=== PATIENT | male | born 1950 | race Caucasian/White ===

== ENCOUNTER → 2016-11-20 | Outpatient (CLI) | payer OTHER ==
[~2016-11-20] MED LIST: ACET1TAB84 PO; CIPR-255 PO; KETO2CRE14 TOP; METR-163 PO; NADO40TA PO; OXYC-57 PO; SNQ/25 PO
[2016-11-20 12:26] LABS: ALT/SGPT 19 U/L (12-78); BLOOD UREA NITROGEN 10 mg/dl (7-18); CALCIUM 8.4 mg/dl (8.5-10.1); CARBON DIOXIDE 24 mmol/L (21-32); CHLORIDE 109 mmol/L (98-107); CREATININE 0.93 mg/dl (0.60-1.40); GLUCOSE 118 mg/dl (70-99); POTASSIUM 3.9 mmol/L (3.5-5.1); SODIUM 143 mmol/L (136-145)
[2016-11-20 12:28] LABS: ALB/GLOB RATIO 0.7 (0.9-2); ALKALINE PHOSPHATASE 156 U/L (45-117); AST/SGOT 36 U/L (15-37)
== END | disposition home or self-care (01) ==
LOC: C.LAB 10:46
PROVIDERS: ATTEND Family Medicine
DX: I10 Essential (primary) hypertension (principal); E78.00 Pure hypercholesterolemia, unspecified

== ENCOUNTER → 2017-04-07 | Outpatient (CLI) | payer OTHER ==
[~2017-04-07] MED LIST changes: -METR-163 PO; -OXYC-57 PO
--- NOTE | 2017-04-07 07:45 | DIAGNOSTIC IMAGING REPORT ---
ULTRASOUND RIGHT UPPER QUADRANT ABDOMEN CLINICAL HISTORY: Cirrhosis. COMPARISON STUDY: Abdominal CT dated 07/14/2016. TECHNIQUE: Real-time, grayscale, and color flow sonography of the right upper quadrant of the abdomen was performed. Images are reviewed in the transverse and longitudinal planes. FINDINGS: Liver: The liver is cirrhotic in morphology and heterogeneous and echotexture. There is nodularity of the hepatic surface contour. There is no intrahepatic biliary ductal dilatation. There is no sonographic evidence of hepatic mass lesion. The main portal vein is patent. Gallbladder: The gallbladder is normal in appearance. No gallstones are identified. There is no gallbladder wall thickening or pericholecystic fluid. A sonographic Mcneill's sign is reportedly absent. The common bile duct measures up to 0.3 cm in diameter. Pancreas: Visualized portions of the pancreatic head and body are normal in appearance. The splenic vein is patent. Right kidney: Survey images of the right kidney demonstrate cortical atrophy. There is no hydronephrosis. Ascites: None. IMPRESSION: 1. The liver is cirrhotic in morphology and heterogeneous in echotexture. 2. No gallstones are identified. Electronically signed by: Anuj Dominguez M.D. 04/07/2017 7:44 AM Dictated Date/Time: 04/07/2017 7:42 AM
== END | disposition home or self-care (01) ==
LOC: C.ULTR 06:57
PROVIDERS: ATTEND Internal Medicine Gastroenterology
DX: K74.60 Unspecified cirrhosis of liver (principal)

== ENCOUNTER 2019-04-17 12:38 | Inpatient (IN) ==
--- OUTSIDE RECORDS SUMMARY | 2019-04-17 12:41 | External Medical Summary | Continuity of Care Document ---
:1950 Author Name Yocasta Leon, Provider Address Unavailable Unavailable , Care Team Providers Name Role Phone Jose Diez Unavailable [email or web address] ANDREA Leon, MARIFER Chirstie Unavailable Unavailable Unavailable Unavailable Unavailable Problems Decreased renal function (593.9) (N28.9) Cerebral vascular disease (437.9) (I67.9) Hematospermia (608.82) (R36.1) Raynaud's disease (443.0) (I73.00) Essential hypertension (401.9) (I10) Carotid atherosclerosis, bilateral (433.10) (I65.23) Hypercholesterolemia (272.0) (E78.00) Need for influenza vaccination (V04.81) (Z23) Right carotid bruit (785.9) (R09.89) Carotid artery stenosis, asymptomatic (433.10) (I65.29) Insomnia, persistent (307.42) (G47.00) Hyponatremia (276.1) (E87.1) Need for shingles vaccine (V04.89) (Z23) Special screening, prostate cancer (V76.44) (Z12.5) Need for hepatitis C screening test (V73.89) (Z11.59) 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) (N52.39) Osteoarthritis (715.90) (M19.90) Seborrheic dermatitis (690.10) (L21.9) Acid reflux disease (530.81) (K21.9) Suprapubic fullness (789.9) (R19.8) Alcoholic cirrhosis of liver (571.2) (K70.30) Enlarged gallbladder (575.8) (K82.8) Duodenal ulcer (532.90) (K26.9) Smokeless tobacco use (305.1) (Z72.0) Colonic polyp (211.3) (K63.5) Internal hemorrhoids (455.0) (K64.8) 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) Trigger ring finger of left hand (727.03) (M65.342) Vitamin D deficiency (268.9) (E55.9) Gout, joint (274.00) (M10.9) Allergies and Adverse Reactions Morphine Sulfate (Concentrate) SOLN (Allergy) Reaction: Other terazosin (Allergy) Reaction: Other traZODone HCl TABS (Allergy) Reaction: O ther Medications Propranolol HCl - 60 MG Oral Tablet; take 1 tablet by mouth every 12 hours Edward Flowers Start: 21-Sep-2018 Quantity: 60 Refills: 5 Furosemide 40 MG Oral Tablet; take 1 tab po daily SHAZIA Pina Start: 06-Mar-2015 Quantity: 60 Refills: 0 Shingrix 50 MCG Intramuscular Suspension Reconstituted; 0.5mL IM x1 at month 0 and then another at mo 2-6 for 2 total doses Edward Flowers Start: 18-Aug-2018 Quantity: 0.5 Refills: 1 Pantoprazole Sodium 40 MG Oral Tablet Delayed Release; One t ablet daily Start: 21-May-2016 Refills: 0 Tylenol Extra Strength 500 MG Oral Tablet Refills: 0 Ketoconazole 2 % External Cream; Apply t wice a day to affected areas for 4 weeks Edward Flowers Start: 11-Sep-2015 Quantity: 30 Refills: 1 Multiple Vitamins Oral Tablet; TAKE 1 TABLET DAILY. CA Ramirez Start: 06-Mar-2015 Quantity: 1 365 Tablet Bottle Refills: 0 Procedures History of Lung Surgery Status: Complete d History of Leg Repair Status: Completed History of Surgery Penis Status: Complet ed History of cataract surgery Status: Comp leted Immunizations Influenza On: 18-Sep-2012 12:09 Lot #: [id number], SANOFI PASTEUR HAV, HBV (Twinrix) On: 06-Mar-2015 17:05 Lot #: [id number], Weekend-[employer]-gogo CHRISTIAN HAV, HBV (Twinrix) On: 07-Apr-2015 9:20 Lot #: [id number], GLAXO MARSH CHRISTIAN HAV, HBV (Twinrix) On: 11-Sep-2015 9:55 Lot #: [id number], GLAXO MARSH CHRISTIAN Influenza On: 20-Nov-2015 Influenza On: 25-Jul-2016 11:11 Lot #: [id number], [employer] PASTEUR Prevnar 13 Intramuscular Suspension On: 09-Dec-2016 Zostavax 18065 UNT/0.65ML Subcutaneous Solution Reconstitute d On: 09-Dec-2016 Fluzone High-Dose Intramuscular Suspension On: 07-Jul-2017 9 :08 Lot #: [id number], SANOFI PASTEUR Pneumococcal polysaccharide vaccine, 23 valent On: 18-Aug-20 9:26 Lot #: [id number], [employer] Fluzone High-Dose 0.5 ML Intramuscular Suspension Pref illed Syringe On: 18-Aug-2018 9:27 Lot #: [id number], SANOFI PASTEUR Family History Father Family history of congestive heart failure (V17.49) (Z82.49) Status: Active Family history of glaucoma (V19.11) (Z83.511) Status: Active Family history of Status: Active Sister Family history of hypertension (V17.49) (Z82.49) Status: Act hu Social History - Smoking Status Former smoker Plan of Treatment Planned Encounters Appointment; Marifer Flowers M.D. Start: 16-Aug-2019 8:40 Req uest Planned Observations Planned Goals not documented Results No Known Results Results not documented Encounters Appointment; Marifer Flowers M.D. 15-Feb-2019 8:40 Encounter Diagnosis: Problem not documented Appointment; Marifer Flowers M.D. 18-Aug-2018 8:40 Encounter Diagnosis: Problem not documented Appointment; Mayito De Luna M.D. 11-Mar-2018 10:10 Encounter Diagnosis: Problem not documented Appointment; [facility], Studies NE1 13-Feb-2018 10:30 Encounter Diagnosis: Problem not documented Appointment; Marifer Flowers M.D. 12-Feb-2018 8:40 Encounter Diagnosis: Problem not documented Appointment; [facility] 16-Sep-2017 9:0 0 Encounter Diagnosis: Problem not documented Appointment; Marifer Flowers M.D. 13-Aug-2017 12:40 Encounter Diagnosis: Problem not documented Appointment; Marifer Flowers M.D. 07-Jul-2017 8:20 Encounter Diagnosis: Problem not documented Appointment; Marifer Flowers M.D. 16-Aug-2019 8:40 Encounter Diagnosis: Problem not documented
--- NOTE | 2019-04-17 13:22 | XRay Report ---
SINGLE VIEW CHEST CLINICAL HISTORY: Atypical chest pain. FINDINGS: An AP, portable, upright chest radiograph is compared to study dated 11/10/2015. The examina tion is degraded by portable technique and patient rotation. The cardiomediastinal silhouette is un remarkable noting atherosclerotic calcification of the thoracic aorta. Emphysema and chronic intersti tial thickening are similar to previous. There is chronic elevation of the right hemidiaphragm with a ssociated left basilar atelectasis. No large pleural effusion or pneumothorax is seen. The skeletal s tructures are osteopenic. There is chronic deformity of the right sided ribs. There are healed left p osterior rib fractures. IMPRESSION: 1. Emphysema. 2. No airspace consolidation or large pleural effusion is identified. Electronically signed by: Anuj Dominguez M.D. 04/17/2019 1:21 PM
[2019-04-17 13:37] LABS: Basophils # (auto) 0.05 K/uL (0-0.2); Basophils % (auto) 0.6 %; Eosinophils % (auto) 3.7 %; Hematocrit (blood only) 32.3 % (42-52); Hemoglobin 11.4 g/dL (14.0-18.0); Immature Granulocytes # (auto) 0.05 K/uL (0.00-0.02); Immature Granulocytes % (auto) 0.6 %; Lymphocytes # (auto) 1.47 K/uL (1.2-3.4); Lymphocytes % (auto) 17.9 %; Mean Corpuscular Hgb Conc 35.3 g/dL (32-36); Mean Corpuscular Volume 95.6 fL (80-100); Monocytes # (auto) 1.09 K/uL (0.11-0.59); Monocytes % (auto) 13.3 %; Neutrophils # (auto) 5.23 K/uL (1.4-6.5); Neutrophils % (auto) 63.9 %; Platelet Count 160 K/uL (130-400); RDW Coefficient of Variation 16.1 % (11.5-14.5); RDW Standard Deviation 55.9 fL (36.4-46.3); Red Blood Count 3.38 M/uL (4.7-6.1); White Blood Count 8.19 K/uL (4.8-10.8)
[2019-04-17 14:00] LABS: Albumin Globulin Ratio 0.4 (0.9-2); BUN Creatinine Ratio 14.5 (10-20); Bilirubin,Total 7.3 mg/dl (0.2-1); Calcium 7.6 mg/dl (8.5-10.1); Creatinine Clr Calc Pharmacy 88.3 ml/min; Est GFR (African American) 100.7; Est GFR (Non-African American) 86.9; Globulin 4.8 gm/dl (2.5-4.0); Magnesium 1.7 mg/dl (1.8-2.4); Phosphorus 2.9 mg/dl (2.5-4.9); Potassium 2.6 mmol/L (3.5-5.1); Total Protein 6.8 gm/dl (6.4-8.2); Troponin I 0.018 ng/ml (0-0.045)
[2019-04-17 14:06] LABS: Appearance Urine Clear (Clear); Bilirubin Urine Negative (Negative); Blood Urine Negative (Negative); Color Urine Dark Yellow; Glucose Urine UA Negative (Negative); Ketones Urine Negative (Negative); Leukocyte Esterase Urine Negative (Negative); Nitrite Urine Negative (Negative); Protein Urine Negative (Negative); Specific Gravity Urine 1.011 (1.000-1.030); Urobilinogen Urine Positive (Negative)
[2019-04-17 14:09] LABS: INR 1.5 (0.9-1.1); Prothrombin Time 15.1 Seconds (9.0-12.0)
[2019-04-17] MEDS ORDERED: IOVERSOL 100ml IV PRN (15:00)
[2019-04-17] MEDS ORDERED: MAGNESIUM SULFATE / D5W 1 GM/100 ML BAG IV ONE (15:05)
[2019-04-17] MEDS ORDERED: POTASSIUM CHLORIDE / WTR 10 MEQ/100 ML PLCT IV STA (15:05)
--- NOTE | 2019-04-17 15:30 | CT Scan Report ---
CT SCAN OF THE ABDOMEN AND PELVIS WITH IV CONTRAST CLINICAL HISTORY: Cirrhosis and ascites. COMPARISON STUDY: Abdominal CT dated 07/14/2016. TECHNIQUE: Following the IV administration of 94 cc of Optiray 320, CT scan of the abdomen and pelvi s is performed from the lung bases to the proximal femora. Images are reviewed in the axial, sagittal , and coronal planes. IV contrast was administered without complication. A dose lowering technique wa s utilized adhering to the principles of ALARA. CT DOSE: 1137.39 mGy.cm FINDINGS: Lung bases: The heart is normal in size and without pericardial effusion. The coronary arteries are d ensely calcified. Gynecomastia is noted. Emphysematous change is noted. There is bibasilar scarring/a telectasis. No airspace consolidation or pleural effusion is identified. There are esophageal varices . Liver: The contrast-enhanced liver is cirrhotic in morphology and heterogeneous in attenuation. There is nodularity of the hepatic surface contour. There is no intrahepatic biliary ductal dilatation. Th ere is near complete thrombosis of the main portal vein at and above the portosplenic confluence, bes t seen on image #162. There is associated cavernous transformation. The intrahepatic portal veins are patent. The hepatic veins are clear. Gallbladder: The gallbladder is distended. The gallbladder wall appears mildly thickened and hyperemi c. Spleen: The spleen is mildly enlarged, measuring 14.2 cm in length. Pancreas: Moderately atrophic and grossly unremarkable. Adrenal glands: Unremarkable. Kidneys: The contrast enhanced kidneys demonstrate mild cortical atrophy and are without hydronephros is. The kidneys enhance symmetrically. Abdominal vasculature: The abdominal aorta is normal in course and caliber noting advanced atheroscle rotic calcification. Stomach and bowel: The gastric wall appears significantly thickened and hyperemic. There is mild to m oderate colonic diverticulosis without CT evidence of acute diverticulitis. No bowel obstruction is s een. The appendix is well-visualized and normal. Peritoneum: There is no intraperitoneal free air. There is a large volume of abdominopelvic ascites. There are numerous perisplenic and gastric collaterals, as well as numerous omental and retroperitone al collaterals. There is an ascitic fluid containing umbilical hernia. Lymphadenopathy: None. Pelvic viscera: The bladder, prostate, and seminal vesicles are normal as imaged.. There is a right i nguinal hernia which contains ascitic fluid. A penile device is in place. The reservoir is located in the central pelvis. Skeletal structures: The skeletal structures are osteopenic. No lytic or blastic lesions are seen. Th ere is avascular necrosis of the femoral heads, right greater than left. IMPRESSION: 1. The liver is cirrhotic in morphology and heterogeneous in attenuation. 2. There is a large volume of abdominopelvic ascites and mild splenomegaly indicating portal hyperten mario. 3. There are esophageal varices, perigastric and perisplenic varices, as well as omental and retroper itoneal collateral vessels. 4. 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 The intrahepatic portal vessels are clear. 5. The gastric wall appears significantly thickened and hyperemic suggesting gastritis. Clinical robert elation will be required. This could be further assessed with endoscopy if clinically warranted. 6. The gallbladder is distended. Mild gallbladder wall thickening and hyperemia are nonspecific findi ngs and likely related to cirrhosis and ascites. Correlation with clinical findings and serum bilirub in levels will be required. 7. 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 8. Colonic diverticulosis without CT evidence of acute diverticulitis. 9. Emphysema. 10. Additional findings as above. Electronically signed by: Anuj Dominguez M.D. 04/17/2019 3:28 PM
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
[2019-04-17] MEDS ORDERED: ALUMINUM/MAGNESIUM SUSP 30 ML UDC PO PRN (18:24)
[2019-04-17] MEDS ORDERED: ONDANSETRON INJ 2 MG/ML 2 ML VIAL IV PRN (18:24)
[2019-04-17] MEDS: SODIUM CHLORIDE 0.9% 1000ML 1,000 ML IV SCH (19:18)
[2019-04-17] MEDS: CEFEPIME 1,000 MG in SYRINGE 0 ML IV SCH (19:20)
[2019-04-17] MEDS: POTASSIUM CHLORIDE / WTR 10 MEQ/100 ML PLCT IV SCH ×2 (19:25→20:47)
[2019-04-17] MEDS: CALCIUM GLUCONATE 10% 1,000 MG in SODIUM CHLORIDE 0.9% 50 ML IV SCH (19:28)
[2019-04-17] MEDS: PROPRANOLOL HCL 20 MG TAB PO SCH (19:33)
[2019-04-18] MEDS: CALCIUM GLUCONATE 10% 1,000 MG in SODIUM CHLORIDE 0.9% 50 ML IV SCH ×2 (00:59→06:28)
[2019-04-18] MEDS: CEFEPIME 1,000 MG in SYRINGE 0 ML IV SCH ×2 (03:08→11:23)
[2019-04-18 06:59] LABS: Basophils # (auto) 0.04 K/uL (0-0.2); Basophils % (auto) 0.6 %; Eosinophils % (auto) 4.5 %; Hematocrit (blood only) 30.7 % (42-52); Hemoglobin 10.6 g/dL (14.0-18.0); Immature Granulocytes # (auto) 0.02 K/uL (0.00-0.02); Immature Granulocytes % (auto) 0.3 %; Lymphocytes # (auto) 1.11 K/uL (1.2-3.4); Lymphocytes % (auto) 16.5 %; Mean Corpuscular Hgb Conc 34.5 g/dL (32-36); Mean Corpuscular Volume 95.3 fL (80-100); Mean Platelet Volume 10.1 fL (7.4-10.4); Monocytes # (auto) 1.01 K/uL (0.11-0.59); Neutrophils # (auto) 4.25 K/uL (1.4-6.5); Neutrophils % (auto) 63.1 %; Platelet Count 122 K/uL (130-400); RDW Coefficient of Variation 16.3 % (11.5-14.5); RDW Standard Deviation 56.4 fL (36.4-46.3); Red Blood Count 3.22 M/uL (4.7-6.1); White Blood Count 6.73 K/uL (4.8-10.8)
[2019-04-18 07:44] LABS: Albumin Globulin Ratio 0.4 (0.9-2); Albumin Level 1.8 gm/dl (3.4-5.0); BUN Creatinine Ratio 14.6 (10-20); Bilirubin,Total 6.4 mg/dl (0.2-1); Calcium 7.7 mg/dl (8.5-10.1); Creatinine Clr Calc Pharmacy 96.1 ml/min; Est GFR (African American) 105.5; Globulin 4.3 gm/dl (2.5-4.0); Magnesium 1.8 mg/dl (1.8-2.4); Potassium 2.6 mmol/L (3.5-5.1); Total Protein 6.1 gm/dl (6.4-8.2)
[2019-04-18] MEDS ORDERED: POTASSIUM CHLORIDE 20 MEQ TABCR PO STA (07:49)
[2019-04-18] MEDS: MAGNESIUM OXIDE 400 MG TAB PO SCH ×2 (08:19→21:00)
[2019-04-18] MEDS: POTASSIUM CHLORIDE 20 MEQ TABCR PO SCH ×3 (08:19→21:00)
[2019-04-18] MEDS: PROPRANOLOL HCL 20 MG TAB PO SCH ×2 (08:19→21:00)
[2019-04-18] MEDS: PANTOprazole 40 MG TAB PO SCH (08:19)
--- NOTE | 2019-04-18 08:40 | Family Medicine Progress Note ---
Date of Service April 18, 2019 Assessment & Plan (1) Portal vein thrombosis: Mr. Fortune is a 68yo with a PMHx of significant for alcoholic cirrhosis who presented with an acute exacerbation of his lower extremity edema and increasing abdominal girth. He was found to have portal vein thrombosis. PORTAL VEIN THROMBOSIS -Noted on CT, thrombus in main portal vein -likely cause of presenting symptoms -GI on board, per recs will refrain from anticoagulation given need for EGD on 04/19 -likely contributing to new onset esophageal, perigastric and perisplenic varices also noted on CT -will continue to monitor ASCITES/CIRRHOSIS -Ascites likely increasing due to thrombus in portal vein -Last drink was 5 years ago. -GI to perform possible paracentesis 04/19 -SBP empiric treatment with cefepime originally, now changed to Rocephin -No current peritoneal signs, afebrile -will continue to monitor VARICES (esophageal, perigastric, perisplenic) -Noted on CT, new onset, likely due to thrombosis -No signs of bleeding currently (BP normal, nontachycardic, H/H stable) -EGD to be done 04/19, appreciate GI recs -continue propranolol, PPI -will continue to monitor ELECTROLYTE ABNORMALITIES (HYPOKALEMIA, HYPOCALCEMIA, HYPOMAGNESEMIA) -replace as needed -likely cause of mild QT prolongation noted on admission (486). Continue daily EKGs -Will continue to monitor electrolyte levels DVT proph: SCDs FEN/GI: low sodium diet CODE STATUS: FULL Supervising Physician Co-Signing Physician Notes I personally examined the patient and verified all lebron points of history and exam, discussed case, and agree with decision making with Dr Lazcano. feeling ok. discussed w GI, input greatly appreciated. vitals noted nad breathing unlabored abd swollen no pallor mild icterus good sense of humor cirrhosis/ascites - abrupt worsening appearing related to portal thrombosis - covering for SBP as this is a possibility too, but seems most likely to be portal vein thrombosis related. scopes and paracentesis tomorrow then if not high risk would start anticoagulation. approaching long qt - replace K, mag. follow Subjective Mr. Fortune states he came to the ED because he noted that he was swollen but his urine was dark. Still feels bloated and feels like his abdominal distention has been increasing. Denies fevers, chills or night sweats, chest pain, SOB or palps. Review of Systems Review of Systems: All systems reviewed & are unremarkable except as noted in HPI & below Physical Exam Physical Exam: General: Alert, oriented. No acute distress HEENT: NC/AT, no yellowing of sclera noted. Chest: Nontender to palpation. CV: RRR, Normal s1, s2. No murmurs appreciated Resp: Breath sounds clear bilaterally with some fine crackles at right base. Abdomen: Soft, nontender, distended. No guarding. No organomegaly appreciated. Extremities: +1 edema, no calf tenderness bilaterally Results & Data Vital Signs (Past 12 Hours) Vital Signs Temp Pulse Resp BP BP Pulse Ox 04/18/19 07:39 36.7 C 70 18 142/68 H 93 04/18/19 03:11 36.9 C 71 18 124/57 L 94 04/17/19 23:32 36.9 C 71 20 120/62 92 Laboratory Results Laboratory Results - last 24 hr 04/17/19 04/17/19 04/17/19 13:16 13:16 13:16 WBC 8.19 RBC 3.38 L Hgb 11.4 L Hct 32.3 L MCV 95.6 MCH 33.7 MCHC 35.3 RDW Std Deviation 55.9 H RDW Coeff of Ramses 16.1 H Plt Count 160 MPV 10.0 Immature Gran % (Auto) 0.6 Neut % (Auto) 63.9 Lymph % (Auto) 17.9 [place] % (Auto) 13.3 Eos % (Auto) 3.7 Baso % (Auto) 0.6 Immature Gran # (Auto) 0.05 H Neut # (Auto) 5.23 Lymph # (Auto) 1.47 [place] # (Auto) 1.09 H Eos # (Auto) 0.30 Baso # (Auto) 0.05 PT 15.1 H INR 1.5 H Sodium 135 L Potassium 2.6 L Chloride 94 L Carbon Dioxide 32 Anion Gap 10.0 BUN 13 Creatinine 0.91 Est Cr Clr Drug Dosing 88.3 Est GFR ( Amer) 100.7 Est GFR (Non-Af Amer) 86.9 BUN/Creatinine Ratio 14.5 Glucose 91 Calcium 7.6 L Phosphorus 2.9 Magnesium 1.7 L Total Bilirubin 7.3 H Direct Bilirubin AST 42 H ALT 13 Alkaline Phosphatase 140 H Troponin I 0.018 NT-Pro-B Natriuret Pep 767 Total Protein 6.8 Albumin 2.0 L Globulin 4.8 H Albumin/Globulin Ratio 0.4 L Lipase 203 Specimen Hemolysis Urine Color Urine Appearance Urine pH Ur Specific [place] Urine Protein Urine Glucose (UA) Urine Ketones Urine Blood Urine Nitrite Urine Bilirubin Urine Urobilinogen Ur Leukocyte Esterase Ethyl Alcohol mg/dL 04/17/19 04/17/19 04/18/19 13:17 13:50 06:46 WBC 6.73 RBC 3.22 L Hgb 10.6 L Hct 30.7 L MCV 95.3 MCH 32.9 MCHC 34.5 RDW Std Deviation 56.4 H RDW Coeff of Ramses 16.3 H Plt Count 122 L MPV 10.1 Immature Gran % (Auto) 0.3 Neut % (Auto) 63.1 Lymph % (Auto) 16.5 [place] % (Auto) 15.0 Eos % (Auto) 4.5 Baso % (Auto) 0.6 Immature Gran # (Auto) 0.02 Neut # (Auto) 4.25 Lymph # (Auto) 1.11 L [place] # (Auto) 1.01 H Eos # (Auto) 0.30 Baso # (Auto) 0.04 PT INR Sodium Potassium Chloride Carbon Dioxide Anion Gap BUN Creatinine Est Cr Clr Drug Dosing Est GFR ( Amer) Est GFR (Non-Af Amer) BUN/Creatinine Ratio Glucose Calcium Phosphorus Magnesium Total Bilirubin Direct Bilirubin AST ALT Alkaline Phosphatase Troponin I NT-Pro-B Natriuret Pep Total Protein Albumin Globulin Albumin/Globulin Ratio Lipase Specimen Hemolysis Urine Color Dark Yellow Urine Appearance Clear Urine pH 7.0 Ur Specific [place] 1.011 Urine Protein Negative Urine Glucose (UA) Negative Urine Ketones Negative Urine Blood Negative Urine Nitrite Negative Urine Bilirubin Negative Urine Urobilinogen Positive H Ur Leukocyte Esterase Negative Ethyl Alcohol mg/dL < 3.0 04/18/19 06:46 WBC RBC Hgb Hct MCV MCH MCHC RDW Std Deviation RDW Coeff of Ramses Plt Count MPV Immature Gran % (Auto) Neut % (Auto) Lymph % (Auto) [place] % (Auto) Eos % (Auto) Baso % (Auto) Immature Gran # (Auto) Neut # (Auto) Lymph # (Auto) [place] # (Auto) Eos # (Auto) Baso # (Auto) PT INR Sodium 135 L Potassium 2.6 L Chloride 95 L Carbon Dioxide 35 H Anion Gap 5.0 BUN 12 Creatinine 0.83 Est Cr Clr Drug Dosing 96.1 Est GFR ( Amer) 105.5 Est GFR (Non-Af Amer) 91.0 BUN/Creatinine Ratio 14.6 Glucose 81 Calcium 7.7 L Phosphorus Magnesium 1.8 Total Bilirubin 6.4 H Direct Bilirubin AST 36 ALT 12 Alkaline Phosphatase 123 H Troponin I NT-Pro-B Natriuret Pep Total Protein 6.1 L Albumin 1.8 L Globulin 4.3 H Albumin/Globulin Ratio 0.4 L Lipase Specimen Hemolysis Urine Color Urine Appearance Urine pH Ur Specific [place] Urine Protein Urine Glucose (UA) Urine Ketones Urine Blood Urine Nitrite Urine Bilirubin Urine Urobilinogen Ur Leukocyte Esterase Ethyl Alcohol mg/dL Medications Administered Home Medications acetaminophen [Tylenol Extra Strength] 1,000 mg PO DAILY 01/19/19 [History Confirmed 04/17/19] furosemide 40 mg PO QAM 01/19/19 [History Confirmed 04/17/19] multivitamin 1 tab PO WK 01/19/19 [History Confirmed 04/17/19] pantoprazole 40 mg PO QAM 01/19/19 [History Confirmed 04/17/19] propranolol 60 mg PO BID 01/19/19 [History Confirmed 04/17/19] Active Medications Al Hydrox/Mg Hydrox/Simethicone (Maalox) 15 ml PO Q4H PRN PRN Reason: Dyspepsia Stop: 05/17/19 18:23 Sodium Chloride (Nss 1000ml) 1,000 mls @ 60 mls/hr IV .[id number] DAVEY Stop: 05/17/19 18:23 Last Admin: 04/17/19 19:18 Dose: 60 mls/hr Documented by: Cefepime HCl 1,000 mg/ Syringe 11.3 mls @ 5.5 mls/min IV Q8H DAVEY; Protocol Stop: 04/27/19 18:59 Last Admin: 04/18/19 03:08 Dose: 5.5 mls/min Documented by: Ioversol (Optiray 320 100ml) 94 ml IV ONCE PRN PRN Reason: Interaction Checking Stop: 04/21/19 14:59 Last Admin: 04/17/19 15:00 Dose: 1 ml Documented by: Magnesium Oxide (Mag-Ox) 400 mg PO BID [facility] Stop: 04/19/19 07:59 Last Admin: 04/18/19 08:19 Dose: 400 mg Documented by: Multivitamins (Multivitamin Tab) 1 tab PO Mo@0900 [facility] Stop: 05/19/19 08:59 Ondansetron HCl (Zofran) 4 mg IV Q6H PRN PRN Reason: Nausea Stop: 05/17/19 18:23 Pantoprazole Sodium (Protonix) 40 mg PO QAM [facility] Stop: 05/18/19 08:59 Last Admin: 04/18/19 08:19 Dose: 40 mg Documented by: Potassium Chloride (Klor-Con M20) 20 meq PO TID [facility] Stop: 04/19/19 07:59 Last Admin: 04/18/19 08:19 Dose: 20 meq Documented by: Propranolol HCl (Inderal) 60 mg PO BID [facility] Stop: 05/17/19 20:59 Last Admin: 04/18/19 08:19 Dose: 60 mg Documented by: PG Care Time/CCT Total # of Minutes Spent Total Time Spent with Patient: Total time spent is greater than 50% in loan coordinator rdination of care (as documented) at patient's floor/unit and/or counseling patient: Resident Activity Tracking Resident Involvement: Resident Care Provided Care Provided: Adult Hospital Medicine
[2019-04-18] MEDS: SODIUM CHLORIDE 0.9% 1000ML 1,000 ML IV SCH (11:23)
[2019-04-18] MEDS ORDERED: cefTRIAXone SODIUM 1,000 MG in DEXTROSE 5% 50 ML IV SCH (14:00)
[2019-04-18] MEDS: cefTRIAXone SODIUM 2,000 MG in DEXTROSE 5% 50 ML IV SCH (14:25)
--- NOTE | 2019-04-18 15:04 | Gastroenterology Progress Note ---
Date of Service April 18, 2019 Assessment & Plan (1) Ascites: Recommend abx to cover SBP and diagnostic and therapeutic tap on friday. PV thrombosis--chronic and may benefit from anticoagulation but would recommend EGD friday to assess size of varice and see is any stomach pathology to assess risk of anticoagulation varices--EGD friday stomach thickening--EGD friday hx of esophagitis and duodenitis--po ppi ETOH cirrhosiis--not drinking Discussed redommendations with DR Soni and residents. Subjective cc f/u asctes, and PV thrombosis HPI Pt denies abd pain. He has some shortness of breath secondary to large abdomen. Middle daughter present for H and P. Review of Systems Respiratory: + dyspnea secondary to ascites abd girth Cardiovascular: no chest pain Physical Exam Constitutional: WD/WN, vitals as above Respiratory: normal respiratory effort, lungs clear to auscultation Cardiovascular: Rate/Rhythm: regular rate and regular rhythm Gastrointestinal (Abdomen): abd pos bs, protuberant but not tense, no guarding nor rebound Results & Data Vital Signs (Past 12 Hours) Vital Signs Temp Pulse Pulse Resp BP Pulse Ox 04/18/19 11:47 36.5 C 69 24 124/60 91 04/18/19 07:39 36.7 C 70 18 142/68 H 93 04/18/19 07:15 70 04/18/19 03:11 36.9 C 71 18 124/57 L 94 (1) Ascites Ascites type: due to alcoholic cirrhosis Qualified Code(s): K70.31 - Alcoholic cirrhosis of liver with ascites
[2019-04-19] MEDS: SODIUM CHLORIDE 0.9% 1000ML 1,000 ML IV SCH ×2 (04:30→17:37)
[2019-04-19 06:39] LABS: Basophils # (auto) 0.06 K/uL (0-0.2); Eosinophils # (auto) 0.35 K/uL (0-0.5); Eosinophils % (auto) 5.6 %; Hematocrit (blood only) 29.3 % (42-52); Immature Granulocytes # (auto) 0.02 K/uL (0.00-0.02); Immature Granulocytes % (auto) 0.3 %; Lymphocytes # (auto) 1.35 K/uL (1.2-3.4); Lymphocytes % (auto) 21.7 %; Mean Corpuscular Hgb Conc 34.1 g/dL (32-36); Mean Platelet Volume 9.5 fL (7.4-10.4); Monocytes # (auto) 0.93 K/uL (0.11-0.59); Neutrophils % (auto) 56.4 %; Platelet Count 113 K/uL (130-400); RDW Coefficient of Variation 16.5 % (11.5-14.5); RDW Standard Deviation 58.1 fL (36.4-46.3); Red Blood Count 3.02 M/uL (4.7-6.1); White Blood Count 6.21 K/uL (4.8-10.8)
[2019-04-19 06:47] LABS: INR 1.7 (0.9-1.1); Prothrombin Time 16.4 Seconds (9.0-12.0)
[2019-04-19 07:16] LABS: Albumin Level 1.7 gm/dl (3.4-5.0); BUN Creatinine Ratio 13.1 (10-20); Calcium 7.4 mg/dl (8.5-10.1); Creatinine Clr Calc Pharmacy 95.8 ml/min; Est GFR (Non-African American) 90.6; Magnesium 1.9 mg/dl (1.8-2.4); Potassium 3.1 mmol/L (3.5-5.1)
[2019-04-19 07:17] LABS: Albumin Globulin Ratio 0.4 (0.9-2); Bilirubin,Total 4.5 mg/dl (0.2-1); Total Protein 5.7 gm/dl (6.4-8.2)
[2019-04-19] MEDS: PROPRANOLOL HCL 20 MG TAB PO SCH ×2 (08:26→19:37)
[2019-04-19] MEDS: PANTOprazole 40 MG TAB PO SCH (08:26)
[2019-04-19] MEDS ORDERED: MULTIVITAMIN TAB PO SCH (09:00)
[2019-04-19] MEDS: ALBUMIN 25% 50 ML IV SCH ×2 (11:02→12:00)
--- NOTE | 2019-04-19 11:53 | Ultrasound Report ---
ULTRASOUND-GUIDED DIAGNOSTIC AND THERAPEUTIC PARACENTESIS: HISTORY: Ascites. Procedure: The procedure and its risks, benefits and alternatives were discussed with the patient and written informed consent was obtained. Preliminary ultrasound of the abdomen was performed to determ ine a safe needle entry site. The right lower quadrant was prepped and draped in the usual sterile fashion. 1% Lidocaine was used f or local anesthesia. A paracentesis needle-sheath was inserted into the peritoneal space using ultras ound guidance. The needle was removed and the sheath was connected to tubing and a vacuum suction dev ice. A total of 6 liters of yellow ascites was aspirated. The sheath was removed and a sterile dressi ng applied. The patient tolerated the procedure well and there were no immediate complications. IMPRESSION: Ultrasound-guided therapeutic and diagnostic paracentesis with aspiration of 6 liters of ascites. Electronically signed by: Celestino Oconnor M.D. 04/19/2019 11:52 AM
[2019-04-19 12:15] LABS: Albumin Peritoneal Fluid < 0.6 g/dl; Total Protein Peritoneal Fluid 1.1 g/dl
[2019-04-19 12:50] LABS: Appearance Peritoneal Fluid HAZY; Color Peritoneal Fluid YELLOW; Mononuclear WBC Peritoneal 86.3 %; Polynuclear WBC Peritoneal 13.7 %; RBC Peritoneal Fluid (A) < 3000 /uL; WBC Peritoneal Fluid (A) 211 /ul (0-300)
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
[2019-04-19] MEDS ORDERED: fentaNYL citrate 100 MCG/2 ML VIAL ONE (15:36)
[2019-04-19] MEDS ORDERED: LIDOCAINE HCL 2% 2 ML VIAL/AMP(20MG/ML) INFIL ONE (15:38)
[2019-04-19] MEDS ORDERED: PROPOFOL IV EMULSION 10 MG/ML 20 ML VIAL IV ONE (15:38)
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
--- NOTE | 2019-04-19 16:01 | GI REPORT ---
Patient Name: Nicolás Fortune Procedure Date: 04/19/2019 3:51 PM Date of : 1950 Admit Type: Inpatient Age: 68 Gender: Male Attending MD: Yobany Agrawal MD Procedure: Upper GI endoscopy Providers: Yobany Agrawal MD Referring MD: Emily Koroma Indications: Cirrhosis Medicines: Propofol total dose 120 mg IV, Lidocaine 80 mg IV Complications: No immediate complications. Estimated Blood Loss: Estimated blood loss: none. Procedure: Pre-Anesthesia Assessment: - Prior to the procedure, a History and Physical was performed, and patient medications, allergies and sensitivities were reviewed. The patient's tolerance of previous anesthesia was reviewed. - The risks and benefits of the procedure and the sedation options and risks were discussed with the patient. All questions were answered and informed consent was obtained. After obtaining informed consent, the endoscope was passed under direct vision. Throughout the procedure, the patient's blood pressure, pulse, and oxygen saturations were monitored continuously. The Endoscope was introduced through the mouth, and advanced to the second part of duodenum. The upper GI endoscopy was accomplished without difficulty. The patient tolerated the procedure well. Findings: No varices. The Z-line was regular and was found 41 cm from the incisors. Diffuse moderately erythematous mucosa without bleeding was found in the entire examined stomach. The examined duodenum was normal. Impression: - Z-line regular, 41 cm from the incisors. - Erythematous mucosa in the stomach. - Normal examined duodenum. - No specimens collected. Recommendation: - Return patient to [facility] for [facility] care. Yobany Agrawal M.D. Yobany Agrawal MD 04/19/2019 4:00:54 PM This report has been signed electronically. Note Initiated On: 04/19/2019 3:51 PM Number of Addenda: 0 I attest to the content of the Intraoperative Record and orders documented therein, exceptions below {[id number]}
--- NOTE | 2019-04-19 16:09 | Anesthesiology Progress Note ---
Date of Service April 19, 2019 Anesthesia Post Procedure Vital Signs Vital Signs: Temp Pulse Resp BP Pulse Ox 04/19/19 14:47 37.0 C 64 18 123/67 100 04/19/19 11:06 36.6 C 63 17 124/58 L 95 04/19/19 07:41 36.9 C 67 18 121/58 L 93 04/19/19 04:19 37.0 C 66 21 113/61 95 04/18/19 23:45 37.3 C 69 21 113/60 92 04/18/19 19:43 37.1 C 73 16 109/54 L 92 Transfer of Care Handoff Completed per policy Notes Mental Status: alert / awake / arousable Patient Amnestic to Procedure: Yes Nausea / Vomiting: adequately controlled Pain: adequately controlled Airway Patency, RR, SpO2: stable & adequate BP & HR: stable & adequate Hydration State: stable & adequate Anesthetic Complications: no major complications apparent
--- NOTE | 2019-04-19 16:38 | Progress Note ---
DATE: 04/19/2019 The patient has portal vein thrombosis and ascites. He underwent an EGD today to assess his esophageal varices before considering a blood thinner for the portal vein thrombosis. Laboratory shows hemoglobin of 10.0, platelet count 113,000, bilirubin is 4.5, albumin 1.7. Peritoneal fluid analysis shows albumin of less than 0.6 g/dL. Peritoneal white cell total is 211 indicating this transudate. EGD today showed no esophageal varices. He does have some portal hypertensive gastropathy. The plan is to consult Hematology to help decide which blood thinner to place him on given his cirrhosis and portal vein thrombosis.
--- NOTE | 2019-04-19 16:58 | Family Medicine Progress Note ---
Date of Service April 19, 2019 Assessment & Plan (1) Portal vein thrombosis: Nicolás Fortune is a 68-year-old male with a past medical history of alcoholic cirrhosis, alcohol abuse in remission for 5 years, and hypertension who presented with increasing lower extremity edema and ascites. He was found to have chronic portal vein thrombosis. Portal vein thrombosis CTabdomen shows main portal vein thrombus, likely chronic GI consulted, performed paracentesis and EGD today. EGD shows no esophageal varices and a diffuse moderately erythematous gastric mucosa without active bleeding and normal duodenum. Paracentesis was performed with removal of 6 L of ascitic fluid and sent for diagnostic study Given that his thrombosis appears chronic, you may or may not benefit from an anticoagulation regimen. Hematology consulted by GI for anticoagulation recommendations, consult pending. Appreciate recommendations. Ascites Secondary to alcohol abuse in remission empiric SBP treatment with cefepime narrowed to Rocephin 2 g daily. No history of SBP. No signs of SBP. Unclear trigger to acute worsening, no dietary indiscretion per patient. Follow diagnostic tap. Greatly improved following paracentesis. No signs of bleeding. Was on Lasix 40 mg p.o. daily prior to admission. Can consider increasing or balancing with spironolactone increased ascitic control Continue to follow pressures in the setting of ascitic fluid loss, is been receiving albumin 50 mils per hour x2. Esophageal, perigastric, perisplenic varices noted on CT No signs of bleeding at this time, no varices noted on EGD Continue propranolol 60 mg twice daily - Pantoprazole 40 mg daily Hypokalemia Mg 1.9 - K 3.1 today. Replete with potassium chloride 20 MeQ PO BID - MagOx 400mg qHS DVT prophylaxis: SCDs, anticoagulation FEN/GI: Sodium restricted diet Code Status: Full (2) Ascites: (3) Cirrhosis: (4) Hypokalemia: (5) Encounter for pre-operative examination: (6) Hypocalcemia: (7) DVT prophylaxis: (8) Hypomagnesemia: Supervising Physician Co-Signing Physician Notes Resident Physician Supervision Note: I independently interviewed and examined the patient and verified the lebron history and physical, reviewed labs and image studies, discussed the case with the resident Dr. Mast and agree with the findings and care plan. Subjective Nicolás reports he feels okay today. He reports he feels bloated, and has felt bloated for several weeks. He denies pain. He says he is not short of breath, but can tell if the fluid in his abdomen somewhat limits a deep full breath. His last paracentesis was years ago. He denies any abdominal pain, nausea, bleeding, chest pain, dyspnea, lightheadedness. He is awaiting paracentesis. He denies any recent change in diet or other factors which may have contributed to his increased ascites. No questions or concerns at time of visit Review of Systems Review of Systems: Constitutional: Denies fever, chills, malaise Eyes: Denies vision change ENT: Denies ear pain, sore throat, sinus pain Cardiovascular: Denies Chest pain, chest pressure, palpitations. Endorses some bilateral ankle swelling. Respiratory: Denies shortness of breath, cough, sputum production, difficulty breathing Gastrointestinal: Denies abdominal pain, nausea, vomiting. Endorses abdominal swelling. Genitourinary: Denies pain with urination, urinary urgency, urinary frequency Musculoskeletal: Denies weakness, muscle aches/pain, joint aches/pain Integumentary:Denies rash, lesions, bruising Neurological: Denies headache, numbness, tingling, focal weakness Physical Exam Physical Exam: General: A&Ox3. NAD. Cooperative. HEENT: Atraumatic, normocephalic. Pulm: CTAB A&P. -wheezes, -rales, -rhonchi. Symmetrical chest rise. No increase work of breathing. No respiratory distress. Cardiac: RRR, -mrg. Radial pulses intact and symmetrical. Abdominal: Distended, fluid wave present. Nontender. Extremity: Trace ankle edema bilaterally. No pain. No change lower extremity circumference equal and without warmth or erythema. Results & Data Vital Signs (Past 12 Hours) Vital Signs Temp Pulse Resp BP Pulse Ox 04/19/19 16:31 65 18 127/61 95 04/19/19 16:16 66 18 130/69 94 04/19/19 16:01 37.0 C 66 18 113/65 94 04/19/19 14:47 37.0 C 64 18 123/67 100 04/19/19 11:06 36.6 C 63 17 124/58 L 95 04/19/19 07:41 36.9 C 67 18 121/58 L 93 PG Care Time/CCT Total # of Minutes Spent Total Time Spent with Patient: Total time spent is greater than 50% in coordination of care (as documented) at patient's floor/unit and/or counseling p atient: Resident Activity Tracking Resident Involvement: Resident Care Provided Care Provided: Adult Hospital Medicine (1) Ascites Ascites type: due to alcoholic cirrhosis Qualified Code(s): K70.31 - Alcoholic cirrhosis of liver with ascites (2) Cirrhosis Ascites presence: with ascites Hepatic cirrhosis type: unspecified hepatic cirrhosis Qualified Code(s): K74.60 - Unspecified cirrhosis of liver; R18.8 - Other ascites
[2019-04-19] MEDS ORDERED: Heparin IV Standard *NO* Bolus IV SCH (17:15)
[2019-04-19] MEDS: cefTRIAXone SODIUM 2,000 MG in DEXTROSE 5% 50 ML IV SCH (17:35)
[2019-04-19] MEDS: POTASSIUM CHLORIDE 10 MEQ TABCR PO SCH ×2 (17:37→19:37)
[2019-04-19] MEDS ORDERED: Heparin Adult STANDARD Wt-Based Dextrose 5% 25,000 units/500 mL IV SCH (18:45)
[2019-04-19 19:12] LABS: Partial Thromboplastin Ratio 1.4; Partial Thromboplastin Time 37.4 Seconds (21.0-31.0)
[2019-04-19] MEDS ORDERED: MAGNESIUM OXIDE 400 MG TAB PO SCH (21:00)
[2019-04-20 01:36] LABS: Basophils # (auto) 0.04 K/uL (0-0.2); Basophils % (auto) 0.7 %; Eosinophils # (auto) 0.38 K/uL (0-0.5); Eosinophils % (auto) 6.7 %; Hematocrit (blood only) 28.2 % (42-52); Hemoglobin 9.6 g/dL (14.0-18.0); Immature Granulocytes # (auto) 0.03 K/uL (0.00-0.02); Immature Granulocytes % (auto) 0.5 %; Lymphocytes % (auto) 22.8 %; Mean Corpuscular Volume 96.6 fL (80-100); Mean Platelet Volume 9.8 fL (7.4-10.4); Monocytes # (auto) 0.73 K/uL (0.11-0.59); Monocytes % (auto) 12.8 %; Neutrophils # (auto) 3.21 K/uL (1.4-6.5); Neutrophils % (auto) 56.5 %; Platelet Count 106 K/uL (130-400); RDW Coefficient of Variation 16.4 % (11.5-14.5); RDW Standard Deviation 57.7 fL (36.4-46.3); Red Blood Count 2.92 M/uL (4.7-6.1); White Blood Count 5.69 K/uL (4.8-10.8)
[2019-04-20 01:53] LABS: Albumin Level 1.8 gm/dl (3.4-5.0); BUN Creatinine Ratio 12.5 (10-20); Calcium 7.3 mg/dl (8.5-10.1); Creatinine Clr Calc Pharmacy 107.3 ml/min; Est GFR (Non-African American) 94.9; Magnesium 1.9 mg/dl (1.8-2.4); Potassium 3.4 mmol/L (3.5-5.1)
[2019-04-20 02:01] LABS: Albumin Globulin Ratio 0.5 (0.9-2); Bilirubin,Total 4.4 mg/dl (0.2-1); Globulin 3.7 gm/dl (2.5-4.0); Total Protein 5.5 gm/dl (6.4-8.2)
[2019-04-20 02:27] LABS: INR 1.8 (0.9-1.1); Prothrombin Time 17.8 Seconds (9.0-12.0)
[2019-04-20 02:28] LABS: Partial Thromboplastin Ratio > 5.1
[2019-04-20 02:29] LABS: Partial Thromboplastin Time > 139.0 Seconds (21.0-31.0)
[2019-04-20 04:33] LABS: Partial Thromboplastin Ratio > 5.1
[2019-04-20 04:39] LABS: Partial Thromboplastin Time > 139.0 Seconds (21.0-31.0)
[2019-04-20 05:44] LABS: Partial Thromboplastin Ratio > 5.1
[2019-04-20 05:49] LABS: Partial Thromboplastin Time > 139.0 Seconds (21.0-31.0)
[2019-04-20 06:44] LABS: Partial Thromboplastin Ratio 3.4
[2019-04-20 07:08] LABS: Partial Thromboplastin Time 92.5 Seconds (21.0-31.0)
--- NOTE | 2019-04-20 08:05 | Anesthesiology Progress Note ---
Date of Service April 20, 2019 Anesthesia Post Procedure Vital Signs Vital Signs: Temp Pulse Resp BP Pulse Ox 04/20/19 03:55 36.8 C 67 19 111/55 L 97 04/19/19 23:41 36.8 C 69 20 110/51 L 90 04/19/19 19:42 36.9 C 65 19 107/56 L 92 04/19/19 17:00 37.1 C 65 19 122/65 96 04/19/19 16:31 65 18 127/61 95 04/19/19 16:16 66 18 130/69 94 04/19/19 16:01 37.0 C 66 18 113/65 94 04/19/19 14:47 37.0 C 64 18 123/67 100 04/19/19 11:06 36.6 C 63 17 124/58 L 95 Notes Mental Status: alert / awake / arousable and participated in evaluation Patient Amnestic to Procedure: Yes Nausea / Vomiting: adequately controlled Pain: adequately controlled Airway Patency, RR, SpO2: stable & adequate BP & HR: stable & adequate Hydration State: stable & adequate Anesthetic Complications: no major complications apparent and Pt Satisfied with anesthetic care
[2019-04-20] MEDS: POTASSIUM CHLORIDE 10 MEQ TABCR PO SCH (08:12)
[2019-04-20] MEDS: PROPRANOLOL HCL 20 MG TAB PO SCH (08:12)
[2019-04-20] MEDS: PANTOprazole 40 MG TAB PO SCH (08:13)
[2019-04-20 10:36] LABS: Partial Thromboplastin Ratio > 5.1
[2019-04-20 10:45] LABS: Partial Thromboplastin Time > 139.0 Seconds (21.0-31.0)
[2019-04-20 12:29] LABS: Partial Thromboplastin Ratio 4.1
[2019-04-20] MEDS: cefTRIAXone SODIUM 2,000 MG in DEXTROSE 5% 50 ML IV SCH (13:12)
[2019-04-20] MEDS: SODIUM CHLORIDE 0.9% 1000ML 1,000 ML IV SCH (13:13)
[2019-04-20 14:16] LABS: Partial Thromboplastin Ratio 2.4
[2019-04-20 14:36] LABS: Partial Thromboplastin Time 64.9 Seconds (21.0-31.0)
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
--- NOTE | 2019-04-20 15:48 | Gastroenterology Progress Note ---
Date of Service April 20, 2019 Assessment & Plan (1) Ascites: No evidence of SBP. Disscussed with patient 2 gm Na diet and take diuretics PV thrombosis--if this is more subacute and causing worsenign liver disease then he will benefit from anticoagulation. Also he may not be a transplant candiddat if has PV thrombosis. So anticoaguation is planned with help from hematology varices on CT--non on EGD but has portal hypertensive gastropathy so still needs proprnanolog stomach thickening--EGD neg hx of esophagitis and duodenitis--po ppi ETOH cirrhosiis--not drinking Discussed redommendations with DR Koroma and residents. Recommend f/u with DR Agrawal as outpt. Subjective cc f/u PV thrombosis, ascites HPI Pt had paracentesis and feels somewhat less short of breath. No abd pain. Review of Systems Respiratory: + dyspnea better Cardiovascular: no chest pain Physical Exam Constitutional: WD/WN, vitals as above Respiratory: normal respiratory effort, lungs clear to auscultation Cardiovascular: Rate/Rhythm: regular rate and regular rhythm Gastrointestinal (Abdomen): pos bs, moderately protuberant, no guarding nor rebound, Psychiatric: A+Ox3, euthymic affect Results & Data Vital Signs (Past 12 Hours) Vital Signs Temp Pulse Resp BP Pulse Ox 04/20/19 10:41 36.7 C 66 20 107/53 L 95 04/20/19 08:03 36.7 C 68 18 129/51 L 97 04/20/19 03:55 36.8 C 67 19 111/55 L 97 (1) Ascites Ascites type: due to alcoholic cirrhosis Qualified Code(s): K70.31 - Alcoholic cirrhosis of liver with ascites
[2019-04-20] MEDS ORDERED: WARFARIN SOD 2 MG TAB PO STA (16:18)
[2019-04-20] MEDS ORDERED: ENOXAPARIN 100 MG/1ML SYR SQ ONE (16:30)
--- NOTE | 2019-04-20 18:12 | Discharge Summary ---
Date of Service April 20, 2019 Admission HPI Per Admitting Provider for EGD Admission Exam Per Admitting Provider General-alert and oriented x3, no fevers, no chills HEENT-head atraumatic and normocephalic, TMs intact bilaterally, pupils equal and reactive to light, extraocular muscles intact Neck-no lymphadenopathy or thyromegaly, trachea midline Chest-clear to auscultation percussion. No rales wheezing or rhonchi Cardiac-regular rate and rhythm, normal S1 and S2, no murmurs Abdomen-distended with ascites. Palpable fluid wave. Mild diffuse tenderness. No rebound or guarding. He does have a right inguinal hernia Extremities-no cyanosis, clubbing. 2+ pitting edema bilateral lower extremities Neuro-cranial nerves II through XII intact, motor and sensory function within normal limits, strength symmetrical , no focal deficits Psych-normal affect, normal mood Principal Diagnosis Portal Vein Thrombosis Discharge Exam General: A&Ox3. NAD. Cooperative. HEENT: Atraumatic, normocephalic.No epistaxis.Poor dentition. No oral mucosal bleeding. Pulm: CTAB A&P. -wheezes, -rales, -rhonchi. Symmetrical chest rise. No increase work of breathing. No respiratory distress. Cardiac: RRR, -mrg. Radial pulses intact and symmetrical. Abdominal: Seeing softly distended, mildmoderate ascites. Nontender. No signs of bleeding at paracentesis site. Discharge Data Allergies Allergy/AdvReac Type Severity Reaction Status Date / Time terazosin Allergy Unknown UNKNOWN Verified 04/19/19 14:44 morphine Allergy Unverified 04/21/19 14:03 trazodone AdvReac Severe PRIAPISM Verified 04/19/19 14:44 Consultations 04/17/19 15:39 ED Decision to Admit Stat 04/17/19 18:24 Consult Gastroenterology Routine 04/19/19 16:04 Consult Hematology Routine Procedures Performed Operation Date: 04/19/19 09:45 Actual Procedures p Esophagogastroduodenoscopy - Yobany Agrawal Ordered Studies 04/17/19 14:08 CT abd pelvis IV con only Stat 04/19/19 08:36 US paracentesis abd w/image Routine Hospital Course (1) Portal vein thrombosis: Nicolás is a 68-year-old male with a past medical history of alcoholic cirrhosis, alcohol abuse in remission for 5 years, and hypertension who presented with increasing lower extremity edema and ascites due to portal vein thrombosis. Ascites secondary to alcoholic cirrhosis and portal vein thrombosis Nicolás has a history of ascites secondary to alcoholic cirrhosis last treated more than a year ago with paracentesis. He has had recent accumulation and worsening of the fluid in his abdomen and was found to have a portal vein thrombosis on CT-Abdomen. Gastroenterology was consulted and his thrombosis was managed as below. During admission he received paracentesis with removal of 6 L of fluid, good clinical improvement, and no signs of bleeding. He did not experience any hypotension after paracentesis. His paracentesis fluid did not show signs of malignancy. He was initially treated with empiric cefepime narrowed to Rocephin and discontinued once it was confirmed he did not have signs of abdominal infection or bleeding. Further SBP prophylaxis was not indicated. On discharge he was started on an additional Spironolactone 25 mg and counseled on maintaining a 2 g sodium restricted diet. He was discharged with follow-up to GI. Portal vein thrombosis Nicolás was found to have a portal vein thrombosis with some evidence of chronic change on CT abdomen. He did not have any esophageal varices on follow-up EGD. Pantoprazole 40 mg daily was continued during admission and on discharge. His case was discussed with gastroenterology who were concerned that his presentation could be subacute causing worsening liver disease. It was noted that he he would both likely benefit from anticoagulation and should he need a transplant he would be in eligible if he had a portal vein thrombosis. Anticoagulation was initiated following consultation with hematology. He was initially started on heparin without bolus, but had a supratherapeutic response. He did not show any clinical signs of bleeding. On consultation with GI and oncology it was recommended that he be converted to warfarin anticoagulation and to start at a very low 2 mg dose and to follow-up with INR clinic closely. It was recommended that he be bridged with Lovenox, given his high body weight and concern for his supratherapeutic response to insulin he was bridged with 90 mg of Lovenox daily rather than 1.5 mg per kilogram dosing. He was scheduled to follow-up with anticoagulation clinic the day following discharge with results for adjustment to be made by Dr. Adrian until he is able to follow-up with Dr. Nam. He was continued on propranolol 60 mg twice daily. Hypokalemia Nicolás was hypomagnesemic and hypokalemic on admission. His electrolites normalized with oral repletion of both potassium and magnesium. (2) Cirrhosis: (3) Ascites: (4) Hypokalemia: Total Time Total Time Spent Total Time Spent (In Minutes): 30 Discharge Plan Discharge Items Patient Disposition: Home - Self-Care Reason For Visit: PORTAL VEIN THROMBOSIS,QT PROLONGATION Discharge Diagnosis: Ascites, Liver Cirrhosis, Blood clot in portal vein Discharge Goals: Decrease discomfort, Improve disease control and Improve function Activity: Resume your previous activity Non-emergency contact: Primary Care Provider Call non-emergency contact if: you have any medication questions, your pain is worsening and your temperature is above 101 Follow-up/Referrals: [facility] [Provider Group] - 04/21/19 8:45 am (Please, follow up at [facility], TOMORROW, FridayApril AT 8:45 AM. *The clinic is locted in the rear of this hospital. Park behind the hospital in [address]. If you have any questions, call the office at [phone].) Cara Flowers MD [Primary Care Provider] - 04/29/19 2:00 pm (Please, follow up at Dr. Flowers's office with her associate, Dr. Craig Worthy, on April 29 at 2:00 pm. *If you need to change this appointment, call their office at [phone].) Yobany Agrawal [Physician] - (Please, contact Dr. Agrawal's office (gastroenterolog) to schedule an appointment. *The office phone number is [phone].) Diet: Low Sodium (2gm) Addtl Provider Instructions: Mr. Fortune, you were seen at [facility] due to worsening swelling in your abdomen. You underwent a paracentesis, where 6L of fluid in your abdomen was drained. This fluid did not show any signs of an infection. You were also seen by our gastroenterologists who performed a scope that examined your esophagus and stomach. They did not find any dilated vessels (esophageal varices) in your esophagus, but there was some inflammation in your stomach that we will continue treating with pantoprazole (a medication that you were already taking). The gastroenterologists and hematologists (blood doctors) were also concerned regarding the blood clot that was seen in your portal vein. To prevent worsening of this blood clot, we will be starting you on medications to thin your blood. These are described below. Please continue to take your other medications as prescribed. We STRONGLY recommend a low salt diet (aim for less than 2 grams of salt a day), as this will lower your chance of having fluid reaccumulate in your abdomen. Please do not drink any alcoholic beverages as this will worsen your liver disease. New medications: - lovenox -> this is a medication protects you from clots until warfarin takes full effect. Please inject yourself with this medication once a day, until advised to stop. - warfarin -> this is the blood thinner that you will be taking for a longer term. We have arranged an appointment for you at the anticoagulation clinic tomorrow morning at 8:45 AM. Details regarding this appointment are listed above. - spironolactone -> this medication will work with your furosemide to help reduce the amount of fluid that builds up in your abdomen If you notice any bleeding, have a fall, experience worsening abdominal pain or distention, have a fever or chills, please seek medical attention. We have also set up a follow up appointment with your primary care provider, and the gastroenterology clinic will be calling you to set up a follow up appointment as well. Prescriptions: New enoxaparin [Lovenox] 100 mg/mL syringe 90 mg SQ DAILY 5 Days Qty: 4.5 RF: 1 spironolactone 25 mg tablet 25 mg PO DAILY Qty: 30 RF: 0 Continued multivitamin Tablet 1 tab PO WK RF: 0 furosemide 40 mg Tablet 40 mg PO QAM RF: 0 propranolol 60 mg Tablet 60 mg PO BID RF: 0 acetaminophen [Tylenol Extra Strength] 500 mg Tablet 1,000 mg PO DAILY RF: 0 pantoprazole 40 mg Tablet,Delayed Release (Dr/Ec) 40 mg PO QAM RF: 0 No Action warfarin 1 mg tablet 1 mg PO DAILY RF: 0 varicella-zoster gE vac,2 of 2 50 mcg suspension for reconstitution IM .0.5mL IM x1 at month Qty: 0.5 RF: 0 ketoconazole 2 % cream topical .Apply twice a day to Qty: 30 RF: 0 Stand-Alone Forms: [facility] Discharge Orders: Discharge Order (Routine); Ordered 04/20/19 Ordered By: Markie Mast Admission Data Admit Date/Time: 04/17/19 17:13 Attending Provider: Emily Koroma Admit Provider: Kaleb Muniz Primary Care Provider: Cara Flowers Other Providers: Kaleb Muniz ; Getachew Barba ; Edinson Soni ; Anthony Adrian V Service: Telemetry Other Interventions: Discharge Summary Assessment (RN) Last Done: 04/20/19 17:00 DC Date/Time DO NOT enter until pt leaves facility: 04/20/19 18:29 Supervising Physician Co-Signing Physician Notes Resident Physician Supervision Note: I independently interviewed and examined the patient and verified the lebron history and physical, reviewed labs and image studies, discussed the case with the resident Dr. Mast and agree with the findings and care plan. Time spent in discharge 35 min Resident Activity Tracking Resident Involvement: Resident Care Provided Care Provided: Adult Hospital Medicine
== END 2019-04-20 18:29 | disposition home or self-care (01) | DRG 442 ==
LOC: ED 12:38 → 2E 17:13 → SUATTDRO 17:13 → 2E 17:38
DX: F17.220 Nicotine dependence, chewing tobacco, uncomplicated; I81 Portal vein thrombosis; M10.9 Gout, unspecified; E87.6 Hypokalemia; K21.9 Gastro-esophageal reflux disease without esophagitis; K70.31 Alcoholic cirrhosis of liver with ascites; E83.42 Hypomagnesemia; K76.6 Portal hypertension; E86.0 Dehydration; I10 Essential (primary) hypertension; E83.51 Hypocalcemia; Z79.899 Other long term (current) drug therapy

== ENCOUNTER 2019-06-15 10:23 | Inpatient (IN) ==
[2019-06-15 11:03] LABS: Basophils # (auto) 0.07 K/uL (0-0.2); Basophils % (auto) 0.9 %; Eosinophils # (auto) 0.31 K/uL (0-0.5); Hematocrit (blood only) 35.1 % (42-52); Immature Granulocytes # (auto) 0.03 K/uL (0.00-0.02); Immature Granulocytes % (auto) 0.4 %; Lymphocytes # (auto) 1.03 K/uL (1.2-3.4); Lymphocytes % (auto) 13.3 %; Mean Corpuscular Hemoglobin 33.2 pg (25-34); Mean Corpuscular Hgb Conc 34.2 g/dL (32-36); Mean Corpuscular Volume 97.2 fL (80-100); Mean Platelet Volume 9.5 fL (7.4-10.4); Monocytes # (auto) 0.74 K/uL (0.11-0.59); Monocytes % (auto) 9.6 %; Neutrophils # (auto) 5.55 K/uL (1.4-6.5); Neutrophils % (auto) 71.8 %; Platelet Count 222 K/uL (130-400); RDW Coefficient of Variation 15.3 % (11.5-14.5); RDW Standard Deviation 54.5 fL (36.4-46.3); Red Blood Count 3.61 M/uL (4.7-6.1); White Blood Count 7.73 K/uL (4.8-10.8)
[2019-06-15 11:19] LABS: INR 1.7 (0.9-1.1); Partial Thromboplastin Ratio 1.3; Prothrombin Time 16.7 Seconds (9.0-12.0)
[2019-06-15 11:22] LABS: Alanine Aminotransferase 17 U/L (12-78); Albumin Level 2.3 gm/dl (3.4-5.0); Aspartate Aminotransferase 41 U/L (15-37); BUN Creatinine Ratio 19.4 (10-20); Blood Urea Nitrogen 16 mg/dl (7-18); Calcium 8.3 mg/dl (8.5-10.1); Carbon Dioxide 27 mmol/L (21-32); Chloride 104 mmol/L (98-107); Creatinine Clr Calc Pharmacy 96.1 ml/min; Est GFR (Non-African American) 90.6; Glucose 105 mg/dl (70-99); Potassium 3.7 mmol/L (3.5-5.1); Sodium 139 mmol/L (136-145)
[2019-06-15 11:27] LABS: Albumin Globulin Ratio 0.4 (0.9-2); Alkaline Phosphatase 135 U/L (45-117); Bilirubin,Total 3.8 mg/dl (0.2-1); Globulin 5.3 gm/dl (2.5-4.0); Total Protein 7.6 gm/dl (6.4-8.2); Troponin I < 0.015 ng/ml (0-0.045)
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
--- NOTE | 2019-06-15 12:33 | Ultrasound Report ---
US duplex portal hepatic veins CLINICAL HISTORY: Portal venous thrombus. COMPARISON STUDY: CT of the abdomen and pelvis April 17, 2019. TECHNIQUE: Grayscale and color and duplex Doppler sonography of the major hepatic vessels was perform ed. FINDINGS: The liver is cirrhotic. Large amount of perihepatic ascites is noted. No flow is identified within the right portal vein. Flow is identified within the main and left portal veins with appropri ately directed flow. However, the velocities are diminished. CT of April 17, 2019 demonstrated extensi ve thrombus within the main portal vein. The hepatic veins are patent. The hepatic artery is patent. IMPRESSION: 1. No flow identified within the right portal vein which may be due to portal venous thrombus or slow flow. 2. Hepatopedal flow within the main and left portal veins however flow is diminished. This may be due to nonocclusive thrombus which was shown on prior CT. 3. Cirrhosis with perihepatic ascites. Electronically signed by: Karthikeyan Rashid M.D. 06/15/2019 12:31 PM
[2019-06-15] MEDS ORDERED: ACETAMINOPHEN 500 MG TAB PO PRN (13:54)
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
[2019-06-15] MEDS: SODIUM CHLORIDE 0.9% 1000ML 1,000 ML IV SCH (14:43)
[2019-06-15] MEDS: FUROSEMIDE 40 MG TAB PO SCH (17:24)
--- NOTE | 2019-06-15 17:34 | Consultation Report ---
DATE OF CONSULTATION: 06/15/2019 REASON FOR EVALUATION: Rectal bleeding. HISTORY OF PRESENT ILLNESS: The patient is a 68-year-old who have taken care of last 4-5 years for cirrhosis secondary to alcohol. The patient was diagnosed in 2014 when he presented with new onset ascites. The patient has been maintained on diuretics and has done relatively well. He stopped drinking and is currently being evaluated at [facility] for liver transplant. He had an EGD on 04/19/2019 and there were no esophageal varices found in the past. He did have duodenal ulcers which were treated and resolved. The patient has a partial thrombosis in his portal vein and is on warfarin. This morning, he was straining to try to have a bowel movement and did not complete the bowel movement, but noted some bright red rectal bleeding. This was painless and caused some dripping of blood. He estimates he has lost about a cup of blood and presented to the hospital for further evaluation where he was admitted for observation. The patient reports his last colonoscopy was probably about 4-5 years ago. PAST MEDICAL HISTORY: Remarkable for cirrhosis, hypertension, portal vein thrombosis, right inguinal hernia. MEDICATIONS: Furosemide 40 mg b.i.d., amiloride 10 mg once a day, warfarin 1 mg a day, propranolol 60 mg b.i.d. and pantoprazole 40 mg once a day. ALLERGIES: TERAZOSIN AND TRAZODONE. FAMILY HISTORY: Positive for hypertension in sister. SOCIAL HISTORY: The patient is , lives alone, former smoker, former alcoholic, has not had anything to drink in the last 4 or 5 years. REVIEW OF SYSTEMS: Positive for poor dentition and memory loss. Remainder is negative. PHYSICAL EXAMINATION: GENERAL: The patient appears in no acute distress. VITAL SIGNS: Blood pressure is 168/79, pulse 71, O2 saturation is 99% on room air. LUNGS: Clear. HEART: Showed normal S1 and S2. Regular rate and rhythm. ABDOMEN: Distended. He has a right inguinal hernia and umbilical hernia. EXTREMITIES: Showed 2+ edema in the lower legs. IMPRESSION: The patient has rectal bleeding probably from hemorrhoids and probably exacerbated by his Coumadin which is being held. I plan on giving a bowel prep overnight and tomorrow morning and scheduling a colonoscopy for tomorrow afternoon for further evaluation.
[2019-06-15] MEDS: LAVAGE SOLUTION 4000ML PO SCH (18:23)
[2019-06-15] MEDS: PROPRANOLOL HCL 20 MG TAB PO SCH (21:37)
[2019-06-16] MEDS: SODIUM CHLORIDE 0.9% 1000ML 1,000 ML IV SCH ×2 (03:12→19:00)
[2019-06-16] MEDS: LAVAGE SOLUTION 4000ML PO SCH (07:09)
[2019-06-16 07:36] LABS: Hematocrit (blood only) 27.2 % (42-52); Hemoglobin 9.3 g/dL (14.0-18.0); Mean Corpuscular Hemoglobin 32.9 pg (25-34); Mean Corpuscular Hgb Conc 34.2 g/dL (32-36); Mean Corpuscular Volume 96.1 fL (80-100); Mean Platelet Volume 8.8 fL (7.4-10.4); Platelet Count 166 K/uL (130-400); RDW Coefficient of Variation 15.3 % (11.5-14.5); RDW Standard Deviation 53.9 fL (36.4-46.3); Red Blood Count 2.83 M/uL (4.7-6.1); White Blood Count 6.72 K/uL (4.8-10.8)
[2019-06-16 07:44] LABS: INR 1.8 (0.9-1.1); Prothrombin Time 17.3 Seconds (9.0-12.0)
[2019-06-16 08:07] LABS: Albumin Level 1.8 gm/dl (3.4-5.0); BUN Creatinine Ratio 19.3 (10-20); Calcium 7.9 mg/dl (8.5-10.1); Est GFR (African American) 110.6; Est GFR (Non-African American) 95.4; Magnesium 1.6 mg/dl (1.8-2.4); Potassium 3.6 mmol/L (3.5-5.1)
[2019-06-16 08:19] LABS: Albumin Globulin Ratio 0.4 (0.9-2); Bilirubin,Total 3.3 mg/dl (0.2-1); Globulin 4.3 gm/dl (2.5-4.0); Total Protein 6.1 gm/dl (6.4-8.2)
[2019-06-16] MEDS: PANTOprazole 40 MG TAB PO SCH (08:43)
[2019-06-16] MEDS: PROPRANOLOL HCL 20 MG TAB PO SCH ×2 (08:43→20:36)
[2019-06-16] MEDS: FUROSEMIDE 40 MG TAB PO SCH ×2 (08:43→17:44)
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
[2019-06-16] MEDS ORDERED: SODIUM CHLORIDE 0.9% 250 ML IV PRN (13:55)
[2019-06-16] MEDS ORDERED: fentaNYL citrate 100 MCG/2 ML VIAL ONE (13:56)
[2019-06-16] MEDS ORDERED: SODIUM CHLORIDE 0.9% 1000ML 1,000 ML IV SCH (14:00)
--- NOTE | 2019-06-16 14:20 | GI REPORT ---
Patient Name: Nicolás Fortune Procedure Date: 06/16/2019 2:01 PM Date of : 1950 Admit Type: Inpatient Age: 68 Gender: Male Attending MD: Yobany Agrawal MD Procedure: Colonoscopy Providers: Yobany Agrawal MD Referring MD: Referred Self Indications: Rectal bleeding Medicines: Fentanyl 100 micrograms IV, Propofol total dose 110 mg IV, Lidocaine 40 mg IV Complications: No immediate complications. Estimated Blood Loss: Estimated blood loss: none. Procedure: Pre-Anesthesia Assessment: - Prior to the procedure, a History and Physical was performed, and patient medications, allergies and sensitivities were reviewed. The patient's tolerance of previous anesthesia was reviewed. - The risks and benefits of the procedure and the sedation options and risks were discussed with the patient. All questions were answered and informed consent was obtained. After I obtained informed consent, the scope was passed under direct vision. Throughout the procedure, the patient's blood pressure, pulse, and oxygen saturations were monitored continuously. The Colonoscope was introduced through the anus and advanced to the terminal ileum. The colonoscopy was performed without difficulty. The patient tolerated the procedure well. The quality of the bowel preparation was good. Findings: The terminal ileum appeared normal. A few diverticula were found in the sigmoid colon. Non-bleeding internal hemorrhoids were found during retroflexion. The hemorrhoids were moderate. Impression: - The examined portion of the ileum was normal. - Diverticulosis in the sigmoid colon. - Non-bleeding internal hemorrhoids. - No specimens collected. Recommendation: - Return patient to [facility] for ongoing care. Yobany Agrawal M.D. Yobany Agrawal MD 06/16/2019 2:20:03 PM This report has been signed electronically. Note Initiated On: 06/16/2019 2:01 PM Number of Addenda: 0 I attest to the content of the Intraoperative Record and orders documented therein, exceptions below {[id number]}
[2019-06-16] MEDS ORDERED: PROPOFOL IV EMULSION 10 MG/ML 20 ML VIAL IV ONE (14:23)
[2019-06-16] MEDS ORDERED: LIDOCAINE HCL 2% 2 ML VIAL/AMP(20MG/ML) INFIL ONE ×2 (14:23)
--- NOTE | 2019-06-16 14:39 | Progress Note ---
DATE: 06/16/2019 The patient had some more rectal bleeding today when he was going to his bowel prep, blood was bright red. He underwent a colonoscopy which was carried into the terminal ileum. The prep was good. There was no blood anywhere in the colon or small intestine. There were a few sigmoid diverticula in the rectum internally. There were moderate sized hemorrhoids, but they were not actively bleeding. IMPRESSION: The patient has internal hemorrhoids as the source of his bleeding. Currently, they were not bleeding. If this becomes more of an issue, we can have him see a colorectal surgeon as an outpatient to address them but other than that, there is no further intervention is necessary at this time.
--- NOTE | 2019-06-16 14:42 | Anesthesiology Progress Note ---
Date of Service June 16, 2019 Anesthesia Post Procedure Vital Signs Vital Signs: Temp Pulse Pulse Pulse Resp BP BP 06/16/19 14:33 67 18 158/84 H 06/16/19 14:18 69 18 130/65 06/16/19 13:44 36.8 C 73 18 150/70 H 06/16/19 07:47 36.2 C L 74 18 130/64 06/15/19 23:56 36.7 C 72 16 126/64 06/15/19 21:36 68 143/72 H 06/15/19 15:22 36.5 C 67 18 143/68 H Pulse Ox 06/16/19 14:33 97 06/16/19 14:18 96 06/16/19 13:44 96 06/16/19 07:47 94 06/15/19 23:56 95 06/15/19 21:36 06/15/19 15:22 98 Pain Intensity Abdomen: Pain Intensity: 0 Transfer of Care Handoff Completed per policy Notes Mental Status: alert / awake / arousable and participated in evaluation Nausea / Vomiting: adequately controlled Pain: adequately controlled Airway Patency, RR, SpO2: stable & adequate BP & HR: stable & adequate Hydration State: stable & adequate Anesthetic Complications: no major complications apparent and Pt Satisfied with anesthetic care
[2019-06-16] MEDS ORDERED: MAGNESIUM SULFATE / D5W 1 GM/100 ML BAG IV ONE (17:12)
--- NOTE | 2019-06-16 17:14 | Hospitalist Progress Note ---
Date of Service June 16, 2019 Assessment & Plan (1) GI (gastrointestinal bleed): He presented with lower GI bleed with bright red blood per rectum, now status post colonoscopy which did show moderate internal hemorrhoids that are not currently bleeding on 06/16 -Hemoglobin has dropped almost 3 g since admission - [facility] GI consult appreciated -Continue to hold warfarin, but will hold off on reversal as his INR is only 1.8, bleeding seems self-limited, and vital signs are stable. -Check another CBC this evening and again in the morning -Consented for blood and 2 units are waiting just in case -Would plan to hold warfarin for at least another day or 2 before restarting -Discontinue IV fluids (2) Internal hemorrhoid, bleeding: As above (3) Acute blood loss anemia: As above -Transfuse as needed for hemoglobin less than 7.5 or continued bleeding -Will need iron pills on discharge (4) Alcoholic cirrhosis of liver: Stopped drinking in 2014 after diagnosis. Follows with [facility] GI and working on possible liver transplant at [place]. - Continue beta-adrianna with propranolol 60 mg p.o. twice daily - Continue amiloride and Lasix for his ascites -Has large amount of ascites on examination and is tachypneic, has abdominal distention but no pain -Plan for paracentesis tomorrow with IV albumin to follow as albumin is only 1.8 (5) Hypertension: Hypertensive initially, now blood pressures on the lower side - Continue beta-adrianna & diuretics with caution (6) Portal vein thrombosis: Diagnosed in 03/2019. On warfarin and [facility]. - Holding warfarin as above -We will restart warfarin as soon as possible (7) Hypomagnesemia: Magnesium low at 1.6 Replace with 1 g of IV magnesium -Follow magnesium level in the morning (8) Ascites: Plan as above, paracentesis for tomorrow (9) Hyperbilirubinemia: Secondary to cirrhosis, total bilirubin is down to 3.3 from 3.8 on admission (10) Peptic ulcer disease: With a history of significant bleeding approximately 1 year ago from peptic ulcer disease -Continue Protonix (11) DVT prophylaxis: SCDs Disposition-continued stay Subjective Patient recently returned from colonoscopy. He had some small amount of bright red bleeding during his prep today. He denies lightheadedness or chest pain. He does appear short of breath and reports his belly is distended. His daughter is requesting that he have another paracentesis. I discussed the case with GI. Review of Systems Review of Systems: All systems reviewed & are unremarkable except as noted in HPI & below Physical Exam Constitutional: + ill appearing; no acute distress Eyes: + scleral abnormality (Icterus) ENMT: external ear and nose normal, oropharynx normal Neck: trachea midline, no thyromegaly Respiratory: + tachypneic Auscultation: no crackles, no rhonchi and no wheezes Cardiovascular: Rate/Rhythm: regular rate and regular rhythm Extremities: + edema (2+ pitting edema of the legs to the knees bilaterally) Gastrointestinal (Abdomen): Inspection/Auscultation: + abdomen distended and normal bowel sounds; + abdomen abnormal to inspection Percussion/Palpation: abdomen soft, + hernia (Small umbilical hernia), + ascites and + fluid wave; abdomen nontender Musculoskeletal: Extremities: no cyanosis and no clubbing Skin: no rashes, warm and dry Neurologic: moves all extremities and awake; no focal motor deficits Psychiatric: A+Ox3, euthymic affect Results & Data Vital Signs (Past 12 Hours) Vital Signs Temp Pulse Pulse Resp BP BP Pulse Ox 06/16/19 16:14 36.6 C 67 18 130/64 96 06/16/19 15:42 36.5 C 67 18 139/68 96 06/16/19 15:15 36.5 C 72 20 151/74 H 93 06/16/19 14:48 69 18 147/67 H 95 06/16/19 14:33 67 18 158/84 H 97 06/16/19 14:18 69 18 130/65 96 06/16/19 13:44 36.8 C 73 18 150/70 H 96 06/16/19 07:47 36.2 C L 74 18 130/64 94 Laboratory Results 06/16/19 06/16/19 06/16/19 Range/Units 17:25 07:14 07:14 WBC 8.25 (4.8-10.8) K/uL RBC 2.95 L (4.7-6.1) M/uL Hgb 9.6 L (14.0-18.0) g/dL Hct 28.2 L (42-52) % MCV 95.6 (80-100) fL MCH 32.5 (25-34) pg MCHC 34.0 (32-36) g/dL RDW Std Deviation 53.6 H (36.4-46.3) fL RDW Coeff of Ramses 15.4 H (11.5-14.5) % Plt Count 204 (130-400) K/uL MPV 9.1 (7.4-10.4) fL Immature Gran % (Auto) 0.5 % Neut % (Auto) 57.0 % Lymph % (Auto) 23.2 % [place] % (Auto) 12.5 % Eos % (Auto) 5.7 % Baso % (Auto) 1.1 % Immature Gran # (Auto) 0.04 H (0.00-0.02) K/uL Neut # (Auto) 4.71 (1.4-6.5) K/uL Lymph # (Auto) 1.91 (1.2-3.4) K/uL [place] # (Auto) 1.03 H (0.11-0.59) K/uL Eos # (Auto) 0.47 (0-0.5) K/uL Baso # (Auto) 0.09 (0-0.2) K/uL PT (9.0-12.0) Seconds INR (0.9-1.1) Sodium 140 (136-145) mmol/L Potassium 3.6 (3.5-5.1) mmol/L Chloride 109 H (98-107) mmol/L Carbon Dioxide 26 (21-32) mmol/L Anion Gap 6.0 (3-11) BUN 14 (7-18) mg/dl Creatinine 0.74 (0.6-1.4) mg/dl Est Cr Clr Drug Dosing 106.0 ml/min Est GFR ( Amer) 110.6 Est GFR (Non-Af Amer) 95.4 BUN/Creatinine Ratio 19.3 (10-20) Glucose 87 (70-99) mg/dl Calcium 7.9 L (8.5-10.1) mg/dl Magnesium 1.6 L (1.8-2.4) mg/dl Total Bilirubin 3.3 H (0.2-1) mg/dl AST 33 (15-37) U/L ALT 13 (12-78) U/L Alkaline Phosphatase 98 (45-117) U/L Total Protein 6.1 L (6.4-8.2) gm/dl Albumin 1.8 L (3.4-5.0) gm/dl Globulin 4.3 H (2.5-4.0) gm/dl Albumin/Globulin Ratio 0.4 L (0.9-2) Blood Type Blood Type Recheck A Positive Antibody Screen Crossmatch 06/16/19 06/16/19 06/15/19 Range/Units 07:14 07:14 10:50 WBC 6.72 (4.8-10.8) K/uL RBC 2.83 L (4.7-6.1) M/uL Hgb 9.3 L (14.0-18.0) g/dL Hct 27.2 L (42-52) % MCV 96.1 (80-100) fL MCH 32.9 (25-34) pg MCHC 34.2 (32-36) g/dL RDW Std Deviation 53.9 H (36.4-46.3) fL RDW Coeff of Ramses 15.3 H (11.5-14.5) % Plt Count 166 (130-400) K/uL MPV 8.8 (7.4-10.4) fL Immature Gran % (Auto) % Neut % (Auto) % Lymph % (Auto) % [place] % (Auto) % Eos % (Auto) % Baso % (Auto) % Immature Gran # (Auto) (0.00-0.02) K/uL Neut # (Auto) (1.4-6.5) K/uL Lymph # (Auto) (1.2-3.4) K/uL [place] # (Auto) (0.11-0.59) K/uL Eos # (Auto) (0-0.5) K/uL Baso # (Auto) (0-0.2) K/uL PT 17.3 H (9.0-12.0) Seconds INR 1.8 H (0.9-1.1) Sodium (136-145) mmol/L Potassium (3.5-5.1) mmol/L Chloride (98-107) mmol/L Carbon Dioxide (21-32) mmol/L Anion Gap (3-11) BUN (7-18) mg/dl Creatinine (0.6-1.4) mg/dl Est Cr Clr Drug Dosing ml/min Est GFR ( Amer) Est GFR (Non-Af Amer) BUN/Creatinine Ratio (10-20) Glucose (70-99) mg/dl Calcium (8.5-10.1) mg/dl Magnesium (1.8-2.4) mg/dl Total Bilirubin (0.2-1) mg/dl AST (15-37) U/L ALT (12-78) U/L Alkaline Phosphatase (45-117) U/L Total Protein (6.4-8.2) gm/dl Albumin (3.4-5.0) gm/dl Globulin (2.5-4.0) gm/dl Albumin/Globulin Ratio (0.9-2) Blood Type A Positive Blood Type Recheck Antibody Screen NEGATIVE Crossmatch See Detail PG Care Time/CCT Total # of Minutes Spent Total Time Spent with Patient: Total time spent is greater than 50% in coordination of care (as documented) at patient's floor/unit and/or counseling patient: (1) GI (gastrointestinal bleed) GI bleed type/associated pathology: unspecified gastrointestinal hemorrhage type Qualified Code(s): K92.2 - Gastrointestinal hemorrhage, unspecified (2) Ascites Ascites type: due to alcoholic cirrhosis Qualified Code(s): K70.31 - Alcoh olic cirrhosis of liver with ascites
[2019-06-16 17:47] LABS: Basophils # (auto) 0.09 K/uL (0-0.2); Basophils % (auto) 1.1 %; Eosinophils # (auto) 0.47 K/uL (0-0.5); Eosinophils % (auto) 5.7 %; Hematocrit (blood only) 28.2 % (42-52); Hemoglobin 9.6 g/dL (14.0-18.0); Immature Granulocytes # (auto) 0.04 K/uL (0.00-0.02); Immature Granulocytes % (auto) 0.5 %; Lymphocytes # (auto) 1.91 K/uL (1.2-3.4); Lymphocytes % (auto) 23.2 %; Mean Corpuscular Hemoglobin 32.5 pg (25-34); Mean Corpuscular Volume 95.6 fL (80-100); Mean Platelet Volume 9.1 fL (7.4-10.4); Monocytes # (auto) 1.03 K/uL (0.11-0.59); Monocytes % (auto) 12.5 %; Neutrophils # (auto) 4.71 K/uL (1.4-6.5); Platelet Count 204 K/uL (130-400); RDW Coefficient of Variation 15.4 % (11.5-14.5); RDW Standard Deviation 53.6 fL (36.4-46.3); Red Blood Count 2.95 M/uL (4.7-6.1); White Blood Count 8.25 K/uL (4.8-10.8)
[2019-06-17] MEDS: PROPRANOLOL HCL 20 MG TAB PO SCH ×2 (07:46→20:25)
[2019-06-17] MEDS: PANTOprazole 40 MG TAB PO SCH (07:47)
[2019-06-17] MEDS: FUROSEMIDE 40 MG TAB PO SCH ×2 (07:47→17:50)
--- NOTE | 2019-06-17 07:58 | Anesthesiology Progress Note ---
Date of Service June 17, 2019 Anesthesia Post Procedure Vital Signs Vital Signs: Temp Pulse Pulse Resp BP BP Pulse Ox 06/17/19 04:00 37.2 C 79 16 108/60 92 06/17/19 00:59 37.1 C 77 19 119/60 92 06/16/19 22:13 37.3 C 80 18 108/54 L 94 06/16/19 18:15 36.7 C 72 18 133/69 98 06/16/19 17:15 36.5 C 71 18 129/61 97 06/16/19 16:14 36.6 C 67 18 130/64 96 06/16/19 15:42 36.5 C 67 18 139/68 96 06/16/19 15:15 36.5 C 72 20 151/74 H 93 06/16/19 14:48 69 18 147/67 H 95 06/16/19 14:33 67 18 158/84 H 97 06/16/19 14:18 69 18 130/65 96 06/16/19 13:44 36.8 C 73 18 150/70 H 96 Pain Intensity Abdomen: Pain Intensity: 0 Notes Mental Status: alert / awake / arousable and participated in evaluation Patient Amnestic to Procedure: Yes Nausea / Vomiting: adequately controlled Pain: adequately controlled Airway Patency, RR, SpO2: stable & adequate BP & HR: stable & adequate Hydration State: stable & adequate Anesthetic Complications: no major complications apparent and Pt Satisfied with anesthetic care
[2019-06-17 07:59] LABS: Hematocrit (blood only) 25.1 % (42-52); Hemoglobin 8.4 g/dL (14.0-18.0); Mean Corpuscular Hemoglobin 32.7 pg (25-34); Mean Corpuscular Hgb Conc 33.5 g/dL (32-36); Mean Corpuscular Volume 97.7 fL (80-100); RDW Coefficient of Variation 15.5 % (11.5-14.5); RDW Standard Deviation 55.4 fL (36.4-46.3); Red Blood Count 2.57 M/uL (4.7-6.1); White Blood Count 6.17 K/uL (4.8-10.8)
[2019-06-17 08:00] LABS: Basophils # (auto) 0.03 K/uL (0-0.2); Basophils % (auto) 0.5 %; Eosinophils % (auto) 4.9 %; Immature Granulocytes # (auto) 0.02 K/uL (0.00-0.02); Immature Granulocytes % (auto) 0.3 %; Lymphocytes # (auto) 1.21 K/uL (1.2-3.4); Lymphocytes % (auto) 19.6 %; Mean Platelet Volume 9.1 fL (7.4-10.4); Monocytes # (auto) 0.89 K/uL (0.11-0.59); Monocytes % (auto) 14.4 %; Neutrophils # (auto) 3.72 K/uL (1.4-6.5); Neutrophils % (auto) 60.3 %; Platelet Count 155 K/uL (130-400)
[2019-06-17 08:08] LABS: INR 1.6 (0.9-1.1); Prothrombin Time 15.8 Seconds (9.0-12.0)
[2019-06-17 08:37] LABS: Albumin Level 1.7 gm/dl (3.4-5.0); BUN Creatinine Ratio 17.2 (10-20); Bilirubin Direct 1.3 mg/dl (0-0.2); Calcium 7.8 mg/dl (8.5-10.1); Creatinine Clr Calc Pharmacy 85.3 ml/min; Est GFR (African American) 99.4; Est GFR (Non-African American) 85.8; Magnesium 1.8 mg/dl (1.8-2.4); Potassium 3.6 mmol/L (3.5-5.1)
[2019-06-17 08:51] LABS: Bilirubin,Total 2.1 mg/dl (0.2-1); Total Protein 5.8 gm/dl (6.4-8.2)
--- NOTE | 2019-06-17 12:05 | Ultrasound Report ---
US paracentesis abd w/image CLINICAL HISTORY: ascites,cirrhosis ascites COMPARISON STUDY: No previous studies for comparison. PROCEDURE: The risks, benefits, and alternatives to the procedure were discussed with the patient inc luding the risk of bleeding, infection and injury to adjacent structures. The patient agreed to the procedure and informed written consent was obtained. The procedure was performed by Dr. Camelia ruffin a time out. Following real-time ultrasound localization, the skin was prepped and draped. Genevieve ruffin local anesthesia with Xylocaine, the sheath paracentesis needle was inserted and approximately 5 liters of straw-colored fluid was removed by vacuum suction. The patient tolerated the procedure well and no immediate complications were evident. IMPRESSION: Ultrasound-guided paracentesis with removal of 5 liters of ascites. No complications at the time of the procedure. The above report was generated using voice recognition software. It may contain grammatical, syntax or spelling errors. Electronically signed by: Epifanio Denise M.D. 06/17/2019 12:04 PM
[2019-06-17] MEDS: ALBUMIN 25% 50 ML IV SCH ×4 (12:24→15:09)
--- NOTE | 2019-06-17 15:09 | Hospitalist Progress Note ---
Date of Service June 17, 2019 Assessment & Plan (1) GI (gastrointestinal bleed): He presented with lower GI bleed with bright red blood per rectum, now status post colonoscopy which did show moderate internal hemorrhoids that are not currently bleeding on 06/16 -Hemoglobin has dropped from 12 now down to 8.4 today, remains hemodynamically stable with low normal blood pressures in the setting of recent large volume paracentesis - [facility] GI consult appreciated -Continue to hold warfarin, no reversal as his INR is only 1.6, bleeding seems self-limited, and vital signs are stable. -Follow CBC again in the morning -Consented for blood and 2 units are waiting just in case -Would plan to hold warfarin for at least another day or 2 before restarting (2) Internal hemorrhoid, bleeding: As above-has stopped (3) Acute blood loss anemia: As above -Transfuse as needed for hemoglobin less than 7.5 or continued bleeding -Will need iron pills on discharge (4) Alcoholic cirrhosis of liver: Stopped drinking in 2014 after diagnosis. Follows with [facility] GI and working on possible liver transplant at [place]. - Continue beta-adrianna with propranolol 60 mg p.o. twice daily - Continue amiloride (although this has not been brought in from home) and Lasix for his ascites -Has large amount of ascites on examination and is tachypneic, had abdominal distention but no pain-now status post paracentesis removing 5 L on 06/17 -Receiving IV albumin today as albumin is only 1.7 and had paracentesis -Reassess tomorrow -Follow LFTs, INR, CBC, CMP (5) Hypertension: Hypertensive initially, now blood pressures on the lower side status post paracentesis and blood loss - Continue beta-adrianna & diuretics with caution (6) Portal vein thrombosis: Diagnosed in 03/2019. On warfarin and [facility]. - Holding warfarin as above -We will restart warfarin as soon as possible after hemoglobin stabilizes (7) Hypomagnesemia: Now resolved with replacement -Follow magnesium level in the morning (8) Ascites: Plan as above, now status post paracentesis (9) Hyperbilirubinemia: Secondary to cirrhosis, total bilirubin is down to 2.1 from 3.8 on admission, direct bilirubin is elevated at 1.3 Other LFTs are within normal limits (10) Peptic ulcer disease: With a history of significant bleeding approximately 1 year ago from peptic ulcer disease -Continue Protonix (11) DVT prophylaxis: SCDs Disposition-continued stay Subjective Patient feels less distended in the abdomen and less short of breath today after having 5 L of ascites removed. He does seem to be slightly lethargic and confused at times, but is able to tell me his location and the date as well as the amount of fluid that was removed during his paracentesis. He denies abdominal pain. No further rectal bleeding today. He denies lightheadedness. He has not yet had a bowel movement today He is eating Review of Systems Review of Systems: All systems reviewed & are unremarkable except as noted in HPI & below Physical Exam Constitutional: + ill appearing (Appears chronically ill); no acute distress Eyes: + scleral abnormality (Icterus) ENMT: Mouth: + malodorous breath Neck: trachea midline, no thyromegaly Respiratory: not tachypneic Auscultation: no crackles, no rhonchi and no wheezes Cardiovascular: Rate/Rhythm: regular rate and regular rhythm Extremities: + edema (2+ pitting edema of the legs to the knees bilaterally) Gastrointestinal (Abdomen): Inspection/Auscultation: + abdomen distended and normal bowel sounds; + abdomen abnormal to inspection Percussion/Palpation: abdomen soft, + hernia (Small umbilical hernia), + ascites and + fluid wave; abdomen nontender Musculoskeletal: Extremities: no cyanosis and no clubbing Skin: no rashes, warm and dry Neurologic: moves all extremities and awake; no focal motor deficits Psychiatric: Orientation: alert (But mildly lethargic), oriented to person, oriented to place, oriented to time and cooperative Affect: euthymic affect Results & Data Vital Signs (Past 12 Hours) Vital Signs Temp Pulse Pulse Pulse Resp BP BP 06/17/19 15:03 36.8 C 71 17 119/62 06/17/19 12:15 36.4 C L 73 20 130/61 06/17/19 08:00 36.9 C 75 74 18 122/60 122/60 06/17/19 04:00 37.2 C 79 16 108/60 Pulse Ox 06/17/19 15:03 97 06/17/19 12:15 98 06/17/19 08:00 93 06/17/19 04:00 92 Laboratory Results 06/17/19 06/17/19 06/17/19 Range/Units 07:47 07:47 07:47 WBC 6.17 (4.8-10.8) K/uL RBC 2.57 L (4.7-6.1) M/uL Hgb 8.4 L (14.0-18.0) g/dL Hct 25.1 L (42-52) % MCV 97.7 (80-100) fL MCH 32.7 (25-34) pg MCHC 33.5 (32-36) g/dL RDW Std Deviation 55.4 H (36.4-46.3) fL RDW Coeff of Ramses 15.5 H (11.5-14.5) % Plt Count 155 (130-400) K/uL MPV 9.1 (7.4-10.4) fL Immature Gran % (Auto) 0.3 % Neut % (Auto) 60.3 % Lymph % (Auto) 19.6 % [place] % (Auto) 14.4 % Eos % (Auto) 4.9 % Baso % (Auto) 0.5 % Immature Gran # (Auto) 0.02 (0.00-0.02) K/uL Neut # (Auto) 3.72 (1.4-6.5) K/uL Lymph # (Auto) 1.21 (1.2-3.4) K/uL [place] # (Auto) 0.89 H (0.11-0.59) K/uL Eos # (Auto) 0.30 (0-0.5) K/uL Baso # (Auto) 0.03 (0-0.2) K/uL PT 15.8 H (9.0-12.0) Seconds INR 1.6 H (0.9-1.1) Sodium 141 (136-145) mmol/L Potassium 3.6 (3.5-5.1) mmol/L Chloride 109 H (98-107) mmol/L Carbon Dioxide 26 (21-32) mmol/L Anion Gap 7.0 (3-11) BUN 16 (7-18) mg/dl Creatinine 0.92 (0.6-1.4) mg/dl Est Cr Clr Drug Dosing 85.3 ml/min Est GFR ( Amer) 99.4 Est GFR (Non-Af Amer) 85.8 BUN/Creatinine Ratio 17.2 (10-20) Glucose 111 H (70-99) mg/dl Calcium 7.8 L (8.5-10.1) mg/dl Magnesium 1.8 (1.8-2.4) mg/dl Total Bilirubin 2.1 H (0.2-1) mg/dl Direct Bilirubin 1.3 H (0-0.2) mg/dl AST 33 (15-37) U/L ALT 13 (12-78) U/L Alkaline Phosphatase 107 (45-117) U/L Total Protein 5.8 L (6.4-8.2) gm/dl Albumin 1.7 L (3.4-5.0) gm/dl PG Care Time/CCT Total # of Minutes Spent Total Time Spent with Patient: Total time spent is greater than 50% in systems coordinator rdination of care (as documented) at patient's floor/unit and/or counseling patient: (1) GI (gastrointestinal bleed) GI bleed type/associated pathology: unspecified gastrointestinal hemorrhage type Qualified Code(s): K92.2 - Gastrointestinal hemorrhage, unspecified (2) Ascites Ascites type: due to alcoholic cirrhosis Qualified Code(s): K70.31 - Alcoholic cirrhosis of liver with ascites
--- NOTE | 2019-06-17 18:16 | Progress Note ---
DATE: 06/17/2019 SUBJECTIVE: The patient reports no abdominal pain or bleeding. He underwent a paracentesis today and had 5 liters of ascitic fluid removed. His abdomen feels less distended. There is a small leak at the puncture site on the left lower abdomen where the paracentesis was performed, but it is covered with bandage and contained. He is receiving some IV albumin now to replace some of the losses. Laboratory shows an albumin of 1.7, which is low. The patient has been drinking Boost as an outpatient and I asked him to double the dose that he is taking as an outpatient to try to improve his albumin. He does have an appointment at [place] on 06/28/2019 to continue his transplant evaluation. IMPRESSION AND PLAN: The patient has anemia from bleeding hemorrhoids, which have stopped. If this gets worse and he bleeds again, we may refer him to the colorectal surgeons. No other abnormalities were found on endoscopy. His ascites has been managed with diuretics and large volume paracenteses and hopefully be ready for discharge tomorrow after completing his albumin infusions. I can follow him up as an outpatient once he is out of the hospital.
[2019-06-18 06:33] LABS: Basophils # (auto) 0.03 K/uL (0-0.2); Basophils % (auto) 0.7 %; Eosinophils # (auto) 0.26 K/uL (0-0.5); Eosinophils % (auto) 5.8 %; Hematocrit (blood only) 24.7 % (42-52); Hemoglobin 8.4 g/dL (14.0-18.0); Lymphocytes # (auto) 1.06 K/uL (1.2-3.4); Lymphocytes % (auto) 23.5 %; Mean Corpuscular Hemoglobin 33.1 pg (25-34); Mean Corpuscular Volume 97.2 fL (80-100); Mean Platelet Volume 9.3 fL (7.4-10.4); Monocytes # (auto) 0.69 K/uL (0.11-0.59); Monocytes % (auto) 15.3 %; Neutrophils # (auto) 2.48 K/uL (1.4-6.5); Neutrophils % (auto) 54.7 %; Platelet Count 113 K/uL (130-400); RDW Coefficient of Variation 15.3 % (11.5-14.5); RDW Standard Deviation 54.2 fL (36.4-46.3); Red Blood Count 2.54 M/uL (4.7-6.1); White Blood Count 4.52 K/uL (4.8-10.8)
[2019-06-18 06:43] LABS: INR 1.8 (0.9-1.1); Prothrombin Time 17.5 Seconds (9.0-12.0)
[2019-06-18 07:04] LABS: Albumin Level 2.1 gm/dl (3.4-5.0); Bilirubin Direct 1.3 mg/dl (0-0.2); Calcium 7.6 mg/dl (8.5-10.1); Creatinine Clr Calc Pharmacy 83.5 ml/min; Est GFR (African American) 96.8; Est GFR (Non-African American) 83.6; Magnesium 1.6 mg/dl (1.8-2.4); Potassium 3.6 mmol/L (3.5-5.1)
[2019-06-18 07:09] LABS: Bilirubin,Total 2.9 mg/dl (0.2-1)
[2019-06-18] MEDS: FUROSEMIDE 40 MG TAB PO SCH ×2 (08:37→16:46)
[2019-06-18] MEDS: PANTOprazole 40 MG TAB PO SCH (08:37)
[2019-06-18] MEDS: PROPRANOLOL HCL 20 MG TAB PO SCH ×2 (08:37→20:33)
--- NOTE | 2019-06-18 15:42 | Ultrasound Report ---
US abdomen ltd ascites CLINICAL HISTORY: 68 years-old Male presenting with ascites, ascites leak. TECHNIQUE: Real-time grayscale ultrasound imaging of the abdomen was performed for a limited evaluati on for ascites check. COMPARISON: 06/17/2019. FINDINGS: All 4 quadrants of the abdomen were evaluated for ascites. Only trace simple appearing ascites was ev ident throughout the abdomen. The volume was not deemed sufficient to safely drain. IMPRESSION: 1. Trace abdominal ascites. Paracentesis not able to be performed. Electronically signed by: Markie Hobbs M.D. 06/18/2019 3:41 PM
[2019-06-18] MEDS: ALBUMIN 25% 50 ML IV SCH ×4 (15:44→18:43)
--- NOTE | 2019-06-18 20:11 | Hospitalist Progress Note ---
Date of Service June 18, 2019 Assessment & Plan (1) GI (gastrointestinal bleed): He presented with lower GI bleed with bright red blood per rectum, now status post colonoscopy which did show moderate internal hemorrhoids that are not currently bleeding on 06/16 -Hemoglobin has dropped from 12 down to 8.4 and then remained the same today, remains hemodynamically stable with low normal blood pressures in the setting of recent large volume paracentesis Had a small amount of rectal bleeding on 06/18 again INR remains elevated due to end-stage liver disease at 1.8 without receiving any Coumadin in many days - [facility] GI consult appreciated -Continue to hold warfarin -Follow CBC again in the morning -Consented for blood and 2 units are waiting just in case -Would plan to hold warfarin for at least a few more days to ensure no further bleeding (2) Internal hemorrhoid, bleeding: As above (3) Acute blood loss anemia: As above Hemoglobin stable today at 8.4 -Transfuse as needed for hemoglobin less than 7.5 or continued bleeding -Will need iron pills on discharge -Follow CBC in the morning (4) Alcoholic cirrhosis of liver: Stopped drinking in 2014 after diagnosis. Follows with [facility] GI and working on possible liver transplant at [place]. - Continue beta-adrianna with propranolol 60 mg p.o. twice daily - Continue amiloride (daughter will bring in from home for tomorrow) and Lasix twice daily for his ascites -Had large amount of ascites on examination and was tachypneic, had abdominal distention but no pain-now status post paracentesis removing 5 L on 06/17 and has had another 1.7 L out through the ascitic leak on 06/18 -Give another 50 g of IV albumin today as albumin very low at 1.7 and had paracentesis-albumin now up to 2.1 -Reassess tomorrow-hopeful that ascites leak will stop -Continue ostomy bag over the paracentesis site -Follow LFTs, INR, CBC, CMP -Continue follow-up with transplant team -Add boost twice daily (5) Hypertension: Hypertensive initially, now blood pressures on the lower side status post paracentesis and blood loss - Continue beta-adrianna & diuretics with caution (6) Portal vein thrombosis: Diagnosed in 03/2019. On warfarin and [facility]. - Holding warfarin as above -We will restart warfarin as soon as possible after hemoglobin stabilizes -This has significantly worsened his ascites as per the daughter-we will discuss with GI about further treatment options if not able to return onto Coumadin due to bleeding (7) Hypomagnesemia: Magnesium low again today Replace with IV magnesium 2 g -Follow magnesium level in the morning (8) Ascites: Plan as above, now status post paracentesis -Leaking from ascites leak with ostomy bag in place (9) Hyperbilirubinemia: Secondary to cirrhosis, total bilirubin is down to 2.9 from 3.8 on admission, direct bilirubin is elevated at 1.3 Other LFTs are within normal limits (10) Peptic ulcer disease: With a history of significant bleeding approximately 1 year ago from peptic ulcer disease -Continue Protonix (11) Thrombocytopenia: Platelets have dropped to 113 Secondary to liver disease -Follow CBC in the morning (12) DVT prophylaxis: SCDs Disposition-continued stay Subjective Patient continues to leak ascites from his paracentesis site. He has had about 1.7 L out in his ostomy bag at that site throughout the day. He denies abdominal pain. Is mildly short of breath. He also reports having bright red blood with his small brown bowel movement today. He was sent down for repeat paracentesis but the ultrasound apparently did not show enough ascites to safely tap Review of Systems Review of Systems: All systems reviewed & are unremarkable except as noted in HPI & below Physical Exam Constitutional: + ill appearing (Appears chronically ill); no acute distress Eyes: + scleral abnormality (Icterus) ENMT: external ear and nose normal, oropharynx normal Mouth: + malodorous breath Neck: trachea midline, no thyromegaly Respiratory: not tachypneic Auscultation: no crackles, no rhonchi and no wheezes Cardiovascular: Rate/Rhythm: regular rate and regular rhythm Extremities: + edema (+ pitting edema of the legs to the knees bilaterally left greater than right, significantly improved from previous) Gastrointestinal (Abdomen): Inspection/Auscultation: + abdomen distended (Very minimally but much improved from previous) and normal bowel sounds; + abdomen abnormal to inspection (Ostomy bag over left lateral abdominal wall with yellow ascitic fluid ) Percussion/Palpation: abdomen soft and + hernia (Small umbilical hernia); abdomen nontender Musculoskeletal: Extremities: no cyanosis and no clubbing Skin: no rashes, warm and dry Neurologic: moves all extremities and awake; no focal motor deficits Psychiatric: A+Ox3, euthymic affect Orientation: alert, oriented to person, oriented to place, oriented to time and cooperative Affect: euthymic affect Results & Data Vital Signs (Past 12 Hours) Vital Signs Temp Pulse Pulse Resp BP Pulse Ox 06/18/19 17:36 78 114/60 06/18/19 16:55 78 100/62 06/18/19 15:37 36.6 C 66 18 101/54 L 97 06/18/19 11:39 96 Laboratory Results 06/18/19 06/18/19 06/18/19 Range/Units 06:17 06:17 06:17 WBC 4.52 L (4.8-10.8) K/uL RBC 2.54 L (4.7-6.1) M/uL Hgb 8.4 L (14.0-18.0) g/dL Hct 24.7 L (42-52) % MCV 97.2 (80-100) fL MCH 33.1 (25-34) pg MCHC 34.0 (32-36) g/dL RDW Std Deviation 54.2 H (36.4-46.3) fL RDW Coeff of Ramses 15.3 H (11.5-14.5) % Plt Count 113 L (130-400) K/uL MPV 9.3 (7.4-10.4) fL Immature Gran % (Auto) 0.0 % Neut % (Auto) 54.7 % Lymph % (Auto) 23.5 % [place] % (Auto) 15.3 % Eos % (Auto) 5.8 % Baso % (Auto) 0.7 % Immature Gran # (Auto) 0.00 (0.00-0.02) K/uL Neut # (Auto) 2.48 (1.4-6.5) K/uL Lymph # (Auto) 1.06 L (1.2-3.4) K/uL [place] # (Auto) 0.69 H (0.11-0.59) K/uL Eos # (Auto) 0.26 (0-0.5) K/uL Baso # (Auto) 0.03 (0-0.2) K/uL PT 17.5 H (9.0-12.0) Seconds INR 1.8 H (0.9-1.1) Sodium 139 (136-145) mmol/L Potassium 3.6 (3.5-5.1) mmol/L Chloride 107 (98-107) mmol/L Carbon Dioxide 26 (21-32) mmol/L Anion Gap 6.0 (3-11) BUN 14 (7-18) mg/dl Creatinine 0.94 (0.6-1.4) mg/dl Est Cr Clr Drug Dosing 83.5 ml/min Est GFR ( Amer) 96.8 Est GFR (Non-Af Amer) 83.6 BUN/Creatinine Ratio 15.0 (10-20) Glucose 86 (70-99) mg/dl Calcium 7.6 L (8.5-10.1) mg/dl Magnesium 1.6 L (1.8-2.4) mg/dl Total Bilirubin 2.9 H (0.2-1) mg/dl Direct Bilirubin 1.3 H (0-0.2) mg/dl AST 30 (15-37) U/L ALT 14 (12-78) U/L Alkaline Phosphatase 88 (45-117) U/L Total Protein 6.0 L (6.4-8.2) gm/dl Albumin 2.1 L (3.4-5.0) gm/dl Crossmatch 06/15/19 Range/Units 10:50 WBC (4.8-10.8) K/uL RBC (4.7-6.1) M/uL Hgb (14.0-18.0) g/dL Hct (42-52) % MCV (80-100) fL MCH (25-34) pg MCHC (32-36) g/dL RDW Std Deviation (36.4-46.3) fL RDW Coeff of Ramses (11.5-14.5) % Plt Count (130-400) K/uL MPV (7.4-10.4) fL Immature Gran % (Auto) % Neut % (Auto) % Lymph % (Auto) % [place] % (Auto) % Eos % (Auto) % Baso % (Auto) % Immature Gran # (Auto) (0.00-0.02) K/uL Neut # (Auto) (1.4-6.5) K/uL Lymph # (Auto) (1.2-3.4) K/uL [place] # (Auto) (0.11-0.59) K/uL Eos # (Auto) (0-0.5) K/uL Baso # (Auto) (0-0.2) K/uL PT (9.0-12.0) Seconds INR (0.9-1.1) Sodium (136-145) mmol/L Potassium (3.5-5.1) mmol/L Chloride (98-107) mmol/L Carbon Dioxide (21-32) mmol/L Anion Gap (3-11) BUN (7-18) mg/dl Creatinine (0.6-1.4) mg/dl Est Cr Clr Drug Dosing ml/min Est GFR ( Amer) Est GFR (Non-Af Amer) BUN/Creatinine Ratio (10-20) Glucose (70-99) mg/dl Calcium (8.5-10.1) mg/dl Magnesium (1.8-2.4) mg/dl Total Bilirubin (0.2-1) mg/dl Direct Bilirubin (0-0.2) mg/dl AST (15-37) U/L ALT (12-78) U/L Alkaline Phosphatase (45-117) U/L Total Protein (6.4-8.2) gm/dl Albumin (3.4-5.0) gm/dl Crossmatch See Detail PG Care Time/CCT Total # of Minutes Spent Total Time Spent with Patient: Total time spent is greater than 50% in coordination of care (as documented) at patient's floor/unit and/or counseling patient: (1) GI (gastrointestinal bleed) GI bleed type/associated pathology: unspecified gastrointestinal hemorrhage type Qualified Code(s): K92.2 - Gastrointestinal hemorrhage, unspecified (2) Ascites Ascites type: due to alcoholic cirrhosis Qualified Code(s): K70.31 - Alcoholic cirrhosis of liver with ascites
[2019-06-19 06:01] LABS: Basophils # (auto) 0.02 K/uL (0-0.2); Basophils % (auto) 0.4 %; Eosinophils # (auto) 0.22 K/uL (0-0.5); Eosinophils % (auto) 4.7 %; Hematocrit (blood only) 23.7 % (42-52); Immature Granulocytes # (auto) 0.01 K/uL (0.00-0.02); Immature Granulocytes % (auto) 0.2 %; Lymphocytes # (auto) 0.98 K/uL (1.2-3.4); Mean Corpuscular Hemoglobin 32.8 pg (25-34); Mean Corpuscular Hgb Conc 33.8 g/dL (32-36); Mean Corpuscular Volume 97.1 fL (80-100); Monocytes # (auto) 0.51 K/uL (0.11-0.59); Monocytes % (auto) 10.9 %; Neutrophils # (auto) 2.93 K/uL (1.4-6.5); Neutrophils % (auto) 62.8 %; Platelet Count 104 K/uL (130-400); RDW Coefficient of Variation 15.2 % (11.5-14.5); RDW Standard Deviation 54.1 fL (36.4-46.3); Red Blood Count 2.44 M/uL (4.7-6.1); White Blood Count 4.67 K/uL (4.8-10.8)
[2019-06-19 06:32] LABS: Albumin Level 2.4 gm/dl (3.4-5.0); Bilirubin Direct 1.2 mg/dl (0-0.2); Calcium 7.7 mg/dl (8.5-10.1); Creatinine Clr Calc Pharmacy 77.7 ml/min; Est GFR (African American) 88.8; Est GFR (Non-African American) 76.6; Magnesium 1.6 mg/dl (1.8-2.4); Potassium 3.6 mmol/L (3.5-5.1)
[2019-06-19 06:35] LABS: Bilirubin,Total 2.8 mg/dl (0.2-1)
--- NOTE | 2019-06-19 08:05 | Progress Note ---
DATE: 06/19/2019 SUBJECTIVE: The patient had some rectal bleeding again yesterday, so his Coumadin was held. His hemoglobin today is 8, which is a little bit low to be discharged, so I would recommend that he get a couple units of blood today, so he is a little bit of cushion in case he has more bleeding. If his bleeding continues off and on, we may need to send him to the colorectal surgeons as an outpatient to have his hemorrhoids addressed. He is having a bowel movement this morning which has no blood in it. He continues to leak some serous fluid from his paracentesis site which has an ostomy bag on it. Other than a little bit of pain at the puncture site, first paracentesis, he is doing well otherwise. PHYSICAL EXAMINATION: VITAL SIGNS: His vital signs are normal. Blood pressure is 118/55, pulse 70, respirations 16, temperature is 36.7, O2 saturation on room air 96%. ABDOMEN: Shows an ostomy bag in the left lower quadrant with some clear yellow fluid in the ostomy bag. IMPRESSION: The patient has cirrhosis with rectal bleeding from hemorrhoids which appears to be stopped. He is a little bit anemic and I would recommend 2 units of red blood cells today. I will continue to need the ostomy bag over his puncture site until that heals over. I would wait probably a week before restarting the Coumadin as an outpatient due to the bleeding yesterday from his hemorrhoids.
[2019-06-19] MEDS: PANTOprazole 40 MG TAB PO SCH (09:23)
[2019-06-19] MEDS: FUROSEMIDE 40 MG TAB PO SCH ×2 (09:23→17:30)
[2019-06-19] MEDS: PROPRANOLOL HCL 20 MG TAB PO SCH ×2 (09:23→21:00)
[2019-06-19] MEDS ORDERED: MAGNESIUM OXIDE 400 MG TAB PO ONE (10:17)
[2019-06-19] MEDS ORDERED: SODIUM CHLORIDE 0.9% 250 ML IV PRN ×3 (11:02→11:37)
[2019-06-19] MEDS ORDERED: FUROSEMIDE 40 MG in SYRINGE 0 ML IV SCH (12:00)
--- NOTE | 2019-06-19 17:24 | Hospitalist Progress Note ---
Date of Service June 19, 2019 Assessment & Plan (1) GI (gastrointestinal bleed): He presented with lower GI bleed with bright red blood per rectum Now status post colonoscopy on 06/16 which did show moderate internal hemorrhoids that were not actively bleeding -Hemoglobin has dropped from 12 down to 8.0 and had some recurrent mild bright red blood per rectum on 06/18 Remains hemodynamically stable with low normal blood pressures in the setting of recent large volume paracentesis INR remains elevated due to end-stage liver disease at 1.8 without receiving any Coumadin in many days - [facility] GI consult appreciated -Continue to hold warfarin x1 week and can restart at that time if no further bleeding as per GI recommendations -Transfusing 2 units PRBCs on 06/19 with IV Lasix in between -Follow CBC again in the morning (2) Internal hemorrhoid, bleeding: As above GI recommends consultation with colorectal surgeon if continues to have persistent bleeding in the future from his moderately sized internal hemorrhoids (3) Acute blood loss anemia: As above Hemoglobin dropped again today to 8.0 -GI recommends transfusion of 2 units PRBCs today prior to discharge in case has further bleeding in the future -Will need iron pills on discharge -Follow CBC in the morning (4) Alcoholic cirrhosis of liver: Stopped drinking in 2014 after diagnosis. Follows with [facility] GI and working on possible liver transplant at [place]. - Continue beta-adrianna with propranolol 60 mg p.o. twice daily - Continue amiloride (daughter will bring in from home) and Lasix twice daily for his ascites -Had large amount of ascites on examination and was tachypneic, had abdominal distention but no pain-now status post paracentesis removing 5 L on 06/17 and has had another 1.7 L out through the ascitic leak on 06/18 -Received 50 g of IV albumin 2 days in a row as albumin very low at 1.7 which then improved to 2.1 -Status post paracentesis as above -Follow LFTs, INR, CBC, CMP -Continue follow-up with transplant team -Added boost twice daily (5) Hypertension: Hypertensive initially, then blood pressures on the lower side status post paracentesis and blood loss anemia Blood pressures improved today - Continue beta-adrianna & diuretics with caution (6) Portal vein thrombosis: Diagnosed in 03/2019. On warfarin and [facility]. - Holding warfarin as above -We will restart warfarin in approximately 1 week as above -His PVT has significantly worsened his ascites as per the daughter-we will discuss with GI about further treatment options if not able to return onto Coumadin due to bleeding (7) Hypomagnesemia: Magnesium low again today Replace with p.o. magnesium -Follow magnesium level in the morning (8) Ascites: Plan as above, now status post paracentesis -Leaking from ascites leak with ostomy bag in place-almost completely resolved now -Continue amiloride, Lasix -Increase protein in diet (9) Hyperbilirubinemia: Secondary to cirrhosis, total bilirubin is down to 2.8 from 3.8 on admission, direct bilirubin is elevated at 1.3 Other LFTs are within normal limits (10) Peptic ulcer disease: With a history of significant bleeding approximately 1 year ago from peptic ulcer disease -Continue Protonix (11) Thrombocytopenia: Platelets have dropped to 104 Secondary to liver disease -Follow CBC in the morning (12) DVT prophylaxis: SCDs Disposition-continued stay for need for transfusion, hopeful for discharge to home tomorrow Consult PT/OT to work with him in the morning to make sure he is safe for discharge to home Subjective Patient denies abdominal pain. He is finally had a significant decrease in the amount of ascites leak into the ostomy bag. There is only a few mL's of fluid in the bag when I saw him today. He denies lightheadedness but has not been out of bed much. His hemoglobin did drop a little bit lower today to 8.0. He had a bowel movement this morning with no blood. Denies chest pain or shortness of breath. Review of Systems Review of Systems: All systems reviewed & are unremarkable except as noted in HPI & below Physical Exam Constitutional: + ill appearing (Appears chronically ill); no acute distress Eyes: + scleral abnormality (Icterus) ENMT: external ear and nose normal, oropharynx normal Mouth: + malodorous breath Neck: trachea midline, no thyromegaly Respiratory: not tachypneic Auscultation: no crackles, no rhonchi and no wheezes Cardiovascular: Rate/Rhythm: regular rate and regular rhythm Extremities: + edema (+ pitting edema of the legs to the knees bilaterally left greater than right, significantly improved from previous) Gastrointestinal (Abdomen): Inspection/Auscultation: normal bowel sounds; + abdomen abnormal to inspection (Ostomy bag over left lateral abdominal wall with minimal yellow ascitic fluid ) and abdomen not distended Percussion/Palpation: abdomen soft and + hernia (Small umbilical hernia); abdomen nontender Musculoskeletal: Extremities: no cyanosis and no clubbing Skin: no rashes, warm and dry Neurologic: moves all extremities and awake; no focal motor deficits Psychiatric: Orientation: alert, oriented to person, oriented to place, oriented to time and cooperative Affect: euthymic affect Results & Data Vital Signs (Past 12 Hours) Vital Signs Temp Pulse Pulse Resp BP BP Pulse Ox 06/19/19 17:12 36.6 C 65 18 127/60 06/19/19 16:41 36.7 C 64 18 117/64 97 06/19/19 16:00 36.6 C 65 18 137/66 96 06/19/19 15:00 36.6 C 68 18 130/70 97 06/19/19 14:28 36.6 C 69 18 127/63 97 06/19/19 13:58 36.3 C L 64 18 120/61 95 06/19/19 13:43 36.6 C 67 20 116/64 98 06/19/19 13:25 36.7 C 75 18 126/74 06/19/19 07:28 36.7 C 70 16 118/55 L 96 Laboratory Results 06/19/19 06/19/19 06/19/19 Range/Units 11:16 05:39 05:39 WBC 4.67 L (4.8-10.8) K/uL RBC 2.44 L (4.7-6.1) M/uL Hgb 8.0 L (14.0-18.0) g/dL Hct 23.7 L (42-52) % MCV 97.1 (80-100) fL MCH 32.8 (25-34) pg MCHC 33.8 (32-36) g/dL RDW Std Deviation 54.1 H (36.4-46.3) fL RDW Coeff of Ramses 15.2 H (11.5-14.5) % Plt Count 104 L (130-400) K/uL MPV 9.0 (7.4-10.4) fL Immature Gran % (Auto) 0.2 % Neut % (Auto) 62.8 % Lymph % (Auto) 21.0 % [place] % (Auto) 10.9 % Eos % (Auto) 4.7 % Baso % (Auto) 0.4 % Immature Gran # (Auto) 0.01 (0.00-0.02) K/uL Neut # (Auto) 2.93 (1.4-6.5) K/uL Lymph # (Auto) 0.98 L (1.2-3.4) K/uL [place] # (Auto) 0.51 (0.11-0.59) K/uL Eos # (Auto) 0.22 (0-0.5) K/uL Baso # (Auto) 0.02 (0-0.2) K/uL Sodium 141 (136-145) mmol/L Potassium 3.6 (3.5-5.1) mmol/L Chloride 109 H (98-107) mmol/L Carbon Dioxide 27 (21-32) mmol/L Anion Gap 5.0 (3-11) BUN 15 (7-18) mg/dl Creatinine 1.01 (0.6-1.4) mg/dl Est Cr Clr Drug Dosing 77.7 ml/min Est GFR ( Amer) 88.8 Est GFR (Non-Af Amer) 76.6 BUN/Creatinine Ratio 15.0 (10-20) Glucose 90 (70-99) mg/dl Calcium 7.7 L (8.5-10.1) mg/dl Magnesium 1.6 L (1.8-2.4) mg/dl Total Bilirubin 2.8 H (0.2-1) mg/dl Direct Bilirubin 1.2 H (0-0.2) mg/dl AST 27 (15-37) U/L ALT 13 (12-78) U/L Alkaline Phosphatase 85 (45-117) U/L Total Protein 6.0 L (6.4-8.2) gm/dl Albumin 2.4 L (3.4-5.0) gm/dl Blood Type A Positive Antibody Screen NEGATIVE Crossmatch See Detail PG Care Time/CCT Total # of Minutes Spent Total Time Spent with Patient: Total time spent is greater than 50% in coordination of care (as documented) at patient's floor/unit and/or counseling patient: (1) GI (gastrointestinal bleed) GI bleed type/associated pathology: unspecified gastrointestinal hemorrhage type Qualified Code(s): K92.2 - Gastrointestinal hemorrhage, unspecified (2) Ascites Ascites type: due to alcoholic cirrhosis Qualified Code(s): K70.31 - Alcoholic cirrhosis of liver with ascites
[2019-06-20 05:59] LABS: Basophils # (auto) 0.02 K/uL (0-0.2); Basophils % (auto) 0.4 %; Eosinophils # (auto) 0.27 K/uL (0-0.5); Eosinophils % (auto) 4.9 %; Hemoglobin 9.4 g/dL (14.0-18.0); Immature Granulocytes # (auto) 0.01 K/uL (0.00-0.02); Immature Granulocytes % (auto) 0.2 %; Lymphocytes # (auto) 1.07 K/uL (1.2-3.4); Lymphocytes % (auto) 19.3 %; Mean Corpuscular Hemoglobin 33.1 pg (25-34); Mean Corpuscular Hgb Conc 34.8 g/dL (32-36); Mean Corpuscular Volume 95.1 fL (80-100); Mean Platelet Volume 9.6 fL (7.4-10.4); Monocytes # (auto) 0.74 K/uL (0.11-0.59); Monocytes % (auto) 13.4 %; Neutrophils # (auto) 3.42 K/uL (1.4-6.5); Neutrophils % (auto) 61.8 %; Platelet Count 101 K/uL (130-400); RDW Coefficient of Variation 16.8 % (11.5-14.5); RDW Standard Deviation 57.9 fL (36.4-46.3); Red Blood Count 2.84 M/uL (4.7-6.1); White Blood Count 5.53 K/uL (4.8-10.8)
[2019-06-20 06:12] LABS: INR 1.7 (0.9-1.1); Prothrombin Time 17.1 Seconds (9.0-12.0)
[2019-06-20 07:37] LABS: Albumin Level 2.3 gm/dl (3.4-5.0); BUN Creatinine Ratio 16.7 (10-20); Calcium 7.7 mg/dl (8.5-10.1); Creatinine Clr Calc Pharmacy 94.5 ml/min; Est GFR (African American) 105.5; Magnesium 1.7 mg/dl (1.8-2.4); Potassium 3.4 mmol/L (3.5-5.1)
[2019-06-20 07:39] LABS: Albumin Globulin Ratio 0.6 (0.9-2); Bilirubin,Total 2.6 mg/dl (0.2-1); Globulin 3.8 gm/dl (2.5-4.0); Total Protein 6.1 gm/dl (6.4-8.2)
[2019-06-20] MEDS: FUROSEMIDE 40 MG TAB PO SCH (08:13)
[2019-06-20] MEDS: PROPRANOLOL HCL 20 MG TAB PO SCH (08:13)
[2019-06-20] MEDS: PANTOprazole 40 MG TAB PO SCH (08:13)
[2019-06-20] MEDS ORDERED: POTASSIUM CHLORIDE 20 MEQ TABCR PO STA (09:51)
[2019-06-20] MEDS ORDERED: MAGNESIUM SULFATE / D5W 1 GM/100 ML BAG IV ONE (10:15)
--- NOTE | 2019-06-20 12:43 | Progress Note ---
DATE: 06/20/2019 The patient received 2 units of blood yesterday and feels a little bit stronger. His hemoglobin went from 8-9.4 with the transfusion. He also has been receiving IV albumin following his paracentesis and his albumin is now up to 2.3 from 1.7, which is an improvement. His bilirubin is 2.6, INR 1.7, creatinine is 0.83. He has very minimal if any peripheral edema. The puncture site in the left lower abdomen where he had his last paracentesis which was leaking a lot of fluid has now. This is sealed over and there is nothing in his ostomy bag at all right now. His abdomen is nontender and he does not appear to be encephalopathic at all and he is having no rectal bleeding. PHYSICAL EXAMINATION: VITAL SIGNS: Blood pressure is 147/76, pulse 62, temperature is 36.9, O2 saturation on room air is 97%. ABDOMEN: Shows an ostomy bag in left lower quadrant over the puncture site for paracentesis with no fluid in the bag. There is trace to 0 peripheral edema, no signs of encephalopathy. IMPRESSION: The patient is doing well. His bleeding has stopped. His hemoglobin is in a safe range after his transfusion. He has an appointment a week from tomorrow at [facility] transplant center for continued evaluation for liver transplant. If he has more bleeding rectally, we will send to the colorectal surgeons for evaluation. I plan on holding his Coumadin for at least another week given his recent bleeding. The patient is probably able to be discharged from a GI standpoint at this point.
--- NOTE | 2019-06-20 12:58 | Discharge Summary ---
Date of Service June 20, 2019 Admission HPI Per Admitting Provider 68yo M w/ hx alcoholic cirrhosis who presents with lower GI bleed. Per patient, he had the urge to have a BM. He tried to go, but had about 1 cup of bright red blood instead. He stood up and had a small amount of additional blood. Otherwise, has not had anything like this in the past. He had an ulcer in the winter, and was at [facility] for procedure then, and he was worried this was similar and so decided to come to the hospital. Otherwise, no lightheadedness, no dizziness, no feeling faint, no other symptoms. Principal Diagnosis BRBPR, Acute blood loss anemia Discharge Exam Constitutional + ill appearing (Appears chronically ill); no acute distress Eyes + scleral abnormality (Icterus) ENMT external ear and nose normal, oropharynx normal Mouth: + malodorous breath Neck trachea midline, no thyromegaly Respiratory not tachypneic Auscultation: no crackles, no rhonchi and no wheezes Cardiovascular Rate/Rhythm: regular rate and regular rhythm Extremities: + edema (+ pitting edema of the legs to the knees bilaterally left greater than right, significantly improved from previous) Gastrointestinal (Abdomen) Inspection/Auscultation: normal bowel sounds; + abdomen abnormal to inspection (Ostomy bag over left lateral abdominal wall with minimal yellow ascitic fluid ) and abdomen not distended Percussion/Palpation: abdomen soft and + hernia (Small umbilical hernia); abdomen nontender Musculoskeletal Extremities: no cyanosis and no clubbing Skin no rashes, warm and dry Neurologic moves all extremities and awake; no focal motor deficits Psychiatric Orientation: alert, oriented to person, oriented to place, oriented to time and cooperative Affect: euthymic affect Discharge Data Allergies Allergy/AdvReac Type Severity Reaction Status Date / Time terazosin Allergy Unknown UNKNOWN Verified 06/25/19 10:24 trazodone AdvReac Severe PRIAPISM Verified 06/25/19 10:24 Consultations 06/15/19 11:54 ED Decision to Admit Stat 06/15/19 13:54 Consult Gastroenterology Routine Procedures Performed Operation Date: 06/16/19 09:00 Actual Procedures p Colonoscopy - Yobany Agrawal Ordered Studies 06/15/19 11:49 US duplex portal hepatic veins Stat 06/17/19 08:00 US paracentesis abd w/image Routine 06/18/19 14:17 US abdomen ltd ascites Urgent Hospital Course (1) GI (gastrointestinal bleed): He presented with lower GI bleed with bright red blood per rectum Now status post colonoscopy on 06/16 which did show moderate internal hemorrhoids that were not actively bleeding -Hemoglobin has dropped from 12 down to 8.0 and had some recurrent mild bright red blood per rectum on 06/18 Hgb up to 9.4 on day of dc after 2 units PRBC transfused Remains hemodynamically stable with low normal blood pressures in the setting of recent large volume paracentesis INR remains elevated due to end-stage liver disease at 1.7 without receiving any Coumadin in many days - [facility] GI consult appreciated -Continue to hold warfarin x1 week and can restart at that time if no further bleeding as per GI recommendations -Transfused 2 units PRBCs on 06/19 with IV Lasix in between -Follow CBC as outpt with PCP (2) Internal hemorrhoid, bleeding: As above GI recommends consultation with colorectal surgeon if continues to have persistent bleeding in the future from his moderately sized internal hemorrhoids (3) Acute blood loss anemia: As above Hemoglobin dropped to 8.0 and transfused as above, hgb stable at 9.4 on day of discharge -Will need iron pills on discharge -Follow CBC closely as outpt (4) Alcoholic cirrhosis of liver: Stopped drinking in 2014 after diagnosis. Follows with [facility] GI and working on possible liver transplant at [facility]. - Continue beta-adrianna with propranolol 60 mg p.o. twice daily - Continue amiloride and Lasix twice daily for his ascites -Had large amount of ascites on examination and was tachypneic, had abdominal distention but no pain-now status post paracentesis removing 5 L on 06/17 and has had another 2 L out through the ascitic leak into an ostomy bag over the next 1- 2 days -Received 50 g of IV albumin 2 days in a row as albumin very low at 1.7 which then improved to 2.1 -Status post paracentesis as above -Follow LFTs, INR, CBC, CMP as outpt -Continue follow-up with transplant team -Added boost twice daily (5) Hypertension: Hypertensive initially, then blood pressures on the lower side status post paracentesis and blood loss anemia Blood pressures improved - Continue beta-adrianna & diuretics with caution (6) Portal vein thrombosis: Diagnosed in 03/2019. On warfarin and follows with [facility]. - Holding warfarin as above -We will restart warfarin in approximately 1 week as above -His PVT has significantly worsened his ascites as per the daughter-we will discuss with GI about further treatment options if not able to return onto Coumadin due to bleeding (7) Hypomagnesemia: Magnesium low Replace with p.o. magnesium Follow as outpt -continue amelioride (8) Ascites: Plan as above, now status post paracentesis -developed ascites leak s/p paracentesis at entry site-required ostomy bag in place-now resolved now -Continue amiloride, Lasix -Increase protein in diet (9) Hyperbilirubinemia: Secondary to cirrhosis, total bilirubin is down to 2.8 from 3.8 on admission, direct bilirubin is elevated at 1.3 Other LFTs are within normal limits -follow as outpt (10) Peptic ulcer disease: With a history of significant bleeding approximately 1 year ago from peptic ulcer disease -Continue Protonix (11) Thrombocytopenia: Platelets stable in low 100s Secondary to liver disease -Follow CBC as outpt (12) DVT prophylaxis: SCDs Disposition-stable for dc to home with close f/u with GI and PCP Total Time Total Time Spent Total Time Spent (In Minutes): >30 min Total Time Includes: Examination of the Patient, Discharge Planning and Medication Reconciliation Discharge Plan Discharge Items Patient Disposition: Home - Home Health Services Reason For Visit: LOWER GI BLEED Condition on Discharge: Fair Activity: As commented below Lifting: Gradually increase as tolerated Bathing: No limitations Exercise/Sports: Gradually increase as tolerated Non-emergency contact: Primary Care Provider and Dog Track Kennel Manager Follow-up/Referrals: [facility] [Provider Group] - 06/22/19 1:30 pm (Please, follow up at the [facility] (Coumadin Clinic) on FridayJune 22 at 1:30 pm. *If you need to change this appointment, call central scheduling at [phone].) Cara Flowers MD [Primary Care Provider] - 06/25/19 10:15 am (Please, follow up with Dr. Flowers on FridayJune 25 at 10:15 am. 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 You lost some blood and had a blood transfusion to replace the blood lost. Please remain off of your Coumadin for at least 1 week. Follow up with the anticoagulation clinic as scheduled in 2 days. You also had a paracentesis to removed 5 liters of fluid and then had almost another 2 liters leak out aover the next day. Please continue your other usual medications as before and follow up with Gastroenterology as planned. Pending Studies at Discharge: No Stand-Alone Forms: My [facility] Medications and DC Order Prescriptions: Discontinued warfarin 1 mg tablet See Patient Comments PO UD RF: 0 No Action hepatitis B virus vacc.rec(PF) 20 mcg/mL syringe 20 mcg IM ONCE Qty: 1 RF: 0 amiloride 5 mg tablet 10 mg PO QAM 90 Days Qty: 180 RF: 1 pantoprazole 40 mg tablet,delayed release (DR/EC) 40 mg PO QAM Qty: 90 RF: 1 propranolol 60 mg tablet 60 mg PO BID Qty: 180 RF: 1 furosemide 40 mg tablet 40 mg PO BID Qty: 180 RF: 1 ferrous sulfate 325 mg (65 mg iron) tablet 325 mg PO DAILY Qty: 30 RF: 5 Discharge Orders: Discharge Order (Routine); Ordered 06/20/19 Ordered By: Shaila Gordon/Other Patient Handouts: Hemorrhoids, ED Diverticulosis Admission Data Admit Date/Time: 06/17/19 11:02 Attending Provider: Shaila Pichardo Admit Provider: Sincere Worthy Primary Care Provider: Cara Flowers Other Providers: Sincere Worthy ; Yobany Agrawal Other Interventions: Discharge Summary Assessment (RN) Last Done: 06/20/19 13:40 DC Date/Time DO NOT enter until pt leaves facility: 06/20/19 15:55
== END 2019-06-20 15:55 | disposition home health service (06) | DRG 377 ==
LOC: 3W 10:23 → ED 10:23 → SUATTDRO 12:14 → 3W 13:22
DX: E83.42 Hypomagnesemia; D69.6 Thrombocytopenia, unspecified; K64.8 Other hemorrhoids; K92.2 Gastrointestinal hemorrhage, unspecified; D62 Acute posthemorrhagic anemia; I10 Essential (primary) hypertension; K70.31 Alcoholic cirrhosis of liver with ascites; I81 Portal vein thrombosis; E80.6 Other disorders of bilirubin metabolism; Z79.01 Long term (current) use of anticoagulants

== ENCOUNTER 2019-10-16 15:05 | Inpatient (IN) ==
[2019-10-16] MEDS ORDERED: PIPERACILL/TAZOBAC CONSULT ACTIVE PRN ×2 (15:18→19:37)
[2019-10-16] MEDS ORDERED: SODIUM CHLORIDE 0.9% 1000ML 1,000 ML IV ONE ×2 (15:18→17:39)
[2019-10-16] MEDS ORDERED: PIPERACILLIN/TAZOBACTAM 4.5 GM/120 ML BAG IV ONE (15:18)
[2019-10-16] MEDS ORDERED: LEVOFLOXACIN/D5W 750 MG/150 ML BAG IV SCH (15:30)
[2019-10-16] MEDS ORDERED: IOVERSOL 100ml IV PRN (15:36)
[2019-10-16 15:39] LABS: iSTAT Creatinine 1.8 mg/dl (0.6-1.3); iSTAT Hemoglobin 11.9 g/dl (14.0-18.0); iSTAT Ionized Calcium 1.03 mmol/l (1.12-1.32); iSTAT Potassium 5.9 mEq/L (3.3-5.0)
--- NOTE | 2019-10-16 15:53 | CT Scan Report ---
CT OF THE HEAD WITHOUT CONTRAST CLINICAL HISTORY: Altered mental status. COMPARISON STUDY: Head CT February 23, 2015. TECHNIQUE: Helical axial images of the head were obtained without IV contrast. Automated exposure con trol was utilized for the study. A dose lowering technique was utilized adhering to the principles o f ALARA. FINDINGS: No acute intracranial hemorrhage, midline shift or mass effect is present. The ventricular system is unremarkable. The basilar cisterns are patent. No extra-axial collections are present. Ther e are no findings to suggest acute dural sinus thrombosis or acute territorial infarct. No significan t calvarial abnormalities are present. Visualized portions of the sinuses and mastoid air cells are c lear. White matter hypodensities are unchanged and suggest small vessel disease. The left maxillary s inus is diminutive and opacified. This is chronic. IMPRESSION: No acute intracranial findings. ACT 112: Negative or not required by law. Electronically signed by: Karthikeyan Rashid M.D. 10/16/2019 3:51 PM
--- NOTE | 2019-10-16 15:59 | CT Scan Report ---
CT OF THE CERVICAL SPINE WITHOUT CONTRAST CLINICAL HISTORY: Altered mental status. COMPARISON STUDY: CTA of the neck March 19, 2018. TECHNIQUE: Helical axial images of the cervical spine were obtained without IV contrast. Sagittal a nd coronal reconstructions were viewed. Automated exposure control was utilized for the study. A do se lowering technique was utilized adhering to the principles of ALARA. FINDINGS: Alignment of the cervical spine is anatomic. Vertebral body heights are maintained. No acut e cervical spine fracture or subluxation is present. There is no prevertebral edema. Facet joints are intact. Moderate multilevel degenerative changes within the cervical spine are noted. A small suspe cted right neck contusion is noted. IMPRESSION: 1. No acute cervical spine fracture or subluxation. 2. Suspected small right neck contusion adjacent to the right sternocleidomastoid muscle. ACT 112: Negative or not required by law. Electronically signed by: Karthikeyan Rashid M.D. 10/16/2019 3:58 PM
[2019-10-16 16:11] LABS: Base Excess VBG -4.6 mEq/L; Oxygen Saturation VBG 85.7 %; pH VBG 7.43 (7.36-7.41)
--- NOTE | 2019-10-16 16:12 | CT Scan Report ---
CT OF THE CHEST WITH IV CONTRAST CLINICAL HISTORY: Altered mental status. Sepsis. Bruising. COMPARISON STUDY: Chest radiograph April 17, 2019. TECHNIQUE: Following IV administration of 90 mL of Optiray-320, helical axial images of the chest we re obtained. Sagittal and coronal reconstructions were viewed as well as maximal intensity projectio ns on an independent 3-D workstation. Automated exposure control was utilized for the study. A dose lowering technique was utilized adhering to the principles of ALARA. FINDINGS: There is no evidence for traumatic injury to the thoracic aorta. The heart is moderately e nlarged. Extensive coronary artery calcification is noted. There is bilateral gynecomastia. Lungs are suboptimally assessed given respiratory motion. There is biapical scarring. Multiple groundglass opa cities within the lungs measure up to 3.2 cm. There is mild interstitial pulmonary edema. Multiple ol d bilateral rib fractures are noted. Sensitivity for detection of acute fractures is diminished given motion artifact. There is a possible acute nondisplaced anterior right seventh rib fracture. There i s no pneumothorax or pleural effusion. The abdomen and pelvis will be reported separately. IMPRESSION: 1. No evidence for traumatic injury to the thoracic aorta. 2. Evaluation for rib fractures compromised given motion artifact. Possible acute nondisplaced right seventh rib fracture. Numerous old bilateral rib fractures. No pneumothorax. 3. Multiple groundglass opacities within the lungs which favor an infectious process. A follow-up [facility] CT in one month to ensure resolution is recommended. 4. Mild interstitial pulmonary edema. 5. Moderate cardiomegaly and extensive coronary artery calcification. 6. Cirrhosis. ACT 112: Negative or not required by law. Electronically signed by: Karthikeyan Rashid M.D. 10/16/2019 4:11 PM
--- NOTE | 2019-10-16 16:18 | XRay Report ---
XR chest 1V portable CLINICAL HISTORY: Sepsis COMPARISON STUDY: Chest radiograph April 17, 2019. Chest CT performed earlier today. FINDINGS: There is no pneumothorax or pleural effusion. Interstitial thickening and patchy left lung airspace opacities are noted. There is cardiomegaly. IMPRESSION: 1. Interstitial thickening consistent with pulmonary edema. Left lung airspace opacities could reflec t superimposed pneumonia. 2. Moderate cardiomegaly. ACT 112: Negative or not required by law. Electronically signed by: Karthikeyan Rashid M.D. 10/16/2019 4:16 PM
--- NOTE | 2019-10-16 16:24 | Emergency Department Note ---
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 Protein (6.4-8.2) gm/dl Albumin (3.4-5.0) gm/dl Globulin (2.5-4.0) gm/dl Albumin/Globulin Ratio (0.9-2) Procalcitonin (0-0.5) ng/ml Urine Color [place] Urine Appearance Clear (Clear) Urine pH 5.0 (4.5-7.5) Ur Specific [place] 1.024 (1.000-1.030) Urine Protein Negative (Negative) Urine Glucose (UA) Negative (Negative) Urine Ketones Negative (Negative) Urine Blood 1+ H (Negative) Urine Nitrite Positive A (Negative) Urine Bilirubin 1+ H (Negative) Urine Urobilinogen Negative (Negative) Ur Leukocyte Esterase Trace H (Negative) Urine WBC (Auto) 1-5 (0-5) /hpf Urine RBC (Auto) 0-4 (0-4) /hpf U Hyaline Cast (Auto) >30 H (0-5) /lpf U Epithel Cells (Auto) 10-20 H (0-5) /lpf Urine Bacteria (Auto) Negative (Negative) Granular Casts 1-5 H (0) /lpf WBC Casts 1-5 H (0) /lpf Urine Yeast Not Reportable Urine Opiates Screen (Neg) Ur Methadone, Qual (Neg) Urine Barbiturates (Neg) Ur Phencyclidine (PCP) (Neg) U Amphetamin/Meth Scrn (Neg) MDMA (Ecstasy) Screen (Neg) U Benzodiazepines Scrn (Neg) Ur Cocaine Metabolite (Neg) U Marijuana (THC) Screen (Neg) Ethyl Alcohol mg/dL (0-3) mg/dl Blood Type Antibody Screen Imaging Data Radiologist's Impression: Radiology results as stated below per my review and the radiologist's interpretation: XR chest 1V portable CLINICAL HISTORY: Sepsis COMPARISON STUDY: Chest radiograph April 17, 2019. Chest CT performed earlier to day. FINDINGS: There is no pneumothorax or pleural effusion. Interstitial thickening and patchy left lung airspace opacities are noted. There is cardiomegaly. IMPRESSION: 1. Interstitial thickening consistent with pulmonary edema. Left lung airspace opacities could reflect superimposed pneumonia. 2. Moderate cardiomegaly. ACT 112: Negative or not required by law. Electronically signed by: Karthikeyan Rashid M.D. 10/16/2019 4:[address] OF THE HEAD WITHOUT CONTRAST CLINICAL HISTORY: Altered mental status. COMPARISON STUDY: Head CT February 23, 2015. TECHNIQUE: Helical axial images of the head were obtained without IV contrast. Automated exposure control was utilized for the study. A dose lowering technique was utilized adhering to the principles of ALARA. FINDINGS: No acute intracranial hemorrhage, midline shift or mass effect is present. The ventricular system is unremarkable. The basilar cisterns are patent. No extra-axial collections are present. There are no findings to suggest acute dural sinus thrombosis or acute territorial infarct. No significant calvarial abnormalities are present. Visualized portions of the sinuses and mastoid air cells are clear. White matter hypodensities are unchanged and suggest small vessel disease. The left maxillary sinus is diminutive and opacified. This is chronic. IMPRESSION: No acute intracranial findings. ACT 112: Negative or not required by law. Electronically signed by: Karthikeyan Rashid M.D. 10/16/2019 3:[address] OF THE CERVICAL SPINE WITHOUT CONTRAST CLINICAL HISTORY: Altered mental status. COMPARISON STUDY: CTA of the neck March 19, 2018. TECHNIQUE: Helical axial images of the cervical spine were obtained without IV contrast. Sagittal and coronal reconstructions were viewed. Automated exposure control was utilized for the study. A dose lowering technique was utilized adhering to the principles of ALARA. FINDINGS: Alignment of the cervical spine is anatomic. Vertebral body heights are maintained. No acute cervical spine fracture or subluxation is present. There is no prevertebral edema. Facet joints are intact. Moderate multilevel degenerative changes within the cervical spine are noted. A small suspected right neck contusion is noted. IMPRESSION: 1. No acute cervical spine fracture or subluxation. 2. Suspected small right neck contusion adjacent to the right sternocleidomastoid muscle. ACT 112: Negative or not required by law. Electronically signed by: Karthikeyan Rashid M.D. 10/16/2019 3:[address] OF THE CHEST WITH IV CONTRAST CLINICAL HISTORY: Altered mental status. Sepsis. Bruising. COMPARISON STUDY: Chest radiograph April 17, 2019. TECHNIQUE: Following IV administration of 90 mL of Optiray-320, helical axial images of the chest were obtained. Sagittal and coronal reconstructions were vi ewed as well as maximal intensity projections on an independent 3-D workstation. Automated exposure control was utilized for the study. A dose lowering technique was utilized adhering to the principles of ALARA. FINDINGS: There is no evidence for traumatic injury to the thoracic aorta. The heart is moderately enlarged. Extensive coronary artery calcification is noted. There is bilateral gynecomastia. Lungs are suboptimally assessed given respiratory motion. There is biapical scarring. Multiple groundglass opacities within the lungs measure up to 3.2 cm. There is mild interstitial pulmonary edema. Multiple old bilateral rib fractures are noted. Sensitivity for detection of acute fractures is diminished given motion artifact. There is a possible acute nondisplaced anterior right seventh rib fracture. There is no pneumothorax or pleural effusion. The abdomen and pelvis will be reported separately. IMPRESSION: 1. No evidence for traumatic injury to the thoracic aorta. 2. Evaluation for rib fractures compromised given motion artifact. Possible acute nondisplaced right seventh rib fracture. Numerous old bilateral rib fractures. No pneumothorax. 3. Multiple groundglass opacities within the lungs which favor an infectious process. A follow-up chest CT in one month to ensure resolution is recommended. 4. Mild interstitial pulmonary edema. 5. Moderate cardiomegaly and extensive coronary artery calcification. 6. Cirrhosis. ACT 112: Negative or not required by law. Electronically signed by: Karthikeyan Rashid M.D. 10/16/2019 4:[address] OF THE ABDOMEN AND PELVIS WITH CONTRAST CLINICAL HISTORY: Altered mental status. Sepsis. Abdominal bruising. COMPARISON STUDY: CT of the abdomen and pelvis April 17, 2019. TECHNIQUE: Following IV administration of 90 mL of Optiray-320, axial images of the abdomen and pelvis were obtained from the lung bases to the proximal femurs. Images were reviewed in the axial, sagittal, and coronal planes. IV contrast was administered without complication. Automated exposure control was utilized for the study. A dose lowering technique was utilized adhering to the principles of ALARA. CT DOSE: 2130.48 mGy.cm FINDINGS: Note that the chest will be reported separately. The liver is cirrhotic. Sensitivity for detection of hypervascular lesions is diminished on this single phase exam but no hepatic lesions are identified. Cavernous transformation of the portal vein is again noted. Large collaterals within the abdomen and pelvis are again noted. There is no evidence for a bowel obstruction. There is no evidence for traumatic injury to the liver, spleen, adrenal glands, kidneys or pancreas. Gallbladder is mildly distended. Penile prosthesis is noted. There is trace ascites, markedly diminished since prior CT. There is no hydronephrosis. No acute lumbar spine or pelvic fracture is identified. The appendix is normal. 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 IMPRESSION: 1. No acute traumatic findings within the abdomen or pelvis. 2. Cirrhosis with manifestations of portal hypertension including cavernous transformation of the portal vein with collateral formation and splenomegaly as shown on prior CT. 3. No bowel obstruction. ACT 112: Negative or not required by law. Electronically signed by: Karthikeyan Rashid M.D. 10/16/2019 4:23 PM ECG Data Attestation: I personally reviewed and interpreted this ECG as follows: Indication: + altered mental status Rate (beats per minute): 73 Rhythm: + normal sinus ECG ST segments: + T-wave inversions (Lateral and inferior) ECG Findings: + PVCs Comparison ECG Date: from (06/15/19) Change: the following changes noted (PVCs and TWIs are new) Blood Pressure Blood Pressure Findings: Low blood pressure Blood Pressure Disposition: further management by hospitalist [facility] Narrative Additional history is obtained from the patient's family members as well as the prehospital personnel. The patient's previous electronic medical records were reviewed. The patient is an 69-year-old male who presented to the emergency department for an evaluation. The patient was made a medic command call prior to arrival. There was discussion about transferring the patient to a tertiary center because of the prolonged transport time from where the patient's home is to our facility but also because the patient was significantly hypotensive and hypothermic. Unfortunately they were unable to secure air transport and the patient was brought to our facility for further evaluation. The patient was very altered when he first came to the emergency department. He would follow commands very intermittently. He was resuscitated using IV fluids and IV antibiotics. He was hypotensive initially but this improved with IV hydration. I discussed the patient's laboratory and radiographic studies with him as well as his family members. The patient was found to have signs of sepsis with elevation in white blood cell count. This could be secondary to all skin breakdown from the pressure ulcers that were noted on physical exam. He also has an area on his left ankle with skin breakdown with exposed surgical hardware. The patient was also found to have an elevation in his CPK as well as his troponin. He does have an abnormal EKG but this did not appear to be consistent with a STEMI rather there was significant ischemic changes with T wave inversions. I discussed the patient's condition with the litigator as well as the on-call [facility] hospitalist. They have agreed to evaluate the patient in the emergency department for further management and disposition. Impression & Plan Rhabdomyolysis, Pressure ulcer, Altered mental status, Sepsis, Non-ST elevation MN (NSTEMI), Abnormal EKG, Hypothermia Discharge Plan Visit Data Chief Complaint: Hypothermia ED Provider: Juan Miguel Kahn Discharge Problem: Rhabdomyolysis, Pressure ulcer, Altered mental status, Sepsis, Non-ST elevation MN (NSTEMI), Abnormal EKG, Hypothermia Patient Disposition: Being Evaluated by Hospitalist Forms Stand Alone Forms: My [facility] Prescriptions Prescriptions: No Action loperamide [Imodium A-D] 2 mg tablet 2 mg PO Q2H PRN (Reason: Diarrhea) RF: 0 amiloride 5 mg tablet 10 mg PO QAM 90 Days Qty: 180 RF: 1 pantoprazole 40 mg tablet,delayed release (DR/EC) 40 mg PO QAM Qty: 90 RF: 1 propranolol 60 mg tablet 60 mg PO BID Qty: 180 RF: 1 furosemide 40 mg tablet 40 mg PO BID Qty: 180 RF: 1 ketoconazole 2 % cream 1 appln TOP BID 28 Days Qty: 30 RF: 1 warfarin 1 mg tablet See Rx Instructions PO UD RF: 0 ferrous sulfate 325 mg (65 mg iron) tablet 325 mg PO DAILY Qty: 30 RF: 5 Anoro Ellipta 62.5-25 mcg/actuation Blister With Device 1 inh INHALATION DAILY RF: 0 Referrals Referrals: Cara Flowers MD [Primary Care Provider] - Discharge Problem: Rhabdomyolysis Qualifiers: Rhabdomyolysis type: non-traumatic Qualified Code(s): M62.82 - Rhabdomyolysis Pressure ulcer Qualifiers: Pressure injury location: unspecified location Pressure injury stage: unspecified pressure injury stage Qualified Code(s): L89.90 - Pressure ulcer of unspecified site, unspecified stage Altered mental status Qualifiers: Altered mental status type: unspecified Qualified Code(s): R41.82 - Altered mental status, unspecified Sepsis Qualifiers: Sepsis type: sepsis due to unspecified organism Sepsis acute organ dysfunction status: unspecified Qualified Code(s): A41.9 - Sepsis, unspecified organism Hypothermia Qualifiers: Encounter type: initial encounter Qualified Code(s): T68.XXXA - Hypothermia, initial encounter The scribe's documentation has been prepared under my direction and personally reviewed by me in its entirety. I confirm that the note above accurately reflects all work, treatment, procedures, and medical decision making performed by me.
--- NOTE | 2019-10-16 16:24 | CT Scan Report ---
CT OF THE ABDOMEN AND PELVIS WITH CONTRAST CLINICAL HISTORY: Altered mental status. Sepsis. Abdominal bruising. COMPARISON STUDY: CT of the abdomen and pelvis April 17, 2019. TECHNIQUE: Following IV administration of 90 mL of Optiray-320, axial images of the abdomen and pelvi s were obtained from the lung bases to the proximal femurs. Images were reviewed in the axial, sagitt al, and coronal planes. IV contrast was administered without complication. Automated exposure contro l was utilized for the study. A dose lowering technique was utilized adhering to the principles of A RICHARD. CT DOSE: 2130.48 mGy.cm FINDINGS: Note that the chest will be reported separately. The liver is cirrhotic. Sensitivity for de tection of hypervascular lesions is diminished on this single phase exam but no hepatic lesions are i dentified. Cavernous transformation of the portal vein is again noted. Large collaterals within the a bdomen and pelvis are again noted. There is no evidence for a bowel obstruction. There is no evidence for traumatic injury to the liver, spleen, adrenal glands, kidneys or pancreas. Gallbladder is mildl y distended. Penile prosthesis is noted. There is trace ascites, markedly diminished since prior CT. There is no hydronephrosis. No acute lumbar spine or pelvic fracture is identified. The appendix is normal. 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 IMPRESSION: 1. No acute traumatic findings within the abdomen or pelvis. 2. Cirrhosis with manifestations of portal hypertension including cavernous transformation of the por vinnie vein with collateral formation and splenomegaly as shown on prior CT. 3. No bowel obstruction. ACT 112: Negative or not required by law. Electronically signed by: Karthikeyan Rashid M.D. 10/16/2019 4:23 PM
[2019-10-16 16:26] LABS: Basophils # (auto) 0.01 K/uL (0-0.2); Basophils % (auto) 0.1 %; Hematocrit (blood only) 32.3 % (42-52); Immature Granulocytes # (auto) 0.09 K/uL (0.00-0.02); Immature Granulocytes % (auto) 0.5 %; Lymphocytes # (auto) 1.06 K/uL (1.2-3.4); Lymphocytes % (auto) 5.8 %; Mean Corpuscular Hemoglobin 34.1 pg (25-34); Mean Corpuscular Hgb Conc 34.1 g/dL (32-36); Mean Platelet Volume 11.1 fL (7.4-10.4); Monocytes # (auto) 2.34 K/uL (0.11-0.59); Monocytes % (auto) 12.8 %; Neutrophils # (auto) 14.77 K/uL (1.4-6.5); Neutrophils % (auto) 80.8 %; Platelet Count 135 K/uL (130-400); RDW Coefficient of Variation 17.3 % (11.5-14.5); RDW Standard Deviation 63.4 fL (36.4-46.3); Red Blood Count 3.23 M/uL (4.7-6.1); White Blood Count 18.27 K/uL (4.8-10.8)
[2019-10-16] MEDS ORDERED: fentaNYL citrate 100 MCG/2 ML VIAL IV PRN (16:34)
[2019-10-16] MEDS ORDERED: ONDANSETRON INJ 2 MG/ML 2 ML VIAL IV STA (16:34)
[2019-10-16 16:36] LABS: INR 3.3 (0.9-1.1); Partial Thromboplastin Ratio 1.6; Partial Thromboplastin Time 43.9 Seconds (21.0-31.0); Prothrombin Time 30.7 Seconds (9.0-12.0)
[2019-10-16 16:40] LABS: Appearance Urine Clear (Clear); Bacteria Urine Automated Negative (Negative); Blood Urine 1+ (Negative); Color Urine Orange; Glucose Urine UA Negative (Negative); Ketones Urine Negative (Negative); Leukocyte Esterase Urine Trace (Negative); Nitrite Urine Positive (Negative); Protein Urine Negative (Negative); RBC Urine Automated 0-4 /hpf (0-4); Specific Gravity Urine 1.024 (1.000-1.030); Urobilinogen Urine Negative (Negative)
[2019-10-16 16:43] LABS: Bilirubin Urine 1+ (Negative)
[2019-10-16 16:45] LABS: Ictotest Urine Positive (Negative)
[2019-10-16 16:46] LABS: Albumin Level 2.1 gm/dl (3.4-5.0); BUN Creatinine Ratio 44.3 (10-20); Calcium 7.8 mg/dl (8.5-10.1); Creatinine Clr Calc Pharmacy 40.7 ml/min; Est GFR (African American) 42.7; Est GFR (Non-African American) 36.8; Magnesium 2.5 mg/dl (1.8-2.4); Potassium 5.1 mmol/L (3.5-5.1)
[2019-10-16 16:57] LABS: Cast Urine Automated >30 /lpf (0-5)
[2019-10-16 16:59] LABS: Amphetamines+Metham, Urine Neg (Neg); Barbiturates, Urine Neg (Neg); Benzodiazepine, Urine Neg (Neg); Cocaine, Urine Neg (Neg); MDMA (Ecstacy), Urine Neg (Neg); Methadone, Urine Neg (Neg); Opiate, Urine Neg (Neg); Phencyclidine, Urine Neg (Neg)
[2019-10-16 17:03] LABS: Albumin Globulin Ratio 0.5 (0.9-2); Bilirubin,Total 6.3 mg/dl (0.2-1); Creatine Kinase MB 37.7 ng/ml (0.5-3.6); Globulin 4.5 gm/dl (2.5-4.0); Phosphorus 3.9 mg/dl (2.5-4.9); Total Protein 6.6 gm/dl (6.4-8.2); Troponin I 6.19 ng/ml (0-0.045)
[2019-10-16] MEDS ORDERED: VANCOMYCIN HCL 1,750 MG in SODIUM CHLORIDE 0.9% 500 ML IV STA (17:13)
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
[2019-10-16] MEDS ORDERED: ICU PROTOCOL FOR HYPERGLYCEMIA PRN (19:28)
[2019-10-16] MEDS ORDERED: ALBUT/IPRATROP 3MG/0.5MG NEB 3 ML VIAL INH PRN (19:28)
[2019-10-16] MEDS ORDERED: PIPERACILLIN/TAZOBACTAM 4.5 GM in DEXTROSE 5% 100 ML IV STA (19:37)
[2019-10-16] MEDS: SODIUM CHLORIDE 0.9% 1000ML 1,000 ML IV SCH (19:48)
[2019-10-16] MEDS: PIPERACILLIN/TAZOBACTAM 3.375 GM in DEXTROSE 5% 100 ML IV SCH ×2 (19:58→22:47)
[2019-10-16 20:57] LABS: Troponin I 5.81 ng/ml (0-0.045)
[2019-10-16] MEDS: DOXYCYCLINE HYCLATE 100 MG in DEXTROSE 5% 100 ML IV SCH (21:01)
--- NOTE | 2019-10-16 21:23 | XRay Report ---
XR ankle LT 2V CLINICAL HISTORY: open wound to LEFT lateral malleolus COMPARISON: Left ankle radiographs November 27, 2012. FINDINGS: Distal left tibial and fibular internal fixation is noted. The hardware is intact. There i s no acute fracture. No findings are noted to suggest osteomyelitis. There is extensive vascular calc ification. No soft tissue gas is identified. IMPRESSION: 1. No acute fracture. No evidence for osteomyelitis within the left ankle. 2. Stable postoperative appearance following distal left tibial and fibular internal fixation. ACT 112: Negative or not required by law. Electronically signed by: Karthikeyan Rashid M.D. 10/16/2019 9:22 PM
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
[2019-10-16] MEDS: MUPIROCIN 2% OINT 22 GM TUBE EXT SCH (21:32)
[2019-10-16] MEDS: KETOCONAZOLE 2% CR 15 GM TUBE EXT SCH (21:32)
[2019-10-16] MEDS: FAMOTIDINE 20 MG in SYRINGE 3 ML IV SCH (21:35)
[2019-10-16] MEDS ORDERED: VANCOMYCIN CONSULT ACTIVE PRN (21:47)
[2019-10-16 23:18] LABS: Influenza A virus by PCR Neg for Influ A (Neg); Influenza B virus by PCR Neg for Influ B (Neg)
[2019-10-17] MEDS: SODIUM CHLORIDE 0.9% 1000ML 1,000 ML IV SCH ×3 (04:04→20:04)
[2019-10-17 04:10] LABS: Hematocrit (blood only) 31.7 % (42-52); Hemoglobin 10.8 g/dL (14.0-18.0); Mean Corpuscular Hemoglobin 34.1 pg (25-34); Mean Corpuscular Hgb Conc 34.1 g/dL (32-36); RDW Coefficient of Variation 17.8 % (11.5-14.5); RDW Standard Deviation 64.7 fL (36.4-46.3); Red Blood Count 3.17 M/uL (4.7-6.1); White Blood Count 11.31 K/uL (4.8-10.8)
[2019-10-17 04:32] LABS: Basophils # (auto) 0.01 K/uL (0-0.2); Basophils % (auto) 0.1 %; Echinocytes 2+; Eosinophils # (auto) 0.01 K/uL (0-0.5); Eosinophils % (auto) 0.1 %; INR 2.9 (0.9-1.1); Immature Granulocytes # (auto) 0.04 K/uL (0.00-0.02); Immature Granulocytes % (auto) 0.4 %; Lymphocytes % (auto) 11.5 %; Mean Platelet Volume 10.6 fL (7.4-10.4); Monocytes # (auto) 0.92 K/uL (0.11-0.59); Monocytes % (auto) 8.1 %; Neutrophils # (auto) 9.03 K/uL (1.4-6.5); Neutrophils % (auto) 79.8 %; Partial Thromboplastin Ratio 1.7; Platelet Count 99 K/uL (130-400); Platelet Estimate Decreased (Normal); Prothrombin Time 27.7 Seconds (9.0-12.0)
[2019-10-17 04:38] LABS: BUN Creatinine Ratio 42.8 (10-20); Calcium 8.1 mg/dl (8.5-10.1); Est GFR (African American) 46.6; Est GFR (Non-African American) 40.2; Magnesium 2.3 mg/dl (1.8-2.4); Potassium 4.5 mmol/L (3.5-5.1)
[2019-10-17 04:43] LABS: Partial Thromboplastin Time 45.6 Seconds (21.0-31.0)
[2019-10-17 04:54] LABS: Bilirubin Direct 3.1 mg/dl (0-0.2); Bilirubin,Total 5.3 mg/dl (0.2-1); Phosphorus 3.9 mg/dl (2.5-4.9); Total Protein 6.3 gm/dl (6.4-8.2)
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
--- NOTE | 2019-10-17 07:20 | XRay Report ---
XR chest 1V portable HISTORY: 69 years-old Male PNA acute shortness of breath with possible pneumonia COMPARISON: Chest radiograph and CT chest 10/16/2019 TECHNIQUE: Portable AP view of the chest FINDINGS: Cardiac silhouette is moderately enlarged. Calcified plaque of the thoracic aortic arch. Pulmonary va scular congestion with mildly decreased interstitial coarsening suggestive of improving pulmonary eulalia ma. Unchanged mild right hemidiaphragmatic elevation. Mild blunting of the costophrenic angles. No la rge pleural effusion. Ill-defined patchy opacities of the left upper lower lobes are better seen on c omparison chest CT. Degenerative changes of the shoulders and spine. IMPRESSION: 1. Cardiomegaly with mildly improved pulmonary edema. 2. Patchy ill-defined opacities of the left upper lobe and lingula, better seen on comparison chest C T are suggestive of an infectious or inflammatory pneumonitis. ACT 112: Negative or not required by law. The above report was generated using voice recognition software. It may contain grammatical, syntax o r spelling errors. Electronically signed by: Rufino Dyer M.D. 10/17/2019 7:19 AM
[2019-10-17] MEDS ORDERED: VANCOMYCIN HCL 1,000 MG in SODIUM CHLORIDE 0.9% 250 ML IV SCH (08:00)
[2019-10-17] MEDS: FAMOTIDINE 20 MG in SYRINGE 3 ML IV SCH ×2 (08:29→20:03)
[2019-10-17] MEDS: DOXYCYCLINE HYCLATE 100 MG in DEXTROSE 5% 100 ML IV SCH ×2 (08:29→20:03)
[2019-10-17] MEDS: KETOCONAZOLE 2% CR 15 GM TUBE EXT SCH ×2 (08:30→20:03)
[2019-10-17] MEDS: FERROUS SULFATE 325 MG TAB PO SCH (08:30)
[2019-10-17] MEDS: MUPIROCIN 2% OINT 22 GM TUBE EXT SCH ×2 (08:30→20:03)
[2019-10-17] MEDS: PIPERACILLIN/TAZOBACTAM 3.375 GM in DEXTROSE 5% 100 ML IV SCH (08:37)
--- NOTE | 2019-10-17 08:49 | Pharmacy Report ---
Pharmacy Abx Initial Consult - Date of Service October 17, 2019 - Pharmacy Dosing Scope Date of Consult: 10/16/19 Consultation requested by: Negrita Le PA-C Pharmacy is consulted to initiate Vancomycin + Zosyn IV dosing therapy, order appropriate labs and adjust drug dose/frequency. - Subjective The patient is a 69 year old M admitted on 10/16/19 18:37. - Objective Height: 5 ft 8 in Weight: 75.6 kg Vital Signs (Past 12hrs): Vital Signs Temp Pulse Pulse Resp BP BP Pulse Ox 10/17/19 04:53 72 16 119/52 L 97 10/17/19 04:32 71 14 119/52 L 95 10/17/19 03:59 36.4 C L 73 14 95/48 L 92 10/17/19 03:23 71 14 90/35 L 98 10/17/19 02:53 73 15 108/53 L 93 10/17/19 02:23 75 16 84/63 L 84 L 10/17/19 01:53 37.1 C 72 15 107/48 L 91 10/17/19 01:23 76 17 103/52 L 88 L 10/17/19 00:53 71 13 105/43 L 92 10/17/19 00:23 91 H 19 107/48 L 90 10/16/19 23:53 37.1 C 71 20 112/54 L 98 10/16/19 23:44 72 18 95 10/16/19 23:23 71 16 103/46 L 97 10/16/19 22:54 69 18 104/41 L 96 10/16/19 22:32 73 18 80/36 L 95 10/16/19 21:57 70 18 92/32 L 96 10/16/19 21:53 69 19 87/33 L 95 Lab Results (24hrs): Laboratory Tests (24 Hours) 10/17/19 10/17/19 10/17/19 03:55 03:55 03:55 WBC 11.31 H Neut # (Auto) 9.03 H ESR Creatinine 1.71 H Est Cr Clr Drug Dosing 40.0 Total Creatine Kinase 3563 H Procalcitonin 13.41 H 10/16/19 10/16/19 10/16/19 16:04 16:04 16:04 WBC Neut # (Auto) ESR 31 H Creatinine 1.84 H Est Cr Clr Drug Dosing 40.7 Total Creatine Kinase 5199 H Procalcitonin 14.31 H 10/16/19 16:04 WBC 18.27 H Neut # (Auto) 14.77 H ESR Creatinine Est Cr Clr Drug Dosing Total Creatine Kinase Procalcitonin Micro Results: 10/16/19 16:15 Urine Culture - Pending Urine,Straight Cath 10/16/19 16:04 Aerobic Blood Culture - Pending Blood Anaerobic Blood Culture - Pending 10/16/19 15:27 Aerobic Blood Culture - Pending Blood Anaerobic Blood Culture - Pending - Assessment & Plan Assessment 69 year old M initiated on IV Vancomycin + Zosyn + Doxycycline for Pneumonia (Presumed aspiration secondary to fall with unknown down time). Scr elevated from baseline of ~1 mg/dl. Combination of vancomycin + Zosyn can be more nephrotoxic than either agent individually. Will monitor closely. Nasal MRSA negative - consider de-escalation of antibiotics MARIELLA. Plan Vancomycin IV * Patient meets criteria for vancomycin AUC dosing nomogram * AUC/YOCASTA is the preferred PK/PD target for vancomycin * Target AUC/YOCATSA = 400-600 * AUC guided dosing is effective and associated with decreased risk of nephrotoxicity * Trough levels poorly correlate with AUC/YOCASTA and trough monitoring has been associated with increased risk of nephrotoxicity Piperacillin/tazobactam * 4.5 g bolus administered over 30 minutes, then 4.5 g IV extended infusion every 8 hours for CrCl greater than 20 mL/min * Aggressive dosing selected due to critically ill Pharmacy will continue to follow and will adjust dose/frequency as necessary. Thank you.
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
--- NOTE | 2019-10-17 09:59 | Critical Care Progress Note ---
Date of Service October 17, 2019 Assessment & Plan (1) Admitted to intensive care unit: Reason Critically Ill: 69-year-old male with altered mental status in the setting of metabolic encephalopathy with current diagnosis of an STEMI, rhabdomyolysis, pneumonia, UTI, and open wounds requiring close hemodynamic monitoring. NEURO - CAM ICU: POSITIVE Altered Mental Status: Multifactorial metabolic encephalopathy. i.e. Rhabo, Sepsis, Hypothermia. Urine clean, bibasilar lower lobe atelectasis. CT Head without acute findings. No focal neurological deficits on exam. Continue to monitor for improvement w/ ongoing treatment of underlying conditions. CARDIAC/VASCULAR - NSTEMI: Presumed demand related in the patient with known CAD and HFpEF w/ sepsis Will trend Troponins. Trending down EKG is concerning for T-wave inversions anteriolaterally. w/o complaints of chest pain or significant ST elevations otherwise. Follow-up 2D echo Outpatient Echo/RIGHT heart cath (07/2019): EF 60-65%, Pulm HTN - PASP 55mmHg. RIGHT atrial pressures of 80mmHg, PCWP 32mmHg. Pressors if needed. QTc Prolongation: Currently 572ms. Avoid QTc prolonging agents (i.e. Loperamide, Levaquin) HFpEF: Patient is clinically volume down. Outpatient note on 09/28 notes an office weight of 178lbs. Today he is 164lbs. Will hold lasix for now. Continue w/ IVF to maintain good urine output RESPIRATORY - Possible right-sided pneumonia Presumed aspiration in the event of fall w/ unknown down time. Received IV Vanc, Zosyn, Levaquin in the ED. Levaquin changed to Doxy for QTc prolongation. Influenza negative Sputum cultures ordered if able. Aggressive pulmonary toilet. Nebs. Supplemental O2 PRN. Daughter (POA) fine w/ intubation if necessary. GI/NUTRITION - Alcoholic Cirrhosis: Last drink ~12 years ago per daughter. Currently w/ slight scleral icterus. Ammonia wnl. Elevated T-bili. AST >3x ALT... Patient [place] a [place] candidate [place] [facility] multiple underlying conditions. Uncertain if this is contributing significantly at this time. Will continue to trend LFTs, Ammonia. Protal Vein Thrombosis: Currently anticoagulated on Warfarin. PUD: Will add Famotidine BID while patient NPO Prophylaxis: Famotidine NPO at this time. RENAL/LYTES - Rhabdomyolysis/RAMSES: CPK >5000. Trending down Will continue to treat w/ IVF. Replace Lytes as needed. - Urine has no bacteria but leukocyte esterase. Urine will likely be the source of infection Chao in place - Strict I&Os. ENDO - No h/o DM or Thyroid Dz BSGs per unit protocol. ISS --> gtt per unit policy. HEME - Stable H&H. Will trend w/ aggressive hydration and risk for hemodilution. Supratherapeutic INR: h/o Portal Vein Thrombus. Goal range 2.0-2.5. Hold warfarin for the time being. Assess for any signs of bleeding. ID - Sepsis: Inclusion criterial includes hypothermia, leukocytosis, transient tachycardia w/ known source(s): Pneumonia (presumed aspiration)/Open wound to LEFT Ankle w/ hardware exposure. Received Vanc, Zosyn, Levaquin in the ED. Will continue w/ Vanc/Zosyn for now. Changed Levaquin to Doxy 2/2 patient's QTc of 572ms. Elevated Lactate --> trending down Initial procalcitonin greater than 14 Follow-up septic work-up MUSCULOSKELETAL - Open would to LEFT ankle with exposure of underlying hardware from prior ORIF. ~1.5 cm wound noted overlying the lateral malleolus of the LEFT ankle with what appears to be breakdown/pressure injury w/ central sloughing of tissue. Able to appreciate underlying hardware. Initial spiral fibula fracture to the LEFT lower extremity on 01/31/2008 initially treated w/ ORIF by [facility]. Consulted [facility], Dr. Fortino Brownlee. Will defer to further treatment per Ortho recommendations. LINES/IV ACCESS - PIVs x1 LEFT EJ Chao DVT PROPHYLAXIS - Hold on chemoprophylaxis 2/2 Supratherapeutic INR. SCDs Plan: Continue with IV fluids 125 mils an hour keeping urine output in mind given his rhabdomyolysis. Patient may 2.3 L of urine so far. To me the most likely source of infection is left lower extremity open wound. Creatinine gradually improving. Troponin trending down. Aspiration precautions. We will get a swallow eval. Hold warfarin given the INR is still 2.9. Continue with broad-spectrum antibiotics for the time being. Patient hemodynamically stable to be downgraded to medical floor. Follow cardiology and orthopedic recommendations (2) Non-ST elevation CT (NSTEMI): (3) Acute kidney injury: (4) Pulmonary hypertension: (5) COPD (chronic obstructive pulmonary disease): (6) Alcoholic cirrhosis: (7) Elevated INR: (8) Portal vein thrombosis: (9) QT prolongation: (10) Metabolic encephalopathy: (11) Fall: Subjective Patient seen and examined at bedside. No acute distress, no adverse events overnight. Patient is awake and alert oriented to self and place. Patient answer simple questions. Denies any chest pain, no shortness of breath. No nausea or vomiting. No headache, no dizziness, no palpitations. No bowel movements. Does complain of pain in the lower back. Review of Systems Review of Systems: All systems reviewed & are unremarkable except as noted in HPI & below Physical Exam Physical Exam: Constitutional: No acute distress HEENT: EOMI, PERRLA, dry mucous membranes, dried blood appreciated in the mouth. Respiratory system: Decreased air entry bilaterally, positive bilateral lower lobe crackles, no wheeze, no rhonchi CVS: S1-S2 positive, no murmurs or gallops Abdomen: Soft, nontender, nondistended, positive bowel sounds x4 Extremities: +2 pulses bilaterally radialis/ dorsalis pedis, no cyanosis, no edema, left ankle bandaged, bruising appreciated especially on the dorsal surface of the body. Neuro: Awake alert oriented to self and place, patient able to move all his extremities on command. Psych: Normal mood and affect G/U: Positive Chao Skin: + turgor decreased and + ecchymosis Trauma: + evidence of skin trauma and + abrasion Lymphatic: no cervical or axillary lymphadenopathy Results & Data Vital Signs (Past 12 Hours) Vital Signs Temp Pulse Pulse Resp BP BP Pulse Ox 10/17/19 04:53 72 16 119/52 L 97 10/17/19 04:32 71 14 119/52 L 95 10/17/19 03:59 36.4 C L 73 14 95/48 L 92 10/17/19 03:23 71 14 90/35 L 98 10/17/19 02:53 73 15 108/53 L 93 10/17/19 02:23 75 16 84/63 L 84 L 10/17/19 01:53 37.1 C 72 15 107/48 L 91 10/17/19 01:23 76 17 103/52 L 88 L 10/17/19 00:53 71 13 105/43 L 92 10/17/19 00:23 91 H 19 107/48 L 90 10/16/19 23:53 37.1 C 71 20 112/54 L 98 10/16/19 23:44 72 18 95 10/16/19 23:23 71 16 103/46 L 97 10/16/19 22:54 69 18 104/41 L 96 10/16/19 22:32 73 18 80/36 L 95 10/16/19 21:57 70 18 92/32 L 96 10/17/19 03:55 10/17/19 03:55 Coding Level of Care Code Critical Care 1st 30-74 mins Diagnoses Admitted to intensive care unit Z78.9 Non-ST elevation CT (NSTEMI) I21.4 Acute kidney injury N17.9 Pulmonary hypertension I27.20 COPD (chronic obstructive pulmonary disease) J44.9 Alcoholic cirrhosis K70.30 Ascites presence: unspecified Elevated INR R79.1 Portal vein thrombosis I81 QT prolongation R94.31 Metabolic encephalopathy G93.41 Fall W19.XXXA Time Spent (min) 45 (1) Alcoholic cirrhosis Ascites presence: unspecified Qualified Code(s): K70.30 - Alcoholic cirrhosis of liver without ascites
[2019-10-17] MEDS: VANCOMYCIN HCL 1,500 MG in SODIUM CHLORIDE 0.9% 500 ML IV SCH (16:02)
[2019-10-17] MEDS ORDERED: MoRPHine SULFATE 2 MG/ML CARP IV STA (16:02)
[2019-10-17] MEDS: PIPERACILLIN/TAZOBACTAM 4.5 GM in DEXTROSE 5% 100 ML IV SCH (16:30)
--- NOTE | 2019-10-17 17:21 | Hospitalist Progress Note ---
Date of Service October 17, 2019 Assessment & Plan (1) Rhabdomyolysis: - Fall - uncertain of all details or length of time down - last seen by daughter on . Found in the bathroom with the sink pulled off the wall and laying in water and was found initially hypothermic. Daughter states the hot water pipe was leaking water too and it was still warm so didn't think he may have been down too long -- Today patient thinks this might have happened on 10/14 but not completely sure - CK 5000 on admission and trending down - will supply IV hydration and trend (2) Bacteremia: - 1 of 2 BCx with gram negative bacilli - question source as ankle given laying in bathroom; so far urine cx negative; gram negative pneumonia? - will await identification - Repeat BCx in AM to test for sterility (3) Pneumonia: - Current cough with clear sputum currently; saturating appropriately on RA - CT with suggestion of pneumonia - given leukocytosis, procal, desaturations this is possible - Doxycycline 100 mg BID, Zosyn, and Vanc - broad coverage given possibly superimposed skin issues - Nebs (4) Sepsis: - Know with + BCx - gram neg bacill; UCx prelim but no growth/<1000 colonies- Likely pneumonia vs skin as possible source; leukocytosis, hypoxia (desaturations in the ER from 84-88% during my assessment but not documented on routine vitals), elevated lactic acid, elevated procal, hypotension - this is likely a mixed picture given dehydration/rhabdo - Treatment as above (5) Elevated troponin: - Troponin appears to likely peak at 6.1 and trending down - Given multiple factors likely some demand ischemia but possibility of resolving cardiac issue - Echo - EF 60-65%; no regional wall motion abnormalities; mild LVH (6) Acute kidney injury: - Likely pre-renal in the setting of dehydration/rhabdo; Baseline appears < 1 - Will provide IV hydration and continue to trend; avoid nephrotoxins (7) Altered mental status: - Likely in the setting of infection/dehydration - likely metabolic encephalopathy- RESOLVED but fatigued - Treatment as above (8) COPD (chronic obstructive pulmonary disease): - Associated pulmonary HTN - Does not appear to be in an exacerbation at this time and will monitor - Nebulizers (9) Alcoholic cirrhosis: - Not currently drinking; follows with [facility] - Will continue to monitor for any acute hepatic issues (10) Portal vein thrombosis: - On Coumadin therapy - follows with [facility] - INR 2.9 currently - hold today and will repeat INR in AM - Does have bruising on L side - Hgb 10.8 and stable and will monitor (11) Exposed orthopaedic hardware: - Open wound to L lateral ankle with exposed hardware - Orthopedics consulted - initial surgery performed by Dr. Hathaway -- Discussed with Dr. Brownlee with [facility] - given his comorbidities would not be a good surgical candidate at this time - recommend wound care assessment to see if stabilization can occur with their treatment - ultimately definitive treatment would be I&D with hardware removal Disposition: PT/OT when acute issues improve; currently lives alone; appreciate case management discussions Subjective Reports hurting everywhere but more bothersome is the L ankle. He is also very thirsty. Mentation is improving. Patient states he thinks he fell 10/14 as he remembers coming home from a friends house on and believes it was the next day he fell but not completely sure. He continues to have a cough. Has some L sided rib pain and significant ecchymosis of the L side. Updated family at bedside. Also discussed with orthopedics. Review of Systems Constitutional: + weakness; no fever and no chills Ear, Nose, Mouth, Throat: + dry mouth; no dysphagia Respiratory: + cough; no dyspnea Cardiovascular: no chest pain, no palpitations, no lightheadedness and no ed timoteo Gastrointestinal: no abdominal pain, no nausea, no vomiting, no constipation and no diarrhea/loose stools Genitourinary: no dysuria Musculoskeletal: diffuse generalized pain "all over" but increased pain in L lateral ankle; some Integumentary: + wounds Neurologic: + generalized weakness Physical Exam Constitutional: + acute distress (restless) and + frail appearing Eyes: sclerae not anicteric (mildly icteric) Neck: trachea midline Respiratory: normal respiratory effort and + cough Auscultation: + diminished lung sounds Cardiovascular: Rate/Rhythm: regular rate and regular rhythm Heart Sounds: no murmur Gastrointestinal (Abdomen): Inspection/Auscultation: + abdomen distended ( mild) and normal bowel sounds Percussion/Palpation: + abdomen rigid and abdomen soft; abdomen nontender and no guarding Musculoskeletal: Head/Neck/Chest: normocephalic and head atraumatic L ankle with wrap currently in place - did not assess open wound on this day Neurologic: moves all extremities Psychiatric: Orientation: alert Results & Data Vital Signs (Past 12 Hours) Vital Signs Temp Pulse Pulse Resp BP BP Pulse Ox 10/17/19 15:40 36.8 C 80 21 110/56 L 92 10/17/19 12:01 36.3 C L 67 18 121/62 92 10/17/19 11:00 36.4 C L 69 73 18 126/65 10/17/19 10:03 75 20 105/58 L 91 10/17/19 10:00 78 18 91 10/17/19 09:24 72 125/61 10/17/19 08:54 70 15 110/55 L 90 10/17/19 08:23 36.8 C 72 16 131/49 L 99 10/17/19 08:00 71 17 99 10/17/19 07:53 72 12 102/48 L 99 10/17/19 07:23 72 15 116/43 L 99 10/17/19 07:00 72 12 98 PG Care Time/CCT Total # of Minutes Spent Total Time Spent with Patient: Total time spent is greater than 50% in coordination of care (as documented) at patient's floor/unit and/or counseling patient: (1) Alcoholic cirrhosis Ascites presence: unspecified Qualified Code(s): K70.30 - Alcoholic cirrhosis of liver without ascites (2) Rhabdomyolysis Rhabdomyolysis type: non-traumatic Qualified Code(s): M62.82 - Rhabdomyolysis (3) Sepsis Sepsis acute organ dysfunction status: unspecified Sepsis type: sepsis due to unspecified organism Qualified Code(s): A41.9 - Sepsis, unspecified organism (4) Altered mental status Altered mental status type: unspecified Qualified Code(s): R41.82 - Altered mental status, unspecified
[2019-10-17] MEDS: MoRPHine SULFATE 2 MG/ML CARP IV PRN (20:09)
[2019-10-18] MEDS: PIPERACILLIN/TAZOBACTAM 4.5 GM in DEXTROSE 5% 100 ML IV SCH ×3 (01:39→16:31)
[2019-10-18] MEDS: SODIUM CHLORIDE 0.9% 1000ML 1,000 ML IV SCH ×2 (05:44→14:46)
[2019-10-18 07:39] LABS: Hematocrit (blood only) 30.1 % (42-52); Hemoglobin 10.1 g/dL (14.0-18.0); Mean Corpuscular Hemoglobin 33.8 pg (25-34); Mean Corpuscular Hgb Conc 33.6 g/dL (32-36); Mean Corpuscular Volume 100.7 fL (80-100); RDW Standard Deviation 65.6 fL (36.4-46.3); Red Blood Count 2.99 M/uL (4.7-6.1); White Blood Count 8.49 K/uL (4.8-10.8)
[2019-10-18] MEDS: FAMOTIDINE 20 MG in SYRINGE 3 ML IV SCH ×2 (07:58→19:57)
[2019-10-18 07:59] LABS: Mean Platelet Volume 10.3 fL (7.4-10.4); Platelet Count 94 K/uL (130-400)
[2019-10-18] MEDS: FERROUS SULFATE 325 MG TAB PO SCH (07:59)
[2019-10-18] MEDS: DOXYCYCLINE HYCLATE 100 MG in DEXTROSE 5% 100 ML IV SCH ×2 (08:01→19:58)
[2019-10-18 08:02] LABS: Basophils # (auto) 0.01 K/uL (0-0.2); Basophils % (auto) 0.1 %; Echinocytes 1+; Eosinophils # (auto) 0.14 K/uL (0-0.5); Eosinophils % (auto) 1.6 %; Immature Granulocytes # (auto) 0.02 K/uL (0.00-0.02); Immature Granulocytes % (auto) 0.2 %; Lymphocytes % (auto) 11.8 %; Monocytes # (auto) 1.67 K/uL (0.11-0.59); Monocytes % (auto) 19.7 %; Neutrophils # (auto) 5.65 K/uL (1.4-6.5); Neutrophils % (auto) 66.6 %
[2019-10-18 08:03] LABS: INR 2.4 (0.9-1.1); Partial Thromboplastin Ratio 1.7; Prothrombin Time 23.4 Seconds (9.0-12.0)
[2019-10-18 08:15] LABS: BUN Creatinine Ratio 31.6 (10-20); Calcium 7.9 mg/dl (8.5-10.1); Est GFR (African American) 62.6; Est GFR (Non-African American) 54.1; Magnesium 2.1 mg/dl (1.8-2.4)
[2019-10-18 08:17] LABS: Bilirubin Direct 2.6 mg/dl (0-0.2); Bilirubin,Total 4.3 mg/dl (0.2-1); Phosphorus 2.7 mg/dl (2.5-4.9); Total Protein 6.3 gm/dl (6.4-8.2)
--- NOTE | 2019-10-18 09:00 | XRay Report ---
XR chest 1V portable CLINICAL HISTORY: PNA pneumonitis COMPARISON STUDY: 10/17/2018 FINDINGS: Mild stable cardiomegaly. Minimally progressive bibasilar parenchymal infiltrative and uppe r lobe infiltrative change. No focal regions of consolidation. Diaphragms remain smooth. IMPRESSION: Slightly progressive bilateral parenchymal infiltrative change. ACT 112: Negative or not required by law. The above report was generated using voice recognition software. It may contain grammatical, syntax or spelling errors. Electronically signed by: Epifanio Denise M.D. 10/18/2019 8:59 AM
[2019-10-18] MEDS: KETOCONAZOLE 2% CR 15 GM TUBE EXT SCH ×2 (10:30→19:55)
[2019-10-18] MEDS ORDERED: PHYTONADIONE 10 MG in SODIUM CHLORIDE 0.9% 50 ML IV SCH (11:30)
--- NOTE | 2019-10-18 12:35 | Cardiology Progress Note ---
Date of Service October 18, 2019 Subjective The patient was resting comfortably with no new complaints. No CP, SOB or palpitations. Review of Systems Review of Systems: All systems reviewed & are unremarkable except as noted in HPI & below Physical Exam Constitutional: + ill appearing Neck: trachea midline, no thyromegaly Respiratory: Auscultation: + diminished lung sounds Cardiovascular: Rate/Rhythm: regular rate and regular rhythm Heart Sounds: normal S1 and normal S2 Vessels: + bounding carotid pulses Extremities: + pedal edema Gastrointestinal (Abdomen): normal bowel sounds, soft, nontender, no hepatosplenomegaly Neurologic: Grossly non-focal Results & Data Vital Signs (Past 12 Hours) Vital Signs Temp Pulse Resp BP BP Pulse Ox 10/18/19 11:52 36.6 C 80 24 147/70 H 91 10/18/19 07:11 37.1 C 71 22 129/64 95 10/18/19 04:00 36.7 C 70 16 119/55 L 97 10/18/19 00:26 37.0 C 73 20 118/66 91 Impression/Plan : 1. Elevated cardiac enzymes- continue to trend, most consistent with type 2 NSTEMI not thrombotic ACS. Multifactorial including renal failure/infection and rhabdomyolysis. Patient had echocardiogram which showed preserved LVEF at 60-65% with no RWMA.Continue to treat primary process ABX, IVF per medicine. No further inpatient cardiac work-up is recommended at this point given his pneumonia and metabolic state. He can be seen as an outpatient for further cardiac care. 2. Abnormal EKG- continue to monitor on telemetry and daily EKG . 3. Fall- ?etiology. Continue telemetry monitoring as above. Monitor QTc interval with daily EKG. If no further episodes of falls/ syncope, arrhythmias, or signs/symptoms suggestive of ischemia, As noted above, patient can follow-up with cardiology as outpatient and no further inpatient cardiac work-up recommended at this point. Cardiology will sign-off. 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 Call with any questions/concerns
--- NOTE | 2019-10-18 12:44 | Progress Notes ---
DATE: 10/18/2019 The patient is known to me from prior left ankle surgery. He was found down the day after Kamini. It is uncertain how long he had been down. He was brought to the hospital with rhabdomyolysis. He has been admitted. Main issue orthopedically is a wound over the left ankle, which is thought to be due to pressure from his fall. The patient denies any knowledge of having the ankle wound there previously. Current medical problems, medications are noted. HIS ALLERGIES ARE TRAZODONE, SPIRONOLACTONE, TERAZOSIN. Currently, medical problems include bacteremia, ankle wound, UTI, metabolic encephalopathy, acute kidney injury, rhabdomyolysis, altered mental status, alcoholic cirrhosis. Medications are noted and reviewed. He is on Coumadin. I have spoken to Dr. Steiner regarding the patient. Reversal with IV vitamin K is to be done. On examination, there is mild swelling of the left ankle. He can wiggle his toes, feel sensation throughout the foot and flex and extend the ankle and toes. Dorsalis pedis is 1+. There is a 2 cm black eschar type wound over the tip of the fibula. There is exposed orthopedic hardware visible beneath this. There is black eschar all around it with some serous drainage. Two view x-ray shows a long orthopedic plate and multiple screws in place. There is no acute fracture evident. There is hardware on the medial side of the ankle. IMPRESSION: Left ankle wound with exposed hardware, sepsis, portal vein thrombosis, multiple medical problems, alcoholic cirrhosis. PLAN: From Orthopedic perspective, we would need to remove the hardware as it is at least colonized if not infected. Given the size of the wound and the prominence of the plate, local measures are not likely to be successful. I do not think that this is something that Wound Care would be able to address with the plate in place. I would recommend that we remove the lateral side of hardware. Close the wound as best as possible. Do wound care treatments to get this to heal up. The patient is in agreement to proceed. We will speak with his daughter. N.p.o. after midnight. He will get IV vitamin K and we will recheck his INR later today and redose if necessary. Plan is for surgery tomorrow. Preop dose of IV antibiotics. Preop consult with Anesthesia. His labs are noted. White count normal, hematocrit 30, platelets are 94. His INR is 2.4. His PRP is noted.
[2019-10-18] MEDS: MoRPHine SULFATE 2 MG/ML CARP IV PRN (14:48)
--- NOTE | 2019-10-18 14:50 | XRay Report ---
XR tibia fibula LT 2V HISTORY: 69 years-old Male presurgical planning chronic left leg pain COMPARISON: Left ankle radiographs 10/16/2019 TECHNIQUE: 2 views of the left tibia and fibula FINDINGS: Demineralized appearance of the bones. Mild osteoarthritis of the knee and ankle. No acute fracture, dislocation or osteochondral defect. K wire and cannulated screw noted about the medial malleolus. La teral plate and screw fusion of the mid and distal fibula. No evidence of hardware fracture or loosen ing. No acute periprosthetic fracture. Arterial calcifications are noted. Mild soft tissue swelling o f the lower leg and ankle. IMPRESSION: 1. No acute fracture or dislocation. 2. Postoperative changes of the ankle as above. No evidence of hardware complication. ACT 112: Negative or not required by law. The above report was generated using voice recognition software. It may contain grammatical, syntax o r spelling errors. Electronically signed by: Rufino Dyer M.D. 10/18/2019 2:49 PM
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
[2019-10-18] MEDS: VANCOMYCIN HCL 1,500 MG in SODIUM CHLORIDE 0.9% 500 ML IV SCH (16:32)
[2019-10-18] MEDS: LIDOCAINE HCL 2% VISCOUS 60 ML, DiphenhydrAMINE Syrup 150 MG, ALUMINUM/MAGNESIUM SUSP 6... PO PRN (17:03)
[2019-10-18] MEDS: MUPIROCIN 2% OINT 22 GM TUBE EXT SCH ×2 (19:05→19:54)
[2019-10-18 20:06] LABS: INR 2.2 (0.9-1.1); Prothrombin Time 20.9 Seconds (9.0-12.0)
[2019-10-18] MEDS ORDERED: PHYTONADIONE 10 MG in SODIUM CHLORIDE 0.9% 50 ML IV ONE (20:44)
--- NOTE | 2019-10-18 22:57 | Hospitalist Progress Note ---
Date of Service October 18, 2019 Assessment & Plan (1) Rhabdomyolysis: - Fall - uncertain of all details or length of time down - last seen by daughter on . Found in the bathroom with the sink pulled off the wall and laying in water and was found initially hypothermic. Daughter states the hot water pipe was leaking water too and it was still warm so didn't think he may have been down too long -- Today patient thinks this might have happened on 10/14 but not completely sure - CK 5000 on admission and trending down - CK is now below 700. (2) Bacteremia: - 1 of 2 BCx with gram negative bacilli -1 of 2 gram postivie: awaiting finalized culture - question source as ankle given laying in bathroom; so far urine cx negative; gram negative pneumonia? - will await identification - Repeat BCx in AM to test for sterility: which is negative (3) Pneumonia: - Current cough with clear sputum currently; saturating appropriately on RA - CT with suggestion of pneumonia - given leukocytosis, procal, desaturations this is possible - Doxycycline 100 mg BID, Zosyn, and Vanc - broad coverage given possibly superimposed skin issues - Nebs (4) Sepsis: - Know with + BCx - gram neg bacill; UCx prelim but no growth/<1000 colonies- Likely pneumonia vs skin as possible source; leukocytosis, hypoxia (desaturations in the ER from 84-88% during my assessment but not documented on routine vitals), elevated lactic acid, elevated procal, hypotension - this is likely a mixed picture given dehydration/rhabdo - Treatment as above (5) Elevated troponin: - Troponin appears to likely peak at 6.1 and trending down - Given multiple factors likely some demand ischemia but possibility of resolving cardiac issue - Echo - EF 60-65%; no regional wall motion abnormalities; mild LVH (6) Acute kidney injury: - Likely pre-renal in the setting of dehydration/rhabdo; Baseline appears < 1 - Will provide IV hydration and continue to trend; avoid nephrotoxins (7) Altered mental status: - Likely in the setting of infection/dehydration - likely metabolic encephalopathy- RESOLVED but fatigued - Treatment as above (8) COPD (chronic obstructive pulmonary disease): - Associated pulmonary HTN - Does not appear to be in an exacerbation at this time and will monitor - Nebulizers (9) Alcoholic cirrhosis: - Not currently drinking; follows with [facility] - Will continue to monitor for any acute hepatic issues (10) Portal vein thrombosis: - On Coumadin therapy - follows with [facility] -due to surgery will hold coumadin and reverse INR. (11) Exposed orthopaedic hardware: - Open wound to L lateral ankle with exposed hardware - Orthopedics consulted - initial surgery performed by Dr. Hathaway -- Discussed with Dr. Brownlee with [facility] - given his comorbidities would not be a good surgical candidate at this time - recommend wound care assessment to see if stabilization can occur with their treatment - ultimately definitive treatment would be I&D with hardware removal Disposition: PT/OT when acute issues improve; currently lives alone; appreciate case management discussions Subjective 69 yo male reports feeling better. He continues to have generalized pain. He does report feeling better today than when he first came in. He is worried about the surgery tomorrow. Review of Systems Review of Systems: All systems reviewed & are unremarkable except as noted in HPI & below Physical Exam Physical Exam: Constitutional: Appears to be resting comfortably. Eyes: sclerae not anicteric (mildly icteric) Neck: trachea midline Respiratory: normal respiratory effort and + cough Auscultation: + diminished lung sounds Cardiovascular: Rate/Rhythm: regular rate and regular rhythm Heart Sounds: no murmur Gastrointestinal (Abdomen): Inspection/Auscultation: + abdomen distended (mild) and normal bowel sounds Percussion/Palpation: + abdomen rigid and abdomen soft; abdomen nontender and no guarding Musculoskeletal: Head/Neck/Chest: normocephalic and head atraumatic L ankle with wrap currently in place - did not assess open wound on this day Neurologic: moves all extremities Psychiatric: Orientation: alert Results & Data Vital Signs (Past 12 Hours) Vital Signs Temp Pulse Resp BP Pulse Ox 10/18/19 18:53 36.6 C 78 18 144/63 H 91 10/18/19 15:14 37.1 C 78 20 131/62 89 L 10/18/19 11:52 36.6 C 80 24 147/70 H 91 PG Care Time/CCT Total # of Minutes Spent Total Time Spent with Patient: Total time spent is greater than 50% in coordination of care (as documented) at patient's floor/unit and/or counseling patient: (1) Alcoholic cirrhosis Ascites presence: unspecified Qualified Code(s): K70.30 - Alcoholic cirrhosis of liver without ascites (2) Rhabdomyolysis Rhabdomyolysis type: non-traumatic Qualified Code(s): M62.82 - Rhabdomyolysis (3) Sepsis Sepsis acute organ dysfunction status: unspecified Sepsis type: sepsis due to unspecified organism Qualified Code(s): A41.9 - Sepsis, unspecified organism (4) Altered mental status Altered mental status type: unspecified Qualified Code(s): R41.82 - Altered mental status, unspecified
[2019-10-19] MEDS: PIPERACILLIN/TAZOBACTAM 4.5 GM in DEXTROSE 5% 100 ML IV SCH ×3 (01:45→21:36)
[2019-10-19] MEDS: SODIUM CHLORIDE 0.9% 1000ML 1,000 ML IV SCH ×4 (03:34→15:07)
[2019-10-19 05:53] LABS: Hematocrit (blood only) 27.5 % (42-52); Hemoglobin 9.3 g/dL (14.0-18.0); Mean Corpuscular Hemoglobin 34.2 pg (25-34); Mean Corpuscular Hgb Conc 33.8 g/dL (32-36); Mean Corpuscular Volume 101.1 fL (80-100); RDW Coefficient of Variation 17.9 % (11.5-14.5); RDW Standard Deviation 64.7 fL (36.4-46.3); Red Blood Count 2.72 M/uL (4.7-6.1); White Blood Count 6.45 K/uL (4.8-10.8)
[2019-10-19] MEDS ORDERED: CEFAZOLIN 2000MG 2,000 MG/15 ML SYR IV ONE (06:00)
[2019-10-19 06:06] LABS: Mean Platelet Volume 10.3 fL (7.4-10.4); Platelet Count 76 K/uL (130-400)
[2019-10-19 06:14] LABS: Basophils # (auto) 0.02 K/uL (0-0.2); Basophils % (auto) 0.3 %; Echinocytes 1+; Eosinophils % (auto) 4.7 %; Immature Granulocytes # (auto) 0.03 K/uL (0.00-0.02); Immature Granulocytes % (auto) 0.5 %; Lymphocytes # (auto) 0.77 K/uL (1.2-3.4); Lymphocytes % (auto) 11.9 %; Monocytes # (auto) 1.35 K/uL (0.11-0.59); Monocytes % (auto) 20.9 %; Neutrophils # (auto) 3.98 K/uL (1.4-6.5); Neutrophils % (auto) 61.7 %
[2019-10-19 06:20] LABS: INR 1.9 (0.9-1.1); Partial Thromboplastin Ratio 1.7; Prothrombin Time 18.9 Seconds (9.0-12.0)
[2019-10-19 06:27] LABS: Partial Thromboplastin Time 46.5 Seconds (21.0-31.0)
[2019-10-19 06:28] LABS: Albumin Level 1.7 gm/dl (3.4-5.0); Bilirubin Direct 2.3 mg/dl (0-0.2); Bilirubin,Total 3.9 mg/dl (0.2-1); Calcium 7.4 mg/dl (8.5-10.1); Creatinine Clr Calc Pharmacy 69.1 ml/min; Est GFR (African American) 90.3; Est GFR (Non-African American) 77.9; Magnesium 1.8 mg/dl (1.8-2.4); Phosphorus 1.9 mg/dl (2.5-4.9); Total Protein 5.6 gm/dl (6.4-8.2)
[2019-10-19] MEDS ORDERED: ROPIVACAINE 0.5% 5 MG/ML 30 ML VIAL ONE (06:40)
[2019-10-19] MEDS ORDERED: PHYTONADIONE 10 MG in SODIUM CHLORIDE 0.9% 50 ML IV ONE (07:15)
--- NOTE | 2019-10-19 07:16 | XRay Report ---
XR chest 1V portable CLINICAL HISTORY: PNA dyspnea COMPARISON STUDY: 10/18/2019 FINDINGS: Mild stable cardiomegaly. Prominent pulmonary vasculature. Diaphragms are smooth. Slight ch ronic blunting right lateral costophrenic angle. IMPRESSION: Prominent pulmonary vasculature considered unchanged. Stable cardiomegaly. Slight improv ement in aeration left lung base. ACT 112: Negative or not required by law. The above report was generated using voice recognition software. It may contain grammatical, syntax or spelling errors. Electronically signed by: Epifanio Denise M.D. 10/19/2019 7:14 AM
[2019-10-19] MEDS ORDERED: CEFAZOLIN 2,000 MG/15 ML IV PUSH IV ONE (08:58)
[2019-10-19] MEDS ORDERED: DEXAMETHASONE SOD INJ 4 MG/ML VIAL ONE (08:59)
[2019-10-19] MEDS ORDERED: PROPOFOL IV EMULSION 10 MG/ML 20 ML VIAL IV ONE (08:59)
[2019-10-19] MEDS ORDERED: NEOSTIGMINE METHYLSULFATE 5 MG/5 ML SYR ONE (08:59)
[2019-10-19] MEDS ORDERED: LIDOCAINE HCL 2% 2 ML VIAL/AMP(20MG/ML) INFIL ONE (08:59)
[2019-10-19] MEDS ORDERED: fentaNYL citrate 100 MCG/2 ML VIAL ONE ×2 (08:59→12:27)
[2019-10-19] MEDS ORDERED: GLYCOPYRROLATE 0.2 MG/ML VIAL ONE (08:59)
[2019-10-19] MEDS ORDERED: MIDAZOLAM HCL 1 MG/ML 2ML VIAL ONE (08:59)
[2019-10-19] MEDS ORDERED: ONDANSETRON INJ 2 MG/ML 2 ML VIAL ONE (08:59)
--- NOTE | 2019-10-19 09:15 | History & Physical Bridge Note ---
Date of Service October 19, 2019 History & Physical Bridge Note I have examined the patient, reviewed the History & Physical and in the interval since the performance of the History & Physical I have noted the following changes of clinical significance: no changes noted
--- NOTE | 2019-10-19 09:17 | Pharmacy Report ---
Pharmacy Abx Dose Short Note - Date of Service October 19, 2019 - Assessment & Plan A/P Patient meets criteria for vancomycin AUC dosing nomogram - renal fxn now at baseline, will adjust dose and frequency per nomogram to more accurately reflect pt's renal fxn. AUC/YOCASTA is the preferred PK/PD target for vancomycin Target AUC/YOCASTA = 400-600 AUC guided dosing is effective and associated with decreased risk of nephrotoxicity Trough levels poorly correlate with AUC/YOCASTA and trough monitoring has been associated with increased risk of nephrotoxicity. Trough is ordered for 10/21/19 @0930 to ensure we are achieving accurate levels per nomogram. Zosyn - dosed appropriately based on clinical status Pharmacy will continue to follow and will adjust dose/frequency as necessary. Thank you.
[2019-10-19] MEDS ORDERED: ATROPINE SULFATE 0.1 MG/ML 10ML SYR IV PRN (09:19)
[2019-10-19] MEDS ORDERED: ONDANSETRON INJ 2 MG/ML 2 ML VIAL IV PRN ×2 (09:19→12:44)
[2019-10-19] MEDS ORDERED: fentaNYL citrate 100 MCG/2 ML VIAL IV PRN (09:19)
[2019-10-19] MEDS ORDERED: ePHEDrine sulfate 50 MG/ML AMP IV PRN (09:19)
[2019-10-19] MEDS ORDERED: HYDROmorphone INJ 1 MG/ML SYRINGE IV PRN (09:19)
[2019-10-19] MEDS ORDERED: BUPIVACAINE 0.5 % 5 MG/1 ML MPF 30ML VIAL ONE (09:27)
[2019-10-19] MEDS ORDERED: LIDOCAINE HCL 1% 20 ML VIAL ONE (09:27)
[2019-10-19] MEDS ORDERED: BACITRACIN INJ 50,000 UNIT VIAL ONE (09:27)
[2019-10-19 09:29] LABS: INR 1.8 (0.9-1.1)
[2019-10-19] MEDS ORDERED: KETAMINE HCL INJ 50 MG/ML 10 ML VIAL ONE (09:38)
[2019-10-19] MEDS ORDERED: SODIUM CHLORIDE 0.9% 250 ML IV PRN (09:46)
[2019-10-19] MEDS ORDERED: VANCOMYCIN HCL 1000MG/20ML VIAL ONE (10:27)
[2019-10-19] MEDS ORDERED: GENTAMICIN SULFATE 40 MG/ML 2 ML VIAL ONE (10:27)
[2019-10-19] MEDS: VANCOMYCIN HCL 1,250 MG in SODIUM CHLORIDE 0.9% 250 ML IV SCH ×2 (10:52→21:10)
[2019-10-19] MEDS ORDERED: THROMBIN FOR SOLN 20000 UNIT KIT ONE (11:35)
[2019-10-19] MEDS ORDERED: GELATIN SPONGE SZ 100 ONE (11:36)
[2019-10-19] MEDS ORDERED: ROCURONIUM BROMIDE 10 MG/ML 5 ML VIAL ONE (11:49)
[2019-10-19] MEDS ORDERED: ESMOLOL HCL INJ 10 MG/ML 10ML VIAL IV ONE (12:04)
--- NOTE | 2019-10-19 12:21 | Fluoroscopy Report ---
INTRAOPERATIVE RADIOGRAPHS CLINICAL HISTORY: Hardware removal left ankle Fluoroscopy time: 5 seconds. FINDINGS: 3 spot fluoroscopic views of the left ankle are correlated with radiographs dated 9. There is chronic posttraumatic deformity of the distal tibia and fibula. A cortical lag screw and a pin transfixing medial malleolus. A buttress plate along the distal fibula seen previously has been removed. Soft tissue edema is noted. IMPRESSION: Intraoperative images showing removal of a buttress plate along the distal fibula. Electronically signed by: Anuj Dominguez M.D. 10/19/2019 12:20 PM
[2019-10-19] MEDS ORDERED: bisacodyL 10 MG SUPP PR PRN (12:44)
[2019-10-19] MEDS ORDERED: MAGNESIUM HYDROXIDE SUSP 30 ML UDC PO PRN (12:44)
[2019-10-19] MEDS ORDERED: NALOXONE HCL 0.4 MG/1 ML VIAL/CARP IV PRN (12:44)
[2019-10-19] MEDS ORDERED: DiphenhydrAMINE HCL 50 MG/ML VIAL IV PRN (12:44)
[2019-10-19] MEDS ORDERED: METOCLOPRAMIDE HCL INJ 5 MG/ML 2 ML VIAL IV PRN (12:44)
--- NOTE | 2019-10-19 12:47 | Operative Report ---
Post Operative Report Pre & Post Diagnosis Operation Date: 10/19/19 08:40 Pre-Op Diagnosis: Left Ankle Wound, Exposed Hardware Post-Op Diagnosis: Left Ankle Wound, Exposed Hardware, Osteomyelitis I identified the patient and participated in the time-out.: Yes Procedure Operation Date: 10/19/19 08:40 Actual Procedures p Left Removal Hardware Ankle(Left) - Markie Hathaway MD s Left Incision and Drainage Ankle(Left) - Markie Hathaway MD Surgeon Dr Hathaway Choir Leader Nadege Montanez PA-C Estimated Blood Loss 50 Findings Consistent with Post-Op Diagnosis Specimens bone and soft tissue Complications none Indications See Dr Hathaway operative note Description of Procedure See Dr Hathaway operative note. I was registered nurse first assistant during entire case to include prepping, draping, limb and instrument handling. wound closure, wound vac, dressings, and splint application. I attest to the content of the Intraoperative Record and any orders documented therein. Any exceptions are noted below. Supervising Physician Co-Signing Physician Notes I saw and evaluated the patient with Rey Castro, and agree with findings and plan as documented in the note. 69-year-old male with significant past medical history of alcoholic liver cirrhosis, diastolic CHF, history of portal vein thrombosis on warfarin, peptic ulcer disease was admitted because of altered mental status and rhabdomyolysis. Patient was also hypothermic at the time of presentation. Patient likely had a syncopal episode he fell down in the bathroom and was out for a while. Patient has bruise all over his body. At the time of presentation patient was awake alert and oriented to self and place. CPK is in the 5000. CT chest abdomen and pelvis reviewed. No clear source of sepsis although the procalcitonin is high. Continue with broad-spectrum antibiotics for the time being. Continue with IV fluids to maintain good urine output given the patient is in rhabdo. Hold anticoagulation given the INR is supratherapeutic. Aspiration precautions. Keep patient n.p.o. I have spent more than 50% of this minute encounter in counseling and/or coordination of care with patient.
--- NOTE | 2019-10-19 12:49 | Operative Report ---
Post Operative Report Pre & Post Diagnosis Operation Date: 10/19/19 08:40 Pre-Op Diagnosis: Left Ankle Wound, Exposed Hardware Post-Op Diagnosis: Left Ankle Wound, Exposed Hardware, Osteomyelitis I identified the patient and participated in the time-out.: Yes Procedure Operation Date: 10/19/19 08:40 Actual Procedures p Left Removal Hardware Ankle(Left) - Markie Hathaway MD s Left Incision and debridement ankle(Left) - Markie Hathaway MD Application of wound VAC Surgeon Markie Hathaway MD Braided Rug Maker Nadege Montanez Estimated Blood Loss 50 Findings Consistent with Post-Op Diagnosis Specimens Cultures x3 and biopsy x2 Drains Wound VAC Anesthesia Type General Complications none Disposition Accompanied Patient To Recovery: No Disposition: Recovery Room Indications Patient is status post revision ORIF of left ankle fracture several years ago. He was found down the day after Kamini. Admitted to the hospital with rhabdomyolysis. He is also had an GA. Multiple other medical problems including bacteremia metabolic encephalopathy pneumonia acute kidney injury sepsis, history of alcoholism and portal vein thrombosis. Alcoholic cirrhosis. He was found to have a wound on the lateral side of his left ankle with exposed orthopedic hardware. He was given intravenous vitamin K and his Coumadin was withheld. His INR was 1.8 at the time of surgery. He had been typed and screened. He is taken to surgery for irrigation debridement removal of his hardware. Description of Procedure Informed consent obtained. Patient identified. He identified the operative site as the left ankle. I marked with my initials. Preop surgical timeout was performed and preop dose of IV antibiotics was given. He was positioned supine on the OR table with a bump under the left hip and a tourniquet on the left thigh. The leg was prepped and draped with Betadine in usual sterile fashion. Limb exsanguinated with gravity and the tourniquet inflated to 250 mmHg. DVT prophylaxis with mechanical devices intraoperatively. The ankle was not swollen but he did have pitting edema in the leg. There was no erythema. There was an open wound about 2 cm in diameter the upper third of which was covered with a necrotic fibrinous debris. The wound margins himself looked fairly well demarcated. The prior incision was opened and the open wound was ellipsed back to more healthy-appearing tissue. There was undermining anterior distal and posterior with granulation tissue and what appeared to be some bursal type tissue present. The wound appeared to be much older than a couple days. The superficial peroneal nerve was identified proximally preserved and protected. The open wound communicated directly with the plate which then easily communicated up the length of the plate proximally. The plate was exposed. Roni like fibrinous debris was debrided and sent for specimen. The orthopedic hardware was easily removed. Screw holes were all curettaged and hand reamed with a drill bit. Distally an area of soft bone posterior aspect of the malleolus is noted. This was easily debrided with rongeur and curette revealing a cavity 2 cm proximal to distal and 1.5 cm anterior to posterior and it was 1+ centimeter deep going down to the far cortex. This was debrided with a curette. The wound was irrigated with pulsatile lavage. Calcium sulfate beads with vancomycin and gentamicin were then packed into all of the screw holes and the distal cavity. Prior to this the tourniquet was let down and meticulous hemostasis was performed. The surface of the bone was curettaged and debrided with a rongeur. There was fibrinous snot-like debris throughout the length of the plate. A culture of the superficial wound was obtained. A culture of the bone cavity was obtained. A culture of the undersurface of the plate and surface of the bone was done. These were sent for Gram stain aerobic and anaerobic culture. The infected bone was sent for separate specimen #2. To close hemostasis. The distal bone area bled. This appeared to be oozing from the bone. I cannot find a distinct bleeder. This was eventually controlled with pressure and Gelfoam with thrombin which was removed from the wound. Antibiotic beads were packed into this area as well. The skin was closed in a full-thickness fashion using interrupted 2-0 and 3-0 nylon sutures. Near far far near stitches and horizontal mattress stitches and simple stitches were utilized. I undermined the skin at the level of the wound and close it is best as possible but it still remained open for 1- 1/2 cm anterior to posterior and 2 cm proximal to distal. The bone and part of the cavity was exposed. A wound VAC was then applied by the wound care nurse. This was followed by well-padded posterior splint with U stirrup. Patient is then awakened from anesthesia without difficulty and taken to recovery in stable condition. Specimens were as mentioned above. Counts were correct. Blood loss was 50 cc. At the conclusion the operation spoke patient's family and informed of my findings and gave postoperative instructions. We will speak with medicine about the holding his Coumadin and perhaps placing him on Lovenox. ID consult. Continue intravenous antibiotics. He will need plastic surgery consultation for further wound management. Further surgery might be necessary. He is to be nonweightbearing on the left leg for the time being. I attest to the content of the Intraoperative Record and any orders documented therein. Any exceptions are noted below.
[2019-10-19 13:15] LABS: Hematocrit (blood only) 29.2 % (42-52); Hemoglobin 9.8 g/dL (14.0-18.0)
[2019-10-19] MEDS ORDERED: LOPERAMIDE HCL 2 MG CAP PO PRN (13:59)
--- NOTE | 2019-10-19 14:00 | Anesthesiology Progress Note ---
Date of Service October 19, 2019 Anesthesia Post Procedure Vital Signs Vital Signs: Temp Pulse Pulse Resp BP BP Pulse Ox 10/19/19 13:45 39.6 C H 70 18 128/71 95 10/19/19 13:13 69 13 126/70 95 10/19/19 13:00 73 13 125/62 96 10/19/19 12:50 73 16 118/64 96 10/19/19 12:40 74 17 125/62 96 10/19/19 12:31 37.1 C 74 12 125/63 96 10/19/19 08:43 36.8 C 73 16 135/63 96 10/19/19 08:15 71 20 119/59 L 98 10/19/19 08:00 69 10/19/19 07:55 36.9 C 68 20 133/61 98 10/19/19 07:11 36.6 C 71 24 145/69 H 98 10/19/19 03:30 36.7 C 77 19 139/64 93 10/18/19 23:36 36.6 C 75 20 133/60 94 10/18/19 18:53 36.6 C 78 18 144/63 H 91 10/18/19 15:14 37.1 C 78 20 131/62 89 L Pain Intensity Generalized: Pain Intensity: 5 Transfer of Care Handoff Completed per policy Notes Mental Status: alert / awake / arousable and participated in evaluation Patient Amnestic to Procedure: Yes Nausea / Vomiting: adequately controlled Pain: adequately controlled Airway Patency, RR, SpO2: stable & adequate BP & HR: stable & adequate Hydration State: stable & adequate Anesthetic Complications: no major complications apparent and Pt Satisfied with anesthetic care
[2019-10-19] MEDS: MUPIROCIN 2% OINT 22 GM TUBE EXT SCH ×2 (14:16→20:51)
[2019-10-19] MEDS: KETOCONAZOLE 2% CR 15 GM TUBE EXT SCH ×2 (14:16→21:14)
[2019-10-19] MEDS: DOXYCYCLINE HYCLATE 100 MG in DEXTROSE 5% 100 ML IV SCH (14:27)
[2019-10-19] MEDS: FERROUS SULFATE 325 MG TAB PO SCH (14:28)
[2019-10-19] MEDS: FAMOTIDINE 20 MG in SYRINGE 3 ML IV SCH ×2 (14:29→21:11)
[2019-10-19] MEDS ORDERED: Nursing to Pharmacy Communication ONE (15:28)
[2019-10-19] MEDS: SENNA 8.6 MG TAB PO SCH (20:52)
[2019-10-19] MEDS: DOCUSATE SODIUM 100 MG CAP PO SCH (20:52)
[2019-10-19] MEDS: OXYCODONE HCL IR 5 MG TAB (IMMEDIATE RELEASE) PO PRN (21:10)
[2019-10-19] MEDS: LIDOCAINE HCL 2% VISCOUS 60 ML, DiphenhydrAMINE Syrup 150 MG, ALUMINUM/MAGNESIUM SUSP 6... PO PRN (21:12)
--- NOTE | 2019-10-19 23:09 | Hospitalist Progress Note ---
Date of Service October 19, 2019 Assessment & Plan (1) Osteomyelitis: Left Ankle Wound, Exposed Hardware, Osteomyelitis noted on procedure which included, removal of hardware and debridement. will place on antibitoics which include vancomycin. consult ID. and will monitor. will likely require PICC line once he gets close to discharge. also consulted wound care. will resume heparin tomorrow in AM due to vein thrombosis. (2) Rhabdomyolysis: -Traumatic rhabdomyolysis. - Fall - uncertain of all details or length of time down - last seen by daughter on . Found in the bathroom with the sink pulled off the wall and laying in water and was found initially hypothermic. Daughter states the hot water pipe was leaking water too and it was still warm so didn't think he may have been down too long -- Today patient thinks this might have happened on 10/14 but not completely sure - CK 5000 on admission and trending down - CK is now below 700. (3) Bacteremia: - 1 of 2 BCx with gram negative bacilli -1 of 2 gram postivie: awaiting finalized culture - question source as ankle given laying in bathroom; so far urine cx negative; gram negative pneumonia? - will await identification - Repeat BCx in AM to test for sterility: which is negative (4) Pneumonia: - Current cough with clear sputum currently; saturating appropriately on RA - CT with suggestion of pneumonia - given leukocytosis, procal, desaturations this is possible - Doxycycline 100 mg BID, Zosyn, and Vanc - broad coverage given possibly superimposed skin issues - Nebs (5) Sepsis: - Know with + BCx - gram neg bacill; UCx prelim but no growth/<1000 colonies- Likely pneumonia vs skin as possible source; leukocytosis, hypoxia (desaturations in the ER from 84-88% during my assessment but not documented on routine vitals), elevated lactic acid, elevated procal, hypotension - this is likely a mixed picture given dehydration/rhabdo - Treatment as above (6) Elevated troponin: - Troponin appears to likely peak at 6.1 and trending down - Given multiple factors likely some demand ischemia but possibility of resolving cardiac issue - Echo - EF 60-65%; no regional wall motion abnormalities; mild LVH (7) Acute kidney injury: - Likely pre-renal in the setting of dehydration/rhabdo; Baseline appears < 1 - Will provide IV hydration and continue to trend; avoid nephrotoxins (8) Altered mental status: - Likely in the setting of infection/dehydration - likely metabolic encephalopathy- RESOLVED but fatigued - Treatment as above (9) COPD (chronic obstructive pulmonary disease): - Associated pulmonary HTN - Does not appear to be in an exacerbation at this time and will monitor - Nebulizers (10) Alcoholic cirrhosis: - Not currently drinking; follows with [facility] - Will continue to monitor for any acute hepatic issues (11) Portal vein thrombosis: - On Coumadin therapy - follows with [facility] -due to surgery will hold coumadin and reverse INR. will place on heparin in AM due to portal thrombosis. (12) Exposed orthopaedic hardware: - Open wound to L lateral ankle with exposed hardware - Orthopedics consulted - initial surgery performed by Dr. Hathaway -- Discussed with Dr. Brownlee with [facility] Orth[facility] - given his comorbidities would not be a good surgical candidate at this time - recommend wound care assessment to see if stabilization can occur with their treatment - ultimately definitive treatment would be I&D with hardware removal Disposition: PT/OT when acute issues improve; currently lives alone; appreciate case management discussions Subjective Patient has no new complaints. Review of Systems Review of Systems: All systems reviewed & are unremarkable except as noted in HPI & below Physical Exam Physical Exam: Constitutional: Appears to be resting comfortably. Eyes: sclerae not anicteric (mildly icteric) Neck: trachea midline Respiratory: normal respiratory effort and + cough Auscultation: + diminished lung sounds Cardiovascular: Rate/Rhythm: regular rate and regular rhythm Heart Sounds: no murmur Gastrointestinal (Abdomen): Inspection/Auscultation: + abdomen distended (mild) and normal bowel sounds Percussion/Palpation: + abdomen rigid and abdomen soft; abdomen nontender and no guarding Musculoskeletal: Head/Neck/Chest: normocephalic and head atraumatic L ankle with wrap currently in place - did not assess open wound on this day Neurologic: moves all extremities Psychiatric: Orientation: alert, Ox Results & Data Vital Signs (Past 12 Hours) Vital Signs Temp Pulse Pulse Pulse Resp BP Pulse Ox 10/19/19 19:13 36.8 C 72 18 130/62 98 10/19/19 18:37 36.4 C L 65 124/67 97 10/19/19 16:45 70 128/71 10/19/19 16:00 65 10/19/19 15:45 63 117/67 10/19/19 15:14 67 125/73 10/19/19 14:32 77 18 113/60 96 10/19/19 14:15 73 18 121/71 95 10/19/19 14:00 76 18 118/59 L 96 10/19/19 13:45 39.6 C H 70 18 128/71 95 10/19/19 13:13 69 13 126/70 95 10/19/19 13:00 73 13 125/62 96 10/19/19 12:50 73 16 118/64 96 10/19/19 12:40 74 17 125/62 96 10/19/19 12:31 37.1 C 74 12 125/63 96 PG Care Time/CCT Total # of Minutes Spent Total Time Spent with Patient: Total time spent is greater than 50% in coordination of care (as documented) at patient's floor/unit and/or counseling patient: (1) Alcoholic cirrhosis Ascites presence: unspecified Qualified Code(s): K70.30 - Alcoholic cirrhosis of liver without ascites (2) Rhabdomyolysis Rhabdomyolysis type: non-traumatic Qualified Code(s): M62.82 - Rhabdomyolysis (3) Sepsis Sepsis acute organ dysfunction status: unspecified Sepsis type: sepsis due to unspecified organism Qualified Code(s): A41.9 - Sepsis, unspecified organism (4) Altered mental status Altered mental status type: unspecified Qualified Code(s): R41.82 - Altered mental status, unspecified
[2019-10-20] MEDS: SODIUM CHLORIDE 0.9% 1000ML 1,000 ML IV SCH (00:20)
[2019-10-20] MEDS: DOXYCYCLINE HYCLATE 100 MG in DEXTROSE 5% 100 ML IV SCH ×3 (00:20→20:35)
[2019-10-20] MEDS: PIPERACILLIN/TAZOBACTAM 4.5 GM in DEXTROSE 5% 100 ML IV SCH ×3 (05:15→22:31)
[2019-10-20 07:22] LABS: Hematocrit (blood only) 27.8 % (42-52); Hemoglobin 9.3 g/dL (14.0-18.0); Mean Corpuscular Hemoglobin 34.2 pg (25-34); Mean Corpuscular Hgb Conc 33.5 g/dL (32-36); Mean Corpuscular Volume 102.2 fL (80-100); RDW Coefficient of Variation 17.4 % (11.5-14.5); RDW Standard Deviation 63.2 fL (36.4-46.3); Red Blood Count 2.72 M/uL (4.7-6.1); White Blood Count 11.61 K/uL (4.8-10.8)
[2019-10-20 07:28] LABS: Mean Platelet Volume 10.3 fL (7.4-10.4); Platelet Count 94 K/uL (130-400)
[2019-10-20] MEDS: MUPIROCIN 2% OINT 22 GM TUBE EXT SCH ×2 (07:49→20:37)
[2019-10-20] MEDS: DOCUSATE SODIUM 100 MG CAP PO SCH ×2 (07:50→20:28)
[2019-10-20] MEDS: MULTIVITAMIN TAB PO SCH (07:50)
[2019-10-20] MEDS: FERROUS SULFATE 325 MG TAB PO SCH (07:50)
[2019-10-20] MEDS: KETOCONAZOLE 2% CR 15 GM TUBE EXT SCH ×2 (07:51→20:29)
[2019-10-20 07:52] LABS: BUN Creatinine Ratio 24.9 (10-20); Creatinine Clr Calc Pharmacy 71.3 ml/min; Est GFR (African American) 93.8; Est GFR (Non-African American) 80.9; Potassium 4.4 mmol/L (3.5-5.1)
[2019-10-20] MEDS: FAMOTIDINE 20 MG in SYRINGE 3 ML IV SCH ×2 (08:00→20:29)
[2019-10-20] MEDS ORDERED: BENZONATATE 100 MG CAPSULE PO PRN (09:45)
--- NOTE | 2019-10-20 09:51 | Hospitalist Progress Note ---
Date of Service October 20, 2019 Assessment & Plan (1) Osteomyelitis: - L megan wound with exposed hardware and osteomyelitis - S/P I&D and hardware removal on 10/19 - continued Abx and wound vac placement - Likely need for PICC line - ID/Wound Care consulted - appreciate input - Orthopedics following - NWB to LLE; note suggests Lovenox (portal vein thrombosis) and will need to discuss timing of resumption -- May need plastic surgery with wound closure? (2) Rhabdomyolysis: -Traumatic rhabdomyolysis - CK improving - Fall - uncertain of all details or length of time down - last seen by daughter on . Found in the bathroom with the sink pulled off the wall and laying in water and was found initially hypothermic. Daughter states the hot water pipe was leaking water too and it was still warm so didn't think he may have been down too long -- Patient thinks this might have happened on 10/14 but not completely sure - CK 5000 on admission and trending down (3) Bacteremia: - 1 of 2 BCx with gram negative bacilli still not identified - 1 of 2 gram positive - coag neg staph - await sensitivities - Question source as ankle given laying in bathroom; so far urine cx negative; gram negative pneumonia? - will await identification - Repeat BCx in AM to test for sterility: currently NGTD (4) Pneumonia: - Current cough with clear sputum currently; saturating appropriately on RA - CT with suggestion of pneumonia - given leukocytosis, procal, desaturations this is possible - Doxycycline 100 mg BID, Zosyn, and Vanc - broad coverage given possibly superimposed skin issues - Nebs; Tesmichelle radford PRN (5) Sepsis: - Now with + BCx - gram neg bacill/coag neg staph; UCx prelim but no growth/<1000 colonies- Likely pneumonia vs skin as possible source; leukocytosis, hypoxia (desaturations in the ER from 84-88% during my assessment but not documented on routine vitals), elevated lactic acid, elevated procal, hypotension - this is likely a mixed picture given dehydration/rhabdo - Treatment as above (6) Elevated troponin: - Troponin appears to likely peak at 6.1 and trending down; consistent with type 2 NSTEMI - Echo - EF 60-65%; no regional wall motion abnormalities; mild LVH - Cardiology followed and S/O - appreciate input (7) Acute kidney injury: - Likely pre-renal in the setting of dehydration/rhabdo; Baseline appears < 1 - Currently resolved and will monitor given Abx; avoid nephrotoxins (8) Altered mental status: - Likely in the setting of infection/dehydration - likely metabolic encephalopathy- RESOLVED - Treatment as above (9) COPD (chronic obstructive pulmonary disease): - Associated pulmonary HTN - Does not appear to be in an exacerbation at this time and will monitor - Nebulizers (10) Alcoholic cirrhosis: - Not currently drinking; follows with [facility] - Will continue to monitor for any acute hepatic issues (11) Portal vein thrombosis: - On Coumadin therapy - follows with [facility] - Due to surgery - coumadin held and reverse INR - ortho note suggests Lovenox and can discuss timing of resumption Disposition: Continue PT/OT - NWB to LLE; likely needs PICC/wound vac/Abx; Patient states his daughter stated she is not sure he would live at home alone Subjective Reports feeling a bit better but still achy all over. Complains of a continued dry mouth. Experiencing a nonproductive cough and will try some Tessalon perles. Reports pain medication is helping. Verbalizes no new complaints Review of Systems Constitutional: no fever and no chills Ear, Nose, Mouth, Throat: + dry mouth; no dysphagia Respiratory: + cough and + chest congestion; no dyspnea and no sputum production Cardiovascular: no chest pain and no lightheadedness Gastrointestinal: no abdominal pain, no nausea, no vomiting, no constipation and no diarrhea/loose stools Genitourinary: no dysuria Musculoskeletal: diffuse generalized pain "all over" but slightly improved Neurologic: + generalized weakness; no tingling and no numbness Physical Exam Constitutional: + frail appearing Eyes: sclerae not anicteric (mildly icteric) ENMT: Ears: no hearing impairment Mouth: + dry oral mucous membranes Neck: trachea midline Respiratory: normal respiratory effort and + cough Auscultation: + diminished lung sounds Cardiovascular: Rate/Rhythm: regular rate and regular rhythm Heart Sounds: no murmur Gastrointestinal (Abdomen): Inspection/Auscultation: normal bowel sounds Percussion/Palpation: abdomen soft; abdomen nontender, no guarding and abdomen not rigid Musculoskeletal: Head/Neck/Chest: normocephalic and head atraumatic Neurologic: moves all extremities L ankle with DEEDEE wrap and wound vac present Psychiatric: A+Ox3, euthymic affect Results & Data Vital Signs (Past 12 Hours) Vital Signs Temp Pulse Pulse Resp BP Pulse Ox 10/20/19 08:00 81 10/20/19 07:04 36.5 C 79 20 142/57 H 94 10/20/19 04:35 36.4 C L 75 19 119/64 95 10/20/19 00:24 36.5 C 79 19 139/60 93 10/20/19 00:00 70 PG Care Time/CCT Total # of Minutes Spent Total Time Spent with Patient: Total time spent is greater than 50% in coordination of care (as documented) at patient's floor/unit and/or counseling patient: (1) Rhabdomyolysis Rhabdomyolysis type: non-traumatic Qualified Code(s): M62.82 - Rhabdomyolysis (2) Sepsis Sepsis acute organ dysfunction status: unspecified Sepsis type: sepsis due to unspecified organism Qualified Code(s): A41.9 - Sepsis, unspecified organism (3) Altered mental status Altered mental status type: unspecified Qualified Code(s): R41.82 - Altered mental status, unspecified (4) Alcoholic cirrhosis Ascites presence: unspecified Qualified Code(s): K70.30 - Alcoholic cirrhosis of liver without ascites
[2019-10-20] MEDS: VANCOMYCIN HCL 1,250 MG in SODIUM CHLORIDE 0.9% 250 ML IV SCH ×2 (10:43→22:30)
--- NOTE | 2019-10-20 12:11 | Progress Notes ---
DATE: 10/20/2019 He is resting comfortably in bed with some ankle pain. I talked to him about the findings of surgery and the general plan. He is afebrile. His vital signs are stable. Pathology and cultures are pending. Blood cultures are negative. Urine output is 0.4 mL per kilogram per hour. White count 11, hemoglobin 9, hematocrit 28, platelet count is 94. PRP is noted. The wound VAC has put out some fluid, but it has been working properly and has not been putting out much fluid since shortly after surgery. He can wiggle his toes and feel the touch. The foot is not swollen and the dorsalis pedis pulse is 1+. IMPRESSION: 1. Non-ST elevated myocardial infarction, metabolic encephalopathy, pneumonia, acute kidney injury, rhabdomyolysis, altered mental status, sepsis, pulmonary hypertension, chronic obstructive pulmonary disease, alcoholic cirrhosis, portal vein thrombosis. 2. Exposed orthopedic hardware with probable chronic infection of the plate and chronic underlying osteomyelitis with incomplete soft tissue coverage and exposed underlying bone. PLAN: My findings were discussed with the patient. He is to continue with wound VAC, elevate, ice and remain nonweightbearing using the splint. We will coordinate change of the dressing with a wound care nurse either or Friday. We will continue the wound VAC. Continue IV antibiotics. He can be started back on some form of anticoagulation. I think that he is likely or possibly going to need further surgical intervention, so in the near future, I would not put him back on Coumadin. We could consider something like Lovenox if that is appropriate. We will coordinate with medicine. There are significant issues here. He has osteomyelitis. An open wound, which communicates directly to the bone with inadequate soft tissue coverage. He has a slew of health problems, which likely affect the ability to heal and affect the ability to do the likely complex procedures needed to cover the bone. This would be a free tissue transfer or a flap. The bone is weakened because of the plate removal and osteomyelitis. He would be at increased risk for fracture. I have discussed the situation with Dr. Stevenson here and some type of tissue transfer is likely to be necessary. We will discuss with plastic surgery at [facility] to see what further options might be.
[2019-10-20] MEDS: LIDOCAINE HCL 2% VISCOUS 60 ML, DiphenhydrAMINE Syrup 150 MG, ALUMINUM/MAGNESIUM SUSP 6... PO PRN (12:32)
[2019-10-20] MEDS: ENOXAPARIN INJ 40 MG/0.4 ML SYR SQ SCH (15:20)
[2019-10-20] MEDS: OXYCODONE HCL IR 5 MG TAB (IMMEDIATE RELEASE) PO PRN (20:26)
[2019-10-20] MEDS: SENNA 8.6 MG TAB PO SCH (20:28)
[2019-10-21] MEDS: PIPERACILLIN/TAZOBACTAM 4.5 GM in DEXTROSE 5% 100 ML IV SCH (05:06)
[2019-10-21 06:55] LABS: Creatinine Clr Calc Pharmacy 86.7 ml/min; Est GFR (African American) 101.4; Est GFR (Non-African American) 87.5
[2019-10-21] MEDS: KETOCONAZOLE 2% CR 15 GM TUBE EXT SCH ×2 (07:48→20:36)
[2019-10-21] MEDS: FERROUS SULFATE 325 MG TAB PO SCH (07:48)
[2019-10-21] MEDS: ENOXAPARIN INJ 40 MG/0.4 ML SYR SQ SCH (07:48)
[2019-10-21] MEDS: MULTIVITAMIN TAB PO SCH (07:48)
[2019-10-21] MEDS: DOCUSATE SODIUM 100 MG CAP PO SCH ×2 (07:48→20:36)
[2019-10-21] MEDS: MUPIROCIN 2% OINT 22 GM TUBE EXT SCH ×2 (07:49→20:36)
[2019-10-21] MEDS: FAMOTIDINE 20 MG in SYRINGE 3 ML IV SCH ×2 (07:50→20:35)
[2019-10-21] MEDS: DOXYCYCLINE HYCLATE 100 MG in DEXTROSE 5% 100 ML IV SCH ×3 (07:50→20:35)
--- NOTE | 2019-10-21 08:40 | Anesthesiology Progress Note ---
Date of Service October 21, 2019 Anesthesia Post Procedure Vital Signs Vital Signs: Temp Pulse Pulse Pulse Resp BP Pulse Ox 10/21/19 07:05 36.4 C L 81 19 122/54 L 94 10/21/19 03:48 36.5 C 85 18 126/60 92 10/21/19 00:00 84 10/20/19 23:21 36.7 C 88 19 136/64 91 10/20/19 20:08 36.6 C 87 19 136/63 96 10/20/19 15:43 36.6 C 89 18 125/63 93 10/20/19 15:15 86 10/20/19 10:52 36.5 C 87 20 145/66 H 95 Pain Intensity Generalized: Pain Intensity: 5 Left Leg: Pain Intensity: 5 Notes Mental Status: alert / awake / arousable and participated in evaluation Nausea / Vomiting: adequately controlled Pain: adequately controlled Airway Patency, RR, SpO2: stable & adequate BP & HR: stable & adequate Hydration State: stable & adequate
[2019-10-21] MEDS ORDERED: VANCOMYCIN TROUGH ONE (09:30)
[2019-10-21] MEDS ORDERED: CEFAZOLIN 2000MG 2,000 MG/15 ML SYR IV SCH (10:00)
[2019-10-21] MEDS: cefTRIAXone SODIUM 2,000 MG in DEXTROSE 5% 50 ML IV SCH (11:20)
--- NOTE | 2019-10-21 16:19 | Progress Notes ---
DATE: 10/21/2019 Resting comfortably in bed. No problems noted. He is afebrile. His vital signs are stable. Dorsalis pedis is 1+. He can wiggle the toes and feel a sensation. Swelling is minimal. The wound VAC is functioning. He notes pain in both upper leg areas, left greater than right. He cannot lift either leg off the bed. He can bend his knees to 45 degrees. There is no focal tenderness, no obvious bruising noted. CT scan of the abdomen and pelvis showed no fracture of the pelvis or hip. We will go ahead and get x-rays of the femurs and hips. Cultures from surgery have grown out methicillin-sensitive Staph superficially and deep from the bone where it was suspected to be infected. The culture from underneath the plate has grown out gram-positive bacilli and we will coordinate with pharmacy to ensure that he has adequate coverage for this. IMPRESSION: 1. Right distal fibular osteomyelitis with open wound and inadequate soft tissue coverage. 2. Non-ST elevated myocardial infarction with metabolic encephalopathy, pneumonia, acute kidney injury, rhabdomyolysis, altered mental status, sepsis, pulmonary hypertension, chronic obstructive pulmonary disease, alcoholic cirrhosis and portal vein thrombosis. PLAN: Continue prophylactic anticoagulation. Continue IV antibiotics. Nonweightbearing on the left leg. We will change the dressing and wound VAC tomorrow with wound care. I suspect the patient is going to need intermediate if not longer term care. We will coordinate further care with plastic surgery.
--- NOTE | 2019-10-21 16:39 | XRay Report ---
XR femur LT 2V routine CLINICAL HISTORY: left hip pain; s/p fall trauma. Pain. COMPARISON: None. DISCUSSION: Generalized degenerative change. No evidence for acetabular protrusion. No evidence for f racture. Moderate degenerative change left knee. Soft tissue vascular calcification is present. There is no evidence for soft tissue swelling. IMPRESSION: Degenerative change. No acute process. ACT 112: Negative or not required by law. The above report was generated using voice recognition software. It may contain grammatical, syntax or spelling errors. Electronically signed by: Epifanio Denise M.D. 10/21/2019 4:38 PM
--- NOTE | 2019-10-21 16:47 | XRay Report ---
XR femur RT 2V routine CLINICAL HISTORY: right hip pain; s/p fall trauma. Pain. COMPARISON: None. DISCUSSION: Moderate generalized degenerative change of the right knee femur as well as right hip. No evidence for acetabular protrusion. No acute bony abnormality. IMPRESSION: Moderate generalized degenerative change as described. No acute process. ACT 112: Negative or not required by law. The above report was generated using voice recognition software. It may contain grammatical, syntax or spelling errors. Electronically signed by: Epifanio Denise M.D. 10/21/2019 4:45 PM
--- NOTE | 2019-10-21 16:49 | XRay Report ---
XR hips NEISHA 1v w pelvis CLINICAL HISTORY: bilateral hip pain; s/p fall trauma. Pain. COMPARISON: None. DISCUSSION: Moderate generalized degenerative change. 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 These findings are considered pre-existing. No evidence for acetabular protrusion. Penile implants are present. IMPRESSION: Degenerative change as described. No acute process. 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 The above report was generated using voice recognition software. It may contain grammatical, syntax or spelling errors. Electronically signed by: Epifanio Denise M.D. 10/21/2019 4:48 PM
[2019-10-21] MEDS: SENNA 8.6 MG TAB PO SCH ×2 (20:36→20:38)
[2019-10-21] MEDS: OXYCODONE HCL IR 5 MG TAB (IMMEDIATE RELEASE) PO PRN (21:53)
--- NOTE | 2019-10-21 23:04 | Hospitalist Progress Note ---
Date of Service October 21, 2019 Assessment & Plan (1) Osteomyelitis: - L megan wound with exposed hardware and osteomyelitis - S/P I&D and hardware removal on 10/19 - continued Abx and wound vac placement - Likely need for PICC line - ID/Wound Care consulted - appreciate input - Orthopedics following - NWB to LLE; note suggests Lovenox (portal vein thrombosis) and will need to discuss timing of resumption -- May need plastic surgery with wound closure? This will be done once the acute issue has been taken care of. Switched to ceftriaxone for osteo and stopped zosyn. Choose ceftriaxone for pulmonary coverage. (2) Rhabdomyolysis: -Traumatic rhabdomyolysis - CK improving - Fall - uncertain of all details or length of time down - last seen by daughter on . Found in the bathroom with the sink pulled off the wall and laying in water and was found initially hypothermic. Daughter states the hot water pipe was leaking water too and it was still warm so didn't think he may have been down too long -- Patient thinks this might have happened on 10/14 but not completely sure - CK 5000 on admission and trending down (3) Bacteremia: - 1 of 2 BCx with gram negative bacilli still not identified - 1 of 2 gram positive - coag neg staph - await sensitivities - Question source as ankle given laying in bathroom; so far urine cx negative; gram negative pneumonia? - will await identification - Repeat BCx in AM to test for sterility: currently NGTD (4) Pneumonia: - Current cough with clear sputum currently; saturating appropriately on RA - CT with suggestion of pneumonia - given leukocytosis, procal, desaturations this is possible - Doxycycline 100 mg BID, Zosyn, and Vanc - broad coverage given possibly superimposed skin issues - Nebs; Tessalon perles PRN (5) Sepsis: - Now with + BCx - gram neg bacill/coag neg staph; UCx prelim but no growth/<1000 colonies- Likely pneumonia vs skin as possible source; leukocytosis, hypoxia (desaturations in the ER from 84-88% during my assessment but not documented on routine vitals), elevated lactic acid, elevated procal, hypotension - this is likely a mixed picture given dehydration/rhabdo - Treatment as above (6) Elevated troponin: - Troponin appears to likely peak at 6.1 and trending down; consistent with type 2 NSTEMI - Echo - EF 60-65%; no regional wall motion abnormalities; mild LVH - Cardiology followed and S/O - appreciate input (7) Acute kidney injury: - Likely pre-renal in the setting of dehydration/rhabdo; Baseline appears < 1 - Currently resolved and will monitor given Abx; avoid nephrotoxins (8) Altered mental status: - Likely in the setting of infection/dehydration - likely metabolic encephalopathy- RESOLVED - Treatment as above (9) COPD (chronic obstructive pulmonary disease): - Associated pulmonary HTN - Does not appear to be in an exacerbation at this time and will monitor - Nebulizers (10) Alcoholic cirrhosis: - Not currently drinking; follows with [facility] - Will continue to monitor for any acute hepatic issues (11) Portal vein thrombosis: - On Coumadin therapy - follows with [facility] - Due to surgery - coumadin held and reverse INR - ortho note suggests Lovenox and can discuss timing of resumption Disposition: Continue PT/OT - NWB to E; likely needs PICC/wound vac/Abx; Patient states his daughter stated she is not sure he would live at home alone Subjective Patient has no new complaints. Review of Systems Review of Systems: All systems reviewed & are unremarkable except as noted in HPI & below Physical Exam Physical Exam: Constitutional: + frail appearing Eyes: sclerae not anicteric (mildly icteric) ENMT: Ears: no hearing impairment Mouth: + dry oral mucous membranes Neck: trachea midline Respiratory: normal respiratory effort and + cough Auscultation: + diminished lung sounds Cardiovascular: Rate/Rhythm: regular rate and regular rhythm Heart Sounds: no murmur Gastrointestinal (Abdomen): Inspection/Auscultation: normal bowel sounds Percussion/Palpation: abdomen soft; abdomen nontender, no guarding and abdomen not rigid Musculoskeletal: Head/Neck/Chest: normocephalic and head atraumatic Neurologic: moves all extremities L ankle with DEEDEE wrap and wound vac present Psychiatric: A+Ox3, euthymic affect Results & Data Vital Signs (Past 12 Hours) Vital Signs Temp Pulse Pulse Resp BP Pulse Ox 10/21/19 19:05 36.7 C 86 18 146/63 H 92 10/21/19 15:25 36.7 C 91 H 91 H 18 148/65 H 94 10/21/19 11:40 36.6 C 85 20 139/60 93 PG Care Time/CCT Total # of Minutes Spent Total Time Spent with Patient: Total time spent is greater than 50% in coordination of care (as documented) at patient's floor/unit and/or counseling patient: (1) Alcoholic cirrhosis Ascites presence: unspecified Qualified Code(s): K70.30 - Alcoholic cirrhosis of liver without ascites (2) Rhabdomyolysis Rhabdomyolysis type: non-traumatic Qualified Code(s): M62.82 - Rhabdomyolysis (3) Sepsis Sepsis acute organ dysfunction status: unspecified Sepsis type: sepsis due to unspecified organism Qualified Code(s): A41.9 - Sepsis, unspecified organism (4) Altered mental status Altered mental status type: unspecified Qualified Code(s): R41.82 - Altered mental status, unspecified
[2019-10-22] MEDS: FERROUS SULFATE 325 MG TAB PO SCH (08:27)
[2019-10-22] MEDS: ENOXAPARIN INJ 40 MG/0.4 ML SYR SQ SCH (08:27)
[2019-10-22] MEDS: MULTIVITAMIN TAB PO SCH (08:28)
[2019-10-22] MEDS: FAMOTIDINE 20 MG in SYRINGE 3 ML IV SCH (08:36)
[2019-10-22] MEDS: DOCUSATE SODIUM 100 MG CAP PO SCH ×2 (08:36→20:29)
[2019-10-22] MEDS: DOXYCYCLINE HYCLATE 100 MG in DEXTROSE 5% 100 ML IV SCH (08:40)
[2019-10-22] MEDS: cefTRIAXone SODIUM 2,000 MG in DEXTROSE 5% 50 ML IV SCH (11:33)
[2019-10-22] MEDS: OXYCODONE HCL IR 5 MG TAB (IMMEDIATE RELEASE) PO PRN ×2 (14:12→20:40)
--- NOTE | 2019-10-22 14:25 | Progress Notes ---
DATE: 10/22/2019 Nicolás is resting comfortably in bed. He is having some leg discomfort. X-rays of femurs and both hips done yesterday are showing no acute injury. 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 No significant arthritis and no fracture. He is afebrile. His vital signs are stable. There have been no new relevant labs. He is on Lovenox. He is also on doxycycline ____ and ceftriaxone. The dressing is changed. He can wiggle his toes and feel throughout the foot. Dorsalis pedis 1+. Swelling is minimal. There is a blood clot within the wound and nothing is directly visualized below the surface of the skin. There is no significant erythema. Dressing is reapplied along with a splint. The wound care nurse will be around to reapply the VAC. IMPRESSION: 1. Osteomyelitis of the left distal fibula with open wound. 2. Non-ST elevated myocardial infarction, metabolic encephalopathy, pneumonia, kidney injury, rhabdomyolysis, altered mental status, sepsis, pulmonary hypertension, chronic obstructive pulmonary disease, alcoholic cirrhosis and portal vein thrombosis. PLAN: Continue Lovenox and intravenous antibiotics. Nonweightbearing on the left leg. I would recommend that he be transferred to a intermediate facility to meet his care needs. He can move his upper extremities and could transfer weightbearing as tolerated on the right leg, but no weight on the left. I have spoken to Dr. Donal Torres who is a plastic surgery attending at [place]. We discussed the case. He has agreed to see Mr. Fortune in followup as an outpatient to evaluate for further treatment options. Once Mr. Fortune has been transferred to a skilled care facility, we can arrange the appointment and transport could be done. This would be done at [facility]. Findings discussed with the patient and daughter. She inquired about the possibility of amputation, which is a possible consideration.
[2019-10-22] MEDS: KETOCONAZOLE 2% CR 15 GM TUBE EXT SCH ×2 (14:40→20:30)
[2019-10-22] MEDS: MUPIROCIN 2% OINT 22 GM TUBE EXT SCH ×2 (14:40→20:29)
[2019-10-22] MEDS ORDERED: ENOXAPARIN 1.5 MG/KG SQ SCH (18:00)
[2019-10-22] MEDS: ENOXAPARIN 150 MG/ML SYR SQ SCH (19:00)
[2019-10-22] MEDS: SENNA 8.6 MG TAB PO SCH (20:28)
[2019-10-22] MEDS: FAMOTIDINE 20 MG TAB PO SCH (20:29)
[2019-10-22] MEDS: DOXYCYCLINE HYCLATE 100 MG CAP PO SCH (20:30)
--- NOTE | 2019-10-22 22:49 | Hospitalist Progress Note ---
Date of Service October 22, 2019 Assessment & Plan (1) Osteomyelitis: - L megan wound with exposed hardware and osteomyelitis - S/P I&D and hardware removal on 10/19 - continued Abx and wound vac placement - Likely need for PICC line - ID/Wound Care consulted - appreciate input - Orthopedics following - NWB to LLE; note suggests Lovenox (portal vein thrombosis) and will need to discuss timing of resumption -- May need plastic surgery with wound closure? This will be done once the acute issue has been taken care of. Switched to ceftriaxone for osteo and stopped zosyn. Choose ceftriaxone for pulmonary coverage will continue at least until 10/24. (2) Rhabdomyolysis: -Traumatic rhabdomyolysis - CK improving - Fall - uncertain of all details or length of time down - last seen by daughter on . Found in the bathroom with the sink pulled off the wall and laying in water and was found initially hypothermic. Daughter states the hot water pipe was leaking water too and it was still warm so didn't think he may have been down too long -- Patient thinks this might have happened on 10/14 but not completely sure - CK 5000 on admission and trending down (3) Bacteremia: - 1 of 2 BCx with gram negative bacilli still not identified - 1 of 2 gram positive - coag neg staph - await sensitivities - Question source as ankle given laying in bathroom; so far urine cx negative; gram negative pneumonia? - will await identification - Repeat BCx in AM to test for sterility: currently NGTD (4) Pneumonia: - Current cough with clear sputum currently; saturating appropriately on RA - CT with suggestion of pneumonia - given leukocytosis, procal, desaturations this is possible - Doxycycline 100 mg BID, Zosyn, and Vanc - broad coverage given possibly s uperimposed skin issues - Nebs; Tessalon perles PRN (5) Sepsis: - Now with + BCx - gram neg bacill/coag neg staph; UCx prelim but no growth/<1000 colonies- Likely pneumonia vs skin as possible source; leukocytosis, hypoxia (desaturations in the ER from 84-88% during my assessment but not documented on routine vitals), elevated lactic acid, elevated procal, hypotension - this is likely a mixed picture given dehydration/rhabdo - Treatment as above (6) Elevated troponin: - Troponin appears to likely peak at 6.1 and trending down; consistent with type 2 NSTEMI - Echo - EF 60-65%; no regional wall motion abnormalities; mild LVH - Cardiology followed and S/O - appreciate input (7) Acute kidney injury: - Likely pre-renal in the setting of dehydration/rhabdo; Baseline appears < 1 - Currently resolved and will monitor given Abx; avoid nephrotoxins (8) Altered mental status: - Likely in the setting of infection/dehydration - likely metabolic encephalopathy- RESOLVED - Treatment as above (9) COPD (chronic obstructive pulmonary disease): - Associated pulmonary HTN - Does not appear to be in an exacerbation at this time and will monitor - Nebulizers (10) Alcoholic cirrhosis: - Not currently drinking; follows with [facility] - Will continue to monitor for any acute hepatic issues (11) Portal vein thrombosis: - On Coumadin therapy - follows with [facility] - Due to surgery - coumadin held and reverse INR - ortho note suggests Lovenox and can discuss timing of resumption Disposition: Continue PT/OT - NWB to E; likely needs PICC/wound vac/Abx; Patient states his daughter stated she is not sure he would live at home alone Subjective 69 yo male reports no new symptoms. Review of Systems Review of Systems: All systems reviewed & are unremarkable except as noted in HPI & below Physical Exam Physical Exam: Constitutional: + frail appearing Eyes: sclerae not anicteric (mildly icteric) ENMT: Ears: no hearing impairment Mouth: + dry oral mucous membranes Neck: trachea midline Respiratory: normal respiratory effort and + cough Auscultation: + diminished lung sounds Cardiovascular: Rate/Rhythm: regular rate and regular rhythm Heart Sounds: no murmur Gastrointestinal (Abdomen): Inspection/Auscultation: normal bowel sounds Percussion/Palpation: abdomen soft; abdomen nontender, no guarding and abdomen not rigid Musculoskeletal: Head/Neck/Chest: normocephalic and head atraumatic Neurologic: moves all extremities L ankle with DEEDEE wrap and wound vac present Psychiatric: A+Ox3, euthymic affect Results & Data Vital Signs (Past 12 Hours) Vital Signs Temp Pulse Resp BP Pulse Ox 10/22/19 19:23 37.0 C 95 H 20 133/57 L 92 10/22/19 15:32 37.1 C 83 20 126/59 L 92 10/22/19 11:55 36.9 C 83 20 145/65 H 94 PG Care Time/CCT Total # of Minutes Spent Total Time Spent with Patient: Total time spent is greater than 50% in coordination of care (as documented) at patient's floor/unit and/or counseling patient: (1) Alcoholic cirrhosis Ascites presence: unspecified Qualified Code(s): K70.30 - Alcoholic cirrhosis of liver without ascites (2) Rhabdomyolysis Rhabdomyolysis type: non-traumatic Qualified Code(s): M62.82 - Rhabdomyolysis (3) Sepsis Sepsis acute organ dysfunction status: unspecified Sepsis type: sepsis due to unspecified organism Qualified Code(s): A41.9 - Sepsis, unspecified organism (4) Altered mental status Altered mental status type: unspecified Qualified Code(s): R41.82 - Altered mental status, unspecified
[2019-10-23] MEDS: FERROUS SULFATE 325 MG TAB PO SCH (08:05)
[2019-10-23] MEDS: DOCUSATE SODIUM 100 MG CAP PO SCH ×2 (08:05→20:37)
[2019-10-23] MEDS: FAMOTIDINE 20 MG TAB PO SCH ×2 (08:05→20:37)
[2019-10-23] MEDS: DOXYCYCLINE HYCLATE 100 MG CAP PO SCH (08:05)
[2019-10-23] MEDS: MUPIROCIN 2% OINT 22 GM TUBE EXT SCH ×2 (08:05→20:37)
[2019-10-23] MEDS: MULTIVITAMIN TAB PO SCH (08:06)
[2019-10-23] MEDS: KETOCONAZOLE 2% CR 15 GM TUBE EXT SCH ×2 (08:07→20:37)
[2019-10-23] MEDS: cefTRIAXone SODIUM 2,000 MG in DEXTROSE 5% 50 ML IV SCH (10:01)
[2019-10-23] MEDS: OXYCODONE HCL IR 5 MG TAB (IMMEDIATE RELEASE) PO PRN ×3 (10:09→20:37)
[2019-10-23] MEDS: ENOXAPARIN 150 MG/ML SYR SQ SCH (17:41)
--- NOTE | 2019-10-23 20:04 | Hospitalist Progress Note ---
Date of Service October 23, 2019 Assessment & Plan (1) Osteomyelitis: - L megan wound with exposed hardware and osteomyelitis - S/P I&D and hardware removal on 10/19 - continued Abx and wound vac placement - Likely need for PICC line - ID/Wound Care consulted - appreciate input - Orthopedics following - NWB to LLE; note suggests Lovenox (portal vein thrombosis) and will need to discuss timing of resumption -- May need plastic surgery with wound closure? This will be done once the acute issue has been taken care of. Switched to ceftriaxone for osteo and stopped zosyn. Choose ceftriaxone for pulmonary coverage will continue at least until 10/24. (2) Rhabdomyolysis: -Traumatic rhabdomyolysis - CK improving - Fall - uncertain of all details or length of time down - last seen by daughter on . Found in the bathroom with the sink pulled off the wall and laying in water and was found initially hypothermic. Daughter states the hot water pipe was leaking water too and it was still warm so didn't think he may have been down too long -- Patient thinks this might have happened on 10/14 but not completely sure - CK 5000 on admission and trending down (3) Bacteremia: Coag neg gram + bacteria, repeat culture was negative. will require 4-6 weeks of IV antibitoics due to osteomyelitis. will consult with ID. Input will be on 10/25 (4) Pneumonia: - Current cough with clear sputum currently; saturating appropriately on RA - CT with suggestion of pneumonia - given leukocytosis, procal, desaturations this is possible - Doxycycline 100 mg BID, Zosyn, and Vanc - broad coverage given possibly superimposed skin issues - Nebs; Tessalon perles PRN (5) Sepsis: - Now with + BCx - gram neg bacill/coag neg staph; UCx prelim but no growth/<1000 colonies- Likely pneumonia vs skin as possible source; leukocytosis, hypoxia (desaturations in the ER from 84-88% during my assessment but not documented on routine vitals), elevated lactic acid, elevated procal, hypotension - this is likely a mixed picture given dehydration/rhabdo - Treatment as above (6) Elevated troponin: - Troponin appears to likely peak at 6.1 and trending down; consistent with type 2 NSTEMI - Echo - EF 60-65%; no regional wall motion abnormalities; mild LVH - Cardiology followed and S/O - appreciate input (7) Acute kidney injury: - Likely pre-renal in the setting of dehydration/rhabdo; Baseline appears < 1 - Currently resolved and will monitor given Abx; avoid nephrotoxins (8) Altered mental status: - Likely in the setting of infection/dehydration - likely metabolic encephalopathy- RESOLVED - Treatment as above (9) COPD (chronic obstructive pulmonary disease): - Associated pulmonary HTN - Does not appear to be in an exacerbation at this time and will monitor - Nebulizers (10) Alcoholic cirrhosis: - Not currently drinking; follows with [facility] - Will continue to monitor for any acute hepatic issues (11) Portal vein thrombosis: - On Coumadin therapy - follows with [facility] - Due to surgery - coumadin held and reverse INR - ortho note suggests Lovenox and can discuss timing of resumption Disposition: Continue PT/OT - NWB to E; likely needs PICC/wound vac/Abx; Patient states his daughter stated she is not sure he would live at home alone Subjective Patient reports feeling well. He has no new complaints. Review of Systems Review of Systems: All systems reviewed & are unremarkable except as noted in HPI & below Physical Exam Physical Exam: Constitutional: + frail appearing Eyes: sclerae not anicteric (mildly icteric) ENMT: Ears: no hearing impairment Mouth: + dry oral mucous membranes Neck: trachea midline Respiratory: normal respiratory effort and + cough Auscultation: + diminished lung sounds Cardiovascular: Rate/Rhythm: regular rate and regular rhythm Heart Sounds: no murmur Gastrointestinal (Abdomen): Inspection/Auscultation: normal bowel sounds Percussion/Palpation: abdomen soft; abdomen nontender, no guarding and abdomen not rigid Musculoskeletal: Head/Neck/Chest: normocephalic and head atraumatic Neurologic: moves all extremities L ankle with DEEDEE wrap and wound vac present Psychiatric: A+Ox3, euthymic affect Results & Data Vital Signs (Past 12 Hours) Vital Signs Temp Pulse Pulse Resp BP Pulse Ox 10/23/19 18:47 36.9 C 93 H 20 125/61 92 10/23/19 15:47 37.0 C 84 20 119/56 L 96 10/23/19 15:24 91 H 10/23/19 11:36 37.0 C 81 19 131/65 95 PG Care Time/CCT Total # of Minutes Spent Total Time Spent with Patient: Total time spent is greater than 50% in coordination of care (as documented) at patient's floor/unit and/or counseling patient: (1) Alcoholic cirrhosis Ascites presence: unspecified Qualified Code(s): K70.30 - Alcoholic cirrhosis of liver without ascites (2) Rhabdomyolysis Rhabdomyolysis type: non-traumatic Qualified Code(s): M62.82 - Rhabdomyolysis (3) Sepsis Sepsis acute organ dysfunction status: unspecified Sepsis type: sepsis due to unspecified organism Qualified Code(s): A41.9 - Sepsis, unspecified organism (4) Altered mental status Altered mental status type: unspecified Qualified Code(s): R41.82 - Altered mental status, unspecified
[2019-10-23] MEDS: SENNA 8.6 MG TAB PO SCH (20:37)
[2019-10-24] MEDS: MUPIROCIN 2% OINT 22 GM TUBE EXT SCH ×2 (07:53→20:40)
[2019-10-24] MEDS: FAMOTIDINE 20 MG TAB PO SCH ×2 (07:53→20:42)
[2019-10-24] MEDS: DOCUSATE SODIUM 100 MG CAP PO SCH ×2 (07:53→20:41)
[2019-10-24] MEDS: KETOCONAZOLE 2% CR 15 GM TUBE EXT SCH ×2 (07:53→20:42)
[2019-10-24] MEDS: MULTIVITAMIN TAB PO SCH (07:53)
[2019-10-24] MEDS: FERROUS SULFATE 325 MG TAB PO SCH (07:53)
[2019-10-24] MEDS: cefTRIAXone SODIUM 2,000 MG in DEXTROSE 5% 50 ML IV SCH (10:09)
[2019-10-24] MEDS: OXYCODONE HCL IR 5 MG TAB (IMMEDIATE RELEASE) PO PRN ×2 (16:49→20:40)
[2019-10-24] MEDS: ENOXAPARIN 150 MG/ML SYR SQ SCH (16:50)
[2019-10-24] MEDS: SENNA 8.6 MG TAB PO SCH (20:42)
[2019-10-24] MEDS: PANTOprazole 40 MG TAB PO SCH (21:57)
--- NOTE | 2019-10-24 23:35 | Hospitalist Progress Note ---
Date of Service October 24, 2019 Assessment & Plan (1) Osteomyelitis: - L megan wound with exposed hardware and osteomyelitis - S/P I&D and hardware removal on 10/19 - continued Abx and wound vac placement - Picc Line placed - ID/Wound Care consulted - appreciate input - Orthopedics following - NWB to LLE; note suggests Lovenox (portal vein thrombosis) -- May need plastic surgery with wound closure? This will be done once the acute issue has been taken care of. Patient initally on zosyn, this then transitioned to ceftriaxone for pulmonary coverage. On 10/25, will transition to caefazolin. (2) Rhabdomyolysis: -Traumatic rhabdomyolysis - CK improving - Fall - uncertain of all details or length of time down - last seen by daughter on . Found in the bathroom with the sink pulled off the wall and laying in water and was found initially hypothermic. Daughter states the hot water pipe was leaking water too and it was still warm so didn't think he may have been down too long -- Patient thinks this might have happened on 10/14 but not completely sure - CK 5000 on admission and trending down (3) Bacteremia: Coag neg gram + bacteria, repeat culture was negative. will require 4-6 weeks of IV antibitoics due to osteomyelitis. will consult with ID. Input will be on 10/25 (4) Pneumonia: - Current cough with clear sputum currently; saturating appropriately on RA - CT with suggestion of pneumonia - given leukocytosis, procal, desaturations this is possible - Doxycycline 100 mg BID, Zosyn, and Vanc - broad coverage given possibly superimposed skin issues - Nebs; Tessalon perles PRN (5) Sepsis: - Now with + BCx - gram neg bacill/coag neg staph; UCx prelim but no growth/<1000 colonies- Likely pneumonia vs skin as possible source; leukocytosis, hypoxia (desaturations in the ER from 84-88% during my assessment but not documented on routine vitals), elevated lactic acid, elevated procal, hypotension - this is likely a mixed picture given dehydration/rhabdo - Treatment as above (6) Elevated troponin: - Troponin appears to likely peak at 6.1 and trending down; consistent with type 2 NSTEMI - Echo - EF 60-65%; no regional wall motion abnormalities; mild LVH - Cardiology followed and S/O - appreciate input (7) Acute kidney injury: - Likely pre-renal in the setting of dehydration/rhabdo; Baseline appears < 1 - Currently resolved and will monitor given Abx; avoid nephrotoxins (8) Altered mental status: - Likely in the setting of infection/dehydration - likely metabolic encephalopathy- RESOLVED - Treatment as above (9) COPD (chronic obstructive pulmonary disease): - Associated pulmonary HTN - Does not appear to be in an exacerbation at this time and will monitor - Nebulizers (10) Alcoholic cirrhosis: - Not currently drinking; follows with [facility] - Will continue to monitor for any acute hepatic issues (11) Portal vein thrombosis: - On Coumadin therapy - follows with [facility] - Due to surgery - coumadin held and reverse INR - on lovenox. -will recheck INR in AM and start coumadin Disposition: Continue PT/OT - NWB to LLE; likely needs PICC/wound vac/Abx; Patient states his daughter stated she is not sure he would live at home alone Subjective Patient reports no new symptoms. Review of Systems Review of Systems: All systems reviewed & are unremarkable except as noted in HPI & below Physical Exam Physical Exam: Constitutional: + frail appearing Eyes: sclerae not anicteric (mildly icteric) ENMT: Ears: no hearing impairment Mouth: + dry oral mucous membranes Neck: trachea midline Respiratory: normal respiratory effort and + cough Auscultation: + diminished lung sounds Cardiovascular: Rate/Rhythm: regular rate and regular rhythm Heart Sounds: no murmur Gastrointestinal (Abdomen): Inspection/Auscultation: normal bowel sounds Percussion/Palpation: abdomen soft; abdomen nontender, no guarding and abdomen not rigid Musculoskeletal: Head/Neck/Chest: normocephalic and head atraumatic Neurologic: moves all extremities L ankle with DEEDEE wrap and wound vac present Psychiatric: A+Ox3, euthymic affect Results & Data Vital Signs (Past 12 Hours) Vital Signs Temp Pulse Pulse Resp BP BP Pulse Ox 10/24/19 19:51 36.9 C 89 18 141/66 H 94 10/24/19 15:44 82 10/24/19 15:29 37.3 C 79 16 134/63 96 PG Care Time/CCT Total # of Minutes Spent Total Time Spent with Patient: Total time spent is greater than 50% in coordination of care (as documented) at patient's floor/unit and/or counseling patient: (1) Alcoholic cirrhosis Ascites presence: unspecified Qualified Code(s): K70.30 - Alcoholic cirrhosis of liver without ascites (2) Rhabdomyolysis Rhabdomyolysis type: non-traumatic Qualified Code(s): M62.82 - Rhabdomyolysis (3) Sepsis Sepsis acute organ dysfunction status: unspecified Sepsis type: sepsis due to unspecified organism Qualified Code(s): A41.9 - Sepsis, unspecified organism (4) Altered mental status Altered mental status type: unspecified Qualified Code(s): R41.82 - Altered mental status, unspecified
[2019-10-25] MEDS: CEFAZOLIN 2000MG 2,000 MG/15 ML SYR IV SCH ×3 (01:19→16:52)
[2019-10-25 06:19] LABS: Basophils # (auto) 0.02 K/uL (0-0.2); Basophils % (auto) 0.2 %; Eosinophils # (auto) 0.38 K/uL (0-0.5); Eosinophils % (auto) 3.8 %; Hematocrit (blood only) 24.6 % (42-52); Hemoglobin 8.2 g/dL (14.0-18.0); Immature Granulocytes # (auto) 0.09 K/uL (0.00-0.02); Immature Granulocytes % (auto) 0.9 %; Lymphocytes # (auto) 1.03 K/uL (1.2-3.4); Lymphocytes % (auto) 10.2 %; Mean Corpuscular Hemoglobin 34.6 pg (25-34); Mean Corpuscular Hgb Conc 33.3 g/dL (32-36); Mean Corpuscular Volume 103.8 fL (80-100); Mean Platelet Volume 10.2 fL (7.4-10.4); Monocytes # (auto) 1.94 K/uL (0.11-0.59); Monocytes % (auto) 19.2 %; Neutrophils # (auto) 6.63 K/uL (1.4-6.5); Neutrophils % (auto) 65.7 %; Platelet Count 100 K/uL (130-400); RDW Coefficient of Variation 18.5 % (11.5-14.5); RDW Standard Deviation 69.8 fL (36.4-46.3); Red Blood Count 2.37 M/uL (4.7-6.1); White Blood Count 10.09 K/uL (4.8-10.8)
[2019-10-25 06:30] LABS: INR 1.5 (0.9-1.1); Prothrombin Time 14.8 Seconds (9.0-12.0)
[2019-10-25 06:53] LABS: BUN Creatinine Ratio 28.9 (10-20); Calcium 7.9 mg/dl (8.5-10.1); Creatinine Clr Calc Pharmacy 115.1 ml/min; Est GFR (African American) 113.7; Est GFR (Non-African American) 98.1; Potassium 4.4 mmol/L (3.5-5.1)
[2019-10-25] MEDS: DOCUSATE SODIUM 100 MG CAP PO SCH ×2 (07:54→21:25)
[2019-10-25] MEDS: FERROUS SULFATE 325 MG TAB PO SCH (07:54)
[2019-10-25] MEDS: MULTIVITAMIN TAB PO SCH (07:54)
[2019-10-25] MEDS: FAMOTIDINE 20 MG TAB PO SCH ×2 (07:54→21:23)
[2019-10-25] MEDS: PANTOprazole 40 MG TAB PO SCH ×2 (07:55→21:23)
[2019-10-25] MEDS: MUPIROCIN 2% OINT 22 GM TUBE EXT SCH ×3 (07:55→21:32)
[2019-10-25] MEDS: KETOCONAZOLE 2% CR 15 GM TUBE EXT SCH ×2 (09:15→21:23)
[2019-10-25] MEDS: OXYCODONE HCL IR 5 MG TAB (IMMEDIATE RELEASE) PO PRN ×2 (09:20→16:24)
--- NOTE | 2019-10-25 09:27 | Progress Notes ---
DATE: 10/25/2019 He has been transferred to the regular medical floor. The ankle was sore. He is afebrile. His vital signs are stable. Labs from today are noted. White count 10, hemoglobin 8, hematocrit 25, platelet count 100. INR is 1.5. PRP noted. The dressing is changed and wound VAC removed. The wound is clean without erythema. There is blood clot at the base. It is 1.5-2 cm wide and 3 cm long. The skin edges are not easily reapproximated. They cannot be reapproximated. Swelling is minimal. He can wiggle his toes. IMPRESSION: Osteomyelitis of the left distal fibula with chronic open wound and inadequate soft tissue coverage. PLAN: His PICC line is placed. Continue intravenous antibiotics. He may eventually need an Infectious Diseases consult if he has not already had one. Recommend continuing Lovenox for DVT prophylaxis. He may need further surgery. Once he is transferred to [facility], I can help arrange follow up with Dr. Torres in Plastic Surgery at [place] as an outpatient. He also has other appointments at [facility] for other health issues. He should be out of bed to chair and is to be nonweightbearing on the left lower extremity. I think we can change the splint to a fracture boot.
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
[2019-10-25] MEDS: MoRPHine SULFATE 2 MG/ML CARP IV PRN ×2 (11:18→14:40)
[2019-10-25] MEDS: ENOXAPARIN 150 MG/ML SYR SQ SCH (18:35)
--- NOTE | 2019-10-25 18:51 | Hospitalist Progress Note ---
Date of Service October 25, 2019 Assessment & Plan (1) Osteomyelitis: - L megan wound with exposed hardware and osteomyelitis - S/P I&D and hardware removal on 10/19 - continued Abx and wound vac placement - Picc Line placed - ID/Wound Care consulted - Orthopedics following - NWB to LLE; note suggests Lovenox (portal vein thrombosis) -- May need plastic surgery with wound closure? This will be done once the acute issue has been taken care of. Patient initally on zosyn, this then transitioned to ceftriaxone for pulmonary coverage. ID recs for continued rocephin, will need ongoing at SNF (2) Rhabdomyolysis: -Traumatic rhabdomyolysis - CK improving - Fall - uncertain of all details or length of time down - last seen by daughter on . Found in the bathroom with the sink pulled off the wall and laying in water and was found initially hypothermic. Daughter states the hot water pipe was leaking water too and it was still warm so didn't think he may have been down too long -- Patient thinks this might have happened on 10/14 but not completely sure - CK 5000 on admission and trending down Has pain related to this fall (3) Bacteremia: Coag neg gram + bacteria, repeat culture was negative. will require 4-6 weeks of IV antibitoics due to osteomyelitis. ID with rocephin recs as above (4) Pneumonia: - Current cough with clear sputum currently; saturating appropriately on RA - CT with suggestion of pneumonia - given leukocytosis, procal, desaturations this is possible - Doxycycline 100 mg BID, Zosyn, and Vanc - broad coverage given possibly superimposed skin issues - Nebs; Tessalon perles PRN (5) Sepsis: - Now with + BCx - gram neg bacill/coag neg staph; UCx prelim but no growth/<1000 colonies- Likely pneumonia vs skin as possible source; leukocytosis, hypoxia (desaturations in the ER from 84-88% during my assessment but not documented on routine vitals), elevated lactic acid, elevated procal, hypotension - this is likely a mixed picture given dehydration/rhabdo - Treatment as above (6) Elevated troponin: - Troponin appears to likely peak at 6.1 and trending down; consistent with type 2 NSTEMI - Echo - EF 60-65%; no regional wall motion abnormalities; mild LVH - Cardiology followed and S/O - appreciate input (7) Acute kidney injury: - Likely pre-renal in the setting of dehydration/rhabdo; Baseline appears < 1 - Currently resolved and will monitor given Abx; avoid nephrotoxins (8) Altered mental status: - Likely in the setting of infection/dehydration - likely metabolic encephalopathy- RESOLVED - Treatment as above (9) COPD (chronic obstructive pulmonary disease): - Associated pulmonary HTN - Does not appear to be in an exacerbation at this time and will monitor - Nebulizers (10) Alcoholic cirrhosis: - Not currently drinking; follows with [facility] - Will continue to monitor for any acute hepatic issues (11) Portal vein thrombosis: - On Coumadin therapy - follows with [facility] - Due to surgery - coumadin held and reverse INR - on lovenox. Continue with lovenox due for likely need of further procedures Disposition: Continue PT/OT - NWB to E; PICC in place Planning for d/c to [facility] once bed is available Subjective Pt with ongoing pain to L ankle surgical site. He has rib and knee pain related to his fall and being on the ground. Swelling is minimal. Tolerating PO. Pt denies fever, SOB, chest pain, abd pain, n/v/c/d. Review of Systems Review of Systems: Pertinent positives and negatives reviewed in HPI--all others negative Physical Exam Constitutional: WD/WN, vitals as above Eyes: normal visual dias by confrontation and + anicteric sclerae Neck: normal visual inspection and trachea midline Respiratory: normal respiratory effort, lungs clear to auscultation Cardiovascular: Rate/Rhythm: regular rate and regular rhythm Gastrointestinal (Abdomen): Inspection/Auscultation: abdomen not distended Percussion/Palpation: abdomen soft; abdomen nontender Musculoskeletal: Head/Neck/Chest: normocephalic and head atraumatic negative for edema, peripheral pulses intact Skin: no rashes, warm and dry Neurologic: awake; not confused Speech / Cognition: normal speech Psychiatric: A+Ox3, euthymic affect Results & Data Vital Signs (Past 12 Hours) Vital Signs Temp Pulse Resp BP Pulse Ox 10/25/19 16:05 36.9 C 83 20 109/60 94 10/25/19 07:27 36.6 C 88 20 136/78 94 PG Care Time/CCT Total # of Minutes Spent Total Time Spent with Patient: Total time spent is greater than 50% in coordination of care (as documented) at patient's floor/unit and/or counseling patient: (1) Rhabdomyolysis Rhabdomyolysis type: non-traumatic Qualified Code(s): M62.82 - Rhabdomyolysis (2) Sepsis Sepsis acute organ dysfunction status: unspecified Sepsis type: sepsis due to unspecified organism Qualified Code(s): A41.9 - Sepsis, unspecified organism (3) Altered mental status Altered mental status type: unspecified Qualified Code(s): R41.82 - Altered mental status, unspecified (4) Alcoholic cirrhosis Ascites presence: unspecified Qualified Code(s): K70.30 - Alcoholic cirrhosis of liver without ascites
[2019-10-25] MEDS: SENNA 8.6 MG TAB PO SCH (21:24)
[2019-10-26] MEDS: CEFAZOLIN 2000MG 2,000 MG/15 ML SYR IV SCH ×2 (00:12→09:14)
[2019-10-26] MEDS: OXYCODONE HCL IR 5 MG TAB (IMMEDIATE RELEASE) PO PRN ×3 (03:40→13:40)
[2019-10-26] MEDS: MUPIROCIN 2% OINT 22 GM TUBE EXT SCH ×2 (09:15→20:37)
[2019-10-26] MEDS: MULTIVITAMIN TAB PO SCH (09:15)
[2019-10-26] MEDS: FAMOTIDINE 20 MG TAB PO SCH ×2 (09:15→20:38)
[2019-10-26] MEDS: PANTOprazole 40 MG TAB PO SCH ×2 (09:15→20:38)
[2019-10-26] MEDS: KETOCONAZOLE 2% CR 15 GM TUBE EXT SCH (09:15)
[2019-10-26] MEDS: DOCUSATE SODIUM 100 MG CAP PO SCH ×2 (09:16→20:38)
[2019-10-26] MEDS: FERROUS SULFATE 325 MG TAB PO SCH (09:17)
[2019-10-26] MEDS ORDERED: MICONAZOLE NITRATE POWDER 43 GM EXT PRN (10:47)
[2019-10-26] MEDS: MoRPHine SULFATE 2 MG/ML CARP IV PRN ×3 (12:07→20:39)
[2019-10-26 13:27] LABS: Hematocrit (blood only) 24.1 % (42-52); Hemoglobin 8.2 g/dL (14.0-18.0); Mean Corpuscular Hemoglobin 35.7 pg (25-34); Mean Corpuscular Volume 104.8 fL (80-100); RDW Coefficient of Variation 18.8 % (11.5-14.5); RDW Standard Deviation 71.7 fL (36.4-46.3); White Blood Count 9.54 K/uL (4.8-10.8)
[2019-10-26 13:28] LABS: Mean Platelet Volume 9.5 fL (7.4-10.4); Platelet Count 94 K/uL (130-400)
[2019-10-26 13:44] LABS: BUN Creatinine Ratio 26.1 (10-20); Calcium 7.7 mg/dl (8.5-10.1); Creatinine Clr Calc Pharmacy 89.9 ml/min; Est GFR (African American) 102.8; Est GFR (Non-African American) 88.7; Magnesium 1.9 mg/dl (1.8-2.4); Potassium 4.9 mmol/L (3.5-5.1)
[2019-10-26 13:45] LABS: Phosphorus 2.8 mg/dl (2.5-4.9)
[2019-10-26 13:52] LABS: Basophils # (auto) 0.02 K/uL (0-0.2); Basophils % (auto) 0.2 %; Echinocytes 1+; Eosinophils % (auto) 3.1 %; Immature Granulocytes # (auto) 0.05 K/uL (0.00-0.02); Immature Granulocytes % (auto) 0.5 %; Lymphocytes # (auto) 0.82 K/uL (1.2-3.4); Lymphocytes % (auto) 8.6 %; Monocytes # (auto) 1.95 K/uL (0.11-0.59); Monocytes % (auto) 20.4 %; Neutrophils % (auto) 67.2 %
[2019-10-26] MEDS ORDERED: cefTRIAXone SODIUM 2,000 MG in DEXTROSE 5% 50 ML IV ONE (14:45)
[2019-10-26] MEDS: ENOXAPARIN 150 MG/ML SYR SQ SCH (18:01)
--- NOTE | 2019-10-26 18:15 | Hospitalist Progress Note ---
Date of Service October 26, 2019 Assessment & Plan (1) Anemia: Hb has been gradually decreasing, likely related to post-op status Currently at 8.2 and stable from yesterday Recheck tomorrow Hemoccult pending (2) Osteomyelitis: - L megan wound with exposed hardware and osteomyelitis - S/P I&D and hardware removal on 10/19 - continued Abx and wound vac placement - Picc Line placed - ID/Wound Care consulted - Orthopedics following - NWB to LLE; note suggests Lovenox (portal vein thrombosis) -- May need plastic surgery with wound closure? This will be done once the acute issue has been taken care of. Patient initally on zosyn, this then transitioned to ceftriaxone for pulmonary coverage. ID recs for continued rocephin, will need ongoing at SNF (3) Rhabdomyolysis: -Traumatic rhabdomyolysis - - Fall - uncertain of all details or length of time down - last seen by daughter on . Found in the bathroom with the sink pulled off the wall and laying in water and was found initially hypothermic. Daughter states the hot water pipe was leaking water too and it was still warm so didn't think he may have been down too long -- Patient thinks this might have happened on 10/14 but not completely sure - CK 5000 on admission and trending down Has pain related to this fall (4) Bacteremia: Coag neg gram + bacteria, repeat culture was negative. will require 4-6 weeks of IV antibitoics due to osteomyelitis. ID with rocephin recs as above (5) Pneumonia: - Current cough with clear sputum currently; saturating appropriately on RA - CT with suggestion of pneumonia - given leukocytosis, procal, desaturations this is possible - Doxycycline 100 mg BID, Zosyn, and Vanc - broad coverage given possibly super imposed skin issues - Nebs; Tessalon perles PRN (6) Sepsis: - Now with + BCx - gram neg bacill/coag neg staph; UCx prelim but no growth/<1000 colonies- Likely pneumonia vs skin as possible source; leukocytosis, hypoxia (desaturations in the ER from 84-88% during my assessment but not documented on routine vitals), elevated lactic acid, elevated procal, hypotension - this is likely a mixed picture given dehydration/rhabdo - Treatment as above (7) Elevated troponin: - Troponin appears to likely peak at 6.1 and trending down; consistent with type 2 NSTEMI - Echo - EF 60-65%; no regional wall motion abnormalities; mild LVH - Cardiology followed and S/O - appreciate input (8) Acute kidney injury: - Likely pre-renal in the setting of dehydration/rhabdo; Baseline appears < 1 - Currently resolved and will monitor given Abx; avoid nephrotoxins (9) Altered mental status: - Likely in the setting of infection/dehydration - likely metabolic encephalopathy- RESOLVED - Treatment as above Some concern for sluggish mentation and drowsiness Hb low but stable, CBC otherwise WNL PRP WNL Discussed amount of pain medication pt is receiving and its role in his current mentation Decrease roxicet if ongoing, pt and family would like to keep pain control at its current level for now (10) COPD (chronic obstructive pulmonary disease): - Associated pulmonary HTN - Does not appear to be in an exacerbation at this time and will monitor - Nebulizers (11) Alcoholic cirrhosis: - Not currently drinking; follows with [facility] - Will continue to monitor for any acute hepatic issues (12) Portal vein thrombosis: - On Coumadin therapy at baseline- follows with [facility] - Due to surgery - coumadin held and reverse INR - on lovenox. Continue with lovenox due for likely need of further procedures Disposition: Continue PT/OT - NWB to [facility]; PICC in place Planning for d/c to [facility] once bed is available Subjective Family concerned about pt with some drowsiness and confusion with SOB with ambulation. Pt with ongoing pain to L ankle surgical site and rib and knee pain related to his fall. Tolerating PO. Pt denies fever, SOB, chest pain, abd pain, n/v/c/d, LE swelling. Nursing reports bowel movements are light brown without any signs of bleeding. Review of Systems Review of Systems: Pertinent positives and negatives reviewed in HPI--all others negative Physical Exam Constitutional: WD/WN, vitals as above Eyes: normal visual dias by confrontation and + anicteric sclerae Neck: normal visual inspection and trachea midline Respiratory: normal respiratory effort, lungs clear to auscultation Cardiovascular: Rate/Rhythm: regular rate and regular rhythm Gastrointestinal (Abdomen): Inspection/Auscultation: abdomen not distended Percussion/Palpation: abdomen soft; abdomen nontender Musculoskeletal: Head/Neck/Chest: normocephalic and head atraumatic Skin: no rashes, warm and dry Neurologic: awake; not confused Speech / Cognition: normal speech Psychiatric: A+Ox3, euthymic affect Results & Data Vital Signs (Past 12 Hours) Vital Signs Temp Pulse Resp BP Pulse Ox 10/26/19 15:28 36.7 C 82 20 118/54 L 95 10/26/19 07:11 36.7 C 78 22 114/56 L 92 PG Care Time/CCT Total # of Minutes Spent Total Time Spent with Patient: Total time spent is greater than 50% in coordination of care (as documented) at patient's floor/unit and/or counseling patient: (1) Rhabdomyolysis Rhabdomyolysis type: non-traumatic Qualified Code(s): M62.82 - Rhabdomyolysis (2) Sepsis Sepsis acute organ dysfunction status: unspecified Sepsis type: sepsis due to unspecified organism Qualified Code(s): A41.9 - Sepsis, unspecified organism (3) Altered mental status Altered mental status type: unspecified Qualified Code(s): R41.82 - Altered mental status, unspecified (4) Alcoholic cirrhosis Ascites presence: unspecified Qualified Code(s): K70.30 - Alcoholic cirrhosis of liver without ascites
[2019-10-26] MEDS: SENNA 8.6 MG TAB PO SCH (20:38)
[2019-10-27 06:06] LABS: Basophils # (auto) 0.02 K/uL (0-0.2); Basophils % (auto) 0.2 %; Eosinophils # (auto) 0.35 K/uL (0-0.5); Eosinophils % (auto) 4.1 %; Hematocrit (blood only) 24.2 % (42-52); Hemoglobin 8.3 g/dL (14.0-18.0); Immature Granulocytes # (auto) 0.05 K/uL (0.00-0.02); Immature Granulocytes % (auto) 0.6 %; Lymphocytes # (auto) 1.03 K/uL (1.2-3.4); Mean Corpuscular Hemoglobin 35.3 pg (25-34); Mean Corpuscular Hgb Conc 34.3 g/dL (32-36); Monocytes % (auto) 18.6 %; Neutrophils # (auto) 5.54 K/uL (1.4-6.5); Neutrophils % (auto) 64.5 %; Platelet Count 105 K/uL (130-400); RDW Coefficient of Variation 18.9 % (11.5-14.5); RDW Standard Deviation 70.5 fL (36.4-46.3); Red Blood Count 2.35 M/uL (4.7-6.1); White Blood Count 8.59 K/uL (4.8-10.8)
[2019-10-27 06:40] LABS: Creatinine Clr Calc Pharmacy 102.9 ml/min; Est GFR (African American) 108.7; Est GFR (Non-African American) 93.7
[2019-10-27] MEDS: DOCUSATE SODIUM 100 MG CAP PO SCH ×2 (07:44→20:54)
[2019-10-27] MEDS: MUPIROCIN 2% OINT 22 GM TUBE EXT SCH ×2 (07:44→20:52)
[2019-10-27] MEDS: cefTRIAXone SODIUM 2,000 MG in DEXTROSE 5% 50 ML IV SCH (07:44)
[2019-10-27] MEDS: OXYCODONE HCL IR 5 MG TAB (IMMEDIATE RELEASE) PO PRN ×2 (07:45→15:11)
[2019-10-27] MEDS: PANTOprazole 40 MG TAB PO SCH ×2 (07:46→20:52)
[2019-10-27] MEDS: MULTIVITAMIN TAB PO SCH (07:46)
[2019-10-27] MEDS: FAMOTIDINE 20 MG TAB PO SCH ×2 (07:46→20:52)
[2019-10-27] MEDS: FERROUS SULFATE 325 MG TAB PO SCH (08:43)
[2019-10-27] MEDS: MoRPHine SULFATE 2 MG/ML CARP IV PRN ×2 (10:47→17:09)
--- NOTE | 2019-10-27 11:45 | Progress Notes ---
DATE: 10/27/2019 Resting comfortably in bed. He has been afebrile and his vital signs are stable. Wound VAC is changed. Consultations obtained with Dr. Stevenson. The wound is 1.5 cm. There is no active bleeding, no purulence or erythema. The remainder of the wound was benign. A new wound VAC is applied. He is in a Cam boot. His labs are noted. White count 8, hemoglobin 8, hematocrit 24, platelet count is 105. PRP noted. He has osteomyelitis of his left distal fibula with an open wound. Dr. Stevenson's assistance is appreciated. PLAN: At this point, is to transfer the patient to [facility] whenever authorization obtained and bed available. He will continue with the wound VAC and intravenous antibiotics through his PICC line. Continue DVT prophylaxis with Lovenox. We will arrange appointment with Dr. Torres at [facility]. We will arrange appointment with Dr. Torres once the patient has been transferred to [facility] for logistical purposes. This will be as an outpatient.
[2019-10-27 12:08] LABS: Albumin Level 1.7 gm/dl (3.4-5.0); Prealbumin 4.1 mg/dl (20-40)
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
--- NOTE | 2019-10-27 16:18 | Hospitalist Progress Note ---
Date of Service October 27, 2019 Assessment & Plan (1) Anemia: Hb has been gradually decreasing, likely related to post-op status Hb with slight increase to 8.3 Hemoccult negative (2) Osteomyelitis: - L megan wound with exposed hardware and osteomyelitis - S/P I&D and hardware removal on 10/19 - continued Abx and wound vac placement - Picc Line placed - ID/Wound Care consulted - Orthopedics following - NWB to LLE; note suggests Lovenox (portal vein thrombosis) -- May need plastic surgery with wound closure? This will be done once the acute issue has been taken care of. Patient initally on zosyn, this then transitioned to ceftriaxone for pulmonary coverage. ID recs for continued rocephin, will need ongoing at SNF (3) Rhabdomyolysis: -Traumatic rhabdomyolysis - - Fall - uncertain of all details or length of time down - last seen by daughter on . Found in the bathroom with the sink pulled off the wall and laying in water and was found initially hypothermic. Daughter states the hot water pipe was leaking water too and it was still warm so didn't think he may have been down too long -- Patient thinks this might have happened on 10/14 but not completely sure - CK 5000 on admission and trending down Has pain related to this fall (4) Bacteremia: Coag neg gram + bacteria, repeat culture was negative. will require 4-6 weeks of IV antibitoics due to osteomyelitis. ID with rocephin recs as above (5) Pneumonia: - Current cough with clear sputum currently; saturating appropriately on RA - CT with suggestion of pneumonia - given leukocytosis, procal, desaturations this is possible - Doxycycline 100 mg BID, Zosyn, and Vanc - broad coverage given possibly superimposed skin issues - Nebs; Tessalon perles PRN (6) Sepsis: - Now with + BCx - gram neg bacill/coag neg staph; UCx prelim but no growth/<1000 colonies- Likely pneumonia vs skin as possible source; leukocytosis, hypoxia (desaturations in the ER from 84-88% during my assessment but not documented on routine vitals), elevated lactic acid, elevated procal, hypotension - this is likely a mixed picture given dehydration/rhabdo - Treatment as above (7) Elevated troponin: - Troponin appears to likely peak at 6.1 and trending down; consistent with type 2 NSTEMI - Echo - EF 60-65%; no regional wall motion abnormalities; mild LVH - Cardiology followed and S/O - appreciate input (8) Acute kidney injury: - Likely pre-renal in the setting of dehydration/rhabdo; Baseline appears < 1 - Currently resolved and will monitor given Abx; avoid nephrotoxins (9) Altered mental status: - Likely in the setting of infection/dehydration - likely metabolic encephalopathy- RESOLVED - Treatment as above Some concern for sluggish mentation and drowsiness Hb low but stable, CBC otherwise WNL PRP WNL Discussed amount of pain medication pt is receiving and its role in his current mentation Decrease roxicet if ongoing, pt and family would like to keep pain control at its current level for now (10) COPD (chronic obstructive pulmonary disease): - Associated pulmonary HTN - Does not appear to be in an exacerbation at this time and will monitor - Nebulizers (11) Alcoholic cirrhosis: - Not currently drinking; follows with [facility] - Will continue to monitor for any acute hepatic issues (12) Portal vein thrombosis: - On Coumadin therapy at baseline- follows with [facility] - Due to surgery - coumadin held and reverse INR - on lovenox. Continue with lovenox due for likely need of further procedures Disposition: Continue PT/OT - NWB to [facility]; PICC in place Planning for d/c to [facility] once auth is complete Subjective Family was not present during my discussion with pt. He has some SOB with ambulation, but not at rest. Pt with ongoing pain to L ankle surgical site and rib and knee pain related to his fall. Tolerating PO. Pt denies fever, chest pain, abd pain, n/v/c/d, LE swelling. Review of Systems Review of Systems: Pertinent positives and negatives reviewed in HPI--all others negative Physical Exam Constitutional: WD/WN, vitals as above Eyes: normal visual dias by confrontation and + anicteric sclerae Neck: normal visual inspection and trachea midline Respiratory: normal respiratory effort, lungs clear to auscultation Cardiovascular: Rate/Rhythm: regular rate and regular rhythm Gastrointestinal (Abdomen): Inspection/Auscultation: abdomen not distended Percussion/Palpation: abdomen soft; abdomen nontender Musculoskeletal: Head/Neck/Chest: normocephalic and head atraumatic Skin: no rashes, warm and dry Neurologic: awake; not confused Speech / Cognition: normal speech Psychiatric: A+Ox3, euthymic affect Results & Data Vital Signs (Past 12 Hours) Vital Signs Temp Pulse Resp BP Pulse Ox 10/27/19 15:23 36.9 C 82 17 99/41 L 95 10/27/19 07:26 36.6 C 79 20 128/56 L 90 PG Care Time/CCT Total # of Minutes Spent Total Time Spent with Patient: Total time spent is greater than 50% in coordination of care (as documented) at patient's floor/unit and/or counseling patient: (1) Osteomyelitis Osteomyelitis type: other acute Osteomyelitis location: fibula (2) Rhabdomyolysis Rhabdomyolysis type: non-traumatic Qualified Code(s): M62.82 - Rhabdomyolysis (3) Sepsis Sepsis acute organ dysfunction status: unspecified Sepsis type: sepsis due to unspecified organism Qualified Code(s): A41.9 - Sepsis, unspecified organism (4) Altered mental status Altered mental status type: unspecified Qualified Code(s): R41.82 - Altered mental status, unspecified (5) Alcoholic cirrhosis Ascites presence: unspecified Qualified Code(s): K70.30 - Alcoholic cirrhosis of liver without ascites
[2019-10-27] MEDS: ENOXAPARIN 150 MG/ML SYR SQ SCH (19:16)
[2019-10-27] MEDS: SENNA 8.6 MG TAB PO SCH (20:54)
[2019-10-28 06:25] LABS: Basophils # (auto) 0.02 K/uL (0-0.2); Basophils % (auto) 0.3 %; Eosinophils # (auto) 0.28 K/uL (0-0.5); Eosinophils % (auto) 3.6 %; Hemoglobin 8.1 g/dL (14.0-18.0); Immature Granulocytes # (auto) 0.03 K/uL (0.00-0.02); Immature Granulocytes % (auto) 0.4 %; Lymphocytes # (auto) 0.94 K/uL (1.2-3.4); Lymphocytes % (auto) 12.1 %; Mean Corpuscular Hemoglobin 34.9 pg (25-34); Mean Corpuscular Hgb Conc 33.8 g/dL (32-36); Mean Corpuscular Volume 103.4 fL (80-100); Mean Platelet Volume 9.5 fL (7.4-10.4); Monocytes # (auto) 1.68 K/uL (0.11-0.59); Monocytes % (auto) 21.5 %; Neutrophils # (auto) 4.85 K/uL (1.4-6.5); Neutrophils % (auto) 62.1 %; Platelet Count 107 K/uL (130-400); RDW Coefficient of Variation 18.8 % (11.5-14.5); RDW Standard Deviation 70.6 fL (36.4-46.3); Red Blood Count 2.32 M/uL (4.7-6.1)
[2019-10-28] MEDS: MULTIVITAMIN TAB PO SCH (08:06)
[2019-10-28] MEDS: FERROUS SULFATE 325 MG TAB PO SCH (08:06)
[2019-10-28] MEDS: FAMOTIDINE 20 MG TAB PO SCH ×2 (08:06→21:33)
[2019-10-28] MEDS: PANTOprazole 40 MG TAB PO SCH ×2 (08:06→21:33)
[2019-10-28] MEDS: DOCUSATE SODIUM 100 MG CAP PO SCH ×2 (08:07→21:34)
[2019-10-28] MEDS: MUPIROCIN 2% OINT 22 GM TUBE EXT SCH ×2 (08:13→21:33)
[2019-10-28] MEDS: cefTRIAXone SODIUM 2,000 MG in DEXTROSE 5% 50 ML IV SCH (08:13)
[2019-10-28 09:54] LABS: INR 1.3 (0.9-1.1); Prothrombin Time 13.5 Seconds (9.0-12.0)
[2019-10-28 10:14] LABS: BUN Creatinine Ratio 27.7 (10-20); Calcium 7.9 mg/dl (8.5-10.1); Creatinine Clr Calc Pharmacy 97.8 ml/min; Est GFR (African American) 106.4; Est GFR (Non-African American) 91.8; Potassium 4.7 mmol/L (3.5-5.1)
[2019-10-28 10:21] LABS: Ferritin 93.5 ng/ml (8-388)
--- NOTE | 2019-10-28 10:46 | Hospitalist Progress Note ---
Date of Service October 28, 2019 Assessment & Plan (1) Osteomyelitis: Left ankle wound with exposed hardware at time of admission. biopsy-confirmed and culture-confirmed osteomyelitis of distal fibula. Culture with MSSA. Another culture w/ clostridium. S/P I&D and hardware removal on 10/19. Remains on rocephin 2gm daily via RUE PICC. NWB to LLE. CAM boot remains. Orthopedics and Dr Stevenson from plastics recommends follow-up with a Dr Torres at [facility] for plastics consultation. May need special flap procedure to close the wound. This will need to be set up shortly after d/c. Continue wound vac in meantime. Consider arterial duplex study of left leg to ensure adequate blood flow for optimal wound healing. (2) Anemia: Multifactorial - advanced cirrhosis, some acute blood loss anemia, etc. B12/folate wnl. TSH wnl. Iron studies most c/w anemia of chronic disease. Would not transfuse at this time. Monitor. (3) Rhabdomyolysis: Traumatic rhabdomyolysis - 2nd to fall at home with prolonged time on floor prior to admission. CK 5000 on admission Last CK was nearly normal (4) Bacteremia: Coag neg staph in 1 set, and moraxella species from the 2nd set -- at time of admission. Repeat blood cx's were negative. Since he had multiple pathogens in various bottles uncertain of clinical significance of these. (5) Pneumonia: possible/suspected aspiration due to altered mental status, laying on floor at home, etc? either way has completed full course of IV abx to cover for pneumonia (6) Sepsis: likely 2nd to left ankle osteomyelitis sepsis resolved see discussion above Re: positive blood cx's at admission (7) Elevated troponin: Troponin peaked at 6.1 and trended downward Seen by cardiology - likely myocardial demand ischemia in setting of sepsis, fall, etc NOT an ACS/thrombotic event ECHO: EF 60-65%; no regional wall motion abnormalities; mild LVH no ischemic symptoms at this time (8) Acute kidney injury: Peak Cr 1.8 now <0.9 sepsis-associated ATN / acute kidney injury resolved (9) Altered mental status: metabolic encephalopathy- RESOLVED likely was due to sepsis ammonia earlier this admission was 25 (10) COPD (chronic obstructive pulmonary disease): controlled (11) Alcoholic cirrhosis: decompensated is at least 7-8kg of weight overloaded hyponatremia is likely due to fluid weight gain follows with [facility] if BPs are stable overnight then resume inderal - perhaps at lower dose to start for fluid overload give lasix BID today IV if he tolerates this and has good response then continue IV lasix tomorrow (12) Portal vein thrombosis: On Coumadin therapy at baseline- follows with Anticoagulation clinic at [facility] warfarin stopped in yamileth of lovenox there was concern about needing additional surgeries for left ankle thus lovenox continued would leave lovenox as is for now (13) Hyponatremia: this is likely due to volume overload from decompensated cirrhosis. he has considerable abd ascites and LE edema on exam. he is up a considerable amount of weight. gave Lasix IV this am with good UOP from such. I then rechecked BMP later in day and Na had risen from 129 to 133. This argues that hyponatremia is due to cirrhosis and volume issues. repeat lasix this evening. then BMP am and consider additional lasix then (14) DVT prophylaxis: remains on lovenox 1.5mg/kg/day for PVT and DVT proph daughter extensively updated by phone on 10/28/19 questions answered social work aware of plan Subjective patient c/o left ankle pain. he also c/o swelling in legs and abdomen. appetite is fair. feels tired. denies dyspnea or orthopnea. he inquires about his chronic diuretics. Review of Systems Constitutional: no fever Respiratory: no cough Cardiovascular: no chest pain Gastrointestinal: no abdominal pain, no nausea and no vomiting Physical Exam Constitutional: + frail appearing; no acute distress, no altered mental status and + not well groomed ENMT: Mouth: + poor dentition; oral mucous membranes not dry Respiratory: normal respiratory effort, lungs clear to auscultation Auscultation: + diminished lung sounds (bases) Cardiovascular: Rate/Rhythm: regular rate and regular rhythm Heart Sounds: normal S1 and normal S2 Vessels: posterior tibial pulses present, dorsalis pedis pulses present and ulnar pulses present; no JVD Extremities: + edema (2-3+ b/l legs) Gastrointestinal (Abdomen): Inspection/Auscultation: + abdomen distended (w/ ascites ) Percussion/Palpation: abdomen nontender, no guarding and no hepatosplenomegaly Skin: drain in place to left ankle; CAM boot in place on left Psychiatric: A+Ox3, euthymic affect Results & Data Vital Signs (Past 12 Hours) Vital Signs Temp Pulse Resp BP Pulse Ox 10/28/19 07:16 37.0 C 83 18 135/65 94 10/28/19 00:00 37.0 C 84 20 126/61 93 Laboratory Results Laboratory Results - last 24 hr 10/28/19 10/28/19 10/28/19 05:50 09:16 09:16 WBC 7.80 RBC 2.32 L Hgb 8.1 L Hct 24.0 L MCV 103.4 H MCH 34.9 H MCHC 33.8 RDW Std Deviation 70.6 H RDW Coeff of Ramses 18.8 H Plt Count 107 L MPV 9.5 Immature Gran % (Auto) 0.4 Neut % (Auto) 62.1 Lymph % (Auto) 12.1 Daniels % (Auto) 21.5 Eos % (Auto) 3.6 Baso % (Auto) 0.3 Immature Gran # (Auto) 0.03 H Neut # (Auto) 4.85 Lymph # (Auto) 0.94 L Daniels # (Auto) 1.68 H Eos # (Auto) 0.28 Baso # (Auto) 0.02 PT 13.5 H INR 1.3 H Sodium 129 L Potassium 4.7 Chloride 104 Carbon Dioxide 23 Anion Gap 2.0 L BUN 22 H Creatinine 0.80 Est Cr Clr Drug Dosing 97.8 Est GFR ( Amer) 106.4 Est GFR (Non-Af Amer) 91.8 BUN/Creatinine Ratio 27.7 H Glucose 108 H Osmolality Calcium 7.9 L Iron 120 Transferrin 177 L Transferrin % Sat 48 Ferritin 93.5 Vitamin B12 25-OH Vitamin D Total Folate 10/28/19 10/28/19 10/28/19 09:16 09:16 12:13 WBC RBC Hgb Hct MCV MCH MCHC RDW Std Deviation RDW Coeff of Ramses Plt Count MPV Immature Gran % (Auto) Neut % (Auto) Lymph % (Auto) Daniels % (Auto) Eos % (Auto) Baso % (Auto) Immature Gran # (Auto) Neut # (Auto) Lymph # (Auto) Daniels # (Auto) Eos # (Auto) Baso # (Auto) PT INR Sodium Potassium Chloride Carbon Dioxide Anion Gap BUN Creatinine Est Cr Clr Drug Dosing Est GFR ( Amer) Est GFR (Non-Af Amer) BUN/Creatinine Ratio Glucose Osmolality Calcium Iron Transferrin Transferrin % Sat Ferritin Vitamin B12 Cancelled 866 25-OH Vitamin D Total 21.7 L Folate Cancelled 10.55 10/28/19 10/28/19 17:16 17:16 WBC RBC Hgb Hct MCV MCH MCHC RDW Std Deviation RDW Coeff of Ramses Plt Count MPV Immature Gran % (Auto) Neut % (Auto) Lymph % (Auto) Daniels % (Auto) Eos % (Auto) Baso % (Auto) Immature Gran # (Auto) Neut # (Auto) Lymph # (Auto) Daniels # (Auto) Eos # (Auto) Baso # (Auto) PT INR Sodium 133 L Potassium 4.7 Chloride 104 Carbon Dioxide 26 Anion Gap 3.0 BUN 23 H Creatinine 0.88 Est Cr Clr Drug Dosing 87.9 Est GFR ( Amer) 102.3 Est GFR (Non-Af Amer) 88.3 BUN/Creatinine Ratio 26.2 H Glucose 111 H Osmolality 281 Calcium 7.6 L Iron Transferrin Transferrin % Sat Ferritin Vitamin B12 25-OH Vitamin D Total Folate PG Care Time/CCT Total # of Minutes Spent Total Time Spent with Patient: Total time spent is greater than 50% in coordination of care (as documented) at patient's floor/unit and/or counseling patient: (1) Alcoholic cirrhosis Ascites presence: unspecified Qualified Code(s): K70.30 - Alcoholic cirrhosis of liver without ascites (2) Rhabdomyolysis Rhabdomyolysis type: non-traumatic Qualified Code(s): M62.82 - Rhabdomyolysis (3) Sepsis Sepsis acute organ dysfunction status: unspecified Sepsis type: sepsis due to unspecified organism Qualified Code(s): A41.9 - Sepsis, unspecified organism (4) Altered mental status Altered mental status type: unspecified Qualified Code(s): R41.82 - Altered mental status, unspecified (5) Osteomyelitis Osteomyelitis location: fibula Osteomyelitis type: other acute
[2019-10-28] MEDS ORDERED: FUROSEMIDE 20 MG in SYRINGE 0 ML IV ONE ×2 (11:15→18:30)
[2019-10-28 13:08] LABS: Folate (Folic Acid) 10.55 ng/ml (>5.38)
[2019-10-28] MEDS: OXYCODONE HCL IR 5 MG TAB (IMMEDIATE RELEASE) PO PRN ×2 (14:22→19:49)
[2019-10-28 17:58] LABS: Est GFR (African American) 102.3; Est GFR (Non-African American) 88.3; Potassium 4.7 mmol/L (3.5-5.1)
[2019-10-28 17:59] LABS: BUN Creatinine Ratio 26.2 (10-20); Calcium 7.6 mg/dl (8.5-10.1); Creatinine Clr Calc Pharmacy 87.9 ml/min
[2019-10-28] MEDS: CHOLECALCIFEROL 1,000 UNITS 25 MCG TAB PO SCH (18:23)
[2019-10-28] MEDS: ENOXAPARIN 150 MG/ML SYR SQ SCH (18:24)
[2019-10-28] MEDS: SENNA 8.6 MG TAB PO SCH (21:34)
[2019-10-29] MEDS: OXYCODONE HCL IR 5 MG TAB (IMMEDIATE RELEASE) PO PRN ×4 (04:25→21:29)
[2019-10-29 06:01] LABS: Basophils # (auto) 0.04 K/uL (0-0.2); Basophils % (auto) 0.5 %; Eosinophils # (auto) 0.35 K/uL (0-0.5); Eosinophils % (auto) 4.1 %; Hematocrit (blood only) 22.4 % (42-52); Hemoglobin 7.7 g/dL (14.0-18.0); Immature Granulocytes # (auto) 0.03 K/uL (0.00-0.02); Immature Granulocytes % (auto) 0.4 %; Lymphocytes # (auto) 1.15 K/uL (1.2-3.4); Lymphocytes % (auto) 13.5 %; Mean Corpuscular Hemoglobin 35.8 pg (25-34); Mean Corpuscular Hgb Conc 34.4 g/dL (32-36); Mean Corpuscular Volume 104.2 fL (80-100); Monocytes # (auto) 2.08 K/uL (0.11-0.59); Monocytes % (auto) 24.4 %; Neutrophils # (auto) 4.87 K/uL (1.4-6.5); Neutrophils % (auto) 57.1 %; Platelet Count 117 K/uL (130-400); RDW Coefficient of Variation 18.6 % (11.5-14.5); RDW Standard Deviation 70.6 fL (36.4-46.3); Red Blood Count 2.15 M/uL (4.7-6.1); White Blood Count 8.52 K/uL (4.8-10.8)
[2019-10-29 06:27] LABS: RBC Morphology Unremarkable
[2019-10-29 06:39] LABS: BUN Creatinine Ratio 24.9 (10-20); Calcium 7.7 mg/dl (8.5-10.1); Creatinine Clr Calc Pharmacy 87.6 ml/min; Est GFR (African American) 101.8; Est GFR (Non-African American) 87.9; Potassium 4.2 mmol/L (3.5-5.1)
[2019-10-29] MEDS: cefTRIAXone SODIUM 2,000 MG in DEXTROSE 5% 50 ML IV SCH (08:33)
[2019-10-29] MEDS: FERROUS SULFATE 325 MG TAB PO SCH ×2 (08:39→19:52)
[2019-10-29] MEDS: PANTOprazole 40 MG TAB PO SCH ×2 (08:39→20:02)
[2019-10-29] MEDS: MULTIVITAMIN TAB PO SCH (08:39)
[2019-10-29] MEDS: CHOLECALCIFEROL 1,000 UNITS 25 MCG TAB PO SCH (08:39)
[2019-10-29] MEDS: DOCUSATE SODIUM 100 MG CAP PO SCH ×2 (08:39→20:04)
[2019-10-29] MEDS: MUPIROCIN 2% OINT 22 GM TUBE EXT SCH ×2 (08:39→21:13)
[2019-10-29] MEDS ORDERED: FUROSEMIDE 40 MG in SYRINGE 0 ML IV ONE ×2 (09:15→16:00)
[2019-10-29] MEDS: FAMOTIDINE 20 MG TAB PO SCH ×2 (09:50→20:02)
--- NOTE | 2019-10-29 17:05 | XRay Report ---
XR ribs BI min 4V w CXR1V CLINICAL HISTORY: Bilateral rib pain status post trauma COMPARISON STUDY: Chest x-ray dated 10/19/2019 FINDINGS: The erect chest reveals a right-sided PICC catheter. There is no pneumothorax. There is no lobar consolidation. There is partial resection of the right fifth rib. There is a chronic posterior right sixth rib deformity. There is a nondisplaced fracture of the right sixth rib anterolaterally. T here are acute fractures of the left sixth, seventh and eighth ribs. IMPRESSION: 1. No evidence of pneumothorax 2. Acute fracture the right sixth rib anterolaterally 3. Acute fractures of the left sixth, seventh, and eighth ribs anterolaterally ACT 112: Negative or not required by law. Electronically signed by: Kenny Botello M.D. 10/29/2019 5:03 PM
--- NOTE | 2019-10-29 18:02 | Hospitalist Progress Note ---
Date of Service October 29, 2019 Assessment & Plan (1) Alcoholic cirrhosis: severely decompensated started back diuretics on 10/28 -- gave IV then will give 2 doses of IV lasix today again recheck labs in am on 10/30 and redose IV lasix then hyponatremia was likely due to fluid weight gain this improved with diuresis follows with [facility] if GI consultation is needed at any time if BPs are stable overnight then resume inderal on 10/30 - perhaps at lower dose to start (10mg BID) if he continues to have abd pain consider diagnostic paracentesis to r/o SBP although it is unlikely as he has been on IV antibiotics this entire stay (2) Osteomyelitis: Left ankle wound with exposed hardware at time of admission. biopsy-confirmed and culture-confirmed osteomyelitis of distal fibula. Culture with MSSA. Another culture w/ clostridium. S/P I&D and hardware removal on 10/19. Remains on rocephin 2gm daily via RUE PICC. 6-week course?? NWB to LLE. CAM boot remains. Orthopedics and Dr Stevenson from plastics recommends follow-up with a Dr Torres at [facility] for plastics consultation. May need special flap procedure to close the wound. This will need to be set up shortly after d/c. On exam appears to have intact vascular supply with good pulses and cap refill although could consider arterial duplex study of left leg to ensure adequate blood flow for optimal wound healing. Wound vac removed today by wound care team. By report has had oozing of blood from wound in setting of therapeutic lovenox use - see below in "Portal vein thrombosis." Spoke with Dr Hathaway - we discussed the oozing, need for ongoing IV abx, and need for f/u with Dr Torres in [facility]. Appt with Dr Torres at [facility] -- 11/16/2019 (see discharge instructions). Cont pain control. Optimize nutrition. (3) Ribs, multiple fractures: b/l rib series today - IMPRESSION: 1. No evidence of pneumothorax 2. Acute fracture the right sixth rib anterolaterally 3. Acute fractures of the left sixth, seventh, and eighth ribs anterolaterally fractures were due to trauma from fall prior to admission pain control will order K-pad voltaren gel qid (4) Anemia: Multifactorial - advanced cirrhosis, acute blood loss anemia from left LE wound, etc. B12/folate wnl. TSH wnl. Iron studies most c/w anemia of chronic disease but likely some element of iron loss. Increase Fe to BID dosing. Recheck CBC in am. Trying to hold off on PRBCs for now due to significant fluid overloaded state, stable vitals, no hemodynamic compromise, etc. With that said would Tx if Hb falls to <7.5. (5) Rhabdomyolysis: Traumatic rhabdomyolysis - 2nd to fall at home with prolonged time on floor prior to admission. CK 5000 on admission Last CK was nearly normal (6) Bacteremia: Coag neg staph in 1 set, and moraxella species from the 2nd set -- at time of admission. Repeat blood cx's were negative. Since he had multiple pathogens in various bottles uncertain of clinical significance of these. Either way doing well with no fevers, stable vitals, etc. (7) Pneumonia: possible/suspected aspiration due to altered mental status, laying on floor at home, etc? either way has completed full course of IV abx to cover for pneumonia (8) Sepsis: likely 2nd to left ankle osteomyelitis sepsis resolved see discussion above Re: positive blood cx's at admission (9) Elevated troponin: Troponin peaked at 6.1 and trended downward Seen by cardiology - likely myocardial demand ischemia in setting of sepsis, fall, etc NOT an ACS/thrombotic event ECHO: EF 60-65%; no regional wall motion abnormalities; mild LVH no ischemic symptoms at this time (10) Acute kidney injury: Peak Cr 1.8 now <0.9 sepsis-associated ATN / acute kidney injury -- resolved (11) Altered mental status: metabolic encephalopathy- RESOLVED likely was due to sepsis ammonia earlier this admission was 25 patient fully awake, alert, oriented x 3 today (12) COPD (chronic obstructive pulmonary disease): controlled (13) Portal vein thrombosis: Completed nearly 6 months of Coumadin therapy. Was followed with Anticoagulation clinic at [facility] - Dr Nam. warfarin stopped in yamileth of lovenox this admission - is on full-strength, therapeutic lovenox 140mg daily there was concern about needing additional surgeries for left ankle thus lovenox continued in yamileth of the coumadin spoke with Dr Hathaway - he was concerned about ongoing oozing of blood from ankle I then spoke with Dr Nam -- since he completed nearly 6 months of anticoagulation can STOP the full-strength lovenox and simply give 40mg daily for DVT proph purposes this should help oozing (14) Hyponatremia: this is likely due to volume overload from decompensated cirrhosis. much improved - now 134 repeat BMP in am (15) DVT prophylaxis: lovenox 40mg daily daughter extensively updated by phone on 10/28/19 likely needs to stay the weekend for ongoing wound surveillance, diuresis, following CBC and need for transfusion cont IV abx in meantime to [place] on Friday? Subjective patient has multiple complaints - 1. b/l rib pain, lower costal margin; he did not mention it yesterday but states "it's been there starting a couple of days after I got here". Movement makes the pain worse. Hurts to take large breaths. Staying still makes it better. 2. scrotal edema - severe. Hurts to move the genitals. No testicular pain. 3. mild DIEGO / moving in bed. No cough. 4. left ankle pain. Wound vac removed by wound care team; to observe off the wound vac this weekend. Spoke with Dr Nam and Dr Hathaway re: care plan. Review of Systems Constitutional: no fever and no chills Respiratory: no cough and no wheezing Cardiovascular: as per Subjective / HPI, + chest pain, + dyspnea on exertion and + orthopnea Gastrointestinal: + abdominal pain (b/l flanks ) Genitourinary: + scrotal swelling Physical Exam Constitutional: + frail appearing; no acute distress, no altered mental status and + not well groomed a/o x 3 today ENMT: Mouth: + poor dentition; oral mucous membranes not dry Respiratory: normal respiratory effort, lungs clear to auscultation Auscultation: + diminished lung sounds (bases) Cardiovascular: Rate/Rhythm: regular rate and regular rhythm Heart Sounds: normal S1 and normal S2 Vessels: posterior tibial pulses present, dorsalis pedis pulses present and ulnar pulses present; no JVD Extremities: normal capillary refill (left foot ) and + edema (2-3+ b/l legs) Chest (Breasts): Additional Comments: tender to palpation b/l lower costal margin Gastrointestinal (Abdomen): Inspection/Auscultation: + abdomen distended (w/ ascites ) and + visible herniation (umbilical - reducible ) Percussion/Palpation: + abdomen tender (flanks - there is severe body wall edema over these 2 regions ); no guarding and no hepatosplenomegaly Musculoskeletal: CAM boot in place; boot opened to be able to check pulses & cap refill - both normal. wound vac has been removed today. Psychiatric: A+Ox3, euthymic affect Genitourinary: scrotal edema - severe. penile implant present left side of scrotum. I could not palpate the testicles because of swelling. Minimal erythema of scrotal skin but no necrotizing fascitis. Results & Data Vital Signs (Past 12 Hours) Vital Signs Temp Pulse Pulse Resp BP Pulse Ox 10/29/19 17:20 112/54 L 10/29/19 15:03 37.0 C 90 18 110/54 L 95 10/29/19 07:30 36.6 C 88 18 160/62 H 92 Laboratory Results Laboratory Results - last 24 hr 10/29/19 10/29/19 05:20 05:20 WBC 8.52 RBC 2.15 L Hgb 7.7 L Hct 22.4 L MCV 104.2 H MCH 35.8 H MCHC 34.4 RDW Std Deviation 70.6 H RDW Coeff of Ramses 18.6 H Plt Count 117 L MPV 10.0 Immature Gran % (Auto) 0.4 Neut % (Auto) 57.1 Lymph % (Auto) 13.5 Tift % (Auto) 24.4 Eos % (Auto) 4.1 Baso % (Auto) 0.5 Immature Gran # (Auto) 0.03 H Neut # (Auto) 4.87 Lymph # (Auto) 1.15 L Tift # (Auto) 2.08 H Eos # (Auto) 0.35 Baso # (Auto) 0.04 RBC Morphology Unremarkable Sodium 134 L Potassium 4.2 Chloride 103 Carbon Dioxide 26 Anion Gap 5.0 BUN 22 H Creatinine 0.89 Est Cr Clr Drug Dosing 87.6 Est GFR ( Amer) 101.8 Est GFR (Non-Af Amer) 87.9 BUN/Creatinine Ratio 24.9 H Glucose 89 Calcium 7.7 L PG Care Time/CCT Total # of Minutes Spent Total Time Spent with Patient: Total time spent is greater than 50% in coordination of care (as documented) at patient's floor/unit and/or counseling patient: (1) Ribs, multiple fractures Encounter type: initial encounter Fracture type: closed Laterality: bilateral Qualified Code(s): S22.43XA - Multiple fractures of ribs, bilateral, initial encounter for closed fracture (2) Anemia Anemia type: other cause Other causes of anemia: other cause, not classified Qualified Code(s): D64.89 - Other specified anemias (3) Alcoholic cirrhosis Ascites presence: unspecified Qualified Code(s): K70.30 - Alcoholic cirrhosis of liver without ascites (4) Rhabdomyolysis Rhabdomyolysis type: non-traumatic Qualified Code(s): M62.82 - Rhabdomyolysis (5) Sepsis Sepsis acute organ dysfunction status: unspecified Sepsis type: sepsis due to unspecified organism Qualified Code(s): A41.9 - Sepsis, unspecified organism (6) Altered mental status Altered mental status type: unspecified Qualified Code(s): R41.82 - Altered mental status, unspecified (7) COPD (chronic obstructive pulmonary disease) COPD type: unspecified COPD Qualified Code(s): J44.9 - Chronic obstructive pulmonary disease, unspecified (8) Pneumonia Aspiration pneumonia type: unspecified Laterality: unspecified laterality Lung location: unspecified part of lung Pneumonia type: aspiration pneumonia Qualified Code(s): J69.0 - Pneumonitis due to inhalation of food and vomit (9) Osteomyelitis Laterality: left Osteomyelitis location: fibula Osteomyelitis type: other acute Qualified Code(s): M86.162 - Other acute osteomyelitis, left tibia and fibula
[2019-10-29] MEDS: ENOXAPARIN INJ 40 MG/0.4 ML SYR SQ SCH (19:53)
[2019-10-29] MEDS: SENNA 8.6 MG TAB PO SCH (20:03)
[2019-10-29] MEDS: DICLOFENAC SOD 1% GEL 100 GM TUBE EXT SCH (21:12)
[2019-10-30] MEDS: OXYCODONE HCL IR 5 MG TAB (IMMEDIATE RELEASE) PO PRN ×3 (05:39→14:09)
[2019-10-30 06:13] LABS: Basophils # (auto) 0.03 K/uL (0-0.2); Basophils % (auto) 0.5 %; Eosinophils # (auto) 0.28 K/uL (0-0.5); Eosinophils % (auto) 4.3 %; Hematocrit (blood only) 22.3 % (42-52); Hemoglobin 7.6 g/dL (14.0-18.0); Immature Granulocytes # (auto) 0.01 K/uL (0.00-0.02); Immature Granulocytes % (auto) 0.2 %; Lymphocytes # (auto) 1.23 K/uL (1.2-3.4); Lymphocytes % (auto) 18.8 %; Mean Corpuscular Hemoglobin 35.7 pg (25-34); Mean Corpuscular Hgb Conc 34.1 g/dL (32-36); Mean Corpuscular Volume 104.7 fL (80-100); Mean Platelet Volume 10.1 fL (7.4-10.4); Monocytes # (auto) 1.26 K/uL (0.11-0.59); Monocytes % (auto) 19.3 %; Neutrophils # (auto) 3.73 K/uL (1.4-6.5); Neutrophils % (auto) 56.9 %; Platelet Count 115 K/uL (130-400); RDW Coefficient of Variation 18.9 % (11.5-14.5); RDW Standard Deviation 71.2 fL (36.4-46.3); Red Blood Count 2.13 M/uL (4.7-6.1); White Blood Count 6.54 K/uL (4.8-10.8)
[2019-10-30 06:34] LABS: RBC Morphology Unremarkable
[2019-10-30 06:43] LABS: BUN Creatinine Ratio 27.2 (10-20); Calcium 7.6 mg/dl (8.5-10.1); Creatinine Clr Calc Pharmacy 81.6 ml/min; Est GFR (African American) 94.9; Est GFR (Non-African American) 81.9; Magnesium 1.7 mg/dl (1.8-2.4); Potassium 4.2 mmol/L (3.5-5.1)
[2019-10-30] MEDS: ENOXAPARIN INJ 40 MG/0.4 ML SYR SQ SCH (08:55)
[2019-10-30] MEDS: PANTOprazole 40 MG TAB PO SCH ×2 (08:55→20:35)
[2019-10-30] MEDS: MULTIVITAMIN TAB PO SCH (08:55)
[2019-10-30] MEDS: CHOLECALCIFEROL 1,000 UNITS 25 MCG TAB PO SCH (08:56)
[2019-10-30] MEDS: FAMOTIDINE 20 MG TAB PO SCH ×2 (08:57→20:35)
[2019-10-30] MEDS: MUPIROCIN 2% OINT 22 GM TUBE EXT SCH ×2 (08:58→20:33)
[2019-10-30] MEDS: FERROUS SULFATE 325 MG TAB PO SCH ×2 (08:58→17:37)
[2019-10-30] MEDS: DICLOFENAC SOD 1% GEL 100 GM TUBE EXT SCH ×4 (08:59→20:35)
[2019-10-30] MEDS: cefTRIAXone SODIUM 2,000 MG in DEXTROSE 5% 50 ML IV SCH (08:59)
[2019-10-30] MEDS: DOCUSATE SODIUM 100 MG CAP PO SCH ×2 (09:01→20:38)
--- NOTE | 2019-10-30 15:19 | Hospitalist Progress Note ---
Date of Service October 30, 2019 Assessment & Plan (1) Alcoholic cirrhosis: severely decompensated started back diuretics on 10/28 -- gave IV then will give 2 doses of IV lasix today again recheck labs in am on 10/30 and redose IV lasix then hyponatremia was likely due to fluid weight gain this improved with diuresis follows with [facility] if GI consultation is needed at any time if BPs are stable overnight then resume inderal on 10/30 - perhaps at lower dose to start (10mg BID) if he continues to have abd pain consider diagnostic paracentesis to r/o SBP although it is unlikely as he has been on IV antibiotics this entire stay (2) Osteomyelitis: Left ankle wound with exposed hardware at time of admission. biopsy-confirmed and culture-confirmed osteomyelitis of distal fibula. Culture with MSSA. Another culture w/ clostridium. S/P I&D and hardware removal on 10/19. Remains on rocephin 2gm daily via RUE PICC. 6-week course?? NWB to LLE. CAM boot remains. Orthopedics and Dr Stevenson from plastics recommends follow-up with a Dr Torres at [facility] for plastics consultation. May need special flap procedure to close the wound. This will need to be set up shortly after d/c. On exam appears to have intact vascular supply with good pulses and cap refill although could consider arterial duplex study of left leg to ensure adequate blood flow for optimal wound healing. Wound vac removed today by wound care team. By report has had oozing of blood from wound in setting of therapeutic lovenox use - see below in "Portal vein thrombosis." Spoke with Dr Hathaway - we discussed the oozing, need for ongoing IV abx, and need for f/u with Dr Torres in [facility]. Appt with Dr Torres at [facility] -- 11/16/2019 (see discharge instructions). Cont pain control. Optimize nutrition. (3) Ribs, multiple fractures: b/l rib series today - IMPRESSION: 1. No evidence of pneumothorax 2. Acute fracture the right sixth rib anterolaterally 3. Acute fractures of the left sixth, seventh, and eighth ribs anterolaterally fractures were due to trauma from fall prior to admission pain control will order K-pad voltaren gel qid (4) Anemia: Multifactorial - advanced cirrhosis, acute blood loss anemia from left LE wound, etc. B12/folate wnl. TSH wnl. Iron studies most c/w anemia of chronic disease but likely some element of iron loss. Increase Fe to BID dosing. Recheck CBC in am. Trying to hold off on PRBCs for now due to significant fluid overloaded state, stable vitals, no hemodynamic compromise, etc. With that said would Tx if Hb falls to <7.5. (5) Rhabdomyolysis: Traumatic rhabdomyolysis - 2nd to fall at home with prolonged time on floor prior to admission. CK 5000 on admission Last CK was nearly normal (6) Bacteremia: Coag neg staph in 1 set, and moraxella species from the 2nd set -- at time of admission. Repeat blood cx's were negative. Since he had multiple pathogens in various bottles uncertain of clinical significance of these. Either way doing well with no fevers, stable vitals, etc. (7) Pneumonia: possible/suspected aspiration due to altered mental status, laying on floor at home, etc? either way has completed full course of IV abx to cover for pneumonia (8) Sepsis: likely 2nd to left ankle osteomyelitis sepsis resolved see discussion above Re: positive blood cx's at admission (9) Elevated troponin: Troponin peaked at 6.1 and trended downward Seen by cardiology - likely myocardial demand ischemia in setting of sepsis, fall, etc NOT an ACS/thrombotic event ECHO: EF 60-65%; no regional wall motion abnormalities; mild LVH no ischemic symptoms at this time (10) Acute kidney injury: Peak Cr 1.8 now <0.9 sepsis-associated ATN / acute kidney injury -- resolved (11) Altered mental status: metabolic encephalopathy- RESOLVED likely was due to sepsis ammonia earlier this admission was 25 patient fully awake, alert, oriented x 3 today (12) COPD (chronic obstructive pulmonary disease): controlled (13) Portal vein thrombosis: Completed nearly 6 months of Coumadin therapy. Was followed with Anticoagulation clinic at [facility] - Dr Nam. warfarin stopped in yamileth of lovenox this admission - is on full-strength, therapeutic lovenox 140mg daily there was concern about needing additional surgeries for left ankle thus lovenox continued in yamileth of the coumadin spoke with Dr Hathaway - he was concerned about ongoing oozing of blood from ankle I then spoke with Dr Nam -- since he completed nearly 6 months of anticoagulation can STOP the full-strength lovenox and simply give 40mg daily for DVT proph purposes this should help oozing (14) Hyponatremia: this is likely due to volume overload from decompensated cirrhosis. much improved - now 134 repeat BMP in am (15) DVT prophylaxis: lovenox 40mg daily daughter extensively updated by phone on 10/28/19 likely needs to stay the weekend for ongoing wound surveillance, diuresis, following CBC and need for transfusion cont IV abx in meantime Disposition to to [facility] hopefully on Friday Subjective Seen and examined at the bedside. Alert and oriented sitting up in the chair and having breakfast. Patient is complaining of b/l rib pain, lower costal margin; he did not mention it yesterday but states "it's been there starting a couple of days after I got here". scrotal edema - severe. Hurts to move the genitals. No testicular pain. Afebrile. Continue wound VAC. Good appetite. Review of Systems Review of Systems: All systems reviewed & are unremarkable except as noted in HPI & below Physical Exam Constitutional: WD/WN, vitals as above + frail appearing; no acute distress, no altered mental status and + not well groomed Eyes: normal visual dias by confrontation and + anicteric sclerae ENMT: Ears: no hearing impairment Mouth: + poor dentition; oral mucous membranes not dry Neck: normal visual inspection and trachea midline Respiratory: normal respiratory effort, lungs clear to auscultation normal respiratory effort and + cough Auscultation: + diminished lung sounds (bases) Cardiovascular: Rate/Rhythm: regular rate and regular rhythm Heart Sounds: normal S1 and normal S2; no murmur Vessels: posterior tibial pulses present, dorsalis pedis pulses present and ulnar pulses present; no JVD Extremities: normal capillary refill (left foot ) and + edema (2-3+ b/l legs) Gastrointestinal (Abdomen): Inspection/Auscultation: + abdomen distended (w/ ascites ), normal bowel sounds and + visible herniation (umbilical - reducible ) Percussion/Palpation: + abdomen tender (flanks - there is severe body wall edema over these 2 regions ) and abdomen soft; no guarding, abdomen not rigid and no hepatosplenomegaly Musculoskeletal: Head/Neck/Chest: normocephalic and head atraumatic Skin: no rashes, warm and dry Neurologic: moves all extremities and awake; not confused Speech / Cognition: normal speech Psychiatric: A+Ox3, euthymic affect Orientation: alert Results & Data Vital Signs (Past 12 Hours) Vital Signs Temp Pulse Resp BP Pulse Ox 10/30/19 15:09 36.5 C 79 16 96/46 L 95 10/30/19 08:45 92 H 126/57 L 10/30/19 07:01 36.6 C 80 16 104/43 L 92 PG Care Time/CCT Total # of Minutes Spent Total Time Spent with Patient: Total time spent is greater than 50% in coordination of care (as documented) at patient's floor/unit and/or counseling patient: (1) Ribs, multiple fractures Encounter type: initial encounter Fracture type: closed Laterality: bilateral Qualified Code(s): S22.43XA - Multiple fractures of ribs, bilateral, initial encounter for closed fracture (2) Anemia Anemia type: other cause Other causes of anemia: other cause, not classified Qualified Code(s): D64.89 - Other specified anemias (3) Alcoholic cirrhosis Ascites presence: unspecified Qualified Code(s): K70.30 - Alcoholic cirrhosis of liver without ascites (4) Rhabdomyolysis Rhabdomyolysis type: non-traumatic Qualified Code(s): M62.82 - Rhabdomyolysis (5) Sepsis Sepsis acute organ dysfunction status: unspecified Sepsis type: sepsis due to unspecified organism Qualified Code(s): A41.9 - Sepsis, unspecified organism (6) Altered mental status Altered mental status type: unspecified Qualified Code(s): R41.82 - Altered mental status, unspecified (7) COPD (chronic obstructive pulmonary disease) COPD type: unspecified COPD Qualified Code(s): J44.9 - Chronic obstructive pulmonary disease, unspecified (8) Pneumonia Aspiration pneumonia type: unspecified Laterality: unspecified laterality Lung location: unspecified part of lung Pneumonia type: aspiration pneumonia Qualified Code(s): J69.0 - Pneumonitis due to inhalation of food and vomit (9) Osteomyelitis Laterality: left Osteomyelitis location: fibula Osteomyelitis type: other acute Qualified Code(s): M86.162 - Other acute osteomyelitis, left tibia and fibula
[2019-10-30] MEDS ORDERED: MAGNESIUM SULFATE / D5W 1 GM/100 ML BAG IV ONE (15:45)
[2019-10-30] MEDS: ALBUMIN 25% 50 ML IV SCH (17:37)
[2019-10-30] MEDS: FUROSEMIDE 40 MG in SYRINGE 0 ML IV SCH (20:34)
[2019-10-30] MEDS: SENNA 8.6 MG TAB PO SCH (20:35)
[2019-10-31 05:50] LABS: Basophils # (auto) 0.02 K/uL (0-0.2); Basophils % (auto) 0.3 %; Eosinophils % (auto) 4.4 %; Hematocrit (blood only) 21.9 % (42-52); Hemoglobin 7.2 g/dL (14.0-18.0); Immature Granulocytes # (auto) 0.01 K/uL (0.00-0.02); Immature Granulocytes % (auto) 0.1 %; Lymphocytes # (auto) 0.71 K/uL (1.2-3.4); Lymphocytes % (auto) 10.5 %; Mean Corpuscular Hemoglobin 34.3 pg (25-34); Mean Corpuscular Hgb Conc 32.9 g/dL (32-36); Mean Corpuscular Volume 104.3 fL (80-100); Mean Platelet Volume 9.8 fL (7.4-10.4); Monocytes # (auto) 1.24 K/uL (0.11-0.59); Monocytes % (auto) 18.3 %; Neutrophils % (auto) 66.4 %; Platelet Count 102 K/uL (130-400); RDW Coefficient of Variation 18.7 % (11.5-14.5); RDW Standard Deviation 70.8 fL (36.4-46.3); White Blood Count 6.78 K/uL (4.8-10.8)
[2019-10-31 06:13] LABS: RBC Morphology Unremarkable
[2019-10-31 06:17] LABS: Albumin Level 1.7 gm/dl (3.4-5.0); BUN Creatinine Ratio 24.9 (10-20); Calcium 7.7 mg/dl (8.5-10.1); Est GFR (African American) 69.5; Est GFR (Non-African American) 59.9; Potassium 4.2 mmol/L (3.5-5.1)
[2019-10-31 06:20] LABS: Albumin Globulin Ratio 0.5 (0.9-2); Bilirubin,Total 1.8 mg/dl (0.2-1); Globulin 3.6 gm/dl (2.5-4.0); Total Protein 5.3 gm/dl (6.4-8.2)
[2019-10-31] MEDS: PANTOprazole 40 MG TAB PO SCH ×2 (09:07→20:15)
[2019-10-31] MEDS: MULTIVITAMIN TAB PO SCH (09:07)
[2019-10-31] MEDS: FAMOTIDINE 20 MG TAB PO SCH ×2 (09:07→20:15)
[2019-10-31] MEDS: DOCUSATE SODIUM 100 MG CAP PO SCH ×2 (09:07→20:15)
[2019-10-31] MEDS: CHOLECALCIFEROL 1,000 UNITS 25 MCG TAB PO SCH (09:07)
[2019-10-31] MEDS: FERROUS SULFATE 325 MG TAB PO SCH ×2 (09:08→17:45)
[2019-10-31] MEDS: ENOXAPARIN INJ 40 MG/0.4 ML SYR SQ SCH (09:10)
[2019-10-31] MEDS: FUROSEMIDE 40 MG in SYRINGE 0 ML IV SCH ×2 (09:10→20:15)
[2019-10-31] MEDS: DICLOFENAC SOD 1% GEL 100 GM TUBE EXT SCH ×4 (09:11→20:16)
[2019-10-31] MEDS: MUPIROCIN 2% OINT 22 GM TUBE EXT SCH ×2 (09:12→16:32)
[2019-10-31] MEDS: ALBUMIN 25% 50 ML IV SCH (09:33)
[2019-10-31] MEDS: cefTRIAXone SODIUM 2,000 MG in DEXTROSE 5% 50 ML IV SCH (10:26)
[2019-10-31] MEDS ORDERED: SODIUM CHLORIDE 0.9% 250 ML IV PRN (18:56)
--- NOTE | 2019-10-31 18:57 | Hospitalist Progress Note ---
Date of Service October 31, 2019 Assessment & Plan (1) Alcoholic cirrhosis: severely decompensated started back diuretics on 10/28 -- gave IV then will give 2 doses of IV lasix today again recheck labs in am on 10/30 and redose IV lasix then hyponatremia was likely due to fluid weight gain this improved with diuresis follows with [facility] if GI consultation is needed at any time if BPs are stable overnight then resume inderal on 10/30 - perhaps at lower dose to start (10mg BID) if he continues to have abd pain consider diagnostic paracentesis to r/o SBP although it is unlikely as he has been on IV antibiotics this entire stay (2) Osteomyelitis: Left ankle wound with exposed hardware at time of admission. biopsy-confirmed and culture-confirmed osteomyelitis of distal fibula. Culture with MSSA. Another culture w/ clostridium. S/P I&D and hardware removal on 10/19. Remains on rocephin 2gm daily via RUE PICC. 6-week course?? NWB to LLE. CAM boot remains. Orthopedics and Dr Stevenson from plastics recommends follow-up with a Dr Torres at [facility] for plastics consultation. May need special flap procedure to close the wound. This will need to be set up shortly after d/c. On exam appears to have intact vascular supply with good pulses and cap refill although could consider arterial duplex study of left leg to ensure adequate blood flow for optimal wound healing. Wound vac removed today by wound care team. By report has had oozing of blood from wound in setting of therapeutic lovenox use - see below in "Portal vein thrombosis." Spoke with Dr Hathaway - we discussed the oozing, need for ongoing IV abx, and need for f/u with Dr Torres in [facility]. Appt with Dr Torres at [facility] -- 11/16/2019 (see discharge instructions). Cont pain control. Optimize nutrition. (3) Ribs, multiple fractures: b/l rib series today - IMPRESSION: 1. No evidence of pneumothorax 2. Acute fracture the right sixth rib anterolaterally 3. Acute fractures of the left sixth, seventh, and eighth ribs anterolaterally fractures were due to trauma from fall prior to admission pain control will order K-pad voltaren gel qid (4) Anemia: Multifactorial - advanced cirrhosis, acute blood loss anemia from left LE wound, etc. Fecal occult blood positive. Stop Lovenox DVT prophylaxis. Will give 1 unit of PRBCs. Consult GI for positive fecal occult blood. B12/folate wnl. TSH wnl. Iron studies most c/w anemia of chronic disease but likely some element of iron loss. Increase Fe to BID dosing. Recheck CBC in am. Trying to hold off on PRBCs for now due to significant fluid overloaded state, stable vitals, no hemodynamic compromise, etc. With that said would Tx if Hb falls to <7.5. (5) Rhabdomyolysis: Traumatic rhabdomyolysis - 2nd to fall at home with prolonged time on floor prior to admission. CK 5000 on admission Last CK was nearly normal (6) Bacteremia: Coag neg staph in 1 set, and moraxella species from the 2nd set -- at time of admission. Repeat blood cx's were negative. Since he had multiple pathogens in various bottles uncertain of clinical significance of these. Either way doing well with no fevers, stable vitals, etc. (7) Pneumonia: possible/suspected aspiration due to altered mental status, laying on floor at home, etc? either way has completed full course of IV abx to cover for pneumonia (8) Sepsis: likely 2nd to left ankle osteomyelitis sepsis resolved see discussion above Re: positive blood cx's at admission (9) Elevated troponin: Troponin peaked at 6.1 and trended downward Seen by cardiology - likely myocardial demand ischemia in setting of sepsis, fall, etc NOT an ACS/thrombotic event ECHO: EF 60-65%; no regional wall motion abnormalities; mild LVH no ischemic symptoms at this time (10) Acute kidney injury: Peak Cr 1.8 now <0.9 sepsis-associated ATN / acute kidney injury -- resolved (11) Altered mental status: metabolic encephalopathy- RESOLVED likely was due to sepsis ammonia earlier this admission was 25 patient fully awake, alert, oriented x 3 today (12) COPD (chronic obstructive pulmonary disease): controlled (13) Portal vein thrombosis: Completed nearly 6 months of Coumadin therapy. Was followed with Anticoagulation clinic at [facility] - Dr Nam. warfarin stopped in yamileth of lovenox this admission. there was concern about needing additional surgeries for left ankle thus lovenox continued in yamileth of the coumadin spoke with Dr Hathaway - he was concerned about ongoing oozing of blood from ankle I then spoke with Dr Nam -- since he completed nearly 6 months of anticoagulation can STOP the full-strength lovenox and simply give 40mg daily for DVT proph purposes this should help oozing We had to stop Lovenox because patient started to have positive fecal occult blood. We will consult GI. DVT prophylaxis SCDs. (14) Hyponatremia: this is likely due to volume overload from decompensated cirrhosis. much improved - now 133 repeat BMP in am (15) DVT prophylaxis: lovenox 40mg DVT prophylaxis since patient has positive fecal occult blood. For DVT prophylaxis we will use SCDs. We will transfuse patient with 1 unit of blood because his H&H dropped to 7.2 and 21.9. Recheck CBC posttransfusion. daughter extensively updated by phone on 10/28/19 likely needs to stay the weekend for ongoing wound surveillance, diuresis, following CBC and need for transfusion cont IV abx in meantime Disposition to to [facility] hopefully on Friday Subjective Pt seen and examined at the bedside. Alert and oriented sitting up in the chair and having breakfast. Fecal occult blood positive. Stopped DVT prophylaxis with Lovenox and heparin flushes since patient H&H is slowly decreasing. This morning H&H 7.2/21.9. Patient does not have any complaint today.Afebrile. Continue wound VAC. Good appetite. Review of Systems Review of Systems: All systems reviewed & are unremarkable except as noted in HPI & below Physical Exam Constitutional: WD/WN, vitals as above + frail appearing; no acute distress, no altered mental status and + not well groomed Eyes: normal visual dias by confrontation and + anicteric sclerae ENMT: Ears: no hearing impairment Mouth: + poor dentition; oral mucous membranes not dry Neck: normal visual inspection and trachea midline Respiratory: normal respiratory effort, lungs clear to auscultation normal respiratory effort and + cough Auscultation: + diminished lung sounds (bases) Cardiovascular: Rate/Rhythm: regular rate and regular rhythm Heart Sounds: normal S1 and normal S2; no murmur Vessels: posterior tibial pulses present, dorsalis pedis pulses present and ulnar pulses present; no JVD Extremities: normal capillary refill (left foot ) and + edema (2-3+ b/l legs) Gastrointestinal (Abdomen): Inspection/Auscultation: + abdomen distended (w/ ascites ), normal bowel sounds and + visible herniation (umbilical - reducible ) Percussion/Palpation: + abdomen tender (flanks - there is severe body wall edema over these 2 regions ) and abdomen soft; no guarding, abdomen not rigid and no hepatosplenomegaly Musculoskeletal: Head/Neck/Chest: normocephalic and head atraumatic Skin: no rashes, warm and dry Neurologic: moves all extremities and awake; not confused Speech / Cognition: normal speech Psychiatric: A+Ox3, euthymic affect Orientation: alert Results & Data Vital Signs (Past 12 Hours) Vital Signs Temp Pulse Pulse Pulse Resp BP Pulse Ox 10/31/19 15:11 36.5 C 78 16 101/54 L 95 10/31/19 10:33 36.6 C 80 16 107/57 L 94 10/31/19 09:24 36.6 C 84 16 111/52 L 93 10/31/19 08:00 36.7 C 84 18 112/55 L 91 PG Care Time/CCT Total # of Minutes Spent Total Time Spent with Patient: Total time spent is greater than 50% in coordination of care (as documented) at patient's floor/unit and/or counseling patient: (1) Alcoholic cirrhosis Ascites presence: unspecified Qualified Code(s): K70.30 - Alcoholic cirrhosis of liver without ascites (2) Osteomyelitis Osteomyelitis type: other acute Osteomyelitis location: fibula Laterality: left Qualified Code(s): M86.162 - Other acute osteomyelitis, left tibia and fibula (3) Ribs, multiple fractures Encounter type: initial encounter Fracture type: closed Laterality: serg ateral Qualified Code(s): S22.43XA - Multiple fractures of ribs, bilateral, initial encounter for closed fracture (4) Anemia Anemia type: other cause Other causes of anemia: other cause, not classified Qualified Code(s): D64.89 - Other specified anemias (5) Rhabdomyolysis Rhabdomyolysis type: non-traumatic Qualified Code(s): M62.82 - Rhabdomyolysis (6) Pneumonia Pneumonia type: aspiration pneumonia Aspiration pneumonia type: unspecified Laterality: unspecified laterality Lung location: unspecified part of lung Qualified Code(s): J69.0 - Pneumonitis due to inhalation of food and vomit (7) Sepsis Sepsis acute organ dysfunction status: unspecified Sepsis type: sepsis due to unspecified organism Qualified Code(s): A41.9 - Sepsis, unspecified organism (8) Altered mental status Altered mental status type: unspecified Qualified Code(s): R41.82 - Altered mental status, unspecified (9) COPD (chronic obstructive pulmonary disease) COPD type: unspecified COPD Qualified Code(s): J44.9 - Chronic obstructive pulmonary disease, unspecified
[2019-10-31] MEDS: SENNA 8.6 MG TAB PO SCH (20:15)
[2019-11-01] MEDS: OXYCODONE HCL IR 5 MG TAB (IMMEDIATE RELEASE) PO PRN ×2 (02:22→20:15)
[2019-11-01 06:24] LABS: Basophils # (auto) 0.03 K/uL (0-0.2); Basophils % (auto) 0.5 %; Eosinophils % (auto) 4.9 %; Hemoglobin 8.1 g/dL (14.0-18.0); Immature Granulocytes # (auto) 0.01 K/uL (0.00-0.02); Immature Granulocytes % (auto) 0.2 %; Lymphocytes # (auto) 0.86 K/uL (1.2-3.4); Lymphocytes % (auto) 14.2 %; Mean Corpuscular Hemoglobin 34.5 pg (25-34); Mean Corpuscular Hgb Conc 33.8 g/dL (32-36); Mean Corpuscular Volume 102.1 fL (80-100); Mean Platelet Volume 10.1 fL (7.4-10.4); Monocytes # (auto) 1.07 K/uL (0.11-0.59); Monocytes % (auto) 17.6 %; Neutrophils % (auto) 62.6 %; Platelet Count 105 K/uL (130-400); RDW Coefficient of Variation 20.7 % (11.5-14.5); RDW Standard Deviation 76.8 fL (36.4-46.3); Red Blood Count 2.35 M/uL (4.7-6.1); White Blood Count 6.07 K/uL (4.8-10.8)
[2019-11-01 06:50] LABS: Anisocytosis Present
[2019-11-01 07:03] LABS: Albumin Level 1.8 gm/dl (3.4-5.0); BUN Creatinine Ratio 25.4 (10-20); Calcium 7.8 mg/dl (8.5-10.1); Creatinine Clr Calc Pharmacy 55.2 ml/min; Est GFR (African American) 58.9; Est GFR (Non-African American) 50.8; Potassium 4.1 mmol/L (3.5-5.1)
[2019-11-01 07:06] LABS: Albumin Globulin Ratio 0.5 (0.9-2); Globulin 3.7 gm/dl (2.5-4.0); Total Protein 5.5 gm/dl (6.4-8.2)
[2019-11-01] MEDS: CHOLECALCIFEROL 1,000 UNITS 25 MCG TAB PO SCH (09:09)
[2019-11-01] MEDS: MULTIVITAMIN TAB PO SCH (09:09)
[2019-11-01] MEDS: PANTOprazole 40 MG TAB PO SCH ×2 (09:09→20:16)
[2019-11-01] MEDS: FERROUS SULFATE 325 MG TAB PO SCH ×2 (09:10→17:58)
[2019-11-01] MEDS: FAMOTIDINE 20 MG TAB PO SCH ×2 (09:10→20:17)
[2019-11-01] MEDS: DOCUSATE SODIUM 100 MG CAP PO SCH ×2 (09:12→20:20)
[2019-11-01] MEDS: cefTRIAXone SODIUM 2,000 MG in DEXTROSE 5% 50 ML IV SCH (09:20)
[2019-11-01] MEDS: FUROSEMIDE 40 MG in SYRINGE 0 ML IV SCH ×2 (09:20→20:16)
[2019-11-01] MEDS: DICLOFENAC SOD 1% GEL 100 GM TUBE EXT SCH ×4 (09:24→20:19)
[2019-11-01] MEDS: ALBUMIN 25% 50 ML IV SCH (10:19)
[2019-11-01] MEDS: MUPIROCIN 2% OINT 22 GM TUBE EXT SCH ×2 (10:19→20:13)
--- NOTE | 2019-11-01 10:34 | Progress Notes ---
DATE: 11/01/2019 Due to increased drainage late last week, the wound VAC was removed. I had spoke with Dr. Rodriguez about reducing the Lovenox. Fortunately, they were able to discontinue the therapeutic dosage and changed to a prophylactic dosage. There is also a goal to diurese. He got a unit of blood over the weekend. His hematocrit is 24, platelet count is 105. He has been afebrile. His vital signs are stable. Both lower extremities have increased swelling compared to previous. 1-2+ edema. The dressing is removed and there is mild oozing from the surgical incision. He has some bruising proximally. Distally, there is some evidence of granulation tissue, but there remains some exposed bone and the wound is open about 1.5 cm wide and 2 cm long over the distal fibula. He can wiggle the toes and flex and extend the ankle and has 1+ dorsalis pedis pulse. Met and spoke with Catrina Rmasay, the wound care nurse. We will plan on reapplying the wound VAC. We will monitor for drainage. Continue IV antibiotics. Address nutritional status. A dietitian consult had been placed. Elevate the leg and diurese to remove excessive fluid. We will continue to monitor. Continue Lovenox for DVT prophylaxis. The ultimate goal was to get him an appointment at [facility] and plastic surgery. If his medical condition is stable and if he gets transferred to a half-way facility, we can do it from there. If his hospitalization is going to be extended, then we will need to reevaluate that plan.
[2019-11-01] MEDS ORDERED: POLYETHYLENE (MIRALAX) 17 GM PACK PO PRN (10:58)
[2019-11-01] MEDS ORDERED: DOCUSATE SODIUM/SENNA 50/8.6MG TAB PO SCH (11:00)
[2019-11-01 11:33] LABS: Estimated Average Glucose 80 mg/dl; Hemoglobin A1C 4.4 % (4.5-5.6)
[2019-11-01] MEDS: MAGNESIUM OXIDE 400 MG TAB PO SCH ×2 (12:59→20:17)
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
--- NOTE | 2019-11-01 18:14 | Hospitalist Progress Note ---
Date of Service November 01, 2019 Assessment & Plan (1) Alcoholic cirrhosis: Severely decompensated started back diuretics on 10/28 -- gave IV then Appreciate Renal rec:e will continue closely clinically monitor, continued use of loop diuretics to encourage slightly negative fluid balance. hyponatremia was likely due to fluid weight gain this improved with diuresis-chronic follows with [facility] if GI consultation is needed at any time (2) Osteomyelitis: Left ankle wound with exposed hardware at time of admission. biopsy-confirmed and culture-confirmed osteomyelitis of distal fibula. Culture with MSSA. Another culture w/ clostridium. S/P I&D and hardware removal on 10/19. Remains on rocephin 2gm daily via RUE PICC. 6-week course?? NWB to LLE. CAM boot remains. Orthopedics and Dr Stevenson from plastics recommends follow-up with a Dr Torres at [facility] for plastics consultation. May need special flap procedure to close the wound. This will need to be set up shortly after d/c. On exam appears to have intact vascular supply with good pulses and cap refill although could consider arterial duplex study of left leg to ensure adequate blood flow for optimal wound healing. Wound vac removed today by wound care team. By report has had oozing of blood from wound in setting of therapeutic lovenox use - see below in "Portal vein thrombosis." Spoke with Dr Hathaway - we discussed the oozing, need for ongoing IV abx, and need for f/u with Dr Torres in [facility]. Appt with Dr Torres at [facility] -- 11/16/2019 (see discharge instructions). Cont pain control. Optimize nutrition. (3) Ribs, multiple fractures: b/l rib series today - IMPRESSION: 1. No evidence of pneumothorax 2. Acute fracture the right sixth rib anterolaterally 3. Acute fractures of the left sixth, seventh, and eighth ribs anterolaterally fractures were due to trauma from fall prior to admission pain control will order K-pad voltaren gel qid (4) Anemia: Multifactorial - advanced cirrhosis, acute blood loss anemia from left LE wound, etc. Fecal occult blood positive. Stop Lovenox for DVT prophylaxis. Given 1 unit of PRBCs, H/H stable now. Consulted GI for positive fecal occult blood-no intervention necessary at this time. B12/folate wnl. TSH wnl. Iron studies most c/w anemia of chronic disease but likely some element of iron loss. Increase Fe to BID dosing. Monitor H/H (5) Rhabdomyolysis: Traumatic rhabdomyolysis - 2nd to fall at home with prolonged time on floor prior to admission. CK 5000 on admission Last CK was nearly normal (6) Bacteremia: Coag neg staph in 1 set, and moraxella species from the 2nd set -- at time of admission. Repeat blood cx's were negative. Since he had multiple pathogens in various bottles uncertain of clinical significance of these. Either way doing well with no fevers, stable vitals, etc. (7) Pneumonia: possible/suspected aspiration due to altered mental status, laying on floor at home, etc? either way has completed full course of IV abx to cover for pneumonia (8) Sepsis: likely 2nd to left ankle osteomyelitis sepsis resolved see discussion above Re: positive blood cx's at admission (9) Elevated troponin: Troponin peaked at 6.1 and trended downward Seen by cardiology - likely myocardial demand ischemia in setting of sepsis, fall, etc NOT an ACS/thrombotic event ECHO: EF 60-65%; no regional wall motion abnormalities; mild LVH no ischemic symptoms at this time (10) Acute kidney injury: sepsis-associated ATN / acute kidney injury -- resolved (11) Altered mental status: Due to metabolic encephalopathy- RESOLVED patient fully awake, alert, oriented x 3 (12) COPD (chronic obstructive pulmonary disease): controlled (13) Portal vein thrombosis: Completed nearly 6 months of Coumadin therapy. Was followed with Anticoagulation clinic at [facility] - Dr Nam. warfarin stopped in yamileth of lovenox this admission. there was concern about needing additional surgeries for left ankle thus lovenox continued in yamileth of the coumadin spoke with Dr Hathaway - he was concerned about ongoing oozing of blood from ankle I then spoke with Dr Nam -- since he completed nearly 6 months of anticoagulation can STOP the full-strength lovenox and simply give 40mg daily for DVT proph purposes this should help oozing We had to stop Lovenox because patient started to have positive fecal occult blood. We will consult GI. DVT prophylaxis SCDs. (14) Hyponatremia: this is likely due to volume overload from decompensated cirrhosis. much improved - now 133 repeat BMP in am (15) DVT prophylaxis: lovenox 40mg DVT prophylaxis since patient has positive fecal occult blood. For DVT prophylaxis we will use SCDs. We will transfuse patient with 1 unit of blood because his H&H dropped to 7.2 and 21.9. Recheck CBC posttransfusion. daughter extensively updated by phone on 10/28/19 likely needs to stay the weekend for ongoing wound surveillance, diuresis, following CBC and need for transfusion cont IV abx in meantime Disposition to to [facility] hopefully this week Subjective Pt seen and examined at the bedside. Alert and oriented sitting up in the chair and having breakfast.H/H stable. Patient does not have any complaint today.Afebrile. Continue wound VAC. Good appetite. Review of Systems Review of Systems: All systems reviewed & are unremarkable except as noted in HPI & below Physical Exam Constitutional: WD/WN, vitals as above + frail appearing; no acute distress, no altered mental status and + not well groomed Eyes: normal visual dias by confrontation and + anicteric sclerae ENMT: Ears: no hearing impairment Mouth: + poor dentition; oral mucous membranes not dry Neck: normal visual inspection and trachea midline Respiratory: normal respiratory effort, lungs clear to auscultation normal respiratory effort; no cough Auscultation: + diminished lung sounds (bases) Cardiovascular: Rate/Rhythm: regular rate and regular rhythm Heart Sounds: normal S1 and normal S2; no murmur Vessels: posterior tibial pulses present, dorsalis pedis pulses present and ulnar pulses present; no JVD Extremities: normal capillary refill (left foot ) and + edema (2-3+ b/l legs) Gastrointestinal (Abdomen): Inspection/Auscultation: + abdomen distended (w/ ascites ), normal bowel sounds and + visible herniation (umbilical - reducible ) Percussion/Palpation: + abdomen tender (flanks - there is severe body wall edema over these 2 regions ) and abdomen soft; no guarding, abdomen not rigid and no hepatosplenomegaly Musculoskeletal: Head/Neck/Chest: normocephalic and head atraumatic Skin: no rashes, warm and dry Neurologic: moves all extremities and awake; not confused Speech / Cognition: normal speech Psychiatric: A+Ox3, euthymic affect Orientation: alert Results & Data Vital Signs (Past 12 Hours) Vital Signs Temp Pulse Pulse Resp BP Pulse Ox 11/01/19 15:11 36.7 C 79 18 110/54 L 94 01/13/20 07:51 36.9 C 82 15 130/60 93 PG Care Time/CCT Total # of Minutes Spent Total Time Spent with Patient: Total time spent is greater than 50% in coordination of care (as documented) at patient's floor/unit and/or counseling patient: (1) Ribs, multiple fractures Encounter type: initial encounter Fracture type: closed Laterality: bilateral Qualified Code(s): S22.43XA - Multiple fractures of ribs, bilateral, initial encounter for closed fracture (2) Anemia Anemia type: other cause Other causes of anemia: other cause, not classified Qualified Code(s): D64.89 - Other specified anemias (3) Alcoholic cirrhosis Ascites presence: unspecified Qualified Code(s): K70.30 - Alcoholic cirrhosis of liver without ascites (4) Rhabdomyolysis Rhabdomyolysis type: non-traumatic Qualified Code(s): M62.82 - Rhabdomyolysis (5) Sepsis Sepsis acute organ dysfunction status: unspecified Sepsis type: sepsis due to unspecified organism Qualified Code(s): A41.9 - Sepsis, unspecified organism (6) Altered mental status Altered mental status type: unspecified Qualified Code(s): R41.82 - Altered mental status, unspecified (7) COPD (chronic obstructive pulmonary disease) COPD type: unspecified COPD Qualified Code(s): J44.9 - Chronic obstructive pulmonary disease, unspecified (8) Pneumonia Aspiration pneumonia type: unspecified Laterality: unspecified laterality Lung location: unspecified part of lung Pneumonia type: aspiration pneumonia Qualified Code(s): J69.0 - Pneumonitis due to inhalation of food and vomit (9) Osteomyelitis Laterality: left Osteomyelitis location: fibula Osteomyelitis type: other acute Qualified Code(s): M86.162 - Other acute osteomyelitis, left tibia and fibula
[2019-11-01] MEDS: SENNA 8.6 MG TAB PO SCH (20:18)
[2019-11-02] MEDS: OXYCODONE HCL IR 5 MG TAB (IMMEDIATE RELEASE) PO PRN (02:58)
[2019-11-02 03:23] LABS: Appearance Urine Turbid (Clear); Bilirubin Urine 1+ (Negative); Blood Urine 3+ (Negative); Color Urine Dark Yellow; Glucose Urine UA Negative (Negative); Ketones Urine Negative (Negative); Leukocyte Esterase Urine 2+ (Negative); Nitrite Urine Negative (Negative); Protein Urine Trace (Negative); RBC Urine Automated >30 /hpf (0-4); Specific Gravity Urine 1.017 (1.000-1.030); Urobilinogen Urine Negative (Negative)
[2019-11-02 03:24] LABS: Ictotest Urine Positive (Negative)
[2019-11-02 03:42] LABS: Mucus Urine Present (None Prsent)
[2019-11-02 03:43] LABS: Bacteria Urine Automated 1+ (Negative)
[2019-11-02 06:08] LABS: Basophils # (auto) 0.02 K/uL (0-0.2); Basophils % (auto) 0.3 %; Eosinophils # (auto) 0.33 K/uL (0-0.5); Eosinophils % (auto) 5.2 %; Hematocrit (blood only) 23.1 % (42-52); Immature Granulocytes # (auto) 0.02 K/uL (0.00-0.02); Immature Granulocytes % (auto) 0.3 %; Lymphocytes # (auto) 1.14 K/uL (1.2-3.4); Mean Corpuscular Hemoglobin 35.7 pg (25-34); Mean Corpuscular Hgb Conc 34.6 g/dL (32-36); Mean Corpuscular Volume 103.1 fL (80-100); Monocytes # (auto) 1.25 K/uL (0.11-0.59); Monocytes % (auto) 19.8 %; Neutrophils # (auto) 3.56 K/uL (1.4-6.5); Neutrophils % (auto) 56.4 %; Platelet Count 107 K/uL (130-400); RDW Coefficient of Variation 20.6 % (11.5-14.5); RDW Standard Deviation 76.7 fL (36.4-46.3); Red Blood Count 2.24 M/uL (4.7-6.1); White Blood Count 6.32 K/uL (4.8-10.8)
[2019-11-02 06:16] LABS: INR 1.4 (0.9-1.1)
[2019-11-02 06:29] LABS: Anisocytosis Present; Macrocytosis Present; Polychromasia 1+
[2019-11-02 06:46] LABS: Albumin Level 1.8 gm/dl (3.4-5.0); BUN Creatinine Ratio 25.5 (10-20); Calcium 7.7 mg/dl (8.5-10.1); Creatinine Clr Calc Pharmacy 48.1 ml/min; Est GFR (African American) 49.8; Potassium 4.2 mmol/L (3.5-5.1)
[2019-11-02 06:49] LABS: Albumin Globulin Ratio 0.5 (0.9-2); Bilirubin,Total 1.8 mg/dl (0.2-1); Globulin 3.6 gm/dl (2.5-4.0); Total Protein 5.4 gm/dl (6.4-8.2)
[2019-11-02] MEDS: FERROUS SULFATE 325 MG TAB PO SCH ×2 (07:54→17:59)
[2019-11-02] MEDS: FUROSEMIDE 40 MG in SYRINGE 0 ML IV SCH ×2 (07:54→22:10)
[2019-11-02] MEDS: MUPIROCIN 2% OINT 22 GM TUBE EXT SCH ×2 (07:54→22:10)
[2019-11-02] MEDS: MAGNESIUM OXIDE 400 MG TAB PO SCH ×2 (07:54→22:10)
[2019-11-02] MEDS: PANTOprazole 40 MG TAB PO SCH ×2 (07:54→22:11)
[2019-11-02] MEDS: FAMOTIDINE 20 MG TAB PO SCH ×2 (07:54→22:11)
[2019-11-02] MEDS: CHOLECALCIFEROL 1,000 UNITS 25 MCG TAB PO SCH (07:54)
[2019-11-02] MEDS: MULTIVITAMIN TAB PO SCH (07:54)
[2019-11-02] MEDS: DOCUSATE SODIUM 100 MG CAP PO SCH ×2 (07:55→22:10)
[2019-11-02] MEDS: cefTRIAXone SODIUM 2,000 MG in DEXTROSE 5% 50 ML IV SCH (07:59)
[2019-11-02] MEDS: DICLOFENAC SOD 1% GEL 100 GM TUBE EXT SCH ×4 (09:32→22:12)
[2019-11-02] MEDS: ALBUMIN 25% 50 ML IV SCH ×2 (12:37→19:04)
--- NOTE | 2019-11-02 15:37 | Gastroenterology Progress Note ---
Date of Service November 02, 2019 Assessment & Plan (1) Heme positive stool: Continue PPI bid. NO signs of active bleeding. Discussed with DR Navarro can try restarting Lovenox at DVT dosing. anemia--stable today. Feel drop was explained by several days of oozing blood from wound. PV thrombosis--would stop the full dose anticoagulation for this. ascites/lower extermitiy edema--pt being diuresed and Cr is worsening. Renal saw patient to help with management. Consider large volume paracentesis if diuretics continue to be an issue. Subjective cc f/u anemia, heme pos stool HPI--Pt denies abd pain. NO stools today per his report. He can tolerate po but states does not like the food. Review of Systems Respiratory: + dyspnea on and off Cardiovascular: no chest pain Physical Exam Constitutional: WD/WN, vitals as above Cardiovascular: bilateral edema Gastrointestinal (Abdomen): pos bs, distended abdomen but not tense, no guarding nor rebound Psychiatric: A+Ox3, euthymic affect Results & Data Vital Signs (Past 12 Hours) Vital Signs Temp Pulse Pulse Resp BP Pulse Ox 11/02/19 15:14 36.6 C 74 18 109/39 L 95 11/02/19 07:15 36.6 C 74 16 116/60 90
--- NOTE | 2019-11-02 15:52 | Orthopedic Progress Note ---
Date of Service November 02, 2019 Assessment & Plan (1) Wound of ankle: Continue out of bed as tolerated. Ice and elevate for swelling. Continue boot when out of bed. Encouraged toe and ankle ROM as tolerated Continue wound vac for open wound left ankle Continue Lovenox for DVT prophylaxis. Discharge when medically stable to [facility], and follow up with Plastic surgeon in [place] as scheduled for further recommendations. Will discuss findings with Dr. Hathaway and follow while inpatient. Subjective Patient sitting up in chair, no complaints of pain in left ankle, but states that "he knows it's there". Denies chest pain or shortness of breath. He states that his legs and scrotum are swollen. Physical Exam Physical Exam: Left ankle in cam boot. Left foot and ankle with 2+ edema. Moves toes well. Wound vac in place, functioning. Dorsalis pedis pulse trace palpable. Nontender with palpation of toes. Results & Data Vital Signs (Past 12 Hours) Vital Signs Temp Pulse Pulse Resp BP Pulse Ox 11/02/19 15:14 36.6 C 74 18 109/39 L 95 11/02/19 07:15 36.6 C 74 16 116/60 90
[2019-11-02] MEDS ORDERED: ENOXAPARIN INJ 40 MG/0.4 ML SYR SQ ONE (16:31)
[2019-11-02] MEDS: ENOXAPARIN INJ 40 MG/0.4 ML SYR SQ SCH (19:05)
--- NOTE | 2019-11-02 19:18 | Nephrology Progress Note ---
Date of Service November 02, 2019 Assessment & Plan (1) Hyponatremia: Hypervolemic. Associated with chronic liver disease and acute kidney injury. Appetite has been poor. Patient is being maintained on a free water restriction of 1800 mL daily. Furosemide is being provided to encourage in negative fluid balance. He is notably hypovolemic in the setting of liver disease. Dietary consultation for nutritional supplements may be beneficial. IV albumin provided today. (2) Anemia: Chronic. Patient denies any evidence of GI blood loss. He does have a notable history of rectal bleeding due to hemorrhoids. He has also been losing blood through his wound VAC. This is being managed by the hospitalist team. GI consultation obtained today due to heme-positive stool. (3) Osteomyelitis: With positive blood cultures bone culture is noted. Patient remains on antibiotic therapy with Rocephin. Clinical evidence of infection is improving. (4) Acute kidney injury: Patient was admitted with acute kidney injury due to prerenal azotemia as well as low-grade rhabdomyolysis. This was treated with IV fluid replacement. Patient tolerated this reasonably well but has now developed evidence of 3rd spacing of fluids. He has restarted diuretics. Creatinine has been rising in the setting of diuresis. This would be considered acceptable with close clinical monitoring. Urine studies are consistent with prerenal RAMSES. Clinical presentation does not suggest significant HRS1. Blood pressure has been reasonable--he has not been hypotensive. Urine sodium low but >5. IV albumin 12.5 g q 6 hours provided today. The patient is nonoliguric. Additional imaging was deferred this time. Electrolytes are acceptable. There is certainly no indication for renal replacement therapy at this time. I would suggest to continue Lasix to encouraged to slightly negative fluid balance. IV albumin was provided today to increase effective arterial volume in the setting of severe hypoalbuminemia and liver disease. Given his known history of portal hypertension and ascites is will be closely monitored. Other signs of decompensated liver disease appear to be improving. (5) Ascites: Known history in the setting of cirrhosis. The patient's meld score is currently 17 based on recent labs. Do not see an indication at this time for either therapeutic or diagnostic paracentesis. We will continue closely clinically monitor. I agree with continued use of loop diuretics to encourage slightly negative fluid balance. Unfortunately the patient did not tolerate spironolactone well in the past due to gynecomastia. Subjective No acute events overnight. Nicolás was seen and evaluated this morning. He was feeling better this afternoon. Edema improving. Scrotal edema significant uncomfortable. I discussed the plan of care with Dr. Navarro. Review of Systems Review of Systems: All systems reviewed & are unremarkable except as noted in HPI & below Physical Exam Constitutional: + ill appearing and + frail appearing Eyes: no conjunctival abnormality and sclerae not anicteric ENMT: Mouth: no oral mucosal abnormality and oral mucous membranes not dry Neck: normal visual inspection, trachea midline and + thick neck Respiratory: normal respiratory effort Auscultation: + rales Cardiovascular: Heart Sounds: normal S1 and normal S2 Extremities: + edema Gastrointestinal (Abdomen): Inspection/Auscultation: + abdomen distended Percussion/Palpation: abdomen nontender Musculoskeletal: Extremities: no cyanosis and no clubbing Skin: + ecchymosis; no jaundice Neurologic: Motor/Sensory: no tremor and no asterixis Results & Data Vital Signs (Past 12 Hours) Vital Signs Temp Pulse Pulse Resp BP Pulse Ox 11/02/19 19:10 74 17 112/55 L 97 11/02/19 15:14 36.6 C 74 18 109/39 L 95 11/02/19 07:15 36.6 C 74 16 116/60 90 Laboratory Results Laboratory Results - last 24 hr 11/01/19 11/02/19 11/02/19 20:42 03:00 05:45 WBC 6.32 RBC 2.24 L Hgb 8.0 L Hct 23.1 L MCV 103.1 H MCH 35.7 H MCHC 34.6 RDW Std Deviation 76.7 H RDW Coeff of Ramses 20.6 H Plt Count 107 L MPV 10.0 Immature Gran % (Auto) 0.3 Neut % (Auto) 56.4 Lymph % (Auto) 18.0 [place] % (Auto) 19.8 Eos % (Auto) 5.2 Baso % (Auto) 0.3 Immature Gran # (Auto) 0.02 Neut # (Auto) 3.56 Lymph # (Auto) 1.14 L [place] # (Auto) 1.25 H Eos # (Auto) 0.33 Baso # (Auto) 0.02 Polychromasia 1+ Anisocytosis Present Macrocytosis Present PT INR Sodium Potassium Chloride Carbon Dioxide Anion Gap BUN Creatinine Est Cr Clr Drug Dosing Est GFR ( Amer) Est GFR (Non-Af Amer) BUN/Creatinine Ratio Glucose Calcium Total Bilirubin AST ALT Alkaline Phosphatase Total Protein Albumin Globulin Albumin/Globulin Ratio Urine Color Dark Yellow Urine Appearance Turbid A Urine pH 5.0 Ur Specific [place] 1.017 Urine Protein Trace H Urine Glucose (UA) Negative Urine Ketones Negative Urine Blood 3+ H Urine Nitrite Negative Urine Bilirubin 1+ H Urine Urobilinogen Negative Ur Leukocyte Esterase 2+ H Urine WBC (Auto) 10-30 H Urine RBC (Auto) >30 H U Hyaline Cast (Auto) 1-5 U Epithel Cells (Auto) 10-20 H Urine Bacteria (Auto) 1+ H Urine Mucus Present A Ur Random Sodium 17 11/02/19 11/02/19 05:45 05:45 WBC RBC Hgb Hct MCV MCH MCHC RDW Std Deviation RDW Coeff of Ramses Plt Count MPV Immature Gran % (Auto) Neut % (Auto) Lymph % (Auto) [place] % (Auto) Eos % (Auto) Baso % (Auto) Immature Gran # (Auto) Neut # (Auto) Lymph # (Auto) [place] # (Auto) Eos # (Auto) Baso # (Auto) Polychromasia Anisocytosis Macrocytosis PT 14.0 H INR 1.4 H Sodium 136 Potassium 4.2 Chloride 105 Carbon Dioxide 27 Anion Gap 4.0 BUN 41 H Creatinine 1.62 H Est Cr Clr Drug Dosing 48.1 Est GFR ( Amer) 49.8 Est GFR (Non-Af Amer) 43.0 BUN/Creatinine Ratio 25.5 H Glucose 77 Calcium 7.7 L Total Bilirubin 1.8 H AST 33 ALT 17 Alkaline Phosphatase 130 H Total Protein 5.4 L Albumin 1.8 L Globulin 3.6 Albumin/Globulin Ratio 0.5 L Urine Color Urine Appearance Urine pH Ur Specific [place] Urine Protein Urine Glucose (UA) Urine Ketones Urine Blood Urine Nitrite Urine Bilirubin Urine Urobilinogen Ur Leukocyte Esterase Urine WBC (Auto) Urine RBC (Auto) U Hyaline Cast (Auto) U Epithel Cells (Auto) Urine Bacteria (Auto) Urine Mucus Ur Random Sodium PG Care Time/CCT Total # of Minutes Spent Total Time Spent with Patient: Total time spent is greater than 50% in coordination of care (as documented) at patient's floor/unit and/or counseling patient: (1) Anemia Anemia type: other cause Other causes of anemia: other cause, not classified Qualified Code(s): D64.89 - Other specified anemias (2) Osteomyelitis Osteomyelitis type: other acute Osteomyelitis location: fibula Laterality: left Qualified Code(s): M86.162 - Other acute osteomyelitis, left tibia and fibula (3) Ascites Ascites type: due to alcoholic cirrhosis Qualified Code(s): K70.31 - Alcoholic cirrhosis of liver with ascites
--- NOTE | 2019-11-02 20:36 | Hospitalist Progress Note ---
Date of Service November 02, 2019 Assessment & Plan (1) Alcoholic cirrhosis: Severely decompensated Patient received IV albumin albumin and furosemide 40 mg IV twice daily. Nephrology follows.continue closely clinically monitor, continued use of loop diuretics to encourage slightly negative fluid balance. hyponatremia was likely due to fluid weight gain this improved with diuresis-chronic follows with [facility] if GI consultation is needed at any time For scrotal edema placed order for ultrasound of the scrotum to determine if surgery should be called old urology. Less likely patient is surgical candidate for any major procedure. Hoping to meet daughter and discussed goals of care. Patient has very poor prognosis overall. (2) Osteomyelitis: Left ankle wound with exposed hardware at time of admission. biopsy-confirmed and culture-confirmed osteomyelitis of distal fibula. Culture with MSSA. Another culture w/ clostridium. S/P I&D and hardware removal on 10/19. Remains on rocephin 2gm daily via RUE PICC. 6-week course?? NWB to LLE. CAM boot remains. Orthopedics and Dr Stevenson from plastics recommends follow-up with a Dr Torres at [facility] for plastics consultation. May need special flap procedure to close the wound. This will need to be set up shortly after d/c. On exam appears to have intact vascular supply with good pulses and cap refill although could consider arterial duplex study of left leg to ensure adequate blood flow for optimal wound healing. Wound vac removed today by wound care team. By report has had oozing of blood from wound in setting of therapeutic lovenox use - see below in "Portal vein thrombosis." Spoke with Dr Hathaway - we discussed the oozing, need for ongoing IV abx, and need for f/u with Dr Torres in [facility]. Appt with Dr Torres at [facility] -- 11/16/2019 (see discharge instructions). Cont pain control. Optimize nutrition. (3) Ribs, multiple fractures: b/l rib series today - IMPRESSION: 1. No evidence of pneumothorax 2. Acute fracture the right sixth rib anterolaterally 3. Acute fractures of the left sixth, seventh, and eighth ribs anterolaterally fractures were due to trauma from fall prior to admission pain control will order K-pad voltaren gel qid (4) Anemia: Multifactorial - advanced cirrhosis, acute blood loss anemia from left LE wound, etc. Fecal occult blood positive.Lovenox on hold for 2 days for DVT prophylaxis. Given 1 unit of PRBCs, H/H stable now. Consulted GI for positive fecal occult blood-no intervention necessary at this time. Will restart Lovenox for DVT prophylaxis 40 mg subcu daily. B12/folate wnl. TSH wnl. Iron studies most c/w anemia of chronic disease but likely some element of iron loss. Increase Fe to BID dosing. Monitor H/H (5) Rhabdomyolysis: Traumatic rhabdomyolysis - 2nd to fall at home with prolonged time on floor prior to admission. CK 5000 on admission Last CK was nearly normal (6) Bacteremia: Coag neg staph in 1 set, and moraxella species from the 2nd set -- at time of admission. Repeat blood cx's were negative. Since he had multiple pathogens in various bottles uncertain of clinical significance of these. Either way doing well with no fevers, stable vitals, etc. (7) Pneumonia: possible/suspected aspiration due to altered mental status, laying on floor at home, etc? either way has completed full course of IV abx to cover for pneumonia (8) Sepsis: likely 2nd to left ankle osteomyelitis sepsis resolved see discussion above Re: positive blood cx's at admission (9) Elevated troponin: Troponin peaked at 6.1 and trended downward Seen by cardiology - likely myocardial demand ischemia in setting of sepsis, fall, etc NOT an ACS/thrombotic event ECHO: EF 60-65%; no regional wall motion abnormalities; mild LVH no ischemic symptoms at this time (10) Acute kidney injury: sepsis-associated ATN / acute kidney injury -- resolved (11) Altered mental status: Due to metabolic encephalopathy- RESOLVED patient fully awake, alert, oriented x 3 (12) COPD (chronic obstructive pulmonary disease): controlled (13) Portal vein thrombosis: Completed nearly 6 months of Coumadin therapy. Was followed with Anticoagulation clinic at [facility] - Dr Nam. warfarin stopped in yamileth of lovenox this admission. there was concern about needing additional surgeries for left ankle thus lovenox continued in yamileth of the coumadin spoke with Dr Hathaway - he was concerned about ongoing oozing of blood from ankle I then spoke with Dr Nam -- since he completed nearly 6 months of anticoagulation can STOP the full-strength lovenox and simply give 40mg daily for DVT proph purposes this should help oozing We had to stop Lovenox because patient started to have positive fecal occult blood. We will consult GI. DVT prophylaxis SCDs. (14) Hyponatremia: this is likely due to volume overload from decompensated cirrhosis. much improved - now 133 repeat BMP in am (15) DVT prophylaxis: lovenox 40mg DVT prophylaxis since patient has positive fecal occult blood. For DVT prophylaxis we will use SCDs. We will transfuse patient with 1 unit of blood because his H&H dropped to 7.2 and 21.9. Recheck CBC posttransfusion. daughter extensively updated by phone on 10/28/19 likely needs to stay the weekend for ongoing wound surveillance, diuresis, following CBC and need for transfusion cont IV abx in meantime Disposition to to [facility] hopefully this week Subjective Patient seen and examined at the bedside. He is alert oriented having breakfast. During the day patient was eating a lots of Twinkies, which we will try to remove from him. Edema is slowly improving. Scrotal edema is still present and uncomfortable. Patient is poor historian and it is difficult to obtain review of system with him. I tried to meet with his daughter today but she was out sick. Review of Systems Review of Systems: All systems reviewed & are unremarkable except as noted in HPI & below Physical Exam Constitutional: WD/WN, vitals as above + frail appearing; no acute distress, no altered mental status and + not well groomed Eyes: normal visual dias by confrontation and + anicteric sclerae ENMT: Ears: no hearing impairment Mouth: + poor dentition; oral mucous membranes not dry Neck: normal visual inspection and trachea midline Respiratory: normal respiratory effort, lungs clear to auscultation normal respiratory effort; no cough Auscultation: + diminished lung sounds (bases) Cardiovascular: Rate/Rhythm: regular rate and regular rhythm Heart Sounds: normal S1 and normal S2; no murmur Vessels: posterior tibial pulses present, dorsalis pedis pulses present and ulnar pulses present; no JVD Extremities: normal capillary refill (left foot ) and + edema (2-3+ b/l legs) Gastrointestinal (Abdomen): Inspection/Auscultation: + abdomen distended (w/ ascites ), normal bowel sounds and + visible herniation (umbilical - reducible ) Percussion/Palpation: + abdomen tender (flanks - there is severe body wall edema over these 2 regions ) and abdomen soft; no guarding, abdomen not rigid and no hepatosplenomegaly Musculoskeletal: Head/Neck/Chest: normocephalic and head atraumatic Skin: no rashes, warm and dry Neurologic: moves all extremities and awake; not confused Speech / Cognition: normal speech Psychiatric: A+Ox3, euthymic affect Orientation: alert Results & Data Vital Signs (Past 12 Hours) Vital Signs Temp Pulse Pulse Resp BP Pulse Ox 11/02/19 20:12 36.4 C L 75 16 115/57 L 96 11/02/19 19:10 74 17 112/55 L 97 11/02/19 15:14 36.6 C 74 18 109/39 L 95 PG Care Time/CCT Total # of Minutes Spent Total Time Spent with Patient: Total time spent is greater than 50% in coordination of care (as documented) at patient's floor/unit and/or counseling patient: (1) Alcoholic cirrhosis Ascites presence: unspecified Qualified Code(s): K70.30 - Alcoholic cirrhosis of liver without ascites (2) Osteomyelitis Osteomyelitis type: other acute Osteomyelitis location: fibula Laterality: left Qualified Code(s): M86.162 - Other acute osteomyelitis, left tibia and fibula (3) Ribs, multiple fractures Encounter type: initial encounter Fracture type: closed Laterality: bilateral Qualified Code(s): S22.43XA - Multiple fractures of ribs, bilateral, initial encounter for closed fracture (4) Anemia Anemia type: other cause Other causes of anemia: other cause, not classified Qualified Code(s): D64.89 - Other specified anemias (5) Rhabdomyolysis Rhabdomyolysis type: non-traumatic Qualified Code(s): M62.82 - Rhabdomyolysis (6) Pneumonia Pneumonia type: aspiration pneumonia Aspiration pneumonia type: unspecified Laterality: unspecified laterality Lung location: unspecified part of lung Qualified Code(s): J69.0 - Pneumonitis due to inhalation of food and vomit (7) Sepsis Sepsis acute organ dysfunction status: unspecified Sepsis type: sepsis due to unspecified organism Qualified Code(s): A41.9 - Sepsis, unspecified organism (8) Altered mental status Altered mental status type: unspecified Qualified Code(s): R41.82 - Altered mental status, unspecified (9) COPD (chronic obstructive pulmonary disease) COPD type: unspecified COPD Qualified Code(s): J44.9 - Chronic obstructive pulmonary disease, unspecified
[2019-11-02] MEDS: SENNA 8.6 MG TAB PO SCH (22:11)
[2019-11-03] MEDS: ALBUMIN 25% 50 ML IV SCH ×2 (00:26→06:00)
[2019-11-03 05:34] LABS: Basophils # (auto) 0.05 K/uL (0-0.2); Eosinophils # (auto) 0.26 K/uL (0-0.5); Hematocrit (blood only) 23.2 % (42-52); Hemoglobin 7.9 g/dL (14.0-18.0); Immature Granulocytes # (auto) 0.01 K/uL (0.00-0.02); Immature Granulocytes % (auto) 0.2 %; Lymphocytes # (auto) 0.96 K/uL (1.2-3.4); Lymphocytes % (auto) 18.4 %; Mean Corpuscular Hemoglobin 35.1 pg (25-34); Mean Corpuscular Hgb Conc 34.1 g/dL (32-36); Mean Corpuscular Volume 103.1 fL (80-100); Mean Platelet Volume 9.6 fL (7.4-10.4); Monocytes # (auto) 1.16 K/uL (0.11-0.59); Monocytes % (auto) 22.2 %; Neutrophils # (auto) 2.79 K/uL (1.4-6.5); Neutrophils % (auto) 53.2 %; Platelet Count 113 K/uL (130-400); RDW Standard Deviation 75.5 fL (36.4-46.3); Red Blood Count 2.25 M/uL (4.7-6.1); White Blood Count 5.23 K/uL (4.8-10.8)
[2019-11-03 05:55] LABS: INR 1.4 (0.9-1.1)
[2019-11-03 05:59] LABS: Anisocytosis Present; Macrocytosis Present
[2019-11-03 06:00] LABS: Est GFR (African American) 46.6; Est GFR (Non-African American) 40.2; Potassium 4.4 mmol/L (3.5-5.1)
[2019-11-03 06:01] LABS: Albumin Level 2.1 gm/dl (3.4-5.0); BUN Creatinine Ratio 29.8 (10-20); Calcium 8.1 mg/dl (8.5-10.1); Creatinine Clr Calc Pharmacy 45.5 ml/min
[2019-11-03 06:03] LABS: Albumin Globulin Ratio 0.6 (0.9-2); Bilirubin,Total 1.7 mg/dl (0.2-1); Globulin 3.6 gm/dl (2.5-4.0); Total Protein 5.7 gm/dl (6.4-8.2)
--- NOTE | 2019-11-03 07:32 | Ultrasound Report ---
US scrotum/testicle CLINICAL HISTORY: 69 years-old Male presenting with testicular edema, pain L implant. TECHNIQUE: Real-time grayscale and color and spectral Doppler ultrasound imaging of the scrotum was p erformed. COMPARISON: CT from 04/16/2019. FINDINGS: Right testis: Normal echogenicity and echotexture. Testis measures 3.4 x 2.3 x 2.3 cm. Normal color D oppler flow and arterial and venous waveforms in the testicular parenchyma. Epididymal head normal. M oderate hydrocele present. No varicocele. Left testis: Normal echogenicity and echotexture. Testis measures 3.5 x 2.5 x 2.2 cm. Normal color Do ppler flow and arterial and venous waveforms in the testicular parenchyma. Subcentimeter epididymal h ead cyst(s), either epididymal cyst or spermatocele. Moderate hydrocele present. No varicocele. Symmetric perfusion of the testes. Other: Significant scrotal wall edema. Partially visualized penile implant along the left inguinal re gion. There is a fluid containing right inguinal hernia sac. The appearance is not favored to represe nt bowel. Inspissated fluid noted within this region. This tracks to abdominopelvic ascites more supe riorly. IMPRESSION: 1. No evidence of testicular torsion or epididymitis-orchitis. 2. Fluid-containing right inguinal hernia likely associated with ascites. No convincing evidence of bowel within the hernia sac. 3. Penile implant. No specific abnormality associated with the implant allowing for sensitivity of u ltrasound. 4. Moderate bilateral hydroceles. ACT 112: Negative or not required by law. Electronically signed by: Markie Hobbs M.D. 11/03/2019 7:31 AM
[2019-11-03] MEDS: FAMOTIDINE 20 MG TAB PO SCH ×2 (09:11→20:10)
[2019-11-03] MEDS: MAGNESIUM OXIDE 400 MG TAB PO SCH ×2 (09:11→20:10)
[2019-11-03] MEDS: FERROUS SULFATE 325 MG TAB PO SCH ×2 (09:11→17:32)
[2019-11-03] MEDS: CHOLECALCIFEROL 1,000 UNITS 25 MCG TAB PO SCH (09:11)
[2019-11-03] MEDS: MULTIVITAMIN TAB PO SCH (09:11)
[2019-11-03] MEDS: PANTOprazole 40 MG TAB PO SCH ×2 (09:11→20:09)
[2019-11-03] MEDS: MUPIROCIN 2% OINT 22 GM TUBE EXT SCH ×2 (09:12→20:18)
[2019-11-03] MEDS: DOCUSATE SODIUM 100 MG CAP PO SCH ×2 (09:12→20:17)
[2019-11-03] MEDS: FUROSEMIDE 40 MG in SYRINGE 0 ML IV SCH (09:15)
[2019-11-03] MEDS: cefTRIAXone SODIUM 2,000 MG in DEXTROSE 5% 50 ML IV SCH (09:15)
[2019-11-03] MEDS: DICLOFENAC SOD 1% GEL 100 GM TUBE EXT SCH ×4 (09:20→20:17)
[2019-11-03] MEDS: OXYCODONE HCL IR 5 MG TAB (IMMEDIATE RELEASE) PO PRN ×2 (09:52→16:12)
--- NOTE | 2019-11-03 10:07 | Nephrology Progress Note ---
Date of Service November 03, 2019 Assessment & Plan (1) Hyponatremia: Hypervolemic. Associated with chronic liver disease and acute kidney injury. Appetite has been poor. Patient is being maintained on a free water restriction of 1000 mL daily. Furosemide is being provided to encourage in negative fluid balance. He is notably hypovolemic in the setting of liver disease. However intravascular volume is depleted. Dietary consultation for nutritional supplements. IV albumin provided today (25 g q 8 hours) (2) Anemia: Chronic. Patient denies any evidence of GI blood loss. He does have a notable history of rectal bleeding due to hemorrhoids. He has also been losing blood through his wound VAC. This is being managed by the hospitalist team. GI consultation obtained due to heme-positive stool. (3) Osteomyelitis: With positive blood cultures bone culture is noted. Patient remains on antibiotic therapy with ceftriaxone. Clinical evidence of infection is improving. (4) Acute kidney injury: Patient was admitted with acute kidney injury due to prerenal azotemia as well as low-grade rhabdomyolysis. This was treated with IV fluid replacement. Patient tolerated this reasonably well but has now developed evidence of 3rd spacing of fluids. Diuretics restarted a few days ago. Creatinine has been rising in the setting of diuresis. This would be considered acceptable with close clinical monitoring. Urine studies are consistent with prerenal RAMSES. Clinical presentation does not suggest significant HRS1. Blood pressure has been reasonable--he has not been hypotensive. Urine sodium low but >5. IV albumin 25 g q 8 hours provided today. The patient is nonoliguric. Additional imaging was deferred this time. Electrolytes are acceptable. There is certainly no indication for renal replacement therapy at this time. I would suggest to continue Lasix to encourage a negative fluid balance. IV albumin was provided today to increase effective arterial volume in the setting of severe hypoalbuminemia and liver disease. Given his known history of portal hypertension and ascites is will be closely monitored. Other signs of decompensated liver disease appear to be improving. (5) Ascites: Known history in the setting of cirrhosis. The patient's meld score has been ~17 based on recent labs. Do not see an indication at this time for either therapeutic or diagnostic paracentesis. We will continue closely clinically monitor. I agree with continued use of loop diuretics to encourage slightly negative fluid balance. Unfortunately the patient did not tolerate spironolactone well in the past due to gynecomastia. Subjective No acute events overnight. Out of bed this morning. Nicolás reports significant discomfort from LE and scrotal edema. He does think some of the edema in his legs is improving. Abdomen seems to be more distended. Appetite is good. He denies pain. He is frustrated. Review of Systems Review of Systems: All systems reviewed & are unremarkable except as noted in HPI & below Physical Exam Constitutional: + ill appearing and + frail appearing Eyes: no conjunctival abnormality and sclerae not anicteric ENMT: Mouth: no oral mucosal abnormality and oral mucous membranes not dry Neck: normal visual inspection, trachea midline and + thick neck Respiratory: normal respiratory effort Auscultation: + rales Cardiovascular: Heart Sounds: normal S1 and normal S2 Extremities: + edema Gastrointestinal (Abdomen): Inspection/Auscultation: + abdomen distended Percussion/Palpation: abdomen nontender Musculoskeletal: Extremities: no cyanosis and no clubbing Skin: + ecchymosis; no jaundice Neurologic: Motor/Sensory: no tremor and no asterixis Results & Data Vital Signs (Past 12 Hours) Vital Signs Temp Pulse Pulse Resp BP Pulse Ox 11/03/19 07:32 36.6 C 82 16 116/52 L 91 11/03/19 06:54 36.4 C L 79 14 110/53 L 92 11/03/19 05:59 36.8 C 85 18 128/53 L 93 11/03/19 01:30 36.6 C 85 14 122/64 92 11/03/19 00:22 36.5 C 80 14 116/54 L 96 11/02/19 23:34 36.4 C L 75 16 100/55 L 96 Laboratory Results Laboratory Results - last 24 hr 11/03/19 11/03/19 11/03/19 05:08 05:08 05:08 WBC 5.23 RBC 2.25 L Hgb 7.9 L Hct 23.2 L MCV 103.1 H MCH 35.1 H MCHC 34.1 RDW Std Deviation 75.5 H RDW Coeff of Ramses 20.0 H Plt Count 113 L MPV 9.6 Immature Gran % (Auto) 0.2 Neut % (Auto) 53.2 Lymph % (Auto) 18.4 [place] % (Auto) 22.2 Eos % (Auto) 5.0 Baso % (Auto) 1.0 Immature Gran # (Auto) 0.01 Neut # (Auto) 2.79 Lymph # (Auto) 0.96 L [place] # (Auto) 1.16 H Eos # (Auto) 0.26 Baso # (Auto) 0.05 Anisocytosis Present Macrocytosis Present PT 14.0 H INR 1.4 H Sodium 139 Potassium 4.4 Chloride 106 Carbon Dioxide 27 Anion Gap 5.0 BUN 51 H Creatinine 1.71 H Est Cr Clr Drug Dosing 45.5 Est GFR ( Amer) 46.6 Est GFR (Non-Af Amer) 40.2 BUN/Creatinine Ratio 29.8 H Glucose 84 Calcium 8.1 L Total Bilirubin 1.7 H AST 31 ALT 15 Alkaline Phosphatase 114 Total Protein 5.7 L Albumin 2.1 L Globulin 3.6 Albumin/Globulin Ratio 0.6 L PG Care Time/CCT Total # of Minutes Spent Total Time Spent with Patient: Total time spent is greater than 50% in coordination of care (as documented) at patient's floor/unit and/or counseling patient: (1) Anemia Anemia type: other cause Other causes of anemia: other cause, not classified Qualified Code(s): D64.89 - Other specified anemias (2) Osteomyelitis Osteomyelitis type: other acute Osteomyelitis location: fibula Laterality: left Qualified Code(s): M86.162 - Other acute osteomyelitis, left tibia and fibula (3) Ascites Ascites type: due to alcoholic cirrhosis Qualified Code(s): K70.31 - Alcoholic cirrhosis of liver with ascites
--- NOTE | 2019-11-03 10:50 | Orthopedic Progress Note ---
Date of Service November 03, 2019 Assessment & Plan (1) Wound of ankle: Continue out of bed as tolerated. - NWB LLE Ice and elevate for swelling. Continue boot when out of bed. Encouraged toe and ankle ROM as tolerated Continue wound vac for open wound left ankle Continue Lovenox for DVT prophylaxis. Discharge when medically stable to [facility], and follow up with Plastic surgeon in [place] as scheduled for further recommendations. Continue PT/OT for reconditioning and gait training. Continue IV antibiotics Will plan to re-eval on Friday if patient still in hospital with wound care nurse prior to wound vac change to visualize wound together of left ankle. Subjective Patient seen today with Dr. Hathaway. Wound care nurse at bedside, just finished changing wound vac. Resting in bed, states that he does have pain in his left ankle today. Still complains of leg edema and scrotal swelling. Physical Exam Physical Exam: Left ankle wound vac in place, edema left leg and foot. Moves toes well. Incision clean and intact. Sutures retained, mildly sloughing of superficial skin. Dressing applied by wound care nurse, incision excluded from wound vac dressing this application. Results & Data Vital Signs (Past 12 Hours) Vital Signs Temp Pulse Pulse Resp BP Pulse Ox 11/03/19 07:32 36.6 C 82 16 116/52 L 91 11/03/19 06:54 36.4 C L 79 14 110/53 L 92 11/03/19 05:59 36.8 C 85 18 128/53 L 93 11/03/19 01:30 36.6 C 85 14 122/64 92 11/03/19 00:22 36.5 C 80 14 116/54 L 96 11/02/19 23:34 36.4 C L 75 16 100/55 L 96
[2019-11-03] MEDS: ALBUMIN 25% 100 ML IV SCH ×2 (12:38→17:52)
[2019-11-03] MEDS: NYSTATIN CR 15 GM TUBE EXT SCH ×2 (14:43→20:18)
--- NOTE | 2019-11-03 15:41 | Gastroenterology Progress Note ---
Date of Service November 03, 2019 Assessment & Plan (1) Heme positive stool: Continue PPI bid. NO signs of active bleeding. Ok Lovenox at DVT dosing. anemia--stable today. Feel drop was explained by several days of oozing blood from wound. PV thrombosis--would stop the full dose anticoagulation for this. ascites/lower extermitiy edema--Discussed with DR Rodriguez that BUN/CR increasing but volume overload remains. 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 Would do large volume paracentesis this admit and check cell count and culture for SBP. Would then do paracentesis periodically perhaps every other week. I also discussed that generally we use 2 gm Na salt restriction in these patients rather than fluid restrictuion because fluid accumulates depending on salt intake. Will defer changing diet to Dr Rodriguez in case renal feels strongly about using the fluid restriction route. cirrhosis--not a transplant candidate per Suzanne Subjective CC f/u ascites, heme pos stool HPI Pt states large green stool today. Some burning of abdomen skin but no abd pain. He thinks lower extremity edema somewhat better but scrotal swelling is not. Review of Systems Respiratory: no dyspnea Cardiovascular: no chest pain Physical Exam Constitutional: WD/WN, vitals as above Respiratory: normal respiratory effort, lungs clear to auscultation Cardiovascular: RRR, no murmur, no edema Gastrointestinal (Abdomen): abdomon pos bs, mildly distended, no guarding nor rebound, onging scrotal swelling Psychiatric: A+Ox3, euthymic affect Results & Data Vital Signs (Past 12 Hours) Vital Signs Temp Pulse Resp BP Pulse Ox 11/03/19 12:40 36.6 C 82 16 109/56 L 95 11/03/19 07:32 36.6 C 82 16 116/52 L 91 11/03/19 06:54 36.4 C L 79 14 110/53 L 92 11/03/19 05:59 36.8 C 85 18 128/53 L 93
[2019-11-03] MEDS: ENOXAPARIN INJ 40 MG/0.4 ML SYR SQ SCH (17:32)
[2019-11-03] MEDS: NYSTATIN SUSP 500,000 U/5 ML UDC PO SCH ×2 (17:32→20:09)
[2019-11-03] MEDS: SENNA 8.6 MG TAB PO SCH (20:09)
--- NOTE | 2019-11-03 20:46 | Hospitalist Progress Note ---
Date of Service November 03, 2019 Assessment & Plan (1) Acute kidney injury: Peak Cr 1.8 earlier this admission; had resolved with normalization of Cr to <0.9 Initial RAMSES was sepsis-associated ATN / acute kidney injury. Then developed recurrent RAMSES last few days. Likely pre-renal state in setting of attempts at diuresis for volume overload. Discussed this with Dr Nicholson extensively today. Will hold diuretics after tonight's dose. Repeat BMP am. Would transition to oral diuretics tomorrow. No evidence of hepatorenal syndrome. He will remain at high-risk of RAMSES as outpatient due to complicated medical issues especially his cirrhosis. (2) Alcoholic cirrhosis: with decompensation started back diuretics on 10/28 has received IV diuresis since now with acute kidney injury discussed care w/ Dr [facility] and Dr Nicholson today plan - hold IV diuretics after tonight's dose paracentesis tomorrow - send fluid for gram stain, Cx, cell counts; however this will be mostly therapeutic tap will need albumin for paracentesis additional IV albumin is at discretion of Dr Nicholson consider resuming inderal at d/c if BP will allow (3) Osteomyelitis: Left ankle wound with exposed hardware at time of admission. biopsy-confirmed and culture-confirmed osteomyelitis of distal fibula. Culture with MSSA. Another culture w/ clostridium. S/P I&D and hardware removal on 10/19. Remains on rocephin 2gm daily via RUE PICC. 6-week course likely. NWB to LLE. CAM boot remains. Orthopedics and Dr Stevenson from plastics recommends follow-up with a Dr Torres at [facility] for plastics consultation. May need special flap procedure to close the wound. This has been set up shortly after d/c (11/16/19). On exam appears to have intact vascular supply with good pulses and cap refill. Wound vac remains and managed by wound care nurse. Try to enhance his nutrition. Cont pain control. (4) Ribs, multiple fractures: b/l fractures were due to trauma from fall prior to admission pain control voltaren gel qid (5) Anemia: Multifactorial - advanced cirrhosis, acute blood loss anemia from left LE wound, etc. B12/folate wnl. TSH wnl. Iron studies most c/w anemia of chronic disease but some element of iron loss. cont Fe BID supplementation. Recheck CBC in am. s/p multiple PRBCs this admission. (6) Rhabdomyolysis: Traumatic rhabdomyolysis - 2nd to fall at home with prolonged time on floor prior to admission. CK 5000 on admission Last CK was nearly normal (7) Bacteremia: Coag neg staph in 1 set, and moraxella species from the 2nd set -- at time of admission. Repeat blood cx's were negative. Since he had multiple pathogens in various bottles uncertain of clinical significance of these. Likely contaminants. (8) Pneumonia: possible/suspected aspiration due to altered mental status, laying on floor at home, etc either way completed full course of IV abx to cover for pneumonia earlier this stay (9) Sepsis: likely 2nd to left ankle osteomyelitis sepsis resolved see discussion above Re: positive blood cx's at admission (10) Elevated troponin: Troponin peaked at 6.1 and trended downward Seen by cardiology - likely myocardial demand ischemia in setting of sepsis, fall, etc NOT an ACS/thrombotic event ECHO: EF 60-65%; no regional wall motion abnormalities; mild LVH (11) Altered mental status: metabolic encephalopathy- RESOLVED likely was due to sepsis ammonia earlier this admission was 25 slight confusion noted today - check ammonia again am (12) COPD (chronic obstructive pulmonary disease): controlled (13) Portal vein thrombosis: Completed nearly 6 months of Coumadin therapy. Was followed with Anticoagulation clinic at [facility] - Dr Nam. warfarin stopped after discussion with Dr Nam -- since he completed nearly 6 months of anticoagulation can STOP full anticoagulation he is on lovenox for DVT proph only (14) Hyponatremia: this was likely due to volume overload from decompensated cirrhosis. resolved repeat BMP in am (15) Candidiasis of mouth and esophagus: nystatin 5cc qid swish/swallow candidal rash groin -- nystatin Cream TID (16) DVT prophylaxis: lovenox 40mg daily daughter extensively updated today at bedside paracentesis in am by radiology care d/w GI and nephrology and social work total time today 65 minutes coordinating his complicated care Subjective pt's daughter at bedside during visit c/o mouth irritation, scrotal pain, inner thigh pain, abdominal distension/mild discomfort, left ankle pain, weakness (although he is getting up to the chair/bathroom per staff). daughter feels edema and abd distension is mildly improved relative to my last visit with him 5+ days ago. numerous questions about care plan from daughter. care d/w GI and nephrology today as well. care d/w case management. Review of Systems Constitutional: + fatigue and + anorexia; no fever and no chills Respiratory: + cough, + dyspnea and + dyspnea on exertion Cardiovascular: no chest pain Gastrointestinal: + abdominal pain, + bloating, + nausea and + diarrhea/loose stools (fluctuates); no vomiting Genitourinary: + scrotal swelling (with discomfort) Musculoskeletal: + joint pain (left ankle) Physical Exam Constitutional: + frail appearing; no acute distress, no altered mental status and + not well groomed ENMT: Mouth: + oral mucosal abnormality (irritation/erythema - ?thrush), + dry oral mucous membranes and + poor dentition Respiratory: normal respiratory effort, lungs clear to auscultation Auscultation: + diminished lung sounds (bases) Cardiovascular: Rate/Rhythm: regular rate and regular rhythm Heart Sounds: normal S1 and normal S2 Vessels: posterior tibial pulses present, dorsalis pedis pulses present and ulnar pulses present; no JVD Extremities: normal capillary refill (left foot ) and + edema (2-3+ b/l legs) Gastrointestinal (Abdomen): Inspection/Auscultation: + abdomen distended (w/ ascites ) and + visible herniation (umbilical - reducible ) Percussion/Palpation: abdomen nontender, no guarding and no hepatosplenomegaly Skin: wound vac in place left ankle; candidal rash/irritant rash groin; pallor; right arm PICC clean Psychiatric: A+Ox3, euthymic affect Results & Data Vital Signs (Past 12 Hours) Vital Signs Temp Pulse Pulse Resp BP Pulse Ox 11/03/19 15:34 36.6 C 80 20 123/61 94 11/03/19 12:40 36.6 C 82 16 109/56 L 95 Laboratory Results Laboratory Results - last 24 hr 11/03/19 11/03/19 11/03/19 05:08 05:08 05:08 WBC 5.23 RBC 2.25 L Hgb 7.9 L Hct 23.2 L MCV 103.1 H MCH 35.1 H MCHC 34.1 RDW Std Deviation 75.5 H RDW Coeff of Ramses 20.0 H Plt Count 113 L MPV 9.6 Immature Gran % (Auto) 0.2 Neut % (Auto) 53.2 Lymph % (Auto) 18.4 [place]ay % (Auto) 22.2 Eos % (Auto) 5.0 Baso % (Auto) 1.0 Immature Gran # (Auto) 0.01 Neut # (Auto) 2.79 Lymph # (Auto) 0.96 L [place]ay # (Auto) 1.16 H Eos # (Auto) 0.26 Baso # (Auto) 0.05 Anisocytosis Present Macrocytosis Present PT 14.0 H INR 1.4 H Sodium 139 Potassium 4.4 Chloride 106 Carbon Dioxide 27 Anion Gap 5.0 BUN 51 H Creatinine 1.71 H Est Cr Clr Drug Dosing 45.5 Est GFR ( Amer) 46.6 Est GFR (Non-Af Amer) 40.2 BUN/Creatinine Ratio 29.8 H Glucose 84 Calcium 8.1 L Total Bilirubin 1.7 H AST 31 ALT 15 Alkaline Phosphatase 114 Total Protein 5.7 L Albumin 2.1 L Globulin 3.6 Albumin/Globulin Ratio 0.6 L PG Care Time/CCT Total # of Minutes Spent Total Time Spent with Patient: Total time spent is greater than 50% in coordination of care (as documented) at patient's floor/unit and/or counseling patient: Prolonged Care Time Prolonged Care Time: Yes 65 (1) Ribs, multiple fractures Encounter type: initial encounter Fracture type: closed Laterality: bilateral Qualified Code(s): S22.43XA - Multiple fractures of ribs, bilateral, initial encounter for closed fracture (2) Anemia Anemia type: other cause Other causes of anemia: other cause, not classified Qualified Code(s): D64.89 - Other specified anemias (3) Alcoholic cirrhosis Ascites presence: unspecified Qualified Code(s): K70.30 - Alcoholic cirrhosis of liver without ascites (4) Rhabdomyolysis Rhabdomyolysis type: non-traumatic Qualified Code(s): M62.82 - Rhabdomyolysis (5) Sepsis Sepsis acute organ dysfunction status: unspecified Sepsis type: sepsis due to unspecified organism Qualified Code(s): A41.9 - Sepsis, unspecified organism (6) Altered mental status Altered mental status type: unspecified Qualified Code(s): R41.82 - Altered mental status, unspecified (7) COPD (chronic obstructive pulmonary disease) COPD type: unspecified COPD Qualified Code(s): J44.9 - Chronic obstructive pulmonary disease, unspecified (8) Pneumonia Aspiration pneumonia type: unspecified Laterality: unspecified laterality Lung location: unspecified part of lung Pneumonia type: aspiration pneumonia Qualified Code(s): J69.0 - Pneumonitis due to inhalation of food and vomit (9) Osteomyelitis Laterality: left Osteomyelitis location: fibula Osteomyelitis type: other acute Qualified Code(s): M86.162 - Other acute osteomyelitis, left tibia and fibula
[2019-11-04] MEDS: ALBUMIN 25% 50 ML IV SCH ×10 (00:25→18:42)
[2019-11-04] MEDS ORDERED: ALBUMIN 25% 100 ML IV SCH ×2 (01:00)
[2019-11-04 05:48] LABS: Basophils # (auto) 0.04 K/uL (0-0.2); Basophils % (auto) 0.8 %; Eosinophils # (auto) 0.31 K/uL (0-0.5); Hemoglobin 7.8 g/dL (14.0-18.0); Immature Granulocytes # (auto) 0.02 K/uL (0.00-0.02); Immature Granulocytes % (auto) 0.4 %; Lymphocytes # (auto) 1.08 K/uL (1.2-3.4); Lymphocytes % (auto) 20.9 %; Mean Corpuscular Hemoglobin 35.1 pg (25-34); Mean Corpuscular Hgb Conc 33.9 g/dL (32-36); Mean Corpuscular Volume 103.6 fL (80-100); Mean Platelet Volume 9.3 fL (7.4-10.4); Monocytes # (auto) 1.06 K/uL (0.11-0.59); Monocytes % (auto) 20.5 %; Neutrophils # (auto) 2.66 K/uL (1.4-6.5); Neutrophils % (auto) 51.4 %; Platelet Count 113 K/uL (130-400); RDW Coefficient of Variation 19.6 % (11.5-14.5); RDW Standard Deviation 74.4 fL (36.4-46.3); Red Blood Count 2.22 M/uL (4.7-6.1); White Blood Count 5.17 K/uL (4.8-10.8)
[2019-11-04 06:04] LABS: INR 1.5 (0.9-1.1); Prothrombin Time 14.7 Seconds (9.0-12.0)
[2019-11-04 06:18] LABS: RBC Morphology Unremarkable
[2019-11-04 06:20] LABS: Albumin Level 2.5 gm/dl (3.4-5.0); BUN Creatinine Ratio 30.6 (10-20); Calcium 7.9 mg/dl (8.5-10.1); Est GFR (Non-African American) 39.7; Potassium 4.1 mmol/L (3.5-5.1)
[2019-11-04 06:23] LABS: Albumin Globulin Ratio 0.7 (0.9-2); Bilirubin,Total 1.5 mg/dl (0.2-1); Globulin 3.5 gm/dl (2.5-4.0)
[2019-11-04] MEDS: CHOLECALCIFEROL 1,000 UNITS 25 MCG TAB PO SCH (08:51)
[2019-11-04] MEDS: FERROUS SULFATE 325 MG TAB PO SCH ×2 (08:52→17:44)
[2019-11-04] MEDS: MULTIVITAMIN TAB PO SCH (08:52)
[2019-11-04] MEDS: PANTOprazole 40 MG TAB PO SCH ×2 (08:52→20:52)
[2019-11-04] MEDS: FAMOTIDINE 20 MG TAB PO SCH ×2 (08:52→20:54)
[2019-11-04] MEDS: MAGNESIUM OXIDE 400 MG TAB PO SCH ×2 (08:52→20:53)
[2019-11-04] MEDS: NYSTATIN SUSP 500,000 U/5 ML UDC PO SCH ×4 (08:52→20:54)
[2019-11-04] MEDS: MUPIROCIN 2% OINT 22 GM TUBE EXT SCH ×2 (08:53→20:51)
[2019-11-04] MEDS: cefTRIAXone SODIUM 2,000 MG in DEXTROSE 5% 50 ML IV SCH (09:46)
[2019-11-04] MEDS: DOCUSATE SODIUM 100 MG CAP PO SCH ×2 (09:46→20:54)
[2019-11-04] MEDS: NYSTATIN CR 15 GM TUBE EXT SCH ×3 (09:46→20:54)
[2019-11-04] MEDS: DICLOFENAC SOD 1% GEL 100 GM TUBE EXT SCH ×4 (09:46→20:55)
--- NOTE | 2019-11-04 11:58 | Ultrasound Report ---
PARACENTESIS UNDER ULTRASOUND GUIDANCE CLINICAL HISTORY: end-stage cirrhosis COMPARISON STUDY: No previous studies for comparison. FINDINGS: The risks, benefits, and alternatives to the procedure were discussed with the patient. [facility] renata informed consent was obtained. Following real-time ultrasound localization, the skin was prepped and draped. Following local anesthesia with Xylocaine, the sheath paracentesis needle was inserted a nd approximately 2 liters of straw-colored fluid was removed by vacuum suction. A right lower quadran t approach was utilized. Postprocedure imaging revealed minimal residual fluid. The patient tolerated the procedure well and left the department in satisfactory condition. IMPRESSION: Successful ultrasound-guided paracentesis with removal of approximately 2 liters of ascit ic fluid. ACT 112: Negative or not required by law. Electronically signed by: Kenny Botello M.D. 11/04/2019 11:57 AM
[2019-11-04 13:20] LABS: Appearance Peritoneal Fluid HAZY; Basophils, Fluid 0 %; Color Peritoneal Fluid YELLOW; Eosinophils, Fluid 0 %; Lymphocytes, Fluid 22 %; Mono,Macrophage,Mesothelial 67 %; Neutrophils, Fluid 11 %; RBC Peritoneal Fluid (A) < 3000 /uL; WBC Peritoneal Fluid (A) 329 /ul (0-300)
--- NOTE | 2019-11-04 14:12 | Nephrology Progress Note ---
Date of Service November 04, 2019 Assessment & Plan (1) Hyponatremia: Hypervolemic associated with chronic liver disease and acute kidney injury. This was complicated by poor solute intake. Nicolás is being maintained on a free water restriction of 1000 mL daily. Serum sodium corrected quickly. His mucous membranes are dry. I would liberalize his fluid restriction to 1500 ml at this time. I would also continue furosemide to encourage a negative sodium balance. (2) Anemia: Chronic. Patient denies any evidence of GI blood loss. He does have a notable history of rectal bleeding due to hemorrhoids. He has also been losing blood through his wound VAC. This is being managed by the hospitalist team. GI consultation obtained due to heme-positive stool. Endoscopic evaluation deferred. (3) Osteomyelitis: With positive blood cultures bone culture is noted. Patient remains on antibiotic therapy with ceftriaxone. Clinical evidence of infection is improving. (4) Acute kidney injury: Patient was admitted with acute kidney injury due to prerenal azotemia as well as low-grade rhabdomyolysis. This was treated with IV fluid replacement. He subsequently developed evidence of 3rd spacing of fluids. Diuretics restarted several days ago and were held yesterday afternoon. Creatinine has been rising in the setting of diuresis. This would be considered acceptable with close clinical monitoring. Urine studies are consistent with prerenal RAMSES. Clinical presentation does not suggest significant HRS type 1. Blood pressure has been reasonable. Urine sodium low, but >5. IV albumin essential today following paracentesis. The patient is nonoliguric. Additional imaging was deferred this time. Electrolytes are acceptable. There is certainly no indication for renal replacement therapy at this time. I would suggest to continue Lasix at a dose of approximately 40 mg daily. IV albumin was provided today to increase effective arterial volume in the setting of severe hypoalbuminemia and liver disease. I would suggest a minimum of 50 grams before the end of the day for his paracentesis. 25 grams is being given now with an additional 25 grams s cheduled for later this afternoon. Despite his advanced illness and chronically unstable condition, I feel Nicolás is reasonably stable at this time to approach discharge with close outpatient follow up. From the nephrology standpoint, this will require close attention to laboratory studies. I will discuss coordinating this with Dr. Joyce today. Nephrology has nothing additional to add at this time and will follow peripherally as needed. If Nicolás is discharged, please arrange follow up in the clinic within the next 1-2 weeks with weekly labs. (5) Ascites: Known history in the setting of cirrhosis. The patient's meld score has been ~17 based on recent labs. Do not see an indication at this time for either therapeutic or diagnostic paracentesis. We will continue closely clinically monitor. I agree with continued use of loop diuretics to encourage slightly negative fluid balance. Unfortunately the patient did not tolerate spironolactone well in the past due to gynecomastia. Subjective No acute events overnight. Nicolás was seen and evaluated following his paracentesis today. 2L of straw colored fluid removed. Imaging did not reveal significant residual fluid following the procedure. Nicolás tolerated the procedure well. He continues to complain about LE edema and scrotal edema. He does not feel there has been significant improvement with therapy. He also questions why he is still in the hospital. Review of Systems Review of Systems: All systems reviewed & are unremarkable except as noted in HPI & below Physical Exam Constitutional: + ill appearing and + frail appearing Eyes: no conjunctival abnormality and sclerae not anicteric ENMT: Mouth: no oral mucosal abnormality and oral mucous membranes not dry Neck: normal visual inspection, trachea midline and + thick neck Respiratory: normal respiratory effort Auscultation: + rales Cardiovascular: Heart Sounds: normal S1 and normal S2 Extremities: + edema Gastrointestinal (Abdomen): Inspection/Auscultation: + abdomen distended Percussion/Palpation: abdomen nontender Musculoskeletal: Extremities: no cyanosis and no clubbing Skin: + ecchymosis; no jaundice Neurologic: Motor/Sensory: no tremor and no asterixis Results & Data Vital Signs (Past 12 Hours) Vital Signs Temp Pulse Pulse Resp BP Pulse Ox 11/04/19 13:24 36.4 C L 80 18 142/64 H 96 11/04/19 13:03 36.6 C 74 18 132/60 96 11/04/19 12:43 36.3 C L 73 18 126/60 99 11/04/19 07:45 36.1 C L 81 16 110/45 L 90 Laboratory Results Laboratory Results - last 24 hr 11/04/19 11/04/19 11/04/19 05:36 05:36 05:36 WBC 5.17 RBC 2.22 L Hgb 7.8 L Hct 23.0 L MCV 103.6 H MCH 35.1 H MCHC 33.9 RDW Std Deviation 74.4 H RDW Coeff of Ramses 19.6 H Plt Count 113 L MPV 9.3 Immature Gran % (Auto) 0.4 Neut % (Auto) 51.4 Lymph % (Auto) 20.9 Marin % (Auto) 20.5 Eos % (Auto) 6.0 Baso % (Auto) 0.8 Immature Gran # (Auto) 0.02 Neut # (Auto) 2.66 Lymph # (Auto) 1.08 L Marin # (Auto) 1.06 H Eos # (Auto) 0.31 Baso # (Auto) 0.04 RBC Morphology Unremarkable PT 14.7 H INR 1.5 H Sodium 140 Potassium 4.1 Chloride 109 H Carbon Dioxide 26 Anion Gap 5.0 BUN 53 H Creatinine 1.73 H Est Cr Clr Drug Dosing 45.0 Est GFR ( Amer) 46.0 Est GFR (Non-Af Amer) 39.7 BUN/Creatinine Ratio 30.6 H Glucose 76 Calcium 7.9 L Total Bilirubin 1.5 H AST 27 ALT 15 Alkaline Phosphatase 107 Ammonia Total Protein 6.0 L Albumin 2.5 L Globulin 3.5 Albumin/Globulin Ratio 0.7 L Fluid Neutrophils % Fluid Lymphocytes % Fluid Eosinophils % Fluid Basophils % Fluid Meso/Macro/Marin % Peritoneal Color Peritoneal Appearance Peritoneal WBC Peritoneal RBC 11/04/19 11/04/19 05:36 Unknown WBC RBC Hgb Hct MCV MCH MCHC RDW Std Deviation RDW Coeff of Ramses Plt Count MPV Immature Gran % (Auto) Neut % (Auto) Lymph % (Auto) Marin % (Auto) Eos % (Auto) Baso % (Auto) Immature Gran # (Auto) Neut # (Auto) Lymph # (Auto) Marin # (Auto) Eos # (Auto) Baso # (Auto) RBC Morphology PT INR Sodium Potassium Chloride Carbon Dioxide Anion Gap BUN Creatinine Est Cr Clr Drug Dosing Est GFR ( Amer) Est GFR (Non-Af Amer) BUN/Creatinine Ratio Glucose Calcium Total Bilirubin AST ALT Alkaline Phosphatase Ammonia 41.0 H Total Protein Albumin Globulin Albumin/Globulin Ratio Fluid Neutrophils % 11 Fluid Lymphocytes % 22 Fluid Eosinophils % 0 Fluid Basophils % 0 Fluid Meso/Macro/Marin % 67 Peritoneal Color YELLOW Peritoneal Appearance HAZY Peritoneal WBC 329 H Peritoneal RBC < 3000 PG Care Time/CCT Total # of Minutes Spent Total Time Spent with Patient: Total time spent is greater than 50% in coordination of care (as documented) at patient's floor/unit and/or counseling patient: (1) Anemia Anemia type: other cause Other causes of anemia: other cause, not classified Qualified Code(s): D64.89 - Other specified anemias (2) Osteomyelitis Osteomyelitis type: other acute Osteomyelitis location: fibula Laterality: l eft Qualified Code(s): M86.162 - Other acute osteomyelitis, left tibia and fibula (3) Ascites Ascites type: due to alcoholic cirrhosis Qualified Code(s): K70.31 - Alcoholic cirrhosis of liver with ascites
--- NOTE | 2019-11-04 17:12 | Progress Notes ---
DATE: 11/04/2019 The patient underwent a paracentesis today with removal of 2 liters of fluid, which was clear yellow and appeared not to be infected based on white blood cell count and neutrophil percentage. His left ankle remains in a boot. He is not having any significant abdominal pain at this time. My plan is for the patient to get transferred to [facility] for some continued care and rehabilitation. PHYSICAL EXAMINATION: GENERAL: The patient appears in no acute distress. VITAL SIGNS: Blood pressure is 123/53, pulse 78, temperature is 36.7. Room air saturation 96%. LABORATORY DATA: White count 5.17, hemoglobin 7.8, MCV 103.6, platelets are 113,000. INR 1.5. BUN 53, creatinine 1.73, total bilirubin 1.5. AST, ALT and alkaline phosphatase all normal. IMPRESSION: The patient has cirrhosis and ascites. He has been felt not to be a candidate for liver transplant due to his overall poor health. This was recently established at [facility]. 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 The plan is for him to be transferred to [facility] probably tomorrow.
[2019-11-04] MEDS: ENOXAPARIN INJ 40 MG/0.4 ML SYR SQ SCH (17:42)
[2019-11-04] MEDS ORDERED: BUMETANIDE 1 MG in SYRINGE 0 ML IV ONE (19:00)
--- NOTE | 2019-11-04 19:52 | Hospitalist Progress Note ---
Date of Service November 04, 2019 Assessment & Plan (1) Acute kidney injury: Peak Cr 1.8 earlier this admission; had resolved with normalization of Cr to <0.9 Initial RAMSES was sepsis-associated ATN / acute kidney injury. Then developed recurrent RAMSES a few days ago. Likely pre-renal state in setting of attempts at diuresis for volume overload. No evidence of hepatorenal syndrome. He is receiving serial doses of albumin to help with diuresis and maintain good perfusion to kidneys . Cr today 1.7 -- will give a dose of bumex IV and assess response to such. Likely transition back to PO diuretics tomorrow. (2) Alcoholic cirrhosis: with decompensation started back diuretics on 10/28 had received IV diuresis since now with acute kidney injury thus IV diuretics were held yesterday s/p paracentesis today; cell counts not c/w SBP giving albumin post-paracentesis consider resuming inderal at d/c if BP will allow resume PO diuretics - likely tomorrow pending AM labs (3) Osteomyelitis: Left ankle wound with exposed hardware at time of admission. biopsy-confirmed and culture-confirmed osteomyelitis of distal fibula. Culture with MSSA. Another culture w/ clostridium. S/P I&D and hardware removal on 10/19. Remains on rocephin 2gm daily via RUE PICC. 6-week course likely. NWB to LLE. CAM boot remains. Orthopedics and Dr Stevenson from plastics recommends follow-up with a Dr Torres at [facility] for plastics consultation. May need special flap procedure to close the wound. This has been set up - 11/16/19. On exam appears to have intact vascular supply with good pulses and cap refill. Wound vac remains and managed by wound care nurse. (4) Ribs, multiple fractures: b/l fractures were due to trauma from fall prior to admission pain control voltaren gel qid (5) Anemia: Multifactorial - advanced cirrhosis, acute blood loss anemia from left LE wound, etc. B12/folate wnl. TSH wnl. Iron studies most c/w anemia of chronic disease but some element of iron loss. cont Fe BID supplementation. H/H acceptable today. s/p multiple PRBCs this admission. CBC am (6) Rhabdomyolysis: Traumatic rhabdomyolysis - 2nd to fall at home with prolonged time on floor prior to admission. CK 5000 on admission Last CK was near-normal (7) Bacteremia: Coag neg staph in 1 set, and moraxella species from the 2nd set -- at time of admission. Repeat blood cx's were negative. Since he had multiple pathogens in various bottles uncertain of clinical significance of these. Likely contaminants. (8) Pneumonia: suspected aspiration due to altered mental status, laying on floor at home, etc resolved completed full course abx (9) Sepsis: likely 2nd to left ankle osteomyelitis sepsis resolved see discussion above Re: positive blood cx's at admission (10) Elevated troponin: Troponin peaked at 6.1 and trended downward Seen by cardiology - likely myocardial demand ischemia in setting of sepsis, fall, etc NOT an ACS/thrombotic event ECHO: EF 60-65%; no regional wall motion abnormalities; mild LVH (11) Altered mental status: had resolved following admission slightly confused today ammonia minimally elevated if confusion worsens would start lactulose (12) COPD (chronic obstructive pulmonary disease): controlled (13) Portal vein thrombosis: Completed nearly 6 months of Coumadin therapy. Was followed with Anticoagulation clinic at [facility] - Dr Nam. warfarin stopped after discussion with Dr Nam -- since he completed nearly 6 months of anticoagulation can STOP full anticoagulation he is on lovenox for DVT proph only (14) Hyponatremia: resolved (15) Candidiasis of mouth and esophagus: nystatin 5cc qid swish/swallow candidal rash groin -- nystatin Cream TID (16) DVT prophylaxis: lovenox 40mg daily daughter extensively updated today at bedside again discussed care plan including d/c to [facility] (or, if they desired, consideration of referral to LTACH) LTACH may be better option given complexity of his issues and high concern for decompensation again briefly touched on palliative care between 2 visits today - about 70 minutes of care time care also d/w social media director today Subjective saw patient twice today first on AM rounds 2nd was late in day (about 1830) - daughter was present for this visit during AM rounds patient had just returned from paracentesis 2 L removed w/o incident he stated he felt his abdomen "wasn't much better" he is quite bothered by the scrotal edema cont with left ankle pain during evening visit I reviewed the care plan w/ daughter discussed ? of pursuing LTACH if pt & daughter were amenable to such I explained that his care is incredibly complex and that the slightest issue could upset his cirrhosis and fluid-balance Review of Systems Constitutional: + fatigue and + anorexia; no fever and no chills Respiratory: + dyspnea on exertion; no cough Cardiovascular: no chest pain Gastrointestinal: + bloating; no nausea and no vomiting Genitourinary: + scrotal swelling Psychiatric: mild confusion at times Physical Exam Constitutional: + frail appearing; no acute distress, no altered mental status and + not well groomed ENMT: Mouth: + oral mucosal abnormality (irritation/erythema - slightly better today), + dry oral mucous membranes and + poor dentition Respiratory: Auscultation: + diminished lung sounds (bases) and + rales (bases ) Cardiovascular: Rate/Rhythm: regular rate and regular rhythm Heart Sounds: normal S1, normal S2 and + murmur (2/6 RUSB/LSB) Vessels: posterior tibial pulses present and dorsalis pedis pulses present; no JVD Extremities: + edema (2-3+ b/l legs - no change from prior) Gastrointestinal (Abdomen): Inspection/Auscultation: + abdomen distended (improved s/p paracentesis this am ) and + visible herniation (umbilical - reducible ) Percussion/Palpation: abdomen nontender, no guarding and no hepatosplenomegaly Skin: + pallor PICC RUE clean; wound vac in place left ankle Psychiatric: Orientation: alert, oriented to person and oriented to place seems slightly confused Results & Data Vital Signs (Past 12 Hours) Vital Signs Temp Pulse Pulse Resp BP Pulse Ox 11/04/19 17:40 36.5 C 79 18 137/69 97 11/04/19 15:37 96 11/04/19 15:12 36.7 C 78 18 123/53 L 96 11/04/19 14:31 36.6 C 80 18 127/53 L 95 11/04/19 13:24 36.4 C L 80 18 142/64 H 96 11/04/19 13:03 36.6 C 74 18 132/60 96 11/04/19 12:43 36.3 C L 73 18 126/60 99 Laboratory Results Laboratory Results - last 24 hr 11/04/19 11/04/19 11/04/19 05:36 05:36 05:36 WBC 5.17 RBC 2.22 L Hgb 7.8 L Hct 23.0 L MCV 103.6 H MCH 35.1 H MCHC 33.9 RDW Std Deviation 74.4 H RDW Coeff of Ramses 19.6 H Plt Count 113 L MPV 9.3 Immature Gran % (Auto) 0.4 Neut % (Auto) 51.4 Lymph % (Auto) 20.9 [place] % (Auto) 20.5 Eos % (Auto) 6.0 Baso % (Auto) 0.8 Immature Gran # (Auto) 0.02 Neut # (Auto) 2.66 Lymph # (Auto) 1.08 L [place] # (Auto) 1.06 H Eos # (Auto) 0.31 Baso # (Auto) 0.04 RBC Morphology Unremarkable PT 14.7 H INR 1.5 H Sodium 140 Potassium 4.1 Chloride 109 H Carbon Dioxide 26 Anion Gap 5.0 BUN 53 H Creatinine 1.73 H Est Cr Clr Drug Dosing 45.0 Est GFR ( Amer) 46.0 Est GFR (Non-Af Amer) 39.7 BUN/Creatinine Ratio 30.6 H Glucose 76 Calcium 7.9 L Total Bilirubin 1.5 H AST 27 ALT 15 Alkaline Phosphatase 107 Ammonia Total Protein 6.0 L Albumin 2.5 L Globulin 3.5 Albumin/Globulin Ratio 0.7 L Fluid Neutrophils % Fluid Lymphocytes % Fluid Eosinophils % Fluid Basophils % Fluid Meso/Macro/[place] % Peritoneal Color Peritoneal Appearance Peritoneal WBC Peritoneal RBC 11/04/19 11/04/19 05:36 Unknown WBC RBC Hgb Hct MCV MCH MCHC RDW Std Deviation RDW Coeff of Ramses Plt Count MPV Immature Gran % (Auto) Neut % (Auto) Lymph % (Auto) [place] % (Auto) Eos % (Auto) Baso % (Auto) Immature Gran # (Auto) Neut # (Auto) Lymph # (Auto) [place] # (Auto) Eos # (Auto) Baso # (Auto) RBC Morphology PT INR Sodium Potassium Chloride Carbon Dioxide Anion Gap BUN Creatinine Est Cr Clr Drug Dosing Est GFR ( Amer) Est GFR (Non-Af Amer) BUN/Creatinine Ratio Glucose Calcium Total Bilirubin AST ALT Alkaline Phosphatase Ammonia 41.0 H Total Protein Albumin Globulin Albumin/Globulin Ratio Fluid Neutrophils % 11 Fluid Lymphocytes % 22 Fluid Eosinophils % 0 Fluid Basophils % 0 Fluid Meso/Macro/[place] % 67 Peritoneal Color YELLOW Peritoneal Appearance HAZY Peritoneal WBC 329 H Peritoneal RBC < 3000 PG Care Time/CCT Total # of Minutes Spent Total Time Spent with Patient: Total time spent is greater than 50% in coordination of care (as documented) at patient's floor/unit and/or counseling patient: Prolonged Care Time Prolonged Care Time: Yes 70 minutes in total (1) Ribs, multiple fractures Encounter type: initial encounter Fracture type: closed Laterality: bilateral Qualified Code(s): S22.43XA - Multiple fractures of ribs, bilateral, initial encounter for closed fracture (2) Anemia Anemia type: other cause Other causes of anemia: other cause, not classified Qualified Code(s): D64.89 - Other specified anemias (3) Alcoholic cirrhosis Ascites presence: unspecified Qualified Code(s): K70.30 - Alcoholic cirrhosis of liver without ascites (4) Rhabdomyolysis Rhabdomyolysis type: non-traumatic Qualified Code(s): M62.82 - Rhabdomyolysis (5) Sepsis Sepsis acute organ dysfunction status: unspecified Sepsis type: sepsis due to unspecified organism Qualified Code(s): A41.9 - Sepsis, unspecified organism (6) Altered mental status Altered mental status type: unspecified Qualified Code(s): R41.82 - Altered mental status, unspecified (7) COPD (chronic obstructive pulmonary disease) COPD type: unspecified COPD Qualified Code(s): J44.9 - Chronic obstructive pulmonary disease, unspecified (8) Pneumonia Aspiration pneumonia type: unspecified Laterality: unspecified laterality Lung location: unspecified part of lung Pneumonia type: aspiration pneumonia Qualified Code(s): J69.0 - Pneumonitis due to inhalation of food and vomit (9) Osteomyelitis Laterality: left Osteomyelitis location: fibula Osteomyelitis type: other acute Qualified Code(s): M86.162 - Other acute osteomyelitis, left tibia and fibula
[2019-11-04] MEDS: SENNA 8.6 MG TAB PO SCH (20:53)
[2019-11-05] MEDS: ALBUMIN 25% 50 ML IV SCH ×6 (00:40→13:15)
[2019-11-05] MEDS: OXYCODONE HCL IR 5 MG TAB (IMMEDIATE RELEASE) PO PRN (01:01)
[2019-11-05 06:24] LABS: Basophils # (auto) 0.03 K/uL (0-0.2); Basophils % (auto) 0.6 %; Eosinophils # (auto) 0.23 K/uL (0-0.5); Hematocrit (blood only) 23.5 % (42-52); Hemoglobin 7.8 g/dL (14.0-18.0); Immature Granulocytes # (auto) 0.01 K/uL (0.00-0.02); Immature Granulocytes % (auto) 0.2 %; Lymphocytes # (auto) 1.07 K/uL (1.2-3.4); Lymphocytes % (auto) 23.1 %; Mean Corpuscular Hemoglobin 34.5 pg (25-34); Mean Corpuscular Hgb Conc 33.2 g/dL (32-36); Mean Platelet Volume 9.7 fL (7.4-10.4); Monocytes # (auto) 0.96 K/uL (0.11-0.59); Monocytes % (auto) 20.7 %; Neutrophils # (auto) 2.33 K/uL (1.4-6.5); Neutrophils % (auto) 50.4 %; Platelet Count 125 K/uL (130-400); RDW Coefficient of Variation 19.4 % (11.5-14.5); RDW Standard Deviation 73.6 fL (36.4-46.3); Red Blood Count 2.26 M/uL (4.7-6.1); White Blood Count 4.63 K/uL (4.8-10.8)
[2019-11-05 06:38] LABS: INR 1.5 (0.9-1.1); Prothrombin Time 14.6 Seconds (9.0-12.0)
[2019-11-05 06:56] LABS: BUN Creatinine Ratio 28.8 (10-20); Calcium 8.2 mg/dl (8.5-10.1); Creatinine Clr Calc Pharmacy 41.4 ml/min; Est GFR (African American) 41.6; Est GFR (Non-African American) 35.9; Magnesium 2.5 mg/dl (1.8-2.4); Potassium 4.3 mmol/L (3.5-5.1)
[2019-11-05 07:09] LABS: Bilirubin,Total 1.5 mg/dl (0.2-1); Globulin 3.1 gm/dl (2.5-4.0); Total Protein 6.1 gm/dl (6.4-8.2)
[2019-11-05 07:27] LABS: RBC Morphology Unremarkable
[2019-11-05] MEDS: PANTOprazole 40 MG TAB PO SCH (09:22)
[2019-11-05] MEDS: MAGNESIUM OXIDE 400 MG TAB PO SCH (09:22)
[2019-11-05] MEDS: CHOLECALCIFEROL 1,000 UNITS 25 MCG TAB PO SCH (09:23)
[2019-11-05] MEDS: MULTIVITAMIN TAB PO SCH (09:23)
[2019-11-05] MEDS: FAMOTIDINE 20 MG TAB PO SCH (09:23)
[2019-11-05] MEDS: MUPIROCIN 2% OINT 22 GM TUBE EXT SCH (09:23)
[2019-11-05] MEDS: FERROUS SULFATE 325 MG TAB PO SCH (09:23)
[2019-11-05] MEDS: NYSTATIN SUSP 500,000 U/5 ML UDC PO SCH ×2 (09:24→13:29)
[2019-11-05] MEDS: NYSTATIN CR 15 GM TUBE EXT SCH ×2 (09:24→13:29)
[2019-11-05] MEDS: DOCUSATE SODIUM 100 MG CAP PO SCH (09:24)
[2019-11-05] MEDS: DICLOFENAC SOD 1% GEL 100 GM TUBE EXT SCH ×2 (09:25→12:24)
[2019-11-05] MEDS ORDERED: FUROSEMIDE 40 MG TAB PO ONE (12:45)
--- NOTE | 2019-11-05 14:26 | Progress Notes ---
DATE: 11/05/2019 No major changes. Labs noted. Hemoglobin steady at about 7.8. There is some serous drainage from the wound. There is exposed bone, but there is increased granulation tissue. Some maceration around the edges. Plan is for him to be transferred when bed available and insurance approved. He will continue the wound VAC. Fracture boot with nonweightbearing, elevation of the leg. He has an appointment with Dr. Brandon Torres at [facility] approximately 11/16. Subsequent to that visit and Dr. Torres's assessment, he will return to see me. Until then, he will continue the antibiotics, wound VAC, fracture boot, nonweightbearing, elevation.
--- NOTE | 2019-11-05 15:03 | Discharge Summary ---
Date of Service date of admission - October 16, 2019 date of discharge - November 05, 2019 Admission HPI Per Admitting Provider Mr. Fortune is a 69 y/o male with PMHx of Alcoholic Cirrhosis, Chronic Diastolic CHF, Pulmonary HTN, COPD, PUD, Portal Vein Thrombosis on Coumadin, HTN, and Ane kobe who presents to the ED after being found down for an unknown period of time. History largely obtained from daughter at bedside. Daughter states she dropped her father off at home on [address] and today is the first contact since that time. Patient was found to have fallen in the bathroom which resulted in pulling the sink off the wall. He was found in 2-3 inches of water when found and appeared confused. Daughter states there was a tobacco chew in his mouth when she found him that was dried up. It is not certain how long he was on the floor. He was found to have suspected pneumonia on imaging, rhabdomyolysis, elevated troponin. Patient is alert and states he hurts all over and is restless. Minimal conversation and largely mumbling. Due to multiple co- morbidities and BP trending down will monitor in ICU given risk of decompensation. Principal Diagnosis 1. traumatic rhabdomyolysis 2nd to fall 2. sepsis 2nd to left ankle osteomyelitis 3. severe end-stage cirrhosis Discharge Exam Constitutional + frail appearing; no acute distress, no altered mental status and + not well groomed ENMT Mouth: + oral mucosal abnormality (irritation/erythema - thrush?), + dry oral m ucous membranes and + poor dentition Respiratory no respiratory distress Auscultation: + diminished lung sounds (bases) and + rales (bases ) Cardiovascular Rate/Rhythm: regular rate and regular rhythm Heart Sounds: normal S1, normal S2 and + murmur (2/6 RUSB/LSB) Vessels: posterior tibial pulses present and dorsalis pedis pulses present; no JVD Extremities: + edema (3+ b/l legs) Gastrointestinal (Abdomen) Inspection/Auscultation: + visible herniation (umbilical - reducible ) Percussion/Palpation: abdomen nontender, no guarding and no hepatosplenomegaly body wall edema present Musculoskeletal PICC line in place - right arm - clean, intact Skin + pallor small ulcer lateral right leg, just below knee; large wound, lateral aspect of left ankle, with wound vac in place Neurologic Motor/Sensory: no asterixis Psychiatric A+Ox3, euthymic affect Genitourinary + hydrocele, + penile swelling and + scrotal swelling (severe) Discharge Data Allergies Allergy/AdvReac Type Severity Reaction Status Date / Time terazosin Allergy Severe PRIAPISM Verified 10/16/19 17:11 spironolactone Allergy Mild Unknown Verified 10/16/19 17:11 trazodone AdvReac Unknown Unknown Verified 10/16/19 17:11 Consultations 1. Infectious Diseases 2. Plastic surgery 3. [facility] 4. [facility] Neph[facility] 5. PT, OT 6. [facility] Cardiology 7. Critical Care 8. Wound Care Procedures Performed 1. Operation Date: 10/19/19 - Left Ankle - Removal Hardware - Markie Hathaway MD Left Ankle - Incision and Drainage - Markie Hathaway MD 2. echocardiogram - * EF 60-65% * no wall motion abnormalities * intact valve function 3. PRBCs x 1 unit 4. u/s-guided paracentesis with removal of 2 liters fluid 5. RUE PICC line Ordered Studies CT abd pelvis IV con only Stat CT cervical spine wo con Stat CT chest w con Stat CT head/brain wo con Stat US scrotum/testicle Routine Hospital Course (1) Acute kidney injury: Creatinine 1.8 at time of admission; had resolved with normalization of Creatinine to <0.9 Initial RAMSES was sepsis-associated ATN / acute kidney injury. Then developed recurrent RAMSES in setting of diuresis for volume overload. Seen by nephrology with the second acute kidney injury - not felt to be hepatorenal syndrome. Gwny-sdc-dary he received several doses of albumin to help promote diuresis. At time of discharge Creatinine is 1.8. He was transitioned back to oral lasix 40mg twice daily. Amiloride was NOT continued at discharge. Dr Fortino Nicholson - [facility] Nephrology - wants to continue following Mr Fortune in the clinic. Recommend follow-up with Dr Nicholson within 1 week of discharge if possible. (2) Alcoholic cirrhosis: With decompensation and volume overload. Diuretics had been held early on in his stay when he was septic and had acute kidney injury. Diuretics were resumed on 10/28/19. Despite daily IV diuretics (along with IV albumin) attempts at volume removal were not successful. He developed an acute kidney injury while attempting diuresis (see RAMSES above). Underwent paracentesis on 11/04/2019. Cell counts were not c/w SBP and culture remained negative. 2 L of fluid was removed. At discharge recommend - 1. consider resuming inderal (albeit perhaps at lower dose than previous) if BPs will allow 2. lasix 40mg twice daily 3. 2-gram salt restriction 4. daily weights 5. follow-up with [facility] GI within 1-2 weeks Patient and his daughter were heavily counseled that it will be exceptionally difficult to manage his volume status outside the hospital. He remains at high risk of ongoing decompensation, need for repeat paracentesis, hepatorenal syndrome, and further decline. Palliative care was briefly discussed with patient and his daughter prior to discharge. Consider palliative care consultation at [facility]. (3) Rhabdomyolysis: Traumatic rhabdomyolysis - 2nd to fall at home with prolonged time on floor prior to admission. CK 5000 on admission. Last measured CK level was about 400. (4) Osteomyelitis: At time of admission the patient had a left ankle wound with exposed hardware from a prior ankle surgery. Patient ultimately had biopsy-confirmed and culture-confirmed osteomyelitis of the distal fibula. Culture with MSSA. Another culture w/ clostridium. S/P I&D and hardware removal on 10/19/[address] Markie Hathaway. Was seen by infectious diseases, and a 6-week course of 2 grams rocephin daily was advised. Has RUE PICC line in place for such. He has a wound vac in place to the left ankle wound. Non-weight bearing status to LLE. CAM boot should be worn when he is out of bed. Orthopedics and Dr Swathi Stevenson from plastics recommends follow-up with Dr Donal Torres at [facility] for plastics consultation. May need special flap procedure to close the wound. This has been set up for 11/16/19. On exam appears to have intact vascular supply with adequate pulses and cap refill. Patient will need at least weekly CBC, CMP, and ESR for the duration of his antibiotic course. (5) Ribs, multiple fractures: bilateral. fractures were due to trauma from fall prior to admission. (6) Anemia: Multifactorial - advanced cirrhosis, acute blood loss anemia from left ankle wound, etc. B12/folate wnl. TSH wnl. Iron studies most c/w anemia of chronic disease but he indeed had blood loss from his wound. Continue ferrous sulfate supplementation twice daily. Discharge hemoglobin was 7.8 - was at this level for 3 days prior to discharge. Will need, at minimum, weekly CBC at senior care. (7) Bacteremia: Coag neg staph in 1 set, and moraxella species from the 2nd set -- at time of admission. Repeat blood cultures were negative. Since he had multiple pathogens in various bottles these were felt to be contaminants. (8) Pneumonia: Suspected aspiration pneumonia due to altered mental status, laying on floor at home, etc Resolved clinically. Completed full course antibiotics for such. (9) Sepsis: Likely 2nd to left ankle osteomyelitis. Pneumonia may have contributed as well. See discussion above Re: positive blood cx's at admission. (10) Elevated troponin: Troponin peaked at 6.1 and trended downward. Seen by cardiology early in the hospitalization - likely myocardial demand ischemia in setting of sepsis, fall, rhabdomyolysis, etc. Was felt NOT to be an ACS/thrombotic event. ECHO: EF 60-65%; no regional wall motion abnormalities; mild LVH. (11) Altered mental status: Had resolved following admission. Was metabolic encephalopathy in setting of sepsis, etc. Ammonia levels were largely normal during the stay. Intermittently later on during the stay he had slight confusion only. (12) COPD (chronic obstructive pulmonary disease): Controlled during the hospitalization. Continue breo. (13) Portal vein thrombosis: Completed nearly 6 months of Coumadin therapy. Was followed with Anticoagulation clinic at [facility] - Dr Nam - prior to this hospitalizaton. Coumadin was stopped after discussion with Dr Nam since he had completed nearly 6 months of anticoagulation, the presence of periodic oozing of blood from the left ankle wound, etc. He remains on lovenox 40mg once daily for DVT prophylaxis only. (14) Hyponatremia: 2nd to volume overloaded state. Resolved. Discharge Na level - 142. (15) Candidiasis of mouth and esophagus: nystatin 5cc qid swish/swallow candidal rash groin -- nystatin Cream TID (16) Scrotal edema: Severe. 2nd to anasarca/volume overload from decompensated cirrhosis. Also 2nd to bilateral hydroceles as seen on ultrasound. Continue scrotal support. (17) DVT prophylaxis: lovenox 40mg daily - would continue as long as he is nonweightbearing to left leg. (18) High risk for readmission: Multiple discussions were held with the patient and his daughter regarding his disposition. We discussed the option of an LTACH but due to the long distance to the closest location it was felt to not be an option at this time. Patient & his daughter were counseled that he is at extremely high risk of readmission due to his frail/tenuous status, end-stage cirrhosis, and numerous other problems. He will transfer to [facility] for ongoing care. He will need follow-up with [facility] Nephrology (Dr Nicholson), [facility]astics (Dr Torres, on 11/16/19), Dr Hathaway at [facility], the [facility] Wound care center for wound vac management, and [facility] GI (Betina Agrawal or Freda). Consider palliative care consultation upon admission to [facility] given his end-stage cirrhosis & other comorbidities. Total Time Total Time Spent Total Time Spent (In Minutes): 60 Total Time Includes: Examination of the Patient, Discharge Planning, Medication Reconciliation and Communication With Other Providers (social work; nephrology; orthopedics; receiving attending MD at [facility] ) Discharge Plan Discharge Items Patient Disposition: Transfer Halfway Fac Reason For Visit: RHABDOMYOLYSIS, PNEUMONIA, ELEVATED TROPONIN Discharge Diagnosis: 1. rhabdomyolysis - due to fall - resolved 2. advanced cirrhosis with ascites and severe edema 3. left ankle wound with osteomyelitis; now with wound vac 4. acute kidney injury - ongoing 5. pneumonia - resolved 6. anemia - ongoing 7. severe scrotal edema with bilateral hydroceles 8. COPD Condition on Discharge: Fair Activity: As commented below Activity Comment: non-weightbearing to LLE; when out of bed please wear CAM boot Non-emergency contact: Primary Care Provider, Surgeon, Specialist, Garbage Truck Driver and Can Sorter Call non-emergency contact if: you have any medication questions, your symptoms worsen, your pain is not controlled, your pain is worsening, your pain is unusual for you, your pain is concerning for you and you have a fever Follow-up/Referrals: Cara Flowers MD [Primary Care Provider] - Fortino Nicholson DO [Physician] - (see Dr Nicholson in 5 days post-discharge) Yobany Agrawal [Physician] - (see Dr Agrawal in 7-10 days after discharge) Markie Hathaway MD [Surgeon] - (see Dr Hathaway or his PA, Radha Tripp, within 1-2 weeks ) Donal Torres MD [Outside Practitioners] - 11/16/19 8:30 am (An appointment has been schduled with the [facility] clinic for follow-up on wound vac and possible surgical options in the future. Please arrive by 8:15am. Call the clinic with any questions or concerns.) Diet: Low Sodium (2gm) Fluids: 1800ml (7 cups) Addtl Attending Provider Instructions: Patient was treated for the problems listed in "discharge diagnoses" above. Recommendations - 1. twice weekly CBC, CMP, and INR; please obtain first set of labs on 11/07/2019. Check labs every Friday and every Friday. Results to medical device sales consultant. 2. weekly ESR. Check every Friday. First level on 11/10/2019. Results to medical device sales consultant. 3. daily weights please. Notify medical device sales consultant of weight gain of more than 3 pounds in 1-2 days. 4. feliz catheter was placed on 10/16/19. Please replace on ~11/16/19. 5. CAM boot to left leg when out of bed, in chair, etc. 6. again 100% non-weight bearing status to left leg when out of bed. 7. continue wound vac to left ankle wound as directed by the wound care team. 8. right arm PICC line care per protocol. Follow-up - see separate section. Additionally he should see the [facility] within 1 week for recheck of left ankle wound. Pending Studies at Discharge: No Stand-Alone Forms: My [facility] Skilled Items Patient informed of condition?: Yes DNR: No Discharge Level of Care: Skilled Communicable Disease: No Discharge Prognosis: Other Lines: PICC Urinary Catheter: Yes Medications and DC Order Prescriptions: New nystatin 100,000 unit/mL Suspension 5 ml PO QID 7 Days Qty: 200 RF: 0 ipratropium-albuterol 0.5 mg-3 mg(2.5 mg base)/3 mL Solution For Nebulization 3 ml inhalation Q4H PRN (Reason: shortness of breath or wheezing) Qty: 180 RF: 0 enoxaparin 40 mg/0.4 mL Syringe 40 mg subcut DAILY@1700 Qty: 30 RF: 0 oxycodone 5 mg Tablet 5 mg PO Q4H PRN (Reason: pain) Qty: 10 RF: 0 sennosides [Senokot] 8.6 mg Tablet 17.2 mg PO HS Qty: 60 RF: 0 benzonatate [Tessalon Perles] 100 mg Capsule 100 mg PO TID PRN (Reason: cough) Qty: 30 RF: 0 multivitamin [Daily-Verena] Tablet 1 tab PO QAM Qty: 30 RF: 2 Desenex 2 % Powder 1 applic EXT TID Qty: 45 RF: 0 cholecalciferol (vitamin D3) 25 mcg (1,000 unit) Capsule 2,000 unit PO QAM Qty: 60 RF: 2 ceftriaxone 2 gram recon soln 2 gm IV DAILY 28 Days Qty: 28 RF: 0 Lactinex 1 million cell tablet,chewable 3 tab PO TID 30 Days Qty: 270 RF: 0 Continued Anoro Ellipta 62.5-25 mcg/actuation Blister With Device 1 inh INHALATION DAILY RF: 0 Changed furosemide 40 mg tablet 40 mg PO BID17 Qty: 180 RF: 1 pantoprazole 40 mg tablet,delayed release (DR/EC) 40 mg PO BID Qty: 90 RF: 1 ferrous sulfate 325 mg (65 mg iron) tablet 325 mg PO BID Qty: 60 RF: 5 Discontinued loperamide [Imodium A-D] 2 mg tablet 2 mg PO Q2H PRN (Reason: Diarrhea) RF: 0 amiloride 5 mg tablet 10 mg PO QAM 90 Days Qty: 180 RF: 1 propranolol 60 mg tablet 60 mg PO BID Qty: 180 RF: 1 warfarin 1 mg tablet See Rx Instructions PO UD Qty: 90 RF: 1 ketoconazole 2 % cream 1 appln TOP BID 28 Days Qty: 30 RF: 1 Discharge Orders: Discharge Order (Routine); Ordered 11/05/19 Ordered By: Peyman Rodriguez Admission Data Admit Date/Time: 10/16/19 18:37 Attending Provider: Peyman Rodriguez Admit Provider: Edinson Soni Primary Care Provider: Cara Flowers Other Providers: Mikala Aponte ; Mirianaguila, ; Radha Odom ; Swathi Echols ; Yobany Agrawal ; Fortino Nicholson Other Interventions: Discharge Summary Assessment (RN) Last Done: 11/05/19 13:52 DC Date/Time DO NOT enter until pt leaves facility: 11/05/19 15:32
== END 2019-11-05 15:32 | DRG 853 ==
LOC: ED 15:05 → SUATTDRO 18:37 → 1E 18:37 → 2S 10-17 10:26 → 4W 10-24 18:09 → 3N 10-28 02:30

== ENCOUNTER 2019-12-30 10:57 | Inpatient (IN) ==
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
[2019-12-30] MEDS ORDERED: MoRPHine SULFATE 2 MG/ML CARP IV STA ×2 (12:02→12:39)
[2019-12-30 12:06] LABS: Basophils # (auto) 0.03 K/uL (0-0.2); Basophils % (auto) 0.5 %; Eosinophils # (auto) 0.06 K/uL (0-0.5); Eosinophils % (auto) 1.1 %; Hematocrit (blood only) 35.2 % (42-52); Hemoglobin 11.6 g/dL (14.0-18.0); Immature Granulocytes # (auto) 0.01 K/uL (0.00-0.02); Immature Granulocytes % (auto) 0.2 %; Lymphocytes # (auto) 0.39 K/uL (1.2-3.4); Mean Corpuscular Hemoglobin 33.7 pg (25-34); Mean Corpuscular Volume 102.3 fL (80-100); Mean Platelet Volume 10.9 fL (7.4-10.4); Monocytes # (auto) 0.52 K/uL (0.11-0.59); Monocytes % (auto) 9.4 %; Neutrophils # (auto) 4.53 K/uL (1.4-6.5); Neutrophils % (auto) 81.8 %; Platelet Count 158 K/uL (130-400); RDW Coefficient of Variation 15.2 % (11.5-14.5); RDW Standard Deviation 57.3 fL (36.4-46.3); Red Blood Count 3.44 M/uL (4.7-6.1); White Blood Count 5.54 K/uL (4.8-10.8)
[2019-12-30 12:31] LABS: Alanine Aminotransferase 21 U/L (12-78); Albumin Globulin Ratio 0.7 (0.9-2); Alkaline Phosphatase 166 U/L (45-117); Aspartate Aminotransferase 42 U/L (15-37); BUN Creatinine Ratio 16.2 (10-20); Bilirubin,Total 2.6 mg/dl (0.2-1); Blood Urea Nitrogen 17 mg/dl (7-18); Calcium 8.9 mg/dl (8.5-10.1); Carbon Dioxide 23 mmol/L (21-32); Chloride 109 mmol/L (98-107); Est GFR (African American) 87.1; Est GFR (Non-African American) 75.2; Globulin 4.2 gm/dl (2.5-4.0); Glucose 148 mg/dl (70-99); Potassium 4.3 mmol/L (3.5-5.1); Sodium 138 mmol/L (136-145); Total Protein 7.2 gm/dl (6.4-8.2)
--- NOTE | 2019-12-30 13:18 | Ultrasound Report ---
US abdomen ltd hernia CLINICAL HISTORY: 69 years-old Male presenting with R sided hernia pain. TECHNIQUE: Real-time grayscale ultrasound imaging of the right inguinal region was performed for a fo cused evaluation at the site of clinical concern. Color Doppler ultrasound imaging was also performed . COMPARISON: CT from 12/28/2019. FINDINGS: In the right inguinal canal, there is bowel and herniated fat. The bowel is decompressed. No signific ant fluid. Mild hyperechogenicity of the herniated fat. Notably, no small bowel is evident in the her rafia on the recent CT. The herniated loops do not appear to peristalse. This was nonreducible with son ographic probe compression. IMPRESSION: 1. Nonreducible bowel containing right inguinal hernia. Strangulation not excluded. Findings are new since recent CT. ACT 112: Negative or not required by law. Electronically signed by: Markie Hobbs M.D. 12/30/2019 1:17 PM
[2019-12-30] MEDS ORDERED: PROPOFOL IV EMULSION 10 MG/ML 20 ML VIAL IV ONE (14:00)
[2019-12-30] MEDS ORDERED: ONDANSETRON INJ 2 MG/ML 2 ML VIAL ONE ×2 (14:00→14:05)
[2019-12-30] MEDS ORDERED: DEXAMETHASONE SOD INJ 4 MG/ML VIAL ONE (14:00)
[2019-12-30] MEDS ORDERED: LIDOCAINE 2% 2 ML VIAL/AMP(20MG/ML) INFIL ONE (14:00)
[2019-12-30] MEDS ORDERED: LACTATED RINGER'S 1,000 ML IV SCH (14:00)
[2019-12-30] MEDS ORDERED: ROCURONIUM BROMIDE 10 MG/ML 5 ML VIAL ONE (14:00)
[2019-12-30] MEDS ORDERED: fentaNYL citrate 100 MCG/2 ML VIAL ONE ×2 (14:01)
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
[2019-12-30] MEDS ORDERED: BUPIVACAINE/EPINEPHRINE 0.5% MPF 1:200,000 10 ML VIAL ONE (14:24)
[2019-12-30] MEDS ORDERED: ceFAZolin 2000MG 2,000 MG/15 ML SYR IV ONE (14:45)
[2019-12-30] MEDS ORDERED: ceFAZolin 2,000 MG/15 ML IV PUSH IV ONE (14:46)
[2019-12-30] MEDS ORDERED: ETOMIDATE 2 MG/ML 20 ML VIAL IV ONE (15:08)
[2019-12-30] MEDS ORDERED: SODIUM CHLORIDE 0.9% INJ 10 ML VIAL ONE (15:08)
[2019-12-30] MEDS ORDERED: ePHEDrine sulfate 50 MG/ML AMP IV PRN (16:18)
[2019-12-30] MEDS ORDERED: ONDANSETRON INJ 2 MG/ML 2 ML VIAL IV PRN ×2 (16:18→17:53)
[2019-12-30] MEDS ORDERED: HYDROmorphone INJ 1 MG/ML SYRINGE IV PRN (16:18)
[2019-12-30] MEDS ORDERED: ATROPINE SULFATE 0.1 MG/ML 10ML SYR IV PRN (16:18)
[2019-12-30] MEDS ORDERED: fentaNYL citrate 100 MCG/2 ML VIAL IV PRN (16:18)
--- NOTE | 2019-12-30 16:18 | Procedure Note ---
Procedure Note Date of Service December 30, 2019 Radial arterial line placed in OR 8 prior to induction in preparation for incarcerated hernia repair with Dr. Fernandes. Left wrist prepped with chlorhexidine and draped with sterile towels. Site infiltrated with 0.5 cc of 1% lidocaine. 20 G angiocath placed under sterile technique utilizing sterile gloves, surgical hats and masks. Catheter threaded using seldinger technique with return of pulsatile, bright red blood. Site covered with occlusive dressing and taped in place. Waveform consistent with correct arterial placement. After placement, fingers of procedural hand had normal perfusion. Patient tolerated procedure well without complications. Miladis Mariscal MD, PhD Anesthesiologist Coding
[2019-12-30] MEDS ORDERED: NEOSTIGMINE METHYLSULFATE 5 MG/5 ML SYR ONE (16:27)
[2019-12-30] MEDS ORDERED: GLYCOPYRROLATE 0.2 MG/ML VIAL ONE ×2 (16:27)
[2019-12-30] MEDS ORDERED: ESMOLOL HCL INJ 10 MG/ML 10ML VIAL IV ONE (16:30)
--- NOTE | 2019-12-30 16:38 | Operative Report ---
PG Post Operative Report Pre & Post Diagnosis Operation Date: 12/30/19 08:50 Pre-Op Diagnosis: Right Incarcerated Inguinal Hernia Post-Op Diagnosis: Right Incarcerated Inguinal Hernia;cord lipoma I identified the patient and participated in the time-out.: Yes Procedure Operation Date: 12/30/19 08:50 Actual Procedures p Open Right Incarcerated Inguinal Hernia Repair(Right) ( with plug/patch mesh). excision of cord lipoma - Nick Fernandes DO Surgeon Nick Fernandes DO Student Counsellor jimi Jeffrey Estimated Blood Loss 10 Findings Consistent with Post-Op Diagnosis Specimens hernia sac Description of Procedure After informed consent was obtained the patient was taken the operating room and placed in supine position. After successful placement of the laryngeal mask airway the groin was shaved and sterilely prepped and draped in usual fashion. An inguinal incision was made with a 15 blade scalpel and carried down through the soft tissue using electrocautery. The external oblique aponeurosis was skeletonized. A fresh blade was used to make an incision and then Metzenbaum scissors were used to extend this distally through the external ring as well as for several centimeters proximally. The hernia was massive and incarcerated probably a foot of small bowel. After I opened the external ring I was then able to manually reduce the contents of the hernia sac. Next, I used blunt finger dissection to free up the cord and cord structures. I was able to gently tease the cord off of the pubic bone and placed a [place] drain around it. There was no evidence of a direct hernia. We inspected the cord and cord structures using blunt dissection with small amounts of electrocautery. There was a very large chronic hernia sac which we were able to skeletonize back to its neck. Next I opened the hernia sac to inspect the bowel. I was able to grasp the small bowel with a Dre clamp and pull it out of the hernia sac. There was no evidence of ischemia or infarction. I then reduced the bowel and close the sac by clamping it at its neck dividing it and tying it off with a 2-0 Vicryl tie. The neck of the sac was then reduced back into the abdominal cavity. There is also a moderate sized cord lipoma. We clamped it off at its base divided and tied off with 2-0 Vicryl as well. We then thoroughly irrigated the wound. Because of the large size of the defect I decided to use a plug and patch technique. A polypropylene plug was placed into the hernia defect and secured laterally the shelving portion of Poupart's ligament medially along the midline musculature in 360 degrees. Next, I used a polypropylene lebron-holed mesh as an onlay. It was secured distally to Reid's ligament, laterally along the shelving portion of Poupart's ligament and medially along the midline musculature. 0 Ethibond was used for the suturing. The "arms" of the mesh were wrapped around behind the cord and cord structures and again secured to underlying muscle. The mesh laid nice and flat and tension-free and did not impinge on the cord structures themselves. We thoroughly irrigated the wound. There was adequate hemostasis. I injected Marcaine around the edges of the mesh for postoperative analgesia. We then closed the external oblique aponeurosis with 2-0 Vicryl in a running fashion. Soft tissue was irrigated and closed in multiple layers using 3-0 Vicryl for the deep layers and 4-0 Monocryl for the skin. Some additional Marcaine was injected around the skin incision. We then used a skin glue as a dressing. The patient was awaken extubated and transferred to recovery in stable condition. My physician's dietary assistant was present throughout the entire procedure. She helped prep the patient. Helped with retraction throughout the case to aid my dissection, assisted with wound closure as well as dressing placement. I attest to the content of the Intraoperative Record and any orders documented therein. Any exceptions are noted below. I attest to the content of the Intraoperative Record and any orders documented therein. Any exceptions are noted below.
--- NOTE | 2019-12-30 17:14 | Anesthesiology Progress Note ---
Date of Service December 30, 2019 Anesthesia Post Procedure Vital Signs Vital Signs: Temp Pulse Pulse Pulse Resp BP BP 12/30/19 17:05 70 12 180/91 H 12/30/19 16:55 70 12 186/90 H 12/30/19 16:46 36.5 C 78 14 195/95 H 12/30/19 14:35 36.7 C 64 22 160/64 H 12/30/19 14:00 66 16 147/67 H 12/30/19 11:01 36.4 C L 49 L 20 127/69 Pulse Ox 12/30/19 17:05 100 12/30/19 16:55 99 12/30/19 16:46 98 12/30/19 14:35 98 12/30/19 14:00 99 12/30/19 11:01 99 Pain Intensity Right Groin: Pain Intensity: 0 Transfer of Care Handoff Completed per policy Notes Mental Status: see notes below Patient Amnestic to Procedure: Yes Nausea / Vomiting: adequately controlled Pain: adequately controlled Airway Patency, RR, SpO2: stable & adequate BP & HR: stable & adequate Hydration State: stable & adequate Anesthetic Complications: no major complications apparent Notes: Pt is arousable and denies pain. He appears to be back to his preoperative baseline level of confusion.
[2019-12-30] MEDS ORDERED: oxyCODONE HCL IR 5 MG TAB (IMMEDIATE RELEASE) PO PRN (17:53)
[2019-12-30] MEDS ORDERED: MoRPHine SULFATE 10 MG/ML CARP/VIAL IV PRN (17:53)
[2019-12-30] MEDS ORDERED: ALBUT/IPRATROP 3MG/0.5MG NEB 3 ML VIAL INH PRN (17:53)
[2019-12-30] MEDS ORDERED: ACETAMINOPHEN 325 MG TAB PO PRN (17:53)
[2019-12-30] MEDS ORDERED: MoRPHine SULFATE 4 MG/ML 1 ML CARP\\VIAL IV PRN (17:53)
[2019-12-30] MEDS: LACTATED RINGER'S 1,000 ML IV SCH (19:57)
[2019-12-30] MEDS: oxyCODONE HCL IR 5 MG TAB (IMMEDIATE RELEASE) PO PRN (19:57)
[2019-12-30] MEDS: PANTOprazole 40 MG TAB PO SCH (21:21)
[2019-12-30] MEDS: DOXYCYCLINE HYCLATE 100 MG CAP PO SCH (21:21)
[2019-12-31] MEDS: oxyCODONE HCL IR 5 MG TAB (IMMEDIATE RELEASE) PO PRN ×3 (02:29→18:23)
[2019-12-31 07:19] LABS: Hematocrit (blood only) 32.6 % (42-52); Hemoglobin 10.7 g/dL (14.0-18.0); Mean Corpuscular Hemoglobin 33.9 pg (25-34); Mean Corpuscular Hgb Conc 32.8 g/dL (32-36); Mean Corpuscular Volume 103.2 fL (80-100); RDW Coefficient of Variation 15.3 % (11.5-14.5); RDW Standard Deviation 58.4 fL (36.4-46.3); Red Blood Count 3.16 M/uL (4.7-6.1); White Blood Count 7.93 K/uL (4.8-10.8)
[2019-12-31 07:29] LABS: BUN Creatinine Ratio 20.1 (10-20); Calcium 8.5 mg/dl (8.5-10.1); Creatinine Clr Calc Pharmacy 83.2 ml/min; Est GFR (African American) 103.8; Est GFR (Non-African American) 89.5; Potassium 4.3 mmol/L (3.5-5.1)
[2019-12-31 07:43] LABS: Mean Platelet Volume 11.7 fL (7.4-10.4); Platelet Count 99 K/uL (130-400)
[2019-12-31 07:44] LABS: Basophils # (auto) 0.06 K/uL (0-0.2); Basophils % (auto) 0.8 %; Echinocytes 1+; Eosinophils # (auto) 0.21 K/uL (0-0.5); Eosinophils % (auto) 2.6 %; Immature Granulocytes # (auto) 0.01 K/uL (0.00-0.02); Immature Granulocytes % (auto) 0.1 %; Lymphocytes # (auto) 1.06 K/uL (1.2-3.4); Lymphocytes % (auto) 13.4 %; Monocytes # (auto) 1.15 K/uL (0.11-0.59); Monocytes % (auto) 14.5 %; Neutrophils # (auto) 5.44 K/uL (1.4-6.5); Neutrophils % (auto) 68.6 %; Platelet Estimate Decreased (Normal); Schistocytes Occasional
--- NOTE | 2019-12-31 08:33 | Anesthesiology Progress Note ---
Date of Service December 31, 2019 Anesthesia Post Procedure Vital Signs Vital Signs: Temp Pulse Pulse Pulse Pulse Pulse Resp 12/31/19 07:30 37.1 C 82 14 12/31/19 02:51 36.8 C 73 16 12/30/19 23:16 36.6 C 76 16 12/30/19 21:14 12/30/19 21:12 36.5 C 81 20 12/30/19 19:45 36.6 C 74 16 12/30/19 18:50 36.2 C L 67 18 12/30/19 18:15 36.6 C 65 16 12/30/19 17:45 36.6 C 73 15 12/30/19 17:25 37.1 C 66 15 12/30/19 17:15 67 15 12/30/19 17:05 70 12 12/30/19 16:55 70 12 12/30/19 16:46 36.5 C 78 14 12/30/19 14:35 36.7 C 64 22 12/30/19 14:00 66 16 12/30/19 11:01 36.4 C L 49 L 20 BP BP Pulse Ox 12/31/19 07:30 148/68 H 91 12/31/19 02:51 135/61 95 12/30/19 23:16 149/63 H 97 12/30/19 21:14 95 12/30/19 21:12 139/59 L 99 12/30/19 19:45 151/68 H 99 12/30/19 18:50 146/68 H 98 12/30/19 18:15 170/78 H 98 12/30/19 17:45 165/77 H 96 12/30/19 17:25 159/71 H 98 12/30/19 17:15 166/77 H 99 12/30/19 17:05 180/91 H 100 12/30/19 16:55 186/90 H 99 12/30/19 16:46 195/95 H 98 12/30/19 14:35 160/64 H 98 12/30/19 14:00 147/67 H 99 12/30/19 11:01 127/69 99 Pain Intensity Right Groin: Pain Intensity: 9 Notes Mental Status: alert / awake / arousable and participated in evaluation Patient Amnestic to Procedure: Yes Nausea / Vomiting: adequately controlled Pain: adequately controlled Airway Patency, RR, SpO2: stable & adequate BP & HR: stable & adequate Hydration State: stable & adequate Anesthetic Complications: no major complications apparent and Pt Satisfied with anesthetic care
[2019-12-31] MEDS: UMECLIDINIUM/VILANTEROL 62.5/25MCG 7 PUFFS/INHALER INH SCH (09:17)
[2019-12-31] MEDS: MULTIVITAMIN TAB PO SCH (09:17)
[2019-12-31] MEDS: DOXYCYCLINE HYCLATE 100 MG CAP PO SCH ×2 (09:17→20:16)
[2019-12-31] MEDS: aMILoride HCL 5 MG TAB PO SCH (09:17)
[2019-12-31] MEDS: PANTOprazole 40 MG TAB PO SCH ×2 (09:18→20:16)
[2019-12-31] MEDS: LACTATED RINGER'S 1,000 ML IV SCH (09:19)
--- NOTE | 2019-12-31 11:43 | Surgery Progress Note ---
Date of Service December 31, 2019 Assessment & Plan (1) Irreducible right inguinal hernia: doing ok surgically but has many medical issues and lives alone not ready for d/c will d/c feliz and advance diet PT eval/treat ? rehab candidate [facility] surgeons covering for weekend. Subjective doing ok. having pain ( expected) at incision site but otherwise no new complaints. danielle liquids. Physical Exam Physical Exam: alert. nad incision is c/d/i with some swelling/erythema ( likely will develop seroma b/c of cirrhosis/ascites) Results & Data Vital Signs (Past 12 Hours) Vital Signs Temp Pulse Pulse Resp BP Pulse Ox 12/31/19 07:30 37.1 C 82 14 148/68 H 91 12/31/19 02:51 36.8 C 73 16 135/61 95 PG Care Time/CCT Total # of Minutes Spent Total Time Spent with Patient: Total time spent is greater than 50% in coordination of care (as documented) at patient's floor/unit and/or counseling patient: Coding Level of Care Code None Diagnoses Irreducible right inguinal hernia K40.30
[2019-12-31] MEDS: ceFAZolin 2000MG 2,000 MG/15 ML SYR IV SCH ×2 (12:01→19:32)
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
[2019-12-31] MEDS: rifAXIMin 550 MG TABLET PO SCH (18:36)
[2020-01-01] MEDS: ceFAZolin 2000MG 2,000 MG/15 ML SYR IV SCH (03:48)
[2020-01-01] MEDS: oxyCODONE HCL IR 5 MG TAB (IMMEDIATE RELEASE) PO PRN ×5 (03:55→20:33)
[2020-01-01 05:47] LABS: Basophils # (auto) 0.03 K/uL (0-0.2); Basophils % (auto) 0.4 %; Eosinophils # (auto) 0.28 K/uL (0-0.5); Eosinophils % (auto) 3.4 %; Hematocrit (blood only) 31.4 % (42-52); Hemoglobin 10.6 g/dL (14.0-18.0); Immature Granulocytes # (auto) 0.03 K/uL (0.00-0.02); Immature Granulocytes % (auto) 0.4 %; Lymphocytes # (auto) 1.14 K/uL (1.2-3.4); Lymphocytes % (auto) 13.7 %; Mean Corpuscular Hemoglobin 34.2 pg (25-34); Mean Corpuscular Hgb Conc 33.8 g/dL (32-36); Mean Corpuscular Volume 101.3 fL (80-100); Mean Platelet Volume 10.6 fL (7.4-10.4); Monocytes # (auto) 1.48 K/uL (0.11-0.59); Monocytes % (auto) 17.8 %; Neutrophils # (auto) 5.36 K/uL (1.4-6.5); Neutrophils % (auto) 64.3 %; Platelet Count 128 K/uL (130-400); RDW Coefficient of Variation 15.4 % (11.5-14.5); RDW Standard Deviation 56.7 fL (36.4-46.3); White Blood Count 8.32 K/uL (4.8-10.8)
[2020-01-01 06:12] LABS: BUN Creatinine Ratio 18.6 (10-20); Calcium 8.1 mg/dl (8.5-10.1); Creatinine Clr Calc Pharmacy 70.7 ml/min; Est GFR (African American) 89.2; Magnesium 1.6 mg/dl (1.8-2.4)
[2020-01-01] MEDS: UMECLIDINIUM/VILANTEROL 62.5/25MCG 7 PUFFS/INHALER INH SCH (09:06)
[2020-01-01] MEDS: aMILoride HCL 5 MG TAB PO SCH (09:06)
[2020-01-01] MEDS: MULTIVITAMIN TAB PO SCH (09:06)
[2020-01-01] MEDS: DOXYCYCLINE HYCLATE 100 MG CAP PO SCH ×2 (09:07→20:27)
[2020-01-01] MEDS: rifAXIMin 550 MG TABLET PO SCH ×2 (09:07→20:27)
[2020-01-01] MEDS: PANTOprazole 40 MG TAB PO SCH ×2 (09:07→20:27)
[2020-01-01] MEDS: FUROSEMIDE 40 MG TAB PO SCH ×2 (09:07→16:55)
[2020-01-01] MEDS: MAGNESIUM SULFATE / D5W 1 GM/100 ML BAG IV SCH ×2 (10:14→11:19)
--- NOTE | 2020-01-01 12:33 | Surgery Progress Note ---
Date of Service doing fine, no fever, he tolerated clear diet, January 01, 2020 Assessment & Plan (1) Irreducible right inguinal hernia: 1) Irreducible right inguinal hernia: doing ok surgically but has many medical issues and lives alone not ready for d/c will d/c feliz and advance diet PT eval/treat ? rehab candidate Subjective doing ok. having pain ( expected) at incision site but otherwise no new complaints. danielle liquids. Physical Exam Constitutional: WD/WN, vitals as above Eyes: PERRL, conjunctivae normal, anicteric sclerae ENMT: external ear and nose normal, oropharynx normal Neck: trachea midline, no thyromegaly Respiratory: normal respiratory effort, lungs clear to auscultation Cardiovascular: RRR, no murmur, no edema Gastrointestinal (Abdomen): Percussion/Palpation: abdomen soft mild redness on Right groin incision site, no bulging, no drainage, Neurologic: patellar DTR's 2+ bilat, sensation intact Psychiatric: Orientation: alert and oriented x 3 Results & Data Vital Signs (Past 12 Hours) Vital Signs Temp Pulse Resp BP Pulse Ox 01/01/20 07:05 37.0 C 80 18 145/63 H 93 Laboratory Results Abnormal lab results 01/01/20 01/01/20 01/01/20 Range/Units 05:23 05:23 05:23 RBC 3.10 L (4.7-6.1) M/uL Hgb 10.6 L (14.0-18.0) g/dL Hct 31.4 L (42-52) % MCV 101.3 H (80-100) fL MCH 34.2 H (25-34) pg RDW Std Deviation 56.7 H (36.4-46.3) fL RDW Coeff of Ramses 15.4 H (11.5-14.5) % Plt Count 128 L (130-400) K/uL MPV 10.6 H (7.4-10.4) fL Immature Gran # (Auto) 0.03 H (0.00-0.02) K/uL Lymph # (Auto) 1.14 L (1.2-3.4) K/uL Caroline # (Auto) 1.48 H (0.11-0.59) K/uL Sodium 134 L (136-145) mmol/L BUN 19 H (7-18) mg/dl Calcium 8.1 L (8.5-10.1) mg/dl Magnesium 1.6 L (1.8-2.4) mg/dl Ammonia 66.0 H (11-32) umol/L
--- NOTE | 2020-01-01 21:21 | Hospitalist Progress Note ---
Date of Service January 01, 2020 Assessment & Plan (1) Irreducible right inguinal hernia: POD #2 s/p right inguinal hernia repair by gen surg (Dr Fernandes). defer management to general surgery. pain has been his largest issue thus far; otherwise stable and doing well. passing flatus; no stool yet. will inquire with surgery about resuming his lactulose for Rx/prevention of hepatic encephalopathy. (2) Hyperammonemia: hepatic encephalopathy - improved today. cont rifaximin 550 BID. Placed call to surgery to determine when lactulose can be resumed. recheck ammonia level in am. (3) Pulmonary hypertension: (4) Diastolic dysfunction: compensated on exam. cont lasix BID. cont amiloride. (5) Hypertension: BPs controlled (6) Osteomyelitis of left ankle: wound has been satisfactory during this visit. the wound is essentially fully healed. cont PO doxycycline. wound care nurse consultation has been requested. cont dressing changes as previous. (7) COPD (chronic obstructive pulmonary disease): no exacerbation at this time cont inhalers (8) GERD (gastroesophageal reflux disease): cont PPI twice daily no issues (9) Anemia: H/H cont to remain stable. was taking ferrous sulfate pre-hospitalization hold Fe for now; resume closer to d/c. (10) DVT prophylaxis: start heparin 5000 BID PT, OT evals appreciated; OT feels pt may need rehab; PT feels pt can likely return home. re-eval on Friday. updated pt's daughter by phone this evening. Admission and Anticipated Discharge Date Admission Date: December 30, 2019 Subjective patient sitting in chair during my rounds. feels better today overall except for right groin pain from his surgery. this was his largest complaint. with movement or walking the pain is quite severe. looking at med rec he is taking oxycodone quite frequently. passing flatus but no stool yet. eating is better today. denies dyspnea, cp, or nausea/emesis. Review of Systems Constitutional: no fever Respiratory: no dyspnea and no dyspnea on exertion Cardiovascular: no chest pain Gastrointestinal: as per Subjective / HPI; no nausea and no vomiting Physical Exam Constitutional: + frail appearing; + not well developed, + not well nourished, no acute distress and no altered mental status Respiratory: normal respiratory effort; no respiratory distress Auscultation: + crackles (dry, both bases - improved today) Cardiovascular: Rate/Rhythm: regular rate and regular rhythm Heart Sounds: normal S1, normal S2 and + murmur (2/6 LSB) Vessels: posterior tibial pulses present and dorsalis pedis pulses present; no JVD Extremities: no edema Gastrointestinal (Abdomen): normal bowel sounds, soft, nontender, no hepatosplenomegaly Percussion/Palpation: + hernia (tiny umbilical hernia - re ducible ) Skin: right inguinal hernia repair incision clean, dry, no cellulitis or drainage Neurologic: Motor/Sensory: no asterixis Psychiatric: Orientation: alert and oriented x 3 Results & Data ([facility]) Vital Signs (Past 12 Hours) Vital Signs Temp Pulse Resp BP Pulse Ox 01/01/20 15:16 37.2 C 81 17 133/66 97 Laboratory Results Laboratory Results - last 24 hr 01/01/20 01/01/20 01/01/20 05:23 05:23 05:23 WBC 8.32 RBC 3.10 L Hgb 10.6 L Hct 31.4 L MCV 101.3 H MCH 34.2 H MCHC 33.8 RDW Std Deviation 56.7 H RDW Coeff of Ramses 15.4 H Plt Count 128 L MPV 10.6 H Immature Gran % (Auto) 0.4 Neut % (Auto) 64.3 Lymph % (Auto) 13.7 Haywood % (Auto) 17.8 Eos % (Auto) 3.4 Baso % (Auto) 0.4 Immature Gran # (Auto) 0.03 H Neut # (Auto) 5.36 Lymph # (Auto) 1.14 L Haywood # (Auto) 1.48 H Eos # (Auto) 0.28 Baso # (Auto) 0.03 Sodium 134 L Potassium 4.0 Chloride 105 Carbon Dioxide 23 Anion Gap 6.0 BUN 19 H Creatinine 1.00 Est Cr Clr Drug Dosing 70.7 Est GFR ( Amer) 89.2 Est GFR (Non-Af Amer) 77.0 BUN/Creatinine Ratio 18.6 Glucose 99 Calcium 8.1 L Magnesium 1.6 L Ammonia 66.0 H PG Care Time/CCT Total # of Minutes Spent Total Time Spent with Patient: Total time spent is greater than 50% in coordination of care (as documented) at patient's floor/unit and/or counseling patient: Coding Level of Care Code 48033 Subseq Hosp Care Lvl 2 Diagnoses Irreducible right inguinal hernia K40.30 Hyperammonemia E72.20 Pulmonary hypertension I27.20 Diastolic dysfunction I51.89 Hypertension I10 Osteomyelitis of left ankle M86.9 COPD (chronic obstructive pulmonary disease) J44.9 COPD type: unspecified COPD GERD (gastroesophageal reflux disease) K21.9 Anemia D64.9 DVT prophylaxis Z29.9 (1) COPD (chronic obstructive pulmonary disease) COPD type: unspecified COPD Qualified Code(s): J44.9 - Chronic obstructive pulmonary disease, unspecified
[2020-01-02] MEDS: oxyCODONE HCL IR 5 MG TAB (IMMEDIATE RELEASE) PO PRN ×4 (04:19→17:36)
[2020-01-02 06:00] LABS: Hematocrit (blood only) 29.6 % (42-52); Hemoglobin 10.2 g/dL (14.0-18.0); Mean Corpuscular Hemoglobin 34.8 pg (25-34); Mean Corpuscular Hgb Conc 34.5 g/dL (32-36); Mean Platelet Volume 10.4 fL (7.4-10.4); Platelet Count 121 K/uL (130-400); RDW Coefficient of Variation 14.8 % (11.5-14.5); RDW Standard Deviation 54.9 fL (36.4-46.3); Red Blood Count 2.93 M/uL (4.7-6.1); White Blood Count 7.68 K/uL (4.8-10.8)
[2020-01-02 06:35] LABS: BUN Creatinine Ratio 22.4 (10-20); Est GFR (African American) 97.4; Est GFR (Non-African American) 84.1; Magnesium 1.9 mg/dl (1.8-2.4); Potassium 3.9 mmol/L (3.5-5.1)
[2020-01-02] MEDS: PANTOprazole 40 MG TAB PO SCH ×2 (08:19→21:09)
[2020-01-02] MEDS: DOXYCYCLINE HYCLATE 100 MG CAP PO SCH ×2 (08:19→21:09)
[2020-01-02] MEDS: FUROSEMIDE 40 MG TAB PO SCH ×2 (08:19→16:51)
[2020-01-02] MEDS: MULTIVITAMIN TAB PO SCH (08:19)
[2020-01-02] MEDS: aMILoride HCL 5 MG TAB PO SCH (08:19)
[2020-01-02] MEDS: rifAXIMin 550 MG TABLET PO SCH ×2 (08:20→21:09)
[2020-01-02] MEDS: UMECLIDINIUM/VILANTEROL 62.5/25MCG 7 PUFFS/INHALER INH SCH (08:20)
[2020-01-02] MEDS: HEPARIN SOD 5,000 UNIT/0.5 ML VIAL SQ SCH ×2 (08:21→21:09)
--- NOTE | 2020-01-02 10:50 | Surgery Progress Note ---
Date of Service doing fine, no BM yet, no fever, January 02, 2020 Assessment & Plan (1) Irreducible right inguinal hernia: 1) Irreducible right inguinal hernia: doing ok surgically but has many medical issues and lives alone not ready for d/c will d/c feliz and advance diet PT eval/treat ? rehab candidate 01/02/2020 10:51am cellulitis on incision site, pt is on antibiotic doing fine, miralax possible D/C tomorrow, Subjective patient sitting in chair during my rounds. feels better today overall except for right groin pain from his surgery. this was his largest complaint. with movement or walking the pain is quite severe. looking at med rec he is taking oxycodone quite frequently. passing flatus but no stool yet. eating is better today. denies dyspnea, cp, or nausea/emesis. Physical Exam Constitutional: WD/WN, vitals as above Eyes: PERRL, conjunctivae normal, anicteric sclerae ENMT: external ear and nose normal, oropharynx normal Neck: trachea midline, no thyromegaly Respiratory: normal respiratory effort, lungs clear to auscultation Cardiovascular: RRR, no murmur, no edema Gastrointestinal (Abdomen): Percussion/Palpation: abdomen soft some redness on incision site, no drainage, no enlarge redness compare yesterday, Neurologic: patellar DTR's 2+ bilat, sensation intact Psychiatric: Orientation: alert and oriented x 3 Results & Data Vital Signs (Past 12 Hours) Vital Signs Temp Pulse Resp BP Pulse Ox 01/02/20 07:35 36.9 C 79 16 129/63 93 01/01/20 23:14 37.5 C 81 16 120/64 94 Laboratory Results Abnormal lab results 01/02/20 01/02/20 01/02/20 Range/Units 05:49 05:49 05:49 RBC 2.93 L (4.7-6.1) M/uL Hgb 10.2 L (14.0-18.0) g/dL Hct 29.6 L (42-52) % MCV 101.0 H (80-100) fL MCH 34.8 H (25-34) pg RDW Std Deviation 54.9 H (36.4-46.3) fL RDW Coeff of Ramses 14.8 H (11.5-14.5) % Plt Count 121 L (130-400) K/uL Sodium 135 L (136-145) mmol/L BUN 21 H (7-18) mg/dl BUN/Creatinine Ratio 22.4 H (10-20) Glucose 100 H (70-99) mg/dl Calcium 8.0 L (8.5-10.1) mg/dl Ammonia 55.6 H (11-32) umol/L
[2020-01-02] MEDS ORDERED: POLYETHYLENE (MIRALAX) 17 GM PACK PO SCH (11:00)
--- NOTE | 2020-01-02 12:29 | Hospitalist Progress Note ---
Date of Service January 02, 2020 Assessment & Plan (1) Irreducible right inguinal hernia: POD #3 s/p right inguinal hernia repair by gen surg (Dr Fernandes). defer management to general surgery. pain much better today. passing flatus; no stool yet. Spoke with Dr Ontiveros today - ok to resume lactulose for Rx/prevention of hepatic encephalopathy. Dr Ontiveros commented that incision was mildly erythematous - agree with such; the suprapubic area is mildly swollen/erythematous - follow carefully. no fever, no leukocytosis. (2) Hyperammonemia: hepatic encephalopathy - improved/resolved. cont rifaximin 550 BID. resume lactulose 10gm daily. titrate for 2-3 BMs/day. ammonia level much improved from several days ago. defer repeat level tomorrow as he is at or near baseline. would cont rifaximin at d/c. need to check on cost of such, however. (3) Pulmonary hypertension: (4) Diastolic dysfunction: compensated on exam. cont lasix BID. cont amiloride. (5) Hypertension: BPs controlled (6) Osteomyelitis of left ankle: wound continues to be satisfactory during this visit. the wound is essentially fully healed. cont PO doxycycline. wound care nurse consultation has been requested. cont dressing changes as previous. (7) COPD (chronic obstructive pulmonary disease): no exacerbation at this time cont inhalers (8) GERD (gastroesophageal reflux disease): cont PPI twice daily no issues (9) Anemia: H/H cont to remain stable. was taking ferrous sulfate pre-hospitalization resume at d/c. (10) Candidiasis of mouth and esophagus: no actual white plaques but erythematous mucosa may be fela. at risk due to abx usage, etc. start nystatin 5cc qid swish/swallow. (11) DVT prophylaxis: heparin 5000 BID PT, OT evals appreciated can likely return home w/ family at d/c; will need ongoing Home Health and home PT/OT. updated pt's daughter by phone on 12/31 and 01/01 Admission and Anticipated Discharge Date Admission Date: December 30, 2019 Anticipated date of discharge: 01/03/20 Subjective pt reading newspaper upon my visit. feels good, hoping to d/c home with family tomorrow. pain in right groin MUCH improved today. passing flatus but no stool yet. no dyspnea. no new complaints. feels more "like himself" today (very alert, awake). Review of Systems Constitutional: no fever Respiratory: no cough and no dyspnea Cardiovascular: no chest pain Gastrointestinal: no abdominal pain Physical Exam Constitutional: + thin and + frail appearing; no acute distress and no altered mental status ENMT: Mouth: + oral mucosal abnormality (irritated, erythematous ) and + dry oral mucous membranes Respiratory: normal respiratory effort; no respiratory distress Auscultation: + crackles (dry, both bases - minimal ) Cardiovascular: Rate/Rhythm: regular rate and regular rhythm Heart Sounds: normal S1, normal S2 and + murmur (2/6 LSB) Vessels: posterior tibial pulses present and dorsalis pedis pulses present; no JVD Extremities: no edema Gastrointestinal (Abdomen): normal bowel sounds, soft, nontender, no hepatosplenomegaly Percussion/Palpation: + hernia (tiny umbilical hernia - reducible ) Skin: incision - right groin - minimal erythema directly near incision; suprapubic region mild, faint erythema Neurologic: Motor/Sensory: no asterixis Psychiatric: Orientation: alert and oriented x 3 Results & Data ([facility]) Vital Signs (Past 12 Hours) Vital Signs Temp Pulse Resp BP Pulse Ox 01/02/20 07:35 36.9 C 79 16 129/63 93 Laboratory Results Laboratory Results - last 24 hr 01/02/20 01/02/20 01/02/20 05:49 05:49 05:49 WBC 7.68 RBC 2.93 L Hgb 10.2 L Hct 29.6 L MCV 101.0 H MCH 34.8 H MCHC 34.5 RDW Std Deviation 54.9 H RDW Coeff of Ramses 14.8 H Plt Count 121 L MPV 10.4 Sodium 135 L Potassium 3.9 Chloride 104 Carbon Dioxide 25 Anion Gap 6.0 BUN 21 H Creatinine 0.93 Est Cr Clr Drug Dosing 76.0 Est GFR ( Amer) 97.4 Est GFR (Non-Af Amer) 84.1 BUN/Creatinine Ratio 22.4 H Glucose 100 H Calcium 8.0 L Magnesium 1.9 Ammonia 55.6 H PG Care Time/CCT Total # of Minutes Spent Total Time Spent with Patient: Total time spent is greater than 50% in coordination of care (as documented) at patient's floor/unit and/or counseling patient: Coding Level of Care Code 09712 Subseq Hosp Care Lvl 2 Diagnoses Irreducible right inguinal hernia K40.30 Hyperammonemia E72.20 Pulmonary hypertension I27.20 Diastolic dysfunction I51.89 Hypertension I10 Osteomyelitis of left ankle M86.9 COPD (chronic obstructive pulmonary disease) J44.9 COPD type: unspecified COPD GERD (gastroesophageal reflux disease) K21.9 Anemia D64.9 Candidiasis of mouth and esophagus B37.81; B37.0 DVT prophylaxis Z29.9 (1) COPD (chronic obstructive pulmonary disease) COPD type: unspecified COPD Qualified Code(s): J44.9 - Chronic obstructive pulmonary disease, unspecified
[2020-01-02] MEDS: LACTULOSE SYRUP 10 GM/15 ML BTL 960 ML PO SCH (16:51)
[2020-01-02] MEDS: NYSTATIN SUSP 500,000 U/5 ML UDC PO SCH (23:50)
[2020-01-03 06:51] LABS: Hematocrit (blood only) 27.8 % (42-52); Hemoglobin 9.5 g/dL (14.0-18.0); Mean Corpuscular Hemoglobin 34.3 pg (25-34); Mean Corpuscular Hgb Conc 34.2 g/dL (32-36); Mean Corpuscular Volume 100.4 fL (80-100); Mean Platelet Volume 10.3 fL (7.4-10.4); Platelet Count 122 K/uL (130-400); RDW Coefficient of Variation 14.7 % (11.5-14.5); RDW Standard Deviation 53.8 fL (36.4-46.3); Red Blood Count 2.77 M/uL (4.7-6.1); White Blood Count 5.98 K/uL (4.8-10.8)
[2020-01-03 07:21] LABS: BUN Creatinine Ratio 19.7 (10-20); Calcium 7.8 mg/dl (8.5-10.1); Creatinine Clr Calc Pharmacy 67.3 ml/min; Est GFR (African American) 84.1; Est GFR (Non-African American) 72.6
[2020-01-03] MEDS: DOXYCYCLINE HYCLATE 100 MG CAP PO SCH (08:36)
[2020-01-03] MEDS: MULTIVITAMIN TAB PO SCH (08:37)
[2020-01-03] MEDS: PANTOprazole 40 MG TAB PO SCH (08:37)
[2020-01-03] MEDS: aMILoride HCL 5 MG TAB PO SCH (08:37)
[2020-01-03] MEDS: FUROSEMIDE 40 MG TAB PO SCH (08:37)
[2020-01-03] MEDS: rifAXIMin 550 MG TABLET PO SCH (08:37)
[2020-01-03] MEDS: NYSTATIN SUSP 500,000 U/5 ML UDC PO SCH ×2 (08:38→12:53)
[2020-01-03] MEDS: LACTULOSE SYRUP 10 GM/15 ML BTL 960 ML PO SCH (08:38)
[2020-01-03] MEDS: UMECLIDINIUM/VILANTEROL 62.5/25MCG 7 PUFFS/INHALER INH SCH (08:38)
[2020-01-03] MEDS: HEPARIN SOD 5,000 UNIT/0.5 ML VIAL SQ SCH (08:39)
--- NOTE | 2020-01-03 10:25 | Surgery Progress Note ---
Date of Service January 03, 2020 Assessment & Plan (1) Irreducible right inguinal hernia: POD 4 hernia repair incision is fine, expect some swelling/ecchymosis as he had large hernia/incarceration anticipate d/c today if ok with medicine as above. essentially back to his baseline medical status. ok for d/c. instructions given. Subjective no c/o, tolerating diet Physical Exam Gastrointestinal (Abdomen): Inspection/Auscultation: + abdominal surgical incision (clean, dry) Percussion/Palpation: abdomen soft Results & Data Vital Signs (Past 12 Hours) Vital Signs Temp Pulse Resp BP Pulse Ox 01/03/20 06:42 36.7 C 83 18 124/66 93 01/02/20 23:24 36.8 C 83 16 125/63 93 PG Care Time/CCT Total # of Minutes Spent Total Time Spent with Patient: Total time spent is greater than 50% in coordination of care (as documented) at patient's floor/unit and/or counseling patient: Coding Level of Care Code None Diagnoses Irreducible right inguinal hernia K40.30
--- NOTE | 2020-01-03 11:56 | Hospitalist Progress Note ---
Date of Service January 03, 2020 Assessment & Plan (1) Irreducible right inguinal hernia: POD #4 s/p right inguinal hernia repair by gen surg (Dr Fernandes). defer management to general surgery. passing flatus; no stool yet. Spoke with Dr Ontiveros yesterday - ok to resume lactulose for Rx/prevention of hepatic encephalopathy. (2) Hyperammonemia: hepatic encephalopathy - improved/resolved. cont rifaximin 550 BID. resume lactulose 10gm daily. titrate for 2-3 BMs/day. ammonia level much improved from several days ago. defer repeat level as he is at or near baseline. 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 cont lasix BID. cont amiloride. (5) Hypertension: BPs controlled (6) Osteomyelitis of left ankle: wound continues to be satisfactory during this visit. the wound is essentially fully healed. cont PO doxycycline. wound care nurse consultation has been requested. cont dressing changes as previous. (7) COPD (chronic obstructive pulmonary disease): no exacerbation at this time cont inhalers (8) GERD (gastroesophageal reflux disease): cont PPI twice daily no issues (9) Anemia: H/H cont to remain stable. was taking ferrous sulfate pre-hospitalization resume at d/c. (10) Candidiasis of mouth and esophagus: no actual white plaques but erythematous mucosa may be fela. at risk due to abx usage, etc. Continue nystatin 5cc qid swish/swallow. (11) DVT prophylaxis: heparin 5000 BID PT, OT evals appreciated can likely return home w/ family at d/c; will need ongoing Home Health and home PT/OT. Patient is ok for discharge when ok with surgery Admission and Anticipated Discharge Date Admission Date: December 30, 2019 Anticipated date of discharge: 01/03/20 Subjective Mr. Fortune has no complaints other than mild abdominal pain. He has not had a bowel movement yet, is passing gas. He is looking forward to going home. ROS Constitutional: no chills, aches, sweats or fever Respiratory: no sob,cough, sputum, or wheezing Cardiac: no chest pain, palpitations, edema, orthopnea or lightheadedness GI: no abdominal pain, nausea, vomiting, diarrhea or constipation : no dysuria or hesitancy Extremities: no joint pain or weakness Skin: no rash All other systems reviewed and negative Physical Exam Physical Exam: General: no distress Eyes: normal inspection, PERLL Respiratory: chest non tender, clear to auscultation, normal breath sounds, no respiratory distress, no accessory muscle use Cardiac: regular rate and rhythm, no rub or gallop, no murmur, no edema, no jvd GI/: active bowel sounds, no abd pain or tenderness, soft, non distended Extremities: normal range of motion, normal strength, non tender Neuro/Psych: alert and oriented x 3, normal mood and affect Skin: normal color, dry Results & Data ([facility]) Vital Signs (Past 12 Hours) Vital Signs Temp Pulse Resp BP Pulse Ox 01/03/20 06:42 36.7 C 83 18 124/66 93 PG Care Time/CCT Total # of Minutes Spent Total Time Spent with Patient: Total time spent is greater than 50% in coordination of care (as documented) at patient's floor/unit and/or counseling patient: Coding Level of Care Code 19628 Subseq Hosp Care Lvl 2 Diagnoses Irreducible right inguinal hernia K40.30 Hyperammonemia E72.20 Pulmonary hypertension I27.20 Diastolic dysfunction I51.89 Hypertension I10 Osteomyelitis of left ankle M86.9 COPD (chronic obstructive pulmonary disease) J44.9 COPD type: unspecified COPD GERD (gastroesophageal reflux disease) K21.9 Anemia D64.9 Candidiasis of mouth and esophagus B37.81; B37.0 DVT prophylaxis Z29.9 (1) COPD (chronic obstructive pulmonary disease) COPD type: unspecified COPD Qualified Code(s): J44.9 - Chronic obstructive pulmonary disease, unspecified
--- NOTE | 2020-01-04 13:46 | Discharge Summary ---
Date of Service January 04, 2020 Admission HPI Per Admitting Provider 69 y/o male seen in ED 2 days ago for right inguinal hernia which was reduced. Overnight the hernia recurred, is larger and more painful than before. Has nausea, no vomiting. Had some nadeem Maribel earlier this morning. No previous abdominal surgery. History of cirrhosis and portal vein thrombus treated with coumadin/Lovenox but is no longer anticoagulated. Principal Diagnosis Incarcerated right inguinal hernia COPD Hyperammonemia Chronic anemia Discharge Exam Gastrointestinal (Abdomen) Inspection/Auscultation: + abdominal wall ecchymosis (right groin, scrotum) and + abdominal surgical incision (clean, dry) Percussion/Palpation: abdomen soft Discharge Data Allergies Allergy/AdvReac Type Severity Reaction Status Date / Time terazosin Allergy Severe PRIAPISM Verified 12/30/19 11:36 spironolactone Allergy Mild Unknown Verified 12/30/19 11:36 trazodone AdvReac Unknown Unknown Verified 12/30/19 11:36 Consultations 12/30/19 16:39 Consult Hospitalist Routine Procedures Performed Operation Date: 12/30/19 08:50 Actual Procedures p Open Right Incarcerated Inguinal Hernia Repair with mesh(Right) - Nick Fernandes, Ordered Studies 12/30/19 11:24 abdomen ltd hernia Stat Hospital Course (1) Hernia: 69 y/o male presented to the ED with right groin pain and swelling with ultrasound showing possible strangulating hernia. He was taken emergently to the OR for hernia repair. The bowel was not compromised. He was admitted to the surgical [facility] and hospitalist consulted routinely considering his multiple medical problems. Chao was removed in the morning. He had some hyperammonemia treated with rifaximin. He also has left ankle osteomyelitis and is s/p hardware removal with walking boot which limited his mobility. He made steady progress, ammonia was normalizing and he was stable for discharge home on postop day 4. Total Time Total Time Spent Total Time Spent (In Minutes): 15 Discharge Plan Discharge Items Patient Disposition: Home - Home Health Services Reason For Visit: S/P RIGHT INGUINAL HERNIA REPAIR Discharge Diagnosis: repair of hernia Condition on Discharge: Good Activity: As commented below Lifting: No more than 10 pounds Bathing: No limitations Driving/Machine Use: Resume 3 days after discharge Non-emergency contact: Surgeon Call non-emergency contact if: you have any medication questions, your pain is not controlled, you have a fever, your temperature is above 101.5 and your wound has increased redness Follow-up/Referrals: Cara Flowers MD [Primary Care Provider] - 01/06/20 10:00 am (If you need to cancel or reschedule your appointment please call [phone].) Nick Fernandes DO [Surgeon] - 01/17/20 9:30 am (If you need to cancel or reschedule your appointment please call [phone]. Thank you.) Diet: Regular Addtl Attending Provider Instructions: . Addtl Tempering Kiln Tender Provider Instructions: You will go home on 2 new medications. Nystatin is for you oral thrush infection and will need to continue for a total of 2 weeks. You have also been started on Xifaxan for your ammonia levels which is in addition to the lactulose. This medication requires a pre authorization from you insurance which your pharmacy should contact you about. Otherwise, please continue your other home medications as prescribed and see your primary care provider as listed above. Pending Studies at Discharge: No Stand-Alone Forms: My [facility] [employer], Smoking Cessation Medications and DC Order Prescriptions: New Xifaxan 550 mg Tablet 550 mg PO BID Qty: 60 RF: 2 nystatin 100,000 unit/mL Suspension 5 ml PO QID Qty: 48 RF: 0 Continued amiloride 5 mg tablet 10 mg PO QAM RF: 0 lactulose [Generlac] 10 gram/15 mL solution 10 gm PO BID RF: 0 Anoro Ellipta 62.5-25 mcg/actuation Blister With Device 1 inh INHALATION QAM RF: 0 multivitamin [Daily-Verena] Tablet 1 tab PO QAM Qty: 30 RF: 2 cholecalciferol (vitamin D3) 25 mcg (1,000 unit) Capsule 2,000 unit PO QAM Qty: 60 RF: 2 ferrous sulfate 325 mg (65 mg iron) tablet 325 mg PO BID Qty: 60 RF: 5 acetaminophen 325 mg Tablet 650 mg PO Q4H MDD 3 GM APAP/24 HOURS PRN (Reason: Fever Or Pain) RF: 0 melatonin 5 mg Tablet 5 mg PO HS RF: 0 ipratropium-albuterol 0.5 mg-3 mg(2.5 mg base)/3 mL solution for nebulization 3 ml inhalation Q4H PRN (Reason: Shortness Of Breath Or Wheezing) RF: 0 oxycodone [Roxicodone] 5 mg tablet 5 - 10 mg PO Q4H PRN (Reason: Pain) RF: 0 furosemide [Lasix] 40 mg tablet 40 mg PO BID17 RF: 0 doxycycline hyclate [Vibramycin] 100 mg capsule 100 mg PO BID RF: 0 pantoprazole [Protonix] 40 mg tablet,delayed release (DR/EC) 40 mg PO BID RF: 0 Discharge Orders: Discharge Order (Routine); Ordered 01/03/20 Ordered By: Leo Jeffrey Jr Admission Data Admit Date/Time: 12/30/19 16:39 Attending Provider: Nick Fernandes Admit Provider: Nick Fernandes Primary Care Provider: Cara Flowers Other Providers: Arjun Donovan ; Suzanne Waddell ; Miriam Duval ; Peyman Rodriguez Robert R. ; Lanie Arguelles ; Jose Martin Osullivan ; Edinson Soni ; Padilla Philippe ; Shaila Pichardo ; Esthela Coyne ; Mary Dhaliwal ; Rojelio Jaimes ; Tamanna Nguyen ; Vic Gould ; Suzanne Strickland ; Nick Pruitt ; Margarita Márquez ; Hannah Lambert ; Lázaro Trujillo Jonathan M. ; Jovita Jones ; Emily Koroma ; Biju Steiner ; Nithin Brothers ; Ashley Navarro ; Kuldip Kearns ; Alexey Carter ; Caroline Cosby ; Jose G Bearden ; [place] Other Interventions: Discharge Summary Assessment (RN) Last Done: 01/03/20 12:34 DC Date/Time DO NOT enter until pt leaves facility: 01/03/20 14:28 Coding Level of Care Code D/C Day Management <30 mins Diagnoses Hernia K46.9
== END 2020-01-03 14:28 | disposition home health service (06) | DRG 351 ==
LOC: ED 10:57 → ASU 14:25 → 3W 16:39

== ENCOUNTER 2021-11-24 14:06 | Observation (INO) ==
[2021-11-24] MEDS ORDERED: DOXYCYCLINE HYCLATE 100 MG CAP PO STA (14:30)
[2021-11-24] MEDS ORDERED: SODIUM CHLORIDE 0.9% 1000ML 1,000 ML IV SCH (14:30)
[2021-11-24] MEDS ORDERED: ceFAZolin 2000MG 2,000 MG/15 ML SYR IV STA (14:30)
[2021-11-24] MEDS ORDERED: DIPHTHERIA/TETANUS/PERTUSSIS 0.5 ML SYR/VIAL IM ONE (14:36)
[2021-11-24 15:33] LABS: Basophils # (auto) 0.03 K/uL (0-0.2); Basophils % (auto) 0.6 %; Eosinophils # (auto) 0.24 K/uL (0-0.5); Eosinophils % (auto) 4.6 %; Hematocrit (blood only) 35.8 % (42-52); Hemoglobin 12.3 g/dL (14.0-18.0); Immature Granulocytes # (auto) 0.02 K/uL (0.00-0.02); Immature Granulocytes % (auto) 0.4 %; Lymphocytes % (auto) 19.3 %; Mean Corpuscular Hemoglobin 36.1 pg (25-34); Mean Corpuscular Hgb Conc 34.4 g/dL (32-36); Mean Platelet Volume 10.5 fL (7.4-10.4); Monocytes # (auto) 0.66 K/uL (0.11-0.59); Monocytes % (auto) 12.7 %; Neutrophils # (auto) 3.23 K/uL (1.4-6.5); Neutrophils % (auto) 62.4 %; Platelet Count 112 K/uL (130-400); RDW Standard Deviation 57.6 fL (36.4-46.3); Red Blood Count 3.41 M/uL (4.7-6.1); White Blood Count 5.18 K/uL (4.8-10.8)
[2021-11-24 15:56] LABS: Calcium 8.1 mg/dl (8.5-10.1); Creatinine Clr Calc Pharmacy 80.9 ml/min; Est GFR (African American) 102.3 ml/min; Est GFR (Non-African American) 88.3 ml/min; Potassium 3.4 mmol/L (3.5-5.1)
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
[2021-11-24] MEDS ORDERED: ONDANSETRON INJ 2 MG/ML 2 ML VIAL IV STA (17:33)
--- NOTE | 2021-11-24 18:46 | CT Scan Report ---
CT SCAN OF THE BRAIN WITHOUT IV CONTRAST CLINICAL HISTORY: Change in mental status. COMPARISON STUDY: CT of the brain dated 10/16/2019. TECHNIQUE: Unenhanced axial CT scan of the brain is performed from the vertex to the skull base. A do se lowering technique was utilized adhering to the principles of ALARA. CT DOSE: 614.27 mGy.cm FINDINGS: Brain parenchyma: There are age-related involutional changes noting mild to moderate patchy subcorti ronald and periventricular microangiopathic change. There is no hemorrhage, mass effect, or evidence of acute territorial ischemia by CT criteria. Simmons-white matter differentiation is preserved. No extra-a xial fluid collection is seen. Ventricles, sulci, cisterns: Prominent secondary to involutional change. Intracranial vasculature: There is atherosclerotic calcification of the cavernous carotid and vertebr al arteries. Calvarium: Unremarkable. Sinuses and mastoids: There is noted with opacification of the left maxillary antrum. The remaining p aranasal sinuses are clear. The mastoid air cells are well pneumatized. Orbits: The bony orbits are grossly intact. There are bilateral ocular lens implants. IMPRESSION: There is no hemorrhage, mass effect, or evidence of acute territorial ischemia by CT lauren schwab. ACT 112: Negative or not required by law. Electronically signed by: Anuj Dominguez M.D. 11/24/2021 6:44 PM
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
[2021-11-24] MEDS ORDERED: ONDANSETRON INJ 2 MG/ML 2 ML VIAL IV PRN (20:22)
[2021-11-24] MEDS ORDERED: FAMOTIDINE 20 MG TAB PO ONE (20:22)
[2021-11-24] MEDS ORDERED: ACETAMINOPHEN 325 MG TAB PO PRN (20:22)
[2021-11-24] MEDS ORDERED: POTASSIUM CHLORIDE CRTAB 20 MEQ TABCR PO STA (20:28)
[2021-11-24] MEDS: AMPICILLIN/SULBACTAM SOD 3,000 MG in 0.9 % SODIUM CHLORIDE 100 ML IV SCH (21:57)
[2021-11-24] MEDS: NYSTATIN SUSP 500,000 U/5 ML UDC PO SCH (22:00)
[2021-11-24] MEDS: LACTULOSE SYRUP 10 GM/15 ML BTL 960 ML PO SCH (22:00)
[2021-11-24] MEDS: FERROUS SULFATE 325 MG TAB PO SCH (22:00)
[2021-11-24] MEDS: rifAXIMin 550 MG TABLET PO SCH (22:00)
[2021-11-24] MEDS: PANTOprazole 40 MG TAB PO SCH (22:00)
[2021-11-24] MEDS: KETOCONAZOLE 2% CR 15 GM TUBE EXT SCH (22:01)
[2021-11-24] MEDS: MAGNESIUM SULFATE / D5W 1 GM/100 ML BAG IV SCH (22:49)
[2021-11-25] MEDS: MAGNESIUM SULFATE / D5W 1 GM/100 ML BAG IV SCH (01:13)
[2021-11-25] MEDS: AMPICILLIN/SULBACTAM SOD 3,000 MG in 0.9 % SODIUM CHLORIDE 100 ML IV SCH ×2 (03:52→08:03)
[2021-11-25 06:48] LABS: Calcium 7.5 mg/dl (8.5-10.1); Creatinine Clr Calc Pharmacy 91.6 ml/min; Est GFR (African American) 107.7 ml/min; Est GFR (Non-African American) 92.9 ml/min; Magnesium 1.9 mg/dl (1.7-2.4)
[2021-11-25 07:13] LABS: Folate (Folic Acid) 11.78 ng/ml (>5.38)
[2021-11-25] MEDS: FERROUS SULFATE 325 MG TAB PO SCH (08:03)
[2021-11-25] MEDS: NYSTATIN SUSP 500,000 U/5 ML UDC PO SCH ×2 (08:03→12:15)
[2021-11-25] MEDS: PANTOprazole 40 MG TAB PO SCH (08:04)
[2021-11-25] MEDS: rifAXIMin 550 MG TABLET PO SCH (08:04)
[2021-11-25] MEDS: KETOCONAZOLE 2% CR 15 GM TUBE EXT SCH (08:09)
--- NOTE | 2021-11-25 08:24 | Hospitalist Progress Note ---
Date of Service November 25, 2021 Assessment & Plan (1) Cellulitis of left arm: Plan: 2nd to scratches or bites from his dog at home. The cellulitis is primarily on his left hand (dorsum) with some tracking over the wrist. Will Rx with unasyn 3gm IV q6h. Follow blood cultures. (2) Chest pain: Plan: 2nd to GERD? ischemic? doxycycline? other? cont PPI twice daily. add pepcid 20mg daily. serial troponins 0.04,0.06,0.06, ECG without acute changes echo pending (3) Hypertension: Plan: uncontrolled. cont his double diuretics. given his cirrhosis ideally he is on inderal or nadalol which would also Rx his HTN BP is much better today (4) GERD (gastroesophageal reflux disease): Plan: cont PPI twice daily. add pepcid once daily. follow response. (5) Thrombocytopenia: Plan: chronic, at baseline - which is about 100-150. likely 2nd to cirrhosis. previous b12/folate levels wnl. consider rechecking those along with TSH in am. (6) COPD (chronic obstructive pulmonary disease): Plan: no exacerbation at this time. cont usual inhalers. (7) Pulmonary hypertension: Plan: noted. 2nd to COPD (8) Candidiasis of mouth and esophagus: Plan: posterior pharyngeal erythema - 2nd fela? 2nd irritation from chewing tobacco? will presumptively Rx for fela - nystatin yomaira 5cc qid. (9) Cirrhosis: Plan: 2nd to etoh. has maintained sobriety for years. appears compensated on exam. lasix/amiloride. checked ammonia normal cont lactulose. cont rifaximin. (10) Portal vein thrombosis: Plan: history of - previously was on anticoagulation for such. no longer on anticoagulation. (11) DVT prophylaxis: Plan: heparin 5000 BID Plan: hypomagnesemia, hypokalemia -replete right lower abdomen "lump" - suspect he is feeling the mesh from his prior inguinal hernia repair. He states it is painful at times - would send back to gen surgery for this as outpatient. non-healing skin lesion, right neck - following discharge refer back to PCP or derm for Rx. daughter extensively updated at bedside during ER assessment. Admission and Anticipated Discharge Date Admission Date: November 24, 2021 Results & Data Results & Data ([facility]) Vital Signs (Past 12 Hours) Vital Signs Temp Pulse Pulse Resp BP BP BP 02/06/22 07:10 98.4 F 77 20 134/64 11/25/21 03:35 98.1 F 73 18 163/71 H 11/25/21 02:02 69 11/25/21 00:58 71 11/24/21 22:29 97.7 F 70 18 164/69 H 11/24/21 21:15 97.9 F 82 18 180/84 H 11/24/21 20:47 68 18 171/72 H Pulse Ox 11/25/21 07:10 90 11/25/21 03:35 90 11/25/21 02:02 11/25/21 00:58 11/24/21 22:29 93 11/24/21 21:15 90 11/24/21 20:47 95 PG Care Time/CCT Total # of Minutes Spent Total Time Spent with Patient: Total time spent is greater than 50% in coordination of care (as documented) at patient's floor/unit and/or counseling patient: Coding Diagnoses Cellulitis of left arm L03.114 Chest pain R07.9 Hypertension I10 GERD (gastroesophageal reflux disease) K21.9 Thrombocytopenia D69.6 COPD (chronic obstructive pulmonary disease) J44.9 COPD type: unspecified COPD Pulmonary hypertension I27.20 Candidiasis of mouth and esophagus B37.81; B37.0 Cirrhosis K74.60 Portal vein thrombosis I81 DVT prophylaxis Z29.9 (1) COPD (chronic obstructive pulmonary disease) COPD type: unspecified COPD Qualified Code(s): J44.9 - Chronic obstructive pulmonary disease, unspecified
[2021-11-25] MEDS ORDERED: FAMOTIDINE 20 MG TAB PO SCH (09:00)
[2021-11-25] MEDS ORDERED: MULTIVITAMIN TAB PO SCH (09:00)
[2021-11-25] MEDS ORDERED: FUROSEMIDE 40 MG TAB PO SCH (09:00)
[2021-11-25] MEDS ORDERED: CHOLECALCIFEROL 1,000 UNITS 25 MCG TAB PO SCH (09:00)
[2021-11-25] MEDS ORDERED: aMILoride HCL 5 MG TAB PO SCH (09:00)
[2021-11-25] MEDS ORDERED: HEPARIN SOD 5,000 UNIT/0.5 ML VIAL SQ SCH (09:00)
[2021-11-25] MEDS ORDERED: UMECLIDINIUM/VILANTEROL 62.5/25MCG 7 PUFFS/INHALER INH SCH (09:00)
--- NOTE | 2021-11-25 09:22 | Electrocardiogram Report ---
Test Reason : Blood Pressure : / mmHG Vent. Rate : 066 BPM Atrial Rate : 066 BPM P-R Int : 224 ms QRS Dur : 090 ms QT Int : 448 ms P-R-T Axes : 054 065 072 degrees QTc Int : 469 ms Sinus rhythm with 1st degree A-V block Nonspecific T wave abnormality Anteroseptal leads Abnormal ECG When compared with ECG of 28-DEC-2019 15:46, T wave inversion less evident in Anterolateral leads Confirmed by Yomi Hackett ([id number]) on 11/25/2021 9:22:05 AM Referred By: REFERRED SELF Confirmed By:Yomi Hackett
[2021-11-25] MEDS: LACTULOSE SYRUP 10 GM/15 ML BTL 960 ML PO SCH (09:32)
--- NOTE | 2021-11-25 16:36 | Discharge Summary ---
Date of Service November 25, 2021 Admission HPI Per Admitting Provider 71yo male with history of cirrhosis, ongoing tobacco dependence, h/o PVT, h/o osteomyelitis of the left ankle, pulmonary HTN, GERD, HTN, and COPD who presents from his home due to worsening left arm redness and discomfort. Patient states that 5-6 days ago one of his dogs scratched him on 2 separate areas of the left hand, dorsal aspect. The area ultimately became more red over the next few days, and was painful/uncomfortable in that same region. He never had joint pain of the left wrist or any of the left hand fingers. He denies any fevers or chills but did have loss of appetite over the previous few days. The pain in the left hand actually improved in the last 24 hours. Today the patient's daughter visited with him and noted the left hand/arm redness and urged him to come to the ER for evaluation. ER course - apparently he had an episode of chest discomfort, b/l arm discomfort, feeling warm/flushed, and had nausea. He received a dose of zofran for this. The symptoms started not too long after having received his antibiotics. He did not develop any hives or generalized rash but per his daughter he may have had 2 small red spots on the right arm near his IV after receiving the zofran. By the time of my assessment all of the above symptoms were resolved and the red spots on the right arm were fully resolved. Principal Diagnosis dog bite cellulitis Discharge Exam Dorsum of patient's left hand has 2 eschars which are puncture wounds his hand is midchest erythematous he can approximate all fingers he has good distal sensation and overall improved he is no lymphangitic streaking or lymphadenopathy of his axilla Discharge Data Allergies Allergy/AdvReac Type Severity Reaction Status Date / Time terazosin Allergy Severe PRIAPISM Verified 11/24/21 15:05 spironolactone Allergy Mild Unknown Verified 11/24/21 15:05 trazodone AdvReac Unknown Unknown Verified 11/24/21 15:05 Consultations 11/24/21 18:21 ED Decision to Admit Stat Ordered Studies 11/24/21 17:33 CT head/brain wo con Stat Hospital Course (1) Cellulitis of left arm: 2nd to scratches or bites from his dog at home. The cellulitis is primarily on his left hand (dorsum) with some tracking over the wrist. Unasyn transition to Augmentin will complete a week's course at home Follow blood cultures. Blood cultures are negative at time of discharge (2) Chest pain: Resolved patient blames it on his reflux. cont PPI twice daily. add pepcid 20mg daily. serial troponins 0.04,0.06,0.06, ECG without acute changes moderate elevation of troponins likely demand ischemia due to illness (3) Hypertension: uncontrolled. cont his double diuretics. given his cirrhosis PCP may consider Inderal or nadalol which would also Rx his HTN BP is much better today (4) GERD (gastroesophageal reflux disease): cont PPI twice daily. add pepcid once daily. follow response. (5) Thrombocytopenia: chronic, at baseline - which is about 100-150. likely 2nd to cirrhosis. previous b12/folate levels wnl. consider rechecking those along with TSH in am. (6) COPD (chronic obstructive pulmonary disease): no exacerbation at this time. cont usual inhalers. (7) Pulmonary hypertension: noted. 2nd to COPD (8) Candidiasis of mouth and esophagus: posterior pharyngeal erythema - irritation from chewing tobacco (9) Cirrhosis: 2nd to etoh. has maintained sobriety for years. appears compensated on exam. lasix/amiloride. checked ammonia normal normal at 35 cont lactulose. cont rifaximin. (10) Portal vein thrombosis: history of - previously was on anticoagulation for such. no longer on anticoagulation. hypomagnesemia, hypokalemia -replete right lower abdomen "lump" - suspect he is feeling the mesh from his prior inguinal hernia repair. He states it is painful at times - would send back to gen surgery for this as outpatient. non-healing skin lesion, right neck - following discharge refer back to PCP or derm for Rx. Also be helped by antibiotics Total Time Total Time Spent Total Time Spent (In Minutes): It required greater than 30 minutes to prepare this patient for discharge Discharge Plan Discharge Items Patient Disposition: Home - Self-Care Reason For Visit: LEFT ARM CELLULITIS Discharge Diagnosis: Dog bite cellulitis Condition on Discharge: Good Activity: Per Instructions section Activity Comment: keep affected hand elevated and limit excessive use Non-emergency contact: Primary Care Provider Call non-emergency contact if: your symptoms worsen and you have a fever Follow-up/Referrals: Craig Worthy, [Primary Care Provider] - Diet: Regular Addtl Attending Provider Instructions: Keep the areas of injury clean and dry Elevate your hand when sleeping or sitting You may use antibiotic ointment to the areas that are hard encrusting however do not use Neosporin as some people are sensitive to it Complete all of your antibiotics as prescribed May consider using a probiotic or eating yogurt or cottage cheese to help your GI tract not be as effective by your antibiotic Please follow-up with Dr. Worthy this week Pending Studies at Discharge: Yes Studies:: Final culture results Stand-Alone Forms: My [facility] [employer], Smoking Cessation Medications and DC Order Prescriptions: New amoxicillin-pot clavulanate 875-125 mg tablet 1 tab PO BID Qty: 14 RF: 0 Continued lactulose [Generlac] 10 gram/15 mL solution 10 g PO BID Qty: 2700 RF: 1 ferrous sulfate 325 mg (65 mg iron) tablet 325 mg PO BID Qty: 180 RF: 1 Xifaxan 550 mg tablet 550 mg PO BID Qty: 180 RF: 1 ketoconazole 2 % cream 1 applic topical BID Qty: 60 RF: 2 Anoro Ellipta 62.5-25 mcg/actuation blister with device 1 inh INHALATION QAM Qty: 60 RF: 11 amiloride 5 mg tablet 10 mg PO QAM Qty: 60 RF: 5 Adult 50 Plus Probiotic 4 billion cell capsule 4,000 mmu cells PO DAILY RF: 0 furosemide [Lasix] 40 mg tablet 40 mg PO QAM RF: 0 pantoprazole 40 mg tablet,delayed release (DR/EC) 40 mg PO BID RF: 0 multivitamin [Daily-Verena] Tablet 1 tab PO QAM Qty: 30 RF: 2 cholecalciferol (vitamin D3) 25 mcg (1,000 unit) Capsule 2,000 unit PO QAM Qty: 60 RF: 2 acetaminophen 325 mg Tablet 650 mg PO Q4H MDD 3 GM APAP/24 HOURS PRN (Reason: Fever Or Pain) RF: 0 Discharge Orders: Discharge Order (Routine); Ordered 11/25/21 Ordered By: Jose Martin Osullivan Admission Data Admit Date/Time: 11/24/21 20:00 Attending Provider: Jose Martin Osullivan Admit Provider: Peyman Rodriguez Primary Care Provider: Worthy,Craig A. Other Providers: Peyman Rodriguez Other Interventions: Discharge Summary Assessment (RN) Last Done: 11/25/21 13:57 Coding Level of Care Code D/C DAY MANAGEMENT >30 MINS Diagnoses Cellulitis of left arm L03.114 Chest pain R07.9 Hypertension I10 GERD (gastroesophageal reflux disease) K21.9 Thrombocytopenia D69.6 COPD (chronic obstructive pulmonary disease) J44.9 COPD type: unspecified COPD Pulmonary hypertension I27.20 Candidiasis of mouth and esophagus B37.81; B37.0 Cirrhosis K74.60 Portal vein thrombosis I81
== END 2021-11-25 14:26 | disposition home or self-care (01) ==
LOC: EDINP 14:06 → ED 14:06 → SUATTDRO 20:00 → 2N 20:47

== ENCOUNTER 2022-05-13 15:56 | Inpatient (IN) ==
--- NOTE | 2022-05-13 16:03 | Emergency Department Note ---
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 (Auto) % Lymph % (Auto) % Tate % (Auto) % Eos % (Auto) % Baso % (Auto) % Neut # (Auto) (1.4-6.5) K/uL Lymph # (Auto) (1.2-3.4) K/uL Tate # (Auto) (0.24-0.82) K/uL Eos # (Auto) (0-0.50) K/uL Baso # (Auto) (0-0.2) K/uL Immature Gran # (Auto) (0.00-0.02) K/uL PT (9.0-12.0) Seconds INR (0.9-1.1) APTT (21.0-31.0) Seconds PTT Ratio VBG pH (7.36-7.41) VBG pCO2 (38-50) mmHg VBG pO2 mmHg VBG HCO3 mmol/L VBG O2 Saturation % VBG Base Excess mEq/L Sodium 133 L (136-145) mmol/L Potassium 3.9 (3.5-5.1) mmol/L Chloride 101 (98-107) mmol/L Carbon Dioxide 25 (21-32) mmol/L Anion Gap 7 (3-11) BUN 26 H (6-23) mg/dl Creatinine 0.90 (0.6-1.4) mg/dl Est Cr Clr Drug Dosing Not Reportable Est GFR ( Amer) 99.9 ml/min Est GFR (Non-Af Amer) 86.2 ml/min BUN/Creatinine Ratio 28.9 H (10-20) Glucose 99 (70-99(Fasting)) mg/dl Lactate 2.3 H* 2.0 (0.4-2.0) mmol/L Calcium 8.0 L (8.5-10.1) mg/dl Magnesium 1.8 (1.7-2.4) mg/dl Total Bilirubin 2.6 H (0.2-1.0) mg/dl AST 52 H (13-39) U/L ALT 27 (7-52) U/L Alkaline Phosphatase 113 H (34-104) U/L Ammonia (18-72) umol/L Troponin I High Sens 66.1 H* D (0-20) pg/ml Total Protein 6.3 (6.0-8.3) gm/dl Albumin 3.0 L (3.4-5.0) gm/dl Globulin 3.3 (2.5-4.0) gm/dl Albumin/Globulin Ratio 0.9 (0.9-2) 07/25/22 Range/Units 19:08 WBC (4.8-10.8) K/ul RBC (4.63-6.08) M/uL Hgb (14.0-18.0) g/dl Hct (40.1-51.0) % MCV (80.0-100.0) fL MCH (25.0-34.0) pg MCHC (32.0-36.0) g/dL RDW Std Deviation (36.4-46.3) fL RDW Coeff of Ramses (11.5-14.5) % Plt Count (130-400) K/uL MPV (9.4-12.4) fL Immature Gran % (Auto) % Neut % (Auto) % Lymph % (Auto) % Tate % (Auto) % Eos % (Auto) % Baso % (Auto) % Neut # (Auto) (1.4-6.5) K/uL Lymph # (Auto) (1.2-3.4) K/uL Tate # (Auto) (0.24-0.82) K/uL Eos # (Auto) (0-0.50) K/uL Baso # (Auto) (0-0.2) K/uL Immature Gran # (Auto) (0.00-0.02) K/uL PT (9.0-12.0) Seconds INR (0.9-1.1) APTT (21.0-31.0) Seconds PTT Ratio VBG pH 7.49 H (7.36-7.41) VBG pCO2 34 L (38-50) mmHg VBG pO2 37 mmHg VBG HCO3 26 mmol/L VBG O2 Saturation 65.0 % VBG Base Excess 2.9 mEq/L Sodium (136-145) mmol/L Potassium (3.5-5.1) mmol/L Chloride (98-107) mmol/L Carbon Dioxide (21-32) mmol/L Anion Gap (3-11) BUN (6-23) mg/dl Creatinine (0.6-1.4) mg/dl Est Cr Clr Drug Dosing Est GFR ( Amer) ml/min Est GFR (Non-Af Amer) ml/min BUN/Creatinine Ratio (10-20) Glucose (70-99(Fasting)) mg/dl Lactate (0.4-2.0) mmol/L Calcium (8.5-10.1) mg/dl Magnesium (1.7-2.4) mg/dl Total Bilirubin (0.2-1.0) mg/dl AST (13-39) U/L ALT (7-52) U/L Alkaline Phosphatase (34-104) U/L Ammonia (18-72) umol/L Troponin I High Sens (0-20) pg/ml Total Protein (6.0-8.3) gm/dl Albumin (3.4-5.0) gm/dl Globulin (2.5-4.0) gm/dl Albumin/Globulin Ratio (0.9-2) Administered Medications Discontinued Medications Acetaminophen (Acetaminophen 1000 Mg/100 Ml Iv) Confirm Administered Dose 1,000 mg IV .STK-MED ONE Stop: 05/13/22 16:14 Last Admin: 05/13/22 16:29 Dose: Not Given Documented By: HG Dexamethasone Sodium Phosphate (DexamethasonePf 10 Mg/Ml Vial) 10 mg IV NOW ONE Stop: 05/13/22 18:58 Last Admin: 05/13/22 19:47 Dose: 10 mg Documented By: HG Furosemide (Furosemide Inj 20 Mg/2 Ml Vial) 20 mg IV ONE STA Stop: 05/13/22 21:47 Last Admin: 05/13/22 22:11 Dose: 20 mg Documented By: MT Sodium Chloride (Nss 1000ml) 1,000 mls @ 999 mls/hr IV .Q1H1M DAVEY Stop: 05/13/22 17:15 Last Infusion: 05/13/22 17:41 Dose: 0 mls/hr Documented By: Admin: 05/13/22 16:39 Dose: 999 mls/hr Documented By: HG Acetaminophen (Ofirmev) 1,000 mg in 100 mls @ 400 mls/hr IV NOW STA Stop: 05/13/22 16:24 Last Infusion: 05/13/22 17:09 Dose: 0 mls/hr Documented By: Admin: 05/13/22 16:29 Dose: 400 mls/hr Documented By: HG Piperacillin Sod/Tazobactam Sod (Zosyn) 4.5 gm in 120 mls @ 240 mls/hr IV NOW ONE Stop: 05/13/22 16:39 Last Infusion: 05/13/22 17:40 Dose: 0 mls/hr Documented By: Admin: 05/13/22 16:40 Dose: 240 mls/hr Documented By: HG Levetiracetam 1,000 mg/ Sodium (Chloride) 110 mls @ 440 mls/hr IV NOW STA Stop: 05/13/22 16:36 Last Infusion: 05/13/22 17:09 Dose: 0 mls/hr Documented By: Admin: 05/13/22 16:39 Dose: 440 mls/hr Documented By: HG Vancomycin HCl 1,250 mg/ (Sodium Chloride) 525 mls @ 200 mls/hr IV NOW ONE Stop: 05/13/22 19:41 Last Infusion: 05/13/22 22:17 Dose: 0 mls/hr Documented By: Admin: 05/13/22 18:58 Dose: 200 mls/hr Documented By: Imaging Data Radiologist's Impression: Chest X-Ray 05/13/22 16:11 XR chest 1V portable CLINICAL HISTORY: SEPSIS. Evaluate cardiopulmonary status COMPARISON STUDY: 04/26/2022 TECHNIQUE: 1 view of the chest FINDINGS: Single frontal view of the chest demonstrates the heart to again be enlarged. There is again asymmetric elevation of the right hemidiaphragm. The lungs are clear of alveolar opacities. There is no evidence for pleural effusion. There is no evidence for vascular congestion. There is no acute osseous pathology. IMPRESSION: 1. No acute cardiopulmonary disease. ACT 112: Negative or not required by law. Electronically signed by: Morris Bustillo M.D. 05/13/2022 4:[address] 05/13/22 16:22 CT OF THE HEAD WITHOUT CONTRAST CLINICAL HISTORY: prior intraparenchymal hemorrhage COMPARISON STUDY: Head CT April 26, 2022. CT DOSE: 994.86 mGycm TECHNIQUE: Helical axial images of the head were obtained without IV contrast. Automated exposure control was utilized for the study. A dose lowering technique was utilized adhering to the principles of ALARA. FINDINGS: A left temporal lobe hematoma is again noted. The attenuation has decreased since prior CT however the size of the hematoma has increased, measuring approximately 5.6 x 5.2 cm. Extensive associated vasogenic edema has progressed with associated increase in significant mass effect, including sulcal effacement, mild compression of the left lateral ventricle and 6 mm of rightward midline shift. Edema extends into the left thalamus, left internal capsule and basal ganglia. Although not present at this time, there is a risk for uncal herniation. No calvarial fracture is identified. As before, left maxillary sinus is diminutive and opacified. IMPRESSION: Increase in size with decrease in attenuation of the left temporal lobe intraparenchymal hematoma measuring approximately 5.6 x 5.2 cm. Significant increase in associated vasogenic edema and mass effect, including sulcal effacement, marked compression of the left lateral ventricle and 6 mm of rightward midline shift. Although not present at this time, risk for uncal herniation. Edema extends into the left thalamus, internal capsule and basal ganglia. Neurosurgical consultation is recommended. Findings discussed with Dr. Heath at time of dictation. ACT 112: Negative or not required by law. Electronically signed by: Karthikeyan Rashid M.D. 05/13/2022 6:14 PM Discharge Plan Visit Data Chief Complaint: Shortness of Breath/Dyspnea ED Provider: Darren Heath
[2022-05-13] MEDS ORDERED: PIPERACILLIN/TAZOBACTAM 4.5 GM/120 ML BAG IV ONE (16:10)
[2022-05-13] MEDS ORDERED: ACETAMINOPHEN 1,000 MG/100 ML VIAL IV STA (16:10)
[2022-05-13] MEDS ORDERED: ACETAMINOPHEN 1000 MG/100 ML IV IV ONE (16:13)
[2022-05-13] MEDS ORDERED: SODIUM CHLORIDE 0.9% 1000ML 1,000 ML IV SCH (16:15)
[2022-05-13] MEDS ORDERED: levETIRAcetam 1,000 MG in 0.9 % SODIUM CHLORIDE 100 ML IV STA (16:22)
[2022-05-13 16:37] LABS: Basophils # (auto) 0.02 K/uL (0-0.2); Basophils % (auto) 0.3 %; Hematocrit (blood only) 33.7 % (40.1-51.0); Hemoglobin 12.1 g/dl (14.0-18.0); Immature Granulocytes # (auto) 0.03 K/uL (0.00-0.02); Immature Granulocytes % (auto) 0.5 %; Lymphocytes # (auto) 0.19 K/uL (1.2-3.4); Lymphocytes % (auto) 2.9 %; Mean Corpuscular Hemoglobin 36.2 pg (25.0-34.0); Mean Corpuscular Hgb Conc 35.9 g/dL (32.0-36.0); Mean Corpuscular Volume 100.9 fL (80.0-100.0); Mean Platelet Volume 10.8 fL (9.4-12.4); Monocytes # (auto) 0.48 K/uL (0.24-0.82); Monocytes % (auto) 7.4 %; Neutrophils # (auto) 5.81 K/uL (1.4-6.5); Neutrophils % (auto) 88.9 %; Platelet Count 104 K/uL (130-400); Red Blood Count 3.34 M/uL (4.63-6.08); White Blood Count 6.53 K/ul (4.8-10.8)
--- NOTE | 2022-05-13 16:44 | XRay Report ---
XR chest 1V portable CLINICAL HISTORY: SEPSIS. Evaluate cardiopulmonary status COMPARISON STUDY: 04/26/2022 TECHNIQUE: 1 view of the chest FINDINGS: Single frontal view of the chest demonstrates the heart to again be enlarged. There is again asymmetr ic elevation of the right hemidiaphragm. The lungs are clear of alveolar opacities. There is no evide nce for pleural effusion. There is no evidence for vascular congestion. There is no acute osseous pat hology. IMPRESSION: 1. No acute cardiopulmonary disease. ACT 112: Negative or not required by law. Electronically signed by: Morris Bustillo M.D. 05/13/2022 4:42 PM
[2022-05-13 16:48] LABS: INR 1.3 (0.9-1.1); Partial Thromboplastin Ratio 1.2; Partial Thromboplastin Time 33.2 Seconds (21.0-31.0); Prothrombin Time 13.7 Seconds (9.0-12.0)
[2022-05-13 17:00] LABS: Alanine Aminotransferase 27 U/L (7-52); Albumin Globulin Ratio 0.9 (0.9-2); Alkaline Phosphatase 113 U/L (34-104); Anion Gap 7 (3-11); Aspartate Aminotransferase 52 U/L (13-39); BUN Creatinine Ratio 28.9 (10-20); Bilirubin,Total 2.6 mg/dl (0.2-1.0); Blood Urea Nitrogen 26 mg/dl (6-23); Carbon Dioxide 25 mmol/L (21-32); Chloride 101 mmol/L (98-107); Est GFR (African American) 99.9 ml/min; Est GFR (Non-African American) 86.2 ml/min; Globulin 3.3 gm/dl (2.5-4.0); Glucose 99 mg/dl (70-99(Fasting)); Magnesium 1.8 mg/dl (1.7-2.4); Potassium 3.9 mmol/L (3.5-5.1); Sodium 133 mmol/L (136-145); Total Protein 6.3 gm/dl (6.0-8.3)
[2022-05-13] MEDS ORDERED: VANCOMYCIN CONSULT ACTIVE PRN (17:04)
[2022-05-13] MEDS ORDERED: VANCOMYCIN HCL 1,250 MG in SODIUM CHLORIDE 0.9% 500 ML IV ONE (17:04)
[2022-05-13 17:06] LABS: Troponin I High Sensitivity 66.1 pg/ml (0-20)
--- NOTE | 2022-05-13 18:16 | CT Scan Report ---
CT OF THE HEAD WITHOUT CONTRAST CLINICAL HISTORY: prior intraparenchymal hemorrhage COMPARISON STUDY: Head CT April 26, 2022. CT DOSE: 994.86 mGycm TECHNIQUE: Helical axial images of the head were obtained without IV contrast. Automated exposure con trol was utilized for the study. A dose lowering technique was utilized adhering to the principles o f ALARA. FINDINGS: A left temporal lobe hematoma is again noted. The attenuation has decreased since prior CT however the size of the hematoma has increased, measuring approximately 5.6 x 5.2 cm. Extensive assoc iated vasogenic edema has progressed with associated increase in significant mass effect, including s ulcal effacement, mild compression of the left lateral ventricle and 6 mm of rightward midline shift. Edema extends into the left thalamus, left internal capsule and basal ganglia. Although not present at this time, there is a risk for uncal herniation. No calvarial fracture is identified. As before, l eft maxillary sinus is diminutive and opacified. IMPRESSION: Increase in size with decrease in attenuation of the left temporal lobe intraparenchymal hematoma measuring approximately 5.6 x 5.2 cm. Significant increase in associated vasogenic edema an d mass effect, including sulcal effacement, marked compression of the left lateral ventricle and 6 mm of rightward midline shift. Although not present at this time, risk for uncal herniation. Edema exte nds into the left thalamus, internal capsule and basal ganglia. Neurosurgical consultation is recomme nded. Findings discussed with Dr. Heath at time of dictation. ACT 112: Negative or not required by law. Electronically signed by: Karthikeyan Rashid M.D. 05/13/2022 6:14 PM
[2022-05-13] MEDS ORDERED: dexAMETHasone**PF** 10 MG/ML VIAL IV ONE (18:57)
[2022-05-13 19:14] LABS: Base Excess VBG 2.9 mEq/L; HCO3 VBG 26 mmol/L; PCO2 VBG 34 mmHg (38-50); PO2 VBG 37 mmHg; pH VBG 7.49 (7.36-7.41)
[2022-05-13] MEDS ORDERED: FUROSEMIDE INJ 20 MG/2 ML VIAL IV STA (21:46)
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
[2022-05-13] MEDS ORDERED: ALBUTEROL 0.083% NEBU SOLN 3 ML VIAL NEB PRN (22:42)
[2022-05-13] MEDS ORDERED: CARBOHYDRATES FOR HYPOGLYCEMIA PO PRN (22:42)
[2022-05-13] MEDS ORDERED: GLUCOSE 10 TAB/TUBE PO PRN (22:42)
[2022-05-13] MEDS ORDERED: GLUCOSE 40% GEL 15 GM TUBE PO PRN (22:42)
[2022-05-13] MEDS ORDERED: DEXTROSE 50% 50 ML SYRINGE IV PRN (22:42)
[2022-05-13] MEDS ORDERED: levETIRAcetam 500 MG TAB PO SCH (22:42)
[2022-05-13] MEDS ORDERED: ACETAMINOPHEN 325 MG TAB PO PRN (22:42)
[2022-05-13] MEDS ORDERED: GLUCAGON FOR INJ 1 MG VIAL SQ PRN (22:42)
[2022-05-13] MEDS ORDERED: LACTULOSE 200GM/700ML WTR ENEMA PR SCH (22:42)
[2022-05-13] MEDS ORDERED: SENNA 8.6 MG TAB PO PRN (22:42)
--- NOTE | 2022-05-13 23:11 | Communication Note ---
Date of Service: May 13, 2022 Due to AMS, patient is at high risk for aspiration - will cancel liquid diet and make him NPO now and order a speech eval for the AM Patient already has a PICC line; consider parenteral nutrition if anticipating extended duration of NPO status Holding home lisinopril due to NPO, will hold off on ordering IV antihypertensive given acceptable BP at this time Converted oral APAP to IV (1000mg q8h) Converted lasix 40mg PO bid to lasix 20mg IV bid Converted keppra 500mg PO bid to 500mg IV bid Converted protonix 40mg PO bid to 40mg IV bid Will hold lactulose given NPO status, consider lactulose CA if patient stays NPO Unable to convert rifaximin to non-PO formulation; hold for now, reassess in AM Resident Activity Tracking Resident Involvement: Resident Care 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
[2022-05-13] MEDS ORDERED: ACETAMINOPHEN 1000 MG/100 ML IV IV SCH (23:15)
[2022-05-14] MEDS: levETIRAcetam 500 MG in 0.9 % SODIUM CHLORIDE 100 ML IV SCH ×3 (00:15→22:50)
[2022-05-14] MEDS: ACETAMINOPHEN 1,000 MG/100 ML VIAL IV SCH ×4 (00:26→21:29)
[2022-05-14] MEDS: AMPICILLIN/SULBACTAM SOD 1,500 MG in 0.9 % SODIUM CHLORIDE 100 ML IV SCH ×2 (00:51→05:49)
[2022-05-14 06:26] LABS: Appearance Urine Clear (Clear); Bilirubin Urine Negative (Negative); Blood Urine Negative (Negative); Color Urine Yellow; Glucose Urine UA Negative (Negative); Ketones Urine Negative (Negative); Leukocyte Esterase Urine Negative (Negative); Nitrite Urine Negative (Negative); Protein Urine Negative (Negative); Specific Gravity Urine 1.017 (1.000-1.030); Urobilinogen Urine Negative (Negative)
[2022-05-14 07:00] LABS: A calco-baum cmplx NotReported Not Detected (NotDetected); Bact fragilis Not Reported Not Detected (NotDetected); C auris Not Reported Not Detected (NotDetected); CTX-M Resistant Gene Not Detected (NotDetected); Calbicans Not Reported Not Detected (NotDetected); Candida glabrata Not Reported Not Detected (NotDetected); Candida krusei Not Reported Not Detected (NotDetected); Cneoformans/gatti Not Reported Not Detected (NotDetected); Cparapsilosis Not Reported Not Detected (NotDetected); Ctropicalis Not Reported Not Detected (NotDetected); E cloacae compx Not Reported Not Detected (NotDetected); Efaecalis Not Reported Not Detected (NotDetected); Efaecium Not Reported Not Detected (NotDetected); Enterobacterales DETECTED (NotDetected); Enterobacterales Not Reported DETECTED (NotDetected); Escherichia coli Not Reported DETECTED (NotDetected); H influenzae Not Reported Not Detected (NotDetected); IMP Resistant Gene Not Detected (NotDetected); KPC Resistant Gene Not Detected (NotDetected); Koxytoca Not Reported Not Detected (NotDetected); Kpneumoniae grp Not Reported Not Detected (NotDetected); Lmonocyt Not Reported Not Detected (NotDetected); N meningitidis Not Reported Not Detected (NotDetected); NDM Resistant Gene Not Detected (NotDetected); OXA 48 Like Resistant Gene Not Detected (NotDetected); P aeruginosa Not Reported Not Detected (NotDetected); Proteus spp Not Reported Not Detected (NotDetected); Salmonella spp Not Reported Not Detected (NotDetected); Smarcescens Not Reported Not Detected (NotDetected); Staph lugdunensis Not Reported Not Detected (NotDetected); Staph spp. Not Reported Not Detected (NotDetected); Staphaureus Not Reported Not Detected (NotDetected); Staphepi Not Reported Not Detected (NotDetected); Stenmaltophilia Not Reported Not Detected (NotDetected); Strep agal(GrpB) Not Reported Not Detected (NotDetected); Strep pneum Not Reported Not Detected (NotDetected); Strep pyog (GrpA) Not Reported Not Detected (NotDetected); Strep spp Not Reported Not Detected (NotDetected); VIM Resistant Gene Not Detected (NotDetected); mcr-1 Colistin Resistant Gene Not Detected (NotDetected)
[2022-05-14 07:09] LABS: K aerogenes Not Reported Not Detected (NotDetected)
[2022-05-14 07:32] LABS: Hematocrit (blood only) 30.8 % (40.1-51.0); Hemoglobin 11.1 g/dl (14.0-18.0); Mean Corpuscular Hemoglobin 36.8 pg (25.0-34.0); Mean Platelet Volume 11.2 fL (9.4-12.4); Platelet Count 78 K/uL (130-400); RDW Standard Deviation 52.5 fL (36.4-46.3); Red Blood Count 3.02 M/uL (4.63-6.08); White Blood Count 4.37 K/ul (4.8-10.8)
[2022-05-14 07:50] LABS: BUN Creatinine Ratio 36.6 (10-20); Calcium 7.6 mg/dl (8.5-10.1); Creatinine Clr Calc Pharmacy 77.5 ml/min; Est GFR (African American) 103.8 ml/min; Est GFR (Non-African American) 89.6 ml/min; Magnesium 1.9 mg/dl (1.7-2.4); Potassium 3.6 mmol/L (3.5-5.1)
--- NOTE | 2022-05-14 07:51 | Hospitalist Progress Note ---
Date of Service May 14, 2022 Assessment & Plan (1) COVID-19: Plan: 71yo male presenting from [facility] with Covid-19 infection. Patient reportedly short of breath at [facility], febrile to 104.7. Patient has received Covid-19 vaccination x 2, no booster. Oxygen saturations have been adequate upon review of EMS and ER documentation. Nursing has been able to wean down O2 effectively. COVID-19 -Elevation of procalcitonin, w/ bacteremia as below Blood cultures 2/4 positive, repeat cultures pending -Admission to PCU -Maintain Covid-19 precautions -Steroids held due to no increased oxygen requirement on admission, initiate if uptrending Remdesivir held on admission as no hypoxia -Supplemental O2 as needed -No DVT chemoprophylaxis given recent intraparenchymal hemorrhage MRSA nare negative Concern for potential aspiration event prior to admission (2) Gram-negative bacteremia: Plan: Blood cultures 2/4 positive, repeat pending Surveillance cultures pending UA noninfected appearing Empiric Unasyn started for possible aspiration event by [facility], blood cultures positive for E. coli. Unasyn expanded to Zosyn pending sensitivities Some grimacing today on abdominal deep palpation,? GI origin/translocation. Creatinine normal baseline. CTA/P with contrast pending for assessment Lactate normal on admission (3) Intraparenchymal hemorrhage of brain: Plan: As above, patient with large left intraparenchymal hemorrhage - admitted to Neurosurgical service at [facility] on 04/26/22. 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 He was treated with FFP, cryoprecipitate, Fibrinogen and Vitamin K. He had a catheter angiogram performed on 04/30/22. Imaging today discussed with Neurosurgery at [facility] - Dr. Sanchez. Thought that imaging is not markedly different from prior. Also thought that given patient's underlying medical comorbidities he would not be a candidate for neurosurgical intervention. -Continue Keppra -Monitor mental status -Neurosurgical followup is to be arranged in one month (4) Alcoholic cirrhosis of liver: Plan: Compensated at present. Patient developed hepatic encephalopathy while at [facility] which was successfully treated with increased dose of lactulose. Lasix 40 mg p.o. twice daily converted to Lasix 20 IV Amiloride held for hyperkalemia Lactulose held while n.p.o., can convert to RI Rifaximin held while n.p.o. Ammonia normal Protonix converted to IV Keppra converted to IV Tylenol converted to dose reduced IV (5) Elevated troponin: Plan: Elevated troponin. lateral EKG changes. Patient does not endorse chest pain, however, unable to provide adequate history -High-sensitivity troponin elevated increased to 700s, now downtrending. DDx includes demand from bacteremia, ACS Patient unable to be anticoagulated or receive periprocedural heparin due to intra parenchymal hemorrhage as noted Patient unable to give meaningful history. Patient is a very high bleeding risk with intraparenchymal hemorrhage with expansion due to end-stage liver disease and coagulopathy. Anticoagulation for ACS, periprocedural heparin for cath, and antiplatelets in the event of stent placed in all with extreme risk for bleeding and patient. Discussed with patient's family and daughter by phone. They recognize his extreme burden of illness, and clinical worsening, and his presentation could be consistent with either demand ischemia or a heart attack; and the recognize that to have a heart attack this would likely be catastrophic to him and he is not a surgical candidate as noted. Would like to continue with treatment of infection and measures as above, avoid anticoagulants/heparinization, and if he were to clinically decline or of intra abdominal abnormality as revealed above with interventions likely to cause him pain or unlikely to be successful would consider palliative options at that point. Echo pending -Telemetry monitoring (6) Hypertension: Plan: Oral antihypertensive held while n.p.o. Blood pressure low/normal this morning (7) GERD (gastroesophageal reflux disease): Plan: Chronic. Stable -Continue Protonix (8) COPD (chronic obstructive pulmonary disease): Plan: Chronic. Presently with no wheeze -Continue Breo as tolerated -Albuterol PRN (9) Blood bacterial culture positive: Plan F/E/N - Heplock. Electrolytes WNL. NPO for cognitive status, Minced/moist diet with aspiration precautions Ppx - SCDs Code - DNR/DNI, possible comfort measures should patient clinically decline Dispo- Admit to PCU Admission and Anticipated Discharge Date Admission Date: May 13, 2022 Douglas Monzon is seen at the bedside in the morning and on Friday reassessment. Severely limited by cognitive status offers sparse one-word or incoherent answers intermittently, no spontaneous speech. Occasional "no to pain ". Does not grimace on light palpation of abdominal, slight grimacing on right and left lower quadrant deep palpation. Answers/gives name, otherwise does not answer orientation questions. Review of Systems Review of Systems: Unobtainable due to cognitive status Physical Exam Physical Exam: General: Appears ill but nontoxic. Opens eyes to voice and arouses easily gives name only. Incoherent answers to other questions. Overall cooperative. HEENT: Atraumatic, normocephalic. Pupils equal and reactive to light. Vision grossly intact, difficult to assess but appears intact. Pulm: CTAB A&P. -wheezes, -rales, -rhonchi. Symmetrical chest rise. No respiratory distress. Cardiac: RRR, -mrg. Radial pulses intact and symmetrical. Abdominal: No grimacing/apparent discomfort on light palpation of abdomen, no involuntary guarding. Some grimacing on deep palpation of right and left abdomen. Extremity: Difficult to assess due to engagement in cognitive status, squeezes and with moderate/weak strength in the hands bilaterally Results & Data Results & Data ([facility]) Vital Signs (Past 12 Hours) Vital Signs Temp Pulse Pulse Resp BP BP Pulse Ox 05/14/22 02:37 36.4 C L 61 18 133/66 98 05/14/22 00:00 65 05/14/22 00:00 05/13/22 23:30 36.5 C 61 18 133/65 99 05/13/22 21:45 124/55 L 05/13/22 21:45 63 14 97 05/13/22 21:40 64 14 97 05/13/22 21:30 62 14 97 05/13/22 21:30 116/53 L 05/13/22 21:20 64 16 98 05/13/22 21:15 65 14 98 05/13/22 21:15 120/54 L 05/13/22 21:10 66 12 97 05/13/22 21:00 67 14 99 05/13/22 21:00 116/53 L 05/13/22 20:50 66 14 98 05/13/22 20:00 22 98 05/13/22 20:45 68 18 98 05/13/22 20:45 112/54 L 05/13/22 20:30 69 15 99 05/13/22 20:30 109/50 L 05/13/22 20:15 67 16 98 05/13/22 20:15 114/49 L 05/13/22 20:00 71 18 98 05/13/22 20:00 129/60 O2 Del Method O2 Flow Rate 05/14/22 02:37 Oxymask 4 05/14/22 00:00 05/14/22 00:00 Oxymask 4 05/13/22 23:30 Oxymask 6 05/13/22 21:45 05/13/22 21:45 Oxymask 4 05/13/22 21:40 Oxymask 4 05/13/22 21:30 Oxymask 4 05/13/22 21:30 05/13/22 21:20 Oxymask 4 05/13/22 21:15 Oxymask 4 05/13/22 21:15 05/13/22 21:10 Oxymask 4 05/13/22 21:00 Oxymask 4 05/13/22 21:00 05/13/22 20:50 Oxymask 4 05/13/22 20:00 Oxymask 4 05/13/22 20:45 Oxymask 4 05/13/22 20:45 05/13/22 20:30 Oxymask 4 05/13/22 20:30 05/13/22 20:15 Oxymask 4 05/13/22 20:15 05/13/22 20:00 Oxymask 4 05/13/22 20:00 PG Care Time/CCT Total # of Minutes Spent Total Time Spent with Patient: Total time spent is greater than 50% in coordination of care (as documented) at patient's floor/unit and/or counseling patient: Coding Level of Care Code 51547 Subseq Hosp Care Lvl 3 Diagnoses COVID-19 U07.1 Gram-negative bacteremia R78.81 Intraparenchymal hemorrhage of brain I61.9 Alcoholic cirrhosis of liver K70.30 Elevated troponin R77.8 Hypertension I10 GERD (gastroesophageal reflux disease) K21.9 COPD (chronic obstructive pulmonary disease) J44.9 COPD type: unspecified COPD Blood bacterial culture positive R78.81 (1) COPD (chronic obstructive pulmonary disease) COPD type: unspecified COPD Qualified Code(s): J44.9 - Chronic obstructive pulmonary disease, unspecified
[2022-05-14] MEDS: FUROSEMIDE INJ 20 MG/2 ML VIAL IV SCH ×2 (08:03→17:30)
[2022-05-14] MEDS: UMECLIDINIUM/VILANTEROL 62.5/25MCG 7 PUFFS/INHALER INH SCH (08:03)
[2022-05-14] MEDS: PANTOprazole 40 MG in SYRINGE 0 ML IV SCH ×2 (08:03→21:26)
[2022-05-14 08:08] LABS: Echinocytes 2+; Immature Granulocytes # (auto) 0.02 K/uL (0.00-0.02); Immature Granulocytes % (auto) 0.5 %; Lymphocytes % (auto) 6.9 %; Monocytes # (auto) 0.15 K/uL (0.24-0.82); Monocytes % (auto) 3.4 %; Neutrophils % (auto) 89.2 %
[2022-05-14] MEDS ORDERED: PIPERACILLIN/TAZOBACTAM 3.375 GM in DEXTROSE 5% 100 ML IV ONE (08:15)
[2022-05-14] MEDS ORDERED: rifAXIMin 550 MG TABLET PO SCH (09:00)
[2022-05-14] MEDS ORDERED: PANTOprazole 40 MG TAB PO SCH (09:00)
[2022-05-14] MEDS ORDERED: FUROSEMIDE 40 MG TAB PO SCH (09:00)
--- NOTE | 2022-05-14 12:33 | Electrocardiogram Report ---
Test Reason : Blood Pressure : / mmHG Vent. Rate : 051 BPM Atrial Rate : 051 BPM P-R Int : 220 ms QRS Dur : 096 ms QT Int : 516 ms P-R-T Axes : 077 020 025 degrees QTc Int : 475 ms Poor data quality, interpretation may be adversely affected Sinus bradycardia with 1st degree A-V block Voltage criteria for left ventricular hypertrophy Abnormal ECG When compared with ECG of 13-MAY-2022 16:20, Vent. rate has decreased BY 40 BPM T wave inversion no longer evident in Anterolateral leads Confirmed by Yomi Hackett ([id number]) on 05/14/2022 12:33:40 PM Referred By: REFERRED SELF Confirmed By:Yomi Hackett
[2022-05-14] MEDS: PIPERACILLIN/TAZOBACTAM 3.375 GM in DEXTROSE 5% 100 ML IV SCH ×2 (13:34→22:50)
--- NOTE | 2022-05-14 14:33 | Electrocardiogram Report ---
Test Reason : Blood Pressure : / mmHG Vent. Rate : 091 BPM Atrial Rate : 091 BPM P-R Int : 218 ms QRS Dur : 080 ms QT Int : 374 ms P-R-T Axes : 041 003 116 degrees QTc Int : 460 ms Poor data quality, interpretation may be adversely affected Sinus rhythm with 1st degree A-V block Left ventricular hypertrophy with repolarization abnormality T wave abnormality, consider anterolateral ischemia Abnormal ECG When compared with ECG of 26-APR-2022 14:18, T wave inversion now evident in Anterolateral leads Confirmed by Yomi Hackett ([id number]) on 05/14/2022 2:33:15 PM Referred By: REFERRED SELF Confirmed By:Yomi Hackett
[2022-05-14] MEDS ORDERED: SODIUM CHLORIDE 0.9% 1000ML 1,000 ML IV SCH (17:15)
[2022-05-14] MEDS ORDERED: NSS + 20MEQ KCL 20 MEQ/1,000 ML BAG IV SCH (17:15)
[2022-05-14] MEDS ORDERED: OPTIRAY 320 100ml IV ONE (21:58)
[2022-05-15] MEDS: ACETAMINOPHEN 1,000 MG/100 ML VIAL IV SCH ×2 (05:33→14:37)
[2022-05-15] MEDS: PIPERACILLIN/TAZOBACTAM 3.375 GM in DEXTROSE 5% 100 ML IV SCH (05:34)
[2022-05-15 07:00] LABS: Hematocrit (blood only) 29.7 % (40.1-51.0); Hemoglobin 10.8 g/dl (14.0-18.0); Immature Granulocytes # (auto) 0.04 K/uL (0.00-0.02); Immature Granulocytes % (auto) 0.6 %; Lymphocytes # (auto) 0.55 K/uL (1.2-3.4); Lymphocytes % (auto) 8.4 %; Mean Corpuscular Hemoglobin 36.1 pg (25.0-34.0); Mean Corpuscular Hgb Conc 36.4 g/dL (32.0-36.0); Mean Corpuscular Volume 99.3 fL (80.0-100.0); Mean Platelet Volume 11.4 fL (9.4-12.4); Monocytes # (auto) 0.94 K/uL (0.24-0.82); Monocytes % (auto) 14.3 %; Neutrophils # (auto) 5.04 K/uL (1.4-6.5); Neutrophils % (auto) 76.7 %; Platelet Count 82 K/uL (130-400); RDW Coefficient of Variation 13.8 % (11.5-14.5); RDW Standard Deviation 50.1 fL (36.4-46.3); Red Blood Count 2.99 M/uL (4.63-6.08); White Blood Count 6.57 K/ul (4.8-10.8)
[2022-05-15 07:26] LABS: BUN Creatinine Ratio 37.1 (10-20); Calcium 7.6 mg/dl (8.5-10.1); Creatinine Clr Calc Pharmacy 71.4 ml/min; Est GFR (African American) 100.4 ml/min; Est GFR (Non-African American) 86.6 ml/min; Potassium 3.4 mmol/L (3.5-5.1)
--- NOTE | 2022-05-15 08:05 | CT Scan Report ---
CT OF THE ABDOMEN AND PELVIS WITH CONTRAST CLINICAL HISTORY: GN bacteremia, fever, abdominal pain. COMPARISON STUDY: CT of the abdomen and pelvis December 28, 2019. Abdominal ultrasound October 31, 2020 . TECHNIQUE: Following IV administration of 94 mL of Optiray, axial images of the abdomen and pelvis we re obtained from the lung bases to the proximal femurs. Images were reviewed in the axial, sagittal, and coronal planes. IV contrast was administered without complication. Automated exposure control wa s utilized for the study. A dose lowering technique was utilized adhering to the principles of ALARA . CT DOSE: 422.32 mGy.cm FINDINGS: No significant abnormality is identified within the lower lungs. No pneumatosis, free air o r portal venous gas is present. Apparent wall thickening of the proximal stomach is similar to prior exams. Sclerosis is noted. No hepatic lesions are identified on this portal venous phase study. As be fore, the main portal vein is diminutive. This is unchanged. Large collaterals are noted. Splenomegal y is noted. Small amount of ascites within the pelvis is present. There is no evidence for a bowel ob struction. Caliber and wall thickness of small and large bowel are normal. The appendix is normal. Ad renal glands, kidneys and pancreas are unremarkable. There is no biliary or pancreatic ductal dilatat ion. Gallbladder is partially collapsed. Penile prosthesis is incidentally noted. Avascular necrosis of both femoral heads is present. No acute fracture or suspicious lesion within the visualized skelet al structures. No fluid collection to suggest an abscess is identified. Extensive aortoiliac atherosc lerotic plaque is present. IMPRESSION: 1. Cirrhosis with manifestations of portal hypertension, including extensive varices formation, splen omegaly and small amount of ascites. 2. No bowel obstruction. No bowel wall thickening. Normal appendix. 3. No definite acute process. ACT 112: Negative or not required by law. Electronically signed by: Karthikeyan Rashid M.D. 05/15/2022 8:04 AM
--- NOTE | 2022-05-15 08:11 | Hospitalist Progress Note ---
Date of Service May 15, 2022 Assessment & Plan (1) COVID-19: Plan: 71yo male presenting from [facility] with Covid-19 infection. Patient reportedly short of breath at [facility], febrile to 104.7. Patient has received Covid-19 vaccination x 2, no booster. Oxygen saturations have been adequate upon review of EMS and ER documentation. COVID-19 -Elevation of procalcitonin, w/ bacteremia as below Blood cultures 2/4 positive, repeat cultures pending - -Maintain Covid-19 precautions - did not meet requirements for steroids or remdesivir, has alternate source for infection -No DVT chemoprophylaxis given recent intraparenchymal hemorrhage MRSA nare negative Concern for potential aspiration event prior to admission (2) Gram-negative bacteremia: Plan: Blood cultures 2/4 positive, Surveillance cultures pending UA noninfected appearing narrowed to Rocephin as preliminary is e coli (3) Intraparenchymal hemorrhage of brain: Plan: As above, patient with large left intraparenchymal hemorrhage - admitted to Neurosurgical service at [facility] on 04/26/22. 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 He was treated with FFP, cryoprecipitate, Fibrinogen and Vitamin K. He had a catheter angiogram performed on 04/30/22. Imaging discussed with Neurosurgery at [facility] - Dr. Sanchez. Thought that imaging is not markedly different from prior. Also thought that given patient's underlying medical comorbidities he would not be a candidate for neurosurgical intervention. -Continue Keppra -Monitor mental status -Neurosurgical followup is to be arranged in one month (4) Alcoholic cirrhosis of liver: Plan: Compensated at present. Patient developed hepatic encephalopathy while at [facility] which was successfully treated with increased dose of lactulose. Lasix 40 mg p.o. twice daily converted to Lasix 20 IV Amiloride held for hyperkalemia Lactulose held while n.p.o., can convert to [place] Rifaximin held while n.p.o. Ammonia normal Protonix converted to Keppra converted to (5) Elevated troponin: Plan: Elevated troponin. lateral EKG changes. Likely nstemi. Patient does not endorse chest pain, however, unable to provide adequate history -High-sensitivity troponin elevated increased to 700s, now downtrending. Patient unable to be anticoagulated or receive periprocedural heparin due to intra parenchymal hemorrhage Patient is a very high bleeding risk with intraparenchymal hemorrhage with expansion due to end-stage liver disease and coagulopathy. This would make Anticoagulation for ACS, periprocedural heparin for cath, and antiplatelets in the event of stent placed in all with extreme risk for bleeding and patient. Previous attending documented that he discussed with patient's family and daughter by phone. They recognize his extreme burden of illness, and clinical worsening, and his presentation could be consistent with either demand ischemia or a heart attack; and the recognize that to have a heart attack this would likely be catastrophic to him and he is not a surgical candidate as noted. Would like to continue with treatment of infection and measures as above, avoid anticoagulants/heparinization, and if he were to clinically decline or of intra abdominal abnormality as revealed above with interventions likely to cause him pain or unlikely to be successful would consider palliative options at that point. Echo pending with covid status (6) Hypertension: Plan: Oral antihypertensive held while n.p.o. Blood pressure stable (7) GERD (gastroesophageal reflux disease): Plan: Chronic. Stable -Continue Protonix (8) COPD (chronic obstructive pulmonary disease): Plan: Chronic. Presently with no wheeze -Continue Breo as tolerated -Albuterol PRN (9) Blood bacterial culture positive: Plan F/E/N - Heplock. Electrolytes WNL. NPO for cognitive status, Minced/moist diet with aspiration precautions Ppx - SCDs Code - DNR/DNI, possible comfort measures should patient clinically decline Dispo- Admit to PCU Admission and Anticipated Discharge Date Admission Date: May 13, 2022 Subjective this pt makes eye contact, only mumbles one word at a time cannot accurately answer ROS seems to be in no distress Review of Systems Review of Systems: Unobtainable due to cognitive status Physical Exam Physical Exam: The patient appeared stable, limited from intracranial hemorrhage Vital signs as documented. Lungs are coarse R> L, does not cough with drinking Cardiac exam, Rhythm is regular.. No murmurs, rubs or gallops. Abdominal exam reveals normal bowel sounds, soft non tender, no masses Extremities are nonedematous and both pedal pulses are normal. Neurologic exam is alert and follows commands Results & Data Results & Data ([facility]) Vital Signs (Past 12 Hours) Vital Signs Temp Pulse Pulse Resp BP Pulse Ox O2 Del Method 05/15/22 07:55 97.5 F L 54 L 16 144/62 H 97 Room Air 05/15/22 02:39 99.3 F 55 L 20 122/78 96 Room Air 05/15/22 00:10 59 L 05/14/22 23:04 Room Air 05/14/22 22:00 99.5 F 57 L 20 128/63 97 Room Air PG Care Time/CCT Total # of Minutes Spent Total Time Spent with Patient: Total time spent is greater than 50% in coordination of care (as documented) at patient's floor/unit and/or counseling patient: Coding Level of Care Code 15211 Subseq Hosp Care Lvl 3 Diagnoses COVID-19 U07.1 Gram-negative bacteremia R78.81 Intraparenchymal hemorrhage of brain I61.9 Alcoholic cirrhosis of liver K70.30 Elevated troponin R77.8 Hypertension I10 GERD (gastroesophageal reflux disease) K21.9 COPD (chronic obstructive pulmonary disease) J44.9 COPD type: unspecified COPD Blood bacterial culture positive R78.81 (1) COPD (chronic obstructive pulmonary disease) COPD type: unspecified COPD Qualified Code(s): J44.9 - Chronic obstructive pulmonary disease, unspecified
[2022-05-15] MEDS: PANTOprazole 40 MG in SYRINGE 0 ML IV SCH (09:19)
[2022-05-15] MEDS: UMECLIDINIUM/VILANTEROL 62.5/25MCG 7 PUFFS/INHALER INH SCH (09:19)
[2022-05-15] MEDS: levETIRAcetam 500 MG in 0.9 % SODIUM CHLORIDE 100 ML IV SCH (11:33)
[2022-05-15] MEDS: POTASSIUM CHLORIDE CRTAB 20 MEQ TABCR PO SCH ×2 (14:37→21:25)
[2022-05-15] MEDS: cefTRIAXone SODIUM 2,000 MG in DEXTROSE 5% 50 ML IV SCH (14:37)
--- NOTE | 2022-05-15 14:40 | Electrocardiogram Report ---
Test Reason : Blood Pressure : / mmHG Vent. Rate : 051 BPM Atrial Rate : 051 BPM P-R Int : 216 ms QRS Dur : 110 ms QT Int : 512 ms P-R-T Axes : 104 049 054 degrees QTc Int : 471 ms Sinus bradycardia with 1st degree A-V block Otherwise normal ECG When compared with ECG of 14-MAY-2022 05:40, T wave amplitude has decreased in Lateral leads Confirmed by Quang Ritter ([id number]) on 05/15/2022 2:39:49 PM Referred By: REFERRED SELF Confirmed By:Quang Ritter
[2022-05-15] MEDS ORDERED: ACETAMINOPHEN 500 MG TAB PO PRN (16:53)
--- NOTE | 2022-05-15 17:10 | XCELERA ---
[id number]
[2022-05-15] MEDS: levETIRAcetam 500 MG TAB PO SCH (17:35)
[2022-05-15] MEDS: PANTOprazole 40 MG TAB PO SCH (21:26)
[2022-05-16] MEDS: levETIRAcetam 500 MG TAB PO SCH ×2 (05:02→17:36)
[2022-05-16 06:15] LABS: Basophils # (auto) 0.01 K/uL (0-0.2); Basophils % (auto) 0.2 %; Eosinophils # (auto) 0.02 K/uL (0-0.50); Eosinophils % (auto) 0.4 %; Hemoglobin 11.2 g/dl (14.0-18.0); Immature Granulocytes # (auto) 0.02 K/uL (0.00-0.02); Immature Granulocytes % (auto) 0.4 %; Lymphocytes # (auto) 0.69 K/uL (1.2-3.4); Lymphocytes % (auto) 14.8 %; Mean Corpuscular Hemoglobin 36.1 pg (25.0-34.0); Mean Corpuscular Hgb Conc 36.1 g/dL (32.0-36.0); Mean Platelet Volume 11.3 fL (9.4-12.4); Monocytes # (auto) 0.56 K/uL (0.24-0.82); Neutrophils # (auto) 3.37 K/uL (1.4-6.5); Neutrophils % (auto) 72.2 %; Platelet Count 77 K/uL (130-400); RDW Standard Deviation 51.5 fL (36.4-46.3); White Blood Count 4.67 K/ul (4.8-10.8)
[2022-05-16 06:47] LABS: Echinocytes 2+
[2022-05-16 06:51] LABS: BUN Creatinine Ratio 31.1 (10-20); Calcium 7.4 mg/dl (8.5-10.1); Creatinine Clr Calc Pharmacy 111.2 ml/min; Est GFR (African American) 117.3 ml/min; Est GFR (Non-African American) 101.2 ml/min; Magnesium 1.7 mg/dl (1.7-2.4); Potassium 3.8 mmol/L (3.5-5.1)
[2022-05-16] MEDS: UMECLIDINIUM/VILANTEROL 62.5/25MCG 7 PUFFS/INHALER INH SCH (08:15)
[2022-05-16] MEDS: PANTOprazole 40 MG TAB PO SCH ×2 (08:15→21:43)
[2022-05-16] MEDS: POTASSIUM CHLORIDE CRTAB 20 MEQ TABCR PO SCH (08:15)
--- NOTE | 2022-05-16 08:32 | Hospitalist Progress Note ---
Date of Service May 16, 2022 Assessment & Plan (1) COVID-19: Plan: 71yo male presenting from [facility] with Covid-19 infection. Patient reportedly short of breath at [facility], febrile to 104.7. Patient has received Covid-19 vaccination x 2, no booster. Oxygen saturations have been adequate upon review of EMS and ER documentation. COVID-19 -Elevation of procalcitonin, w/ bacteremia as below Blood cultures 2/4 positive, repeat cultures 05/14 negative, now lethargic 12/17 - CXR with some mild changes right lung ? pneumonitis, aspiration pneumonia, will add flagyl, however with gram negative bacteremia would not be typical to be pulmonary source as e coli is organism, repeat cmp in am and consider re imaging if concern for gi source repeat procal in am aspiration precautions -Maintain Covid-19 precautions - did not meet requirements for steroids or remdesivir, has alternate source for infection -No DVT chemoprophylaxis given recent intraparenchymal hemorrhage MRSA nare negative Concern for potential aspiration event prior to admission (2) Gram-negative bacteremia: Plan: Blood cultures 2/4 positive, Surveillance cultures pending UA noninfected appearingnarrowed to Rocephin to cover bacteremia, still unclear source (3) Intraparenchymal hemorrhage of brain: Plan: As above, patient with large left intraparenchymal hemorrhage - admitted to [place] [facility] [place]. 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 He was treated with FFP, cryoprecipitate, Fibrinogen and Vitamin K. He had a catheter angiogram performed on 04/30/22. Imaging discussed with Neurosurgery at [facility] [place] Dr. Sanchez. Thought that imaging is not markedly different from prior. Also thought that given patient's underlying medical comorbidities he would not be a candidate for neurosurgical intervention. -Continue Keppra -Monitor mental status -Neurosurgical followup is to be arranged in one month (4) Alcoholic cirrhosis of liver: Plan: Compensated at present. Patient developed hepatic encephalopathy while at [facility] which was successfully treated with increased dose of lactulose. Lasix 40 mg p.o. twice daily converted to Lasix 20 IV Amiloride held for hyperkalemia Lactulose held while n.p.o., can convert to MI Rifaximin held while n.p.o. Ammonia normal Protonix converted to Keppra converted to (5) Elevated troponin: Plan: Elevated troponin. lateral EKG changes. Likely nstemi. Patient does not endorse chest pain, however, unable to provide adequate history -High-sensitivity troponin elevated increased to 700s, now downtrending. Patient unable to be anticoagulated or receive periprocedural heparin due to intra parenchymal hemorrhage Patient is a very high bleeding risk with intraparenchymal hemorrhage with expansion due to end-stage liver disease and coagulopathy. This would make Anticoagulation for ACS, periprocedural heparin for cath, and antiplatelets in the event of stent placed in all with extreme risk for bleeding and patient. Previous attending documented that he discussed with patient's family and daughter by phone. They recognize his extreme burden of illness, and clinical worsening, and his presentation could be consistent with either demand ischemia or a heart attack; and the recognize that to have a heart attack this would likely be catastrophic to him and he is not a surgical candidate as noted. Would like to continue with treatment of infection and measures as above, avoid anticoagulants/heparinization, and if he were to clinically decline or of intra abdominal abnormality as revealed above with interventions likely to cause him pain or unlikely to be successful would consider palliative options at that point. Echo preserved EF, concentric LVH, mild MR (6) Hypertension: Plan: Oral antihypertensive held while n.p.o. Blood pressure stable (7) GERD (gastroesophageal reflux disease): Plan: Chronic. Stable -Continue Protonix (8) COPD (chronic obstructive pulmonary disease): Plan: Chronic. Presently with no wheeze -Continue Breo as tolerated -Albuterol PRN (9) Blood bacterial culture positive: Plan Minced/moist diet with aspiration precautions Ppx - SCDs Code - DNR/DNI, possible comfort measures should patient clinically decline Admission and Anticipated Discharge Date Admission Date: May 13, 2022 Subjective this pt makes eye contact, only mumbles less alert than yesterday cannot accurately answer ROS seems to be in no distress, but more sleepy Review of Systems Review of Systems: Unobtainable due to cognitive status Physical Exam Physical Exam: The patient appeared stable, limited from intracranial hemorrhage pt is more lethargic that 05/15 Vital signs as documented. Lungs are coarse no focal loss of breath sounds Cardiac exam, Rhythm is regular.. No murmurs, rubs or gallops. Abdominal exam reveals normal bowel sounds, soft non tender, no masses Extremities are nonedematous and both pedal pulses are normal. Neurologic exam is alert and follows commands,slighlty more sleepy 05/16/22 Results & Data Results & Data ([facility]) Vital Signs (Past 12 Hours) Vital Signs Temp Pulse Pulse Resp BP Pulse Ox O2 Del Method 05/16/22 07:49 98.4 F 86 19 176/74 H 90 Room Air 05/16/22 04:00 97.9 F 56 L 20 130/61 93 Room Air 05/16/22 00:00 58 L 05/15/22 23:43 97.7 F 56 L 14 143/72 H 93 Room Air PG Care Time/CCT Total # of Minutes Spent Total Time Spent with Patient: Total time spent is greater than 50% in coordination of care (as documented) at patient's floor/unit and/or counseling patient: Coding Level of Care Code 76128 Subseq Hosp Care Lvl 3 Diagnoses COVID-19 U07.1 Gram-negative bacteremia R78.81 Intraparenchymal hemorrhage of brain I61.9 Alcoholic cirrhosis of liver K70.30 Elevated troponin R77.8 Hypertension I10 GERD (gastroesophageal reflux disease) K21.9 COPD (chronic obstructive pulmonary disease) J44.9 COPD type: unspecified COPD Blood bacterial culture positive R78.81 (1) COPD (chronic obstructive pulmonary disease) COPD type: unspecified COPD Qualified Code(s): J44.9 - Chronic obstructive pulmonary disease, unspecified
[2022-05-16] MEDS: cefTRIAXone SODIUM 2,000 MG in DEXTROSE 5% 50 ML IV SCH (13:13)
--- NOTE | 2022-05-16 16:05 | XRay Report ---
XR chest 1V portable CLINICAL HISTORY: fever low oxygen in covid but also cva, ?asp pnx. COMPARISON STUDY: 05/13/2022 TECHNIQUE: 1 view of the chest FINDINGS: Single frontal view of the chest demonstrates the heart to again be enlarged. Compared to previous st udy, there is mild central vascular congestion. There is no evidence for peripheral interstitial or a lveolar edema. There is no evidence for pleural effusion. No confluent alveolar opacities are identif ied. There is no acute osseous pathology. IMPRESSION: 1. Interval development of mild central vascular congestion. ACT 112: Negative or not required by law. Electronically signed by: Morris Bustillo M.D. 05/16/2022 4:03 PM
[2022-05-16] MEDS: metroNIDAZOLE 500 MG/100 ML BAG IV SCH (17:36)
[2022-05-17] MEDS: metroNIDAZOLE 500 MG/100 ML BAG IV SCH ×3 (02:05→17:26)
[2022-05-17] MEDS: levETIRAcetam 500 MG TAB PO SCH ×2 (05:20→17:27)
[2022-05-17 07:14] LABS: Albumin Globulin Ratio 0.9 (0.9-2); Albumin Level 2.2 gm/dl (3.4-5.0); BUN Creatinine Ratio 26.5 (10-20); Bilirubin,Total 1.4 mg/dl (0.2-1.0); Calcium 7.2 mg/dl (8.5-10.1); Creatinine Clr Calc Pharmacy 97.2 ml/min; Est GFR (African American) 112.1 ml/min; Est GFR (Non-African American) 96.8 ml/min; Globulin 2.4 gm/dl (2.5-4.0); Total Protein 4.6 gm/dl (6.0-8.3)
--- NOTE | 2022-05-17 07:18 | Hospitalist Progress Note ---
Date of Service May 17, 2022 Assessment & Plan (1) COVID-19: Plan: 71yo male presenting from [facility] with Covid-19 infection. Patient reportedly short of breath at [facility], febrile to 104.7. Patient has received Covid-19 vaccination x 2, no booster. Oxygen saturations have been adequate upon review of EMS and ER documentation. COVID-19 -Elevation of procalcitonin, w/ bacteremia as below Blood cultures 2/4 positive, repeat cultures 05/14 negative, now lethargic 12/17 - CXR with some mild changes right lung ? pneumonitis, aspiration pneumonia, will add flagyl, however with gram negative bacteremia would not be typical to be pulmonary source as e coli is organism, clinically is stable repeat procal in am 05/17 is elevated, hard to interpret in face of covid, will follow cautiously aspiration precautions, speech did see 05/17 and feels safe for po -Maintain Covid-19 precautions - did not meet requirements for steroids or remdesivir, has alternate source for infection -No DVT chemoprophylaxis given recent intraparenchymal hemorrhage MRSA nare negative Concern for potential aspiration event prior to admission (2) Gram-negative bacteremia: Plan: Blood cultures 2/4 positive, Surveillance cultures pending UA noninfected appearingnarrowed to Rocephin to cover bacteremia, still unclear source (3) Intraparenchymal hemorrhage of brain: Plan: As above, patient with large left intraparenchymal hemorrhage - admitted to Neurosurgical service at [facility] [place]26/[place]. 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 He was treated with FFP, cryoprecipitate, Fibrinogen and Vitamin K. He had a catheter angiogram performed on 04/30/22. Imaging discussed with Neurosurgery at [facility] - Dr. Sanchez. Thought that imaging is not markedly different from prior. Also thought that given patient's underlying medical comorbidities he would not be a candidate for neurosurgical intervention. -Continue Keppra -Monitor mental status -Neurosurgical followup is to be arranged in one month (4) Alcoholic cirrhosis of liver: Plan: Compensated at present. Patient developed hepatic encephalopathy while at [facility] which was successfully treated with increased dose of lactulose. Lasix 40 mg p.o. twice daily converted to Lasix 20 IV Amiloride held for hyperkalemia Lactulose held while n.p.o., can convert to NC Rifaximin held while n.p.o. Ammonia normal Protonix converted to Keppra converted to iv (5) Elevated troponin: Plan: Elevated troponin. lateral EKG changes. Likely nstemi. Patient does not endorse chest pain, however, unable to provide adequate history -High-sensitivity troponin elevated increased to 700s, now downtrending. Patient unable to be anticoagulated or receive periprocedural heparin due to intra parenchymal hemorrhage Patient is a very high bleeding risk with intraparenchymal hemorrhage with expansion due to end-stage liver disease and coagulopathy. This would make Anticoagulation for ACS, periprocedural heparin for cath, and antiplatelets in the event of stent placed in all with extreme risk for bleeding and patient. Previous attending documented that he discussed with patient's family and daughter by phone. They recognize his extreme burden of illness, and clinical worsening, and his presentation could be consistent with either demand ischemia or a heart attack; and the recognize that to have a heart attack this would likely be catastrophic to him and he is not a surgical candidate as noted. Would like to continue with treatment of infection and measures as above, avoid anticoagulants/heparinization, and if he were to clinically decline or of intra abdominal abnormality as revealed above with interventions likely to cause him pain or unlikely to be successful would consider palliative options at that point. Echo preserved EF, concentric LVH, mild MR (6) Hypertension: Plan: Oral antihypertensive on hold Blood pressure stable (7) GERD (gastroesophageal reflux disease): Plan: Chronic. Stable -Continue Protonix (8) COPD (chronic obstructive pulmonary disease): Plan: Chronic. Presently with no wheeze -Continue Breo as tolerated -Albuterol PRN (9) Blood bacterial culture positive: Plan: e coli in one of 4 cultures, no defined source Plan Minced/moist diet with aspiration precautions Ppx - SCDs Code - DNR/DNI, possible comfort measures should patient clinically decline Admission and Anticipated Discharge Date Admission Date: May 13, 2022 Subjective Pt is in his usual state, has elevated CRP but has covid, no increase in oxygen requirement, was placed on flagyl to cover aspiration pneumonia, not escalated cephalosporin Review of Systems 2 Review of Systems: Unobtainable due to cognitive status Physical Exam Physical Exam: The patient appeared stable, limited interaction from intracranial hemorrhage seems back to baseline Vital signs as documented. Lungs are coarse no focal loss of breath sounds, no coughing with feeding, speech did re see and continues po intake Cardiac exam, Rhythm is regular.. No murmurs, rubs or gallops. Abdominal exam reveals normal bowel sounds, soft non tender, no masses Extremities are nonedematous and both pedal pulses are normal. Neurologic exam is alert and follows commands, does not speak Results & Data Results & Data ([facility]) Vital Signs (Past 12 Hours) Vital Signs Temp Pulse Pulse Resp BP Pulse Ox O2 Del Method 05/17/22 04:09 97.7 F 69 20 170/68 H 97 Nasal Cannula 05/17/22 02:50 68 05/16/22 20:00 Room Air 05/16/22 23:34 98.8 F 65 18 154/68 H 98 Nasal Cannula 05/16/22 20:14 98.2 F 72 19 136/53 L 94 Room Air 05/16/22 19:22 98.4 F 77 16 138/63 94 Room Air O2 Flow Rate 05/17/22 04:09 4 05/17/22 02:50 05/16/22 20:00 05/16/22 23:34 4 05/16/22 20:14 05/16/22 19:22 PG Care Time/CCT Total # of Minutes Spent Total Time Spent with Patient: Total time spent is greater than 50% in coordination of care (as documented) at patient's floor/unit and/or counseling patient: Coding Level of Care Code 69264 Subseq Hosp Care Lvl 3 Diagnoses COVID-19 U07.1 Gram-negative bacteremia R78.81 Intraparenchymal hemorrhage of brain I61.9 Alcoholic cirrhosis of liver K70.30 Elevated troponin R77.8 Hypertension I10 GERD (gastroesophageal reflux disease) K21.9 COPD (chronic obstructive pulmonary disease) J44.9 COPD type: unspecified COPD Blood bacterial culture positive R78.81 (1) COPD (chronic obstructive pulmonary disease) COPD type: unspecified COPD Qualified Code(s): J44.9 - Chronic obstructive pulmonary disease, unspecified
[2022-05-17] MEDS: UMECLIDINIUM/VILANTEROL 62.5/25MCG 7 PUFFS/INHALER INH SCH (09:20)
[2022-05-17] MEDS: PANTOprazole 40 MG TAB PO SCH ×2 (09:20→21:39)
[2022-05-17] MEDS: cefTRIAXone SODIUM 2,000 MG in DEXTROSE 5% 50 ML IV SCH (15:01)
[2022-05-18] MEDS: metroNIDAZOLE 500 MG/100 ML BAG IV SCH ×3 (01:15→17:38)
[2022-05-18] MEDS: levETIRAcetam 500 MG TAB PO SCH ×2 (05:52→17:38)
[2022-05-18 06:57] LABS: BUN Creatinine Ratio 28.6 (10-20); C Reactive Protein 2.27 mg/dl (0-0.5); Calcium 7.1 mg/dl (8.5-10.1); Creatinine Clr Calc Pharmacy 118.1 ml/min; Est GFR (African American) 121.5 ml/min; Est GFR (Non-African American) 104.8 ml/min; Potassium 3.7 mmol/L (3.5-5.1)
[2022-05-18 07:42] LABS: Hematocrit (blood only) 29.1 % (40.1-51.0); Hemoglobin 10.3 g/dl (14.0-18.0); Mean Corpuscular Hemoglobin 36.5 pg (25.0-34.0); Mean Corpuscular Hgb Conc 35.4 g/dL (32.0-36.0); Mean Corpuscular Volume 103.2 fL (80.0-100.0); Mean Platelet Volume 11.3 fL (9.4-12.4); Platelet Count 61 K/uL (130-400); RDW Coefficient of Variation 14.3 % (11.5-14.5); RDW Standard Deviation 54.5 fL (36.4-46.3); Red Blood Count 2.82 M/uL (4.63-6.08); White Blood Count 3.41 K/ul (4.8-10.8)
--- NOTE | 2022-05-18 08:02 | Hospitalist Progress Note ---
Date of Service May 18, 2022 Assessment & Plan (1) COVID-19: Plan: 71yo male presenting from [facility] with Covid-19 infection. Patient reportedly short of breath at [facility], febrile to 104.7. Patient has received Covid-19 vaccination x 2, no booster. Oxygen saturations have been stable on room air COVID-19 -Elevation of procalcitonin, w/ bacteremia as below Blood cultures 2/8 positive, repeat cultures 05/14 negative, possible metabolic encephalopathy improved with flagyl - CXR with some mild changes right lung ? pneumonitis, aspiration pneumonia, did add flagyl gram negative bacteremia would not be typical to be pulmonary source as e coli is organism, clinically is stable aspiration precautions, speech did see 05/17 and feels safe for po -Maintain Covid-19 precautions - did not meet requirements for steroids or remdesivir, has alternate source for infection -No DVT chemoprophylaxis given recent intraparenchymal hemorrhage MRSA nare negative Concern for potential aspiration event prior to admission (2) Gram-negative bacteremia: Plan: Blood cultures 2/8 positive, Surveillance cultures negative at this time, UA noninfected appearingnarrowed to Rocephin to cover bacteremia, still unclear source (3) Intraparenchymal hemorrhage of brain: Plan: As above, patient with large left intraparenchymal hemorrhage - [place] [facility] [place] 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 He was treated with FFP, cryoprecipitate, Fibrinogen and Vitamin K. He had a catheter angiogram performed on 04/30/22. Imaging discussed with Neurosurgery [place] [facility] [place]. [place]. Thought that admission CT head imaging is not markedly different from prior. Also thought that given patient's underlying medical comorbidities he would not be a candidate for neurosurgical intervention. -Continue Keppra -Monitor mental status -Neurosurgical followup is to be arranged in one month (4) Alcoholic cirrhosis of liver: Plan: Compensated at present. Patient developed hepatic encephalopathy while at [facility] which was successfully treated with increased dose of lactulose. Lasix 40 mg p.o. twice daily converted to Lasix 20 IV Amiloride held for hyperkalemia ammonia 05/17/22 normal, Lactulose and rifamixin held Protonix (5) Elevated troponin: Plan: Elevated troponin. lateral EKG changes. Likely nstemi. Patient does not endorse chest pain, however, unable to provide adequate history -High-sensitivity troponin elevated increased to 700s, now downtrending. Patient unable to be anticoagulated or receive periprocedural heparin due to intra parenchymal hemorrhage Patient is a very high bleeding risk with intraparenchymal hemorrhage with expansion due to end-stage liver disease and coagulopathy. This would make Anticoagulation for ACS, periprocedural heparin for cath, and antiplatelets in the event of stent placed in all with extreme risk for bleeding and patient. Previous attending documented that he discussed with patient's family and daughter by phone. They recognize his extreme burden of illness, and clinical worsening, and his presentation could be consistent with either demand ischemia or a heart attack; and the recognize that to have a heart attack this would likely be catastrophic to him and he is not a surgical candidate as noted. Would like to continue with treatment of infection and measures as above, avoid anticoagulants/heparinization, and if he were to clinically decline or of intra abdominal abnormality as revealed above with interventions likely to cause him pain or unlikely to be successful would consider palliative options at that point. Echo preserved EF, concentric LVH, mild MR (6) Hypertension: Plan: Oral antihypertensive on hold Blood pressure stable (7) GERD (gastroesophageal reflux disease): Plan: Chronic. Stable -Continue Protonix (8) COPD (chronic obstructive pulmonary disease): Plan: Chronic. Presently with no wheeze -Continue Breo as tolerated -Albuterol PRN (9) Blood bacterial culture positive: Plan: e coli in 2 of 8 cultures, no defined source Plan Minced/moist diet with aspiration precautions Ppx - SCDs Code - DNR/DNI, possible comfort measures should patient clinically decline Admission and Anticipated Discharge Date Admission Date: May 13, 2022 Subjective low grade temp resolved still no defined source for e coli bacteremia, pt seem more bright but not self feeding, one word answers Review of Systems Review of Systems: Unobtainable due to cognitive status Physical Exam Physical Exam: The patient appeared stable, limited interaction from intracranial hemorrhage seems back to baseline Vital signs as documented. Lungs are coarse no focal loss of breath sounds, no coughing with feeding, speech did re see and continues po intake Cardiac exam, Rhythm is regular.. No murmurs, rubs or gallops. Abdominal exam reveals normal bowel sounds, soft non tender, no masses Extremities are nonedematous and both pedal pulses are normal. Neurologic exam is alert and follows commands, does not speak rue is unable to more some movement to LUE Results & Data Results & Data ([facility]) Vital Signs (Past 12 Hours) Vital Signs Temp Pulse Resp BP Pulse Ox O2 Del Method O2 Flow Rate 05/18/22 00:00 98.2 F 65 20 151/66 H 94 Room Air 05/17/22 21:00 Nasal Cannula 2 05/17/22 20:00 98.2 F 70 18 129/51 L 95 Nasal Cannula 2 PG Care Time/CCT Total # of Minutes Spent Total Time Spent with Patient: Total time spent is greater than 50% in coordination of care (as documented) at patient's floor/unit and/or counseling patient: Coding Level of Care Code 49493 Subseq Hosp Care Lvl 2 Diagnoses COVID-19 U07.1 Gram-negative bacteremia R78.81 Intraparenchymal hemorrhage of brain I61.9 Alcoholic cirrhosis of liver K70.30 Elevated troponin R77.8 Hypertension I10 GERD (gastroesophageal reflux disease) K21.9 COPD (chronic obstructive pulmonary disease) J44.9 COPD type: unspecified COPD Blood bacterial culture positive R78.81 (1) COPD (chronic obstructive pulmonary disease) COPD type: unspecified COPD Qualified Code(s): J44.9 - Chronic obstructive pulmonary disease, unspecified
[2022-05-18] MEDS: UMECLIDINIUM/VILANTEROL 62.5/25MCG 7 PUFFS/INHALER INH SCH (09:08)
[2022-05-18] MEDS: PANTOprazole 40 MG TAB PO SCH ×2 (09:08→19:33)
[2022-05-18] MEDS: cefTRIAXone SODIUM 2,000 MG in DEXTROSE 5% 50 ML IV SCH (13:32)
[2022-05-19] MEDS: metroNIDAZOLE 500 MG/100 ML BAG IV SCH ×3 (01:38→17:21)
[2022-05-19] MEDS: levETIRAcetam 500 MG TAB PO SCH ×2 (06:21→17:20)
--- NOTE | 2022-05-19 07:36 | Hospitalist Progress Note ---
Date of Service May 19, 2022 Assessment & Plan (1) COVID-19: Plan: 71yo male presenting from [facility] with Covid-19 infection. Patient reportedly short of breath at [facility], febrile to 104.7. Patient has received Covid-19 vaccination x 2, no booster. Oxygen saturations have been stable on room air COVID-19 -Elevation of procalcitonin, w/ bacteremia as below Blood cultures 2/8 positive, repeat cultures 05/14 negative, possible metabolic encephalopathy improved with flagyl - CXR with some mild changes right lung ? pneumonitis, aspiration pneumonia, did add flagyl gram negative bacteremia would not be typical to be pulmonary source as e coli is organism, clinically is stable aspiration precautions, speech did see 05/17 and feels safe for po -Maintain Covid-19 precautions - did not meet requirements for steroids or remdesivir, has alternate source for infection -No DVT chemoprophylaxis given recent intraparenchymal hemorrhage MRSA nare negative Concern for potential aspiration event prior to admission (2) Gram-negative bacteremia: Plan: Blood cultures 2/8 positive, Surveillance cultures negative at this time, UA noninfected appearingnarrowed to Rocephin to cover bacteremia, still unclear source complete 7 days gram negative bacteremia in concern with flagyl LD 05/22/22 (3) Intraparenchymal hemorrhage of brain: Plan: As above, patient with large left intraparenchymal hemorrhage - admitted to Neurosurgical service at [facility] on 04/26/22. 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 He was treated with FFP, cryoprecipitate, Fibrinogen and Vitamin K. He had a catheter angiogram performed on 04/30/22. Imaging discussed with Neurosurgery at [facility] - Dr. Sanchez. Thought that admission CT head imaging is not markedly different from prior. Also thought that given patient's underlying medical comorbidities he would not be a candidate for neurosurgical intervention. -Continue Keppra -Monitor mental status -Neurosurgical followup is to be arranged in one month (4) Alcoholic cirrhosis of liver: Plan: Compensated at present. Patient developed hepatic encephalopathy while at [facility] which was successfully treated with increased dose of lactulose. Lasix 40 mg p.o. twice daily converted to Lasix 20 IV Amiloride held for hyperkalemia ammonia 05/17/22 normal, Lactulose and rifamixin held Protonix (5) Elevated troponin: Plan: Elevated troponin. lateral EKG changes. Likely nstemi. Patient does not endorse chest pain, however, unable to provide adequate history -High-sensitivity troponin elevated increased to 700s, now downtrending. Patient unable to be anticoagulated or receive periprocedural heparin due to intra parenchymal hemorrhage Patient is a very high bleeding risk with intraparenchymal hemorrhage with expansion due to end-stage liver disease and coagulopathy. This would make Anticoagulation for ACS, periprocedural heparin for cath, and antiplatelets in the event of stent placed in all with extreme risk for bleeding and patient. Previous attending documented that he discussed with patient's family and daughter by phone. They recognize his extreme burden of illness, and clinical worsening, and his presentation could be consistent with either demand ischemia or a heart attack; and the recognize that to have a heart attack this would likely be catastrophic to him and he is not a surgical candidate as noted. Would like to continue with treatment of infection and measures as above, avoid anticoagulants/heparinization, and if he were to clinically decline or of intra abdominal abnormality as revealed above with interventions likely to cause him pain or unlikely to be successful would consider palliative options at that point. Echo preserved EF, concentric LVH, mild MR (6) Hypertension: Plan: Oral antihypertensive on hold Blood pressure stable (7) GERD (gastroesophageal reflux disease): Plan: Chronic. Stable -Continue Protonix (8) COPD (chronic obstructive pulmonary disease): Plan: Chronic. Presently with no wheeze -Continue Breo as tolerated -Albuterol PRN (9) Blood bacterial culture positive: Plan: e coli in 2 of 8 cultures, no defined source Plan Minced/moist diet with aspiration precautions Ppx - SCDs Code - DNR/DNI, possible comfort measures should patient clinically decline Admission and Anticipated Discharge Date Admission Date: May 13, 2022 Subjective low grade temp resolved still no defined source for e coli bacteremia, pt seem more bright but not self feeding, one word answers Review of Systems Review of Systems: Unobtainable due to cognitive status Physical Exam Physical Exam: The patient appeared stable, limited interaction from intracranial hemorrhage seems back to baseline Vital signs as documented. Lungs are coarse no focal loss of breath sounds, no coughing with feeding, speech did re see and continues po intake Cardiac exam, Rhythm is regular.. No murmurs, rubs or gallops. Abdominal exam reveals normal bowel sounds, soft non tender, no masses Extremities are nonedematous and both pedal pulses are normal. Neurologic exam is alert and follows commands, does not speak rue is unable to more some movement to LUE Results & Data Results & Data ([facility]) Vital Signs (Past 12 Hours) Vital Signs Temp Pulse Resp BP Pulse Ox O2 Del Method 05/19/22 07:16 97.7 F 60 15 115/40 L 96 Room Air 05/19/22 00:00 97.3 F L 65 16 124/64 94 Room Air PG Care Time/CCT Total # of Minutes Spent Total Time Spent with Patient: Total time spent is greater than 50% in coordination of care (as documented) at patient's floor/unit and/or counseling patient: Coding Level of Care Code 33277 Subseq Hosp Care Lvl 3 Diagnoses COVID-19 U07.1 Gram-negative bacteremia R78.81 Intraparenchymal hemorrhage of brain I61.9 Alcoholic cirrhosis of liver K70.30 Elevated troponin R77.8 Hypertension I10 GERD (gastroesophageal reflux disease) K21.9 COPD (chronic obstructive pulmonary disease) J44.9 COPD type: unspecified COPD Blood bacterial culture positive R78.81 (1) COPD (chronic obstructive pulmonary disease) COPD type: unspecified COPD Qualified Code(s): J44.9 - Chronic obstructive pulmonary disease, unspecified
[2022-05-19] MEDS: PANTOprazole 40 MG TAB PO SCH ×2 (08:11→21:15)
[2022-05-19] MEDS: UMECLIDINIUM/VILANTEROL 62.5/25MCG 7 PUFFS/INHALER INH SCH (08:11)
[2022-05-19] MEDS: cefTRIAXone SODIUM 2,000 MG in DEXTROSE 5% 50 ML IV SCH (13:06)
[2022-05-19] MEDS ORDERED: guaiFENesin 600 MG TABCR PO ONE (16:46)
[2022-05-19] MEDS ORDERED: guaiFENesin 600 MG TABCR PO SCH (21:00)
[2022-05-20] MEDS: metroNIDAZOLE 500 MG/100 ML BAG IV SCH (01:12)
[2022-05-20] MEDS: guaiFENesin SUGAR FREE 200 MG/10 ML UDC PO SCH ×6 (01:13→21:23)
[2022-05-20] MEDS: levETIRAcetam 500 MG TAB PO SCH ×2 (05:39→17:02)
--- NOTE | 2022-05-20 08:30 | Hospitalist Progress Note ---
Date of Service May 20, 2022 Assessment & Plan (1) COVID-19: Plan: 71yo male presenting from [facility] with Covid-19 infection. Patient reportedly short of breath at [facility] febrile to 104.7. Patient has received Covid-19 vaccination x 2, no booster. Oxygen saturations have been stable on room air COVID-19 -Elevation of procalcitonin, w/ bacteremia as below Blood cultures /8 positive, repeat cultures 05/14 negative, possible metabolic encephalopathy - CXR with some mild changes right lung ? pneumonitis, aspiration pneumonia, did add flagyl gram negative bacteremia would not be typical to be pulmonary source as e coli is organism, clinically is stable aspiration precautions, speech did see 05/17 and feels safe for po -Maintain Covid-19 precautions - did not meet requirements for steroids or remdesivir, has alternate source for infection -No DVT chemoprophylaxis given recent intraparenchymal hemorrhage MRSA nare negative Concern for potential aspiration event prior to admission (2) Gram-negative bacteremia: Plan: Blood cultures 2/8 positive, Surveillance cultures negative at this time, UA noninfected appearingnarrowed to Rocephin to cover bacteremia, still unclear source complete 7 days gram negative bacteremia in concern with flagyl LD 05/22/22 (3) Intraparenchymal hemorrhage of brain: Plan: As above, patient with large left intraparenchymal hemorrhage - admitted to Neurosurgical service at [facility] on 04/26/22. 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 He was treated with FFP, cryoprecipitate, Fibrinogen and Vitamin K. He had a catheter angiogram performed on 04/30/22. Imaging discussed with Neurosurgery at [facility] - Dr. Sanchez. Thought that admission CT head imaging is not markedly different from prior. Also thought that given patient's underlying medical comorbidities he would not be a candidate for neurosurgical intervention. -Continue Keppra -Monitor mental status -Neurosurgical followup is to be arranged in one month (4) Alcoholic cirrhosis of liver: Plan: Compensated at present. Patient developed hepatic encephalopathy while at [facility] which was successfully treated with increased dose of lactulose. Lasix 40 mg p.o. twice daily converted to Lasix 20 IV Amiloride held for hyperkalemia ammonia 05/17/22 normal, Lactulose and rifamixin held Protonix (5) Elevated troponin: Plan: Elevated troponin. lateral EKG changes. Likely nstemi. Patient does not endorse chest pain, however, unable to provide adequate history -High-sensitivity troponin elevated increased to 700s, now downtrending. Patient unable to be anticoagulated or receive periprocedural heparin due to intra parenchymal hemorrhage Patient is a very high bleeding risk with intraparenchymal hemorrhage with expansion due to end-stage liver disease and coagulopathy. This would make Anticoagulation for ACS, periprocedural heparin for cath, and antiplatelets in the event of stent placed in all with extreme risk for bleeding and patient. Previous attending documented that he discussed with patient's family and daughter by phone. They recognize his extreme burden of illness, and clinical worsening, and his presentation could be consistent with either demand ischemia or a heart attack; and the recognize that to have a heart attack this would likely be catastrophic to him and he is not a surgical candidate as noted. Would like to continue with treatment of infection and measures as above, avoid anticoagulants/heparinization, and if he were to clinically decline or of intra abdominal abnormality as revealed above with interventions likely to cause him pain or unlikely to be successful would consider palliative options at that point. Echo preserved EF, concentric LVH, mild MR (6) Hypertension: Plan: Oral antihypertensive on hold Blood pressure stable (7) GERD (gastroesophageal reflux disease): Plan: Chronic. Stable -Continue Protonix (8) COPD (chronic obstructive pulmonary disease): Plan: Chronic. Presently with no wheeze -Continue Breo as tolerated -Albuterol PRN (9) Blood bacterial culture positive: Plan: e coli in 2 of 8 cultures, no defined source Plan Minced/moist diet with aspiration precautions Ppx - SCDs Code - DNR/DNI, possible comfort measures should patient clinically decline Admission and Anticipated Discharge Date Admission Date: May 13, 2022 Subjective pt seems more bright and alert right hemiparesis persists still no defined source for e coli bacteremia, pt seem more bright but not self feeding, one word answers Review of Systems Review of Systems: Unobtainable due to cognitive status Physical Exam Physical Exam: The patient appeared stable, limited interaction from intracranial hemorrhage seems back to baseline Vital signs as documented. Lungs are coarse no focal loss of breath sounds, no coughing with feeding, speech did re see and continues po intake Cardiac exam, Rhythm is regular.. No murmurs, rubs or gallops. Abdominal exam reveals normal bowel sounds, soft non tender, no masses Extremities are nonedematous and both pedal pulses are normal. Neurologic exam is alert and follows commands, does not speak rue is unable to more some movement to LUE Results & Data Results & Data ([facility]) Vital Signs (Past 12 Hours) Vital Signs Temp Pulse Pulse Pulse Resp BP Pulse Ox 05/20/22 08:00 98.2 F 60 18 129/77 96 05/20/22 07:08 58 L 05/20/22 03:00 98.4 F 60 16 129/88 95 05/19/22 23:33 98.4 F 67 14 137/66 92 05/19/22 21:00 97.7 F 68 16 133/56 L 92 O2 Del Method 05/20/22 08:00 05/20/22 07:08 05/20/22 03:00 Room Air 05/19/22 23:33 Room Air 05/19/22 21:00 Room Air PG Care Time/CCT Total # of Minutes Spent Total Time Spent with Patient: Total time spent is greater than 50% in coordination of care (as documented) at patient's floor/unit and/or counseling patient: Coding Level of Care Code 57267 Subseq Hosp Care Lvl 2 Diagnoses COVID-19 U07.1 Gram-negative bacteremia R78.81 Intraparenchymal hemorrhage of brain I61.9 Alcoholic cirrhosis of liver K70.30 Elevated troponin R77.8 Hypertension I10 GERD (gastroesophageal reflux disease) K21.9 COPD (chronic obstructive pulmonary disease) J44.9 COPD type: unspecified COPD Blood bacterial culture positive R78.81 (1) COPD (chronic obstructive pulmonary disease) COPD type: unspecified COPD Qualified Code(s): J44.9 - Chronic obstructive pulmonary disease, unspecified
[2022-05-20] MEDS: UMECLIDINIUM/VILANTEROL 62.5/25MCG 7 PUFFS/INHALER INH SCH (08:40)
[2022-05-20] MEDS: metroNIDAZOLE 500 MG TAB PO SCH ×3 (08:40→22:51)
[2022-05-20] MEDS: PANTOprazole 40 MG TAB PO SCH ×2 (08:41→21:22)
[2022-05-20] MEDS: cefTRIAXone SODIUM 2,000 MG in DEXTROSE 5% 50 ML IV SCH (15:24)
[2022-05-21] MEDS: guaiFENesin SUGAR FREE 200 MG/10 ML UDC PO SCH ×6 (00:55→22:00)
[2022-05-21] MEDS: levETIRAcetam 500 MG TAB PO SCH ×2 (04:57→17:44)
[2022-05-21] MEDS: PANTOprazole 40 MG TAB PO SCH ×2 (09:01→22:00)
[2022-05-21] MEDS: metroNIDAZOLE 500 MG TAB PO SCH ×3 (09:01→22:00)
[2022-05-21] MEDS: UMECLIDINIUM/VILANTEROL 62.5/25MCG 7 PUFFS/INHALER INH SCH (09:02)
[2022-05-21] MEDS: cefTRIAXone SODIUM 2,000 MG in DEXTROSE 5% 50 ML IV SCH (14:26)
--- NOTE | 2022-05-21 17:33 | Hospitalist Progress Note ---
Date of Service May 21, 2022 Assessment & Plan (1) COVID-19: Plan: 71yo male presenting from [facility] with Covid-19 infection. Patient reportedly short of breath at [facility], febrile to 104.7. Patient has received Covid-19 vaccination x 2, no booster. Oxygen saturations have been stable on room air COVID-19 -Elevation of procalcitonin, w/ bacteremia as below Blood cultures 2/8 positive, repeat cultures 05/14 negative, possible metabolic encephalopathy - CXR with some mild changes right lung ? pneumonitis, aspiration pneumonia, did add flagyl gram negative bacteremia would not be typical to be pulmonary source as e coli is organism, clinically is stable aspiration precautions, speech did see 05/17 and feels safe for po -Maintain Covid-19 precautions - did not meet requirements for steroids or remdesivir, has alternate source for infection -No DVT chemoprophylaxis given recent intraparenchymal hemorrhage MRSA nare negative Concern for potential aspiration event prior to admission case management is looking at return to rehab, pt has become stable for transfer but needs much support (2) Gram-negative bacteremia: Plan: Blood cultures 2/8 positive, Surveillance cultures negative at this time, UA noninfected appearingnarrowed to Rocephin to cover bacteremia, still unclear source complete 7 days gram negative bacteremia in concern with flagyl LD 05/22/22 (3) Intraparenchymal hemorrhage of brain: Plan: As above, patient with large left intraparenchymal hemorrhage - admitted to Neurosurgical service at [facility] on 04/26/22. 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 He was treated with FFP, cryoprecipitate, Fibrinogen and Vitamin K. He had a catheter angiogram performed on 04/30/22. Imaging discussed with Neurosurgery at [facility] - Dr. Sanchez. Thought that admission CT head imaging is not markedly different from prior. Also thought that given patient's underlying medical comorbidities he would not be a candidate for neurosurgical intervention. -Continue Keppra -Monitor mental status -Neurosurgical followup is to be arranged in one month after follow up (4) Alcoholic cirrhosis of liver: Plan: Compensated at present. Patient developed hepatic encephalopathy while at [facility] which was successfully treated with increased dose of lactulose. Lasix 40 mg p.o. twice daily converted to Lasix 20 IV Amiloride held for hyperkalemia ammonia 05/17/22 normal, Lactulose and rifamixin held, will need surveilence to see if restart is required at transfer Protonix (5) Elevated troponin: Plan: Elevated troponin. lateral EKG changes. Likely nstemi. Patient does not endorse chest pain, however, unable to provide adequate history -High-sensitivity troponin elevated increased to 700s, now downtrending. Patient unable to be anticoagulated or receive periprocedural heparin due to intra parenchymal hemorrhage Patient is a very high bleeding risk with intraparenchymal hemorrhage with expansion due to end-stage liver disease and coagulopathy. This would make Anticoagulation for ACS, periprocedural heparin for cath, and antiplatelets in the event of stent placed in all with extreme risk for bleeding and patient. Previous attending documented that he discussed with patient's family and daughter by phone. They recognize his extreme burden of illness, and clinical worsening, and his presentation could be consistent with either demand ischemia or a heart attack; and the recognize that to have a heart attack this would likely be catastrophic to him and he is not a surgical candidate as noted. Would like to continue with treatment of infection and measures as above, avoid anticoagulants/heparinization, and if he were to clinically decline or of intra abdominal abnormality as revealed above with interventions likely to cause him pain or unlikely to be successful would consider palliative options at that point. Echo preserved EF, concentric LVH, mild MR (6) Hypertension: Plan: Oral antihypertensive on hold Blood pressure stable (7) GERD (gastroesophageal reflux disease): Plan: Chronic. Stable -Continue Protonix (8) COPD (chronic obstructive pulmonary disease): Plan: Chronic. Presently with no wheeze -Continue Breo as tolerated -Albuterol PRN (9) Blood bacterial culture positive: Plan: e coli in 2 of 8 cultures, no defined source Plan Minced/moist diet with aspiration precautions Ppx - SCDs Code - DNR/DNI, possible comfort measures should patient clinically decline Admission and Anticipated Discharge Date Admission Date: May 13, 2022 Subjective pt seems more bright and alert right hemiparesis persists still no defined source for e coli bacteremia, pt seem more bright but not self feeding, one word answers Review of Systems Review of Systems: Unobtainable due to cognitive status Review of systems Physical Exam Physical Exam: The patient appeared stable, limited interaction from intracranial hemorrhage seems back to baseline Vital signs as documented. Lungs are coarse no focal loss of breath sounds, no coughing with feeding, speech did re see and continues po intake Cardiac exam, Rhythm is regular.. No murmurs, rubs or gallops. Abdominal exam reveals normal bowel sounds, soft non tender, no masses Extremities are nonedematous and both pedal pulses are normal. Neurologic exam is alert and follows commands, does not speak rue is unable to more some movement to LUE Results & Data Results & Data ([facility]) Vital Signs (Past 12 Hours) Vital Signs Temp Pulse Resp BP Pulse Ox O2 Del Method 05/21/22 15:00 98.2 F 68 18 125/76 94 Room Air 05/21/22 08:50 Room Air 05/21/22 08:13 97.9 F 64 14 137/64 92 Room Air PG Care Time/CCT Total # of Minutes Spent Total Time Spent with Patient: Total time spent is greater than 50% in coordination of care (as documented) at patient's floor/unit and/or counseling patient: Coding Level of Care Code 47103 Subseq Hosp Care Lvl 2 Diagnoses COVID-19 U07.1 Gram-negative bacteremia R78.81 Intraparenchymal hemorrhage of brain I61.9 Alcoholic cirrhosis of liver K70.30 Elevated troponin R77.8 Hypertension I10 GERD (gastroesophageal reflux disease) K21.9 COPD (chronic obstructive pulmonary disease) J44.9 COPD type: unspecified COPD Blood bacterial culture positive R78.81 (1) COPD (chronic obstructive pulmonary disease) COPD type: unspecified COPD Qualified Code(s): J44.9 - Chronic obstructive pulmonary disease, unspecified
[2022-05-22] MEDS: guaiFENesin SUGAR FREE 200 MG/10 ML UDC PO SCH ×6 (00:45→20:29)
[2022-05-22] MEDS: levETIRAcetam 500 MG TAB PO SCH ×2 (04:40→17:30)
[2022-05-22] MEDS: metroNIDAZOLE 500 MG TAB PO SCH ×3 (08:14→20:29)
[2022-05-22] MEDS: PANTOprazole 40 MG TAB PO SCH ×2 (08:15→20:23)
[2022-05-22] MEDS: UMECLIDINIUM/VILANTEROL 62.5/25MCG 7 PUFFS/INHALER INH SCH (08:24)
[2022-05-22 09:41] LABS: Albumin Globulin Ratio 0.9 (0.9-2); Albumin Level 2.3 gm/dl (3.4-5.0); BUN Creatinine Ratio 26.6 (10-20); Bilirubin,Total 1.5 mg/dl (0.2-1.0); Calcium 7.4 mg/dl (8.5-10.1); Creatinine Clr Calc Pharmacy 102.5 ml/min; Est GFR (Non-African American) 99.2 ml/min; Globulin 2.7 gm/dl (2.5-4.0); Potassium 3.8 mmol/L (3.5-5.1)
[2022-05-22 09:44] LABS: Basophils # (auto) 0.02 K/uL (0-0.2); Basophils % (auto) 0.4 %; Eosinophils # (auto) 0.21 K/uL (0-0.50); Eosinophils % (auto) 4.5 %; Hematocrit (blood only) 30.3 % (40.1-51.0); Hemoglobin 10.5 g/dl (14.0-18.0); INR 1.4 (0.9-1.1); Immature Granulocytes # (auto) 0.03 K/uL (0.00-0.02); Immature Granulocytes % (auto) 0.6 %; Lymphocytes # (auto) 0.51 K/uL (1.2-3.4); Lymphocytes % (auto) 10.8 %; Mean Corpuscular Hemoglobin 36.2 pg (25.0-34.0); Mean Corpuscular Hgb Conc 34.7 g/dL (32.0-36.0); Mean Corpuscular Volume 104.5 fL (80.0-100.0); Mean Platelet Volume 10.3 fL (9.4-12.4); Monocytes # (auto) 0.54 K/uL (0.24-0.82); Monocytes % (auto) 11.5 %; Neutrophils % (auto) 72.2 %; Ovalocytes 1+; Platelet Count 78 K/uL (130-400); RDW Coefficient of Variation 14.8 % (11.5-14.5); RDW Standard Deviation 56.4 fL (36.4-46.3); White Blood Count 4.71 K/ul (4.8-10.8)
[2022-05-22] MEDS ORDERED: PHYTONADIONE 5 MG TAB PO STA (10:38)
[2022-05-22] MEDS: cefTRIAXone SODIUM 2,000 MG in DEXTROSE 5% 50 ML IV SCH (14:51)
[2022-05-22] MEDS: SODIUM CHLORIDE 1 GM TABLET PO SCH (18:41)
[2022-05-22] MEDS: rifAXIMin 550 MG TABLET PO SCH (20:22)
--- NOTE | 2022-05-22 20:47 | Hospitalist Progress Note ---
Date of Service May 22, 2022 Assessment & Plan (1) COVID-19: Plan: Stable from COVID standpoint. Never met criteria for use of IV dexamethasone therapy or Remdesivir. Vitals and O2 sats stable. Cont airborne isolation. (2) Gram-negative bacteremia: Plan: 2nd to e.coli. Source? GI given his cirrhosis? (bacterial translocation via the gut?). Stable, resolved. Repeat cultures negative. Currently on rocephin - can change to PO cipro tomorrow. Plan 14 days of Rx from date of first negative culture (05/14/22). (3) Intraparenchymal hemorrhage of brain: Plan: Large left intraparenchymal hemorrhage - admitted to Neurosurgical service at [facility] on 04/26/22. 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 He was treated with FFP, cryoprecipitate, Fibrinogen and Vitamin K. He had a catheter angiogram performed on 04/30/22. Imaging discussed with Neurosurgery at [facility] - Dr. Sanchez - at time of this hospital admission. Thought that admission CT head imaging is not markedly different from prior. Continue Keppra for seizure prophylaxis. Will need Neurosurgical followup in 1 month. Mental status appears stable at this time. (4) Alcoholic cirrhosis of liver: Plan: Resume rifamixin for prevention of hepatic encephalopathy. Flagyl would have kept ammonia in check. Since we are d/c the flagyl resume lactulose 15gm daily tomorrow. Aim 2-3 BMs/day. Lasix on hold but currently appears compensated. (5) Elevated troponin: Plan: Likely myocardial demand ischemia in setting of #1, #2 above. (6) Hypertension: Plan: DEEDEE still on hold. Trend BPs. (7) GERD (gastroesophageal reflux disease): Plan: Continue Protonix (8) COPD (chronic obstructive pulmonary disease): Plan: Continue Breo and Albuterol PRN (9) Global aphasia: Plan: 2nd to #3 cont speech services cont pureed diet (10) Hyponatremia: Plan: urine Na <10 c/w solute deficiency in the setting of chronic diuretics, salt restriction, etc start salt tab with NaCL 1gm daily and repeat BMP am (11) Coagulopathy: Plan: INR 1.4 likely from cirrhosis itself can't rule out vitamin K deficiency thus, vit K 5mg po x 1 repeat INR am Plan DNR/DNI Right arm swelling - given the PICC line should check doppler to r/o PICC associated DVT I spoke with med director at his insurance ("[employer]") - they have reversed their decision, inpatient rehab now approved Admission and Anticipated Discharge Date Admission Date: May 13, 2022 Subjective per staff patient eating well but does need assistance incontinent of bowel/bladder stools are soft but not diarrhea during the visit patient with expressive/receptive aphasia followed commands inconsistently unable to express any concerns verbally or otherwise unable to obtain any ROS from him staff report no issues with pain Review of Systems Review of Systems: Other (expressive aphasia) Physical Exam Physical Exam: gen - chronically unwell appearing but NAD mouth - MMM, poor dentition neck - no JVD heart - RRR, s1 s2 lungs - CTA b/l abd - soft NT ext - cool feet, 2+ b/l pulses neuro - strength right arm 3/5, right leg 2-3/5; left arm and leg 5/5; global aphasia; right facial droop musculo - right arm PICC in place; generalized edema of right arm Results & Data Results & Data ([facility]) Vital Signs (Past 12 Hours) Vital Signs Temp Pulse Resp BP Pulse Ox O2 Del Method 05/22/22 14:56 36.8 C 73 16 138/74 95 Room Air Laboratory Results Na 128 urine Na <10 urine osm >600 PG Care Time/CCT Total # of Minutes Spent Total Time Spent with Patient: Total time spent is greater than 50% in coordination of care (as documented) at patient's floor/unit and/or counseling patient: Coding Level of Care Code 23326 Subseq Hosp Care Lvl 3 Diagnoses COVID-19 U07.1 Gram-negative bacteremia R78.81 Intraparenchymal hemorrhage of brain I61.9 Alcoholic cirrhosis of liver K70.30 Elevated troponin R77.8 Hypertension I10 GERD (gastroesophageal reflux disease) K21.9 COPD (chronic obstructive pulmonary disease) J44.9 COPD type: unspecified COPD Global aphasia R47.01 Hyponatremia E87.1 Coagulopathy D68.9 (1) COPD (chronic obstructive pulmonary disease) COPD type: unspecified COPD Qualified Code(s): J44.9 - Chronic obstructive pulmonary disease, unspecified
[2022-05-23] MEDS: guaiFENesin SUGAR FREE 200 MG/10 ML UDC PO SCH ×7 (00:58→23:38)
[2022-05-23] MEDS: levETIRAcetam 500 MG TAB PO SCH ×2 (05:18→17:34)
[2022-05-23 06:05] LABS: INR 1.5 (0.9-1.1); Prothrombin Time 15.3 Seconds (9.0-12.0)
[2022-05-23 06:17] LABS: BUN Creatinine Ratio 32.7 (10-20); Calcium 7.2 mg/dl (8.5-10.1); Creatinine Clr Calc Pharmacy 119.3 ml/min; Est GFR (African American) 122.4 ml/min; Est GFR (Non-African American) 105.6 ml/min; Potassium 3.8 mmol/L (3.5-5.1)
[2022-05-23] MEDS ORDERED: PHYTONADIONE 5 MG TAB PO STA (08:09)
--- NOTE | 2022-05-23 09:35 | Ultrasound Report ---
US venous doppler UE RT HISTORY: 71 years-old Male PICC line in place; edema; eval DVT acute pain and swelling of the right upper extremity with a PICC COMPARISON: None TECHNIQUE: Multiple real-time sonographic images of the right upper extremity deep venous structures were obtained assessing grayscale appearance, color and spectral flow FINDINGS: A right-sided PICC is present. There is occlusive and partially occlusive thrombus of the right upper extremity which involves the subclavian, axillary, and brachial veins. The basilic, radial and ulnar veins appear patent. The cephalic vein is not diagnostically visualized. Subcutaneous edema. IMPRESSION: Likely acute right upper extremity DVT as above. ACT 112: Negative or not required by law. The above report was generated using voice recognition software. It may contain grammatical, syntax o r spelling errors. Electronically signed by: Ronald Dyer M.D. 05/23/2022 9:34 AM
[2022-05-23] MEDS: PANTOprazole 40 MG TAB PO SCH ×2 (09:49→20:27)
[2022-05-23] MEDS: CIPROFLOXACIN 500 MG TAB PO SCH ×2 (09:50→20:27)
[2022-05-23] MEDS: rifAXIMin 550 MG TABLET PO SCH ×2 (09:52→20:27)
[2022-05-23] MEDS: SODIUM CHLORIDE 1 GM TABLET PO SCH (09:53)
[2022-05-23] MEDS: UMECLIDINIUM/VILANTEROL 62.5/25MCG 7 PUFFS/INHALER INH SCH (12:46)
--- NOTE | 2022-05-23 20:25 | Hospitalist Progress Note ---
Date of Service May 23, 2022 Assessment & Plan (1) COVID-19: Plan: Stable from COVID standpoint. Minimal or zero symptoms at this time. Never met criteria for use of IV dexamethasone therapy or Remdesivir. Vitals and O2 sats stable. Cont airborne isolation per infection control guidelines. Date of first positive test - 05/13/22 (about 10-11 days ago). (2) Gram-negative bacteremia: Plan: 2nd to e.coli. Source? GI given his cirrhosis? (bacterial translocation via the gut?). Stable, resolved. Repeat cultures negative. Currently on rocephin - change to PO cipro 500mg BID today. Plan 14 days of Rx from date of first negative culture (05/14/22). (3) Intraparenchymal hemorrhage of brain: Plan: Large left intraparenchymal hemorrhage - [place] to [place] [facility] [place]. 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 He was treated with FFP, cryoprecipitate, Fibrinogen and Vitamin K. He had a catheter angiogram performed on 04/30/22. Imaging discussed with Neurosurgery [place] [facility] [place] - at time of this hospital admission. Thought that admission CT head imaging is not markedly different from prior. Continue Keppra for seizure prophylaxis. Neurological exam and Mental status stable. Patient due for MRI brain and MRA head in 5 days - will simply obtain these a few days earlier. This will save him a lengthy trip to [place] next week. (4) Alcoholic cirrhosis of liver: Plan: Resumed rifamixin for prevention of hepatic encephalopathy. Flagyl would have kept ammonia in check. Since we are d/c the flagyl resume lactulose 15gm daily. Aim 2-3 BMs/day. Lasix on hold but currently appears compensated. (5) Elevated troponin: Plan: Likely myocardial demand ischemia in setting of #1, #2 above. (6) Hypertension: Plan: DEEDEE still on hold but BPs rising - will resume. Trend BPs. (7) GERD (gastroesophageal reflux disease): Plan: Continue Protonix (8) COPD (chronic obstructive pulmonary disease): Plan: Continue Breo and Albuterol PRN (9) Global aphasia: Plan: 2nd to #3 cont speech services cont pureed diet (10) Hyponatremia: Plan: urine Na <10 c/w solute deficiency in the setting of chronic diuretics, salt restriction, etc started salt tab with NaCL 1gm daily Na improved to 131 today repeat BMP am (11) Coagulopathy: Plan: INR 1.5 likely from cirrhosis itself can't rule out vitamin K deficiency thus, vit K 5mg po x 1 yesterday and again today repeat INR am (12) Deep vein thrombosis (DVT) of right upper extremity: Plan: PICC-associated DVT in the setting of right arm weakness from intracerebral hemorrhage last month as well as COVID illness. PICC discontinued. Unfortunately he is NOT an anticoagulation candidate given #3. Risk of DVT propagation and development of PEs is low with upper extremity DVT. [id number] there is still a chance. This was communicated to his daughter and she voiced understanding. Plan DNR/DNI if stable overnight and if labs in am are stable (and if MRI brain/MRA head are acceptable) can likely d/c to [facility] tomorrow total care time today - 45 min Admission and Anticipated Discharge Date Admission Date: May 13, 2022 Subjective this am a RUE doppler was obtained because of edema of that arm and it returned + for DVT order for PICC removal given - IV team discontinued such I spoke extensively with the pt's daughter Ankita by phone earlier today we discussed the RUE doppler showing DVT, inability to give him anticoagulation, etc we discussed PICC removal Ankita would like her father to return to [facility] to give him his best opportunity to recover from his [employer] bleeding event he was there only a few days before he had to come back to the hospital she understands that his prognosis is guarded but wants to see if he can make progress she visited her father yesterday and he was trying to vocalize certain words she mentioned that the neurosurgeon at [place], Dr Guerra, has recommended MRI brain and MRA head around May 29 he has a scheduled f/u appt with Dr Guerra on June 03 staff report ongoing decent appetite Review of Systems Review of Systems: Other (expressive aphasia ) Physical Exam Physical Exam: gen - chronically unwell appearing but NAD, global aphasia but is trying to say single words today mouth - MMM, poor dentition neck - no JVD heart - RRR, s1 s2, no murmur lungs - CTA b/l abd - soft NT; mildly distended; BS+ ext - 2+ b/l pulses feet; no edema neuro - strength right arm 3+/5, right leg 2-3 (perhaps slightly closer to 3 today)/5; left arm and leg 5/5; global aphasia; right facial droop musculo - right arm PICC removed; generalized edema of right arm Results & Data Results & Data ([facility]) Vital Signs (Past 12 Hours) Vital Signs Temp Pulse Resp BP Pulse Ox O2 Del Method 05/23/22 17:44 36.8 C 71 16 152/67 H 95 Room Air 05/23/22 09:00 Room Air Laboratory Results Laboratory Results - last 24 hr 05/23/22 05/23/22 05:19 05:19 PT 15.3 H INR 1.5 H Sodium 131 L Potassium 3.8 Chloride 103 Carbon Dioxide 25 Anion Gap 3 BUN 18 Creatinine 0.55 L Est Cr Clr Drug Dosing 119.3 Est GFR ( Amer) 122.4 Est GFR (Non-Af Amer) 105.6 BUN/Creatinine Ratio 32.7 H Glucose 85 Calcium 7.2 L Diagnostic Findings Venous Doppler Study 05/23/22 08:09 US venous doppler UE RT HISTORY: 71 years-old Male PICC line in place; edema; eval DVT acute pain and swelling of the right upper extremity with a PICC COMPARISON: None TECHNIQUE: Multiple real-time sonographic images of the right upper extremity deep venous structures were obtained assessing grayscale appearance, color and spectral flow FINDINGS: A right-sided PICC is present. There is occlusive and partially occlusive thrombus of the right upper extremity which involves the subclavian, axillary, and brachial veins. The basilic, radial and ulnar veins appear patent. The cephalic vein is not diagnostically visualized. Subcutaneous edema. IMPRESSION: Likely acute right upper extremity DVT as above. ACT 112: Negative or not required by law. The above report was generated using voice recognition software. It may contain grammatical, syntax or spelling errors. Electronically signed by: Ronald Dyer M.D. 05/23/2022 9:34 AM PG Care Time/CCT Total # of Minutes Spent Total Time Spent with Patient: Total time spent is greater than 50% in coordination of care (as documented) at patient's floor/unit and/or counseling patient: Coding Level of Care Code 26200 Subseq Hosp Care Lvl 3 Diagnoses COVID-19 U07.1 Gram-negative bacteremia R78.81 Intraparenchymal hemorrhage of brain I61.9 Alcoholic cirrhosis of liver K70.30 Elevated troponin R77.8 Hypertension I10 GERD (gastroesophageal reflux disease) K21.9 COPD (chronic obstructive pulmonary disease) J44.9 COPD type: unspecified COPD Global aphasia R47.01 Hyponatremia E87.1 Coagulopathy D68.9 Deep vein thrombosis (DVT) of right upper extremity I82.621 (1) COPD (chronic obstructive pulmonary disease) COPD type: unspecified COPD Qualified Code(s): J44.9 - Chronic obstructive pulmonary disease, unspecified
[2022-05-23] MEDS ORDERED: GADOBUTROL 65ML VIAL IV ONE (23:25)
[2022-05-24] MEDS: levETIRAcetam 500 MG TAB PO SCH ×2 (04:42→17:18)
[2022-05-24] MEDS: guaiFENesin SUGAR FREE 200 MG/10 ML UDC PO SCH ×5 (04:42→21:46)
[2022-05-24 06:50] LABS: Hematocrit (blood only) 30.5 % (40.1-51.0); Hemoglobin 10.6 g/dl (14.0-18.0); Mean Platelet Volume 10.7 fL (9.4-12.4); Platelet Count 83 K/uL (130-400); White Blood Count 4.62 K/ul (4.8-10.8)
[2022-05-24 07:00] LABS: INR 1.5 (0.9-1.1); Prothrombin Time 15.2 Seconds (9.0-12.0)
[2022-05-24 07:16] LABS: BUN Creatinine Ratio 30.3 (10-20); Calcium 7.3 mg/dl (8.5-10.1); Creatinine Clr Calc Pharmacy 99.4 ml/min; Est GFR (African American) 113.5 ml/min; Potassium 4.1 mmol/L (3.5-5.1)
[2022-05-24 07:19] LABS: Mean Corpuscular Hemoglobin 36.6 pg (25.0-34.0); Mean Corpuscular Hgb Conc 34.8 g/dL (32.0-36.0); Mean Corpuscular Volume 105.2 fL (80.0-100.0); Platelet Estimate Decreased (Normal); RDW Coefficient of Variation 14.7 % (11.5-14.5); RDW Standard Deviation 57.1 fL (36.4-46.3)
--- NOTE | 2022-05-24 07:28 | Magnetic Resonance Report ---
MR ANGIOGRAM OF THE BRAIN CLINICAL HISTORY: Intracranial hemorrhage. COMPARISON STUDY: CT of the brain dated 05/13/2022. MRI of the brain dated 05/23/2022.. TECHNIQUE: 3-D [id number] MR angiography of the intracranial circulation is performed. 3-D tumble views are created and assessed. IV contrast was not administered for this examination. The examinati on is degraded by motion artifact. FINDINGS: The internal carotid arteries are widely patent bilaterally, as are the anterior and middle cerebral arteries. There is origin of the left posterior cerebral artery. A posterior communic ating artery is noted on the right. The vertebrobasilar system and posterior cerebral arteries are wi patti patent. The vertebral arteries are codominant. There is no aneurysm, high-grade stenosis, or foc al vessel cutoff seen throughout the intracranial circulation. A large hemorrhage is again seen cente red in the left temporal lobe. IMPRESSION: Unremarkable MR angiogram of the brain. ACT 112: Negative or not required by law. Electronically signed by: Anuj Dominguez M.D. 05/24/2022 7:27 AM
[2022-05-24] MEDS: UMECLIDINIUM/VILANTEROL 62.5/25MCG 7 PUFFS/INHALER INH SCH (09:06)
[2022-05-24] MEDS: SODIUM CHLORIDE 1 GM TABLET PO SCH (09:07)
[2022-05-24] MEDS: rifAXIMin 550 MG TABLET PO SCH ×2 (09:07→21:48)
[2022-05-24] MEDS: CIPROFLOXACIN 500 MG TAB PO SCH ×2 (09:07→21:47)
[2022-05-24] MEDS: PANTOprazole 40 MG TAB PO SCH ×2 (09:07→21:48)
--- NOTE | 2022-05-24 09:16 | Magnetic Resonance Report ---
MRI OF THE BRAIN WITHOUT AND WITH IV CONTRAST CLINICAL HISTORY: Follow up intracranial hemorrhage. COMPARISON STUDY: Head CT May 13, 2022. TECHNIQUE: Utilizing a 1.5 Renetta magnet and dedicated coil, multiplanar, multiecho imaging of the br ain was performed pre and postcontrast administration. IV administration of 6.5 mL of Gadavist contr ast was uneventful. FINDINGS: There are no foci of restricted diffusion to suggest acute infarct. Note is again made of a large left temporal lobe intraparenchymal hematoma. This is similar in size to CT of May 13, 2022 w hen allowing for differences in technique. This measures 6 x 5 cm. This is T1 and T2 hyperintense wit h layering T2 hypointense material. This favors a late subacute hematoma given the signal characteris tics. Extensive associated vasogenic edema with mass effect is similar to prior CT of May 13, 2022. Marked compression of the left lateral ventricle and 6 mm of rightward midline shift is unchanged. Th is edema extends into the left basal ganglia as shown on CT. No new sites of hemorrhage are present. This contains a T2 hypointense rim suggestive of hemosiderin. No definite lesion enhancement is noted . Calvarial signal is within normal limits. Air-fluid level within the right maxillary sinus is noted . Left maxillary sinus is diminutive with mucosal thickening. This is chronic. There is moderate ethm oid and right frontal sinus mucosal thickening. IMPRESSION: 1. Large late subacute intraparenchymal hematoma within the left temporal lobe, measuring 6 x 5 cm. T his is similar in size to head CT of May 13, 2022. Stable significant associated mass effect, includ ing compression of the left lateral ventricle and 6 mm of rightward midline shift. No definite underl phoebe lesion however imaging follow-up to ensure resolution is recommended to exclude this possibility . 2. No evidence for acute infarct. 3. Air-fluid level within the right maxillary sinus suggestive of acute sinusitis. Chronic left maxil nish sinusitis. ACT 112: Negative or not required by law. Electronically signed by: Karthikeyan Rashid M.D. 05/24/2022 9:14 AM
--- NOTE | 2022-05-24 12:10 | Hospitalist Progress Note ---
Date of Service May 24, 2022 Assessment & Plan (1) COVID-19: Plan: Stable from COVID standpoint. Minimal or zero symptoms at this time. Never met criteria for use of IV dexamethasone therapy or Remdesivir. Vitals and O2 sats stable. Cont airborne isolation per infection control guidelines. Date of first positive test - 05/13/22 (about 10-11 days ago). Suspect we can d/c airborne as early as tomorrow. (2) Gram-negative bacteremia: Plan: 2nd to e.coli. Source? GI given his cirrhosis? (bacterial translocation via the gut?). Stable, resolved. Repeat cultures negative. Cont PO cipro 500mg BID. Plan 14 days of Rx from date of first negative culture (05/14/22). Thus, today is day #11 of 14. (3) Intraparenchymal hemorrhage of brain: Plan: Large left intraparenchymal hemorrhage - admitted to Neurosurgical service at [facility] on 04/26/22. 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 He was treated with FFP, cryoprecipitate, Fibrinogen and Vitamin K. He had a catheter angiogram performed on 04/30/22. Imaging discussed with Neurosurgery at [facility] - Dr. Sanchez - at time of this hospital admission. Thought that admission CT head imaging is not markedly different from prior. Continue Keppra for seizure prophylaxis. Neurological exam and Mental status stable. Neurosurgery at [facility] was to order MRI brain and MRA head on 05/29. I simply obtained these now for simplicity sake. Imaging noted. Stable. Films "pushed" to [facility] via PACs. Films also placed on CD-ROM for patient as back-up. (4) Alcoholic cirrhosis of liver: Plan: Resumed rifamixin for prevention of hepatic encephalopathy. Flagyl would have kept ammonia in check. Since we are d/c the flagyl resume lactulose 15gm daily. Aim 2-3 BMs/day. Lasix on hold but currently appears compensated. (5) Elevated troponin: Plan: Likely myocardial demand ischemia in setting of #1, #2 above. (6) Hypertension: Plan: Cont DEEDEE (7) GERD (gastroesophageal reflux disease): Plan: Continue Protonix (8) COPD (chronic obstructive pulmonary disease): Plan: Continue Breo and Albuterol PRN No flare (9) Global aphasia: Plan: 2nd to #3 cont speech services cont pureed diet slightly improved last 48 hours but still dense (10) Hyponatremia: Plan: urine Na <10 c/w solute deficiency in the setting of chronic diuretics, salt restriction, etc started salt tab with NaCL 1gm daily Na improved to 133 today cont NACL supplementation repeat BMP am (11) Coagulopathy: Plan: INR 1.5 likely from cirrhosis itself despite vit K x 2 no improvement thus likely no vit K deficiency (12) Deep vein thrombosis (DVT) of right upper extremity: Plan: PICC-associated DVT in the setting of right arm weakness from intracerebral hemorrhage last month as well as COVID illness. PICC discontinued. Unfortunately he is NOT an anticoagulation candidate given #3. Risk of DVT propagation and development of PEs is low with upper extremity DVT. [id number] there is still a chance. This was communicated to his daughter and she voiced understanding. (13) Diarrhea: Plan: c diff neg abx-associated diarrhea lactinex ordered hold lactulose today Plan DNR/DNI accepted to [facility] awaiting transport likely d/c on Friday daughter updated extensively by phone today Admission and Anticipated Discharge Date Admission Date: May 13, 2022 Subjective per staff having multiple soft BMs/day (at least 3-4/day) not liquid, no blood still eating well during my bedside visit still with dense global aphasia, although he said "thank u" when I waved at him good-bye he was unable to provide any meaningful history or ROS due to the global aphasia Review of Systems Review of Systems: Unobtainable due to cognitive status (and global aphasia) Physical Exam Physical Exam: gen - chronically unwell appearing but NAD, global aphasia as previous mouth - poor dentition neck - no JVD heart - RRR, s1 s2, no murmur lungs - CTA b/l abd - soft NT; mildly distended; BS+ ext - 2+ b/l pulses feet; no edema neuro - strength right arm 3-4/5, right leg nearly 3/5 today (can hold against gravity although poorly); global aphasia; right facial droop musculo - generalized edema of right arm improved Results & Data Results & Data ([facility]) Vital Signs (Past 12 Hours) Vital Signs Temp Pulse Resp BP Pulse Ox O2 Del Method 05/24/22 09:21 36.8 C 70 18 110/51 L 92 Room Air Laboratory Results Laboratory Results - last 24 hr 05/24/22 05/24/22 05/24/22 06:08 06:08 06:08 WBC 4.62 L RBC 2.90 L Hgb 10.6 L Hct 30.5 L MCV 105.2 H MCH 36.6 H MCHC 34.8 RDW Std Deviation 57.1 H RDW Coeff of Ramses 14.7 H Plt Count 83 L MPV 10.7 Platelet Estimate Decreased L PT 15.2 H INR 1.5 H Sodium 133 L Potassium 4.1 Chloride 105 Carbon Dioxide 26 Anion Gap 2 L BUN 20 Creatinine 0.66 Est Cr Clr Drug Dosing 99.4 Est GFR ( Amer) 113.5 Est GFR (Non-Af Amer) 98.0 BUN/Creatinine Ratio 30.3 H Glucose 103 H Calcium 7.3 L Stl C. diff Tox B Gene 05/24/22 09:23 WBC RBC Hgb Hct MCV MCH MCHC RDW Std Deviation RDW Coeff of Ramses Plt Count MPV Platelet Estimate PT INR Sodium Potassium Chloride Carbon Dioxide Anion Gap BUN Creatinine Est Cr Clr Drug Dosing Est GFR ( Amer) Est GFR (Non-Af Amer) BUN/Creatinine Ratio Glucose Calcium Stl C. diff Tox B Gene Negative Cdiff Gene Diagnostic Findings Brain MRI 05/23/22 15:35 MRI OF THE BRAIN WITHOUT AND WITH IV CONTRAST CLINICAL HISTORY: Follow up intracranial hemorrhage. COMPARISON STUDY: Head CT May 13, 2022. TECHNIQUE: Utilizing a 1.5 Renetta magnet and dedicated coil, multiplanar, multiecho imaging of the brain was performed pre and postcontrast administration. IV administration of 6.5 mL of Gadavist contrast was uneventful. FINDINGS: There are no foci of restricted diffusion to suggest acute infarct. Note is again made of a large left temporal lobe intraparenchymal hematoma. This is similar in size to CT of May 13, 2022 when allowing for differences in technique. This measures 6 x 5 cm. This is T1 and T2 hyperintense with layering T2 hypointense material. This favors a late subacute hematoma given the signal characteristics. Extensive associated vasogenic edema with mass effect is similar to prior CT of May 13, 2022. Marked compression of the left lateral ventricle and 6 mm of rightward midline shift is unchanged. This edema extends into the left basal ganglia as shown on CT. No new sites of hemorrhage are present. This contains a T2 hypointense rim suggestive of hemosiderin. No definite lesion enhancement is noted. Calvarial signal is within normal limits. Air-fluid level within the right maxillary sinus is noted. Left maxillary sinus is diminutive with mucosal thickening. This is chronic. There is moderate ethmoid and right frontal sinus mucosal thickening. IMPRESSION: 1. Large late subacute intraparenchymal hematoma within the left temporal lobe, measuring 6 x 5 cm. This is similar in size to head CT of May 13, 2022. Stable significant associated mass effect, including compression of the left lateral ventricle and 6 mm of rightward midline shift. No definite underlying lesion however imaging follow-up to ensure resolution is recommended to exclude this possibility. 2. No evidence for acute infarct. 3. Air-fluid level within the right maxillary sinus suggestive of acute sinusitis. Chronic left maxillary sinusitis. ACT 112: Negative or not required by law. Electronically signed by: Karthikeyan Rashid M.D. 05/24/2022 9:14 AM Head MRA 05/23/22 15:35 MR ANGIOGRAM OF THE BRAIN CLINICAL HISTORY: Intracranial hemorrhage. COMPARISON STUDY: CT of the brain dated 05/13/2022. MRI of the brain dated 05/23/2022.. TECHNIQUE: 3-D [id number] MR angiography of the intracranial circulation is performed. 3-D tumble views are created and assessed. IV contrast was not administered for this examination. The examination is degraded by motion artifact. FINDINGS: The internal carotid arteries are widely patent bilaterally, as are the anterior and middle cerebral arteries. There is origin of the left posterior cerebral artery. A posterior communicating artery is noted on the right. The vertebrobasilar system and posterior cerebral arteries are widely patent. The vertebral arteries are codominant. There is no aneurysm, high-grade stenosis, or focal vessel cutoff seen throughout the intracranial circulation. A large hemorrhage is again seen centered in the left temporal lobe. IMPRESSION: Unremarkable MR angiogram of the brain. ACT 112: Negative or not required by law. Electronically signed by: Anuj Dominguez M.D. 05/24/2022 7:27 AM PG Care Time/CCT Total # of Minutes Spent Total Time Spent with Patient: Total time spent is greater than 50% in coordination of care (as documented) at patient's floor/unit and/or counseling patient: Coding Level of Care Code 60700 Subseq Hosp Care Lvl 2 Diagnoses COVID-19 U07.1 Gram-negative bacteremia R78.81 Intraparenchymal hemorrhage of brain I61.9 Alcoholic cirrhosis of liver K70.30 Elevated troponin R77.8 Hypertension I10 GERD (gastroesophageal reflux disease) K21.9 COPD (chronic obstructive pulmonary disease) J44.9 COPD type: unspecified COPD Global aphasia R47.01 Hyponatremia E87.1 Coagulopathy D68.9 Deep vein thrombosis (DVT) of right upper extremity I82.621 Diarrhea R19.7 (1) COPD (chronic obstructive pulmonary disease) COPD type: unspecified COPD Qualified Code(s): J44.9 - Chronic obstructive pulmonary disease, unspecified
[2022-05-24] MEDS: ADVANCED PROBIOTIC 1250 MG CAPSULE PO SCH (12:34)
[2022-05-24] MEDS: LACTULOSE SYRUP 20 GM/30 ML UDC PO SCH (12:35)
[2022-05-24] MEDS: lisinopril 5 MG TAB PO SCH (13:03)
[2022-05-25] MEDS: guaiFENesin SUGAR FREE 200 MG/10 ML UDC PO SCH ×6 (00:37→20:30)
[2022-05-25] MEDS: levETIRAcetam 500 MG TAB PO SCH ×2 (05:30→17:55)
[2022-05-25 07:38] LABS: BUN Creatinine Ratio 30.2 (10-20); Calcium 7.2 mg/dl (8.5-10.1); Creatinine Clr Calc Pharmacy 104.2 ml/min; Est GFR (African American) 115.7 ml/min; Est GFR (Non-African American) 99.8 ml/min; Magnesium 1.7 mg/dl (1.7-2.4)
[2022-05-25] MEDS: lisinopril 5 MG TAB PO SCH (08:47)
[2022-05-25] MEDS: PANTOprazole 40 MG TAB PO SCH ×2 (08:47→20:32)
[2022-05-25] MEDS: SODIUM CHLORIDE 1 GM TABLET PO SCH (08:48)
[2022-05-25] MEDS: CIPROFLOXACIN 500 MG TAB PO SCH ×2 (08:48→20:32)
[2022-05-25] MEDS: ADVANCED PROBIOTIC 1250 MG CAPSULE PO SCH (08:48)
[2022-05-25] MEDS: UMECLIDINIUM/VILANTEROL 62.5/25MCG 7 PUFFS/INHALER INH SCH (08:48)
[2022-05-25] MEDS: LACTULOSE SYRUP 20 GM/30 ML UDC PO SCH (08:48)
[2022-05-25] MEDS: rifAXIMin 550 MG TABLET PO SCH ×2 (08:48→20:33)
[2022-05-25] MEDS ORDERED: ALBUT/IPRATROP 3MG/0.5MG NEB 3 ML VIAL NEB STA (11:48)
[2022-05-25] MEDS ORDERED: FUROSEMIDE INJ 20 MG/2 ML VIAL IV ONE ×2 (12:02→20:30)
--- NOTE | 2022-05-25 12:37 | XRay Report ---
XR chest 1V portable HISTORY: b/l wheezing, eval pulm edema COMPARISON: Chest 05/08/2022. FINDINGS: The heart remains mildly enlarged. There is progressive interstitial/vascular thickening an d trace bilateral pleural effusions. No pneumothorax. No new focal lung consolidations. Old, healed b ilateral rib fractures. IMPRESSION: 1. Cardiomegaly with interval progression of the mild interstitial pulmonary edema. 2. Suspect trace bilateral pleural effusions. ACT 112: Negative or not required by law. Electronically signed by: Celestino Oconnor M.D. 05/25/2022 12:36 PM
--- NOTE | 2022-05-25 20:29 | Hospitalist Progress Note ---
Date of Service May 25, 2022 Assessment & Plan (1) COVID-19: Plan: Stable from COVID standpoint. No symptoms at this time. Never met criteria for use of IV dexamethasone therapy or Remdesivir. Vitals and O2 sats stable. Cont airborne isolation per infection control guidelines. Date of first positive test - 05/13/22 (about 12 days ago). Suspect we can d/c airborne precautions at this time. (2) Gram-negative bacteremia: Plan: 2nd to e.coli. Source? GI given his cirrhosis? (bacterial translocation via the gut?). Could have had smoldering SBP (does have ascites) as source. Stable, resolved. Repeat cultures negative. Cont PO cipro 500mg BID. Plan 14 days of Rx from date of first negative culture (05/14/22). Thus, today is day #12 of 14. (3) Intraparenchymal hemorrhage of brain: Plan: Large left intraparenchymal hemorrhage - admitted to Neurosurgical [place] at [facility] [place] 04[place]. 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 He was treated with FFP, cryoprecipitate, Fibrinogen and Vitamin K. He had a catheter angiogram performed on 04/30/22. Imaging discussed with Neurosurgery at [facility] - Dr. Sanchez - at time of this hospital admission. Thought that admission CT head imaging is not markedly different from prior. Continue Keppra for seizure prophylaxis. Neurological exam and Mental status stable. Neurosurgery at [facility] was to order MRI brain and MRA head on 05/29. I simply obtained these now for simplicity sake. Imaging noted. Stable. Films "pushed" to [facility] via PACs. Films also placed on CD-ROM for patient as back-up. (4) Alcoholic cirrhosis of liver: Plan: Mild decompensation. Resume lasix 20mg IV BID today. Cont lactulose 15gm daily - Aim 2-3 BMs/day. Cont rifaximin BID. (5) Elevated troponin: Plan: Likely myocardial demand ischemia in setting of #1, #2 above. (6) Hypertension: Plan: Cont DEEDEE (7) GERD (gastroesophageal reflux disease): Plan: Continue Protonix (8) COPD (chronic obstructive pulmonary disease): Plan: Continue Breo and Albuterol PRN No flare (9) Global aphasia: Plan: 2nd to #3 cont speech services cont pureed diet (10) Hyponatremia: Plan: urine Na <10 c/w solute deficiency in the setting of chronic diuretics, salt restriction, etc started salt tab with NaCL 1gm daily Na iagain 133 today cont NACL supplementation repeat BMP am (11) Coagulopathy: Plan: INR 1.5 -- likely from cirrhosis itself despite vit K x 2 this week no improvement thus likely no vit K deficiency and defer on additional doses (12) Deep vein thrombosis (DVT) of right upper extremity: Plan: PICC-associated DVT in the setting of right arm weakness from intracerebral hemorrhage last month as well as COVID illness. PICC discontinued. Unfortunately he is NOT an anticoagulation candidate given #3. Risk of DVT propagation and development of PEs is low with upper extremity DVT. [id number] there is still a chance. This was communicated to his daughter and she voiced understanding. (13) Diarrhea: Plan: diarrhea improved c diff neg lactinex ordered while on cipro (14) Abnormal CXR: Plan: could be pulm edema vs pneumonitis from recent COVID vs aspiration latter 2 etiologies, if present - no Rx needed if pulm edema - resume lasix 20mg IV BID first dose now daily weights Plan DNR/DNI accepted to [facility] no d/c today due to respiratory issues daughter updated extensively by phone once again today Admission and Anticipated Discharge Date Admission Date: May 13, 2022 Subjective pt unable to provide any history or ROS neurocognitive status is unchanged from prior visits staff report excellent appetite and no other issues Review of Systems Review of Systems: Other (2nd to global aphasia) Physical Exam Physical Exam: gen - chronically unwell appearing but NAD, global aphasia as previous; coughing at times & trying to clear his throat mouth - poor dentition neck - no JVD heart - RRR, s1 s2, no murmur lungs - very course BS b/l with scattered rales b/l abd - soft NT; mildly distended; BS+ ext - 2+ b/l pulses feet; no edema neuro - strength right arm 3-4/5, right leg <3/5; global aphasia unchanged; right facial droop - mild musculo - generalized edema of right arm improved Results & Data Results & Data ([place]) Vital Signs (Past 12 Hours) Vital Signs Temp Pulse Resp BP Pulse Ox O2 Del Method 05/25/22 17:56 36.6 C 62 18 112/59 L 95 Room Air 05/25/22 12:12 61 18 94 Room Air 05/25/22 08:44 36.5 C 64 20 131/65 94 Room Air Laboratory Results Laboratory Results - last 24 hr 05/25/22 06:09 Sodium 133 L Potassium 4.0 Chloride 105 Carbon Dioxide 25 Anion Gap 3 BUN 19 Creatinine 0.63 Est Cr Clr Drug Dosing 104.2 Est GFR ( Amer) 115.7 Est GFR (Non-Af Amer) 99.8 BUN/Creatinine Ratio 30.2 H Glucose 95 Calcium 7.2 L Magnesium 1.7 Diagnostic Findings Chest X-Ray 05/25/22 10:57 XR chest 1V portable HISTORY: b/l wheezing, eval pulm edema COMPARISON: Chest 05/08/2022. FINDINGS: The heart remains mildly enlarged. There is progressive interstitial/vascular thickening and trace bilateral pleural effusions. No pneumothorax. No new focal lung consolidations. Old, healed bilateral rib fr actures. IMPRESSION: 1. Cardiomegaly with interval progression of the mild interstitial pulmonary edema. 2. Suspect trace bilateral pleural effusions. ACT 112: Negative or not required by law. Electronically signed by: Celestino Oconnor M.D. 05/25/2022 12:36 PM PG Care Time/CCT Total # of Minutes Spent Total Time Spent with Patient: Total time spent is greater than 50% in coordination of care (as documented) at patient's floor/unit and/or counseling patient: Coding Level of Care Code 25562 Subseq Hosp Care Lvl 3 Diagnoses COVID-19 U07.1 Gram-negative bacteremia R78.81 Intraparenchymal hemorrhage of brain I61.9 Alcoholic cirrhosis of liver K70.30 Elevated troponin R77.8 Hypertension I10 GERD (gastroesophageal reflux disease) K21.9 COPD (chronic obstructive pulmonary disease) J44.9 COPD type: unspecified COPD Global aphasia R47.01 Hyponatremia E87.1 Coagulopathy D68.9 Deep vein thrombosis (DVT) of right upper extremity I82.621 Diarrhea R19.7 Abnormal CXR R93.89 (1) COPD (chronic obstructive pulmonary disease) COPD type: unspecified COPD Qualified Code(s): J44.9 - Chronic obstructive pulmonary disease, unspecified
[2022-05-25] MEDS: POTASSIUM CHLORIDE CRTAB 20 MEQ TABCR PO SCH (20:40)
[2022-05-26] MEDS: guaiFENesin SUGAR FREE 200 MG/10 ML UDC PO SCH ×6 (01:07→21:59)
[2022-05-26] MEDS: levETIRAcetam 500 MG TAB PO SCH ×2 (04:43→17:57)
[2022-05-26 05:54] LABS: Hematocrit (blood only) 29.8 % (40.1-51.0); Hemoglobin 10.3 g/dl (14.0-18.0); Mean Platelet Volume 10.5 fL (9.4-12.4); Platelet Count 94 K/uL (130-400); White Blood Count 4.23 K/ul (4.8-10.8)
[2022-05-26 06:05] LABS: Mean Corpuscular Hemoglobin 35.9 pg (25.0-34.0); Mean Corpuscular Hgb Conc 34.6 g/dL (32.0-36.0); Mean Corpuscular Volume 103.8 fL (80.0-100.0); RDW Coefficient of Variation 14.7 % (11.5-14.5); RDW Standard Deviation 56.4 fL (36.4-46.3); Red Blood Count 2.87 M/uL (4.63-6.08)
[2022-05-26 06:16] LABS: BUN Creatinine Ratio 25.9 (10-20); Calcium 7.2 mg/dl (8.5-10.1); Est GFR (African American) 104.4 ml/min; Magnesium 1.5 mg/dl (1.7-2.4); Potassium 4.1 mmol/L (3.5-5.1)
[2022-05-26] MEDS: UMECLIDINIUM/VILANTEROL 62.5/25MCG 7 PUFFS/INHALER INH SCH (08:52)
[2022-05-26] MEDS: lisinopril 5 MG TAB PO SCH (08:53)
[2022-05-26] MEDS: CIPROFLOXACIN 500 MG TAB PO SCH ×2 (08:53→22:00)
[2022-05-26] MEDS: rifAXIMin 550 MG TABLET PO SCH ×2 (08:53→22:02)
[2022-05-26] MEDS: POTASSIUM CHLORIDE CRTAB 20 MEQ TABCR PO SCH ×2 (08:54→22:01)
[2022-05-26] MEDS: PANTOprazole 40 MG TAB PO SCH ×2 (08:54→22:00)
[2022-05-26] MEDS: ADVANCED PROBIOTIC 1250 MG CAPSULE PO SCH (08:54)
[2022-05-26] MEDS: SODIUM CHLORIDE 1 GM TABLET PO SCH (08:54)
[2022-05-26] MEDS: LACTULOSE SYRUP 20 GM/30 ML UDC PO SCH (08:54)
[2022-05-26] MEDS ORDERED: FUROSEMIDE INJ 20 MG/2 ML VIAL IV ONE (09:07)
[2022-05-26] MEDS: MAGNESIUM SULFATE / D5W 1 GM/100 ML BAG IV SCH ×2 (10:31→12:43)
--- NOTE | 2022-05-26 13:35 | Discharge Summary ---
Date of Service date of admission - May 13, 2022 date of discharge - May 27, 2022 Admission HPI Per Admitting Provider 71 yo male with medical history of: COPD, Pulmonary HTN, Grade I esophageal varices, EtOH induced cirrhosis with history of encephalopathy, cirrhosis, and prior portal venous thrombosis, CVA, HLD, Intrapanchymal hemorrhage. Patient comes in today from [facility] for concerns of hypoxia and decrease mentation. The patient was found to have COVID on testing in the ER, as well as elevated HScTNI, increase in PCT. He was given dose of Vancomycin and Zosyn in the EMD, as well as 10mg Decadron for reported COVID related hypoxia. Patient presented to [facility] in 04/26/22 after he was found wandering around town and incoherent, subsequently found on imaging to have above intraparenchymal bleed measuring 4.1 x 4.5- he was transferred to [facility] where he had an evaluation at that time by neurosurgery, neurology, and hepatology. He had a 3mm shift at that time. He had an acute change on 05/03 underwent repeat imaging with no stable hemorrhage and mild increase in edema and midline shift, he underwent cerebral angiography with no findings to intervene on. He had normal EEG and remains on Keppra to continue until follow up. He was discharged to [facility] on 05/06/22. Imaging today reveals increase in surrounding edema and midline shift of 6mm, with likely impending uncal herniation with evidence of effacement of his lateral ventricle on the left. The patient case was discussed by the EMD physician Dr. Heath with neurosurgeon Dr. Flores at [facility]. Secondary to patient functional state it was reported that he would be poor surgical candidate for any return of function or benefit from surgical care. The patient is a DNR/DNI. He is accompanied by his daughter at the bedside. Overall discussion was had and palliative and supporting him with steroids for his COVID, antibiotics, and hydration at this time would be appropriate. IDDSI level 5 minced and moist diet with nectar thick fluids. Principal Diagnosis 1. COVID-19 infection 2. E.coli bacteremia - suspected GI source 3. Recent intraparenchymal brain hemorrhage with resulting right-sided hemiparesis & global aphasia 4. Cirrhosis 5. RUE DVT 6. Hyponatremia Discharge Exam gen - chronically unwell appearing but NAD, global aphasia as previous (expressive > receptive) mouth - poor dentition face - mild right facial droop neck - no JVD heart - RRR, s1 s2, no murmur lungs - decreased BS bases, CTA apices, occasional scattered wheeze abd - soft NT; mildly distended; BS+ ext - 2+ b/l pulses feet; no edema of feet/ankles neuro - strength right arm 3-4/5, right leg <3/5; global aphasia unchanged; right facial droop - mild musculo - generalized edema of right arm improved from prior exams Discharge Data Allergies Allergy/AdvReac Type Severity Reaction Status Date / Time terazosin Allergy Severe PRIAPISM- Verified 05/13/22 18:43 ON [facility] spironolactone Allergy Unknown ON Verified 05/13/22 18:43 [facility]. trazodone AdvReac Unknown Unknown Verified 05/13/22 18:43 Consultations 05/24/22 10:35 Burn CD for patient Routine Procedures Performed Echocardiogram - * EF 60-65% * mild mitral regurgitation * no regional wall motion abnormalities Ordered Studies Chest X-Ray 05/13/22 16:11 XR chest 1V portable CLINICAL HISTORY: SEPSIS. Evaluate cardiopulmonary status COMPARISON STUDY: 04/26/2022 TECHNIQUE: 1 view of the chest FINDINGS: Single frontal view of the chest demonstrates the heart to again be enlarged. There is again asymmetric elevation of the right hemidiaphragm. The lungs are clear of alveolar opacities. There is no evidence for pleural effusion. There is no evidence for vascular congestion. There is no acute osseous pathology. IMPRESSION: 1. No acute cardiopulmonary disease. ACT 112: Negative or not required by law. Electronically signed by: Morris Bustillo M.D. 05/13/2022 4:[address] 05/13/22 16:22 CT OF THE HEAD WITHOUT CONTRAST CLINICAL HISTORY: prior intraparenchymal hemorrhage COMPARISON STUDY: Head CT April 26, 2022. CT DOSE: 994.86 mGycm TECHNIQUE: Helical axial images of the head were obtained without IV contrast. Automated exposure control was utilized for the study. A dose lowering technique was utilized adhering to the principles of ALARA. FINDINGS: A left temporal lobe hematoma is again noted. The attenuation has decreased since prior CT however the size of the hematoma has increased, measuring approximately 5.6 x 5.2 cm. Extensive associated vasogenic edema has progressed with associated increase in significant mass effect, including sulcal effacement, mild compression of the left lateral ventricle and 6 mm of rightward midline shift. Edema extends into the left thalamus, left internal capsule and basal ganglia. Although not present at this time, there is a risk for uncal herniation. No calvarial fracture is identified. As before, left maxillary sinus is diminutive and opacified. IMPRESSION: Increase in size with decrease in attenuation of the left temporal lobe intraparenchymal hematoma measuring approximately 5.6 x 5.2 cm. Significant increase in associated vasogenic edema and mass effect, including sulcal effacement, marked compression of the left lateral ventricle and 6 mm of rightward midline shift. Although not present at this time, risk for uncal herniation. Edema extends into the left thalamus, internal capsule and basal ganglia. Neurosurgical consultation is recommended. Findings discussed with Dr. Heath at time of dictation. ACT 112: Negative or not required by law. Electronically signed by: Karthikeyan Rashid M.D. 05/13/2022 6:14 PM Abdomen/Pelvis CT 05/14/22 16:36 CT OF THE ABDOMEN AND PELVIS WITH CONTRAST CLINICAL HISTORY: GN bacteremia, fever, abdominal pain. COMPARISON STUDY: CT of the abdomen and pelvis December 28, 2019. Abdominal ultrasound October 31, 2020. TECHNIQUE: Following IV administration of 94 mL of Optiray, axial images of the abdomen and pelvis were obtained from the lung bases to the proximal femurs. Images were reviewed in the axial, sagittal, and coronal planes. IV contrast was administered without complication. Automated exposure control was utilized for the study. A dose lowering technique was utilized adhering to the principles of ALARA. CT DOSE: 422.32 mGy.cm FINDINGS: No significant abnormality is identified within the lower lungs. No pneumatosis, free air or portal venous gas is present. Apparent wall thickening of the proximal stomach is similar to prior exams. Sclerosis is noted. No hepatic lesions are identified on this portal venous phase study. As before, the main portal vein is diminutive. This is unchanged. Large collaterals are noted. Splenomegaly is noted. Small amount of ascites within the pelvis is present. There is no evidence for a bowel obstruction. Caliber and wall thickness of small and large bowel are normal. The appendix is normal. Adrenal glands, kidneys and pancreas are unremarkable. There is no biliary or pancreatic ductal dilatation. Gallbladder is partially collapsed. Penile prosthesis is incidentally noted. Avascular necrosis of both femoral heads is present. No acute fracture or suspicious lesion within the visualized skeletal structures. No fluid collection to suggest an abscess is identified. Extensive aortoiliac atherosclerotic plaque is present. IMPRESSION: 1. Cirrhosis with manifestations of portal hypertension, including extensive varices formation, splenomegaly and small amount of ascites. 2. No bowel obstruction. No bowel wall thickening. Normal appendix. 3. No definite acute process. ACT 112: Negative or not required by law. Electronically signed by: Karthikeyan Rashid M.D. 05/15/2022 8:04 AM Chest X-Ray 05/16/22 15:31 XR chest 1V portable CLINICAL HISTORY: fever low oxygen in covid but also cva, ?asp pnx. COMPARISON STUDY: 05/13/2022 TECHNIQUE: 1 view of the chest FINDINGS: Single frontal view of the chest demonstrates the heart to again be enlarged. Compared to previous study, there is mild central vascular congestion. There is no evidence for peripheral interstitial or alveolar edema. There is no evidence for pleural effusion. No confluent alveolar opacities are identified. There is no acute osseous pathology. IMPRESSION: 1. Interval development of mild central vascular congestion. ACT 112: Negative or not required by law. Electronically signed by: Morris Bustillo M.D. 05/16/2022 4:03 PM Venous Doppler Study 05/23/22 08:09 US venous doppler UE RT HISTORY: 71 years-old Male PICC line in place; edema; eval DVT acute pain and swelling of the right upper extremity with a PICC COMPARISON: None TECHNIQUE: Multiple real-time sonographic images of the right upper extremity deep venous structures were obtained assessing grayscale appearance, color and spectral flow FINDINGS: A right-sided PICC is present. There is occlusive and partially occlusive thrombus of the right upper extremity which involves the subclavian, axillary, and brachial veins. The basilic, radial and ulnar veins appear patent. The cephalic vein is not diagnostically visualized. Subcutaneous edema. IMPRESSION: Likely acute right upper extremity DVT as above. ACT 112: Negative or not required by law. The above report was generated using voice recognition software. It may contain grammatical, syntax or spelling errors. Electronically signed by: Ronald Deyr M.D. 05/23/2022 9:34 AM Brain MRI 05/23/22 15:35 MRI OF THE BRAIN WITHOUT AND WITH IV CONTRAST CLINICAL HISTORY: Follow up intracranial hemorrhage. COMPARISON STUDY: Head CT May 13, 2022. TECHNIQUE: Utilizing a 1.5 Renetta magnet and dedicated coil, multiplanar, multiecho imaging of the brain was performed pre and postcontrast administration. IV administration of 6.5 mL of Gadavist contrast was uneventful. FINDINGS: There are no foci of restricted diffusion to suggest acute infarct. Note is again made of a large left temporal lobe intraparenchymal hematoma. This is similar in size to CT of May 13, 2022 when allowing for differences in technique. This measures 6 x 5 cm. This is T1 and T2 hyperintense with layering T2 hypointense material. This favors a late subacute hematoma given the signal characteristics. Extensive associated vasogenic edema with mass effect is similar to prior CT of May 13, 2022. Marked compression of the left lateral ventricle and 6 mm of rightward midline shift is unchanged. This edema extends into the left basal ganglia as shown on CT. No new sites of hemorrhage are present. This contains a T2 hypointense rim suggestive of hemosiderin. No definite lesion enhancement is noted. Calvarial signal is within normal limits. Air-fluid level within the right maxillary sinus is noted. Left maxillary sinus is diminutive with mucosal thickening. This is chronic. There is moderate ethmoid and right frontal sinus mucosal thickening. IMPRESSION: 1. Large late subacute intraparenchymal hematoma within the left temporal lobe, measuring 6 x 5 cm. This is similar in size to head CT of May 13, 2022. Stable significant associated mass effect, including compression of the left lateral ventricle and 6 mm of rightward midline shift. No definite underlying lesion however imaging follow-up to ensure resolution is recommended to exclude this possibility. 2. No evidence for acute infarct. 3. Air-fluid level within the right maxillary sinus suggestive of acute sinusitis. Chronic left maxillary sinusitis. ACT 112: Negative or not required by law. Electronically signed by: Karthikeyan Rashid M.D. 05/24/2022 9:14 AM Head MRA 05/23/22 15:35 MR ANGIOGRAM OF THE BRAIN CLINICAL HISTORY: Intracranial hemorrhage. COMPARISON STUDY: CT of the brain dated 05/13/2022. MRI of the brain dated 05/23/2022.. TECHNIQUE: 3-D [id number] MR angiography of the intracranial circulation is performed. 3-D tumble views are created and assessed. IV contrast was not administered for this examination. The examination is degraded by motion artifact. FINDINGS: The internal carotid arteries are widely patent bilaterally, as are the anterior and middle cerebral arteries. There is origin of the left posterior cerebral artery. A posterior communicating artery is noted on the right. The vertebrobasilar system and posterior cerebral arteries are widely patent. The vertebral arteries are codominant. There is no aneurysm, high-grade stenosis, or focal vessel cutoff seen throughout the intracranial circulation. A large hemorrhage is again seen centered in the left temporal lobe. IMPRESSION: Unremarkable MR angiogram of the brain. ACT 112: Negative or not required by law. Electronically signed by: Anuj Dominguez M.D. 05/24/2022 7:27 AM Chest X-Ray 05/25/22 10:57 XR chest 1V portable HISTORY: b/l wheezing, eval pulm edema COMPARISON: Chest 05/08/2022. FINDINGS: The heart remains mildly enlarged. There is progressive interstitial/vascular thickening and trace bilateral pleural effusions. No pneumothorax. No new focal lung consolidations. Old, healed bilateral rib fractures. IMPRESSION: 1. Cardiomegaly with interval progression of the mild interstitial pulmonary edema. 2. Suspect trace bilateral pleural effusions. ACT 112: Negative or not required by law. Electronically signed by: Celestino Oconnor M.D. 05/25/2022 12:36 PM Hospital Course (1) COVID-19: Patient presented with high fever either 2nd to COVID-19 infection or his e.coli bacteremia. His fevers resolved on hospital day #1. He remained stable from a COVID standpoint during his entire stay. He did not have any obvious symptoms other than fever from COVID. Never met criteria for use of IV dexamethasone therapy or Remdesivir. Vitals and O2 sats were stable throughout the entire stay. He remained in airborne isolation his entire hospital stay. Date of first positive test - 05/13/22. (2) Gram-negative bacteremia: 2nd to e.coli. Suspect a GI source for his bacteremia given his cirrhosis and ascites. He could have had smoldering SBP (did have ascites on imaging) as the source but he did not undergo paracentesis to confirm such. Urine culture was negative. Chest imaging did not show any obvious pneumonia. Bacteremia resolved with IV antibiotic therapy. Repeat blood cultures remained negative during the stay. Received in total 14 days of IV rocephin which was then converted to PO cipro 500mg BID to finish the course. (3) Intraparenchymal hemorrhage of brain: Large left intraparenchymal hemorrhage - admitted to Neurosurgical service at [facility] on 04/26/22. Hemorrhage thought to be secondary to ESLD- induced coagulopathy. He was treated with FFP, cryoprecipitate, Fibrinogen and Vitamin K. He had a catheter angiogram performed on 04/30/22. This admission's imaging was discussed with Neurosurgery at [facility] - Dr. Sanchez - on 05/13/22. It was felt that this admission's CT head imaging was not markedly different from prior imaging earlier in April. Continue Keppra for seizure prophylaxis. Neurosurgery at [facility] was to order MRI brain and MRA head on 05/29/22 in [place]. I simply obtained these late in this stay for simplicity sake. MRI brain/MRA head Films "pushed" to [facility] via PAC system. Films also placed on CD-ROM for patient as back-up. Patient's daughter is aware of the MRI/MRA results. She will be accompanying Mr Fortune to his Neurosurgery appointment on 06/03/22 in [place]. Of note - the patient has a significant global aphasia and right-sided hemiparesis as a result of his bleeding event. He made minimal improvement in his overall functional status during this long hospitalization. He is transferring to [facility] post-discharge for intensive rehab. (4) Alcoholic cirrhosis of liver: Mild decompensation later in his stay. Received IV lasix at that time, then was transitioned back to his usual PO dose of 40mg BID. For prevention of hepatic encephalopathy - Cont lactulose 20gm daily - Aim 2-3 BMs/day. Cont rifaximin BID. (5) Elevated troponin: Likely myocardial demand ischemia in setting of #1, #2 above. Peak HS troponin was 782. (6) Hypertension: Cont DEEDEE (7) GERD (gastroesophageal reflux disease): Continue Protonix twice daily (8) COPD (chronic obstructive pulmonary disease): Continue Breo and Albuterol PRN No flare during the hospitalization (9) Global aphasia: 2nd to #3 both expressive component & receptive component are both severe/dense towards the end of the stay he began to wave good bye and perform some very basic commands albeit very inconsistently cont speech services cont pureed diet (10) Hyponatremia: urine Na <10 c/w solute deficiency in the setting of chronic diuretics, salt restriction, etc started salt tab with NaCL 1gm daily Na level = 134 at time of discharge cont NACL supplementation for another 2 days post-discharge then stop recommend repeat BMP within 2-3 days of discharge for stability (11) Coagulopathy: INR 1.5 -- 2nd to his cirrhosis despite vit K x 2 there was no improvement in his INR thus likely no vit K deficiency present at this time INR should be checked periodically for stability (12) Deep vein thrombosis (DVT) of right upper extremity: PICC-associated DVT in the setting of right arm weakness from intracerebral hemorrhage as well as his COVID illness. PICC line was discontinued. Unfortunately he is NOT an anticoagulation candidate given #3. Risk of DVT propagation and development of PEs is low with upper extremity DVT. [id number] there is still a chance. This was communicated to his daughter and she voiced understanding. Continue passive/active ROM exercises and elevating the arm when in bed. (13) Diarrhea: diarrhea improved prior to discharge. c diff negative on 05/24/22. likely due to combination of antibiotics & lactulose. lactulose should be titrated for 2-3 BMs/day if possible. Plan patient remains DNR/DNI. accepted back to [facility] and will transfer there for intensive rehab. patient's prognosis is poor in light of his fragile baseline health and now the recent intracerebral hemorrhage. however, his daughter & family want to give him the best possible chance to recover and thus [facility] is being pursued. Total Time Total Time Spent Total Time Spent (In Minutes): 60 Discharge Plan Discharge Items Patient Disposition: Transfer Inpatient Rehab Fac Reason For Visit: COVID, INTRAPARAYNCHMAL HEMMORHAGE Discharge Diagnosis: 1. COVID-19 infection - resolved 2. E.coli bacteremia - resolved 3. Intracerebral hemorrhage (April 2022) 4. Global aphasia - slowly improving 5. Cirrhosis of the liver 6. prior h/o alcoholism 7. COPD 8. Right arm DVT in the setting of right arm PICC line -- PICC line removed 9. Chronic coagulopathy due to cirrhosis - discharge INR 1.5 10. hyponatremia - discharge level 133 Activity: Resume your previous activity Non-emergency contact: Primary Care Provider, Surgeon and Automotive Sales Manager Call non-emergency contact if: you have any medication questions, your symptoms worsen and you have a fever Follow-up/Referrals: Craig Worthy, [Primary Care Provider] - (see Dr Worthy after discharge from [facility]) Noel Guerra MD [Outside Practitioners] - 06/03/22 (see Dr Guerra as scheduled on this date) Diet: Regular Fluids: 1800ml (7 cups) Diet Texture: Pureed (blended smooth) Addtl Attending Provider Instructions: Mr Fortune was hospitalized for COVID-19 infection and E.coli bacteremia. Recommendations - 1. Patient has a follow-up visit with Dr Guerra at [facility] in [place] on June 03. Patient had MRI brain/MRA head at [facility] and these films are on CD-ROM. Please be sure this CD-ROM goes with the patient to this appointment. 2. Repeat CBC, BMP, and Magnesium on 05/28/22, then future labs at discretion of the biomedical analytical scientist. 3. Patient needs 1 additional dose of cipro by mouth TONIGHT, 05/27/22, then DISCONTINUE. 4. Daily weights. 5. Patient has 2 additional doses of sodium chloride tablets - first dose tomorrow, 05/28/22. 6. NO CHEMICAL DVT prophylaxis - no heparin, lovenox, xarelto, etc. 7. NO NSAID use - no aspirin, motrin, ibuprofen, alleve, meloxicam, naprosyn, etc. 8. C diff testing on 05/24/22 was negative at [facility]. 9. Patient has weakness of right arm/right leg from his brain bleed. He also has DVT of the right arm. Caution with use of the right arm. Elevate right arm on pillows as needed to help with edema. Pending Studies at Discharge: No Stand-Alone Forms: My [facility] Skilled Items Patient informed of condition?: No DNR: Yes Discharge Level of Care: Acute rehab Communicable Disease: Yes Discharge Prognosis: Other Lines: None Urinary Catheter: No Medications and DC Order Prescriptions: New albuterol sulfate 2.5 mg /3 mL (0.083 %) Solution For Nebulization 2.5 mg NEB Q6R PRN (Reason: cough/wheeze/dyspnea) Qty: 1 0RF potassium chloride 20 mEq Tablet,Er Particles/Crystals 20 meq PO BID Qty: 60 0RF pantoprazole [Protonix] 40 mg tablet,delayed release (DR/EC) 40 mg PO BID Qty: 60 2RF furosemide [Lasix] 40 mg tablet 40 mg PO BID Qty: 60 2RF Rx Instructions: give every AM at 8am, and every afternoon at 5pm. ciprofloxacin HCl [Cipro] 500 mg tablet 500 mg PO ONCE Qty: 1 0RF Rx Instructions: evening of 05/27/22 then discontinue. Continued ferrous sulfate 325 mg (65 mg iron) tablet 325 mg PO BID Qty: 180 1RF Anoro Ellipta 62.5-25 mcg/actuation blister with device 1 inh INHALATION QAM Qty: 60 11RF Rx Instructions: RINSE MOUTH THOROUGHLY AND SPIT AFTER EACH USE multivitamin [Daily-Verena] Tablet 1 tab PO QAM Qty: 30 2RF cholecalciferol (vitamin D3) 25 mcg (1,000 unit) Capsule 2,000 unit PO QAM Qty: 60 2RF acetaminophen 325 mg Tablet 650 mg PO Q4H MDD 3 GM APAP/24 HOURS PRN (Reason: Fever Or Pain) Rx Instructions: NEEDED FOR MILD PAIN OR FEVER GREATER THAN 100 F levetiracetam [Keppra] 500 mg Tablet 500 mg PO Q12H melatonin 3 mg Tablet 6 mg PO HS PRN (Reason: Sleep) lisinopril 5 mg Tablet 5 mg PO DAILY rifaximin 550 mg Tablet 550 mg PO BID Rx Instructions: STOP 06/08/22 Ocular Lubricant 1 drp OPB QID PRN (Reason: Dry Eyes) Changed lactulose [Generlac] 10 gram/15 mL solution 20 g PO QAM Qty: 473 0RF Discontinued furosemide [Lasix] 40 mg tablet 40 mg PO BID Rx Instructions: TAKE AT 0800 & 1600 pantoprazole 40 mg tablet,delayed release (DR/EC) 40 mg PO BID Rx Instructions: TAKE PRIOR TO MEALS. sennosides [senna] 8.6 mg Tablet 8.6 mg PO DAILY docusate sodium 100 mg Capsule 100 mg PO BID Discharge Orders: Discharge Order (Routine); Ordered 05/27/22 Ordered By: Peyman Rodriguez Admission Data Admit Date/Time: 05/13/22 21:37 Attending Provider: Peyman Rodriguez Admit Provider: Tamanna Nguyen Primary Care Provider: Craig Worthy Other Providers: [facility] ; [facility] ; Tamanna Nguyen Coding Level of Care Code D/C DAY MANAGEMENT >30 MINS Diagnoses COVID-19 U07.1 Gram-negative bacteremia R78.81 Intraparenchymal hemorrhage of brain I61.9 Alcoholic cirrhosis of liver K70.30 Elevated troponin R77.8 Hypertension I10 GERD (gastroesophageal reflux disease) K21.9 COPD (chronic obstructive pulmonary disease) J44.9 COPD type: unspecified COPD Global aphasia R47.01 Hyponatremia E87.1 Coagulopathy D68.9 Deep vein thrombosis (DVT) of right upper extremity I82.621 Diarrhea R19.7
--- NOTE | 2022-05-26 20:52 | Hospitalist Progress Note ---
Date of Service May 26, 2022 Assessment & Plan (1) COVID-19: Plan: Stable from COVID standpoint. No symptoms at this time. Never met criteria for use of IV dexamethasone therapy or Remdesivir. Vitals and O2 sats stable. Cont airborne isolation per infection control guidelines but meets criteria to d/c airborne as we are 13+ days out from his + test. Date of first positive test - 05/13/22. (2) Gram-negative bacteremia: Plan: 2nd to e.coli. Source? GI given his cirrhosis? (bacterial translocation via the gut?). Could have had smoldering SBP (does have ascites) as source. Stable, resolved. Repeat cultures negative. Cont PO cipro 500mg BID. Plan 14 days of Rx from date of first negative culture (05/14/22). Thus, today is day #13 of 14. (3) Intraparenchymal hemorrhage of brain: Plan: Large left intraparenchymal hemorrhage - admitted to [place] [facility] [place]. 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 He was treated with FFP, cryoprecipitate, Fibrinogen and Vitamin K. He had a catheter angiogram performed on 04/30/22. Imaging discussed with Neurosurgery at [facility] [place] - at time of this hospital admission. Thought that admission CT head imaging is not markedly different from prior. Continue Keppra for seizure prophylaxis. Neurological exam and Mental status stable. Neurosurgery at [facility] [place] brain and MRA head on 05/29. I simply obtained these now for simplicity sake. Imaging noted. Stable. Films "pushed" to [facility] via PACs. Films also placed on CD-ROM for patient as back-up. (4) Alcoholic cirrhosis of liver: Plan: Mild decompensation s/p 3 doses of IV lasix last 24 hours with improvement. Cont lactulose 15gm daily - Aim 2-3 BMs/day. Cont rifaximin BID. Resume lasix 40mg PO BID tomorrow am. BMP am (5) Elevated troponin: Plan: Likely myocardial demand ischemia in setting of #1, #2 above. (6) Hypertension: Plan: Cont DEEDEE (7) GERD (gastroesophageal reflux disease): Plan: Continue Protonix (8) COPD (chronic obstructive pulmonary disease): Plan: Continue Breo and Albuterol PRN No flare (9) Global aphasia: Plan: 2nd to #3 cont speech services cont pureed diet (10) Hyponatremia: Plan: urine Na <10 c/w solute deficiency in the setting of chronic diuretics, salt restriction, etc started salt tab with NaCL 1gm daily Na iagain 133 today cont NACL supplementation repeat BMP am (11) Coagulopathy: Plan: INR 1.5 -- likely from cirrhosis itself despite vit K x 2 this week no improvement thus likely no vit K deficiency and defer on additional doses (12) Deep vein thrombosis (DVT) of right upper extremity: Plan: PICC-associated DVT in the setting of right arm weakness from intracerebral hemorrhage last month as well as COVID illness. PICC discontinued. Unfortunately he is NOT an anticoagulation candidate given #3. Risk of DVT propagation and development of PEs is low with upper extremity DVT. [id number] there is still a chance. This was communicated to his daughter and she voiced understanding. (13) Diarrhea: Plan: diarrhea improved c diff neg lactinex ordered while on cipro Plan DNR/DNI accepted to [facility] no d/c today unfortunately due to lack of transportation daughter updated extensively by phone once again today Admission and Anticipated Discharge Date Admission Date: May 13, 2022 Subjective no issues overnight today he smiled upon entering the room trying to talk more than at any point this week trying to answer questions said noel on my way out still having hard time following commands, however he was incontinent of stool at time of my assessment eating well per staff no issues overnight Review of Systems Review of Systems: Other (global aphasia) Physical Exam Physical Exam: gen - chronically unwell appearing but NAD, global aphasia as previous - expressive component better mouth - poor dentition neck - no JVD heart - RRR, s1 s2, no murmur lungs - CTA b/l, modestly decreased BS bases abd - soft NT; mildly distended but improved; BS+ ext - 2+ b/l pulses feet; no edema neuro - strength right arm 3-4/5, right leg <3/5; global aphasia unchanged; rig ht facial droop - mild musculo - generalized edema of right arm improved Results & Data Results & Data ([facility]) Vital Signs (Past 12 Hours) Vital Signs Temp Pulse Pulse Resp BP Pulse Ox 05/26/22 13:33 36.4 C L 77 68 18 121/73 93 Laboratory Results Laboratory Results - last 24 hr 05/26/22 05/26/22 05:22 05:22 WBC 4.23 L RBC 2.87 L Hgb 10.3 L Hct 29.8 L MCV 103.8 H MCH 35.9 H MCHC 34.6 RDW Std Deviation 56.4 H RDW Coeff of Ramses 14.7 H Plt Count 94 L MPV 10.5 Sodium 133 L Potassium 4.1 Chloride 105 Carbon Dioxide 26 Anion Gap 2 L BUN 21 Creatinine 0.81 Est Cr Clr Drug Dosing 81.0 Est GFR ( Amer) 104.4 Est GFR (Non-Af Amer) 90.0 BUN/Creatinine Ratio 25.9 H Glucose 98 Calcium 7.2 L Magnesium 1.5 L PG Care Time/CCT Total # of Minutes Spent Total Time Spent with Patient: Total time spent is greater than 50% in coordination of care (as documented) at patient's floor/unit and/or counseling patient: Coding Level of Care Code 58197 Subseq Hosp Care Lvl 3 Diagnoses COVID-19 U07.1 Gram-negative bacteremia R78.81 Intraparenchymal hemorrhage of brain I61.9 Alcoholic cirrhosis of liver K70.30 Elevated troponin R77.8 Hypertension I10 GERD (gastroesophageal reflux disease) K21.9 COPD (chronic obstructive pulmonary disease) J44.9 COPD type: unspecified COPD Global aphasia R47.01 Hyponatremia E87.1 Coagulopathy D68.9 Deep vein thrombosis (DVT) of right upper extremity I82.621 Diarrhea R19.7 (1) COPD (chronic obstructive pulmonary disease) COPD type: unspecified COPD Qualified Code(s): J44.9 - Chronic obstructive pulmonary disease, unspecified
[2022-05-27] MEDS: guaiFENesin SUGAR FREE 200 MG/10 ML UDC PO SCH ×3 (01:18→09:09)
[2022-05-27] MEDS: levETIRAcetam 500 MG TAB PO SCH (04:35)
[2022-05-27 06:34] LABS: BUN Creatinine Ratio 27.7 (10-20); Calcium 7.6 mg/dl (8.5-10.1); Creatinine Clr Calc Pharmacy 82.8 ml/min; Est GFR (African American) 103.3 ml/min; Est GFR (Non-African American) 89.2 ml/min; Magnesium 1.9 mg/dl (1.7-2.4); Potassium 4.7 mmol/L (3.5-5.1)
[2022-05-27] MEDS ORDERED: FUROSEMIDE 40 MG TAB PO SCH (09:00)
[2022-05-27] MEDS: lisinopril 5 MG TAB PO SCH (09:07)
[2022-05-27] MEDS: ADVANCED PROBIOTIC 1250 MG CAPSULE PO SCH (09:07)
[2022-05-27] MEDS: POTASSIUM CHLORIDE CRTAB 20 MEQ TABCR PO SCH (09:07)
[2022-05-27] MEDS: rifAXIMin 550 MG TABLET PO SCH (09:07)
[2022-05-27] MEDS: CIPROFLOXACIN 500 MG TAB PO SCH (09:07)
[2022-05-27] MEDS: PANTOprazole 40 MG TAB PO SCH (09:08)
[2022-05-27] MEDS: SODIUM CHLORIDE 1 GM TABLET PO SCH (09:08)
[2022-05-27] MEDS: LACTULOSE SYRUP 20 GM/30 ML UDC PO SCH (09:09)
== END 2022-05-27 11:01 | DRG 177 ==
LOC: ED 15:56 → EDINP 21:37 → SUATTDRO 21:37 → 2S 23:44 → 3E 05-20 19:26
DX: D68.9 Coagulation defect, unspecified; R47.01 Aphasia; I10 Essential (primary) hypertension; Y71.2 Prosthetic and other implants, materials and accessory cardiovascular devices associated with adverse incidents; J96.01 Acute respiratory failure with hypoxia; E87.1 Hypo-osmolality and hyponatremia; R78.81 Bacteremia; Z66 Do not resuscitate; K21.9 Gastro-esophageal reflux disease without esophagitis; Z95.828 Presence of other vascular implants and grafts; K76.6 Portal hypertension; K72.10 Chronic hepatic failure without coma; Z28.311 Partially vaccinated for COVID-19; I82.621 Acute embolism and thrombosis of deep veins of right upper extremity; Z88.8 Allergy status to other drugs, medicaments and biological substances; J44.9 Chronic obstructive pulmonary disease, unspecified; I61.9 Nontraumatic intracerebral hemorrhage, unspecified; E86.0 Dehydration; T82.868A Thrombosis due to vascular prosthetic devices, implants and grafts, initial encounter; J69.0 Pneumonitis due to inhalation of food and vomit; I85.10 Secondary esophageal varices without bleeding; E83.51 Hypocalcemia; G93.6 Cerebral edema; U07.1 COVID-19; K70.30 Alcoholic cirrhosis of liver without ascites; F10.21 Alcohol dependence, in remission; I24.8 Other forms of acute ischemic heart disease; I27.29 Other secondary pulmonary hypertension; B96.20 Unspecified Escherichia coli [E. coli] as the cause of diseases classified elsewhere

== ENCOUNTER 2022-07-19 14:29 | Observation (INO) ==
[2022-07-19] MEDS ORDERED: THIAMINE HCL 200 MG in SODIUM CHLORIDE 0.9% 50 ML IV STA (14:46)
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
[2022-07-19 15:28] LABS: Basophils # (auto) 0.05 K/uL (0-0.2); Eosinophils # (auto) 0.13 K/uL (0-0.50); Eosinophils % (auto) 2.6 %; Hematocrit (blood only) 39.9 % (40.1-51.0); Hemoglobin 14.4 g/dl (14.0-18.0); Immature Granulocytes # (auto) 0.02 K/uL (0.00-0.02); Immature Granulocytes % (auto) 0.4 %; Lymphocytes # (auto) 0.82 K/uL (1.2-3.4); Lymphocytes % (auto) 16.2 %; Mean Corpuscular Hemoglobin 35.6 pg (25.0-34.0); Mean Corpuscular Hgb Conc 36.1 g/dL (32.0-36.0); Mean Corpuscular Volume 98.8 fL (80.0-100.0); Mean Platelet Volume 10.5 fL (9.4-12.4); Monocytes # (auto) 0.57 K/uL (0.24-0.82); Monocytes % (auto) 11.3 %; Neutrophils # (auto) 3.47 K/uL (1.4-6.5); Neutrophils % (auto) 68.5 %; Platelet Count 153 K/uL (130-400); RDW Coefficient of Variation 13.1 % (11.5-14.5); RDW Standard Deviation 47.6 fL (36.4-46.3); Red Blood Count 4.04 M/uL (4.63-6.08); White Blood Count 5.06 K/ul (4.8-10.8)
[2022-07-19 15:45] LABS: Appearance Urine Clear (Clear); Bacteria Urine Automated Negative (Negative); Bilirubin Urine Negative (Negative); Blood Urine Trace (Negative); Cast Urine Automated 0 /lpf (0-5); Color Urine Yellow; Epithelial Cell Urine Auto 0-5 /lpf (0-5); Glucose Urine UA Negative (Negative); Ketones Urine Negative (Negative); Leukocyte Esterase Urine Negative (Negative); Nitrite Urine Negative (Negative); Protein Urine Negative (Negative); RBC Urine Automated 0-4 /hpf (0-4); Specific Gravity Urine 1.011 (1.000-1.030); Urobilinogen Urine Negative (Negative)
--- NOTE | 2022-07-19 15:46 | XRay Report ---
XR chest 1V portable CLINICAL HISTORY: weakness TECHNIQUE: Single frontal radiograph of the chest was obtained. Comparison: Comparison is made to chest radiograph 07/07/[address] abdomen pelvis 07/08/2022 FINDINGS: No lines and tubes are seen. The cardiomediastinal silhouette is stable. Prominence and cephalization of the vasculature is seen. No evidence of pleural effusion or pneumothorax. Stable deformity of the right ribs. IMPRESSION: Mild pulmonary edema is seen. No airspace opacities are seen. ACT 112: Negative or not required by law. Electronically signed by: Padilla Arteaga M.D. 07/19/2022 3:45 PM
--- NOTE | 2022-07-19 16:04 | CT Scan Report ---
HEAD CT NONCONTRAST CT DOSE: 691.05 mGy.cm HISTORY: Altered mental status. TECHNIQUE: Multiaxial CT images of the head were performed without the use of intravenous contrast. A utomated exposure control was utilized for this study. A dose lowering technique was utilized adheri ng to the principles of ALARA. Comparison: Head CT 07/08/2022. Findings: Mild mucosal thickening within the right ethmoid air cells. Opacification of the hypoplasti c left axilla sinus. The mastoid air cells are clear. The calvarium and skull base are intact. There is no mass, acute hematoma, midline shift, acute infarct. White matter hypodensity is nonspecific but suggestive of microvascular ischemic change. The ventricles and sulci demonstrate mild age-related i nvolutional changes. No change in the linear area of hypodensity within the left temporoparietal loca tion consistent with a site of prior intraparenchymal hemorrhage. Impression: 1. No significant change compared the prior study. No acute hemorrhage or acute infarct identified. 2. No change in the linear area of hypodensity within the left temporoparietal region consistent with a site of prior hemorrhage. ACT 112: Negative or not required by law. Electronically signed by: Celestino Oconnor M.D. 07/19/2022 4:02 PM
[2022-07-19 16:10] LABS: Amphetamines+Metham, Urine Neg (Neg); Barbiturates, Urine Neg (Neg); Benzodiazepine, Urine Neg (Neg); Cocaine, Urine Neg (Neg); MDMA (Ecstacy), Urine Neg (Neg); Methadone, Urine Neg (Neg); Opiate, Urine Neg (Neg); Phencyclidine, Urine Neg (Neg)
[2022-07-19 17:15] LABS: INR 1.2 (0.9-1.1); Partial Thromboplastin Ratio 1.3; Prothrombin Time 12.8 Seconds (9.0-12.0)
[2022-07-19 17:27] LABS: Alanine Aminotransferase 17 U/L (7-52); Albumin Globulin Ratio 0.9 (0.9-2); Albumin Level 3.3 gm/dl (3.4-5.0); Alkaline Phosphatase 123 U/L (34-104); Anion Gap 8 (3-11); Aspartate Aminotransferase 31 U/L (13-39); Bilirubin,Total 3.1 mg/dl (0.2-1.0); Blood Urea Nitrogen 24 mg/dl (6-23); Carbon Dioxide 19 mmol/L (21-32); Chloride 108 mmol/L (98-107); Creatine Kinase 57 U/L (30-223); Est GFR (African American) 107.7 ml/min; Est GFR (Non-African American) 92.9 ml/min; Globulin 3.8 gm/dl (2.5-4.0); Glucose 104 mg/dl (70-99(Fasting)); Magnesium 2.1 mg/dl (1.7-2.4); Sodium 135 mmol/L (136-145); Total Protein 7.1 gm/dl (6.0-8.3)
[2022-07-19 17:33] LABS: Troponin I High Sensitivity 20.7 pg/ml (0-20)
[2022-07-19] MEDS ORDERED: LACTULOSE SYRUP 30 GM/45 ML UDP PO STA (18:01)
[2022-07-19] MEDS ORDERED: POLYETHYLENE (MIRALAX) 17 GM PACK PO PRN (18:34)
[2022-07-19] MEDS ORDERED: ACETAMINOPHEN 325 MG TAB PO PRN (18:38)
[2022-07-19] MEDS ORDERED: OCULAR LUBRICANT OPB PRN (18:38)
[2022-07-19] MEDS ORDERED: MELATONIN 3 MG TAB PO PRN (18:38)
[2022-07-19] MEDS ORDERED: ALBUTEROL HFA 8 GM INHALER INH PRN (18:38)
[2022-07-19] MEDS ORDERED: levETIRAcetam 500 MG TAB PO SCH (18:45)
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
[2022-07-19] MEDS ORDERED: LACTULOSE SYRUP 20 GM/30 ML UDC PO SCH (21:00)
[2022-07-19] MEDS ORDERED: FUROSEMIDE 40 MG TAB PO SCH (21:00)
[2022-07-19] MEDS: levETIRAcetam 500 MG TAB PO SCH (22:04)
[2022-07-19] MEDS: POTASSIUM CHLORIDE CRTAB 20 MEQ TABCR PO SCH (22:04)
[2022-07-19] MEDS: LACTULOSE SYRUP 30 GM/45 ML UDP PO SCH (22:04)
[2022-07-19] MEDS: rifAXIMin 550 MG TABLET PO SCH (22:04)
[2022-07-19] MEDS: FERROUS SULFATE 325 MG TAB PO SCH (22:05)
[2022-07-19] MEDS: PANTOprazole 40 MG TAB PO SCH (22:05)
--- NOTE | 2022-07-19 22:37 | Electrocardiogram Report ---
Test Reason : Blood Pressure : / mmHG Vent. Rate : 078 BPM Atrial Rate : 093 BPM P-R Int : 000 ms QRS Dur : 094 ms QT Int : 418 ms P-R-T Axes : 000 029 011 degrees QTc Int : 476 ms Atrial fibrillation Nonspecific ST abnormality Abnormal ECG When compared with ECG of 08-JUL-2022 15:36, Premature ventricular complexes are no longer Present Confirmed by Rachid Todd ([id number]) on 07/19/2022 10:36:44 PM Referred By: REFERRED SELF Confirmed By:Rachid Todd
[2022-07-20 07:02] LABS: Red Blood Count 4.03 M/uL (4.63-6.08); White Blood Count 5.45 K/ul (4.8-10.8)
[2022-07-20 07:03] LABS: Hematocrit (blood only) 39.9 % (40.1-51.0); Hemoglobin 14.7 g/dl (14.0-18.0); Mean Corpuscular Hemoglobin 36.5 pg (25.0-34.0); Mean Corpuscular Hgb Conc 36.8 g/dL (32.0-36.0); Platelet Count 159 K/uL (130-400); RDW Coefficient of Variation 13.1 % (11.5-14.5); RDW Standard Deviation 47.8 fL (36.4-46.3)
[2022-07-20 07:26] LABS: Partial Thromboplastin Ratio 1.3
[2022-07-20 08:07] LABS: BUN Creatinine Ratio 25.3 (10-20); Calcium 8.8 mg/dl (8.5-10.1); Creatinine Clr Calc Pharmacy 73.2 ml/min; Est GFR (African American) 101.3 ml/min; Est GFR (Non-African American) 87.4 ml/min; Potassium 4.3 mmol/L (3.5-5.1)
[2022-07-20] MEDS ORDERED: CHOLECALCIFEROL 1,000 UNITS 25 MCG TAB PO SCH (09:00)
[2022-07-20] MEDS ORDERED: PNEUMOCOCCAL POLYSACCHARIDES 25 MCG/0.5 ML VIAL/SYR IM ONE (09:00)
[2022-07-20] MEDS ORDERED: UMECLIDINIUM/VILANTEROL 62.5/25MCG 7 PUFFS/INHALER INH SCH (09:00)
[2022-07-20] MEDS ORDERED: lisinopril 5 MG TAB PO SCH (09:00)
[2022-07-20] MEDS ORDERED: INFLUENZA VACCINE HIGH DOSE PF 65+ 0.7 ML SYR IM ONE (09:00)
[2022-07-20] MEDS ORDERED: MULTIVITAMIN TAB PO SCH (09:00)
[2022-07-20] MEDS ORDERED: THIAMINE HCL 200 MG in SODIUM CHLORIDE 0.9% 50 ML IV SCH (09:00)
[2022-07-20] MEDS: POTASSIUM CHLORIDE CRTAB 20 MEQ TABCR PO SCH (10:08)
[2022-07-20] MEDS: LACTULOSE SYRUP 30 GM/45 ML UDP PO SCH ×2 (10:08→14:42)
[2022-07-20] MEDS: levETIRAcetam 500 MG TAB PO SCH (10:09)
[2022-07-20] MEDS: FERROUS SULFATE 325 MG TAB PO SCH (10:09)
[2022-07-20] MEDS: rifAXIMin 550 MG TABLET PO SCH (10:09)
[2022-07-20] MEDS: PANTOprazole 40 MG TAB PO SCH (10:09)
[2022-07-20] MEDS: FUROSEMIDE 40 MG TAB PO SCH ×2 (10:09→16:54)
--- NOTE | 2022-07-20 17:55 | Billing Data ---
Date of Service July 19, 2022 Coding Level of Care Code INT OBSERVATION CARE 50M LVL 2
--- NOTE | 2022-07-20 17:55 | Discharge Summary ---
Date of Service July 20, 2022 Admission HPI Per Admitting Provider 71yo Male PMH hx intracranial hemorrhage cirrhosis afib Insomnia gout carotid artery stenosis HLD alcohol abuse (quit 2014) admitted to hospital for AMS. Patient has dementia, unable to articular where he is or why he is in the hospital, states he needs to pee, states he has pain all over his abdomen though does not react to abd palpation. History obtained from calling Daughter Ankita Christianson [phone] POA. Daughter states patient lives with her, she and her daughter are primary caretakers help patient bath take meds, it is very stressful for them. On Friday patient had unplugged the baby monitor in his room was able to ambulate around feed himself drinks and snacks, had made his way to the bathroom, may have had an accident as he was found by the family craawling on the floor with dried poop on him. On Friday he overslept, Friday was ok. On patient's dog was put down, daughter believed him to be depressed, patient had stated he felt sad. On Friday family was not able to awake patient as usual in the morning, he 'was too out of it to eat anything or take his medication', became incontinent of bowel and bladder and soiled himself (patient at baseline partially incontinent of bowel, less so bladder). He was more confused and weak, so family called EMS. Family initially visited him in ED, however daughter had to leave to attend second job. Per daughter patient stopped drinking sic2014, may have had low blood sugar during EMS assessment but is not sure. Principal Diagnosis Hepatic encephalopathy Discharge Exam Constitutional well developed; + not well nourished and no acute distress Eyes PERRL, conjunctivae normal, anicteric sclerae Respiratory normal respiratory effort, lungs clear to auscultation Cardiovascular RRR, no murmur, no edema Gastrointestinal (Abdomen) normal bowel sounds, soft, nontender, no hepatosplenomegaly Neurologic moves all extremities, awake and + confused Speech / Cognition: + expressive aphasia Motor/Sensory: no pronator drift Psychiatric Orientation: alert; + not oriented x 3 (unable to fully assess due to dysphasia) Discharge Data Allergies Allergy/AdvReac Type Severity Reaction Status Date / Time terazosin Allergy Severe PRIAPISM- Verified 05/13/22 18:43 ON [facility] spironolactone Allergy Unknown ON Verified 05/13/22 18:43 [facility]. trazodone AdvReac Unknown Unknown Verified 05/13/22 18:43 Consultations 07/19/22 18:15 ED Decision to Admit Stat Ordered Studies 07/19/22 14:46 CT head/brain wo con Stat IMPRESSION: Chronic findings as above without acute intracranial abnormality. Hospital Course (1) Acute confusion: Nicolás Fortune is a 71 year old male observed at [facility] from July 19 - July 20, 2022 due to altered mental state with known chronic dysphasia. He was diagnosed with hepatic encephalopathy with increased ammonia levels. This was treated with increased dose of his usual lactulose. Recommended increasing his lactulose to three times a day. Discussed with daughter Ankita on discharge. They are not interested in intermediate placement at this time therefore given he is close to his baseline recommend returning home. Please continue to aim for 3-4 bowel movements a day to keep your ammonia levels down. (2) History of intracranial hemorrhage: (3) Atrial fibrillation: (4) Raynaud's disease: (5) Insomnia, persistent: (6) Gout, joint: (7) Cerebral vascular disease: (8) Pulmonary hypertension: (9) Hyperlipemia: Total Time Total Time Spent Total Time Spent (In Minutes): 40 Discharge Plan Discharge Items Patient Disposition: Home - Self-Care Reason For Visit: AMS Discharge Diagnosis: Hepatic encephalopathy Activity: Resume your previous activity Non-emergency contact: Primary Care Provider Call non-emergency contact if: you have any medication questions and your symptoms worsen Follow-up/Referrals: Craig Worthy, [Primary Care Provider] - Diet: Low Sodium (2gm) Addtl Attending Provider Instructions: You were observed at [facility] from July 19 - July 20, 2022 due to altered mental state. You were diagnosed with hepatic encephalopathy with increased ammonia levels. This was treated with increased dose of your usual lactulose. Recommend increasing your lactulose to three times a day. Please continue to aim for 3-4 bowel movements a day to keep your ammonia levels down. Pending Studies at Discharge: No Stand-Alone Forms: [facility] [employer], Smoking Cessation Medications and DC Order Prescriptions: Continued furosemide [Lasix] 40 mg tablet 40 mg PO BID Qty: 60 2RF Rx Instructions: give every AM at 8am, and every afternoon at 5pm. levetiracetam [Keppra] 500 mg tablet 500 mg PO Q12H Qty: 60 2RF lisinopril 5 mg tablet 5 mg PO DAILY Qty: 30 3RF pantoprazole [Protonix] 40 mg tablet,delayed release (DR/EC) 40 mg PO BID Qty: 60 2RF potassium chloride 20 mEq tablet,ER particles/crystals 20 meq PO BID Qty: 60 1RF albuterol sulfate 90 mcg/actuation HFA aerosol inhaler 1 inh inhalation QID PRN (Reason: shortness of breath or wheezing) Qty: 8.5 3RF ferrous sulfate 325 mg (65 mg iron) tablet 325 mg PO BID Qty: 180 1RF Anoro Ellipta 62.5-25 mcg/actuation blister with device 1 inh INHALATION QAM Qty: 60 11RF Rx Instructions: RINSE MOUTH THOROUGHLY AND SPIT AFTER EACH USE multivitamin [Daily-Verena] Tablet 1 tab PO QAM Qty: 30 2RF cholecalciferol (vitamin D3) 25 mcg (1,000 unit) Capsule 2,000 unit PO QAM Qty: 60 2RF acetaminophen 325 mg Tablet 650 mg PO Q4H MDD 3 GM APAP/24 HOURS PRN (Reason: Fever Or Pain) Rx Instructions: NEEDED FOR MILD PAIN OR FEVER GREATER THAN 100 F melatonin 3 mg Tablet 6 mg PO HS PRN (Reason: Sleep) rifaximin 550 mg Tablet 550 mg PO BID Rx Instructions: STOP 06/08/22 Ocular Lubricant 1 drp OPB QID PRN (Reason: Dry Eyes) Changed lactulose [Generlac] 10 gram/15 mL solution 20 g PO TID Qty: 946 0RF No Action lactulose 20 gram/30 mL solution 30 g PO TID Qty: 2880 0RF Rx Instructions: Increase/Decrease lactulose for a goal of 2-3 soft formed bowel movements daily Discharge Orders: Discharge Order (Routine); Ordered 07/20/22 Ordered By: Peyman Proctor Admission Data Admit Date/Time: 07/19/22 18:44 Attending Provider: Peyman Proctor Admit Provider: Emily Gar Primary Care Provider: Craig Worthy Other Providers: Peyman Proctor Other Interventions: Discharge Summary Assessment (RN) Last Done: 07/20/22 18:35 Coding Level of Care Code 15551 OBS Care - Discharge Diagnoses Acute confusion R41.0 History of intracranial hemorrhage Z86.79 Atrial fibrillation I48.91 Atrial fibrillation type: unspecified Raynaud's disease I73.00 Insomnia, persistent G47.00 Gout, joint M10.9 Cerebral vascular disease I67.9 Pulmonary hypertension I27.20 Hyperlipemia E78.5
== END 2022-07-20 18:49 | disposition home or self-care (01) ==
LOC: ED 14:29 → 3W 14:29

== ENCOUNTER 2022-07-22 16:10 | Inpatient (IN) ==
[2022-07-22] MEDS ORDERED: SODIUM CHLORIDE 0.9% 1000ML 1,000 ML IV SCH (20:00)
[2022-07-22 20:29] LABS: Basophils # (auto) 0.06 K/uL (0-0.2); Basophils % (auto) 0.7 %; Eosinophils # (auto) 0.24 K/uL (0-0.50); Eosinophils % (auto) 2.7 %; Hematocrit (blood only) 34.9 % (40.1-51.0); Hemoglobin 12.9 g/dl (14.0-18.0); Immature Granulocytes # (auto) 0.04 K/uL (0.00-0.02); Immature Granulocytes % (auto) 0.5 %; Lymphocytes # (auto) 0.88 K/uL (1.2-3.4); Lymphocytes % (auto) 10.1 %; Mean Corpuscular Hemoglobin 36.4 pg (25.0-34.0); Mean Corpuscular Volume 98.6 fL (80.0-100.0); Mean Platelet Volume 10.6 fL (9.4-12.4); Monocytes # (auto) 1.38 K/uL (0.24-0.82); Monocytes % (auto) 15.8 %; Neutrophils # (auto) 6.13 K/uL (1.4-6.5); Neutrophils % (auto) 70.2 %; Platelet Count 149 K/uL (130-400); RDW Coefficient of Variation 13.2 % (11.5-14.5); RDW Standard Deviation 47.8 fL (36.4-46.3); Red Blood Count 3.54 M/uL (4.63-6.08); White Blood Count 8.73 K/ul (4.8-10.8)
[2022-07-22 20:43] LABS: INR 1.2 (0.9-1.1); Partial Thromboplastin Ratio 1.3; Partial Thromboplastin Time 34.4 Seconds (21.0-31.0); Prothrombin Time 12.4 Seconds (9.0-12.0)
--- NOTE | 2022-07-22 20:45 | CT Scan Report ---
CT head/brain wo con CLINICAL HISTORY: 71 years-old Male with confusion, fall last week. Acutely altered mental status TECHNIQUE: Multiple axial CT images of the head were obtained without contrast. A dose lowering tech nique was utilized adhering to the principles of ALARA. CT DOSE: 537.48 mGy.cm COMPARISON: Head CT 07/19/2022 FINDINGS: No acute intracranial hemorrhage, midline shift, intracranial mass, hydrocephalus, territorial ischem ia or abnormal extra-axial collection. Age-related involutional changes. White matter hypodensities s uggest chronic microvascular ischemic disease. Left temporoparietal encephalomalacia redemonstrated.. Cerebral vascular calcifications. The calvarium is intact. Prior bilateral lens repair. The paranasal sinuses, mastoid air cells, and m iddle ear cavities are clear. IMPRESSION: Chronic findings as above without acute intracranial abnormality. ACT 112: Negative or not required by law. The above report was generated using voice recognition software. It may contain grammatical, syntax o r spelling errors. Electronically signed by: Ronald Dyer M.D. 07/22/2022 8:43 PM
[2022-07-22 20:55] LABS: Alanine Aminotransferase 17 U/L (7-52); Albumin Level 3.1 gm/dl (3.4-5.0); Alkaline Phosphatase 127 U/L (34-104); Anion Gap 7 (3-11); Aspartate Aminotransferase 33 U/L (13-39); BUN Creatinine Ratio 29.9 (10-20); Bilirubin,Total 2.7 mg/dl (0.2-1.0); Blood Urea Nitrogen 40 mg/dl (6-23); Calcium 8.6 mg/dl (8.5-10.1); Carbon Dioxide 20 mmol/L (21-32); Chloride 102 mmol/L (98-107); Est GFR (African American) 61.8 ml/min; Est GFR (Non-African American) 53.3 ml/min; Globulin 3.1 gm/dl (2.5-4.0); Glucose 115 mg/dl (70-99(Fasting)); Magnesium 1.7 mg/dl (1.7-2.4); Sodium 129 mmol/L (136-145); Total Protein 6.2 gm/dl (6.0-8.3)
--- NOTE | 2022-07-22 21:00 | XRay Report ---
XR chest 1V portable HISTORY: 71 years-old Male trauma acute chest trauma COMPARISON: Chest radiograph 07/19/2022, chest CT 10/16/2019 TECHNIQUE: Portable AP view of the chest FINDINGS: Cardiac silhouette is mildly enlarged. Chronic reticular interstitial coarsening. Atherosclerosis of the thoracic aorta. No pneumothorax, or pleural effusion, overt pulmonary edema or lobar airspace con solidation. Chronic right sided rib deformities. Degenerative changes of the shoulders and spine. IMPRESSION: Chronic findings as above without acute process. ACT 112: Negative or not required by law. The above report was generated using voice recognition software. It may contain grammatical, syntax o r spelling errors. Electronically signed by: Ronald Dyer M.D. 07/22/2022 8:59 PM
[2022-07-22] MEDS ORDERED: LACTULOSE SYRUP 20 GM/30 ML UDC PO ONE (21:13)
--- NOTE | 2022-07-22 21:13 | Emergency Department Note ---
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 Urine Bacteria (Auto) (Negative) Urine Osmolality 423 L (500-800) mOsm/kg SARS-CoV-2 (PCR) (Negative) Influenza Type A (PCR) (Neg) Influenza Type B (PCR) (Neg) RSV (RT-PCR) (Neg) Blood Parasites ID Imaging Data Radiologist's Impression: Chest X-Ray 07/22/22 19:59 XR chest 1V portable HISTORY: 71 years-old Male trauma acute chest trauma COMPARISON: Chest radiograph 07/19/2022, chest CT 10/16/2019 TECHNIQUE: Portable AP view of the chest FINDINGS: Cardiac silhouette is mildly enlarged. Chronic reticular interstitial coarsening. Atherosclerosis of the thoracic aorta. No pneumothorax, or pleural effusion, overt pulmonary edema or lobar airspace consolidation. Chronic right sided rib deformities. Degenerative changes of the shoulders and spine. IMPRESSION: Chronic findings as above without acute process. ACT 112: Negative or not required by law. The above report was generated using voice recognition software. It may contain grammatical, syntax or spelling errors. Electronically signed by: Ronald Dyer M.D. 07/22/2022 8:[address] 07/22/22 19:59 CT head/brain wo con CLINICAL HISTORY: 71 years-old Male with confusion, fall last week. Acutely altered mental status TECHNIQUE: Multiple axial CT images of the head were obtained without contrast. A dose lowering technique was utilized adhering to the principles of ALARA. CT DOSE: 537.48 mGy.cm COMPARISON: Head CT 07/19/2022 FINDINGS: No acute intracranial hemorrhage, midline shift, intracranial mass, hydrocephalus, territorial ischemia or abnormal extra-axial collection. Age- related involutional changes. White matter hypodensities suggest chronic microvascular ischemic disease. Left temporoparietal encephalomalacia redemon strated.. Cerebral vascular calcifications. The calvarium is intact. Prior bilateral lens repair. The paranasal sinuses, mastoid air cells, and middle ear cavities are clear. IMPRESSION: Chronic findings as above without acute intracranial abnormality. ACT 112: Negative or not required by law. The above report was generated using voice recognition software. It may contain grammatical, syntax or spelling errors. Electronically signed by: Ronald Dyer M.D. 07/22/2022 8:43 PM ECG Data Attestation: I personally reviewed and interpreted this ECG as follows: Indication: + altered mental status Rate (beats per minute): 79 Rhythm: + atrial fibrillation ECG Intervals/blocks: + Normal QRS and + Normal QT ECG [place]: + Normal ECG ST segments: + Nonspecific ST abnormalities MDM Narrative An order was placed for continuous cardiac monitoring. The monitor shows a rate of _70_ with _atrial fibrillation_ rhythm. This is a 71-year-old male brought in by family due to concern for worsening confusion despite recent inpatient stay. Patient with a history of prior intraparenchymal hemorrhage as well as history of hepatic encephalopathy. Family states they are present with him and daily and assure he is taking his medications as previously prescribed. Patient had no complaints but was obviously confused at bedside. He was hemodynamically stable and afebrile. Labs drawn and sent, repeat head CT performed as a precaution due to the change in mental status. Patient did have a significant elevation in his ammonia leve l. Patient has had a decline in his overall functionality and ability to perform ADLs despite help of family and other aides that are coming into the home. I discussed all results with family at bedside, case discussed with hospitalist for additional evaluation and management. Patient was found to have mild hyponatremia here. Patient's EKG did reveal atrial fibrillation which patient was found to have during his last admission. His heart rate is rate controlled. Impression & Plan AMS (altered mental status), Acute hepatic encephalopathy, Cirrhosis, Atrial fibrillation, Hyponatremia Discharge Plan Visit Data Chief Complaint: Confusion Stated Complaint: CONFUSION ED Provider: Christine Ortega Discharge Problem: AMS (altered mental status), Acute hepatic encephalopathy, Cirrhosis, Atrial fibrillation, Hyponatremia Patient Disposition: Admitted As Inpatient Discharge Instructions Interventions: ED Discharge Assessment Last Done: 07/23/22 02:39
[2022-07-22 21:46] LABS: Influenza A virus by PCR Negative (Neg); Influenza B virus by PCR Negative (Neg); RSV by PCR Negative (Neg); SARS CoV2 RNA(COVID-19)Cepheid NEGATIVE (Negative)
--- NOTE | 2022-07-22 22:36 | History & Physical Report ---
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 Cancelled Diagnostic Findings Chest X-Ray 07/22/22 19:59 XR chest 1V portable HISTORY: 71 years-old Male trauma acute chest trauma COMPARISON: Chest radiograph 07/19/2022, chest CT 10/16/2019 TECHNIQUE: Portable AP view of the chest FINDINGS: Cardiac silhouette is mildly enlarged. Chronic reticular interstitial coarsening. Atherosclerosis of the thoracic aorta. No pneumothorax, or pleural effusion, overt pulmonary edema or lobar airspace consolidation. Chronic right sided rib deformities. Degenerative changes of the shoulders and spine. IMPRESSION: Chronic findings as above without acute process. ACT 112: Negative or not required by law. The above report was generated using voice recognition software. It may contain grammatical, syntax or spelling errors. Electronically signed by: Ronald Dyer M.D. 07/22/2022 8:[address] 07/22/22 19:59 CT head/brain wo con CLINICAL HISTORY: 71 years-old Male with confusion, fall last week. Acutely altered mental status TECHNIQUE: Multiple axial CT images of the head were obtained without contrast. A dose lowering technique was utilized adhering to the principles of ALARA. CT DOSE: 537.48 mGy.cm COMPARISON: Head CT 07/19/2022 FINDINGS: No acute intracranial hemorrhage, midline shift, intracranial mass, hydroce phalus, territorial ischemia or abnormal extra-axial collection. Age-related involutional changes. White matter hypodensities suggest chronic microvascular ischemic disease. Left temporoparietal encephalomalacia redemonstrated.. Cerebral vascular calcifications. The calvarium is intact. Prior bilateral lens repair. The paranasal sinuses, mastoid air cells, and middle ear cavities are clear. IMPRESSION: Chronic findings as above without acute intracranial abnormality. ACT 112: Negative or not required by law. The above report was generated using voice recognition software. It may contain grammatical, syntax or spelling errors. Electronically signed by: Ronald Dyer M.D. 07/22/2022 8:43 PM Code Status & VTE Plan Code Status DNR/DNI Supervising Physician Co-Signing Physician Notes Patient seen and examined, chart reviewed, case discussed with Dr. aCrrasquillo and I agree with the assessment and plan as documented above. In brief, patient is a 71-year-old male with complicated past medical history to include alcoholic cirrhosis of the liver, COPD, recent COVID-19 infection, intracranial hemorrhagePresenting with cognitive decline. Family reports that he has been more confused than usual, agitation. Was recently admitted to [facility] and treated for acute hepatic encephalopathy. He is presently on rifaximin as well as lactulose. Family reports he is compliant with these medications. On physical exam he is afebrile, hemodynamically stable, no acute distress. Chronically ill in appearance Skin with scattered bruises HEENT with moist mucous membranes, neck supple Heart + S1, S2, regular Lungs CTA Abdomensoft, nontender, nondistended Neuroanswer some questions and is able to follow commands. Oriented to self only, positive asterixis Labs and images reviewed. Significant forStable anemia, sodium = 129, CO2 = 20, BUN = 40, ammonia = 156 Assessment/[id number] male with multiple medical problems presenting with toxic encephalopathy/delirium most likely secondary to hepatic encephalopathy. Less likely infection, medication effects, Covid-19 effects -will increase lactulose to QID -continue Rifaximin -PT/OT evaluation -Remainder as above Resident Activity Tracking Resident Involvement: Resident Care Provided Care Provided: Adult Hospital Medicine
[2022-07-22 23:07] LABS: Appearance Urine Clear (Clear); Bacteria Urine Automated Negative (Negative); Bilirubin Urine Negative (Negative); Blood Urine Negative (Negative); Color Urine Dark Yellow; Glucose Urine UA Negative (Negative); Ketones Urine Negative (Negative); Leukocyte Esterase Urine Trace (Negative); Nitrite Urine Negative (Negative); Protein Urine Negative (Negative); RBC Urine Automated 0-4 /hpf (0-4); Specific Gravity Urine 1.015 (1.000-1.030); Urobilinogen Urine Negative (Negative); pH Urine 5.5 (4.5-7.5)
[2022-07-23] MEDS ORDERED: ALBUTEROL HFA 8 GM INHALER INH PRN (03:10)
[2022-07-23] MEDS ORDERED: ARTIFICIAL TEARS OP PRN (03:26)
--- NOTE | 2022-07-23 03:44 | Billing Data ---
Date of Service July 23, 2022 Coding Level of Care Code 92729 Initial Inpt Care Lvl 3
[2022-07-23 06:35] LABS: Basophils # (auto) 0.05 K/uL (0-0.2); Basophils % (auto) 0.8 %; Eosinophils # (auto) 0.24 K/uL (0-0.50); Eosinophils % (auto) 3.9 %; Hematocrit (blood only) 34.8 % (40.1-51.0); Hemoglobin 12.8 g/dl (14.0-18.0); Immature Granulocytes # (auto) 0.02 K/uL (0.00-0.02); Immature Granulocytes % (auto) 0.3 %; Lymphocytes # (auto) 0.77 K/uL (1.2-3.4); Lymphocytes % (auto) 12.5 %; Mean Corpuscular Hemoglobin 36.4 pg (25.0-34.0); Mean Corpuscular Hgb Conc 36.8 g/dL (32.0-36.0); Mean Corpuscular Volume 98.9 fL (80.0-100.0); Mean Platelet Volume 10.5 fL (9.4-12.4); Monocytes # (auto) 0.75 K/uL (0.24-0.82); Monocytes % (auto) 12.2 %; Neutrophils # (auto) 4.33 K/uL (1.4-6.5); Neutrophils % (auto) 70.3 %; Platelet Count 135 K/uL (130-400); RDW Coefficient of Variation 13.2 % (11.5-14.5); RDW Standard Deviation 47.3 fL (36.4-46.3); Red Blood Count 3.52 M/uL (4.63-6.08); White Blood Count 6.16 K/ul (4.8-10.8)
[2022-07-23 06:51] LABS: BUN Creatinine Ratio 30.8 (10-20); Bilirubin,Total 2.8 mg/dl (0.2-1.0); Calcium 8.4 mg/dl (8.5-10.1); Creatinine Clr Calc Pharmacy 62.5 ml/min; Est GFR (African American) 81.1 ml/min; Globulin 2.9 gm/dl (2.5-4.0); Potassium 4.3 mmol/L (3.5-5.1); Total Protein 5.9 gm/dl (6.0-8.3)
--- NOTE | 2022-07-23 07:52 | Hospitalist Progress Note ---
Date of Service July 23, 2022 Assessment & Plan (1) Acute alteration in mental status: (2) Acute hepatic encephalopathy: (3) Alcoholic cirrhosis of liver: (4) GERD (gastroesophageal reflux disease): (5) Hypertension: (6) COPD (chronic obstructive pulmonary disease): Plan Mr. Fortune is a 71 y/o M with PMH of intracranial hemorrhage, alcohol induced cirrhosis, atrial fibrillation, insomnia, gout, carotid artery stenosis, COPD, who was admitted to the hospital for altered mental status. Patient has had increased confusion and agitation over the past few days (recently discharged from [facility] 07/20). His presentation is largely unchanged from previous admission, confusion is likely in the setting of hepatic encephalopathy though there may be a component of delirium involved. He is currently clinically stable. #Altered Mental Status: Secondary to Hepatic Encephalopathy/Hyperactive Delirium Patient has a known history of alcoholic cirrhosis. He has previously had bouts of hepatic encephalopathy. It is unclear if he is still consuming alcohol - ordered Tox screen. His AMS is likely 2/2 to hepatic encephalopathy. There may be a component of delirium involved. Avoid sedating meds. Though WBC was WNL since etiology is unclear it is reasonable to order UA with reflex culture to eval for infection that could be contributing to his change in mental status. CT Head and CXR did not show any acute changes. CT Head did show white matter hypodensities suggest chronic microvascular ischemic disease, left temporoparietal encephalomalacia re-demonstrated, and cerebral vascular calcifications. Baseline mentation is unclear. [] Ammonia:156, repeat 46.6 [] Lactulose QID [] Continue Rifaximin [] Urine tox [] UA with culture #Hyponatremia Upon admission Na was 129 (at time of 07/20 discharge 137). Etiology unclear - could be related to cirrhosis. Repeat BMP showed Na 134. Encourage PO intake. Na: 129, down from 137 on 07/20, 134 07/23. Patient was given IVF in the ED but these were d/c as patient was tolerating PO intake. BUN was also elevated. [] AM CMP [] Urine/serum osmolality ordered #Liver Cirrhosis Patient has a known history of alcoholic cirrhosis. PT:12.4, INR:1.2, Alk Phos:127. MELD 17 #Atrial Fibrillation Rate controlled. Patient is not on anticoagulation due to recent intraparenchymal hemorrhage #Hypertension Patient on lisinopril and Lasix at home for hypertension. BP within acceptable range. Continue home meds #Hx of Intracranial Hemorrhage Continue Levetiracetam #Deconditioning PT/OT consult placed. Will need case management consult for possible placement [] PT/OT [] Case Management #GERD Continue Protonix #COPD Continue home inhaler Diet: Easy to chew DVT PPx: SCDs Dispo: Med/Surg Code Status: DNR/DNI Admission and Anticipated Discharge Date Admission Date: July 23, 2022 Supervising Physician Co-Signing Physician Notes I saw and evaluated patient with resident physician, Dr. Stevenson. I agree with her assessment and plan. Regarding his altered mental status his overall exam appears to be improving in comparison to earlier this morning. The lactulose appears to be helping in terms of decreasing his ammonia which is likely the inciting cause of his altered mental status. To ensure that there is no other organic pathology, we will check a urine toxicology to confirm that there are no other substances other than alcohol in his system. It is unclear about the amount of alcohol he consumes on a regular basis but this appears to be more of a chronic use. We will also check a urinalysis and urine culture to confirm that he does not have a urinary tract infection as well. For now, continue with the lactulose regimen and continue monitoring his overall mental status. He is currently able to tolerate all p.o. intake so No indication for IV fluids.. Subjective Patient unable to provide history 2/2 mental status. Review of Systems Review of Systems: See above. Physical Exam Constitutional: + altered mental status Eyes: + anicteric sclerae and EOM intact bilaterally ENMT: Mouth: + poor dentition Respiratory: normal respiratory effort, lungs clear to auscultation Cardiovascular: Rate/Rhythm: + irregularly irregular Heart Sounds: normal S1 and normal S2 Extremities: no edema Gastrointestinal (Abdomen): Percussion/Palpation: abdomen soft; abdomen nontender Musculoskeletal: Extremities: extremities normal to inspection Skin: no rashes, warm and dry Psychiatric: confused, expressive aphasia Results & Data Results & Data ([facility]) Vital Signs (Past 12 Hours) Vital Signs Temp Pulse Resp BP Pulse Ox O2 Del Method 07/23/22 03:26 36.5 C 67 18 131/70 99 Room Air 07/23/22 01:30 65 16 145/75 H 98 Room Air 07/22/22 22:55 72 16 116/74 98 Room Air 07/22/22 20:57 68 18 113/50 L 97 Room Air Laboratory Results 07/23/22 07/23/22 07/23/22 Range/Units 06:08 06:08 06:08 WBC 6.16 RBC 3.52 L Hgb 12.8 L Hct 34.8 L MCV 98.9 MCH 36.4 H MCHC 36.8 H RDW Std Deviation 47.3 H RDW Coeff of Ramses 13.2 Plt Count 135 MPV 10.5 Immature Gran % (Auto) 0.3 Neut % (Auto) 70.3 Lymph % (Auto) 12.5 [place] % (Auto) 12.2 Eos % (Auto) 3.9 Baso % (Auto) 0.8 Neut # (Auto) 4.33 Lymph # (Auto) 0.77 L [place] # (Auto) 0.75 Eos # (Auto) 0.24 Baso # (Auto) 0.05 Immature Gran # (Auto) 0.02 Absolute Nucleated RBC Nucleated RBC % (auto) Neutrophils % (Manual) Band Neutrophils % Lymphocytes % (Manual) Prolymphocyte % Reactive Lymphs % (Man) Monocytes % (Manual) Eosinophils % (Manual) Basophils % (Manual) Metamyelocytes % (Man) Myelocytes % (Man) Promyelocytes % (Man) Blast Cells % (Manual) Plasma Cell % (Manual) Other Cells % Nucleated RBC % Neutrophils # (Manual) Band Neutrophils # Total Absolute Neuts Lymphocytes # (Manual) Prolymphocyte # Reactive Lymphs # Total Abs Lymphocytes Monocytes # (Manual) Eosinophils # (Manual) Basophils # (Manual) Metamyelocytes # (Man) Myelocytes # (Manual) Promyelocytes # (Man) Blast Cells # (Man) Plasma Cell # (Manual) Other Cells # Nucleated RBCs # (Man) Hypersegmented Neuts Hyposegmented Neuts Hypogranular Neuts Large Granular Lymphs # Lrg Granular Lymphs Hairy Cells Smudge Cells Toxic Granulation Toxic Vacuolation Dohle Bodies Honey Rods Platelet Estimate Hypogranular Platelets Clumped Platelets Giant Platelets Platelet Satelliting RBC Morphology Polychromasia Hypochromasia Poikilocytosis Basophilic Stippling Anisocytosis Microcytosis Macrocytosis Spherocytes Pappenheimer Bodies Sickle Cells Target Cells Tear Drop Cells Ovalocytes Stomatocytes Baker-Mcarthur Bodies Echinocytes Acanthocytes (Spur) Rouleaux RBC Agglutinates Schistocytes Sezary Cell PT INR APTT PTT Ratio Sodium 134 L Potassium 4.3 Chloride 104 Carbon Dioxide 24 Anion Gap 6 BUN 33 H Creatinine 1.07 Est Cr Clr Drug Dosing 62.5 Est GFR ( Amer) 81.1 Est GFR (Non-Af Amer) 70.0 BUN/Creatinine Ratio 30.8 H Glucose 92 Osmolality (280-300) mOsm/kg Lactate (0.4-2.0) mmol/L Calcium 8.4 L Magnesium Total Bilirubin 2.8 H AST 31 ALT 18 Alkaline Phosphatase 118 H Ammonia 46.0 (18-72) umol/L Troponin I High Sens (0-20) pg/ml Total Protein 5.9 L Albumin 3.0 L Globulin 2.9 Albumin/Globulin Ratio 1.0 TSH (0.300-4.500) uIu/ml Urine Color Urine Appearance (Clear) Urine pH (4.5-7.5) Ur Specific [place] (1.000-1.030) Urine Protein (Negative) Urine Glucose (UA) (Negative) Urine Ketones (Negative) Urine Blood (Negative) Urine Nitrite (Negative) Urine Bilirubin (Negative) Urine Urobilinogen (Negative) Ur Leukocyte Esterase (Negative) Urine WBC (Auto) (0-5) /hpf Urine RBC (Auto) (0-4) /hpf U Hyaline Cast (Auto) (0-5) /lpf U Epithel Cells (Auto) (0-5) /lpf Urine Bacteria (Auto) (Negative) Urine Osmolality (500-800) mOsm/kg SARS-CoV-2 (PCR) (Negative) Influenza Type A (PCR) (Neg) Influenza Type B (PCR) (Neg) RSV (RT-PCR) (Neg) Blood Parasites ID 07/22/22 07/22/22 07/22/22 Range/Units 23:00 23:00 21:00 WBC RBC Hgb Hct MCV MCH MCHC RDW Std Deviation RDW Coeff of Ramses Plt Count MPV Immature Gran % (Auto) Neut % (Auto) Lymph % (Auto) [place] % (Auto) Eos % (Auto) Baso % (Auto) Neut # (Auto) Lymph # (Auto) [place] # (Auto) Eos # (Auto) Baso # (Auto) Immature Gran # (Auto) Absolute Nucleated RBC Nucleated RBC % (auto) Neutrophils % (Manual) Band Neutrophils % Lymphocytes % (Manual) Prolymphocyte % Reactive Lymphs % (Man) Monocytes % (Manual) Eosinophils % (Manual) Basophils % (Manual) Metamyelocytes % (Man) Myelocytes % (Man) Promyelocytes % (Man) Blast Cells % (Manual) Plasma Cell % (Manual) Other Cells % Nucleated RBC % Neutrophils # (Manual) Band Neutrophils # Total Absolute Neuts Lymphocytes # (Manual) Prolymphocyte # Reactive Lymphs # Total Abs Lymphocytes Monocytes # (Manual) Eosinophils # (Manual) Basophils # (Manual) Metamyelocytes # (Man) Myelocytes # (Manual) Promyelocytes # (Man) Blast Cells # (Man) Plasma Cell # (Manual) Other Cells # Nucleated RBCs # (Man) Hypersegmented Neuts Hyposegmented Neuts Hypogranular Neuts Large Granular Lymphs # Lrg Granular Lymphs Hairy Cells Smudge Cells Toxic Granulation Toxic Vacuolation Dohle Bodies Honey Rods Platelet Estimate Hypogranular Platelets Clumped Platelets Giant Platelets Platelet Satelliting RBC Morphology Polychromasia Hypochromasia Poikilocytosis Basophilic Stippling Anisocytosis Microcytosis Macrocytosis Spherocytes Pappenheimer Bodies Sickle Cells Target Cells Tear Drop Cells Ovalocytes Stomatocytes Baker-Mcarthur Bodies Echinocytes Acanthocytes (Spur) Rouleaux RBC Agglutinates Schistocytes Sezary Cell PT INR APTT PTT Ratio Sodium Potassium Chloride Carbon Dioxide Anion Gap BUN Creatinine Est Cr Clr Drug Dosing Est GFR ( Amer) Est GFR (Non-Af Amer) BUN/Creatinine Ratio Glucose Osmolality (280-300) mOsm/kg Lactate (0.4-2.0) mmol/L Calcium Magnesium Total Bilirubin AST ALT Alkaline Phosphatase Ammonia (18-72) umol/L Troponin I High Sens (0-20) pg/ml Total Protein Albumin Globulin Albumin/Globulin Ratio TSH (0.300-4.500) uIu/ml Urine Color Dark Yellow Urine Appearance Clear (Clear) Urine pH 5.5 (4.5-7.5) Ur Specific [place] 1.015 (1.000-1.030) Urine Protein Negative (Negative) Urine Glucose (UA) Negative (Negative) Urine Ketones Negative (Negative) Urine Blood Negative (Negative) Urine Nitrite Negative (Negative) Urine Bilirubin Negative (Negative) Urine Urobilinogen Negative (Negative) Ur Leukocyte Esterase Trace H (Negative) Urine WBC (Auto) 1-5 (0-5) /hpf Urine RBC (Auto) 0-4 (0-4) /hpf U Hyaline Cast (Auto) 5-10 H (0-5) /lpf U Epithel Cells (Auto) 5-10 H (0-5) /lpf Urine Bacteria (Auto) Negative (Negative) Urine Osmolality 423 L (500-800) mOsm/kg SARS-CoV-2 (PCR) NEGATIVE (Negative) Influenza Type A (PCR) Negative (Neg) Influenza Type B (PCR) Negative (Neg) RSV (RT-PCR) Negative (Neg) Blood Parasites ID 07/22/22 07/22/22 07/22/22 Range/Units 20:16 20:15 20:15 WBC RBC Hgb Hct MCV MCH MCHC RDW Std Deviation RDW Coeff of Ramses Plt Count MPV Immature Gran % (Auto) Neut % (Auto) Lymph % (Auto) [place] % (Auto) Eos % (Auto) Baso % (Auto) Neut # (Auto) Lymph # (Auto) [place] # (Auto) Eos # (Auto) Baso # (Auto) Immature Gran # (Auto) Absolute Nucleated RBC Nucleated RBC % (auto) Neutrophils % (Manual) Band Neutrophils % Lymphocytes % (Manual) Prolymphocyte % Reactive Lymphs % (Man) Monocytes % (Manual) Eosinophils % (Manual) Basophils % (Manual) Metamyelocytes % (Man) Myelocytes % (Man) Promyelocytes % (Man) Blast Cells % (Manual) Plasma Cell % (Manual) Other Cells % Nucleated RBC % Neutrophils # (Manual) Band Neutrophils # Total Absolute Neuts Lymphocytes # (Manual) Prolymphocyte # Reactive Lymphs # Total Abs Lymphocytes Monocytes # (Manual) Eosinophils # (Manual) Basophils # (Manual) Metamyelocytes # (Man) Myelocytes # (Manual) Promyelocytes # (Man) Blast Cells # (Man) Plasma Cell # (Manual) Other Cells # Nucleated RBCs # (Man) Hypersegmented Neuts Hyposegmented Neuts Hypogranular Neuts Large Granular Lymphs # Lrg Granular Lymphs Hairy Cells Smudge Cells Toxic Granulation Toxic Vacuolation Dohle Bodies Honey Rods Platelet Estimate Hypogranular Platelets Clumped Platelets Giant Platelets Platelet Satelliting RBC Morphology Polychromasia Hypochromasia Poikilocytosis Basophilic Stippling Anisocytosis Microcytosis Macrocytosis Spherocytes Pappenheimer Bodies Sickle Cells Target Cells Tear Drop Cells Ovalocytes Stomatocytes Baker-Mcarthur Bodies Echinocytes Acanthocytes (Spur) Rouleaux RBC Agglutinates Schistocytes Sezary Cell PT INR APTT PTT Ratio Sodium Potassium Chloride Carbon Dioxide Anion Gap BUN Creatinine Est Cr Clr Drug Dosing Est GFR ( Amer) Est GFR (Non-Af Amer) BUN/Creatinine Ratio Glucose Osmolality 291 (280-300) mOsm/kg Lactate 0.7 (0.4-2.0) mmol/L Calcium Magnesium Total Bilirubin AST ALT Alkaline Phosphatase Ammonia 156.0 H (18-72) umol/L Troponin I High Sens (0-20) pg/ml Total Protein Albumin Globulin Albumin/Globulin Ratio TSH (0.300-4.500) uIu/ml Urine Color Urine Appearance (Clear) Urine pH (4.5-7.5) Ur Specific [place] (1.000-1.030) Urine Protein (Negative) Urine Glucose (UA) (Negative) Urine Ketones (Negative) Urine Blood (Negative) Urine Nitrite (Negative) Urine Bilirubin (Negative) Urine Urobilinogen (Negative) Ur Leukocyte Esterase (Negative) Urine WBC (Auto) (0-5) /hpf Urine RBC (Auto) (0-4) /hpf U Hyaline Cast (Auto) (0-5) /lpf U Epithel Cells (Auto) (0-5) /lpf Urine Bacteria (Auto) (Negative) Urine Osmolality (500-800) mOsm/kg SARS-CoV-2 (PCR) (Negative) Influenza Type A (PCR) (Neg) Influenza Type B (PCR) (Neg) RSV (RT-PCR) (Neg) Blood Parasites ID 07/22/22 07/22/22 07/22/22 Range/Units 20:15 20:15 20:15 WBC 8.73 RBC 3.54 L Hgb 12.9 L Hct 34.9 L MCV 98.6 MCH 36.4 H MCHC 37.0 H RDW Std Deviation 47.8 H RDW Coeff of Ramses 13.2 Plt Count 149 MPV 10.6 Immature Gran % (Auto) 0.5 Neut % (Auto) 70.2 Lymph % (Auto) 10.1 [place] % (Auto) 15.8 Eos % (Auto) 2.7 Baso % (Auto) 0.7 Neut # (Auto) 6.13 Lymph # (Auto) 0.88 L [place] # (Auto) 1.38 H Eos # (Auto) 0.24 Baso # (Auto) 0.06 Immature Gran # (Auto) 0.04 H Absolute Nucleated RBC Nucleated RBC % (auto) Neutrophils % (Manual) Band Neutrophils % Lymphocytes % (Manual) Prolymphocyte % Reactive Lymphs % (Man) Monocytes % (Manual) Eosinophils % (Manual) Basophils % (Manual) Metamyelocytes % (Man) Myelocytes % (Man) Promyelocytes % (Man) Blast Cells % (Manual) Plasma Cell % (Manual) Other Cells % Nucleated RBC % Neutrophils # (Manual) Band Neutrophils # Total Absolute Neuts Lymphocytes # (Manual) Prolymphocyte # Reactive Lymphs # Total Abs Lymphocytes Monocytes # (Manual) Eosinophils # (Manual) Basophils # (Manual) Metamyelocytes # (Man) Myelocytes # (Manual) Promyelocytes # (Man) Blast Cells # (Man) Plasma Cell # (Manual) Other Cells # Nucleated RBCs # (Man) Hypersegmented Neuts Hyposegmented Neuts Hypogranular Neuts Large Granular Lymphs # Lrg Granular Lymphs Hairy Cells Smudge Cells Toxic Granulation Toxic Vacuolation Dohle Bodies Honey Rods Platelet Estimate Hypogranular Platelets Clumped Platelets Giant Platelets Platelet Satelliting RBC Morphology Polychromasia Hypochromasia Poikilocytosis Basophilic Stippling Anisocytosis Microcytosis Macrocytosis Spherocytes Pappenheimer Bodies Sickle Cells Target Cells Tear Drop Cells Ovalocytes Stomatocytes Baker-Mcarthur Bodies Echinocytes Acanthocytes (Spur) Rouleaux RBC Agglutinates Schistocytes Sezary Cell PT 12.4 H INR 1.2 H APTT 34.4 H PTT Ratio 1.3 Sodium 129 L Potassium 5.0 Chloride 102 Carbon Dioxide 20 L Anion Gap 7 BUN 40 H Creatinine 1.34 Est Cr Clr Drug Dosing Not Reportable Est GFR ( Amer) 61.8 Est GFR (Non-Af Amer) 53.3 BUN/Creatinine Ratio 29.9 H Glucose 115 H Osmolality (280-300) mOsm/kg Lactate (0.4-2.0) mmol/L Calcium 8.6 Magnesium 1.7 Total Bilirubin 2.7 H AST 33 ALT 17 Alkaline Phosphatase 127 H Ammonia (18-72) umol/L Troponin I High Sens (0-20) pg/ml Total Protein 6.2 Albumin 3.1 L Globulin 3.1 Albumin/Globulin Ratio 1.0 TSH (0.300-4.500) uIu/ml Urine Color Urine Appearance (Clear) Urine pH (4.5-7.5) Ur Specific [place] (1.000-1.030) Urine Protein (Negative) Urine Glucose (UA) (Negative) Urine Ketones (Negative) Urine Blood (Negative) Urine Nitrite (Negative) Urine Bilirubin (Negative) Urine Urobilinogen (Negative) Ur Leukocyte Esterase (Negative) Urine WBC (Auto) (0-5) /hpf Urine RBC (Auto) (0-4) /hpf U Hyaline Cast (Auto) (0-5) /lpf U Epithel Cells (Auto) (0-5) /lpf Urine Bacteria (Auto) (Negative) Urine Osmolality (500-800) mOsm/kg SARS-CoV-2 (PCR) (Negative) Influenza Type A (PCR) (Neg) Influenza Type B (PCR) (Neg) RSV (RT-PCR) (Neg) Blood Parasites ID 07/22/22 07/22/22 07/22/22 Range/Units 18:19 18:19 18:19 WBC RBC Hgb Hct MCV MCH MCHC RDW Std Deviation RDW Coeff of Ramses Plt Count MPV Immature Gran % (Auto) Neut % (Auto) Lymph % (Auto) [place] % (Auto) Eos % (Auto) Baso % (Auto) Neut # (Auto) Lymph # (Auto) [place] # (Auto) Eos # (Auto) Baso # (Auto) Immature Gran # (Auto) Absolute Nucleated RBC Nucleated RBC % (auto) Neutrophils % (Manual) Band Neutrophils % Lymphocytes % (Manual) Prolymphocyte % Reactive Lymphs % (Man) Monocytes % (Manual) Eosinophils % (Manual) Basophils % (Manual) Metamyelocytes % (Man) Myelocytes % (Man) Promyelocytes % (Man) Blast Cells % (Manual) Plasma Cell % (Manual) Other Cells % Nucleated RBC % Neutrophils # (Manual) Band Neutrophils # Total Absolute Neuts Lymphocytes # (Manual) Prolymphocyte # Reactive Lymphs # Total Abs Lymphocytes Monocytes # (Manual) Eosinophils # (Manual) Basophils # (Manual) Metamyelocytes # (Man) Myelocytes # (Manual) Promyelocytes # (Man) Blast Cells # (Man) Plasma Cell # (Manual) Other Cells # Nucleated RBCs # (Man) Hypersegmented Neuts Hyposegmented Neuts Hypogranular Neuts Large Granular Lymphs # Lrg Granular Lymphs Hairy Cells Smudge Cells Toxic Granulation Toxic Vacuolation Dohle Bodies Honey Rods Platelet Estimate Hypogranular Platelets Clumped Platelets Giant Platelets Platelet Satelliting RBC Morphology Polychromasia Hypochromasia Poikilocytosis Basophilic Stippling Anisocytosis Microcytosis Macrocytosis Spherocytes Pappenheimer Bodies Sickle Cells Target Cells Tear Drop Cells Ovalocytes Stomatocytes Baker-Mcarthur Bodies Echinocytes Acanthocytes (Spur) Rouleaux RBC Agglutinates Schistocytes Sezary Cell PT Cancelled INR Cancelled APTT Cancelled PTT Ratio Cancelled Sodium Cancelled Potassium Cancelled Chloride Cancelled Carbon Dioxide Cancelled Anion Gap Cancelled BUN Cancelled Creatinine Cancelled Est Cr Clr Drug Dosing Cancelled Est GFR ( Amer) Cancelled Est GFR (Non-Af Amer) Cancelled BUN/Creatinine Ratio Cancelled Glucose Cancelled Osmolality (280-300) mOsm/kg Lactate (0.4-2.0) mmol/L Calcium Cancelled Magnesium Cancelled Total Bilirubin Cancelled AST Cancelled ALT Cancelled Alkaline Phosphatase Cancelled Ammonia (18-72) umol/L Troponin I High Sens 20.4 H (0-20) pg/ml Total Protein Cancelled Albumin Cancelled Globulin Cancelled Albumin/Globulin Ratio Cancelled TSH 3.043 (0.300-4.500) uIu/ml Urine Color Urine Appearance (Clear) Urine pH (4.5-7.5) Ur Specific [place] (1.000-1.030) Urine Protein (Negative) Urine Glucose (UA) (Negative) Urine Ketones (Negative) Urine Blood (Negative) Urine Nitrite (Negative) Urine Bilirubin (Negative) Urine Urobilinogen (Negative) Ur Leukocyte Esterase (Negative) Urine WBC (Auto) (0-5) /hpf Urine RBC (Auto) (0-4) /hpf U Hyaline Cast (Auto) (0-5) /lpf U Epithel Cells (Auto) (0-5) /lpf Urine Bacteria (Auto) (Negative) Urine Osmolality (500-800) mOsm/kg SARS-CoV-2 (PCR) (Negative) Influenza Type A (PCR) (Neg) Influenza Type B (PCR) (Neg) RSV (RT-PCR) (Neg) Blood Parasites ID 07/22/22 Range/Units 18:19 WBC Cancelled RBC Cancelled Hgb Cancelled Hct Cancelled MCV Cancelled MCH Cancelled MCHC Cancelled RDW Std Deviation Cancelled RDW Coeff of Rmases Cancelled Plt Count Cancelled MPV Cancelled Immature Gran % (Auto) Cancelled Neut % (Auto) Cancelled Lymph % (Auto) Cancelled [place] % (Auto) Cancelled Eos % (Auto) Cancelled Baso % (Auto) Cancelled Neut # (Auto) Cancelled Lymph # (Auto) Cancelled [place] # (Auto) Cancelled Eos # (Auto) Cancelled Baso # (Auto) Cancelled Immature Gran # (Auto) Cancelled Absolute Nucleated RBC Cancelled Nucleated RBC % (auto) Cancelled Neutrophils % (Manual) Cancelled Band Neutrophils % Cancelled Lymphocytes % (Manual) Cancelled Prolymphocyte % Cancelled Reactive Lymphs % (Man) Cancelled Monocytes % (Manual) Cancelled Eosinophils % (Manual) Cancelled Basophils % (Manual) Cancelled Metamyelocytes % (Man) Cancelled Myelocytes % (Man) Cancelled Promyelocytes % (Man) Cancelled Blast Cells % (Manual) Cancelled Plasma Cell % (Manual) Cancelled Other Cells % Cancelled Nucleated RBC % Cancelled Neutrophils # (Manual) Cancelled Band Neutrophils # Cancelled Total Absolute Neuts Cancelled Lymphocytes # (Manual) Cancelled Prolymphocyte # Cancelled Reactive Lymphs # Cancelled Total Abs Lymphocytes Cancelled Monocytes # (Manual) Cancelled Eosinophils # (Manual) Cancelled Basophils # (Manual) Cancelled Metamyelocytes # (Man) Cancelled Myelocytes # (Manual) Cancelled Promyelocytes # (Man) Cancelled Blast Cells # (Man) Cancelled Plasma Cell # (Manual) Cancelled Other Cells # Cancelled Nucleated RBCs # (Man) Cancelled Hypersegmented Neuts Cancelled Hyposegmented Neuts Cancelled Hypogranular Neuts Cancelled Large Granular Lymphs Cancelled # Lrg Granular Lymphs Cancelled Hairy Cells Cancelled Smudge Cells Cancelled Toxic Granulation Cancelled Toxic Vacuolation Cancelled Dohle Bodies Cancelled Honey Rods Cancelled Platelet Estimate Cancelled Hypogranular Platelets Cancelled Clumped Platelets Cancelled Giant Platelets Cancelled Platelet Satelliting Cancelled RBC Morphology Cancelled Polychromasia Cancelled Hypochromasia Cancelled Poikilocytosis Cancelled Basophilic Stippling Cancelled Anisocytosis Cancelled Microcytosis Cancelled Macrocytosis Cancelled Spherocytes Cancelled Pappenheimer Bodies Cancelled Sickle Cells Cancelled Target Cells Cancelled Tear Drop Cells Cancelled Ovalocytes Cancelled Stomatocytes Cancelled Baker-Mcarthur Bodies Cancelled Echinocytes Cancelled Acanthocytes (Spur) Cancelled Rouleaux Cancelled RBC Agglutinates Cancelled Schistocytes Cancelled Sezary Cell Cancelled PT INR APTT PTT Ratio Sodium Potassium Chloride Carbon Dioxide Anion Gap BUN Creatinine Est Cr Clr Drug Dosing Est GFR ( Amer) Est GFR (Non-Af Amer) BUN/Creatinine Ratio Glucose Osmolality (280-300) mOsm/kg Lactate (0.4-2.0) mmol/L Calcium Magnesium Total Bilirubin AST ALT Alkaline Phosphatase Ammonia (18-72) umol/L Troponin I High Sens (0-20) pg/ml Total Protein Albumin Globulin Albumin/Globulin Ratio TSH (0.300-4.500) uIu/ml Urine Color Urine Appearance (Clear) Urine pH (4.5-7.5) Ur Specific [place] (1.000-1.030) Urine Protein (Negative) Urine Glucose (UA) (Negative) Urine Ketones (Negative) Urine Blood (Negative) Urine Nitrite (Negative) Urine Bilirubin (Negative) Urine Urobilinogen (Negative) Ur Leukocyte Esterase (Negative) Urine WBC (Auto) (0-5) /hpf Urine RBC (Auto) (0-4) /hpf U Hyaline Cast (Auto) (0-5) /lpf U Epithel Cells (Auto) (0-5) /lpf Urine Bacteria (Auto) (Negative) Urine Osmolality (500-800) mOsm/kg SARS-CoV-2 (PCR) (Negative) Influenza Type A (PCR) (Neg) Influenza Type B (PCR) (Neg) RSV (RT-PCR) (Neg) Blood Parasites ID Cancelled Diagnostic Findings Chest X-Ray 07/22/22 19:59 XR chest 1V portable HISTORY: 71 years-old Male trauma acute chest trauma COMPARISON: Chest radiograph 07/19/2022, chest CT 10/16/2019 TECHNIQUE: Portable AP view of the chest FINDINGS: Cardiac silhouette is mildly enlarged. Chronic reticular interstitial coarsening. Atherosclerosis of the thoracic aorta. No pneumothorax, or pleural effusion, overt pulmonary edema or lobar airspace consolidation. Chronic right sided rib deformities. Degenerative changes of the shoulders and spine. IMPRESSION: Chronic findings as above without acute process. Head CT 07/22/22 19:59 CT head/brain wo con CLINICAL HISTORY: 71 years-old Male with confusion, fall last week. Acutely altered mental status TECHNIQUE: Multiple axial CT images of the head were obtained without contrast. A dose lowering technique was utilized adhering to the principles of ALARA. CT DOSE: 537.48 mGy.cm COMPARISON: Head CT 07/19/2022 FINDINGS: No acute intracranial hemorrhage, midline shift, intracranial mass, hydrocephalus, territorial ischemia or abnormal extra-axial collection. Age- related involutional changes. White matter hypodensities suggest chronic microvascular ischemic disease. Left temporoparietal encephalomalacia redemonstrated.. Cerebral vascular calcifications. The calvarium is intact. Prior bilateral lens repair. The paranasal sinuses, mastoid air cells, and middle ear cavities are clear. IMPRESSION: Chronic findings as above without acute intracranial abnormality Resident Activity Tracking Resident Involvement: Resident Care Provided Care Provided: Adult [facility] Medicine
[2022-07-23] MEDS: LACTULOSE SYRUP 20 GM/30 ML UDC PO SCH ×4 (07:54→19:31)
[2022-07-23] MEDS: CHOLECALCIFEROL 1,000 UNITS 25 MCG TAB PO SCH (07:55)
[2022-07-23] MEDS: UMECLIDINIUM/VILANTEROL 62.5/25MCG 7 PUFFS/INHALER INH SCH (07:55)
[2022-07-23] MEDS: levETIRAcetam 500 MG TAB PO SCH ×2 (07:56→19:31)
[2022-07-23] MEDS: rifAXIMin 550 MG TABLET PO SCH ×2 (07:56→19:32)
[2022-07-23] MEDS: PANTOprazole 40 MG TAB PO SCH ×2 (07:56→19:31)
[2022-07-23] MEDS: FUROSEMIDE 40 MG TAB PO SCH ×2 (07:56→16:37)
[2022-07-23] MEDS: MULTIVITAMIN TAB PO SCH (07:57)
[2022-07-23] MEDS: FERROUS SULFATE 325 MG TAB PO SCH ×2 (07:57→20:15)
--- NOTE | 2022-07-23 08:41 | Electrocardiogram Report ---
Test Reason : Blood Pressure : / mmHG Vent. Rate : 079 BPM Atrial Rate : 101 BPM P-R Int : 000 ms QRS Dur : 090 ms QT Int : 390 ms P-R-T Axes : 000 038 049 degrees QTc Int : 447 ms Atrial fibrillation Abnormal ECG When compared with ECG of 19-JUL-2022 15:20, No significant change was found Confirmed by Danny Chavis ([id number]) on 07/23/2022 8:40:35 AM Referred By: REFERRED SELF Confirmed By:Lang Chavis
[2022-07-23 17:23] LABS: Appearance Urine Clear (Clear); Bilirubin Urine Negative (Negative); Blood Urine Negative (Negative); Color Urine Yellow; Glucose Urine UA Negative (Negative); Ketones Urine Negative (Negative); Leukocyte Esterase Urine Negative (Negative); Nitrite Urine Negative (Negative); Protein Urine Negative (Negative); Urobilinogen Urine Negative (Negative)
[2022-07-23 18:15] LABS: Amphetamines+Metham, Urine Neg (Neg); Barbiturates, Urine Neg (Neg); Benzodiazepine, Urine Neg (Neg); Cocaine, Urine Neg (Neg); MDMA (Ecstacy), Urine Neg (Neg); Methadone, Urine Neg (Neg); Opiate, Urine Neg (Neg); Phencyclidine, Urine Neg (Neg)
--- NOTE | 2022-07-24 06:38 | Hospitalist Progress Note ---
Date of Service July 24, 2022 Assessment & Plan (1) Acute alteration in mental status: (2) Acute hepatic encephalopathy: (3) Alcoholic cirrhosis of liver: (4) GERD (gastroesophageal reflux disease): (5) Hypertension: (6) COPD (chronic obstructive pulmonary disease): Plan Mr. Fortune is a 71 y/o M with PMH of intracranial hemorrhage, alcohol induced cirrhosis, atrial fibrillation, insomnia, gout, carotid artery stenosis, COPD, who was admitted to the hospital for altered mental status. Patient has had increased confusion and agitation over the past few days (recently discharged from [facility] 07/20). His presentation is largely unchanged from previous admission, confusion is likely in the setting of hepatic encephalopathy though there may be a component of delirium involved. He is currently clinically stable. #Altered Mental Status: Secondary to Hepatic Encephalopathy/Hyperactive Delirium Patient has a known history of alcoholic cirrhosis. He has previously had bouts of hepatic encephalopathy. It is unclear if he is still consuming alcohol - ordered Tox screen. His AMS is likely 2/2 to hepatic encephalopathy. There may be a component of delirium involved. Avoid sedating meds. Though WBC was WNL since etiology is unclear it is reasonable to order UA with reflex culture to eval for infection that could be contributing to his change in mental status. CT Head and CXR did not show any acute changes. CT Head did show white matter hypodensities suggest chronic microvascular ischemic disease, left temporoparietal encephalomalacia re-demonstrated, and cerebral vascular calcifications. Baseline mentation is unclear. [] Ammonia:156, repeat 46.6, most recent 54.0 [] Lactulose QID [] Continue Rifaximin [] Urine tox - neg, did not screen for ethyl [] UA with culture - neg [] Baseline unclear - confirm with family #Hyponatremia Upon admission Na was 129 (at time of 07/20 discharge 137). Etiology unclear - likely related to cirrhosis. Repeat BMP showed Na 134. Encourage PO intake. Na: 129, down from 137 on 07/20, 134 07/23. Patient was given IVF in the ED but these were d/c as patient was tolerating PO intake. BUN was also elevated. [] AM CMP [] Urine/serum osmolality ordered #Liver Cirrhosis Patient has a known history of alcoholic cirrhosis. PT:12.4, INR:1.2, Alk Phos:127. MELD 18 #Atrial Fibrillation Rate controlled. Patient is not on anticoagulation due to recent intraparenchymal hemorrhage #Hypertension Patient on lisinopril and Lasix at home for hypertension. BP within acceptable range. Continue home meds #Hx of Intracranial Hemorrhage Continue Levetiracetam #Deconditioning PT/OT consult placed. Will need case management consult for possible placement - will discuss dispo with family [] PT/OT [] Case Management #GERD Continue Protonix #COPD Continue home inhaler Diet: Easy to chew DVT PPx: SCDs Dispo: Med/Surg Code Status: DNR/DNI Admission and Anticipated Discharge Date Admission Date: July 23, 2022 Supervising Physician Co-Signing Physician Notes I saw and evaluated patient with resident physician, Dr. Stevenson. I agree with her assessment and plan. Patient has an ongoing decrease in his ammonia levels and his mental status yusuf ears to be about the same as yesterday. He is currently on Keppra and going forward we need to figure out his appropriate disposition status. He came from home but there may be an indication for senior care facility has he will likely require some ongoing management of care for his altered mental status and for activities of daily living. We will reach out to family and case management to help with this. In the meantime keep up with current medication regimen and recheck labs in the morning. As long as he continues to be stable he can be medically cleared for discharge but we need to figure out the appropriate placement plan. Subjective Patient unable to provide history 2/2 mental status. Review of Systems Review of Systems: See above. Physical Exam Constitutional: + altered mental status Eyes: + anicteric sclerae and EOM intact bilaterally ENMT: Mouth: + poor dentition Neck: trachea midline, no thyromegaly Respiratory: normal respiratory effort, lungs clear to auscultation Cardiovascular: Rate/Rhythm: + irregularly irregular Heart Sounds: normal S1 and normal S2 Extremities: no edema Musculoskeletal: Extremities: extremities normal to inspection Skin: no rashes, warm and dry Psychiatric: confused A&Ox0. Unchanged Results & Data Results & Data ([facility]) Vital Signs (Past 12 Hours) Vital Signs Temp Pulse Resp BP Pulse Ox O2 Del Method 07/23/22 22:56 36.7 C 68 18 144/64 H 93 Room Air Laboratory Results 07/24/22 07/24/22 07/24/22 Range/Units 06:32 06:27 06:27 WBC (4.8-10.8) K/ul RBC (4.63-6.08) M/uL Hgb (14.0-18.0) g/dl Hct (40.1-51.0) % MCV (80.0-100.0) fL MCH (25.0-34.0) pg MCHC (32.0-36.0) g/dL RDW Std Deviation (36.4-46.3) fL RDW Coeff of Ramses (11.5-14.5) % Plt Count (130-400) K/uL MPV (9.4-12.4) fL PT 13.2 H (9.0-12.0) Seconds INR 1.3 H (0.9-1.1) APTT 35.3 H (21.0-31.0) Seconds PTT Ratio 1.3 Sodium 134 L (136-145) mmol/L Potassium 3.8 (3.5-5.1) mmol/L Chloride 104 (98-107) mmol/L Carbon Dioxide 23 (21-32) mmol/L Anion Gap 7 (3-11) BUN 22 (6-23) mg/dl Creatinine 0.95 (0.6-1.4) mg/dl Est Cr Clr Drug Dosing 70.4 ml/min Est GFR ( Amer) 93.6 ml/min Est GFR (Non-Af Amer) 80.8 ml/min BUN/Creatinine Ratio 23.2 H (10-20) Glucose 97 (70-99(Fasting)) mg/dl Calcium 8.3 L (8.5-10.1) mg/dl Total Bilirubin 3.1 H (0.2-1.0) mg/dl AST 34 (13-39) U/L ALT 18 (7-52) U/L Alkaline Phosphatase 122 H (34-104) U/L Ammonia 54.0 (18-72) umol/L Total Protein 5.9 L (6.0-8.3) gm/dl Albumin 3.0 L (3.4-5.0) gm/dl Globulin 2.9 (2.5-4.0) gm/dl Albumin/Globulin Ratio 1.0 (0.9-2) Urine Color Urine Appearance (Clear) Urine pH (4.5-7.5) Ur Specific [place] (1.000-1.030) Urine Protein (Negative) Urine Glucose (UA) (Negative) Urine Ketones (Negative) Urine Blood (Negative) Urine Nitrite (Negative) Urine Bilirubin (Negative) Urine Urobilinogen (Negative) Ur Leukocyte Esterase (Negative) Urine Opiates Screen (Neg) Ur Methadone, Qual (Neg) Urine Barbiturates (Neg) Ur Phencyclidine (PCP) (Neg) U Amphetamin/Meth Scrn (Neg) MDMA (Ecstasy) Screen (Neg) U Benzodiazepines Scrn (Neg) Ur Cocaine Metabolite (Neg) U Marijuana (THC) Screen (Neg) 07/24/22 07/23/22 07/23/22 Range/Units 06:27 15:52 15:52 WBC 6.38 (4.8-10.8) K/ul RBC 3.64 L (4.63-6.08) M/uL Hgb 13.2 L (14.0-18.0) g/dl Hct 36.4 L (40.1-51.0) % MCV 100.0 (80.0-100.0) fL MCH 36.3 H (25.0-34.0) pg MCHC 36.3 H (32.0-36.0) g/dL RDW Std Deviation 48.0 H (36.4-46.3) fL RDW Coeff of Ramses 13.1 (11.5-14.5) % Plt Count 120 L (130-400) K/uL MPV 10.2 (9.4-12.4) fL PT (9.0-12.0) Seconds INR (0.9-1.1) APTT (21.0-31.0) Seconds PTT Ratio Sodium (136-145) mmol/L Potassium (3.5-5.1) mmol/L Chloride (98-107) mmol/L Carbon Dioxide (21-32) mmol/L Anion Gap (3-11) BUN (6-23) mg/dl Creatinine (0.6-1.4) mg/dl Est Cr Clr Drug Dosing ml/min Est GFR ( Amer) ml/min Est GFR (Non-Af Amer) ml/min BUN/Creatinine Ratio (10-20) Glucose (70-99(Fasting)) mg/dl Calcium (8.5-10.1) mg/dl Total Bilirubin (0.2-1.0) mg/dl AST (13-39) U/L ALT (7-52) U/L Alkaline Phosphatase (34-104) U/L Ammonia (18-72) umol/L Total Protein (6.0-8.3) gm/dl Albumin (3.4-5.0) gm/dl Globulin (2.5-4.0) gm/dl Albumin/Globulin Ratio (0.9-2) Urine Color Yellow Urine Appearance Clear (Clear) Urine pH 5.0 (4.5-7.5) Ur Specific [place] 1.010 (1.000-1.030) Urine Protein Negative (Negative) Urine Glucose (UA) Negative (Negative) Urine Ketones Negative (Negative) Urine Blood Negative (Negative) Urine Nitrite Negative (Negative) Urine Bilirubin Negative (Negative) Urine Urobilinogen Negative (Negative) Ur Leukocyte Esterase Negative (Negative) Urine Opiates Screen Neg (Neg) Ur Methadone, Qual Neg (Neg) Urine Barbiturates Neg (Neg) Ur Phencyclidine (PCP) Neg (Neg) U Amphetamin/Meth Scrn Neg (Neg) MDMA (Ecstasy) Screen Neg (Neg) U Benzodiazepines Scrn Neg (Neg) Ur Cocaine Metabolite Neg (Neg) U Marijuana (THC) Screen Neg (Neg) Diagnostic Findings No new imaging Resident Activity Tracking Resident Involvement: Resident Care Provided Care Provided: Adult [facility] Medicine
[2022-07-24 07:14] LABS: BUN Creatinine Ratio 23.2 (10-20); Bilirubin,Total 3.1 mg/dl (0.2-1.0); Calcium 8.3 mg/dl (8.5-10.1); Creatinine Clr Calc Pharmacy 70.4 ml/min; Est GFR (African American) 93.6 ml/min; Est GFR (Non-African American) 80.8 ml/min; Globulin 2.9 gm/dl (2.5-4.0); Potassium 3.8 mmol/L (3.5-5.1); Total Protein 5.9 gm/dl (6.0-8.3)
[2022-07-24 07:17] LABS: Hematocrit (blood only) 36.4 % (40.1-51.0); Hemoglobin 13.2 g/dl (14.0-18.0); Mean Corpuscular Hemoglobin 36.3 pg (25.0-34.0); Mean Corpuscular Hgb Conc 36.3 g/dL (32.0-36.0); Mean Platelet Volume 10.2 fL (9.4-12.4); Platelet Count 120 K/uL (130-400); RDW Coefficient of Variation 13.1 % (11.5-14.5); Red Blood Count 3.64 M/uL (4.63-6.08); White Blood Count 6.38 K/ul (4.8-10.8)
[2022-07-24 07:23] LABS: INR 1.3 (0.9-1.1); Partial Thromboplastin Ratio 1.3; Partial Thromboplastin Time 35.3 Seconds (21.0-31.0); Prothrombin Time 13.2 Seconds (9.0-12.0)
[2022-07-24] MEDS: CHOLECALCIFEROL 1,000 UNITS 25 MCG TAB PO SCH (07:55)
[2022-07-24] MEDS: PANTOprazole 40 MG TAB PO SCH ×2 (07:55→20:34)
[2022-07-24] MEDS: FERROUS SULFATE 325 MG TAB PO SCH ×2 (07:55→20:35)
[2022-07-24] MEDS: levETIRAcetam 500 MG TAB PO SCH ×2 (07:55→20:34)
[2022-07-24] MEDS: UMECLIDINIUM/VILANTEROL 62.5/25MCG 7 PUFFS/INHALER INH SCH (07:56)
[2022-07-24] MEDS: rifAXIMin 550 MG TABLET PO SCH ×2 (07:56→20:34)
[2022-07-24] MEDS: MULTIVITAMIN TAB PO SCH (07:56)
[2022-07-24] MEDS: LACTULOSE SYRUP 20 GM/30 ML UDC PO SCH ×4 (07:56→20:36)
[2022-07-24] MEDS: FUROSEMIDE 40 MG TAB PO SCH ×2 (07:56→17:04)
[2022-07-24 09:17] LABS: Platelet Estimate Decreased (Normal)
[2022-07-24] MEDS ORDERED: INFLUENZA VACCINE HIGH DOSE PF 65+ 0.7 ML SYR IM ONE (14:31)
[2022-07-24] MEDS ORDERED: PNEUMOCOCCAL POLYSACCHARIDES 25 MCG/0.5 ML VIAL/SYR IM ONE (14:31)
--- NOTE | 2022-07-25 06:56 | Hospitalist Progress Note ---
Date of Service July 25, 2022 Assessment & Plan (1) Acute alteration in mental status: (2) Acute hepatic encephalopathy: (3) Alcoholic cirrhosis of liver: (4) GERD (gastroesophageal reflux disease): (5) Hypertension: (6) COPD (chronic obstructive pulmonary disease): Plan Mr. Fortune is a 71 y/o M with PMH of intracranial hemorrhage, alcohol induced cirrhosis, atrial fibrillation, insomnia, gout, carotid artery stenosis, COPD, who was admitted to the hospital for altered mental status. Patient has had increased confusion and agitation over the past few days (recently discharged from [facility] 07/20). His presentation is largely unchanged from previous admission, confusion is likely in the setting of hepatic encephalopathy though there may be a component of delirium involved. He is currently clinically stable. #Altered Mental Status: Secondary to Hepatic Encephalopathy/Hyperactive Delirium Patient has a known history of alcoholic cirrhosis. He has previously had bouts of hepatic encephalopathy. It is unclear if he is still consuming alcohol - ordered Tox screen. His AMS is likely 2/2 to hepatic encephalopathy. There may be a component of delirium involved. Avoid sedating meds. Though WBC was WNL since etiology is unclear it is reasonable to order UA with reflex culture to eval for infection that could be contributing to his change in mental status. CT Head and CXR did not show any acute changes. CT Head did show white matter hypodensities suggest chronic microvascular ischemic disease, left temporoparietal encephalomalacia re-demonstrated, and cerebral vascular calcifications. Utox negative. UA negative. Baseline mentation is unclear. Had a discussion with the daughter 07/24 regarding baseline mental status and dispo planning. He does struggle with word finding at baseline, but is generally much more able to communicate and oriented to self and place. He is also able to do more things for himself at baseline such as dressing himself. The daughter also expresses that an interim SNF might be useful as she and her daughter will not be able to provide 24/7 care. If he returns to baseline then she would feel comfortable taking him home. They are looking into getting home help, but this may take some time. Unclear how much more improvement in mental status will be attainable. Will continue to monitor and discuss placement. CM following - they are in contact with the daughter as well. Patient's mental status is slightly improved at this time. Ammonia is 92 07/25. Asked nursing to document stools. Goal 2-3 soft, formed stools daily to help lower ammonia levels. [] Ammonia:156 --> 46.6 --> 54.0 --> 92 [] Lactulose QID - communication order sent to nursing to document stools [] Continue Rifaximin [] Baseline unclear - confirmed with family, patient much more oriented, communicative, and independent at baseline. #Hyponatremia Upon admission Na was 129 (at time of 07/20 discharge 137). Etiology unclear - likely related to cirrhosis. Repeat BMP showed Na 134. Encourage PO intake. Na: 129, down from 137 on 07/20, 134 07/23. Patient was given IVF in the ED but these were d/c as patient was tolerating PO intake. BUN was also elevated at that time. [] AM CMP [] Urine/serum osmolality ordered #Liver Cirrhosis Patient has a known history of alcoholic cirrhosis. MELD 18 #Atrial Fibrillation Rate controlled. Patient is not on anticoagulation due to recent intraparenchymal hemorrhage #Hypertension Patient on lisinopril and Lasix at home for hypertension. BP within acceptable range. Continue home meds #Hx of Intracranial Hemorrhage Continue Levetiracetam #Deconditioning PT/OT consult placed. Will need case management consult for possible placement - will discuss dispo with family - see above. [] PT/OT [] Case Management #GERD Continue Protonix #COPD Continue home inhaler Diet: Easy to chew DVT PPx: SCDs Dispo: Med/Surg Code Status: DNR/DNI Admission and Anticipated Discharge Date Admission Date: July 23, 2022 Supervising Physician Co-Signing Physician Notes I saw and evaluated patient with resident physician, Dr. Stevenson. I agree with her assessment and plan. Patient has a slight increase in his ammonia level so we will provide another dose of lactulose this afternoon to help with him having a bowel movement given that he has not had a bowel movement in the last 24 hours. His mental status is slightly improved today with more improvement in orientation. We are awaiting placement and his family is open to him being in a penitentiary facility for a temporary period of time before potentially returning home.. Subjective Patient unable to provide history 2/2 mental status. Does seem slightly improved today. Review of Systems Review of Systems: See above. Physical Exam Constitutional: + altered mental status Eyes: + anicteric sclerae and EOM intact bilaterally ENMT: Mouth: + poor dentition Neck: trachea midline, no thyromegaly Respiratory: normal respiratory effort, lungs clear to auscultation Cardiovascular: Rate/Rhythm: + irregularly irregular Heart Sounds: normal S1 and normal S2 Extremities: no edema Gastrointestinal (Abdomen): Inspection/Auscultation: normal bowel sounds Percussion/Palpation: abdomen soft; abdomen nontender Musculoskeletal: Extremities: extremities normal to inspection Skin: no rashes, warm and dry Psychiatric: still confused with expressive aphasia - improved from prior oriented to self. Results & Data Results & Data ([facility]) Vital Signs (Past 12 Hours) Vital Signs Temp Pulse Resp BP Pulse Ox O2 Del Method 07/24/22 22:55 36.7 C 82 18 100/53 L 93 Room Air Laboratory Results 07/25/22 07/25/22 07/25/22 Range/Units 07:14 07:14 07:14 WBC (4.8-10.8) K/ul RBC (4.63-6.08) M/uL Hgb (14.0-18.0) g/dl Hct (40.1-51.0) % MCV (80.0-100.0) fL MCH (25.0-34.0) pg MCHC (32.0-36.0) g/dL RDW Std Deviation (36.4-46.3) fL RDW Coeff of Ramses (11.5-14.5) % Plt Count (130-400) K/uL MPV (9.4-12.4) fL PT 13.0 H (9.0-12.0) Seconds INR 1.2 H (0.9-1.1) APTT 34.9 H (21.0-31.0) Seconds PTT Ratio 1.3 Sodium 134 L (136-145) mmol/L Potassium 3.7 (3.5-5.1) mmol/L Chloride 101 (98-107) mmol/L Carbon Dioxide 26 (21-32) mmol/L Anion Gap 7 (3-11) BUN 20 (6-23) mg/dl Creatinine 0.97 (0.6-1.4) mg/dl Est Cr Clr Drug Dosing 69.0 ml/min Est GFR ( Amer) 91.3 ml/min Est GFR (Non-Af Amer) 78.8 ml/min BUN/Creatinine Ratio 20.6 H (10-20) Glucose 105 H (70-99(Fasting)) mg/dl Calcium 8.4 L (8.5-10.1) mg/dl Total Bilirubin 2.9 H (0.2-1.0) mg/dl Ammonia 92.0 H (18-72) umol/L 07/25/22 Range/Units 07:14 WBC 6.98 (4.8-10.8) K/ul RBC 3.73 L (4.63-6.08) M/uL Hgb 13.5 L (14.0-18.0) g/dl Hct 36.6 L (40.1-51.0) % MCV 98.1 (80.0-100.0) fL MCH 36.2 H (25.0-34.0) pg MCHC 36.9 H (32.0-36.0) g/dL RDW Std Deviation 46.6 H (36.4-46.3) fL RDW Coeff of Ramses 13.0 (11.5-14.5) % Plt Count 145 (130-400) K/uL MPV 10.0 (9.4-12.4) fL PT (9.0-12.0) Seconds INR (0.9-1.1) APTT (21.0-31.0) Seconds PTT Ratio Sodium (136-145) mmol/L Potassium (3.5-5.1) mmol/L Chloride (98-107) mmol/L Carbon Dioxide (21-32) mmol/L Anion Gap (3-11) BUN (6-23) mg/dl Creatinine (0.6-1.4) mg/dl Est Cr Clr Drug Dosing ml/min Est GFR ( Amer) ml/min Est GFR (Non-Af Amer) ml/min BUN/Creatinine Ratio (10-20) Glucose (70-99(Fasting)) mg/dl Calcium (8.5-10.1) mg/dl Total Bilirubin (0.2-1.0) mg/dl Ammonia (18-72) umol/L Diagnostic Findings No new imaging Resident Activity Tracking Resident Involvement: Resident Care Provided Care Provided: [facility]
[2022-07-25 07:32] LABS: Hematocrit (blood only) 36.6 % (40.1-51.0); Hemoglobin 13.5 g/dl (14.0-18.0); Mean Corpuscular Hemoglobin 36.2 pg (25.0-34.0); Mean Corpuscular Hgb Conc 36.9 g/dL (32.0-36.0); Mean Corpuscular Volume 98.1 fL (80.0-100.0); Platelet Count 145 K/uL (130-400); RDW Standard Deviation 46.6 fL (36.4-46.3); Red Blood Count 3.73 M/uL (4.63-6.08); White Blood Count 6.98 K/ul (4.8-10.8)
[2022-07-25] MEDS: LACTULOSE SYRUP 20 GM/30 ML UDC PO SCH ×4 (07:45→20:15)
[2022-07-25] MEDS: CHOLECALCIFEROL 1,000 UNITS 25 MCG TAB PO SCH (07:46)
[2022-07-25] MEDS: levETIRAcetam 500 MG TAB PO SCH ×2 (07:46→20:16)
[2022-07-25] MEDS: FERROUS SULFATE 325 MG TAB PO SCH ×2 (07:46→20:15)
[2022-07-25] MEDS: PANTOprazole 40 MG TAB PO SCH ×2 (07:46→20:16)
[2022-07-25] MEDS: rifAXIMin 550 MG TABLET PO SCH ×2 (07:46→20:16)
[2022-07-25] MEDS: UMECLIDINIUM/VILANTEROL 62.5/25MCG 7 PUFFS/INHALER INH SCH (07:47)
[2022-07-25] MEDS: MULTIVITAMIN TAB PO SCH (07:47)
[2022-07-25] MEDS: FUROSEMIDE 40 MG TAB PO SCH ×2 (07:47→15:50)
[2022-07-25 07:55] LABS: BUN Creatinine Ratio 20.6 (10-20); Bilirubin,Total 2.9 mg/dl (0.2-1.0); Calcium 8.4 mg/dl (8.5-10.1); Est GFR (African American) 91.3 ml/min; Est GFR (Non-African American) 78.8 ml/min; Potassium 3.7 mmol/L (3.5-5.1)
[2022-07-25 08:03] LABS: INR 1.2 (0.9-1.1); Partial Thromboplastin Ratio 1.3; Partial Thromboplastin Time 34.9 Seconds (21.0-31.0)
[2022-07-25] MEDS: MELATONIN 3 MG TAB PO PRN (20:16)
--- NOTE | 2022-07-26 07:15 | Hospitalist Progress Note ---
Date of Service July 26, 2022 Assessment & Plan (1) Acute alteration in mental status: (2) Acute hepatic encephalopathy: (3) Alcoholic cirrhosis of liver: (4) GERD (gastroesophageal reflux disease): (5) Hypertension: (6) COPD (chronic obstructive pulmonary disease): Plan Mr. Fortune is a 71 y/o M with PMH of intracranial hemorrhage, alcohol induced cirrhosis, atrial fibrillation, insomnia, gout, carotid artery stenosis, COPD, who was admitted to the hospital for altered mental status. Patient has had increased confusion and agitation over the past few days (recently discharged from [facility] 07/20). His presentation is largely unchanged from previous admission, confusion is likely in the setting of hepatic encephalopathy though there may be a component of delirium involved. He is currently clinically stable. #Altered Mental Status: Secondary to Hepatic Encephalopathy/Hyperactive Delirium Patient has a known history of alcoholic cirrhosis with previous instances of HE. Currently altered - ammonia on admit 156. CT Head and CXR - no acute juan ges. CT Head did show white matter hypodensities suggest chronic microvascular ischemic disease, left temporoparietal encephalomalacia re-demonstrated, and cerebral vascular calcifications. Utox negative. UA negative. Baseline mentation - struggles with word finding but is able to communicate more fully, is more oriented, and can perform some of his daily activities of living independently. Waiting for daughter to decide if she wants him to d/c home or to a skilled facility with 12/05 care - discussed 07/26. CM following. [] Lactulose QID - goal 2-3 soft formed stools a day [] Continue Rifaximin #Hyponatremia Upon admission Na was 129 (at time of 07/20 discharge 137). Etiology unclear - likely related to cirrhosis. Continue to monitor [] AM CMP #Liver Cirrhosis Patient has a known history of alcoholic cirrhosis. MELD 18 #Atrial Fibrillation Rate controlled. Patient is not on anticoagulation due to recent in traparenchymal hemorrhage #Hypertension Patient on lisinopril and Lasix at home for hypertension. BP within acceptable range. Continue home meds #Hx of Intracranial Hemorrhage Continue Levetiracetam #Deconditioning PT/OT consult placed. Will need case management consult for possible placement - will discuss dispo with family - see above. [] PT/OT [] Case Management #GERD Continue Protonix #COPD Continue home inhaler Diet: Easy to chew DVT PPx: SCDs Dispo: Med/Surg Code Status: DNR/DNI Last Updated Family: 07/26 Admission and Anticipated Discharge Date Admission Date: July 23, 2022 Supervising Physician Co-Signing Physician Notes Attending attestation Pt seen and examined in concert with Dr. Stevenson. In agreement with the documented findings as noted in the resident documentation with any exceptions or additions as noted here. Resting in bed denies any significant discomfort at present though otherwise history unobtainable 2/2 patient cognitive status. Delirium likely secondary to hepatic encephalopathy - continue rifaximin and to titrate lactulose to 2-3 BM per day and monitor cognitive status closely. Deconditioning - PT/OT - pending placement Else see resident documentation as noted. Subjective Patient unable to provide history 2/2 mental status. Review of Systems Review of Systems: See above. Physical Exam Constitutional: + altered mental status Eyes: + anicteric sclerae and EOM intact bilaterally ENMT: Mouth: + poor dentition Neck: trachea midline, no thyromegaly Respiratory: normal respiratory effort, lungs clear to auscultation Cardiovascular: Rate/Rhythm: + irregularly irregular Heart Sounds: normal S1 and normal S2 Extremities: no edema Musculoskeletal: Extremities: extremities normal to inspection Skin: no rashes, warm and dry Results & Data Results & Data ([facility]) Vital Signs (Past 12 Hours) Vital Signs Temp Pulse Resp BP Pulse Ox O2 Del Method 07/25/22 23:00 36.5 C 59 L 18 115/66 95 Room Air Laboratory Results 07/26/22 07/26/22 07/26/22 Range/Units 07:16 07:16 07:16 WBC 7.37 (4.8-10.8) K/ul RBC 3.38 L (4.63-6.08) M/uL Hgb 12.2 L (14.0-18.0) g/dl Hct 32.9 L (40.1-51.0) % MCV 97.3 (80.0-100.0) fL MCH 36.1 H (25.0-34.0) pg MCHC 37.1 H (32.0-36.0) g/dL RDW Std Deviation 46.1 (36.4-46.3) fL RDW Coeff of Ramses 12.9 (11.5-14.5) % Plt Count 137 (130-400) K/uL MPV 10.4 (9.4-12.4) fL Sodium 133 L (136-145) mmol/L Potassium 3.6 (3.5-5.1) mmol/L Chloride 101 (98-107) mmol/L Carbon Dioxide 25 (21-32) mmol/L Anion Gap 7 (3-11) BUN 18 (6-23) mg/dl Creatinine 0.94 (0.6-1.4) mg/dl Est Cr Clr Drug Dosing 71.2 ml/min Est GFR ( Amer) 94.8 ml/min Est GFR (Non-Af Amer) 81.8 ml/min BUN/Creatinine Ratio 19.1 (10-20) Glucose 109 H (70-99(Fasting)) mg/dl Calcium 8.2 L (8.5-10.1) mg/dl Total Bilirubin 2.5 H (0.2-1.0) mg/dl AST 34 (13-39) U/L ALT 19 (7-52) U/L Alkaline Phosphatase 127 H (34-104) U/L Ammonia 104.0 H (18-72) umol/L Total Protein 5.7 L (6.0-8.3) gm/dl Albumin 2.9 L (3.4-5.0) gm/dl Globulin 2.8 (2.5-4.0) gm/dl Albumin/Globulin Ratio 1.0 (0.9-2) Resident Activity Tracking Resident Involvement: Resident Care Provided Care Provided: Adult [facility]
[2022-07-26 07:34] LABS: Hematocrit (blood only) 32.9 % (40.1-51.0); Hemoglobin 12.2 g/dl (14.0-18.0); Mean Corpuscular Hemoglobin 36.1 pg (25.0-34.0); Mean Corpuscular Hgb Conc 37.1 g/dL (32.0-36.0); Mean Corpuscular Volume 97.3 fL (80.0-100.0); Mean Platelet Volume 10.4 fL (9.4-12.4); Platelet Count 137 K/uL (130-400); RDW Coefficient of Variation 12.9 % (11.5-14.5); RDW Standard Deviation 46.1 fL (36.4-46.3); Red Blood Count 3.38 M/uL (4.63-6.08); White Blood Count 7.37 K/ul (4.8-10.8)
[2022-07-26 07:50] LABS: Albumin Level 2.9 gm/dl (3.4-5.0); BUN Creatinine Ratio 19.1 (10-20); Bilirubin,Total 2.5 mg/dl (0.2-1.0); Calcium 8.2 mg/dl (8.5-10.1); Creatinine Clr Calc Pharmacy 71.2 ml/min; Est GFR (African American) 94.8 ml/min; Est GFR (Non-African American) 81.8 ml/min; Globulin 2.8 gm/dl (2.5-4.0); Potassium 3.6 mmol/L (3.5-5.1); Total Protein 5.7 gm/dl (6.0-8.3)
[2022-07-26] MEDS: PANTOprazole 40 MG TAB PO SCH ×2 (08:15→20:38)
[2022-07-26] MEDS: UMECLIDINIUM/VILANTEROL 62.5/25MCG 7 PUFFS/INHALER INH SCH (08:15)
[2022-07-26] MEDS: LACTULOSE SYRUP 20 GM/30 ML UDC PO SCH ×4 (08:15→20:38)
[2022-07-26] MEDS: CHOLECALCIFEROL 1,000 UNITS 25 MCG TAB PO SCH (08:15)
[2022-07-26] MEDS: FERROUS SULFATE 325 MG TAB PO SCH ×2 (08:16→20:38)
[2022-07-26] MEDS: FUROSEMIDE 40 MG TAB PO SCH ×2 (08:16→16:40)
[2022-07-26] MEDS: rifAXIMin 550 MG TABLET PO SCH ×2 (08:16→20:38)
[2022-07-26] MEDS: levETIRAcetam 500 MG TAB PO SCH ×2 (08:16→20:38)
[2022-07-26] MEDS: MULTIVITAMIN TAB PO SCH (08:16)
--- NOTE | 2022-07-27 06:59 | Hospitalist Progress Note ---
Date of Service July 27, 2022 Assessment & Plan (1) Acute alteration in mental status: (2) Acute hepatic encephalopathy: (3) Alcoholic cirrhosis of liver: (4) GERD (gastroesophageal reflux disease): (5) Hypertension: (6) COPD (chronic obstructive pulmonary disease): Plan Mr. Fortune is a 71 y/o M with PMH of intracranial hemorrhage, alcohol induced cirrhosis, atrial fibrillation, insomnia, gout, carotid artery stenosis, COPD, who was admitted to the hospital for altered mental status. Patient has had increased confusion and agitation over the past few days (recently discharged from [facility] 07/20). His presentation is largely unchanged from previous admission, confusion is likely in the setting of hepatic encephalopathy though there may be a component of delirium involved. He is currently clinically stable. #Altered Mental Status: Secondary to Hepatic Encephalopathy/Hyperactive Delirium Patient has a known history of alcoholic cirrhosis with previous instances of HE. Currently altered - ammonia on admit 156. CT Head and CXR - no acute juan ges. CT Head did show white matter hypodensities suggest chronic microvascular ischemic disease, left temporoparietal encephalomalacia re-demonstrated, and cerebral vascular calcifications. Utox negative. UA negative. Baseline mentation - struggles with word finding but is able to communicate more fully, is more oriented, and can perform some of his daily activities of living independently. Waiting for daughter to decide if she wants him to d/c home or to a skilled facility with 12/05 care - discussed 07/26. CM following. [] Lactulose QID - goal 2-3 soft formed stools a day [] Continue Rifaximin #Hyponatremia Upon admission Na was 129 (at time of 07/20 discharge 137). Etiology unclear - likely related to cirrhosis. Continue to monitor [] AM CMP #Liver Cirrhosis Patient has a known history of alcoholic cirrhosis. MELD 18 #Atrial Fibrillation Rate controlled. Patient is not on anticoagulation due to recent in traparenchymal hemorrhage #Hypertension Patient on lisinopril and Lasix at home for hypertension. BP within acceptable range. Continue home meds #Hx of Intracranial Hemorrhage Continue Levetiracetam #Deconditioning PT/OT consult placed. Will need case management consult for possible placement - will discuss dispo with family - see above. [] PT/OT [] Case Management #GERD Continue Protonix #COPD Continue home inhaler Diet: Easy to chew DVT PPx: SCDs Dispo: Med/Surg Code Status: DNR/DNI Last Updated Family: 07/26 Admission and Anticipated Discharge Date Admission Date: July 23, 2022 Subjective Patient unable to provide history 2/2 mental status. Review of Systems Review of Systems: See above. Physical Exam Constitutional: + altered mental status Eyes: + anicteric sclerae and EOM intact bilaterally ENMT: Mouth: + poor dentition Respiratory: normal respiratory effort, lungs clear to auscultation Cardiovascular: Rate/Rhythm: + irregularly irregular Heart Sounds: normal S1 and normal S2 Extremities: no edema Gastrointestinal (Abdomen): Percussion/Palpation: abdomen soft Musculoskeletal: Extremities: extremities normal to inspection Skin: no rashes, warm and dry Results & Data Results & Data ([facility]) Vital Signs (Past 12 Hours) Vital Signs Temp Pulse Resp BP Pulse Ox O2 Del Method 07/26/22 23:02 36.9 C 98 H 18 120/65 96 Room Air Laboratory Results 07/27/22 Range/Units 06:29 Sodium 135 L (136-145) mmol/L Potassium 3.7 (3.5-5.1) mmol/L Chloride 100 (98-107) mmol/L Carbon Dioxide 27 (21-32) mmol/L Anion Gap 8 (3-11) BUN 18 (6-23) mg/dl Creatinine 0.88 (0.6-1.4) mg/dl Est Cr Clr Drug Dosing 76.0 ml/min Est GFR ( Amer) 100.9 ml/min Est GFR (Non-Af Amer) 87.0 ml/min BUN/Creatinine Ratio 20.5 H (10-20) Glucose 100 H (70-99(Fasting)) mg/dl Calcium 8.3 L (8.5-10.1) mg/dl Total Bilirubin 3.1 H (0.2-1.0) mg/dl AST 38 (13-39) U/L ALT 20 (7-52) U/L Alkaline Phosphatase 131 H (34-104) U/L Total Protein 6.1 (6.0-8.3) gm/dl Albumin 3.1 L (3.4-5.0) gm/dl Globulin 3.0 (2.5-4.0) gm/dl Albumin/Globulin Ratio 1.0 (0.9-2) Diagnostic Findings No new imaging
[2022-07-27 07:39] LABS: Albumin Level 3.1 gm/dl (3.4-5.0); BUN Creatinine Ratio 20.5 (10-20); Bilirubin,Total 3.1 mg/dl (0.2-1.0); Calcium 8.3 mg/dl (8.5-10.1); Est GFR (African American) 100.9 ml/min; Potassium 3.7 mmol/L (3.5-5.1); Total Protein 6.1 gm/dl (6.0-8.3)
[2022-07-27] MEDS: LACTULOSE SYRUP 20 GM/30 ML UDC PO SCH (09:19)
[2022-07-27] MEDS: levETIRAcetam 500 MG TAB PO SCH ×2 (09:19→20:42)
[2022-07-27] MEDS: rifAXIMin 550 MG TABLET PO SCH ×2 (09:19→20:42)
[2022-07-27] MEDS: FERROUS SULFATE 325 MG TAB PO SCH ×2 (09:19→20:42)
[2022-07-27] MEDS: PANTOprazole 40 MG TAB PO SCH ×2 (09:19→20:41)
[2022-07-27] MEDS: MULTIVITAMIN TAB PO SCH (09:20)
[2022-07-27] MEDS: UMECLIDINIUM/VILANTEROL 62.5/25MCG 7 PUFFS/INHALER INH SCH (09:20)
[2022-07-27] MEDS: CHOLECALCIFEROL 1,000 UNITS 25 MCG TAB PO SCH (09:20)
[2022-07-27] MEDS: FUROSEMIDE 40 MG TAB PO SCH ×2 (09:20→18:14)
--- NOTE | 2022-07-27 15:46 | Discharge Summary ---
Date of Service July 27, 2022 Admission HPI Per Admitting Provider Nicolás Fortune is a 71 y/o male who presented to the ED with his daughter and granddaughter for increased confusion. His PMH includes intracranial hemorrhage, alcohol induced cirrhosis, atrial fibrillation, insomnia, gout, carotid artery stenosis, COPD. His daughter, Ankita, is at bedside providing history. The patient lives with his granddaughter who takes care of him. Mr. Fortune was recently discharged from [facility] on 07/20/22 for altered mental status secondary to hepatic encephalopathy. His daughter notes that in the past week prior to his recent admission, he had increased agitation and a shift in his personality- notes he recently had to put his dog down and feels he has been depressed. She notes that on the day of his recent discharge he was slightly "improved," however since then he has been very talkative/agitated/frustrated. His daughter states they are exhausted and concerned for his safety so they brought him back to the hospital today. She states he has not complained of any pain, trouble breathing, or changes in bladder function- notes he is occasionally incontinent of bowel at baseline. He has been eating and drinking without issue. She states he is supervised with his medication administration and he has not missed any doses. Admission Exam Per Admitting Provider Nicolás Fortune is a 71 y/o male who presented to the ED with his daughter and granddaughter for increased confusion. His PMH includes intracranial hemorrhage, alcohol induced cirrhosis, atrial fibrillation, insomnia, gout, carotid artery stenosis, COPD. His daughter, Ankita, is at bedside providing history. The patient lives with his granddaughter who takes care of him. Mr. Fortune was recently discharged from [facility] on 07/20/22 for altered mental status secondary to hepatic encephalopathy. His daughter notes that in the past week prior to his recent admission, he had increased agitation and a shift in his personality- notes he recently had to put his dog down and feels he has been depressed. She notes that on the day of his recent discharge he was slightly "improved," however since then he has been very talkative/agitated/frustrated. His daughter states they are exhausted and concerned for his safety so they brought him back to the hospital today. She states he has not complained of any pain, trouble breathing, or changes in bladder function- notes he is occasionally incontinent of bowel at baseline. He has been eating and drinking without issue. She states he is supervised with his medication administration and he has not missed any doses. Principal Diagnosis Hepatic Encephalopathy Discharge Exam Constitutional + altered mental status Eyes + anicteric sclerae and EOM intact bilaterally ENMT Mouth: + poor dentition Respiratory normal respiratory effort, lungs clear to auscultation Cardiovascular Rate/Rhythm: + irregularly irregular Heart Sounds: normal S1 and normal S2 Extremities: no edema Gastrointestinal (Abdomen) Percussion/Palpation: abdomen soft Musculoskeletal Extremities: extremities normal to inspection Skin no rashes, warm and dry Discharge Data Allergies Allergy/AdvReac Type Severity Reaction Status Date / Time terazosin Allergy Severe PRIAPISM- Verified 05/13/22 18:43 ON [facility] spironolactone Allergy Unknown ON Verified 05/13/22 18:43 [facility]. trazodone AdvReac Unknown Unknown Verified 05/13/22 18:43 Consultations 07/22/22 21:25 ED Decision to Admit Stat Ordered Studies Chest X-Ray 07/22/22 19:59 XR chest 1V portable HISTORY: 71 years-old Male trauma acute chest trauma COMPARISON: Chest radiograph 07/19/2022, chest CT 10/16/2019 TECHNIQUE: Portable AP view of the chest FINDINGS: Cardiac silhouette is mildly enlarged. Chronic reticular interstitial coarsening. Atherosclerosis of the thoracic aorta. No pneumothorax, or pleural effusion, overt pulmonary edema or lobar airspace consolidation. Chronic right sided rib deformities. Degenerative changes of the shoulders and spine. IMPRESSION: Chronic findings as above without acute process. Head CT 07/22/22 19:59 CT head/brain wo con CLINICAL HISTORY: 71 years-old Male with confusion, fall last week. Acutely altered mental status TECHNIQUE: Multiple axial CT images of the head were obtained without contrast. A dose lowering technique was utilized adhering to the principles of ALARA. CT DOSE: 537.48 mGy.cm COMPARISON: Head CT 07/19/2022 FINDINGS: No acute intracranial hemorrhage, midline shift, intracranial mass, hydrocephalus, territorial ischemia or abnormal extra-axial collection. Age- related involutional changes. White matter hypodensities suggest chronic microvascular ischemic disease. Left temporoparietal encephalomalacia redemonstrated.. Cerebral vascular calcifications. The calvarium is intact. Prior bilateral lens repair. The paranasal sinuses, mastoid air cells, and middle ear cavities are clear. IMPRESSION: Chronic findings as above without acute intracranial abnormality. 07/27/22 Range/Units 06:29 Sodium 135 L (136-145) mmol/L Potassium 3.7 (3.5-5.1) mmol/L Chloride 100 (98-107) mmol/L Carbon Dioxide 27 (21-32) mmol/L Anion Gap 8 (3-11) BUN 18 (6-23) mg/dl Creatinine 0.88 (0.6-1.4) mg/dl Est Cr Clr Drug Dosing 76.0 ml/min Est GFR ( Amer) 100.9 ml/min Est GFR (Non-Af Amer) 87.0 ml/min BUN/Creatinine Ratio 20.5 H (10-20) Glucose 100 H (70-99(Fasting)) mg/dl Calcium 8.3 L (8.5-10.1) mg/dl Total Bilirubin 3.1 H (0.2-1.0) mg/dl AST 38 (13-39) U/L ALT 20 (7-52) U/L Alkaline Phosphatase 131 H (34-104) U/L Total Protein 6.1 (6.0-8.3) gm/dl Albumin 3.1 L (3.4-5.0) gm/dl Globulin 3.0 (2.5-4.0) gm/dl Albumin/Globulin Ratio 1.0 (0.9-2) Hospital Course (1) Acute alteration in mental status: (2) Acute hepatic encephalopathy: (3) Alcoholic cirrhosis of liver: (4) GERD (gastroesophageal reflux disease): (5) Hypertension: (6) COPD (chronic obstructive pulmonary disease): Plan Mr. Fortune is a 71 y/o M with PMH of intracranial hemorrhage, alcohol induced cirrhosis, atrial fibrillation, insomnia, gout, carotid artery stenosis, COPD, who was admitted to the hospital for altered mental status. Patient has had increased confusion and agitation over the past few days (recently discharged from [facility] 07/20). His presentation is largely unchanged from previous admission, confusion is likely in the setting of hepatic encephalopathy though there may be a component of delirium involved. He is currently clinically stable for discharge. #Altered Mental Status: Secondary to Hepatic Encephalopathy/Hyperactive Delirium Patient has a known history of alcoholic cirrhosis with previous instances of HE. Currently altered - ammonia on admit 156. CT Head and CXR - no acute changes. CT Head did show white matter hypodensities suggest chronic microvascular ischemic disease, left temporoparietal encephalomalacia re- demonstrated, and cerebral vascular calcifications. Utox negative. UA negative. Baseline mentation - struggles with word finding but is able to communicate more fully, is more oriented, and can perform some of his daily activities of living independently. Per PT note patient requires 24/7 care either at home or at an out of pocket facility. Daughter has decided to take him home with home health. Continue lactulose with a goal of 2-3 soft formed BMs a day. Continue rifaximin. #Hyponatremia Upon admission Na was 129. 135 at time of discharge. Etiology unclear - likely related to cirrhosis. Continue to monitor #Liver Cirrhosis Patient has a known history of alcoholic cirrhosis. MELD 18 inpatient. Continue to monitor. #Atrial Fibrillation Rate controlled. Patient is not on anticoagulation due to recent intraparenchymal hemorrhage #Hypertension Patient on lisinopril and Lasix at home for hypertension. BP within acceptable range. Continue home meds #Hx of Intracranial Hemorrhage Continue Levetiracetam #Deconditioning PT/OT consult placed - recommend 24/7 care. CM following during his course of stay. #GERD Continue Protonix #COPD Continue home inhaler Diet: Easy to chew DVT PPx: SCDs Dispo: home Code Status: DNR/DNI Last Updated Family: 07/27 Total Time Total Time Spent Total Time Spent (In Minutes): See attending attestation Discharge Plan Discharge Items Patient Disposition: Home - Home Health Services Reason For Visit: CONFUSION Discharge Diagnosis: Hepatic encephalopathy Activity: Per Instructions section Non-emergency contact: Primary Care Provider and Crystal Lapper Call non-emergency contact if: your symptoms worsen, your pain is unusual for you and your temperature is above 101.5 Follow-up/Referrals: Craig Worthy DO [Primary Care Provider] - 08/05/22 9:20 am Diet: Heart Healthy Addtl Attending Provider Instructions: You were admitted to the hospital for a hepatic encephalopathy. You were treated with lactulose to help decrease ammonia levels. Goal was 2-3 soft formed bowel movements a day. You were stable throughout your admission. A discharge summary will be sent to your primary care physician to ensure continuity of care. Please bring this discharge summary with you to your next office appointment so that your provider can review it at that time. Follow-up appointments: Make a follow-up appointment with your PCP within the next week. It is very important that you follow up with them shortly after discharge from the hospital. Keep all your follow-up appointments as already scheduled. If you cannot make an appointment, notify your provider. Medications: We increased your lactulose to 30 gm 3-4 times a day. Dose the lactulose to aim for 2-3 soft, formed bowel movements a day. This will help to avoid ammonia build up. Take your medications as instructed; do not skip a dose of your medicines. Make sure all of your doctors know every medicine you are taking (including [id number] medicines, vitamins, and supplements). Call your primary care provider before taking any new medicines (including [id number] medicines, vitamins, and supplements), because some of these may interact with your current medications, or may make your symptoms worse. Tell your primary care provider if you cannot afford your medications. CONTACT YOUR PRIMARY CARE PROVIDERif you experience any of the following: Fever Worsening pain or new pain Difficulty following your treatment plan, or difficulty taking medications CALL 911 OR GO TO THE EMERGENCY DEPARTMENTif you experience any of the follo wing: Sudden, severe abdominal pain or nausea/vomiting Severe chest pain, or chest pain that radiates (moves) to your jaw or arm Sudden, severe shortness of breath or difficulty breathing Pending Studies at Discharge: No Stand-Alone Forms: My [facility], Smoking Cessation Medications and DC Order Prescriptions: New lactulose 20 gram/30 mL solution 30 g PO TID Qty: 2880 0RF Rx Instructions: Increase/Decrease lactulose for a goal of 2-3 soft formed bowel movements daily Continued furosemide [Lasix] 40 mg tablet 40 mg PO BID Qty: 60 2RF Rx Instructions: give every AM at 8am, and every afternoon at 5pm. levetiracetam [Keppra] 500 mg tablet 500 mg PO Q12H Qty: 60 2RF lisinopril 5 mg tablet 5 mg PO DAILY Qty: 30 3RF pantoprazole [Protonix] 40 mg tablet,delayed release (DR/EC) 40 mg PO BID Qty: 60 2RF potassium chloride 20 mEq tablet,ER particles/crystals 20 meq PO BID Qty: 60 1RF albuterol sulfate 90 mcg/actuation HFA aerosol inhaler 1 inh inhalation QID PRN (Reason: shortness of breath or wheezing) Qty: 8.5 3RF ferrous sulfate 325 mg (65 mg iron) tablet 325 mg PO BID Qty: 180 1RF Anoro Ellipta 62.5-25 mcg/actuation blister with device 1 inh INHALATION QAM Qty: 60 11RF Rx Instructions: RINSE MOUTH THOROUGHLY AND SPIT AFTER EACH USE multivitamin [Daily-Verena] Tablet 1 tab PO QAM Qty: 30 2RF cholecalciferol (vitamin D3) 25 mcg (1,000 unit) Capsule 2,000 unit PO QAM Qty: 60 2RF acetaminophen 325 mg Tablet 650 mg PO Q4H MDD 3 GM APAP/24 HOURS PRN (Reason: Fever Or Pain) Rx Instructions: NEEDED FOR MILD PAIN OR FEVER GREATER THAN 100 F melatonin 3 mg Tablet 6 mg PO HS PRN (Reason: Sleep) rifaximin 550 mg Tablet 550 mg PO BID Rx Instructions: STOP 06/08/22 Ocular Lubricant 1 drp OPB QID PRN (Reason: Dry Eyes) Discontinued lactulose [Generlac] 10 gram/15 mL solution 20 g PO TID Qty: 946 0RF Discharge Orders: Discharge Order (Routine); Ordered 07/27/22 Ordered By: Nicol Stevenson Admission Data Admit Date/Time: 07/23/22 01:11 Attending Provider: Lázaro Trujillo Admit Provider: Nova Gruber Primary Care Provider: Craig Worthy Other Providers: Tamanna Nguyen Supervising Physician Co-Signing Physician Notes Attending attestation Pt seen and examined in concert with Dr. Stevenson. In agreement with the documented findings as noted in the resident documentation with any exceptions or additions as noted here. Resting in bed denies any significant discomfort at present though otherwise focused history unobtainable 2/2 patient cognitive status. Delirium likely secondary to hepatic encephalopathy - continue rifaximin. Lactulose can be uptitrated to 30gm QID if required to support 2-3 BM per day, though was able to approach appropriate output on current dose in hospital. Monitor cognitive status closely. Else see resident documentation as noted. Total attending physician time spent with this patient's care on the day of discharge: 35 minutes. Resident Activity Tracking Resident Involvement: Resident Care Provided Care Provided: Adult Hospital Medicine
[2022-07-27] MEDS ORDERED: LACTULOSE SYRUP 30 GM/45 ML UDP PO STA (19:13)
[2022-07-27 19:28] LABS: Hematocrit (blood only) 34.1 % (40.1-51.0); Hemoglobin 12.7 g/dl (14.0-18.0); Mean Corpuscular Hemoglobin 36.9 pg (25.0-34.0); Mean Corpuscular Hgb Conc 37.2 g/dL (32.0-36.0); Mean Corpuscular Volume 99.1 fL (80.0-100.0); Mean Platelet Volume 10.3 fL (9.4-12.4); Platelet Count 141 K/uL (130-400); RDW Coefficient of Variation 13.2 % (11.5-14.5); RDW Standard Deviation 47.5 fL (36.4-46.3); Red Blood Count 3.44 M/uL (4.63-6.08)
[2022-07-27 19:49] LABS: Albumin Globulin Ratio 0.8 (0.9-2); Albumin Level 2.8 gm/dl (3.4-5.0); BUN Creatinine Ratio 19.6 (10-20); Bilirubin,Total 2.4 mg/dl (0.2-1.0); Calcium 8.1 mg/dl (8.5-10.1); Creatinine Clr Calc Pharmacy 65.6 ml/min; Est GFR (African American) 85.9 ml/min; Est GFR (Non-African American) 74.1 ml/min; Globulin 3.5 gm/dl (2.5-4.0); Potassium 3.3 mmol/L (3.5-5.1); Total Protein 6.3 gm/dl (6.0-8.3)
--- NOTE | 2022-07-27 20:41 | XRay Report ---
KUB CLINICAL HISTORY: constipation COMPARISON STUDY: CT of the abdomen and pelvis July 08, 2022. 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 Bowel gas pattern is normal. There is no evidence for a bowel obstruction. Moderate amount of stool within the colon and rectum is present. Penile prosthesis is incidentally noted. IMPRESSION: No evidence for a bowel obstruction. Moderate amount of stool within the colon and rectum. ACT 112: Negative or not required by law. Electronically signed by: Karthikyean Rashid M.D. 07/27/2022 8:39 PM
[2022-07-28] MEDS: FERROUS SULFATE 325 MG TAB PO SCH ×2 (07:41→20:33)
[2022-07-28] MEDS: rifAXIMin 550 MG TABLET PO SCH ×2 (07:41→20:34)
[2022-07-28] MEDS: levETIRAcetam 500 MG TAB PO SCH ×2 (07:42→20:33)
[2022-07-28] MEDS: FUROSEMIDE 40 MG TAB PO SCH ×2 (07:42→17:43)
[2022-07-28] MEDS: PANTOprazole 40 MG TAB PO SCH ×2 (07:42→20:34)
[2022-07-28] MEDS: MULTIVITAMIN TAB PO SCH (07:43)
[2022-07-28] MEDS: CHOLECALCIFEROL 1,000 UNITS 25 MCG TAB PO SCH (07:44)
--- NOTE | 2022-07-28 07:44 | Hospitalist Progress Note ---
Date of Service July 28, 2022 Assessment & Plan (1) Acute alteration in mental status: Plan: Plan Mr. Fortune is a 71 y/o M with PMH of intracranial hemorrhage, alcohol induced cirrhosis, atrial fibrillation, insomnia, gout, carotid artery stenosis, COPD, who was admitted to the hospital for altered mental status. Patient has had increased confusion and agitation over the past few days (recently discharged from [facility] 07/20). His presentation is largely unchanged from previous admission, confusion is likely in the setting of hepatic encephalopathy though there may be a component of delirium involved. Patient was seen at bedside 18:55 07/27 as daughter expressed that he was worse than when he came in. Evaluation revealed worse mental status and weakness. Worsening hepatic encephalopathy vs sundowning vs delirium. Patient had not had a BM in 24 hours. Ordered CMP, Ammonia, and CBC along with Abdominal X-ray to evaluate for obstruction and stool burden. Increased lactulose to 30 gm PO QID. Directed nursing to document BM. Will continue to monitor MS and have PT f/u to reeval for discharge needs. #Altered Mental Status: Secondary to Hepatic Encephalopathy/Hyperactive Delirium Patient has a known history of alcoholic cirrhosis with previous instances of HE. Currently altered - ammonia on admit 156. CT Head and CXR - no acute changes. CT Head did show white matter hypodensities suggest chronic microvascular ischemic disease, left temporoparietal encephalomalacia re- demonstrated, and cerebral vascular calcifications. Utox negative. UA negative. Baseline mentation - struggles with word finding but is able to communicate more fully, is more oriented, and can perform some of his daily activities of living independently. Continue lactulose with a goal of 2-3 soft formed BMs a day. Continue rifaximin. [] lactulose 30 gm QID, max dose of lactulose - goal 2-3 BM [] rifaximin [] PT f/u to reeval - recs 12/05 care either at SNF or at home with home health. CM informed. #Hyponatremia Upon admission Na was 129. 135 at time of discharge. Etiology unclear - likely related to cirrhosis. Continue to monitor [] AM BMP #Liver Cirrhosis Patient has a known history of alcoholic cirrhosis. MELD 18 inpatient. Continue to monitor. #Atrial Fibrillation Rate controlled. Patient is not on anticoagulation due to recent intraparenchymal hemorrhage #Hypertension Patient on lisinopril and Lasix at home for hypertension. BP within acceptable range. Continue home meds #Hx of Intracranial Hemorrhage Continue Levetiracetam #Deconditioning PT/OT consult placed - recommend 24/7 care. CM following during his course of stay. [] PT f/u to reeval - recs 24/7 care either at SNF or at home with home health. CM informed. #GERD Continue Protonix #COPD Continue home inhaler Diet:Easy to chew DVT PPx:SCDs Dispo:home Code Status:DNR/DNI Last Updated Family:07/28, Ankita (2) Acute hepatic encephalopathy: (3) Alcoholic cirrhosis of liver: (4) GERD (gastroesophageal reflux disease): (5) Hypertension: (6) COPD (chronic obstructive pulmonary disease): Admission and Anticipated Discharge Date Admission Date: July 23, 2022 Supervising Physician Co-Signing Physician Notes Pt seen and examined in concert with Dr. Stevenson. In agreement with the documented findings as noted in the resident documentation with any exceptions or additions as noted here. Resting in bed denies any significant discomfort at present though otherwise focused history unobtainable 2/2 patient cognitive status. Delirium likely secondary to hepatic encephalopathy - continue rifaximin. Lactulose can be uptitrated to 30gm QID if required to support 2-3 BM per day, though was able to approach appropriate output on current dose in hospital. Monitor cognitive status closely. Else see resident documentation as noted. Total attending physician time spent with this patient's care on the day of discharge: 35 minutes. Subjective Patient unable to provide history 2/2 mental status. Review of Systems Review of Systems: See above. Physical Exam Constitutional: + altered mental status Eyes: + anicteric sclerae and EOM intact bilaterally ENMT: Mouth: + poor dentition Respiratory: normal respiratory effort, lungs clear to auscultation Cardiovascular: Rate/Rhythm: + irregularly irregular Heart Sounds: normal S1 and normal S2 Extremities: no edema Musculoskeletal: Extremities: extremities normal to inspection Skin: no rashes, warm and dry Genitourinary: condom cath Results & Data Results & Data ([facility]) Vital Signs (Past 12 Hours) Vital Signs Temp Pulse Resp BP Pulse Ox O2 Del Method 07/27/22 23:24 37.3 C 91 H 18 87/42 L 95 Room Air Laboratory Results 07/27/22 07/27/22 07/27/22 Range/Units 19:19 19:19 19:19 WBC 11.00 H (4.8-10.8) K/ul RBC 3.44 L (4.63-6.08) M/uL Hgb 12.7 L (14.0-18.0) g/dl Hct 34.1 L (40.1-51.0) % MCV 99.1 (80.0-100.0) fL MCH 36.9 H (25.0-34.0) pg MCHC 37.2 H (32.0-36.0) g/dL RDW Std Deviation 47.5 H (36.4-46.3) fL RDW Coeff of Ramses 13.2 (11.5-14.5) % Plt Count 141 (130-400) K/uL MPV 10.3 (9.4-12.4) fL Sodium 134 L (136-145) mmol/L Potassium 3.3 L (3.5-5.1) mmol/L Chloride 100 (98-107) mmol/L Carbon Dioxide 27 (21-32) mmol/L Anion Gap 7 (3-11) BUN 20 (6-23) mg/dl Creatinine 1.02 (0.6-1.4) mg/dl Est Cr Clr Drug Dosing 65.6 ml/min Est GFR ( Amer) 85.9 ml/min Est GFR (Non-Af Amer) 74.1 ml/min BUN/Creatinine Ratio 19.6 (10-20) Glucose 124 H (70-99(Fasting)) mg/dl Calcium 8.1 L (8.5-10.1) mg/dl Total Bilirubin 2.4 H (0.2-1.0) mg/dl AST 30 (13-39) U/L ALT 17 (7-52) U/L Alkaline Phosphatase 121 H (34-104) U/L Ammonia 108.0 H (18-72) umol/L Total Protein 6.3 (6.0-8.3) gm/dl Albumin 2.8 L (3.4-5.0) gm/dl Globulin 3.5 (2.5-4.0) gm/dl Albumin/Globulin Ratio 0.8 L (0.9-2) 07/27/22 Range/Units 06:29 WBC (4.8-10.8) K/ul RBC (4.63-6.08) M/uL Hgb (14.0-18.0) g/dl Hct (40.1-51.0) % MCV (80.0-100.0) fL MCH (25.0-34.0) pg MCHC (32.0-36.0) g/dL RDW Std Deviation (36.4-46.3) fL RDW Coeff of Ramses (11.5-14.5) % Plt Count (130-400) K/uL MPV (9.4-12.4) fL Sodium 135 L (136-145) mmol/L Potassium 3.7 (3.5-5.1) mmol/L Chloride 100 (98-107) mmol/L Carbon Dioxide 27 (21-32) mmol/L Anion Gap 8 (3-11) BUN 18 (6-23) mg/dl Creatinine 0.88 (0.6-1.4) mg/dl Est Cr Clr Drug Dosing 76.0 ml/min Est GFR ( Amer) 100.9 ml/min Est GFR (Non-Af Amer) 87.0 ml/min BUN/Creatinine Ratio 20.5 H (10-20) Glucose 100 H (70-99(Fasting)) mg/dl Calcium 8.3 L (8.5-10.1) mg/dl Total Bilirubin 3.1 H (0.2-1.0) mg/dl AST 38 (13-39) U/L ALT 20 (7-52) U/L Alkaline Phosphatase 131 H (34-104) U/L Ammonia (18-72) umol/L Total Protein 6.1 (6.0-8.3) gm/dl Albumin 3.1 L (3.4-5.0) gm/dl Globulin 3.0 (2.5-4.0) gm/dl Albumin/Globulin Ratio 1.0 (0.9-2) Diagnostic Findings KUB X-Ray 07/27/22 19:03 KUB CLINICAL HISTORY: constipation COMPARISON STUDY: CT of the abdomen and pelvis July 08, 2022. 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 Bowel gas pattern is normal. There is no evidence for a bowel obstruction. Moderate amount of stool within the colon and rectum is present. Penile prosthesis is incidentally noted. IMPRESSION: No evidence for a bowel obstruction. Moderate amount of stool within the colon and rectum. Resident Activity Tracking Resident Involvement: Resident Care Provided Care Provided: [facility]
[2022-07-28] MEDS: UMECLIDINIUM/VILANTEROL 62.5/25MCG 7 PUFFS/INHALER INH SCH (07:45)
[2022-07-28] MEDS: LACTULOSE SYRUP 30 GM/45 ML UDP PO SCH ×4 (07:46→20:33)
--- NOTE | 2022-07-28 07:47 | Hospitalist Progress Note ---
Date of Service July 27, 2022 Assessment & Plan (1) Acute alteration in mental status: Plan: Plan Mr. Fortune is a 71 y/o M with PMH of intracranial hemorrhage, alcohol induced cirrhosis, atrial fibrillation, insomnia, gout, carotid artery stenosis, COPD, who was admitted to the hospital for altered mental status. Patient has had increased confusion and agitation over the past few days (recently discharged from [facility] 07/20). His presentation is largely unchanged from previous admission, confusion is likely in the setting of hepatic encephalopathy though there may be a component of delirium involved. Clinically stable. #Altered Mental Status: Secondary to Hepatic Encephalopathy/Hyperactive Delirium Patient has a known history of alcoholic cirrhosis with previous instances of HE. Currently altered - ammonia on admit 156. CT Head and CXR - no acute changes. CT Head did show white matter hypodensities suggest chronic microvascular ischemic disease, left temporoparietal encephalomalacia re- demonstrated, and cerebral vascular calcifications. Utox negative. UA negative. Baseline mentation - struggles with word finding but is able to communicate more fully, is more oriented, and can perform some of his daily activities of living independently. Per PT note patient requires 24/7 care either at home or at an out of pocket facility. Daughter has decided to take him home with home health. Continue lactulose with a goal of 2-3 soft formed BMs a day. Continue rifaximin. [] Lactulose 30 gm QID - goal 2-3 soft formed BM QD [] Rifaximin #Hyponatremia Upon admission Na was 129. 135 at time of discharge. Etiology unclear - likely related to cirrhosis. Continue to monitor [] AM CMP #Liver Cirrhosis Patient has a known history of alcoholic cirrhosis. MELD 18 inpatient. Continue to monitor. #Atrial Fibrillation Rate controlled. Patient is not on anticoagulation due to recent intraparenchymal hemorrhage #Hypertension Patient on lisinopril and Lasix at home for hypertension. BP within acceptable range. Continue home meds #Hx of Intracranial Hemorrhage Continue Levetiracetam #Deconditioning PT/OT consult placed - recommend 24/7 care. CM following during his course of stay. [] PT f/u to reeval [] CM #GERD Continue Protonix #COPD Continue home inhaler Diet:Easy to chew DVT PPx:SCDs Dispo:home Code Status:DNR/DNI Last Updated Family:10/08 (2) Acute hepatic encephalopathy: (3) Alcoholic cirrhosis of liver: (4) GERD (gastroesophageal reflux disease): (5) Hypertension: (6) COPD (chronic obstructive pulmonary disease): Admission and Anticipated Discharge Date Admission Date: July 23, 2022 Supervising Physician Co-Signing Physician Notes Attending attestation Pt seen and examined in concert with Dr. Stevenson. In agreement with the documented findings as noted in the resident documentation with any exceptions or additions as noted here. Resting in bed denies any significant discomfort at present though otherwise focused history unobtainable 2/2 patient cognitive status. Mentation appears at baseline from previous evaluation. Delirium likely secondary to hepatic encephalopathy - continue rifaximin. Uptitrated lactulose with BM response. NH3 stable. Monitor cognitive status closely.PT rec'd SNF and CM aware for placement. Else see resident documentation as noted. Subjective Patient unable to provide history 2/2 mental status. Review of Systems Review of Systems: See above. Physical Exam Constitutional: + altered mental status Eyes: + anicteric sclerae and EOM intact bilaterally ENMT: Mouth: + poor dentition Respiratory: normal respiratory effort, lungs clear to auscultation Cardiovascular: Rate/Rhythm: + irregularly irregular Heart Sounds: normal S1 and normal S2 Extremities: no edema Musculoskeletal: Extremities: extremities normal to inspection Skin: no rashes, warm and dry Results & Data Results & Data ([facility]) Vital Signs (Past 12 Hours) Vital Signs Temp Pulse Resp BP Pulse Ox O2 Del Method 07/27/22 23:24 37.3 C 91 H 18 87/42 L 95 Room Air Laboratory Results 07/27/22 07/27/22 07/27/22 Range/Units 19:19 19:19 19:19 WBC 11.00 H (4.8-10.8) K/ul RBC 3.44 L (4.63-6.08) M/uL Hgb 12.7 L (14.0-18.0) g/dl Hct 34.1 L (40.1-51.0) % MCV 99.1 (80.0-100.0) fL MCH 36.9 H (25.0-34.0) pg MCHC 37.2 H (32.0-36.0) g/dL RDW Std Deviation 47.5 H (36.4-46.3) fL RDW Coeff of Ramses 13.2 (11.5-14.5) % Plt Count 141 (130-400) K/uL MPV 10.3 (9.4-12.4) fL Sodium 134 L (136-145) mmol/L Potassium 3.3 L (3.5-5.1) mmol/L Chloride 100 (98-107) mmol/L Carbon Dioxide 27 (21-32) mmol/L Anion Gap 7 (3-11) BUN 20 (6-23) mg/dl Creatinine 1.02 (0.6-1.4) mg/dl Est Cr Clr Drug Dosing 65.6 ml/min Est GFR ( Amer) 85.9 ml/min Est GFR (Non-Af Amer) 74.1 ml/min BUN/Creatinine Ratio 19.6 (10-20) Glucose 124 H (70-99(Fasting)) mg/dl Calcium 8.1 L (8.5-10.1) mg/dl Total Bilirubin 2.4 H (0.2-1.0) mg/dl AST 30 (13-39) U/L ALT 17 (7-52) U/L Alkaline Phosphatase 121 H (34-104) U/L Ammonia 108.0 H (18-72) umol/L Total Protein 6.3 (6.0-8.3) gm/dl Albumin 2.8 L (3.4-5.0) gm/dl Globulin 3.5 (2.5-4.0) gm/dl Albumin/Globulin Ratio 0.8 L (0.9-2) Diagnostic Findings No new imaging Resident Activity Tracking Resident Involvement: Resident Care Provided Care Provided: [facility]
[2022-07-28 07:59] LABS: Basophils # (auto) 0.06 K/uL (0-0.2); Basophils % (auto) 0.7 %; Eosinophils % (auto) 2.2 %; Hematocrit (blood only) 33.7 % (40.1-51.0); Hemoglobin 12.4 g/dl (14.0-18.0); Immature Granulocytes # (auto) 0.05 K/uL (0.00-0.02); Immature Granulocytes % (auto) 0.6 %; Lymphocytes # (auto) 1.05 K/uL (1.2-3.4); Lymphocytes % (auto) 11.7 %; Mean Corpuscular Hemoglobin 36.2 pg (25.0-34.0); Mean Corpuscular Hgb Conc 36.8 g/dL (32.0-36.0); Mean Corpuscular Volume 98.3 fL (80.0-100.0); Mean Platelet Volume 10.4 fL (9.4-12.4); Monocytes # (auto) 1.17 K/uL (0.24-0.82); Monocytes % (auto) 13.1 %; Neutrophils # (auto) 6.43 K/uL (1.4-6.5); Neutrophils % (auto) 71.7 %; Platelet Count 142 K/uL (130-400); RDW Coefficient of Variation 13.1 % (11.5-14.5); RDW Standard Deviation 46.7 fL (36.4-46.3); Red Blood Count 3.43 M/uL (4.63-6.08); White Blood Count 8.96 K/ul (4.8-10.8)
[2022-07-28] MEDS ORDERED: POTASSIUM CHLORIDE CRTAB 20 MEQ TABCR PO STA (08:13)
[2022-07-28 08:25] LABS: BUN Creatinine Ratio 20.8 (10-20); Calcium 8.1 mg/dl (8.5-10.1); Creatinine Clr Calc Pharmacy 69.7 ml/min; Est GFR (African American) 92.4 ml/min; Est GFR (Non-African American) 79.8 ml/min; Magnesium 1.7 mg/dl (1.7-2.4); Potassium 3.4 mmol/L (3.5-5.1)
[2022-07-28] MEDS: MAGNESIUM SULFATE / D5W 1 GM/100 ML BAG IV SCH ×2 (11:16→13:23)
[2022-07-28 14:02] LABS: BUN Creatinine Ratio 19.6 (10-20); Calcium 8.5 mg/dl (8.5-10.1); Creatinine Clr Calc Pharmacy 65.6 ml/min; Est GFR (African American) 85.9 ml/min; Est GFR (Non-African American) 74.1 ml/min; Potassium 3.2 mmol/L (3.5-5.1)
[2022-07-28] MEDS: POTASSIUM CHLORIDE / WTR 10 MEQ/100 ML PLCT IV SCH ×2 (16:13→17:15)
[2022-07-28] MEDS: MELATONIN 3 MG TAB PO PRN (20:32)
[2022-07-29 06:51] LABS: Hematocrit (blood only) 32.5 % (40.1-51.0); Mean Corpuscular Hemoglobin 36.6 pg (25.0-34.0); Mean Corpuscular Hgb Conc 36.9 g/dL (32.0-36.0); Mean Corpuscular Volume 99.1 fL (80.0-100.0); Mean Platelet Volume 10.3 fL (9.4-12.4); Platelet Count 132 K/uL (130-400); RDW Coefficient of Variation 13.2 % (11.5-14.5); RDW Standard Deviation 47.6 fL (36.4-46.3); Red Blood Count 3.28 M/uL (4.63-6.08); White Blood Count 7.36 K/ul (4.8-10.8)
--- NOTE | 2022-07-29 06:52 | Hospitalist Progress Note ---
Date of Service July 29, 2022 Assessment & Plan (1) Acute alteration in mental status: Plan: Plan Mr. Fortune is a 71 y/o M with PMH of intracranial hemorrhage, alcohol induced cirrhosis, atrial fibrillation, insomnia, gout, carotid artery stenosis, COPD, who was admitted to the hospital for altered mental status. Patient has had increased confusion and agitation over the past few days (recently discharged from [facility] 07/20). His presentation is largely unchanged from previous admission, confusion is likely in the setting of hepatic encephalopathy though there may be a component of delirium involved. Patient was seen at bedside 18:55 07/27 as daughter expressed that he was worse than when he came in. Evaluation revealed worse mental status and weakness. Worsening hepatic encephalopathy vs sundowning vs delirium. Patient had not had a BM in 24 hours. Ordered CMP, Ammonia, and CBC along with Abdominal X-ray to evaluate for obstruction and stool burden. Increased lactulose to 30 gm PO QID. Directed nursing to document BM. Will continue to monitor MS and have PT f/u to reeval for discharge needs. #Altered Mental Status: Secondary to Hepatic Encephalopathy/Hyperactive Delirium Patient has a known history of alcoholic cirrhosis with previous instances of HE. Currently altered - ammonia on admit 156. CT Head and CXR - no acute changes. CT Head did show white matter hypodensities suggest chronic microvascular ischemic disease, left temporoparietal encephalomalacia re- demonstrated, and cerebral vascular calcifications. Utox negative. UA negative. Baseline mentation - struggles with word finding but is able to communicate more fully, is more oriented, and can perform some of his daily activities of living independently. Continue lactulose with a goal of 2-3 soft formed BMs a day. Continue rifaximin. Requested again for nursing to document all BM as we are titrating lactulose to 2-3 BM QD for management of his ammonia levels. [] lactulose 30 gm QID, max dose of lactulose - goal 2-3 BM [] rifaximin [] PT f/u to reeval - recs 12/05 care either at SNF or at home with home health depending on family choice. CM informed. #Hyponatremia Upon admission Na was 129. 137 07/29. Etiology unclear - likely related to cirrhosis. Continue to monitor [] AM BMP #Liver Cirrhosis Patient has a known history of alcoholic cirrhosis. MELD 18 inpatient. Continue to monitor. #Atrial Fibrillation Rate controlled. Patient is not on anticoagulation due to recent intraparenchymal hemorrhage #Hypertension Patient on lisinopril and Lasix at home for hypertension. BP within acceptable range. Continue home meds #Hx of Intracranial Hemorrhage Continue Levetiracetam #Deconditioning PT/OT consult placed - recommend 24/7 care. CM following during his course of stay. [] PT f/u to reeval - recs 24/ care either at SNF or at home with home health depending on family choice. CM informed. #GERD Continue Protonix #COPD Continue home inhaler Diet:Easy to chew DVT PPx:SCDs Dispo:home Code Status:DNR/DNI Last Updated Family:07/28, Ankita (2) Acute hepatic encephalopathy: (3) Alcoholic cirrhosis of liver: (4) GERD (gastroesophageal reflux disease): (5) Hypertension: (6) COPD (chronic obstructive pulmonary disease): Admission and Anticipated Discharge Date Admission Date: July 23, 2022 Supervising Physician Co-Signing Physician Notes I personally examined the patient and verified all lebron points of history and exam, discussed case, and agree with decision making with Dr Stevenson easily confused but denies complaints vitals noted nad heent nc at mmm breathing unlabored no accessory muscles good effort skin no rashes no pallor or icterus Delirium likely secondary to hepatic encephalopathy - continue rifaximin, lactulose. awaiting placement options otherwise as above Subjective Patient unable to provide history 2/2 mental status. Mental status slightly improved today. Still not oriented. Review of Systems Review of Systems: See above. Physical Exam Constitutional: + altered mental status Eyes: + anicteric sclerae and EOM intact bilaterally ENMT: Mouth: + poor dentition Respiratory: normal respiratory effort, lungs clear to auscultation Cardiovascular: Rate/Rhythm: + irregularly irregular Heart Sounds: normal S1 and normal S2 Extremities: no edema Gastrointestinal (Abdomen): hyperactive bowel sounds, soft, nontender Musculoskeletal: Extremities: extremities normal to inspection Skin: no rashes, warm and dry Results & Data Results & Data ([facility]) Vital Signs (Past 12 Hours) Vital Signs Temp Pulse Resp BP Pulse Ox O2 Del Method 07/28/22 23:30 36.6 C 87 18 108/57 L 92 Room Air Laboratory Results 1007/29/22 07/29/22 Range/Units 06:10 06:10 06:10 WBC 7.36 (4.8-10.8) K/ul RBC 3.28 L (4.63-6.08) M/uL Hgb 12.0 L (14.0-18.0) g/dl Hct 32.5 L (40.1-51.0) % MCV 99.1 (80.0-100.0) fL MCH 36.6 H (25.0-34.0) pg MCHC 36.9 H (32.0-36.0) g/dL RDW Std Deviation 47.6 H (36.4-46.3) fL RDW Coeff of Ramsse 13.2 (11.5-14.5) % Plt Count 132 (130-400) K/uL MPV 10.3 (9.4-12.4) fL PT 13.1 H (9.0-12.0) Seconds INR 1.2 H (0.9-1.1) Sodium 137 (136-145) mmol/L Potassium 3.5 (3.5-5.1) mmol/L Chloride 104 (98-107) mmol/L Carbon Dioxide 26 (21-32) mmol/L Anion Gap 7 (3-11) BUN 19 (6-23) mg/dl Creatinine 0.94 (0.6-1.4) mg/dl Est Cr Clr Drug Dosing 71.2 ml/min Est GFR ( Amer) 94.8 ml/min Est GFR (Non-Af Amer) 81.8 ml/min BUN/Creatinine Ratio 20.2 H (10-20) Glucose 106 H (70-99(Fasting)) mg/dl Calcium 8.0 L (8.5-10.1) mg/dl Total Bilirubin 2.3 H (0.2-1.0) mg/dl AST 30 (13-39) U/L ALT 16 (7-52) U/L Alkaline Phosphatase 113 H (34-104) U/L Total Protein 6.0 (6.0-8.3) gm/dl Albumin 2.7 L (3.4-5.0) gm/dl Globulin 3.3 (2.5-4.0) gm/dl Albumin/Globulin Ratio 0.8 L (0.9-2) 07/28/22 Range/Units 13:11 WBC (4.8-10.8) K/ul RBC (4.63-6.08) M/uL Hgb (14.0-18.0) g/dl Hct (40.1-51.0) % MCV (80.0-100.0) fL MCH (25.0-34.0) pg MCHC (32.0-36.0) g/dL RDW Std Deviation (36.4-46.3) fL RDW Coeff of Ramses (11.5-14.5) % Plt Count (130-400) K/uL MPV (9.4-12.4) fL PT (9.0-12.0) Seconds INR (0.9-1.1) Sodium 138 (136-145) mmol/L Potassium 3.2 L (3.5-5.1) mmol/L Chloride 102 (98-107) mmol/L Carbon Dioxide 27 (21-32) mmol/L Anion Gap 9 (3-11) BUN 20 (6-23) mg/dl Creatinine 1.02 (0.6-1.4) mg/dl Est Cr Clr Drug Dosing 65.6 ml/min Est GFR ( Amer) 85.9 ml/min Est GFR (Non-Af Amer) 74.1 ml/min BUN/Creatinine Ratio 19.6 (10-20) Glucose 117 H (70-99(Fasting)) mg/dl Calcium 8.5 (8.5-10.1) mg/dl Total Bilirubin (0.2-1.0) mg/dl AST (13-39) U/L ALT (7-52) U/L Alkaline Phosphatase (34-104) U/L Total Protein (6.0-8.3) gm/dl Albumin (3.4-5.0) gm/dl Globulin (2.5-4.0) gm/dl Albumin/Globulin Ratio (0.9-2) Diagnostic Findings No new imaging. Resident Activity Tracking Resident Involvement: Resident Care Provided Care Provided: [facility]
[2022-07-29 07:09] LABS: INR 1.2 (0.9-1.1); Prothrombin Time 13.1 Seconds (9.0-12.0)
[2022-07-29 07:14] LABS: Albumin Globulin Ratio 0.8 (0.9-2); Albumin Level 2.7 gm/dl (3.4-5.0); BUN Creatinine Ratio 20.2 (10-20); Bilirubin,Total 2.3 mg/dl (0.2-1.0); Creatinine Clr Calc Pharmacy 71.2 ml/min; Est GFR (African American) 94.8 ml/min; Est GFR (Non-African American) 81.8 ml/min; Globulin 3.3 gm/dl (2.5-4.0); Potassium 3.5 mmol/L (3.5-5.1)
[2022-07-29] MEDS: CHOLECALCIFEROL 1,000 UNITS 25 MCG TAB PO SCH (08:16)
[2022-07-29] MEDS: FUROSEMIDE 40 MG TAB PO SCH ×2 (08:16→17:03)
[2022-07-29] MEDS: MULTIVITAMIN TAB PO SCH (08:16)
[2022-07-29] MEDS: PANTOprazole 40 MG TAB PO SCH ×2 (08:17→20:11)
[2022-07-29] MEDS: levETIRAcetam 500 MG TAB PO SCH ×2 (08:17→20:11)
[2022-07-29] MEDS: LACTULOSE SYRUP 30 GM/45 ML UDP PO SCH ×4 (08:17→20:11)
[2022-07-29] MEDS: FERROUS SULFATE 325 MG TAB PO SCH ×2 (08:17→20:11)
[2022-07-29] MEDS: rifAXIMin 550 MG TABLET PO SCH ×2 (08:17→20:11)
[2022-07-29] MEDS: UMECLIDINIUM/VILANTEROL 62.5/25MCG 7 PUFFS/INHALER INH SCH (08:18)
--- NOTE | 2022-07-29 17:21 | Billing Data ---
Date of Service July 29, 2022 Coding Level of Care Code 25332 Subseq Hosp Care Lvl 2
[2022-07-29] MEDS: MELATONIN 3 MG TAB PO PRN (20:12)
[2022-07-30 07:04] LABS: BUN Creatinine Ratio 20.2 (10-20); Calcium 8.1 mg/dl (8.5-10.1); Creatinine Clr Calc Pharmacy 79.6 ml/min; Est GFR (African American) 102.8 ml/min; Est GFR (Non-African American) 88.7 ml/min; Potassium 3.1 mmol/L (3.5-5.1)
--- NOTE | 2022-07-30 07:06 | Hospitalist Progress Note ---
Date of Service July 30, 2022 Assessment & Plan (1) Acute alteration in mental status: Plan: Plan Mr. Fortune is a 71 y/o M with PMH of intracranial hemorrhage, alcohol induced cirrhosis, atrial fibrillation, insomnia, gout, carotid artery stenosis, COPD, who was admitted to the hospital for altered mental status. 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 His presentation is largely unchanged from previous admission. His confusion is secondary to hepatic encephalopathy with possible component of superimposed delirium. #Altered Mental Status: Secondary to Hepatic Encephalopathy with Superimposed Hyperactive Delirium Patient has a known history of alcoholic cirrhosis with previous instances of HE. Admitted with hyperammonemia at 156. CT Head and CXR without acute changes. CT Head did show white matter hypodensities suggest chronic microvascular ischemic disease, left temporoparietal encephalomalacia re-demonstrated, and cerebral vascular calcifications. Utox negative. UA negative. Baseline mentation - struggles with word finding but is able to communicate more fully and can perform some of his daily activities of living independently. Continue lactulose with a goal of 2-3 soft formed BMs a day. Continue rifaximin. [] Continue lactulose 30 gm QID, max dose of lactulose - goal 2-3 BM (spoke w/ RN to ensure updated EMR) [] Continue rifaximin [] Continue Lasix for now - monitor/replete lytes PRN [] PT f/u to reeval - recs 24/7 care either at SNF or at home with home health depending on family choice. CM informed. [] Delirium precautions. Schedule melatonin. [] Consider adding hepatically-dosed atypical antipsychotic HS and/or scheduled antidepressant if indicated in the future #Hyponatremia - 127 on admission. Now resolved. Likely related to cirrhosis. Monitor with BMP. #Liver Cirrhosis Patient has a known history of alcoholic cirrhosis. MELD 18. Continue to monitor. #Atrial Fibrillation Rate controlled. Patient is not on anticoagulation due to recent intraparenchymal hemorrhage #Hypertension Patient on lisinopril and Lasix at home for hypertension. BP within acceptable range. Continue home meds #Hx of Intracranial Hemorrhage Continue Levetiracetam #Deconditioning PT/OT consult placed - recommend 24/7 care. CM following during his course of stay. [] PT f/u to reeval - recs 24/7 care either at SNF or at home with home health depending on family choice. CM informed. #GERD Continue Protonix #COPD Continue home inhaler Diet:Easy to chew DVT PPx:SCDs Dispo:awaiting placement Code Status:DNR/DNI (2) Acute hepatic encephalopathy: (3) Alcoholic cirrhosis of liver: (4) GERD (gastroesophageal reflux disease): (5) Hypertension: (6) COPD (chronic obstructive pulmonary disease): Admission and Anticipated Discharge Date Admission Date: July 23, 2022 Supervising Physician Co-Signing Physician Notes I personally examined the patient and verified all lebron points of history and exam, discussed case, and agree with decision making with Dr Hernandez still fairly easily confused. wants to go home but seems a bit unaware of current situation vitals noted nad heent nc at mmm breathing unlabored no accessory muscles good effort skin no rashes no pallor or icterus Delirium likely secondary to hepatic encephalopathy - continue rifaximin, lactulose. awaiting placement options - likely SNF otherwise as above Subjective NAEO. No meaningful history obtained by patient. Denies pain. Says breathing feels ok. Review of Systems Review of Systems: as per HPI Physical Exam Physical Exam: General: 71-year old male who is alert, though not oriented to person, place, event, time. Appears comfortable. Cardiac: Normal rate and regular rhythm; S1 and S2 present with no murmurs, rubs, or gallops. Pulmonary: Good respiratory effort with symmetric expansion of the chest. No use of accessory muscles. Lungs were clear to auscultation bilaterally with no crackles or wheezes. Abdominal: Normoactive bowel sounds. Abdomen was soft, mildly distended, but non-tender to palpation. Extremities: Upper and lower extremities are warm and well perfused. Minimal peripheral edema in the lower extremities bilaterally Results & Data Results & Data ([facility]) Vital Signs (Past 12 Hours) Vital Signs Temp Pulse Resp BP Pulse Ox O2 Del Method 07/29/22 23:09 37 C 72 14 107/61 94 Room Air 07/29/22 21:31 Room Air Resident Activity Tracking Resident Involvement: Resident Care Provided Care Provided: Adult Hospital Medicine
[2022-07-30] MEDS ORDERED: POTASSIUM CHLORIDE 20 MEQ/15 ML UDC PO STA (08:53)
[2022-07-30] MEDS: FUROSEMIDE 40 MG TAB PO SCH ×2 (09:18→16:31)
[2022-07-30] MEDS: PANTOprazole 40 MG TAB PO SCH ×2 (09:18→21:01)
[2022-07-30] MEDS: rifAXIMin 550 MG TABLET PO SCH ×2 (09:18→21:02)
[2022-07-30] MEDS: levETIRAcetam 500 MG TAB PO SCH ×2 (09:19→21:01)
[2022-07-30] MEDS: CHOLECALCIFEROL 1,000 UNITS 25 MCG TAB PO SCH (09:19)
[2022-07-30] MEDS: MULTIVITAMIN TAB PO SCH (09:19)
[2022-07-30] MEDS: FERROUS SULFATE 325 MG TAB PO SCH ×2 (09:19→21:01)
[2022-07-30] MEDS: LACTULOSE SYRUP 30 GM/45 ML UDP PO SCH ×4 (09:20→20:53)
[2022-07-30] MEDS: UMECLIDINIUM/VILANTEROL 62.5/25MCG 7 PUFFS/INHALER INH SCH (09:21)
[2022-07-30] MEDS: POTASSIUM CHLORIDE / WTR 10 MEQ/100 ML PLCT IV SCH ×3 (09:38→10:08)
[2022-07-30] MEDS ORDERED: POTASSIUM CHLORIDE CRTAB 20 MEQ TABCR PO STA (11:42)
--- NOTE | 2022-07-30 14:53 | Billing Data ---
Date of Service July 30, 2022 Coding Level of Care Code 27942 Subseq Hosp Care Lvl 2
[2022-07-30] MEDS ORDERED: MELATONIN 3 MG TAB PO SCH ×2 (18:00→21:00)
[2022-07-30] MEDS ORDERED: MELATONIN 3 MG TAB PO PRN (18:12)
[2022-07-30] MEDS: MELATONIN 3 MG TAB PO SCH (19:00)
--- NOTE | 2022-07-31 06:49 | Hospitalist Progress Note ---
Date of Service July 31, 2022 Assessment & Plan (1) Acute alteration in mental status: Plan: Plan Mr. Fortune is a 71 y/o M with PMH of intracranial hemorrhage, alcohol induced cirrhosis, atrial fibrillation, insomnia, gout, carotid artery stenosis, COPD, who was admitted to the hospital for altered mental status. 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 His presentation is largely unchanged from previous admission. His confusion is secondary to hepatic encephalopathy with possible component of superimposed delirium. #Altered Mental Status: Secondary to Hepatic Encephalopathy with Superimposed Hyperactive Delirium Patient has a known history of alcoholic cirrhosis with previous instances of HE. Admitted with hyperammonemia at 156. CT Head and CXR without acute changes. CT Head did show white matter hypodensities suggest chronic microvascular ischemic disease, left temporoparietal encephalomalacia re-demonstrated, and cerebral vascular calcifications. Utox negative. UA negative. Baseline mentation - struggles with word finding but is able to communicate more fully and can perform some of his daily activities of living independently. Continue lactulose with a goal of 2-3 soft formed BMs a day. Continue rifaximin. [] Continue lactulose 30 gm QID, max dose of lactulose - goal 2-3 BM (spoke w/ RN to ensure updated EMR) [] Continue rifaximin [] Continue Lasix for now - monitor/replete lytes PRN [] PT f/u to reeval - recs 24/7 care either at SNF or at home with home health depending on family choice. CM informed. [] Delirium precautions. Schedule melatonin 3mg [id number] #Hyponatremia - 127 on admission. Now resolved. Likely related to cirrhosis. Monitor with BMP. #Liver Cirrhosis Patient has a known history of alcoholic cirrhosis. MELD 18. Continue to monitor. #Atrial Fibrillation Rate controlled. Patient is not on anticoagulation due to recent intraparenchymal hemorrhage #Hypertension Patient on lisinopril and Lasix at home for hypertension. BP within acceptable range. Continue home meds #Hx of Intracranial Hemorrhage Continue Levetiracetam #Deconditioning PT/OT consult placed - recommend 24/7 care. CM following during his course of stay. [] PT f/u to reeval - recs 24/7 care either at SNF or at home with home health depending on family choice. CM informed. #GERD Continue Protonix #COPD Continue home inhaler Diet:Easy to chew DVT PPx:SCDs Dispo:awaiting placement for SNF Code Status:DNR/DNI (2) Acute hepatic encephalopathy: (3) Alcoholic cirrhosis of liver: (4) GERD (gastroesophageal reflux disease): (5) Hypertension: (6) COPD (chronic obstructive pulmonary disease): Admission and Anticipated Discharge Date Admission Date: July 23, 2022 Supervising Physician Co-Signing Physician Notes I personally examined the patient and verified all lebron points of history and exam, discussed case, and agree with decision making with Dr Hernandez similar conversation to yesterday - wants to go home but doesn't really seem oriented to current situation vitals noted nad heent nc at mmm breathing unlabored no accessory muscles good effort skin no rashes no pallor or icterus Delirium likely secondary to hepatic encephalopathy perpetuated by hospital environent - continue rifaximin, lactulose. awaiting placement options - anticipate SNF otherwise as above Subjective NAEO. More alert and interactive this morning. Still unable to tell me his name, where he is, or time of day. Answers basic questions appropriately. No pain, no SOB. Had BMs yesterday. Review of Systems Review of Systems: as per HPI Physical Exam Physical Exam: General: 71-year old male who is alert and more interactive than previous days, but still not oriented to person/place/time/event. HEENT: NCAT. - Eyes - Sclera are white, anicteric, and without injection. - Mouth - MMM - Neck - supple, no appreciable JVD Cardiac: Normal rate and regular rhythm; S1 and S2 present with no murmurs, rubs, or gallops. Pulmonary: Good respiratory effort with symmetric expansion of the chest. No use of accessory muscles. Lungs were clear to auscultation bilaterally with no crackles or wheezes. Abdominal: Normoactive bowel sounds. Abdomen was soft, nondistended, and non- tender to palpation. Results & Data Results & Data ([facility]) Vital Signs (Past 12 Hours) Vital Signs Temp Pulse Resp BP Pulse Ox O2 Del Method 07/30/22 21:16 36.6 C 65 12 128/67 94 Room Air Resident Activity Tracking Resident Involvement: Resident Care Provided Care Provided: Adult Hospital Medicine
[2022-07-31] MEDS: PANTOprazole 40 MG TAB PO SCH ×2 (08:16→19:43)
[2022-07-31] MEDS: MULTIVITAMIN TAB PO SCH (08:16)
[2022-07-31] MEDS: CHOLECALCIFEROL 1,000 UNITS 25 MCG TAB PO SCH (08:16)
[2022-07-31] MEDS: FUROSEMIDE 40 MG TAB PO SCH ×2 (08:16→17:37)
[2022-07-31] MEDS: levETIRAcetam 500 MG TAB PO SCH ×2 (08:16→19:43)
[2022-07-31] MEDS: FERROUS SULFATE 325 MG TAB PO SCH ×2 (08:16→19:42)
[2022-07-31] MEDS: LACTULOSE SYRUP 30 GM/45 ML UDP PO SCH ×4 (08:17→19:43)
[2022-07-31] MEDS: UMECLIDINIUM/VILANTEROL 62.5/25MCG 7 PUFFS/INHALER INH SCH (08:17)
[2022-07-31] MEDS: rifAXIMin 550 MG TABLET PO SCH ×2 (08:17→19:44)
[2022-07-31 08:27] LABS: Albumin Globulin Ratio 0.8 (0.9-2); Albumin Level 2.7 gm/dl (3.4-5.0); BUN Creatinine Ratio 18.9 (10-20); Bilirubin,Total 1.9 mg/dl (0.2-1.0); Calcium 8.1 mg/dl (8.5-10.1); Creatinine Clr Calc Pharmacy 70.4 ml/min; Est GFR (African American) 93.6 ml/min; Est GFR (Non-African American) 80.8 ml/min; Globulin 3.3 gm/dl (2.5-4.0); Potassium 3.4 mmol/L (3.5-5.1)
[2022-07-31] MEDS: POTASSIUM CHLORIDE CRTAB 20 MEQ TABCR PO SCH (10:45)
--- NOTE | 2022-07-31 13:04 | Billing Data ---
Date of Service July 31, 2022 Coding Level of Care Code 09407 Subseq Hosp Care Lvl 1
[2022-07-31] MEDS: MELATONIN 3 MG TAB PO SCH (17:37)
--- NOTE | 2022-08-01 07:16 | Hospitalist Progress Note ---
Date of Service August 01, 2022 Assessment & Plan (1) Acute alteration in mental status: Plan: Plan Mr. Fortune is a 71 y/o M with PMH of intracranial hemorrhage, alcohol induced cirrhosis, atrial fibrillation, insomnia, gout, carotid artery stenosis, COPD, who was admitted to the hospital for altered mental status. 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 His presentation is largely unchanged from previous admission. His confusion is secondary to hepatic encephalopathy with possible component of superimposed delirium. #Altered Mental Status: Secondary to Hepatic Encephalopathy with Superimposed Hyperactive Delirium Patient has a known history of alcoholic cirrhosis with previous instances of HE. Admitted with hyperammonemia at 156. CT Head and CXR without acute changes. CT Head did show white matter hypodensities suggest chronic microvascular ischemic disease, left temporoparietal encephalomalacia re-demonstrated, and cerebral vascular calcifications. Utox negative. UA negative. Baseline mentation - struggles with word finding but is able to communicate more fully and can perform some of his daily activities of living independently. Continue lactulose with a goal of 2-3 soft formed BMs a day. Continue rifaximin. [] Continue lactulose 30 gm QID, max dose of lactulose - goal 2-3 BM (spoke w/ RN to ensure updated EMR) [] Continue rifaximin [] Continue Lasix for now - monitor/replete lytes PRN [] PT f/u to reeval - recs 24/7 care either at SNF or at home with home health depending on family choice. CM informed. [] Delirium precautions. Schedule melatonin 3mg [id number] #Hyponatremia - 127 on admission. Now resolved. Likely related to cirrhosis. Monitor with BMP. #Hypokalemia - with ongoing Lasix. Schedule KCl 40 mEq daily and recheck levels q2d while here until stabilized on regimen. #Liver Cirrhosis Patient has a known history of alcoholic cirrhosis. MELD 18. Continue to monitor. #Atrial Fibrillation Rate controlled. Patient is not on anticoagulation due to recent intraparenchymal hemorrhage #Hypertension Patient on lisinopril and Lasix at home for hypertension. BP within acceptable range. Continue home meds #Hx of Intracranial Hemorrhage Continue Levetiracetam #Deconditioning PT/OT consult placed - recommend 24/7 care. CM following during his course of stay. [] PT f/u to reeval - recs 12/05 care either at SNF or at home with home health depending on family choice. CM informed. #GERD Continue Protonix #COPD Continue home inhaler Diet:Easy to chew DVT PPx:SCDs Dispo:awaiting placement for SNF Code Status:DNR/DNI (2) Acute hepatic encephalopathy: (3) Alcoholic cirrhosis of liver: (4) GERD (gastroesophageal reflux disease): (5) Hypertension: (6) COPD (chronic obstructive pulmonary disease): Admission and Anticipated Discharge Date Admission Date: July 23, 2022 Supervising Physician Co-Signing Physician Notes I personally examined the patient and verified all lebron points of history and exam, discussed case, and agree with decision making with Dr Hernandez needs help owen ortgea vitals noted nad heent nc at mmm breathing unlabored no accessory muscles good effort skin no rashes no pallor or icterus Delirium likely secondary to hepatic encephalopathy perpetuated by hospital environment - continue rifaximin, lactulose. awaiting placement options - anticipate SNF once bed available otherwise as above Subjective NAEO. Feeling fine this morning. No complaints. Eager to leave the hospital. Denies pain. No SOB. Limited hx due to ongoing encephalopathy. Review of Systems Review of Systems: as per HPI Physical Exam Physical Exam: General: 71-year old male who is alert and more interactive than previous days, but still not oriented to person/place/time/event. HEENT: NCAT. - Eyes - Sclera are white, anicteric, and without injection. - Mouth - MMM - Neck - supple, no appreciable JVD Cardiac: Normal rate and regular rhythm; S1 and S2 present with no murmurs, rubs, or gallops. Pulmonary: Good respiratory effort with symmetric expansion of the chest. No use of accessory muscles. Lungs were clear to auscultation bilaterally with no crackles or wheezes. Abdominal: Normoactive bowel sounds. Abdomen was soft, nondistended, and non- tender to palpation. Results & Data Results & Data ([facility]) Vital Signs (Past 12 Hours) Vital Signs Temp Pulse Resp BP Pulse Ox O2 Del Method 07/31/22 23:08 36.7 C 82 18 112/52 L 91 Room Air 07/31/22 19:40 Room Air Resident Activity Tracking Resident Involvement: Resident Care Provided Care Provided: Adult [place] [facility] Medicine
[2022-08-01] MEDS: MULTIVITAMIN TAB PO SCH (08:37)
[2022-08-01] MEDS: FERROUS SULFATE 325 MG TAB PO SCH ×2 (08:37→19:45)
[2022-08-01] MEDS: CHOLECALCIFEROL 1,000 UNITS 25 MCG TAB PO SCH (08:37)
[2022-08-01] MEDS: FUROSEMIDE 40 MG TAB PO SCH ×2 (08:37→17:02)
[2022-08-01] MEDS: rifAXIMin 550 MG TABLET PO SCH ×2 (08:37→19:47)
[2022-08-01] MEDS: POTASSIUM CHLORIDE CRTAB 20 MEQ TABCR PO SCH (08:37)
[2022-08-01] MEDS: levETIRAcetam 500 MG TAB PO SCH ×2 (08:37→19:46)
[2022-08-01] MEDS: PANTOprazole 40 MG TAB PO SCH ×2 (08:37→19:46)
[2022-08-01] MEDS: LACTULOSE SYRUP 30 GM/45 ML UDP PO SCH ×4 (08:38→19:46)
[2022-08-01] MEDS: UMECLIDINIUM/VILANTEROL 62.5/25MCG 7 PUFFS/INHALER INH SCH (09:44)
[2022-08-01] MEDS: MELATONIN 3 MG TAB PO SCH (17:02)
--- NOTE | 2022-08-01 19:03 | Billing Data ---
Date of Service August 01, 2022 Coding Level of Care Code 15848 Subseq Hosp Care Lvl 1
[2022-08-02 07:08] LABS: BUN Creatinine Ratio 21.8 (10-20); Calcium 8.2 mg/dl (8.5-10.1); Creatinine Clr Calc Pharmacy 88.1 ml/min; Est GFR (Non-African American) 91.5 ml/min; Potassium 3.5 mmol/L (3.5-5.1)
[2022-08-02] MEDS: UMECLIDINIUM/VILANTEROL 62.5/25MCG 7 PUFFS/INHALER INH SCH (08:11)
[2022-08-02] MEDS: FERROUS SULFATE 325 MG TAB PO SCH ×2 (08:11→20:40)
[2022-08-02] MEDS: MULTIVITAMIN TAB PO SCH (08:11)
[2022-08-02] MEDS: rifAXIMin 550 MG TABLET PO SCH ×2 (08:11→20:41)
[2022-08-02] MEDS: CHOLECALCIFEROL 1,000 UNITS 25 MCG TAB PO SCH (08:11)
[2022-08-02] MEDS: LACTULOSE SYRUP 30 GM/45 ML UDP PO SCH ×4 (08:11→20:40)
[2022-08-02] MEDS: FUROSEMIDE 40 MG TAB PO SCH ×2 (08:11→16:30)
[2022-08-02] MEDS: PANTOprazole 40 MG TAB PO SCH ×2 (08:11→20:41)
[2022-08-02] MEDS: POTASSIUM CHLORIDE CRTAB 20 MEQ TABCR PO SCH (08:11)
[2022-08-02] MEDS: levETIRAcetam 500 MG TAB PO SCH ×2 (08:11→20:40)
[2022-08-02] MEDS: MELATONIN 3 MG TAB PO SCH (17:19)
--- NOTE | 2022-08-02 17:46 | Hospitalist Progress Note ---
Date of Service August 02, 2022 Assessment & Plan (1) Acute alteration in mental status: Plan: Plan Mr. Fortune is a 71 y/o M with PMH of intracranial hemorrhage, alcohol induced cirrhosis, atrial fibrillation, insomnia, gout, carotid artery stenosis, COPD, who was admitted to the hospital for altered mental status. 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 His presentation is largely unchanged from previous admission. His confusion is secondary to hepatic encephalopathy with possible component of superimposed delirium. #Altered Mental Status: Secondary to Hepatic Encephalopathy with Superimposed Hyperactive Delirium Patient has a known history of alcoholic cirrhosis with previous instances of HE. Admitted with hyperammonemia at 156. CT Head and CXR without acute changes. CT Head did show white matter hypodensities suggest chronic microvascular ischemic disease, left temporoparietal encephalomalacia re-demonstrated, and cerebral vascular calcifications. Utox negative. UA negative. Baseline mentation - struggles with word finding but is able to communicate more fully and can perform some of his daily activities of living independently. Continue lactulose with a goal of 2-3 soft formed BMs a day. Continue rifaximin. [] Continue lactulose 30 gm QID, max dose of lactulose - goal 2-3 BM [] Continue rifaximin [] Continue Lasix for now - monitor/replete lytes PRN [] PT f/u to reeval - recs 12/05 care either at SNF or at home with home health depending on family choice. CM informed. [] Delirium precautions. Schedule melatonin 3mg [id number] #Hyponatremia - 127 on admission. Now resolved. Likely related to cirrhosis. Monitor with BMP periodically. Today 139 #Hypokalemia - with ongoing Lasix. Potassium today 3.5 #Liver Cirrhosis Patient has a known history of alcoholic cirrhosis. MELD 18. Continue to monitor. #Atrial Fibrillation Rate controlled. Patient is not on anticoagulation due to recent intraparenchymal hemorrhage #Hypertension Patient on lisinopril and Lasix at home for hypertension. BP reasonable given situation #Hx of Intracranial Hemorrhage Continue Levetiracetam #Deconditioning For SNF once bed available #GERD Continue Protonix #COPD Continue home inhaler Diet:Easy to chew DVT PPx:SCDs Dispo:awaiting placement for SNF Code Status:DNR/DNI Admission and Anticipated Discharge Date Admission Date: July 23, 2022 Subjective Yet again no meaningful HPI or review of systems. Still awaiting placement. Still wants to go home, still really does not know where he is. Review of Systems Review of Systems: All systems reviewed & are unremarkable except as noted in HPI & below Physical Exam Physical Exam: General he is awake and disoriented pleasant no distress. HEENT normocephalic atraumatic mucous membranes moist. Breathing unlabored no accessory muscle use good effort. Skin shows no rashes no pallor or icterus. Neuro without focal deficits. Results & Data Results & Data ([facility]) Vital Signs (Past 12 Hours) Vital Signs Temp Pulse Resp BP Pulse Ox O2 Del Method 08/02/22 14:38 97.7 F 66 17 137/62 96 Room Air 08/02/22 07:33 98.4 F 64 18 116/63 94 Room Air PG Care Time/CCT Total # of Minutes Spent Total Time Spent with Patient: Total time spent is greater than 50% in coordination of care (as documented) at patient's floor/unit and/or counseling patient: Coding Level of Care Code 90663 Subseq Hosp Care Lvl 1 Diagnoses Acute alteration in mental status R41.82
--- NOTE | 2022-08-03 07:50 | Hospitalist Progress Note ---
Date of Service August 03, 2022 Assessment & Plan (1) Acute alteration in mental status: Plan: Nicolás is a 71 y/o M with hx of intracranial hemorrhage, alcohol induced cirrhosis, atrial fibrillation, insomnia, gout, carotid artery stenosis, COPD, who was admitted to the hospital for altered mental status. His presentation was unchanged from previous admission. His confusion is secondary to hepatic encephalopathy with possible component of superimposed delirium. Altered Mental Status: 2/2 Hepatic Encephalopathy w/ Superimposed Hyperactive Delirium Baseline mentation - struggles with word finding but is able to communicate more fully and can perform some of his daily activities of living independently. - Know hx of alcoholic cirrhosis with previous HE - Admitted d/t hyperammonemia of 156 - CT Head and CXR w/o acute change - Utox negative. UA negative. - Continue Lactulose with a goal of 2-3 soft formed stools a day - Continue Rifaximin. - Continue Lasix - recheck BMP in AM - Delirium precautions ongoing - Continue melatonin 3mg [id number] Hyponatremia - 127 on admission. Now resolved. - Likely related to cirrhosis. Monitor with BMP. Hypokalemia - Ongoing Lasix. - Schedule KCl 40 mEq daily and recheck levels q2d while here until stabilized on regimen. Liver Cirrhosis - Patient has a known history of alcoholic cirrhosis. - MELD 18. - Continue to monitor. Atrial Fibrillation - Rate controlled. - Patient is not on anticoagulation due to recent intraparenchymal hemorrhage Hypertension - Patient on lisinopril and Lasix at home for hypertension. - BP within acceptable range. - Continue home meds Hx of Intracranial Hemorrhage - Continue Levetiracetam Deconditioning - PT f/u to reeval - recs 12/05 care either at SNF or at home with home health depending on family choice. CM informed. GERD - Continue Protonix COPD - Continue home inhaler (2) Acute hepatic encephalopathy: (3) Alcoholic cirrhosis of liver: (4) GERD (gastroesophageal reflux disease): (5) Hypertension: (6) COPD (chronic obstructive pulmonary disease): Plan Diet:Easy to chew DVT PPx:SCDs only d/t intracranial hemorrhage hx Dispo:awaiting placement for SNF Code Status:DNR/DNI Admission and Anticipated Discharge Date Admission Date: July 23, 2022 Supervising Physician Co-Signing Physician Notes I personally examined the patient and verified all lebron points of history and exam, discussed case, and agree with decision making with Dr Chisholm No new complaints. Still would like to go home. Still waiting on SNF. vitals noted nad heent nc at mmm breathing unlabored no accessory muscles good effort skin no rashes no pallor or icterus Delirium likely secondary to hepatic encephalopathy perpetuated by hospital environment - continue rifaximin, lactulose. awaiting placement options - anticipate SNF once bed available, overall stable otherwise as above Subjective Nicolás is a 71 y/o M with PMH of intracranial hemorrhage, alcohol induced cirrhosis, atrial fibrillation, insomnia, gout, carotid artery stenosis, COPD, who was admitted to the hospital for altered mental status. 08/03/21: - Conversive this morning requesting to see his children - Denies headaches, lightheadedness, or blurred vision - Denies abdominal pain, chest pain, or shortness of breath - Endorses random episodes of reflux/burning - Does not know where he is or why, but wants to go home Review of Systems Review of Systems: as per HPI Physical Exam Physical Exam: Gen: NAD, alert, conversive, disoriented Neuro: AO x 1, no focal neurologic deficits Resp:Non-labored, no wheezing/rhonchi/rales, CTAB CV:irregularly irregular, normal S1/S2, no M/R/G Abd: Soft, non-distended, no TTP, normoactive bowels, no masses Extr: 2+ dp bilaterally, no edema Skin: No rashes lesions or erythema, no jaundice Results & Data Results & Data ([facility]) Vital Signs (Past 12 Hours) Vital Signs Temp Pulse Resp BP BP Pulse Ox O2 Del Method 08/03/22 07:33 36.8 C 62 16 154/76 H 95 Room Air 08/02/22 20:40 Room Air 08/02/22 21:25 36.6 C 71 17 120/61 94 Room Air Resident Activity Tracking Resident Involvement: Resident Care Provided Care Provided: Adult Hospital Medicine
[2022-08-03] MEDS: FUROSEMIDE 40 MG TAB PO SCH ×2 (07:58→17:21)
[2022-08-03] MEDS: POTASSIUM CHLORIDE CRTAB 20 MEQ TABCR PO SCH (08:02)
[2022-08-03] MEDS: PANTOprazole 40 MG TAB PO SCH ×2 (08:02→19:56)
[2022-08-03] MEDS: MULTIVITAMIN TAB PO SCH (08:02)
[2022-08-03] MEDS: FERROUS SULFATE 325 MG TAB PO SCH ×2 (08:02→19:55)
[2022-08-03] MEDS: CHOLECALCIFEROL 1,000 UNITS 25 MCG TAB PO SCH (08:02)
[2022-08-03] MEDS: LACTULOSE SYRUP 30 GM/45 ML UDP PO SCH ×4 (08:03→19:57)
[2022-08-03] MEDS: levETIRAcetam 500 MG TAB PO SCH ×2 (08:03→19:55)
[2022-08-03] MEDS: UMECLIDINIUM/VILANTEROL 62.5/25MCG 7 PUFFS/INHALER INH SCH (08:03)
[2022-08-03] MEDS: rifAXIMin 550 MG TABLET PO SCH ×2 (08:03→19:56)
--- NOTE | 2022-08-03 16:28 | Billing Data ---
Date of Service August 03, 2022 Coding Level of Care Code 87010 Subseq Hosp Care Lvl 1
[2022-08-03] MEDS: MELATONIN 3 MG TAB PO SCH (17:21)
[2022-08-04 07:49] LABS: BUN Creatinine Ratio 19.6 (10-20); Calcium 8.1 mg/dl (8.5-10.1); Creatinine Clr Calc Pharmacy 74.7 ml/min; Est GFR (African American) 97.3 ml/min; Potassium 3.7 mmol/L (3.5-5.1)
--- NOTE | 2022-08-04 07:56 | Hospitalist Progress Note ---
Date of Service August 04, 2022 Assessment & Plan (1) Acute alteration in mental status: Plan: Nicolás is a 71 y/o M with hx of intracranial hemorrhage, alcohol induced cirrhosis, atrial fibrillation, insomnia, gout, carotid artery stenosis, COPD, who was admitted to the hospital for altered mental status. His presentation was unchanged from previous admission. His confusion is secondary to hepatic encephalopathy with possible component of superimposed delirium. Altered Mental Status: 2/2 Hepatic Encephalopathy w/ Superimposed Hyperactive Delirium Baseline mentation - struggles with word finding but is able to communicate more fully and can perform some of his daily activities of living independently. - Know hx of alcoholic cirrhosis with previous HE - Admitted d/t hyperammonemia of 156 - CT Head and CXR w/o acute change - Utox negative. UA negative. - Continue Lactulose with a goal of 2-3 soft formed stools a day - Continue Rifaximin. - Continue Lasix - recheck BMP in AM - Delirium precautions ongoing - Continue melatonin 3mg [id number] ---Pending Placement Hyponatremia - 127 on admission. Now resolved. - Likely related to cirrhosis. Monitor with BMP. Hypokalemia - Ongoing Lasix. - Schedule KCl 40 mEq daily and recheck levels q2d while here until stabilized on regimen. Liver Cirrhosis - Patient has a known history of alcoholic cirrhosis. - MELD 18. - Continue to monitor. Atrial Fibrillation - Rate controlled. - Patient is not on anticoagulation due to recent intraparenchymal hemorrhage Hypertension - Patient on lisinopril and Lasix at home for hypertension. - BP within acceptable range. - Continue home meds Hx of Intracranial Hemorrhage - Continue Levetiracetam Deconditioning - PT f/u to reeval - recs 12/05 care either at SNF or at home with home health depending on family choice. CM informed. GERD - Continue Protonix COPD - Continue home inhaler (2) Acute hepatic encephalopathy: (3) Alcoholic cirrhosis of liver: (4) GERD (gastroesophageal reflux disease): (5) Hypertension: (6) COPD (chronic obstructive pulmonary disease): Plan Diet:Easy to chew DVT PPx:SCDs only d/t intracranial hemorrhage hx Dispo:awaiting placement for SNF Code Status:DNR/DNI Admission and Anticipated Discharge Date Admission Date: July 23, 2022 Supervising Physician Co-Signing Physician Notes I personally examined the patient and verified all lebron points of history and exam, discussed case, and agree with decision making with Dr Chisholm sleeping comfortably. no new issues. Still waiting on SNF. vitals noted nad at rest heent nc at mmm breathing unlabored no accessory muscles good effort skin no rashes no pallor or icterus Delirium likely secondary to hepatic encephalopathy perpetuated by hospital environment - continue rifaximin, lactulose. awaiting placement options - anticipate SNF once bed available, overall stable, BMP stable otherwise as above Douglas Monzon is a 71 y/o M with PMH of intracranial hemorrhage, alcohol induced cirrhosis, atrial fibrillation, insomnia, gout, carotid artery stenosis, COPD, who was admitted to the hospital for altered mental status. 08/04/21: - No meaningful HPI or ROS - Does not know where he is or why, but wants to go home Review of Systems Review of Systems: as per HPI Physical Exam Physical Exam: Gen: NAD, alert, disoriented Neuro: AO x 1, no focal neurologic deficits Resp:Non-labored, no wheezing/rhonchi/rales, CTAB CV:irregularly irregular, normal S1/S2, no M/R/G Abd: Soft, non-distended, no TTP, normoactive bowels, no masses Extr: 2+ dp bilaterally, no edema Skin: No rashes lesions or erythema, no jaundice Results & Data Results & Data ([facility]) Vital Signs (Past 12 Hours) Vital Signs Temp Pulse Resp BP BP Pulse Ox O2 Del Method 08/04/22 07:31 36.9 C 75 16 123/60 91 Room Air 08/03/22 22:06 36.9 C 79 18 134/64 96 Room Air Resident Activity Tracking Resident Involvement: Resident Care Provided Care Provided: Adult Hospital Medicine
[2022-08-04] MEDS: PANTOprazole 40 MG TAB PO SCH ×2 (08:24→20:09)
[2022-08-04] MEDS: FUROSEMIDE 40 MG TAB PO SCH ×2 (08:24→17:21)
[2022-08-04] MEDS: MULTIVITAMIN TAB PO SCH (08:24)
[2022-08-04] MEDS: LACTULOSE SYRUP 30 GM/45 ML UDP PO SCH ×4 (08:24→20:08)
[2022-08-04] MEDS: UMECLIDINIUM/VILANTEROL 62.5/25MCG 7 PUFFS/INHALER INH SCH (08:24)
[2022-08-04] MEDS: CHOLECALCIFEROL 1,000 UNITS 25 MCG TAB PO SCH (08:24)
[2022-08-04] MEDS: FERROUS SULFATE 325 MG TAB PO SCH ×2 (08:25→20:08)
[2022-08-04] MEDS: POTASSIUM CHLORIDE CRTAB 20 MEQ TABCR PO SCH (08:25)
[2022-08-04] MEDS: levETIRAcetam 500 MG TAB PO SCH ×2 (08:25→20:08)
[2022-08-04] MEDS: rifAXIMin 550 MG TABLET PO SCH ×2 (08:25→20:09)
--- NOTE | 2022-08-04 16:03 | Billing Data ---
Date of Service August 04, 2022 Coding Level of Care Code 19966 Subseq Hosp Care Lvl 1
[2022-08-04] MEDS: MELATONIN 3 MG TAB PO SCH (17:21)
--- NOTE | 2022-08-05 06:49 | Hospitalist Progress Note ---
Date of Service August 05, 2022 Assessment & Plan (1) Acute alteration in mental status: Plan: Nicolás is a 71 y/o M with hx of intracranial hemorrhage, alcohol induced cirrhosis, atrial fibrillation, insomnia, gout, carotid artery stenosis, COPD, who was admitted to the hospital for altered mental status. His presentation was unchanged from previous admission. His confusion is secondary to hepatic encephalopathy with possible component of superimposed delirium. Altered Mental Status: 2/2 Hepatic Encephalopathy w/ Superimposed Hyperactive Delirium Baseline mentation - struggles with word finding but is able to communicate more fully and can perform some of his daily activities of living independently. - Know hx of alcoholic cirrhosis with previous HE - Admitted d/t hyperammonemia of 156 - CT Head and CXR w/o acute change - Utox negative. UA negative. - Continue Lactulose with a goal of 2-3 soft formed stools a day - Continue Rifaximin. - Continue Lasix - recheck BMP tomorrow in AM labs - Delirium precautions ongoing - Continue melatonin 3mg [id number] ---Pending Placement Hyponatremia - 127 on admission. Now resolved. - Likely related to cirrhosis. Monitor with BMP. Liver Cirrhosis - Patient has a known history of alcoholic cirrhosis. - MELD 18. - Continue to monitor. Atrial Fibrillation - Rate controlled. - Patient is not on anticoagulation due to recent intraparenchymal hemorrhage Hypertension - Patient on lisinopril and Lasix at home for hypertension. - BP within acceptable range. - Continue home meds Hx of Intracranial Hemorrhage - Continue Levetiracetam Deconditioning - PT f/u to reeval - recs 12/05 care either at SNF or at home with home health depending on family choice. CM informed. GERD - Continue Protonix COPD - Continue home inhaler (2) Acute hepatic encephalopathy: (3) Alcoholic cirrhosis of liver: (4) GERD (gastroesophageal reflux disease): (5) Hypertension: (6) COPD (chronic obstructive pulmonary disease): Plan Diet:Easy to chew DVT PPx:SCDs only d/t intracranial hemorrhage hx Dispo:awaiting placement for SNF Code Status:DNR/DNI Admission and Anticipated Discharge Date Admission Date: July 23, 2022 Supervising Physician Co-Signing Physician Notes Resident Physician Supervision Note: I independently interviewed and examined the patient and verified the lebron history and physical, reviewed labs and image studies and agree with resident findings and care plan. Subjective Patient was seen bedside this AM. He is A&Ox1 (self only). No complaints or issues at this time. States that he wants to "get rid of my daughter and do it on my own." Review of Systems Review of Systems: All systems reviewed & are unremarkable except as noted in HPI & below Physical Exam Constitutional: + altered mental status Eyes: PERRL, conjunctivae normal, anicteric sclerae Respiratory: normal respiratory effort, lungs clear to auscultation Cardiovascular: Rate/Rhythm: + irregularly irregular Heart Sounds: normal S1 and normal S2 Gastrointestinal (Abdomen): normal bowel sounds, soft, nontender, no hepatosplenomegaly Musculoskeletal: no cyanosis or clubbing, extremities motor strength 5/5 Skin: no rashes, warm and dry Psychiatric: Orientation: oriented to person; + not oriented to place and + not oriented to time Lymphatic: no cervical or axillary lymphadenopathy Results & Data Results & Data ([facility]) Vital Signs (Past 12 Hours) Vital Signs Temp Pulse Resp BP Pulse Ox O2 Del Method 08/04/22 22:47 36.8 C 72 16 100/53 L 93 Room Air 08/04/22 20:05 Room Air Resident Activity Tracking Resident Involvement: Resident Care Provided Care Provided: Adult Hospital Medicine
[2022-08-05] MEDS: POTASSIUM CHLORIDE CRTAB 20 MEQ TABCR PO SCH (07:47)
[2022-08-05] MEDS: FUROSEMIDE 40 MG TAB PO SCH ×2 (07:47→17:35)
[2022-08-05] MEDS: levETIRAcetam 500 MG TAB PO SCH ×2 (07:47→19:57)
[2022-08-05] MEDS: FERROUS SULFATE 325 MG TAB PO SCH ×2 (07:47→19:56)
[2022-08-05] MEDS: CHOLECALCIFEROL 1,000 UNITS 25 MCG TAB PO SCH (07:47)
[2022-08-05] MEDS: rifAXIMin 550 MG TABLET PO SCH ×2 (07:47→19:57)
[2022-08-05] MEDS: PANTOprazole 40 MG TAB PO SCH ×2 (07:47→19:57)
[2022-08-05] MEDS: MULTIVITAMIN TAB PO SCH (07:48)
[2022-08-05] MEDS: LACTULOSE SYRUP 30 GM/45 ML UDP PO SCH ×4 (07:48→19:56)
[2022-08-05] MEDS: UMECLIDINIUM/VILANTEROL 62.5/25MCG 7 PUFFS/INHALER INH SCH (07:48)
[2022-08-05] MEDS: MELATONIN 3 MG TAB PO SCH (17:36)
--- NOTE | 2022-08-06 07:33 | Hospitalist Progress Note ---
Date of Service August 06, 2022 Assessment & Plan (1) Acute alteration in mental status: Plan: Nicolás is a 71 y/o M with hx of intracranial hemorrhage, alcohol induced cirrhosis, atrial fibrillation, insomnia, gout, carotid artery stenosis, COPD, who was admitted to the hospital for altered mental status. His presentation was unchanged from previous admission. His confusion is secondary to hepatic encephalopathy with possible component of superimposed delirium. Altered Mental Status: 2/2 Hepatic Encephalopathy w/ Superimposed Hyperactive Delirium Baseline mentation - struggles with word finding but is able to communicate more fully and can perform some of his daily activities of living independently. - Know hx of alcoholic cirrhosis with previous HE - Admitted d/t hyperammonemia of 156 - CT Head and CXR w/o acute change - Utox negative. UA negative. - Continue Lactulose with a goal of 2-3 soft formed stools a day - Continue Rifaximin. - Continue Lasix - recheck BMP tomorrow in AM labs - Delirium precautions ongoing - Continue melatonin 3mg [id number] - Patient continues to be Pending Placement. Talked with CM and daughter today about possibly intermodal truck driver placement due to not having anyone at home to help with his care. Hyponatremia - 127 on admission. Now resolved. Has been normal (137-139) since 07/28. - Can hold off on checking BMP specifically for sodium at this time. - Recommend repeat BMP one week after D/C. Liver Cirrhosis - Patient has a known history of alcoholic cirrhosis. - MELD 18. - Continue to monitor. Atrial Fibrillation - Rate controlled. - Patient is not on anticoagulation due to recent intraparenchymal hemorrhage Hypertension - Patient on lisinopril and Lasix at home for hypertension. - BP within acceptable range. - Continue home meds Hx of Intracranial Hemorrhage - Continue Levetiracetam Deconditioning - PT f/u to reeval - recs 12/05 care either at SNF or at home with home health d epending on family choice. CM informed. 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 Subjective Patient was seen bedside this AM. He is A&Ox1 (self only). No complaints or issues at this time. States that he wants to get out of here. Physical Exam Constitutional: + altered mental status Eyes: PERRL, conjunctivae normal, anicteric sclerae Respiratory: normal respiratory effort, lungs clear to auscultation Cardiovascular: Rate/Rhythm: + irregularly irregular Heart Sounds: normal S1 and normal S2 Gastrointestinal (Abdomen): normal bowel sounds, soft, nontender, no hepatosplenomegaly Musculoskeletal: no cyanosis or clubbing, extremities motor strength 5/5 Skin: no rashes, warm and dry Psychiatric: Orientation: oriented to person; + not oriented to place and + not oriented to time Lymphatic: no cervical or axillary lymphadenopathy Results & Data Results & Data ([facility]) Vital Signs (Past 12 Hours) Vital Signs Temp Pulse Resp BP BP Pulse Ox O2 Del Method 08/06/22 06:18 36.8 C 62 18 157/73 H 96 Room Air 08/05/22 19:55 Room Air 08/05/22 22:15 36.5 C 61 18 108/68 96 Room Air Resident Activity Tracking Resident Involvement: Resident Care Provided Care Provided: Adult Hospital Medicine
[2022-08-06 08:56] LABS: BUN Creatinine Ratio 21.7 (10-20); Calcium 8.3 mg/dl (8.5-10.1); Creatinine Clr Calc Pharmacy 82.8 ml/min; Est GFR (African American) 103.3 ml/min; Est GFR (Non-African American) 89.2 ml/min; Potassium 3.6 mmol/L (3.5-5.1)
[2022-08-06] MEDS: FUROSEMIDE 40 MG TAB PO SCH ×2 (09:00→17:48)
[2022-08-06] MEDS: MULTIVITAMIN TAB PO SCH (09:00)
[2022-08-06] MEDS: PANTOprazole 40 MG TAB PO SCH ×2 (09:00→20:43)
[2022-08-06] MEDS: LACTULOSE SYRUP 30 GM/45 ML UDP PO SCH ×4 (09:01→20:43)
[2022-08-06] MEDS: levETIRAcetam 500 MG TAB PO SCH ×2 (09:01→20:42)
[2022-08-06] MEDS: CHOLECALCIFEROL 1,000 UNITS 25 MCG TAB PO SCH (09:01)
[2022-08-06] MEDS: POTASSIUM CHLORIDE CRTAB 20 MEQ TABCR PO SCH (09:01)
[2022-08-06] MEDS: FERROUS SULFATE 325 MG TAB PO SCH ×2 (09:01→20:43)
[2022-08-06] MEDS: UMECLIDINIUM/VILANTEROL 62.5/25MCG 7 PUFFS/INHALER INH SCH (09:01)
[2022-08-06] MEDS: rifAXIMin 550 MG TABLET PO SCH ×2 (09:01→20:43)
[2022-08-06] MEDS: MELATONIN 3 MG TAB PO SCH (18:28)
[2022-08-07] MEDS: PANTOprazole 40 MG TAB PO SCH ×2 (08:48→20:51)
[2022-08-07] MEDS: levETIRAcetam 500 MG TAB PO SCH ×2 (08:48→20:51)
[2022-08-07] MEDS: MULTIVITAMIN TAB PO SCH (08:48)
[2022-08-07] MEDS: UMECLIDINIUM/VILANTEROL 62.5/25MCG 7 PUFFS/INHALER INH SCH (08:48)
[2022-08-07] MEDS: FERROUS SULFATE 325 MG TAB PO SCH ×2 (08:48→20:50)
[2022-08-07] MEDS: CHOLECALCIFEROL 1,000 UNITS 25 MCG TAB PO SCH (08:48)
[2022-08-07] MEDS: POTASSIUM CHLORIDE CRTAB 20 MEQ TABCR PO SCH (08:48)
[2022-08-07] MEDS: rifAXIMin 550 MG TABLET PO SCH ×2 (08:48→20:51)
[2022-08-07] MEDS: FUROSEMIDE 40 MG TAB PO SCH ×2 (08:48→17:33)
[2022-08-07] MEDS: LACTULOSE SYRUP 30 GM/45 ML UDP PO SCH ×4 (08:49→20:49)
--- NOTE | 2022-08-07 12:06 | Hospitalist Progress Note ---
Date of Service August 07, 2022 Assessment & Plan (1) Acute alteration in mental status: Plan: Nicolás is a 71 y/o M with hx of intracranial hemorrhage, alcohol induced cirrhosis, atrial fibrillation, insomnia, gout, carotid artery stenosis, COPD, who was admitted to the hospital for altered mental status. His presentation was unchanged from previous admission. His confusion is secondary to hepatic encephalopathy with possible component of superimposed delirium. Altered Mental Status: 2/2 Hepatic Encephalopathy w/ Superimposed Hyperactive Delirium Baseline mentation - struggles with word finding but is able to communicate more fully and can perform some of his daily activities of living independently. - Know hx of alcoholic cirrhosis with previous HE - Admitted d/t hyperammonemia of 156 - CT Head and CXR w/o acute change - Utox negative. UA negative. - Continue Lactulose with a goal of 2-3 soft formed stools a day - Continue Rifaximin. - Continue Lasix - recheck BMP tomorrow in AM labs - Delirium precautions ongoing - Continue melatonin 3mg [id number] Hyponatremia - 127 on admission. Now resolved. Has been normal (137-139) since 07/28. - Can hold off on checking BMP specifically for sodium at this time. - Recommend repeat BMP one week after D/C. Liver Cirrhosis - Patient has a known history of alcoholic cirrhosis. - MELD 18. - Continue to monitor. Atrial Fibrillation - Rate controlled. - Patient is not on anticoagulation due to recent intraparenchymal hemorrhage Hypertension - Patient on lisinopril and Lasix at home for hypertension. - BP within acceptable range. - Continue home meds Hx of Intracranial Hemorrhage - Continue Levetiracetam Deconditioning - PT f/u to reeval - recs 12/05 care either at SNF or at home with home health depending on family choice. CM informed. GERD - Continue Protonix COPD - Continue home inhaler Diet:Easy to chew DVT PPx:SCDs only d/t intracranial hemorrhage hx Dispo:awaiting placement for SNF/grommet man placement - Patient continues to be Pending Placement. Talked with CM and daughter today about possibly detention placement due to not having anyone at home to help with his care. - Patient continues to be pending placement on 08/07. Code Status:DNR/DNI (2) Acute hepatic encephalopathy: (3) Alcoholic cirrhosis of liver: (4) GERD (gastroesophageal reflux disease): (5) Hypertension: (6) COPD (chronic obstructive pulmonary disease): Admission and Anticipated Discharge Date Admission Date: July 23, 2022 Supervising Physician Co-Signing Physician Notes Resident Physician Supervision Note: I independently interviewed and examined the patient and verified the lebron history and physical, reviewed labs and image studies and agree with resident findings and care plan. Subjective Patient was seen bedside this AM. He is A&Ox1 (self only). No complaints or issues at this time. Wants to go home if able to. Review of Systems Review of Systems: Constitutional: denies fever, chills, fatigue HEENT: denies congestion, sore throat CV: denies chest pain, palpitations Resp: denies shortness of breath, cough GI: denies abdominal pain, nausea, vomiting, constipation, diarrhea : denies pain with urination, change in urinary frequency Neuro: denies new numbness, tingling, weakness Physical Exam Constitutional: + altered mental status Eyes: PERRL, conjunctivae normal, anicteric sclerae Respiratory: normal respiratory effort, lungs clear to auscultation Cardiovascular: Rate/Rhythm: + irregularly irregular Heart Sounds: normal S1 and normal S2 Gastrointestinal (Abdomen): normal bowel sounds, soft, nontender, no hepatosplenomegaly Musculoskeletal: no cyanosis or clubbing, extremities motor strength 5/5 Skin: no rashes, warm and dry Psychiatric: Orientation: oriented to person; + not oriented to place and + not oriented to time Lymphatic: no cervical or axillary lymphadenopathy Results & Data Results & Data ([facility]) Vital Signs (Past 12 Hours) Vital Signs Temp Pulse Resp BP Pulse Ox O2 Del Method 08/07/22 07:21 36.7 C 84 16 126/64 93 Room Air Resident Activity Tracking Resident Involvement: Resident Care Provided Care Provided: Adult Hospital Medicine
[2022-08-07] MEDS: MELATONIN 3 MG TAB PO SCH (18:28)
[2022-08-08] MEDS: CHOLECALCIFEROL 1,000 UNITS 25 MCG TAB PO SCH (08:45)
[2022-08-08] MEDS: LACTULOSE SYRUP 30 GM/45 ML UDP PO SCH ×4 (08:45→20:43)
[2022-08-08] MEDS: POTASSIUM CHLORIDE CRTAB 20 MEQ TABCR PO SCH (08:45)
[2022-08-08] MEDS: FUROSEMIDE 40 MG TAB PO SCH ×2 (08:45→17:41)
[2022-08-08] MEDS: PANTOprazole 40 MG TAB PO SCH ×2 (08:45→20:43)
[2022-08-08] MEDS: levETIRAcetam 500 MG TAB PO SCH ×2 (08:45→20:44)
[2022-08-08] MEDS: MULTIVITAMIN TAB PO SCH (08:45)
[2022-08-08] MEDS: rifAXIMin 550 MG TABLET PO SCH ×2 (08:45→20:43)
[2022-08-08] MEDS: FERROUS SULFATE 325 MG TAB PO SCH ×2 (08:45→20:43)
[2022-08-08] MEDS: UMECLIDINIUM/VILANTEROL 62.5/25MCG 7 PUFFS/INHALER INH SCH (08:45)
--- NOTE | 2022-08-08 15:05 | Hospitalist Progress Note ---
Date of Service August 08, 2022 Assessment & Plan (1) Acute alteration in mental status: Plan: Nicolás is a 71 y/o M with hx of intracranial hemorrhage, alcohol induced cirrhosis, atrial fibrillation, insomnia, gout, carotid artery stenosis, COPD, who was admitted to the hospital for altered mental status. His presentation was unchanged from previous admission. His confusion is secondary to hepatic encephalopathy with possible component of superimposed delirium. Altered Mental Status: 2/2 Hepatic Encephalopathy w/ Superimposed Hyperactive Delirium Baseline mentation - struggles with word finding but is able to communicate more fully and can perform some of his daily activities of living independently. - Know hx of alcoholic cirrhosis with previous HE - Admitted d/t hyperammonemia of 156 - CT Head and CXR w/o acute change - Utox negative. UA negative. - Continue Lactulose with a goal of 2-3 soft formed stools a day - Continue Rifaximin. - Continue Lasix - recheck BMP tomorrow in AM labs - Delirium precautions ongoing - Continue melatonin 3mg [id number] - Patient continues to be Pending Placement. Talked with CM and daughter today about possibly termite exterminator placement due to not having anyone at home to help with his care. - Patient continues to be pending placement on 08/08. Hyponatremia - 127 on admission. Now resolved. Has been normal (137-139) since 07/28. - Can hold off on checking BMP specifically for sodium at this time. - Recommend repeat BMP one week after D/C. Liver Cirrhosis - Patient has a known history of alcoholic cirrhosis. - MELD 18. - Continue to monitor. Atrial Fibrillation - Rate controlled. - Patient is not on anticoagulation due to recent intraparenchymal hemorrhage Hypertension - Patient on lisinopril and Lasix at home for hypertension. - BP within acceptable range. - Continue home meds Hx of Intracranial Hemorrhage - Continue Levetiracetam Deconditioning - PT f/u to reeval - recs 12/05 care either at SNF or at home with home health depending on family choice. CM informed. 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 Subjective Patient was seen bedside this AM. He is A&Ox1 (self only). No complaints or issues at this time. Review of Systems Review of Systems: Constitutional: denies fever, chills, fatigue HEENT: denies congestion, sore throat CV: denies chest pain, palpitations Resp: denies shortness of breath, cough GI: denies abdominal pain, nausea, vomiting, constipation, diarrhea : denies pain with urination, change in urinary frequency Neuro: denies new numbness, tingling, weakness Physical Exam Constitutional: + altered mental status Eyes: PERRL, conjunctivae normal, anicteric sclerae Respiratory: normal respiratory effort, lungs clear to auscultation Cardiovascular: Rate/Rhythm: + irregularly irregular Heart Sounds: normal S1 and normal S2 Gastrointestinal (Abdomen): normal bowel sounds, soft, nontender, no hepatosplenomegaly Musculoskeletal: no cyanosis or clubbing, extremities motor strength 5/5 Skin: no rashes, warm and dry Psychiatric: Orientation: oriented to person; + not oriented to place and + not oriented to time Lymphatic: no cervical or axillary lymphadenopathy Results & Data Results & Data ([facility]) Vital Signs (Past 12 Hours) Vital Signs Temp Pulse Resp BP Pulse Ox O2 Del Method 08/08/22 14:57 36.4 C L 59 L 16 125/68 96 Room Air 08/08/22 07:12 36.7 C 50 L 16 145/74 H 95 Room Air Resident Activity Tracking Resident Involvement: Resident Care Provided Care Provided: Adult Hospital Medicine
[2022-08-08] MEDS: MELATONIN 3 MG TAB PO SCH (18:28)
--- NOTE | 2022-08-09 07:48 | Hospitalist Progress Note ---
Date of Service August 09, 2022 Assessment & Plan (1) Acute alteration in mental status: Plan: Nicolás is a 71 y/o M with hx of intracranial hemorrhage, alcohol induced cirrhosis, atrial fibrillation, insomnia, gout, carotid artery stenosis, COPD, who was admitted to the hospital for altered mental status. His presentation was unchanged from previous admission. His confusion is secondary to hepatic encephalopathy with possible component of superimposed delirium. Altered Mental Status: 2/2 Hepatic Encephalopathy w/ Superimposed Hyperactive Delirium Baseline mentation - struggles with word finding but is able to communicate more fully and can perform some of his daily activities of living independently. - Know hx of alcoholic cirrhosis with previous HE - Admitted d/t hyperammonemia of 156 - CT Head and CXR w/o acute change - Utox negative. UA negative. - Continue Lactulose with a goal of 2-3 soft formed stools a day - Continue Rifaximin. - Continue Lasix - recheck BMP tomorrow in AM labs - Delirium precautions ongoing - Continue melatonin 3mg [id number] - Patient continues to be Pending Placement. Talked with CM and daughter today about possibly terminologist placement due to not having anyone at home to help with his care. - Patient continues to be pending placement on 08/09. Hyponatremia - 127 on admission. Now resolved. Has been normal (137-139) since 07/28. - Can hold off on checking BMP specifically for sodium at this time. - Recommend repeat BMP one week after D/C. If patient is staying pending placement. Will plan to check BMP on the week of 08/12. Liver Cirrhosis - Patient has a known history of alcoholic cirrhosis. - MELD 18. - Continue to monitor. Atrial Fibrillation - Rate controlled. - Patient is not on anticoagulation due to recent intraparenchymal hemorrhage Hypertension - Patient on lisinopril and Lasix at home for hypertension. - BP within acceptable range. - Continue home meds Hx of Intracranial Hemorrhage - Continue Levetiracetam Deconditioning - PT f/u to reeval - recs 12/05 care either at SNF or at home with home health depending on family choice. CM informed. GERD - Continue Protonix COPD - Continue home inhaler Diet:Easy to chew DVT PPx:SCDs only d/t intracranial hemorrhage hx Dispo:awaiting placement for SNF/snf placement Code Status:DNR/DNI (2) Acute hepatic encephalopathy: (3) Alcoholic cirrhosis of liver: (4) GERD (gastroesophageal reflux disease): (5) Hypertension: (6) COPD (chronic obstructive pulmonary disease): Admission and Anticipated Discharge Date Admission Date: July 23, 2022 Supervising Physician Co-Signing Physician Notes Resident Physician Supervision Note: I independently interviewed and examined the patient and verified the lebron history and physical, reviewed labs and image studies and agree with resident findings and care plan. Subjective Patient was seen bedside this AM. He is A&Ox1 (self only). No complaints at this time. Stated that he wanted to "get mother to go home". Review of Systems Review of Systems: Unobtainable due to mental health condition Physical Exam Constitutional: + altered mental status Eyes: PERRL, conjunctivae normal, anicteric sclerae Respiratory: normal respiratory effort, lungs clear to auscultation Cardiovascular: Rate/Rhythm: + irregularly irregular Heart Sounds: normal S1 and normal S2 Gastrointestinal (Abdomen): normal bowel sounds, soft, nontender, no hepatosplenomegaly Musculoskeletal: no cyanosis or clubbing, extremities motor strength 5/5 Skin: no rashes, warm and dry Psychiatric: Orientation: oriented to person; + not oriented to place and + not oriented to time Lymphatic: no cervical or axillary lymphadenopathy Results & Data Results & Data ([facility]) Vital Signs (Past 12 Hours) Vital Signs Temp Pulse Resp BP Pulse Ox O2 Del Method 08/08/22 22:42 36.6 C 62 18 132/76 96 Room Air 08/08/22 20:49 Room Air Resident Activity Tracking Resident Involvement: Resident Care Provided Care Provided: Adult Hospital Medicine
[2022-08-09] MEDS: FUROSEMIDE 40 MG TAB PO SCH ×2 (09:35→18:06)
[2022-08-09] MEDS: FERROUS SULFATE 325 MG TAB PO SCH ×2 (09:36→20:14)
[2022-08-09] MEDS: CHOLECALCIFEROL 1,000 UNITS 25 MCG TAB PO SCH (09:36)
[2022-08-09] MEDS: LACTULOSE SYRUP 30 GM/45 ML UDP PO SCH ×4 (09:36→20:14)
[2022-08-09] MEDS: MULTIVITAMIN TAB PO SCH (09:37)
[2022-08-09] MEDS: levETIRAcetam 500 MG TAB PO SCH ×2 (09:37→20:14)
[2022-08-09] MEDS: PANTOprazole 40 MG TAB PO SCH ×2 (09:37→20:14)
[2022-08-09] MEDS: POTASSIUM CHLORIDE CRTAB 20 MEQ TABCR PO SCH (09:38)
[2022-08-09] MEDS: rifAXIMin 550 MG TABLET PO SCH ×2 (09:39→20:14)
[2022-08-09] MEDS: UMECLIDINIUM/VILANTEROL 62.5/25MCG 7 PUFFS/INHALER INH SCH (09:39)
[2022-08-09] MEDS: MELATONIN 3 MG TAB PO SCH (20:14)
--- NOTE | 2022-08-10 07:11 | Hospitalist Progress Note ---
Date of Service August 10, 2022 Assessment & Plan (1) Acute alteration in mental status: Plan: Nicolás is a 71 y/o M with hx of intracranial hemorrhage, alcohol induced cirrhosis, atrial fibrillation, insomnia, gout, carotid artery stenosis, COPD, who was admitted to the hospital for altered mental status. His presentation was unchanged from previous admission. His confusion is secondary to hepatic encephalopathy with possible component of superimposed delirium. Altered Mental Status: 2/2 Hepatic Encephalopathy w/ Superimposed Hyperactive Delirium Baseline mentation - struggles with word finding but is able to communicate more fully and can perform some of his daily activities of living independently. - Know hx of alcoholic cirrhosis with previous HE - Admitted d/t hyperammonemia of 156 - CT Head and CXR w/o acute change - Utox negative. UA negative. - Continue Lactulose with a goal of 2-3 soft formed stools a day - Continue Rifaximin. - Continue Lasix - recheck BMP tomorrow in AM labs - Delirium precautions ongoing - Continue melatonin 3mg [id number] - Patient continues to be Pending Placement on 08/10. Looking into ferry terminal supervisor placement that provides 24/7 care. Hyponatremia - 127 on admission. Now resolved. Has been normal (137-139) since 07/28. - Recommend repeat BMP one week after D/C. If patient is staying pending placem ent, will check BMP a week after his last BMP on 08/06 Liver Cirrhosis - Patient has a known history of alcoholic cirrhosis. - MELD 18. - Continue to monitor. Atrial Fibrillation - Rate controlled. - Patient is not on anticoagulation due to recent intraparenchymal hemorrhage Hypertension - Patient on lisinopril and Lasix at home for hypertension. - BP within acceptable range. - Continue home meds Hx of Intracranial Hemorrhage - Continue Levetiracetam Deconditioning - PT f/u to reeval - recs 24/7 care either at SNF or at home with home health depending on family choice. CM informed. GERD - Continue Protonix COPD - Continue home inhaler Diet:Easy to chew DVT PPx:SCDs only d/t intracranial hemorrhage hx Dispo:awaiting placement for SNF/ferry terminal supervisor placement Code Status:DNR/DNI (2) Alcoholic cirrhosis of liver: (3) GERD (gastroesophageal reflux disease): (4) Hypertension: (5) COPD (chronic obstructive pulmonary disease): Admission and Anticipated Discharge Date Admission Date: July 23, 2022 Supervising Physician Co-Signing Physician Notes Resident Physician Supervision Note: I independently interviewed and examined the patient and verified the lebron history and physical, reviewed labs and image studies and agree with resident findings and care plan. Subjective Patient was seen bedside this AM. He is A&Ox1 (self only). No complaints at this time. Stated that he wanted to his daughter to come get him. Review of Systems Review of Systems: Unobtainable due to cognitive status Physical Exam Constitutional: + altered mental status, cooperative and comfortable Respiratory: normal respiratory effort, lungs clear to auscultation Cardiovascular: Rate/Rhythm: + irregularly irregular Heart Sounds: normal S1 and normal S2 Gastrointestinal (Abdomen): normal bowel sounds, soft, nontender, no hepatosplenomegaly Musculoskeletal: no cyanosis or clubbing, extremities motor strength 5/5 Skin: no rashes, warm and dry Psychiatric: Orientation: oriented to person; + not oriented to place and + not oriented to time Results & Data Results & Data ([facility]) Vital Signs (Past 12 Hours) Vital Signs Temp Pulse Resp BP Pulse Ox O2 Del Method 08/09/22 22:00 36.5 C 55 L 18 131/45 L 96 Room Air 08/09/22 20:14 Room Air Resident Activity Tracking Resident Involvement: Resident Care Provided Care Provided: Adult Hospital Medicine
[2022-08-10] MEDS: rifAXIMin 550 MG TABLET PO SCH ×2 (07:40→20:11)
[2022-08-10] MEDS: levETIRAcetam 500 MG TAB PO SCH ×2 (07:40→20:11)
[2022-08-10] MEDS: MULTIVITAMIN TAB PO SCH (07:41)
[2022-08-10] MEDS: PANTOprazole 40 MG TAB PO SCH ×2 (07:41→20:11)
[2022-08-10] MEDS: CHOLECALCIFEROL 1,000 UNITS 25 MCG TAB PO SCH (07:41)
[2022-08-10] MEDS: POTASSIUM CHLORIDE CRTAB 20 MEQ TABCR PO SCH (07:41)
[2022-08-10] MEDS: LACTULOSE SYRUP 30 GM/45 ML UDP PO SCH ×4 (07:42→20:11)
[2022-08-10] MEDS: FERROUS SULFATE 325 MG TAB PO SCH ×2 (07:42→20:11)
[2022-08-10] MEDS: UMECLIDINIUM/VILANTEROL 62.5/25MCG 7 PUFFS/INHALER INH SCH (07:43)
[2022-08-10] MEDS: FUROSEMIDE 40 MG TAB PO SCH ×2 (09:25→15:58)
[2022-08-10] MEDS: MELATONIN 3 MG TAB PO SCH (20:11)
--- NOTE | 2022-08-11 06:57 | Hospitalist Progress Note ---
Date of Service August 11, 2022 Assessment & Plan (1) Acute alteration in mental status: Plan: Nicolás is a 71 y/o M with hx of intracranial hemorrhage, alcohol induced cirrhosis, atrial fibrillation, insomnia, gout, carotid artery stenosis, COPD, who was admitted to the hospital for altered mental status. His presentation was unchanged from previous admission. His confusion is secondary to hepatic encephalopathy with possible component of superimposed delirium. Altered Mental Status: 2/2 Hepatic Encephalopathy w/ Superimposed Hyperactive Delirium Baseline mentation - struggles with word finding but is able to communicate more fully and can perform some of his daily activities of living independently. - Know hx of alcoholic cirrhosis with previous HE - Admitted d/t hyperammonemia of 156 - CT Head and CXR w/o acute change - Utox negative. UA negative. - Continue Lactulose with a goal of 2-3 soft formed stools a day - Continue Rifaximin. - Continue Lasix - recheck BMP tomorrow in AM labs - Delirium precautions ongoing - Continue melatonin 3mg [id number] - Patient continues to be Pending Placement on 08/11. Looking into rat exterminator placement that provides 12/05 care. Will reach out to case management and patient's daughter on Sunday 08/12. Hyponatremia - resolved - 127 on admission. Now resolved. Has been normal (137-139) since 07/28. - Recommend repeat BMP one week after D/C. If patient is staying pending placement, will check BMP a week after his last BMP on 08/06 Liver Cirrhosis - Patient has a known history of alcoholic cirrhosis. - MELD 18. - Continue to monitor. Atrial Fibrillation - Rate controlled. - Patient is not on anticoagulation due to recent intraparenchymal hemorrhage Hypertension - Patient on lisinopril and Lasix at home for hypertension. - BP within acceptable range. - Continue home meds Hx of Intracranial Hemorrhage - Continue Levetiracetam Deconditioning - PT f/u to reeval - recs 24/ care either at SNF or at home with home health depending on family choice. CM informed. GERD - Continue Protonix COPD - Continue home inhaler Diet:Easy to chew DVT PPx:SCDs only d/t intracranial hemorrhage hx Dispo:awaiting placement for SNF/rat exterminator placement Code Status:DNR/DNI (2) Alcoholic cirrhosis of liver: (3) GERD (gastroesophageal reflux disease): (4) Hypertension: (5) COPD (chronic obstructive pulmonary disease): Admission and Anticipated Discharge Date Admission Date: July 23, 2022 Supervising Physician Co-Signing Physician Notes Resident Physician Supervision Note: I independently interviewed and examined the patient and verified the lebron history and physical, reviewed labs and image studies and agree with resident findings and care plan. Subjective Patient was seen bedside this AM. He is A&Ox1 (self only). No complaints at this time. Review of Systems Review of Systems: Unobtainable due to cognitive status Physical Exam Constitutional: + altered mental status, cooperative and comfortable Respiratory: normal respiratory effort, lungs clear to auscultation Cardiovascular: Rate/Rhythm: + irregularly irregular Heart Sounds: normal S1 and normal S2 Gastrointestinal (Abdomen): normal bowel sounds, soft, nontender, no hepatosplenomegaly Musculoskeletal: no cyanosis or clubbing, extremities motor strength 5/5 Skin: no rashes, warm and dry Psychiatric: Orientation: oriented to person; + not oriented to place and + not oriented to time Results & Data Results & Data ([facility]) Vital Signs (Past 12 Hours) Vital Signs Temp Pulse Resp BP Pulse Ox O2 Del Method 08/10/22 21:58 36.8 C 63 18 122/55 L 95 Room Air 08/10/22 20:00 Room Air Resident Activity Tracking Resident Involvement: Resident Care Provided Care Provided: Adult Hospital Medicine
[2022-08-11] MEDS: POTASSIUM CHLORIDE CRTAB 20 MEQ TABCR PO SCH (09:16)
[2022-08-11] MEDS: FERROUS SULFATE 325 MG TAB PO SCH ×2 (09:16→20:37)
[2022-08-11] MEDS: rifAXIMin 550 MG TABLET PO SCH ×2 (09:17→20:37)
[2022-08-11] MEDS: MULTIVITAMIN TAB PO SCH (09:17)
[2022-08-11] MEDS: CHOLECALCIFEROL 1,000 UNITS 25 MCG TAB PO SCH (09:17)
[2022-08-11] MEDS: PANTOprazole 40 MG TAB PO SCH ×2 (09:18→20:37)
[2022-08-11] MEDS: UMECLIDINIUM/VILANTEROL 62.5/25MCG 7 PUFFS/INHALER INH SCH (09:18)
[2022-08-11] MEDS: levETIRAcetam 500 MG TAB PO SCH ×2 (09:18→20:38)
[2022-08-11] MEDS: FUROSEMIDE 40 MG TAB PO SCH ×2 (09:19→17:37)
[2022-08-11] MEDS: LACTULOSE SYRUP 30 GM/45 ML UDP PO SCH ×4 (09:19→20:36)
[2022-08-11] MEDS: MELATONIN 3 MG TAB PO SCH (20:36)
--- NOTE | 2022-08-12 07:30 | Hospitalist Progress Note ---
Date of Service August 12, 2022 Assessment & Plan (1) Acute alteration in mental status: Plan: Nicolás is a 71 y/o M with hx of intracranial hemorrhage, alcohol induced cirrhosis, atrial fibrillation, insomnia, gout, carotid artery stenosis, COPD, who was admitted to the hospital for altered mental status. His presentation was unchanged from previous admission. His confusion is secondary to hepatic encephalopathy with possible component of superimposed delirium. Unarousable -Patient was unarousable in the morning and afternoon. -CBC, procalcitonin, magnesium, CMP, and phosphorus were all unremarkable. -Ammonia was 103. 108 back on 07/27. Admitted with hyperammonemia of 156. -Given lactulose 200Gm enema Q8H. Once patient is able to tolerate oral intake will switch to oral. -If patient is still unarousable then will investigate further. Altered Mental Status: 2/2 Hepatic Encephalopathy w/ Superimposed Hyperactive Delirium Baseline mentation - struggles with word finding but is able to communicate more fully and can perform some of his daily activities of living independently. - Know hx of alcoholic cirrhosis with previous HE - Admitted d/t hyperammonemia of 156 - CT Head and CXR w/o acute change - Utox negative. UA negative. - Continue Lactulose with a goal of 2-3 soft formed stools a day - Continue Rifaximin. - Continue Lasix - Delirium precautions ongoing - Continue melatonin 3mg [id number] - Patient continues to be Pending Placement on 08/12. Looking into brasswind instrument repairer placement that provides 24/ care. Will see if patient is a candidate for dementia rehab. Hyponatremia - resolved - 127 on admission. Now resolved. Has been normal since (141 on 08/12). - Recommend repeat BMP one week after D/C. Liver Cirrhosis - Patient has a known history of alcoholic cirrhosis. - MELD 18. - Continue to monitor. Atrial Fibrillation - Rate controlled. - Patient is not on anticoagulation due to recent intraparenchymal hemorrhage Hypertension - Patient on lisinopril and Lasix at home for hypertension. - BP within acceptable range. - Continue home meds Hx of Intracranial Hemorrhage - Continue Levetiracetam Deconditioning - PT f/u to reeval - recs 24/ care either at SNF or at home with home health depending on family choice. CM informed. GERD - Continue Protonix COPD - Continue home inhaler Diet:Easy to chew DVT PPx:SCDs only d/t intracranial hemorrhage hx Dispo:awaiting placement for SNF/fci placement Code Status:DNR/DNI (2) Alcoholic cirrhosis of liver: (3) GERD (gastroesophageal reflux disease): (4) Hypertension: (5) COPD (chronic obstructive pulmonary disease): (6) Patient unarousable: Admission and Anticipated Discharge Date Admission Date: July 23, 2022 Supervising Physician Co-Signing Physician Notes I personally examined the patient and verified all lebron points of history and exam, discussed case, and agree with decision making with Dr Paredes No meaningful HPI review of systems obtainable. Quite somnolent. Vitals noted, in general he is densely asleep responds some with the groans to noxious stim, does not appear to be in any pain or respiratory distress. HEENT normocephalic atraumatic mucous membranes moist. Cardio is regular without rubs murmurs or gallops. Lungs are clear to auscultation bilaterally no rales rhonchi or wheeze with good effort. Abdomen is soft he seems to have mild right upper quadrant tenderness but no guarding rebound or rigidity the rest of his abdomen is benign. No distention or fluid wave. No asymmetric muscle tone or lateralizing signs neurologically. He almost seems to have a degree of asterixis with passive range of motion, however. No noted clonus. Altered mental statuswith ammonia up, and no other clear signs or symptoms of other pathologypresumed to be worsening hepatic encephalopathy. Lactulose enemas for now, if he does not respond, can work-up further, but this seems to be the most likely culprit. Otherwise as above Subjective Patient was seen beside this AM. Patient is resting with no apparent acute s tress but is not arousable. Repeat checking on the patient later in the day shows similar presentation. Review of Systems Review of Systems: Unobtainable due to reduced consciousness Physical Exam Eyes: PERRL Respiratory: normal respiratory effort, lungs clear to auscultation Cardiovascular: RRR, no murmur, no edema Gastrointestinal (Abdomen): Percussion/Palpation: abdomen soft; abdomen nontender Skin: no rashes, warm and dry Results & Data Results & Data ([facility]) Vital Signs (Past 12 Hours) Vital Signs Temp Pulse Resp BP BP Pulse Ox O2 Del Method 08/12/22 07:08 36.4 C L 84 16 143/74 H 97 Room Air 08/11/22 22:29 36.5 C 81 18 122/53 L 93 Room Air Resident Activity Tracking Resident Involvement: Resident Care Provided Care Provided: Adult Hospital Medicine
[2022-08-12 10:10] LABS: Albumin Globulin Ratio 0.8 (0.9-2); Albumin Level 2.8 gm/dl (3.4-5.0); Bilirubin,Total 2.9 mg/dl (0.2-1.0); Calcium 8.5 mg/dl (8.5-10.1); Creatinine Clr Calc Pharmacy 76.4 ml/min; Est GFR (African American) 99.9 ml/min; Est GFR (Non-African American) 86.2 ml/min; Globulin 3.6 gm/dl (2.5-4.0); Potassium 3.6 mmol/L (3.5-5.1); Total Protein 6.4 gm/dl (6.0-8.3)
[2022-08-12] MEDS: CHOLECALCIFEROL 1,000 UNITS 25 MCG TAB PO SCH (12:16)
[2022-08-12] MEDS: FERROUS SULFATE 325 MG TAB PO SCH ×2 (12:16→22:15)
[2022-08-12] MEDS: FUROSEMIDE 40 MG TAB PO SCH ×2 (12:16→17:47)
[2022-08-12] MEDS: LACTULOSE SYRUP 30 GM/45 ML UDP PO SCH ×4 (12:16→21:37)
[2022-08-12] MEDS: MULTIVITAMIN TAB PO SCH (12:17)
[2022-08-12] MEDS: PANTOprazole 40 MG TAB PO SCH ×2 (12:17→22:15)
[2022-08-12] MEDS: POTASSIUM CHLORIDE CRTAB 20 MEQ TABCR PO SCH (12:17)
[2022-08-12] MEDS: levETIRAcetam 500 MG TAB PO SCH ×2 (12:17→22:16)
[2022-08-12] MEDS: rifAXIMin 550 MG TABLET PO SCH ×2 (12:17→22:15)
[2022-08-12] MEDS: UMECLIDINIUM/VILANTEROL 62.5/25MCG 7 PUFFS/INHALER INH SCH (12:18)
[2022-08-12 12:41] LABS: Albumin Globulin Ratio 0.8 (0.9-2); Albumin Level 2.9 gm/dl (3.4-5.0); BUN Creatinine Ratio 19.1 (10-20); Bilirubin,Total 3.2 mg/dl (0.2-1.0); Calcium 8.7 mg/dl (8.5-10.1); Creatinine Clr Calc Pharmacy 73.1 ml/min; Est GFR (African American) 94.8 ml/min; Est GFR (Non-African American) 81.8 ml/min; Globulin 3.6 gm/dl (2.5-4.0); Magnesium 1.9 mg/dl (1.7-2.4); Phosphorus 3.4 mg/dl (2.5-4.9); Potassium 3.6 mmol/L (3.5-5.1); Total Protein 6.5 gm/dl (6.0-8.3)
[2022-08-12] MEDS ORDERED: LACTULOSE 200GM/700ML WTR ENEMA PR SCH (14:00)
[2022-08-12 14:42] LABS: Hemoglobin 13.9 g/dl (14.0-18.0); Mean Corpuscular Hemoglobin 36.5 pg (25.0-34.0); Mean Corpuscular Hgb Conc 36.6 g/dL (32.0-36.0); Mean Corpuscular Volume 99.7 fL (80.0-100.0); Mean Platelet Volume 10.6 fL (9.4-12.4); Platelet Count 136 K/uL (130-400); RDW Coefficient of Variation 15.4 % (11.5-14.5); RDW Standard Deviation 56.7 fL (36.4-46.3); Red Blood Count 3.81 M/uL (4.63-6.08); White Blood Count 5.14 K/ul (4.8-10.8)
[2022-08-12] MEDS: LACTULOSE 200GM/700ML WTR ENEMA PR SCH ×2 (15:49→22:35)
--- NOTE | 2022-08-12 18:21 | Billing Data ---
Date of Service August 12, 2022 Coding Level of Care Code 51004 Subseq Hosp Care Lvl 3
[2022-08-12] MEDS ORDERED: OPTIRAY 320 500ml IV ONE (20:58)
--- NOTE | 2022-08-12 21:02 | CT Scan Report ---
CT OF THE HEAD WITHOUT CONTRAST CLINICAL HISTORY: Altered mental status. Stroke alert. COMPARISON STUDY: Head CT July 22, 2022. MRI of the brain May 23, 2022. CT DOSE: 691.05 mGy.cm TECHNIQUE: Helical axial images of the head were obtained without IV contrast. Automated exposure con trol was utilized for the study. A dose lowering technique was utilized adhering to the principles o f ALARA. FINDINGS: No acute intracranial hemorrhage, midline shift or mass effect is present. Ventricular syst em is stable. Encephalomalacia within the left temporoparietal region is again noted at site of previ ously described intraparenchymal hematoma. There has been expected evolution of this hematoma. The ap pearance of the brain is similar to prior head CT. No new sites of hemorrhage are present. There are no findings to suggest acute dural sinus thrombosis or acute territorial infarct. Left maxillary sinu s is opacified and diminutive. This is unchanged and chronic. There is no acute calvarial fracture. IMPRESSION: No acute intracranial findings. No significant change in appearance of the brain since h ead CT of July 22, 2022, as described above. ACT 112: Negative or not required by law. Electronically signed by: Karthikeyan Rashid M.D. 08/12/2022 9:00 PM
--- NOTE | 2022-08-12 21:42 | Communication Note ---
Date of Service: August 12, 2022 stroke alert was called for AMS and possible R facial droop and R arm weakness. On my assessment, difficult to appreciate. 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 No obvious droop. conversational but confused. has had decline in mentation last few days, notable per roommate and staff. last known well unknown and w/ hx of brain bleed ~3months ago, likely not tpa candidate ammonia elevated to [address] upgrade to [employer] for neuro checks. expand infectious and encephalopathy workup notified by nursing that patient failed dysphagia screening and is unable to tolerate PO meds. resuming [place] lactulose. repleting K of 3.3. speech eval ordered
[2022-08-12 21:43] LABS: Base Excess ABG 2.4 mEq/L (-9-1.8); HCO3 ABG 25 mmol/L (19-24); PCO2 ABG 30 mmHg (35-46); PO2 ABG 87 mmHg (80-95)
[2022-08-12 21:45] LABS: Basophils # (auto) 0.07 K/uL (0-0.2); Basophils % (auto) 1.3 %; Eosinophils # (auto) 0.26 K/uL (0-0.50); Eosinophils % (auto) 4.7 %; Hematocrit (blood only) 37.9 % (40.1-51.0); Hemoglobin 13.6 g/dl (14.0-18.0); Immature Granulocytes # (auto) 0.03 K/uL (0.00-0.02); Immature Granulocytes % (auto) 0.5 %; Lymphocytes # (auto) 1.24 K/uL (1.2-3.4); Lymphocytes % (auto) 22.3 %; Mean Corpuscular Hemoglobin 36.3 pg (25.0-34.0); Mean Corpuscular Hgb Conc 35.9 g/dL (32.0-36.0); Mean Corpuscular Volume 101.1 fL (80.0-100.0); Mean Platelet Volume 10.1 fL (9.4-12.4); Monocytes # (auto) 0.69 K/uL (0.24-0.82); Monocytes % (auto) 12.4 %; Neutrophils # (auto) 3.27 K/uL (1.4-6.5); Neutrophils % (auto) 58.8 %; Platelet Count 125 K/uL (130-400); RDW Coefficient of Variation 15.3 % (11.5-14.5); RDW Standard Deviation 56.5 fL (36.4-46.3); Red Blood Count 3.75 M/uL (4.63-6.08); White Blood Count 5.56 K/ul (4.8-10.8)
[2022-08-12 21:47] LABS: Allen Test Pos (Pos); pH ABG 7.52 (7.35-7.45)
[2022-08-12] MEDS: MELATONIN 3 MG TAB PO SCH (22:16)
[2022-08-12 22:17] LABS: Albumin Globulin Ratio 0.8 (0.9-2); Albumin Level 2.9 gm/dl (3.4-5.0); BUN Creatinine Ratio 20.8 (10-20); C Reactive Protein 0.66 mg/dl (0-0.5); Calcium 8.8 mg/dl (8.5-10.1); Creatinine Clr Calc Pharmacy 71.6 ml/min; Est GFR (African American) 92.4 ml/min; Est GFR (Non-African American) 79.8 ml/min; Globulin 3.5 gm/dl (2.5-4.0); Potassium 3.3 mmol/L (3.5-5.1); Total Protein 6.4 gm/dl (6.0-8.3)
[2022-08-13] MEDS ORDERED: POTASSIUM CHLORIDE CRTAB 20 MEQ TABCR PO STA (01:09)
[2022-08-13] MEDS: POTASSIUM CHLORIDE / WTR 10 MEQ/100 ML PLCT IV SCH ×4 (03:54→07:58)
[2022-08-13] MEDS: LACTULOSE 200GM/700ML WTR ENEMA PR SCH ×3 (04:48→22:32)
--- NOTE | 2022-08-13 06:57 | Hospitalist Progress Note ---
Date of Service August 13, 2022 Assessment & Plan (1) Acute alteration in mental status: Plan: Nicolás is a 71 y/o M with hx of intracranial hemorrhage, alcohol induced cirrhosis, atrial fibrillation, insomnia, gout, carotid artery stenosis, COPD, who was admitted to the hospital for altered mental status. His presentation was unchanged from previous admission. His confusion is secondary to hepatic encephalopathy with possible component of superimposed delirium. Altered Mental Status: 2/2 Hepatic Encephalopathy w/ Superimposed Hyperactive Delirium Baseline mentation - struggles with word finding but is able to communicate more fully and can perform some of his daily activities of living independently. - Know hx of alcoholic cirrhosis with previous HE - Admitted d/t hyperammonemia of 156 - CT Head and CXR w/o acute change - Utox negative. UA negative. - Continue Lactulose with a goal of 2-3 soft formed stools a day - Continue Rifaximin. - Continue Lasix - Delirium precautions ongoing - Patient was unarousable on 08/12. Ammonia was high at 108. Was started on lactulose Q8h enema. Once patient is able to tolerate oral intake will switch to oral. Stroke alert called on the night of 08/12, CT head and CTA neck/head were negative. -Patient returned to baseline on 08/13. Continue lactuose for the time being - Continue melatonin 3mg [id number] - Patient continues to be Pending Placement on 08/13. [place] [facility] [place] [facility] that provides 24/ care. Will see if patient is a candidate for dementia rehab. Hyperbilirubinemia -Patient is elevated bilirubin @ 4.8 which has been elevated in the past but is increasing at this time. -Patient is also having some slight URQ tenderness on PE -LFT, lipase and US liver ordered. -Lipase and LFT's are within baseline -US liver showed nonvisualization of the gallbladder and common bile duct as well as cirrhosis w/o hepatic mass -Consider CT if symptoms get worse and bilirubin continues to raise. Hyponatremia - resolved - 127 on admission. Now resolved. Has been normal since (141 on 08/12). - Recommend repeat BMP one week after D/C. Liver Cirrhosis - Patient has a known history of alcoholic cirrhosis. - MELD 18. - Continue to monitor. Atrial Fibrillation - Rate controlled. - Patient is not on anticoagulation due to recent intraparenchymal hemorrhage Hypertension - Patient on lisinopril and Lasix at home for hypertension. - BP within acceptable range. - Continue home meds Hx of Intracranial Hemorrhage - Continue Levetiracetam Deconditioning - PT f/u to reeval - recs 12/05 care either at SNF or at home with home health depending on family choice. CM informed. GERD - Continue Protonix COPD - Continue home inhaler Diet:Easy to chew DVT PPx:SCDs only d/t intracranial hemorrhage hx Dispo:awaiting placement for SNF/[place] [facility] [place] Code Status:DNR/DNI (2) Alcoholic cirrhosis of liver: (3) GERD (gastroesophageal reflux disease): (4) Hypertension: (5) COPD (chronic obstructive pulmonary disease): (6) Patient unarousable: Admission and Anticipated Discharge Date Admission Date: July 23, 2022 Supervising Physician Co-Signing Physician Notes I personally examined the patient and verified all lebron points of history and exam, discussed case, and agree with decision making with Dr Paredes No meaningful HPI review of systems obtainable. Today, however, he is awake, trying to talk, keeps on saying that I need to but is not really able to finish his sentence, makes good eye contact and follows. He is holding a cup, although he tries to drink out of the backside of it. Vitals noted, awake and alert disoriented but much closer to his previous mentation, no distress. HEENT normocephalic atraumatic mucous membranes moist. Breathing unlabored no accessory muscle use good effort. Skin shows no rashes no pallor or icterus. Neuro without focal deficits. Mental status as above. Altered mental statuswith ammonia up, and no other clear signs or symptoms of other pathologypresumed to be worsening hepatic encephalopathy. Improving with escalated lactulose. Serial exams, time. Otherwise as above Subjective Patient was seen bedside this AM. Patient is doing better than yesterday. He is back to his baseline and will answer questions but continues to have trouble with word finding. Review of Systems Review of Systems: Unobtainable due to cognitive status Physical Exam Constitutional: + altered mental status, cooperative and comfortable Respiratory: normal respiratory effort, lungs clear to auscultation Cardiovascular: Rate/Rhythm: + irregularly irregular Heart Sounds: normal S1 and normal S2 Gastrointestinal (Abdomen): slight RUQ tenderness on palpation Musculoskeletal: no cyanosis or clubbing, extremities motor strength 5/5 Skin: no rashes, warm and dry Psychiatric: Orientation: oriented to person; + not oriented to place and + not oriented to time Results & Data Results & Data ([facility]) Vital Signs (Past 12 Hours) Vital Signs Temp Pulse Resp BP BP Pulse Ox O2 Del Method 08/13/22 04:03 36.5 C 62 18 166/83 H 93 Room Air 08/13/22 01:16 Room Air 08/12/22 23:11 36.4 C L 68 18 143/63 H 95 Room Air 08/12/22 20:20 71 176/89 H Resident Activity Tracking Resident Involvement: Resident Care Provided Care Provided: Adult Hospital Medicine
--- NOTE | 2022-08-13 07:01 | CT Scan Report ---
CT angio head w con CLINICAL HISTORY: 71 years-old Male with change in mentation. Acutely altered mental status COMPARISON STUDY: CT head of same day TECHNIQUE: Following the IV administration of 114 cc of Optiray, CT angiogram of the brain was perfor med from the skull base to the vertex. Images are reviewed in the axial, sagittal, and coronal planes . 3-D MIPS images are created and assessed. IV contrast was administered without complication. All me asurements were obtained according to NASCET criteria. A dose lowering technique was utilized adherin g to the principles of ALARA. FINDINGS: CT ANGIOGRAM OF THE BRAIN: Motion degraded exam. The imaged bilateral internal carotid arteries are patent. Atherosclerotic plaq ue of the cavernous, clinoid and supraclinoid segments of the internal carotid arteries without high- grade stenosis. The bilateral anterior and middle cerebral arteries are also patent. The vertebrobasi lar system and posterior cerebral arteries are widely patent. origin of the left posterior cere bral artery. There is no aneurysm, high-grade stenosis, or proximal branch occlusion identified. Dura l sinuses appear patent. Encephalomalacia within the left temporoparietal region again noted. IMPRESSION: Unremarkable CTA of the head. ACT 112: Negative or not required by law. The above report was generated using voice recognition software. It may contain grammatical, syntax o r spelling errors. Electronically signed by: Ronald Dyer M.D. 08/13/2022 7:00 AM
[2022-08-13 07:25] LABS: Basophils # (auto) 0.07 K/uL (0-0.2); Basophils % (auto) 1.5 %; Eosinophils # (auto) 0.18 K/uL (0-0.50); Hematocrit (blood only) 40.1 % (40.1-51.0); Hemoglobin 14.6 g/dl (14.0-18.0); Immature Granulocytes # (auto) 0.02 K/uL (0.00-0.02); Immature Granulocytes % (auto) 0.4 %; Lymphocytes # (auto) 0.74 K/uL (1.2-3.4); Lymphocytes % (auto) 16.3 %; Monocytes # (auto) 0.49 K/uL (0.24-0.82); Monocytes % (auto) 10.8 %; Neutrophils # (auto) 3.04 K/uL (1.4-6.5); Platelet Count 128 K/uL (130-400); White Blood Count 4.54 K/ul (4.8-10.8)
--- NOTE | 2022-08-13 07:30 | CT Scan Report ---
CT ANGIOGRAM OF THE NECK CLINICAL HISTORY: Strokelike symptoms. Change in mental status. COMPARISON STUDY: CT angiogram of the neck dated 03/19/2018. TECHNIQUE: Following the IV administration of 114 of Optiray 320, CT angiogram of the neck was perfor med from the aortic arch to the skull base. Images are reviewed in the axial, sagittal, and coronal p lanes. 3-D MIPS images are created and assessed. IV contrast was administered without complication. A ll measurements were calculated based on NASCET criteria. A dose lowering technique was utilized adh ering to the principles of ALARA. The examination is degraded by motion artifact. CT DOSE: 548.90 mGy.cm FINDINGS: Thoracic aorta: There is atherosclerotic calcification of the thoracic aorta. Visualized portions of the thoracic aorta are normal in caliber. The aortic arch demonstrates standard 3-vessel anatomy. Right carotid arterial system: The right common carotid artery is widely patent. There is advanced at herosclerotic plaque in the carotid bulb with no evidence of significant stenosis. There is less than 50% luminal narrowing. The internal and external carotid arteries are patent. Left carotid arterial system: The left common carotid artery is widely patent, as are the left technical support intern al and external carotid arteries. Calcified plaque is noted in the carotid bulb. Vertebral arteries: The vertebral arteries are patent in the neck and codominant. Subclavian arteries: Widely patent bilaterally. Intracranial vasculature: The partially visualized intracranial vessels at the skull base appear rao nt. Jugular veins: Widely patent bilaterally. Brain parenchyma: The visualized brain parenchyma in the posterior fossa is within normal limits. Lung apices: Emphysematous change is noted in the upper lobes. Right apical scarring is unchanged fro 2018. Upper lobe lung parenchyma is otherwise clear as imaged. Soft tissues: The visualized pharyngeal soft tissues are normal in appearance noting angiographic pha se technique. The oropharyngeal airway appears widely patent. The salivary and thyroid glands are nor mal in appearance. No cervical lymphadenopathy is seen. Skeletal structures: The skeletal structures are osteopenic. The visualized calvarium at the skull ba se appears intact. The imaged cervical spine is maintained noting multilevel spondylosis. No lytic or blastic lesion is seen. Sinuses and mastoids: Mucosal thickening is noted in the maxillary antra. The mastoid air cells are w ell pneumatized. IMPRESSION: [address] angiogram of the neck with no evidence of hemodynamically significant carotid steno sis. 2. Emphysema. ACT 112: Negative or not required by law. Electronically signed by: Anuj Dominguez M.D. 08/13/2022 7:28 AM
[2022-08-13 07:36] LABS: INR 1.3 (0.9-1.1); Prothrombin Time 13.6 Seconds (9.0-12.0)
[2022-08-13 07:49] LABS: BUN Creatinine Ratio 21.1 (10-20); Bilirubin Direct 0.9 mg/dl (0-0.2); Calcium 8.9 mg/dl (8.5-10.1); Creatinine Clr Calc Pharmacy 69.4 ml/min; Est GFR (African American) 93.6 ml/min; Est GFR (Non-African American) 80.8 ml/min; Potassium 3.9 mmol/L (3.5-5.1)
[2022-08-13 07:52] LABS: Mean Corpuscular Hemoglobin 36.7 pg (25.0-34.0); Mean Corpuscular Hgb Conc 36.4 g/dL (32.0-36.0); Mean Corpuscular Volume 100.8 fL (80.0-100.0); RDW Coefficient of Variation 15.4 % (11.5-14.5); Red Blood Count 3.98 M/uL (4.63-6.08)
[2022-08-13] MEDS ORDERED: PANTOprazole 40 MG in SYRINGE 0 ML IV SCH (09:00)
[2022-08-13] MEDS ORDERED: FUROSEMIDE INJ 20 MG/2 ML VIAL IV SCH (09:00)
[2022-08-13] MEDS: FUROSEMIDE 40 MG TAB PO SCH ×3 (09:10→16:52)
[2022-08-13] MEDS: CHOLECALCIFEROL 1,000 UNITS 25 MCG TAB PO SCH ×2 (09:10→10:26)
[2022-08-13] MEDS: POTASSIUM CHLORIDE CRTAB 20 MEQ TABCR PO SCH ×3 (09:11→16:53)
[2022-08-13] MEDS: LACTULOSE SYRUP 30 GM/45 ML UDP PO SCH ×5 (09:11→22:13)
[2022-08-13] MEDS: FERROUS SULFATE 325 MG TAB PO SCH ×3 (09:11→22:12)
[2022-08-13] MEDS: rifAXIMin 550 MG TABLET PO SCH ×3 (09:11→22:15)
[2022-08-13] MEDS: MULTIVITAMIN TAB PO SCH ×2 (09:11→10:25)
[2022-08-13] MEDS: UMECLIDINIUM/VILANTEROL 62.5/25MCG 7 PUFFS/INHALER INH SCH (09:11)
[2022-08-13] MEDS ORDERED: levETIRAcetam 500 MG in 0.9 % SODIUM CHLORIDE 100 ML IV SCH (09:30)
[2022-08-13] MEDS: levETIRAcetam 500 MG TAB PO SCH ×2 (10:26→22:14)
[2022-08-13 11:06] LABS: Albumin Level 2.8 gm/dl (3.4-5.0); Bilirubin Direct 1.1 mg/dl (0-0.2); Bilirubin,Total 4.8 mg/dl (0.2-1.0); Total Protein 6.6 gm/dl (6.0-8.3)
--- NOTE | 2022-08-13 15:59 | Ultrasound Report ---
US liver HISTORY: 71 years-old Male ?biliary duct obstruction acute right upper quadrant abdominal pain COMPARISON: CT 07/08/2022 TECHNIQUE: Multiple real-time sonographic images of the abdominal right upper quadrant were obtained assessing grayscale appearance and color flow FINDINGS: The pancreas is obscured by bowel gas. Cirrhotic morphology of the liver redemonstrated with heteroge neous parenchyma. No hepatic mass identified. The main portal vein is also not well visualized. Embol ization of the gallbladder and common bile duct. No intrahepatic biliary ductal dilation identified. The imaged right kidney is unremarkable without hydronephrosis. IMPRESSION: 1. Limited exam secondary to obscuring bowel gas. Nonvisualization of the gallbladder and common bile duct. 2. Cirrhosis without hepatic mass identified. ACT 112: Negative or not required by law. The above report was generated using voice recognition software. It may contain grammatical, syntax o r spelling errors. Electronically signed by: Ronald Dyer M.D. 08/13/2022 3:58 PM
--- NOTE | 2022-08-13 18:17 | Billing Data ---
Date of Service August 13, 2022 Coding Level of Care Code 08450 Subseq Hosp Care Lvl 3
--- NOTE | 2022-08-13 18:18 | Billing Data ---
Date of Service August 13, 2022 Coding Level of Care Code 22498 Subseq Hosp Care Lvl 3
[2022-08-13] MEDS: PANTOprazole 40 MG TAB PO SCH (22:14)
[2022-08-13] MEDS: MELATONIN 3 MG TAB PO SCH (22:32)
[2022-08-14] MEDS: LACTULOSE 200GM/700ML WTR ENEMA PR SCH ×3 (06:27→23:58)
[2022-08-14 08:32] LABS: Basophils # (auto) 0.07 K/uL (0-0.2); Basophils % (auto) 1.6 %; Eosinophils # (auto) 0.22 K/uL (0-0.50); Eosinophils % (auto) 4.9 %; Hematocrit (blood only) 38.1 % (40.1-51.0); Hemoglobin 13.8 g/dl (14.0-18.0); Immature Granulocytes # (auto) 0.01 K/uL (0.00-0.02); Immature Granulocytes % (auto) 0.2 %; Lymphocytes # (auto) 0.72 K/uL (1.2-3.4); Lymphocytes % (auto) 16.1 %; Mean Platelet Volume 10.1 fL (9.4-12.4); Monocytes # (auto) 0.52 K/uL (0.24-0.82); Monocytes % (auto) 11.6 %; Neutrophils # (auto) 2.93 K/uL (1.4-6.5); Neutrophils % (auto) 65.6 %; Platelet Count 124 K/uL (130-400); White Blood Count 4.47 K/ul (4.8-10.8)
[2022-08-14 08:42] LABS: INR 1.3 (0.9-1.1); Prothrombin Time 13.6 Seconds (9.0-12.0)
[2022-08-14 08:57] LABS: Mean Corpuscular Hemoglobin 36.5 pg (25.0-34.0); Mean Corpuscular Hgb Conc 36.2 g/dL (32.0-36.0); Mean Corpuscular Volume 100.8 fL (80.0-100.0); RDW Coefficient of Variation 15.1 % (11.5-14.5); RDW Standard Deviation 55.8 fL (36.4-46.3); Red Blood Count 3.78 M/uL (4.63-6.08)
[2022-08-14 09:10] LABS: Albumin Globulin Ratio 0.8 (0.9-2); Albumin Level 2.9 gm/dl (3.4-5.0); BUN Creatinine Ratio 18.8 (10-20); Bilirubin Direct 0.7 mg/dl (0-0.2); Bilirubin,Total 3.4 mg/dl (0.2-1.0); Calcium 8.5 mg/dl (8.5-10.1); Creatinine Clr Calc Pharmacy 80.2 ml/min; Est GFR (African American) 104.9 ml/min; Est GFR (Non-African American) 90.5 ml/min; Globulin 3.5 gm/dl (2.5-4.0); Potassium 3.5 mmol/L (3.5-5.1); Total Protein 6.4 gm/dl (6.0-8.3)
[2022-08-14] MEDS: FUROSEMIDE 40 MG TAB PO SCH ×2 (09:19→17:40)
[2022-08-14] MEDS: levETIRAcetam 500 MG TAB PO SCH ×2 (09:19→23:22)
[2022-08-14] MEDS: CHOLECALCIFEROL 1,000 UNITS 25 MCG TAB PO SCH (09:19)
[2022-08-14] MEDS: rifAXIMin 550 MG TABLET PO SCH ×2 (09:20→23:22)
[2022-08-14] MEDS: PANTOprazole 40 MG TAB PO SCH ×2 (09:20→23:20)
[2022-08-14] MEDS: lisinopril 5 MG TAB PO SCH (09:20)
[2022-08-14] MEDS: MULTIVITAMIN TAB PO SCH (09:20)
[2022-08-14] MEDS: LACTULOSE SYRUP 30 GM/45 ML UDP PO SCH ×4 (09:21→23:23)
[2022-08-14] MEDS: POTASSIUM CHLORIDE CRTAB 20 MEQ TABCR PO SCH ×3 (09:23→17:42)
[2022-08-14] MEDS: FERROUS SULFATE 325 MG TAB PO SCH ×2 (09:24→23:22)
[2022-08-14] MEDS: UMECLIDINIUM/VILANTEROL 62.5/25MCG 7 PUFFS/INHALER INH SCH (09:25)
--- NOTE | 2022-08-14 17:16 | Hospitalist Progress Note ---
Date of Service August 14, 2022 Assessment & Plan (1) Acute alteration in mental status: Plan: Nicolás is a 71 y/o M with hx of intracranial hemorrhage, alcohol induced cirrhosis, atrial fibrillation, insomnia, gout, carotid artery stenosis, COPD, who was admitted to the hospital for altered mental status. His presentation was unchanged from previous admission. His confusion is secondary to hepatic encephalopathy with possible component of superimposed delirium. Altered Mental Status: 2/2 Hepatic Encephalopathy w/ Superimposed Hyperactive Delirium Baseline mentation - struggles with word finding but is able to communicate more fully and can perform some of his daily activities of living independently. - Know hx of alcoholic cirrhosis with previous HE - Admitted d/t hyperammonemia of 156 - CT Head and CXR w/o acute change - Utox negative. UA negative. - Continue Lactulose with a goal of 2-3 soft formed stools a day - Continue Rifaximin. -Keppra level sent and pending - Delirium precautions ongoing - Continue melatonin 3mg [id number] - Patient continues to be Pending Placement on 08/12. Looking into assisted placement that provides 12/05 care. Will see if patient is a candidate for dementia rehab. Hyponatremia - resolved - 127 on admission. Now resolved. Has been normal since (141 on 08/12). - Recommend repeat BMP periodically Liver Cirrhosis - Patient has a known history of alcoholic cirrhosis. - MELD 18. - Continue to monitor. Atrial Fibrillation - Rate remains controlled. - Patient is not on anticoagulation due to recent intraparenchymal hemorrhage Hypertension - Patient on lisinopril and Lasix at home for hypertension. - BP within acceptable range. - Continue home meds Hx of Intracranial Hemorrhage - Continue Levetiracetam Deconditioning -Awaiting SNF. GERD - Continue Protonix COPD - Continue home inhaler Diet:Easy to chew DVT PPx:SCDs only d/t intracranial hemorrhage hx Dispo:awaiting placement for SNF/assisted placement Code Status:DNR/DNI (2) Alcoholic cirrhosis of liver: (3) GERD (gastroesophageal reflux disease): (4) Hypertension: (5) COPD (chronic obstructive pulmonary disease): (6) Patient unarousable: Admission and Anticipated Discharge Date Admission Date: July 23, 2022 Subjective No meaningful HPI review of systems. Sleeping, later seen walking in [place] with physical therapy. Review of Systems Review of Systems: Unobtainable due to cognitive status Physical Exam Physical Exam: In general he appears in no distress. Breathing unlabored no accessory muscle use. He is walking with a walker whenever I see him working with therapy. No asymmetry or focal neurodeficits. Skin without rashes pallor or icterus. Results & Data Results & Data ([facility]) Vital Signs (Past 12 Hours) Vital Signs Temp Pulse Pulse Resp BP Pulse Ox O2 Del Method 08/14/22 16:24 98.4 F 70 18 143/67 H 96 Room Air 08/14/22 14:17 79 08/14/22 10:36 Room Air 08/14/22 06:07 79 08/14/22 08:28 98.4 F 70 18 128/72 97 PG Care Time/CCT Total # of Minutes Spent Total Time Spent with Patient: Total time spent is greater than 50% in coordination of care (as documented) at patient's floor/unit and/or counseling patient: Coding Level of Care Code 17559 Subseq Hosp Care Lvl 2 Diagnoses Acute alteration in mental status R41.82 Alcoholic cirrhosis of liver K70.30 GERD (gastroesophageal reflux disease) K21.9 Hypertension I10 COPD (chronic obstructive pulmonary disease) J44.9 Patient unarousable R40.20
[2022-08-14] MEDS ORDERED: Nursing to Pharmacy Communication SCH (17:45)
[2022-08-14] MEDS: MELATONIN 3 MG TAB PO SCH (23:20)
--- NOTE | 2022-08-15 06:34 | Hospitalist Progress Note ---
Date of Service August 15, 2022 Assessment & Plan (1) Acute alteration in mental status: Plan: Nicolás is a 71 y/o M with hx of intracranial hemorrhage, alcohol induced cirrhosis, atrial fibrillation, insomnia, gout, carotid artery stenosis, COPD, who was admitted to the hospital for altered mental status. His presentation was unchanged from previous admission. His confusion is secondary to hepatic encephalopathy with possible component of superimposed delirium. Altered Mental Status: 2/2 Hepatic Encephalopathy w/ Superimposed Hyperactive Delirium Baseline mentation - struggles with word finding but is able to communicate more fully and can perform some of his daily activities of living independently. - Know hx of alcoholic cirrhosis with previous HE - Admitted d/t hyperammonemia of 156 - CT Head and CXR w/o acute change - Utox negative. UA negative. - Continue Lactulose with a goal of 2-3 soft formed stools a day - Continue Rifaximin. - Continue Lasix - Delirium precautions ongoing - Patient was unarousable on 08/12. Ammonia was high at 108. Was started on lactulose Q8h enema. Once patient is able to tolerate oral intake will switch to oral. Stroke alert called on the night of 08/12, CT head and CTA neck/head were negative. -Patient returned to baseline on 08/13. Continue lactuose for the time being - Continue melatonin 3mg [id number] - Patient continues to be Pending Placement on 08/15. Looking into skilled nursing placement that provides 24/ care. Will see if patient is a candidate for dementia rehab. Hyperbilirubinemia -Patient is elevated bilirubin @ 4.8 which has been elevated in the past but is increasing at this time. -Patient is also having some slight URQ tenderness on PE -LFT, lipase and US liver ordered. -Lipase and LFT's are within baseline -US liver showed nonvisualization of the gallbladder and common bile duct as well as cirrhosis w/o hepatic mass -Consider CT if symptoms get worse and bilirubin continues to raise. Hyponatremia - resolved - 127 on admission. Now resolved. Has been normal since (141 on 08/12). - Recommend repeat BMP one week after D/C. Liver Cirrhosis - Patient has a known history of alcoholic cirrhosis. - MELD 18. - Continue to monitor. Atrial Fibrillation - Rate controlled. - Patient is not on anticoagulation due to recent intraparenchymal hemorrhage Hypertension - Patient on lisinopril and Lasix at home for hypertension. - BP within acceptable range. - Continue home meds Hx of Intracranial Hemorrhage - Continue Levetiracetam Deconditioning - PT f/u to reeval - recs 12/05 care either at SNF or at home with home health depending on family choice. CM informed. GERD - Continue Protonix COPD - Continue home inhaler Diet:Easy to chew DVT PPx:SCDs only d/t intracranial hemorrhage hx Dispo:awaiting placement for SNF/skilled nursing placement Code Status:DNR/DNI (2) Alcoholic cirrhosis of liver: (3) GERD (gastroesophageal reflux disease): (4) Hypertension: (5) COPD (chronic obstructive pulmonary disease): (6) Patient unarousable: Admission and Anticipated Discharge Date Admission Date: July 23, 2022 Supervising Physician Co-Signing Physician Notes I personally examined the patient and verified all lebron points of history and exam, discussed case, and agree with decision making with Dr Paredes No meaningful HPI review of systems obtainable. Is awake and talkative Vitals noted, awake and alert disoriented, no distress. HEENT normocephalic atraumatic mucous membranes moist. Cardio regular no rubs murmurs or gallops breathing unlabored no accessory muscle use good effort no rales rhonchi or wheezes good effort. Skin shows no rashes no pallor or icterus. Neuro without focal deficits. Mental status as above. Altered mental statushepatic encephalopathy and baseline dementia. Continue medications and supportive care. Awaiting SNF Otherwise as above Subjective Patient was seen bedside this AM. No issues or complaints. Review of Systems Review of Systems: Unobtainable due to cognitive status Physical Exam Constitutional: + altered mental status, cooperative and comfortable Eyes: PERRL, conjunctivae normal, anicteric sclerae PERRL Respiratory: normal respiratory effort, lungs clear to auscultation Cardiovascular: RRR, no murmur, no edema Rate/Rhythm: + irregularly irregular Heart Sounds: normal S1 and normal S2 Gastrointestinal (Abdomen): normal bowel sounds, soft, nontender, no hepatosplenomegaly Percussion/Palpation: abdomen soft; abdomen nontender Musculoskeletal: no cyanosis or clubbing, extremities motor strength 5/5 Skin: no rashes, warm and dry Psychiatric: Orientation: oriented to person; + not oriented to place and + not oriented to time Lymphatic: no cervical or axillary lymphadenopathy Results & Data Results & Data ([facility]) Vital Signs (Past 12 Hours) Vital Signs Temp Pulse Resp BP BP Pulse Ox O2 Del Method 08/15/22 05:06 36.1 C L 63 16 147/68 H 98 Room Air 08/14/22 19:17 36.7 C 67 20 122/69 94 Room Air Resident Activity Tracking Resident Involvement: Resident Care Provided Care Provided: Adult Hospital Medicine
[2022-08-15 07:28] LABS: Hematocrit (blood only) 36.9 % (40.1-51.0); Mean Corpuscular Hemoglobin 35.8 pg (25.0-34.0); Mean Corpuscular Hgb Conc 35.2 g/dL (32.0-36.0); Mean Corpuscular Volume 101.7 fL (80.0-100.0); Mean Platelet Volume 10.2 fL (9.4-12.4); Platelet Count 117 K/uL (130-400); RDW Coefficient of Variation 15.3 % (11.5-14.5); RDW Standard Deviation 56.2 fL (36.4-46.3); Red Blood Count 3.63 M/uL (4.63-6.08); White Blood Count 5.04 K/ul (4.8-10.8)
[2022-08-15 07:53] LABS: Albumin Globulin Ratio 0.8 (0.9-2); Albumin Level 2.8 gm/dl (3.4-5.0); BUN Creatinine Ratio 20.2 (10-20); Bilirubin Direct 0.8 mg/dl (0-0.2); Bilirubin,Total 2.7 mg/dl (0.2-1.0); Calcium 9.1 mg/dl (8.5-10.1); Creatinine Clr Calc Pharmacy 68.3 ml/min; Est GFR (African American) 94.8 ml/min; Est GFR (Non-African American) 81.8 ml/min; Globulin 3.5 gm/dl (2.5-4.0); Potassium 3.7 mmol/L (3.5-5.1); Total Protein 6.3 gm/dl (6.0-8.3)
[2022-08-15] MEDS: UMECLIDINIUM/VILANTEROL 62.5/25MCG 7 PUFFS/INHALER INH SCH (09:00)
[2022-08-15] MEDS: LACTULOSE SYRUP 30 GM/45 ML UDP PO SCH ×4 (09:00→22:15)
[2022-08-15] MEDS: MULTIVITAMIN TAB PO SCH (09:01)
[2022-08-15] MEDS: PANTOprazole 40 MG TAB PO SCH ×2 (09:01→22:14)
[2022-08-15] MEDS: lisinopril 5 MG TAB PO SCH (09:01)
[2022-08-15] MEDS: rifAXIMin 550 MG TABLET PO SCH ×2 (09:01→22:14)
[2022-08-15] MEDS: levETIRAcetam 500 MG TAB PO SCH ×2 (09:02→22:14)
[2022-08-15] MEDS: FERROUS SULFATE 325 MG TAB PO SCH ×2 (09:02→22:14)
[2022-08-15] MEDS: CHOLECALCIFEROL 1,000 UNITS 25 MCG TAB PO SCH (09:02)
[2022-08-15] MEDS: POTASSIUM CHLORIDE CRTAB 20 MEQ TABCR PO SCH ×3 (09:07→16:41)
[2022-08-15] MEDS: FUROSEMIDE 40 MG TAB PO SCH ×2 (09:08→16:40)
[2022-08-15] MEDS ORDERED: LACTULOSE SYRUP 30 GM/45 ML UDP PO STA (19:12)
--- NOTE | 2022-08-15 19:18 | Billing Data ---
Date of Service August 15, 2022 Coding Level of Care Code 35446 Subseq Hosp Care Lvl 2
[2022-08-15] MEDS: MELATONIN 3 MG TAB PO SCH (22:14)
--- NOTE | 2022-08-16 07:00 | Hospitalist Progress Note ---
Date of Service August 16, 2022 Assessment & Plan (1) Acute alteration in mental status: Plan: Nicolás is a 71 y/o M with hx of intracranial hemorrhage, alcohol induced cirrhosis, atrial fibrillation, insomnia, gout, carotid artery stenosis, COPD, who was admitted to the hospital for altered mental status. His presentation was unchanged from previous admission. His confusion is secondary to hepatic encephalopathy with possible component of superimposed delirium. Altered Mental Status: 2/2 Hepatic Encephalopathy w/ Superimposed Hyperactive Delirium Baseline mentation - struggles with word finding but is able to communicate more fully and can perform some of his daily activities of living independently. - Know hx of alcoholic cirrhosis with previous HE - Admitted d/t hyperammonemia of 156 - CT Head and CXR w/o acute change - Utox negative. UA negative. - Continue Lactulose with a goal of 2-3 soft formed stools a day - Continue Rifaximin. - Continue Lasix - Delirium precautions ongoing - Patient was unarousable on 08/12. Ammonia was high at 108. Was started on lactulose Q8h enema. Once patient is able to tolerate oral intake will switch to oral. Stroke alert called on the night of 08/12, CT head and CTA neck/head were negative. -Patient returned to baseline on 08/13. Continue lactulose for the time being - Continue melatonin 3mg [id number] - Patient was agitated on 08/16, asking where his daughter was and saying threatening things to nurses. Will put on prn Haldol 5mg IM Q24H for severe agitation. - Talked to daughter. Patient is scheduled to go [facility] on 08/19. Hyperbilirubinemia -Patient is elevated bilirubin @ 4.8 which has been elevated in the past but is increasing at this time. -Patient is also having some slight URQ tenderness on PE -LFT, lipase and US liver ordered. -Lipase and LFT's are within baseline -US liver showed nonvisualization of the gallbladder and common bile duct as well as cirrhosis w/o hepatic mass -Consider CT if symptoms get worse and bilirubin continues to raise. Hyponatremia - resolved - 127 on admission. Now resolved. Has been normal since (141 on 08/12). - Recommend repeat BMP one week after D/C. Liver Cirrhosis - Patient has a known history of alcoholic cirrhosis. - MELD 18. - Continue to monitor. Atrial Fibrillation - Rate controlled. - Patient is not on anticoagulation due to recent intraparenchymal hemorrhage Hypertension - Patient on lisinopril and Lasix at home for hypertension. - BP within acceptable range. - Continue home meds Hx of Intracranial Hemorrhage - Continue Levetiracetam Deconditioning - PT f/u to reeval - recs 12/05 care either at SNF or at home with home health depending on family choice. CM informed. GERD - Continue Protonix COPD - Continue home inhaler Diet:Easy to chew DVT PPx:SCDs only d/t intracranial hemorrhage hx Dispo:[facility] on 08/19 Code Status:DNR/DNI (2) Alcoholic cirrhosis of liver: (3) GERD (gastroesophageal reflux disease): (4) Hypertension: (5) COPD (chronic obstructive pulmonary disease): (6) Patient unarousable: Admission and Anticipated Discharge Date Admission Date: July 23, 2022 Supervising Physician Co-Signing Physician Notes I personally examined the patient and verified all lebron points of history and exam, discussed case, and agree with decision making with Dr Paredes No meaningful HPI review of systems obtainable. Is awake and talkative. Was apparently more agitated earlier. Vitals noted, awake and alert disoriented, no distress. HEENT normocephalic atraumatic mucous membranes moist. breathign unlabored no accessory muscles good effort skin no rashes no pallor or icterus Altered mental statushepatic encephalopathy and baseline dementia. Continue medications and supportive care. Add thiamine, folate, B12. Sent thiamine level. Awaiting SNF Otherwise as above Subjective Patient was seen beside this AM. Patient is agitated today and states that he wants to go home right now and asking where his daughter is. Review of Systems Review of Systems: Unobtainable due to cognitive status Physical Exam Constitutional: + altered mental status, + in distress and + combative Eyes: PERRL, conjunctivae normal, anicteric sclerae PERRL Respiratory: normal respiratory effort, lungs clear to auscultation Cardiovascular: RRR, no murmur, no edema Rate/Rhythm: + irregularly irregular Heart Sounds: normal S1 and normal S2 Gastrointestinal (Abdomen): normal bowel sounds, soft, nontender, no hepatosplenomegaly Percussion/Palpation: abdomen soft; abdomen nontender Musculoskeletal: no cyanosis or clubbing, extremities motor strength 5/5 Skin: no rashes, warm and dry Psychiatric: Orientation: oriented to person; + not oriented to place and + not oriented to time Lymphatic: no cervical or axillary lymphadenopathy Results & Data Results & Data ([facility]) Vital Signs (Past 12 Hours) Vital Signs Temp Pulse Resp BP BP Pulse Ox O2 Del Method 08/15/22 22:47 36.4 C L 56 L 16 104/48 L 96 Room Air 08/15/22 19:21 36.6 C 71 18 103/58 L 94 Room Air 08/15/22 19:23 Room Air Resident Activity Tracking Resident Involvement: Resident Care Provided Care Provided: Adult Hospital Medicine
[2022-08-16] MEDS: CHOLECALCIFEROL 1,000 UNITS 25 MCG TAB PO SCH (08:32)
[2022-08-16] MEDS: rifAXIMin 550 MG TABLET PO SCH ×2 (08:32→20:31)
[2022-08-16] MEDS: PANTOprazole 40 MG TAB PO SCH ×2 (08:32→20:31)
[2022-08-16] MEDS: FOLIC ACID 1 MG TAB PO SCH (08:32)
[2022-08-16] MEDS: LACTULOSE SYRUP 30 GM/45 ML UDP PO SCH ×4 (08:32→20:32)
[2022-08-16] MEDS: UMECLIDINIUM/VILANTEROL 62.5/25MCG 7 PUFFS/INHALER INH SCH (08:32)
[2022-08-16] MEDS: MULTIVITAMIN TAB PO SCH (08:32)
[2022-08-16] MEDS: levETIRAcetam 500 MG TAB PO SCH ×2 (08:32→20:31)
[2022-08-16] MEDS: FERROUS SULFATE 325 MG TAB PO SCH ×2 (08:32→20:31)
[2022-08-16] MEDS: THIAMINE HCL 100 MG TAB PO SCH ×2 (08:32→20:31)
[2022-08-16] MEDS: CYANOCOBALAMIN (B-12) 500 MCG TABLET PO SCH (08:32)
[2022-08-16] MEDS: FUROSEMIDE 40 MG TAB PO SCH ×2 (08:32→17:00)
[2022-08-16] MEDS: lisinopril 5 MG TAB PO SCH (08:33)
[2022-08-16] MEDS: POTASSIUM CHLORIDE CRTAB 20 MEQ TABCR PO SCH ×3 (08:36→17:01)
[2022-08-16 09:06] LABS: Hematocrit (blood only) 37.2 % (40.1-51.0); Hemoglobin 13.5 g/dl (14.0-18.0); Mean Platelet Volume 9.8 fL (9.4-12.4); Platelet Count 127 K/uL (130-400)
[2022-08-16 09:27] LABS: Albumin Globulin Ratio 0.9 (0.9-2); Albumin Level 2.9 gm/dl (3.4-5.0); BUN Creatinine Ratio 16.5 (10-20); Calcium 8.6 mg/dl (8.5-10.1); Creatinine Clr Calc Pharmacy 66.2 ml/min; Est GFR (African American) 91.3 ml/min; Est GFR (Non-African American) 78.8 ml/min; Globulin 3.4 gm/dl (2.5-4.0); Potassium 3.9 mmol/L (3.5-5.1); Total Protein 6.3 gm/dl (6.0-8.3)
[2022-08-16 09:42] LABS: Mean Corpuscular Hemoglobin 36.8 pg (25.0-34.0); Mean Corpuscular Hgb Conc 36.3 g/dL (32.0-36.0); Mean Corpuscular Volume 101.4 fL (80.0-100.0); Platelet Estimate Normal (Normal); RDW Coefficient of Variation 15.1 % (11.5-14.5); RDW Standard Deviation 57.1 fL (36.4-46.3); Red Blood Count 3.67 M/uL (4.63-6.08)
[2022-08-16] MEDS ORDERED: HALOPERIDOL LACTATE 5 MG/ML 1 ML VIAL IM PRN (10:33)
--- NOTE | 2022-08-16 19:15 | Billing Data ---
Date of Service August 16, 2022 Coding Level of Care Code 42528 Subseq Hosp Care Lvl 2
[2022-08-16] MEDS: MELATONIN 3 MG TAB PO SCH (20:31)
--- NOTE | 2022-08-17 07:03 | Hospitalist Progress Note ---
Date of Service August 17, 2022 Assessment & Plan (1) Acute alteration in mental status: Plan: Pt is a 71 yo male with PMH of intracranial hemorrhage, alcohol induced cirrhosis, atrial fibrillation, insomnia, gout, carotid artery stenosis, COPD, who was admitted to the hospital for altered mental status. His presentation was unchanged from previous admission. His confusion is secondary to hepatic encephalopathy with possible component of superimposed delirium. Altered Mental Status: 2/2 Hepatic Encephalopathy w/ Superimposed Hyperactive Delirium Baseline mentation - struggles with word finding but is able to communicate more fully and can perform some of his daily activities of living independently. - Know hx of alcoholic cirrhosis with previous HE - Admitted d/t hyperammonemia of 156 - CT Head and CXR w/o acute change - Utox negative. UA negative. - Continue Lactulose with a goal of 2-3 soft formed stools a day - Continue Rifaximin. - Continue Lasix - Delirium precautions ongoing - Patient was unarousable on 08/12. Ammonia was high at 108. Was started on lactulose Q8h enema. Stroke alert called on the night of 08/12, CT head and CTA neck/head were negative. -Patient returned to baseline on 08/13. Continue lactulose - Continue melatonin 3mg [id number] - Patient was agitated on 08/16, asking where his daughter was and saying threatening things to nurses. Haldol 5mg IM Q24H added for severe agitation. - Talked to daughter. Patient is scheduled to go [facility] on 08/19. - Pt appears to be at baseline, non agitated state 08/17 Hyperbilirubinemia -Pt with elevated bilirubin at 4.8 which has been elevated in the past but was increasing -Patient was also having some slight RUQ tenderness on PE -LFT, lipase and US liver ordered. -Lipase and LFT's are within baseline -US liver showed nonvisualization of the gallbladder and common bile duct as well as cirrhosis w/o hepatic mass -Consider CT if symptoms get worse and bilirubin continues to raise - bilirubin improved at 2.8 today Hyponatremia - resolved - 127 on admission. Now resolved. Has been normal since 08/12 at 141 - Recommend repeat BMP one week after d/c Liver Cirrhosis - Patient has a known history of alcoholic cirrhosis. - MELD 18. - Continue to monitor. Atrial Fibrillation - Rate controlled. - Patient is not on anticoagulation due to recent intraparenchymal hemorrhage Hypertension - Patient on lisinopril and Lasix at home for hypertension. - BP within acceptable range- most recent 121/73 today - Continue home meds Hx of Intracranial Hemorrhage - Continue Levetiracetam Deconditioning - PT f/u to reeval - recs 12/05 care either at SNF or at home with home health depending on family choice. CM informed. GERD - Continue Protonix COPD - Continue home inhaler (2) Alcoholic cirrhosis of liver: (3) GERD (gastroesophageal reflux disease): (4) Hypertension: (5) COPD (chronic obstructive pulmonary disease): (6) Patient unarousable: Plan Diet:Easy to chew DVT PPx:SCDs only d/t intracranial hemorrhage hx Dispo:[facility] on 08/19 Code Status:DNR/DNI Admission and Anticipated Discharge Date Admission Date: July 23, 2022 Supervising Physician Co-Signing Physician Notes I personally examined the patient and verified all lebron points of history and exam, discussed case, and agree with decision making with Dr Humphrey still no meaningful HPI review of systems obtainable. Is awake and talkative. no further severe agitation Vitals noted, awake and alert disoriented, no distress. HEENT normocephalic atraumatic mucous membranes moist. breathign unlabored no accessory muscles good effort skin no rashes no pallor or icterus Altered mental statushepatic encephalopathy and baseline dementia. Continue medications and supportive care. Add thiamine, folate, B12. thiamine level pending. Awaiting SNF Otherwise as above Subjective 08/16/2022: Pt awake and talking when I saw him. He was feeding himself lunch w/o issue. Unable to answer questions fully but able to follow commands (like sitting forward). Pt appears comfortable and in NAD. Physical Exam Constitutional: NAD. Vitals WNL. Eyes: no conjunctival abnormality Respiratory: CTA bilaterally. No rhonchi, wheezing, or crackles. Non labored breathing. Cardiovascular: RRR. No murmur noted. No LL edema. Skin: no rashes, warm and dry Results & Data Results & Data ([facility]) Vital Signs (Past 12 Hours) Vital Signs Temp Pulse Resp BP BP Pulse Ox O2 Del Method 08/17/22 06:42 36.8 C 70 18 145/70 H 97 Room Air 08/16/22 22:34 36.3 C L 73 16 100/52 L 94 Room Air 08/16/22 19:19 36.6 C 79 16 111/63 94 Room Air Resident Activity Tracking Resident Involvement: Resident Care Provided Care Provided: Adult Hospital Medicine
[2022-08-17 07:08] LABS: Hematocrit (blood only) 35.7 % (40.1-51.0); Mean Corpuscular Hemoglobin 36.5 pg (25.0-34.0); Mean Corpuscular Hgb Conc 36.4 g/dL (32.0-36.0); Mean Corpuscular Volume 100.3 fL (80.0-100.0); Mean Platelet Volume 10.5 fL (9.4-12.4); Platelet Count 106 K/uL (130-400); RDW Coefficient of Variation 14.9 % (11.5-14.5); RDW Standard Deviation 55.3 fL (36.4-46.3); Red Blood Count 3.56 M/uL (4.63-6.08); White Blood Count 5.37 K/ul (4.8-10.8)
[2022-08-17 07:35] LABS: Albumin Globulin Ratio 0.8 (0.9-2); Albumin Level 2.7 gm/dl (3.4-5.0); BUN Creatinine Ratio 17.8 (10-20); Bilirubin Direct 0.8 mg/dl (0-0.2); Bilirubin,Total 2.8 mg/dl (0.2-1.0); Calcium 8.6 mg/dl (8.5-10.1); Est GFR (African American) 81.1 ml/min; Globulin 3.2 gm/dl (2.5-4.0); Total Protein 5.9 gm/dl (6.0-8.3)
[2022-08-17] MEDS: CHOLECALCIFEROL 1,000 UNITS 25 MCG TAB PO SCH (08:21)
[2022-08-17] MEDS: FUROSEMIDE 40 MG TAB PO SCH ×2 (08:21→17:03)
[2022-08-17] MEDS: levETIRAcetam 500 MG TAB PO SCH ×2 (08:21→21:09)
[2022-08-17] MEDS: FOLIC ACID 1 MG TAB PO SCH (08:21)
[2022-08-17] MEDS: POTASSIUM CHLORIDE CRTAB 20 MEQ TABCR PO SCH ×3 (08:21→17:03)
[2022-08-17] MEDS: CYANOCOBALAMIN (B-12) 500 MCG TABLET PO SCH (08:21)
[2022-08-17] MEDS: FERROUS SULFATE 325 MG TAB PO SCH ×2 (08:21→21:09)
[2022-08-17] MEDS: MULTIVITAMIN TAB PO SCH (08:22)
[2022-08-17] MEDS: lisinopril 5 MG TAB PO SCH (08:22)
[2022-08-17] MEDS: UMECLIDINIUM/VILANTEROL 62.5/25MCG 7 PUFFS/INHALER INH SCH (08:22)
[2022-08-17] MEDS: rifAXIMin 550 MG TABLET PO SCH ×2 (08:22→21:10)
[2022-08-17] MEDS: PANTOprazole 40 MG TAB PO SCH ×2 (08:22→21:10)
[2022-08-17] MEDS: LACTULOSE SYRUP 30 GM/45 ML UDP PO SCH ×4 (08:22→21:09)
[2022-08-17] MEDS: THIAMINE HCL 100 MG TAB PO SCH ×2 (08:22→21:11)
--- NOTE | 2022-08-17 17:14 | Billing Data ---
Date of Service August 17, 2022 Coding Level of Care Code 03800 Subseq Hosp Care Lvl 1
[2022-08-17] MEDS: MELATONIN 3 MG TAB PO SCH (21:10)
[2022-08-18 07:08] LABS: Hematocrit (blood only) 34.4 % (40.1-51.0); Hemoglobin 12.4 g/dl (14.0-18.0); Mean Platelet Volume 10.3 fL (9.4-12.4); Platelet Count 108 K/uL (130-400); White Blood Count 4.81 K/ul (4.8-10.8)
--- NOTE | 2022-08-18 07:17 | Hospitalist Progress Note ---
Date of Service August 18, 2022 Assessment & Plan (1) Acute alteration in mental status: Plan: Pt is a 71 yo male with PMH of intracranial hemorrhage, alcohol induced cirrhosis, atrial fibrillation, insomnia, gout, carotid artery stenosis, COPD, who was admitted to the hospital for altered mental status. His presentation was unchanged from previous admission. His confusion is secondary to hepatic encephalopathy with possible component of superimposed delirium. Altered Mental Status: 2/2 Hepatic Encephalopathy w/ Superimposed Hyperactive Delirium Baseline mentation - struggles with word finding but is able to communicate more fully and can perform some of his daily activities of living independently. - Know hx of alcoholic cirrhosis with previous HE - Admitted d/t hyperammonemia of 156 - CT Head and CXR w/o acute change - Utox negative. UA negative. - Continue Lactulose with a goal of 2-3 soft formed stools a day - Continue Rifaximin. - Continue Lasix - Delirium precautions ongoing - Patient was unarousable on 08/12. Ammonia was high at 108. Was started on lactulose Q8h enema. Stroke alert called on the night of 08/12, CT head and CTA neck/head were negative. -Patient returned to baseline on 08/13. Continue lactulose - Continue melatonin 3mg q1800 daily - Patient was agitated on 08/16, asking where his daughter was and saying threatening things to nurses. Haldol 5mg IM Q24H added for severe agitation. - Pt appears to be at baseline, non agitated state 08/17, 08/18 - Patient is scheduled to go [facility] on 08/19 Hyperbilirubinemia -Pt with elevated bilirubin at 4.8 which has been elevated in the past but was increasing -Patient was also having some slight RUQ tenderness on PE -Lipase and LFT's are within baseline -US liver showed nonvisualization of the gallbladder and common bile duct as well as cirrhosis w/o hepatic mass -Consider CT if symptoms get worse and bilirubin continues to raise - Bilirubin improved at 2.9 today Hyponatremia - resolved - 127 on admission, resolved up to 141, most recent 135 - Recommend repeat BMP one week after d/c Liver Cirrhosis - Patient has a known history of alcoholic cirrhosis. - MELD 18 upon admission - Continue to monitor Atrial Fibrillation - Patient is not on anticoagulation due to recent intraparenchymal hemorrhage Hypertension - continue home lisinopril and lasix Hx of Intracranial Hemorrhage - Continue Levetiracetam Deconditioning - PT f/u to reeval - recs 12/05 care either at SNF or at home with home health depending on family choice. CM informed. - pt to go to [facility] 08/19 GERD - Continue Protonix COPD - Continue home inhaler (2) Alcoholic cirrhosis of liver: (3) GERD (gastroesophageal reflux disease): (4) Hypertension: (5) COPD (chronic obstructive pulmonary disease): (6) Patient unarousable: Plan Diet:Easy to chew DVT PPx:SCDs only d/t intracranial hemorrhage hx Dispo:[facility] on 08/19 Code Status:DNR/DNI Admission and Anticipated Discharge Date Admission Date: July 23, 2022 Supervising Physician Co-Signing Physician Notes I personally examined the patient and verified all lebron points of history and exam, discussed case, and agree with decision making with Dr Humphrey Once again no meaningful HPI review of systems obtainable. Is awake and talkative. no further severe agitation Vitals noted, awake and alert disoriented, no distress. HEENT normocephalic atraumatic mucous membranes moist. breathign unlabored no accessory muscles good effort skin no rashes no pallor or icterus Altered mental statushepatic encephalopathy and baseline dementia. Continue medications and supportive care. Add thiamine, folate, B12. thiamine level pending. Awaiting SNF, stable when bed available Otherwise as above Subjective Pt is a 71 yo male with PMH of intracranial hemorrhage, alcohol induced cirrhosis, atrial fibrillation, insomnia, gout, carotid artery stenosis, COPD, who was admitted to the hospital for altered mental status. His presentation was unchanged from previous admission. His confusion is secondary to hepatic encephalopathy with possible component of superimposed delirium. Today pt is eating breakfast at his own will when I saw him at bedside. He is at baseline mentation, unable to answer most questions. He appears comfortable. Physical Exam Constitutional: NAD. Vitals WNL. Eyes: no conjunctival abnormality Respiratory: CTA bilaterally. No rhonchi, wheezing, or crackles. Non labored breathing. Cardiovascular: RRR. No murmur noted. No LL edema. Skin: no rashes, warm and dry Results & Data Results & Data ([facility]) Vital Signs (Past 12 Hours) Vital Signs Temp Pulse Resp BP Pulse Ox O2 Del Method 08/17/22 22:00 36.7 C 77 16 116/75 97 Room Air Resident Activity Tracking Resident Involvement: Resident Care Provided Care Provided: Adult Hospital Medicine
[2022-08-18 07:33] LABS: Albumin Globulin Ratio 0.8 (0.9-2); Albumin Level 2.8 gm/dl (3.4-5.0); Bilirubin Direct 0.8 mg/dl (0-0.2); Bilirubin,Total 2.9 mg/dl (0.2-1.0); Calcium 8.7 mg/dl (8.5-10.1); Creatinine Clr Calc Pharmacy 62.2 ml/min; Est GFR (African American) 78.4 ml/min; Est GFR (Non-African American) 67.7 ml/min; Globulin 3.3 gm/dl (2.5-4.0); Potassium 4.2 mmol/L (3.5-5.1); Total Protein 6.1 gm/dl (6.0-8.3)
[2022-08-18 07:38] LABS: Mean Corpuscular Hemoglobin 36.9 pg (25.0-34.0); Mean Corpuscular Volume 102.4 fL (80.0-100.0); RDW Coefficient of Variation 15.4 % (11.5-14.5); RDW Standard Deviation 57.2 fL (36.4-46.3); Red Blood Count 3.36 M/uL (4.63-6.08)
[2022-08-18] MEDS: CYANOCOBALAMIN (B-12) 500 MCG TABLET PO SCH (08:40)
[2022-08-18] MEDS: lisinopril 5 MG TAB PO SCH (08:40)
[2022-08-18] MEDS: LACTULOSE SYRUP 30 GM/45 ML UDP PO SCH ×4 (08:40→20:06)
[2022-08-18] MEDS: CHOLECALCIFEROL 1,000 UNITS 25 MCG TAB PO SCH (08:41)
[2022-08-18] MEDS: THIAMINE HCL 100 MG TAB PO SCH ×2 (08:41→20:06)
[2022-08-18] MEDS: MULTIVITAMIN TAB PO SCH (08:41)
[2022-08-18] MEDS: FOLIC ACID 1 MG TAB PO SCH (08:41)
[2022-08-18] MEDS: PANTOprazole 40 MG TAB PO SCH ×2 (08:41→20:06)
[2022-08-18] MEDS: rifAXIMin 550 MG TABLET PO SCH ×2 (08:41→20:07)
[2022-08-18] MEDS: FUROSEMIDE 40 MG TAB PO SCH ×2 (08:41→17:08)
[2022-08-18] MEDS: levETIRAcetam 500 MG TAB PO SCH ×2 (08:42→20:06)
[2022-08-18] MEDS: UMECLIDINIUM/VILANTEROL 62.5/25MCG 7 PUFFS/INHALER INH SCH (08:42)
[2022-08-18] MEDS: FERROUS SULFATE 325 MG TAB PO SCH ×2 (08:42→20:06)
[2022-08-18] MEDS: POTASSIUM CHLORIDE CRTAB 20 MEQ TABCR PO SCH ×3 (08:44→17:13)
--- NOTE | 2022-08-18 18:58 | Billing Data ---
Date of Service August 18, 2022 Coding Level of Care Code 70888 Subseq Hosp Care Lvl 1
[2022-08-18] MEDS: MELATONIN 3 MG TAB PO SCH (20:11)
[2022-08-19 07:20] LABS: Hematocrit (blood only) 36.6 % (40.1-51.0); Mean Platelet Volume 10.4 fL (9.4-12.4); Platelet Count 108 K/uL (130-400); White Blood Count 4.17 K/ul (4.8-10.8)
[2022-08-19 07:46] LABS: Albumin Globulin Ratio 0.8 (0.9-2); Albumin Level 2.8 gm/dl (3.4-5.0); BUN Creatinine Ratio 23.5 (10-20); Bilirubin Direct 0.8 mg/dl (0-0.2); Bilirubin,Total 2.8 mg/dl (0.2-1.0); Calcium 8.5 mg/dl (8.5-10.1); Creatinine Clr Calc Pharmacy 80.5 ml/min; Est GFR (African American) 102.3 ml/min; Est GFR (Non-African American) 88.3 ml/min; Globulin 3.6 gm/dl (2.5-4.0); Total Protein 6.4 gm/dl (6.0-8.3)
[2022-08-19 07:50] LABS: Mean Corpuscular Hemoglobin 36.4 pg (25.0-34.0); Mean Corpuscular Hgb Conc 35.5 g/dL (32.0-36.0); Mean Corpuscular Volume 102.5 fL (80.0-100.0); RDW Coefficient of Variation 15.2 % (11.5-14.5); RDW Standard Deviation 57.5 fL (36.4-46.3); Red Blood Count 3.57 M/uL (4.63-6.08)
--- NOTE | 2022-08-19 08:12 | Hospitalist Progress Note ---
Date of Service August 19, 2022 Assessment & Plan (1) Acute alteration in mental status: (2) Alcoholic cirrhosis of liver: (3) GERD (gastroesophageal reflux disease): (4) Hypertension: (5) COPD (chronic obstructive pulmonary disease): (6) Patient unarousable: Plan Pt is a 71 yo male with PMH of intracranial hemorrhage, alcohol induced cirrhosis, atrial fibrillation, insomnia, gout, carotid artery stenosis, COPD, who was admitted to the hospital for altered mental status. His presentation was unchanged from previous admission. His confusion is secondary to hepatic encephalopathy with possible component of superimposed delirium. Altered Mental Status: 2/2 Hepatic Encephalopathy w/ Superimposed Hyperactive Delirium Baseline mentation - struggles with word finding but is able to communicate more fully and can perform some of his daily activities of living independently. - Know hx of alcoholic cirrhosis with previous HE - Admitted d/t hyperammonemia of 156 - CT Head and CXR w/o acute change - Utox negative. UA negative. - Continue Lactulose with a goal of 2-3 soft formed stools a day, Rifaximin, and Lasix. Continue melatonin 3mg q1800 daily - Delirium precautions ongoing - Patient was unarousable on 08/12. Ammonia was high at 108. Was started on lactulose Q8h enema. Stroke alert called on the night of 08/12, CT head and CTA neck/head were negative. - Patient returned to baseline on 08/13. Continue lactulose. - Patient was agitated on 08/16, asking where his daughter was and saying threatening things to nurses. Haldol 5mg IM Q24H added for severe agitation. - Pt appears to be at baseline, non agitated state 08/17, 08/18, 08/19 --- Patient was scheduled to go [facility] on 08/19, insurance declined SNF, detention care recommend, CM following Hyperbilirubinemia - Pt with elevated bilirubin at 4.8 which has been elevated in the past but was increasing - Patient was also having some slight RUQ tenderness on PE, resolved 08/19 - Lipase and LFT's are within baseline - US liver showed nonvisualization of the gallbladder and common bile duct as well as cirrhosis w/o hepatic mass - Consider CT if symptoms get worse and bilirubin continues to raise - Bilirubin improved at 2.8 08/19 Hyponatremia - resolved - 127 on admission, resolved up to 135 on 08/19 - Recommend repeat BMP one week after d/c Liver Cirrhosis - Patient has a known history of alcoholic cirrhosis. - MELD 18 upon admission - Continue to monitor Atrial Fibrillation - Patient is not on anticoagulation due to recent intraparenchymal hemorrhage Hypertension - continue home lisinopril and lasix Hx of Intracranial Hemorrhage - Continue Levetiracetam Deconditioning - PT f/u to reeval - recs 12/05 care either at SNF or at home with home health depending on family choice. CM informed. - pt to go to [facility] 08/19 GERD - Continue Protonix COPD - Continue home inhaler Diet:Easy to chew DVT PPx:SCDs only d/t intracranial hemorrhage hx Dispo:Pending detention placement Code Status:DNR/DNI Admission and Anticipated Discharge Date Admission Date: July 23, 2022 Supervising Physician Co-Signing Physician Notes I also saw the patient confirmed lebron portions of the history and physical examination. I agree with the impression plan as noted the resident documentation. EXAM 121/61, 73, 22, 36.3, 90% room air Patient is awake, smiles, nods. No meaningful communication. Lungs clear with nonlabored respirations Heart irregularly irregular DATA WBC 4.17, hemoglobin 13, platelet count 108 Sodium 135, potassium 4.0, BUN 20, creatinine 0.85 Total bilirubin 2.8, direct bili 0.8 IMPRESSION & PLAN Altered mental status, hepatic encephalopathy Dementia Continue current medications and supportive care Thiamine, folate, B12 supplementation Pending placement; he was denied for correction facility. Additional per resident documentation Subjective Pt is a 71 yo male with PMH of intracranial hemorrhage, alcohol induced cirrhosis, atrial fibrillation, insomnia, gout, carotid artery stenosis, COPD, who was admitted to the hospital for altered mental status. His presentation was unchanged from previous admission. His confusion is secondary to hepatic encephalopathy with possible component of superimposed delirium. 08/19: Patient at baseline. No meaningful HPI. Patient confortable upon evaluation. Denies any pain. Review of Systems Review of Systems: See HPI Physical Exam Physical Exam: Gen: NAD, disoriented Neuro: AO x 1, no focal neurologic deficits at visit Resp:Non-labored, no wheezing/rhonchi/rales, CTAB CV:Irregularly irregular, normal S1/S2, no M/R/G Abd: Soft, non-distended, no TTP, normoactive bowels, no masses Extr: 2+ dp bilaterally, no edema Results & Data Results & Data ([facility]) Vital Signs (Past 12 Hours) Vital Signs Temp Pulse Resp BP BP Pulse Ox O2 Del Method 08/19/22 07:42 36.7 C 68 18 157/80 H 92 Room Air 08/18/22 20:30 36.4 C L 72 18 143/73 H 96 Room Air Resident Activity Tracking Resident Involvement: Resident Care Provided Care Provided: Adult Hospital Medicine
[2022-08-19] MEDS: FUROSEMIDE 40 MG TAB PO SCH ×2 (09:01→17:37)
[2022-08-19] MEDS: FERROUS SULFATE 325 MG TAB PO SCH ×2 (09:02→21:33)
[2022-08-19] MEDS: levETIRAcetam 500 MG TAB PO SCH ×2 (09:02→21:33)
[2022-08-19] MEDS: rifAXIMin 550 MG TABLET PO SCH ×2 (09:02→21:32)
[2022-08-19] MEDS: MULTIVITAMIN TAB PO SCH (09:02)
[2022-08-19] MEDS: LACTULOSE SYRUP 30 GM/45 ML UDP PO SCH ×4 (09:02→21:32)
[2022-08-19] MEDS: THIAMINE HCL 100 MG TAB PO SCH ×2 (09:02→21:32)
[2022-08-19] MEDS: PANTOprazole 40 MG TAB PO SCH ×2 (09:02→21:33)
[2022-08-19] MEDS: POTASSIUM CHLORIDE CRTAB 20 MEQ TABCR PO SCH ×3 (09:02→17:37)
[2022-08-19] MEDS: FOLIC ACID 1 MG TAB PO SCH (09:02)
[2022-08-19] MEDS: lisinopril 5 MG TAB PO SCH (09:02)
[2022-08-19] MEDS: CYANOCOBALAMIN (B-12) 500 MCG TABLET PO SCH (09:02)
[2022-08-19] MEDS: CHOLECALCIFEROL 1,000 UNITS 25 MCG TAB PO SCH (09:02)
[2022-08-19] MEDS: UMECLIDINIUM/VILANTEROL 62.5/25MCG 7 PUFFS/INHALER INH SCH (09:03)
[2022-08-19] MEDS: MELATONIN 3 MG TAB PO SCH (21:36)
--- NOTE | 2022-08-20 07:52 | Hospitalist Progress Note ---
Date of Service August 20, 2022 Assessment & Plan (1) Acute alteration in mental status: (2) Alcoholic cirrhosis of liver: (3) GERD (gastroesophageal reflux disease): (4) Hypertension: (5) COPD (chronic obstructive pulmonary disease): (6) Patient unarousable: Plan Pt is a 71 yo male with PMH of intracranial hemorrhage, alcohol induced cirrhosis, atrial fibrillation, insomnia, gout, carotid artery stenosis, COPD, who was admitted to the hospital for altered mental status. His presentation was unchanged from previous admission. His confusion is secondary to hepatic encephalopathy with possible component of superimposed delirium. Altered Mental Status: 2/2 Hepatic Encephalopathy w/ Superimposed Hyperactive Delirium Baseline mentation - struggles with word finding but is able to communicate more fully and can perform some of his daily activities of living independently. - Know hx of alcoholic cirrhosis with previous HE - Admitted d/t hyperammonemia of 156 - CT Head and CXR w/o acute change - Utox negative. UA negative. - Continue Lactulose with a goal of 2-3 soft formed stools a day, Rifaximin, and Lasix. Continue melatonin 3mg q1800 daily - Delirium precautions ongoing - Patient was unarousable on 08/12. Ammonia was high at 108. Was started on lactulose Q8h enema. Stroke alert called on the night of 08/12, CT head and CTA neck/head were negative. - Patient returned to baseline on 08/13. Continue lactulose. - Patient was agitated on 08/16, asking where his daughter was and saying threatening things to nurses. Haldol 5mg IM Q24H added for severe agitation. - Pt appears to be at baseline, non agitated state 08/17 - 08/20, patient is arousable but non-coherent --- Patient was scheduled to go [facility] on 08/19, insurance declined SNF, long-term care recommend, CM following Hyperbilirubinemia - Pt with elevated bilirubin at 4.8 which has been elevated in the past but was increasing - Patient was also having some slight RUQ tenderness on PE, resolved 08/19 - Lipase and LFT's are within baseline - US liver showed nonvisualization of the gallbladder and common bile duct as well as cirrhosis w/o hepatic mass - Consider CT if symptoms get worse and bilirubin continues to raise --- Bilirubin at 3.2 (from 2.8) 08/20, following Hyponatremia - resolved - 127 on admission, resolved up to 135 (baseline) - Recommend repeat BMP one week after d/c --- Following inpatient Liver Cirrhosis - Patient has a known history of alcoholic cirrhosis. - MELD 18 upon admission --- Following inpatient Atrial Fibrillation - Patient is not on anticoagulation due to recent intraparenchymal hemorrhage - Episodes of irregular rhythm, regular 08/20 Hypertension - Continue home Lisinopril 5 mg and Lasix 40 mg Hx of Intracranial Hemorrhage - Continue Levetiracetam Deconditioning - PT f/u to reeval - recs 12/05 care either at SNF or at home with home health depending on family choice. CM informed. - 08/17 PT noted failure to progress beyond requirement of 24 hour supervision, recommended 24 hour care, PCF, and return home - pt to go to [facility] 08/19, insurance declined SNF --- CM following for possibility of long-term care GERD - Continue Protonix COPD - Continue home inhaler LDiet:Easy to chew DVT PPx:SCDs only d/t intracranial hemorrhage hx Dispo:Pending long-term placement Code Status:DNR/DNI Admission and Anticipated Discharge Date Admission Date: July 23, 2022 Supervising Physician Co-Signing Physician Notes I also saw the patient confirmed lebron portions of the history and physical examination. I agree with the impression plan as noted the resident documentation. EXAM 121/52, 71, 18, 36.8, 92% room air Patient is awake. He is semireclined in bed. Nonsensical speech. Lungs clear with nonlabored respirations Heart irregularly irregular DATA Hemoglobin 14.3, platelet count 126 Sodium 135, potassium 4.0, BUN 18, creatinine 0.92 Total bilirubin 3.2 IMPRESSION & PLAN Altered mental status, hepatic encephalopathy Dementia Continue current medications and supportive care Thiamine, folate, B12 supplementation Pending placement; he was denied for [facility]p facility; looking at [facility] for long-term care Additional per resident documentation Subjective Pt is a 71 yo male with PMH of intracranial hemorrhage, alcohol induced cirrhosis, atrial fibrillation, insomnia, gout, carotid artery stenosis, COPD, who was admitted to the hospital for altered mental status. His presentation was unchanged from previous admission. His confusion is secondary to hepatic encephalopathy with possible component of superimposed delirium. 08/20: Patient appears at baseline. Unable to follow commands. No meaningful HPI. Appears comfortable and denies pain. Nursing noted weakness today with ambulation to bathroom. 08/19: Patient at baseline. No meaningful HPI. Patient comfortable upon evaluation. Denies any pain. Review of Systems Review of Systems: See HPI Physical Exam Physical Exam: Gen: NAD, disoriented Neuro: AO x 1, no focal neurologic deficits at visit Resp:Non-labored, no wheezing/rhonchi/rales, CTAB CV:Regular, normal S1/S2, no M/R/G Abd: Soft, non-distended, no TTP, normoactive bowels, no masses Extr: 2+ dp bilaterally, no edema Results & Data Results & Data ([facility]) Vital Signs (Past 12 Hours) Vital Signs Temp Pulse Resp BP Pulse Ox O2 Del Method 08/20/22 07:50 36.8 C 71 18 121/52 L 96 Room Air 08/19/22 21:39 36.6 C 81 16 130/73 95 Room Air Resident Activity Tracking Resident Involvement: Resident Care Provided Care Provided: Adult Hospital Medicine
[2022-08-20] MEDS: FUROSEMIDE 40 MG TAB PO SCH ×2 (09:45→17:03)
[2022-08-20] MEDS: CHOLECALCIFEROL 1,000 UNITS 25 MCG TAB PO SCH (09:45)
[2022-08-20] MEDS: POTASSIUM CHLORIDE CRTAB 20 MEQ TABCR PO SCH ×3 (09:45→17:03)
[2022-08-20] MEDS: PANTOprazole 40 MG TAB PO SCH ×2 (09:45→20:02)
[2022-08-20] MEDS: CYANOCOBALAMIN (B-12) 500 MCG TABLET PO SCH (09:45)
[2022-08-20] MEDS: rifAXIMin 550 MG TABLET PO SCH ×2 (09:46→20:02)
[2022-08-20] MEDS: THIAMINE HCL 100 MG TAB PO SCH ×2 (09:46→20:02)
[2022-08-20] MEDS: LACTULOSE SYRUP 30 GM/45 ML UDP PO SCH ×4 (09:47→20:02)
[2022-08-20] MEDS: FERROUS SULFATE 325 MG TAB PO SCH ×2 (09:47→20:02)
[2022-08-20] MEDS: levETIRAcetam 500 MG TAB PO SCH ×2 (09:47→20:02)
[2022-08-20] MEDS: lisinopril 5 MG TAB PO SCH (09:47)
[2022-08-20] MEDS: UMECLIDINIUM/VILANTEROL 62.5/25MCG 7 PUFFS/INHALER INH SCH (09:47)
[2022-08-20] MEDS: FOLIC ACID 1 MG TAB PO SCH (09:47)
[2022-08-20] MEDS: MULTIVITAMIN TAB PO SCH (09:47)
[2022-08-20 09:48] LABS: Hematocrit (blood only) 39.2 % (40.1-51.0); Hemoglobin 14.3 g/dl (14.0-18.0); Mean Platelet Volume 10.5 fL (9.4-12.4); Platelet Count 126 K/uL (130-400); White Blood Count 4.27 K/ul (4.8-10.8)
[2022-08-20 10:15] LABS: Albumin Globulin Ratio 0.8 (0.9-2); BUN Creatinine Ratio 19.6 (10-20); Bilirubin,Total 3.2 mg/dl (0.2-1.0); Calcium 8.8 mg/dl (8.5-10.1); Creatinine Clr Calc Pharmacy 74.4 ml/min; Est GFR (African American) 97.3 ml/min; Globulin 3.6 gm/dl (2.5-4.0); Total Protein 6.6 gm/dl (6.0-8.3)
[2022-08-20 10:28] LABS: Mean Corpuscular Hemoglobin 36.4 pg (25.0-34.0); Mean Corpuscular Hgb Conc 36.5 g/dL (32.0-36.0); Mean Corpuscular Volume 99.7 fL (80.0-100.0); RDW Coefficient of Variation 14.9 % (11.5-14.5); RDW Standard Deviation 55.2 fL (36.4-46.3); Red Blood Count 3.93 M/uL (4.63-6.08)
[2022-08-20] MEDS: MELATONIN 3 MG TAB PO SCH (20:05)
--- NOTE | 2022-08-21 07:51 | Hospitalist Progress Note ---
Date of Service August 21, 2022 Assessment & Plan (1) Acute alteration in mental status: (2) Alcoholic cirrhosis of liver: (3) GERD (gastroesophageal reflux disease): (4) Hypertension: (5) COPD (chronic obstructive pulmonary disease): (6) Patient unarousable: Plan Pt is a 71 yo male with PMH of intracranial hemorrhage, alcohol induced cirrhosis, atrial fibrillation, insomnia, gout, carotid artery stenosis, COPD, who was admitted to the hospital for altered mental status. His presentation was unchanged from previous admission. His confusion is secondary to hepatic encephalopathy with possible component of superimposed delirium. Altered Mental Status: 2/2 Hepatic Encephalopathy w/ Superimposed Hyperactive Delirium Baseline mentation - struggles with word finding but is able to communicate more fully and can perform some of his daily activities of living independently. - Know hx of alcoholic cirrhosis with previous HE - Admitted d/t hyperammonemia of 156 - CT Head and CXR w/o acute change - Utox negative. UA negative. - Continue Lactulose with a goal of 2-3 soft formed stools a day, Rifaximin, and Lasix. Continue melatonin 3mg q1800 daily - Delirium precautions ongoing - Patient was unarousable on 08/12. Ammonia was high at 108. Was started on lactulose Q8h enema. Stroke alert called on the night of 08/12, CT head and CTA neck/head were negative. - Patient returned to baseline on 08/13. Continue lactulose. - Patient was agitated on 08/16, asking where his daughter was and saying threatening things to nurses. Haldol 5mg IM Q24H added for severe agitation. - Pt appears to be at baseline, non agitated state 08/17 - 08/20, patient is arousable but non-coherent --- Patient was scheduled to go [facility] on 08/19, insurance declined SNF, half-way care recommend, CM following --- 08/21 Family planning to self pay for half-way care Hyperbilirubinemia - Pt with elevated bilirubin at 4.8 which has been elevated in the past but was increasing - Patient was also having some slight RUQ tenderness on PE, resolved 08/19 - Lipase and LFT's are within baseline - US liver showed nonvisualization of the gallbladder and common bile duct as well as cirrhosis w/o hepatic mass - Consider CT if symptoms get worse and bilirubin continues to raise --- 08/21 Bilirubin at 3.3 (from 2.8) Hyponatremia - resolved - 127 on admission, resolved up to 135 (baseline) - Recommend repeat BMP one week after d/c --- Following inpatient Liver Cirrhosis - Patient has a known history of alcoholic cirrhosis. - MELD 18 upon admission --- Following inpatient Atrial Fibrillation - Patient is not on anticoagulation due to recent intraparenchymal hemorrhage - Episodes of irregular rhythm, regular 08/20 Hypertension - Continue home Lisinopril 5 mg and Lasix 40 mg Hx of Intracranial Hemorrhage - Continue Levetiracetam Deconditioning - PT f/u to reeval - recs 12/05 care either at SNF or at home with home health depending on family choice. CM informed. - 08/17 PT noted failure to progress beyond requirement of 24 hour supervision, recommended 24 hour care, PCF, and return home - pt to go to [facility] 08/19, insurance declined SNF --- CM following for possibility of half-way care GERD - Continue Protonix COPD - Continue home inhaler Diet:Easy to chew DVT PPx:SCDs only d/t intracranial hemorrhage hx Dispo:Pending half-way placement Code Status:DNR/DNI Admission and Anticipated Discharge Date Admission Date: July 23, 2022 Supervising Physician Co-Signing Physician Notes I also saw the patient confirmed lebron portions of the history and physical examination. I agree with the impression plan as noted the resident documentation. EXAM 153/77, 61, 16, 36.8, 9010% on room air Patient is awake. He is semireclined in bed. Nonsensical speech. Lungs clear with nonlabored respirations Heart irregularly irregular DATA WBC 4.21, hemoglobin 13.9, platelet count 118 Sodium 136, potassium 3.6, BUN 18, creatinine 0.86 Total bilirubin 3.3 IMPRESSION & PLAN Altered mental status, hepatic encephalopathy Dementia Continue current medications and supportive care Thiamine, folate, B12 supplementation Pending placement; he was denied for retirement facility; looking at [facility] for half-way care Additional per resident documentation Subjective Pt is a 71 yo male with PMH of intracranial hemorrhage, alcohol induced cirrhosis, atrial fibrillation, insomnia, gout, carotid artery stenosis, COPD, who was admitted to the hospital for altered mental status. His presentation was unchanged from previous admission. His confusion is secondary to hepatic encephalopathy with possible component of superimposed delirium. 08/21: Patient resting comfortably. At baseline. No meaningful HPI. 08/20: Patient appears at baseline. Unable to follow commands. No meaningful HPI. Appears comfortable and denies pain. Nursing noted weakness today with ambulation to bathroom. Review of Systems Review of Systems: See HPI Physical Exam Physical Exam: Gen: NAD, disoriented Neuro: AO x 1 (self), no focal neurologic deficits at visit Resp:Non-labored, no wheezing/rhonchi/rales, CTAB CV:Regular, normal S1/S2, no M/R/G Abd: Soft, non-distended, no TTP, normoactive bowels, no masses Extr: 2+ dp bilaterally, no edema Results & Data Results & Data ([facility]) Vital Signs (Past 12 Hours) Vital Signs Temp Pulse Resp BP BP Pulse Ox O2 Del Method 08/21/22 07:40 36.8 C 61 16 153/77 H 97 Room Air 08/20/22 20:10 36.7 C 68 16 124/68 95 Room Air Resident Activity Tracking Resident Involvement: Resident Care Provided Care Provided: Adult Hospital Medicine
[2022-08-21] MEDS: FUROSEMIDE 40 MG TAB PO SCH ×2 (09:46→17:39)
[2022-08-21] MEDS: FERROUS SULFATE 325 MG TAB PO SCH ×2 (09:48→20:31)
[2022-08-21] MEDS: CYANOCOBALAMIN (B-12) 500 MCG TABLET PO SCH (09:48)
[2022-08-21] MEDS: FOLIC ACID 1 MG TAB PO SCH (09:48)
[2022-08-21] MEDS: LACTULOSE SYRUP 30 GM/45 ML UDP PO SCH ×4 (09:48→20:34)
[2022-08-21] MEDS: lisinopril 5 MG TAB PO SCH (09:49)
[2022-08-21] MEDS: levETIRAcetam 500 MG TAB PO SCH ×2 (09:49→20:30)
[2022-08-21] MEDS: PANTOprazole 40 MG TAB PO SCH ×2 (09:50→20:30)
[2022-08-21] MEDS: MULTIVITAMIN TAB PO SCH (09:50)
[2022-08-21] MEDS: UMECLIDINIUM/VILANTEROL 62.5/25MCG 7 PUFFS/INHALER INH SCH (09:51)
[2022-08-21] MEDS: THIAMINE HCL 100 MG TAB PO SCH ×2 (09:51→20:30)
[2022-08-21] MEDS: rifAXIMin 550 MG TABLET PO SCH ×2 (09:51→20:30)
[2022-08-21 10:00] LABS: Hemoglobin 13.9 g/dl (14.0-18.0); Mean Platelet Volume 10.2 fL (9.4-12.4); Platelet Count 118 K/uL (130-400); White Blood Count 4.21 K/ul (4.8-10.8)
[2022-08-21] MEDS: POTASSIUM CHLORIDE CRTAB 20 MEQ TABCR PO SCH ×3 (10:01→17:41)
[2022-08-21 10:29] LABS: Mean Corpuscular Hemoglobin 36.6 pg (25.0-34.0); Mean Corpuscular Hgb Conc 37.6 g/dL (32.0-36.0); Mean Corpuscular Volume 97.4 fL (80.0-100.0); RDW Coefficient of Variation 14.6 % (11.5-14.5); RDW Standard Deviation 52.1 fL (36.4-46.3)
[2022-08-21 10:41] LABS: Albumin Globulin Ratio 0.8 (0.9-2); Albumin Level 2.9 gm/dl (3.4-5.0); BUN Creatinine Ratio 20.9 (10-20); Bilirubin,Total 3.3 mg/dl (0.2-1.0); Calcium 8.8 mg/dl (8.5-10.1); Creatinine Clr Calc Pharmacy 79.6 ml/min; Est GFR (African American) 101.8 ml/min; Est GFR (Non-African American) 87.9 ml/min; Globulin 3.6 gm/dl (2.5-4.0); Potassium 3.6 mmol/L (3.5-5.1); Total Protein 6.5 gm/dl (6.0-8.3)
[2022-08-21] MEDS: CHOLECALCIFEROL 1,000 UNITS 25 MCG TAB PO SCH (12:49)
[2022-08-21] MEDS: MELATONIN 3 MG TAB PO SCH (20:29)
--- NOTE | 2022-08-22 06:42 | Hospitalist Progress Note ---
Date of Service August 22, 2022 Assessment & Plan (1) Acute alteration in mental status: (2) Alcoholic cirrhosis of liver: (3) GERD (gastroesophageal reflux disease): (4) Hypertension: (5) COPD (chronic obstructive pulmonary disease): (6) Patient unarousable: Plan Pt is a 71 yo male with PMH of intracranial hemorrhage, alcohol induced cirrhosis, atrial fibrillation, insomnia, gout, carotid artery stenosis, COPD, who was admitted to the hospital for altered mental status. His presentation was unchanged from previous admission. His confusion is secondary to hepatic encephalopathy with possible component of superimposed delirium. Altered Mental Status: 2/2 Hepatic Encephalopathy w/ Superimposed Hyperactive Delirium Baseline mentation - struggles with word finding but is able to communicate more fully and can perform some of his daily activities of living independently. - Know hx of alcoholic cirrhosis with previous HE - Admitted d/t hyperammonemia of 156 - CT Head and CXR w/o acute change - Utox negative. UA negative. - Continue Lactulose with a goal of 2-3 soft formed stools a day, Rifaximin, and Lasix. Continue melatonin 3mg q1800 daily - Delirium precautions ongoing - Patient was unarousable on 08/12. Ammonia was high at 108. Was started on lactulose Q8h enema. Stroke alert called on the night of 08/12, CT head and CTA neck/head were negative. - Patient returned to baseline on 08/13. Continue lactulose. - Patient was agitated on 08/16, asking where his daughter was and saying threatening things to nurses. Haldol 5mg IM Q24H added for severe agitation. - Pt appears to be at baseline, non agitated state 08/17 - 08/20, patient is arousable but non-coherent --- Patient was scheduled to go [facility] on 08/19, insurance declined SNF, retirement care recommend, CM following --- 08/22 Family considering self pay for retirement care Hyperbilirubinemia - Pt with elevated bilirubin at 4.8 which has been elevated in the past but was increasing - Patient was also having some slight RUQ tenderness on PE, resolved 08/19 - Lipase and LFT's are within baseline - US liver showed nonvisualization of the gallbladder and common bile duct as well as cirrhosis w/o hepatic mass - Consider CT if symptoms get worse and bilirubin continues to raise --- 08/21 Bilirubin at 3.3 (from 2.8) Hyponatremia - resolved - 127 on admission, resolved up to 135 (baseline) - Recommend repeat BMP one week after d/c --- Following inpatient Liver Cirrhosis - Patient has a known history of alcoholic cirrhosis. - MELD 18 upon admission --- Following inpatient Atrial Fibrillation - Patient is not on anticoagulation due to recent intraparenchymal hemorrhage - Episodes of irregular rhythm, regular 08/20 Hypertension - Continue home Lisinopril 5 mg and Lasix 40 mg Hx of Intracranial Hemorrhage - Continue Levetiracetam Deconditioning - PT f/u to reeval - recs 12/05 care either at SNF or at home with home health depending on family choice. CM informed. - 08/17 PT noted failure to progress beyond requirement of 24 hour supervision, recommended 24 hour care, PCF, and return home - pt to go to [facility] 08/19, insurance declined SNF --- CM following for possibility of retirement care GERD - Continue Protonix COPD - Continue home inhaler Diet:Easy to chew DVT PPx:SCDs only d/t intracranial hemorrhage hx Dispo:Pending retirement placement Code Status:DNR/DNI Admission and Anticipated Discharge Date Admission Date: July 23, 2022 Supervising Physician Co-Signing Physician Notes I also saw the patient confirmed lebron portions of the history and physical examination. I agree with the impression plan as noted the resident documentation. EXAM 124/67, 61, 20, 36.5, 97% room air Patient is awake. He is semireclined in bed. Nonsensical speech. Lungs clear with nonlabored respirations Heart irregularly irregular DATA () WBC 4.21, hemoglobin 13.9, platelet count 118 Sodium 136, potassium 3.6, BUN 18, creatinine 0.86 Total bilirubin 3.3 IMPRESSION & PLAN Altered mental status, hepatic encephalopathy Dementia Continue current medications and supportive care Thiamine, folate, B12 supplementation Pending placement; he was denied for [facility] facility; looking at [facility] for retirement care Additional per resident documentation Subjective Pt is a 71 yo male with PMH of intracranial hemorrhage, alcohol induced c irrhosis, atrial fibrillation, insomnia, gout, carotid artery stenosis, COPD, who was admitted to the hospital for altered mental status. His presentation was unchanged from previous admission. His confusion is secondary to hepatic encephalopathy with possible component of superimposed delirium. 08/22: Eating breakfast comfortably on arrival. Denies pain. Otherwise no meaningful HPI, patient's baseline. 08/21: Patient resting comfortably. At baseline. No meaningful HPI. Review of Systems Review of Systems: See HPI Physical Exam Physical Exam: Gen: NAD, disoriented Neuro: AO x 1 (self), no focal neurologic deficits at visit Resp:Non-labored, no wheezing/rhonchi/rales, CTAB CV:Regular, normal S1/S2, no M/R/G Abd: Soft, non-distended, no TTP, normoactive bowels, no masses Extr: 2+ dp bilaterally, no edema Results & Data Results & Data ([facility]) Vital Signs (Past 12 Hours) Vital Signs Temp Pulse Resp BP Pulse Ox O2 Del Method 08/21/22 20:43 36.5 C 73 18 112/60 95 Room Air Resident Activity Tracking Resident Involvement: Resident Care Provided Care Provided: Adult Hospital Medicine
[2022-08-22] MEDS: UMECLIDINIUM/VILANTEROL 62.5/25MCG 7 PUFFS/INHALER INH SCH (11:01)
[2022-08-22] MEDS: LACTULOSE SYRUP 30 GM/45 ML UDP PO SCH ×4 (11:01→20:40)
[2022-08-22] MEDS: rifAXIMin 550 MG TABLET PO SCH ×2 (11:03→20:42)
[2022-08-22] MEDS: THIAMINE HCL 100 MG TAB PO SCH ×2 (11:03→20:41)
[2022-08-22] MEDS: PANTOprazole 40 MG TAB PO SCH ×2 (11:04→20:42)
[2022-08-22] MEDS: POTASSIUM CHLORIDE CRTAB 20 MEQ TABCR PO SCH ×3 (11:04→18:32)
[2022-08-22] MEDS: FOLIC ACID 1 MG TAB PO SCH (11:05)
[2022-08-22] MEDS: MULTIVITAMIN TAB PO SCH (11:05)
[2022-08-22] MEDS: levETIRAcetam 500 MG TAB PO SCH ×2 (11:05→20:41)
[2022-08-22] MEDS: FERROUS SULFATE 325 MG TAB PO SCH ×2 (11:06→20:40)
[2022-08-22] MEDS: CYANOCOBALAMIN (B-12) 500 MCG TABLET PO SCH (11:06)
[2022-08-22] MEDS: CHOLECALCIFEROL 1,000 UNITS 25 MCG TAB PO SCH (11:06)
[2022-08-22] MEDS: FUROSEMIDE 40 MG TAB PO SCH ×2 (11:07→18:32)
[2022-08-22] MEDS: lisinopril 5 MG TAB PO SCH (11:08)
[2022-08-22] MEDS: MELATONIN 3 MG TAB PO SCH (20:45)
--- NOTE | 2022-08-23 08:12 | Hospitalist Progress Note ---
Date of Service August 23, 2022 Assessment & Plan (1) Acute alteration in mental status: (2) Alcoholic cirrhosis of liver: (3) GERD (gastroesophageal reflux disease): (4) Hypertension: (5) COPD (chronic obstructive pulmonary disease): (6) Patient unarousable: Plan Pt is a 71 yo male with PMH of intracranial hemorrhage, alcohol induced cirrhosis, atrial fibrillation, insomnia, gout, carotid artery stenosis, COPD, who was admitted to the hospital for altered mental status. His presentation was unchanged from previous admission. His confusion is secondary to hepatic encephalopathy with possible component of superimposed delirium. Altered Mental Status: 2/2 Hepatic Encephalopathy w/ Superimposed Hyperactive Delirium Baseline mentation - struggles with word finding but is able to communicate more fully and can perform some of his daily activities of living independently. - Know hx of alcoholic cirrhosis with previous HE - Admitted d/t hyperammonemia of 156 - CT Head and CXR w/o acute change - Utox negative. UA negative. - Continue Lactulose with a goal of 2-3 soft formed stools a day, Rifaximin, and Lasix. Continue melatonin 3mg q1800 daily - Delirium precautions ongoing - Patient was unarousable on 08/12. Ammonia was high at 108. Was started on lactulose Q8h enema. Stroke alert called on the night of 08/12, CT head and CTA neck/head were negative. - Patient returned to baseline on 08/13. Continue lactulose. - Patient was agitated on 08/16, asking where his daughter was and saying threatening things to nurses. Haldol 5mg IM Q24H added for severe agitation. - Pt appears to be at baseline, non agitated state 08/17 - 08/20, patient is arousable but non-coherent --- 08/23 Pending placement, likely [facility] Hyperbilirubinemia - Pt with elevated bilirubin at 4.8 which has been elevated in the past but was increasing - Patient was also having some slight RUQ tenderness on PE, resolved 08/19 - Lipase and LFT's are within baseline - US liver showed nonvisualization of the gallbladder and common bile duct as well as cirrhosis w/o hepatic mass - Consider CT if symptoms get worse and bilirubin continues to raise - 08/21 Bilirubin at 3.3 --- Following labs every other day Hyponatremia - Baseline 135 Alcoholic Liver Cirrhosis - MELD 18 upon admission - Following Atrial Fibrillation - Patient is not on anticoagulation due to recent intraparenchymal hemorrhage - Episodes of irregular rhythm, regular 08/20-08/23 Hypertension - Continue home Lisinopril 5 mg and Lasix 40 mg Hx of Intracranial Hemorrhage - Continue Levetiracetam Deconditioning - PT f/u to reeval - recs 12/05 care either at SNF or at home with home health depending on family choice. CM informed. - 08/17 PT noted failure to progress beyond requirement of 24 hour supervision, recommended 24 hour care, PCF, and return home - pt to go to [facility] 08/19, insurance declined SNF --- CM following for possibility of halfway care GERD - Continue Protonix COPD - Continue home inhaler Diet:Easy to chew DVT PPx:SCDs only d/t intracranial hemorrhage hx Dispo:Pending halfway placement Code Status:DNR/DNI Admission and Anticipated Discharge Date Admission Date: July 23, 2022 Supervising Physician Co-Signing Physician Notes Patient seen and examined independently of PGY-1 Dr. Chisholm. Agree with history, exam findings, assessment and plan of care as outlined. In brief, Mr. Fortune is a 71 year old male with hx of intracranial hemorrhage, ETOH induced cirrhosis, afib, carotid artery stenosis, COPD admitted with altered mental status. Continues to be a bit confused. No complaints this morning. Did have a large BM last night. VS and nursing notes reviewed. Non-toxic appearing. Heart with regular rate and rhythm. No murmur. No edema. Lungs are clear to auscultation. Abdomen is soft, non-tender. Very minimal asterixis. Oriented to self only. Labs reviewed. 1. Hepatic encephalopathy in the setting of known cirrhosis due to ETOH. Elevated ammonia level on admission. Continue lactulose, rifaximin. Titrate lactulose to 3-4 BMs per day. 2. Hyperbilirubinemia. Downtrending but still mildly elevated. 3. Afib. Rate controlled. Not anticoagulated due to prior hemorrhage. 4. Hypertension. Continue lisinopril and Lasix. 5. Hx of intracranial hemorrhage. Continue Keppra for seizure precautions. 6. Deconditioning. Unable to care for himself. Unfortunately, insurance is declining SNF. Dispo: medically stable for discharge; awaiting placement daughter working on getting set up with [facility] using self-pay. Subjective Pt is a 71 yo male with PMH of intracranial hemorrhage, alcohol induced cirrhosis, atrial fibrillation, insomnia, gout, carotid artery stenosis, COPD, who was admitted to the hospital for altered mental status. His presentation was unchanged from previous admission. His confusion is secondary to hepatic encephalopathy with possible component of superimposed delirium. 114: Patient upright in bed after eating breakfast. No meaningful HPI. Denies pain. Unchanged form baseline. 113: Eating breakfast comfortably on arrival. Denies pain. Otherwise no meaningful HPI, patient's baseline. 11/2: Patient resting comfortably. At baseline. No meaningful HPI. Review of Systems Review of Systems: See HPI Physical Exam Physical Exam: Gen: NAD, disoriented, AO x 1 (self) Resp:Non-labored, no wheezing/rhonchi/rales, CTAB CV:Regular, normal S1/S2, no M/R/G Abd: Soft, non-distended, no TTP, normoactive bowels, no masses Extr: 2+ dp bilaterally, no edema Skin: No rashes lesions or erythema, no jaundice Results & Data Results & Data ([facility]) Vital Signs (Past 12 Hours) Vital Signs Temp Pulse Resp BP Pulse Ox O2 Del Method 08/23/22 07:27 36.7 C 63 16 161/87 H 97 Room Air 08/22/22 21:53 36.5 C 59 L 16 94/57 L 95 Resident Activity Tracking Resident Involvement: Resident Care Provided Care Provided: Adult Hospital Medicine
[2022-08-23] MEDS: FUROSEMIDE 40 MG TAB PO SCH ×2 (08:53→17:36)
[2022-08-23] MEDS: LACTULOSE SYRUP 30 GM/45 ML UDP PO SCH ×4 (08:53→19:31)
[2022-08-23] MEDS: UMECLIDINIUM/VILANTEROL 62.5/25MCG 7 PUFFS/INHALER INH SCH (08:55)
[2022-08-23] MEDS: CHOLECALCIFEROL 1,000 UNITS 25 MCG TAB PO SCH (08:56)
[2022-08-23] MEDS: CYANOCOBALAMIN (B-12) 500 MCG TABLET PO SCH (08:57)
[2022-08-23] MEDS: FERROUS SULFATE 325 MG TAB PO SCH ×2 (08:57→19:30)
[2022-08-23] MEDS: FOLIC ACID 1 MG TAB PO SCH (09:00)
[2022-08-23] MEDS: levETIRAcetam 500 MG TAB PO SCH ×2 (09:01→19:30)
[2022-08-23] MEDS: lisinopril 5 MG TAB PO SCH (09:01)
[2022-08-23] MEDS: MULTIVITAMIN TAB PO SCH (09:02)
[2022-08-23] MEDS: POTASSIUM CHLORIDE CRTAB 20 MEQ TABCR PO SCH ×3 (09:02→17:37)
[2022-08-23] MEDS: rifAXIMin 550 MG TABLET PO SCH ×2 (09:03→20:58)
[2022-08-23] MEDS: PANTOprazole 40 MG TAB PO SCH ×2 (09:03→19:30)
[2022-08-23] MEDS: THIAMINE HCL 100 MG TAB PO SCH ×2 (09:04→19:29)
[2022-08-23 11:26] LABS: Hematocrit (blood only) 36.3 % (40.1-51.0); Mean Platelet Volume 10.5 fL (9.4-12.4); Platelet Count 122 K/uL (130-400); White Blood Count 3.98 K/ul (4.8-10.8)
[2022-08-23 11:53] LABS: Mean Corpuscular Hemoglobin 36.4 pg (25.0-34.0); Mean Corpuscular Hgb Conc 35.8 g/dL (32.0-36.0); Mean Corpuscular Volume 101.7 fL (80.0-100.0); RDW Coefficient of Variation 15.1 % (11.5-14.5); RDW Standard Deviation 57.1 fL (36.4-46.3); Red Blood Count 3.57 M/uL (4.63-6.08)
[2022-08-23 11:54] LABS: BUN Creatinine Ratio 18.3 (10-20); Calcium 8.9 mg/dl (8.5-10.1); Creatinine Clr Calc Pharmacy 65.8 ml/min; Est GFR (African American) 83.9 ml/min; Est GFR (Non-African American) 72.4 ml/min; Potassium 3.9 mmol/L (3.5-5.1)
[2022-08-23] MEDS: MELATONIN 3 MG TAB PO SCH (19:30)
--- NOTE | 2022-08-24 07:04 | Hospitalist Progress Note ---
Date of Service August 24, 2022 Assessment & Plan (1) Acute alteration in mental status: (2) Alcoholic cirrhosis of liver: (3) GERD (gastroesophageal reflux disease): (4) Hypertension: (5) COPD (chronic obstructive pulmonary disease): (6) Patient unarousable: Plan Plan Pt is a 71 yo male with PMH of intracranial hemorrhage, alcohol induced cirrhosis, atrial fibrillation, insomnia, gout, carotid artery stenosis, COPD, who was admitted to the hospital for altered mental status. His presentation was unchanged from previous admission. His confusion is secondary to hepatic encephalopathy with possible component of superimposed delirium. Altered Mental Status: 2/2 Hepatic Encephalopathy w/ Superimposed Hyperactive Delirium Baseline mentation - struggles with word finding but is able to communicate more fully and can perform some of his daily activities of living independently. - Know hx of alcoholic cirrhosis with previous HE - Admitted d/t hyperammonemia of 156 - CT Head and CXR w/o acute change - Utox negative. UA negative. - Continue Lactulose with a goal of 2-3 soft formed stools a day, Rifaximin, and Lasix. Continue melatonin 3mg q1800 daily - Delirium precautions ongoing - Patient was unarousable on 08/12. Ammonia was high at 108. Was started on lactulose Q8h enema. Stroke alert called on the night of 08/12, CT head and CTA neck/head were negative. - Patient returned to baseline on 08/13. Continue lactulose. - Patient was agitated on 08/16, asking where his daughter was and saying threatening things to nurses. Haldol 5mg IM Q24H added for severe agitation. - Pt appears to be at baseline, non agitated state 08/17 - 08/20, patient is arousable but non-coherent --- 08/24 Pending placement, likely [facility] Hyperbilirubinemia - Pt with elevated bilirubin at 4.8 which has been elevated in the past but was increasing - Patient was also having some slight RUQ tenderness on PE, resolved 08/19 - Lipase and LFT's are within baseline - US liver showed nonvisualization of the gallbladder and common bile duct as well as cirrhosis w/o hepatic mass - Consider CT if symptoms get worse and bilirubin continues to raise - 08/21 Bilirubin at 3.3 --- 08/24 Following labs every other day, assess in AM Hyponatremia - Baseline 135 Alcoholic Liver Cirrhosis - MELD 18 upon admission - Following Atrial Fibrillation - Patient is not on anticoagulation due to recent intraparenchymal hemorrhage - Episodes of irregular rhythm, regular 08/20-08/23 Hypertension - Continue home Lisinopril 5 mg and Lasix 40 mg Hx of Intracranial Hemorrhage - Continue Levetiracetam Deconditioning - PT f/u to reeval - recs 12/05 care either at SNF or at home with home health depending on family choice. CM informed. - 08/17 PT noted failure to progress beyond requirement of 24 hour supervision, recommended 24 hour care, PCF, and return home - pt to go to [facility] 08/19, insurance declined SNF --- CM following for possibility of care home care GERD - Continue Protonix COPD - Continue home inhaler Diet:Easy to chew DVT PPx:SCDs only d/t intracranial hemorrhage hx Dispo:Pending care home placement Code Status:DNR/DNI Admission and Anticipated Discharge Date Admission Date: July 23, 2022 Supervising Physician Co-Signing Physician Notes Patient seen and examined independently of PGY-1 Dr. Chisholm. Agree with history, exam findings, assessment and plan of care as outlined. In brief, Mr. Fortune is a 71 year old male with hx of intracranial hemorrhage, ETOH induced cirrhosis, afib, carotid artery stenosis, COPD admitted with altered mental status. Sleeping comfortably this afternoon. VS and nursing notes reviewed. Non-toxic appearing. Heart with regular rate and rhythm. No murmur. No edema. Lungs are clear to auscultation. Abdomen is soft, non-tender. Labs reviewed. 1. Hepatic encephalopathy in the setting of known cirrhosis due to ETOH. Elevated ammonia level on admission. Continue lactulose, rifaximin. Titrate lactulose to 3-4 BMs per day. 2. Hyperbilirubinemia. Downtrending but still mildly elevated. 3. Afib. Rate controlled. Not anticoagulated due to prior hemorrhage. 4. Hypertension. Continue lisinopril and Lasix. 5. Hx of intracranial hemorrhage. Continue Keppra for seizure precautions. 6. Deconditioning. Unable to care for himself. Unfortunately, insurance is declining SNF. Dispo: medically stable for discharge; awaiting placement daughter working on getting set up with [facility] using self-pay. Subjective Pt is a 71 yo male with PMH of intracranial hemorrhage, alcohol induced cirrhosis, atrial fibrillation, insomnia, gout, carotid artery stenosis, COPD, who was admitted to the hospital for altered mental status. His presentation was unchanged from previous admission. His confusion is secondary to hepatic encephalopathy with possible component of superimposed delirium. 08/24: Patient asleep, appears comfortable. No meaningful HPI obtained. 08/23: Patient upright in bed after eating breakfast. No meaningful HPI. Denies pain. Unchanged form baseline. Review of Systems Review of Systems: As per HPI Physical Exam Physical Exam: Gen: NAD, disoriented, AO x 1 (self) Resp:Non-labored, no wheezing/rhonchi/rales, CTAB CV:Regular, normal S1/S2, no M/R/G Abd: Soft, non-distended, no TTP, normoactive bowels, no masses Extr: 2+ dp bilaterally, no edema Skin: No rashes lesions or erythema, no jaundice Results & Data Results & Data ([facility]) Vital Signs (Past 12 Hours) Vital Signs Temp Pulse Resp BP Pulse Ox O2 Del Method 08/23/22 23:25 36.5 C 60 17 98/60 L 96 Room Air Resident Activity Tracking Resident Involvement: Resident Care Provided Care Provided: Adult Hospital Medicine
[2022-08-24] MEDS: FERROUS SULFATE 325 MG TAB PO SCH ×2 (09:17→20:38)
[2022-08-24] MEDS: levETIRAcetam 500 MG TAB PO SCH ×2 (09:17→20:37)
[2022-08-24] MEDS: PANTOprazole 40 MG TAB PO SCH ×2 (09:17→20:38)
[2022-08-24] MEDS: THIAMINE HCL 100 MG TAB PO SCH ×2 (09:17→20:37)
[2022-08-24] MEDS: FUROSEMIDE 40 MG TAB PO SCH ×2 (09:17→17:40)
[2022-08-24] MEDS: CYANOCOBALAMIN (B-12) 500 MCG TABLET PO SCH (09:17)
[2022-08-24] MEDS: FOLIC ACID 1 MG TAB PO SCH (09:17)
[2022-08-24] MEDS: MULTIVITAMIN TAB PO SCH (09:18)
[2022-08-24] MEDS: CHOLECALCIFEROL 1,000 UNITS 25 MCG TAB PO SCH (09:18)
[2022-08-24] MEDS: POTASSIUM CHLORIDE CRTAB 20 MEQ TABCR PO SCH ×3 (09:18→17:40)
[2022-08-24] MEDS: LACTULOSE SYRUP 30 GM/45 ML UDP PO SCH ×4 (09:18→20:38)
[2022-08-24] MEDS: lisinopril 5 MG TAB PO SCH (09:18)
[2022-08-24] MEDS: UMECLIDINIUM/VILANTEROL 62.5/25MCG 7 PUFFS/INHALER INH SCH (09:22)
[2022-08-24] MEDS: rifAXIMin 550 MG TABLET PO SCH ×2 (09:22→20:37)
[2022-08-24] MEDS: MELATONIN 3 MG TAB PO SCH (20:38)
[2022-08-25] MEDS: levETIRAcetam 500 MG TAB PO SCH ×2 (08:21→21:24)
[2022-08-25] MEDS: UMECLIDINIUM/VILANTEROL 62.5/25MCG 7 PUFFS/INHALER INH SCH (08:21)
[2022-08-25] MEDS: FOLIC ACID 1 MG TAB PO SCH (08:21)
[2022-08-25] MEDS: lisinopril 5 MG TAB PO SCH (08:21)
[2022-08-25] MEDS: POTASSIUM CHLORIDE CRTAB 20 MEQ TABCR PO SCH ×3 (08:22→17:48)
[2022-08-25] MEDS: rifAXIMin 550 MG TABLET PO SCH ×2 (08:22→21:23)
[2022-08-25] MEDS: FERROUS SULFATE 325 MG TAB PO SCH ×2 (08:22→21:24)
[2022-08-25] MEDS: MULTIVITAMIN TAB PO SCH (08:22)
[2022-08-25] MEDS: PANTOprazole 40 MG TAB PO SCH ×2 (08:22→21:25)
[2022-08-25] MEDS: CYANOCOBALAMIN (B-12) 500 MCG TABLET PO SCH (08:23)
[2022-08-25] MEDS: CHOLECALCIFEROL 1,000 UNITS 25 MCG TAB PO SCH (08:23)
[2022-08-25] MEDS: FUROSEMIDE 40 MG TAB PO SCH ×2 (08:23→18:14)
[2022-08-25] MEDS: LACTULOSE SYRUP 30 GM/45 ML UDP PO SCH ×4 (08:24→21:25)
[2022-08-25] MEDS: THIAMINE HCL 100 MG TAB PO SCH ×2 (08:24→21:24)
[2022-08-25 11:22] LABS: Hematocrit (blood only) 42.9 % (40.1-51.0); Hemoglobin 15.8 g/dl (14.0-18.0); Mean Platelet Volume 10.4 fL (9.4-12.4); Platelet Count 123 K/uL (130-400); White Blood Count 4.24 K/ul (4.8-10.8)
[2022-08-25 11:42] LABS: BUN Creatinine Ratio 22.3 (10-20); Calcium 9.2 mg/dl (8.5-10.1); Creatinine Clr Calc Pharmacy 72.8 ml/min; Est GFR (African American) 94.8 ml/min; Est GFR (Non-African American) 81.8 ml/min; Potassium 4.3 mmol/L (3.5-5.1)
[2022-08-25 12:04] LABS: Mean Corpuscular Hemoglobin 36.3 pg (25.0-34.0); Mean Corpuscular Hgb Conc 36.8 g/dL (32.0-36.0); Mean Corpuscular Volume 98.6 fL (80.0-100.0); RDW Coefficient of Variation 14.8 % (11.5-14.5); RDW Standard Deviation 54.4 fL (36.4-46.3); Red Blood Count 4.35 M/uL (4.63-6.08)
--- NOTE | 2022-08-25 13:36 | Hospitalist Progress Note ---
Date of Service August 25, 2022 Assessment & Plan (1) Acute alteration in mental status: (2) Alcoholic cirrhosis of liver: (3) GERD (gastroesophageal reflux disease): (4) Hypertension: (5) COPD (chronic obstructive pulmonary disease): (6) Patient unarousable: Plan Plan Pt is a 71 yo male with PMH of intracranial hemorrhage, alcohol induced cirrhosis, atrial fibrillation, insomnia, gout, carotid artery stenosis, COPD, who was admitted to the hospital for altered mental status. His presentation was unchanged from previous admission. His confusion is secondary to hepatic encephalopathy with possible component of superimposed delirium. Altered Mental Status: 2/2 Hepatic Encephalopathy w/ Superimposed Hyperactive Delirium Baseline mentation - struggles with word finding but is able to communicate more fully and can perform some of his daily activities of living independently. - Know hx of alcoholic cirrhosis with previous HE - Admitted d/t hyperammonemia of 156 - CT Head and CXR w/o acute change - Utox negative. UA negative. - Continue Lactulose with a goal of 2-3 soft formed stools a day, Rifaximin, and Lasix. Continue melatonin 3mg q1800 daily - Delirium precautions ongoing - Patient was unarousable on 08/12. Ammonia was high at 108. Was started on lactulose Q8h enema. Stroke alert called on the night of 08/12, CT head and CTA neck/head were negative. - Patient returned to baseline on 08/13. Continue lactulose. - Patient was agitated on 08/16, asking where his daughter was and saying threatening things to nurses. Haldol 5mg IM Q24H added for severe agitation. - Pt appears to be at baseline, non agitated state 08/17 - 08/20, patient is arousable but non-coherent --- 08/25 Pending placement, likely [facility] Hyperbilirubinemia - Pt with elevated bilirubin at 4.8 which has been elevated in the past but was increasing - Patient was also having some slight RUQ tenderness on PE, resolved 08/19 - Lipase and LFT's are within baseline - US liver showed nonvisualization of the gallbladder and common bile duct as well as cirrhosis w/o hepatic mass - Consider CT if symptoms get worse and bilirubin continues to raise --- 08/25 Following labs every other day, bilirubin stable, assess on 08/27 Hyponatremia - Baseline 135 Alcoholic Liver Cirrhosis - MELD 18 upon admission - Following Atrial Fibrillation - Patient is not on anticoagulation due to recent intraparenchymal hemorrhage - Episodes of irregular rhythm, regular 08/20-08/25 Hypertension - Continue home Lisinopril 5 mg and Lasix 40 mg Hx of Intracranial Hemorrhage - Continue Levetiracetam Deconditioning - PT f/u to reeval - recs 12/05 care either at SNF or at home with home health depending on family choice. CM informed. - 08/17 PT noted failure to progress beyond requirement of 24 hour supervision, recommended 24 hour care, PCF, and return home - pt to go to [facility] 08/19, insurance declined SNF --- CM following for possibility of retirement care GERD - Continue Protonix COPD - Continue home inhaler Diet:Easy to chew, small bites DVT PPx:SCDs only d/t intracranial hemorrhage hx Dispo:Pending retirement placement Code Status:DNR/DNI Admission and Anticipated Discharge Date Admission Date: July 23, 2022 Supervising Physician Co-Signing Physician Notes Patient seen and examined independently of PGY-1 Dr. Chisholm. Agree with history, exam findings, assessment and plan of care as outlined. In brief, Mr. Fortune is a 71 year old male with hx of intracranial hemorrhage, ETOH induced cirrhosis, afib, carotid artery stenosis, COPD admitted with altered mental status. Eating breakfast. Attempting to eat the paper receipt that comes with the meal trays. When offered a whole piece of toast instead, he took a bite but was not able adequately break of the piece of bread and needed some assistance. VS and nursing notes reviewed. Non-toxic appearing. Heart with regular rate and rhythm. No murmur. No edema. Lungs are clear to auscultation. Abdomen is soft, non-tender. Oriented to self. Labs reviewed. 1. Hepatic encephalopathy in the setting of known cirrhosis due to ETOH. Elevated ammonia level on admission. Continue lactulose, rifaximin. Titrate lactulose to 3-4 BMs per day. 2. Hyperbilirubinemia. Still mildly elevated, but this may be his baseline based on his chronic hepatic disease. 3. Afib. Rate controlled. Not anticoagulated due to prior hemorrhage. 4. Hypertension. Continue lisinopril and Lasix. 5. Hx of intracranial hemorrhage. Continue Keppra for seizure precautions. 6. Deconditioning. Unable to care for himself. Unfortunately, insurance is declining SNF. Dispo: medically stable for discharge; awaiting placement daughter working on getting set up with [facility] [employer] using self-pay. Subjective Pt is a 71 yo male with PMH of intracranial hemorrhage, alcohol induced cirrhosis, atrial fibrillation, insomnia, gout, carotid artery stenosis, COPD, who was admitted to the hospital for altered mental status. His presentation was unchanged from previous admission. His confusion is secondary to hepatic encephalopathy with possible component of superimposed delirium. 11/6: Patient interactive but not coherent. No meaningful HPI. Appears comfortable. 11/5: Patient asleep, appears comfortable. No meaningful HPI obtained. 11/4: Patient upright in bed after eating breakfast. No meaningful HPI. Denies pain. Unchanged form baseline. Review of Systems Review of Systems: As per HPI Physical Exam Physical Exam: Gen: NAD, disoriented, AO x ? Resp:Non-labored, no wheezing/rhonchi/rales, CTAB CV:Regular, normal S1/S2, no M/R/G Abd: Soft, non-distended, no TTP, normoactive bowels, no masses Extr: 2+ dp bilaterally, no edema Results & Data Results & Data ([facility]) Vital Signs (Past 12 Hours) Vital Signs Temp Pulse Resp BP Pulse Ox O2 Del Method 08/25/22 07:38 36.8 C 71 16 139/66 96 Room Air Resident Activity Tracking Resident Involvement: Resident Care Provided Care Provided: Adult [facility]
[2022-08-25] MEDS: MELATONIN 3 MG TAB PO SCH (21:25)
--- NOTE | 2022-08-26 07:28 | Hospitalist Progress Note ---
Date of Service August 26, 2022 Assessment & Plan (1) Acute alteration in mental status: (2) Alcoholic cirrhosis of liver: (3) GERD (gastroesophageal reflux disease): (4) Hypertension: (5) COPD (chronic obstructive pulmonary disease): (6) Patient unarousable: Plan Plan Pt is a 71 yo male with PMH of intracranial hemorrhage, alcohol induced cirrhosis, atrial fibrillation, insomnia, gout, carotid artery stenosis, COPD, who was admitted to the hospital for altered mental status. His presentation was unchanged from previous admission. His confusion is secondary to hepatic encephalopathy with possible component of superimposed delirium. Altered Mental Status: 2/2 Hepatic Encephalopathy w/ Superimposed Hyperactive Delirium Baseline mentation - struggles with word finding but is able to communicate more fully and can perform some of his daily activities of living independently. - Know hx of alcoholic cirrhosis with previous HE - Admitted d/t hyperammonemia of 156 - CT Head and CXR w/o acute change - Utox negative. UA negative. - Continue Lactulose with a goal of 2-3 soft formed stools a day, Rifaximin, and Lasix. Continue melatonin 3mg q1800 daily - Delirium precautions ongoing - Patient was unarousable on 08/12. Ammonia was high at 108. Was started on lactulose Q8h enema. Stroke alert called on the night of 08/12, CT head and CTA neck/head were negative. - Patient returned to baseline on 08/13. Continue lactulose. - Patient was agitated on 08/16, asking where his daughter was and saying threatening things to nurses. Haldol 5mg IM Q24H added for severe agitation. - Pt appears to be at baseline, non agitated state 08/17 - 08/20, patient is arousable but non-coherent --- 08/26 Pending placement Hyperbilirubinemia - Pt with elevated bilirubin at 4.8 which has been elevated in the past but was increasing - Patient was also having some slight RUQ tenderness on PE, resolved 08/19 - Lipase and LFT's are within baseline - US liver showed nonvisualization of the gallbladder and common bile duct as well as cirrhosis w/o hepatic mass - Consider CT if symptoms get worse and bilirubin continues to raise --- 08/26 Following labs every other day, bilirubin stable, assess on 08/27 Hyponatremia - Baseline 135 Alcoholic Liver Cirrhosis - MELD 18 upon admission - Following Atrial Fibrillation - Patient is not on anticoagulation due to recent intraparenchymal hemorrhage - Episodes of irregular rhythm, regular 08/20-08/25 Hypertension - Continue home Lisinopril 5 mg and Lasix 40 mg Hx of Intracranial Hemorrhage - Continue Levetiracetam Deconditioning - PT f/u to reeval - recs 12/05 care either at SNF or at home with home health depending on family choice. CM informed. - 08/17 PT noted failure to progress beyond requirement of 24 hour supervision, recommended 24 hour care, PCF, and return home - pt to go to [facility] 08/19, insurance declined SNF --- CM following for [facility] of [facility] GERD - Continue Protonix COPD - Continue home inhaler Diet:Easy to chew, small bites DVT PPx:SCDs only d/t intracranial hemorrhage hx Dispo:[facility] Code Status:DNR/DNI Admission and Anticipated Discharge Date Admission Date: July 23, 2022 Supervising Physician Co-Signing Physician Notes I personally examined the patient and verified all lebron points of history and exam, discussed case, and agree with decision making with Dr Chisholm no meaningful HPI / ROS. vitals noted nad heent nc at mmm breathing unlabored no accessory muscles good effort skin no rashes no pallor or icterus neuro no focal deficits 1. Hepatic encephalopathy in the setting of known cirrhosis due to ETOH. Elevated ammonia level on admission. Continue lactulose, rifaximin. Titrate lactulose goal 3-4 BMs per day. 2. Hyperbilirubinemia. Still mildly elevated, but this may be his baseline based on his chronic hepatic disease. 3. Afib. Rate controlled. Not anticoagulated due to prior hemorrhage. 4. Hypertension. Continue lisinopril and Lasix. 5. Hx of intracranial hemorrhage. Continue Keppra for seizure precautions. 6. Deconditioning. Unable to care for himself. Unfortunately, insurance is declining SNF. Dispo: medically stable for discharge; awaiting placement Subjective Pt is a 71 yo male with PMH of intracranial hemorrhage, alcohol induced cirrhosis, atrial fibrillation, insomnia, gout, carotid artery stenosis, COPD, who was admitted to the hospital for altered mental status. His presentation was unchanged from previous admission. His confusion is secondary to hepatic encephalopathy with possible component of superimposed delirium. 08/26: Patient is more conversive today, but remains un-comprehensible. He appears comfortable and denies any pain. No additional meaningful HPI. 08/25: Patient interactive but not coherent. No meaningful HPI. Appears comfortable. Review of Systems Review of Systems: As per HPI Physical Exam Physical Exam: Gen: NAD, disoriented, AO x ? Resp:Non-labored, no wheezing/rhonchi/rales, CTAB CV:Regular, normal S1/S2, no M/R/G Abd: Soft, non-distended, no TTP, normoactive bowels, no masses Extr: 2+ dp bilaterally, no edema Results & Data Results & Data ([facility]) Vital Signs (Past 12 Hours) Vital Signs Temp Pulse Resp BP Pulse Ox O2 Del Method 08/25/22 22:36 36.4 C L 83 18 128/75 96 Room Air Resident Activity Tracking Resident Involvement: Resident Care Provided Care Provided: Adult Hospital Medicine
[2022-08-26] MEDS: FERROUS SULFATE 325 MG TAB PO SCH ×2 (08:13→20:37)
[2022-08-26] MEDS: THIAMINE HCL 100 MG TAB PO SCH ×2 (08:13→20:36)
[2022-08-26] MEDS: rifAXIMin 550 MG TABLET PO SCH ×2 (08:13→20:36)
[2022-08-26] MEDS: PANTOprazole 40 MG TAB PO SCH ×2 (08:13→20:36)
[2022-08-26] MEDS: levETIRAcetam 500 MG TAB PO SCH ×2 (08:13→20:36)
[2022-08-26] MEDS: CYANOCOBALAMIN (B-12) 500 MCG TABLET PO SCH (08:14)
[2022-08-26] MEDS: POTASSIUM CHLORIDE CRTAB 20 MEQ TABCR PO SCH ×3 (08:14→16:32)
[2022-08-26] MEDS: FUROSEMIDE 40 MG TAB PO SCH ×2 (08:15→16:33)
[2022-08-26] MEDS: CHOLECALCIFEROL 1,000 UNITS 25 MCG TAB PO SCH (08:15)
[2022-08-26] MEDS: FOLIC ACID 1 MG TAB PO SCH (08:15)
[2022-08-26] MEDS: lisinopril 5 MG TAB PO SCH (08:15)
[2022-08-26] MEDS: MULTIVITAMIN TAB PO SCH (08:15)
[2022-08-26] MEDS: LACTULOSE SYRUP 30 GM/45 ML UDP PO SCH ×4 (08:16→20:37)
[2022-08-26] MEDS: UMECLIDINIUM/VILANTEROL 62.5/25MCG 7 PUFFS/INHALER INH SCH (08:16)
--- NOTE | 2022-08-26 19:24 | Billing Data ---
Date of Service August 26, 2022 Coding Level of Care Code 44799 Subseq Hosp Care Lvl 1
[2022-08-26] MEDS: MELATONIN 3 MG TAB PO SCH (20:37)
--- NOTE | 2022-08-27 07:20 | Hospitalist Progress Note ---
Date of Service August 27, 2022 Assessment & Plan (1) Acute alteration in mental status: (2) Alcoholic cirrhosis of liver: (3) GERD (gastroesophageal reflux disease): (4) Hypertension: (5) COPD (chronic obstructive pulmonary disease): (6) Patient unarousable: Plan Plan Pt is a 71 yo male with PMH of intracranial hemorrhage, alcohol induced cirrhosis, atrial fibrillation, insomnia, gout, carotid artery stenosis, COPD, who was admitted to the hospital for altered mental status. His presentation was unchanged from previous admission. His confusion is secondary to hepatic encephalopathy with possible component of superimposed delirium. Altered Mental Status: 2/2 Hepatic Encephalopathy w/ Superimposed Hyperactive Delirium Baseline mentation - struggles with word finding but is able to communicate more fully and can perform some of his daily activities of living independently. - Know hx of alcoholic cirrhosis with previous HE - Admitted d/t hyperammonemia of 156 - CT Head and CXR w/o acute change - Utox negative. UA negative. - Continue Lactulose with a goal of 2-3 soft formed stools a day, Rifaximin, and Lasix. Continue melatonin 3mg q1800 daily - Delirium precautions ongoing - Patient was unarousable on 08/12. Ammonia was high at 108. Was started on lactulose Q8h enema. Stroke alert called on the night of 08/12, CT head and CTA neck/head were negative. - Patient returned to baseline on 08/13. Continue lactulose. - Patient was agitated on 08/16, asking where his daughter was and saying threatening things to nurses. Haldol 5mg IM Q24H added for severe agitation. - Pt appears to be at baseline, non agitated state 08/17 - 08/20, patient is arousable but non-coherent --- 08/27 Pending placement Hyperbilirubinemia - Pt with elevated bilirubin at 4.8 which has been elevated in the past but was increasing - Patient was also having some slight RUQ tenderness on PE, resolved 08/19 - Lipase and LFT's are within baseline - US liver showed nonvisualization of the gallbladder and common bile duct as well as cirrhosis w/o hepatic mass - Consider CT if symptoms get worse and bilirubin continues to raise --- 08/27 Following labs every other day, bilirubin stable, assess on 08/29 Hyponatremia - Baseline 135 Alcoholic Liver Cirrhosis - MELD 18 upon admission - Following Atrial Fibrillation - Patient is not on anticoagulation due to recent intraparenchymal hemorrhage - Episodes of irregular rhythm, regular 08/20-08/27 Hypertension - Continue home Lisinopril 5 mg and Lasix 40 mg Hx of Intracranial Hemorrhage - Continue Levetiracetam Deconditioning - PT f/u to reeval - recs 12/05 care either at SNF or at home with home health depending on family choice. CM informed. - 08/17 PT noted failure to progress beyond requirement of 24 hour supervision, recommended 24 hour care, PCF, and return home - pt to go to [facility] 08/19, insurance declined SNF --- CM following for possibility of [facility] care GERD - Continue Protonix COPD - Continue home inhaler Diet:Easy to chew, small bites DVT PPx:SCDs only d/t intracranial hemorrhage hx Dispo:Pending [facility] placement Code Status:DNR/DNI Admission and Anticipated Discharge Date Admission Date: July 23, 2022 Supervising Physician Co-Signing Physician Notes I personally examined the patient and verified all lebron points of history and exam, discussed case, and agree with decision making with Dr Chisholm no meaningful HPI / ROS. still pending placement vitals noted nad heent nc at mmm breathing unlabored no accessory muscles good effort skin no rashes no pallor or icterus neuro no focal deficits 1. Hepatic encephalopathy in the setting of known cirrhosis due to ETOH. Elevated ammonia level on admission. Continue lactulose, rifaximin. Titrate lactulose for a goal of 3-4 BMs per day. 2. Hyperbilirubinemia. Still mildly elevated, but this may be his baseline based on his chronic hepatic disease. 3. Afib. Rate controlled. Not anticoagulated due to prior hemorrhage. 4. Hypertension. Continue lisinopril and Lasix. 5. Hx of intracranial hemorrhage. Continue Keppra for seizure precautions. 6. Deconditioning. Unable to care for himself. Unfortunately, insurance is declining SNF. family working w case management on placement options Dispo: medically stable for discharge; awaiting placement Subjective Pt is a 71 yo male with PMH of intracranial hemorrhage, alcohol induced cirrhosis, atrial fibrillation, insomnia, gout, carotid artery stenosis, COPD, who was admitted to the hospital for altered mental status. His presentation was unchanged from previous admission. His confusion is secondary to hepatic encephalopathy with possible component of superimposed delirium. 08/27: Patient states he wants to go home. Otherwise, no meaningful HPI. States he is not in pain. 08/26: Patient is more conversive today, but remains un-comprehensible. He appears comfortable and denies any pain. No additional meaningful HPI. Review of Systems Review of Systems: As per HPI Physical Exam Physical Exam: Gen: NAD, disoriented, AO x ? Resp:Non-labored, no wheezing/rhonchi/rales, CTAB CV:Regular, normal S1/S2, no M/R/G Abd: Soft, non-distended, no TTP, normoactive bowels, no masses Extr: 2+ dp bilaterally, no edema Results & Data Results & Data ([facility]) Vital Signs (Past 12 Hours) Vital Signs Temp Pulse Resp BP Pulse Ox O2 Del Method 08/26/22 23:06 36.5 C 74 18 112/70 95 Room Air Resident Activity Tracking Resident Involvement: Resident Care Provided Care Provided: Adult Hospital Medicine
[2022-08-27] MEDS: THIAMINE HCL 100 MG TAB PO SCH ×2 (09:54→19:34)
[2022-08-27] MEDS: LACTULOSE SYRUP 30 GM/45 ML UDP PO SCH ×4 (09:54→19:35)
[2022-08-27] MEDS: CHOLECALCIFEROL 1,000 UNITS 25 MCG TAB PO SCH (09:54)
[2022-08-27] MEDS: FUROSEMIDE 40 MG TAB PO SCH ×2 (09:55→18:18)
[2022-08-27] MEDS: rifAXIMin 550 MG TABLET PO SCH ×2 (09:55→19:34)
[2022-08-27] MEDS: FERROUS SULFATE 325 MG TAB PO SCH ×2 (09:55→19:33)
[2022-08-27] MEDS: levETIRAcetam 500 MG TAB PO SCH ×2 (09:55→19:33)
[2022-08-27] MEDS: PANTOprazole 40 MG TAB PO SCH ×2 (09:55→19:34)
[2022-08-27] MEDS: CYANOCOBALAMIN (B-12) 500 MCG TABLET PO SCH (09:55)
[2022-08-27] MEDS: POTASSIUM CHLORIDE CRTAB 20 MEQ TABCR PO SCH ×3 (09:55→18:18)
[2022-08-27] MEDS: MULTIVITAMIN TAB PO SCH (09:55)
[2022-08-27] MEDS: UMECLIDINIUM/VILANTEROL 62.5/25MCG 7 PUFFS/INHALER INH SCH (09:56)
[2022-08-27] MEDS: lisinopril 5 MG TAB PO SCH (09:56)
[2022-08-27] MEDS: FOLIC ACID 1 MG TAB PO SCH (09:57)
[2022-08-27 10:53] LABS: Hematocrit (blood only) 38.4 % (40.1-51.0); Hemoglobin 14.2 g/dl (14.0-18.0); Mean Platelet Volume 10.7 fL (9.4-12.4); Platelet Count 96 K/uL (130-400); White Blood Count 4.12 K/ul (4.8-10.8)
[2022-08-27 11:12] LABS: Albumin Globulin Ratio 0.9 (0.9-2); BUN Creatinine Ratio 24.8 (10-20); Bilirubin,Total 3.7 mg/dl (0.2-1.0); Creatinine Clr Calc Pharmacy 63.8 ml/min; Est GFR (African American) 86.9 ml/min; Globulin 3.5 gm/dl (2.5-4.0); Potassium 4.4 mmol/L (3.5-5.1); Total Protein 6.5 gm/dl (6.0-8.3)
[2022-08-27 11:42] LABS: Mean Corpuscular Hemoglobin 36.5 pg (25.0-34.0); Mean Corpuscular Volume 98.7 fL (80.0-100.0); RDW Coefficient of Variation 14.7 % (11.5-14.5); RDW Standard Deviation 53.4 fL (36.4-46.3); Red Blood Count 3.89 M/uL (4.63-6.08)
--- NOTE | 2022-08-27 19:16 | Billing Data ---
Date of Service August 27, 2022 Coding Level of Care Code 87206 Subseq Hosp Care Lvl 1
[2022-08-27] MEDS: MELATONIN 3 MG TAB PO SCH (19:35)
--- NOTE | 2022-08-28 06:59 | Hospitalist Progress Note ---
Date of Service August 28, 2022 Assessment & Plan (1) Acute alteration in mental status: (2) Alcoholic cirrhosis of liver: (3) GERD (gastroesophageal reflux disease): (4) Hypertension: (5) COPD (chronic obstructive pulmonary disease): (6) Patient unarousable: Plan Plan Pt is a 71 yo male with PMH of intracranial hemorrhage, alcohol induced cirrhosis, atrial fibrillation, insomnia, gout, carotid artery stenosis, COPD, who was admitted to the hospital for altered mental status. His presentation was unchanged from previous admission. His confusion is secondary to hepatic encephalopathy with possible component of superimposed delirium. Altered Mental Status: 2/2 Hepatic Encephalopathy w/ Superimposed Hyperactive Delirium Baseline mentation - struggles with word finding but is able to communicate more fully and can perform some of his daily activities of living independently. - Know hx of alcoholic cirrhosis with previous HE - Admitted d/t hyperammonemia of 156 - CT Head and CXR w/o acute change - Utox negative. UA negative. - Continue Lactulose with a goal of 2-3 soft formed stools a day, Rifaximin, and Lasix. Continue melatonin 3mg q1800 daily - Delirium precautions ongoing - Patient was unarousable on 08/12. Ammonia was high at 108. Was started on lactulose Q8h enema. Stroke alert called on the night of 08/12, CT head and CTA neck/head were negative. - Patient returned to baseline on 08/13. Continue lactulose. - Patient was agitated on 08/16, asking where his daughter was and saying threatening things to nurses. Haldol 5mg IM Q24H added for severe agitation. - Pt appears to be at baseline, non agitated state 08/17 - 08/20, patient is arousable but non-coherent --- Pending placement Hyperbilirubinemia - Pt with elevated bilirubin at 4.8 which has been elevated in the past but was increasing - Patient was also having some slight RUQ tenderness on PE, resolved 08/19 - Lipase and LFT's are within baseline - US liver showed nonvisualization of the gallbladder and common bile duct as well as cirrhosis w/o hepatic mass - Consider CT if symptoms get worse and bilirubin continues to raise --- Following labs every other day, bilirubin stable Hyponatremia - Baseline 135 Alcoholic Liver Cirrhosis - MELD 18 upon admission - Following Atrial Fibrillation - Patient is not on anticoagulation due to recent intraparenchymal hemorrhage - Episodes of irregular rhythm, regular 08/20-08/27 Hypertension - Continue home Lisinopril 5 mg and Lasix 40 mg Hx of Intracranial Hemorrhage - Continue Levetiracetam Deconditioning - PT f/u to reeval - recs 12/05 care either at SNF or at home with home health depending on family choice. CM informed. - 08/17 PT noted failure to progress beyond requirement of 24 hour supervision, recommended 24 hour care, PCF, and return home - pt to go to [facility] 08/19, insurance declined SNF --- CM following for possibility of care home care GERD - Continue Protonix COPD - Continue home inhaler Diet:Easy to chew, small bites DVT PPx:SCDs only d/t intracranial hemorrhage hx Dispo:Pending care home placement Code Status:DNR/DNI Admission and Anticipated Discharge Date Admission Date: July 23, 2022 Supervising Physician Co-Signing Physician Notes I personally examined the patient and verified all lebron points of history and exam, discussed case, and agree with decision making with Dr Chisholm no meaningful HPI / ROS. still pending placement vitals noted nad heent nc at mmm breathing unlabored no accessory muscles good effort skin no rashes no pallor or icterus neuro no focal deficits 1. Hepatic encephalopathy in the setting of known cirrhosis due to ETOH. Elevated ammonia level on admission. Continue lactulose, rifaximin. Titrate lactulose for a goal of 3-4 BMs per day. 2. Hyperbilirubinemia. Still mildly elevated, but this may be his baseline based on his chronic hepatic disease. 3. Afib. Rate controlled. Not anticoagulated due to prior hemorrhage. 4. Hypertension. Continue lisinopril and Lasix. 5. Hx of intracranial hemorrhage. Continue Keppra for seizure precautions. 6. Deconditioning. Unable to care for himself. Unfortunately, insurance is declining SNF. family working w case management on placement options Dispo: medically stable for discharge; awaiting placement Subjective Pt is a 71 yo male with PMH of intracranial hemorrhage, alcohol induced cirrhosis, atrial fibrillation, insomnia, gout, carotid artery stenosis, COPD, who was admitted to the hospital for altered mental status. His presentation was unchanged from previous admission. His confusion is secondary to hepatic encephalopathy with possible component of superimposed delirium. 08/28: Patient is anxious to leave the hospital. He denies pain. Notes he wants to go home. No additional meaningful HPI. 08/27: Patient states he wants to go home. Otherwise, no meaningful HPI. States he is not in pain. Review of Systems Review of Systems: As per HPI Physical Exam Physical Exam: Gen: NAD, disoriented, AO x ? Resp:Non-labored, no wheezing/rhonchi/rales, CTAB CV:Regular, normal S1/S2, no M/R/G Abd: Soft, non-distended, no TTP, normoactive bowels, no masses Extr: 2+ dp bilaterally, no edema Results & Data Results & Data ([facility]) Vital Signs (Past 12 Hours) Vital Signs Temp Pulse Resp BP Pulse Ox 08/27/22 21:39 36.5 C 66 96 H 103/57 L 96 Resident Activity Tracking Resident Involvement: Resident Care Provided Care Provided: Adult [facility] Medicine
[2022-08-28] MEDS: PANTOprazole 40 MG TAB PO SCH ×2 (08:48→19:45)
[2022-08-28] MEDS: levETIRAcetam 500 MG TAB PO SCH ×2 (08:48→19:45)
[2022-08-28] MEDS: FERROUS SULFATE 325 MG TAB PO SCH ×2 (08:48→19:43)
[2022-08-28] MEDS: rifAXIMin 550 MG TABLET PO SCH ×2 (08:48→19:44)
[2022-08-28] MEDS: THIAMINE HCL 100 MG TAB PO SCH ×2 (08:48→19:44)
[2022-08-28] MEDS: FOLIC ACID 1 MG TAB PO SCH (08:49)
[2022-08-28] MEDS: CHOLECALCIFEROL 1,000 UNITS 25 MCG TAB PO SCH (08:49)
[2022-08-28] MEDS: CYANOCOBALAMIN (B-12) 500 MCG TABLET PO SCH (08:49)
[2022-08-28] MEDS: MULTIVITAMIN TAB PO SCH (08:49)
[2022-08-28] MEDS: lisinopril 5 MG TAB PO SCH (08:49)
[2022-08-28] MEDS: LACTULOSE SYRUP 30 GM/45 ML UDP PO SCH ×4 (08:50→19:45)
[2022-08-28] MEDS: FUROSEMIDE 40 MG TAB PO SCH ×2 (08:51→17:45)
[2022-08-28] MEDS: UMECLIDINIUM/VILANTEROL 62.5/25MCG 7 PUFFS/INHALER INH SCH (09:12)
[2022-08-28] MEDS: POTASSIUM CHLORIDE CRTAB 20 MEQ TABCR PO SCH ×3 (10:27→17:20)
--- NOTE | 2022-08-28 17:39 | Billing Data ---
Date of Service August 28, 2022 Coding Level of Care Code 75091 Subseq Hosp Care Lvl 1
[2022-08-28] MEDS: MELATONIN 3 MG TAB PO SCH (19:46)
--- NOTE | 2022-08-29 08:04 | Hospitalist Progress Note ---
Date of Service August 29, 2022 Assessment & Plan (1) Acute alteration in mental status: (2) Alcoholic cirrhosis of liver: (3) GERD (gastroesophageal reflux disease): (4) Hypertension: (5) COPD (chronic obstructive pulmonary disease): (6) Patient unarousable: Plan Plan Pt is a 71 yo male with PMH of intracranial hemorrhage, alcohol induced cirrhosis, atrial fibrillation, insomnia, gout, carotid artery stenosis, COPD, who was admitted to the hospital for altered mental status. His presentation was unchanged from previous admission. His confusion is secondary to hepatic encephalopathy with possible component of superimposed delirium. Altered Mental Status: 2/2 Hepatic Encephalopathy w/ Superimposed Hyperactive Delirium Baseline mentation - struggles with word finding but is able to communicate more fully and can perform some of his daily activities of living independently. - Know hx of alcoholic cirrhosis with previous HE - Admitted d/t hyperammonemia of 156 - CT Head and CXR w/o acute change - Utox negative. UA negative. - Continue Lactulose with a goal of 2-3 soft formed stools a day, Rifaximin, and Lasix. Continue melatonin 3mg q1800 daily - Delirium precautions ongoing - Patient was unarousable on 08/12. Ammonia was high at 108. Was started on lactulose Q8h enema. Stroke alert called on the night of 08/12, CT head and CTA neck/head were negative. - Patient returned to baseline on 08/13. Continue lactulose. - Patient was agitated on 08/16, asking where his daughter was and saying threatening things to nurses. Haldol 5mg IM Q24H added for severe agitation. - Pt appears to be at baseline, non agitated state 08/17 - 08/20, patient is arousable but non-coherent --- Pending placement Hyperbilirubinemia - Pt with elevated bilirubin at 4.8 which has been elevated in the past but was increasing - Patient was also having some slight RUQ tenderness on PE, resolved 08/19 - Lipase and LFT's are within baseline - US liver showed nonvisualization of the gallbladder and common bile duct as well as cirrhosis w/o hepatic mass - Consider CT if symptoms get worse and bilirubin continues to raise --- Following labs every other day, bilirubin stable Hyponatremia - Baseline 135 Alcoholic Liver Cirrhosis - MELD 18 upon admission - Following Atrial Fibrillation - Patient is not on anticoagulation due to recent intraparenchymal hemorrhage - Episodes of irregular rhythm, regular 08/20-08/27 Hypertension - Continue home Lisinopril 5 mg and Lasix 40 mg Hx of Intracranial Hemorrhage - Continue Levetiracetam Deconditioning - PT f/u to reeval - recs 12/05 care either at SNF or at home with home health depending on family choice. CM informed. - 08/17 PT noted failure to progress beyond requirement of 24 hour supervision, recommended 24 hour care, PCF, and return home - pt to go to [facility] 08/19, insurance declined SNF --- CM following for possibility of alf care GERD - Continue Protonix COPD - Continue home inhaler Diet:Easy to chew, small bites DVT PPx:SCDs only d/t intracranial hemorrhage hx Dispo:Pending alf placement Code Status:DNR/DNI Admission and Anticipated Discharge Date Admission Date: July 23, 2022 Supervising Physician Co-Signing Physician Notes I personally examined the patient and verified all lebron points of history and exam, discussed case, and agree with decision making with Dr Chisholm no meaningful HPI / ROS. still pending placement. Is trying to drink out of his straw, but it is not in the cup. I assist him. vitals noted nad heent nc at mmm breathing unlabored no accessory muscles good effort skin no rashes no pallor or icterus neuro no focal deficits 1. Hepatic encephalopathy in the setting of known cirrhosis due to ETOH. Elevated ammonia level on admission. Continue lactulose, rifaximin. Titrate lactulose for a goal of 3-4 BMs per day. 2. Hyperbilirubinemia. Related to chronic liver disease 3. Afib. Rate controlled. Not anticoagulated due to prior hemorrhage. 4. Hypertension. Continue lisinopril and Lasix. 5. Hx of intracranial hemorrhage. Continue Keppra for seizure precautions. 6. Deconditioning. Unable to care for himself. Unfortunately, insurance is declining SNF. family working w case management on placement options Dispo: medically stable for discharge; awaiting placement Subjective Pt is a 71 yo male with PMH of intracranial hemorrhage, alcohol induced cirrhosis, atrial fibrillation, insomnia, gout, carotid artery stenosis, COPD, who was admitted to the hospital for altered mental status. His presentation was unchanged from previous admission. His confusion is secondary to hepatic encephalopathy with possible component of superimposed delirium. 08/29: Patient sleeping upon arrival, aroused to light stimuli and returned to sleep. No meaningful HPI. 08/28: Patient is anxious to leave the hospital. He denies pain. Notes he wants to go home. No additional meaningful HPI. Review of Systems Review of Systems: As per HPI Physical Exam Physical Exam: Gen: NAD, disoriented, AO x ? Resp:Non-labored, no wheezing/rhonchi/rales, CTAB CV:Irregular-irregular, normal S1/S2, no M/R/G Abd: Soft, non-distended, no TTP, normoactive bowels, no masses Extr: 2+ dp bilaterally, no edema Results & Data Results & [facility] ([facility]) Vital Signs (Past 12 Hours) Vital Signs Temp Pulse Resp BP Pulse Ox O2 Del Method 08/29/22 07:31 36.4 C L 64 17 116/65 98 Room Air 08/28/22 22:17 36.6 C 73 16 97/56 L 94 Resident Activity Tracking Resident Involvement: Resident Care Provided Care Provided: Adult Hospital Medicine
[2022-08-29] MEDS: levETIRAcetam 500 MG TAB PO SCH ×2 (08:40→20:00)
[2022-08-29] MEDS: PANTOprazole 40 MG TAB PO SCH ×2 (08:40→20:07)
[2022-08-29] MEDS: THIAMINE HCL 100 MG TAB PO SCH ×2 (08:40→20:09)
[2022-08-29] MEDS: FUROSEMIDE 40 MG TAB PO SCH ×2 (08:40→17:23)
[2022-08-29] MEDS: lisinopril 5 MG TAB PO SCH (08:41)
[2022-08-29] MEDS: FOLIC ACID 1 MG TAB PO SCH (08:41)
[2022-08-29] MEDS: rifAXIMin 550 MG TABLET PO SCH ×2 (08:41→20:08)
[2022-08-29] MEDS: CHOLECALCIFEROL 1,000 UNITS 25 MCG TAB PO SCH (08:41)
[2022-08-29] MEDS: CYANOCOBALAMIN (B-12) 500 MCG TABLET PO SCH (08:41)
[2022-08-29] MEDS: FERROUS SULFATE 325 MG TAB PO SCH ×2 (08:41→20:00)
[2022-08-29] MEDS: MULTIVITAMIN TAB PO SCH (08:42)
[2022-08-29] MEDS: POTASSIUM CHLORIDE CRTAB 20 MEQ TABCR PO SCH ×2 (08:42)
[2022-08-29] MEDS: UMECLIDINIUM/VILANTEROL 62.5/25MCG 7 PUFFS/INHALER INH SCH (08:44)
[2022-08-29] MEDS: LACTULOSE SYRUP 30 GM/45 ML UDP PO SCH ×4 (08:44→20:01)
[2022-08-29 11:49] LABS: Albumin Globulin Ratio 0.9 (0.9-2); Albumin Level 3.2 gm/dl (3.4-5.0); BUN Creatinine Ratio 24.1 (10-20); Bilirubin,Total 3.3 mg/dl (0.2-1.0); Calcium 9.3 mg/dl (8.5-10.1); Creatinine Clr Calc Pharmacy 59.7 ml/min; Est GFR (African American) 80.2 ml/min; Est GFR (Non-African American) 69.2 ml/min; Globulin 3.7 gm/dl (2.5-4.0); Potassium 5.4 mmol/L (3.5-5.1); Total Protein 6.9 gm/dl (6.0-8.3)
--- NOTE | 2022-08-29 18:20 | Billing Data ---
Date of Service August 29, 2022 Coding Level of Care Code 25031 Subseq Hosp Care Lvl 1
[2022-08-29] MEDS: MELATONIN 3 MG TAB PO SCH (20:11)
--- NOTE | 2022-08-30 07:03 | Hospitalist Progress Note ---
Date of Service August 30, 2022 Assessment & Plan (1) Acute alteration in mental status: (2) Alcoholic cirrhosis of liver: (3) GERD (gastroesophageal reflux disease): (4) Hypertension: (5) COPD (chronic obstructive pulmonary disease): (6) Patient unarousable: Plan Plan Pt is a 71 yo male with PMH of intracranial hemorrhage, alcohol induced cirrhosis, atrial fibrillation, insomnia, gout, carotid artery stenosis, COPD, who was admitted to the hospital for altered mental status. His presentation was unchanged from previous admission. His confusion is secondary to hepatic encephalopathy with possible component of superimposed delirium. Altered Mental Status: 2/2 Hepatic Encephalopathy w/ Superimposed Hyperactive Delirium Baseline mentation - struggles with word finding but is able to communicate more fully and can perform some of his daily activities of living independently. - Know hx of alcoholic cirrhosis with previous HE - Admitted d/t hyperammonemia of 156 - CT Head and CXR w/o acute change - Utox negative. UA negative. - Continue Lactulose with a goal of 2-3 soft formed stools a day, Rifaximin, and Lasix. Continue melatonin 3mg q1800 daily - Delirium precautions ongoing - Patient was unarousable on 08/12. Ammonia was high at 108. Was started on lactulose Q8h enema. Stroke alert called on the night of 08/12, CT head and CTA neck/head were negative. - Patient returned to baseline on 08/13. Continue lactulose. - Patient was agitated on 08/16, asking where his daughter was and saying threatening things to nurses. Haldol 5mg IM Q24H added for severe agitation. - Pt appears to be at baseline, non agitated state 08/17 - 08/20, patient is arousable but non-coherent --- Pending placement Hyperbilirubinemia - Pt with elevated bilirubin at 4.8 which has been elevated in the past but was increasing - Patient was also having some slight RUQ tenderness on PE, resolved 08/19 - Lipase and LFT's are within baseline - US liver showed nonvisualization of the gallbladder and common bile duct as well as cirrhosis w/o hepatic mass - Consider CT if symptoms get worse and bilirubin continues to raise --- Following labs every other day, bilirubin stable Hyponatremia - Baseline 135 Alcoholic Liver Cirrhosis - MELD 18 upon admission - Following Atrial Fibrillation - Patient is not on anticoagulation due to recent intraparenchymal hemorrhage - Episodes of irregular rhythm, regular 08/20-08/27 Hypertension - Continue home Lisinopril 5 mg and Lasix 40 mg Hx of Intracranial Hemorrhage - Continue Levetiracetam Deconditioning - PT f/u to reeval - recs 12/05 care either at SNF or at home with home health depending on family choice. CM informed. - 08/17 PT noted failure to progress beyond requirement of 24 hour supervision, recommended 24 hour care, PCF, and return home - pt to go to [facility] 08/19, insurance declined SNF --- CM following for possibility of shelter care GERD - Continue Protonix COPD - Continue home inhaler Diet:Easy to chew, small bites DVT PPx:SCDs only d/t intracranial hemorrhage hx Dispo:Pending shelter placement Code Status:DNR/DNI Admission and Anticipated Discharge Date Admission Date: July 23, 2022 Supervising Physician Co-Signing Physician Notes I personally examined the patient and verified all lebron points of history and exam, discussed case, and agree with decision making with Dr Chisholm no meaningful HPI / ROS. Being repositioned in bed vitals noted nad heent nc at mmm breathing unlabored no accessory muscles good effort skin no rashes no pallor or icterus neuro no focal deficits 1. Hepatic encephalopathy in the setting of known cirrhosis due to ETOH. Elevated ammonia level on admission. Continue lactulose, rifaximin. Titrate lactulose for a goal of 3-4 BMs per day. 2. Hyperbilirubinemia. Related to chronic liver disease 3. Afib. Rate controlled. Not anticoagulated due to prior hemorrhage. 4. Hypertension. Continue lisinopril and Lasix. 5. Hx of intracranial hemorrhage. Continue Keppra for seizure precautions. 6. Deconditioning. Unable to care for himself. Unfortunately, insurance is declining SNF. family still working w case management on placement options Dispo: medically stable for discharge; still awaiting placement Subjective Pt is a 71 yo male with PMH of intracranial hemorrhage, alcohol induced cirrhosis, atrial fibrillation, insomnia, gout, carotid artery stenosis, COPD, who was admitted to the hospital for altered mental status. His presentation was unchanged from previous admission. His confusion is secondary to hepatic encephalopathy with possible component of superimposed delirium. 08/30: Patient awake in bed, appearing comfortable. Moderately conversive, but not intelligible. No meaningful HPI. 08/29: Patient sleeping upon arrival, aroused to light stimuli and returned to sleep. No meaningful HPI. Review of Systems Review of Systems: As per HPI Physical Exam Physical Exam: Gen: NAD, disoriented, AO x ? Resp:Non-labored, no wheezing/rhonchi/rales, CTAB CV:Irregular-irregular, normal S1/S2, no M/R/G Abd: Soft, non-distended, no TTP, normoactive bowels, no masses Extr: 2+ dp bilaterally, no edema Results & Data Results & Data ([facility]) Vital Signs (Past 12 Hours) Vital Signs Temp Pulse Resp BP Pulse Ox 08/29/22 21:42 36.5 C 80 16 92/56 L 94 Resident Activity Tracking Resident Involvement: Resident Care Provided Care Provided: Adult Hospital Medicine
[2022-08-30] MEDS: THIAMINE HCL 100 MG TAB PO SCH ×2 (08:15→20:29)
[2022-08-30] MEDS: CHOLECALCIFEROL 1,000 UNITS 25 MCG TAB PO SCH (08:15)
[2022-08-30] MEDS: CYANOCOBALAMIN (B-12) 500 MCG TABLET PO SCH (08:15)
[2022-08-30] MEDS: MULTIVITAMIN TAB PO SCH (08:15)
[2022-08-30] MEDS: FUROSEMIDE 40 MG TAB PO SCH ×2 (08:16→16:20)
[2022-08-30] MEDS: LACTULOSE SYRUP 30 GM/45 ML UDP PO SCH ×4 (08:16→20:29)
[2022-08-30] MEDS: levETIRAcetam 500 MG TAB PO SCH ×2 (08:16→20:28)
[2022-08-30] MEDS: PANTOprazole 40 MG TAB PO SCH ×2 (08:16→20:29)
[2022-08-30] MEDS: rifAXIMin 550 MG TABLET PO SCH ×2 (08:16→20:28)
[2022-08-30] MEDS: FOLIC ACID 1 MG TAB PO SCH (08:16)
[2022-08-30] MEDS: FERROUS SULFATE 325 MG TAB PO SCH ×2 (08:17→20:29)
[2022-08-30] MEDS: UMECLIDINIUM/VILANTEROL 62.5/25MCG 7 PUFFS/INHALER INH SCH (08:17)
[2022-08-30 10:32] LABS: Albumin Globulin Ratio 0.9 (0.9-2); Albumin Level 2.9 gm/dl (3.4-5.0); Bilirubin,Total 2.8 mg/dl (0.2-1.0); Calcium 8.4 mg/dl (8.5-10.1); Creatinine Clr Calc Pharmacy 61.9 ml/min; Est GFR (African American) 83.9 ml/min; Est GFR (Non-African American) 72.4 ml/min; Globulin 3.4 gm/dl (2.5-4.0); Potassium 4.1 mmol/L (3.5-5.1); Total Protein 6.3 gm/dl (6.0-8.3)
--- NOTE | 2022-08-30 14:31 | Billing Data ---
Date of Service August 30, 2022 Coding Level of Care Code 24488 Subseq Hosp Care Lvl 1
[2022-08-30] MEDS: MELATONIN 3 MG TAB PO SCH (20:28)
--- NOTE | 2022-08-31 07:32 | Hospitalist Progress Note ---
Date of Service August 31, 2022 Assessment & Plan (1) Acute alteration in mental status: (2) Alcoholic cirrhosis of liver: (3) GERD (gastroesophageal reflux disease): (4) Hypertension: (5) COPD (chronic obstructive pulmonary disease): (6) Patient unarousable: Plan Plan Pt is a 71 yo male with PMH of intracranial hemorrhage, alcohol induced cirrhosis, atrial fibrillation, insomnia, gout, carotid artery stenosis, COPD, who was admitted to the hospital for altered mental status. His presentation was unchanged from previous admission. His confusion is secondary to hepatic encephalopathy with possible component of superimposed delirium. Altered Mental Status: 2/2 Hepatic Encephalopathy w/ Superimposed Hyperactive Delirium Baseline mentation - struggles with word finding but is able to communicate more fully and can perform some of his daily activities of living independently. - Know hx of alcoholic cirrhosis with previous HE - Admitted d/t hyperammonemia of 156 - CT Head and CXR w/o acute change - Utox negative. UA negative. - Continue melatonin 3mg q1800 daily - Delirium precautions ongoing ---Continue lactulose, rifaximin. Goal of 3-4 BMs per day --- Pending placement Hyperbilirubinemia - Pt with elevated bilirubin at 4.8 secondary to chronic liver disease - Lipase and LFT's are within baseline - US liver showed nonvisualization of the gallbladder and common bile duct as well as cirrhosis w/o hepatic mass --- Following labs every other day, bilirubin stable Hyponatremia - Baseline 135 Alcoholic Liver Cirrhosis - MELD 18 upon admission - Following Atrial Fibrillation - Patient is not on anticoagulation due to recent intraparenchymal hemorrhage - Episodes of irregular rhythm, regular 08/20-08/27 Hypertension - Continue home Lisinopril 5 mg and Lasix 40 mg Hx of Intracranial Hemorrhage - Continue Levetiracetam Deconditioning - PT f/u to reeval - recs 12/05 care either at SNF or at home with home health depending on family choice. CM informed. - 08/17 PT noted failure to progress beyond requirement of 24 hour supervision, recommended 24 hour care, PCF, and return home - pt to go to [facility] 08/19, insurance declined SNF --- CM following for possibility of correction care GERD - Continue Protonix COPD - Continue home inhaler Diet:Easy to chew, small bites DVT PPx:SCDs only d/t intracranial hemorrhage hx Dispo:Pending correction placement Code Status:DNR/DNI Admission and Anticipated Discharge Date Admission Date: July 23, 2022 Supervising Physician Co-Signing Physician Notes I personally examined the patient and verified all lebron points of history and exam, discussed case, and agree with decision making with Dr Claros no meaningful HPI / ROS. vitals noted nad heent nc at mmm breathing unlabored no accessory muscles good effort skin no rashes no pallor or icterus neuro no focal deficits 1. Hepatic encephalopathy in the setting of known cirrhosis due to ETOH. Elevated ammonia level on admission. Continue lactulose, rifaximin. Titrate la ctulose for a goal of 3-4 BMs per day. 2. Hyperbilirubinemia. Related to chronic liver disease 3. Afib. Rate controlled. Not anticoagulated due to prior hemorrhage. 4. Hypertension. Continue lisinopril and Lasix. 5. Hx of intracranial hemorrhage. Continue Keppra for seizure precautions. 6. Deconditioning. Unable to care for himself. Unfortunately, insurance declined SNF. family still working w case management on placement options Dispo: medically stable for discharge; still awaiting placement Subjective Pt is a 71 yo male with PMH of intracranial hemorrhage, alcohol induced cirrhosis, atrial fibrillation, insomnia, gout, carotid artery stenosis, COPD, who was admitted to the hospital for altered mental status. His presentation was unchanged from previous admission. His confusion is secondary to hepatic encephalopathy with possible component of superimposed delirium. Resting comfortably this morning without complainants. HPI limited due to cogn itive status. Review of Systems Review of Systems: limited due to cognitive status Physical Exam Physical Exam: Constitutional: well-appearing, no acute distress HEENT: NCAT, no conjunctival injection CV: regular rhythm, no murmur appreciated, extremities well-perfused, no LE edema Resp: CTABL, no wheezes/rales/rhonchi appreciated, no increased work of breathing GI: soft, nondistended, nontender, BS normoactive MSK: no gross deformities appreciated Skin: warm, dry, no rash appreciated Neuro: alert, oriented, no focal neurologic deficit appreciated Results & Data Results & Data ([facility]) Vital Signs (Past 12 Hours) Vital Signs Temp Pulse Resp BP BP Pulse Ox O2 Del Method 08/31/22 07:19 36.5 C 85 16 130/68 96 Room Air 08/30/22 22:20 36.5 C 67 16 123/67 96 Resident Activity Tracking Resident Involvement: Resident Care Provided Care Provided: Adult Hospital Medicine
[2022-08-31] MEDS: PANTOprazole 40 MG TAB PO SCH ×2 (08:19→20:36)
[2022-08-31] MEDS: levETIRAcetam 500 MG TAB PO SCH ×2 (08:19→20:36)
[2022-08-31] MEDS: FERROUS SULFATE 325 MG TAB PO SCH ×2 (08:20→20:36)
[2022-08-31] MEDS: UMECLIDINIUM/VILANTEROL 62.5/25MCG 7 PUFFS/INHALER INH SCH (08:20)
[2022-08-31] MEDS: THIAMINE HCL 100 MG TAB PO SCH ×2 (08:20→20:36)
[2022-08-31] MEDS: rifAXIMin 550 MG TABLET PO SCH ×2 (08:20→20:36)
[2022-08-31] MEDS: CHOLECALCIFEROL 1,000 UNITS 25 MCG TAB PO SCH (08:21)
[2022-08-31] MEDS: MULTIVITAMIN TAB PO SCH (08:21)
[2022-08-31] MEDS: CYANOCOBALAMIN (B-12) 500 MCG TABLET PO SCH (08:21)
[2022-08-31] MEDS: FUROSEMIDE 40 MG TAB PO SCH ×2 (08:22→17:13)
[2022-08-31] MEDS: FOLIC ACID 1 MG TAB PO SCH (08:23)
[2022-08-31] MEDS: LACTULOSE SYRUP 30 GM/45 ML UDP PO SCH ×4 (08:42→20:35)
--- NOTE | 2022-08-31 17:00 | Billing Data ---
Date of Service August 31, 2022 Coding Level of Care Code 59515 Subseq Hosp Care Lvl 1
[2022-08-31] MEDS: MELATONIN 3 MG TAB PO SCH (20:40)
[2022-09-01 07:26] LABS: Albumin Globulin Ratio 0.8 (0.9-2); Albumin Level 2.6 gm/dl (3.4-5.0); Bilirubin,Total 2.4 mg/dl (0.2-1.0); Calcium 8.2 mg/dl (8.5-10.1); Est GFR (African American) 110.8 ml/min; Est GFR (Non-African American) 95.6 ml/min; Globulin 3.3 gm/dl (2.5-4.0); Potassium 3.7 mmol/L (3.5-5.1); Total Protein 5.9 gm/dl (6.0-8.3)
--- NOTE | 2022-09-01 07:30 | Hospitalist Progress Note ---
Date of Service September 01, 2022 Assessment & Plan (1) Acute alteration in mental status: (2) Alcoholic cirrhosis of liver: (3) GERD (gastroesophageal reflux disease): (4) Hypertension: (5) COPD (chronic obstructive pulmonary disease): (6) Patient unarousable: Plan Plan Pt is a 71 yo male with PMH of intracranial hemorrhage, alcohol induced cirrhosis, atrial fibrillation, insomnia, gout, carotid artery stenosis, COPD, who was admitted to the hospital for altered mental status. His presentation was unchanged from previous admission. His confusion is secondary to hepatic encephalopathy with possible component of superimposed delirium. Altered Mental Status: 2/2 Hepatic Encephalopathy w/ Superimposed Hyperactive Delirium Baseline mentation - struggles with word finding but is able to communicate more fully and can perform some of his daily activities of living independently. - Know hx of alcoholic cirrhosis with previous HE - Admitted d/t hyperammonemia of 156 - CT Head and CXR w/o acute change - Utox negative. UA negative. - Continue melatonin 3mg q1800 daily - Delirium precautions ongoing ---Continue lactulose, rifaximin. Goal of 3-4 BMs per day --- Pending placement Hyperbilirubinemia - Pt with elevated bilirubin at 4.8 secondary to chronic liver disease - Lipase and LFT's are within baseline - US liver showed nonvisualization of the gallbladder and common bile duct as well as cirrhosis w/o hepatic mass --- Following labs every other day, bilirubin stable; continues to trend down Hyponatremia - Baseline 135 Alcoholic Liver Cirrhosis - MELD 18 upon admission - Following Atrial Fibrillation - Patient is not on anticoagulation due to recent intraparenchymal hemorrhage - Episodes of irregular rhythm, regular 08/20-08/27 Hypertension - Continue home Lisinopril 5 mg and Lasix 40 mg Hx of Intracranial Hemorrhage - Continue Levetiracetam Deconditioning - PT f/u to reeval - recs 12/05 care either at SNF or at home with home health depending on family choice. CM informed. - 08/17 PT noted failure to progress beyond requirement of 24 hour supervision, recommended 24 hour care, PCF, and return home - pt to go to [facility] 08/19, insurance declined SNF --- CM following for possibility of [facility]itentiary care GERD - Continue Protonix COPD - Continue home inhaler Diet:Easy to chew, small bites DVT PPx:SCDs only d/t intracranial hemorrhage hx Dispo:Pending [facility]iary placement Code Status:DNR/DNI Admission and Anticipated Discharge Date Admission Date: July 23, 2022 Supervising Physician Co-Signing Physician Notes I personally examined the patient and verified all lebron points of history and exam, discussed case, and agree with decision making with Dr Claros no meaningful HPI / ROS. More restless today per nursing, but whenever I asked the patient how he is doing he notes help mebut then is unable to clarify and stares at me with a little bit of a confused look. vitals noted nad heent nc at mmm cardio distant but regular breathing unlabored no accessory muscles good effort skin no rashes no pallor or icterus neuro no focal deficits 1. Hepatic encephalopathy in the setting of known cirrhosis due to ETOH. Elevated ammonia level on admission. Continue lactulose, rifaximin. Titrate lactulose for a goal of 3-4 BMs per day. Had a large bowel movement today 2. Hyperbilirubinemia. Related to chronic liver disease 3. Afib. Rate controlled. Not anticoagulated due to prior hemorrhage. 4. Hypertension. Continue lisinopril and Lasix. 5. Hx of intracranial hemorrhage. Continue Keppra for seizure precautions. 6. Deconditioning. Unable to care for himself. Unfortunately, insurance declined SNF. family still working w case management on placement options Dispo: medically stable for discharge; still awaiting placement Subjective Pt is a 71 yo male with PMH of intracranial hemorrhage, alcohol induced cirrhosis, atrial fibrillation, insomnia, gout, carotid artery stenosis, COPD, who was admitted to the hospital for altered mental status. His presentation was unchanged from previous admission. His confusion is secondary to hepatic encephalopathy with possible component of superimposed delirium. Resting comfortably this morning without complainants. HPI limited due to cognitive status. Review of Systems Review of Systems: limited due to cognitive status Physical Exam Physical Exam: Constitutional: well-appearing, no acute distress HEENT: NCAT, no conjunctival injection CV: regular rhythm, no murmur appreciated, extremities well-perfused, no LE edema Resp: CTABL, no wheezes/rales/rhonchi appreciated, no increased work of breathing GI: soft, nondistended, nontender, BS normoactive MSK: no gross deformities appreciated Skin: warm, dry, no rash appreciated Neuro: alert, oriented, no focal neurologic deficit appreciated Results & Data Results & Data ([facility]) Vital Signs (Past 12 Hours) Vital Signs Temp Pulse Resp BP Pulse Ox O2 Del Method 09/01/22 07:15 36.5 C 78 16 146/67 H 95 Room Air 08/31/22 23:05 36.5 C 87 18 160/73 H 95 Room Air Resident Activity Tracking Resident Involvement: Resident Care Provided Care Provided: Adult Hospital Medicine
[2022-09-01] MEDS: FERROUS SULFATE 325 MG TAB PO SCH ×2 (08:30→20:24)
[2022-09-01] MEDS: levETIRAcetam 500 MG TAB PO SCH ×2 (08:30→20:24)
[2022-09-01] MEDS: PANTOprazole 40 MG TAB PO SCH ×2 (08:30→20:24)
[2022-09-01] MEDS: THIAMINE HCL 100 MG TAB PO SCH ×2 (08:31→10:05)
[2022-09-01] MEDS: CHOLECALCIFEROL 1,000 UNITS 25 MCG TAB PO SCH (08:31)
[2022-09-01] MEDS: rifAXIMin 550 MG TABLET PO SCH ×2 (08:31→20:23)
[2022-09-01] MEDS: FOLIC ACID 1 MG TAB PO SCH (08:32)
[2022-09-01] MEDS: CYANOCOBALAMIN (B-12) 500 MCG TABLET PO SCH (08:32)
[2022-09-01] MEDS: FUROSEMIDE 40 MG TAB PO SCH ×2 (08:33→16:31)
[2022-09-01] MEDS: MULTIVITAMIN TAB PO SCH (08:33)
[2022-09-01] MEDS: UMECLIDINIUM/VILANTEROL 62.5/25MCG 7 PUFFS/INHALER INH SCH (08:43)
[2022-09-01] MEDS: LACTULOSE SYRUP 30 GM/45 ML UDP PO SCH ×4 (08:43→20:23)
--- NOTE | 2022-09-01 10:31 | Billing Data ---
Date of Service September 01, 2022 Coding Level of Care Code 50333 Subseq Hosp Care Lvl 1
--- NOTE | 2022-09-01 10:31 | Billing Data ---
Date of Service September 01, 2022 Coding Level of Care Code 91937 Subseq Hosp Care Lvl 1
[2022-09-01] MEDS: MELATONIN 3 MG TAB PO SCH (20:24)
--- NOTE | 2022-09-02 07:32 | Hospitalist Progress Note ---
Date of Service September 02, 2022 Assessment & Plan (1) Acute alteration in mental status: Plan: Pt is a 71 yo male with PMH of intracranial hemorrhage, alcohol induced cirrhosis, atrial fibrillation, insomnia, gout, carotid artery stenosis, COPD, who was admitted to the hospital for altered mental status. His presentation was unchanged from previous admission. His confusion is secondary to hepatic encephalopathy with possible component of superimposed delirium. Altered Mental Status: 2/2 Hepatic Encephalopathy w/ Superimposed Hyperactive Delirium Baseline mentation - struggles with word finding but is able to communicate more fully and can perform some of his daily activities of living independently. - Know hx of alcoholic cirrhosis with previous HE - Admitted d/t hyperammonemia of 156 - CT Head and CXR w/o acute change - Utox negative. UA negative. - Continue melatonin 3mg q1800 daily - Delirium precautions ongoing - Continue lactulose, rifaximin. Goal of 3-4 BMs per day - Pending placement: per CM, [facility] may have a bed Friday, however, authorization is unlikely to occur. CM continuing to work on this Hyperbilirubinemia - Pt with elevated bilirubin at 4.8 secondary to chronic liver disease - Lipase and LFT's are within baseline - US liver showed nonvisualization of the gallbladder and common bile duct as well as cirrhosis w/o hepatic mass - Following labs every other day, bilirubin stable; continues to stabilize/down trend Hyponatremia - Baseline 135 Alcoholic Liver Cirrhosis - MELD 18 upon admission - Following Atrial Fibrillation - Patient is not on anticoagulation due to recent intraparenchymal hemorrhage - Episodes of irregular rhythm, regular rhythm today Hypertension - Continue home Lisinopril 5 mg and Lasix 40 mg Hx of Intracranial Hemorrhage - Continue Levetiracetam Deconditioning - PT f/u to reeval - recs 12/05 care either at SNF or at home with home health depending on family choice. CM informed. - 08/17 PT noted failure to progress beyond requirement of 24 hour supervision, recommended 24 hour care, PCF, and return home - pt originally to go to [facility] 08/19, insurance declined SNF - current placement situation as above GERD - Continue Protonix COPD - Continue home inhaler (2) Alcoholic cirrhosis of liver: (3) GERD (gastroesophageal reflux disease): (4) Hypertension: (5) COPD (chronic obstructive pulmonary disease): (6) Patient unarousable: Plan Diet:Easy to chew, small bites DVT PPx:SCDs only d/t intracranial hemorrhage hx Dispo:Pending fpc placement, possible bed at [facility] this Friday Code Status:DNR/DNI Admission and Anticipated Discharge Date Admission Date: July 23, 2022 Supervising Physician Co-Signing Physician Notes Resident Physician Supervision Note: I independently interviewed and examined the patient and verified the lebron history and physical, reviewed labs and image studies and agree with resident findings and care plan. Subjective Pt is a 71 yo male with PMH of intracranial hemorrhage, alcohol induced cirrhosis, atrial fibrillation, insomnia, gout, carotid artery stenosis, COPD, who was admitted to the hospital for altered mental status. His presentation was unchanged from previous admission. His confusion is secondary to hepatic encephalopathy with possible component of superimposed delirium. Today, pt is resting comfortably in bed. He is able to respond to simple questions. He had breakfast and told me that it was good. Overall, he is stable. Physical Exam Constitutional: NAD. Vitals WNL. Eyes: no conjunctival abnormality Respiratory: CTA bilaterally. No rhonchi, wheezing, or crackles. Non labored breathing. Cardiovascular: RRR. No murmur noted. No LL edema. Skin: no rashes, warm and dry Results & Data Results & Data ([facility]) Vital Signs (Past 12 Hours) Vital Signs Temp Pulse Pulse Resp BP BP Pulse Ox 09/02/22 07:24 36.9 C 76 18 119/61 93 09/01/22 20:53 36.8 C 80 18 127/64 96 O2 Del Method 09/02/22 07:24 Room Air 09/01/22 20:53 Room Air Resident Activity Tracking Resident Involvement: Resident Care Provided Care Provided: Adult Hospital Medicine
[2022-09-02] MEDS: FERROUS SULFATE 325 MG TAB PO SCH ×2 (08:50→20:08)
[2022-09-02] MEDS: FUROSEMIDE 40 MG TAB PO SCH ×2 (08:50→17:10)
[2022-09-02] MEDS: FOLIC ACID 1 MG TAB PO SCH (08:50)
[2022-09-02] MEDS: CHOLECALCIFEROL 1,000 UNITS 25 MCG TAB PO SCH (08:50)
[2022-09-02] MEDS: THIAMINE HCL 100 MG TAB PO SCH (08:50)
[2022-09-02] MEDS: CYANOCOBALAMIN (B-12) 500 MCG TABLET PO SCH (08:50)
[2022-09-02] MEDS: LACTULOSE SYRUP 30 GM/45 ML UDP PO SCH ×4 (08:51→20:08)
[2022-09-02] MEDS: MULTIVITAMIN TAB PO SCH (08:51)
[2022-09-02] MEDS: levETIRAcetam 500 MG TAB PO SCH ×2 (08:51→20:08)
[2022-09-02] MEDS: rifAXIMin 550 MG TABLET PO SCH ×2 (08:51→20:08)
[2022-09-02] MEDS: PANTOprazole 40 MG TAB PO SCH ×2 (08:51→20:08)
[2022-09-02] MEDS: UMECLIDINIUM/VILANTEROL 62.5/25MCG 7 PUFFS/INHALER INH SCH (08:52)
[2022-09-02] MEDS: MELATONIN 3 MG TAB PO SCH (20:10)
[2022-09-03 07:25] LABS: BUN Creatinine Ratio 22.3 (10-20); Calcium 8.2 mg/dl (8.5-10.1); Creatinine Clr Calc Pharmacy 68.5 ml/min; Est GFR (African American) 94.8 ml/min; Est GFR (Non-African American) 81.8 ml/min; Potassium 3.5 mmol/L (3.5-5.1)
[2022-09-03] MEDS: THIAMINE HCL 100 MG TAB PO SCH (08:15)
[2022-09-03] MEDS: CHOLECALCIFEROL 1,000 UNITS 25 MCG TAB PO SCH (08:15)
[2022-09-03] MEDS: CYANOCOBALAMIN (B-12) 500 MCG TABLET PO SCH (08:15)
[2022-09-03] MEDS: FOLIC ACID 1 MG TAB PO SCH (08:17)
[2022-09-03] MEDS: PANTOprazole 40 MG TAB PO SCH ×2 (08:17→21:26)
[2022-09-03] MEDS: MULTIVITAMIN TAB PO SCH (08:17)
[2022-09-03] MEDS: levETIRAcetam 500 MG TAB PO SCH ×2 (08:18→21:26)
[2022-09-03] MEDS: FERROUS SULFATE 325 MG TAB PO SCH ×2 (08:18→21:26)
[2022-09-03] MEDS: rifAXIMin 550 MG TABLET PO SCH ×2 (08:18→21:25)
[2022-09-03] MEDS: LACTULOSE SYRUP 30 GM/45 ML UDP PO SCH ×4 (08:20→21:25)
--- NOTE | 2022-09-03 10:19 | Hospitalist Progress Note ---
Date of Service September 03, 2022 Assessment & Plan (1) Acute alteration in mental status: Plan: Pt is a 71 yo male with PMH of intracranial hemorrhage, alcohol induced cirrhosis, atrial fibrillation, insomnia, gout, carotid artery stenosis, COPD, who was admitted to the hospital for altered mental status. His presentation was unchanged from previous admission. His confusion is secondary to hepatic encephalopathy with possible component of superimposed delirium. Altered Mental Status: 2/2 Hepatic Encephalopathy w/ Superimposed Hyperactive Delirium Baseline mentation - struggles with word finding but is able to communicate more fully and can perform some of his daily activities of living independently. - Know hx of alcoholic cirrhosis with previous HE - Admitted 07/22/2022 d/t hyperammonemia of 156 - CT Head (08/12) and CXR (07/22) w/o acute change - Blood cx 08/12 neg - Continue melatonin 3mg q1800 daily - Delirium precautions ongoing - Continue lactulose, rifaximin. Goal of 3-4 BMs per day - Pending placement: per CM, [facility] may have a bed Friday, however, authorization is unlikely to occur. CM continuing to work on this Pt with acute mental status change 09/03 - Spoke w/ daughter and she would like further workup into possible causes of this, especially since he had seemed to improve somewhat following his stroke - repeat blood cultures, UA, and CT head pending - CXR now showing airspace opacities that may represent atelectasis, pneumonia and/or aspiration - CBC normal w/o leukocytosis, lactate 2.0 - Ammonia elevated at 107 - per nursing, pt had 1 BM today with taking all of his prescribed lactulose- added lactulose enema at 6 PM in addition to oral regimen Hyperbilirubinemia - Pt with elevated bilirubin at 4.8 secondary to chronic liver disease - Lipase and LFT's are within baseline - US liver showed nonvisualization of the gallbladder and common bile duct as well as cirrhosis w/o hepatic mass - Bilirubin stable; continues to stabilize/down trend Hyponatremia - Baseline 135 - most recent 137 Alcoholic Liver Cirrhosis - MELD 18 upon admission - Following Atrial Fibrillation - Patient is not on anticoagulation due to recent intraparenchymal hemorrhage - Episodes of irregular rhythm, regular rhythm today Hypertension - Continue home Lisinopril 5 mg and Lasix 40 mg Hx of Intracranial Hemorrhage - Continue Levetiracetam Deconditioning - PT f/u to reeval - recs 12/05 care either at SNF or at home with home health depending on family choice. CM informed. - 08/17 PT noted failure to progress beyond requirement of 24 hour supervision, recommended 24 hour care, PCF, and return home - pt originally to go to [facility] 08/19, insurance declined SNF - current placement situation as above GERD - Continue Protonix COPD - Continue home inhaler (2) Alcoholic cirrhosis of liver: (3) GERD (gastroesophageal reflux disease): (4) Hypertension: (5) COPD (chronic obstructive pulmonary disease): (6) Patient unarousable: Plan Diet:Fully Alert -- Minced and moist; Less Alert -- pureed DVT ppx:SCDs only d/t intracranial hemorrhage hx Dispo:pending long-term placement, [facility] not accepting pts for the next few days Consults: speech eval (recommendations for varying mental statuses in chart) Code Status:DNR/DNI Admission and Anticipated Discharge Date Admission Date: July 23, 2022 Supervising Physician Co-Signing Physician Notes Resident Physician Supervision Note: I independently interviewed and examined the patient and verified the lebron history and physical, reviewed labs and image studies and agree with resident findings and care plan. Subjective Pt is a 71 yo male with PMH of intracranial hemorrhage, alcohol induced cirrhosis, atrial fibrillation, insomnia, gout, carotid artery stenosis, COPD, who was admitted to the hospital for altered mental status. His presentation was unchanged from previous admission. His confusion is secondary to hepatic encephalopathy with possible component of superimposed delirium. Today, pt is resting comfortably in bed. Pt's nurse concerned this AM that food was falling out of one side of his mouth and that he doesn't seem with it. She requested a speech evaluation for him. Pt unable to answer questions this morning or follow commands. Pt unable to form words to communicate but more so making gurgling/moaning sounds, if any sound at all, in response to my questions. Physical Exam Constitutional: NAD. Vitals WNL. Eyes: no conjunctival abnormality Respiratory: Non labored breathing Cardiovascular: RRR. No murmur noted. No LL edema. Neurologic: Unable to assess CN or strength d/t pt's inability to follow commands Results & Data Results & Data ([facility]) Vital Signs (Past 12 Hours) Vital Signs Temp Pulse Resp BP Pulse Ox O2 Del Method 09/03/22 07:47 36.9 C 76 18 114/67 96 Room Air Resident Activity Tracking Resident Involvement: Resident Care Provided Care Provided: Adult Hospital Medicine
[2022-09-03] MEDS: UMECLIDINIUM/VILANTEROL 62.5/25MCG 7 PUFFS/INHALER INH SCH (12:52)
[2022-09-03] MEDS: FUROSEMIDE 40 MG TAB PO SCH ×2 (12:52→18:02)
--- NOTE | 2022-09-03 13:06 | XRay Report ---
XR chest 2V PA/lateral CLINICAL HISTORY: aspiration concerns TECHNIQUE: 2 views of the chest were obtained. Comparison: Comparison is made to chest radiograph 07/22/2022 FINDINGS: No lines and tubes are seen. Calcified aortic knob is seen. Reticular interstitial opacities are seen . Airspace opacity is seen most prominently in the right midlung. No evidence of pleural effusion or pneumothorax. IMPRESSION: Airspace opacities superimposed upon chronic interstitial thickening. These may represent atelectasis , pneumonia, and/or aspiration. ACT 112: Negative or not required by law. Electronically signed by: Padilla Arteaga M.D. 09/03/2022 1:04 PM
[2022-09-03 16:33] LABS: Basophils # (auto) 0.05 K/uL (0-0.2); Eosinophils # (auto) 0.16 K/uL (0-0.50); Eosinophils % (auto) 3.2 %; Hematocrit (blood only) 30.6 % (40.1-51.0); Hemoglobin 10.9 g/dl (14.0-18.0); Immature Granulocytes # (auto) 0.02 K/uL (0.00-0.02); Immature Granulocytes % (auto) 0.4 %; Lymphocytes # (auto) 0.97 K/uL (1.2-3.4); Lymphocytes % (auto) 19.1 %; Mean Corpuscular Hemoglobin 36.1 pg (25.0-34.0); Mean Corpuscular Hgb Conc 35.6 g/dL (32.0-36.0); Mean Corpuscular Volume 101.3 fL (80.0-100.0); Mean Platelet Volume 10.6 fL (9.4-12.4); Monocytes # (auto) 0.77 K/uL (0.24-0.82); Monocytes % (auto) 15.2 %; Neutrophils % (auto) 61.1 %; Platelet Count 115 K/uL (130-400); RDW Coefficient of Variation 14.6 % (11.5-14.5); RDW Standard Deviation 54.3 fL (36.4-46.3); Red Blood Count 3.02 M/uL (4.63-6.08); White Blood Count 5.07 K/ul (4.8-10.8)
[2022-09-03] MEDS: LACTULOSE 200GM/700ML WTR ENEMA PR SCH (18:52)
[2022-09-03] MEDS: MELATONIN 3 MG TAB PO SCH (21:25)
--- NOTE | 2022-09-04 07:45 | Hospitalist Progress Note ---
Date of Service September 04, 2022 Assessment & Plan (1) Acute alteration in mental status: Plan: Pt is a 71 yo male with PMH of intracranial hemorrhage, alcohol induced cirrhosis, atrial fibrillation, insomnia, gout, carotid artery stenosis, COPD, who was admitted to the hospital for altered mental status. His presentation was unchanged from previous admission. His confusion is secondary to hepatic encephalopathy with possible component of superimposed delirium. Altered Mental Status: 2/2 Hepatic Encephalopathy w/ Superimposed Hyperactive Delirium Baseline mentation - struggles with word finding but is able to communicate more fully and can perform some of his daily activities of living independently. - Know hx of alcoholic cirrhosis with previous HE - Admitted 07/22/2022 d/t hyperammonemia of 156 - CT Head (08/12) and CXR (07/22) w/o acute change - Blood cx 08/12 neg - Continue melatonin 3mg q1800 daily - Delirium precautions ongoing - Continue lactulose, rifaximin. Goal of 3-4 BMs per day - Pending placement: per CM, [facility] can accept but only with SNF authorization. CM continuing to work on this Pt with acute mental status change 09/03 - Spoke w/ daughter and she would like further workup into possible causes of this, especially since he had seemed to improve somewhat following his stroke - CXR showing airspace opacities that may represent atelectasis, pneumonia and/or aspiration - CT head neg for hemorrhage or CVA - CBC normal w/o leukocytosis, lactate 2.0 - repeat blood cultures neg at 24 hrs, UA pending - 09/03 Ammonia elevated at 107 - per nursing, pt had 1 BM today with taking all of his prescribed lactulose- added lactulose enema at 6 PM in addition to oral regimen - 09/04 pt appears back at baseline- continue additional rectal lactulose daily Hyperbilirubinemia - Pt with elevated bilirubin at 4.8 secondary to chronic liver disease - Lipase and LFT's are within baseline - US liver showed nonvisualization of the gallbladder and common bile duct as well as cirrhosis w/o hepatic mass - Bilirubin stable; continues to stabilize/down trend Hyponatremia - Baseline 135 - most recent 139 Alcoholic Liver Cirrhosis - MELD 18 upon admission - Following Atrial Fibrillation - Patient is not on anticoagulation due to recent intraparenchymal hemorrhage - Episodes of irregular rhythm, regular rhythm today Hypertension - Continue home Lisinopril 5 mg and Lasix 40 mg Hx of Intracranial Hemorrhage - Continue Levetiracetam Deconditioning - PT f/u to reeval - recs / care either at SNF or at home with home health depending on family choice. CM informed. - 08/17 PT noted failure to progress beyond requirement of 24 hour supervision: recommended 24 hour care, PCF, and return home - pt originally to go to [facility] 08/19, insurance declined SNF at that time - current placement situation as above GERD - Continue Protonix COPD - Continue home inhaler (2) Alcoholic cirrhosis of liver: (3) GERD (gastroesophageal reflux disease): (4) Hypertension: (5) COPD (chronic obstructive pulmonary disease): (6) Patient unarousable: Plan Diet:Fully alert -minced and moist; less alert -pureed, given 40 meq of K powder DVT ppx:SCDs only d/t intracranial hemorrhage hx Dispo:pending alf placement, [facility] can accept pt pending SNF authorization Code Status:DNR/DNI Admission and Anticipated Discharge Date Admission Date: July 23, 2022 Supervising Physician Co-Signing Physician Notes Resident Physician Supervision Note: I independently interviewed and examined the patient and verified the lebron history and physical, reviewed labs and image studies and agree with resident findings and care plan. Subjective Pt is a 71 yo male with PMH of intracranial hemorrhage, alcohol induced cirrhosis, atrial fibrillation, insomnia, gout, carotid artery stenosis, COPD, who was admitted to the hospital for altered mental status. His presentation was unchanged from previous admission. His confusion is secondary to hepatic encephalopathy with possible component of superimposed delirium. Pt much more alert this AM compared to yesterday. He is awake in bed eating his breakfast when I spoke with him. He answers most of my questions and is able to respond to simple commands. He explains to me that he wants to leave. Physical Exam Constitutional: NAD. Vitals WNL. Eyes: no conjunctival abnormality Respiratory: CTA bilaterally. No rhonchi, wheezing, or crackles. Non labored breathing. Cardiovascular: RRR. No murmur noted. No LL edema. Psychiatric: Alert. Mood and affect congruent. Results & Data Results & Data ([facility]) Vital Signs (Past 12 Hours) Vital Signs Temp Pulse Pulse Resp BP BP Pulse Ox 09/04/22 06:59 36.5 C 64 16 129/67 93 09/03/22 22:06 36.6 C 68 18 111/63 93 O2 Del Method 09/04/22 06:59 Room Air 09/03/22 22:06 Room Air Resident Activity Tracking Resident Involvement: Resident Care Provided Care Provided: Adult Hospital Medicine
[2022-09-04] MEDS: FUROSEMIDE 40 MG TAB PO SCH ×2 (09:30→17:44)
[2022-09-04] MEDS: CYANOCOBALAMIN (B-12) 500 MCG TABLET PO SCH (09:31)
[2022-09-04] MEDS: CHOLECALCIFEROL 1,000 UNITS 25 MCG TAB PO SCH (09:31)
[2022-09-04] MEDS: FERROUS SULFATE 325 MG TAB PO SCH ×2 (09:32→20:01)
[2022-09-04] MEDS: FOLIC ACID 1 MG TAB PO SCH (09:33)
[2022-09-04] MEDS: MULTIVITAMIN TAB PO SCH (09:33)
[2022-09-04] MEDS: levETIRAcetam 500 MG TAB PO SCH ×2 (09:34→20:02)
[2022-09-04] MEDS: PANTOprazole 40 MG TAB PO SCH ×2 (09:34→20:01)
[2022-09-04] MEDS: UMECLIDINIUM/VILANTEROL 62.5/25MCG 7 PUFFS/INHALER INH SCH (09:35)
[2022-09-04] MEDS: THIAMINE HCL 100 MG TAB PO SCH (09:35)
[2022-09-04] MEDS: rifAXIMin 550 MG TABLET PO SCH ×2 (09:35→20:02)
[2022-09-04] MEDS: LACTULOSE SYRUP 30 GM/45 ML UDP PO SCH ×4 (09:36→20:00)
[2022-09-04 10:10] LABS: Hematocrit (blood only) 36.1 % (40.1-51.0); Hemoglobin 12.7 g/dl (14.0-18.0); Mean Platelet Volume 10.3 fL (9.4-12.4); Platelet Count 111 K/uL (130-400); White Blood Count 4.52 K/ul (4.8-10.8)
[2022-09-04 10:29] LABS: Albumin Globulin Ratio 0.8 (0.9-2); Albumin Level 2.7 gm/dl (3.4-5.0); Bilirubin,Total 2.6 mg/dl (0.2-1.0); Calcium 8.3 mg/dl (8.5-10.1); Creatinine Clr Calc Pharmacy 74.1 ml/min; Est GFR (African American) 101.3 ml/min; Est GFR (Non-African American) 87.4 ml/min; Globulin 3.3 gm/dl (2.5-4.0); Potassium 3.3 mmol/L (3.5-5.1)
[2022-09-04 10:33] LABS: Mean Corpuscular Hemoglobin 36.7 pg (25.0-34.0); Mean Corpuscular Hgb Conc 35.2 g/dL (32.0-36.0); Mean Corpuscular Volume 104.3 fL (80.0-100.0); RDW Coefficient of Variation 14.8 % (11.5-14.5); RDW Standard Deviation 56.2 fL (36.4-46.3); Red Blood Count 3.46 M/uL (4.63-6.08)
[2022-09-04] MEDS ORDERED: POTASSIUM CHLORIDE PWD 20 MEQ PACK PO ONE (11:06)
--- NOTE | 2022-09-04 11:53 | CT Scan Report ---
CT head/brain wo con CLINICAL HISTORY: change in mental status, hx of ICH Technique: Contiguous axial CT images of the head were acquired from the base of the skull to the kehinde cyrus without intravenous contrast administration. Images were viewed in brain, subdural and [facility]. Automated dose lowering techniques and/or adjustment according to patient size were utilized for this exam. Comparison: Comparison is made to CT head 08/12/2022 Findings: Areas of decreased attenuation are present in the periventricular and subcortical white matter bilate rally consistent with small vessel ischemic disease. Generalized cerebral atrophy with commensurate e nlargement of the ventricles, sulci, and cisterns is also present. There is no acute intracranial hem orrhage or evidence of acute territorial infarction. No shift of the midline structures, mass effect, or extra-axial abnormalities are shown. Atherosclerotic calcifications are present in the intracran ial segments of the internal carotid arteries. Encephalomalacia in the left parietotemporal region i s again seen. Imaged portions of the paranasal sinuses and mastoid air cells are clear. The orbits appear normal. There are no acute fractures of the calvaria or scalp swelling. Impression: No acute intracranial hemorrhage, no evidence of acute territorial infarction or other acute intracra nial disease process. ACT 112: Negative or not required by law. Electronically signed by: Padilla Arteaga M.D. 09/04/2022 11:51 AM
[2022-09-04 15:28] LABS: Appearance Urine Clear (Clear); Bacteria Urine Automated 2+ (Negative); Bilirubin Urine Negative (Negative); Blood Urine Negative (Negative); Color Urine Dark Yellow; Epithelial Cell Urine Auto 20-30 /lpf (0-5); Glucose Urine UA Negative (Negative); Ketones Urine Negative (Negative); Leukocyte Esterase Urine Negative (Negative); Nitrite Urine Positive (Negative); Protein Urine Negative (Negative); RBC Urine Automated 0-4 /hpf (0-4); Urobilinogen Urine Negative (Negative); WBC Urine Automated 0 /hpf (0-5); pH Urine 5.5 (4.5-7.5)
[2022-09-04 15:47] LABS: Calcium Oxalate Crystals Urine Present (None Prsent); Mucus Urine Present (None Prsent)
[2022-09-04] MEDS: LACTULOSE 200GM/700ML WTR ENEMA PR SCH (18:34)
[2022-09-04] MEDS: MELATONIN 3 MG TAB PO SCH (20:03)
[2022-09-05] MEDS: LACTULOSE SYRUP 30 GM/45 ML UDP PO SCH ×4 (08:40→20:33)
[2022-09-05] MEDS: UMECLIDINIUM/VILANTEROL 62.5/25MCG 7 PUFFS/INHALER INH SCH (08:42)
[2022-09-05] MEDS: CYANOCOBALAMIN (B-12) 500 MCG TABLET PO SCH (08:43)
[2022-09-05] MEDS: MULTIVITAMIN TAB PO SCH (08:43)
[2022-09-05] MEDS: levETIRAcetam 500 MG TAB PO SCH ×2 (08:43→20:35)
[2022-09-05] MEDS: THIAMINE HCL 100 MG TAB PO SCH (08:43)
[2022-09-05] MEDS: rifAXIMin 550 MG TABLET PO SCH ×2 (08:43→20:35)
[2022-09-05] MEDS: PANTOprazole 40 MG TAB PO SCH ×2 (08:43→20:35)
[2022-09-05] MEDS: FOLIC ACID 1 MG TAB PO SCH (08:43)
[2022-09-05] MEDS: CHOLECALCIFEROL 1,000 UNITS 25 MCG TAB PO SCH (08:43)
[2022-09-05] MEDS: FERROUS SULFATE 325 MG TAB PO SCH ×2 (08:44→20:36)
[2022-09-05] MEDS: FUROSEMIDE 40 MG TAB PO SCH ×2 (08:44→16:59)
[2022-09-05 09:08] LABS: Hematocrit (blood only) 35.2 % (40.1-51.0); Hemoglobin 12.6 g/dl (14.0-18.0); Mean Platelet Volume 10.4 fL (9.4-12.4); Platelet Count 110 K/uL (130-400); White Blood Count 4.54 K/ul (4.8-10.8)
[2022-09-05 09:27] LABS: Albumin Globulin Ratio 0.8 (0.9-2); Albumin Level 2.6 gm/dl (3.4-5.0); BUN Creatinine Ratio 23.5 (10-20); Bilirubin,Total 2.5 mg/dl (0.2-1.0); Calcium 8.2 mg/dl (8.5-10.1); Creatinine Clr Calc Pharmacy 75.8 ml/min; Est GFR (African American) 102.3 ml/min; Est GFR (Non-African American) 88.3 ml/min; Globulin 3.2 gm/dl (2.5-4.0); Potassium 3.5 mmol/L (3.5-5.1); Total Protein 5.8 gm/dl (6.0-8.3)
[2022-09-05 09:37] LABS: Mean Corpuscular Hemoglobin 36.5 pg (25.0-34.0); Mean Corpuscular Hgb Conc 35.8 g/dL (32.0-36.0); RDW Coefficient of Variation 14.7 % (11.5-14.5); RDW Standard Deviation 54.8 fL (36.4-46.3); Red Blood Count 3.45 M/uL (4.63-6.08)
--- NOTE | 2022-09-05 11:31 | Hospitalist Progress Note ---
Date of Service September 05, 2022 Assessment & Plan (1) Acute alteration in mental status: Plan: Pt is a 71 yo male with PMH of intracranial hemorrhage, alcohol induced cirrhosis, atrial fibrillation, insomnia, gout, carotid artery stenosis, COPD, who was admitted to the hospital for altered mental status. His presentation was unchanged from previous admission. His confusion is secondary to hepatic encephalopathy with possible component of superimposed delirium. Altered Mental Status: 2/2 Hepatic Encephalopathy w/ Superimposed Hyperactive Delirium Baseline mentation - struggles with word finding but is able to communicate more fully and can perform some of his daily activities of living independently. - Know hx of alcoholic cirrhosis with previous HE - Admitted 07/22/2022 d/t hyperammonemia of 156 - CT Head (08/12) and CXR (07/22) w/o acute change - Blood cx 08/12 neg - Continue melatonin 3mg q1800 daily - Delirium precautions ongoing - Continue lactulose, rifaximin. Goal of 3-4 BMs per day - Pending placement: [facility] currently [facility] authorization pending. CM continuing to work on this Pt with acute mental status change 09/03 - neg work up except ammonia of 107 - improved with adding extra dose of lactulose - rectal. - continue additional rectal lactulose daily Hyperbilirubinemia - Pt with elevated bilirubin at 4.8 secondary to chronic liver disease - Lipase and LFT's are within baseline - US liver showed nonvisualization of the gallbladder and common bile duct as well as cirrhosis w/o hepatic mass - Bilirubin stable; continues to stabilize/down trend Hyponatremia - Baseline 135 - most recent 141 Alcoholic Liver Cirrhosis - MELD 18 upon admission Atrial Fibrillation - Patient is not on anticoagulation due to recent intraparenchymal hemorrhage - Episodes of irregular rhythm, regular rhythm today Hypertension - Continue home Lisinopril 5 mg and Lasix 40 mg Hx of Intracranial Hemorrhage - Continue Levetiracetam Deconditioning - PT f/u to reeval - recs 12/05 care either at SNF or at home with home health depending on family choice. CM informed. - 08/17 PT noted failure to progress beyond requirement of 24 hour supervision: recommended 24 hour care, PCF, and return home - pt originally to go to [facility] 08/19, insurance declined SNF at that time - current placement situation as above GERD - Continue Protonix COPD - Continue home inhaler (2) Alcoholic cirrhosis of liver: (3) GERD (gastroesophageal reflux disease): (4) Hypertension: (5) COPD (chronic obstructive pulmonary disease): (6) Patient unarousable: Plan Diet:Fully alert -minced and moist; less alert -pureed DVT ppx:SCDs only d/t intracranial hemorrhage hx Dispo:pending assisted placement, [facility] should have a bed, currently pending SNF authorization Code Status:DNR/DNI Admission and Anticipated Discharge Date Admission Date: July 23, 2022 Supervising Physician Co-Signing Physician Notes Resident Physician Supervision Note: I independently interviewed and examined the patient and verified the lebron history and physical, reviewed labs and image studies and agree with resident findings and care plan. Subjective Pt is a 71 yo male with PMH of intracranial hemorrhage, alcohol induced cirrhosis, atrial fibrillation, insomnia, gout, carotid artery stenosis, COPD, who was admitted to the hospital for altered mental status. His presentation was unchanged from previous admission. His confusion is secondary to hepatic encephalopathy with possible component of superimposed delirium. Pt at baseline this AM. He is doing well overall. He seems happy to know we are looking at facilities for placement. Pt just about to eat breakfast when I left. Physical Exam Constitutional: NAD. Vitals WNL. Eyes: no conjunctival abnormality Respiratory: CTA bilaterally. No rhonchi, wheezing, or crackles. Non labored breathing. Cardiovascular: RRR. No murmur noted. No LL edema. Psychiatric: Alert. Mood and affect congruent. Results & Data Results & Data ([facility]) Vital Signs (Past 12 Hours) Vital Signs Temp Pulse Resp BP Pulse Ox O2 Del Method 09/05/22 10:52 Room Air 09/05/22 07:01 36.5 C 58 L 16 123/64 97 Room Air Resident Activity Tracking Resident Involvement: Resident Care Provided Care Provided: Adult Hospital Medicine
[2022-09-05] MEDS: LACTULOSE 200GM/700ML WTR ENEMA PR SCH (18:30)
[2022-09-05] MEDS: MELATONIN 3 MG TAB PO SCH (20:37)
[2022-09-06 08:40] LABS: BUN Creatinine Ratio 23.3 (10-20); Creatinine Clr Calc Pharmacy 71.6 ml/min; Est GFR (African American) 99.9 ml/min; Est GFR (Non-African American) 86.2 ml/min; Potassium 3.5 mmol/L (3.5-5.1)
[2022-09-06] MEDS: FERROUS SULFATE 325 MG TAB PO SCH ×2 (08:51→20:29)
[2022-09-06] MEDS: MULTIVITAMIN TAB PO SCH (08:51)
[2022-09-06] MEDS: CYANOCOBALAMIN (B-12) 500 MCG TABLET PO SCH (08:52)
[2022-09-06] MEDS: THIAMINE HCL 100 MG TAB PO SCH (08:52)
[2022-09-06] MEDS: FUROSEMIDE 40 MG TAB PO SCH ×2 (08:52→17:29)
[2022-09-06] MEDS: CHOLECALCIFEROL 1,000 UNITS 25 MCG TAB PO SCH (08:52)
[2022-09-06] MEDS: FOLIC ACID 1 MG TAB PO SCH (08:52)
[2022-09-06] MEDS: rifAXIMin 550 MG TABLET PO SCH ×2 (08:53→20:29)
[2022-09-06] MEDS: levETIRAcetam 500 MG TAB PO SCH ×2 (08:53→20:28)
[2022-09-06] MEDS: LACTULOSE SYRUP 30 GM/45 ML UDP PO SCH ×4 (08:53→20:27)
[2022-09-06] MEDS: PANTOprazole 40 MG TAB PO SCH ×2 (08:53→20:28)
[2022-09-06] MEDS: UMECLIDINIUM/VILANTEROL 62.5/25MCG 7 PUFFS/INHALER INH SCH (08:54)
[2022-09-06 11:44] LABS: Hematocrit (blood only) 34.8 % (40.1-51.0); Hemoglobin 12.5 g/dl (14.0-18.0); Mean Platelet Volume 10.3 fL (9.4-12.4); Platelet Count 121 K/uL (130-400); White Blood Count 4.65 K/ul (4.8-10.8)
[2022-09-06 12:04] LABS: Mean Corpuscular Hgb Conc 35.9 g/dL (32.0-36.0); RDW Coefficient of Variation 14.8 % (11.5-14.5); RDW Standard Deviation 56.1 fL (36.4-46.3); Red Blood Count 3.38 M/uL (4.63-6.08)
--- NOTE | 2022-09-06 16:28 | Hospitalist Progress Note ---
Date of Service September 06, 2022 Assessment & Plan (1) Acute alteration in mental status: Plan: Pt is a 71 yo male with PMH of intracranial hemorrhage, alcohol induced cirrhosis, atrial fibrillation, insomnia, gout, carotid artery stenosis, COPD, who was admitted to the hospital for altered mental status. His presentation was unchanged from previous admission. His confusion is secondary to hepatic encephalopathy with possible component of superimposed delirium. Altered Mental Status: 2/2 Hepatic Encephalopathy w/ Superimposed Hyperactive Delirium Baseline mentation - struggles with word finding but is able to communicate more fully and can perform some of his daily activities of living independently. - Know hx of alcoholic cirrhosis with previous HE - Admitted 07/22/2022 d/t hyperammonemia of 156 - CT Head (08/12) and CXR (07/22) w/o acute change - Blood cx 08/12 neg - Continue melatonin 3mg q1800 daily - Delirium precautions ongoing - Continue lactulose, rifaximin. Goal of 3-4 BMs per day - Pt with acute mental status change 09/03 - improved with adding extra dose of lactulose - rectal - continue additional rectal lactulose daily Hyperbilirubinemia - Pt with elevated bilirubin at 4.8 secondary to chronic liver disease - Lipase and LFT's are within baseline - US liver showed nonvisualization of the gallbladder and common bile duct as well as cirrhosis w/o hepatic mass - Bilirubin stable; continues to stabilize/down trend Hyponatremia - resolved Alcoholic Liver Cirrhosis - MELD 18 upon admission - Lasix 40 mg Atrial Fibrillation - Not on anticoagulation due to recent intraparenchymal hemorrhage - Episodes of irregular rhythm. Hypertension - Continue home Lisinopril 5 mg Hx of Intracranial Hemorrhage - Continue Levetiracetam Deconditioning - PT f/u to reeval - recs 12/05 care either at SNF or at home with home health depending on family choice. CM informed. - 08/17 PT noted failure to progress beyond requirement of 24 hour supervision: recommended 24 hour care, PCF, and return home - pt originally to go to [facility] 08/19, - Pending placement: per CM, insurance denied SNF. Called insurance and they said we need to await a "denial letter." CM looking into this. GERD - Continue Protonix COPD - Continue home inhaler (2) Alcoholic cirrhosis of liver: (3) GERD (gastroesophageal reflux disease): (4) Hypertension: (5) COPD (chronic obstructive pulmonary disease): (6) Patient unarousable: Plan Diet:Fully alert -minced and moist; less alert -pureed DVT ppx:SCDs only d/t intracranial hemorrhage hx Dispo:pending [facility] placement, insurance denied SNF placement- currently appealing, also w/ referrals elsewhere Code Status:DNR/DNI Admission and Anticipated Discharge Date Admission Date: July 23, 2022 Supervising Physician Co-Signing Physician Notes Resident Physician Supervision Note: I independently interviewed and examined the patient and verified the lebron history and physical, reviewed labs and image studies and agree with resident findings and care plan. Subjective Pt is a 71 yo male with PMH of intracranial hemorrhage, alcohol induced cirrhosis, atrial fibrillation, insomnia, gout, carotid artery stenosis, COPD, who was admitted to the hospital for altered mental status. His presentation was unchanged from previous admission. His confusion is secondary to hepatic encephalopathy with possible component of superimposed delirium. Pt at baseline today, sitting in his chair. He seems happy this morning. Physical Exam Constitutional: NAD. Vitals WNL. Eyes: no conjunctival abnormality Respiratory: CTA bilaterally. No rhonchi, wheezing, or crackles. Non labored breathing. Cardiovascular: RRR. No murmur noted. No LL edema. Skin: no rashes, warm and dry Psychiatric: Alert. Mood and affect congruent. Results & Data Results & Data ([facility]) Vital Signs (Past 12 Hours) Vital Signs Temp Pulse Resp BP BP Pulse Ox O2 Del Method 09/06/22 15:21 36.6 C 83 16 125/68 95 Room Air 09/06/22 07:30 Room Air 09/06/22 08:24 57 L 16 123/68 95 Room Air 09/06/22 07:27 36.6 C 60 16 97/48 L 96 Room Air Resident Activity Tracking Resident Involvement: Resident Care Provided Care Provided: Adult Hospital Medicine
[2022-09-06] MEDS: LACTULOSE 200GM/700ML WTR ENEMA PR SCH (18:14)
[2022-09-06] MEDS: MELATONIN 3 MG TAB PO SCH (20:29)
--- NOTE | 2022-09-07 07:16 | Hospitalist Progress Note ---
Date of Service September 07, 2022 Assessment & Plan (1) Acute alteration in mental status: Plan: Pt is a 71 yo male with PMH of intracranial hemorrhage, alcohol induced cirrhosis, atrial fibrillation, insomnia, gout, carotid artery stenosis, COPD, who was admitted to the hospital for altered mental status. His presentation was unchanged from previous admission. His confusion is secondary to hepatic encephalopathy with possible component of superimposed delirium. Altered Mental Status: 2/2 Hepatic Encephalopathy w/ Superimposed Hyperactive Delirium Baseline mentation - struggles with word finding but is able to communicate more fully and can perform some of his daily activities of living independently. - Know hx of alcoholic cirrhosis with previous HE - Admitted 07/22/2022 d/t hyperammonemia of 156 - CT Head (08/12) and CXR (07/22) w/o acute change - Blood cx 08/12 neg - Continue melatonin 3mg q1800 daily - Delirium precautions ongoing - Continue lactulose, rifaximin. Goal of 3-4 BMs per day - Pt with acute mental status change 09/03 - improved with adding extra dose of lactulose - rectal - per nursing, pt having excessive BM- 5 total yesterday - will reduce rectal lactulose to every other day, skipping today's dose Hypokalemia - K= 3.4 this AM - supplemented with 40 mEq powder Hyperbilirubinemia - Pt with elevated bilirubin at 4.8 secondary to chronic liver disease - Lipase and LFT's are within baseline - US liver showed nonvisualization of the gallbladder and common bile duct as well as cirrhosis w/o hepatic mass - Bilirubin stable; continues to stabilize/down trend Hyponatremia - resolved Alcoholic Liver Cirrhosis - MELD 18 upon admission - Lasix 40 mg Atrial Fibrillation - Not on anticoagulation due to recent intraparenchymal hemorrhage - Episodes of irregular rhythm Hypertension - Continue home lisinopril 5 mg Hx of Intracranial Hemorrhage - Continue levetiracetam Deconditioning - PT f/u to reeval - recs 12/05 care either at SNF or at home with home health depending on family choice. CM informed. - 08/17 PT noted failure to progress beyond requirement of 24 hour supervision: recommended 24 hour care, PCF, and return home - pt originally to go to [facility] 08/19, - Pending placement: per CM, insurance denied SNF. Called insurance and they said we need to await a "denial letter." CM looking into this. GERD - Continue Protonix COPD - Continue home inhaler (2) Alcoholic cirrhosis of liver: (3) GERD (gastroesophageal reflux disease): (4) Hypertension: (5) COPD (chronic obstructive pulmonary disease): (6) Patient unarousable: Plan Diet:Fully alert -minced and moist; less alert -pureed DVT ppx:SCDs only d/t intracranial hemorrhage hx Dispo:pending long term placement, insurance denied SNF placement- currently appealing, also w/ referrals elsewhere Code Status:DNR/DNI Admission and Anticipated Discharge Date Admission Date: July 23, 2022 Supervising Physician Co-Signing Physician Notes Resident Physician Supervision Note: I independently interviewed and examined the patient and verified the lebron history and physical, reviewed labs and image studies and agree with resident findings and care plan. Subjective Pt is a 71 yo male with PMH of intracranial hemorrhage, alcohol induced cirrhosis, atrial fibrillation, insomnia, gout, carotid artery stenosis, COPD, who was admitted to the hospital for altered mental status. His presentation was unchanged from previous admission. His confusion is secondary to hepatic encephalopathy with possible component of superimposed delirium. Pt at baseline today. He is sitting up in his bed, eating breakfast. He is very conversational this morning. Overall he says he is alright and "getting better." Physical Exam Constitutional: NAD. Vitals WNL. Eyes: no conjunctival abnormality Respiratory: CTA bilaterally. No rhonchi, wheezing, or crackles. Non labored breathing. Cardiovascular: RRR. No murmur noted. No LE edema. Skin: no rashes, warm and dry Psychiatric: Alert. Mood and affect congruent. Results & Data Results & Data ([facility]) Vital Signs (Past 12 Hours) Vital Signs Temp Pulse Resp BP Pulse Ox O2 Del Method 09/06/22 22:03 36.6 C 66 16 106/60 96 Room Air 09/06/22 19:31 Room Air Resident Activity Tracking Resident Involvement: Resident Care Provided Care Provided: Adult Hospital Medicine
[2022-09-07 08:08] LABS: BUN Creatinine Ratio 22.4 (10-20); Calcium 7.9 mg/dl (8.5-10.1); Creatinine Clr Calc Pharmacy 75.8 ml/min; Est GFR (African American) 102.3 ml/min; Est GFR (Non-African American) 88.3 ml/min; Potassium 3.4 mmol/L (3.5-5.1)
[2022-09-07] MEDS ORDERED: POTASSIUM CHLORIDE PWD 20 MEQ PACK PO ONE (08:30)
[2022-09-07] MEDS: THIAMINE HCL 100 MG TAB PO SCH (09:49)
[2022-09-07] MEDS: CHOLECALCIFEROL 1,000 UNITS 25 MCG TAB PO SCH (09:49)
[2022-09-07] MEDS: CYANOCOBALAMIN (B-12) 500 MCG TABLET PO SCH (09:50)
[2022-09-07] MEDS: FOLIC ACID 1 MG TAB PO SCH (09:50)
[2022-09-07] MEDS: MULTIVITAMIN TAB PO SCH (09:50)
[2022-09-07] MEDS: PANTOprazole 40 MG TAB PO SCH ×2 (09:50→20:14)
[2022-09-07] MEDS: levETIRAcetam 500 MG TAB PO SCH ×2 (09:50→20:14)
[2022-09-07] MEDS: rifAXIMin 550 MG TABLET PO SCH ×2 (09:51→20:15)
[2022-09-07] MEDS: FUROSEMIDE 40 MG TAB PO SCH ×2 (09:51→17:18)
[2022-09-07] MEDS: FERROUS SULFATE 325 MG TAB PO SCH ×2 (09:52→20:14)
[2022-09-07] MEDS: UMECLIDINIUM/VILANTEROL 62.5/25MCG 7 PUFFS/INHALER INH SCH (09:52)
[2022-09-07] MEDS: LACTULOSE SYRUP 30 GM/45 ML UDP PO SCH ×4 (09:52→20:14)
[2022-09-07] MEDS: MELATONIN 3 MG TAB PO SCH (20:14)
--- NOTE | 2022-09-08 07:20 | Hospitalist Progress Note ---
Date of Service September 08, 2022 Assessment & Plan (1) Acute alteration in mental status: Plan: Pt is a 71 yo male with PMH of intracranial hemorrhage, alcohol induced cirrhosis, atrial fibrillation, insomnia, gout, carotid artery stenosis, COPD, who was admitted to the hospital for altered mental status. His presentation was unchanged from previous admission. His confusion is secondary to hepatic encephalopathy with possible component of superimposed delirium. Altered Mental Status: 2/2 Hepatic Encephalopathy w/ Superimposed Hyperactive Delirium Baseline mentation - struggles with word finding but is able to communicate more fully and can perform some of his daily activities of living independently. - Know hx of alcoholic cirrhosis with previous HE - Admitted 07/22/2022 d/t hyperammonemia of 156 - CT Head (08/12) and CXR (07/22) w/o acute change - Blood cx 08/12 neg - Continue melatonin 3mg q1800 daily - Delirium precautions ongoing - Continue lactulose, rifaximin. Goal of 3-4 BMs per day - Pt with acute mental status change 09/03 - improved with adding extra dose of lactulose - rectal - reduced rectal lactulose to every other day d/t excessive loose stools Asymptomatic bacteriuria - UA collected d/t abrupt change in mental status 09/03 - UA grew >100,000 E. coli and Klebsiella - Mental status returned to baseline w/ increased dose of lactulose to decrease ammonia levels - no tx necessary at this time Hypokalemia - K= 4.6 this AM Hyperbilirubinemia - Pt with elevated bilirubin at 4.8 secondary to chronic liver disease - Lipase and LFT's are within baseline - US liver showed nonvisualization of the gallbladder and common bile duct as well as cirrhosis w/o hepatic mass - Bilirubin stable; continues to stabilize/down trend Hyponatremia - resolved Alcoholic Liver Cirrhosis - MELD 18 upon admission - Lasix 40 mg Atrial Fibrillation - Not on anticoagulation due to recent intraparenchymal hemorrhage - Episodes of irregular rhythm Hypertension - Continue home lisinopril 5 mg Hx of Intracranial Hemorrhage - Continue levetiracetam Deconditioning - PT recommends 24/7 care either at SNF or at home with home health depending on family choice - 08/17 PT noted failure to progress beyond requirement of 24 hour supervision: recommended 24 hour care, PCF, and return home - pt originally to go to [facility] 08/19 - Pending placement: per CM, insurance denied SNF. Called insurance and they said we need to await a "denial letter." CM looking into this. No updates over weekend. GERD - Continue Protonix COPD - Continue home inhaler (2) Alcoholic cirrhosis of liver: (3) GERD (gastroesophageal reflux disease): (4) Hypertension: (5) COPD (chronic obstructive pulmonary disease): (6) Patient unarousable: (7) Asymptomatic bacteriuria: Plan Diet:Fully alert -minced and moist; less alert -pureed DVT ppx:SCDs only d/t intracranial hemorrhage hx Dispo:pending assisted placement, insurance denied SNF placement- currently appealing, also w/ referrals elsewhere Code Status:DNR/DNI Admission and Anticipated Discharge Date Admission Date: July 23, 2022 Supervising Physician Co-Signing Physician Notes Resident Physician Supervision Note: I independently interviewed and examined the patient and verified the lebron history and physical, reviewed labs and image studies and agree with resident findings and care plan. Subjective Pt is a 71 yo male with PMH of intracranial hemorrhage, alcohol induced cir rhosis, atrial fibrillation, insomnia, gout, carotid artery stenosis, COPD, who was admitted to the hospital for altered mental status. His presentation was unchanged from previous admission. His confusion is secondary to hepatic encephalopathy with possible component of superimposed delirium. Pt feeling well this morning. No acute events overnight. He is able to communicate that he feels good and enjoyed his breakfast. Physical Exam Constitutional: NAD. Vitals WNL. Eyes: no conjunctival abnormality Respiratory: CTA bilaterally. No rhonchi, wheezing, or crackles. Non labored breathing. Cardiovascular: RRR. No murmur noted. No LE edema. Gastrointestinal (Abdomen): Nontender, +BS. No masses noted. Skin: no rashes, warm and dry Psychiatric: Alert. Mood and affect congruent. Results & Data Results & Data ([facility]) Vital Signs (Past 12 Hours) Vital Signs Temp Pulse Resp BP Pulse Ox O2 Del Method 09/07/22 20:15 Room Air 09/07/22 22:40 36.7 C 68 18 110/47 L 97 Room Air Resident Activity Tracking Resident Involvement: Resident Care Provided Care Provided: Adult Hospital Medicine
[2022-09-08] MEDS: LACTULOSE SYRUP 30 GM/45 ML UDP PO SCH ×4 (09:16→20:01)
[2022-09-08] MEDS: CHOLECALCIFEROL 1,000 UNITS 25 MCG TAB PO SCH (09:17)
[2022-09-08] MEDS: THIAMINE HCL 100 MG TAB PO SCH (09:17)
[2022-09-08] MEDS: levETIRAcetam 500 MG TAB PO SCH ×2 (09:17→20:01)
[2022-09-08] MEDS: FUROSEMIDE 40 MG TAB PO SCH ×2 (09:17→16:24)
[2022-09-08] MEDS: PANTOprazole 40 MG TAB PO SCH ×2 (09:17→20:01)
[2022-09-08] MEDS: MULTIVITAMIN TAB PO SCH (09:18)
[2022-09-08] MEDS: FOLIC ACID 1 MG TAB PO SCH (09:18)
[2022-09-08] MEDS: rifAXIMin 550 MG TABLET PO SCH ×2 (09:18→20:01)
[2022-09-08] MEDS: CYANOCOBALAMIN (B-12) 500 MCG TABLET PO SCH (09:18)
[2022-09-08] MEDS: UMECLIDINIUM/VILANTEROL 62.5/25MCG 7 PUFFS/INHALER INH SCH (09:18)
[2022-09-08] MEDS: FERROUS SULFATE 325 MG TAB PO SCH ×2 (09:18→20:01)
[2022-09-08 09:59] LABS: BUN Creatinine Ratio 21.8 (10-20); Calcium 8.3 mg/dl (8.5-10.1); Creatinine Clr Calc Pharmacy 74.1 ml/min; Est GFR (African American) 101.3 ml/min; Est GFR (Non-African American) 87.4 ml/min; Potassium 4.6 mmol/L (3.5-5.1)
[2022-09-08] MEDS: LACTULOSE 200GM/700ML WTR ENEMA PR SCH (18:16)
[2022-09-08] MEDS: MELATONIN 3 MG TAB PO SCH (20:01)
--- NOTE | 2022-09-09 07:25 | Hospitalist Progress Note ---
Date of Service September 09, 2022 Assessment & Plan (1) Acute alteration in mental status: Plan: Pt is a 71 yo male with PMH of intracranial hemorrhage, alcohol induced cirrhosis, atrial fibrillation, insomnia, gout, carotid artery stenosis, COPD, who was admitted to the hospital for altered mental status. His presentation was unchanged from previous admission. His confusion is secondary to hepatic encephalopathy with possible component of superimposed delirium. Altered Mental Status: 2/2 Hepatic Encephalopathy w/ Superimposed Hyperactive Delirium Baseline mentation - struggles with word finding but is able to communicate more fully and can perform some of his daily activities of living independently. - Know hx of alcoholic cirrhosis with previous HE - Admitted 07/22/2022 d/t hyperammonemia of 156 - CT Head (08/12) and CXR (07/22) w/o acute change - Blood cx 08/12 neg - Continue melatonin 3mg q1800 daily - Delirium precautions ongoing - Continue lactulose, rifaximin. Goal of 3-4 BMs per day - Pt with acute mental status change 09/03 - improved with adding extra dose of lactulose - rectal - reduced rectal lactulose to every other day d/t excessive loose stools Asymptomatic bacteriuria - UA collected d/t abrupt change in mental status 09/03 - UA grew >100,000 E. coli and Klebsiella - Mental status returned to baseline w/ increased dose of lactulose to decrease ammonia levels - no tx necessary at this time Hypokalemia - monitoring labs every other day Hyperbilirubinemia - Pt with elevated bilirubin at 4.8 secondary to chronic liver disease - Lipase and LFT's are within baseline - US liver showed nonvisualization of the gallbladder and common bile duct as well as cirrhosis w/o hepatic mass - Bilirubin stable; continues to stabilize/down trend Hyponatremia - resolved Alcoholic Liver Cirrhosis - MELD 18 upon admission - Lasix 40 mg Atrial Fibrillation - Not on anticoagulation due to recent intraparenchymal hemorrhage - Episodes of irregular rhythm Hypertension - Continue home lisinopril 5 mg Hx of Intracranial Hemorrhage - Continue levetiracetam Deconditioning - PT recommends 24/7 care either at SNF or at home with home health depending on family choice - 08/17 PT noted failure to progress beyond requirement of 24 hour supervision: recommended 24 hour care, PCF, and return home - pt originally to go to [facility] 08/19 - Pending placement: per , insurance denied SNF. Unsuccessful peer to peer completed today. CM to continue looking for other placement. GERD - Continue Protonix COPD - Continue home inhaler (2) Alcoholic cirrhosis of liver: (3) GERD (gastroesophageal reflux disease): (4) Hypertension: (5) COPD (chronic obstructive pulmonary disease): (6) Patient unarousable: (7) Asymptomatic bacteriuria: Plan Diet:Fully alert -minced and moist; less alert -pureed DVT ppx:SCDs only d/t intracranial hemorrhage hx Dispo:pending [facility] placement, insurance denied SNF placement. [facility] unable to accept this week, but may be able to next week. Pending other referrals Code Status:DNR/DNI Admission and Anticipated Discharge Date Admission Date: July 23, 2022 Supervising Physician Co-Signing Physician Notes I personally examined the patient and verified all lebron points of history and exam, discussed case, and agree with decision making with Dr Humphrey no new complaints. smiling and pleasant today vitals noted nad heent nc at mmm breathing unlabored no accessory muscles good effort skin no rashes no pallor or icterus neuro no focal deficits 1.Hepatic encephalopathy in the setting of known cirrhosis due to ETOH. Elevated ammonia level on admission. Continue lactulose, rifaximin. follow. 2.Hyperbilirubinemia. Related to chronic liver disease 3.Afib. Rate is controlled. Not anticoagulated due to prior hemorrhage. 4.Hypertension. Continue lisinopril and Lasix. 5.Hx of intracranial hemorrhage. Continue Keppra for seizure precautions. 6.Deconditioning. Unable to care for himself. Unfortunately, insurance declined SNF. Dispo: medically stable for discharge; still awaiting placement Subjective Pt is a 71 yo male with PMH of intracranial hemorrhage, alcohol induced cirrhosis, atrial fibrillation, insomnia, gout, carotid artery stenosis, COPD, who was admitted to the hospital for altered mental status. His presentation was unchanged from previous admission. His confusion is secondary to hepatic encephalopathy with possible component of superimposed delirium. Pt at baseline today. He is enjoying his breakfast when I spoke with him. He says he is doing good and would like to move to his chair after breakfast. I informed nursing. Physical Exam Constitutional: NAD. Vitals WNL. Eyes: no conjunctival abnormality Respiratory: CTA bilaterally. No rhonchi, wheezing, or crackles. Non labored breathing. Cardiovascular: Regular rate. Irregular rhythm. No murmur noted. No LE edema. Skin: no rashes, warm and dry Psychiatric: Alert. Mood and affect congruent. Results & Data Results & Data ([facility]) Vital Signs (Past 12 Hours) Vital Signs Temp Pulse Resp BP BP Pulse Ox O2 Del Method 09/09/22 06:25 36.7 C 60 18 112/62 96 Room Air 09/08/22 19:54 36.8 C 62 18 103/65 97 Room Air Resident Activity Tracking Resident Involvement: Resident Care Provided Care Provided: Adult Hospital Medicine
[2022-09-09] MEDS: LACTULOSE SYRUP 30 GM/45 ML UDP PO SCH ×4 (09:39→20:37)
[2022-09-09] MEDS: PANTOprazole 40 MG TAB PO SCH ×2 (09:40→20:37)
[2022-09-09] MEDS: FERROUS SULFATE 325 MG TAB PO SCH ×2 (09:40→20:37)
[2022-09-09] MEDS: levETIRAcetam 500 MG TAB PO SCH ×2 (09:40→20:37)
[2022-09-09] MEDS: rifAXIMin 550 MG TABLET PO SCH ×2 (09:40→20:37)
[2022-09-09] MEDS: MULTIVITAMIN TAB PO SCH (09:41)
[2022-09-09] MEDS: FOLIC ACID 1 MG TAB PO SCH (09:41)
[2022-09-09] MEDS: CHOLECALCIFEROL 1,000 UNITS 25 MCG TAB PO SCH (09:41)
[2022-09-09] MEDS: THIAMINE HCL 100 MG TAB PO SCH (09:41)
[2022-09-09] MEDS: CYANOCOBALAMIN (B-12) 500 MCG TABLET PO SCH (09:41)
[2022-09-09] MEDS: FUROSEMIDE 40 MG TAB PO SCH ×2 (09:42→16:43)
[2022-09-09] MEDS: UMECLIDINIUM/VILANTEROL 62.5/25MCG 7 PUFFS/INHALER INH SCH (09:42)
--- NOTE | 2022-09-09 19:37 | Billing Data ---
Date of Service September 09, 2022 Coding Level of Care Code 35449 Subseq Hosp Care Lvl 1
[2022-09-09] MEDS: MELATONIN 3 MG TAB PO SCH (20:39)
[2022-09-10] MEDS: rifAXIMin 550 MG TABLET PO SCH ×2 (08:27→20:30)
[2022-09-10] MEDS: MULTIVITAMIN TAB PO SCH (08:28)
[2022-09-10] MEDS: PANTOprazole 40 MG TAB PO SCH ×2 (08:28→20:30)
[2022-09-10] MEDS: levETIRAcetam 500 MG TAB PO SCH ×2 (08:28→20:30)
[2022-09-10] MEDS: FUROSEMIDE 40 MG TAB PO SCH ×2 (08:28→16:25)
[2022-09-10] MEDS: FERROUS SULFATE 325 MG TAB PO SCH ×2 (08:29→20:30)
[2022-09-10] MEDS: THIAMINE HCL 100 MG TAB PO SCH (08:29)
[2022-09-10] MEDS: CHOLECALCIFEROL 1,000 UNITS 25 MCG TAB PO SCH (08:29)
[2022-09-10] MEDS: FOLIC ACID 1 MG TAB PO SCH (08:30)
[2022-09-10] MEDS: CYANOCOBALAMIN (B-12) 500 MCG TABLET PO SCH (08:30)
[2022-09-10] MEDS: LACTULOSE SYRUP 30 GM/45 ML UDP PO SCH ×4 (08:30→20:30)
[2022-09-10] MEDS: UMECLIDINIUM/VILANTEROL 62.5/25MCG 7 PUFFS/INHALER INH SCH (08:30)
[2022-09-10 09:06] LABS: BUN Creatinine Ratio 19.6 (10-20); Calcium 8.1 mg/dl (8.5-10.1); Creatinine Clr Calc Pharmacy 66.4 ml/min; Est GFR (African American) 91.3 ml/min; Est GFR (Non-African American) 78.8 ml/min; Potassium 3.8 mmol/L (3.5-5.1)
--- NOTE | 2022-09-10 10:12 | Hospitalist Progress Note ---
Date of Service September 10, 2022 Assessment & Plan (1) Acute alteration in mental status: Plan: Pt is a 71 yo male with PMH of intracranial hemorrhage, alcohol induced cirrhosis, atrial fibrillation, insomnia, gout, carotid artery stenosis, COPD, who was admitted to the hospital for altered mental status. His presentation was unchanged from previous admission. His confusion is secondary to hepatic encephalopathy with possible component of superimposed delirium. Altered Mental Status: 2/2 Hepatic Encephalopathy w/ Superimposed Hyperactive Delirium Baseline mentation - struggles with word finding but is able to communicate more fully and can perform some of his daily activities of living independently. - Know hx of alcoholic cirrhosis with previous HE - Admitted 07/22/2022 d/t hyperammonemia of 156 - CT Head (08/12) and CXR (07/22) w/o acute change - Blood cx 08/12 neg - Continue melatonin 3mg q1800 daily - Delirium precautions ongoing - Continue lactulose, rifaximin. Goal of 3-4 BMs per day - Pt with acute mental status change 09/03 - improved with adding extra dose of lactulose - rectal - reduced rectal lactulose to every other day d/t excessive loose stools Asymptomatic bacteriuria - UA collected d/t abrupt change in mental status 09/03 - UA grew >100,000 E. coli and Klebsiella - Mental status returned to baseline w/ increased dose of lactulose to decrease ammonia levels - no tx necessary at this time Hypokalemia - monitoring labs every other day - most recent K 3.8 Hyperbilirubinemia - Pt with elevated bilirubin at 4.8 secondary to chronic liver disease - Lipase and LFT's are within baseline - US liver showed nonvisualization of the gallbladder and common bile duct as well as cirrhosis w/o hepatic mass - Bilirubin stable; continues to stabilize/down trend Hyponatremia - resolved Alcoholic Liver Cirrhosis - MELD 18 upon admission - Lasix 40 mg Atrial Fibrillation - Not on anticoagulation due to recent intraparenchymal hemorrhage - Episodes of irregular rhythm Hypertension - Continue home lisinopril 5 mg Hx of Intracranial Hemorrhage - Continue levetiracetam Deconditioning - PT recommends 24/7 care either at SNF or at home with home health depending on family choice - 08/17 PT noted failure to progress beyond requirement of 24 hour supervision: recommended 24 hour care, PCF, and return home - pt originally to go to [facility] 08/19 - Pending placement: per CM, insurance denied SNF. CM continuing to look for other placement. GERD - Continue Protonix COPD - Continue home inhaler (2) Alcoholic cirrhosis of liver: (3) GERD (gastroesophageal reflux disease): (4) Hypertension: (5) COPD (chronic obstructive pulmonary disease): (6) Patient unarousable: (7) Asymptomatic bacteriuria: Plan Diet:Fully alert -minced and moist; less alert -pureed DVT ppx:SCDs only d/t intracranial hemorrhage hx Dispo:pending half-way placement, insurance denied SNF placement. Pending other referrals Code Status:DNR/DNI Admission and Anticipated Discharge Date Admission Date: July 23, 2022 Supervising Physician Co-Signing Physician Notes I personally examined the patient and verified all lebron points of history and exam, discussed case, and agree with decision making with Dr Humphrey no new problems noted. Again smiling and pleasant today vitals noted nad heent nc at mmm breathing unlabored no accessory muscles good effort skin no rashes no pallor or icterus neuro no focal deficits 1.Hepatic encephalopathy in the setting of known cirrhosis due to ETOH. Elevated ammonia level on admission. Continue lactulose, rifaximin. follow. 2.Hyperbilirubinemia. Related to chronic liver disease 3.Afib. Rate is controlled. Not anticoagulated due to prior hemorrhage. 4.Hypertension. Continue lisinopril and Lasix. 5.Hx of intracranial hemorrhage. Continue Keppra for seizure precautions. 6.Deconditioning. Unable to care for himself. Unfortunately, insurance declined SNF. Dispo: medically stable for discharge; still awaiting placement Subjective Pt is a 71 yo male with PMH of intracranial hemorrhage, alcohol induced cirrhosis, atrial fibrillation, insomnia, gout, carotid artery stenosis, COPD, who was admitted to the hospital for altered mental status. His presentation was unchanged from previous admission. His confusion is secondary to hepatic encephalopathy with possible component of superimposed delirium. Pt at baseline today. He states he is feeling well. Physical Exam Constitutional: NAD. Vitals WNL. Eyes: no conjunctival abnormality Respiratory: CTA bilaterally. No rhonchi, wheezing, or crackles. Non labored breathing. Cardiovascular: RRR. No murmur noted. No LE edema. Gastrointestinal (Abdomen): Nontender, +BS. No masses noted. Skin: no rashes, warm and dry Psychiatric: Alert. Mood and affect congruent. Results & Data Results & Data ([facility]) Vital Signs (Past 12 Hours) Vital Signs Temp Pulse Resp BP Pulse Ox O2 Del Method 09/10/22 07:45 Room Air 09/10/22 07:04 36.8 C 69 20 116/68 96 Room Air Resident Activity Tracking Resident Involvement: Resident Care Provided Care Provided: Adult Hospital Medicine
[2022-09-10] MEDS: LACTULOSE 200GM/700ML WTR ENEMA PR SCH (11:18)
--- NOTE | 2022-09-10 18:39 | Billing Data ---
Date of Service September 10, 2022 Coding Level of Care Code 80832 Subseq Hosp Care Lvl 1
[2022-09-10] MEDS: MELATONIN 3 MG TAB PO SCH (20:30)
--- NOTE | 2022-09-11 07:33 | Hospitalist Progress Note ---
Date of Service September 11, 2022 Assessment & Plan (1) Acute alteration in mental status: Plan: Pt is a 71 yo male with PMH of intracranial hemorrhage, alcohol induced cirrhosis, atrial fibrillation, insomnia, gout, carotid artery stenosis, COPD, who was admitted to the hospital for altered mental status. His presentation was unchanged from previous admission. His confusion is secondary to hepatic encephalopathy with possible component of superimposed delirium. Altered Mental Status: 2/2 Hepatic Encephalopathy w/ Superimposed Hyperactive Delirium Baseline mentation - struggles with word finding but is able to communicate more fully and can perform some of his daily activities of living independently. - Know hx of alcoholic cirrhosis with previous HE - Admitted 07/22/2022 d/t hyperammonemia of 156 - CT Head (08/12) and CXR (07/22) w/o acute change - Blood cx 08/12 neg - Continue melatonin 3mg q1800 daily - Delirium precautions ongoing - Continue lactulose, rifaximin. Goal of 3-4 BMs per day - Pt with acute mental status change 09/03 - improved with adding extra dose of lactulose - rectal - reduced rectal lactulose to every other day d/t excessive loose stools - pt as baseline since adding rectal lactulose every other day Asymptomatic bacteriuria - UA collected d/t abrupt change in mental status 09/03 - UA grew >100,000 E. coli and Klebsiella - Mental status returned to baseline w/ increased dose of lactulose to decrease ammonia levels - no tx necessary at this time Hypokalemia - monitoring labs every other day - most recent K 3.8 Hyperbilirubinemia - Pt with elevated bilirubin at 4.8 secondary to chronic liver disease - Lipase and LFT's are within baseline - US liver showed nonvisualization of the gallbladder and common bile duct as well as cirrhosis w/o hepatic mass - Bilirubin stable; continues to stabilize/down trend Hyponatremia - resolved Alcoholic Liver Cirrhosis - MELD 18 upon admission - Lasix 40 mg Atrial Fibrillation - Not on anticoagulation due to recent intraparenchymal hemorrhage - Episodes of irregular rhythm Hypertension - Continue home lisinopril 5 mg Hx of Intracranial Hemorrhage - Continue levetiracetam Deconditioning - PT recommends 24/7 care either at SNF or at home with home health depending on family choice - 08/17 PT noted failure to progress beyond requirement of 24 hour supervision: recommended 24 hour care, PCF, and return home - pt originally to go to [facility] 08/19 - Pending placement: per CM, insurance denied SNF. CM continuing to look for other placement. GERD - Continue Protonix COPD - Continue home inhaler (2) Alcoholic cirrhosis of liver: (3) GERD (gastroesophageal reflux disease): (4) Hypertension: (5) COPD (chronic obstructive pulmonary disease): (6) Patient unarousable: (7) Asymptomatic bacteriuria: Plan Diet:Fully alert -minced and moist; less alert -pureed DVT ppx:SCDs only d/t intracranial hemorrhage hx Dispo:pending jail placement, insurance denied SNF placement. Pending other referrals Code Status:DNR/DNI Admission and Anticipated Discharge Date Admission Date: July 23, 2022 Supervising Physician Co-Signing Physician Notes I personally examined the patient and verified all lebron points of history and exam, discussed case, and agree with decision making with Dr Humphrey no new problems noted. resting comfortably vitals noted nad at rest heent nc at mmm breathing unlabored no accessory muscles good effort skin no rashes no pallor or icterus neuro no focal deficits 1.Hepatic encephalopathy in the setting of known cirrhosis due to ETOH. Elevated ammonia level on admission. Continue lactulose, rifaximin. follow. 2.Hyperbilirubinemia. Related to chronic liver disease 3.Afib. Rate is controlled. Not anticoagulated due to prior hemorrhage. 4.Hypertension. Continue lisinopril and Lasix. 5.Hx of intracranial hemorrhage. Continue Keppra for seizure precautions. 6.Deconditioning. Unable to care for himself. Unfortunately, insurance declined SNF. Dispo: medically stable for discharge; still awaiting placement Subjective Pt is a 71 yo male with PMH of intracranial hemorrhage, alcohol induced cirrhosis, atrial fibrillation, insomnia, gout, carotid artery stenosis, COPD, who was admitted to the hospital for altered mental status. His presentation was unchanged from previous admission. His confusion is secondary to hepatic encephalopathy with possible component of superimposed delirium. Pt doing well this morning. He seems happy and conversant. Physical Exam Constitutional: NAD. Vitals WNL. Eyes: Mildly icteric sclera bilaterally Respiratory: CTA bilaterally. No rhonchi, wheezing, or crackles. Non labored breathing. Cardiovascular: RRR. No murmur noted. No LL edema. Gastrointestinal (Abdomen): Nontender, +BS. No masses noted. Skin: no rashes, warm and dry Psychiatric: Alert. Mood and affect congruent. Results & Data Results & Data ([facility]) Vital Signs (Past 12 Hours) Vital Signs Temp Pulse Resp BP Pulse Ox O2 Del Method 09/10/22 20:25 36.7 C 65 18 121/68 95 Room Air Resident Activity Tracking Resident Involvement: Resident Care Provided Care Provided: Adult Hospital Medicine
[2022-09-11] MEDS: rifAXIMin 550 MG TABLET PO SCH ×2 (08:05→21:12)
[2022-09-11] MEDS: FOLIC ACID 1 MG TAB PO SCH (08:06)
[2022-09-11] MEDS: levETIRAcetam 500 MG TAB PO SCH ×2 (08:06→21:13)
[2022-09-11] MEDS: MULTIVITAMIN TAB PO SCH (08:06)
[2022-09-11] MEDS: FERROUS SULFATE 325 MG TAB PO SCH ×2 (08:06→21:12)
[2022-09-11] MEDS: PANTOprazole 40 MG TAB PO SCH ×2 (08:06→21:12)
[2022-09-11] MEDS: CYANOCOBALAMIN (B-12) 500 MCG TABLET PO SCH (08:07)
[2022-09-11] MEDS: CHOLECALCIFEROL 1,000 UNITS 25 MCG TAB PO SCH (08:07)
[2022-09-11] MEDS: THIAMINE HCL 100 MG TAB PO SCH (08:07)
[2022-09-11] MEDS: UMECLIDINIUM/VILANTEROL 62.5/25MCG 7 PUFFS/INHALER INH SCH (08:08)
[2022-09-11] MEDS: FUROSEMIDE 40 MG TAB PO SCH ×2 (08:08→17:13)
[2022-09-11] MEDS: LACTULOSE SYRUP 30 GM/45 ML UDP PO SCH ×4 (08:10→21:12)
--- NOTE | 2022-09-11 19:17 | Billing Data ---
Date of Service September 11, 2022 Coding Level of Care Code 24476 Subseq Hosp Care Lvl 1
[2022-09-11] MEDS: MELATONIN 3 MG TAB PO SCH (21:12)
--- NOTE | 2022-09-12 07:49 | Hospitalist Progress Note ---
Date of Service September 12, 2022 Assessment & Plan (1) Acute alteration in mental status: Plan: Pt is a 71 yo male with PMH of intracranial hemorrhage, alcohol induced cirrhosis, atrial fibrillation, insomnia, gout, carotid artery stenosis, COPD, who was admitted to the hospital for altered mental status. His presentation was unchanged from previous admission. His confusion is secondary to hepatic encephalopathy with possible component of superimposed delirium. Altered Mental Status: 2/2 Hepatic Encephalopathy w/ Superimposed Hyperactive Delirium Baseline mentation - struggles with word finding but is able to communicate more fully and can perform some of his daily activities of living independently. - Know hx of alcoholic cirrhosis with previous HE - Admitted 07/22/2022 d/t hyperammonemia of 156 - CT Head (08/12) and CXR (07/22) w/o acute change - Blood cx 08/12 neg - Continue melatonin 3mg q1800 daily - Delirium precautions ongoing - Continue lactulose, rifaximin. Goal of 3-4 BMs per day - Pt with acute mental status change 09/03 - improved with adding extra dose of lactulose - rectal - reduced rectal lactulose to every other day d/t excessive loose stools - pt as baseline since adding rectal lactulose every other day Asymptomatic bacteriuria - UA collected d/t abrupt change in mental status 09/03 - UA grew >100,000 E. coli and Klebsiella - Mental status returned to baseline w/ increased dose of lactulose to decrease ammonia levels - no tx necessary at this time Hypokalemia - monitoring labs every other day - most recent K 3.5 Hyperbilirubinemia - Pt with elevated bilirubin at 4.8 secondary to chronic liver disease - Lipase and LFT's are within baseline - US liver showed nonvisualization of the gallbladder and common bile duct as well as cirrhosis w/o hepatic mass - Bilirubin continues to stabilize/down trend Hyponatremia - resolved Alcoholic Liver Cirrhosis - MELD 18 upon admission - Lasix 40 mg Atrial Fibrillation - Not on anticoagulation due to recent intraparenchymal hemorrhage - Episodes of irregular rhythm Hypertension - Continue home lisinopril 5 mg Hx of Intracranial Hemorrhage - Continue levetiracetam Deconditioning - PT recommends 24/7 care either at SNF or at home with home health depending on family choice - 08/17 PT noted failure to progress beyond requirement of 24 hour supervision: recommended 24 hour care, PCF, and return home - pt originally to go to [facility] 08/19 - Pending placement: per CM, insurance denied SNF. CM continuing to look for other placement. GERD - Continue Protonix COPD - Continue home inhaler (2) Alcoholic cirrhosis of liver: (3) GERD (gastroesophageal reflux disease): (4) Hypertension: (5) COPD (chronic obstructive pulmonary disease): (6) Patient unarousable: (7) Asymptomatic bacteriuria: Plan Diet:Fully alert -minced and moist; less alert -pureed DVT ppx:SCDs only d/t intracranial hemorrhage hx Dispo:pending nursing home placement, insurance denied SNF placement. Pending other referrals Code Status:DNR/DNI Admission and Anticipated Discharge Date Admission Date: July 23, 2022 Supervising Physician Co-Signing Physician Notes I personally saw and examined the patient. I verified all lebron points and agree with DAMI Waddell with the following exceptions and/or additions: S-Pt has no complaints. O- Vitals reviewed Gen: [AAOx1, NAD] HEENT: [anicteric sclerae, EOMI] CV: [irreg irreg normal rate, no mgr nl S1S2] Pulm: [CTAB no wcr] Abd: [+BS soft NT ND no masses or hernias] Ext: [trace edema] Skin: [no rashes, warm/dry] Neuro: [full strength throughout] A/P- 1.Hepatic encephalopathy in the setting of known cirrhosis due to ETOH. Elevated ammonia level on admission. Continue lactulose, rifaximin. follow. 2.Hyperbilirubinemia. Related to chronic liver disease 3.Afib. Rate is controlled. Not anticoagulated due to prior hemorrhage. 4.Hypertension. Continue lisinopril and Lasix. 5.Hx of intracranial hemorrhage. Continue Keppra for seizure precautions. 6.Deconditioning. Unable to care for himself. Unfortunately, insurance declined SNF. Dispo: medically stable for discharge; still awaiting placement Subjective Pt is a 71 yo male with PMH of intracranial hemorrhage, alcohol induced cirrhosis, atrial fibrillation, insomnia, gout, carotid artery stenosis, COPD, who was admitted to the hospital for altered mental status. His presentation was unchanged from previous admission. His confusion is secondary to hepatic encephalopathy with possible component of superimposed delirium. Pt at baseline this morning. He seemed slower to talk/respond but suspect this is from him just waking up. After talking for a minute or two, pt seemed to be in a good mood. Review of Systems Review of Systems: All systems reviewed & are unremarkable except as noted in HPI & below Physical Exam Constitutional: NAD. Vitals WNL. Eyes: Mild icterus Respiratory: CTA bilaterally. No rhonchi, wheezing, or crackles. Non labored breathing. Cardiovascular: RRR. No murmur noted. No LL edema. Gastrointestinal (Abdomen): Nontender, +BS. No masses noted. Skin: no rashes, warm and dry Psychiatric: Alert. Mood and affect congruent. Results & Data Results & Data ([facility]) Vital Signs (Past 12 Hours) Vital Signs Temp Pulse Resp BP BP Pulse Ox O2 Del Method 09/12/22 07:47 36.5 C 65 18 142/71 H 94 Room Air 09/12/22 07:32 36.6 C 56 L 16 100/44 L 95 Room Air 09/11/22 22:45 36.7 C 75 18 111/64 95 Room Air 09/11/22 21:00 Room Air Resident Activity Tracking Resident Involvement: Resident Care Provided Care Provided: Adult Hospital Medicine
[2022-09-12] MEDS: rifAXIMin 550 MG TABLET PO SCH ×2 (08:04→20:01)
[2022-09-12] MEDS: FERROUS SULFATE 325 MG TAB PO SCH ×2 (08:05→20:01)
[2022-09-12] MEDS: levETIRAcetam 500 MG TAB PO SCH ×2 (08:05→20:01)
[2022-09-12] MEDS: FUROSEMIDE 40 MG TAB PO SCH ×2 (08:06→16:26)
[2022-09-12] MEDS: FOLIC ACID 1 MG TAB PO SCH (08:06)
[2022-09-12] MEDS: THIAMINE HCL 100 MG TAB PO SCH (08:06)
[2022-09-12] MEDS: CHOLECALCIFEROL 1,000 UNITS 25 MCG TAB PO SCH (08:07)
[2022-09-12] MEDS: UMECLIDINIUM/VILANTEROL 62.5/25MCG 7 PUFFS/INHALER INH SCH (08:07)
[2022-09-12] MEDS: MULTIVITAMIN TAB PO SCH (08:07)
[2022-09-12] MEDS: LACTULOSE SYRUP 30 GM/45 ML UDP PO SCH ×4 (08:07→20:00)
[2022-09-12 08:58] LABS: BUN Creatinine Ratio 19.4 (10-20); Calcium 8.1 mg/dl (8.5-10.1); Creatinine Clr Calc Pharmacy 65.7 ml/min; Est GFR (African American) 90.2 ml/min; Est GFR (Non-African American) 77.8 ml/min; Potassium 3.5 mmol/L (3.5-5.1)
[2022-09-12] MEDS: PANTOprazole 40 MG TAB PO SCH ×2 (09:20→20:01)
[2022-09-12] MEDS: CYANOCOBALAMIN (B-12) 500 MCG TABLET PO SCH (09:20)
[2022-09-12] MEDS: LACTULOSE 200GM/700ML WTR ENEMA PR SCH (12:50)
[2022-09-12] MEDS: MELATONIN 3 MG TAB PO SCH (20:01)
--- NOTE | 2022-09-12 23:52 | Billing Data ---
Date of Service September 12, 2022 Coding Level of Care Code 81128 Subseq Hosp Care Lvl 1
--- NOTE | 2022-09-13 08:05 | Hospitalist Progress Note ---
Date of Service September 13, 2022 Assessment & Plan (1) Acute alteration in mental status: Plan: Pt is a 71 yo male with PMH of intracranial hemorrhage, alcohol induced cirrhosis, atrial fibrillation, insomnia, gout, carotid artery stenosis, COPD, who was admitted to the hospital for altered mental status. His presentation was unchanged from previous admission. His confusion is secondary to hepatic encephalopathy with possible component of superimposed delirium. Altered Mental Status: 2/2 Hepatic Encephalopathy w/ Superimposed Hyperactive Delirium Baseline mentation - struggles with word finding but is able to communicate more fully and can perform some of his daily activities of living independently. - Know hx of alcoholic cirrhosis with previous HE - Admitted 07/22/2022 d/t hyperammonemia of 156 - CT Head (08/12) and CXR (07/22) w/o acute change - Blood cx 08/12 neg - Continue melatonin 3mg q1800 daily - Delirium precautions ongoing - Continue lactulose, rifaximin. Goal of 3-4 BMs per day - Pt with acute mental status change 09/03 - improved with adding extra dose of lactulose - rectal - reduced rectal lactulose to every other day d/t excessive loose stools - pt as baseline since adding rectal lactulose every other day Asymptomatic bacteriuria - UA collected d/t abrupt change in mental status 09/03 - UA grew >100,000 E. coli and Klebsiella - Mental status returned to baseline w/ increased dose of lactulose to decrease ammonia levels - no tx necessary at this time Hypokalemia - monitoring labs every other day - most recent K 3.5 Hyperbilirubinemia - Pt with elevated bilirubin at 4.8 secondary to chronic liver disease - Lipase and LFT's are within baseline - US liver showed nonvisualization of the gallbladder and common bile duct as well as cirrhosis w/o hepatic mass - Bilirubin stable; continues to stabilize/down trend Hyponatremia - resolved Alcoholic Liver Cirrhosis - MELD 18 upon admission - Lasix 40 mg Atrial Fibrillation - Not on anticoagulation due to recent intraparenchymal hemorrhage - Episodes of irregular rhythm Hypertension - Continue home lisinopril 5 mg Hx of Intracranial Hemorrhage - Continue levetiracetam Deconditioning - PT recommends 24/7 care either at SNF or at home with home health depending on family choice - 08/17 PT noted failure to progress beyond requirement of 24 hour supervision: recommended 24 hour care, PCF, and return home - pt originally to go to [facility] 08/19 - Pending placement: per CM, insurance denied SNF. CM continuing to look for other placement. GERD - Continue Protonix COPD - Continue home inhaler (2) Alcoholic cirrhosis of liver: (3) GERD (gastroesophageal reflux disease): (4) Hypertension: (5) COPD (chronic obstructive pulmonary disease): (6) Patient unarousable: (7) Asymptomatic bacteriuria: Plan Diet:Fully alert -minced and moist; less alert -pureed DVT ppx:SCDs only d/t intracranial hemorrhage hx Dispo:pending half-way placement, insurance denied SNF placement. CM awaiting to hear from [place] [facility] among other referrals Code Status:DNR/DNI Admission and Anticipated Discharge Date Admission Date: July 23, 2022 Supervising Physician Co-Signing Physician Notes I personally examined the patient and verified all lebron points of history and exam, discussed case, and agree with decision making with Dr. Humphrey with the following additions/exceptions: S- Patient remains confused. Denies problems. Cannot remember if he ate today O- Vitals reviewed Gen: AAOx1, NAD HEENT: Anicteric sclerae, EOMI CV: RRR no mgr nl S1S2 Pulm: CTAB no wcr Abd: +BS soft NT ND no masses or hernias Ext: Trace edema legs bilaterally Skin: No rashes, warm/dry Neuro: Full strength throughout A/V-89-myxo-old male here with hepatic encephalopathy which is now resolved. Stable and awaiting placement at rehab Continue plan as above Subjective Pt is a 71 yo male with PMH of intracranial hemorrhage, alcohol induced cirrhosis, atrial fibrillation, insomnia, gout, carotid artery stenosis, COPD, who was admitted to the hospital for altered mental status. His presentation was unchanged from previous admission. His confusion is secondary to hepatic encephalopathy with possible component of superimposed delirium. Pt at baseline this afternoon. He was sleep comfortably in bed. He awoke easily to my voice. He states he is doing well. Review of Systems Review of Systems: Unobtainable due to cognitive status Physical Exam Constitutional: NAD. Vitals WNL. Eyes: no conjunctival abnormality Respiratory: CTA bilaterally. No rhonchi, wheezing, or crackles. Non labored breathing. Cardiovascular: RRR. No murmur noted. No LE edema. Gastrointestinal (Abdomen): Soft, nontender, +BS. No masses noted. Skin: no rashes, warm and dry Results & Data Results & Data ([facility]) Vital Signs (Past 12 Hours) Vital Signs Temp Pulse Resp BP Pulse Ox O2 Del Method 09/13/22 07:37 37.7 C H 62 18 105/62 95 Room Air 09/12/22 21:52 36.6 C 70 18 154/68 H 97 Room Air Resident Activity Tracking Resident Involvement: Resident Care Provided Care Provided: Adult Hospital Medicine
[2022-09-13] MEDS: CYANOCOBALAMIN (B-12) 500 MCG TABLET PO SCH (10:47)
[2022-09-13] MEDS: FUROSEMIDE 40 MG TAB PO SCH ×2 (10:47→17:17)
[2022-09-13] MEDS: PANTOprazole 40 MG TAB PO SCH ×2 (10:48→20:11)
[2022-09-13] MEDS: FERROUS SULFATE 325 MG TAB PO SCH ×2 (10:48→20:11)
[2022-09-13] MEDS: levETIRAcetam 500 MG TAB PO SCH ×2 (10:48→20:11)
[2022-09-13] MEDS: MULTIVITAMIN TAB PO SCH (10:48)
[2022-09-13] MEDS: CHOLECALCIFEROL 1,000 UNITS 25 MCG TAB PO SCH (10:48)
[2022-09-13] MEDS: FOLIC ACID 1 MG TAB PO SCH (10:48)
[2022-09-13] MEDS: THIAMINE HCL 100 MG TAB PO SCH (10:48)
[2022-09-13] MEDS: rifAXIMin 550 MG TABLET PO SCH ×2 (10:48→20:11)
[2022-09-13] MEDS: LACTULOSE SYRUP 30 GM/45 ML UDP PO SCH ×4 (10:49→20:11)
[2022-09-13] MEDS: UMECLIDINIUM/VILANTEROL 62.5/25MCG 7 PUFFS/INHALER INH SCH (10:49)
--- NOTE | 2022-09-13 20:26 | Billing Data ---
Date of Service September 13, 2022 Coding Level of Care Code 85040 Subseq Hosp Care Lvl 1
[2022-09-14 06:36] LABS: Calcium 7.7 mg/dl (8.5-10.1); Creatinine Clr Calc Pharmacy 67.8 ml/min; Est GFR (African American) 93.6 ml/min; Est GFR (Non-African American) 80.8 ml/min; Potassium 3.4 mmol/L (3.5-5.1)
--- NOTE | 2022-09-14 06:38 | Hospitalist Progress Note ---
Date of Service September 14, 2022 Assessment & Plan (1) Acute alteration in mental status: Plan: Pt is a 71 yo male with PMH of intracranial hemorrhage, alcohol induced cirrhosis, atrial fibrillation, insomnia, gout, carotid artery stenosis, COPD, who was admitted to the hospital for altered mental status. His presentation was unchanged from previous admission. His confusion is secondary to hepatic encephalopathy with possible component of superimposed delirium. Altered Mental Status: 2/2 Hepatic Encephalopathy w/ Superimposed Hyperactive Delirium Baseline mentation - struggles with word finding but is able to communicate more fully and can perform some of his daily activities of living independently. - Know hx of alcoholic cirrhosis with previous HE - Admitted 07/22/2022 d/t hyperammonemia of 156 - CT Head (08/12) and CXR (07/22) w/o acute change - Blood cx 08/12 neg - Continue melatonin 3mg q1800 daily - Delirium precautions ongoing - Continue lactulose, rifaximin. Goal of 3-4 BMs per day - Pt with acute mental status change 09/03 - improved with adding extra dose of lactulose - rectal - reduced rectal lactulose to every other day d/t excessive loose stools +Rectal lactulose held today due to loose stool, will resume tomorrow 09/15 - pt as baseline since adding rectal lactulose every other day Asymptomatic bacteriuria - UA collected d/t abrupt change in mental status 09/03 - UA grew >100,000 E. coli and Klebsiella - Mental status returned to baseline w/ increased dose of lactulose to decrease ammonia levels - no tx necessary at this time Hypokalemia - monitoring labs every other day - most recent K 3.4 (today- 09/14) Hyperbilirubinemia - Pt with elevated bilirubin at 4.8 secondary to chronic liver disease - Lipase and LFT's are within baseline - US liver showed nonvisualization of the gallbladder and common bile duct as well as cirrhosis w/o hepatic mass - Bilirubin stable; continues to stabilize/down trend Hyponatremia - resolved Alcoholic Liver Cirrhosis - MELD 18 upon admission - Lasix 40 mg Atrial Fibrillation - Not on anticoagulation due to recent intraparenchymal hemorrhage - Episodes of irregular rhythm Hypertension - Continue home lisinopril 5 mg Hx of Intracranial Hemorrhage - Continue levetiracetam Deconditioning - PT recommends / care either at SNF or at home with home health depending on family choice - 08/17 PT noted failure to progress beyond requirement of 24 hour supervision: recommended 24 hour care, PCF, and return home - pt originally to go to [facility] 08/19 - Pending placement: per CM, insurance denied SNF. CM continuing to look for other placement. GERD - Continue Protonix COPD - Continue home inhaler (2) Alcoholic cirrhosis of liver: (3) GERD (gastroesophageal reflux disease): (4) Hypertension: (5) COPD (chronic obstructive pulmonary disease): (6) Patient unarousable: (7) Asymptomatic bacteriuria: Plan Diet:Fully alert -minced and moist; less alert -pureed DVT ppx:SCDs only d/t intracranial hemorrhage hx Dispo:pending [place] [facility] placement, insurance denied SNF placement. CM awaiting to hear from [place] and [facility] among other referrals Code Status:DNR/DNI Admission and Anticipated Discharge Date Admission Date: July 23, 2022 Supervising Physician Co-Signing Physician Notes I personally examined the patient and verified all lebron points of history and exam, discussed case, and agree with decision making with Dr Gruber. Sleeping comfortably. No distress. Vitals noted. No focal deficits at rest, breathing unlabored. Skin without rashes pallor or icterus [id number] male here with hepatic encephalopathy which is now resolved. Stable and awaiting placement at rehab Continue plan as above Douglas Monzon is a 71 y/o male with PMH of intracranial hemorrhage, alcohol induced cirrhosis, atrial fibrillation, insomnia, gout, carotid artery stenosis, COPD, who was admitted to the hospital for altered mental status. His presentation was unchanged from previous admission. His confusion is secondary to hepatic en cephalopathy with possible component of superimposed delirium. Patient was seen and examined at bedside. Patient was awake and pleasant. Resting comfortably in bed. States he is doing well today, Review of Systems Review of Systems: Unobtainable due to cognitive status Physical Exam Eyes: +mild scleral icterus Neck: trachea midline, no thyromegaly Respiratory: normal respiratory effort, lungs clear to auscultation Cardiovascular: RRR, no murmur, no edema Gastrointestinal (Abdomen): Inspection/Auscultation: normal bowel sounds; abdomen not distended Psychiatric: Orientation: oriented to person Results & Data Results & Data ([facility]) Vital Signs (Past 12 Hours) Vital Signs Temp Pulse Pulse Resp BP BP Pulse Ox 09/14/22 00:12 36.4 C L 61 16 98/54 L 93 09/13/22 23:00 36.9 C 61 16 109/51 L 93 09/13/22 22:04 55 L 108/62 09/13/22 22:00 36.5 C 67 16 103/52 L 94 O2 Del Method 09/14/22 00:12 Room Air 09/13/22 23:00 Room Air 09/13/22 22:04 09/13/22 22:00 Room Air Resident Activity Tracking Resident Involvement: Resident Care Provided Care Provided: Adult Hospital Medicine
[2022-09-14] MEDS: FUROSEMIDE 40 MG TAB PO SCH ×2 (08:08→17:15)
[2022-09-14] MEDS: UMECLIDINIUM/VILANTEROL 62.5/25MCG 7 PUFFS/INHALER INH SCH (08:08)
[2022-09-14] MEDS: LACTULOSE SYRUP 30 GM/45 ML UDP PO SCH ×4 (08:09→20:25)
[2022-09-14] MEDS: MULTIVITAMIN TAB PO SCH (08:09)
[2022-09-14] MEDS: PANTOprazole 40 MG TAB PO SCH ×2 (08:10→20:26)
[2022-09-14] MEDS: CYANOCOBALAMIN (B-12) 500 MCG TABLET PO SCH (08:10)
[2022-09-14] MEDS: FERROUS SULFATE 325 MG TAB PO SCH ×2 (08:10→20:26)
[2022-09-14] MEDS: CHOLECALCIFEROL 1,000 UNITS 25 MCG TAB PO SCH (08:11)
[2022-09-14] MEDS: levETIRAcetam 500 MG TAB PO SCH ×2 (08:12→20:27)
[2022-09-14] MEDS: FOLIC ACID 1 MG TAB PO SCH (08:12)
[2022-09-14] MEDS: THIAMINE HCL 100 MG TAB PO SCH (08:13)
[2022-09-14] MEDS: rifAXIMin 550 MG TABLET PO SCH ×2 (08:13→20:27)
[2022-09-14] MEDS: LACTULOSE 200GM/700ML WTR ENEMA PR SCH (12:06)
--- NOTE | 2022-09-14 18:40 | Billing Data ---
Date of Service September 14, 2022 Coding Level of Care Code 07968 Subseq Hosp Care Lvl 1
[2022-09-14] MEDS: MELATONIN 3 MG TAB PO SCH (20:25)
--- NOTE | 2022-09-15 06:55 | Hospitalist Progress Note ---
Date of Service September 15, 2022 Assessment & Plan (1) Acute alteration in mental status: Plan: Pt is a 71 yo male with PMH of intracranial hemorrhage, alcohol induced cirrhosis, atrial fibrillation, insomnia, gout, carotid artery stenosis, COPD, who was admitted to the hospital for altered mental status. His presentation was unchanged from previous admission. His confusion is secondary to hepatic encephalopathy with possible component of superimposed delirium. Altered Mental Status: 2/2 Hepatic Encephalopathy w/ Superimposed Hyperactive Delirium Baseline mentation - struggles with word finding but is able to communicate more fully and can perform some of his daily activities of living independently. - Know hx of alcoholic cirrhosis with previous HE - Admitted 07/22/2022 d/t hyperammonemia of 156 - CT Head (08/12) and CXR (07/22) w/o acute change - Blood cx 08/12 neg - Continue melatonin 3mg q1800 daily - Delirium precautions ongoing - Continue lactulose, rifaximin. Goal of 3-4 BMs per day - Pt with acute mental status change 09/03 - improved with adding extra dose of lactulose - rectal - reduced rectal lactulose to every other day d/t excessive loose stools +Rectal lactulose held yesterday due to excessively loose stool, resumed today - pt as baseline since adding rectal lactulose every other day Asymptomatic bacteriuria - UA collected d/t abrupt change in mental status 09/03 - UA grew >100,000 E. coli and Klebsiella - Mental status returned to baseline w/ increased dose of lactulose to decrease ammonia levels - no tx necessary at this time Hypokalemia - monitoring labs every other day - most recent K 3.4 (yesterday- 09/14) Hyperbilirubinemia - Pt with elevated bilirubin at 4.8 secondary to chronic liver disease - Lipase and LFT's are within baseline - US liver showed nonvisualization of the gallbladder and common bile duct as well as cirrhosis w/o hepatic mass - Bilirubin stable; continues to stabilize/down trend Hyponatremia - resolved Alcoholic Liver Cirrhosis - MELD 18 upon admission - Lasix 40 mg Atrial Fibrillation - Not on anticoagulation due to recent intraparenchymal hemorrhage - Episodes of irregular rhythm Hypertension - Continue home lisinopril 5 mg Hx of Intracranial Hemorrhage - Continue levetiracetam Deconditioning - PT recommends 24/ care either at SNF or at home with home health depending on family choice - 08/17 PT noted failure to progress beyond requirement of 24 hour supervision: recommended 24 hour care, PCF, and return home - pt originally to go to [facility] 08/19 - Pending placement: per CM, insurance denied SNF. CM continuing to look for other placement. GERD - Continue Protonix COPD - Continue home inhaler (2) Alcoholic cirrhosis of liver: (3) GERD (gastroesophageal reflux disease): (4) Hypertension: (5) COPD (chronic obstructive pulmonary disease): (6) Patient unarousable: (7) Asymptomatic bacteriuria: Plan Diet:Fully alert -minced and moist; less alert -pureed DVT ppx:SCDs only d/t intracranial hemorrhage hx Dispo:pending alf placement, insurance denied SNF placement. CM awaiting to hear from [place] and [facility] among other referrals Code Status:DNR/DNI Admission and Anticipated Discharge Date Admission Date: July 23, 2022 Supervising Physician Co-Signing Physician Notes I personally examined the patient and verified all lebron points of history and exam, discussed case, and agree with decision making with Dr Gruber. Sitting in bed awake and pleasant no complaints. No distress. Vitals noted. Normocephalic atraumatic mucous membranes moist. Breathing unlabored no accessory muscle use good effort.. Skin without rashes pallor or icterus A/[id number]-old male here with hepatic encephalopathy which is now resolved. Stable and still awaiting placement or rehab Continue plan as above Subjective Nicolás is a 71 y/o male with PMH of intracranial hemorrhage, alcohol induced cirrhosis, atrial fibrillation, insomnia, gout, carotid artery stenosis, COPD, who was admitted to the hospital for altered mental status. His presentation was unchanged from previous admission. His confusion is secondary to hepatic encephalopathy with possible component of superimposed delirium. Pt was seen and examined at bedside. Nicolás was awake and interactive. Denies any trouble breathing or pain in chest. Review of Systems Review of Systems: Difficult to obtain, patient at baseline but only oriented to self. Physical Exam Constitutional: + altered mental status Eyes: + anicteric sclerae ENMT: Mouth: + poor dentition Neck: trachea midline, no thyromegaly Respiratory: normal respiratory effort, lungs clear to auscultation Cardiovascular: RRR, no murmur, no edema Vessels: no JVD Extremities: no edema Gastrointestinal (Abdomen): Inspection/Auscultation: abdomen not distended Percussion/Palpation: abdomen soft; abdomen nontender Musculoskeletal: Extremities: extremities normal to inspection Skin: no rashes, warm and dry Psychiatric: Orientation: oriented to person Results & Data Results & Data ([facility]) Vital Signs (Past 12 Hours) Vital Signs Temp Pulse Resp BP Pulse Ox O2 Del Method 09/14/22 19:50 Room Air 09/14/22 22:12 36.8 C 62 16 118/64 97 Room Air Resident Activity Tracking Resident Involvement: Resident Care Provided Care Provided: Adult Hospital Medicine
[2022-09-15] MEDS: FUROSEMIDE 40 MG TAB PO SCH ×2 (08:37→18:00)
[2022-09-15] MEDS: levETIRAcetam 500 MG TAB PO SCH ×2 (08:38→20:03)
[2022-09-15] MEDS: UMECLIDINIUM/VILANTEROL 62.5/25MCG 7 PUFFS/INHALER INH SCH (08:38)
[2022-09-15] MEDS: MULTIVITAMIN TAB PO SCH (08:38)
[2022-09-15] MEDS: CHOLECALCIFEROL 1,000 UNITS 25 MCG TAB PO SCH (08:38)
[2022-09-15] MEDS: LACTULOSE SYRUP 30 GM/45 ML UDP PO SCH ×4 (08:38→20:03)
[2022-09-15] MEDS: rifAXIMin 550 MG TABLET PO SCH ×2 (08:38→20:03)
[2022-09-15] MEDS: FERROUS SULFATE 325 MG TAB PO SCH ×2 (08:38→20:03)
[2022-09-15] MEDS: THIAMINE HCL 100 MG TAB PO SCH (08:38)
[2022-09-15] MEDS: PANTOprazole 40 MG TAB PO SCH ×2 (08:38→20:03)
[2022-09-15] MEDS: LACTULOSE 200GM/700ML WTR ENEMA PR SCH (11:35)
--- NOTE | 2022-09-15 18:37 | Billing Data ---
Date of Service September 15, 2022 Coding Level of Care Code 52525 Subseq Hosp Care Lvl 1
[2022-09-15] MEDS: MELATONIN 3 MG TAB PO SCH (20:03)
--- NOTE | 2022-09-16 07:53 | Hospitalist Progress Note ---
Date of Service September 16, 2022 Assessment & Plan (1) Acute alteration in mental status: Plan: Pt is a 71 yo male with PMH of intracranial hemorrhage, alcohol induced cirrhosis, atrial fibrillation, insomnia, gout, carotid artery stenosis, COPD, who was admitted to the hospital for altered mental status. His presentation was unchanged from previous admission. His confusion is secondary to hepatic encephalopathy with possible component of superimposed delirium. Altered Mental Status: 2/2 Hepatic Encephalopathy w/ Superimposed Hyperactive Delirium Baseline mentation - struggles with word finding but is able to communicate more fully and can perform some of his daily activities of living independently. - Know hx of alcoholic cirrhosis with previous HE - Admitted 07/22/2022 d/t hyperammonemia of 156 - CT Head (08/12) and CXR (07/22) w/o acute change - Blood cx 08/12 neg - Continue melatonin 3mg q1800 daily - Delirium precautions ongoing - Continue lactulose, rifaximin. Goal of 3-4 BMs per day - Pt with acute mental status change 09/03 - improved with adding extra dose of lactulose - rectal - reduced rectal lactulose to every other day d/t excessive loose stools +Rectal lactulose held yesterday due to excessively loose stool, resumed today - pt as baseline since adding rectal lactulose every other day Asymptomatic bacteriuria - UA collected d/t abrupt change in mental status 09/03 - UA grew >100,000 E. coli and Klebsiella - Mental status returned to baseline w/ increased dose of lactulose to decrease ammonia levels - no tx necessary at this time Hypokalemia - monitoring labs every other day - most recent K 3.4 ( 09/14) - Will check CMP tomorrow Hyperbilirubinemia - Pt with elevated bilirubin at 4.8 secondary to chronic liver disease - Lipase and LFT's are within baseline - US liver showed nonvisualization of the gallbladder and common bile duct as well as cirrhosis w/o hepatic mass - Bilirubin stable; continues to stabilize/down trend Hyponatremia - resolved Alcoholic Liver Cirrhosis - MELD 18 upon admission - Lasix 40 mg Atrial Fibrillation - Not on anticoagulation due to recent intraparenchymal hemorrhage - Episodes of irregular rhythm Hypertension - Continue home lisinopril 5 mg Hx of Intracranial Hemorrhage - Continue levetiracetam Deconditioning - PT recommends / care either at SNF or at home with home health depending on family choice - 08/17 PT noted failure to progress beyond requirement of 24 hour supervision: recommended 24 hour care, PCF, and return home - pt originally to go to [facility] 08/19 - Pending placement: per CM, insurance denied SNF. CM continuing to look for other placement. GERD - Continue Protonix COPD - Continue home inhaler (2) Alcoholic cirrhosis of liver: (3) GERD (gastroesophageal reflux disease): (4) Hypertension: (5) COPD (chronic obstructive pulmonary disease): (6) Patient unarousable: (7) Asymptomatic bacteriuria: Plan Diet:Fully alert -minced and moist; less alert -pureed DVT ppx:SCDs only d/t intracranial hemorrhage hx Dispo:pending alf placement, insurance denied SNF placement. CM awaiting to hear from [facility] among other referrals Code Status:DNR/DNI Admission and Anticipated Discharge Date Admission Date: July 23, 2022 Supervising Physician Co-Signing Physician Notes Attending attestation Pt seen and examined in concert with Dr. Claros. In agreement with the documented findings as noted in the resident documentation with any exceptions o r additions as noted here. Sitting in bed without acute complaint. VS, nursing notes reviewed. On examination, S1/S2 nl RRR no MCG. CTAB. Abd NT/ND BS+ve Hepatic encephalopathy - resolved - placement pending, CM aware. Else see resident documentation as noted. Douglas Monzon is a 71 y/o male with PMH of intracranial hemorrhage, alcohol induced cirrhosis, atrial fibrillation, insomnia, gout, carotid artery stenosis, COPD, who was admitted to the hospital for altered mental status. His presentation was unchanged from previous admission. His confusion is secondary to hepatic encephalopathy with possible component of superimposed delirium. Pt doing well this morning without any complaints. No events overnight. Review of Systems Review of Systems: Difficult to obtain, patient at baseline but only oriented to self. Physical Exam Physical Exam: Constitutional: well-appearing, no acute distress HEENT: NCAT, no conjunctival injection CV: regular rhythm, no murmur appreciated, extremities well-perfused, no LE edema Resp: CTABL, no wheezes/rales/rhonchi appreciated, no increased work of breathing GI: soft, nondistended, nontender, BS normoactive MSK: no gross deformities appreciated Skin: warm, dry, no rash appreciated Neuro: alert, oriented, no focal neurologic deficit appreciated Results & Data Results & Data ([facility]) Vital Signs (Past 12 Hours) Vital Signs Temp Pulse Pulse Resp BP Pulse Ox O2 Del Method 09/16/22 07:36 36.8 C 59 L 16 132/60 93 Room Air 09/15/22 22:09 36.6 C 71 16 136/78 95 Room Air
[2022-09-16] MEDS: rifAXIMin 550 MG TABLET PO SCH ×2 (09:04→20:26)
[2022-09-16] MEDS: FUROSEMIDE 40 MG TAB PO SCH ×2 (09:04→17:03)
[2022-09-16] MEDS: MULTIVITAMIN TAB PO SCH (09:04)
[2022-09-16] MEDS: THIAMINE HCL 100 MG TAB PO SCH (09:04)
[2022-09-16] MEDS: FERROUS SULFATE 325 MG TAB PO SCH ×2 (09:05→20:26)
[2022-09-16] MEDS: LACTULOSE SYRUP 30 GM/45 ML UDP PO SCH ×4 (09:05→20:26)
[2022-09-16] MEDS: levETIRAcetam 500 MG TAB PO SCH ×2 (09:05→20:26)
[2022-09-16] MEDS: PANTOprazole 40 MG TAB PO SCH ×2 (09:05→20:26)
[2022-09-16] MEDS: CHOLECALCIFEROL 1,000 UNITS 25 MCG TAB PO SCH (09:07)
[2022-09-16 10:37] LABS: Creatinine Clr Calc Pharmacy 66.8 ml/min; Est GFR (Non-African American) 80.2 ml/min; Potassium 3.3 mmol/L (3.5-5.1)
[2022-09-16] MEDS: UMECLIDINIUM/VILANTEROL 62.5/25MCG 7 PUFFS/INHALER INH SCH (13:20)
[2022-09-16] MEDS: MELATONIN 3 MG TAB PO SCH (20:26)
--- NOTE | 2022-09-17 07:13 | Hospitalist Progress Note ---
Date of Service September 17, 2022 Assessment & Plan (1) Acute alteration in mental status: Plan: Pt is a 71 yo male with PMH of intracranial hemorrhage, alcohol induced cirrhosis, atrial fibrillation, insomnia, gout, carotid artery stenosis, COPD, who was admitted to the hospital for altered mental status. His presentation was unchanged from previous admission. His confusion is secondary to hepatic encephalopathy with possible component of superimposed delirium. Altered Mental Status: 2/2 Hepatic Encephalopathy w/ Superimposed Hyperactive Delirium Baseline mentation - struggles with word finding but is able to communicate more fully and can perform some of his daily activities of living independently. - Know hx of alcoholic cirrhosis with previous HE - Admitted 07/22/2022 d/t hyperammonemia of 156 - CT Head (08/12) and CXR (07/22) w/o acute change - Blood cx 08/12 neg - Continue melatonin 3mg q1800 daily - Delirium precautions ongoing - Continue lactulose, rifaximin. Goal of 3-4 BMs per day - Pt with acute mental status change 09/03 - improved with adding extra dose of lactulose - rectal - reduced rectal lactulose to every other day d/t excessive loose stools +Rectal lactulose held yesterday due to excessively loose stool, resumed today - pt as baseline since adding rectal lactulose every other day Asymptomatic bacteriuria - UA collected d/t abrupt change in mental status 09/03 - UA grew >100,000 E. coli and Klebsiella - Mental status returned to baseline w/ increased dose of lactulose to decrease ammonia levels - no tx necessary at this time Hypokalemia - monitoring labs every other day - most recent K 3.2 this morning, repleted. Will check again tomorrow - consider daily supplementation if he continues to stay low Hyperbilirubinemia - Pt with elevated bilirubin at 4.8 secondary to chronic liver disease - Lipase and LFT's are within baseline - US liver showed nonvisualization of the gallbladder and common bile duct as well as cirrhosis w/o hepatic mass - Bilirubin stable; continues to stabilize/down trend Hyponatremia - resolved Alcoholic Liver Cirrhosis - MELD 18 upon admission - Lasix 40 mg Atrial Fibrillation - Not on anticoagulation due to recent intraparenchymal hemorrhage - Episodes of irregular rhythm Hypertension - Continue home lisinopril 5 mg Hx of Intracranial Hemorrhage - Continue levetiracetam Deconditioning - PT recommends 12/05 care either at SNF or at home with home health depending on family choice - 08/17 PT noted failure to progress beyond requirement of 24 hour supervision: recommended 24 hour care, PCF, and return home - pt originally to go to [facility] 08/19 - Pending placement: per CM, insurance denied SNF. CM continuing to look for other placement. GERD - Continue Protonix COPD - Continue home inhaler (2) Alcoholic cirrhosis of liver: (3) GERD (gastroesophageal reflux disease): (4) Hypertension: (5) COPD (chronic obstructive pulmonary disease): (6) Patient unarousable: (7) Asymptomatic bacteriuria: Plan Diet:Fully alert -minced and moist; less alert -pureed DVT ppx:SCDs only d/t intracranial hemorrhage hx Dispo:pending nursing home placement, insurance denied SNF placement. CM awaiting to hear from [facility] among other referrals Code Status:DNR/DNI Admission and Anticipated Discharge Date Admission Date: July 23, 2022 Supervising Physician Co-Signing Physician Notes Attending attestation Pt seen and examined in concert with Dr. Claros. In agreement with the doc umented findings as noted in the resident documentation with any exceptions or additions as noted here. Sitting in bed without acute complaint. VS, nursing notes reviewed. On examination, S1/S2 nl RRR no MCG. CTAB. Abd NT/ND BS+ve Hypokalemia - repletion and consider ongoing supplementation if this continues to be stably low. Hepatic encephalopathy - resolved - placement pending, CM aware. Else see resident documentation as noted. Douglas Monzon is a 71 y/o male with PMH of intracranial hemorrhage, alcohol induced cirrhosis, atrial fibrillation, insomnia, gout, carotid artery stenosis, COPD, who was admitted to the hospital for altered mental status. His presentation was unchanged from previous admission. His confusion is secondary to hepatic encephalopathy with possible component of superimposed delirium. Pt doing well this morning without any complaints. No events overnight. Review of Systems Review of Systems: Difficult to obtain, patient at baseline but only oriented to self. Physical Exam Physical Exam: Constitutional: well-appearing, no acute distress HEENT: NCAT, no conjunctival injection CV: regular rhythm, no murmur appreciated, extremities well-perfused, no LE edema Resp: CTABL, no wheezes/rales/rhonchi appreciated, no increased work of breathing GI: soft, nondistended, nontender, BS normoactive MSK: no gross deformities appreciated Skin: warm, dry, no rash appreciated Neuro: alert, oriented, no focal neurologic deficit appreciated Results & Data Results & Data ([facility]) Vital Signs (Past 12 Hours) Vital Signs Temp Pulse Resp BP Pulse Ox O2 Del Method 09/16/22 20:15 Room Air 09/16/22 22:08 120/64 95 Room Air 09/16/22 21:54 36.8 C 65 18 106/60 93 Room Air
[2022-09-17] MEDS: LACTULOSE SYRUP 30 GM/45 ML UDP PO SCH ×4 (08:49→20:05)
[2022-09-17] MEDS: levETIRAcetam 500 MG TAB PO SCH ×2 (08:50→20:05)
[2022-09-17] MEDS: CHOLECALCIFEROL 1,000 UNITS 25 MCG TAB PO SCH (08:50)
[2022-09-17] MEDS: PANTOprazole 40 MG TAB PO SCH ×2 (08:50→20:05)
[2022-09-17] MEDS: rifAXIMin 550 MG TABLET PO SCH ×2 (08:50→20:05)
[2022-09-17] MEDS: THIAMINE HCL 100 MG TAB PO SCH (08:50)
[2022-09-17] MEDS: FUROSEMIDE 40 MG TAB PO SCH ×2 (08:50→16:47)
[2022-09-17] MEDS: FERROUS SULFATE 325 MG TAB PO SCH ×2 (08:50→20:05)
[2022-09-17] MEDS: MULTIVITAMIN TAB PO SCH (08:50)
[2022-09-17] MEDS: UMECLIDINIUM/VILANTEROL 62.5/25MCG 7 PUFFS/INHALER INH SCH (08:50)
[2022-09-17] MEDS: LACTULOSE 200GM/700ML WTR ENEMA PR SCH (10:11)
[2022-09-17 11:19] LABS: Albumin Globulin Ratio 0.9 (0.9-2); Albumin Level 2.7 gm/dl (3.4-5.0); BUN Creatinine Ratio 18.6 (10-20); Bilirubin,Total 2.6 mg/dl (0.2-1.0); Calcium 8.1 mg/dl (8.5-10.1); Creatinine Clr Calc Pharmacy 62.3 ml/min; Est GFR (African American) 85.3 ml/min; Est GFR (Non-African American) 73.6 ml/min; Globulin 3.1 gm/dl (2.5-4.0); Potassium 3.2 mmol/L (3.5-5.1); Total Protein 5.8 gm/dl (6.0-8.3)
[2022-09-17] MEDS ORDERED: POTASSIUM CHLORIDE CRTAB 20 MEQ TABCR PO ONE (17:45)
[2022-09-17] MEDS: MELATONIN 3 MG TAB PO SCH (20:05)
[2022-09-18] MEDS ORDERED: ARTIFICIAL TEARS OP PRN (07:10)
[2022-09-18] MEDS ORDERED: ALBUTEROL HFA 8 GM INHALER INH PRN (07:10)
--- NOTE | 2022-09-18 07:15 | Hospitalist Progress Note ---
Date of Service September 18, 2022 Assessment & Plan (1) Acute alteration in mental status: Plan: Pt is a 71 yo male with PMH of intracranial hemorrhage, alcohol induced cirrhosis, atrial fibrillation, insomnia, gout, carotid artery stenosis, COPD, who was admitted to the hospital for altered mental status. His presentation was unchanged from previous admission. His confusion is secondary to hepatic encephalopathy with possible component of superimposed delirium. Altered Mental Status: 2/2 Hepatic Encephalopathy w/ Superimposed Hyperactive Delirium Baseline mentation - struggles with word finding but is able to communicate more fully and can perform some of his daily activities of living independently. - Know hx of alcoholic cirrhosis with previous HE - Admitted 07/22/2022 d/t hyperammonemia of 156 - CT Head (08/12) and CXR (07/22) w/o acute change - Blood cx 08/12 neg - Continue melatonin 3mg q1800 daily - Delirium precautions ongoing - Continue lactulose, rifaximin. Goal of 3-4 BMs per day - Pt with acute mental status change 09/03 - improved with adding extra dose of lactulose - rectal - reduced rectal lactulose to every other day d/t excessive loose stools +Rectal lactulose held yesterday due to excessively loose stool, resumed today - pt as baseline since adding rectal lactulose every other day Asymptomatic bacteriuria - UA collected d/t abrupt change in mental status 09/03 - UA grew >100,000 E. coli and Klebsiella - Mental status returned to baseline w/ increased dose of lactulose to decrease ammonia levels - no tx necessary at this time Hypokalemia - monitoring labs every other day - most recent K 3.8 this morning - consider daily supplementation if he continues to stay low Hyperbilirubinemia - Pt with elevated bilirubin at 4.8 secondary to chronic liver disease - Lipase and LFT's are within baseline - US liver showed nonvisualization of the gallbladder and common bile duct as well as cirrhosis w/o hepatic mass - Bilirubin stable; continues to stabilize/down trend Hyponatremia - resolved Alcoholic Liver Cirrhosis - MELD 18 upon admission - Lasix 40 mg Atrial Fibrillation - Not on anticoagulation due to recent intraparenchymal hemorrhage - Episodes of irregular rhythm Hypertension - Continue home lisinopril 5 mg Hx of Intracranial Hemorrhage - Continue levetiracetam Deconditioning - PT recommends / care either at SNF or at home with home health depending on family choice - 08/17 PT noted failure to progress beyond requirement of 24 hour supervision: recommended 24 hour care, PCF, and return home - pt originally to go to [facility] 08/19 - Pending placement: per CM, insurance denied SNF. CM continuing to look for other placement. GERD - Continue Protonix COPD - Continue home inhaler (2) Alcoholic cirrhosis of liver: (3) GERD (gastroesophageal reflux disease): (4) Hypertension: (5) COPD (chronic obstructive pulmonary disease): (6) Patient unarousable: (7) Asymptomatic bacteriuria: Plan Diet:Fully alert -minced and moist; less alert -pureed DVT ppx:SCDs only d/t intracranial hemorrhage hx Dispo:pending snf placement, insurance denied SNF placement. CM awaiting to hear from [facility] among other referrals Code Status:DNR/DNI Admission and Anticipated Discharge Date Admission Date: July 23, 2022 Supervising Physician Co-Signing Physician Notes Attending attestation Pt seen and examined in concert with Dr. Claros. In agreement with the documented findings as noted in the resident documentation with any exceptions or additions as noted here. Sitting in bed without acute complaint. VS, nursing notes reviewed. On examination, S1/S2 nl RRR no MCG. CTAB. Abd NT/ND BS+ve Hypokalemia - resolved Hepatic encephalopathy - resolved - placement pending, CM aware. Else see resident documentation as noted. Douglas Monzon is a 71 y/o male with PMH of intracranial hemorrhage, alcohol induced cirrhosis, atrial fibrillation, insomnia, gout, carotid artery stenosis, COPD, who was admitted to the hospital for altered mental status. His presentation was unchanged from previous admission. His confusion is secondary to hepatic encephalopathy with possible component of superimposed delirium. Pt doing well this morning without any complaints. No events overnight. Care management working to find facility. Review of Systems Review of Systems: Difficult to obtain, patient at baseline but only oriented to self. Physical Exam Physical Exam: Constitutional: well-appearing, no acute distress HEENT: NCAT, no conjunctival injection CV: regular rhythm, no murmur appreciated, extremities well-perfused, no LE edema Resp: CTABL, no wheezes/rales/rhonchi appreciated, no increased work of breathing GI: soft, nondistended, nontender, BS normoactive MSK: no gross deformities appreciated Skin: warm, dry, no rash appreciated Neuro: alert, oriented, no focal neurologic deficit appreciated Results & Data Results & Data ([facility]) Vital Signs (Past 12 Hours) Vital Signs Temp Pulse Resp BP Pulse Ox O2 Del Method 09/17/22 22:02 37.1 C 67 16 101/52 L 96 Room Air 09/17/22 19:31 Room Air
[2022-09-18] MEDS: MULTIVITAMIN TAB PO SCH ×2 (08:22→11:10)
[2022-09-18] MEDS: THIAMINE HCL 100 MG TAB PO SCH (08:22)
[2022-09-18] MEDS: UMECLIDINIUM/VILANTEROL 62.5/25MCG 7 PUFFS/INHALER INH SCH (08:22)
[2022-09-18] MEDS: LACTULOSE SYRUP 30 GM/45 ML UDP PO SCH ×4 (08:22→20:17)
[2022-09-18 10:15] LABS: Anion Gap 6 (3-11); BUN Creatinine Ratio 16.5 (10-20); Blood Urea Nitrogen 17 mg/dl (6-23); Calcium 8.2 mg/dl (8.5-10.1); Carbon Dioxide 30 mmol/L (21-32); Chloride 105 mmol/L (98-107); Creatinine Clr Calc Pharmacy 61.7 ml/min; Est GFR (African American) 84.3 ml/min; Est GFR (Non-African American) 72.7 ml/min; Glucose 109 mg/dl (70-99(Fasting)); Sodium 141 mmol/L (136-145)
[2022-09-18] MEDS: PANTOprazole 40 MG TAB PO SCH ×2 (11:10→20:16)
[2022-09-18] MEDS: FERROUS SULFATE 325 MG TAB PO SCH ×2 (11:10→20:17)
[2022-09-18] MEDS: rifAXIMin 550 MG TABLET PO SCH ×2 (11:10→20:16)
[2022-09-18] MEDS: levETIRAcetam 500 MG TAB PO SCH ×2 (11:10→20:16)
[2022-09-18] MEDS: CHOLECALCIFEROL 1,000 UNITS 25 MCG TAB PO SCH (11:10)
[2022-09-18] MEDS: FUROSEMIDE 40 MG TAB PO SCH ×2 (11:10→16:22)
[2022-09-18] MEDS: MELATONIN 3 MG TAB PO SCH (20:16)
--- NOTE | 2022-09-19 07:07 | Hospitalist Progress Note ---
Date of Service September 19, 2022 Assessment & Plan (1) Acute alteration in mental status: Plan: Pt is a 71 yo male with PMH of intracranial hemorrhage, alcohol induced cirrhosis, atrial fibrillation, insomnia, gout, carotid artery stenosis, COPD, who was admitted to the hospital for altered mental status. His presentation was unchanged from previous admission. His confusion is secondary to hepatic encephalopathy with possible component of superimposed delirium. Altered Mental Status: 2/2 Hepatic Encephalopathy w/ Superimposed Hyperactive Delirium Baseline mentation - struggles with word finding but is able to communicate more fully and can perform some of his daily activities of living independently. - Know hx of alcoholic cirrhosis with previous HE - Admitted 07/22/2022 d/t hyperammonemia of 156 - CT Head (08/12) and CXR (07/22) w/o acute change - Blood cx 08/12 neg - Continue melatonin 3mg q1800 daily - Delirium precautions ongoing - Continue lactulose, rifaximin. Goal of 3-4 BMs per day - Pt with acute mental status change likely secondary to hyperactive delirium - still having consistent BM, ammonia continues to trend down - Had dose of Zyprexa and one dose of haloperidol with some improvement - one to one ordered Asymptomatic bacteriuria - UA collected d/t abrupt change in mental status 09/03 - UA grew >100,000 E. coli and Klebsiella - Mental status returned to baseline w/ increased dose of lactulose to decrease ammonia levels - no tx necessary at this time Hypokalemia - monitoring labs every other day - most recent K 3.8 this yesterday; will check tomorrow morning and Mg - consider daily supplementation if he continues to stay low Hyperbilirubinemia - Pt with elevated bilirubin at 4.8 secondary to chronic liver disease - Lipase and LFT's are within baseline - US liver showed nonvisualization of the gallbladder and common bile duct as well as cirrhosis w/o hepatic mass - Bilirubin stable; continues to stabilize/down trend Hyponatremia - resolved Alcoholic Liver Cirrhosis - MELD 18 upon admission - Lasix 40 mg Atrial Fibrillation - Not on anticoagulation due to recent intraparenchymal hemorrhage - Episodes of irregular rhythm Hypertension - Continue home lisinopril 5 mg Hx of Intracranial Hemorrhage - Continue levetiracetam Deconditioning - PT recommends 24/7 care either at SNF or at home with home health depending on family choice - 08/17 PT noted failure to progress beyond requirement of 24 hour supervision: recommended 24 hour care, PCF, and return home - pt originally to go to [facility] 08/19 - Pending placement: per CM, insurance denied SNF. CM continuing to look for other placement. GERD - Continue Protonix COPD - Continue home inhaler (2) Alcoholic cirrhosis of liver: (3) GERD (gastroesophageal reflux disease): (4) Hypertension: (5) COPD (chronic obstructive pulmonary disease): (6) Patient unarousable: (7) Asymptomatic bacteriuria: Plan Diet:Fully alert -minced and moist; less alert -pureed DVT ppx:SCDs only d/t intracranial hemorrhage hx Dispo:pending senior care placement, insurance denied SNF placement. CM awaiting to hear from [place] and [facility] among other referrals Code Status:DNR/DNI Admission and Anticipated Discharge Date Admission Date: July 23, 2022 Supervising Physician Co-Signing Physician Notes Attending attestation Pt seen and examined in concert with Dr. Claros. In agreement with the documented findings as noted in the resident documentation with any exceptions or additions as noted here. Agitated in bed at time of examination, wanting to leave but unfocused and unable to reorient. No pain or acute complaint on ROS. VS, nursing notes reviewed. On examination, S1/S2 nl RRR no MCG. CTAB. Abd NT/ND BS+ve. Per nursing, regular loose BM. Hyperactive delirium - likely multifactorial in the setting of prolonged hospitalization, hepatic encephalopathy - ammonia level as noted w/ appropriate response to lactulose/rifaximin per nursing. Improved agitation with zyprexa and haldol. Monitor closely, reorientation, sleep consolidation Else see resident documentation as noted. Douglas Monzon is a 71 y/o male with PMH of intracranial hemorrhage, alcohol induced cirrhosis, atrial fibrillation, insomnia, gout, carotid artery stenosis, COPD, who was admitted to the hospital for altered mental status. His presentation was unchanged from previous admission. His confusion is secondary to hepatic encephalopathy with possible component of superimposed delirium. Pt has increased agitation/confusion this morning. Still having consistent bowel movements. Review of Systems Review of Systems: Difficult to obtain, patient at baseline but only oriented to self. Physical Exam Physical Exam: Constitutional: well-appearing, no acute distress HEENT: NCAT, no conjunctival injection CV: regular rhythm, no murmur appreciated, extremities well-perfused, no LE edema Resp: CTABL, no wheezes/rales/rhonchi appreciated, no increased work of breathing GI: soft, nondistended, nontender, BS normoactive MSK: no gross deformities appreciated Skin: warm, dry, no rash appreciated Neuro: alert, oriented, no focal neurologic deficit appreciated Results & Data Results & Data ([facility]) Vital Signs (Past 12 Hours) Vital Signs Temp Pulse Resp BP Pulse Ox O2 Del Method 09/18/22 23:38 36.7 C 61 18 121/71 94 Room Air 09/18/22 19:27 Room Air
[2022-09-19] MEDS ORDERED: OLANZapine 10 MG/2.1 ML SDV IM STA (07:37)
[2022-09-19] MEDS: levETIRAcetam 500 MG TAB PO SCH ×2 (09:12→22:33)
[2022-09-19] MEDS: rifAXIMin 550 MG TABLET PO SCH ×2 (09:12→22:33)
[2022-09-19] MEDS: FERROUS SULFATE 325 MG TAB PO SCH ×2 (09:12→22:33)
[2022-09-19] MEDS: MULTIVITAMIN TAB PO SCH (09:12)
[2022-09-19] MEDS: LACTULOSE SYRUP 30 GM/45 ML UDP PO SCH ×4 (09:12→22:34)
[2022-09-19] MEDS: THIAMINE HCL 100 MG TAB PO SCH (09:12)
[2022-09-19] MEDS: PANTOprazole 40 MG TAB PO SCH ×2 (09:12→22:33)
[2022-09-19] MEDS: CHOLECALCIFEROL 1,000 UNITS 25 MCG TAB PO SCH (09:12)
[2022-09-19] MEDS: UMECLIDINIUM/VILANTEROL 62.5/25MCG 7 PUFFS/INHALER INH SCH (09:13)
[2022-09-19] MEDS: FUROSEMIDE 40 MG TAB PO SCH ×2 (09:13→18:34)
[2022-09-19] MEDS ORDERED: HALOPERIDOL LACTATE 5 MG/ML 1 ML VIAL IM STA (10:04)
[2022-09-19] MEDS: LACTULOSE 200GM/700ML WTR ENEMA PR SCH (16:49)
[2022-09-19] MEDS: MELATONIN 3 MG TAB PO SCH (22:33)
--- NOTE | 2022-09-20 07:14 | Hospitalist Progress Note ---
Date of Service September 20, 2022 Assessment & Plan (1) Acute alteration in mental status: Plan: Pt is a 71 yo male with PMH of intracranial hemorrhage, alcohol induced cirrhosis, atrial fibrillation, insomnia, gout, carotid artery stenosis, COPD, who was admitted to the hospital for altered mental status. His presentation was unchanged from previous admission. His confusion is secondary to hepatic encephalopathy with possible component of superimposed delirium. Altered Mental Status: 2/2 Hepatic Encephalopathy w/ Superimposed Hyperactive Delirium Baseline mentation - struggles with word finding but is able to communicate more fully and can perform some of his daily activities of living independently. - Know hx of alcoholic cirrhosis with previous HE - Admitted 07/22/2022 d/t hyperammonemia of 156 - CT Head (08/12) and CXR (07/22) w/o acute change - Blood cx 08/12 neg - Continue melatonin 3mg q1800 daily - Delirium precautions ongoing - Continue lactulose, rifaximin. Goal of 3-4 BMs per day - Pt with acute mental status change likely secondary to hyperactive delirium - still having consistent BM, ammonia continues to trend down - Had dose of Zyprexa and one dose of haloperidol yesterday - one to one ordered - will check UA - consult psych; would appreciate recs for prn or scheduled mediation if mental status does not improve. Would consider atypical antipsychotic, such as Seroquel. Hypokalemia - monitoring labs every other day: will check again tomorrow - likely secondary to lasix, lisinopril - will start daily potassium supplementation Hyperbilirubinemia - Pt with elevated bilirubin at 4.8 secondary to chronic liver disease - Lipase and LFT's are within baseline - US liver showed nonvisualization of the gallbladder and common bile duct as well as cirrhosis w/o hepatic mass - Bilirubin stable; continues to stabilize/down trend Hyponatremia - resolved Alcoholic Liver Cirrhosis - MELD 18 upon admission - Lasix 40 mg Atrial Fibrillation - Not on anticoagulation due to recent intraparenchymal hemorrhage - Episodes of irregular rhythm Hypertension - Continue home lisinopril 5 mg Hx of Intracranial Hemorrhage - Continue levetiracetam Deconditioning - PT recommends 24/7 care either at SNF or at home with home health depending on family choice - 08/17 PT noted failure to progress beyond requirement of 24 hour supervision: recommended 24 hour care, PCF, and return home - pt originally to go to [facility] 08/19 - Pending placement: per CM, insurance denied SNF. CM continuing to look for other placement. GERD - Continue Protonix COPD - Continue home inhaler (2) Alcoholic cirrhosis of liver: (3) GERD (gastroesophageal reflux disease): (4) Hypertension: (5) COPD (chronic obstructive pulmonary disease): (6) Patient unarousable: (7) Asymptomatic bacteriuria: Plan Diet:Fully alert -minced and moist; less alert -pureed DVT ppx:SCDs only d/t intracranial hemorrhage hx Dispo:pending group home placement, insurance denied SNF placement. CM awaiting to hear from [place] and [facility] among other referrals Code Status:DNR/DNI Admission and Anticipated Discharge Date Admission Date: July 23, 2022 Supervising Physician Co-Signing Physician Notes Attending attestation I also saw the patient with the resident physician. I agree with the impression plan as noted in the resident documentation. Upon our morning examination, the patient is somewhat agitated, mostly verbal and he does respond somewhat to reorientation/redirection. Exam 136/72, 75, 20, 36.5, 96% room air Agitated -mostly verbal, some weak attempts to get out of bed although he is unable to do so Remainder exam is limited due to condition Data Sodium 146, potassium 3.7, BUN 16, creatinine 0.98 Calcium 8.4, magnesium 1.9, total bilirubin 3.4, AST 40, ALT 16, alkaline phosphatase 126 Ammonia level (09/19/2022) 85 Impression and plan Hyperactive delirium likely multifactorial in the setting of prolonged hospitalization. Psychiatry consult appreciated Start with low and Seroquel dosing, increase if needed Continue one-to-one Additional per resident documentation Douglas Monzon is a 71 y/o male with PMH of intracranial hemorrhage, alcohol induced cirrhosis, atrial fibrillation, insomnia, gout, carotid artery stenosis, COPD, who was admitted to the hospital for altered mental status. His presentation was unchanged from previous admission. His confusion is secondary to hepatic encephalopathy with possible component of superimposed delirium. Pt continues to have hyperactive delirium. Nursing states that he was better o kehinde night, and woke up this morning and was again delirious and aggressive similar to yesterday morning. He has been taking consistent bowel movements. Review of Systems Review of Systems: Difficult to obtain, patient at baseline but only oriented to self. Physical Exam Physical Exam: Constitutional: well-appearing, no acute distress HEENT: NCAT, no conjunctival injection CV: regular rhythm, no murmur appreciated, extremities well-perfused, no LE edema Resp: CTABL, no wheezes/rales/rhonchi appreciated, no increased work of breathing GI: soft, nondistended, nontender, BS normoactive MSK: no gross deformities appreciated Skin: warm, dry, no rash appreciated Neuro: alert, oriented, no focal neurologic deficit appreciated Results & Data Results & Data ([facility]) Vital Signs (Past 12 Hours) Vital Signs Temp Pulse Resp BP Pulse Ox O2 Del Method 09/19/22 22:39 36.9 C 67 16 128/61 94 Room Air Resident Activity Tracking Resident Involvement: Resident Care Provided Care Provided: Adult Hospital Medicine
[2022-09-20] MEDS: levETIRAcetam 500 MG TAB PO SCH ×2 (08:58→19:39)
[2022-09-20] MEDS: FERROUS SULFATE 325 MG TAB PO SCH ×2 (08:58→19:39)
[2022-09-20] MEDS: CHOLECALCIFEROL 1,000 UNITS 25 MCG TAB PO SCH (08:58)
[2022-09-20] MEDS: rifAXIMin 550 MG TABLET PO SCH ×2 (08:59→19:41)
[2022-09-20] MEDS: FUROSEMIDE 40 MG TAB PO SCH ×2 (08:59→17:23)
[2022-09-20] MEDS: LACTULOSE SYRUP 30 GM/45 ML UDP PO SCH ×4 (08:59→19:40)
[2022-09-20] MEDS: THIAMINE HCL 100 MG TAB PO SCH (08:59)
[2022-09-20] MEDS: PANTOprazole 40 MG TAB PO SCH ×2 (08:59→19:40)
[2022-09-20] MEDS: UMECLIDINIUM/VILANTEROL 62.5/25MCG 7 PUFFS/INHALER INH SCH (08:59)
[2022-09-20] MEDS: MULTIVITAMIN TAB PO SCH (08:59)
[2022-09-20 09:26] LABS: Albumin Globulin Ratio 0.9 (0.9-2); Albumin Level 2.8 gm/dl (3.4-5.0); BUN Creatinine Ratio 16.3 (10-20); Bilirubin,Total 3.4 mg/dl (0.2-1.0); Calcium 8.4 mg/dl (8.5-10.1); Creatinine Clr Calc Pharmacy 64.8 ml/min; Est GFR (African American) 89.5 ml/min; Est GFR (Non-African American) 77.3 ml/min; Globulin 3.2 gm/dl (2.5-4.0); Magnesium 1.9 mg/dl (1.7-2.4); Potassium 3.7 mmol/L (3.5-5.1)
[2022-09-20] MEDS: POTASSIUM CHLORIDE 10 MEQ TABCR PO SCH (13:34)
[2022-09-20 14:06] LABS: Appearance Urine Clear (Clear); Bilirubin Urine Negative (Negative); Blood Urine Negative (Negative); Color Urine Yellow; Glucose Urine UA Negative (Negative); Ketones Urine Negative (Negative); Leukocyte Esterase Urine Negative (Negative); Nitrite Urine Negative (Negative); Protein Urine Negative (Negative); Specific Gravity Urine 1.009 (1.000-1.030); Urobilinogen Urine Negative (Negative)
--- NOTE | 2022-09-20 16:03 | Psychiatric Consultation ---
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 Documented By: Admin: 09/08/22 20:01 Dose: 30 gm Documented By: Admin: 09/08/22 16:24 Dose: 30 gm Documented By: CAAugustina Admin: 09/08/22 12:45 Dose: 30 gm Documented By: CAAugustina Admin: 09/08/22 09:16 Dose: 30 gm Documented By: Admin: 09/07/22 20:14 Dose: 30 gm Documented By: Admin: 09/07/22 17:18 Dose: 30 gm Documented By: CAAugustina Admin: 09/07/22 12:46 Dose: 30 gm Documented By: Admin: 09/07/22 09:52 Dose: 30 gm Documented By: Admin: 09/06/22 20:27 Dose: 30 gm Documented By: Admin: 09/06/22 17:29 Dose: 30 gm Documented By: CAAugustina Admin: 09/06/22 14:06 Dose: 30 gm Documented By: CAAugustina Admin: 09/06/22 08:53 Dose: 30 gm Documented By: CAAugustina Admin: 09/05/22 20:33 Dose: 30 gm Documented By: Admin: 09/05/22 16:58 Dose: 30 gm Documented By: Admin: 09/05/22 12:47 Dose: 30 gm Documented By: Admin: 09/05/22 08:40 Dose: 30 gm Documented By: Admin: 09/04/22 20:00 Dose: 30 gm Documented By: Admin: 09/04/22 17:44 Dose: 30 gm Documented By: Admin: 09/04/22 14:00 Dose: 30 gm Documented By: Admin: 09/04/22 09:36 Dose: 30 gm Documented By: Admin: 09/03/22 21:25 Dose: 30 gm Documented By: Admin: 09/03/22 18:02 Dose: 30 gm Documented By: Admin: 09/03/22 12:52 Dose: 30 gm Documented By: Admin: 09/03/22 08:20 Dose: 30 gm Documented By: Admin: 09/02/22 20:08 Dose: 30 gm Documented By: Admin: 09/02/22 17:10 Dose: 30 gm Documented By: Admin: 09/02/22 14:18 Dose: 30 gm Documented By: Admin: 09/02/22 08:51 Dose: 30 gm Documented By: Admin: 09/01/22 20:23 Dose: 30 gm Documented By: Admin: 09/01/22 16:33 Dose: 30 gm Documented By: Admin: 09/01/22 12:39 Dose: 30 gm Documented By: Admin: 09/01/22 08:43 Dose: 30 gm Documented By: Admin: 08/31/22 20:35 Dose: 30 gm Documented By: Admin: 08/31/22 17:13 Dose: 30 gm Documented By: Admin: 08/31/22 14:00 Dose: 30 gm Documented By: Admin: 08/31/22 08:42 Dose: 30 gm Documented By: Admin: 08/30/22 20:29 Dose: 30 gm Documented By: Admin: 08/30/22 16:20 Dose: 30 gm Documented By: Admin: 08/30/22 12:41 Dose: 30 gm Documented By: Admin: 08/30/22 08:16 Dose: 30 gm Documented By: Admin: 08/29/22 20:01 Dose: 30 gm Documented By: Admin: 08/29/22 17:19 Dose: 30 gm Documented By: Admin: 08/29/22 12:56 Dose: 30 gm Documented By: Admin: 08/29/22 08:44 Dose: 30 gm Documented By: Admin: 08/28/22 19:45 Dose: 30 gm Documented By: Admin: 08/28/22 17:21 Dose: 30 gm Documented By: Admin: 08/28/22 13:34 Dose: 30 gm Documented By: Admin: 08/28/22 08:50 Dose: 30 gm Documented By: Admin: 08/27/22 19:35 Dose: 30 gm Documented By: Admin: 08/27/22 18:18 Dose: 30 gm Documented By: Admin: 08/27/22 13:48 Dose: 30 gm Documented By: Admin: 08/27/22 09:54 Dose: 30 gm Documented By: Admin: 08/26/22 20:37 Dose: 30 gm Documented By: Admin: 08/26/22 17:08 Dose: 30 gm Documented By: [id number] Admin: 08/26/22 12:34 Dose: 30 gm Documented By: [id number] Admin: 08/26/22 08:16 Dose: 30 gm Documented By: [id number] Admin: 08/25/22 21:25 Dose: 30 gm Documented By: Admin: 08/25/22 17:46 Dose: 30 gm Documented By: [id number] Admin: 08/25/22 12:59 Dose: 30 gm Documented By: [id number] Admin: 08/25/22 08:24 Dose: 30 gm Documented By: [id number] Admin: 08/24/22 20:38 Dose: 30 gm Documented By: Admin: 08/24/22 17:40 Dose: 30 gm Documented By: Admin: 08/24/22 13:16 Dose: 30 gm Documented By: Admin: 08/24/22 09:18 Dose: 30 gm Documented By: Admin: 08/23/22 19:31 Dose: 30 gm Documented By: Admin: 08/23/22 17:35 Dose: 30 gm Documented By: Admin: 08/23/22 15:30 Dose: 30 gm Documented By: Admin: 08/23/22 08:53 Dose: 30 gm Documented By: Admin: 08/22/22 20:40 Dose: 30 gm Documented By: Admin: 08/22/22 18:30 Dose: 30 gm Documented By: Admin: 08/22/22 14:27 Dose: 30 gm Documented By: Admin: 08/22/22 11:01 Dose: 30 gm Documented By: Admin: 08/21/22 20:34 Dose: 30 gm Documented By: Admin: 08/21/22 17:38 Dose: 30 gm Documented By: Admin: 08/21/22 12:52 Dose: 30 gm Documented By: Admin: 08/21/22 09:48 Dose: 30 gm Documented By: Admin: 08/20/22 20:02 Dose: 30 gm Documented By: Admin: 08/20/22 17:04 Dose: 30 gm Documented By: [email or web address] Admin: 08/20/22 13:25 Dose: 30 gm Documented By: Admin: 08/20/22 09:47 Dose: 30 gm Documented By: Admin: 08/19/22 21:32 Dose: 30 gm Documented By: Admin: 08/19/22 17:37 Dose: 30 gm Documented By: Admin: 08/19/22 13:29 Dose: 30 gm Documented By: Admin: 08/19/22 09:02 Dose: 30 gm Documented By: Admin: 08/18/22 20:06 Dose: 30 gm Documented By: Admin: 08/18/22 17:08 Dose: 30 gm Documented By: Admin: 08/18/22 13:21 Dose: 30 gm Documented By: Admin: 08/18/22 08:40 Dose: 30 gm Documented By: Admin: 08/17/22 21:09 Dose: 30 gm Documented By: Admin: 08/17/22 17:03 Dose: 30 gm Documented By: Admin: 08/17/22 13:12 Dose: Not Given Documented By: Admin: 08/17/22 08:22 Dose: 30 gm Documented By: Admin: 08/16/22 20:32 Dose: 30 gm Documented By: Admin: 08/16/22 17:00 Dose: 30 gm Documented By: SMM(2) Admin: 08/16/22 12:15 Dose: 30 gm Documented By: SMM(2) Admin: 08/16/22 08:32 Dose: 30 gm Documented By: SMM(2) Admin: 08/15/22 22:15 Dose: 30 gm Documented By: Admin: 08/15/22 16:41 Dose: 30 gm Documented By: Admin: 08/15/22 13:16 Dose: 30 gm Documented By: Admin: 08/15/22 09:00 Dose: 30 gm Documented By: Admin: 08/14/22 23:23 Dose: 30 gm Documented By: Admin: 08/14/22 17:39 Dose: 30 gm Documented By: Admin: 08/14/22 12:54 Dose: 30 gm Documented By: Admin: 08/14/22 09:21 Dose: 30 gm Documented By: Admin: 08/13/22 22:13 Dose: 30 gm Documented By: Admin: 08/13/22 16:52 Dose: 30 gm Documented By: Admin: 08/13/22 12:29 Dose: 30 gm Documented By: Admin: 08/13/22 10:27 Dose: 30 gm Documented By: Admin: 08/12/22 21:37 Dose: 30 gm Documented By: Admin: 08/12/22 17:48 Dose: 30 gm Documented By: Admin: 08/12/22 14:24 Dose: Not Given Documented By: Admin: 08/12/22 12:16 Dose: Not Given Documented By: Admin: 08/11/22 20:36 Dose: 30 gm Documented By: Admin: 08/11/22 17:37 Dose: 30 gm Documented By: Admin: 08/11/22 13:41 Dose: 30 gm Documented By: Admin: 08/11/22 09:19 Dose: 30 gm Documented By: Admin: 08/10/22 20:11 Dose: 30 gm Documented By: Admin: 08/10/22 15:59 Dose: 30 gm Documented By: Admin: 08/10/22 12:42 Dose: 30 gm Documented By: Admin: 08/10/22 07:42 Dose: 30 gm Documented By: Admin: 08/09/22 20:14 Dose: 30 gm Documented By: Admin: 08/09/22 18:05 Dose: 30 gm Documented By: Admin: 08/09/22 14:02 Dose: 30 gm Documented By: Admin: 08/09/22 09:36 Dose: 30 gm Documented By: Admin: 08/08/22 20:43 Dose: 30 gm Documented By: [email or web address] Admin: 08/08/22 17:41 Dose: 30 gm Documented By: CLAYTON(2) Admin: 08/08/22 13:04 Dose: 30 gm Documented By: KS(2) Admin: 08/08/22 08:45 Dose: 30 gm Documented By: KS(2) Admin: 08/07/22 20:49 Dose: 30 gm Documented By: Admin: 08/07/22 17:33 Dose: 30 gm Documented By: KS(2) Admin: 08/07/22 13:17 Dose: 30 gm Documented By: KS(2) Admin: 08/07/22 08:49 Dose: 30 gm Documented By: KS(2) Admin: 08/06/22 20:43 Dose: 30 gm Documented By: Admin: 08/06/22 17:48 Dose: 30 gm Documented By: CLAYTON(2) Admin: 08/06/22 13:25 Dose: 30 gm Documented By: CLAYTON(2) Admin: 08/06/22 09:01 Dose: 30 gm Documented By: CLAYTON(2) Admin: 08/05/22 19:56 Dose: 30 gm Documented By: Admin: 08/05/22 17:36 Dose: 30 gm Documented By: Admin: 08/05/22 12:24 Dose: 30 gm Documented By: Admin: 08/05/22 07:48 Dose: 30 gm Documented By: Admin: 08/04/22 20:08 Dose: 30 gm Documented By: Admin: 08/04/22 17:21 Dose: 30 gm Documented By: [id number] Admin: 08/04/22 12:49 Dose: 30 gm Documented By: [id number] Admin: 08/04/22 08:24 Dose: 30 gm Documented By: [id number] Admin: 08/03/22 19:57 Dose: 30 gm Documented By: Admin: 08/03/22 17:20 Dose: 30 gm Documented By: [id number] Admin: 08/03/22 12:49 Dose: 30 gm Documented By: [id number] Admin: 08/03/22 08:03 Dose: 30 gm Documented By: [id number] Admin: 08/02/22 20:40 Dose: 30 gm Documented By: Admin: 08/02/22 16:30 Dose: 30 gm Documented By: [id number] Admin: 08/02/22 12:38 Dose: 30 gm Documented By: [id number] Admin: 08/02/22 08:11 Dose: 30 gm Documented By: [id number] Admin: 08/01/22 19:46 Dose: 30 gm Documented By: Admin: 08/01/22 17:02 Dose: 30 gm Documented By: [id number] Admin: 08/01/22 13:49 Dose: 30 gm Documented By: [id number] Admin: 08/01/22 08:38 Dose: 30 gm Documented By: [id number] Admin: 07/31/22 19:43 Dose: 30 gm Documented By: Admin: 07/31/22 17:37 Dose: 30 gm Documented By: Admin: 07/31/22 12:36 Dose: 30 gm Documented By: Admin: 07/31/22 08:17 Dose: 30 gm Documented By: Admin: 07/30/22 20:53 Dose: Not Given Documented By: Admin: 07/30/22 16:31 Dose: 30 gm Documented By: Admin: 07/30/22 12:42 Dose: 30 gm Documented By: Admin: 07/30/22 09:20 Dose: 30 gm Documented By: Admin: 07/29/22 20:11 Dose: 30 gm Documented By: Admin: 07/29/22 17:03 Dose: 30 gm Documented By: Admin: 07/29/22 12:24 Dose: 30 gm Documented By: Admin: 07/29/22 08:17 Dose: 30 gm Documented By: Admin: 07/28/22 20:33 Dose: 30 gm Documented By: Admin: 07/28/22 17:42 Dose: 30 gm Documented By: Admin: 07/28/22 12:01 Dose: 30 gm Documented By: Admin: 07/28/22 07:46 Dose: 30 gm Documented By: GEG Lactulose (Lactulose 200gm/700ml Wtr Enema) 200 gm NE Q2D DAVEY Stop: 10/15/22 10:14 Last Admin: 09/19/22 16:49 Dose: Not Given Documented By: Admin: 09/17/22 10:11 Dose: Not Given Documented By: Admin: 09/15/22 11:35 Dose: 200 gm Documented By: [email or web address] Levetiracetam (Levetiracetam 500 Mg Tab) 500 mg PO Q12H DAVEY Stop: 10/18/22 08:59 Last Admin: 09/20/22 08:58 Dose: 500 mg Documented By: Admin: 09/19/22 22:33 Dose: 500 mg Documented By: Admin: 09/19/22 09:12 Dose: 500 mg Documented By: Admin: 09/18/22 20:16 Dose: 500 mg Documented By: Admin: 09/18/22 11:10 Dose: 500 mg Documented By: Admin: 09/17/22 20:05 Dose: 500 mg Documented By: Admin: 09/17/22 08:50 Dose: 500 mg Documented By: Admin: 09/16/22 20:26 Dose: 500 mg Documented By: Admin: 09/16/22 09:05 Dose: 500 mg Documented By: Admin: 09/15/22 20:03 Dose: 500 mg Documented By: Admin: 09/15/22 08:38 Dose: 500 mg Documented By: Admin: 09/14/22 20:27 Dose: 500 mg Documented By: Admin: 09/14/22 08:12 Dose: 500 mg Documented By: Admin: 09/13/22 20:11 Dose: 500 mg Documented By: Admin: 09/13/22 10:48 Dose: 500 mg Documented By: Admin: 09/12/22 20:01 Dose: 500 mg Documented By: Admin: 09/12/22 08:05 Dose: 500 mg Documented By: Admin: 09/11/22 21:13 Dose: 500 mg Documented By: Admin: 09/11/22 08:06 Dose: 500 mg Documented By: Admin: 09/10/22 20:30 Dose: 500 mg Documented By: Admin: 09/10/22 08:28 Dose: 500 mg Documented By: Admin: 09/09/22 20:37 Dose: 500 mg Documented By: Admin: 09/09/22 09:40 Dose: 500 mg Documented By: Admin: 09/08/22 20:01 Dose: 500 mg Documented By: Admin: 09/08/22 09:17 Dose: 500 mg Documented By: Admin: 09/07/22 20:14 Dose: 500 mg Documented By: Admin: 09/07/22 09:50 Dose: 500 mg Documented By: Admin: 09/06/22 20:28 Dose: 500 mg Documented By: Admin: 09/06/22 08:53 Dose: 500 mg Documented By: Admin: 09/05/22 20:35 Dose: 500 mg Documented By: Admin: 09/05/22 08:43 Dose: 500 mg Documented By: Admin: 09/04/22 20:02 Dose: 500 mg Documented By: Admin: 09/04/22 09:34 Dose: 500 mg Documented By: Admin: 09/03/22 21:26 Dose: 500 mg Documented By: Admin: 09/03/22 08:18 Dose: 500 mg Documented By: Admin: 09/02/22 20:08 Dose: 500 mg Documented By: Admin: 09/02/22 08:51 Dose: 500 mg Documented By: Admin: 09/01/22 20:24 Dose: 500 mg Documented By: Admin: 09/01/22 08:30 Dose: 500 mg Documented By: Admin: 08/31/22 20:36 Dose: 500 mg Documented By: Admin: 08/31/22 08:19 Dose: 500 mg Documented By: Admin: 08/30/22 20:28 Dose: 500 mg Documented By: Admin: 08/30/22 08:16 Dose: 500 mg Documented By: Admin: 08/29/22 20:00 Dose: 500 mg Documented By: Admin: 08/29/22 08:40 Dose: 500 mg Documented By: Admin: 08/28/22 19:45 Dose: 500 mg Documented By: Admin: 08/28/22 08:48 Dose: 500 mg Documented By: Admin: 08/27/22 19:33 Dose: 500 mg Documented By: Admin: 08/27/22 09:55 Dose: 500 mg Documented By: Admin: 08/26/22 20:36 Dose: 500 mg Documented By: Admin: 08/26/22 08:13 Dose: 500 mg Documented By: [id number] Admin: 08/25/22 21:24 Dose: 500 mg Documented By: Admin: 08/25/22 08:21 Dose: 500 mg Documented By: [id number] Admin: 08/24/22 20:37 Dose: 500 mg Documented By: Admin: 08/24/22 09:17 Dose: 500 mg Documented By: Admin: 08/23/22 19:30 Dose: 500 mg Documented By: Admin: 08/23/22 09:01 Dose: 500 mg Documented By: Admin: 08/22/22 20:41 Dose: 500 mg Documented By: Admin: 08/22/22 11:05 Dose: 500 mg Documented By: Admin: 08/21/22 20:30 Dose: 500 mg Documented By: Admin: 08/21/22 09:49 Dose: 500 mg Documented By: Admin: 08/20/22 20:02 Dose: 500 mg Documented By: Admin: 08/20/22 09:47 Dose: 500 mg Documented By: Admin: 08/19/22 21:33 Dose: 500 mg Documented By: Admin: 08/19/22 09:02 Dose: 500 mg Documented By: Admin: 08/18/22 20:06 Dose: 500 mg Documented By: Admin: 08/18/22 08:42 Dose: 500 mg Documented By: Admin: 08/17/22 21:09 Dose: 500 mg Documented By: Admin: 08/17/22 08:21 Dose: 500 mg Documented By: Admin: 08/16/22 20:31 Dose: 500 mg Documented By: Admin: 08/16/22 08:32 Dose: 500 mg Documented By: SMM(2) Admin: 08/15/22 22:14 Dose: 500 mg Documented By: Admin: 08/15/22 09:02 Dose: 500 mg Documented By: Admin: 08/14/22 23:22 Dose: 500 mg Documented By: Admin: 08/14/22 09:19 Dose: 500 mg Documented By: Admin: 08/13/22 22:14 Dose: 500 mg Documented By: Admin: 08/13/22 10:26 Dose: 500 mg Documented By: Admin: 08/12/22 22:16 Dose: 500 mg Documented By: Admin: 08/12/22 12:17 Dose: Not Given Documented By: Admin: 08/11/22 20:38 Dose: 500 mg Documented By: Admin: 08/11/22 09:18 Dose: 500 mg Documented By: Admin: 08/10/22 20:11 Dose: 500 mg Documented By: Admin: 08/10/22 07:40 Dose: 500 mg Documented By: Admin: 08/09/22 20:14 Dose: 500 mg Documented By: Admin: 08/09/22 09:37 Dose: 500 mg Documented By: Admin: 08/08/22 20:44 Dose: 500 mg Documented By: Admin: 08/08/22 08:45 Dose: 500 mg Documented By: KS(2) Admin: 08/07/22 20:51 Dose: 500 mg Documented By: Admin: 08/07/22 08:48 Dose: 500 mg Documented By: KS(2) Admin: 08/06/22 20:42 Dose: 500 mg Documented By: Admin: 08/06/22 09:01 Dose: 500 mg Documented By: CLAYTON(2) Admin: 08/05/22 19:57 Dose: 500 mg Documented By: Admin: 08/05/22 07:47 Dose: 500 mg Documented By: Admin: 08/04/22 20:08 Dose: 500 mg Documented By: Admin: 08/04/22 08:25 Dose: 500 mg Documented By: [id number] Admin: 08/03/22 19:55 Dose: 500 mg Documented By: Admin: 08/03/22 08:03 Dose: 500 mg Documented By: [id number] Admin: 08/02/22 20:40 Dose: 500 mg Documented By: Admin: 08/02/22 08:11 Dose: 500 mg Documented By: [id number] Admin: 08/01/22 19:46 Dose: 500 mg Documented By: Admin: 08/01/22 08:37 Dose: 500 mg Documented By: [id number] Admin: 07/31/22 19:43 Dose: 500 mg Documented By: Admin: 07/31/22 08:16 Dose: 500 mg Documented By: Admin: 07/30/22 21:01 Dose: 500 mg Documented By: Admin: 07/30/22 09:19 Dose: 500 mg Documented By: Admin: 07/29/22 20:11 Dose: 500 mg Documented By: Admin: 07/29/22 08:17 Dose: 500 mg Documented By: Admin: 07/28/22 20:33 Dose: 500 mg Documented By: Admin: 07/28/22 07:42 Dose: 500 mg Documented By: Admin: 07/27/22 20:42 Dose: 500 mg Documented By: Admin: 07/27/22 09:19 Dose: 500 mg Documented By: Admin: 07/26/22 20:38 Dose: 500 mg Documented By: Admin: 07/26/22 08:16 Dose: 500 mg Documented By: Admin: 07/25/22 20:16 Dose: 500 mg Documented By: Admin: 07/25/22 07:46 Dose: 500 mg Documented By: CLAYTON(3) Admin: 07/24/22 20:34 Dose: 500 mg Documented By: Admin: 07/24/22 07:55 Dose: 500 mg Documented By: Admin: 07/23/22 19:31 Dose: 500 mg Documented By: Admin: 07/23/22 07:56 Dose: 500 mg Documented By: CLAYTON(3) Melatonin (Melatonin 3 Mg Tab) 3 mg PO HS DAVEY Stop: 10/14/22 20:59 Last Admin: 09/19/22 22:33 Dose: 3 mg Documented By: Admin: 09/18/22 20:16 Dose: 3 mg Documented By: Admin: 09/17/22 20:05 Dose: 3 mg Documented By: Admin: 09/16/22 20:26 Dose: 3 mg Documented By: Admin: 09/15/22 20:03 Dose: 3 mg Documented By: Admin: 09/14/22 20:25 Dose: 3 mg Documented By: LAURENCE Multivitamins (Multivitamin Tab) 1 tab PO QAM DAVEY Stop: 10/18/22 08:59 Last Admin: 09/20/22 08:59 Dose: 1 tab Documented By: Admin: 09/19/22 09:12 Dose: 1 tab Documented By: Admin: 09/18/22 11:10 Dose: 1 tab Documented By: Admin: 09/18/22 08:22 Dose: 1 tab Documented By: Admin: 09/17/22 08:50 Dose: 1 tab Documented By: Admin: 09/16/22 09:04 Dose: 1 tab Documented By: Admin: 09/15/22 08:38 Dose: 1 tab Documented By: Admin: 09/14/22 08:09 Dose: 1 tab Documented By: Admin: 09/13/22 10:48 Dose: 1 tab Documented By: Admin: 09/12/22 08:07 Dose: 1 tab Documented By: Admin: 09/11/22 08:06 Dose: 1 tab Documented By: Admin: 09/10/22 08:28 Dose: 1 tab Documented By: Admin: 09/09/22 09:41 Dose: 1 tab Documented By: Admin: 09/08/22 09:18 Dose: 1 tab Documented By: Admin: 09/07/22 09:50 Dose: 1 tab Documented By: Admin: 09/06/22 08:51 Dose: 1 tab Documented By: Admin: 09/05/22 08:43 Dose: 1 tab Documented By: Admin: 09/04/22 09:33 Dose: 1 tab Documented By: Admin: 09/03/22 08:17 Dose: 1 tab Documented By: Admin: 09/02/22 08:51 Dose: 1 tab Documented By: Admin: 09/01/22 08:33 Dose: 1 tab Documented By: Admin: 08/31/22 08:21 Dose: 1 tab Documented By: Admin: 08/30/22 08:15 Dose: 1 tab Documented By: Admin: 08/29/22 08:42 Dose: 1 tab Documented By: Admin: 08/28/22 08:49 Dose: 1 tab Documented By: Admin: 08/27/22 09:55 Dose: 1 tab Documented By: Admin: 08/26/22 08:15 Dose: 1 tab Documented By: [id number] Admin: 08/25/22 08:22 Dose: 1 tab Documented By: [id number] Admin: 08/24/22 09:18 Dose: 1 tab Documented By: Admin: 08/23/22 09:02 Dose: 1 tab Documented By: Admin: 08/22/22 11:05 Dose: 1 tab Documented By: Admin: 08/21/22 09:50 Dose: 1 tab Documented By: Admin: 08/20/22 09:47 Dose: 1 tab Documented By: [email or web address] Admin: 08/19/22 09:02 Dose: 1 tab Documented By: Admin: 08/18/22 08:41 Dose: 1 tab Documented By: Admin: 08/17/22 08:22 Dose: 1 tab Documented By: Admin: 08/16/22 08:32 Dose: 1 tab Documented By: [email or web address](2) Admin: 08/15/22 09:01 Dose: 1 tab Documented By: Admin: 08/14/22 09:20 Dose: 1 tab Documented By: Admin: 08/13/22 10:25 Dose: 1 tab Documented By: Admin: 08/12/22 12:17 Dose: Not Given Documented By: Admin: 08/11/22 09:17 Dose: 1 tab Documented By: Admin: 08/10/22 07:41 Dose: 1 tab Documented By: Admin: 08/09/22 09:37 Dose: 1 tab Documented By: Admin: 08/08/22 08:45 Dose: 1 tab Documented By: CLAYTON(2) Admin: 08/07/22 08:48 Dose: 1 tab Documented By: CLAYTON(2) Admin: 08/06/22 09:00 Dose: 1 tab Documented By: CLAYTON(2) Admin: 08/05/22 07:48 Dose: 1 tab Documented By: Admin: 08/04/22 08:24 Dose: 1 tab Documented By: [id number] Admin: 08/03/22 08:02 Dose: 1 tab Documented By: [id number] Admin: 08/02/22 08:11 Dose: 1 tab Documented By: [id number] Admin: 08/01/22 08:37 Dose: 1 tab Documented By: [id number] Admin: 07/31/22 08:16 Dose: 1 tab Documented By: Admin: 07/30/22 09:19 Dose: 1 tab Documented By: Admin: 07/29/22 08:16 Dose: 1 tab Documented By: Admin: 07/28/22 07:43 Dose: 1 tab Documented By: Admin: 07/27/22 09:20 Dose: 1 tab Documented By: Admin: 07/26/22 08:16 Dose: 1 tab Documented By: Admin: 07/25/22 07:47 Dose: 1 tab Documented By: CLAYTON(3) Admin: 07/24/22 07:56 Dose: 1 tab Documented By: Admin: 07/23/22 07:57 Dose: 1 tab Documented By: CLAYTON(3) Pantoprazole Sodium (Pantoprazole 40 Mg Tab) 40 mg PO BID DAVEY Stop: 10/18/22 08:59 Last Admin: 09/20/22 08:59 Dose: 40 mg Documented By: Admin: 09/19/22 22:33 Dose: 40 mg Documented By: Admin: 09/19/22 09:12 Dose: 40 mg Documented By: Admin: 09/18/22 20:16 Dose: 40 mg Documented By: Admin: 09/18/22 11:10 Dose: 40 mg Documented By: Admin: 09/17/22 20:05 Dose: 40 mg Documented By: Admin: 09/17/22 08:50 Dose: 40 mg Documented By: Admin: 09/16/22 20:26 Dose: 40 mg Documented By: Admin: 09/16/22 09:05 Dose: 40 mg Documented By: Admin: 09/15/22 20:03 Dose: 40 mg Documented By: Admin: 09/15/22 08:38 Dose: 40 mg Documented By: Admin: 09/14/22 20:26 Dose: 40 mg Documented By: Admin: 09/14/22 08:10 Dose: 40 mg Documented By: Admin: 09/13/22 20:11 Dose: 40 mg Documented By: Admin: 09/13/22 10:48 Dose: 40 mg Documented By: Admin: 09/12/22 20:01 Dose: 40 mg Documented By: Admin: 09/12/22 09:20 Dose: 40 mg Documented By: Admin: 09/11/22 21:12 Dose: 40 mg Documented By: Admin: 09/11/22 08:06 Dose: 40 mg Documented By: Admin: 09/10/22 20:30 Dose: 40 mg Documented By: Admin: 09/10/22 08:28 Dose: 40 mg Documented By: Admin: 09/09/22 20:37 Dose: 40 mg Documented By: Admin: 09/09/22 09:40 Dose: 40 mg Documented By: Admin: 09/08/22 20:01 Dose: 40 mg Documented By: Admin: 09/08/22 09:17 Dose: 40 mg Documented By: Admin: 09/07/22 20:14 Dose: 40 mg Documented By: Admin: 09/07/22 09:50 Dose: 40 mg Documented By: Admin: 09/06/22 20:28 Dose: 40 mg Documented By: Admin: 09/06/22 08:53 Dose: 40 mg Documented By: Admin: 09/05/22 20:35 Dose: 40 mg Documented By: Admin: 09/05/22 08:43 Dose: 40 mg Documented By: Admin: 09/04/22 20:01 Dose: 40 mg Documented By: Admin: 09/04/22 09:34 Dose: 40 mg Documented By: Admin: 09/03/22 21:26 Dose: 40 mg Documented By: Admin: 09/03/22 08:17 Dose: 40 mg Documented By: Admin: 09/02/22 20:08 Dose: 40 mg Documented By: Admin: 09/02/22 08:51 Dose: 40 mg Documented By: Admin: 09/01/22 20:24 Dose: 40 mg Documented By: Admin: 09/01/22 08:30 Dose: 40 mg Documented By: Admin: 08/31/22 20:36 Dose: 40 mg Documented By: Admin: 08/31/22 08:19 Dose: 40 mg Documented By: Admin: 08/30/22 20:29 Dose: 40 mg Documented By: Admin: 08/30/22 08:16 Dose: 40 mg Documented By: Admin: 08/29/22 20:07 Dose: 40 mg Documented By: Admin: 08/29/22 08:40 Dose: 40 mg Documented By: Admin: 08/28/22 19:45 Dose: 40 mg Documented By: Admin: 08/28/22 08:48 Dose: 40 mg Documented By: Admin: 08/27/22 19:34 Dose: 40 mg Documented By: Admin: 08/27/22 09:55 Dose: 40 mg Documented By: Admin: 08/26/22 20:36 Dose: 40 mg Documented By: Admin: 08/26/22 08:13 Dose: 40 mg Documented By: [id number] Admin: 08/25/22 21:25 Dose: 40 mg Documented By: Admin: 08/25/22 08:22 Dose: 40 mg Documented By: [id number] Admin: 08/24/22 20:38 Dose: 40 mg Documented By: Admin: 08/24/22 09:17 Dose: 40 mg Documented By: Admin: 08/23/22 19:30 Dose: 40 mg Documented By: Admin: 08/23/22 09:03 Dose: 40 mg Documented By: Admin: 08/22/22 20:42 Dose: 40 mg Documented By: Admin: 08/22/22 11:04 Dose: 40 mg Documented By: Admin: 08/21/22 20:30 Dose: 40 mg Documented By: Admin: 08/21/22 09:50 Dose: 40 mg Documented By: Admin: 08/20/22 20:02 Dose: 40 mg Documented By: Admin: 08/20/22 09:45 Dose: 40 mg Documented By: Admin: 08/19/22 21:33 Dose: 40 mg Documented By: Admin: 08/19/22 09:02 Dose: 40 mg Documented By: Admin: 08/18/22 20:06 Dose: 40 mg Documented By: Admin: 08/18/22 08:41 Dose: 40 mg Documented By: Admin: 08/17/22 21:10 Dose: 40 mg Documented By: Admin: 08/17/22 08:22 Dose: 40 mg Documented By: Admin: 08/16/22 20:31 Dose: 40 mg Documented By: Admin: 08/16/22 08:32 Dose: 40 mg Documented By: [email or web address]) Admin: 08/15/22 22:14 Dose: 40 mg Documented By: Admin: 08/15/22 09:01 Dose: 40 mg Documented By: Admin: 08/14/22 23:20 Dose: 40 mg Documented By: Admin: 08/14/22 09:20 Dose: 40 mg Documented By: Admin: 08/13/22 22:14 Dose: 40 mg Documented By: Admin: 08/12/22 22:15 Dose: 40 mg Documented By: Admin: 08/12/22 12:17 Dose: Not Given Documented By: Admin: 08/11/22 20:37 Dose: 40 mg Documented By: Admin: 08/11/22 09:18 Dose: 40 mg Documented By: Admin: 08/10/22 20:11 Dose: 40 mg Documented By: Admin: 08/10/22 07:41 Dose: 40 mg Documented By: Admin: 08/09/22 20:14 Dose: 40 mg Documented By: Admin: 08/09/22 09:37 Dose: 40 mg Documented By: Admin: 08/08/22 20:43 Dose: 40 mg Documented By: Admin: 08/08/22 08:45 Dose: 40 mg Documented By: [email or web address](2) Admin: 08/07/22 20:51 Dose: 40 mg Documented By: Admin: 08/07/22 08:48 Dose: 40 mg Documented By: [email or web address](2) Admin: 08/06/22 20:43 Dose: 40 mg Documented By: Admin: 08/06/22 09:00 Dose: 40 mg Documented By: KS(2) Admin: 08/05/22 19:57 Dose: 40 mg Documented By: Admin: 08/05/22 07:47 Dose: 40 mg Documented By: Admin: 08/04/22 20:09 Dose: 40 mg Documented By: Admin: 08/04/22 08:24 Dose: 40 mg Documented By: [id number] Admin: 08/03/22 19:56 Dose: 40 mg Documented By: Admin: 08/03/22 08:02 Dose: 40 mg Documented By: [id number] Admin: 08/02/22 20:41 Dose: 40 mg Documented By: Admin: 08/02/22 08:11 Dose: 40 mg Documented By: [id number] Admin: 08/01/22 19:46 Dose: 40 mg Documented By: Admin: 08/01/22 08:37 Dose: 40 mg Documented By: [id number] Admin: 07/31/22 19:43 Dose: 40 mg Documented By: Admin: 07/31/22 08:16 Dose: 40 mg Documented By: Admin: 07/30/22 21:01 Dose: 40 mg Documented By: Admin: 07/30/22 09:18 Dose: 40 mg Documented By: Admin: 07/29/22 20:11 Dose: 40 mg Documented By: Admin: 07/29/22 08:17 Dose: 40 mg Documented By: Admin: 07/28/22 20:34 Dose: 40 mg Documented By: Admin: 07/28/22 07:42 Dose: 40 mg Documented By: Admin: 07/27/22 20:41 Dose: 40 mg Documented By: Admin: 07/27/22 09:19 Dose: 40 mg Documented By: Admin: 07/26/22 20:38 Dose: 40 mg Documented By: Admin: 07/26/22 08:15 Dose: 40 mg Documented By: Admin: 07/25/22 20:16 Dose: 40 mg Documented By: Admin: 07/25/22 07:46 Dose: 40 mg Documented By: CLAYTON(3) Admin: 07/24/22 20:34 Dose: 40 mg Documented By: Admin: 07/24/22 07:55 Dose: 40 mg Documented By: Admin: 07/23/22 19:31 Dose: 40 mg Documented By: Admin: 07/23/22 07:56 Dose: 40 mg Documented By: CLAYTON(3) Potassium Chloride (Potassium Chloride 10 Meq Tabcr) 10 meq PO DAILY DAVEY Stop: 10/20/22 10:44 Last Admin: 09/20/22 13:34 Dose: 10 meq Documented By: JOHNSON Rifaximin (Rifaximin 550 Mg Tablet) 550 mg PO BID DAVEY Stop: 10/18/22 08:59 Last Admin: 09/20/22 08:59 Dose: 550 mg Documented By: Admin: 09/19/22 22:33 Dose: 550 mg Documented By: Admin: 09/19/22 09:12 Dose: 550 mg Documented By: Admin: 09/18/22 20:16 Dose: 550 mg Documented By: Admin: 09/18/22 11:10 Dose: 550 mg Documented By: Admin: 09/17/22 20:05 Dose: 550 mg Documented By: Admin: 09/17/22 08:50 Dose: 550 mg Documented By: Admin: 09/16/22 20:26 Dose: 550 mg Documented By: Admin: 09/16/22 09:04 Dose: 550 mg Documented By: Admin: 09/15/22 20:03 Dose: 550 mg Documented By: Admin: 09/15/22 08:38 Dose: 550 mg Documented By: Admin: 09/14/22 20:27 Dose: 550 mg Documented By: Admin: 09/14/22 08:13 Dose: 550 mg Documented By: Admin: 09/13/22 20:11 Dose: 550 mg Documented By: Admin: 09/13/22 10:48 Dose: 550 mg Documented By: Admin: 09/12/22 20:01 Dose: 550 mg Documented By: Admin: 09/12/22 08:04 Dose: 550 mg Documented By: Admin: 09/11/22 21:12 Dose: 550 mg Documented By: Admin: 09/11/22 08:05 Dose: 550 mg Documented By: Admin: 09/10/22 20:30 Dose: 550 mg Documented By: Admin: 09/10/22 08:27 Dose: 550 mg Documented By: Admin: 09/09/22 20:37 Dose: 550 mg Documented By: Admin: 09/09/22 09:40 Dose: 550 mg Documented By: Admin: 09/08/22 20:01 Dose: 550 mg Documented By: Admin: 09/08/22 09:18 Dose: 550 mg Documented By: Admin: 09/07/22 20:15 Dose: 550 mg Documented By: Admin: 09/07/22 09:51 Dose: 550 mg Documented By: Admin: 09/06/22 20:29 Dose: 550 mg Documented By: Admin: 09/06/22 08:53 Dose: 550 mg Documented By: Admin: 09/05/22 20:35 Dose: 550 mg Documented By: Admin: 09/05/22 08:43 Dose: 550 mg Documented By: Admin: 09/04/22 20:02 Dose: 550 mg Documented By: Admin: 09/04/22 09:35 Dose: 550 mg Documented By: Admin: 09/03/22 21:25 Dose: 550 mg Documented By: Admin: 09/03/22 08:18 Dose: 550 mg Documented By: Admin: 09/02/22 20:08 Dose: 550 mg Documented By: Admin: 09/02/22 08:51 Dose: 550 mg Documented By: Admin: 09/01/22 20:23 Dose: 550 mg Documented By: Admin: 09/01/22 08:31 Dose: 550 mg Documented By: Admin: 08/31/22 20:36 Dose: 550 mg Documented By: Admin: 08/31/22 08:20 Dose: 550 mg Documented By: Admin: 08/30/22 20:28 Dose: 550 mg Documented By: Admin: 08/30/22 08:16 Dose: 550 mg Documented By: Admin: 08/29/22 20:08 Dose: 550 mg Documented By: Admin: 08/29/22 08:41 Dose: 550 mg Documented By: Admin: 08/28/22 19:44 Dose: 550 mg Documented By: Admin: 08/28/22 08:48 Dose: 550 mg Documented By: Admin: 08/27/22 19:34 Dose: 550 mg Documented By: Admin: 08/27/22 09:55 Dose: 550 mg Documented By: Admin: 08/26/22 20:36 Dose: 550 mg Documented By: Admin: 08/26/22 08:13 Dose: 550 mg Documented By: [id number] Admin: 08/25/22 21:23 Dose: 550 mg Documented By: Admin: 08/25/22 08:22 Dose: 550 mg Documented By: [id number] Admin: 08/24/22 20:37 Dose: 550 mg Documented By: Admin: 08/24/22 09:22 Dose: 550 mg Documented By: Admin: 08/23/22 20:58 Dose: 550 mg Documented By: Admin: 08/23/22 09:03 Dose: 550 mg Documented By: Admin: 08/22/22 20:42 Dose: 550 mg Documented By: Admin: 08/22/22 11:03 Dose: 550 mg Documented By: Admin: 08/21/22 20:30 Dose: 550 mg Documented By: Admin: 08/21/22 09:51 Dose: 550 mg Documented By: Admin: 08/20/22 20:02 Dose: 550 mg Documented By: Admin: 08/20/22 09:46 Dose: 550 mg Documented By: Admin: 08/19/22 21:32 Dose: 550 mg Documented By: Admin: 08/19/22 09:02 Dose: 550 mg Documented By: Admin: 08/18/22 20:07 Dose: 550 mg Documented By: Admin: 08/18/22 08:41 Dose: 550 mg Documented By: Admin: 08/17/22 21:10 Dose: 550 mg Documented By: Admin: 08/17/22 08:22 Dose: 550 mg Documented By: Admin: 08/16/22 20:31 Dose: 550 mg Documented By: Admin: 08/16/22 08:32 Dose: 550 mg Documented By: SMM(2) Admin: 08/15/22 22:14 Dose: 550 mg Documented By: Admin: 08/15/22 09:01 Dose: 550 mg Documented By: Admin: 08/14/22 23:22 Dose: 550 mg Documented By: Admin: 08/14/22 09:20 Dose: 550 mg Documented By: Admin: 08/13/22 22:15 Dose: 550 mg Documented By: Admin: 08/13/22 10:26 Dose: 550 mg Documented By: Admin: 08/12/22 22:15 Dose: 550 mg Documented By: Admin: 08/12/22 12:17 Dose: Not Given Documented By: Admin: 08/11/22 20:37 Dose: 550 mg Documented By: Admin: 08/11/22 09:17 Dose: 550 mg Documented By: Admin: 08/10/22 20:11 Dose: 550 mg Documented By: Admin: 08/10/22 07:40 Dose: 550 mg Documented By: Admin: 08/09/22 20:14 Dose: 550 mg Documented By: Admin: 08/09/22 09:39 Dose: 550 mg Documented By: Admin: 08/08/22 20:43 Dose: 550 mg Documented By: Admin: 08/08/22 08:45 Dose: 550 mg Documented By: KS(2) Admin: 08/07/22 20:51 Dose: 550 mg Documented By: Admin: 08/07/22 08:48 Dose: 550 mg Documented By: KS(2) Admin: 08/06/22 20:43 Dose: 550 mg Documented By: Admin: 08/06/22 09:01 Dose: 550 mg Documented By: KS(2) Admin: 08/05/22 19:57 Dose: 550 mg Documented By: Admin: 08/05/22 07:47 Dose: 550 mg Documented By: Admin: 08/04/22 20:09 Dose: 550 mg Documented By: Admin: 08/04/22 08:25 Dose: 550 mg Documented By: [id number] Admin: 08/03/22 19:56 Dose: 550 mg Documented By: Admin: 08/03/22 08:03 Dose: 550 mg Documented By: [id number] Admin: 08/02/22 20:41 Dose: 550 mg Documented By: Admin: 08/02/22 08:11 Dose: 550 mg Documented By: [id number] Admin: 08/01/22 19:47 Dose: 550 mg Documented By: Admin: 08/01/22 08:37 Dose: 550 mg Documented By: [id number] Admin: 07/31/22 19:44 Dose: 550 mg Documented By: Admin: 07/31/22 08:17 Dose: 550 mg Documented By: Admin: 07/30/22 21:02 Dose: 550 mg Documented By: Admin: 07/30/22 09:18 Dose: 550 mg Documented By: Admin: 07/29/22 20:11 Dose: 550 mg Documented By: Admin: 07/29/22 08:17 Dose: 550 mg Documented By: Admin: 07/28/22 20:34 Dose: 550 mg Documented By: Admin: 07/28/22 07:41 Dose: 550 mg Documented By: Admin: 07/27/22 20:42 Dose: 550 mg Documented By: Admin: 07/27/22 09:19 Dose: 550 mg Documented By: Admin: 07/26/22 20:38 Dose: 550 mg Documented By: Admin: 07/26/22 08:16 Dose: 550 mg Documented By: Admin: 07/25/22 20:16 Dose: 550 mg Documented By: Admin: 07/25/22 07:46 Dose: 550 mg Documented By: CLAYTON(3) Admin: 07/24/22 20:34 Dose: 550 mg Documented By: Admin: 07/24/22 07:56 Dose: 550 mg Documented By: Admin: 07/23/22 19:32 Dose: 550 mg Documented By: Admin: 07/23/22 07:56 Dose: 550 mg Documented By: KS(3) Thiamine HCl (Thiamine Hcl 100 Mg Tab) 100 mg PO DAILY DAVEY Stop: 10/18/22 08:59 Last Admin: 09/20/22 08:59 Dose: 100 mg Documented By: Admin: 09/19/22 09:12 Dose: 100 mg Documented By: Admin: 09/18/22 08:22 Dose: 100 mg Documented By: Admin: 09/17/22 08:50 Dose: 100 mg Documented By: Admin: 09/16/22 09:04 Dose: 100 mg Documented By: Admin: 09/15/22 08:38 Dose: 100 mg Documented By: Admin: 09/14/22 08:13 Dose: 100 mg Documented By: Admin: 09/13/22 10:48 Dose: 100 mg Documented By: Admin: 09/12/22 08:06 Dose: 100 mg Documented By: Admin: 09/11/22 08:07 Dose: 100 mg Documented By: Admin: 09/10/22 08:29 Dose: 100 mg Documented By: Admin: 09/09/22 09:41 Dose: 100 mg Documented By: Admin: 09/08/22 09:17 Dose: 100 mg Documented By: Admin: 09/07/22 09:49 Dose: 100 mg Documented By: Admin: 09/06/22 08:52 Dose: 100 mg Documented By: Admin: 09/05/22 08:43 Dose: 100 mg Documented By: Admin: 09/04/22 09:35 Dose: 100 mg Documented By: Admin: 09/03/22 08:15 Dose: 100 mg Documented By: Admin: 09/02/22 08:50 Dose: 100 mg Documented By: Admin: 09/01/22 10:05 Dose: 100 mg Documented By: AURORA Umeclidinium/Vilanterol (Umeclidinium/Vilanterol 62.5/25mcg 7 Puffs/Inhaler) 1 puffs INH QAM [facility] Stop: 10/18/22 08:59 Last Admin: 09/20/22 08:59 Dose: 1 puffs Documented By: Admin: 09/19/22 09:13 Dose: 1 puffs Documented By: Admin: 09/18/22 08:22 Dose: 1 puffs Documented By: Admin: 09/17/22 08:50 Dose: 1 puffs Documented By: Admin: 09/16/22 13:20 Dose: Not Given Documented By: Admin: 09/15/22 08:38 Dose: 1 puffs Documented By: Admin: 09/14/22 08:08 Dose: 1 puffs Documented By: Admin: 09/13/22 10:49 Dose: 1 puffs Documented By: Admin: 09/12/22 08:07 Dose: 1 puffs Documented By: Admin: 09/11/22 08:08 Dose: 1 puffs Documented By: Admin: 09/10/22 08:30 Dose: 1 puffs Documented By: Admin: 09/09/22 09:42 Dose: 1 puffs Documented By: Admin: 09/08/22 09:18 Dose: 1 puffs Documented By: Admin: 09/07/22 09:52 Dose: 1 puffs Documented By: Admin: 09/06/22 08:54 Dose: 1 puffs Documented By: Admin: 09/05/22 08:42 Dose: 1 puffs Documented By: Admin: 09/04/22 09:35 Dose: 1 puffs Documented By: [email or web address] Admin: 09/03/22 12:52 Dose: 1 puffs Documented By: Admin: 09/02/22 08:52 Dose: 1 puffs Documented By: Admin: 09/01/22 08:43 Dose: 1 puffs Documented By: Admin: 08/31/22 08:20 Dose: 1 puffs Documented By: Admin: 08/30/22 08:17 Dose: 1 puffs Documented By: Admin: 08/29/22 08:44 Dose: 1 puffs Documented By: Admin: 08/28/22 09:12 Dose: 1 puffs Documented By: Admin: 08/27/22 09:56 Dose: 1 puffs Documented By: Admin: 08/26/22 08:16 Dose: 1 puffs Documented By: [id number] Admin: 08/25/22 08:21 Dose: 1 puffs Documented By: [id number] Admin: 08/24/22 09:22 Dose: 1 puffs Documented By: Admin: 08/23/22 08:55 Dose: 1 puffs Documented By: Admin: 08/22/22 11:01 Dose: 1 puffs Documented By: Admin: 08/21/22 09:51 Dose: 1 puffs Documented By: Admin: 08/20/22 09:47 Dose: 1 puffs Documented By: [email or web address] Admin: 08/19/22 09:03 Dose: 1 puffs Documented By: Admin: 08/18/22 08:42 Dose: 1 puffs Documented By: Admin: 08/17/22 08:22 Dose: 1 puffs Documented By: Admin: 08/16/22 08:32 Dose: 1 puffs Documented By: [email or web address](2) Admin: 08/15/22 09:00 Dose: 1 puffs Documented By: Admin: 08/14/22 09:25 Dose: 1 puffs Documented By: Admin: 08/13/22 09:11 Dose: Not Given Documented By: Admin: 08/12/22 12:18 Dose: Not Given Documented By: Admin: 08/11/22 09:18 Dose: 1 puffs Documented By: Admin: 08/10/22 07:43 Dose: 1 puffs Documented By: Admin: 08/09/22 09:39 Dose: 1 puffs Documented By: Admin: 08/08/22 08:45 Dose: 1 puffs Documented By: CLAYTON(2) Admin: 08/07/22 08:48 Dose: 1 puffs Documented By: CLAYTON(2) Admin: 08/06/22 09:01 Dose: 1 puffs Documented By: CLAYTON(2) Admin: 08/05/22 07:48 Dose: 1 puffs Documented By: Admin: 08/04/22 08:24 Dose: 1 puffs Documented By: [id number] Admin: 08/03/22 08:03 Dose: 1 puffs Documented By: [id number] Admin: 08/02/22 08:11 Dose: 1 puffs Documented By: [id number] Admin: 08/01/22 09:44 Dose: 1 puffs Documented By: [id number] Admin: 07/31/22 08:17 Dose: 1 puffs Documented By: Admin: 07/30/22 09:21 Dose: 1 puffs Documented By: Admin: 07/29/22 08:18 Dose: 1 puffs Documented By: Admin: 07/28/22 07:45 Dose: 1 puffs Documented By: Admin: 07/27/22 09:20 Dose: 1 puffs Documented By: Admin: 07/26/22 08:15 Dose: 1 puffs Documented By: Admin: 07/25/22 07:47 Dose: 1 puffs Documented By: CLAYTON(3) Admin: 07/24/22 07:56 Dose: 1 puffs Documented By: Admin: 07/23/22 07:55 Dose: 1 puffs Documented By: CLAYTON(3) Vitamin D (Cholecalciferol 1,000 Units 25 Mcg Tab) 2,000 units PO QAM [facility] Stop: 10/18/22 08:59 Last Admin: 09/20/22 08:58 Dose: 2,000 units Documented By: Admin: 09/19/22 09:12 Dose: 2,000 units Documented By: Admin: 09/18/22 11:10 Dose: 2,000 units Documented By: Admin: 09/17/22 08:50 Dose: 2,000 units Documented By: Admin: 09/16/22 09:07 Dose: 2,000 units Documented By: Admin: 09/15/22 08:38 Dose: 2,000 units Documented By: Admin: 09/14/22 08:11 Dose: 2,000 units Documented By: Admin: 09/13/22 10:48 Dose: 2,000 units Documented By: Admin: 09/12/22 08:07 Dose: 2,000 units Documented By: Admin: 09/11/22 08:07 Dose: 2,000 units Documented By: Admin: 09/10/22 08:29 Dose: 2,000 units Documented By: Admin: 09/09/22 09:41 Dose: 2,000 units Documented By: Admin: 09/08/22 09:17 Dose: 2,000 units Documented By: Admin: 09/07/22 09:49 Dose: 2,000 units Documented By: Admin: 09/06/22 08:52 Dose: 2,000 units Documented By: Admin: 09/05/22 08:43 Dose: 2,000 units Documented By: Admin: 09/04/22 09:31 Dose: 2,000 units Documented By: Admin: 09/03/22 08:15 Dose: 2,000 units Documented By: Admin: 09/02/22 08:50 Dose: 2,000 units Documented By: Admin: 09/01/22 08:31 Dose: 2,000 units Documented By: Admin: 08/31/22 08:21 Dose: 2,000 units Documented By: Admin: 08/30/22 08:15 Dose: 2,000 units Documented By: Admin: 08/29/22 08:41 Dose: 2,000 units Documented By: Admin: 08/28/22 08:49 Dose: 2,000 units Documented By: Admin: 08/27/22 09:54 Dose: 2,000 units Documented By: Admin: 08/26/22 08:15 Dose: 2,000 units Documented By: [id number] Admin: 08/25/22 08:23 Dose: 2,000 units Documented By: [id number] Admin: 08/24/22 09:18 Dose: 2,000 units Documented By: Admin: 08/23/22 08:56 Dose: 2,000 units Documented By: Admin: 08/22/22 11:06 Dose: 2,000 units Documented By: Admin: 08/21/22 12:49 Dose: 2,000 units Documented By: Admin: 08/20/22 09:45 Dose: 2,000 units Documented By: Admin: 08/19/22 09:02 Dose: 2,000 units Documented By: Admin: 08/18/22 08:41 Dose: 2,000 units Documented By: Admin: 08/17/22 08:21 Dose: 2,000 units Documented By: Admin: 08/16/22 08:32 Dose: 2,000 units Documented By: SMM(2) Admin: 08/15/22 09:02 Dose: 2,000 units Documented By: Admin: 08/14/22 09:19 Dose: 2,000 units Documented By: Admin: 08/13/22 10:26 Dose: 2,000 units Documented By: Admin: 08/12/22 12:16 Dose: Not Given Documented By: Admin: 08/11/22 09:17 Dose: 2,000 units Documented By: Admin: 08/10/22 07:41 Dose: 2,000 units Documented By: Admin: 08/09/22 09:36 Dose: 2,000 units Documented By: Admin: 08/08/22 08:45 Dose: 2,000 units Documented By: CLAYTON(2) Admin: 08/07/22 08:48 Dose: 2,000 units Documented By: CLAYTON(2) Admin: 08/06/22 09:01 Dose: 2,000 units Documented By: CLAYTON(2) Admin: 08/05/22 07:47 Dose: 2,000 units Documented By: Admin: 08/04/22 08:24 Dose: 2,000 units Documented By: [id number] Admin: 08/03/22 08:02 Dose: 2,000 units Documented By: [id number] Admin: 08/02/22 08:11 Dose: 2,000 units Documented By: [id number] Admin: 08/01/22 08:37 Dose: 2,000 units Documented By: [id number] Admin: 07/31/22 08:16 Dose: 2,000 units Documented By: Admin: 07/30/22 09:19 Dose: 2,000 units Documented By: Admin: 07/29/22 08:16 Dose: 2,000 units Documented By: Admin: 07/28/22 07:44 Dose: 2,000 units Documented By: Admin: 07/27/22 09:20 Dose: 2,000 units Documented By: Admin: 07/26/22 08:15 Dose: 2,000 units Documented By: Admin: 07/25/22 07:46 Dose: 2,000 units Documented By: CLAYTON(3) Admin: 07/24/22 07:55 Dose: 2,000 units Documented By: Admin: 07/23/22 07:55 Dose: 2,000 units Documented By: CLAYTON(3) Coding Level of Care Code 71659 U Intl Hosp Care Lvl 2 Diagnoses Acute hepatic encephalopathy K76.82 Delirium R41.0
[2022-09-20] MEDS: MELATONIN 3 MG TAB PO SCH (19:39)
[2022-09-20] MEDS ORDERED: QUEtiapine FUMARATE 25 MG TABLET PO SCH (21:00)
--- NOTE | 2022-09-21 07:12 | Hospitalist Progress Note ---
Date of Service September 21, 2022 Assessment & Plan (1) Acute alteration in mental status: Plan: Pt is a 71 yo male with PMH of intracranial hemorrhage, alcohol induced cirrhosis, atrial fibrillation, insomnia, gout, carotid artery stenosis, COPD, who was admitted to the hospital for altered mental status. His presentation was unchanged from previous admission. His confusion is secondary to hepatic encephalopathy with possible component of superimposed delirium. Altered Mental Status: 2/2 Hepatic Encephalopathy w/ Superimposed Hyperactive Delirium Baseline mentation - struggles with word finding but is able to communicate more fully and can perform some of his daily activities of living independently. - Know hx of alcoholic cirrhosis with previous HE - Admitted 07/22/2022 d/t hyperammonemia of 156 - CT Head (08/12) and CXR (07/22) w/o acute change - Blood cx 08/12 neg - Continue melatonin 3mg q1800 daily - Delirium precautions ongoing - Continue lactulose, rifaximin. Goal of 3-4 BMs per day - Pt with acute mental status change likely secondary to hyperactive delirium - still having consistent BM, ammonia continues to trend down - one to one ordered - UA negative - Started on Seroquel 12.5mg yesterday per pysch recommendations, will increases to 12.5mg BID Hypokalemia - monitoring labs every other day: will check again tomorrow (09/20= 3.7) - likely secondary to lasix, lisinopril - will start daily potassium supplementation Hyperbilirubinemia - Pt with elevated bilirubin at 4.8 secondary to chronic liver disease - Lipase and LFT's are within baseline - US liver showed nonvisualization of the gallbladder and common bile duct as well as cirrhosis w/o hepatic mass - Bilirubin stable; continues to stabilize/down trend Hyponatremia - resolved Alcoholic Liver Cirrhosis - MELD 18 upon admission - Lasix 40 mg Atrial Fibrillation - Not on anticoagulation due to recent intraparenchymal hemorrhage - Episodes of irregular rhythm Hypertension - Continue home lisinopril 5 mg Hx of Intracranial Hemorrhage - Continue levetiracetam Deconditioning - PT recommends 24/7 care either at SNF or at home with home health depending on family choice - 08/17 PT noted failure to progress beyond requirement of 24 hour supervision: recommended 24 hour care, PCF, and return home - pt originally to go to [facility] 08/19 - Pending placement: per CM, insurance denied SNF. CM continuing to look for other placement. GERD - Continue Protonix COPD - Continue home inhaler (2) Alcoholic cirrhosis of liver: (3) GERD (gastroesophageal reflux disease): (4) Hypertension: (5) COPD (chronic obstructive pulmonary disease): (6) Patient unarousable: (7) Asymptomatic bacteriuria: Plan Diet:Fully alert -minced and moist; less alert -pureed DVT ppx:SCDs only d/t intracranial hemorrhage hx Dispo:pending residential placement, insurance denied SNF placement Code Status:DNR/DNI Admission and Anticipated Discharge Date Admission Date: July 23, 2022 Supervising Physician Co-Signing Physician Notes Attending attestation I also saw the patient with the resident physician. I agree with the impression plan as noted in the resident documentation. The patient was better overnight but again is agitated this morning. He has mistaken his chair as a toilet and unfortunately had defecated in his chair. He is resistant to assistance with care; verbally combative, mild physical resistance with care. Exam 154/86, 70, 18, 36.8, 94% room air Exam limited secondary to condition Data Sodium 146, potassium 3.7, BUN 16, creatinine 0.98 Calcium 8.4, magnesium 1.9, total bilirubin 3.4, AST 40, ALT 16, alkaline phosphatase 126 Ammonia level (09/19/2022) 85 Impression and plan Hyperactive delirium likely multifactorial in the setting of prolonged hospitalization. Psychiatry consult appreciated Increase Seroquel to 12.5 mg p.o. twice daily One-to-one at discretion of nursing Additional per resident documentation Douglas Monzon is a 71 y/o male with PMH of intracranial hemorrhage, alcohol induced cirrhosis, atrial fibrillation, insomnia, gout, carotid artery stenosis, COPD, who was admitted to the hospital for altered mental status. His presentation was unchanged from previous admission. His confusion is secondary to hepatic encephalopathy with possible component of superimposed delirium. Still agitating this morning. Continues to have consistent bowel movements. Review of Systems Review of Systems: As per HPI Physical Exam Physical Exam: Constitutional: well-appearing, no acute distress HEENT: NCAT, no conjunctival injection CV: regular rhythm, no murmur appreciated, extremities well-perfused, no LE edema Resp: CTABL, no wheezes/rales/rhonchi appreciated, no increased work of breathing GI: soft, nondistended, nontender, BS normoactive MSK: no gross deformities appreciated Skin: warm, dry, no rash appreciated Neuro: alert, oriented, no focal neurologic deficit appreciated Resident Activity Tracking Resident Involvement: Resident Care Provided Care Provided: Adult [facility]
[2022-09-21] MEDS: PANTOprazole 40 MG TAB PO SCH ×2 (08:09→19:38)
[2022-09-21] MEDS: THIAMINE HCL 100 MG TAB PO SCH (08:09)
[2022-09-21] MEDS: FERROUS SULFATE 325 MG TAB PO SCH ×2 (08:09→19:39)
[2022-09-21] MEDS: POTASSIUM CHLORIDE 10 MEQ TABCR PO SCH (08:28)
[2022-09-21] MEDS: FUROSEMIDE 40 MG TAB PO SCH ×2 (08:28→16:11)
[2022-09-21] MEDS: lisinopril 5 MG TAB PO SCH (08:28)
[2022-09-21] MEDS: MULTIVITAMIN TAB PO SCH (08:28)
[2022-09-21] MEDS: rifAXIMin 550 MG TABLET PO SCH ×2 (08:28→19:38)
[2022-09-21] MEDS: CHOLECALCIFEROL 1,000 UNITS 25 MCG TAB PO SCH (08:28)
[2022-09-21] MEDS: LACTULOSE SYRUP 30 GM/45 ML UDP PO SCH ×4 (08:29→19:37)
[2022-09-21] MEDS: levETIRAcetam 500 MG TAB PO SCH ×2 (08:29→19:39)
[2022-09-21] MEDS: UMECLIDINIUM/VILANTEROL 62.5/25MCG 7 PUFFS/INHALER INH SCH (08:29)
[2022-09-21] MEDS: LACTULOSE 200GM/700ML WTR ENEMA PR SCH (10:24)
[2022-09-21] MEDS: QUEtiapine FUMARATE 25 MG TABLET PO SCH ×2 (11:17→19:39)
--- NOTE | 2022-09-21 14:32 | Electrocardiogram Report ---
Test Reason : Blood Pressure : / mmHG Vent. Rate : 066 BPM Atrial Rate : 340 BPM P-R Int : 000 ms QRS Dur : 100 ms QT Int : 398 ms P-R-T Axes : 000 029 245 degrees QTc Int : 417 ms Atrial fibrillation Nonspecific T wave abnormality Abnormal ECG When compared with ECG of 22-JUL-2022 17:36, Nonspecific T wave abnormality, worse in Inferior leads Nonspecific T wave abnormality now evident in Anterolateral leads Confirmed by Juan Miguel Stahl ([id number]) on 09/21/2022 2:32:31 PM Referred By: REFERRED SELF Confirmed By:Juan Miguel Stahl
[2022-09-21] MEDS: MELATONIN 3 MG TAB PO SCH (19:38)
[2022-09-22] MEDS: QUEtiapine FUMARATE 25 MG TABLET PO SCH ×2 (07:20→20:19)
[2022-09-22] MEDS: MULTIVITAMIN TAB PO SCH (07:21)
[2022-09-22] MEDS: POTASSIUM CHLORIDE 10 MEQ TABCR PO SCH (07:21)
[2022-09-22] MEDS: THIAMINE HCL 100 MG TAB PO SCH (07:21)
[2022-09-22] MEDS: PANTOprazole 40 MG TAB PO SCH ×2 (07:21→20:19)
[2022-09-22] MEDS: levETIRAcetam 500 MG TAB PO SCH ×2 (07:21→20:19)
[2022-09-22] MEDS: FERROUS SULFATE 325 MG TAB PO SCH ×2 (07:21→20:19)
[2022-09-22] MEDS: CHOLECALCIFEROL 1,000 UNITS 25 MCG TAB PO SCH (07:21)
[2022-09-22] MEDS: rifAXIMin 550 MG TABLET PO SCH ×2 (07:21→20:19)
[2022-09-22] MEDS: lisinopril 5 MG TAB PO SCH (07:24)
[2022-09-22] MEDS: FUROSEMIDE 40 MG TAB PO SCH ×2 (07:24→17:47)
[2022-09-22] MEDS: UMECLIDINIUM/VILANTEROL 62.5/25MCG 7 PUFFS/INHALER INH SCH (07:25)
[2022-09-22] MEDS: LACTULOSE SYRUP 30 GM/45 ML UDP PO SCH ×4 (07:26→20:20)
[2022-09-22 08:37] LABS: Albumin Globulin Ratio 0.8 (0.9-2); Albumin Level 2.7 gm/dl (3.4-5.0); BUN Creatinine Ratio 19.4 (10-20); Bilirubin,Total 2.6 mg/dl (0.2-1.0); Calcium 8.2 mg/dl (8.5-10.1); Creatinine Clr Calc Pharmacy 68.3 ml/min; Est GFR (African American) 95.4 ml/min; Est GFR (Non-African American) 82.3 ml/min; Globulin 3.3 gm/dl (2.5-4.0); Potassium 3.4 mmol/L (3.5-5.1)
--- NOTE | 2022-09-22 14:50 | Hospitalist Progress Note ---
Date of Service September 22, 2022 Assessment & Plan (1) Acute alteration in mental status: Plan: Pt is a 71 yo male with PMH of intracranial hemorrhage, alcohol induced cirrhosis, atrial fibrillation, insomnia, gout, carotid artery stenosis, COPD, who was admitted to the hospital for altered mental status. His presentation was unchanged from previous admission. His confusion is secondary to hepatic encephalopathy with possible component of superimposed delirium. Altered Mental Status: 2/2 Hepatic Encephalopathy w/ Superimposed Hyperactive Delirium Baseline mentation - struggles with word finding but is able to communicate more fully and can perform some of his daily activities of living independently. - Know hx of alcoholic cirrhosis with previous HE - Admitted 07/22/2022 d/t hyperammonemia of 156 - CT Head (08/12) and CXR (07/22) w/o acute change - Blood cx 08/12 neg - Continue melatonin 3mg q1800 daily - Delirium precautions ongoing - Continue lactulose, rifaximin. Goal of 3-4 BMs per day - Pt with acute mental status change likely secondary to hyperactive delirium - still having consistent BM, ammonia= 92 - one to one ordered - UA negative - Started on Seroquel per pysch recommendations, will increase to 12.5 qAM and 25 qHS Hypokalemia - monitoring labs every other day: K= 3.4 today. - likely secondary to lasix, lisinopril - On 10meq K daily Hyperbilirubinemia - Pt with elevated bilirubin at 4.8 secondary to chronic liver disease - Lipase and LFT's are within baseline - US liver showed nonvisualization of the gallbladder and common bile duct as well as cirrhosis w/o hepatic mass - Bilirubin stable; continues to stabilize/down trend Hyponatremia - resolved Alcoholic Liver Cirrhosis - MELD 18 upon admission - Lasix 40 mg Atrial Fibrillation - Not on anticoagulation due to recent intraparenchymal hemorrhage - Episodes of irregular rhythm Hypertension - Continue home lisinopril 5 mg Hx of Intracranial Hemorrhage - Continue levetiracetam Deconditioning - PT recommends 24/7 care either at SNF or at home with home health depending on family choice - 08/17 PT noted failure to progress beyond requirement of 24 hour supervision: recommended 24 hour care, PCF, and return home - pt originally to go to [facility] 08/19 - Pending placement: per CM, insurance denied SNF. CM continuing to look for other placement. GERD - Continue Protonix COPD - Continue home inhaler (2) Alcoholic cirrhosis of liver: (3) GERD (gastroesophageal reflux disease): (4) Hypertension: (5) COPD (chronic obstructive pulmonary disease): (6) Patient unarousable: (7) Asymptomatic bacteriuria: Plan Diet:Fully alert -minced and moist; less alert -pureed DVT ppx:SCDs only d/t intracranial hemorrhage hx Dispo:pending group home placement, insurance denied SNF placement Code Status:DNR/DNI Admission and Anticipated Discharge Date Admission Date: July 23, 2022 Supervising Physician Co-Signing Physician Notes Attending attestation I also saw the patient with the resident physician. I agree with the impression plan as noted in the resident documentation. Less agitated today, although confused. Still some agitation, but more passive. Exam 149/79, 65, 18, 36.6, 94% on room air Exam limited secondary to condition Data Sodium 141, potassium 3.4, BUN 18, creatinine 0.93 Ammonia level 92 Impression and plan Hyperactive delirium likely multifactorial in the setting of prolonged hospitalization. Psychiatry consult appreciated Increase Seroquel to 12.5 mg in a.m. and 25 mg p.o. nightly One-to-one at discretion of nursing Additional per resident documentation Douglas Monzon is a 71 y/o male with PMH of intracranial hemorrhage, alcohol induced cirrhosis, atrial fibrillation, insomnia, gout, carotid artery stenosis, COPD, w ho was admitted to the hospital for altered mental status. His presentation was unchanged from previous admission. His confusion is secondary to hepatic encephalopathy with possible component of superimposed delirium. Still agitating this morning, but improved from prior days. Resting comfortably in bed. Continues to have consistent bowel movements. Review of Systems Review of Systems: As per HPI Physical Exam Physical Exam: Constitutional: well-appearing, no acute distress HEENT: NCAT, no conjunctival injection Resp: no increased work of breathing MSK: no gross deformities appreciated Skin: warm, dry, no rash appreciated Neuro: alert, oriented, no focal neurologic deficit appreciated Results & Data Results & Data ([facility]) Vital Signs (Past 12 Hours) Vital Signs Temp Pulse Resp BP Pulse Ox O2 Del Method 09/22/22 07:23 36.6 C 65 18 149/79 H 94 Room Air
[2022-09-22] MEDS: MELATONIN 3 MG TAB PO SCH (20:19)
--- NOTE | 2022-09-23 06:58 | Hospitalist Progress Note ---
Date of Service September 23, 2022 Assessment & Plan (1) Acute alteration in mental status: Plan: Pt is a 71 yo male with PMH of intracranial hemorrhage, alcohol induced cirrhosis, atrial fibrillation, insomnia, gout, carotid artery stenosis, COPD, who was admitted to the hospital for altered mental status. His presentation was unchanged from previous admission. His confusion is secondary to hepatic encephalopathy with possible component of superimposed delirium. Altered Mental Status: 2/2 Hepatic Encephalopathy w/ Superimposed Hyperactive Delirium Baseline mentation - struggles with word finding but is able to communicate more fully and can perform some of his daily activities of living independently. - Know hx of alcoholic cirrhosis with previous HE - Admitted 07/22/2022 d/t hyperammonemia of 156 - CT Head (08/12) and CXR (07/22) w/o acute change - Blood cx 08/12 neg - Continue melatonin 3mg q1800 daily - Delirium precautions ongoing - Continue lactulose, rifaximin. Goal of 3-4 BMs per day - Pt with acute mental status change likely secondary to hyperactive delirium - still having consistent BM, ammonia= 92 - one to one ordered per nursing discretion - UA negative - Started on Seroquel per pysch recommendations, continue 12.5 qAM and 25 qHS Hypokalemia - likely secondary to lasix, lisinopril - On 10meq K daily Hyperbilirubinemia - Pt with elevated bilirubin at 4.8 secondary to chronic liver disease - Lipase and LFT's are within baseline - US liver showed nonvisualization of the gallbladder and common bile duct as well as cirrhosis w/o hepatic mass - Bilirubin stable; continues to stabilize/down trend Hyponatremia - resolved Alcoholic Liver Cirrhosis - MELD 18 upon admission - Lasix 40 mg Atrial Fibrillation - Not on anticoagulation due to recent intraparenchymal hemorrhage - Episodes of irregular rhythm Hypertension - Continue home lisinopril 5 mg Hx of Intracranial Hemorrhage - Continue levetiracetam Deconditioning - PT recommends 24/7 care either at SNF or at home with home health depending on family choice - 08/17 PT noted failure to progress beyond requirement of 24 hour supervision: recommended 24 hour care, PCF, and return home - pt originally to go to [facility] 08/19 - Pending placement: per CM, insurance denied SNF. CM continuing to look for other placement. GERD - Continue Protonix COPD - Continue home inhaler (2) Alcoholic cirrhosis of liver: (3) GERD (gastroesophageal reflux disease): (4) Hypertension: (5) COPD (chronic obstructive pulmonary disease): (6) Patient unarousable: (7) Asymptomatic bacteriuria: Plan Diet:Fully alert -minced and moist; less alert -pureed DVT ppx:SCDs only d/t intracranial hemorrhage hx Dispo:pending snf placement, insurance denied SNF placement Code Status:DNR/DNI Admission and Anticipated Discharge Date Admission Date: July 23, 2022 Supervising Physician Co-Signing Physician Notes I personally examined the patient and verified all lebron points of history and exam, discussed case, and agree with decision making with Dr Claros sitting by window looking out vitals noted nad heent nc at mmm breathing unlabored no accessory muscles good effort skin no rashes no pallor or icterus delirium likely multifactorial in the setting of prolonged hospitalization. hepatic encephalopathy Psychiatry consult appreciated Increased Seroquel to 12.5 mg in a.m. and 25 mg p.o. nightly awaiting placement Additional per resident documentation Douglas Monzon is a 71 y/o male with PMH of intracranial hemorrhage, alcohol induced cirrhosis, atrial fibrillation, insomnia, gout, carotid artery stenosis, COPD, who was admitted to the hospital for altered mental status. His presentation was unchanged from previous admission. His confusion is secondary to hepatic encephalopathy with possible component of superimposed delirium. Doing well this morning, without complaint.. Aggiatioan somewhat improved from prior days. Was up and walking around room. Continues to have consistent bowel movements. Review of Systems Review of Systems: As per HPI Physical Exam Physical Exam: Constitutional: well-appearing, no acute distress HEENT: NCAT, no conjunctival injection Resp: no increased work of breathing MSK: no gross deformities appreciated Skin: warm, dry, no rash appreciated Neuro: alert, oriented, no focal neurologic deficit appreciated Results & Data Results & Data ([facility]) Vital Signs (Past 12 Hours) Vital Signs Temp Pulse Resp BP Pulse Ox O2 Del Method 09/22/22 21:57 130/66 09/22/22 21:16 36.5 C 72 18 98/58 L 96 Room Air
[2022-09-23] MEDS: LACTULOSE SYRUP 30 GM/45 ML UDP PO SCH ×4 (07:39→20:20)
[2022-09-23] MEDS: QUEtiapine FUMARATE 25 MG TABLET PO SCH ×2 (07:40→20:19)
[2022-09-23] MEDS: rifAXIMin 550 MG TABLET PO SCH ×2 (07:40→20:19)
[2022-09-23] MEDS: THIAMINE HCL 100 MG TAB PO SCH (07:40)
[2022-09-23] MEDS: FERROUS SULFATE 325 MG TAB PO SCH ×2 (07:40→20:20)
[2022-09-23] MEDS: PANTOprazole 40 MG TAB PO SCH ×2 (07:40→20:19)
[2022-09-23] MEDS: lisinopril 5 MG TAB PO SCH (07:40)
[2022-09-23] MEDS: MULTIVITAMIN TAB PO SCH (07:40)
[2022-09-23] MEDS: FUROSEMIDE 40 MG TAB PO SCH ×2 (07:41→16:36)
[2022-09-23] MEDS: CHOLECALCIFEROL 1,000 UNITS 25 MCG TAB PO SCH (07:41)
[2022-09-23] MEDS: levETIRAcetam 500 MG TAB PO SCH ×2 (07:41→20:19)
[2022-09-23] MEDS: UMECLIDINIUM/VILANTEROL 62.5/25MCG 7 PUFFS/INHALER INH SCH (07:41)
[2022-09-23] MEDS: POTASSIUM CHLORIDE 10 MEQ TABCR PO SCH (07:41)
[2022-09-23] MEDS: LACTULOSE 200GM/700ML WTR ENEMA PR SCH (10:29)
--- NOTE | 2022-09-23 19:54 | Billing Data ---
Date of Service September 23, 2022 Coding Level of Care Code 18530 Subseq Hosp Care Lvl 1
[2022-09-23] MEDS: MELATONIN 3 MG TAB PO SCH (20:19)
--- NOTE | 2022-09-24 08:10 | Hospitalist Progress Note ---
Date of Service September 24, 2022 Assessment & Plan (1) Acute alteration in mental status: Plan: Pt is a 71 yo male with PMH of intracranial hemorrhage, alcohol induced cirrhosis, atrial fibrillation, insomnia, gout, carotid artery stenosis, COPD, who was admitted to the hospital for altered mental status. His presentation was unchanged from previous admission. His confusion is secondary to hepatic encephalopathy with possible component of superimposed delirium. Altered Mental Status: 2/2 Hepatic Encephalopathy w/ Superimposed Hyperactive Delirium Baseline mentation - struggles with word finding but is able to communicate more fully and can perform some of his daily activities of living independently. - Know hx of alcoholic cirrhosis with previous HE - Admitted 07/22/2022 d/t hyperammonemia of 156 - CT Head (08/12) and CXR (07/22) w/o acute change - Blood cx 08/12 neg - Continue melatonin 3mg q1800 daily - Delirium precautions ongoing - Continue lactulose, rifaximin. Goal of 3-4 BMs per day - Pt with acute mental status change likely secondary to hyperactive delirium - still having consistent BM, ammonia= 92 - one to one ordered per nursing discretion - UA negative - Started on Seroquel per pysch recommendations, continue 12.5 qAM and 25 qHS - Agitation is improving Hypokalemia - likely secondary to lasix, lisinopril - On 10meq K daily Hyperbilirubinemia - Pt with elevated bilirubin at 4.8 secondary to chronic liver disease - Lipase and LFT's are within baseline - US liver showed nonvisualization of the gallbladder and common bile duct as well as cirrhosis w/o hepatic mass - Bilirubin stable; continues to stabilize/down trend Hyponatremia - resolved Alcoholic Liver Cirrhosis - MELD 18 upon admission - Lasix 40 mg Atrial Fibrillation - Not on anticoagulation due to recent intraparenchymal hemorrhage - Episodes of irregular rhythm Hypertension - Continue home lisinopril 5 mg Hx of Intracranial Hemorrhage - Continue levetiracetam Deconditioning - PT recommends 24/7 care either at SNF or at home with home health depending on family choice - 08/17 PT noted failure to progress beyond requirement of 24 hour supervision: recommended 24 hour care, PCF, and return home - pt originally to go to [facility] 08/19 - Pending placement: per CM, insurance denied SNF. CM continuing to look for other placement. GERD - Continue Protonix COPD - Continue home inhaler (2) Alcoholic cirrhosis of liver: (3) GERD (gastroesophageal reflux disease): (4) Hypertension: (5) COPD (chronic obstructive pulmonary disease): (6) Patient unarousable: (7) Asymptomatic bacteriuria: Plan Diet:Fully alert -minced and moist; less alert -pureed DVT ppx:SCDs only d/t intracranial hemorrhage hx Dispo:pending [facility], insurance denied SNF placement Code Status:DNR/DNI Admission and Anticipated Discharge Date Admission Date: July 23, 2022 Supervising Physician Co-Signing Physician Notes I personally examined the patient and verified all lebron points of history and exam, discussed case, and agree with decision making with Dr Claros sitting by window looking out again vitals noted nad heent nc at mmm breathing unlabored no accessory muscles good effort skin no rashes no pallor or icterus delirium likely multifactorial in the setting of prolonged hospitalization. hepatic encephalopathy Psychiatry consult appreciated continue seroquel awaiting placement Additional per resident documentation Douglas Monzon is a 71 y/o male with PMH of intracranial hemorrhage, alcohol induced cirrhosis, atrial fibrillation, insomnia, gout, carotid artery stenosis, COPD, who was admitted to the hospital for altered mental status. His presentation was unchanged from previous admission. His confusion is secondary to hepatic encephalopathy with possible component of superimposed delirium. Doing well this morning, without complaint.. was eating his breakfast when I saw him this morning. Mood better than prior days. Continues to have consistent bowel movements. Review of Systems Review of Systems: As per HPI Physical Exam Physical Exam: Constitutional: well-appearing, no acute distress HEENT: NCAT, no conjunctival injection Resp: no increased work of breathing, lungs CTA B/L Cardio: RRR without murmur MSK: no gross deformities appreciated Skin: warm, dry, no rash appreciated Neuro: alert, oriented, no focal neurologic deficit appreciated Results & Data Results & Data ([facility]) Vital Signs (Past 12 Hours) Vital Signs Temp Pulse Resp BP BP Pulse Ox O2 Del Method 09/23/22 21:39 108/53 L 09/23/22 21:35 37.2 C 73 16 92/52 L 93 Room Air Resident Activity Tracking Resident Involvement: Resident Care Provided Care Provided: Adult Hospital Medicine
[2022-09-24] MEDS: levETIRAcetam 500 MG TAB PO SCH ×2 (08:19→20:23)
[2022-09-24] MEDS: rifAXIMin 550 MG TABLET PO SCH ×2 (08:19→20:22)
[2022-09-24] MEDS: QUEtiapine FUMARATE 25 MG TABLET PO SCH ×2 (08:20→20:23)
[2022-09-24] MEDS: FUROSEMIDE 40 MG TAB PO SCH ×2 (08:21→17:41)
[2022-09-24] MEDS: CHOLECALCIFEROL 1,000 UNITS 25 MCG TAB PO SCH (08:21)
[2022-09-24] MEDS: lisinopril 5 MG TAB PO SCH (08:21)
[2022-09-24] MEDS: POTASSIUM CHLORIDE 10 MEQ TABCR PO SCH (08:22)
[2022-09-24] MEDS: PANTOprazole 40 MG TAB PO SCH ×2 (08:22→20:22)
[2022-09-24] MEDS: MULTIVITAMIN TAB PO SCH (08:22)
[2022-09-24] MEDS: THIAMINE HCL 100 MG TAB PO SCH (08:23)
[2022-09-24] MEDS: LACTULOSE SYRUP 30 GM/45 ML UDP PO SCH ×4 (08:24→20:23)
[2022-09-24] MEDS: UMECLIDINIUM/VILANTEROL 62.5/25MCG 7 PUFFS/INHALER INH SCH (08:24)
--- NOTE | 2022-09-24 09:16 | Communication Note ---
Date of Service: September 24, 2022 Interim progress reviewed, taking Seroquel low dose BID, no IMs, communication difficulties at baseline, oriented to self. CM assisting with placement. No additional recs at this time.
[2022-09-24] MEDS: FERROUS SULFATE 325 MG TAB PO SCH ×2 (09:19→20:23)
--- NOTE | 2022-09-24 19:31 | Billing Data ---
Date of Service September 24, 2022 Coding Level of Care Code 80236 Subseq Hosp Care Lvl 1
[2022-09-24] MEDS: MELATONIN 3 MG TAB PO SCH (20:23)
--- NOTE | 2022-09-25 07:43 | Hospitalist Progress Note ---
Date of Service September 25, 2022 Assessment & Plan (1) Acute alteration in mental status: Plan: Pt is a 71 yo male with PMH of intracranial hemorrhage, alcohol induced cirrhosis, atrial fibrillation, insomnia, gout, carotid artery stenosis, COPD, who was admitted to the hospital for altered mental status. His presentation was unchanged from previous admission. His confusion is secondary to hepatic encephalopathy with possible component of superimposed delirium. Altered Mental Status: 2/2 Hepatic Encephalopathy w/ Superimposed Hyperactive Delirium Baseline mentation - struggles with word finding but is able to communicate more fully and can perform some of his daily activities of living independently. - Know hx of alcoholic cirrhosis with previous HE - Admitted 07/22/2022 d/t hyperammonemia of 156 - CT Head (08/12) and CXR (07/22) w/o acute change - Blood cx 08/12 neg - Continue melatonin 3mg q1800 daily - Delirium precautions ongoing - Continue lactulose, rifaximin. Goal of 3-4 BMs per day - Pt with acute mental status change likely secondary to hyperactive delirium - still having consistent BM, ammonia= 92 - one to one ordered per nursing discretion - UA negative - Started on Seroquel per pysch recommendations, continue 12.5 qAM and 25 qHS - Agitation is improving - Continuing to work with case management to find placement Hypokalemia - likely secondary to lasix, lisinopril - On 10meq K daily Hyperbilirubinemia - Pt with elevated bilirubin at 4.8 secondary to chronic liver disease - Lipase and LFT's are within baseline - US liver showed nonvisualization of the gallbladder and common bile duct as well as cirrhosis w/o hepatic mass - Bilirubin stable; continues to stabilize/down trend Hyponatremia - resolved Alcoholic Liver Cirrhosis - MELD 18 upon admission - Lasix 40 mg Atrial Fibrillation - Not on anticoagulation due to recent intraparenchymal hemorrhage - Episodes of irregular rhythm Hypertension - Continue home lisinopril 5 mg Hx of Intracranial Hemorrhage - Continue levetiracetam Deconditioning - PT recommends 24/7 care either at SNF or at home with home health depending on family choice - 08/17 PT noted failure to progress beyond requirement of 24 hour supervision: recommended 24 hour care, PCF, and return home - pt originally to go to [facility] 08/19 - Pending placement: per CM, insurance denied SNF. CM continuing to look for other placement. GERD - Continue Protonix COPD - Continue home inhaler (2) Alcoholic cirrhosis of liver: (3) GERD (gastroesophageal reflux disease): (4) Hypertension: (5) COPD (chronic obstructive pulmonary disease): (6) Patient unarousable: (7) Asymptomatic bacteriuria: Plan Diet:Fully alert -minced and moist; less alert -pureed DVT ppx:SCDs only d/t intracranial hemorrhage hx Dispo:pending skilled nursing placement, insurance denied SNF placement Code Status:DNR/DNI Admission and Anticipated Discharge Date Admission Date: July 23, 2022 Supervising Physician Co-Signing Physician Notes I personally examined the patient and verified all lebron points of history and exam, discussed case, and agree with decision making with Dr Claros eating lunch. pleasant. a bit nonsensical in conversation vitals noted nad heent nc at mmm breathing unlabored no accessory muscles good effort skin no rashes no pallor or icterus delirium likely multifactorial in the setting of prolonged hospitalization. hepatic encephalopathy Psychiatry consult appreciated continue seroquel awaiting placement, stable when bed available Additional per resident documentation Douglas Monzon is a 71 y/o male with PMH of intracranial hemorrhage, alcohol induced cir rhosis, atrial fibrillation, insomnia, gout, carotid artery stenosis, COPD, who was admitted to the hospital for altered mental status. His presentation was unchanged from previous admission. His confusion is secondary to hepatic encephalopathy with possible component of superimposed delirium. Doing well this morning, without complaint. Pleasantly eating breakfast this morning. Continues to have consistent bowel movements. Review of Systems Review of Systems: As per HPI Physical Exam Physical Exam: Constitutional: well-appearing, no acute distress HEENT: NCAT, no conjunctival injection Resp: no increased work of breathing, lungs CTA B/L Cardio: RRR without murmur MSK: no gross deformities appreciated Skin: warm, dry, no rash appreciated Neuro: alert, oriented, no focal neurologic deficit appreciated Results & Data Results & Data ([facility]) Vital Signs (Past 12 Hours) Vital Signs Temp Pulse Resp BP BP Pulse Ox O2 Del Method 09/25/22 07:10 36.4 C L 72 17 136/76 93 Room Air 09/24/22 22:57 36.5 C 72 16 124/78 93 Room Air Resident Activity Tracking Resident Involvement: Resident Care Provided Care Provided: Adult Hospital Medicine
[2022-09-25] MEDS: PANTOprazole 40 MG TAB PO SCH ×2 (08:21→20:52)
[2022-09-25] MEDS: QUEtiapine FUMARATE 25 MG TABLET PO SCH ×2 (08:21→20:51)
[2022-09-25] MEDS: FUROSEMIDE 40 MG TAB PO SCH ×2 (08:21→18:14)
[2022-09-25] MEDS: FERROUS SULFATE 325 MG TAB PO SCH ×2 (08:21→20:51)
[2022-09-25] MEDS: CHOLECALCIFEROL 1,000 UNITS 25 MCG TAB PO SCH (08:21)
[2022-09-25] MEDS: levETIRAcetam 500 MG TAB PO SCH ×2 (08:21→20:52)
[2022-09-25] MEDS: LACTULOSE SYRUP 30 GM/45 ML UDP PO SCH ×4 (08:21→20:50)
[2022-09-25] MEDS: MULTIVITAMIN TAB PO SCH (08:21)
[2022-09-25] MEDS: lisinopril 5 MG TAB PO SCH (08:21)
[2022-09-25] MEDS: POTASSIUM CHLORIDE 10 MEQ TABCR PO SCH (08:21)
[2022-09-25] MEDS: UMECLIDINIUM/VILANTEROL 62.5/25MCG 7 PUFFS/INHALER INH SCH (08:22)
[2022-09-25] MEDS: rifAXIMin 550 MG TABLET PO SCH ×2 (08:22→20:51)
[2022-09-25] MEDS: THIAMINE HCL 100 MG TAB PO SCH (08:22)
[2022-09-25] MEDS: LACTULOSE 200GM/700ML WTR ENEMA PR SCH (10:11)
--- NOTE | 2022-09-25 18:07 | Billing Data ---
Date of Service September 25, 2022 Coding Level of Care Code 30345 Subseq Hosp Care Lvl 1
--- NOTE | 2022-09-25 18:08 | Billing Data ---
Date of Service September 25, 2022 Coding Level of Care Code 47761 Subseq Hosp Care Lvl 1
[2022-09-25] MEDS: MELATONIN 3 MG TAB PO SCH (20:51)
--- NOTE | 2022-09-26 08:05 | Hospitalist Progress Note ---
Date of Service September 26, 2022 Assessment & Plan (1) Acute alteration in mental status: Plan: Pt is a 71 yo male with PMH of intracranial hemorrhage, alcohol induced cirrhosis, atrial fibrillation, insomnia, gout, carotid artery stenosis, COPD, who was admitted to the hospital for altered mental status. His presentation was unchanged from previous admission. His confusion is secondary to hepatic encephalopathy with possible component of superimposed delirium. Altered Mental Status: 2/2 Hepatic Encephalopathy w/ Superimposed Hyperactive Delirium Baseline mentation - struggles with word finding but is able to communicate more fully and can perform some of his daily activities of living independently. - Know hx of alcoholic cirrhosis with previous HE - Admitted 07/22/2022 d/t hyperammonemia of 156 - CT Head (08/12) and CXR (07/22) w/o acute change - Blood cx 08/12 neg - Continue melatonin 3mg q1800 daily - Delirium precautions ongoing - Continue lactulose, rifaximin. Goal of 3-4 BMs per day - Pt with acute mental status change likely secondary to hyperactive delirium - still having consistent BM, ammonia= 92 - one to one ordered per nursing discretion - UA negative - Started on Seroquel per pysch recommendations, continue 12.5 qAM and 25 qHS - Agitation is improving - Continuing to work with case management to find placement Hypokalemia - likely secondary to lasix, lisinopril - On 10meq K daily Hyperbilirubinemia - Pt with elevated bilirubin at 4.8 secondary to chronic liver disease - Lipase and LFT's are within baseline - US liver showed nonvisualization of the gallbladder and common bile duct as well as cirrhosis w/o hepatic mass - Bilirubin stable; continues to stabilize/down trend Hyponatremia - resolved Alcoholic Liver Cirrhosis - MELD 18 upon admission - Lasix 40 mg Atrial Fibrillation - Not on anticoagulation due to recent intraparenchymal hemorrhage - Episodes of irregular rhythm Hypertension - Continue home lisinopril 5 mg Hx of Intracranial Hemorrhage - Continue levetiracetam Deconditioning - PT recommends 24/7 care either at SNF or at home with home health depending on family choice - 08/17 PT noted failure to progress beyond requirement of 24 hour supervision: recommended 24 hour care, PCF, and return home - pt originally to go to [facility] 08/19 - Pending placement: per CM, insurance denied SNF. CM continuing to look for other placement. GERD - Continue Protonix COPD - Continue home inhaler (2) Alcoholic cirrhosis of liver: (3) GERD (gastroesophageal reflux disease): (4) Hypertension: (5) COPD (chronic obstructive pulmonary disease): (6) Patient unarousable: (7) Asymptomatic bacteriuria: Plan Diet:Fully alert -minced and moist; less alert -pureed DVT ppx:SCDs only d/t intracranial hemorrhage hx Dispo:pending fci placement, insurance denied SNF placement Code Status:DNR/DNI Admission and Anticipated Discharge Date Admission Date: July 23, 2022 Supervising Physician Co-Signing Physician Notes I personally examined the patient and verified all lebron points of history and exam, discussed case, and agree with decision making with Dr Claros no complaints vitals noted nad heent nc at mmm breathing unlabored no accessory muscles good effort skin no rashes no pallor or icterus delirium likely multifactorial in the setting of prolonged hospitalization. hepatic encephalopathy Psychiatry consult appreciated continue seroquel awaiting placement, stable when bed available Additional per resident documentation Douglas Monzon is a 71 y/o male with PMH of intracranial hemorrhage, alcohol induced cirrhosis, atrial fibrillation, insomnia, gout, carotid artery stenosis, COPD, who was admitted to the hospital for altered mental status. His presentation was unchanged from previous admission. His confusion is secondary to hepatic encephalopathy with possible component of superimposed delirium. Doing well this morning, without complaint. Pleasant. Resting comfortbaly in bed. Review of Systems Review of Systems: As per HPI Physical Exam Physical Exam: Constitutional: well-appearing, no acute distress HEENT: NCAT, no conjunctival injection Resp: no increased work of breathing, lungs CTA B/L Cardio: RRR without murmur MSK: no gross deformities appreciated Skin: warm, dry, no rash appreciated Neuro: alert, oriented, no focal neurologic deficit appreciated Results & Data Results & Data ([facility]) Vital Signs (Past 12 Hours) Vital Signs Temp Pulse Resp BP BP Pulse Ox O2 Del Method 09/26/22 07:26 36.8 C 81 17 115/64 100 Room Air 09/25/22 22:08 36.6 C 69 18 121/62 94 Room Air Resident Activity Tracking Resident Involvement: Resident Care Provided Care Provided: Adult Hospital Medicine
[2022-09-26] MEDS: FUROSEMIDE 40 MG TAB PO SCH ×2 (08:09→17:51)
[2022-09-26] MEDS: PANTOprazole 40 MG TAB PO SCH ×2 (08:09→21:22)
[2022-09-26] MEDS: FERROUS SULFATE 325 MG TAB PO SCH ×2 (08:09→21:24)
[2022-09-26] MEDS: rifAXIMin 550 MG TABLET PO SCH ×2 (08:09→21:25)
[2022-09-26] MEDS: POTASSIUM CHLORIDE 10 MEQ TABCR PO SCH (08:09)
[2022-09-26] MEDS: CHOLECALCIFEROL 1,000 UNITS 25 MCG TAB PO SCH (08:09)
[2022-09-26] MEDS: levETIRAcetam 500 MG TAB PO SCH ×2 (08:09→21:24)
[2022-09-26] MEDS: THIAMINE HCL 100 MG TAB PO SCH (08:09)
[2022-09-26] MEDS: lisinopril 5 MG TAB PO SCH (08:09)
[2022-09-26] MEDS: MULTIVITAMIN TAB PO SCH (08:09)
[2022-09-26] MEDS: LACTULOSE SYRUP 30 GM/45 ML UDP PO SCH ×4 (08:10→21:23)
[2022-09-26] MEDS: QUEtiapine FUMARATE 25 MG TABLET PO SCH ×2 (09:17→21:23)
[2022-09-26] MEDS: UMECLIDINIUM/VILANTEROL 62.5/25MCG 7 PUFFS/INHALER INH SCH (09:17)
--- NOTE | 2022-09-26 17:35 | Billing Data ---
Date of Service September 26, 2022 Coding Level of Care Code 05701 Subseq Hosp Care Lvl 1
[2022-09-26] MEDS: MELATONIN 3 MG TAB PO SCH (21:25)
[2022-09-27] MEDS: rifAXIMin 550 MG TABLET PO SCH ×2 (07:23→20:01)
[2022-09-27] MEDS: FUROSEMIDE 40 MG TAB PO SCH ×2 (07:24→16:43)
[2022-09-27] MEDS: THIAMINE HCL 100 MG TAB PO SCH (07:24)
[2022-09-27] MEDS: MULTIVITAMIN TAB PO SCH (07:24)
[2022-09-27] MEDS: CHOLECALCIFEROL 1,000 UNITS 25 MCG TAB PO SCH (07:24)
[2022-09-27] MEDS: POTASSIUM CHLORIDE 10 MEQ TABCR PO SCH (07:24)
[2022-09-27] MEDS: QUEtiapine FUMARATE 25 MG TABLET PO SCH ×2 (07:24→20:01)
[2022-09-27] MEDS: lisinopril 5 MG TAB PO SCH (07:25)
[2022-09-27] MEDS: levETIRAcetam 500 MG TAB PO SCH ×2 (07:25→20:02)
[2022-09-27] MEDS: FERROUS SULFATE 325 MG TAB PO SCH ×2 (07:25→20:00)
[2022-09-27] MEDS: PANTOprazole 40 MG TAB PO SCH ×2 (07:25→20:01)
[2022-09-27] MEDS: LACTULOSE SYRUP 30 GM/45 ML UDP PO SCH ×4 (07:26→20:03)
[2022-09-27] MEDS: UMECLIDINIUM/VILANTEROL 62.5/25MCG 7 PUFFS/INHALER INH SCH (07:26)
--- NOTE | 2022-09-27 07:43 | Hospitalist Progress Note ---
Date of Service September 27, 2022 Assessment & Plan (1) Acute alteration in mental status: Plan: Pt is a 71 yo male with PMH of intracranial hemorrhage, alcohol induced cirrhosis, atrial fibrillation, insomnia, gout, carotid artery stenosis, COPD, who was admitted to the hospital for altered mental status. His presentation was unchanged from previous admission. His confusion is secondary to hepatic encephalopathy with possible component of superimposed delirium. Altered Mental Status: 2/2 Hepatic Encephalopathy w/ Superimposed Hyperactive Delirium Baseline mentation - struggles with word finding but is able to communicate more fully and can perform some of his daily activities of living independently. - Know hx of alcoholic cirrhosis with previous HE - Admitted 07/22/2022 d/t hyperammonemia of 156 - CT Head (08/12) and CXR (07/22) w/o acute change - Blood cx 08/12 neg - Continue melatonin 3mg q1800 daily - Delirium precautions ongoing - Continue lactulose, rifaximin. Goal of 3-4 BMs per day - Pt with acute mental status change likely secondary to hyperactive delirium - still having consistent BM, ammonia= 92 - one to one ordered per nursing discretion - UA negative - Started on Seroquel per pysch recommendations, continue 12.5 qAM and 25 qHS - Agitation is improving - Continuing to work with case management to find placement; referrals placed to a variety of facilities and on a few waiting lists Hypokalemia - likely secondary to lasix, lisinopril - On 10meq K daily Hyperbilirubinemia - Pt with elevated bilirubin at 4.8 secondary to chronic liver disease - Lipase and LFT's are within baseline - US liver showed nonvisualization of the gallbladder and common bile duct as well as cirrhosis w/o hepatic mass - Bilirubin stable; continues to stabilize/down trend Hyponatremia - resolved Alcoholic Liver Cirrhosis - MELD 18 upon admission - Lasix 40 mg Atrial Fibrillation - Not on anticoagulation due to recent intraparenchymal hemorrhage - Episodes of irregular rhythm Hypertension - Continue home lisinopril 5 mg Hx of Intracranial Hemorrhage - Continue levetiracetam Deconditioning - PT recommends 24/7 care either at SNF or at home with home health depending on family choice - 08/17 PT noted failure to progress beyond requirement of 24 hour supervision: recommended 24 hour care, PCF, and return home - pt originally to go to [facility] 08/19 - Pending placement: per CM, insurance denied SNF. CM continuing to look for other placement. GERD - Continue Protonix COPD - Continue home inhaler (2) Alcoholic cirrhosis of liver: (3) GERD (gastroesophageal reflux disease): (4) Hypertension: (5) COPD (chronic obstructive pulmonary disease): (6) Patient unarousable: (7) Asymptomatic bacteriuria: Plan Diet:Fully alert -minced and moist; less alert -pureed DVT ppx:SCDs only d/t intracranial hemorrhage hx Dispo:pending care home placement, insurance denied SNF placement Code Status:DNR/DNI Admission and Anticipated Discharge Date Admission Date: July 23, 2022 Supervising Physician Co-Signing Physician Notes I personally examined the patient and verified all lebron points of history and exam, discussed case, and agree with decision making with Dr Claros no complaints he is very happy today. We have a very pleasant conversation, although I am not entirely sure what we are talking about, I think it is where he used to live in the [facility]. vitals noted nad heent nc at mmm breathing unlabored no accessory muscles good effort skin no rashes no pallor or icterus delirium likely multifactorial in the setting of prolonged hospitalization. hepatic encephalopathy Psychiatry consult appreciated continue seroquel overall stable, no worrisome behaviors awaiting placement, stable when bed available Additional per resident documentation Subjective Nicolás is a 71 y/o male with PMH of intracranial hemorrhage, alcohol induced cirrhosis, atrial fibrillation, insomnia, gout, carotid artery stenosis, COPD, who was admitted to the hospital for altered mental status. His presentation was unchanged from previous admission. His confusion is secondary to hepatic encephalopathy with possible component of superimposed delirium. Nicolás is doing well today. Was finishing up breakfast when I saw him. No complaints. Review of Systems Review of Systems: As per HPI Physical Exam Physical Exam: Constitutional: well-appearing, no acute distress HEENT: NCAT, no conjunctival injection Resp: no increased work of breathing, lungs CTA B/L Cardio: RRR without murmur MSK: no gross deformities appreciated Skin: warm, dry, no rash appreciated Neuro: alert, oriented, no focal neurologic deficit appreciated Results & Data Results & [facility] ([facility]) Vital Signs (Past 12 Hours) Vital Signs Temp Pulse Resp BP Pulse Ox O2 Del Method 09/26/22 21:27 36.5 C 69 16 125/70 94 Room Air Resident Activity Tracking Resident Involvement: Resident Care Provided Care Provided: Adult Hospital Medicine
[2022-09-27] MEDS: LACTULOSE 200GM/700ML WTR ENEMA PR SCH (09:35)
[2022-09-27] MEDS: MELATONIN 3 MG TAB PO SCH (20:00)
--- NOTE | 2022-09-27 20:16 | Billing Data ---
Date of Service September 27, 2022 Coding Level of Care Code 44159 Subseq Hosp Care Lvl 1
--- NOTE | 2022-09-28 07:42 | Hospitalist Progress Note ---
Date of Service September 28, 2022 Assessment & Plan (1) Acute alteration in mental status: Plan: Nicolás is a 71 y/o male with PMH of intracranial hemorrhage, alcohol induced cirrhosis, atrial fibrillation, insomnia, gout, carotid artery stenosis, COPD, who was admitted to the hospital for altered mental status. His presentation was unchanged from previous admission. His confusion is secondary to hepatic encephalopathy with possible component of superimposed delirium who continues to await placement. #Altered Mental Status: 2/2 Hepatic Encephalopathy w/ Superimposed Hyperactive Delirium Baseline mentation - struggles with word finding but is able to communicate more fully and can perform some of his daily activities of living independently. Know hx of alcoholic cirrhosis with previous HE. Admitted 07/22/2022 d/t hyperammonemia of 156. CT Head (08/12) and CXR (07/22) w/o acute change. Blood cx 08/12 neg. UA negative. Recent CXR showed very slight worsening of interstitial pulmonary edema. No consolidations. No intervention necessary at this time. [] Continue melatonin 3mg q1800 daily [] Delirium precautions ongoing [] Continue lactulose, rifaximin. Goal of 3-4 BMs per day [] Pt with acute mental status change likely secondary to hyperactive delirium [] 1:1 per nursing discretion [] Seroquel per psych, 12.5 QAM 25 QHS - still having consistent BM, ammonia= 92 [] Continuing to work with case management to find placement; referrals placed to a variety of facilities and on a few waiting lists #Hypokalemia Likely secondary to lasix, lisinopril [] On 10meq K daily #Hyperbilirubinemia Pt with elevated bilirubin at 4.8 secondary to chronic liver disease. Lipase and LFT's are within baseline. US liver showed nonvisualization of the gallbladder and common bile duct as well as cirrhosis w/o hepatic mass. Bilirubin stable; continues to stabilize/down trend #Hyponatremia - resolved #Alcoholic Liver Cirrhosis MELD 18 upon admission [] Lasix 40 mg #Atrial Fibrillation Not on anticoagulation due to recent intraparenchymal hemorrhage. Episodes of irregular rhythm #Hypertension Continue home lisinopril 5 mg #Hx of Intracranial Hemorrhage Continue levetiracetam #Deconditioning PT recommends 24/7 care either at SNF or at home with home health depending on family choice - 08/17 PT noted failure to progress beyond requirement of 24 hour supervision: recommended 24 hour care, PCF, and return home - pt originally to go to [facility] 08/19 - Pending placement: per CM, insurance denied SNF. CM continuing to look for other placement. #GERD Continue Protonix #COPD Continue home inhaler Diet:Fully alert -minced and moist; less alert -pureed DVT ppx:SCDs only d/t intracranial hemorrhage hx Dispo:pending halfway placement, insurance denied SNF placement Code Status:DNR/DNI (2) Alcoholic cirrhosis of liver: (3) GERD (gastroesophageal reflux disease): (4) Hypertension: (5) COPD (chronic obstructive pulmonary disease): (6) Patient unarousable: (7) Asymptomatic bacteriuria: Admission and Anticipated Discharge Date Admission Date: July 23, 2022 Supervising Physician Co-Signing Physician Notes The patient was seen and examined by me. Case discussed with resident physician. Lungs are clear heart rhythm is regular. He is awaiting halfway placement. No new problems. Subjective Nicolás is doing well today. No complaints. Mental status unchanged. Review of Systems Review of Systems: As per HPI Physical Exam Constitutional: + altered mental status (unchanged) Eyes: + anicteric sclerae and EOM intact bilaterally ENMT: Mouth: + poor dentition Respiratory: normal respiratory effort, lungs clear to auscultation Cardiovascular: Rate/Rhythm: + irregularly irregular Heart Sounds: normal S1 and normal S2 Extremities: no edema Musculoskeletal: Extremities: extremities normal to inspection Skin: no rashes, warm and dry Results & Data Results & Data ([facility]) Vital Signs (Past 12 Hours) Vital Signs Temp Pulse Pulse Resp BP Pulse Ox O2 Del Method 09/27/22 20:10 Nasal Cannula 09/27/22 23:23 37.3 C 74 20 124/64 92 Nasal Cannula 09/27/22 19:53 36.7 C 88 18 129/71 94 Nasal Cannula O2 Flow Rate 09/27/22 20:10 2 09/27/22 23:23 2 09/27/22 19:53 4 Diagnostic Findings CXR 09/28/22 FINDINGS: Patient is rotated. No pneumothorax or pleural effusion is noted. There is pulmonary vascular congestion with mild interstitial pulmonary edema. No consolidation is identified. Cardiomegaly is unchanged. Multiple old right- sided rib deformities. IMPRESSION: Cardiomegaly. Mild interstitial pulmonary edema, slightly increased since prior exam. Resident Activity Tracking Resident Involvement: Resident Care Provided Care Provided: Adult Hospital Medicine
[2022-09-28] MEDS: UMECLIDINIUM/VILANTEROL 62.5/25MCG 7 PUFFS/INHALER INH SCH (07:57)
[2022-09-28] MEDS: FERROUS SULFATE 325 MG TAB PO SCH ×2 (07:58→20:05)
[2022-09-28] MEDS: THIAMINE HCL 100 MG TAB PO SCH (07:58)
[2022-09-28] MEDS: CHOLECALCIFEROL 1,000 UNITS 25 MCG TAB PO SCH (07:58)
[2022-09-28] MEDS: FUROSEMIDE 40 MG TAB PO SCH ×2 (07:59→16:48)
[2022-09-28] MEDS: QUEtiapine FUMARATE 25 MG TABLET PO SCH ×2 (07:59→20:06)
[2022-09-28] MEDS: POTASSIUM CHLORIDE 10 MEQ TABCR PO SCH (07:59)
[2022-09-28] MEDS: rifAXIMin 550 MG TABLET PO SCH ×2 (07:59→20:06)
[2022-09-28] MEDS: PANTOprazole 40 MG TAB PO SCH ×2 (07:59→20:05)
[2022-09-28] MEDS: LACTULOSE SYRUP 30 GM/45 ML UDP PO SCH ×4 (08:00→20:04)
[2022-09-28] MEDS: MULTIVITAMIN TAB PO SCH (08:00)
[2022-09-28] MEDS: levETIRAcetam 500 MG TAB PO SCH ×2 (08:00→20:06)
--- NOTE | 2022-09-28 10:14 | XRay Report ---
XR chest 1V portable CLINICAL HISTORY: oxygen requirement COMPARISON STUDY: Chest radiograph September 03, 2022. FINDINGS: Patient is rotated. No pneumothorax or pleural effusion is noted. There is pulmonary vascul ar congestion with mild interstitial pulmonary edema. No consolidation is identified. Cardiomegaly is unchanged. Multiple old right-sided rib deformities. IMPRESSION: Cardiomegaly. Mild interstitial pulmonary edema, slightly increased since prior exam. ACT 112: Negative or not required by law. Electronically signed by: Karthikeyan Rashid M.D. 09/28/2022 10:13 AM
[2022-09-28] MEDS: lisinopril 5 MG TAB PO SCH (11:04)
--- NOTE | 2022-09-28 14:05 | Billing Data ---
Date of Service September 28, 2022 Coding Level of Care Code 47622 Subseq Hosp Care Lvl 2
[2022-09-28] MEDS: MELATONIN 3 MG TAB PO SCH (20:05)
--- NOTE | 2022-09-29 07:17 | Hospitalist Progress Note ---
Date of Service September 29, 2022 Assessment & Plan (1) Acute alteration in mental status: Plan: Nicolás is a 71 y/o male with PMH of intracranial hemorrhage, alcohol induced cirrhosis, atrial fibrillation, insomnia, gout, carotid artery stenosis, COPD, who was admitted to the hospital for altered mental status. His presentation was unchanged from previous admission. His confusion is secondary to hepatic encephalopathy with possible component of superimposed delirium who continues to await placement. #Altered Mental Status: 2/2 Hepatic Encephalopathy w/ Superimposed Hyperactive Delirium Baseline mentation - struggles with word finding but is able to communicate more fully and can perform some of his daily activities of living independently. Know hx of alcoholic cirrhosis with previous HE. Admitted 07/22/2022 d/t hyperammonemia of 156. CT Head (08/12) and CXR (07/22) w/o acute change. Blood cx 08/12 neg. UA negative. Recent CXR showed very slight worsening of interstitial pulmonary edema. No consolidations. No intervention necessary at this time. [] Continue melatonin 3mg q1800 daily [] Delirium precautions ongoing [] Continue lactulose, rifaximin. Goal of 3-4 BMs per day [] 1:1 per nursing discretion [] Seroquel per psych, 12.5 QAM 25 QHS [] Continuing to work with case management to find placement; referrals placed to a variety of facilities and on a few waiting lists #Hypokalemia Likely secondary to lasix, lisinopril [] On 10meq K daily #Hyperbilirubinemia Pt with elevated bilirubin at 4.8 secondary to chronic liver disease. Lipase and LFT's are within baseline. US liver showed nonvisualization of the gallbladder and common bile duct as well as cirrhosis w/o hepatic mass. Bilirubin stable; continues to stabilize/down trend #Hyponatremia - resolved #Alcoholic Liver Cirrhosis MELD 18 upon admission [] Lasix 40 mg #Atrial Fibrillation Not on anticoagulation due to recent intraparenchymal hemorrhage. Episodes of irregular rhythm #Hypertension Continue home lisinopril 5 mg #Hx of Intracranial Hemorrhage Continue levetiracetam #Deconditioning PT recommends 24/7 care either at SNF or at home with home health depending on family choice - 08/17 PT noted failure to progress beyond requirement of 24 hour supervision: recommended 24 hour care, PCF, and return home - pt originally to go to [facility] 08/19 - Pending placement: per , insurance denied SNF. CM continuing to look for other placement. #GERD Continue Protonix #COPD Continue home inhaler Diet:Fully alert -minced and moist; less alert -pureed DVT ppx:SCDs only d/t intracranial hemorrhage hx Dispo:pending shelter placement, insurance denied SNF placement Code Status:DNR/DNI (2) Alcoholic cirrhosis of liver: (3) GERD (gastroesophageal reflux disease): (4) Hypertension: (5) COPD (chronic obstructive pulmonary disease): (6) Patient unarousable: (7) Asymptomatic bacteriuria: Admission and Anticipated Discharge Date Admission Date: July 23, 2022 Supervising Physician Co-Signing Physician Notes The patient was seen and examined by me. Case discussed with resident physician. Agree with assessment and plan. Lungs are clear heart rhythm is regular at this time. 94% oxygen saturation on 2 L oxygen per nasal cannula. He is awaiting shelter placement Subjective Nicolás is doing well today. No complaints. Mental status unchanged. Review of Systems Review of Systems: As per HPI Physical Exam Constitutional: + altered mental status (unchanged) Eyes: + anicteric sclerae and EOM intact bilaterally ENMT: Mouth: + poor dentition Respiratory: normal respiratory effort, lungs clear to auscultation Cardiovascular: Rate/Rhythm: + irregularly irregular Heart Sounds: normal S1 and normal S2 Extremities: no edema Musculoskeletal: Extremities: extremities normal to inspection Skin: no rashes, warm and dry Results & Data Results & Data ([facility]) Vital Signs (Past 12 Hours) Vital Signs Temp Pulse Resp BP Pulse Ox O2 Del Method O2 Flow Rate 09/29/22 07:06 36.6 C 78 16 145/63 H 94 Nasal Cannula 2 09/29/22 06:14 37.1 C 62 18 146/69 H 95 Nasal Cannula 2 09/29/22 05:17 86 L Room Air 09/29/22 05:20 36.7 C 76 93 Nasal Cannula 2 09/28/22 23:00 37.1 C 61 20 110/61 92 Room Air Laboratory Results 09/29/22 09/29/22 Range/Units 08:03 08:03 WBC 4.33 L (4.8-10.8) K/ul RBC 3.25 L (4.63-6.08) M/uL Hgb 11.8 L (14.0-18.0) g/dl Hct 34.4 L (40.1-51.0) % MCV 105.8 H (80.0-100.0) fL MCH 36.3 H (25.0-34.0) pg MCHC 34.3 (32.0-36.0) g/dL RDW Std Deviation 50.3 H (36.4-46.3) fL RDW Coeff of Ramses 12.8 (11.5-14.5) % Plt Count 97 L (130-400) K/uL MPV 10.3 (9.4-12.4) fL Sodium 139 (136-145) mmol/L Potassium 4.0 (3.5-5.1) mmol/L Chloride 107 (98-107) mmol/L Carbon Dioxide 26 (21-32) mmol/L Anion Gap 6 (3-11) BUN 18 (6-23) mg/dl Creatinine 0.87 (0.6-1.4) mg/dl Est Cr Clr Drug Dosing 73.0 ml/min Est GFR ( Amer) 100.6 ml/min Est GFR (Non-Af Amer) 86.8 ml/min BUN/Creatinine Ratio 20.7 H (10-20) Glucose 89 (70-99(Fasting)) mg/dl Calcium 7.6 L (8.5-10.1) mg/dl Total Bilirubin 2.5 H (0.2-1.0) mg/dl AST 30 (13-39) U/L ALT 13 (7-52) U/L Alkaline Phosphatase 118 H (34-104) U/L Total Protein 5.5 L (6.0-8.3) gm/dl Albumin 2.5 L (3.4-5.0) gm/dl Globulin 3.0 (2.5-4.0) gm/dl Albumin/Globulin Ratio 0.8 L (0.9-2) Resident Activity Tracking Resident Involvement: Resident Care Provided Care Provided: Adult Hospital Medicine
[2022-09-29] MEDS: FUROSEMIDE 40 MG TAB PO SCH ×2 (08:12→17:05)
[2022-09-29 08:14] LABS: Hematocrit (blood only) 34.4 % (40.1-51.0); Hemoglobin 11.8 g/dl (14.0-18.0); Mean Platelet Volume 10.3 fL (9.4-12.4); Platelet Count 97 K/uL (130-400); White Blood Count 4.33 K/ul (4.8-10.8)
[2022-09-29 08:36] LABS: Mean Corpuscular Hemoglobin 36.3 pg (25.0-34.0); Mean Corpuscular Hgb Conc 34.3 g/dL (32.0-36.0); Mean Corpuscular Volume 105.8 fL (80.0-100.0); RDW Coefficient of Variation 12.8 % (11.5-14.5); RDW Standard Deviation 50.3 fL (36.4-46.3); Red Blood Count 3.25 M/uL (4.63-6.08)
[2022-09-29 08:42] LABS: Albumin Globulin Ratio 0.8 (0.9-2); Albumin Level 2.5 gm/dl (3.4-5.0); BUN Creatinine Ratio 20.7 (10-20); Bilirubin,Total 2.5 mg/dl (0.2-1.0); Calcium 7.6 mg/dl (8.5-10.1); Est GFR (African American) 100.6 ml/min; Est GFR (Non-African American) 86.8 ml/min; Total Protein 5.5 gm/dl (6.0-8.3)
[2022-09-29] MEDS: PANTOprazole 40 MG TAB PO SCH ×2 (10:26→20:22)
[2022-09-29] MEDS: THIAMINE HCL 100 MG TAB PO SCH (10:26)
[2022-09-29] MEDS: POTASSIUM CHLORIDE 10 MEQ TABCR PO SCH (10:27)
[2022-09-29] MEDS: QUEtiapine FUMARATE 25 MG TABLET PO SCH ×2 (10:27→20:22)
[2022-09-29] MEDS: MULTIVITAMIN TAB PO SCH (10:28)
[2022-09-29] MEDS: CHOLECALCIFEROL 1,000 UNITS 25 MCG TAB PO SCH (10:28)
[2022-09-29] MEDS: lisinopril 5 MG TAB PO SCH (10:28)
[2022-09-29] MEDS: FERROUS SULFATE 325 MG TAB PO SCH ×2 (10:28→20:22)
[2022-09-29] MEDS: rifAXIMin 550 MG TABLET PO SCH ×2 (10:29→20:22)
[2022-09-29] MEDS: levETIRAcetam 500 MG TAB PO SCH ×2 (10:29→20:23)
[2022-09-29] MEDS: UMECLIDINIUM/VILANTEROL 62.5/25MCG 7 PUFFS/INHALER INH SCH (10:29)
[2022-09-29] MEDS: LACTULOSE SYRUP 30 GM/45 ML UDP PO SCH ×4 (10:29→20:22)
[2022-09-29] MEDS: LACTULOSE 200GM/700ML WTR ENEMA PR SCH (11:30)
--- NOTE | 2022-09-29 15:23 | Billing Data ---
Date of Service September 29, 2022 Coding Level of Care Code 11624 Subseq Hosp Care Lvl 2
[2022-09-29] MEDS: MELATONIN 3 MG TAB PO SCH (20:23)
--- NOTE | 2022-09-30 06:54 | Hospitalist Progress Note ---
Date of Service September 30, 2022 Assessment & Plan (1) Acute alteration in mental status: Plan: Nicolás is a 71 y/o male with PMH of intracranial hemorrhage, alcohol induced cirrhosis, atrial fibrillation, insomnia, gout, carotid artery stenosis, COPD, who was admitted to the hospital for altered mental status. His presentation was unchanged from previous admission. His confusion is secondary to hepatic encephalopathy with possible component of superimposed delirium who continues to await placement. #Altered Mental Status: 2/2 Hepatic Encephalopathy w/ Superimposed Hyperactive Delirium Baseline mentation - struggles with word finding but is able to communicate more fully and can perform some of his daily activities of living independently. Know hx of alcoholic cirrhosis with previous HE. Admitted 07/22/2022 d/t hyperammonemia of 156. CT Head (08/12) and CXR (07/22) w/o acute change. Blood cx 08/12 neg. UA negative. Recent CXR showed very slight worsening of interstitial pulmonary edema. No consolidations. No intervention necessary at this time. [] Continue melatonin 3mg q1800 daily [] Delirium precautions ongoing [] Continue lactulose, rifaximin. Goal of 3-4 BMs per day [] 1:1 per nursing discretion [] Seroquel per psych, 12.5 QAM 25 QHS [] Continuing to work with case management to find placement; referrals placed to a variety of facilities and on a few waiting lists #Hyperbilirubinemia Pt with elevated bilirubin at 4.8 secondary to chronic liver disease. Lipase and LFT's are within baseline. US liver showed nonvisualization of the gallbladder and common bile duct as well as cirrhosis w/o hepatic mass. Bilirubin stable; continues to stabilize/down trend #Hyponatremia - resolved #Alcoholic Liver Cirrhosis MELD 18 upon admission [] Lasix 40 mg #Atrial Fibrillation Not on anticoagulation due to recent intraparenchymal hemorrhage. Episodes of irregular rhythm #Hypertension Continue home lisinopril 5 mg #Hx of Intracranial Hemorrhage Continue levetiracetam #Deconditioning PT recommends 24/7 care either at SNF or at home with home health depending on family choice - 08/17 PT noted failure to progress beyond requirement of 24 hour supervision: recommended 24 hour care, PCF, and return home - pt originally to go to [facility] 08/19 - Pending placement: per CM, insurance denied SNF. CM continuing to look for other placement. #GERD Continue Protonix #COPD Continue home inhaler Diet:Fully alert -minced and moist; less alert -pureed DVT ppx:SCDs only d/t intracranial hemorrhage hx Dispo:pending retirement placement, insurance denied SNF placement Code Status:DNR/DNI (2) Alcoholic cirrhosis of liver: (3) GERD (gastroesophageal reflux disease): (4) Hypertension: (5) COPD (chronic obstructive pulmonary disease): (6) Patient unarousable: (7) Asymptomatic bacteriuria: Admission and Anticipated Discharge Date Admission Date: July 23, 2022 Supervising Physician Co-Signing Physician Notes Resident Physician Supervision Note: I independently interviewed and examined the patient and verified the lebron history and physical, reviewed labs and image studies and agree with resident findings and care plan. Subjective Patient was seen and examined at bedside. Patient was awake, mental status unchanged. Patient oriented to self only. Review of Systems Review of Systems: As per HPI Physical Exam Constitutional: WD/WN, vitals as above Neck: trachea midline, no thyromegaly Respiratory: normal respiratory effort, lungs clear to auscultation Cardiovascular: RRR, no murmur, no edema Gastrointestinal (Abdomen): normal bowel sounds, soft, nontender, no hepatosplenomegaly Skin: no rashes, warm and dry Results & Data Results & Data ([facility]) Vital Signs (Past 12 Hours) Vital Signs Temp Pulse Resp BP Pulse Ox O2 Del Method O2 Flow Rate 09/29/22 20:00 Nasal Cannula 2 09/29/22 19:32 36.7 C 77 18 118/66 93 Room Air Resident Activity Tracking Resident Involvement: Resident Care Provided Care Provided: Adult Hospital Medicine
[2022-09-30] MEDS: POTASSIUM CHLORIDE 10 MEQ TABCR PO SCH (08:10)
[2022-09-30] MEDS: FERROUS SULFATE 325 MG TAB PO SCH ×2 (08:10→19:50)
[2022-09-30] MEDS: THIAMINE HCL 100 MG TAB PO SCH (08:10)
[2022-09-30] MEDS: levETIRAcetam 500 MG TAB PO SCH ×2 (08:10→19:50)
[2022-09-30] MEDS: MULTIVITAMIN TAB PO SCH (08:10)
[2022-09-30] MEDS: lisinopril 5 MG TAB PO SCH (08:10)
[2022-09-30] MEDS: UMECLIDINIUM/VILANTEROL 62.5/25MCG 7 PUFFS/INHALER INH SCH (08:11)
[2022-09-30] MEDS: QUEtiapine FUMARATE 25 MG TABLET PO SCH ×2 (08:11→19:50)
[2022-09-30] MEDS: PANTOprazole 40 MG TAB PO SCH ×2 (08:11→19:50)
[2022-09-30] MEDS: FUROSEMIDE 40 MG TAB PO SCH ×2 (08:11→17:09)
[2022-09-30] MEDS: CHOLECALCIFEROL 1,000 UNITS 25 MCG TAB PO SCH (08:11)
[2022-09-30] MEDS: rifAXIMin 550 MG TABLET PO SCH ×2 (08:11→19:50)
[2022-09-30] MEDS: LACTULOSE SYRUP 30 GM/45 ML UDP PO SCH ×4 (08:13→19:50)
[2022-09-30] MEDS: MELATONIN 3 MG TAB PO SCH (19:49)
--- NOTE | 2022-10-01 07:41 | Hospitalist Progress Note ---
Date of Service October 01, 2022 Assessment & Plan (1) Acute alteration in mental status: Plan: Nicolás is a 71 y/o male with PMH of intracranial hemorrhage, alcohol induced cirrhosis, atrial fibrillation, insomnia, gout, carotid artery stenosis, COPD, who was admitted to the hospital for altered mental status. His presentation was unchanged from previous admission. His confusion is secondary to hepatic encephalopathy with possible component of superimposed delirium who continues to await placement. #Altered Mental Status: 2/2 Hepatic Encephalopathy w/ Superimposed Hyperactive Delirium Baseline mentation - struggles with word finding but is able to communicate more fully and can perform some of his daily activities of living independently. Know hx of alcoholic cirrhosis with previous HE. Admitted 07/22/2022 d/t hyperammonemia of 156. CT Head (08/12) and CXR (07/22) w/o acute change. Blood cx 08/12 neg. UA negative. Recent CXR showed very slight worsening of interstitial pulmonary edema. No consolidations. No intervention necessary at this time. [] Continue melatonin 3mg q1800 daily [] Delirium precautions ongoing [] Continue lactulose, rifaximin. Goal of 3-4 BMs per day [] 1:1 per nursing discretion [] Seroquel per psych, 12.5 QAM 25 QHS [] Continuing to work with case management to find placement; referrals placed to a variety of facilities and on a few waiting lists. No updates today. #Hyperbilirubinemia Pt with elevated bilirubin at 4.8 secondary to chronic liver disease. Lipase and LFT's are within baseline. US liver showed nonvisualization of the gallbladder and common bile duct as well as cirrhosis w/o hepatic mass. Bilirubin stable; continues to stabilize/down trend #Hyponatremia - resolved #Alcoholic Liver Cirrhosis MELD 18 upon admission [] Lasix 40 mg #Atrial Fibrillation Not on anticoagulation due to recent intraparenchymal hemorrhage. Episodes of irregular rhythm #Hypertension Continue home lisinopril 5 mg #Hx of Intracranial Hemorrhage Continue levetiracetam #Deconditioning PT recommends 24/7 care either at SNF or at home with home health depending on family choice - 08/17 PT noted failure to progress beyond requirement of 24 hour supervision: recommended 24 hour care, PCF, and return home - pt originally to go to [facility] 08/19 - Pending placement: per CM, insurance denied SNF. CM continuing to look for other placement. No updates today. #GERD Continue Protonix #COPD Continue home inhaler Diet:Fully alert -minced and moist; less alert -pureed DVT ppx:SCDs only d/t intracranial hemorrhage hx Dispo:pending prison placement, insurance denied SNF placement Code Status:DNR/DNI (2) Alcoholic cirrhosis of liver: (3) GERD (gastroesophageal reflux disease): (4) Hypertension: (5) COPD (chronic obstructive pulmonary disease): (6) Patient unarousable: (7) Asymptomatic bacteriuria: Admission and Anticipated Discharge Date Admission Date: July 23, 2022 Supervising Physician Co-Signing Physician Notes Resident Physician Supervision Note: I independently interviewed and examined the patient and verified the lebron history and physical, reviewed labs and image studies and agree with resident findings and care plan. Subjective Patient was seen and examined at bedside. Patient is at baseline, in no acute distress. No overnight events. Denies any pain or concerns today. Review of Systems Review of Systems: As per HPI Physical Exam Constitutional: WD/WN, vitals as above + altered mental status Eyes: + anicteric sclerae and EOM intact bilaterally ENMT: Mouth: + poor dentition Neck: trachea midline, no thyromegaly Respiratory: normal respiratory effort, lungs clear to auscultation Cardiovascular: RRR, no murmur, no edema Gastrointestinal (Abdomen): normal bowel sounds, soft, nontender, no hepatosplenomegaly Musculoskeletal: Extremities: extremities normal to inspection Skin: no rashes, warm and dry Results & Data Results & Data ([facility]) Vital Signs (Past 12 Hours) Vital Signs Temp Pulse Resp BP Pulse Ox O2 Del Method 10/01/22 07:27 36.7 C 70 18 124/74 96 Room Air 09/30/22 19:43 36.8 C 65 18 114/68 94 Room Air Resident Activity Tracking Resident Involvement: Resident Care Provided Care Provided: Adult Hospital Medicine
[2022-10-01] MEDS: lisinopril 5 MG TAB PO SCH (07:54)
[2022-10-01] MEDS: rifAXIMin 550 MG TABLET PO SCH ×2 (07:54→20:59)
[2022-10-01] MEDS: POTASSIUM CHLORIDE 10 MEQ TABCR PO SCH (07:54)
[2022-10-01] MEDS: CHOLECALCIFEROL 1,000 UNITS 25 MCG TAB PO SCH (07:55)
[2022-10-01] MEDS: levETIRAcetam 500 MG TAB PO SCH ×2 (07:55→20:59)
[2022-10-01] MEDS: FERROUS SULFATE 325 MG TAB PO SCH ×2 (07:55→20:59)
[2022-10-01] MEDS: FUROSEMIDE 40 MG TAB PO SCH ×2 (07:55→17:59)
[2022-10-01] MEDS: PANTOprazole 40 MG TAB PO SCH ×2 (07:55→20:59)
[2022-10-01] MEDS: THIAMINE HCL 100 MG TAB PO SCH (07:56)
[2022-10-01] MEDS: QUEtiapine FUMARATE 25 MG TABLET PO SCH ×2 (07:56→20:59)
[2022-10-01] MEDS: LACTULOSE SYRUP 30 GM/45 ML UDP PO SCH ×4 (07:56→21:00)
[2022-10-01] MEDS: MULTIVITAMIN TAB PO SCH (07:56)
[2022-10-01] MEDS: UMECLIDINIUM/VILANTEROL 62.5/25MCG 7 PUFFS/INHALER INH SCH (07:57)
[2022-10-01] MEDS: LACTULOSE 200GM/700ML WTR ENEMA PR SCH (10:33)
[2022-10-01] MEDS: MELATONIN 3 MG TAB PO SCH (20:59)
[2022-10-02] MEDS: FUROSEMIDE 40 MG TAB PO SCH ×2 (09:34→17:48)
[2022-10-02] MEDS: levETIRAcetam 500 MG TAB PO SCH ×2 (09:34→21:17)
[2022-10-02] MEDS: CHOLECALCIFEROL 1,000 UNITS 25 MCG TAB PO SCH (09:34)
[2022-10-02] MEDS: LACTULOSE SYRUP 30 GM/45 ML UDP PO SCH ×4 (09:34→20:19)
[2022-10-02] MEDS: FERROUS SULFATE 325 MG TAB PO SCH ×2 (09:34→20:21)
[2022-10-02] MEDS: POTASSIUM CHLORIDE 10 MEQ TABCR PO SCH (09:35)
[2022-10-02] MEDS: lisinopril 5 MG TAB PO SCH (09:35)
[2022-10-02] MEDS: THIAMINE HCL 100 MG TAB PO SCH (09:35)
[2022-10-02] MEDS: PANTOprazole 40 MG TAB PO SCH ×2 (09:35→20:21)
[2022-10-02] MEDS: MULTIVITAMIN TAB PO SCH (09:35)
[2022-10-02] MEDS: QUEtiapine FUMARATE 25 MG TABLET PO SCH ×2 (09:36→20:22)
[2022-10-02] MEDS: UMECLIDINIUM/VILANTEROL 62.5/25MCG 7 PUFFS/INHALER INH SCH (09:36)
[2022-10-02] MEDS: rifAXIMin 550 MG TABLET PO SCH ×2 (09:36→21:17)
--- NOTE | 2022-10-02 17:44 | Hospitalist Progress Note ---
Date of Service October 02, 2022 Assessment & Plan (1) Acute alteration in mental status: Plan: Nicolás is a 71 y/o male with PMH of intracranial hemorrhage, alcohol induced cirrhosis, atrial fibrillation, insomnia, gout, carotid artery stenosis, COPD, who was admitted to the hospital for altered mental status. His presentation was unchanged from previous admission. His confusion is secondary to hepatic encephalopathy with possible component of superimposed delirium who continues to await placement. #Altered Mental Status: 2/2 Hepatic Encephalopathy w/ Superimposed Hyperactive Delirium Baseline mentation - struggles with word finding but is able to communicate more fully and can perform some of his daily activities of living independently. Know hx of alcoholic cirrhosis with previous HE. Admitted 07/22/2022 d/t hyperammonemia of 156. CT Head (08/12) and CXR (07/22) w/o acute change. Blood cx 08/12 neg. UA negative. Recent CXR showed very slight worsening of interstitial pulmonary edema. No consolidations. No intervention necessary at this time. [] Continue melatonin 3mg q1800 daily [] Delirium precautions ongoing [] Continue lactulose, rifaximin. Goal of 3-4 BMs per day [] 1:1 per nursing discretion [] Seroquel per psych, 12.5 QAM 25 QHS [] Continuing to work with case management to find placement; referrals placed to a variety of facilities and on a few waiting lists. No updates today. #Hyperbilirubinemia Pt with elevated bilirubin at 4.8 secondary to chronic liver disease. Lipase and LFT's are within baseline. US liver showed nonvisualization of the gallbladder and common bile duct as well as cirrhosis w/o hepatic mass. Bilirubin stable; continues to stabilize/down trend #Hyponatremia - resolved #Alcoholic Liver Cirrhosis MELD 18 upon admission [] Lasix 40 mg #Atrial Fibrillation Not on anticoagulation due to recent intraparenchymal hemorrhage. Episodes of irregular rhythm #Hypertension Continue home lisinopril 5 mg #Hx of Intracranial Hemorrhage Continue levetiracetam #Deconditioning PT recommends 24/7 care either at SNF or at home with home health depending on family choice - 08/17 PT noted failure to progress beyond requirement of 24 hour supervision: recommended 24 hour care, PCF, and return home - pt originally to go to [facility] 08/19 - Pending placement: per CM, insurance denied SNF. CM continuing to look for other placement. No updates. #GERD Continue Protonix #COPD Continue home inhaler Diet:Fully alert -minced and moist; less alert -pureed DVT ppx:SCDs only d/t intracranial hemorrhage hx Dispo:pending [facility] placement, insurance denied SNF placement Code Status:DNR/DNI (2) Alcoholic cirrhosis of liver: (3) GERD (gastroesophageal reflux disease): (4) Hypertension: (5) COPD (chronic obstructive pulmonary disease): (6) Patient unarousable: (7) Asymptomatic bacteriuria: Admission and Anticipated Discharge Date Admission Date: July 23, 2022 Supervising Physician Co-Signing Physician Notes Resident Physician Supervision Note: I independently interviewed and examined the patient and verified the lebron history and physical, reviewed labs and image studies and agree with resident findings and care plan. Subjective Patient was seen and examined at bedside. Mental status at baseline. No acute concerns today. Review of Systems Review of Systems: As per HPI Physical Exam Constitutional: WD/WN, vitals as above + altered mental status Eyes: + anicteric sclerae and EOM intact bilaterally ENMT: Mouth: + poor dentition Neck: trachea midline, no thyromegaly Respiratory: normal respiratory effort, lungs clear to auscultation Cardiovascular: RRR, no murmur, no edema Heart Sounds: normal S1 and normal S2 Vessels: no JVD Extremities: no edema Gastrointestinal (Abdomen): normal bowel sounds, soft, nontender, no hepatosplenomegaly Musculoskeletal: Extremities: extremities normal to inspection Skin: no rashes, warm and dry Psychiatric: Orientation: oriented to person Results & Data Results & Data ([facility]) Vital Signs (Past 12 Hours) Vital Signs Temp Pulse Pulse Resp BP Pulse Ox O2 Del Method 10/02/22 15:31 36.4 C L 60 16 105/56 L 96 Room Air 10/02/22 07:10 36.7 C 77 15 144/66 H 94 Room Air Resident Activity Tracking Resident Involvement: Resident Care Provided Care Provided: Adult Hospital Medicine
[2022-10-02] MEDS: MELATONIN 3 MG TAB PO SCH (20:20)
--- NOTE | 2022-10-03 07:19 | Hospitalist Progress Note ---
Date of Service October 03, 2022 Assessment & Plan (1) Acute alteration in mental status: Plan: Nicolás is a 71 y/o male with PMH of intracranial hemorrhage, alcohol induced cirrhosis, atrial fibrillation, insomnia, gout, carotid artery stenosis, COPD, who was admitted to the hospital for altered mental status. His presentation was unchanged from previous admission. His confusion is secondary to hepatic encephalopathy with possible component of superimposed delirium who continues to await placement. #Altered Mental Status: 2/2 Hepatic Encephalopathy w/ Superimposed Hyperactive Delirium Baseline mentation - struggles with word finding but is able to communicate more fully and can perform some of his daily activities of living independently. Know hx of alcoholic cirrhosis with previous HE. Admitted 07/22/2022 d/t hyperammonemia of 156. CT Head (08/12) and CXR (07/22) w/o acute change. Blood cx 08/12 neg. UA negative. Recent CXR showed very slight worsening of interstitial pulmonary edema. No consolidations. No intervention necessary at this time. [] Continue melatonin 3mg q1800 daily [] Delirium precautions ongoing [] Continue lactulose, rifaximin. Goal of 3-4 BMs per day [] 1:1 per nursing discretion [] Seroquel per psych, 12.5 QAM 25 QHS [] Continuing to work with case management to find placement; referrals placed to a variety of facilities and on a few waiting lists. #Hyperbilirubinemia Pt with elevated bilirubin at 4.8 secondary to chronic liver disease. Lipase and LFT's are within baseline. US liver showed nonvisualization of the gallbladder and common bile duct as well as cirrhosis w/o hepatic mass. Bilirubin stable; continues to stabilize/down trend #Hyponatremia - resolved #Alcoholic Liver Cirrhosis MELD 18 upon admission [] Lasix 40 mg #Atrial Fibrillation Not on anticoagulation due to recent intraparenchymal hemorrhage. Episodes of irregular rhythm #Hypertension Continue home lisinopril 5 mg #Hx of Intracranial Hemorrhage Continue levetiracetam #Deconditioning PT recommends 24/7 care either at SNF or at home with home health depending on family choice - 08/17 PT noted failure to progress beyond requirement of 24 hour supervision: recommended 24 hour care, PCF, and return home - pt originally to go to [facility] 08/19 - Pending placement: per CM, insurance denied SNF. CM continuing to look for other placement. #GERD Continue Protonix #COPD Continue home inhaler Diet:Fully alert -minced and moist; less alert -pureed DVT ppx:SCDs only d/t intracranial hemorrhage hx Dispo:pending nursing home placement, insurance denied SNF placement Code Status:DNR/DNI (2) Alcoholic cirrhosis of liver: (3) GERD (gastroesophageal reflux disease): (4) Hypertension: (5) COPD (chronic obstructive pulmonary disease): (6) Patient unarousable: (7) Asymptomatic bacteriuria: Admission and Anticipated Discharge Date Admission Date: July 23, 2022 Supervising Physician Co-Signing Physician Notes Resident Physician Supervision Note: I independently interviewed and examined the patient and verified the lebron history and physical, reviewed labs and image studies and agree with resident findings and care plan. Subjective Patient seen and examined at bedside. No events overnight. Nicolás does not have any concerns today, is at baseline. Review of Systems Review of Systems: As per HPI Physical Exam Constitutional: WD/WN, vitals as above + altered mental status ENMT: Mouth: + poor dentition Neck: trachea midline, no thyromegaly Respiratory: normal respiratory effort, lungs clear to auscultation Cardiovascular: RRR, no murmur, no edema Gastrointestinal (Abdomen): normal bowel sounds, soft, nontender, no hepatosplenomegaly Skin: no rashes, warm and dry Psychiatric: Orientation: oriented to person Results & Data Results & Data ([facility]) Vital Signs (Past 12 Hours) Vital Signs Temp Pulse Resp BP Pulse Ox O2 Del Method 10/02/22 20:11 36.5 C 77 18 102/59 L 92 Room Air Resident Activity Tracking Resident Involvement: Resident Care Provided Care Provided: Adult Hospital Medicine
[2022-10-03] MEDS: FUROSEMIDE 40 MG TAB PO SCH ×2 (09:46→16:09)
[2022-10-03] MEDS: rifAXIMin 550 MG TABLET PO SCH ×2 (09:46→20:31)
[2022-10-03] MEDS: FERROUS SULFATE 325 MG TAB PO SCH ×2 (09:46→20:28)
[2022-10-03] MEDS: CHOLECALCIFEROL 1,000 UNITS 25 MCG TAB PO SCH (09:46)
[2022-10-03] MEDS: THIAMINE HCL 100 MG TAB PO SCH (09:46)
[2022-10-03] MEDS: POTASSIUM CHLORIDE 10 MEQ TABCR PO SCH (09:46)
[2022-10-03] MEDS: QUEtiapine FUMARATE 25 MG TABLET PO SCH ×2 (09:47→20:30)
[2022-10-03] MEDS: MULTIVITAMIN TAB PO SCH (09:47)
[2022-10-03] MEDS: levETIRAcetam 500 MG TAB PO SCH ×2 (09:48→20:28)
[2022-10-03] MEDS: PANTOprazole 40 MG TAB PO SCH ×2 (09:48→20:30)
[2022-10-03] MEDS: LACTULOSE SYRUP 30 GM/45 ML UDP PO SCH ×4 (09:57→20:27)
[2022-10-03] MEDS: UMECLIDINIUM/VILANTEROL 62.5/25MCG 7 PUFFS/INHALER INH SCH (09:57)
[2022-10-03] MEDS: lisinopril 5 MG TAB PO SCH (10:31)
[2022-10-03] MEDS: LACTULOSE 200GM/700ML WTR ENEMA PR SCH (10:33)
[2022-10-03] MEDS: MELATONIN 3 MG TAB PO SCH (20:30)
--- NOTE | 2022-10-04 06:51 | Hospitalist Progress Note ---
Date of Service October 04, 2022 Assessment & Plan (1) Acute alteration in mental status: Plan: Nicolás is a 71 y/o male with PMH of intracranial hemorrhage, alcohol induced cirrhosis, atrial fibrillation, insomnia, gout, carotid artery stenosis, COPD, who was admitted to the hospital for altered mental status. His presentation was unchanged from previous admission. His confusion is secondary to hepatic encephalopathy with possible component of superimposed delirium who continues to await placement. #Altered Mental Status: 2/2 Hepatic Encephalopathy w/ Superimposed Hyperactive Delirium Baseline mentation - struggles with word finding but is able to communicate more fully and can perform some of his daily activities of living independently. Know hx of alcoholic cirrhosis with previous HE. Admitted 07/22/2022 d/t hyperammonemia of 156. CT Head (08/12) and CXR (07/22) w/o acute change. Blood cx 08/12 neg. UA negative. Recent CXR showed very slight worsening of interstitial pulmonary edema. No consolidations. No intervention necessary at this time. [] Continue melatonin 3mg q1800 daily [] Delirium precautions ongoing [] Continue lactulose, rifaximin. Goal of 3-4 BMs per day [] 1:1 per nursing discretion [] Seroquel per psych, 12.5 QAM 25 QHS [] Continuing to work with case management to find placement; referrals placed to a variety of facilities and on a few waiting lists. #Hyperbilirubinemia Pt with elevated bilirubin at 4.8 secondary to chronic liver disease. Lipase and LFT's are within baseline. US liver showed nonvisualization of the gallbladder and common bile duct as well as cirrhosis w/o hepatic mass. Bilirubin stable; continues to stabilize/down trend #Hyponatremia - resolved #Alcoholic Liver Cirrhosis MELD 18 upon admission [] Lasix 40 mg #Atrial Fibrillation Not on anticoagulation due to recent intraparenchymal hemorrhage. Episodes of irregular rhythm #Hypertension Continue home lisinopril 5 mg #Hx of Intracranial Hemorrhage Continue levetiracetam #Deconditioning PT recommends 24/7 care either at SNF or at home with home health depending on family choice - 08/17 PT noted failure to progress beyond requirement of 24 hour supervision: recommended 24 hour care, PCF, and return home - pt originally to go to [facility] 08/19 - Pending placement: per CM, insurance denied SNF. CM continuing to look for other placement, no updates. #GERD Continue Protonix #COPD Continue home inhaler Diet:Fully alert -minced and moist; less alert -pureed DVT ppx:SCDs only d/t intracranial hemorrhage hx Dispo:pending long-term placement, insurance denied SNF placement. No updates from case management today. Code Status:DNR/DNI (2) Alcoholic cirrhosis of liver: (3) GERD (gastroesophageal reflux disease): (4) Hypertension: (5) COPD (chronic obstructive pulmonary disease): (6) Patient unarousable: (7) Asymptomatic bacteriuria: Admission and Anticipated Discharge Date Admission Date: July 23, 2022 Supervising Physician Co-Signing Physician Notes Resident Physician Supervision Note: I independently interviewed and examined the patient and verified the lebron history and physical, reviewed labs and image studies and agree with resident findings and care plan. Subjective Patient was seen and examined at bedside. Patient at baseline. Expresses no concerns or distress during interaction. Review of Systems Review of Systems: As per HPI Physical Exam Constitutional: WD/WN, vitals as above + altered mental status ENMT: Mouth: + poor dentition Neck: trachea midline, no thyromegaly Respiratory: Normal respiratory effor Cardiovascular: RRR, no murmur, no edema Musculoskeletal: Extremities: extremities normal to inspection Skin: no rashes, warm and dry Results & Data Results & Data ([facility]) Vital Signs (Past 12 Hours) Vital Signs Temp Pulse Resp BP Pulse Ox O2 Del Method 10/03/22 20:47 36.8 C 62 18 119/55 L 94 Room Air Resident Activity Tracking Resident Involvement: Resident Care Provided Care Provided: Adult Hospital Medicine
[2022-10-04] MEDS: levETIRAcetam 500 MG TAB PO SCH ×2 (10:32→20:54)
[2022-10-04] MEDS: FUROSEMIDE 40 MG TAB PO SCH ×2 (10:32→17:09)
[2022-10-04] MEDS: UMECLIDINIUM/VILANTEROL 62.5/25MCG 7 PUFFS/INHALER INH SCH (10:32)
[2022-10-04] MEDS: CHOLECALCIFEROL 1,000 UNITS 25 MCG TAB PO SCH (10:32)
[2022-10-04] MEDS: LACTULOSE SYRUP 30 GM/45 ML UDP PO SCH ×4 (10:32→20:54)
[2022-10-04] MEDS: FERROUS SULFATE 325 MG TAB PO SCH ×2 (10:32→20:54)
[2022-10-04] MEDS: PANTOprazole 40 MG TAB PO SCH ×2 (10:33→20:54)
[2022-10-04] MEDS: MULTIVITAMIN TAB PO SCH (10:33)
[2022-10-04] MEDS: QUEtiapine FUMARATE 25 MG TABLET PO SCH ×2 (10:33→20:55)
[2022-10-04] MEDS: POTASSIUM CHLORIDE 10 MEQ TABCR PO SCH (10:33)
[2022-10-04] MEDS: lisinopril 5 MG TAB PO SCH (10:33)
[2022-10-04] MEDS: THIAMINE HCL 100 MG TAB PO SCH (10:34)
[2022-10-04] MEDS: rifAXIMin 550 MG TABLET PO SCH ×2 (10:34→20:54)
[2022-10-04] MEDS: MELATONIN 3 MG TAB PO SCH (20:55)
--- NOTE | 2022-10-05 07:15 | Hospitalist Progress Note ---
Date of Service October 05, 2022 Assessment & Plan (1) Acute alteration in mental status: Plan: Nicolás is a 71 y/o male with PMH of intracranial hemorrhage, alcohol induced cirrhosis, atrial fibrillation, insomnia, gout, carotid artery stenosis, COPD, who was admitted to the hospital for altered mental status. His presentation was unchanged from previous admission. His confusion is secondary to hepatic encephalopathy with possible component of superimposed delirium who continues to await placement. Altered Mental Status: 2/2 Hepatic Encephalopathy w/ Superimposed Hyperactive Delirium Baseline mentation - struggles with word finding but is able to communicate more fully and can perform some of his daily activities of living independently. Know hx of alcoholic cirrhosis with previous HE. Admitted 07/22/2022 d/t hyperammonemia of 156. CT Head (08/12) and CXR (07/22) w/o acute change. Blood cx 08/12 neg. UA negative. Recent CXR showed very slight worsening of interstitial pulmonary edema. No consolidations. No intervention necessary at this time. [] Continue melatonin 3mg q1800 daily [] Delirium precautions ongoing [] Continue lactulose, rifaximin. Goal of 3-4 BMs per day. +Held lactulose during daytime today due to diarrhea [] 1:1 per nursing discretion [] Seroquel per psych, 12.5 QAM 25 QHS [] Continuing to work with case management to find placement; referrals placed to a variety of facilities and on a few waiting lists. Hyperbilirubinemia Pt with elevated bilirubin at 4.8 secondary to chronic liver disease. Lipase and LFT's are within baseline. US liver showed nonvisualization of the gallbladder and common bile duct as well as cirrhosis w/o hepatic mass. Bilirubin stable; continues to stabilize/down trend Hyponatremia - resolved Alcoholic Liver Cirrhosis MELD 18 upon admission [] Lasix 40 mg Atrial Fibrillation Not on anticoagulation due to recent intraparenchymal hemorrhage. Episodes of irregular rhythm Hypertension Continue home lisinopril 5 mg Hx of Intracranial Hemorrhage Continue levetiracetam Deconditioning PT recommends 24/7 care either at SNF or at home with home health depending on family choice - 08/17 PT noted failure to progress beyond requirement of 24 hour supervision: recommended 24 hour care, PCF, and return home - pt originally to go to [facility] 08/19 - Pending placement: per CM, insurance denied SNF. CM continuing to look for other placement, no updates. GERD Continue Protonix COPD Continue home inhaler Diet:Fully alert -minced and moist; less alert -pureed DVT ppx:SCDs only d/t intracranial hemorrhage hx Dispo:[facility], insurance denied SNF placement. No updates from case management today. Code Status:DNR/DNI (2) Alcoholic cirrhosis of liver: (3) GERD (gastroesophageal reflux disease): (4) Hypertension: (5) COPD (chronic obstructive pulmonary disease): (6) Patient unarousable: (7) Asymptomatic bacteriuria: Admission and Anticipated Discharge Date Admission Date: July 23, 2022 Supervising Physician Co-Signing Physician Notes Resident Physician Supervision Note: I independently interviewed and examined the patient and verified the lebron history and physical, reviewed labs and image studies and agree with resident findings and care plan. Subjective Patient was seen and examined at bedside. Patient at baseline today. Per nursing, had an episode of diarrhea this morning. Review of Systems Review of Systems: As per HPI Physical Exam Constitutional: WD/WN, vitals as above + altered mental status Eyes: EOM intact bilaterally ENMT: Mouth: + poor dentition Respiratory: normal respiratory effort, lungs clear to auscultation Cardiovascular: RRR, no murmur, no edema Skin: no rashes, warm and dry Psychiatric: Orientation: oriented to person Results & Data Results & Data ([facility]) Vital Signs (Past 12 Hours) Vital Signs Temp Pulse Resp BP Pulse Ox O2 Del Method 10/04/22 23:33 36.7 C 69 20 103/55 L 91 Room Air Resident Activity Tracking Resident Involvement: Resident Care Provided Care Provided: Adult Hospital Medicine
[2022-10-05] MEDS: FUROSEMIDE 40 MG TAB PO SCH ×2 (08:26→16:37)
[2022-10-05] MEDS: FERROUS SULFATE 325 MG TAB PO SCH ×2 (08:26→19:31)
[2022-10-05] MEDS: rifAXIMin 550 MG TABLET PO SCH ×2 (08:26→19:30)
[2022-10-05] MEDS: MULTIVITAMIN TAB PO SCH (08:26)
[2022-10-05] MEDS: lisinopril 5 MG TAB PO SCH (08:26)
[2022-10-05] MEDS: CHOLECALCIFEROL 1,000 UNITS 25 MCG TAB PO SCH (08:26)
[2022-10-05] MEDS: THIAMINE HCL 100 MG TAB PO SCH (08:26)
[2022-10-05] MEDS: levETIRAcetam 500 MG TAB PO SCH ×2 (08:26→19:31)
[2022-10-05] MEDS: PANTOprazole 40 MG TAB PO SCH ×2 (08:26→19:31)
[2022-10-05] MEDS: POTASSIUM CHLORIDE 10 MEQ TABCR PO SCH (08:26)
[2022-10-05] MEDS: UMECLIDINIUM/VILANTEROL 62.5/25MCG 7 PUFFS/INHALER INH SCH (08:27)
[2022-10-05] MEDS: QUEtiapine FUMARATE 25 MG TABLET PO SCH ×2 (08:27→19:31)
[2022-10-05] MEDS: LACTULOSE SYRUP 30 GM/45 ML UDP PO SCH ×3 (08:27→19:02)
[2022-10-05] MEDS: LACTULOSE 200GM/700ML WTR ENEMA PR SCH (11:32)
[2022-10-05] MEDS: MELATONIN 3 MG TAB PO SCH (19:30)
--- NOTE | 2022-10-06 07:05 | Hospitalist Progress Note ---
Date of Service October 06, 2022 Assessment & Plan (1) Acute alteration in mental status: Plan: Nicolás is a 71 y/o male with PMH of intracranial hemorrhage, alcohol induced cirrhosis, atrial fibrillation, insomnia, gout, carotid artery stenosis, COPD, who was admitted to the hospital for altered mental status. His presentation was unchanged from previous admission. His confusion is secondary to hepatic encephalopathy with possible component of superimposed delirium who continues to await placement. Altered Mental Status: 2/2 Hepatic Encephalopathy w/ Superimposed Hyperactive Delirium Baseline mentation - struggles with word finding but is able to communicate more fully and can perform some of his daily activities of living independently. Know hx of alcoholic cirrhosis with previous HE. Admitted 07/22/2022 d/t hyperammonemia of 156. CT Head (08/12) and CXR (07/22) w/o acute change. Blood cx 08/12 neg. UA negative. Recent CXR showed very slight worsening of interstitial pulmonary edema. No consolidations. No intervention necessary at this time. [] Continue melatonin 3mg q1800 daily [] Delirium precautions ongoing [] Continue lactulose, rifaximin. Goal of 3-4 BMs per day. [] 1:1 per nursing discretion [] Seroquel per psych, 12.5 QAM 25 QHS [] Continuing to work with case management to find placement; referrals placed to a variety of facilities and on a few waiting lists. Hyperbilirubinemia Pt with elevated bilirubin at 4.8 secondary to chronic liver disease. Lipase and LFT's are within baseline. US liver showed nonvisualization of the gallbladder and common bile duct as well as cirrhosis w/o hepatic mass. Bilirubin stable; continues to stabilize/down trend Hyponatremia - resolved Alcoholic Liver Cirrhosis MELD 18 upon admission [] Lasix 40 mg Atrial Fibrillation Not on anticoagulation due to recent intraparenchymal hemorrhage. Episodes of irregular rhythm Hypertension Continue home lisinopril 5 mg Hx of Intracranial Hemorrhage Continue levetiracetam Deconditioning PT recommends 24/7 care either at SNF or at home with home health depending on family choice - 08/17 PT noted failure to progress beyond requirement of 24 hour supervision: recommended 24 hour care, PCF, and return home - pt originally to go to [facility] 08/19 - Pending placement: per CM, insurance denied SNF. CM continuing to look for other placement, no updates. GERD Continue Protonix COPD Continue home inhaler Diet:Fully alert -minced and moist; less alert -pureed DVT ppx:SCDs only d/t intracranial hemorrhage hx Dispo:pending intermediate placement, insurance denied SNF placement. No updates. Code Status:DNR/DNI (2) Alcoholic cirrhosis of liver: (3) GERD (gastroesophageal reflux disease): (4) Hypertension: (5) COPD (chronic obstructive pulmonary disease): (6) Patient unarousable: (7) Asymptomatic bacteriuria: Admission and Anticipated Discharge Date Admission Date: July 23, 2022 Supervising Physician Co-Signing Physician Notes Resident Physician Supervision Note: I independently interviewed and examined the patient and verified the lebron history and physical, reviewed labs and image studies and agree with resident findings and care plan. Subjective Patient seen and examined at bedside. Patient eating breakfast at time of encounter, is interactive and in no acute distress. States he is doing well and wants to go home. Review of Systems Review of Systems: As per HPI Physical Exam Constitutional: WD/WN, vitals as above + altered mental status ENMT: Mouth: + poor dentition Neck: trachea midline, no thyromegaly Respiratory: normal respiratory effort, lungs clear to auscultation Cardiovascular: RRR, no murmur, no edema Psychiatric: Orientation: oriented to person Results & Data Results & Data ([facility]) Vital Signs (Past 12 Hours) Vital Signs Temp Pulse Resp BP Pulse Ox O2 Del Method 10/05/22 23:55 36.7 C 65 18 106/56 L 92 Room Air Resident Activity Tracking Resident Involvement: Resident Care Provided Care Provided: Adult Hospital Medicine
[2022-10-06] MEDS: QUEtiapine FUMARATE 25 MG TABLET PO SCH ×2 (08:52→20:00)
[2022-10-06] MEDS: lisinopril 5 MG TAB PO SCH (08:52)
[2022-10-06] MEDS: FUROSEMIDE 40 MG TAB PO SCH ×2 (08:52→16:47)
[2022-10-06] MEDS: MULTIVITAMIN TAB PO SCH (08:52)
[2022-10-06] MEDS: THIAMINE HCL 100 MG TAB PO SCH (08:52)
[2022-10-06] MEDS: FERROUS SULFATE 325 MG TAB PO SCH ×2 (08:52→20:00)
[2022-10-06] MEDS: rifAXIMin 550 MG TABLET PO SCH ×2 (08:52→20:00)
[2022-10-06] MEDS: levETIRAcetam 500 MG TAB PO SCH ×2 (08:52→20:00)
[2022-10-06] MEDS: PANTOprazole 40 MG TAB PO SCH ×2 (08:52→20:00)
[2022-10-06] MEDS: CHOLECALCIFEROL 1,000 UNITS 25 MCG TAB PO SCH (08:52)
[2022-10-06] MEDS: POTASSIUM CHLORIDE 10 MEQ TABCR PO SCH (08:52)
[2022-10-06] MEDS: UMECLIDINIUM/VILANTEROL 62.5/25MCG 7 PUFFS/INHALER INH SCH (08:53)
[2022-10-06] MEDS: MELATONIN 3 MG TAB PO SCH (20:00)
--- NOTE | 2022-10-07 06:49 | Hospitalist Progress Note ---
Date of Service October 07, 2022 Assessment & Plan (1) Acute alteration in mental status: Plan: Nicolás is a 71 y/o male with PMH of intracranial hemorrhage, alcohol induced cirrhosis, atrial fibrillation, insomnia, gout, carotid artery stenosis, COPD, who was admitted to the hospital for altered mental status. His presentation was unchanged from previous admission. His confusion is secondary to hepatic encephalopathy with possible component of superimposed delirium who continues to await placement. Altered Mental Status: 2/2 Hepatic Encephalopathy w/ Superimposed Hyperactive Delirium Baseline mentation - struggles with word finding but is able to communicate more fully and can perform some of his daily activities of living independently. Know hx of alcoholic cirrhosis with previous HE. Admitted 07/22/2022 d/t hyperammonemia of 156. CT Head (08/12) and CXR (07/22) w/o acute change. Blood cx 08/12 neg. UA negative. Recent CXR showed very slight worsening of interstitial pulmonary edema. No consolidations. No intervention necessary at this time. [] Continue melatonin 3mg q1800 daily [] Delirium precautions ongoing [] Continue lactulose, rifaximin. Goal of 3-4 BMs per day. [] 1:1 per nursing discretion [] Seroquel per psych, 12.5 QAM 25 QHS [] Continuing to work with case management to find placement; referrals placed to a variety of facilities and on a few waiting lists. Hyperbilirubinemia Pt with elevated bilirubin at 4.8 secondary to chronic liver disease. Lipase and LFT's are within baseline. US liver showed nonvisualization of the gallbladder and common bile duct as well as cirrhosis w/o hepatic mass. Bilirubin stable; continues to stabilize/down trend Hyponatremia - resolved Alcoholic Liver Cirrhosis MELD 18 upon admission [] Lasix 40 mg Atrial Fibrillation Not on anticoagulation due to recent intraparenchymal hemorrhage. Episodes of irregular rhythm Hypertension Continue home lisinopril 5 mg Hx of Intracranial Hemorrhage Continue levetiracetam Deconditioning PT recommends 24/7 care either at SNF or at home with home health depending on family choice - 08/17 PT noted failure to progress beyond requirement of 24 hour supervision: recommended 24 hour care, PCF, and return home - pt originally to go to [facility] 08/19 - Pending placement: per CM, insurance denied SNF. CM continuing to look for other placement, no updates today. GERD Continue Protonix COPD Continue home inhaler Diet:Fully alert -minced and moist; less alert -pureed DVT ppx:SCDs only d/t intracranial hemorrhage hx Dispo:pending skilled nursing placement, insurance denied SNF placement. No updates. Code Status:DNR/DNI (2) Alcoholic cirrhosis of liver: (3) GERD (gastroesophageal reflux disease): (4) Hypertension: (5) COPD (chronic obstructive pulmonary disease): (6) Patient unarousable: (7) Asymptomatic bacteriuria: Admission and Anticipated Discharge Date Admission Date: July 23, 2022 Supervising Physician Co-Signing Physician Notes personally examined the patient and verified all lebron points of history and exam, discussed case, and agree with decision making with Dr Gruber no complaints he is very happy today. He talks about something to do with asking somebody for help in getting a job done. vitals noted nad heent nc at mmm breathing unlabored no accessory muscles good effort skin no rashes no pallor or icterus Dementiapreviously was being labeled as delirium, but I think he probably has at this point stable baseline dementia related to alcohol abuse and prior intracranial bleed Hepatic encephalopathy appears to be stable Psychiatry consult appreciated continue seroquel overall stable, no worrisome behaviors awaiting placement, stable when bed available Additional per resident documentation Subjective Patient seen and examined at bedside. No acute events over night. Patient expresses frustration but does not indicate what made him upset. Mental status at baseline. Review of Systems Review of Systems: As per HPI Physical Exam Constitutional: WD/WN, vitals as above + altered mental status ENMT: Mouth: + poor dentition Neck: trachea midline, no thyromegaly Respiratory: normal respiratory effort, lungs clear to auscultation Musculoskeletal: Extremities: extremities normal to inspection Skin: no rashes, warm and dry Psychiatric: Orientation: oriented to person Results & Data Results & Data ([facility]) Vital Signs (Past 12 Hours) Vital Signs Temp Pulse Resp BP Pulse Ox O2 Del Method 10/06/22 19:55 36.6 C 72 18 122/60 96 Room Air Resident Activity Tracking Resident Involvement: Resident Care Provided Care Provided: Adult Hospital Medicine
[2022-10-07] MEDS: QUEtiapine FUMARATE 25 MG TABLET PO SCH ×2 (08:41→20:02)
[2022-10-07] MEDS: UMECLIDINIUM/VILANTEROL 62.5/25MCG 7 PUFFS/INHALER INH SCH (08:41)
[2022-10-07] MEDS: rifAXIMin 550 MG TABLET PO SCH ×2 (08:41→20:02)
[2022-10-07] MEDS: PANTOprazole 40 MG TAB PO SCH ×2 (08:41→20:02)
[2022-10-07] MEDS: levETIRAcetam 500 MG TAB PO SCH ×2 (08:41→20:02)
[2022-10-07] MEDS: THIAMINE HCL 100 MG TAB PO SCH (08:42)
[2022-10-07] MEDS: FUROSEMIDE 40 MG TAB PO SCH ×2 (08:42→16:48)
[2022-10-07] MEDS: POTASSIUM CHLORIDE 10 MEQ TABCR PO SCH (08:42)
[2022-10-07] MEDS: lisinopril 5 MG TAB PO SCH (08:42)
[2022-10-07] MEDS: FERROUS SULFATE 325 MG TAB PO SCH ×2 (08:42→20:02)
[2022-10-07] MEDS: MULTIVITAMIN TAB PO SCH (08:42)
[2022-10-07] MEDS: CHOLECALCIFEROL 1,000 UNITS 25 MCG TAB PO SCH (08:42)
[2022-10-07] MEDS: LACTULOSE 200GM/700ML WTR ENEMA PR SCH (09:52)
[2022-10-07] MEDS: MELATONIN 3 MG TAB PO SCH (20:02)
--- NOTE | 2022-10-07 20:35 | Billing Data ---
Date of Service October 07, 2022 Coding Level of Care Code 97089 Subseq Hosp Care Lvl 1
--- NOTE | 2022-10-08 07:18 | Hospitalist Progress Note ---
Date of Service October 08, 2022 Assessment & Plan (1) Acute alteration in mental status: Plan: Nicolás is a 71 y/o male with PMH of intracranial hemorrhage, alcohol induced cirrhosis, atrial fibrillation, insomnia, gout, carotid artery stenosis, COPD, who was admitted to the hospital for altered mental status. His presentation was unchanged from previous admission. His confusion is secondary to hepatic encephalopathy with possible component of superimposed delirium who continues to await placement. Altered Mental Status: 2/2 Hepatic Encephalopathy w/ Superimposed Hyperactive Delirium Baseline mentation - struggles with word finding but is able to communicate more fully and can perform some of his daily activities of living independently. Know hx of alcoholic cirrhosis with previous HE. Admitted 07/22/2022 d/t hyperammonemia of 156. CT Head (08/12) and CXR (07/22) w/o acute change. Blood cx 08/12 neg. UA negative. Recent CXR showed very slight worsening of interstitial pulmonary edema. No consolidations. No intervention necessary at this time. [] Continue melatonin 3mg q1800 daily [] Delirium precautions ongoing [] Continue lactulose, rifaximin. Goal of 3-4 BMs per day. [] 1:1 per nursing discretion [] Seroquel per psych, 12.5 QAM 25 QHS [] Continuing to work with case management to find placement; referrals placed to a variety of facilities and on a few waiting lists. Hyperbilirubinemia Pt with elevated bilirubin at 4.8 secondary to chronic liver disease. Lipase and LFT's are within baseline. US liver showed nonvisualization of the gallbladder and common bile duct as well as cirrhosis w/o hepatic mass. Bilirubin stable; continues to stabilize/down trend Hyponatremia - resolved Alcoholic Liver Cirrhosis MELD 18 upon admission [] Lasix 40 mg Atrial Fibrillation Not on anticoagulation due to recent intraparenchymal hemorrhage. Episodes of irregular rhythm Hypertension Continue home lisinopril 5 mg Hx of Intracranial Hemorrhage Continue levetiracetam Deconditioning PT recommends 24/7 care either at SNF or at home with home health depending on family choice - 08/17 PT noted failure to progress beyond requirement of 24 hour supervision: recommended 24 hour care, PCF, and return home - pt originally to go to [facility] 08/19 - Pending placement: per CM, insurance denied SNF. CM continuing to look for other placement. GERD Continue Protonix COPD Continue home inhaler Diet:Fully alert -minced and moist; less alert -pureed DVT ppx:SCDs only d/t intracranial hemorrhage hx Dispo:pending [facility], insurance denied SNF placement. 10/08: Per CM, patient may have bed in dementia unit in next few days Code Status:DNR/DNI (2) Alcoholic cirrhosis of liver: (3) GERD (gastroesophageal reflux disease): (4) Hypertension: (5) COPD (chronic obstructive pulmonary disease): (6) Patient unarousable: (7) Asymptomatic bacteriuria: Admission and Anticipated Discharge Date Admission Date: July 23, 2022 Supervising Physician Co-Signing Physician Notes personally examined the patient and verified all lebron points of history and exam, discussed case, and agree with decision making with Dr Yasmani lambert vitals noted nad heent nc at mmm breathing unlabored no accessory muscles good effort skin no rashes no pallor or icterus Dementiapreviously was being labeled as delirium, but I think he probably has at this point stable baseline dementia related to alcohol abuse and prior intracranial bleed Hepatic encephalopathy appears to be stable Psychiatry consult appreciated continue seroquel at stable/fairly low dose overall stable, no worrisome behaviors awaiting placement, stable when bed available Additional per resident documentation Subjective Patient seen and examined. No changes overnight, patient pleasant. Assisted patient with using TV remote. Review of Systems Review of Systems: As per HPI Physical Exam Constitutional: WD/WN, vitals as above + altered mental status ENMT: Mouth: + poor dentition Neck: trachea midline, no thyromegaly Respiratory: normal respiratory effort, lungs clear to auscultation Cardiovascular: RRR, no murmur, no edema Gastrointestinal (Abdomen): normal bowel sounds, soft, nontender, no hepatosplenomegaly Skin: no rashes, warm and dry Psychiatric: Orientation: oriented to person Results & Data Results & Data ([facility]) Vital Signs (Past 12 Hours) Vital Signs Temp Pulse Resp BP Pulse Ox O2 Del Method 10/07/22 23:30 36.6 C 70 14 132/66 93 Room Air Resident Activity Tracking Resident Involvement: Resident Care Provided Care Provided: Adult Hospital Medicine
[2022-10-08] MEDS: lisinopril 5 MG TAB PO SCH (08:06)
[2022-10-08] MEDS: THIAMINE HCL 100 MG TAB PO SCH (08:06)
[2022-10-08] MEDS: PANTOprazole 40 MG TAB PO SCH ×2 (08:06→19:52)
[2022-10-08] MEDS: levETIRAcetam 500 MG TAB PO SCH ×2 (08:06→19:51)
[2022-10-08] MEDS: CHOLECALCIFEROL 1,000 UNITS 25 MCG TAB PO SCH (08:06)
[2022-10-08] MEDS: POTASSIUM CHLORIDE 10 MEQ TABCR PO SCH (08:06)
[2022-10-08] MEDS: rifAXIMin 550 MG TABLET PO SCH ×2 (08:06→19:51)
[2022-10-08] MEDS: FUROSEMIDE 40 MG TAB PO SCH ×2 (08:07→16:46)
[2022-10-08] MEDS: FERROUS SULFATE 325 MG TAB PO SCH ×2 (08:07→19:51)
[2022-10-08] MEDS: QUEtiapine FUMARATE 25 MG TABLET PO SCH ×2 (08:07→19:52)
[2022-10-08] MEDS: UMECLIDINIUM/VILANTEROL 62.5/25MCG 7 PUFFS/INHALER INH SCH (08:07)
[2022-10-08] MEDS: MULTIVITAMIN TAB PO SCH (08:07)
--- NOTE | 2022-10-08 19:28 | Billing Data ---
Date of Service October 08, 2022 Coding Level of Care Code 76877 Subseq Hosp Care Lvl 1
[2022-10-08] MEDS: MELATONIN 3 MG TAB PO SCH (19:51)
--- NOTE | 2022-10-09 07:38 | Hospitalist Progress Note ---
Date of Service October 09, 2022 Assessment & Plan (1) Acute alteration in mental status: Plan: Nicolás is a 71 y/o male with PMH of intracranial hemorrhage, alcohol induced cirrhosis, atrial fibrillation, insomnia, gout, carotid artery stenosis, COPD, who was admitted to the hospital for altered mental status. His presentation was unchanged from previous admission. His confusion is secondary to hepatic encephalopathy with possible component of superimposed delirium who continues to await placement. Altered Mental Status: 2/2 Hepatic Encephalopathy w/ Superimposed Hyperactive Delirium Baseline mentation - struggles with word finding but is able to communicate more fully and can perform some of his daily activities of living independently. Know hx of alcoholic cirrhosis with previous HE. Admitted 07/22/2022 d/t hyperammonemia of 156. CT Head (08/12) and CXR (07/22) w/o acute change. Blood cx 08/12 neg. UA negative. Recent CXR showed very slight worsening of interstitial pulmonary edema. No consolidations. No intervention necessary at this time. [] Continue melatonin 3mg q1800 daily [] Delirium precautions ongoing [] Continue lactulose (PO), rifaximin. Goal of 3-4 BMs per day. lactulose enema PRN [] 1:1 per nursing discretion [] Seroquel per psych, 12.5 QAM 25 QHS [] Continuing to work with case management to find placement; referrals placed to a variety of facilities and on a few waiting lists. Hyperbilirubinemia Pt with elevated bilirubin at 4.8 secondary to chronic liver disease. Lipase and LFT's are within baseline. US liver showed nonvisualization of the gallbladder and common bile duct as well as cirrhosis w/o hepatic mass. Bilirubin stable; continues to stabilize/down trend Hyponatremia - resolved Alcoholic Liver Cirrhosis MELD 18 upon admission [] Lasix 40 mg Atrial Fibrillation Not on anticoagulation due to recent intraparenchymal hemorrhage. Episodes of irregular rhythm Hypertension Continue home lisinopril 5 mg Hx of Intracranial Hemorrhage Continue levetiracetam Deconditioning PT recommends 24/7 care either at SNF or at home with home health depending on family choice - 08/17 PT noted failure to progress beyond requirement of 24 hour supervision: recommended 24 hour care, PCF, and return home - pt originally to go to [facility] 08/19 - Pending placement: per CM, insurance denied SNF. CM awaiting further news from possible dementia unit bed. GERD Continue Protonix COPD Continue home inhaler Diet:Fully alert -minced and moist; less alert -pureed DVT ppx:SCDs only d/t intracranial hemorrhage hx Dispo:pending care home placement, insurance denied SNF placement. 10/08: Per CM, patient may have bed in dementia unit in next few days. No updates today. Code Status:DNR/DNI (2) Alcoholic cirrhosis of liver: (3) GERD (gastroesophageal reflux disease): (4) Hypertension: (5) COPD (chronic obstructive pulmonary disease): (6) Patient unarousable: (7) Asymptomatic bacteriuria: Admission and Anticipated Discharge Date Admission Date: July 23, 2022 Supervising Physician Co-Signing Physician Notes personally examined the patient and verified all lebron points of history and exam, discussed case, and agree with decision making with Dr Gruber Once again talking about somethingseems to have been related to his prior careerbut really hard to discern. Pleasant and happy. vitals noted nad heent nc at mmm breathing unlabored no accessory muscles good effort skin no rashes no pallor or icterus Dementiapreviously was being labeled as delirium, but I think he probably has at this point stable baseline dementia related to alcohol abuse and prior intracranial bleed Hepatic encephalopathy appears to be stable Psychiatry consult appreciated continue seroquel at stable/fairly low dose overall stable, no worrisome behaviors Still awaiting placement, stable when bed available Additional per resident documentation Subjective Patient seen and examined at bedside. No events overnight. Patient at baseline mental status. Denies any pain today. Review of Systems Review of Systems: As per HPI Physical Exam Constitutional: WD/WN, vitals as above + altered mental status ENMT: Mouth: + poor dentition Neck: trachea midline, no thyromegaly Respiratory: normal respiratory effort, lungs clear to auscultation Cardiovascular: RRR, no murmur, no edema Skin: no rashes, warm and dry Psychiatric: Orientation: oriented to person Results & Data Results & Data ([facility]) Vital Signs (Past 12 Hours) Vital Signs Temp Pulse Resp BP Pulse Ox O2 Del Method 10/08/22 19:49 36.6 C 68 16 128/70 96 Room Air Resident Activity Tracking Resident Involvement: Resident Care Provided Care Provided: Adult Hospital Medicine
[2022-10-09] MEDS: POTASSIUM CHLORIDE 10 MEQ TABCR PO SCH (08:35)
[2022-10-09] MEDS: CHOLECALCIFEROL 1,000 UNITS 25 MCG TAB PO SCH (08:35)
[2022-10-09] MEDS: rifAXIMin 550 MG TABLET PO SCH ×2 (08:35→19:27)
[2022-10-09] MEDS: levETIRAcetam 500 MG TAB PO SCH ×2 (08:35→19:27)
[2022-10-09] MEDS: FERROUS SULFATE 325 MG TAB PO SCH ×2 (08:35→19:27)
[2022-10-09] MEDS: QUEtiapine FUMARATE 25 MG TABLET PO SCH ×2 (08:35→19:26)
[2022-10-09] MEDS: FUROSEMIDE 40 MG TAB PO SCH ×2 (08:36→17:42)
[2022-10-09] MEDS: PANTOprazole 40 MG TAB PO SCH ×2 (08:36→19:26)
[2022-10-09] MEDS: lisinopril 5 MG TAB PO SCH (08:36)
[2022-10-09] MEDS: THIAMINE HCL 100 MG TAB PO SCH (08:36)
[2022-10-09] MEDS: UMECLIDINIUM/VILANTEROL 62.5/25MCG 7 PUFFS/INHALER INH SCH (10:00)
[2022-10-09] MEDS: MULTIVITAMIN TAB PO SCH (10:01)
[2022-10-09] MEDS: LACTULOSE 200GM/700ML WTR ENEMA PR SCH (12:51)
[2022-10-09] MEDS: LACTULOSE SYRUP 30 GM/45 ML UDP PO SCH ×3 (15:17→19:28)
--- NOTE | 2022-10-09 18:47 | Billing Data ---
Date of Service October 09, 2022 Coding Level of Care Code 30797 Subseq Hosp Care Lvl 1
[2022-10-09] MEDS: MELATONIN 3 MG TAB PO SCH (19:27)
[2022-10-10] MEDS ORDERED: LACTULOSE 200GM/700ML WTR ENEMA PR PRN (08:00)
--- NOTE | 2022-10-10 08:24 | Hospitalist Progress Note ---
Date of Service October 10, 2022 Assessment & Plan (1) Acute alteration in mental status: Plan: Nicolás is a 71 y/o male with PMH of intracranial hemorrhage, alcohol induced cirrhosis, atrial fibrillation, insomnia, gout, carotid artery stenosis, COPD, who was admitted to the hospital for altered mental status. His presentation was unchanged from previous admission. His confusion is secondary to hepatic encephalopathy with possible component of superimposed delirium who continues to await placement. Dementiapreviously was being labeled as delirium, at this point stable baseline dementia related to alcohol abuse and prior intracranial bleed Baseline mentation - struggles with word finding but is able to communicate more fully and can perform some of his daily activities of living independently. Know hx of alcoholic cirrhosis with previous HE. Admitted 07/22/2022 d/t hyperammonemia of 156. CT Head (08/12) and CXR (07/22) w/o acute change. Blood cx 08/12 neg. UA negative. Recent CXR showed very slight worsening of interstitial pulmonary edema. No consolidations. No intervention necessary at this time. [] Continue melatonin 3mg q1800 daily [] Delirium precautions ongoing [] Continue lactulose (PO), rifaximin. Goal of 3-4 BMs per day. lactulose enema PRN [] 1:1 per nursing discretion [] Seroquel per psych, 12.5 QAM 25 QHS [] Continuing to work with case management to find placement; referrals placed to a variety of facilities and on a few waiting lists. Hyperbilirubinemia Pt with elevated bilirubin at 4.8 secondary to chronic liver disease. Lipase and LFT's are within baseline. US liver showed nonvisualization of the gallbladder and common bile duct as well as cirrhosis w/o hepatic mass. Bilirubin stable; continues to stabilize/down trend Hyponatremia - resolved Alcoholic Liver Cirrhosis MELD 18 upon admission [] Lasix 40 mg Atrial Fibrillation Not on anticoagulation due to recent intraparenchymal hemorrhage. Episodes of irregular rhythm Hypertension Continue home lisinopril 5 mg Hx of Intracranial Hemorrhage Continue levetiracetam Deconditioning PT recommends 24/7 care either at SNF or at home with home health depending on family choice - 08/17 PT noted failure to progress beyond requirement of 24 hour supervision: recommended 24 hour care, PCF, and return home - pt originally to go to [facility] 08/19 - Pending placement: per CM, insurance denied SNF. CM awaiting further news from possible dementia unit bed. GERD Continue Protonix COPD Continue home inhaler Diet:Fully alert -minced and moist; less alert -pureed DVT ppx:SCDs only d/t intracranial hemorrhage hx Dispo:pending halfway placement, insurance denied SNF placement. 10/10: case management continues to send referrals for locked units. No updates Code Status:DNR/DNI (2) Alcoholic cirrhosis of liver: (3) GERD (gastroesophageal reflux disease): (4) Hypertension: (5) COPD (chronic obstructive pulmonary disease): (6) Patient unarousable: (7) Asymptomatic bacteriuria: Admission and Anticipated Discharge Date Admission Date: July 23, 2022 Supervising Physician Co-Signing Physician Notes personally examined the patient and verified all lebron points of history and exam, discussed case, and agree with decision making with Dr Gruber Once again talking about somethingseems to have been related to his prior careerbut really hard to discern. Pleasant and happy. vitals noted nad heent nc at mmm breathing unlabored no accessory muscles good effort skin no rashes no pallor or icterus Dementiapreviously was being labeled as delirium I agree with previous provider, that patient has baseline dementia related to alcohol abuse and prior intracranial bleed Hepatic encephalopathy appears to be stable Psychiatry consult appreciated continue seroquel at stable/fairly low dose overall stable, no worrisome behaviors Still awaiting placement, stable when bed available Additional per resident documentation Subjective Patient seen and examined at bedside. Patient at baseline mentation. In no acute distress, eating breakfast at time of encounter. Review of Systems Review of Systems: As per HPI Physical Exam Constitutional: WD/WN, vitals as above + altered mental status ENMT: Mouth: + poor dentition Neck: trachea midline, no thyromegaly Respiratory: normal respiratory effort, lungs clear to auscultation Cardiovascular: RRR, no murmur, no edema Skin: no rashes, warm and dry Psychiatric: Orientation: oriented to person Resident Activity Tracking Resident Involvement: Resident Care Provided Care Provided: Adult Hospital Medicine
[2022-10-10] MEDS: PANTOprazole 40 MG TAB PO SCH ×2 (08:54→20:10)
[2022-10-10] MEDS: lisinopril 5 MG TAB PO SCH (08:54)
[2022-10-10] MEDS: levETIRAcetam 500 MG TAB PO SCH ×2 (08:54→20:12)
[2022-10-10] MEDS: rifAXIMin 550 MG TABLET PO SCH ×2 (08:54→20:11)
[2022-10-10] MEDS: FERROUS SULFATE 325 MG TAB PO SCH ×2 (08:54→20:09)
[2022-10-10] MEDS: FUROSEMIDE 40 MG TAB PO SCH ×2 (08:55→17:07)
[2022-10-10] MEDS: CHOLECALCIFEROL 1,000 UNITS 25 MCG TAB PO SCH (08:55)
[2022-10-10] MEDS: QUEtiapine FUMARATE 25 MG TABLET PO SCH ×2 (08:55→20:11)
[2022-10-10] MEDS: POTASSIUM CHLORIDE 10 MEQ TABCR PO SCH (08:55)
[2022-10-10] MEDS: THIAMINE HCL 100 MG TAB PO SCH (08:55)
[2022-10-10] MEDS: UMECLIDINIUM/VILANTEROL 62.5/25MCG 7 PUFFS/INHALER INH SCH (08:55)
[2022-10-10] MEDS: MULTIVITAMIN TAB PO SCH (08:55)
[2022-10-10] MEDS: LACTULOSE SYRUP 30 GM/45 ML UDP PO SCH ×4 (08:56→20:10)
[2022-10-10] MEDS: MELATONIN 3 MG TAB PO SCH (20:10)
--- NOTE | 2022-10-11 06:48 | Hospitalist Progress Note ---
Date of Service October 11, 2022 Assessment & Plan (1) Acute alteration in mental status: Plan: Nicolás is a 71 y/o male with PMH of intracranial hemorrhage, alcohol induced cirrhosis, atrial fibrillation, insomnia, gout, carotid artery stenosis, COPD, who was admitted to the hospital for altered mental status. His presentation was unchanged from previous admission. His confusion is secondary to hepatic encephalopathy with possible component of superimposed delirium who continues to await placement. Dementiapreviously was being labeled as delirium, at this point stable baseline dementia related to alcohol abuse and prior intracranial bleed Baseline mentation - struggles with word finding but is able to communicate more fully and can perform some of his daily activities of living independently. Know hx of alcoholic cirrhosis with previous HE. Admitted 07/22/2022 d/t hyperammonemia of 156. CT Head (08/12) and CXR (07/22) w/o acute change. Blood cx 08/12 neg. UA negative. Recent CXR showed very slight worsening of interstitial pulmonary edema. No consolidations. No intervention necessary at this time. [] Continue melatonin 3mg q1800 daily [] Delirium precautions ongoing [] Continue lactulose (PO), rifaximin. Goal of 3-4 BMs per day. lactulose enema PRN [] 1:1 per nursing discretion [] Seroquel per psych, 12.5 QAM 25 QHS [] Continuing to work with case management to find placement; referrals placed to a variety of facilities and on a few waiting lists. Hyperbilirubinemia Pt with elevated bilirubin at 4.8 secondary to chronic liver disease. Lipase and LFT's are within baseline. US liver showed nonvisualization of the gallbladder and common bile duct as well as cirrhosis w/o hepatic mass. Bilirubin stable; continues to stabilize/down trend Hyponatremia - resolved Alcoholic Liver Cirrhosis MELD 18 upon admission [] Lasix 40 mg Atrial Fibrillation Not on anticoagulation due to recent intraparenchymal hemorrhage. Episodes of irregular rhythm Hypertension Continue home lisinopril 5 mg Hx of Intracranial Hemorrhage Continue levetiracetam Deconditioning PT recommends 24/7 care either at SNF or at home with home health depending on family choice - 08/17 PT noted failure to progress beyond requirement of 24 hour supervision: recommended 24 hour care, PCF, and return home - pt originally to go to [facility] 08/19 - Pending placement: per CM, insurance denied SNF. CM awaiting further news from possible dementia unit bed. GERD Continue Protonix COPD Continue home inhaler Diet:Fully alert -minced and moist; less alert -pureed DVT ppx:SCDs only d/t intracranial hemorrhage hx Dispo:pending jail placement, insurance denied SNF placement. 10/11: continues to send referrals, may have bed next week pending status of availability with covid outbreak at center. Code Status:DNR/DNI (2) Alcoholic cirrhosis of liver: (3) GERD (gastroesophageal reflux disease): (4) Hypertension: (5) COPD (chronic obstructive pulmonary disease): (6) Patient unarousable: (7) Asymptomatic bacteriuria: Admission and Anticipated Discharge Date Admission Date: July 23, 2022 Supervising Physician Co-Signing Physician Notes personally examined the patient and verified all lebron points of history and exam, discussed case, and agree with decision making with Dr Gruber Once again talking about somethingseems to have been related to his prior careerbut really hard to discern. Pleasant and happy. vitals noted nad heent nc at mmm breathing unlabored no accessory muscles good effort skin no rashes no pallor or icterus Dementiapreviously was being labeled as delirium I agree with previous provider, that patient has baseline dementia related to alcohol abuse and prior intracranial bleed Hepatic encephalopathy appears to be stable Psychiatry consult appreciated continue seroquel at stable/fairly low dose overall stable, no worrisome behaviors Still awaiting placement, stable when bed available Additional per resident documentation Subjective Patient seen and examined at bedside. Patient at baseline mentation, was eating breakfast at time of encounter. No acute distress. Review of Systems Review of Systems: As per HPI Physical Exam Constitutional: WD/WN, vitals as above + altered mental status ENMT: Mouth: + poor dentition Neck: trachea midline, no thyromegaly Respiratory: normal respiratory effort, lungs clear to auscultation Cardiovascular: RRR, no murmur, no edema Gastrointestinal (Abdomen): normal bowel sounds, soft, nontender, no hepatosplenomegaly Psychiatric: Orientation: oriented to person Results & Data Results & Data ([facility]) Vital Signs (Past 12 Hours) Vital Signs Temp Pulse Resp BP Pulse Ox O2 Del Method 10/10/22 19:30 Room Air 10/10/22 20:40 36.5 C 69 18 132/66 95 Room Air Resident Activity Tracking Resident Involvement: Resident Care Provided Care Provided: Adult Hospital Medicine
[2022-10-11] MEDS: FERROUS SULFATE 325 MG TAB PO SCH ×2 (08:25→20:28)
[2022-10-11] MEDS: rifAXIMin 550 MG TABLET PO SCH ×2 (08:26→20:29)
[2022-10-11] MEDS: THIAMINE HCL 100 MG TAB PO SCH (08:26)
[2022-10-11] MEDS: lisinopril 5 MG TAB PO SCH (08:26)
[2022-10-11] MEDS: POTASSIUM CHLORIDE 10 MEQ TABCR PO SCH (08:26)
[2022-10-11] MEDS: MULTIVITAMIN TAB PO SCH (08:26)
[2022-10-11] MEDS: CHOLECALCIFEROL 1,000 UNITS 25 MCG TAB PO SCH (08:26)
[2022-10-11] MEDS: QUEtiapine FUMARATE 25 MG TABLET PO SCH ×2 (08:26→20:28)
[2022-10-11] MEDS: levETIRAcetam 500 MG TAB PO SCH ×2 (08:27→20:29)
[2022-10-11] MEDS: UMECLIDINIUM/VILANTEROL 62.5/25MCG 7 PUFFS/INHALER INH SCH (08:27)
[2022-10-11] MEDS: FUROSEMIDE 40 MG TAB PO SCH ×2 (08:27→17:01)
[2022-10-11] MEDS: PANTOprazole 40 MG TAB PO SCH ×2 (08:27→20:29)
[2022-10-11] MEDS: LACTULOSE SYRUP 30 GM/45 ML UDP PO SCH ×4 (08:30→20:27)
[2022-10-11] MEDS: MELATONIN 3 MG TAB PO SCH (20:28)
[2022-10-12] MEDS: POTASSIUM CHLORIDE 10 MEQ TABCR PO SCH (08:03)
[2022-10-12] MEDS: MULTIVITAMIN TAB PO SCH (08:03)
[2022-10-12] MEDS: THIAMINE HCL 100 MG TAB PO SCH (08:03)
[2022-10-12] MEDS: PANTOprazole 40 MG TAB PO SCH ×2 (08:04→20:36)
[2022-10-12] MEDS: lisinopril 5 MG TAB PO SCH (08:04)
[2022-10-12] MEDS: rifAXIMin 550 MG TABLET PO SCH ×2 (08:04→20:37)
[2022-10-12] MEDS: levETIRAcetam 500 MG TAB PO SCH ×2 (08:04→20:37)
[2022-10-12] MEDS: QUEtiapine FUMARATE 25 MG TABLET PO SCH ×2 (08:05→20:36)
[2022-10-12] MEDS: FERROUS SULFATE 325 MG TAB PO SCH ×2 (08:05→20:38)
[2022-10-12] MEDS: FUROSEMIDE 40 MG TAB PO SCH ×2 (08:06→17:20)
[2022-10-12] MEDS: CHOLECALCIFEROL 1,000 UNITS 25 MCG TAB PO SCH (08:06)
[2022-10-12] MEDS: UMECLIDINIUM/VILANTEROL 62.5/25MCG 7 PUFFS/INHALER INH SCH (08:07)
[2022-10-12] MEDS: LACTULOSE SYRUP 30 GM/45 ML UDP PO SCH ×4 (08:07→20:35)
--- NOTE | 2022-10-12 09:42 | Hospitalist Progress Note ---
Date of Service October 12, 2022 Assessment & Plan (1) Acute alteration in mental status: Plan: Nicolás is a 71 y/o male with PMH of intracranial hemorrhage, alcohol induced cirrhosis, atrial fibrillation, insomnia, gout, carotid artery stenosis, COPD, who was admitted to the hospital for altered mental status. His presentation was unchanged from previous admission. His confusion is secondary to hepatic encephalopathy with probable component of dementia who continues to await placement. Dementiapreviously was being labeled as delirium, at this point stable baseline dementia most likely related to alcohol abuse and prior intracranial bleed - Baseline mentation - struggles with word finding but is able to communicate more fully and can perform some of his daily activities of living independently. Know hx of alcoholic cirrhosis with previous HE. Admitted 07/22/2022 d/t hyperammonemia of 156. CT Head (08/12) and CXR (07/22) w/o acute change. Blood cx 08/12 neg. UA negative. Recent CXR showed very slight worsening of interstitial pulmonary edema. No consolidations. No intervention necessary at this time. - Continue melatonin 3mg q1800 daily - Delirium precautions ongoing - Continue PO lactulose 30 mg QID, rifaximin 550 mg BID. Goal of 3-4 BMs per day. Lactulose enema PRN - 1:1 per nursing discretion - Seroquel per psych, 12.5 mg qAM, 25 mg qHS - Continuing to work with case management to find placement; referrals placed to a variety of facilities and on a few waiting lists. Acute agitation on chronic AMS - pt given haloperidol 2.5 mg IM Hyperbilirubinemia Pt with elevated bilirubin at 4.8 secondary to chronic liver disease. Lipase and LFT's are within baseline. US liver showed nonvisualization of the gallbladder and common bile duct as well as cirrhosis w/o hepatic mass. Bilirubin stable. Alcoholic Liver Cirrhosis - MELD 18 upon admission - continue lasix 40 mg Atrial Fibrillation - Not on anticoagulation due to recent intraparenchymal hemorrhage - Episodes of irregular rhythm Hypertension - Continue home lisinopril 5 mg Hx of Intracranial Hemorrhage - Continue levetiracetam Deconditioning PT recommends 24/7 care either at SNF or at home with home health depending on family choice - 08/17 PT noted failure to progress beyond requirement of 24 hour supervision: recommended 24 hour care, PCF, and return home; pt originally to go to [facility] 08/19 - Still pending placement: per CM, insurance denied SNF. CM awaiting further news from possible dementia unit bed. GERD - Continue Protonix COPD - Continue home inhaler Hyponatremia - resolved (2) Alcoholic cirrhosis of liver: (3) GERD (gastroesophageal reflux disease): (4) Hypertension: (5) COPD (chronic obstructive pulmonary disease): (6) History of intracranial hemorrhage: (7) Dementia associated with alcoholism: Plan Diet:Fully alert -minced and moist; less alert -pureed DVT ppx:SCDs only d/t intracranial hemorrhage hx Dispo: continues to send referrals; may have bed on locked dementia unit in the next 1-2 weeks pending status of bed availability with recent covid outbreak at [facility]. CM to f/u 10/14 to discuss availability. Code Status:DNR/DNI Admission and Anticipated Discharge Date Admission Date: July 23, 2022 Supervising Physician Co-Signing Physician Notes personally examined the patient and verified all lebron points of history and exam, discussed case, and agree with decision making with Dr Humphrey. Once again talking about somethingseems to have been related to his prior careerbut really hard to discern. Pleasant and happy. vitals noted nad heent nc at mmm breathing unlabored no accessory muscles good effort skin no rashes no pallor or icterus Dementiapreviously was being labeled as delirium I agree with previous provider, that patient has baseline dementia related to alcohol abuse and prior intracranial bleed. Patient has been more agitated and required 2 doses of haldol 2.5 mg. Will continue to monitor. Hepatic encephalopathy appears to be stable Psychiatry consult appreciated continue seroquel at stable/fairly low dose overall stable, no worrisome behaviors Still awaiting placement, stable when bed available Additional per resident documentation Subjective Pt seen this AM at bedside. He seems slightly disgruntled about his current sit uation but unable to complete his thoughts (as is his baseline). No acute distress. Pt did have a witnessed fall onto his buttocks yesterday evening. He did not his his head. No imaging required at that time. Pt appears at cognitive baseline today. Received a message from nursing that patient is agitated and smashed the computer keyboard. Review of Systems Review of Systems: Unobtainable due to cognitive status Physical Exam Constitutional: NAD. Vitals WNL. Eyes: Mild scleral icterus bilaterally Respiratory: CTA bilaterally. No rhonchi, wheezing, or crackles. Non labored breathing. Cardiovascular: RRR. No murmur noted. No LL edema. Gastrointestinal (Abdomen): Nontender, +BS. No masses noted. Skin: no rashes, warm and dry Psychiatric: Alert. Mood and affect congruent. Results & Data Results & Data ([facility]) Vital Signs (Past 12 Hours) Vital Signs Temp Pulse Resp BP Pulse Ox O2 Del Method 10/12/22 07:30 36.7 C 80 16 131/69 94 Room Air Resident Activity Tracking Resident Involvement: Resident Care Provided Care Provided: Adult Hospital Medicine
[2022-10-12] MEDS ORDERED: HALOPERIDOL LACTATE 5 MG/ML 1 ML VIAL IM STA ×2 (11:39→13:54)
[2022-10-12] MEDS: MELATONIN 3 MG TAB PO SCH (20:37)
--- NOTE | 2022-10-13 07:35 | Hospitalist Progress Note ---
Date of Service October 13, 2022 Assessment & Plan (1) Acute alteration in mental status: Plan: Nicolás is a 71 y/o male with PMH of intracranial hemorrhage, alcohol induced cirrhosis, atrial fibrillation, insomnia, gout, carotid artery stenosis, COPD, who was admitted to the hospital for altered mental status. His presentation was unchanged from previous admission. His confusion is secondary to hepatic encephalopathy with probable component of dementia who continues to await placement. Dementiapreviously was being labeled as delirium, at this point stable baseline dementia most likely related to alcohol abuse and prior intracranial bleed - Baseline mentation - struggles with word finding but is able to communicate more fully and can perform some of his daily activities of living independently. Know hx of alcoholic cirrhosis with previous HE. Admitted 07/22/2022 d/t hyperammonemia of 156. CT Head (08/12) and CXR (07/22) w/o acute change. Blood cx 08/12 neg. UA negative. Recent CXR showed very slight worsening of interstitial pulmonary edema. No consolidations. No intervention necessary at this time. - Continue melatonin 3mg q1800 daily - Delirium precautions ongoing - Continue PO lactulose 30 mg QID, rifaximin 550 mg BID. Goal of 3-4 BMs per day. Lactulose enema PRN - 1:1 per nursing discretion - Seroquel per psych; 12.5 mg qAM, 25 mg qHS - Continuing to work with case management to find placement; referrals placed to a variety of facilities and on a few waiting lists. Hyperbilirubinemia - Pt with elevated bilirubin at 4.8 secondary to chronic liver disease - Lipase and LFT's are within baseline - US liver showed nonvisualization of the gallbladder and common bile duct as well as cirrhosis w/o hepatic mass. Bilirubin stable. Alcoholic Liver Cirrhosis - MELD 18 upon admission - continue lasix 40 mg Atrial Fibrillation - Not on anticoagulation due to recent intraparenchymal hemorrhage - Episodes of irregular rhythm Hypertension - Continue home lisinopril 5 mg Hx of Intracranial Hemorrhage - Continue levetiracetam Deconditioning PT recommends 24/7 care either at SNF or at home with home health depending on family choice - 08/17 PT noted failure to progress beyond requirement of 24 hour supervision: recommended 24 hour care, PCF, and return home; pt originally to go to [facility] 08/19 - Still pending placement: per CM, insurance denied SNF. CM awaiting further news from possible dementia unit bed- to update 10/14 GERD - Continue Protonix COPD - Continue home inhaler Hyponatremia - resolved (2) Alcoholic cirrhosis of liver: (3) GERD (gastroesophageal reflux disease): (4) Hypertension: (5) COPD (chronic obstructive pulmonary disease): (6) History of intracranial hemorrhage: (7) Dementia associated with alcoholism: Plan Diet:Fully alert -minced and moist; less alert -pureed DVT ppx:SCDs only d/t intracranial hemorrhage hx Dispo:CM continues to send referrals; may have bed on locked dementia unit in the next 1-2 weeks pending status of bed availability with recent covid outbreak at center. CM to f/u 10/14 to discuss availability. Code Status:DNR/DNI Admission and Anticipated Discharge Date Admission Date: July 23, 2022 Supervising Physician Co-Signing Physician Notes personally examined the patient and verified all lebron points of history and exam, discussed case, and agree with decision making with Dr Humphrey. a little more dysphoric today but nondecipherable words. vitals noted nad heent nc at mmm breathing unlabored no accessory muscles good effort skin no rashes no pallor or icterus Dementiapreviously was being labeled as delirium really appears most c/w that patient has baseline dementia related to alcohol abuse and prior intracranial bleed. even recent degree of dysphoria fits more with dementia than delirium or acute recurrence of hepatic encephalopathy Will continue to monitor. Hepatic encephalopathy appears to be stable overall. awake and alert, just very confused. Psychiatry consult appreciated continue seroquel at stable/fairly low dose overall stable, no worrisome behaviors Still awaiting placement, stable when bed available Additional per resident documentation Douglas Monzon is a 71 y/o male with PMH of intracranial hemorrhage, alcohol induced cirrhosis, atrial fibrillation, insomnia, gout, carotid artery stenosis, COPD, who was admitted to the hospital for altered mental status. His presentation was unchanged from previous admission. His confusion is secondary to hepatic encephalopathy with probable component of dementia who continues to await placement. Pt dressed and looking out his window this AM. Appears to be at his base line. Pt required two doses of 2.5 mg haldol yesterday d/t agitation. Agitation seems to have improved since yesterday. Review of Systems Review of Systems: As per HPI Physical Exam Constitutional: NAD. Vitals WNL. Eyes: Mild scleral icterus Respiratory: Non labored breathing. Cardiovascular: Clinically well perfused Psychiatric: Alert and oriented x1 Resident Activity Tracking Resident Involvement: Resident Care Provided Care Provided: Adult Hospital Medicine
[2022-10-13] MEDS: POTASSIUM CHLORIDE 10 MEQ TABCR PO SCH (08:37)
[2022-10-13] MEDS: QUEtiapine FUMARATE 25 MG TABLET PO SCH ×2 (08:37→20:52)
[2022-10-13] MEDS: PANTOprazole 40 MG TAB PO SCH ×2 (08:37→20:53)
[2022-10-13] MEDS: levETIRAcetam 500 MG TAB PO SCH ×2 (08:37→20:52)
[2022-10-13] MEDS: rifAXIMin 550 MG TABLET PO SCH ×2 (08:37→20:52)
[2022-10-13] MEDS: lisinopril 5 MG TAB PO SCH (08:37)
[2022-10-13] MEDS: THIAMINE HCL 100 MG TAB PO SCH (08:37)
[2022-10-13] MEDS: CHOLECALCIFEROL 1,000 UNITS 25 MCG TAB PO SCH (08:37)
[2022-10-13] MEDS: LACTULOSE SYRUP 30 GM/45 ML UDP PO SCH ×5 (08:38→20:56)
[2022-10-13] MEDS: FUROSEMIDE 40 MG TAB PO SCH ×2 (08:38→17:48)
[2022-10-13] MEDS: FERROUS SULFATE 325 MG TAB PO SCH ×2 (08:38→20:52)
[2022-10-13] MEDS: MULTIVITAMIN TAB PO SCH (08:38)
[2022-10-13] MEDS: UMECLIDINIUM/VILANTEROL 62.5/25MCG 7 PUFFS/INHALER INH SCH (08:38)
--- NOTE | 2022-10-13 12:49 | Billing Data ---
Date of Service October 10, 2022 Coding Level of Care Code 43556 Initial Inpt Care Lvl 2
--- NOTE | 2022-10-13 12:50 | Billing Data ---
Date of Service October 11, 2022 Coding Level of Care Code 10151 Subseq Hosp Care Lvl 2
--- NOTE | 2022-10-13 12:51 | Billing Data ---
Date of Service October 12, 2022 Coding Level of Care Code 18790 Subseq Hosp Care Lvl 2
--- NOTE | 2022-10-13 16:41 | Billing Data ---
Date of Service October 13, 2022 Coding Level of Care Code 38469 Subseq Hosp Care Lvl 1
[2022-10-13] MEDS: MELATONIN 3 MG TAB PO SCH (20:52)
--- NOTE | 2022-10-14 07:20 | Hospitalist Progress Note ---
Date of Service October 14, 2022 Assessment & Plan (1) Acute alteration in mental status: Plan: Nicolás is a 71 y/o male with PMH of intracranial hemorrhage, alcohol induced cirrhosis, atrial fibrillation, insomnia, gout, carotid artery stenosis, COPD, who was admitted to the hospital for altered mental status. His presentation was unchanged from previous admission. His confusion is secondary to hepatic encephalopathy with probable component of dementia who continues to await placement. Dementiapreviously was being labeled as delirium, at this point stable baseline dementia most likely related to alcohol abuse and prior intracranial bleed - Baseline mentation - struggles with word finding but is able to communicate more fully and can perform some of his daily activities of living independently. Know hx of alcoholic cirrhosis with previous HE. Admitted 07/22/2022 d/t hyperammonemia of 156. CT Head (08/12) and CXR (07/22) w/o acute change. Blood cx 08/12 neg. UA negative. Recent CXR showed very slight worsening of interstitial pulmonary edema. No consolidations. No intervention necessary at this time. - Continue melatonin 3mg q1800 daily - Delirium precautions ongoing - Continue PO lactulose 30 mg QID, rifaximin 550 mg BID. Goal of 3-4 BMs per day. Lactulose enema PRN - 1:1 per nursing discretion - Seroquel per psych; 12.5 mg qAM, 25 mg qHS - given an additional AM dose of seroquel for agitation, will continue to monitor - Continuing to work with case management to find placement; referrals placed to a variety of facilities and on a few waiting lists. Hyperbilirubinemia - Pt with elevated bilirubin at 4.8 secondary to chronic liver disease - Lipase and LFT's are within baseline - US liver showed nonvisualization of the gallbladder and common bile duct as well as cirrhosis w/o hepatic mass. Bilirubin stable. Alcoholic Liver Cirrhosis - MELD 18 upon admission - continue lasix 40 mg Atrial Fibrillation - Not on anticoagulation due to recent intraparenchymal hemorrhage - Episodes of irregular rhythm Hypertension - Continue home lisinopril 5 mg Hx of Intracranial Hemorrhage - Continue levetiracetam Deconditioning PT recommends 24/7 care either at SNF or at home with home health depending on family choice - 08/17 PT noted failure to progress beyond requirement of 24 hour supervision: recommended 24 hour care, PCF, and return home; pt originally to go to [facility] 08/19 - Still pending placement: per CM, insurance denied SNF. CM awaiting further news from possible dementia unit bed- to update 10/14 GERD - Continue Protonix COPD - Continue home inhaler Hyponatremia - resolved Diet:Fully alert -minced and moist; less alert -pureed DVT ppx:SCDs only d/t intracranial hemorrhage hx Dispo:CM continues to send referrals; may have bed on locked dementia unit in the next 1-2 weeks pending status of bed availability with recent covid outbreak at [place]. CM to f/u 10/14 to discuss availability - plan to f/u with [facility] 10/14. Code Status:DNR/DNI (2) Alcoholic cirrhosis of liver: (3) GERD (gastroesophageal reflux disease): (4) Hypertension: (5) COPD (chronic obstructive pulmonary disease): (6) History of intracranial hemorrhage: (7) Dementia associated with alcoholism: Admission and Anticipated Discharge Date Admission Date: July 23, 2022 Supervising Physician Co-Signing Physician Notes Patient seen and examined with PGY-1 Dr. Stevenson. Agree with history, exam findings, assessment and plan of care as outlined. 71 year old male with hx of intracranial hemorrhage, alcohol related cirrhosis, atrial fibrillation, carotid artery stenosis, COPD admitted with altered mental status. Feels ok. No complaints. VS and nursing notes reviewed. NAD. Non-toxic appearing. Breathing is unlabored. No recent labs. 1. Dementia in the setting of prior intracranial bleed and known baseline hepatic encephalopathy. Continue lactulose, rifaximin. Increased AM Seroquel to 25mg. Continue 25mg Seroquel qHS. 2. Hyperbilirubinemia. Secondary to chronic liver disease. 3. Cirrhosis secondary to prior alcohol use. MELD 18. Fluid balance with Lasix 40mg. 4. Atrial fibrillation. No AC due to prior bleed. 5. Hx of intracranial hemorrhage. Continue Keppra. Dispo: waiting for bed availability in a memory unit. Subjective Pt dressed and looking out his window this AM while eating breakfast. Appears to be at his base line. Review of Systems Review of Systems: As per HPI Physical Exam Constitutional: + altered mental status (unchanged) Eyes: + anicteric sclerae and EOM intact bilaterally ENMT: Mouth: + poor dentition Respiratory: normal respiratory effort, lungs clear to auscultation Cardiovascular: Rate/Rhythm: regular rate and regular rhythm Heart Sounds: normal S1 and normal S2 Extremities: no edema Musculoskeletal: Extremities: extremities normal to inspection Skin: no rashes, warm and dry Results & Data Results & [facility] ([facility]) Vital Signs (Past 12 Hours) Vital Signs Temp Pulse Resp BP Pulse Ox O2 Del Method 10/13/22 21:06 36.4 C L 74 18 113/58 L 93 Room Air Resident Activity Tracking Resident Involvement: Resident Care Provided Care Provided: Adult Hospital Medicine
[2022-10-14] MEDS: THIAMINE HCL 100 MG TAB PO SCH (07:25)
[2022-10-14] MEDS: FERROUS SULFATE 325 MG TAB PO SCH ×2 (07:25→20:29)
[2022-10-14] MEDS: LACTULOSE SYRUP 30 GM/45 ML UDP PO SCH ×4 (07:25→20:29)
[2022-10-14] MEDS: PANTOprazole 40 MG TAB PO SCH ×2 (07:25→20:29)
[2022-10-14] MEDS: FUROSEMIDE 40 MG TAB PO SCH ×2 (07:26→17:17)
[2022-10-14] MEDS: QUEtiapine FUMARATE 25 MG TABLET PO SCH ×2 (07:26→20:29)
[2022-10-14] MEDS: rifAXIMin 550 MG TABLET PO SCH ×2 (07:26→20:29)
[2022-10-14] MEDS: lisinopril 5 MG TAB PO SCH (07:26)
[2022-10-14] MEDS: MULTIVITAMIN TAB PO SCH (07:26)
[2022-10-14] MEDS: POTASSIUM CHLORIDE 10 MEQ TABCR PO SCH (07:26)
[2022-10-14] MEDS: levETIRAcetam 500 MG TAB PO SCH ×2 (07:26→20:29)
[2022-10-14] MEDS: UMECLIDINIUM/VILANTEROL 62.5/25MCG 7 PUFFS/INHALER INH SCH (07:27)
[2022-10-14] MEDS: CHOLECALCIFEROL 1,000 UNITS 25 MCG TAB PO SCH (07:27)
[2022-10-14] MEDS ORDERED: QUEtiapine FUMARATE 25 MG TABLET PO ONE (08:23)
--- NOTE | 2022-10-15 07:16 | Hospitalist Progress Note ---
Date of Service October 15, 2022 Assessment & Plan (1) Acute alteration in mental status: Plan: Nicolás is a 71 y/o male with PMH of intracranial hemorrhage, alcohol induced cirrhosis, atrial fibrillation, insomnia, gout, carotid artery stenosis, COPD, who was admitted to the hospital for altered mental status. His presentation was unchanged from previous admission. His confusion is secondary to hepatic encephalopathy with probable component of dementia who continues to await placement. Dementiapreviously was being labeled as delirium, at this point stable baseline dementia most likely related to alcohol abuse and prior intracranial bleed - Baseline mentation - struggles with word finding but is able to communicate more fully and can perform some of his daily activities of living independently. Know hx of alcoholic cirrhosis with previous HE. Admitted 07/22/2022 d/t hyperammonemia of 156. CT Head (08/12) and CXR (07/22) w/o acute change. Blood cx 08/12 neg. UA negative. Recent CXR showed very slight worsening of interstitial pulmonary edema. No consolidations. No intervention necessary at this time. - Continue melatonin 3mg q1800 daily - Delirium precautions ongoing - Continue PO lactulose 30 mg QID, rifaximin 550 mg BID. Goal of 3-4 BMs per day. Lactulose enema PRN - 1:1 per nursing discretion - Seroquel 25 mg BID continue to monitor - Continuing to work with case management to find placement; referrals placed to a variety of facilities and on a few waiting lists - no updates as of 10/15 Hyperbilirubinemia - Pt with elevated bilirubin at 4.8 secondary to chronic liver disease - Lipase and LFT's are within baseline - US liver showed nonvisualization of the gallbladder and common bile duct as well as cirrhosis w/o hepatic mass. Bilirubin stable. Alcoholic Liver Cirrhosis - MELD 18 upon admission - continue lasix 40 mg Atrial Fibrillation - Not on anticoagulation due to recent intraparenchymal hemorrhage - Episodes of irregular rhythm Hypertension - Continue home lisinopril 5 mg Hx of Intracranial Hemorrhage - Continue levetiracetam Deconditioning PT recommends 24/7 care either at SNF or at home with home health depending on family choice - 08/17 PT noted failure to progress beyond requirement of 24 hour supervision: recommended 24 hour care, PCF, and return home; pt originally to go to [facility] 08/19 - Still pending placement: per CM, insurance denied SNF. CM awaiting further news from possible dementia unit bed- to update 10/14 GERD - Continue Protonix COPD - Continue home inhaler Hyponatremia - resolved Diet:Fully alert -minced and moist; less alert -pureed DVT ppx:SCDs only d/t intracranial hemorrhage hx Dispo:CM continues to send referrals; may have bed on locked dementia unit in the next 1-2 weeks pending status of bed availability with recent covid outbreak at center. CM to f/u 10/15 with [facility]. Code Status:DNR/DNI (2) Alcoholic cirrhosis of liver: (3) GERD (gastroesophageal reflux disease): (4) Hypertension: (5) COPD (chronic obstructive pulmonary disease): (6) History of intracranial hemorrhage: (7) Dementia associated with alcoholism: Admission and Anticipated Discharge Date Admission Date: July 23, 2022 Supervising Physician Co-Signing Physician Notes Patient seen and examined with PGY-1 Dr. Stevenson. Agree with history, exam findings, assessment and plan of care as outlined. 71 year old male with hx of intracranial hemorrhage, alcohol related cirrhosis, atrial fibrillation, carotid artery stenosis, COPD admitted with altered mental status. Feels ok. No complaints. VS and nursing notes reviewed. NAD. Non-toxic appearing. Breathing is unlabored. No recent labs. 1. Dementia in the setting of prior intracranial bleed and known baseline hepatic encephalopathy. Continue lactulose, rifaximin. Increased AM Seroquel to 25mg. Continue 25mg Seroquel qHS. 2. Hyperbilirubinemia. Secondary to chronic liver disease. 3. Cirrhosis secondary to prior alcohol use. MELD 18. Fluid balance with Lasix 40mg. 4. Atrial fibrillation. No AC due to prior bleed. 5. Hx of intracranial hemorrhage. Continue Keppra. Dispo: waiting for bed availability in a memory unit. Subjective Pt dressed and walking around his room, looking out the window. Appears to be at his baseline. Review of Systems Review of Systems: As per HPI Physical Exam Constitutional: + altered mental status (unchanged) Eyes: + anicteric sclerae and EOM intact bilaterally ENMT: Mouth: + poor dentition Respiratory: normal respiratory effort, lungs clear to auscultation Cardiovascular: Rate/Rhythm: + irregularly irregular; + abnormal rate and + abnormal rhythm Heart Sounds: normal S1 and normal S2 Extremities: no edema Musculoskeletal: Extremities: extremities normal to inspection Skin: no rashes, warm and dry Results & Data Results & Data ([facility]) Vital Signs (Past 12 Hours) Vital Signs Temp Pulse Resp BP Pulse Ox O2 Del Method 10/15/22 07:08 36.7 C 82 18 147/78 H 94 Room Air 10/14/22 20:55 36.5 C 75 17 115/62 94 Room Air 10/14/22 19:50 Room Air Resident Activity Tracking Resident Involvement: Resident Care Provided Care Provided: Adult Hospital Medicine
[2022-10-15] MEDS: LACTULOSE SYRUP 30 GM/45 ML UDP PO SCH ×4 (08:37→21:47)
[2022-10-15] MEDS: UMECLIDINIUM/VILANTEROL 62.5/25MCG 7 PUFFS/INHALER INH SCH (08:37)
[2022-10-15] MEDS: THIAMINE HCL 100 MG TAB PO SCH (08:38)
[2022-10-15] MEDS: rifAXIMin 550 MG TABLET PO SCH ×2 (08:38→21:47)
[2022-10-15] MEDS: PANTOprazole 40 MG TAB PO SCH ×2 (08:38→21:46)
[2022-10-15] MEDS: levETIRAcetam 500 MG TAB PO SCH ×2 (08:38→21:46)
[2022-10-15] MEDS: QUEtiapine FUMARATE 25 MG TABLET PO SCH ×2 (08:39→21:46)
[2022-10-15] MEDS: lisinopril 5 MG TAB PO SCH (08:39)
[2022-10-15] MEDS: FERROUS SULFATE 325 MG TAB PO SCH ×2 (08:39→21:45)
[2022-10-15] MEDS: CHOLECALCIFEROL 1,000 UNITS 25 MCG TAB PO SCH (08:39)
[2022-10-15] MEDS: FUROSEMIDE 40 MG TAB PO SCH ×2 (08:39→16:30)
[2022-10-15] MEDS: POTASSIUM CHLORIDE 10 MEQ TABCR PO SCH (08:40)
[2022-10-15] MEDS: MULTIVITAMIN TAB PO SCH (08:40)
[2022-10-16] MEDS ORDERED: HALOPERIDOL LACTATE 5 MG/ML 1 ML VIAL IM STA (04:38)
--- NOTE | 2022-10-16 07:06 | Hospitalist Progress Note ---
Date of Service October 16, 2022 Assessment & Plan (1) Acute alteration in mental status: Plan: Nicolás is a 71 y/o male with PMH of intracranial hemorrhage, alcohol induced cirrhosis, atrial fibrillation, insomnia, gout, carotid artery stenosis, COPD, who was admitted to the hospital for altered mental status. His presentation was unchanged from previous admission. His confusion is secondary to hepatic encephalopathy with probable component of dementia who continues to await placement. Dementiapreviously was being labeled as delirium, at this point stable baseline dementia most likely related to alcohol abuse and prior intracranial bleed - Baseline mentation - struggles with word finding but is able to communicate more fully and can perform some of his daily activities of living independently. Know hx of alcoholic cirrhosis with previous HE. Admitted 07/22/2022 d/t hyperammonemia of 156. CT Head (08/12) and CXR (07/22) w/o acute change. Blood cx 08/12 neg. UA negative. Recent CXR showed very slight worsening of interstitial pulmonary edema. No consolidations. No intervention necessary at this time. - Continue melatonin 3mg q1800 daily - Delirium precautions ongoing - Continue PO lactulose 30 mg QID, rifaximin 550 mg BID. Goal of 3-4 BMs per day. Lactulose enema PRN - 1:1 per nursing discretion - Seroquel 25 mg BID continue to monitor - Continuing to work with case management to find placement; referrals placed to a variety of facilities and on a few waiting lists - no updates as of 10/15 Hyperbilirubinemia - Pt with elevated bilirubin at 4.8 secondary to chronic liver disease - Lipase and LFT's are within baseline - US liver showed nonvisualization of the gallbladder and common bile duct as well as cirrhosis w/o hepatic mass. Bilirubin stable. Alcoholic Liver Cirrhosis - MELD 18 upon admission - continue lasix 40 mg Atrial Fibrillation - Not on anticoagulation due to recent intraparenchymal hemorrhage - Episodes of irregular rhythm Hypertension - Continue home lisinopril 5 mg Hx of Intracranial Hemorrhage - Continue levetiracetam Deconditioning PT recommends 24/7 care either at SNF or at home with home health depending on family choice - 08/17 PT noted failure to progress beyond requirement of 24 hour supervision: recommended 24 hour care, PCF, and return home; pt originally to go to [facility] 08/19 - Still pending placement: per CM, insurance denied SNF. CM awaiting further news from possible dementia unit bed- to update 10/14 GERD - Continue Protonix COPD - Continue home inhaler Hyponatremia - resolved Diet:Fully alert -minced and moist; less alert -pureed DVT ppx:SCDs only d/t intracranial hemorrhage hx Dispo:CM continues to send referrals; may have bed on locked dementia unit in the next 1-2 weeks pending status of bed availability with recent covid outbreak at center. CM to f/u 10/15 with [facility]. Code Status:DNR/DNI (2) Alcoholic cirrhosis of liver: (3) GERD (gastroesophageal reflux disease): (4) Hypertension: (5) COPD (chronic obstructive pulmonary disease): (6) History of intracranial hemorrhage: (7) Dementia associated with alcoholism: Admission and Anticipated Discharge Date Admission Date: July 23, 2022 Supervising Physician Co-Signing Physician Notes Patient seen and examined with PGY-1 Dr. Stevenson. Agree with history, exam findings, assessment and plan of care as outlined. 71 year old male with hx of intracranial hemorrhage, alcohol related cirrhosis, atrial fibrillation, carotid artery stenosis, COPD admitted with altered mental status. Feels ok. No complaints. VS and nursing notes reviewed. NAD. Non-toxic appearing. Breathing is unlabored. No recent labs. 1. Dementia in the setting of prior intracranial bleed and known baseline hepatic encephalopathy. Continue lactulose, rifaximin. Increased AM Seroquel to 25mg. Continue 25mg Seroquel qHS. 2. Hyperbilirubinemia. Secondary to chronic liver disease. 3. Cirrhosis secondary to prior alcohol use. MELD 18. Fluid balance with Lasix 40mg. 4. Atrial fibrillation. No AC due to prior bleed. 5. Hx of intracranial hemorrhage. Continue Keppra. Dispo: waiting for bed availability in a memory unit. Subjective Pt dressed and eating breakfast. Appears to be at his baseline. Review of Systems Review of Systems: As per HPI Physical Exam Constitutional: + altered mental status (unchanged) Eyes: EOM intact bilaterally ENMT: Mouth: + poor dentition Respiratory: normal respiratory effort, lungs clear to auscultation Cardiovascular: Rate/Rhythm: + irregularly irregular; + abnormal rate and + abnormal rhythm Heart Sounds: normal S1 and normal S2 Extremities: no eulalia ma Musculoskeletal: Extremities: extremities normal to inspection Skin: no rashes, warm and dry Results & Data Results & Data ([facility]) Vital Signs (Past 12 Hours) Vital Signs Temp Pulse Resp BP Pulse Ox O2 Del Method 10/15/22 20:00 Room Air 10/15/22 21:20 36.3 C L 73 17 106/57 L 93 Room Air Laboratory Results 10/16/22 Range/Units 09:10 Ammonia 80.0 H (18-72) umol/L Resident Activity Tracking Resident Involvement: Resident Care Provided Care Provided: Adult [facility]
[2022-10-16] MEDS: UMECLIDINIUM/VILANTEROL 62.5/25MCG 7 PUFFS/INHALER INH SCH (08:26)
[2022-10-16] MEDS: levETIRAcetam 500 MG TAB PO SCH ×2 (08:27→23:10)
[2022-10-16] MEDS: rifAXIMin 550 MG TABLET PO SCH ×2 (08:27→19:59)
[2022-10-16] MEDS: POTASSIUM CHLORIDE 10 MEQ TABCR PO SCH (08:27)
[2022-10-16] MEDS: lisinopril 5 MG TAB PO SCH (08:28)
[2022-10-16] MEDS: PANTOprazole 40 MG TAB PO SCH ×2 (08:28→19:59)
[2022-10-16] MEDS: QUEtiapine FUMARATE 25 MG TABLET PO SCH ×2 (08:28→19:59)
[2022-10-16] MEDS: THIAMINE HCL 100 MG TAB PO SCH (08:28)
[2022-10-16] MEDS: FERROUS SULFATE 325 MG TAB PO SCH ×2 (08:28→19:59)
[2022-10-16] MEDS: FUROSEMIDE 40 MG TAB PO SCH ×2 (08:29→17:44)
[2022-10-16] MEDS: CHOLECALCIFEROL 1,000 UNITS 25 MCG TAB PO SCH (08:29)
[2022-10-16] MEDS: MULTIVITAMIN TAB PO SCH (08:29)
[2022-10-16] MEDS: LACTULOSE SYRUP 30 GM/45 ML UDP PO SCH ×4 (08:30→20:00)
--- NOTE | 2022-10-17 07:28 | Hospitalist Progress Note ---
Date of Service October 17, 2022 Assessment & Plan (1) Acute alteration in mental status: Plan: Nicolás is a 71 y/o male with PMH of intracranial hemorrhage, alcohol induced cirrhosis, atrial fibrillation, insomnia, gout, carotid artery stenosis, COPD, who was admitted to the hospital for altered mental status. His presentation was unchanged from previous admission. His confusion is secondary to hepatic encephalopathy with probable component of dementia who continues to await placement. Dementiapreviously was being labeled as delirium, at this point stable baseline dementia most likely related to alcohol abuse and prior intracranial bleed - Baseline mentation - struggles with word finding but is able to communicate more fully and can perform some of his daily activities of living independently. Know hx of alcoholic cirrhosis with previous HE. Admitted 07/22/2022 d/t hyperammonemia of 156. CT Head (08/12) and CXR (07/22) w/o acute change. Blood cx 08/12 neg. UA negative. Recent CXR showed very slight worsening of interstitial pulmonary edema. No consolidations. No intervention necessary at this time. - Continue melatonin 3mg q1800 daily - Delirium precautions ongoing - Continue PO lactulose 30 mg QID, rifaximin 550 mg BID. Goal of 3-4 BMs per day. Lactulose enema PRN - 1:1 per nursing discretion - Seroquel 25 mg BID continue to monitor - Continuing to work with case management to find placement; referrals placed to a variety of facilities and on a few waiting lists - no updates as of 10/15 Hyperbilirubinemia - Pt with elevated bilirubin at 4.8 secondary to chronic liver disease - Lipase and LFT's are within baseline - US liver showed nonvisualization of the gallbladder and common bile duct as well as cirrhosis w/o hepatic mass. Bilirubin stable. Alcoholic Liver Cirrhosis - MELD 18 upon admission - continue lasix 40 mg Atrial Fibrillation - Not on anticoagulation due to recent intraparenchymal hemorrhage - Episodes of irregular rhythm Hypertension - Continue home lisinopril 5 mg Hx of Intracranial Hemorrhage - Continue levetiracetam Deconditioning PT recommends 24/7 care either at SNF or at home with home health depending on family choice - 08/17 PT noted failure to progress beyond requirement of 24 hour supervision: recommended 24 hour care, PCF, and return home; pt originally to go [facility] 08/19 - Still pending placement: per CM, insurance denied SNF. CM awaiting further news from possible dementia unit bed- to update 10/14 GERD - Continue Protonix COPD - Continue home inhaler Hyponatremia - resolved Diet:Fully alert -minced and moist; less alert -pureed DVT ppx:SCDs only d/t intracranial hemorrhage hx Dispo:CM continues to send referrals; may have bed on locked dementia unit in the next 1-2 weeks pending status of bed availability with recent covid outbreak at center. CM to f/u 10/15 with [facility]. Code Status:DNR/DNI (2) Alcoholic cirrhosis of liver: (3) GERD (gastroesophageal reflux disease): (4) Hypertension: (5) COPD (chronic obstructive pulmonary disease): (6) History of intracranial hemorrhage: (7) Dementia associated with alcoholism: Admission and Anticipated Discharge Date Admission Date: July 23, 2022 Supervising Physician Co-Signing Physician Notes Patient seen and examined with PGY-1 Dr. Stevenson. Agree with history, exam findings, assessment and plan of care as outlined. 71 year old male with hx of intracranial hemorrhage, alcohol related cirrhosis, atrial fibrillation, carotid artery stenosis, COPD admitted with altered mental status. Feels ok. No complaints. VS and nursing notes reviewed. NAD. Non-toxic appearing. Breathing is unlabored. No recent labs. 1. Dementia in the setting of prior intracranial bleed and known baseline hepatic encephalopathy. Continue lactulose, rifaximin. Increased AM Seroquel to 25mg. Continue 25mg Seroquel qHS. 2. Hyperbilirubinemia. Secondary to chronic liver disease. 3. Cirrhosis secondary to prior alcohol use. MELD 18. Fluid balance with Lasix 40mg. 4. Atrial fibrillation. No AC due to prior bleed. 5. Hx of intracranial hemorrhage. Continue Keppra. Dispo: waiting for bed availability in a memory unit. Subjective Pt dressed and sitting up in his chair. Appears to be at his baseline. Review of Systems Review of Systems: As per HPI Physical Exam Constitutional: + altered mental status (unchanged) Eyes: + anicteric sclerae and EOM intact bilaterally ENMT: Mouth: + poor dentition Respiratory: normal respiratory effort, lungs clear to auscultation Cardiovascular: Rate/Rhythm: + irregularly irregular; + abnormal rate and + abnormal rhythm Heart Sounds: normal S1 and normal S2 Extremities: no edema Musculoskeletal: Extremities: extremities normal to inspection Skin: no rashes, warm and dry Results & Data Results & Data ([facility]) Vital Signs (Past 12 Hours) Vital Signs Temp Pulse Resp BP Pulse Ox O2 Del Method 10/16/22 21:00 Room Air 10/16/22 22:44 36.8 C 82 20 125/64 94 Room Air Resident Activity Tracking Resident Involvement: Resident Care Provided Care Provided: Adult Hospital Medicine
[2022-10-17] MEDS: UMECLIDINIUM/VILANTEROL 62.5/25MCG 7 PUFFS/INHALER INH SCH (09:34)
[2022-10-17] MEDS: FERROUS SULFATE 325 MG TAB PO SCH ×2 (09:34→19:41)
[2022-10-17] MEDS: levETIRAcetam 500 MG TAB PO SCH ×2 (09:34→20:46)
[2022-10-17] MEDS: rifAXIMin 550 MG TABLET PO SCH ×2 (09:34→19:41)
[2022-10-17] MEDS: PANTOprazole 40 MG TAB PO SCH ×2 (09:35→19:39)
[2022-10-17] MEDS: QUEtiapine FUMARATE 25 MG TABLET PO SCH ×2 (09:35→19:40)
[2022-10-17] MEDS: MULTIVITAMIN TAB PO SCH (09:35)
[2022-10-17] MEDS: CHOLECALCIFEROL 1,000 UNITS 25 MCG TAB PO SCH (09:35)
[2022-10-17] MEDS: FUROSEMIDE 40 MG TAB PO SCH ×2 (09:36→17:58)
[2022-10-17] MEDS: POTASSIUM CHLORIDE 10 MEQ TABCR PO SCH (09:36)
[2022-10-17] MEDS: LACTULOSE SYRUP 30 GM/45 ML UDP PO SCH ×5 (09:36→19:50)
[2022-10-17] MEDS: lisinopril 5 MG TAB PO SCH (09:36)
[2022-10-17] MEDS: THIAMINE HCL 100 MG TAB PO SCH (09:36)
[2022-10-17 12:54] LABS: Albumin Globulin Ratio 0.8 (0.9-2); Albumin Level 2.8 gm/dl (3.4-5.0); BUN Creatinine Ratio 21.6 (10-20); Bilirubin,Total 2.4 mg/dl (0.2-1.0); Calcium 8.3 mg/dl (8.5-10.1); Creatinine Clr Calc Pharmacy 72.2 ml/min; Est GFR (African American) 100.2 ml/min; Est GFR (Non-African American) 86.4 ml/min; Globulin 3.3 gm/dl (2.5-4.0); Potassium 3.9 mmol/L (3.5-5.1); Total Protein 6.1 gm/dl (6.0-8.3)
--- NOTE | 2022-10-18 07:25 | Hospitalist Progress Note ---
Date of Service October 18, 2022 Assessment & Plan (1) Acute alteration in mental status: Plan: Nicolás is a 71 y/o male with PMH of intracranial hemorrhage, alcohol induced cirrhosis, atrial fibrillation, insomnia, gout, carotid artery stenosis, COPD, who was admitted to the hospital for altered mental status. His presentation was unchanged from previous admission. His confusion is secondary to hepatic encephalopathy with probable component of dementia who continues to await placement. Dementiapreviously was being labeled as delirium, at this point stable baseline dementia most likely related to alcohol abuse and prior intracranial bleed - Baseline mentation - struggles with word finding but is able to communicate more fully and can perform some of his daily activities of living independently. Know hx of alcoholic cirrhosis with previous HE. Admitted 07/22/2022 d/t hyperammonemia of 156. CT Head (08/12) and CXR (07/22) w/o acute change. Blood cx 08/12 neg. UA negative. Recent CXR showed very slight worsening of interstitial pulmonary edema. No consolidations. No intervention necessary at this time. - Continue melatonin 3mg q1800 daily - Delirium precautions ongoing - Continue PO lactulose 30 mg QID, rifaximin 550 mg BID. Goal of 3-4 BMs per day. Lactulose enema PRN - 1:1 per nursing discretion - Seroquel 25 mg BID continue to monitor - Continuing to work with case management to find placement; referrals placed to a variety of facilities and on a few waiting lists - no updates as of 10/18 Hyperbilirubinemia - Pt with elevated bilirubin at 4.8 secondary to chronic liver disease - Lipase and LFT's are within baseline - US liver showed nonvisualization of the gallbladder and common bile duct as well as cirrhosis w/o hepatic mass. Bilirubin stable. Alcoholic Liver Cirrhosis - MELD 18 upon admission - continue lasix 40 mg Atrial Fibrillation - Not on anticoagulation due to recent intraparenchymal hemorrhage - Episodes of irregular rhythm Hypertension - Continue home lisinopril 5 mg Hx of Intracranial Hemorrhage - Continue levetiracetam Deconditioning PT recommends 24/7 care either at SNF or at home with home health depending on family choice - 08/17 PT noted failure to progress beyond requirement of 24 hour supervision: recommended 24 hour care, PCF, and return home; pt originally to go to [facility] 08/19 - Still pending placement: per CM, insurance denied SNF. CM awaiting further news from possible dementia unit bed- to update 10/14 GERD - Continue Protonix COPD - Continue home inhaler Hyponatremia - resolved Diet:Fully alert -minced and moist; less alert -pureed DVT ppx:SCDs only d/t intracranial hemorrhage hx Dispo:CM continues to send referrals; may have bed on locked dementia unit in the next 1-2 weeks pending status of bed availability with recent covid outbreak at center. CM to f/u 10/18 with [facility]. Code Status:DNR/DNI (2) Alcoholic cirrhosis of liver: (3) GERD (gastroesophageal reflux disease): (4) Hypertension: (5) COPD (chronic obstructive pulmonary disease): (6) History of intracranial hemorrhage: (7) Dementia associated with alcoholism: Admission and Anticipated Discharge Date Admission Date: July 23, 2022 Supervising Physician Co-Signing Physician Notes Attending attestation Pt seen and examined in concert with Dr. Stevenson. In agreement with the documented findings as noted in the resident documentation with any exceptions or additions as noted here. No acute complaints, resting comfortably in chair. VS, nursing notes reviewed. On examination, S1/S2 nl RRR no MCG. CTAB. Abd NT/ND BS+ve. Dementia w/ h/o intracranial bleed, hepatic encephalopathy - continue lactulose, rifaximin. Continue Seroquel at 25mg BID dosing and monitor. Continue 1:1 Else see resident documentation as noted. Subjective Pt dressed and sitting up eating breakfast. Appears to be at his baseline. Review of Systems Review of Systems: As per HPI Physical Exam Constitutional: + altered mental status (unchanged) Eyes: + anicteric sclerae and EOM intact bilaterally ENMT: Mouth: + poor dentition Respiratory: normal respiratory effort, lungs clear to auscultation Cardiovascular: Rate/Rhythm: + irregularly irregular; + abnormal rate and + abnormal rhythm Heart Sounds: normal S1 and normal S2 Extremities: no edema Musculoskeletal: Extremities: extremities normal to inspection Skin: no rashes, warm and dry Results & Data Results & Data ([facility]) Vital Signs (Past 12 Hours) Vital Signs Temp Pulse Resp BP Pulse Ox O2 Del Method 10/17/22 20:51 36.7 C 66 17 125/72 93 Room Air 10/17/22 19:51 Room Air Laboratory Results 10/17/22 Range/Units 11:57 Sodium 138 (136-145) mmol/L Potassium 3.9 (3.5-5.1) mmol/L Chloride 107 (98-107) mmol/L Carbon Dioxide 26 (21-32) mmol/L Anion Gap 5 (3-11) BUN 19 (6-23) mg/dl Creatinine 0.88 (0.6-1.4) mg/dl Est Cr Clr Drug Dosing 72.2 ml/min Est GFR ( Amer) 100.2 ml/min Est GFR (Non-Af Amer) 86.4 ml/min BUN/Creatinine Ratio 21.6 H (10-20) Glucose 75 (70-99(Fasting)) mg/dl Calcium 8.3 L (8.5-10.1) mg/dl Total Bilirubin 2.4 H (0.2-1.0) mg/dl AST 33 (13-39) U/L ALT 12 (7-52) U/L Alkaline Phosphatase 115 H (34-104) U/L Total Protein 6.1 (6.0-8.3) gm/dl Albumin 2.8 L (3.4-5.0) gm/dl Globulin 3.3 (2.5-4.0) gm/dl Albumin/Globulin Ratio 0.8 L (0.9-2) Resident Activity Tracking Resident Involvement: Resident Care Provided Care Provided: Adult Hospital Medicine
[2022-10-18] MEDS: POTASSIUM CHLORIDE 10 MEQ TABCR PO SCH (07:32)
[2022-10-18] MEDS: QUEtiapine FUMARATE 25 MG TABLET PO SCH ×2 (07:32→20:09)
[2022-10-18] MEDS: lisinopril 5 MG TAB PO SCH (07:32)
[2022-10-19] MEDS ORDERED: HALOPERIDOL LACTATE 5 MG/ML 1 ML VIAL ONE ×2 (01:24→01:26)
[2022-10-19] MEDS ORDERED: HALOPERIDOL LACTATE 5 MG/ML 1 ML VIAL IM STA ×2 (01:30→02:09)
--- NOTE | 2022-10-19 07:42 | Hospitalist Progress Note ---
Date of Service October 19, 2022 Assessment & Plan (1) Acute alteration in mental status: Plan: Nicolás is a 71 y/o male with PMH of intracranial hemorrhage, alcohol induced cirrhosis, atrial fibrillation, insomnia, gout, carotid artery stenosis, COPD, who was admitted to the hospital for altered mental status. His presentation was unchanged from previous admission. His confusion is secondary to hepatic encephalopathy with probable component of dementia who continues to await placement. Dementia with hx of hepatic encephalitis and prior intracranial bleed Know hx of alcoholic cirrhosis with previous HE. Admitted 07/22/2022 d/t hypera mmonemia of 156. CT Head (08/12) and CXR (07/22) w/o acute change. Blood cx 08/12 neg. UA negative. Baseline mentation: struggles with word finding but is able to communicate and can perform some of his daily activities of living independently. Overnight patient became agitated with staff. He required haldo 5 mg x2 and soft restraints. Patient less aggressive this AM. Patient's symptoms are worse at night. Increase Seroquel to 50mg QHS. Continue QAM 25 mg dose. [] delirium precautions, melatonin, seroquel - 25QAM & 50QHS, 1:1 per nursing discretion [] lactulose 30 mg QID, lactulose enema PRN, rifaximin 550 mg BID - titrate to goal 3-4 soft, formed BM QD [] continuing to work with case management to find placement; referrals placed to a variety of facilities and on a few waiting lists - no updates as of 10/19 Alcoholic Liver Cirrhosis w/ hyperbilirubinemia Pt with elevated bilirubin at 4.8 secondary to chronic liver disease. Lipase and LFT's are within baseline. US liver showed nonvisualization of the gallbladder and common bile duct as well as cirrhosis w/o hepatic mass. Bilirubin stable. [] MELD 18 upon admission [] continue lasix 40 mg Atrial Fibrillation Not on anticoagulation due to recent intraparenchymal hemorrhage. Episodes of irregular rhythm Hypertension Continue home lisinopril 5 mg Hx of Intracranial Hemorrhage Continue levetiracetam Deconditioning PT recommends 24/7 care either at SNF or at home with home health depending on family choice. Still pending placement: per CM, insurance denied SNF. CM awaiting further news from possible dementia unit bed at [facility]. GERD Continue Protonix COPD Continue home inhaler Electrolyte imbalances Electrolytes were monitored and repleted as necessary during admission. Diet:Fully alert -minced and moist; less alert -pureed DVT ppx:SCDs only d/t intracranial hemorrhage hx Dispo:CM continues to send referrals; may have bed on locked dementia unit in the next 1-2 weeks pending status of bed availability with recent covid outbreak at center. CM to f/u with [facility]. Code Status:DNR/DNI (2) Alcoholic cirrhosis of liver: (3) GERD (gastroesophageal reflux disease): (4) Hypertension: (5) COPD (chronic obstructive pulmonary disease): (6) History of intracranial hemorrhage: (7) Dementia associated with alcoholism: Admission and Anticipated Discharge Date Admission Date: July 23, 2022 Supervising Physician Co-Signing Physician Notes Attending attestation Pt seen and examined in concert with Dr. Stevenson. In agreement with the documented findings as noted in the resident documentation with any exceptions or additions as noted here. No acute complaints, resting comfortably in chair. Significant agitation and aggression overnight requiring haldol, restraints. VS, nursing notes reviewed. On examination, S1/S2 nl RRR no MCG. CTAB. Abd NT/ND BS+ve. Dementia w/ h/o intracranial bleed, hepatic encephalopathy - continue lactulose, rifaximin. Increase Seroquel to 50mg qHS and 25mg daily and monitor. Continue 1:1 Else see resident documentation as noted. Subjective Patient seen at bedside this AM. Patient asleep with soft restraints in place. Review of Systems Review of Systems: As per HPI Physical Exam Constitutional: asleep with soft restraints in place ENMT: Mouth: + poor dentition Respiratory: breathing comfortably, no increased work of breathing Cardiovascular: Extremities: no edema clinically well perfused Musculoskeletal: Extremities: extremities normal to inspection Skin: no rashes, warm and dry Results & Data Results & Data ([facility]) Vital Signs (Past 12 Hours) Vital Signs Temp Pulse Resp BP Pulse Ox O2 Del Method 10/18/22 20:07 36.5 C 68 18 138/71 94 Room Air Resident Activity Tracking Resident Involvement: Resident Care Provided Care Provided: Adult Hospital Medicine
[2022-10-19] MEDS: POTASSIUM CHLORIDE 10 MEQ TABCR PO SCH (09:00)
[2022-10-19] MEDS: QUEtiapine FUMARATE 25 MG TABLET PO SCH (09:00)
[2022-10-19] MEDS: lisinopril 5 MG TAB PO SCH (09:00)
[2022-10-20] MEDS: QUEtiapine FUMARATE 25 MG TABLET PO SCH ×3 (02:31→21:10)
--- NOTE | 2022-10-20 07:11 | Hospitalist Progress Note ---
Date of Service October 20, 2022 Assessment & Plan (1) Acute alteration in mental status: Plan: Nicolás is a 71 y/o male with PMH of intracranial hemorrhage, alcohol induced cirrhosis, atrial fibrillation, insomnia, gout, carotid artery stenosis, COPD, who was admitted to the hospital for altered mental status in the setting of hepatic encephalitis, prior intracranial bleeding, and dementia who continues to await placement. Dementia with hx of hepatic encephalitis and prior intracranial bleed Know hx of alcoholic cirrhosis with previous HE. Admitted 07/22/2022 d/t hyperammonemia of 156. CT Head (08/12) and CXR (07/22) w/o acute change. Blood cx 08/12 neg. UA negative. Baseline mentation: struggles with word finding but is able to communicate and can perform some of his daily activities of living independently. Aggression improved with increased dose of seroquel 25 AQM 50 QHS. [] delirium precautions, melatonin, seroquel - 25QAM & 50QHS, 1:1 per nursing discretion [] lactulose 30 mg QID, lactulose enema PRN, rifaximin 550 mg BID - titrate to goal 3-4 soft, formed BM QD [] continuing to work with case management to find placement; referrals placed to a variety of facilities and on a few waiting lists - no updates as of 10/19 Alcoholic Liver Cirrhosis w/ hyperbilirubinemia Pt with elevated bilirubin at 4.8 secondary to chronic liver disease. Lipase and LFT's are within baseline. US liver showed nonvisualization of the gallbladder and common bile duct as well as cirrhosis w/o hepatic mass. Bilirubin stable. [] MELD 18 upon admission [] continue lasix 40 mg Atrial Fibrillation Not on anticoagulation due to recent intraparenchymal hemorrhage. Episodes of irregular rhythm Hypertension Continue home lisinopril 5 mg Hx of Intracranial Hemorrhage Continue levetiracetam Deconditioning PT recommends 24/ care either at SNF or at home with home health depending on family choice. Still pending placement: per CM, insurance denied SNF. CM awaiting further news from possible dementia unit bed at [facility] [place]. GERD Continue Protonix COPD Continue home inhaler Electrolyte imbalances Electrolytes were monitored and repleted as necessary during admission. Diet:Fully alert -minced and moist; less alert -pureed DVT ppx:SCDs only d/t intracranial hemorrhage hx Dispo:CM continues to send referrals; may have bed on locked dementia unit in the next 1-2 weeks pending status of bed availability with recent covid outbreak at center. CM to f/u with [facility]. Code Status:DNR/DNI (2) Alcoholic cirrhosis of liver: (3) GERD (gastroesophageal reflux disease): (4) Hypertension: (5) COPD (chronic obstructive pulmonary disease): (6) History of intracranial hemorrhage: (7) Dementia associated with alcoholism: Admission and Anticipated Discharge Date Admission Date: July 23, 2022 Supervising Physician Co-Signing Physician Notes Attending attestation Pt seen and examined in concert with Dr. Stevenson. In agreement with the documented findings as noted in the resident documentation with any exceptions or additions as noted here. No acute complaints, resting comfortably in chair. Minimal agitation on increased Seroquel dose. VS, nursing notes reviewed. On examination, S1/S2 nl RRR no MCG. CTAB. Abd NT/ND BS+ve. Dementia w/ h/o intracranial bleed, hepatic encephalopathy - continue lactulose, rifaximin. Continue Seroquel at 50mg qHS and 25mg daily and monitor. Continue 1:1 Else see resident documentation as noted. Subjective Patient seen at bedside this AM. Appears to be much more calm and cooperative with increased dose of Seroquel. Review of Systems Review of Systems: As per HPI Physical Exam Constitutional: + altered mental status (unchanged) Eyes: + anicteric sclerae and EOM intact bilaterally ENMT: Mouth: + poor dentition Respiratory: normal respiratory effort, lungs clear to auscultation Cardiovascular: Rate/Rhythm: + irregularly irregular; + abnormal rate and + abnormal rhythm Heart Sounds: normal S1 and normal S2 Extremities: no edema Musculoskeletal: Extremities: extremities normal to inspection Skin: no rashes, warm and dry Resident Activity Tracking Resident Involvement: Resident Care Provided Care Provided: Adult Hospital Medicine
[2022-10-20] MEDS: POTASSIUM CHLORIDE 10 MEQ TABCR PO SCH (08:07)
[2022-10-20] MEDS: lisinopril 5 MG TAB PO SCH (08:07)
--- NOTE | 2022-10-21 06:53 | Hospitalist Progress Note ---
Date of Service October 21, 2022 Assessment & Plan (1) Acute alteration in mental status: Plan: Nicolás is a 71 y/o male with PMH of intracranial hemorrhage, alcohol induced cirrhosis, atrial fibrillation, insomnia, gout, carotid artery stenosis, COPD, who was admitted to the hospital for altered mental status in the setting of hepatic encephalitis, prior intracranial bleeding, and dementia who continues to await placement. Dementia with hx of hepatic encephalitis and prior intracranial bleed Know hx of alcoholic cirrhosis with previous HE. Admitted 07/22/2022 d/t hyperammonemia of 156. CT Head (08/12) and CXR (07/22) w/o acute change. Blood cx 08/12 neg. UA negative. Baseline mentation: struggles with word finding but is able to communicate and perform some of his daily activities of living independently. Aggression improved with increased dose of seroquel 25 AQM 50 QHS. [] delirium precautions, melatonin, seroquel - 25QAM & 50QHS, 1:1 per nursing discretion [] lactulose 30 mg QID, lactulose enema PRN, rifaximin 550 mg BID - titrate to goal 3-4 soft, formed BM QD [] continuing to work with case management to find placement; referrals placed to a variety of facilities and on a few waiting lists - no updates as of 10/21 Alcoholic Liver Cirrhosis w/ hyperbilirubinemia Pt with elevated bilirubin at 4.8 secondary to chronic liver disease. Lipase and LFT's are within baseline. US liver showed nonvisualization of the gallbladder and common bile duct as well as cirrhosis w/o hepatic mass. Bilirubin stable. [] MELD 18 upon admission [] continue lasix 40 mg Atrial Fibrillation Not on anticoagulation due to recent intraparenchymal hemorrhage. Episodes of irregular rhythm Hypertension Continue home lisinopril 5 mg Hx of Intracranial Hemorrhage Continue levetiracetam Deconditioning PT recommends 24/7 care either at SNF or at home with home health depending on family choice. Still pending placement: per CM, insurance denied SNF. CM awaiting further news from possible dementia unit bed at [facility]. GERD Continue Protonix COPD Continue home inhaler Electrolyte imbalances Electrolytes were monitored and repleted as necessary during admission. Diet:Fully alert -minced and moist; less alert -pureed DVT ppx:SCDs only d/t intracranial hemorrhage hx Dispo:CM continues to send referrals; may have bed on locked dementia unit in the next 1-2 weeks pending status of bed availability with recent covid outbreak at center. CM to f/u with [facility]. Code Status:DNR/DNI (2) Alcoholic cirrhosis of liver: (3) GERD (gastroesophageal reflux disease): (4) Hypertension: (5) COPD (chronic obstructive pulmonary disease): (6) History of intracranial hemorrhage: (7) Dementia associated with alcoholism: Admission and Anticipated Discharge Date Admission Date: July 23, 2022 Supervising Physician Co-Signing Physician Notes Attending attestation I personally examined the patient and verified all lebron points of history and exam, discussed case, and agree with decision making with Dr Stevenson Sitting in bed. Looking at the window. No new issues noted. Vitals noted, in general appears to be in no distress. Breathing unlabored. No asymmetry at rest. Dementia w/ h/o intracranial bleed, hepatic encephalopathy - continue lactulose, rifaximin. Continue Seroquel at 50mg qHS and 25mg daily and monitor. Awaiting placement. Else see resident documentation as noted. Subjective Patient seen at bedside this AM. Continues to be much more calm and cooperative with increased dose of Seroquel. Review of Systems Review of Systems: As per HPI Physical Exam Constitutional: + altered mental status (unchanged) Eyes: + anicteric sclerae and EOM intact bilaterally ENMT: Mouth: + poor dentition Respiratory: normal respiratory effort, lungs clear to auscultation Cardiovascular: Rate/Rhythm: + irregularly irregular; + abnormal rate and + abnormal rhythm Heart Sounds: normal S1 and normal S2 Extremities: no edema Musculoskeletal: Extremities: extremities normal to inspection Skin: no rashes, warm and dry Results & Data Results & Data ([facility]) Vital Signs (Past 12 Hours) Vital Signs Temp Pulse Resp BP Pulse Ox O2 Del Method 10/20/22 20:30 Room Air 10/20/22 21:26 36.6 C 61 20 120/65 94 Room Air Resident Activity Tracking Resident Involvement: Resident Care Provided Care Provided: Adult Hospital Medicine
[2022-10-21] MEDS: QUEtiapine FUMARATE 25 MG TABLET PO SCH ×2 (08:10→20:55)
--- NOTE | 2022-10-21 18:24 | Billing Data ---
Date of Service October 21, 2022 Coding Level of Care Code 33189 Subseq Hosp Care Lvl 1
--- NOTE | 2022-10-22 07:18 | Hospitalist Progress Note ---
Date of Service October 22, 2022 Assessment & Plan (1) Acute alteration in mental status: Plan: Nicolás is a 71 y/o male with PMH of intracranial hemorrhage, alcohol induced cirrhosis, atrial fibrillation, insomnia, gout, carotid artery stenosis, COPD, who was admitted to the hospital for altered mental status in the setting of hepatic encephalitis, prior intracranial bleeding, and dementia who continues to await placement. Dementia with hx of hepatic encephalitis and prior intracranial bleed Know hx of alcoholic cirrhosis with previous HE. Admitted 07/22/2022 d/t hyperammonemia of 156. CT Head (08/12) and CXR (07/22) w/o acute change. Blood cx 08/12 neg. UA negative. Baseline mentation: struggles with word finding but is able to communicate and perform some of his daily activities of living independently. Aggression improved with increased dose of seroquel 25 AQM 50 QHS. [] delirium precautions, melatonin, seroquel - 25QAM & 50QHS, 1:1 per nursing discretion [] lactulose 30 mg QID, lactulose enema PRN, rifaximin 550 mg BID - titrate to goal 3-4 soft, formed BM QD [] continuing to work with case management to find placement; referrals placed to a variety of facilities and on a few waiting lists - insurance won't authori danya for long-term, so he will go to [facility] pending, working on this now 10/22 Alcoholic Liver Cirrhosis w/ hyperbilirubinemia Pt with elevated bilirubin at 4.8 secondary to chronic liver disease. Lipase and LFT's are within baseline. US liver showed nonvisualization of the gallbladder and common bile duct as well as cirrhosis w/o hepatic mass. Bilirubin stable. [] MELD 18 upon admission [] continue lasix 40 mg Atrial Fibrillation Not on anticoagulation due to recent intraparenchymal hemorrhage. Episodes of irregular rhythm Hypertension Continue home lisinopril 5 mg Hx of Intracranial Hemorrhage Continue levetiracetam Deconditioning PT recommends 24/ care either at SNF or at home with home health depending on family choice. Still pending placement: per CM, insurance denied SNF. CM awaiting further news from possible dementia unit bed at [facility]. GERD Continue Protonix COPD Continue home inhaler Electrolyte imbalances Electrolytes were monitored and repleted as necessary during admission. Diet:Fully alert -minced and moist; less alert -pureed DVT ppx:SCDs only d/t intracranial hemorrhage hx Dispo:CM continues to send referrals; may have bed on locked dementia unit in the next 1-2 weeks pending status of bed availability with recent covid outbreak at center. CM to f/u with [facility]. Code Status:DNR/DNI (2) Alcoholic cirrhosis of liver: (3) GERD (gastroesophageal reflux disease): (4) Hypertension: (5) COPD (chronic obstructive pulmonary disease): (6) History of intracranial hemorrhage: (7) Dementia associated with alcoholism: Admission and Anticipated Discharge Date Admission Date: July 23, 2022 Supervising Physician Co-Signing Physician Notes Attending attestation I personally examined the patient and verified all lebron points of history and exam, discussed case, and agree with decision making with Dr Stevenson Sitting in bed. Looking at the window. Makes eye contact and talks some, albeit nonsensically. Vitals noted, in general appears to be in no distress. Breathing unlabored. No asymmetry at rest. Dementia w/ h/o intracranial bleed, hepatic encephalopathy - continue lactulose, rifaximin. Continue Seroquel at 50mg qHS and 25mg daily and monitor. Still awaiting placement. Else see resident documentation as noted. Subjective Patient seen at bedside this AM. Continues to be much more calm and cooperative with increased dose of Seroquel. Review of Systems Review of Systems: As per HPI Physical Exam Constitutional: + altered mental status (unchanged) Eyes: + anicteric sclerae and EOM intact bilaterally ENMT: Mouth: + poor dentition Respiratory: breathing comfortably on room air Cardiovascular: Extremities: no edema clinically well perfused Musculoskeletal: Extremities: extremities normal to inspection Skin: no rashes, warm and dry Results & Data Results & Data ([facility]) Vital Signs (Past 12 Hours) Vital Signs Temp Pulse Resp BP Pulse Ox O2 Del Method 10/22/22 07:09 36.7 C 92 H 18 155/75 H 92 Room Air 10/21/22 20:00 Room Air 10/21/22 20:53 36.5 C 57 L 18 128/56 L 95 Room Air Resident Activity Tracking Resident Involvement: Resident Care Provided Care Provided: Adult [facility] Medicine
[2022-10-22] MEDS: QUEtiapine FUMARATE 25 MG TABLET PO SCH ×2 (07:56→20:39)
--- NOTE | 2022-10-22 19:48 | Billing Data ---
Date of Service October 22, 2022 Coding Level of Care Code 23285 SUB INP/OBS CARE
--- NOTE | 2022-10-23 06:51 | Hospitalist Progress Note ---
Date of Service October 23, 2022 Assessment & Plan (1) Acute alteration in mental status: Plan: Nicolás is a 71 y/o male with PMH of intracranial hemorrhage, alcohol induced cirrhosis, atrial fibrillation, insomnia, gout, carotid artery stenosis, COPD, who was admitted to the hospital for altered mental status in the setting of hepatic encephalitis, prior intracranial bleeding, and dementia who continues to await placement. Dementia with hx of hepatic encephalitis and prior intracranial bleed Know hx of alcoholic cirrhosis with previous HE. Admitted 07/22/2022 d/t hyperammonemia of 156. CT Head (08/12) and CXR (07/22) w/o acute change. Blood cx 08/12 neg. UA negative. Baseline mentation: struggles with word finding but is able to communicate and perform some of his daily activities of living independently. [] delirium precautions, melatonin, seroquel - 25QAM & 50QHS, 1:1 per nursing discretion [] lactulose 30 mg QID, lactulose enema PRN, rifaximin 550 mg BID - titrate to goal 3-4 soft, formed BM QD [] continuing to work with case management to find placement; referrals placed to a variety of facilities and on a few waiting lists - insurance won't authorize for longterm, so he will go to [facility] [place] pending, working on this now 10/22 Alcoholic Liver Cirrhosis w/ hyperbilirubinemia Pt with elevated bilirubin at 4.8 secondary to chronic liver disease. Lipase and LFT's are within baseline. US liver showed nonvisualization of the gallbladder and common bile duct as well as cirrhosis w/o hepatic mass. Bilirubin stable. [] MELD 18 upon admission [] continue lasix 40 mg Atrial Fibrillation Not on anticoagulation due to recent intraparenchymal hemorrhage. Episodes of irregular rhythm Hypertension Continue home lisinopril 5 mg Hx of Intracranial Hemorrhage Continue levetiracetam Deconditioning PT recommends 24/ care either at SNF or at home with home health depending on family choice. Still pending placement: per CM, insurance denied SNF. CM awaiting further news from possible dementia unit bed at [facility]. GERD Continue Protonix COPD Continue home inhaler Electrolyte imbalances Electrolytes were monitored and repleted as necessary during admission. Diet:Fully alert -minced and moist; less alert -pureed DVT ppx:SCDs only d/t intracranial hemorrhage hx Dispo:CM continues to send referrals; may have bed on locked dementia unit in the next 1-2 weeks pending status of bed availability with recent covid outbreak at center. CM to f/u with [facility]. Code Status:DNR/DNI (2) Alcoholic cirrhosis of liver: (3) GERD (gastroesophageal reflux disease): (4) Hypertension: (5) COPD (chronic obstructive pulmonary disease): (6) History of intracranial hemorrhage: (7) Dementia associated with alcoholism: Admission and Anticipated Discharge Date Admission Date: July 23, 2022 Supervising Physician Co-Signing Physician Notes Attending attestation I personally examined the patient and verified all lebron points of history and exam, discussed case, and agree with decision making with Dr Stevenson Sitting in bed. Looking at the window. Vitals noted, in general appears to be in no distress. Breathing unlabored. No asymmetry at rest. Dementia w/ h/o intracranial bleed, hepatic encephalopathy - continue lactulose, rifaximin. Continue Seroquel at 50mg qHS and 25mg daily and monitor. again awaiting placement. otherwise as above Subjective Patient seen at bedside this AM. Continues to be much more calm and cooperative with increased dose of Seroquel. Review of Systems Review of Systems: As per HPI Physical Exam Physical Exam: Gen: altered mental status HEENT: poor dentition Resp: no increased work of breathing CV: no edema, clinically well perfused Results & Data Results & Data ([facility]) Vital Signs (Past 12 Hours) Vital Signs Temp Pulse Resp BP Pulse Ox O2 Del Method 10/22/22 23:50 36.6 C 64 16 124/57 L 95 Room Air 10/22/22 19:21 Room Air Resident Activity Tracking Resident Involvement: Resident Care Provided Care Provided: Adult Hospital Medicine
[2022-10-23] MEDS: QUEtiapine FUMARATE 25 MG TABLET PO SCH ×2 (07:59→20:13)
--- NOTE | 2022-10-23 20:59 | Billing Data ---
Date of Service October 23, 2022 Coding Level of Care Code 16926 SUB INP/OBS CARE
--- NOTE | 2022-10-24 07:28 | Hospitalist Progress Note ---
Date of Service October 24, 2022 Assessment & Plan (1) Acute alteration in mental status: Plan: Nicolás is a 71 y/o male with PMH of intracranial hemorrhage, alcohol induced cirrhosis, atrial fibrillation, insomnia, gout, carotid artery stenosis, COPD, who was admitted to the hospital for altered mental status in the setting of hepatic encephalitis, prior intracranial bleeding, and dementia who continues to await placement. Dementia with hx of hepatic encephalitis and prior intracranial bleed Know hx of alcoholic cirrhosis with previous HE. Admitted 07/22/2022 d/t hyperammonemia of 156. CT Head (08/12) and CXR (07/22) w/o acute change. Blood cx 08/12 neg. UA negative. Baseline mentation: struggles with word finding but is able to communicate and perform some of his daily activities of living independently. [] delirium precautions, melatonin, seroquel - 25QAM & 50QHS, 1:1 per nursing discretion [] lactulose 30 mg QID, lactulose enema PRN, rifaximin 550 mg BID - titrate to goal 3-4 soft, formed BM QD [] continuing to work with case management to find placement; referrals placed to a variety of facilities and on a few waiting lists - insurance won't authorize for fdc, so he will go to [facility] [place] pending, working on this now 10/22 Alcoholic Liver Cirrhosis w/ hyperbilirubinemia Pt with elevated bilirubin at 4.8 secondary to chronic liver disease. Lipase and LFT's are within baseline. US liver showed nonvisualization of the gallbladder and common bile duct as well as cirrhosis w/o hepatic mass. Bilirubin stable. [] MELD 18 upon admission [] continue lasix 40 mg Atrial Fibrillation Not on anticoagulation due to recent intraparenchymal hemorrhage. Episodes of irregular rhythm Hypertension Continue home lisinopril 5 mg Hx of Intracranial Hemorrhage Continue levetiracetam Deconditioning PT recommends 24/ care either at SNF or at home with home health depending on family choice. Still pending placement: per CM, insurance denied SNF. CM awaiting further news from possible dementia unit bed at [facility]. GERD Continue Protonix COPD Continue home inhaler Electrolyte imbalances Electrolytes were monitored and repleted as necessary during admission. Diet:Fully alert -minced and moist; less alert -pureed DVT ppx:SCDs only d/t intracranial hemorrhage hx Dispo:CM continues to send referrals; may have bed on locked dementia unit in the next 1-2 weeks pending status of bed availability with recent covid outbreak at center. CM to f/u with [facility]. Code Status:DNR/DNI (2) Alcoholic cirrhosis of liver: (3) GERD (gastroesophageal reflux disease): (4) Hypertension: (5) COPD (chronic obstructive pulmonary disease): (6) History of intracranial hemorrhage: (7) Dementia associated with alcoholism: Admission and Anticipated Discharge Date Admission Date: July 23, 2022 Supervising Physician Co-Signing Physician Notes Attending attestation I personally examined the patient and verified all lebron points of history and exam, discussed case, and agree with decision making with Dr Stevenson walking in room wtih walker, talking somewhat nonsensically. Vitals noted, in general appears to be in no distress. Breathing unlabored. No asymmetry at rest. Dementia w/ h/o intracranial bleed, hepatic encephalopathy - continue lactulose, rifaximin. Continue Seroquel at 50mg qHS and 25mg daily and monitor. still waiting placement otherwise as above Subjective Patient seen at bedside this AM. Continues to be much more calm and cooperative with increased dose of Seroquel. Review of Systems Review of Systems: As per HPI Physical Exam Physical Exam: Gen: altered mental status HEENT: poor dentition Resp: no increased work of breathing CV: no edema, clinically well perfused Results & Data Results & Data ([facility]) Vital Signs (Past 12 Hours) Vital Signs Temp Pulse Resp BP Pulse Ox O2 Del Method 10/24/22 01:13 36.6 C 75 16 137/71 92 Room Air 10/23/22 20:10 Room Air Laboratory Results 10/24/22 10/24/22 Range/Units 08:26 08:26 WBC 4.74 L (4.8-10.8) K/ul RBC 3.73 L (4.63-6.08) M/uL Hgb 13.1 L (14.0-18.0) g/dl Hct 37.2 L (40.1-51.0) % MCV 99.7 (80.0-100.0) fL MCH 35.1 H (25.0-34.0) pg MCHC 35.2 (32.0-36.0) g/dL RDW Std Deviation 47.5 H (36.4-46.3) fL RDW Coeff of Ramses 12.9 (11.5-14.5) % Plt Count 108 L (130-400) K/uL MPV 10.2 (9.4-12.4) fL Sodium 139 (136-145) mmol/L Potassium 4.2 (3.5-5.1) mmol/L Chloride 109 H (98-107) mmol/L Carbon Dioxide 25 (21-32) mmol/L Anion Gap 5 (3-11) BUN 14 (6-23) mg/dl Creatinine 0.86 (0.6-1.4) mg/dl Est Cr Clr Drug Dosing 73.8 ml/min Est GFR ( Amer) 101.1 ml/min Est GFR (Non-Af Amer) 87.2 ml/min BUN/Creatinine Ratio 16.3 (10-20) Glucose 95 (70-99(Fasting)) mg/dl Calcium 8.2 L (8.5-10.1) mg/dl Total Bilirubin 2.7 H (0.2-1.0) mg/dl AST 32 (13-39) U/L ALT 13 (7-52) U/L Alkaline Phosphatase 112 H (34-104) U/L Total Protein 6.1 (6.0-8.3) gm/dl Albumin 2.9 L (3.4-5.0) gm/dl Globulin 3.2 (2.5-4.0) gm/dl Albumin/Globulin Ratio 0.9 (0.9-2) Resident Activity Tracking Resident Involvement: Resident Care Provided Care Provided: Adult [facility] Medicine
[2022-10-24] MEDS: QUEtiapine FUMARATE 25 MG TABLET PO SCH ×2 (08:49→21:32)
[2022-10-24 09:15] LABS: Hematocrit (blood only) 37.2 % (40.1-51.0); Hemoglobin 13.1 g/dl (14.0-18.0); Mean Platelet Volume 10.2 fL (9.4-12.4); Platelet Count 108 K/uL (130-400); White Blood Count 4.74 K/ul (4.8-10.8)
[2022-10-24 09:47] LABS: Albumin Globulin Ratio 0.9 (0.9-2); Albumin Level 2.9 gm/dl (3.4-5.0); BUN Creatinine Ratio 16.3 (10-20); Bilirubin,Total 2.7 mg/dl (0.2-1.0); Calcium 8.2 mg/dl (8.5-10.1); Creatinine Clr Calc Pharmacy 73.8 ml/min; Est GFR (African American) 101.1 ml/min; Est GFR (Non-African American) 87.2 ml/min; Globulin 3.2 gm/dl (2.5-4.0); Potassium 4.2 mmol/L (3.5-5.1); Total Protein 6.1 gm/dl (6.0-8.3)
[2022-10-24 09:49] LABS: Mean Corpuscular Hemoglobin 35.1 pg (25.0-34.0); Mean Corpuscular Hgb Conc 35.2 g/dL (32.0-36.0); Mean Corpuscular Volume 99.7 fL (80.0-100.0); RDW Coefficient of Variation 12.9 % (11.5-14.5); RDW Standard Deviation 47.5 fL (36.4-46.3); Red Blood Count 3.73 M/uL (4.63-6.08)
[2022-10-24] MEDS ORDERED: FAMOTIDINE 20 MG TAB PO ONE (14:39)
[2022-10-24] MEDS ORDERED: CALCIUM CARBONATE 500 MG CHEWABLE TAB PO PRN (14:39)
--- NOTE | 2022-10-24 19:34 | Billing Data ---
Date of Service October 24, 2022 Coding Level of Care Code 44982 SUB INP/OBS CARE
[2022-10-24] MEDS: rifAXIMin 550 MG TABLET PO SCH (21:32)
[2022-10-24] MEDS: MELATONIN 3 MG TAB PO SCH (21:32)
--- NOTE | 2022-10-25 07:27 | Hospitalist Progress Note ---
Date of Service October 25, 2022 Assessment & Plan (1) Acute alteration in mental status: Plan: Nicolás is a 71 y/o male with PMH of intracranial hemorrhage, alcohol induced cirrhosis, atrial fibrillation, insomnia, gout, carotid artery stenosis, COPD, who was admitted to the hospital for altered mental status in the setting of hepatic encephalitis, prior intracranial bleeding, and dementia who continues to await placement. Dementia with hx of hepatic encephalitis and prior intracranial bleed Know hx of alcoholic cirrhosis with previous HE. Admitted 07/22/2022 d/t hyperammonemia of 156. CT Head (08/12) and CXR (07/22) w/o acute change. Blood cx 08/12 neg. UA negative. Baseline mentation: struggles with word finding but is able to communicate and perform some of his daily activities of living independently. [] delirium precautions, melatonin, seroquel - 25QAM & 50QHS, 1:1 per nursing discretion [] lactulose 30 mg QID, lactulose enema PRN, rifaximin 550 mg BID - titrate to goal 3-4 soft, formed BM QD [] continuing to work with case management to find placement; referrals placed to a variety of facilities and on a few waiting lists - insurance won't authorize for assisted, so he will go to [facility] pending, working on this now Alcoholic Liver Cirrhosis w/ hyperbilirubinemia Pt with elevated bilirubin at 4.8 secondary to chronic liver disease. Lipase and LFT's are within baseline. US liver showed nonvisualization of the gallbladder and common bile duct as well as cirrhosis w/o hepatic mass. Bilirubin stable. [] MELD 18 upon admission [] continue lasix 40 mg Atrial Fibrillation Not on anticoagulation due to recent intraparenchymal hemorrhage. Episodes of irregular rhythm Hypertension Continue home lisinopril 5 mg Hx of Intracranial Hemorrhage Continue levetiracetam Deconditioning PT recommends 24/7 care either at SNF or at home with home health depending on family choice. Still pending placement: per CM, insurance denied SNF. CM awaiting further news from possible dementia unit bed at [facility]. GERD Continue Protonix COPD Continue home inhaler Electrolyte imbalances Electrolytes were monitored and repleted as necessary during admission. Diet:Fully alert -minced and moist; less alert -pureed DVT ppx:SCDs only d/t intracranial hemorrhage hx Dispo:CM continues to send referrals; may have bed on locked dementia unit in the next 1-2 weeks pending status of bed availability with recent covid outbreak at center. CM to f/u with [facility]. Code Status:DNR/DNI (2) Alcoholic cirrhosis of liver: (3) GERD (gastroesophageal reflux disease): (4) Hypertension: (5) COPD (chronic obstructive pulmonary disease): (6) History of intracranial hemorrhage: (7) Dementia associated with alcoholism: Admission and Anticipated Discharge Date Admission Date: July 23, 2022 Supervising Physician Co-Signing Physician Notes Attending attestation I personally examined the patient and verified all lebron points of history and exam, discussed case, and agree with decision making with Dr Stevenson sitting in the chair. Vitals noted, in general appears to be in no distress. Breathing unlabored. skin without pallor. Dementia w/ h/o intracranial bleed, hepatic encephalopathy - continue lactulose, rifaximin. Continue Seroquel at 50mg qHS and 25mg daily and monitor. continues to wait on placement otherwise as above Subjective Patient seen at bedside this AM. Continues to be much more calm and cooperative with increased dose of Seroquel. Review of Systems Review of Systems: As per HPI Physical Exam Physical Exam: Gen: altered mental status HEENT: poor dentition Resp: no increased work of breathing CV: no edema, clinically well perfused Results & Data Results & Data ([facility]) Vital Signs (Past 12 Hours) Vital Signs Temp Pulse Resp BP Pulse Ox O2 Del Method 10/24/22 21:30 Room Air 10/24/22 21:56 37.2 C 75 16 146/72 H 93 Room Air Laboratory Results 10/24/22 10/24/22 Range/Units 08:26 08:26 RBC 3.73 L (4.63-6.08) M/uL MCV 99.7 (80.0-100.0) fL MCH 35.1 H (25.0-34.0) pg MCHC 35.2 (32.0-36.0) g/dL RDW Std Deviation 47.5 H (36.4-46.3) fL RDW Coeff of Ramses 12.9 (11.5-14.5) % Sodium 139 (136-145) mmol/L Potassium 4.2 (3.5-5.1) mmol/L Chloride 109 H (98-107) mmol/L Carbon Dioxide 25 (21-32) mmol/L Anion Gap 5 (3-11) BUN 14 (6-23) mg/dl Creatinine 0.86 (0.6-1.4) mg/dl Est Cr Clr Drug Dosing 73.8 ml/min Est GFR ( Amer) 101.1 ml/min Est GFR (Non-Af Amer) 87.2 ml/min BUN/Creatinine Ratio 16.3 (10-20) Glucose 95 (70-99(Fasting)) mg/dl Calcium 8.2 L (8.5-10.1) mg/dl Total Bilirubin 2.7 H (0.2-1.0) mg/dl AST 32 (13-39) U/L ALT 13 (7-52) U/L Alkaline Phosphatase 112 H (34-104) U/L Total Protein 6.1 (6.0-8.3) gm/dl Albumin 2.9 L (3.4-5.0) gm/dl Globulin 3.2 (2.5-4.0) gm/dl Albumin/Globulin Ratio 0.9 (0.9-2) Resident Activity Tracking Resident Involvement: Resident Care Provided Care Provided: Adult Hospital Medicine
[2022-10-25] MEDS: CHOLECALCIFEROL 1,000 UNITS 25 MCG TAB PO SCH (08:53)
[2022-10-25] MEDS: FOLIC ACID 1 MG TAB PO SCH (08:53)
[2022-10-25] MEDS: MULTIVITAMIN TAB PO SCH (08:54)
[2022-10-25] MEDS: PANTOprazole 40 MG TAB PO SCH (08:54)
[2022-10-25] MEDS: rifAXIMin 550 MG TABLET PO SCH ×2 (08:55→20:53)
[2022-10-25] MEDS: QUEtiapine FUMARATE 25 MG TABLET PO SCH ×2 (08:55→20:53)
[2022-10-25] MEDS: THIAMINE HCL 100 MG TAB PO SCH (08:56)
[2022-10-25] MEDS: UMECLIDINIUM/VILANTEROL 62.5/25MCG 7 PUFFS/INHALER INH SCH (08:56)
[2022-10-25] MEDS: LACTULOSE SYRUP 20 GM/30 ML UDC PO SCH (08:58)
--- NOTE | 2022-10-25 16:29 | Billing Data ---
Date of Service October 25, 2022 Coding Level of Care Code 08558 SUB INP/OBS CARE
[2022-10-25] MEDS: MELATONIN 3 MG TAB PO SCH (20:52)
--- NOTE | 2022-10-26 06:48 | Hospitalist Progress Note ---
Date of Service October 26, 2022 Assessment & Plan (1) Acute alteration in mental status: (2) Alcoholic cirrhosis of liver: (3) GERD (gastroesophageal reflux disease): (4) Hypertension: (5) COPD (chronic obstructive pulmonary disease): (6) History of intracranial hemorrhage: (7) Dementia associated with alcoholism: Plan Nicolás is a 71 y/o male with PMH of intracranial hemorrhage, alcohol induced cirrhosis, atrial fibrillation, insomnia, gout, carotid artery stenosis, COPD, who was admitted to the hospital for altered mental status in the setting of hepatic encephalitis, prior intracranial bleeding, and dementia who continues to await placement. Dementia w/ known hx of Hepatic Encephalopathy - Know hx of alcoholic cirrhosis with previous HE - Admitted 07/22/2022 d/t hyperammonemia of 156. - CT Head (08/12) and CXR (07/22) w/o acute change - Blood cx 08/12 neg. UA negative. - Baseline mentation: struggles with word finding but is able to communicate and perform some of his daily activities of living independently. --- Continue delirium precautions, Melatonin, Seroquel - 25QAM & 50QHS, and 1:1 per nursing discretion --- Continue Lactulose 30 mg QID, Lactulose enema PRN, Rifaximin 550 mg BID - goal 3-4 soft, formed BM daily --- CM working on placement; [facility] pending, to follow Friday10/28/22 Alcoholic Liver Cirrhosis w/ hyperbilirubinemia - Pt with elevated bilirubin at 4.8 secondary to chronic liver disease, stable - MELD 18 upon admission - Lipase and LFT's are within baseline. - US liver showed nonvisualization of the gallbladder and common bile duct as well as cirrhosis w/o hepatic mass --- Continue Lasix 40 mg Atrial Fibrillation - Not on anticoagulation due to recent intracranial hemorrhage - Episodes of irregular rhythm Hypertension - Continue home lisinopril 5 mg Hx of Intracranial Hemorrhage - Continue levetiracetam Deconditioning - PT recommends 24 care either at SNF or at home with home health depending on family choice - Still pending placement: per CM, insurance denied SNF --- CM awaiting further news from possible dementia unit bed at [facility]. GERD - Continue Protonix COPD - Continue home inhaler Electrolyte imbalances - Electrolytes were monitored and repleted as necessary during admission. Diet:Fully alert -minced and moist; less alert - pureed DVT ppx:SCDs only d/t intracranial hemorrhage hx Dispo:CM to f/u with [facility]. Code Status:DNR/DNI Admission and Anticipated Discharge Date Admission Date: July 23, 2022 Supervising Physician Co-Signing Physician Notes Attending attestation I personally examined the patient and verified all lebron points of history and exam, discussed case, and agree with decision making with Dr Stevenson sitting in the chair, facing the window. Vitals noted, in general appears to be in no distress. Breathing unlabored. skin without pallor. Dementia w/ h/o intracranial bleed, hepatic encephalopathy - continue lactulose, rifaximin. Continue Seroquel at 50mg qHS and 25mg daily and monitor. hospital day #95, waiting on placement otherwise as above Douglas Monzon is a 71 y/o male with PMH of intracranial hemorrhage, alcohol induced cirrhosis, atrial fibrillation, insomnia, gout, carotid artery stenosis, COPD, who was admitted to the hospital for altered mental status in the setting of hepatic encephalitis, prior intracranial bleeding, and dementia who continues to await placement. Patient evaluated at bedside this AM, patient remains calm and pleasant this morning. Attempts to converse but, no meaningful HPI. Review of Systems Review of Systems: As per HPI Physical Exam Physical Exam: Gen: NAD, disoriented, AO x 0 Resp:Non-labored, no wheezing/rhonchi/rales, CTAB CV:Irregular-irregular, normal S1/S2, no M/R/G Abd: Soft, non-distended, no TTP, normoactive bowels, no masses Results & Data Results & Data ([facility]) Vital Signs (Past 12 Hours) Vital Signs Temp Pulse Resp BP Pulse Ox O2 Del Method 10/25/22 20:57 36.6 C 78 16 130/76 93 Room Air Resident Activity Tracking Resident Involvement: Resident Care Provided Care Provided: Adult Hospital Medicine
[2022-10-26] MEDS: MULTIVITAMIN TAB PO SCH (08:03)
[2022-10-26] MEDS: FOLIC ACID 1 MG TAB PO SCH (08:03)
[2022-10-26] MEDS: CHOLECALCIFEROL 1,000 UNITS 25 MCG TAB PO SCH (08:03)
[2022-10-26] MEDS: PANTOprazole 40 MG TAB PO SCH (08:03)
[2022-10-26] MEDS: UMECLIDINIUM/VILANTEROL 62.5/25MCG 7 PUFFS/INHALER INH SCH (08:04)
[2022-10-26] MEDS: LACTULOSE SYRUP 20 GM/30 ML UDC PO SCH (08:04)
[2022-10-26] MEDS: QUEtiapine FUMARATE 25 MG TABLET PO SCH ×2 (08:04→19:17)
[2022-10-26] MEDS: rifAXIMin 550 MG TABLET PO SCH ×2 (08:04→19:17)
[2022-10-26] MEDS: THIAMINE HCL 100 MG TAB PO SCH (08:04)
--- NOTE | 2022-10-26 19:10 | Billing Data ---
Date of Service October 26, 2022 Coding Level of Care Code 78677 SUB INP/OBS CARE
[2022-10-26] MEDS: MELATONIN 3 MG TAB PO SCH (19:17)
--- NOTE | 2022-10-27 06:43 | Hospitalist Progress Note ---
Date of Service October 27, 2022 Assessment & Plan (1) Acute alteration in mental status: (2) Alcoholic cirrhosis of liver: (3) GERD (gastroesophageal reflux disease): (4) Hypertension: (5) COPD (chronic obstructive pulmonary disease): (6) History of intracranial hemorrhage: (7) Dementia associated with alcoholism: Plan Nicolás is a 71 y/o male with PMH of intracranial hemorrhage, alcohol induced cirrhosis, atrial fibrillation, insomnia, gout, carotid artery stenosis, COPD, who was admitted to the hospital for altered mental status in the setting of hepatic encephalitis, prior intracranial bleeding, and dementia who continues to await placement. Dementia w/ known hx of Hepatic Encephalopathy - Know hx of alcoholic cirrhosis with previous HE - Admitted 07/22/2022 d/t hyperammonemia of 156. - CT Head (08/12) and CXR (07/22) w/o acute change - Blood cx 08/12 neg. UA negative. - Baseline mentation: struggles with word finding but is able to communicate and perform some of his daily activities of living independently. --- Continue delirium precautions, Melatonin, Seroquel - 25QAM & 50QHS, and 1:1 per nursing discretion --- Continue Lactulose 30 mg QID, Lactulose enema PRN, Rifaximin 550 mg BID - goal 3-4 soft, formed BM daily --- CM working on placement; [facility] pending, to follow Friday10/28/22 Alcoholic Liver Cirrhosis w/ hyperbilirubinemia - Pt with elevated bilirubin at 4.8 secondary to chronic liver disease, stable - MELD 18 upon admission - Lipase and LFT's are within baseline. - US liver showed nonvisualization of the gallbladder and common bile duct as well as cirrhosis w/o hepatic mass --- Continue Lasix 40 mg daily Atrial Fibrillation - Not on anticoagulation due to recent intracranial hemorrhage - Episodes of irregular rhythm Hypertension - Continue home lisinopril 5 mg Hx of Intracranial Hemorrhage - Continue levetiracetam Deconditioning - PT recommends 12/05 care either at SNF or at home with home health depending on family choice - Still pending placement: per CM, insurance denied SNF --- CM awaiting further news from possible dementia unit bed at [facility], update expected Friday GERD - Continue Protonix COPD - Continue home inhaler Electrolyte imbalances - Electrolytes were monitored and repleted as necessary during admission. Diet:Fully alert -minced and moist; less alert - pureed DVT ppx:SCDs Dispo:CM to f/u with [facility] Friday Code Status:DNR/DNI Admission and Anticipated Discharge Date Admission Date: July 23, 2022 Supervising Physician Co-Signing Physician Notes Attending attestation I personally examined the patient and verified all lebron points of history and exam, discussed case, and agree with decision making with Dr Chisholm sitting in the chair again, once again facing the window. Vitals noted, in general appears to be in no distress. Breathing unlabored. skin without pallor. Dementia w/ h/o intracranial bleed, hepatic encephalopathy - continue lactulose, rifaximin. Continue Seroquel at 50mg qHS and 25mg daily and monitor. hospital day #96, waiting on placement otherwise as above Douglas Monzon is a 71 y/o male with PMH of intracranial hemorrhage, alcohol induced cirrhosis, atrial fibrillation, insomnia, gout, carotid artery stenosis, COPD, w ho was admitted to the hospital for altered mental status in the setting of hepatic encephalitis, prior intracranial bleeding, and dementia who continues to await placement. Patient sitting upright eating breakfast upon arrival, patient remains calm and pleasant this morning. Attempts to converse but, no meaningful HPI. Review of Systems Review of Systems: As per HPI Physical Exam Physical Exam: Gen: NAD, disoriented, AO x 0 Resp:Non-labored, no wheezing/rhonchi/rales, CTAB CV:Irregular-irregular, normal S1/S2, no M/R/G Abd: Soft, non-distended, no TTP, normoactive bowels, no masses Ext: No LE edema Results & Data Results & Data ([facility]) Vital Signs (Past 12 Hours) Vital Signs Temp Pulse Resp BP Pulse Ox O2 Del Method 10/26/22 20:20 36.4 C L 72 18 133/75 94 Room Air Resident Activity Tracking Resident Involvement: Resident Care Provided Care Provided: Adult Hospital Medicine
[2022-10-27] MEDS: QUEtiapine FUMARATE 25 MG TABLET PO SCH ×2 (08:28→20:21)
[2022-10-27] MEDS: MULTIVITAMIN TAB PO SCH (08:28)
[2022-10-27] MEDS: rifAXIMin 550 MG TABLET PO SCH ×2 (08:28→20:21)
[2022-10-27] MEDS: FOLIC ACID 1 MG TAB PO SCH (08:28)
[2022-10-27] MEDS: THIAMINE HCL 100 MG TAB PO SCH (08:28)
[2022-10-27] MEDS: PANTOprazole 40 MG TAB PO SCH (08:28)
[2022-10-27] MEDS: CHOLECALCIFEROL 1,000 UNITS 25 MCG TAB PO SCH (08:28)
[2022-10-27] MEDS: UMECLIDINIUM/VILANTEROL 62.5/25MCG 7 PUFFS/INHALER INH SCH (08:29)
[2022-10-27] MEDS: LACTULOSE SYRUP 20 GM/30 ML UDC PO SCH (08:29)
--- NOTE | 2022-10-27 17:14 | Billing Data ---
Date of Service October 27, 2022 Coding Level of Care Code 74331 SUB INP/OBS CARE
[2022-10-27] MEDS: MELATONIN 3 MG TAB PO SCH (20:23)
--- NOTE | 2022-10-28 07:38 | Hospitalist Progress Note ---
Date of Service October 28, 2022 Assessment & Plan (1) Acute alteration in mental status: (2) Alcoholic cirrhosis of liver: (3) GERD (gastroesophageal reflux disease): (4) Hypertension: (5) COPD (chronic obstructive pulmonary disease): (6) History of intracranial hemorrhage: (7) Dementia associated with alcoholism: Plan Nicolás is a 71 y/o male with PMH of intracranial hemorrhage, alcohol induced cirrhosis, atrial fibrillation, insomnia, gout, carotid artery stenosis, COPD, who was admitted to the hospital for altered mental status in the setting of hepatic encephalitis, prior intracranial bleeding, and dementia who continues to await placement. Dementia w/ known hx of Hepatic Encephalopathy - Know hx of alcoholic cirrhosis with previous HE - Admitted 07/22/2022 d/t hyperammonemia of 156. - CT Head (08/12) and CXR (07/22) w/o acute change - Blood cx 08/12 neg. UA negative. - Baseline mentation: struggles with word finding but is able to communicate and perform some of his daily activities of living independently. --- Continue delirium precautions, Melatonin, Seroquel - 25QAM & 50QHS, and 1:1 per nursing discretion --- Continue Lactulose 30 mg QID, Lactulose enema PRN, Rifaximin 550 mg BID - goal 3-4 soft, formed BM daily --- CM working on placement; [facility] pending, on 10/28/2022 case management talked to [facility] and patient will be accepted there once family returns financial packet to them. Alcoholic Liver Cirrhosis w/ hyperbilirubinemia - Pt with elevated bilirubin at 4.8 secondary to chronic liver disease, stable - MELD 18 upon admission - Lipase and LFT's are within baseline. - US liver showed nonvisualization of the gallbladder and common bile duct as well as cirrhosis w/o hepatic mass --- Continue Lasix 40 mg daily Atrial Fibrillation - Not on anticoagulation due to recent intracranial hemorrhage - Episodes of irregular rhythm Hypertension - Continue home lisinopril 5 mg Hx of Intracranial Hemorrhage - Continue levetiracetam Deconditioning - PT recommends 12/05 care either at SNF or at home with home health depending on family choice - Still pending placement: per CM, insurance denied SNF --- CM awaiting further news from possible dementia unit bed at [facility], u pdate expected Friday GERD - Continue Protonix COPD - Continue home inhaler Electrolyte imbalances - Electrolytes were monitored and repleted as necessary during admission. Diet:Fully alert -minced and moist; less alert - pureed DVT ppx:SCDs Dispo:CM to f/u with Family and [facility] this week Code Status:DNR/DNI Thank you for allowing me to participate in the care of your patient. -Dr. Anuj Paredes PGY1 Admission and Anticipated Discharge Date Admission Date: July 23, 2022 Supervising Physician Co-Signing Physician Notes Attending attestation I personally examined the patient and verified all lebron points of history and exam, discussed case, and agree with decision making of resident physician sitting in the chair again, comfortable. Vitals noted, in general appears to be in no distress. Breathing unlabored. skin without pallor. Dementia w/ h/o intracranial bleed, hepatic encephalopathy - continue lactulose, rifaximin. Continue Seroquel at 50mg qHS and 25mg daily and monitor. hospital day #97, waiting on placement otherwise as above Subjective Patient was seen beside this AM. He has no issues or complaints at this time. He is A&Ox1. Review of Systems Review of Systems: Unobtainable due to cognitive status Physical Exam Constitutional: WD/WN, vitals as above Respiratory: normal respiratory effort, lungs clear to auscultation Cardiovascular: RRR, no murmur, no edema Gastrointestinal (Abdomen): normal bowel sounds, soft, nontender, no hepatosplenomegaly Musculoskeletal: no cyanosis or clubbing, extremities motor strength 5/5 Skin: no rashes, warm and dry Psychiatric: Orientation: alert and oriented to person; + not oriented to place and + not oriented to time Results & Data Results & Data ([facility]) Vital Signs (Past 12 Hours) Vital Signs Temp Pulse Resp BP Pulse Ox O2 Del Method 10/28/22 07:13 36.6 C 70 16 130/70 95 Room Air 10/27/22 20:19 36.8 C 72 16 136/70 95 Room Air Resident Activity Tracking Resident Involvement: Resident Care Provided Care Provided: Adult Hospital Medicine
[2022-10-28] MEDS: CHOLECALCIFEROL 1,000 UNITS 25 MCG TAB PO SCH (09:13)
[2022-10-28] MEDS: UMECLIDINIUM/VILANTEROL 62.5/25MCG 7 PUFFS/INHALER INH SCH (09:13)
[2022-10-28] MEDS: LACTULOSE SYRUP 20 GM/30 ML UDC PO SCH (09:13)
[2022-10-28] MEDS: rifAXIMin 550 MG TABLET PO SCH ×2 (09:14→19:33)
[2022-10-28] MEDS: MULTIVITAMIN TAB PO SCH (09:14)
[2022-10-28] MEDS: PANTOprazole 40 MG TAB PO SCH (09:14)
[2022-10-28] MEDS: QUEtiapine FUMARATE 25 MG TABLET PO SCH ×2 (09:14→19:33)
[2022-10-28] MEDS: FOLIC ACID 1 MG TAB PO SCH (09:14)
[2022-10-28] MEDS: THIAMINE HCL 100 MG TAB PO SCH (09:14)
[2022-10-28] MEDS ORDERED: ARTIFICIAL TEARS OP PRN (14:39)
[2022-10-28] MEDS ORDERED: ALBUTEROL HFA 8 GM INHALER INH PRN (14:39)
[2022-10-28] MEDS: FERROUS SULFATE 325 MG TAB PO SCH (16:04)
[2022-10-28] MEDS: MELATONIN 3 MG TAB PO SCH (19:38)
--- NOTE | 2022-10-29 07:02 | Hospitalist Progress Note ---
Date of Service October 29, 2022 Assessment & Plan (1) Acute alteration in mental status: (2) Alcoholic cirrhosis of liver: (3) GERD (gastroesophageal reflux disease): (4) Hypertension: (5) COPD (chronic obstructive pulmonary disease): (6) History of intracranial hemorrhage: (7) Dementia associated with alcoholism: Plan Nicolás is a 71 y/o male with PMH of intracranial hemorrhage, alcohol induced cirrhosis, atrial fibrillation, insomnia, gout, carotid artery stenosis, COPD, who was admitted to the hospital for altered mental status in the setting of hepatic encephalitis, prior intracranial bleeding, and dementia who continues to await placement. Dementia w/ known hx of Hepatic Encephalopathy - Know hx of alcoholic cirrhosis with previous HE - Admitted 07/22/2022 d/t hyperammonemia of 156. - CT Head (08/12) and CXR (07/22) w/o acute change - Blood cx 08/12 neg. UA negative. - Baseline mentation: struggles with word finding but is able to communicate and perform some of his daily activities of living independently. --- Continue delirium precautions, Melatonin, Seroquel - 25QAM & 50QHS, and 1:1 per nursing discretion --- Continue Lactulose 30 mg QID, Lactulose enema PRN, Rifaximin 550 mg BID - goal 3-4 soft, formed BM daily --- CM working on placement; [facility] pending, on 10/28/2022 case management talked to [facility] and patient will be accepted there once family returns financial packet to them. No changes made as of 10/29. Alcoholic Liver Cirrhosis w/ hyperbilirubinemia - Pt with elevated bilirubin at 4.8 secondary to chronic liver disease, stable - MELD 18 upon admission - Lipase and LFT's are within baseline. - US liver showed nonvisualization of the gallbladder and common bile duct as well as cirrhosis w/o hepatic mass --- Continue Lasix 40 mg daily Atrial Fibrillation - Not on anticoagulation due to recent intracranial hemorrhage - Episodes of irregular rhythm Hypertension - Continue home lisinopril 5 mg Hx of Intracranial Hemorrhage - Continue levetiracetam Deconditioning - PT recommends 24/7 care either at SNF or at home with home health depending on family choice - Still pending placement: per CM, insurance denied SNF --- CM awaiting further news from possible dementia unit bed at [facility], update expected Friday GERD - Continue Protonix COPD - Continue home inhaler Electrolyte imbalances - Electrolytes were monitored and repleted as necessary during admission. Diet:Fully alert -minced and moist; less alert - pureed DVT ppx:SCDs Dispo:CM to f/u with Family and [facility] this week Code Status:DNR/DNI Thank you for allowing me to participate in the care of your patient. -Dr. Anuj Paredes PGY1 Admission and Anticipated Discharge Date Admission Date: July 23, 2022 Supervising Physician Co-Signing Physician Notes Resident Physician Supervision Note: I independently interviewed and examined the patient and verified the lebron history and physical, reviewed labs and image studies and agree with resident findings and care plan. Subjective Patient was seen beside this AM. He has no issues or complaints at this time. He is A&Ox1. He is asking when he will be going home. Review of Systems Review of Systems: Unobtainable due to cognitive status Physical Exam Constitutional: WD/WN, vitals as above + altered mental status, cooperative, comfortable, + in distress and + combative Eyes: PERRL, conjunctivae normal, anicteric sclerae PERRL Respiratory: normal respiratory effort, lungs clear to auscultation Cardiovascular: RRR, no murmur, no edema Rate/Rhythm: + irregularly irregular Heart Sounds: normal S1 and normal S2 Gastrointestinal (Abdomen): normal bowel sounds, soft, nontender, no hepatosplenomegaly Percussion/Palpation: abdomen soft; abdomen nontender Musculoskeletal: no cyanosis or clubbing, extremities motor strength 5/5 Skin: no rashes, warm and dry Psychiatric: Orientation: alert and oriented to person; + not oriented to place and + not oriented to time Lymphatic: no cervical or axillary lymphadenopathy Results & Data Results & Data ([facility]) Vital Signs (Past 12 Hours) Vital Signs Temp Pulse Resp BP Pulse Ox O2 Del Method 10/29/22 06:59 36.7 C 85 16 135/76 97 Room Air 10/28/22 19:41 36.8 C 88 18 132/74 97 Room Air
[2022-10-29] MEDS: THIAMINE HCL 100 MG TAB PO SCH (08:14)
[2022-10-29] MEDS: rifAXIMin 550 MG TABLET PO SCH ×2 (08:14→19:55)
[2022-10-29] MEDS: PANTOprazole 40 MG TAB PO SCH (08:14)
[2022-10-29] MEDS: FERROUS SULFATE 325 MG TAB PO SCH ×2 (08:14→17:57)
[2022-10-29] MEDS: MULTIVITAMIN TAB PO SCH (08:14)
[2022-10-29] MEDS: FOLIC ACID 1 MG TAB PO SCH (08:14)
[2022-10-29] MEDS: lisinopril 5 MG TAB PO SCH (08:14)
[2022-10-29] MEDS: QUEtiapine FUMARATE 25 MG TABLET PO SCH ×2 (08:14→19:55)
[2022-10-29] MEDS: UMECLIDINIUM/VILANTEROL 62.5/25MCG 7 PUFFS/INHALER INH SCH (08:15)
[2022-10-29] MEDS: LACTULOSE SYRUP 20 GM/30 ML UDC PO SCH (08:15)
[2022-10-29] MEDS: CHOLECALCIFEROL 1,000 UNITS 25 MCG TAB PO SCH (08:15)
[2022-10-29] MEDS: MELATONIN 3 MG TAB PO SCH (19:57)
--- NOTE | 2022-10-30 06:53 | Hospitalist Progress Note ---
Date of Service October 30, 2022 Assessment & Plan (1) Acute alteration in mental status: (2) Alcoholic cirrhosis of liver: (3) GERD (gastroesophageal reflux disease): (4) Hypertension: (5) COPD (chronic obstructive pulmonary disease): (6) History of intracranial hemorrhage: (7) Dementia associated with alcoholism: Plan Nicolás is a 71 y/o male with PMH of intracranial hemorrhage, alcohol induced cirrhosis, atrial fibrillation, insomnia, gout, carotid artery stenosis, COPD, who was admitted to the hospital for altered mental status in the setting of hepatic encephalitis, prior intracranial bleeding, and dementia who continues to await placement. Dementia w/ known hx of Hepatic Encephalopathy - Know hx of alcoholic cirrhosis with previous HE - Admitted 07/22/2022 d/t hyperammonemia of 156. - CT Head (08/12) and CXR (07/22) w/o acute change - Blood cx 08/12 neg. UA negative. - Baseline mentation: struggles with word finding but is able to communicate and perform some of his daily activities of living independently. --- Continue delirium precautions, Melatonin, Seroquel - 25QAM & 50QHS, and 1:1 per nursing discretion --- Continue Lactulose 30 mg QID, Lactulose enema PRN, Rifaximin 550 mg BID - goal 3-4 soft, formed BM daily --- CM working on placement; [facility] pending, on 10/28/2022 case management talked to [facility] and patient will be accepted there once family returns financial packet to them. Case management will reach out to family again on 10/30. Alcoholic Liver Cirrhosis w/ hyperbilirubinemia - Pt with elevated bilirubin at 4.8 secondary to chronic liver disease, stable - MELD 18 upon admission - Lipase and LFT's are within baseline. - US liver showed nonvisualization of the gallbladder and common bile duct as well as cirrhosis w/o hepatic mass --- Continue Lasix 40 mg daily Atrial Fibrillation - Not on anticoagulation due to recent intracranial hemorrhage - Episodes of irregular rhythm Hypertension - Continue home lisinopril 5 mg Hx of Intracranial Hemorrhage - Continue levetiracetam Deconditioning - PT recommends 24/7 care either at SNF or at home with home health depending on family choice - Still pending placement: per CM, insurance denied SNF --- CM awaiting further news from possible dementia unit bed at [facility], update expected Friday GERD - Continue Protonix COPD - Continue home inhaler Electrolyte imbalances - Electrolytes were monitored and repleted as necessary during admission. Diet:Fully alert -minced and moist; less alert - pureed DVT ppx:SCDs Dispo:CM to f/u with Family and [facility] this week Code Status:DNR/DNI Thank you for allowing me to participate in the care of your patient. -Dr. Anuj Paredes PGY1 Admission and Anticipated Discharge Date Admission Date: July 23, 2022 Supervising Physician Co-Signing Physician Notes Resident Physician Supervision Note: I independently interviewed and examined the patient and verified the lebron history and physical, reviewed labs and image studies and agree with resident findings and care plan. Subjective Patient was seen beside this AM. No changes to his mental status. Review of Systems Review of Systems: Unobtainable due to cognitive status Physical Exam Constitutional: WD/WN, vitals as above + altered mental status, cooperative and comfortable Eyes: PERRL, conjunctivae normal, anicteric sclerae Respiratory: normal respiratory effort, lungs clear to auscultation Cardiovascular: RRR, no murmur, no edema Gastrointestinal (Abdomen): normal bowel sounds, soft, nontender, no hepatosplenomegaly Musculoskeletal: no cyanosis or clubbing, extremities motor strength 5/5 Skin: no rashes, warm and dry Psychiatric: Orientation: alert and oriented to person; + not oriented to place and + not oriented to time Lymphatic: no cervical or axillary lymphadenopathy Results & Data Results & Data ([facility]) Vital Signs (Past 12 Hours) Vital Signs Temp Pulse Resp BP Pulse Ox O2 Del Method 10/29/22 19:50 36.8 C 76 18 136/79 96 Room Air
[2022-10-30] MEDS: FERROUS SULFATE 325 MG TAB PO SCH ×2 (09:09→17:50)
[2022-10-30] MEDS: rifAXIMin 550 MG TABLET PO SCH ×2 (09:09→19:33)
[2022-10-30] MEDS: lisinopril 5 MG TAB PO SCH (09:09)
[2022-10-30] MEDS: FOLIC ACID 1 MG TAB PO SCH (09:09)
[2022-10-30] MEDS: PANTOprazole 40 MG TAB PO SCH (09:09)
[2022-10-30] MEDS: THIAMINE HCL 100 MG TAB PO SCH (09:09)
[2022-10-30] MEDS: MULTIVITAMIN TAB PO SCH (09:09)
[2022-10-30] MEDS: CHOLECALCIFEROL 1,000 UNITS 25 MCG TAB PO SCH (09:09)
[2022-10-30] MEDS: QUEtiapine FUMARATE 25 MG TABLET PO SCH ×2 (09:09→19:34)
[2022-10-30] MEDS: LACTULOSE SYRUP 20 GM/30 ML UDC PO SCH (09:09)
[2022-10-30] MEDS: UMECLIDINIUM/VILANTEROL 62.5/25MCG 7 PUFFS/INHALER INH SCH (09:10)
[2022-10-30] MEDS: MELATONIN 3 MG TAB PO SCH (19:34)
--- NOTE | 2022-10-31 06:52 | Hospitalist Progress Note ---
Date of Service October 31, 2022 Assessment & Plan (1) Acute alteration in mental status: (2) Alcoholic cirrhosis of liver: (3) GERD (gastroesophageal reflux disease): (4) Hypertension: (5) COPD (chronic obstructive pulmonary disease): (6) History of intracranial hemorrhage: (7) Dementia associated with alcoholism: Plan Nicolás is a 71 y/o male with PMH of intracranial hemorrhage, alcohol induced cirrhosis, atrial fibrillation, insomnia, gout, carotid artery stenosis, COPD, who was admitted to the hospital for altered mental status in the setting of hepatic encephalitis, prior intracranial bleeding, and dementia who continues to await placement. Dementia w/ known hx of Hepatic Encephalopathy - Know hx of alcoholic cirrhosis with previous HE - Admitted 07/22/2022 d/t hyperammonemia of 156. - CT Head (08/12) and CXR (07/22) w/o acute change - Blood cx 08/12 neg. UA negative. - Baseline mentation: struggles with word finding but is able to communicate and perform some of his daily activities of living independently. - Continue delirium precautions, Melatonin, Seroquel - 25QAM & 50QHS, and 1:1 per nursing discretion - Continue Lactulose 30 mg QID, Lactulose enema PRN, Rifaximin 550 mg BID - goal 3-4 soft, formed BM daily - CM working on placement; [facility] pending, on 10/28/2022 case management talked to [facility] and patient will be accepted there once family returns financial packet to them. Case management called [facility] and they still have not received any paperwork from the family at this time. Alcoholic Liver Cirrhosis w/ hyperbilirubinemia - Pt with elevated bilirubin at 4.8 secondary to chronic liver disease, stable - MELD 18 upon admission - Lipase and LFT's are within baseline. - US liver showed nonvisualization of the gallbladder and common bile duct as well as cirrhosis w/o hepatic mass - Continue Lasix 40 mg daily Atrial Fibrillation - Not on anticoagulation due to recent intracranial hemorrhage - Episodes of irregular rhythm Hypertension - Continue home lisinopril 5 mg Hx of Intracranial Hemorrhage - Continue levetiracetam Deconditioning - PT recommends 24/7 care either at SNF or at home with home health depending on family choice - Still pending placement/paperwork from familly: per CM, insurance denied SNF GERD - Continue Protonix COPD - Continue home inhaler Electrolyte imbalances - Electrolytes were monitored and repleted as necessary during admission. Diet:Fully alert -minced and moist; less alert - pureed DVT ppx:SCDs Dispo:CM to f/u with Family and [facility] this week Code Status:DNR/DNI Thank you for allowing me to participate in the care of your patient. -Dr. Anuj Paredes PGY1 Admission and Anticipated Discharge Date Admission Date: July 23, 2022 Supervising Physician Co-Signing Physician Notes Resident Physician Supervision Note: I independently interviewed and examined the patient and verified the lebron history and physical, reviewed labs and image studies and agree with resident findings and care plan. Subjective Patient was seen beside this AM. No changes to his mental status. He is still asking when he will be going home. Review of Systems Review of Systems: Unobtainable due to cognitive status Physical Exam Constitutional: WD/WN, vitals as above + altered mental status, cooperative and comfortable Eyes: PERRL, conjunctivae normal, anicteric sclerae Respiratory: normal respiratory effort, lungs clear to auscultation Cardiovascular: RRR, no murmur, no edema Heart Sounds: normal S1 and normal S2 Gastrointestinal (Abdomen): normal bowel sounds, soft, nontender, no hepatosplenomegaly Percussion/Palpation: abdomen soft; abdomen nontender Musculoskeletal: no cyanosis or clubbing, extremities motor strength 5/5 Skin: no rashes, warm and dry Psychiatric: Orientation: alert and oriented to person; + not oriented to place and + not oriented to time Lymphatic: no cervical or axillary lymphadenopathy
[2022-10-31] MEDS: UMECLIDINIUM/VILANTEROL 62.5/25MCG 7 PUFFS/INHALER INH SCH (08:10)
[2022-10-31] MEDS: CHOLECALCIFEROL 1,000 UNITS 25 MCG TAB PO SCH (08:11)
[2022-10-31] MEDS: THIAMINE HCL 100 MG TAB PO SCH (08:11)
[2022-10-31] MEDS: QUEtiapine FUMARATE 25 MG TABLET PO SCH ×2 (08:11→20:09)
[2022-10-31] MEDS: rifAXIMin 550 MG TABLET PO SCH ×2 (08:11→20:09)
[2022-10-31] MEDS: FOLIC ACID 1 MG TAB PO SCH (08:11)
[2022-10-31] MEDS: PANTOprazole 40 MG TAB PO SCH (08:11)
[2022-10-31] MEDS: FERROUS SULFATE 325 MG TAB PO SCH ×2 (08:11→17:04)
[2022-10-31] MEDS: MULTIVITAMIN TAB PO SCH (08:12)
[2022-10-31] MEDS: lisinopril 5 MG TAB PO SCH (08:12)
[2022-10-31] MEDS: LACTULOSE SYRUP 20 GM/30 ML UDC PO SCH (08:12)
[2022-10-31] MEDS: MELATONIN 3 MG TAB PO SCH (20:09)
--- NOTE | 2022-11-01 06:59 | Hospitalist Progress Note ---
Date of Service November 01, 2022 Assessment & Plan (1) Acute alteration in mental status: (2) Alcoholic cirrhosis of liver: (3) GERD (gastroesophageal reflux disease): (4) Hypertension: (5) COPD (chronic obstructive pulmonary disease): (6) History of intracranial hemorrhage: (7) Dementia associated with alcoholism: Plan iNcolás is a 71 y/o male with PMH of intracranial hemorrhage, alcohol induced cirrhosis, atrial fibrillation, insomnia, gout, carotid artery stenosis, COPD, who was admitted to the hospital for altered mental status in the setting of hepatic encephalitis, prior intracranial bleeding, and dementia who continues to await placement. Dementia w/ known hx of Hepatic Encephalopathy - Know hx of alcoholic cirrhosis with previous HE - Admitted 07/22/2022 d/t hyperammonemia of 156. - CT Head (08/12) and CXR (07/22) w/o acute change - Blood cx 08/12 neg. UA negative. - Baseline mentation: struggles with word finding but is able to communicate and perform some of his daily activities of living independently. - Continue delirium precautions, Melatonin, Seroquel - 25QAM & 50QHS, and 1:1 per nursing discretion - Continue Lactulose 30 mg QID, Lactulose enema PRN, Rifaximin 550 mg BID - goal 3-4 soft, formed BM daily - CM working on placement; [facility] pending, on 10/28/2022 case management talked to [facility] and patient will be accepted there once family returns financial packet to them. Case management called [facility] and they still have not received any paperwork from the family at this time. - Nursing reports that patient is acting more impulsive and is unsteady on his feet on 11/01. Will order morning CBC, CMP, and ammonia levels. PT has been done on this admission but consider it if patient remains unsteady on his feet. Alcoholic Liver Cirrhosis w/ hyperbilirubinemia - Pt with elevated bilirubin at 4.8 secondary to chronic liver disease, stable - MELD 18 upon admission - Lipase and LFT's are within baseline. - US liver showed nonvisualization of the gallbladder and common bile duct as well as cirrhosis w/o hepatic mass - Continue Lasix 40 mg daily Atrial Fibrillation - Not on anticoagulation due to recent intracranial hemorrhage - Episodes of irregular rhythm Hypertension - Continue home lisinopril 5 mg Hx of Intracranial Hemorrhage - Continue levetiracetam Deconditioning - PT recommends 24/7 care either at SNF or at home with home health depending on family choice - Still pending placement/paperwork from familly: per CM, insurance denied SNF GERD - Continue Protonix COPD - Continue home inhaler Electrolyte imbalances - Electrolytes were monitored and repleted as necessary during admission. - Will get updated labs on 11/02. Diet:Fully alert -minced and moist; less alert - pureed DVT ppx:SCDs Dispo:CM to f/u with Family and [facility] Code Status:DNR/DNI Thank you for allowing me to participate in the care of your patient. -Dr. Anuj Paredes PGY1 Admission and Anticipated Discharge Date Admission Date: July 23, 2022 Supervising Physician Co-Signing Physician Notes Resident Physician Supervision Note: I independently interviewed and examined the patient and verified the lebron history and physical, reviewed labs and image studies and agree with resident findings and care plan. Subjective Patient seen bedside this AM. He has no issues or concerns. His mental status remains unchanged. A&Ox1 (self only). Nursing notes that patient has been acting more impulsive today and has been unsteady on his feet while walking around his room. Review of Systems Review of Systems: Unobtainable due to cognitive status Physical Exam Constitutional: WD/WN, vitals as above + altered mental status, cooperative and comfortable Respiratory: normal respiratory effort, lungs clear to auscultation Cardiovascular: RRR, no murmur, no edema Heart Sounds: normal S1 and normal S2 Gastrointestinal (Abdomen): normal bowel sounds, soft, nontender, no hepatosplenomegaly Percussion/Palpation: abdomen soft; abdomen nontender Musculoskeletal: no cyanosis or clubbing, extremities motor strength 5/5 Skin: no rashes, warm and dry Psychiatric: Orientation: alert and oriented to person; + not oriented to place and + not oriented to time Results & Data Results & Data ([facility]) Vital Signs (Past 12 Hours) Vital Signs Temp Pulse Resp BP Pulse Ox O2 Del Method 10/31/22 22:18 36.6 C 72 20 150/79 H 95 Room Air Resident Activity Tracking Resident Involvement: Resident Care Provided Care Provided: Adult Hospital Medicine
[2022-11-01] MEDS: PANTOprazole 40 MG TAB PO SCH (07:29)
[2022-11-01] MEDS: lisinopril 5 MG TAB PO SCH (07:29)
[2022-11-01] MEDS: FOLIC ACID 1 MG TAB PO SCH (07:29)
[2022-11-01] MEDS: MULTIVITAMIN TAB PO SCH (07:29)
[2022-11-01] MEDS: CHOLECALCIFEROL 1,000 UNITS 25 MCG TAB PO SCH (07:30)
[2022-11-01] MEDS: FERROUS SULFATE 325 MG TAB PO SCH ×2 (07:30→16:33)
[2022-11-01] MEDS: THIAMINE HCL 100 MG TAB PO SCH (07:30)
[2022-11-01] MEDS: QUEtiapine FUMARATE 25 MG TABLET PO SCH ×2 (07:30→19:59)
[2022-11-01] MEDS: rifAXIMin 550 MG TABLET PO SCH ×2 (07:30→20:00)
[2022-11-01] MEDS: LACTULOSE SYRUP 20 GM/30 ML UDC PO SCH (07:31)
[2022-11-01] MEDS: UMECLIDINIUM/VILANTEROL 62.5/25MCG 7 PUFFS/INHALER INH SCH (07:31)
[2022-11-01] MEDS ORDERED: LACTULOSE SYRUP 20 GM/30 ML UDC PO ONE (13:30)
[2022-11-01] MEDS: MELATONIN 3 MG TAB PO SCH (19:59)
[2022-11-02 06:41] LABS: Hematocrit (blood only) 36.4 % (40.1-51.0); Mean Corpuscular Hgb Conc 35.7 g/dL (32.0-36.0); Mean Corpuscular Volume 98.1 fL (80.0-100.0); Mean Platelet Volume 10.2 fL (9.4-12.4); Platelet Count 110 K/uL (130-400); RDW Coefficient of Variation 13.1 % (11.5-14.5); RDW Standard Deviation 47.3 fL (36.4-46.3); Red Blood Count 3.71 M/uL (4.63-6.08); White Blood Count 4.42 K/ul (4.8-10.8)
[2022-11-02 07:15] LABS: Albumin Globulin Ratio 0.9 (0.9-2); Albumin Level 2.7 gm/dl (3.4-5.0); Bilirubin,Total 2.5 mg/dl (0.2-1.0); Calcium 8.5 mg/dl (8.5-10.1); Creatinine Clr Calc Pharmacy 80.4 ml/min; Est GFR (African American) 104.7 ml/min; Est GFR (Non-African American) 90.3 ml/min; Potassium 4.1 mmol/L (3.5-5.1); Total Protein 5.7 gm/dl (6.0-8.3)
--- NOTE | 2022-11-02 07:24 | Hospitalist Progress Note ---
Date of Service November 02, 2022 Assessment & Plan (1) Acute alteration in mental status: (2) Alcoholic cirrhosis of liver: (3) GERD (gastroesophageal reflux disease): (4) Hypertension: (5) COPD (chronic obstructive pulmonary disease): (6) History of intracranial hemorrhage: (7) Dementia associated with alcoholism: Plan Nicolás is a 71 y/o male with PMH of intracranial hemorrhage, alcohol induced cirrhosis, atrial fibrillation, insomnia, gout, carotid artery stenosis, COPD, who was admitted to the hospital for altered mental status in the setting of hepatic encephalitis, prior intracranial bleeding, and dementia who continues to await placement. Dementia w/ known hx of Hepatic Encephalopathy - Know hx of alcoholic cirrhosis with previous HE - Admitted 07/22/2022 d/t hyperammonemia of 156. - CT Head (08/12) and CXR (07/22) w/o acute change - Blood cx 08/12 neg. UA negative. - Baseline mentation: struggles with word finding but is able to communicate and perform some of his daily activities of living independently. - Continue delirium precautions, Melatonin, Seroquel - 25QAM & 50QHS, and 1:1 per nursing discretion - Continue Lactulose 20 mg QD, Lactulose 20mg PRN for constipation, Rifaximin 550 mg BID - goal 3-4 soft, formed BM daily - CM working on placement; [facility] pending, on 10/28/2022 case management talked to [facility] and patient will be accepted there once family returns financial packet to them. Case management called [facility] and they still have not received any paperwork from the family at this time. - Updated CBC, CMP, and ammonia on 11/02 showed no changes from previous lab work on 10/24. No changes needed at this time. - Will reach out to PT to help patient with movement on Friday. - Continues to be pending placement at this time. Alcoholic Liver Cirrhosis w/ hyperbilirubinemia - Pt with elevated bilirubin at 4.8 secondary to chronic liver disease, stable - MELD 18 upon admission - Lipase and LFT's are within baseline. - US liver showed nonvisualization of the gallbladder and common bile duct as well as cirrhosis w/o hepatic mass - Continue Lasix 40 mg daily Atrial Fibrillation - Not on anticoagulation due to recent intracranial hemorrhage - Episodes of irregular rhythm Hypertension - Continue home lisinopril 5 mg Hx of Intracranial Hemorrhage - Continue levetiracetam Deconditioning - PT recommends 24/7 care either at SNF or at home with home health depending on family choice - Still pending placement/paperwork from family: per CM, insurance denied SNF GERD - Continue Protonix COPD - Continue home inhaler Electrolyte imbalances - Electrolytes were monitored and repleted as necessary during admission. - Will get updated labs on 11/02. Diet:Fully alert -minced and moist; less alert - pureed DVT ppx:SCDs Dispo:CM to f/u with Family and [facility] Code Status:DNR/DNI Thank you for allowing me to participate in the care of your patient. -Dr. Anuj Paredes PGY1 Admission and Anticipated Discharge Date Admission Date: July 23, 2022 Supervising Physician Co-Signing Physician Notes Resident Physician Supervision Note: I independently interviewed and examined the patient and verified the lebron history and physical, reviewed labs and image studies and agree with resident findings and care plan. Subjective Patient was seen beside this AM. He has no issues or concerns. A&Ox1 (self only). He does not report an pain. Review of Systems Review of Systems: Unobtainable due to cognitive status Physical Exam Constitutional: WD/WN, vitals as above + altered mental status, cooperative and comfortable Respiratory: normal respiratory effort, lungs clear to auscultation Cardiovascular: RRR, no murmur, no edema Heart Sounds: normal S1 and normal S2 Gastrointestinal (Abdomen): normal bowel sounds, soft, nontender, no hepatosplenomegaly Percussion/Palpation: abdomen soft; abdomen nontender Musculoskeletal: no cyanosis or clubbing, extremities motor strength 5/5 Skin: no rashes, warm and dry Psychiatric: Orientation: alert and oriented to person; + not oriented to place and + not oriented to time Results & Data Results & Data ([facility]) Vital Signs (Past 12 Hours) Vital Signs Temp Pulse Resp BP Pulse Ox O2 Del Method 11/01/22 21:33 36.4 C L 68 18 129/66 94 Room Air Resident Activity Tracking Resident Involvement: Resident Care Provided Care Provided: Adult Hospital Medicine
[2022-11-02] MEDS ORDERED: LACTULOSE SYRUP 10 GM/15 ML BTL 960 ML PO PRN ×2 (09:41→16:30)
[2022-11-02] MEDS: lisinopril 5 MG TAB PO SCH (10:39)
[2022-11-02] MEDS: LACTULOSE SYRUP 20 GM/30 ML UDC PO SCH (10:39)
[2022-11-02] MEDS: QUEtiapine FUMARATE 25 MG TABLET PO SCH ×2 (10:40→20:15)
[2022-11-02] MEDS: FOLIC ACID 1 MG TAB PO SCH (10:41)
[2022-11-02] MEDS: PANTOprazole 40 MG TAB PO SCH (10:41)
[2022-11-02] MEDS: MULTIVITAMIN TAB PO SCH (10:41)
[2022-11-02] MEDS: THIAMINE HCL 100 MG TAB PO SCH (10:41)
[2022-11-02] MEDS: FERROUS SULFATE 325 MG TAB PO SCH ×2 (10:41→16:03)
[2022-11-02] MEDS: rifAXIMin 550 MG TABLET PO SCH ×2 (10:42→20:14)
[2022-11-02] MEDS: UMECLIDINIUM/VILANTEROL 62.5/25MCG 7 PUFFS/INHALER INH SCH (10:42)
[2022-11-02] MEDS: CHOLECALCIFEROL 1,000 UNITS 25 MCG TAB PO SCH (10:42)
[2022-11-02] MEDS: MELATONIN 3 MG TAB PO SCH (20:14)
--- NOTE | 2022-11-03 06:56 | Hospitalist Progress Note ---
Date of Service November 03, 2022 Assessment & Plan (1) Acute alteration in mental status: (2) Alcoholic cirrhosis of liver: (3) GERD (gastroesophageal reflux disease): (4) Hypertension: (5) COPD (chronic obstructive pulmonary disease): (6) History of intracranial hemorrhage: (7) Dementia associated with alcoholism: Plan 11/03: No changes to plan below. pending placement. Will reach out to PT tomorrow to see if they can do some type of outpatient PT regiment for the patient. Nicolás is a 71 y/o male with PMH of intracranial hemorrhage, alcohol induced cirrhosis, atrial fibrillation, insomnia, gout, carotid artery stenosis, COPD, who was admitted to the hospital for altered mental status in the setting of hepatic encephalitis, prior intracranial bleeding, and dementia who continues to await placement. Dementia w/ known hx of Hepatic Encephalopathy - Know hx of alcoholic cirrhosis with previous HE - Admitted 07/22/2022 d/t hyperammonemia of 156. - CT Head (08/12) and CXR (07/22) w/o acute change - Blood cx 08/12 neg. UA negative. - Baseline mentation: struggles with word finding but is able to communicate and perform some of his daily activities of living independently. - Continue delirium precautions, Melatonin, Seroquel - 25QAM & 50QHS, and 1:1 per nursing discretion - Continue Lactulose 20 mg QD, Lactulose 20mg PRN for constipation, Rifaximin 550 mg BID - goal 3-4 soft, formed BM daily - CM working on placement; [facility] pending, on 10/28/2022 case management talked to [facility] and patient will be accepted there once family returns financial packet to them. Case management called [facility] and they still have not received any paperwork from the family at this time. - Updated CBC, CMP, and ammonia on 11/02 showed no changes from previous lab work on 10/24. No changes needed at this time. - Will reach out to PT to help patient with movement on Friday. - Continues to be pending placement at this time. Alcoholic Liver Cirrhosis w/ hyperbilirubinemia - Pt with elevated bilirubin at 4.8 secondary to chronic liver disease, stable - MELD 18 upon admission - Lipase and LFT's are within baseline. - US liver showed nonvisualization of the gallbladder and common bile duct as well as cirrhosis w/o hepatic mass - Continue Lasix 40 mg daily Atrial Fibrillation - Not on anticoagulation due to recent intracranial hemorrhage - Episodes of irregular rhythm Hypertension - Continue home lisinopril 5 mg Hx of Intracranial Hemorrhage - Continue levetiracetam Deconditioning - PT recommends 24/7 care either at SNF or at home with home health depending on family choice - Still pending placement/paperwork from family: per CM, insurance denied SNF GERD - Continue Protonix COPD - Continue home inhaler Electrolyte imbalances - Electrolytes were monitored and repleted as necessary during admission. - Will get updated labs on 11/02. Diet:Fully alert -minced and moist; less alert - pureed DVT ppx:SCDs Dispo:CM to f/u with Family and [facility] Code Status:DNR/DNI Thank you for allowing me to participate in the care of your patient. -Dr. Anuj Paredes PGY1 Admission and Anticipated Discharge Date Admission Date: July 23, 2022 Supervising Physician Co-Signing Physician Notes Resident Physician Supervision Note: I independently interviewed and examined the patient and verified the lebron history and physical, reviewed labs and image studies and agree with resident findings and care plan. Subjective Patient has no issues or concerns at this time. He remains A&Ox1 (self). He states that he is "waiting for " to come get him and that he is "ready to play". Review of Systems Review of Systems: Unobtainable due to cognitive status Physical Exam Constitutional: WD/WN, vitals as above + altered mental status, cooperative and comfortable Respiratory: normal respiratory effort, lungs clear to auscultation Cardiovascular: RRR, no murmur, no edema Heart Sounds: normal S1 and normal S2 Gastrointestinal (Abdomen): normal bowel sounds, soft, nontender, no hepatosplenomegaly Percussion/Palpation: abdomen soft; abdomen nontender Musculoskeletal: no cyanosis or clubbing, extremities motor strength 5/5 Skin: no rashes, warm and dry Psychiatric: Orientation: alert and oriented to person; + not oriented to place and + not oriented to time Results & Data Results & [facility] ([facility]) Vital Signs (Past 12 Hours) Vital Signs Temp Pulse Resp BP Pulse Ox O2 Del Method 11/02/22 20:53 36.5 C 64 18 106/61 94 Room Air Resident Activity Tracking Resident Involvement: Resident Care Provided Care Provided: Adult Hospital Medicine
[2022-11-03] MEDS: LACTULOSE SYRUP 20 GM/30 ML UDC PO SCH (07:33)
[2022-11-03] MEDS: QUEtiapine FUMARATE 25 MG TABLET PO SCH ×2 (07:34→21:07)
[2022-11-03] MEDS: THIAMINE HCL 100 MG TAB PO SCH (07:34)
[2022-11-03] MEDS: lisinopril 5 MG TAB PO SCH (07:34)
[2022-11-03] MEDS: rifAXIMin 550 MG TABLET PO SCH ×2 (07:34→21:07)
[2022-11-03] MEDS: CHOLECALCIFEROL 1,000 UNITS 25 MCG TAB PO SCH (07:34)
[2022-11-03] MEDS: MULTIVITAMIN TAB PO SCH (07:34)
[2022-11-03] MEDS: FOLIC ACID 1 MG TAB PO SCH (07:34)
[2022-11-03] MEDS: FERROUS SULFATE 325 MG TAB PO SCH ×2 (07:35→18:10)
[2022-11-03] MEDS: PANTOprazole 40 MG TAB PO SCH (07:39)
[2022-11-03] MEDS: UMECLIDINIUM/VILANTEROL 62.5/25MCG 7 PUFFS/INHALER INH SCH (09:37)
[2022-11-03] MEDS ORDERED: HALOPERIDOL LACTATE 5 MG/ML 1 ML VIAL IM PRN (13:27)
[2022-11-03] MEDS: MELATONIN 3 MG TAB PO SCH (21:06)
--- NOTE | 2022-11-04 07:04 | Hospitalist Progress Note ---
Date of Service November 04, 2022 Assessment & Plan (1) Acute alteration in mental status: (2) Alcoholic cirrhosis of liver: (3) GERD (gastroesophageal reflux disease): (4) Hypertension: (5) COPD (chronic obstructive pulmonary disease): (6) History of intracranial hemorrhage: (7) Dementia associated with alcoholism: Plan 11/04: No changes to plan below. pending placement. Nicolás is a 71 y/o male with PMH of intracranial hemorrhage, alcohol induced cirrhosis, atrial fibrillation, insomnia, gout, carotid artery stenosis, COPD, who was admitted to the hospital for altered mental status in the setting of hepatic encephalitis, prior intracranial bleeding, and dementia who continues to await placement. Dementia w/ known hx of Hepatic Encephalopathy - Know hx of alcoholic cirrhosis with previous HE - Admitted 07/22/2022 d/t hyperammonemia of 156. - CT Head (08/12) and CXR (07/22) w/o acute change - Blood cx 08/12 neg. UA negative. - Baseline mentation: struggles with word finding but is able to communicate and perform some of his daily activities of living independently. - Continue delirium precautions, Melatonin, Seroquel - 25QAM & 50QHS, and 1:1 per nursing discretion - Continue Lactulose 20 mg QD, Lactulose 20mg PRN for constipation, Rifaximin 550 mg BID - goal 3-4 soft, formed BM daily - CM working on placement; [facility] pending, on 10/28/2022 case management talked to [facility] and patient will be accepted there once family returns financial packet to them. Case management called [facility] and they still have not received any paperwork from the family at this time. - Updated CBC, CMP, and ammonia on 11/02 showed no changes from previous lab work on 10/24. No changes needed at this time. - Continues to be pending placement at this time. Alcoholic Liver Cirrhosis w/ hyperbilirubinemia - Pt with elevated bilirubin at 4.8 secondary to chronic liver disease, stable - MELD 18 upon admission - Lipase and LFT's are within baseline. - US liver showed nonvisualization of the gallbladder and common bile duct as well as cirrhosis w/o hepatic mass - Continue Lasix 40 mg daily Atrial Fibrillation - Not on anticoagulation due to recent intracranial hemorrhage - Episodes of irregular rhythm Hypertension - Continue home lisinopril 5 mg Hx of Intracranial Hemorrhage - Continue levetiracetam Deconditioning - PT recommends 24/7 care either at SNF or at home with home health depending on family choice - Still pending placement/paperwork from family: per CM, insurance denied SNF GERD - Continue Protonix COPD - Continue home inhaler Electrolyte imbalances - Electrolytes were monitored and repleted as necessary during admission. - Will get updated labs on 11/02. Diet:Fully alert -minced and moist; less alert - pureed DVT ppx:SCDs Dispo:CM to f/u with Family and [facility] Code Status:DNR/DNI Thank you for allowing me to participate in the care of your patient. -Dr. Anuj Paredes PGY1 Admission and Anticipated Discharge Date Admission Date: July 23, 2022 Supervising Physician Co-Signing Physician Notes I personally examined the patient and verified all lebron points of history and exam, discussed case, and agree with decision making with Dr Paredes sitting, looking outside. Vitals noted, in general appears to be in no distress. Breathing unlabored. skin without pallor. Dementia w/ h/o intracranial bleed, hepatic encephalopathy - continue lactulose, rifaximin. Continue Seroquel at 50mg qHS and 25mg daily and monitor. hospital day #104, waiting on placement otherwise as above Subjective Patient is doing well today. No complaints or conerns at this time. Review of Systems Review of Systems: Unobtainable due to cognitive status Physical Exam Constitutional: WD/WN, vitals as above + altered mental status, cooperative and comfortable Respiratory: normal respiratory effort, lungs clear to auscultation Cardiovascular: RRR, no murmur, no edema Heart Sounds: normal S1 and normal S2 Gastrointestinal (Abdomen): normal bowel sounds, soft, nontender, no hepatosp lenomegaly Percussion/Palpation: abdomen soft; abdomen nontender Musculoskeletal: no cyanosis or clubbing, extremities motor strength 5/5 Skin: no rashes, warm and dry Psychiatric: Orientation: alert and oriented to person; + not oriented to place and + not oriented to time Results & Data Results & Data ([facility]) Vital Signs (Past 12 Hours) Vital Signs Temp Pulse Resp BP Pulse Ox O2 Del Method 11/03/22 20:31 36.6 C 63 20 121/64 94 Room Air Resident Activity Tracking Resident Involvement: Resident Care Provided Care Provided: Adult Hospital Medicine
[2022-11-04] MEDS: PANTOprazole 40 MG TAB PO SCH (08:30)
[2022-11-04] MEDS: FOLIC ACID 1 MG TAB PO SCH (08:30)
[2022-11-04] MEDS: CHOLECALCIFEROL 1,000 UNITS 25 MCG TAB PO SCH (08:30)
[2022-11-04] MEDS: QUEtiapine FUMARATE 25 MG TABLET PO SCH ×2 (08:30→20:18)
[2022-11-04] MEDS: MULTIVITAMIN TAB PO SCH (08:30)
[2022-11-04] MEDS: FERROUS SULFATE 325 MG TAB PO SCH ×2 (08:31→16:52)
[2022-11-04] MEDS: THIAMINE HCL 100 MG TAB PO SCH (08:31)
[2022-11-04] MEDS: lisinopril 5 MG TAB PO SCH (08:31)
[2022-11-04] MEDS: rifAXIMin 550 MG TABLET PO SCH ×2 (08:31→20:18)
[2022-11-04] MEDS: UMECLIDINIUM/VILANTEROL 62.5/25MCG 7 PUFFS/INHALER INH SCH (08:31)
[2022-11-04] MEDS: LACTULOSE SYRUP 20 GM/30 ML UDC PO SCH (09:28)
--- NOTE | 2022-11-04 19:36 | Billing Data ---
Date of Service November 04, 2022 Coding Level of Care Code 39619 SUB INP/OBS CARE
[2022-11-04] MEDS: MELATONIN 3 MG TAB PO SCH (20:18)
--- NOTE | 2022-11-05 07:34 | Hospitalist Progress Note ---
Date of Service November 05, 2022 Assessment & Plan (1) Acute alteration in mental status: (2) Alcoholic cirrhosis of liver: (3) GERD (gastroesophageal reflux disease): (4) Hypertension: (5) COPD (chronic obstructive pulmonary disease): (6) History of intracranial hemorrhage: (7) Dementia associated with alcoholism: Plan 11/05: No changes to plan below. pending family completeing paperwork. Accepted to [facility] though waiting for family to fill out application. Application was received on 10/24/2022 by the family. Nicolás is a 71 y/o male with PMH of intracranial hemorrhage, alcohol induced cirrhosis, atrial fibrillation, insomnia, gout, carotid artery stenosis, COPD, who was admitted to the hospital for altered mental status in the setting of hepatic encephalitis, prior intracranial bleeding, and dementia who continues to await placement. Dementia w/ known hx of Hepatic Encephalopathy - Know hx of alcoholic cirrhosis with previous HE - Admitted 07/22/2022 d/t hyperammonemia of 156. - CT Head (08/12) and CXR (07/22) w/o acute change - Blood cx 08/12 neg. UA negative. - Baseline mentation: struggles with word finding but is able to communicate and perform some of his daily activities of living independently. - Continue delirium precautions, Melatonin, Seroquel - 25QAM & 50QHS, and 1:1 per nursing discretion - Continue Lactulose 20 mg QD, Lactulose 20mg PRN for constipation, Rifaximin 550 mg BID - goal 3-4 soft, formed BM daily - CM working on placement; [facility] pending, on 10/28/2022 case management talked to [facility] and patient will be accepted there once family returns financial packet to them. Case management called [facility] and they still have not received any paperwork from the family at this time. - Updated CBC, CMP, and ammonia on 11/02 showed no changes from previous lab work on 10/24. No changes needed at this time. - Continues to be pending placement at this time. Alcoholic Liver Cirrhosis w/ hyperbilirubinemia - Pt with elevated bilirubin at 4.8 secondary to chronic liver disease, stable - MELD 18 upon admission - Lipase and LFT's are within baseline. - US liver showed nonvisualization of the gallbladder and common bile duct as well as cirrhosis w/o hepatic mass - Continue Lasix 40 mg daily Atrial Fibrillation - Not on anticoagulation due to recent intracranial hemorrhage - Episodes of irregular rhythm Hypertension - Continue home lisinopril 5 mg Hx of Intracranial Hemorrhage - Continue levetiracetam Deconditioning - PT recommends 24/7 care either at SNF or at home with home health depending on family choice - Still pending placement/paperwork from family: per CM, insurance denied SNF GERD - Continue Protonix COPD - Continue home inhaler Electrolyte imbalances - Electrolytes were monitored and repleted as necessary during admission. - Will get updated labs on 11/02. Diet:Fully alert -minced and moist; less alert - pureed DVT ppx:SCDs Dispo:CM to f/u with Family and [facility] Code Status:DNR/DNI Thank you for allowing me to participate in the care of your patient. -Dr. Anuj Paredes PGY1 Admission and Anticipated Discharge Date Admission Date: July 23, 2022 Supervising Physician Co-Signing Physician Notes I personally examined the patient and verified all lebron points of history and exam, discussed case, and agree with decision making with Dr Paredes sitting, once again looking outside. Vitals noted, in general appears to be in no distress. Breathing unlabored. skin without pallor. Dementia w/ h/o intracranial bleed, hepatic encephalopathy - continue lactulose, rifaximin. Continue Seroquel at 50mg qHS and 25mg daily and monitor. hospital day #105, waiting on placement otherwise as above Subjective Patient seen beside this AM. No issues or changes at this time. A&Ox1 (self) Review of Systems Review of Systems: All systems reviewed & are unremarkable except as noted in HPI & below Physical Exam Constitutional: WD/WN, vitals as above + altered mental status, cooperative and comfortable Respiratory: normal respiratory effort, lungs clear to auscultation Cardiovascular: RRR, no murmur, no edema Heart Sounds: normal S1 and normal S2 Gastrointestinal (Abdomen): normal bowel sounds, soft, nontender, no hepato splenomegaly Percussion/Palpation: abdomen soft; abdomen nontender Musculoskeletal: no cyanosis or clubbing, extremities motor strength 5/5 Skin: no rashes, warm and dry Psychiatric: Orientation: alert and oriented to person; + not oriented to place and + not oriented to time Results & Data Results & Data ([facility]) Vital Signs (Past 12 Hours) Vital Signs Temp Pulse Resp BP BP Pulse Ox O2 Del Method 11/05/22 07:18 36.7 C 65 18 160/82 H 94 Room Air 11/04/22 21:37 36.3 C L 69 18 107/55 L 93 Room Air Resident Activity Tracking Resident Involvement: Resident Care Provided Care Provided: Adult Hospital Medicine
[2022-11-05] MEDS: THIAMINE HCL 100 MG TAB PO SCH (08:16)
[2022-11-05] MEDS: QUEtiapine FUMARATE 25 MG TABLET PO SCH ×2 (08:16→20:35)
[2022-11-05] MEDS: CHOLECALCIFEROL 1,000 UNITS 25 MCG TAB PO SCH (08:16)
[2022-11-05] MEDS: lisinopril 5 MG TAB PO SCH (08:16)
[2022-11-05] MEDS: FERROUS SULFATE 325 MG TAB PO SCH ×2 (08:16→17:48)
[2022-11-05] MEDS: PANTOprazole 40 MG TAB PO SCH (08:16)
[2022-11-05] MEDS: FOLIC ACID 1 MG TAB PO SCH (08:16)
[2022-11-05] MEDS: MULTIVITAMIN TAB PO SCH (08:16)
[2022-11-05] MEDS: rifAXIMin 550 MG TABLET PO SCH ×2 (08:16→20:35)
[2022-11-05] MEDS: LACTULOSE SYRUP 20 GM/30 ML UDC PO SCH (08:16)
[2022-11-05] MEDS: UMECLIDINIUM/VILANTEROL 62.5/25MCG 7 PUFFS/INHALER INH SCH (08:18)
--- NOTE | 2022-11-05 19:24 | Billing Data ---
Date of Service November 05, 2022 Coding Level of Care Code 62619 SUB INP/OBS CARE
[2022-11-05] MEDS: MELATONIN 3 MG TAB PO SCH (20:35)
--- NOTE | 2022-11-06 06:48 | Hospitalist Progress Note ---
Date of Service November 06, 2022 Assessment & Plan (1) Acute alteration in mental status: (2) Alcoholic cirrhosis of liver: (3) GERD (gastroesophageal reflux disease): (4) Hypertension: (5) COPD (chronic obstructive pulmonary disease): (6) History of intracranial hemorrhage: (7) Dementia associated with alcoholism: Plan 11/06: Family hoping to have paperwork completed by Friday. 11/05: No changes to plan below. pending family completing paperwork. Accepted to [facility] though waiting for family to fill out application. Application was received on 10/24/2022 by the family. Nicolás is a 71 y/o male with PMH of intracranial hemorrhage, alcohol induced cirrhosis, atrial fibrillation, insomnia, gout, carotid artery stenosis, COPD, who was admitted to the hospital for altered mental status in the setting of hepatic encephalitis, prior intracranial bleeding, and dementia who continues to await placement. Dementia w/ known hx of Hepatic Encephalopathy - Know hx of alcoholic cirrhosis with previous HE - Admitted 07/22/2022 d/t hyperammonemia of 156. - CT Head (08/12) and CXR (07/22) w/o acute change - Blood cx 08/12 neg. UA negative. - Baseline mentation: struggles with word finding but is able to communicate and perform some of his daily activities of living independently. - Continue delirium precautions, Melatonin, Seroquel - 25QAM & 50QHS, and 1:1 per nursing discretion - Continue Lactulose 20 mg QD, Lactulose 20mg PRN for constipation, Rifaximin 550 mg BID - goal 3-4 soft, formed BM daily - CM working on placement; [facility] pending, on 10/28/2022 case management talked to [facility] and patient will be accepted there once family returns financial packet to them. Case management called [facility] and they still have not received any paperwork from the family at this time. - Updated CBC, CMP, and ammonia on 11/02 showed no changes from previous lab work on 10/24. No changes needed at this time. - Continues to be pending placement at this time. Alcoholic Liver Cirrhosis w/ hyperbilirubinemia - Pt with elevated bilirubin at 4.8 secondary to chronic liver disease, stable - MELD 18 upon admission - Lipase and LFT's are within baseline. - US liver showed nonvisualization of the gallbladder and common bile duct as well as cirrhosis w/o hepatic mass - Continue Lasix 40 mg daily Atrial Fibrillation - Not on anticoagulation due to recent intracranial hemorrhage - Episodes of irregular rhythm Hypertension - Continue home lisinopril 5 mg Hx of Intracranial Hemorrhage - Continue levetiracetam Deconditioning - PT recommends 24/7 care either at SNF or at home with home health depending on family choice - Still pending placement/paperwork from family: per CM, insurance denied SNF GERD - Continue Protonix COPD - Continue home inhaler Electrolyte imbalances - Electrolytes were monitored and repleted as necessary during admission. - Will get updated labs on 11/02. Diet:Fully alert -minced and moist; less alert - pureed DVT ppx:SCDs Dispo:CM to f/u with Family and [facility] Code Status:DNR/DNI Thank you for allowing me to participate in the care of your patient. -Dr. Anuj Paredes PGY1 Admission and Anticipated Discharge Date Admission Date: July 23, 2022 Supervising Physician Co-Signing Physician Notes I personally examined the patient and verified all lebron points of history and exa m, discussed case, and agree with decision making with Dr Paredes no complaints other than wanting to go home. Vitals noted, in general appears to be in no distress. Breathing unlabored. skin without pallor. Dementia w/ h/o intracranial bleed, hepatic encephalopathy - continue lactulose, rifaximin. Continue Seroquel at 50mg qHS and 25mg daily and monitor. hospital day #106, waiting on placement otherwise as above Subjective Patient seen beside this AM. No issues or changes at this time. A&Ox1 (self) Review of Systems Review of Systems: All systems reviewed & are unremarkable except as noted in HPI & below Physical Exam Constitutional: WD/WN, vitals as above + altered mental status, cooperative and comfortable Respiratory: normal respiratory effort, lungs clear to auscultation Cardiovascular: RRR, no murmur, no edema Heart Sounds: normal S1 and normal S2 Gastrointestinal (Abdomen): normal bowel sounds, soft, nontender, no hepatosplenomegaly Percussion/Palpation: abdomen soft; abdomen nontender Musculoskeletal: no cyanosis or clubbing, extremities motor strength 5/5 Skin: no rashes, warm and dry Psychiatric: Orientation: alert and oriented to person; + not oriented to place and + not oriented to time Results & Data Results & Data ([facility]) Vital Signs (Past 12 Hours) Vital Signs Temp Pulse Resp BP Pulse Ox O2 Del Method 11/05/22 22:15 36.6 C 67 14 110/64 95 Room Air Resident Activity Tracking Resident Involvement: Resident Care Provided Care Provided: Adult Hospital Medicine
[2022-11-06] MEDS: UMECLIDINIUM/VILANTEROL 62.5/25MCG 7 PUFFS/INHALER INH SCH (08:26)
[2022-11-06] MEDS: CHOLECALCIFEROL 1,000 UNITS 25 MCG TAB PO SCH (08:27)
[2022-11-06] MEDS: FOLIC ACID 1 MG TAB PO SCH (08:27)
[2022-11-06] MEDS: lisinopril 5 MG TAB PO SCH (08:27)
[2022-11-06] MEDS: THIAMINE HCL 100 MG TAB PO SCH (08:27)
[2022-11-06] MEDS: rifAXIMin 550 MG TABLET PO SCH ×2 (08:27→19:20)
[2022-11-06] MEDS: QUEtiapine FUMARATE 25 MG TABLET PO SCH ×2 (08:27→19:21)
[2022-11-06] MEDS: LACTULOSE SYRUP 20 GM/30 ML UDC PO SCH (08:27)
[2022-11-06] MEDS: PANTOprazole 40 MG TAB PO SCH (08:27)
[2022-11-06] MEDS: MULTIVITAMIN TAB PO SCH (08:27)
[2022-11-06] MEDS: FERROUS SULFATE 325 MG TAB PO SCH ×2 (08:28→17:11)
--- NOTE | 2022-11-06 18:47 | Billing Data ---
Date of Service November 06, 2022 Coding Level of Care Code 58368 SUB INP/OBS CARE
[2022-11-06] MEDS: MELATONIN 3 MG TAB PO SCH (19:24)
--- NOTE | 2022-11-07 07:01 | Hospitalist Progress Note ---
Date of Service November 07, 2022 Assessment & Plan (1) Acute alteration in mental status: (2) Alcoholic cirrhosis of liver: (3) GERD (gastroesophageal reflux disease): (4) Hypertension: (5) COPD (chronic obstructive pulmonary disease): (6) History of intracranial hemorrhage: (7) Dementia associated with alcoholism: Plan 11/07: No new significant changes made to the plan. 11/06: Family hoping to have paperwork completed by Friday. 11/05: No changes to plan below. pending family completing paperwork. Accepted to [facility] though waiting for family to fill out application. Application was received on 10/24/2022 by the family. Nicolás is a 71 y/o male with PMH of intracranial hemorrhage, alcohol induced cirrhosis, atrial fibrillation, insomnia, gout, carotid artery stenosis, COPD, who was admitted to the hospital for altered mental status in the setting of hepatic encephalitis, prior intracranial bleeding, and dementia who continues to await placement. Dementia w/ known hx of Hepatic Encephalopathy - Know hx of alcoholic cirrhosis with previous HE - Admitted 07/22/2022 d/t hyperammonemia of 156. - CT Head (08/12) and CXR (07/22) w/o acute change - Blood cx 08/12 neg. UA negative. - Baseline mentation: struggles with word finding but is able to communicate and perform some of his daily activities of living independently. - Continue delirium precautions, Melatonin, Seroquel - 25QAM & 50QHS, and 1:1 per nursing discretion - Continue Lactulose 20 mg QD, Lactulose 20mg PRN for constipation, Rifaximin 550 mg BID - goal 3-4 soft, formed BM daily - CM working on placement; [facility] pending, on 10/28/2022 case management talked to [facility] and patient will be accepted there once family returns financial packet to them. Case management called [facility] and they still have not received any paperwork from the family at this time. - Updated CBC, CMP, and ammonia on 11/02 showed no changes from previous lab work on 10/24. No changes needed at this time. - Continues to be pending placement at this time. Alcoholic Liver Cirrhosis w/ hyperbilirubinemia - Pt with elevated bilirubin at 4.8 secondary to chronic liver disease, stable - MELD 18 upon admission - Lipase and LFT's are within baseline. - US liver showed nonvisualization of the gallbladder and common bile duct as well as cirrhosis w/o hepatic mass - Continue Lasix 40 mg daily Atrial Fibrillation - Not on anticoagulation due to recent intracranial hemorrhage - Episodes of irregular rhythm Hypertension - Continue home lisinopril 5 mg Hx of Intracranial Hemorrhage - Continue levetiracetam Deconditioning - PT recommends 24/7 care either at SNF or at home with home health depending on family choice - Still pending placement/paperwork from family: per CM, insurance denied SNF GERD - Continue Protonix COPD - Continue home inhaler Electrolyte imbalances - Electrolytes were monitored and repleted as necessary during admission. - Will get updated labs on 11/02. Diet:Fully alert -minced and moist; less alert - pureed DVT ppx:SCDs Dispo:CM to f/u with Family and [facility] Code Status:DNR/DNI Thank you for allowing me to participate in the care of your patient. -Dr. Anuj Paredes PGY1 Admission and Anticipated Discharge Date Admission Date: July 23, 2022 Supervising Physician Co-Signing Physician Notes I personally examined the patient and verified all lebron points of history and exam, discussed case, and agree with decision making with Dr Paredes resting comfortably sleeping in bed. Vitals noted, in general appears to be in no distress. Breathing unlabored. skin without pallor. Dementia w/ h/o intracranial bleed, hepatic encephalopathy - continue lactulose, rifaximin. Continue Seroquel at 50mg qHS and 25mg daily and monitor. hospital day #107, still waiting on placement otherwise as above Subjective Patient was seen bedside this morning. He remained stable at this time and no changes overnight. He remains pending placement. Review of Systems Review of Systems: Unobtainable due to cognitive status Physical Exam Constitutional: WD/WN, vitals as above + altered mental status, cooperative and comfortable Respiratory: normal respiratory effort, lungs clear to auscultation Cardiovascular: RRR, no murmur, no edema Heart Sounds: normal S1 and normal S2 Gastrointestinal (Abdomen): normal bowel sounds, soft, nontender, no hepatosplenomegaly Percussion/Palpation: abdomen soft; abdomen nontender Musculoskeletal: no cyanosis or clubbing, extremities motor strength 5/5 Skin: no rashes, warm and dry Psychiatric: Orientation: alert and oriented to person; + not oriented to place and + not oriented to time Results & Data Results & Data ([facility]) Vital Signs (Past 12 Hours) Vital Signs Temp Pulse Resp BP Pulse Ox O2 Del Method 11/06/22 21:21 36.4 C L 76 17 122/63 95 Room Air
[2022-11-07] MEDS: LACTULOSE SYRUP 20 GM/30 ML UDC PO SCH (08:28)
[2022-11-07] MEDS: THIAMINE HCL 100 MG TAB PO SCH (08:28)
[2022-11-07] MEDS: QUEtiapine FUMARATE 25 MG TABLET PO SCH ×2 (08:29→20:10)
[2022-11-07] MEDS: UMECLIDINIUM/VILANTEROL 62.5/25MCG 7 PUFFS/INHALER INH SCH (08:29)
[2022-11-07] MEDS: rifAXIMin 550 MG TABLET PO SCH ×2 (08:29→20:12)
[2022-11-07] MEDS: lisinopril 5 MG TAB PO SCH (08:29)
[2022-11-07] MEDS: MULTIVITAMIN TAB PO SCH (08:29)
[2022-11-07] MEDS: PANTOprazole 40 MG TAB PO SCH (08:29)
[2022-11-07] MEDS: FERROUS SULFATE 325 MG TAB PO SCH ×2 (08:29→15:54)
[2022-11-07] MEDS: CHOLECALCIFEROL 1,000 UNITS 25 MCG TAB PO SCH (08:29)
[2022-11-07] MEDS: FOLIC ACID 1 MG TAB PO SCH (08:29)
--- NOTE | 2022-11-07 18:04 | Billing Data ---
Date of Service November 07, 2022 Coding Level of Care Code 93909 SUB INP/OBS CARE
[2022-11-07] MEDS: MELATONIN 3 MG TAB PO SCH (20:09)
--- NOTE | 2022-11-08 07:25 | Hospitalist Progress Note ---
Date of Service November 08, 2022 Assessment & Plan (1) Acute alteration in mental status: (2) Alcoholic cirrhosis of liver: (3) GERD (gastroesophageal reflux disease): (4) Hypertension: (5) COPD (chronic obstructive pulmonary disease): (6) History of intracranial hemorrhage: (7) Dementia associated with alcoholism: Plan 11/08 update: No significant changes to the plan for the patient. He remains pending placement at [facility]. Family needs to complete paperwork for an to be able to go there. Facility says that they have a bed available for him as soon as the family returns the paperwork. Case management notes there are issues with trying to get financial data that are making it hard for the family to finish the application. Application was received by the family on October 24, 2022. Nicolás is a 71 y/o male with PMH of intracranial hemorrhage, alcohol induced cirrhosis, atrial fibrillation, insomnia, gout, carotid artery stenosis, COPD, who was admitted to the hospital for altered mental status in the setting of hepatic encephalitis, prior intracranial bleeding, and dementia who continues to await placement. Dementia w/ known hx of Hepatic Encephalopathy - Know hx of alcoholic cirrhosis with previous HE - Admitted 07/22/2022 d/t hyperammonemia of 156. - CT Head (08/12) and CXR (07/22) w/o acute change - Blood cx 08/12 neg. UA negative. - Baseline mentation: struggles with word finding but is able to communicate and perform some of his daily activities of living independently. - Continue delirium precautions, Melatonin, Seroquel - 25QAM & 50QHS, and 1:1 per nursing discretion - Continue Lactulose 20 mg QD, Lactulose 20mg PRN for constipation, Rifaximin 550 mg BID - goal 3-4 soft, formed BM daily - CM working on placement; [facility] pending, on 10/28/2022 case management talked to [facility] and patient will be accepted there once family returns financial packet to them. Case management called [facility] and they still have not received any paperwork from the family at this time. - Updated CBC, CMP, and ammonia on 11/02 showed no changes from previous lab work on 10/24. No changes needed at this time. - Continues to be pending placement at this time. Alcoholic Liver Cirrhosis w/ hyperbilirubinemia - Pt with elevated bilirubin at 4.8 secondary to chronic liver disease, stable - MELD 18 upon admission - Lipase and LFT's are within baseline. - US liver showed nonvisualization of the gallbladder and common bile duct as well as cirrhosis w/o hepatic mass - Continue Lasix 40 mg daily Atrial Fibrillation - Not on anticoagulation due to recent intracranial hemorrhage - Episodes of irregular rhythm Hypertension - Continue home lisinopril 5 mg Hx of Intracranial Hemorrhage - Continue levetiracetam Deconditioning - PT recommends 24/7 care either at SNF or at home with home health depending on family choice - Still pending placement/paperwork from family: per CM, insurance denied SNF GERD - Continue Protonix COPD - Continue home inhaler Electrolyte imbalances - Electrolytes were monitored and repleted as necessary during admission. - Will get updated labs on 11/02. Diet:Fully alert -minced and moist; less alert - pureed DVT ppx:SCDs Dispo:CM to f/u with Family and [facility] Code Status:DNR/DNI Thank you for allowing me to participate in the care of your patient. -Dr. Anuj Paredes PGY1 Admission and Anticipated Discharge Date Admission Date: July 23, 2022 Supervising Physician Co-Signing Physician Notes I personally examined the patient and verified all lebron points of history and exam, discussed case, and agree with decision making with Dr Paredes resting comfortably sleeping in bed. Vitals noted, in general appears to be in no distress. Breathing unlabored. skin without pallor. Dementia w/ h/o intracranial bleed, hepatic encephalopathy - continue lactulose, rifaximin. Continue Seroquel at 50mg qHS and 25mg daily and monitor. hospital day #108, still waiting on placement, daughter working on paperwork/financials otherwise as above Subjective Patient was seen bedside this AM. Patient has no issues or complaints today. He remains alert and oriented x1. Review of Systems Review of Systems: Unobtainable due to cognitive status Physical Exam Constitutional: WD/WN, vitals as above + altered mental status, cooperative, comfortable, + in distress and + combative Eyes: PERRL, conjunctivae normal, anicteric sclerae PERRL Respiratory: normal respiratory effort, lungs clear to auscultation Cardiovascular: RRR, no murmur, no edema Rate/Rhythm: + irregularly irregular Heart Sounds: normal S1 and normal S2 Gastrointestinal (Abdomen): normal bowel sounds, soft, nontender, no hepatosplenomegaly Percussion/Palpation: abdomen soft; abdomen nontender Musculoskeletal: no cyanosis or clubbing, extremities motor strength 5/5 Skin: no rashes, warm and dry Psychiatric: Orientation: alert and oriented to person; + not oriented to place and + not oriented to time Lymphatic: no cervical or axillary lymphadenopathy Results & Data Results & Data ([facility]) Vital Signs (Past 12 Hours) Vital Signs Temp Pulse Resp BP Pulse Ox O2 Del Method 11/07/22 22:07 36.3 C L 65 17 117/57 L 94 Room Air Resident Activity Tracking Resident Involvement: Resident Care Provided Care Provided: Adult Hospital Medicine
[2022-11-08] MEDS: rifAXIMin 550 MG TABLET PO SCH ×2 (08:08→20:09)
[2022-11-08] MEDS: CHOLECALCIFEROL 1,000 UNITS 25 MCG TAB PO SCH (08:09)
[2022-11-08] MEDS: lisinopril 5 MG TAB PO SCH (08:09)
[2022-11-08] MEDS: FERROUS SULFATE 325 MG TAB PO SCH ×2 (08:09→18:11)
[2022-11-08] MEDS: MULTIVITAMIN TAB PO SCH (08:09)
[2022-11-08] MEDS: QUEtiapine FUMARATE 25 MG TABLET PO SCH ×2 (08:09→20:08)
[2022-11-08] MEDS: PANTOprazole 40 MG TAB PO SCH (08:09)
[2022-11-08] MEDS: THIAMINE HCL 100 MG TAB PO SCH (08:09)
[2022-11-08] MEDS: FOLIC ACID 1 MG TAB PO SCH (08:09)
[2022-11-08] MEDS: UMECLIDINIUM/VILANTEROL 62.5/25MCG 7 PUFFS/INHALER INH SCH (08:11)
[2022-11-08] MEDS: LACTULOSE SYRUP 20 GM/30 ML UDC PO SCH (08:12)
--- NOTE | 2022-11-08 18:17 | Billing Data ---
Date of Service November 08, 2022 Coding Level of Care Code 84310 SUB INP/OBS CARE
[2022-11-08] MEDS: MELATONIN 3 MG TAB PO SCH (20:08)
--- NOTE | 2022-11-09 07:49 | Hospitalist Progress Note ---
Date of Service November 09, 2022 Assessment & Plan (1) Acute alteration in mental status: (2) Alcoholic cirrhosis of liver: (3) GERD (gastroesophageal reflux disease): (4) Hypertension: (5) COPD (chronic obstructive pulmonary disease): (6) History of intracranial hemorrhage: (7) Dementia associated with alcoholism: Plan Nicolás is a 71 y/o male with PMH of intracranial hemorrhage, alcohol induced cirrhosis, atrial fibrillation, insomnia, gout, carotid artery stenosis, COPD, who was admitted to the hospital for altered mental status in the setting of hepatic encephalitis, prior intracranial bleeding, and dementia who continues to await placement. Dementia w/ known hx of Hepatic Encephalopathy - Know hx of alcoholic cirrhosis with previous HE - Admitted 07/22/2022 d/t hyperammonemia of 156. - CT Head (08/12) and CXR (07/22) w/o acute change - Blood cx 08/12 neg. UA negative. - Baseline mentation: struggles with word finding but is able to communicate and perform some of his daily activities of living independently. - Continue delirium precautions, Melatonin, Seroquel - 25QAM & 50QHS, and 1:1 per nursing discretion - Continue Lactulose 20 mg QD, Lactulose 20mg PRN for constipation, Rifaximin 550 mg BID - goal 3-4 soft, formed BM daily - CM working on placement; [facility] pending, on 10/28/2022 case management talked to [facility] and patient will be accepted there once family returns financial packet to them. Case management called [facility] and they still have not received any paperwork from the family at this time. - Updated CBC, CMP, and ammonia on 11/02 showed no changes from previous lab work on 10/24. No changes needed at this time. - Continues to be pending placement at this time. Alcoholic Liver Cirrhosis w/ hyperbilirubinemia - Pt with elevated bilirubin at 4.8 secondary to chronic liver disease, stable - MELD 18 upon admission - Lipase and LFT's are within baseline. - US liver showed nonvisualization of the gallbladder and common bile duct as well as cirrhosis w/o hepatic mass - Continue Lasix 40 mg daily Atrial Fibrillation - Not on anticoagulation due to recent intracranial hemorrhage - Episodes of irregular rhythm Hypertension - Continue home lisinopril 5 mg Hx of Intracranial Hemorrhage - Continue levetiracetam Deconditioning - PT recommends care either at SNF or at home with home health depending on family choice - Still pending placement/paperwork from family: per CM, insurance denied SNF GERD - Continue Protonix COPD - Continue home inhaler Electrolyte imbalances - Electrolytes were monitored and repleted as necessary during admission. - Last set of labs 11/02 Diet:Fully alert -minced and moist; less alert - pureed DVT ppx:SCDs Dispo:CM to f/u with Family and [facility] Code Status:DNR/DNI Admission and Anticipated Discharge Date Admission Date: July 23, 2022 Supervising Physician Co-Signing Physician Notes I personally examined the patient and verified all lebron points of history and exam, discussed case, and agree with decision making with Dr Paredes resting comfortably sitting in bed. Vitals noted, in general appears to be in no distress. Breathing unlabored. skin without pallor. Dementia w/ h/o intracranial bleed, hepatic encephalopathy - continue lactulose, rifaximin. Continue Seroquel at 50mg qHS and 25mg daily and monitor. hospital day #109, still waiting on placement, daughter working on paperwork/financials otherwise as above Subjective Nicolás is doing well today. Sitting in bed eating breakfast without any complaints. Review of Systems Review of Systems: As per above Physical Exam Physical Exam: Constitutional: well-appearing, no acute distress HEENT: NCAT, no conjunctival injection Resp: no increased work of breathing, lungs CTA B/L Cardio: RRR without murmur MSK: no gross deformities appreciated Skin: warm, dry, no rash appreciated Neuro: alert, oriented, no focal neurologic deficit appreciated Results & Data Results & Data ([facility]) Vital Signs (Past 12 Hours) Vital Signs Temp Pulse Resp BP Pulse Ox O2 Del Method 11/08/22 23:01 36.5 C 66 16 152/76 H 95 Room Air Resident Activity Tracking Resident Involvement: Resident Care Provided Care Provided: Adult Hospital Medicine
[2022-11-09] MEDS: PANTOprazole 40 MG TAB PO SCH (08:12)
[2022-11-09] MEDS: QUEtiapine FUMARATE 25 MG TABLET PO SCH ×2 (08:12→20:21)
[2022-11-09] MEDS: rifAXIMin 550 MG TABLET PO SCH ×2 (08:12→20:21)
[2022-11-09] MEDS: FERROUS SULFATE 325 MG TAB PO SCH ×2 (08:12→17:14)
[2022-11-09] MEDS: lisinopril 5 MG TAB PO SCH (08:12)
[2022-11-09] MEDS: THIAMINE HCL 100 MG TAB PO SCH (08:12)
[2022-11-09] MEDS: CHOLECALCIFEROL 1,000 UNITS 25 MCG TAB PO SCH (08:13)
[2022-11-09] MEDS: LACTULOSE SYRUP 20 GM/30 ML UDC PO SCH (08:13)
[2022-11-09] MEDS: UMECLIDINIUM/VILANTEROL 62.5/25MCG 7 PUFFS/INHALER INH SCH (08:13)
[2022-11-09] MEDS: MULTIVITAMIN TAB PO SCH (08:13)
[2022-11-09] MEDS: FOLIC ACID 1 MG TAB PO SCH (08:13)
--- NOTE | 2022-11-09 18:55 | Billing Data ---
Date of Service November 09, 2022 Coding Level of Care Code 52150 SUB INP/OBS CARE
[2022-11-09] MEDS: MELATONIN 3 MG TAB PO SCH (20:20)
--- NOTE | 2022-11-10 07:11 | Hospitalist Progress Note ---
Date of Service November 10, 2022 Assessment & Plan (1) Acute alteration in mental status: (2) Alcoholic cirrhosis of liver: (3) GERD (gastroesophageal reflux disease): (4) Hypertension: (5) COPD (chronic obstructive pulmonary disease): (6) History of intracranial hemorrhage: (7) Dementia associated with alcoholism: Plan Nicolás is a 71 y/o male with PMH of intracranial hemorrhage, alcohol induced cirrhosis, atrial fibrillation, insomnia, gout, carotid artery stenosis, COPD, who was admitted to the hospital for altered mental status in the setting of hepatic encephalitis, prior intracranial bleeding, and dementia who continues to await placement. Still waiting for paperwork to be filled out by daughters prior to admission to [facility]. Per case management paperwork is almost complete and hopefully that he could be admitted as soon as next week. Dementia w/ known hx of Hepatic Encephalopathy - Know hx of alcoholic cirrhosis with previous HE - Admitted 07/22/2022 d/t hyperammonemia of 156. - CT Head (08/12) and CXR (07/22) w/o acute change - Blood cx 08/12 neg. UA negative. - Baseline mentation: struggles with word finding but is able to communicate and perform some of his daily activities of living independently. - Continue delirium precautions, Melatonin, Seroquel - 25QAM & 50QHS, and 1:1 per nursing discretion - Continue Lactulose 20 mg QD, Lactulose 20mg PRN for constipation, Rifaximin 550 mg BID - goal 3-4 soft, formed BM daily - Updated CBC, CMP, and ammonia on 11/02 showed no changes from previous lab work on 10/24. No changes needed at this time. - Continues to be pending placement at this time. Alcoholic Liver Cirrhosis w/ hyperbilirubinemia - Pt with elevated bilirubin at 4.8 secondary to chronic liver disease, stable - MELD 18 upon admission - Lipase and LFT's are within baseline. - US liver showed nonvisualization of the gallbladder and common bile duct as well as cirrhosis w/o hepatic mass - Continue Lasix 40 mg daily Atrial Fibrillation - Not on anticoagulation due to recent intracranial hemorrhage - Episodes of irregular rhythm Hypertension - Continue home lisinopril 5 mg Hx of Intracranial Hemorrhage - Continue levetiracetam Deconditioning - PT recommends 24/ care either at SNF or at home with home health depending on family choice - Still pending placement/paperwork from family: per CM, insurance denied SNF GERD - Continue Protonix COPD - Continue home inhaler Electrolyte imbalances - Electrolytes were monitored and repleted as necessary during admission. - Last set of labs 11/02 Diet:Fully alert -minced and moist; less alert - pureed DVT ppx:SCDs Dispo:CM to f/u with Family and [facility] Code Status:DNR/DNI Admission and Anticipated Discharge Date Admission Date: July 23, 2022 Supervising Physician Co-Signing Physician Notes I personally examined the patient and verified all lebrno points of history and exam, discussed case, and agree with decision making with Dr Harlan handley again. Vitals noted, in general appears to be in no distress. Breathing unlabored. skin without pallor. Dementia w/ h/o intracranial bleed, hepatic encephalopathy - continue lactulose, rifaximin. Continue Seroquel at 50mg qHS and 25mg daily and monitor. hospital day #109, still waiting on placement, daughter working on paperwork/financials groggy/AMS - waxing/waning of dementia vs dehydration vs worse HE picture- check BMP, ammonia - supportive care otherwise as above Subjective Nicolás is doing well today. Sitting in bed eating breakfast without any complaints. He was still pretty tired when I saw him, but answering questions. Review of Systems Review of Systems: As per above Physical Exam Physical Exam: Constitutional: well-appearing, no acute distress HEENT: NCAT, no conjunctival injection Resp: no increased work of breathing, lungs CTA B/L Cardio: RRR without murmur MSK: no gross deformities appreciated Skin: warm, dry, no rash appreciated Neuro: alert, oriented, no focal neurologic deficit appreciated Results & Data Results & Data ([facility]) Vital Signs (Past 12 Hours) Vital Signs Temp Pulse Resp BP Pulse Ox O2 Del Method 11/09/22 22:00 36.6 C 69 18 127/70 95 Room Air Resident Activity Tracking Resident Involvement: Resident Care Provided Care Provided: Adult Hospital Medicine
[2022-11-10] MEDS: LACTULOSE SYRUP 20 GM/30 ML UDC PO SCH ×3 (09:13→19:38)
[2022-11-10] MEDS: UMECLIDINIUM/VILANTEROL 62.5/25MCG 7 PUFFS/INHALER INH SCH (09:13)
[2022-11-10] MEDS: CHOLECALCIFEROL 1,000 UNITS 25 MCG TAB PO SCH (09:14)
[2022-11-10] MEDS: MULTIVITAMIN TAB PO SCH (09:14)
[2022-11-10] MEDS: PANTOprazole 40 MG TAB PO SCH (09:14)
[2022-11-10] MEDS: rifAXIMin 550 MG TABLET PO SCH ×2 (09:14→19:40)
[2022-11-10] MEDS: THIAMINE HCL 100 MG TAB PO SCH (09:15)
[2022-11-10] MEDS: FERROUS SULFATE 325 MG TAB PO SCH ×2 (09:15→16:06)
[2022-11-10] MEDS: QUEtiapine FUMARATE 25 MG TABLET PO SCH ×2 (09:15→19:39)
[2022-11-10] MEDS: FOLIC ACID 1 MG TAB PO SCH (09:15)
[2022-11-10] MEDS: lisinopril 5 MG TAB PO SCH (09:15)
[2022-11-10 14:42] LABS: BUN Creatinine Ratio 15.6 (10-20); Calcium 8.9 mg/dl (8.5-10.1); Creatinine Clr Calc Pharmacy 66.2 ml/min; Est GFR (African American) 91.8 ml/min; Est GFR (Non-African American) 79.2 ml/min
--- NOTE | 2022-11-10 14:45 | Billing Data ---
Date of Service November 10, 2022 Coding Level of Care Code 40272 SUB INP/OBS CARE
[2022-11-10] MEDS ORDERED: LACTULOSE SYRUP 30 GM/45 ML UDP PO STA (15:11)
[2022-11-10] MEDS: MELATONIN 3 MG TAB PO SCH (19:39)
--- NOTE | 2022-11-11 06:40 | Communication Note ---
Date of Service: November 11, 2022 Interim progress reviewed. Patient awaiting insurance and placement. Cooperative with PO Neisha. [facility] will be d/c as has not needed. Please contact liaison if additional concerns during stay to determine if reconsultation necessary.
--- NOTE | 2022-11-11 07:13 | Hospitalist Progress Note ---
Date of Service November 11, 2022 Assessment & Plan (1) Acute alteration in mental status: (2) Alcoholic cirrhosis of liver: (3) GERD (gastroesophageal reflux disease): (4) Hypertension: (5) COPD (chronic obstructive pulmonary disease): (6) History of intracranial hemorrhage: (7) Dementia associated with alcoholism: Plan Nicolás is a 71 y/o male with PMH of intracranial hemorrhage, alcohol induced cirrhosis, atrial fibrillation, insomnia, gout, carotid artery stenosis, COPD, who was admitted to the hospital for altered mental status in the setting of hepatic encephalitis, prior intracranial bleeding, and dementia who continues to await placement. Still waiting for paperwork to be filled out by daughters prior to admission to [facility]. Per case management paperwork is almost complete and hopefully that he could be admitted as soon as next week. Dementia w/ known hx of Hepatic Encephalopathy - Know hx of alcoholic cirrhosis with previous HE - Admitted 07/22/2022 d/t hyperammonemia of 156. - CT Head (08/12) and CXR (07/22) w/o acute change - Blood cx 08/12 neg. UA negative. - Baseline mentation: struggles with word finding but is able to communicate and perform some of his daily activities of living independently. - Continue delirium precautions, Melatonin, Seroquel - 25QAM & 50QHS, and 1:1 per nursing discretion - Continue Lactulose 20 mg QD, Lactulose 20mg PRN for constipation, Rifaximin 550 mg BID - goal 3-4 soft, formed BM daily - Updated CBC, CMP, and ammonia on 11/02 showed no changes from previous lab work on 10/24. No changes needed at this time. - Continues to be pending placement at this time. Alcoholic Liver Cirrhosis w/ hyperbilirubinemia - Pt with elevated bilirubin at 4.8 secondary to chronic liver disease, stable - MELD 18 upon admission - Lipase and LFT's are within baseline. - US liver showed nonvisualization of the gallbladder and common bile duct as well as cirrhosis w/o hepatic mass - Continue Lasix 40 mg daily Atrial Fibrillation - Not on anticoagulation due to recent intracranial hemorrhage - Episodes of irregular rhythm Hypertension - Continue home lisinopril 5 mg Hx of Intracranial Hemorrhage - Continue levetiracetam Deconditioning - PT recommends 24/ care either at SNF or at home with home health depending on family choice - Still pending placement/paperwork from family: per CM, insurance denied SNF GERD - Continue Protonix COPD - Continue home inhaler Electrolyte imbalances - Electrolytes were monitored and repleted as necessary during admission. - Last set of labs 11/02 Diet:Fully alert -minced and moist; less alert - pureed DVT ppx:SCDs Dispo:CM to f/u with Family and [facility] Code Status:DNR/DNI Admission and Anticipated Discharge Date Admission Date: July 23, 2022 Supervising Physician Co-Signing Physician Notes I personally examined the patient and verified all lebron points of history and exam, discussed case, and agree with decision making of biomedical instrument technician. Subjective Nicolás is doing well today. Sitting at bedside observing the outdoors. Patient conversive today, notes he wants to leave hospital. States he is not in pain. Review of Systems Review of Systems: As per above. Physical Exam Physical Exam: Constitutional: well-appearing, no acute distress HEENT: NCAT, no conjunctival injection Resp: No increased work of breathing, lungs CTA B/L Cardio: RRR without murmur Skin: warm, dry, no rash appreciated Neuro: Alert w/o orientation, no focal deficits Results & Data Results & Data ([facility]) Vital Signs (Past 12 Hours) Vital Signs Temp Pulse Resp BP Pulse Ox O2 Del Method 11/11/22 02:30 36.6 C 71 16 168/77 H 94 Room Air 11/10/22 19:39 Room Air Laboratory Results Abnormal lab results 11/10/22 11/10/22 Range/Units 14:16 14:16 Chloride 108 H (98-107) mmol/L Glucose 198 H (70-99(Fasting)) mg/dl Ammonia 90.0 H (18-72) umol/L Resident Activity Tracking Resident Involvement: Resident Care Provided Care Provided: Adult Hospital Medicine
[2022-11-11] MEDS: rifAXIMin 550 MG TABLET PO SCH ×2 (08:18→20:09)
[2022-11-11] MEDS: lisinopril 5 MG TAB PO SCH (08:19)
[2022-11-11] MEDS: UMECLIDINIUM/VILANTEROL 62.5/25MCG 7 PUFFS/INHALER INH SCH (08:19)
[2022-11-11] MEDS: FOLIC ACID 1 MG TAB PO SCH (08:20)
[2022-11-11] MEDS: MULTIVITAMIN TAB PO SCH (08:20)
[2022-11-11] MEDS: PANTOprazole 40 MG TAB PO SCH (08:20)
[2022-11-11] MEDS: QUEtiapine FUMARATE 25 MG TABLET PO SCH ×2 (08:21→20:09)
[2022-11-11] MEDS: CHOLECALCIFEROL 1,000 UNITS 25 MCG TAB PO SCH (08:21)
[2022-11-11] MEDS: THIAMINE HCL 100 MG TAB PO SCH (08:21)
[2022-11-11] MEDS: FERROUS SULFATE 325 MG TAB PO SCH ×2 (08:21→16:45)
[2022-11-11] MEDS: LACTULOSE SYRUP 20 GM/30 ML UDC PO SCH ×4 (08:22→20:09)
[2022-11-11] MEDS: MELATONIN 3 MG TAB PO SCH (20:13)
--- NOTE | 2022-11-12 07:23 | Hospitalist Progress Note ---
Date of Service November 12, 2022 Assessment & Plan (1) Acute alteration in mental status: (2) Alcoholic cirrhosis of liver: (3) GERD (gastroesophageal reflux disease): (4) Hypertension: (5) COPD (chronic obstructive pulmonary disease): (6) History of intracranial hemorrhage: (7) Dementia associated with alcoholism: Plan Nicolás is a 71 y/o male with PMH of intracranial hemorrhage, alcohol induced cirrhosis, atrial fibrillation, insomnia, gout, carotid artery stenosis, COPD, who was admitted to the hospital for altered mental status in the setting of hepatic encephalitis, prior intracranial bleeding, and dementia who continues to await placement. Still waiting for paperwork to be filled out by daughters prior to admission to [facility]. Per case management paperwork is almost complete [facility] for transfer to [facility] this week. Dementia w/ known hx of Hepatic Encephalopathy - Know hx of alcoholic cirrhosis with previous HE - Admitted 07/22/2022 d/t hyperammonemia of 156. - CT Head (08/12) and CXR (07/22) w/o acute change - Blood cx 08/12 neg. UA negative. - Baseline mentation: struggles with word finding but is able to communicate and perform some of his daily activities of living independently. - Continue delirium precautions, Melatonin, Seroquel - 25QAM & 50QHS, and 1:1 per nursing discretion - Continue Lactulose 20 mg QD, Lactulose 20mg PRN for constipation, Rifaximin 550 mg BID - goal 3-4 soft, formed BM daily - Updated CBC, CMP, and ammonia on 11/02 showed no changes from previous lab work on 10/24. No changes needed at this time. - Continues to be pending placement at this time. Alcoholic Liver Cirrhosis w/ hyperbilirubinemia - Pt with elevated bilirubin at 4.8 secondary to chronic liver disease, stable - MELD 18 upon admission - Lipase and LFT's are within baseline. - US liver showed nonvisualization of the gallbladder and common bile duct as well as cirrhosis w/o hepatic mass - Continue Lasix 40 mg daily Atrial Fibrillation - Not on anticoagulation due to recent intracranial hemorrhage - Episodes of irregular rhythm Hypertension - Continue home lisinopril 5 mg Hx of Intracranial Hemorrhage - Continue levetiracetam Deconditioning - PT recommends 24/ care either at SNF or at home with home health depending on family choice - Still pending placement/paperwork from family: per CM, insurance denied SNF GERD - Continue Protonix COPD - Continue home inhaler Electrolyte imbalances - Electrolytes were monitored and repleted as necessary during admission. - Last set of labs 11/02 Diet:Fully alert -minced and moist; less alert - pureed DVT ppx:SCDs Dispo:CM to f/u with [facility] and [facility] Code Status:DNR/DNI Admission and Anticipated Discharge Date Admission Date: July 23, 2022 Supervising Physician Co-Signing Physician Notes I personally examined the patient and verified all lebron points of history and exam, discussed case, and agree with decision making of medical accountant. Subjective 11/12: Patient sitting upright at bedside and comfortable upon arrival. Mildly conversive, otherwise no meaningful HPI. Denies pain. Review of Systems Review of Systems: As per above. Physical Exam Physical Exam: Constitutional: well-appearing, no acute distress HEENT: NCAT, no conjunctival injection Resp: No increased work of breathing, lungs CTA B/L Cardio: RRR without murmur Skin: warm, dry, no rash appreciated Neuro: Alert w/o orientation, no focal deficits Results & Data Results & Data ([facility]) Vital Signs (Past 12 Hours) Vital Signs Temp Pulse Resp BP Pulse Ox O2 Del Method O2 Flow Rate 11/11/22 22:19 38.7 C H 102 H 24 133/82 95 Nasal Cannula 2 11/11/22 22:01 36.6 C 62 18 118/62 96 Room Air 11/11/22 21:00 36.4 C L 61 19 104/58 L 95 Room Air 11/11/22 20:08 36.7 C 72 18 132/80 96 Room Air Resident Activity Tracking Resident Involvement: Resident Care Provided Care Provided: Adult Hospital Medicine
[2022-11-12] MEDS: CHOLECALCIFEROL 1,000 UNITS 25 MCG TAB PO SCH (08:07)
[2022-11-12] MEDS: MULTIVITAMIN TAB PO SCH (08:07)
[2022-11-12] MEDS: THIAMINE HCL 100 MG TAB PO SCH (08:07)
[2022-11-12] MEDS: rifAXIMin 550 MG TABLET PO SCH ×2 (08:07→20:10)
[2022-11-12] MEDS: PANTOprazole 40 MG TAB PO SCH (08:07)
[2022-11-12] MEDS: QUEtiapine FUMARATE 25 MG TABLET PO SCH ×2 (08:07→20:10)
[2022-11-12] MEDS: FERROUS SULFATE 325 MG TAB PO SCH ×2 (08:07→17:13)
[2022-11-12] MEDS: lisinopril 5 MG TAB PO SCH (08:07)
[2022-11-12] MEDS: LACTULOSE SYRUP 20 GM/30 ML UDC PO SCH ×4 (08:07→20:10)
[2022-11-12] MEDS: UMECLIDINIUM/VILANTEROL 62.5/25MCG 7 PUFFS/INHALER INH SCH (08:08)
[2022-11-12] MEDS: FOLIC ACID 1 MG TAB PO SCH (08:08)
[2022-11-12] MEDS: MELATONIN 3 MG TAB PO SCH (20:10)
--- NOTE | 2022-11-13 07:42 | Hospitalist Progress Note ---
Date of Service November 13, 2022 Assessment & Plan (1) Acute alteration in mental status: (2) Alcoholic cirrhosis of liver: (3) GERD (gastroesophageal reflux disease): (4) Hypertension: (5) COPD (chronic obstructive pulmonary disease): (6) History of intracranial hemorrhage: (7) Dementia associated with alcoholism: Plan Nicolás is a 71 y/o male with PMH of intracranial hemorrhage, alcohol induced cirrhosis, atrial fibrillation, insomnia, gout, carotid artery stenosis, COPD, who was admitted to the hospital for altered mental status in the setting of hepatic encephalitis, prior intracranial bleeding, and dementia who continues to await placement. Still waiting for paperwork to be filled out by daughters prior to admission to [facility]. Per case management paperwork is almost complete [facility] for transfer to [facility] by week's end. Dementia w/ known hx of Hepatic Encephalopathy - Know hx of alcoholic cirrhosis with previous HE - Admitted 07/22/2022 d/t hyperammonemia of 156. - CT Head (08/12) and CXR (07/22) w/o acute change - Blood cx 08/12 neg. UA negative. - Baseline mentation: struggles with word finding but is able to communicate and perform some of his daily activities of living independently. - Continue delirium precautions, Melatonin, Seroquel - 25QAM & 50QHS, and 1:1 per nursing discretion - Continue Lactulose 20 mg QD, Lactulose 20mg PRN for constipation, Rifaximin 550 mg BID - goal 3-4 soft, formed BM daily - Updated CBC, CMP, and ammonia on 11/02 showed no changes from previous lab work on 10/24. No changes needed at this time. - Continues to be pending placement at this time. Alcoholic Liver Cirrhosis w/ hyperbilirubinemia - Pt with elevated bilirubin at 4.8 secondary to chronic liver disease, stable - MELD 18 upon admission - Lipase and LFT's are within baseline. - US liver showed nonvisualization of the gallbladder and common bile duct as well as cirrhosis w/o hepatic mass - Continue Lasix 40 mg daily Atrial Fibrillation - Not on anticoagulation due to recent intracranial hemorrhage - Episodes of irregular rhythm Hypertension - Continue home lisinopril 5 mg Hx of Intracranial Hemorrhage - Continue levetiracetam Deconditioning - PT recommends 24/ care either at SNF or at home with home health depending on family choice - Still pending placement/paperwork from family: per CM, insurance denied SNF GERD - Continue Protonix COPD - Continue home inhaler Electrolyte imbalances - Electrolytes were monitored and repleted as necessary during admission. - Last set of labs 11/02 Diet:Fully alert -minced and moist; less alert - pureed DVT ppx:SCDs Dispo:CM to f/u with [facility] and [facility] Code Status:DNR/DNI Admission and Anticipated Discharge Date Admission Date: July 23, 2022 Supervising Physician Co-Signing Physician Notes I personally examined the patient and verified all lebron points of history and exam, discussed case, and agree with decision making of medical management specialist. Subjective 11/13: Patient resting comfortably in bed upon arrival, no acute concerns, mildly conversive, no meaningful HPI. Review of Systems Review of Systems: As per above. Physical Exam Physical Exam: Constitutional: well-appearing, no acute distress HEENT: NCAT, no conjunctival injection Resp: No increased work of breathing, lungs CTA B/L Cardio: RRR without murmur Skin: warm, dry, no rash appreciated Neuro: Alert w/o orientation, no focal deficits Results & Data Results & Data ([facility]) Vital Signs (Past 12 Hours) Vital Signs Temp Pulse Resp BP Pulse Ox O2 Del Method 11/12/22 22:46 36.5 C 68 20 107/65 92 Room Air Resident Activity Tracking Resident Involvement: Resident Care Provided Care Provided: Adult Hospital Medicine
[2022-11-13] MEDS: lisinopril 5 MG TAB PO SCH (08:13)
[2022-11-13] MEDS: CHOLECALCIFEROL 1,000 UNITS 25 MCG TAB PO SCH (08:13)
[2022-11-13] MEDS: LACTULOSE SYRUP 20 GM/30 ML UDC PO SCH ×4 (08:13→20:33)
[2022-11-13] MEDS: rifAXIMin 550 MG TABLET PO SCH ×2 (08:13→20:34)
[2022-11-13] MEDS: UMECLIDINIUM/VILANTEROL 62.5/25MCG 7 PUFFS/INHALER INH SCH (08:13)
[2022-11-13] MEDS: FOLIC ACID 1 MG TAB PO SCH (08:13)
[2022-11-13] MEDS: QUEtiapine FUMARATE 25 MG TABLET PO SCH ×2 (08:13→20:33)
[2022-11-13] MEDS: PANTOprazole 40 MG TAB PO SCH (08:13)
[2022-11-13] MEDS: FERROUS SULFATE 325 MG TAB PO SCH ×2 (08:13→17:54)
[2022-11-13] MEDS: MULTIVITAMIN TAB PO SCH (08:13)
[2022-11-13] MEDS: THIAMINE HCL 100 MG TAB PO SCH (08:13)
[2022-11-13] MEDS: MELATONIN 3 MG TAB PO SCH (20:36)
--- NOTE | 2022-11-14 07:52 | Hospitalist Progress Note ---
Date of Service November 14, 2022 Assessment & Plan (1) Acute alteration in mental status: (2) Alcoholic cirrhosis of liver: (3) GERD (gastroesophageal reflux disease): (4) Hypertension: (5) COPD (chronic obstructive pulmonary disease): (6) History of intracranial hemorrhage: (7) Dementia associated with alcoholism: Plan Nicolás is a 71 y/o male with PMH of intracranial hemorrhage, alcohol induced cirrhosis, atrial fibrillation, insomnia, gout, carotid artery stenosis, COPD, who was admitted to the hospital for altered mental status in the setting of hepatic encephalitis, prior intracranial bleeding, and dementia who continues to await placement. Paperwork pending for [facility], anticipate discharge by week's end. Dementia w/ known hx of Hepatic Encephalopathy - Know hx of alcoholic cirrhosis with previous HE - Admitted 07/22/2022 d/t hyperammonemia of 156. - CT Head (08/12) and CXR (07/22) w/o acute change - Blood cx 08/12 neg. UA negative. - Baseline mentation: struggles with word finding but is able to communicate and perform some of his daily activities of living independently. - Continue delirium precautions, Melatonin, Seroquel - 25QAM & 50QHS, and 1:1 per nursing discretion - Continue Lactulose 20 mg QD, Lactulose 20mg PRN for constipation, Rifaximin 550 mg BID - goal 3-4 soft, formed BM daily - Updated CBC, CMP, and ammonia on 11/02 showed no changes from previous lab work on 10/24. No changes needed at this time. - Continues to be pending placement at this time. Alcoholic Liver Cirrhosis w/ hyperbilirubinemia - Pt with elevated bilirubin at 4.8 secondary to chronic liver disease, stable - MELD 18 upon admission - Lipase and LFT's are within baseline. - US liver showed nonvisualization of the gallbladder and common bile duct as well as cirrhosis w/o hepatic mass - Continue Lasix 40 mg daily Atrial Fibrillation - Not on anticoagulation due to recent intracranial hemorrhage - Episodes of irregular rhythm Hypertension - Continue home lisinopril 5 mg Hx of Intracranial Hemorrhage - Continue levetiracetam Deconditioning - PT recommends 24/7 care either at SNF or at home with home health depending on family choice - Still pending placement/paperwork from family: per CM, insurance denied SNF GERD - Continue Protonix COPD - Continue home inhaler Electrolyte imbalances - Electrolytes were monitored and repleted as necessary during admission. - Last set of labs 11/02 Diet:Fully alert -minced and moist; less alert - pureed DVT ppx:SCDs Dispo:[facility] at discharge Code Status:DNR/DNI Admission and Anticipated Discharge Date Admission Date: July 23, 2022 Supervising Physician Co-Signing Physician Notes I have seen and examined patient. I agree with Assessment and plan as documented by Medical Student/Resident. Subjective 11/14: Patient resting comfortably in bed upon arrival, no meaningful HPI, patient is at his baseline (per AM nursing). Review of Systems Review of Systems: As per above. Physical Exam Physical Exam: Constitutional: well-appearing, no acute distress HEENT: NCAT, no conjunctival injection Resp: No increased work of breathing, lungs CTA B/L Cardio: RRR without murmur GI: No abdominal pain, distension or HSM Skin: warm, dry, no rash appreciated Neuro: Alert w/o orientation, no focal deficits Results & Data Results & Data ([facility]) Vital Signs (Past 12 Hours) Vital Signs Temp Pulse Resp BP Pulse Ox O2 Del Method 11/13/22 23:00 36.5 C 75 16 120/61 94 Room Air 11/13/22 20:10 Room Air Resident Activity Tracking Resident Involvement: Resident Care Provided Care Provided: Adult Hospital Medicine
[2022-11-14] MEDS: FOLIC ACID 1 MG TAB PO SCH (08:34)
[2022-11-14] MEDS: QUEtiapine FUMARATE 25 MG TABLET PO SCH ×2 (08:35→20:28)
[2022-11-14] MEDS: MULTIVITAMIN TAB PO SCH (08:35)
[2022-11-14] MEDS: CHOLECALCIFEROL 1,000 UNITS 25 MCG TAB PO SCH (08:36)
[2022-11-14] MEDS: PANTOprazole 40 MG TAB PO SCH (08:40)
[2022-11-14] MEDS: lisinopril 5 MG TAB PO SCH (08:40)
[2022-11-14] MEDS: THIAMINE HCL 100 MG TAB PO SCH (08:41)
[2022-11-14] MEDS: rifAXIMin 550 MG TABLET PO SCH ×2 (08:41→20:28)
[2022-11-14] MEDS: FERROUS SULFATE 325 MG TAB PO SCH ×2 (08:41→18:19)
[2022-11-14] MEDS: LACTULOSE SYRUP 20 GM/30 ML UDC PO SCH ×4 (08:42→20:27)
[2022-11-14] MEDS: UMECLIDINIUM/VILANTEROL 62.5/25MCG 7 PUFFS/INHALER INH SCH (14:47)
[2022-11-14] MEDS: MELATONIN 3 MG TAB PO SCH (20:27)
--- NOTE | 2022-11-15 07:29 | Hospitalist Progress Note ---
Date of Service November 15, 2022 Assessment & Plan (1) Acute alteration in mental status: (2) Alcoholic cirrhosis of liver: (3) GERD (gastroesophageal reflux disease): (4) Hypertension: (5) COPD (chronic obstructive pulmonary disease): (6) History of intracranial hemorrhage: (7) Dementia associated with alcoholism: Plan Nicolás is a 71 y/o male with PMH of intracranial hemorrhage, alcohol induced cirrhosis, atrial fibrillation, insomnia, gout, carotid artery stenosis, COPD, who was admitted to the hospital for altered mental status in the setting of hepatic encephalitis, prior intracranial bleeding, and dementia who continues to await placement. Paperwork pending for [facility], anticipate discharge by week's end. Dementia w/ known hx of Hepatic Encephalopathy - Know hx of alcoholic cirrhosis with previous HE - Admitted 07/22/2022 d/t hyperammonemia of 156. - CT Head (08/12) and CXR (07/22) w/o acute change - Blood cx 08/12 neg. UA negative. - Baseline mentation: struggles with word finding but is able to communicate and perform some of his daily activities of living independently. - Continue delirium precautions, Melatonin, Seroquel - 25QAM & 50QHS, and 1:1 per nursing discretion - Continue Lactulose 20 mg QD, Lactulose 20mg PRN for constipation, Rifaximin 550 mg BID - goal 3-4 soft, formed BM daily - Updated CBC, CMP, and ammonia on 11/02 showed no changes from previous lab work on 10/24. No changes needed at this time. - Continues to be pending placement at this time. Alcoholic Liver Cirrhosis w/ hyperbilirubinemia - Pt with elevated bilirubin at 4.8 secondary to chronic liver disease, stable - MELD 18 upon admission - Lipase and LFT's are within baseline. - US liver showed nonvisualization of the gallbladder and common bile duct as well as cirrhosis w/o hepatic mass - Continue Lasix 40 mg daily Atrial Fibrillation - Not on anticoagulation due to recent intracranial hemorrhage - Episodes of irregular rhythm Hypertension - Continue home lisinopril 5 mg Hx of Intracranial Hemorrhage - Continue levetiracetam Deconditioning - PT recommends 24/7 care either at SNF or at home with home health depending on family choice - Still pending placement/paperwork from family: per CM, insurance denied SNF GERD - Continue Protonix COPD - Continue home inhaler Electrolyte imbalances - Electrolytes were monitored and repleted as necessary during admission. - Last set of labs 11/02 Diet:Fully alert -minced and moist; less alert - pureed DVT ppx:SCDs Dispo:[facility] at discharge Code Status:DNR/DNI Admission and Anticipated Discharge Date Admission Date: July 23, 2022 Supervising Physician Co-Signing Physician Notes 72 yr old male stable for discharge, case management working with family for placement. Patient examined with resident, agree to documented history, physical exam, and plan. Subjective 11/15: Patient resting comfortably in chair upon arrival, no meaningful HPI, patient is at his baseline and pleasantly conversive. Review of Systems Review of Systems: As per above. Physical Exam Physical Exam: Constitutional: well-appearing, no acute distress HEENT: NCAT, no conjunctival injection Resp: No increased work of breathing, lungs CTA B/L Cardio: RRR without murmur GI: No abdominal pain, distension or HSM Skin: warm, dry, no rash appreciated Neuro: Alert w/o orientation, no focal deficits Results & Data Results & Data ([facility]) Vital Signs (Past 12 Hours) Vital Signs Temp Pulse Resp BP Pulse Ox O2 Del Method 11/14/22 22:04 36.4 C L 64 18 158/71 H 95 Room Air Resident Activity Tracking Resident Involvement: Resident Care Provided Care Provided: Adult Hospital Medicine
[2022-11-15] MEDS: rifAXIMin 550 MG TABLET PO SCH ×2 (08:49→20:34)
[2022-11-15] MEDS: FOLIC ACID 1 MG TAB PO SCH (08:49)
[2022-11-15] MEDS: QUEtiapine FUMARATE 25 MG TABLET PO SCH ×2 (08:49→20:34)
[2022-11-15] MEDS: THIAMINE HCL 100 MG TAB PO SCH (08:49)
[2022-11-15] MEDS: MULTIVITAMIN TAB PO SCH (08:50)
[2022-11-15] MEDS: UMECLIDINIUM/VILANTEROL 62.5/25MCG 7 PUFFS/INHALER INH SCH (08:50)
[2022-11-15] MEDS: lisinopril 5 MG TAB PO SCH (08:50)
[2022-11-15] MEDS: CHOLECALCIFEROL 1,000 UNITS 25 MCG TAB PO SCH (08:50)
[2022-11-15] MEDS: PANTOprazole 40 MG TAB PO SCH (08:50)
[2022-11-15] MEDS: LACTULOSE SYRUP 20 GM/30 ML UDC PO SCH ×4 (08:50→20:34)
[2022-11-15] MEDS: FERROUS SULFATE 325 MG TAB PO SCH ×2 (08:50→16:36)
[2022-11-15] MEDS: MELATONIN 3 MG TAB PO SCH (20:33)
--- NOTE | 2022-11-16 07:53 | Hospitalist Progress Note ---
Date of Service November 16, 2022 Assessment & Plan (1) Acute alteration in mental status: (2) Alcoholic cirrhosis of liver: (3) GERD (gastroesophageal reflux disease): (4) Hypertension: (5) COPD (chronic obstructive pulmonary disease): (6) History of intracranial hemorrhage: (7) Dementia associated with alcoholism: Plan Nicolás is a 71 y/o male with PMH of intracranial hemorrhage, alcohol induced cirrhosis, atrial fibrillation, insomnia, gout, carotid artery stenosis, COPD, who was admitted to the hospital for altered mental status in the setting of hepatic encephalitis, prior intracranial bleeding, and dementia who continues to await placement. Paperwork pending for [facility], anticipate discharge by week's end? Dementia w/ known hx of Hepatic Encephalopathy - Know hx of alcoholic cirrhosis with previous HE - Admitted 07/22/2022 d/t hyperammonemia of 156. - CT Head (08/12) and CXR (07/22) w/o acute change - Blood cx 08/12 neg. UA negative. - Baseline mentation: struggles with word finding but is able to communicate and perform some of his daily activities of living independently. - Continue delirium precautions, Melatonin, Seroquel - 25QAM & 50QHS, and 1:1 per nursing discretion - Continue Lactulose 20 mg QD, Lactulose 20mg PRN for constipation, Rifaximin 550 mg BID - goal 3-4 soft, formed BM daily - Updated CBC, CMP, and ammonia on 11/02 showed no changes from previous lab work on 10/24. No changes needed at this time. - Continues to be pending placement at this time. Alcoholic Liver Cirrhosis w/ hyperbilirubinemia - Pt with elevated bilirubin at 4.8 secondary to chronic liver disease, stable - MELD 18 upon admission - Lipase and LFT's are within baseline. - US liver showed nonvisualization of the gallbladder and common bile duct as well as cirrhosis w/o hepatic mass - Continue Lasix 40 mg daily Atrial Fibrillation - Not on anticoagulation due to recent intracranial hemorrhage - Episodes of irregular rhythm Hypertension - Continue home lisinopril 5 mg Hx of Intracranial Hemorrhage - Continue levetiracetam Deconditioning - PT recommends 24/7 care either at SNF or at home with home health depending on family choice - Still pending placement/paperwork from family: per CM, insurance denied SNF GERD - Continue Protonix COPD - Continue home inhaler Electrolyte imbalances - Electrolytes were monitored and repleted as necessary during admission. - Last set of labs 11/02 Diet:Fully alert -minced and moist; less alert - pureed DVT ppx:SCDs Dispo:[facility] at discharge Code Status:DNR/DNI Admission and Anticipated Discharge Date Admission Date: July 23, 2022 Supervising Physician Co-Signing Physician Notes 72 yr old male with a complex medical history and advanced dementia, with a prolonged hospital stay due to difficulties determining placement, case management is assisting. Patient examined independently of resident, agree to documented history, physical exam, and plan of resident physician. Subjective 11/16: Nicolás was resting in bed upon arrival and had just eaten his breakfast. At baseline, no meaningful HPI. Pleasant and cam, deneis pain. Review of Systems Review of Systems: As per above. Physical Exam Physical Exam: Constitutional: well-appearing, no acute distress HEENT: NCAT, no conjunctival injection Resp: No increased work of breathing, lungs CTA B/L Cardio: RRR without murmur GI: No abdominal pain, distension or HSM Skin: warm, dry, no rash appreciated Neuro: Alert w/o orientation, no focal deficits Results & Data Results & Data ([facility]) Vital Signs (Past 12 Hours) Vital Signs Temp Pulse Resp BP Pulse Ox O2 Del Method 11/15/22 22:26 36.4 C L 83 18 150/82 H 96 Room Air Resident Activity Tracking Resident Involvement: Resident Care Provided Care Provided: Adult Hospital Medicine
[2022-11-16] MEDS: FERROUS SULFATE 325 MG TAB PO SCH ×2 (08:04→17:59)
[2022-11-16] MEDS: PANTOprazole 40 MG TAB PO SCH (08:04)
[2022-11-16] MEDS: QUEtiapine FUMARATE 25 MG TABLET PO SCH ×2 (08:04→21:26)
[2022-11-16] MEDS: THIAMINE HCL 100 MG TAB PO SCH (08:04)
[2022-11-16] MEDS: LACTULOSE SYRUP 20 GM/30 ML UDC PO SCH ×4 (08:05→21:26)
[2022-11-16] MEDS: lisinopril 5 MG TAB PO SCH (08:05)
[2022-11-16] MEDS: FOLIC ACID 1 MG TAB PO SCH (08:05)
[2022-11-16] MEDS: rifAXIMin 550 MG TABLET PO SCH ×2 (08:05→21:26)
[2022-11-16] MEDS: CHOLECALCIFEROL 1,000 UNITS 25 MCG TAB PO SCH (08:05)
[2022-11-16] MEDS: MULTIVITAMIN TAB PO SCH (08:05)
[2022-11-16] MEDS: UMECLIDINIUM/VILANTEROL 62.5/25MCG 7 PUFFS/INHALER INH SCH (08:06)
[2022-11-16] MEDS: MELATONIN 3 MG TAB PO SCH (21:26)
[2022-11-17] MEDS: UMECLIDINIUM/VILANTEROL 62.5/25MCG 7 PUFFS/INHALER INH SCH (07:35)
[2022-11-17] MEDS: FERROUS SULFATE 325 MG TAB PO SCH ×2 (07:35→18:11)
[2022-11-17] MEDS: MULTIVITAMIN TAB PO SCH (07:36)
[2022-11-17] MEDS: CHOLECALCIFEROL 1,000 UNITS 25 MCG TAB PO SCH (07:36)
[2022-11-17] MEDS: rifAXIMin 550 MG TABLET PO SCH ×2 (07:36→20:34)
[2022-11-17] MEDS: FOLIC ACID 1 MG TAB PO SCH (07:36)
[2022-11-17] MEDS: lisinopril 5 MG TAB PO SCH (07:36)
[2022-11-17] MEDS: LACTULOSE SYRUP 20 GM/30 ML UDC PO SCH ×4 (07:36→20:34)
[2022-11-17] MEDS: PANTOprazole 40 MG TAB PO SCH (07:36)
[2022-11-17] MEDS: QUEtiapine FUMARATE 25 MG TABLET PO SCH ×2 (07:37→20:34)
[2022-11-17] MEDS: THIAMINE HCL 100 MG TAB PO SCH (07:37)
--- NOTE | 2022-11-17 14:39 | Hospitalist Progress Note ---
Date of Service November 17, 2022 Assessment & Plan (1) Acute alteration in mental status: (2) Alcoholic cirrhosis of liver: (3) GERD (gastroesophageal reflux disease): (4) Hypertension: (5) COPD (chronic obstructive pulmonary disease): (6) History of intracranial hemorrhage: (7) Dementia associated with alcoholism: Plan Nicolás is a 71 y/o male with PMH of intracranial hemorrhage, alcohol induced cirrhosis, atrial fibrillation, insomnia, gout, carotid artery stenosis, COPD, who was admitted to the hospital for altered mental status in the setting of hepatic encephalitis, prior intracranial bleeding, and dementia who continues to await placement. Paperwork pending for [facility], anticipate discharge by week's end? Dementia w/ known hx of Hepatic Encephalopathy - Know hx of alcoholic cirrhosis with previous HE - Admitted 07/22/2022 d/t hyperammonemia of 156. - CT Head (08/12) and CXR (07/22) w/o acute change - Blood cx 08/12 neg. UA negative. - Baseline mentation: struggles with word finding but is able to communicate and perform some of his daily activities of living independently. - Continue delirium precautions, Melatonin, Seroquel - 25QAM & 50QHS, and 1:1 per nursing discretion - Continue Lactulose 20 mg QD, Lactulose 20mg PRN for constipation, Rifaximin 550 mg BID - goal 3-4 soft, formed BM daily - Updated CBC, CMP, and ammonia on 11/02 showed no changes from previous lab work on 10/24. Will order recheck for tomorrow. - Continues to be pending placement at this time. Alcoholic Liver Cirrhosis w/ hyperbilirubinemia - Pt with elevated bilirubin at 4.8 secondary to chronic liver disease - MELD 18 upon admission - US liver showed nonvisualization of the gallbladder and common bile duct as well as cirrhosis w/o hepatic mass - Continue Lasix 40 mg daily Atrial Fibrillation - Not on anticoagulation due to recent intracranial hemorrhage - Episodes of irregular rhythm Hypertension - Continue home lisinopril 5 mg Hx of Intracranial Hemorrhage - Continue levetiracetam Deconditioning - PT recommends 24/ care either at SNF or at home with home health depending on family choice - Still pending placement/paperwork from family: per CM, insurance denied SNF GERD - Continue Protonix COPD - Continue home inhaler Electrolyte imbalances - Electrolytes were monitored and repleted as necessary during admission. - Last set of labs 11/02 Diet:Fully alert -minced and moist; less alert - pureed DVT ppx:SCDs Dispo:[facility] at discharge Code Status:DNR/DNI Admission and Anticipated Discharge Date Admission Date: July 23, 2022 Supervising Physician Co-Signing Physician Notes 72-yr-old male with a complex medical history and advanced dementia, with a prolonged hospital stay due to difficulties determining placement, case management is assisting. Recheck labs tomorrow. Patient examined independently of resident, agree to documented history, physical exam, and plan of resident physician. Subjective 11/17: Nicolás was sitting at bedside upon arrive and had just finished transferring from the bathroom with nursing. At baseline, no meaningful HPI. Patient denies discomfort. Review of Systems Review of Systems: As per above. Physical Exam Physical Exam: Constitutional: well-appearing, no acute distress HEENT: NCAT, no conjunctival injection Resp: No increased work of breathing, lungs CTA B/L Cardio: RRR without murmur GI: No abdominal pain, distension or HSM Skin: warm, dry, no rash appreciated Neuro: Alert w/o orientation, no focal deficits Results & Data Results & Data ([facility]) Vital Signs (Past 12 Hours) Vital Signs Temp Pulse Resp BP Pulse Ox O2 Del Method 11/17/22 07:12 36.6 C 77 18 131/74 95 Room Air Resident Activity Tracking Resident Involvement: Resident Care Provided Care Provided: Adult Hospital Medicine
[2022-11-17] MEDS: MELATONIN 3 MG TAB PO SCH (20:33)
[2022-11-18 07:04] LABS: Hemoglobin 12.3 g/dl (14.0-18.0); Mean Corpuscular Hemoglobin 35.7 pg (25.0-34.0); Mean Corpuscular Hgb Conc 37.3 g/dL (32.0-36.0); Mean Corpuscular Volume 95.7 fL (80.0-100.0); Mean Platelet Volume 10.5 fL (9.4-12.4); Platelet Count 105 K/uL (130-400); RDW Coefficient of Variation 13.8 % (11.5-14.5); RDW Standard Deviation 48.4 fL (36.4-46.3); Red Blood Count 3.45 M/uL (4.70-6.10); White Blood Count 4.77 K/ul (4.8-10.8)
--- NOTE | 2022-11-18 07:43 | Hospitalist Progress Note ---
Date of Service November 18, 2022 Assessment & Plan (1) Acute alteration in mental status: (2) Alcoholic cirrhosis of liver: (3) GERD (gastroesophageal reflux disease): (4) Hypertension: (5) COPD (chronic obstructive pulmonary disease): (6) History of intracranial hemorrhage: (7) Dementia associated with alcoholism: Plan Nicolás is a 71 y/o male with PMH of intracranial hemorrhage, alcohol induced cirrhosis, atrial fibrillation, insomnia, gout, carotid artery stenosis, COPD, who was admitted to the hospital for altered mental status in the setting of hepatic encephalitis, prior intracranial bleeding, and dementia who continues to await placement. Paperwork pending for [facility], anticipate discharge by week's end? Dementia w/ known hx of Hepatic Encephalopathy - Know hx of alcoholic cirrhosis with previous HE - Admitted 07/22/2022 d/t hyperammonemia of 156. - CT Head (08/12) and CXR (07/22) w/o acute change - Blood cx 08/12 neg. UA negative. - Baseline mentation: struggles with word finding but is able to communicate and perform some of his daily activities of living independently. - Continue delirium precautions, Melatonin, Seroquel - 25QAM & 50QHS, and 1:1 per nursing discretion - Continue Lactulose 20 mg QD, Lactulose 20mg PRN for constipation, Rifaximin 550 mg BID - goal 3-4 soft, formed BM daily - Updated CBC, CMP, and ammonia on 11/02 showed no changes from previous lab work on 10/24. No changes needed at this time. - Continues to be pending placement at this time. --- Lactulose reduced from QID dosing to BID Alcoholic Liver Cirrhosis w/ hyperbilirubinemia - Pt with elevated bilirubin at 4.8 secondary to chronic liver disease, stable - MELD 18 upon admission - Lipase and LFT's are within baseline. - US liver showed nonvisualization of the gallbladder and common bile duct as well as cirrhosis w/o hepatic mass - Continue Lasix 40 mg daily Atrial Fibrillation - Not on anticoagulation due to recent intracranial hemorrhage - Episodes of irregular rhythm Hypertension - Continue home lisinopril 5 mg Hx of Intracranial Hemorrhage - Continue levetiracetam Deconditioning - PT recommends 24/ care either at SNF or at home with home health depending on family choice - Still pending placement/paperwork from family: per CM, insurance denied SNF GERD - Continue Protonix COPD - Continue home inhaler Electrolyte imbalances - Electrolytes were monitored and repleted as necessary during admission. - Last set of labs 11/02 Diet:Fully alert -minced and moist; less alert - pureed DVT ppx:SCDs Dispo:[facility] at discharge Code Status:DNR/DNI Admission and Anticipated Discharge Date Admission Date: July 23, 2022 Supervising Physician Co-Signing Physician Notes I personally examined the patient and verified all lebron points of history and exam, discussed case, and agree with decision making with Dr Chisholm Sitting, looking at the window.. Vitals noted, in general appears to be in no distress. Breathing unlabored. skin without pallor. Dementia w/ h/o intracranial bleed, hepatic encephalopathy - continue lactulose, rifaximin. Continue Seroquel at 50mg qHS and 25mg daily and monitor. hospital day #118, still waiting on placement, Luis may have all the necessary information now. otherwise as above Subjective 11/18: Nicolás was sitting at bedside in chair upon arrival and was eating breakfast. At baseline mentation, no meaningful HPI. Patient denies pain. Review of Systems Review of Systems: As per above. Physical Exam Physical Exam: Constitutional: well-appearing, no acute distress HEENT: NCAT, no conjunctival injection Resp: No increased work of breathing, lungs CTA B/L Cardio: RRR without murmur GI: No abdominal pain, distension or HSM Skin: warm, dry, no rash appreciated Neuro: Alert w/o orientation, no focal deficits Results & Data Results & Data ([facility]) Vital Signs (Past 12 Hours) Vital Signs Temp Pulse Resp BP Pulse Ox O2 Del Method 11/18/22 07:36 36.5 C 93 H 18 169/89 H 95 Room Air 11/18/22 00:45 36.6 C 83 18 127/71 94 Room Air Resident Activity Tracking Resident Involvement: Resident Care Provided Care Provided: Adult Hospital Medicine
[2022-11-18 07:53] LABS: Albumin Level 2.7 gm/dl (3.4-5.0); Bilirubin,Total 2.5 mg/dl (0.2-1.0); Calcium 8.4 mg/dl (8.5-10.1)
[2022-11-18 07:59] LABS: Albumin Globulin Ratio 0.9 (0.9-2); BUN Creatinine Ratio 13.8 (10-20); Est GFR (African American) 100.6 ml/min; Est GFR (Non-African American) 86.8 ml/min; Globulin 2.9 gm/dl (2.5-4.0); Total Protein 5.6 gm/dl (6.0-8.3)
[2022-11-18] MEDS: FERROUS SULFATE 325 MG TAB PO SCH ×2 (09:26→16:44)
[2022-11-18] MEDS: CHOLECALCIFEROL 1,000 UNITS 25 MCG TAB PO SCH (09:27)
[2022-11-18] MEDS: QUEtiapine FUMARATE 25 MG TABLET PO SCH (09:27)
[2022-11-18] MEDS: UMECLIDINIUM/VILANTEROL 62.5/25MCG 7 PUFFS/INHALER INH SCH (09:27)
[2022-11-18] MEDS: FOLIC ACID 1 MG TAB PO SCH (09:27)
[2022-11-18] MEDS: PANTOprazole 40 MG TAB PO SCH (09:28)
[2022-11-18] MEDS: THIAMINE HCL 100 MG TAB PO SCH (09:28)
[2022-11-18] MEDS: rifAXIMin 550 MG TABLET PO SCH ×2 (09:28→20:56)
[2022-11-18] MEDS: MULTIVITAMIN TAB PO SCH (09:28)
[2022-11-18] MEDS: LACTULOSE SYRUP 20 GM/30 ML UDC PO SCH ×2 (10:23→20:55)
[2022-11-18] MEDS: lisinopril 5 MG TAB PO SCH (10:54)
--- NOTE | 2022-11-18 17:51 | Billing Data ---
Date of Service November 18, 2022 Coding Level of Care Code 29687 SUB INP/OBS CARE
[2022-11-18] MEDS: MELATONIN 3 MG TAB PO SCH (20:56)
[2022-11-18] MEDS ORDERED: QUEtiapine FUMARATE 25 MG TABLET PO SCH (21:50)
[2022-11-19] MEDS: rifAXIMin 550 MG TABLET PO SCH (08:15)
[2022-11-19] MEDS: THIAMINE HCL 100 MG TAB PO SCH (08:15)
[2022-11-19] MEDS: UMECLIDINIUM/VILANTEROL 62.5/25MCG 7 PUFFS/INHALER INH SCH (08:15)
[2022-11-19] MEDS: PANTOprazole 40 MG TAB PO SCH (08:15)
[2022-11-19] MEDS: LACTULOSE SYRUP 20 GM/30 ML UDC PO SCH (08:15)
[2022-11-19] MEDS: lisinopril 5 MG TAB PO SCH (08:15)
[2022-11-19] MEDS: MULTIVITAMIN TAB PO SCH (08:15)
[2022-11-19] MEDS: CHOLECALCIFEROL 1,000 UNITS 25 MCG TAB PO SCH (08:16)
[2022-11-19] MEDS: FERROUS SULFATE 325 MG TAB PO SCH (08:16)
[2022-11-19] MEDS: FOLIC ACID 1 MG TAB PO SCH (08:16)
--- NOTE | 2022-11-19 10:17 | Discharge Summary ---
Date of Service November 19, 2022 Admission HPI Per Admitting Provider Nicolás Fortune is a 71 y/o male who presented to the ED with his daughter and granddaughter for increased confusion. His PMH includes intracranial hemorrhage, alcohol induced cirrhosis, atrial fibrillation, insomnia, gout, carotid artery stenosis, COPD. His daughter, Ankita, is at bedside providing history. The patient lives with his granddaughter who takes care of him. Mr. Fortune was recently discharged from [facility] on 07/20/22 for altered mental status secondary to hepatic encephalopathy. His daughter notes that in the past week prior to his recent admission, he had increased agitation and a shift in his personality- notes he recently had to put his dog down and feels he has been depressed. She notes that on the day of his recent discharge he was slightly "improved," however since then he has been very talkative/agitated/frustrated. His daughter states they are exhausted and concerned for his safety so they brought him back to the hospital today. She states he has not complained of any pain, trouble breathing, or changes in bladder function- notes he is occasionally incontinent of bowel at baseline. He has been eating and drinking without issue. She states he is supervised with his medication administration and he has not missed any doses. Admission Exam Per Admitting Provider Constitutional: + altered mental status Eyes: + anicteric sclerae and EOM intact bilat erally ENMT: Mouth: + poor dentition Neck: trachea midline, no thyromegaly Respiratory: normal respiratory effort, lungs clear to auscultation Cardiovascular: Rate/Rhythm: + irregularly irregular Heart Sounds: normal S1 and normal S2 Vessels: no JVD Extremities: no edema Gastrointestinal (Abdomen): Inspection/Auscultation: normal bowel sounds Percussion/Palpation: abdomen soft; abdomen nontender Musculoskeletal: Extremities: extremities normal to inspection Skin: no rashes, warm and dry Psychiatric: confused, expressive aphasia Principal Diagnosis Altered Mental Status Hepatic Encephalopathy Discharge Exam Constitutional: well-appearing, no acute distress HEENT: NCAT, no conjunctival injection Resp: No increased work of breathing, lungs CTA B/L Cardio: RRR without murmur GI: No abdominal pain, distension or HSM Skin: warm, dry, no rash appreciated Neuro: Alert w/o orientation, no focal deficits Discharge Data Allergies Allergy/AdvReac Type Severity Reaction Status Date / Time terazosin Allergy Severe PRIAPISM- Verified 05/13/22 18:43 ON [facility] spironolactone Allergy Unknown ON Verified 05/13/22 18:43 [facility]. trazodone AdvReac Unknown Unknown Verified 05/13/22 18:43 Consultations 07/22/22 21:25 ED Decision to Admit Stat 09/20/22 10:31 Consult Psychiatry Routine Ordered Studies 07/22/22 19:59 CT head/brain wo con Stat 08/12/22 20:35 CT head/brain wo con Stat 08/12/22 20:53 CT angio head w con Urgent CT angio neck with con Urgent 08/13/22 13:37 US liver Urgent 08/13/22 16:53 US point of care ultrasound Routine 09/03/22 15:06 CT head/brain wo con Urgent Hospital Course (1) Acute alteration in mental status: (2) Alcoholic cirrhosis of liver: (3) GERD (gastroesophageal reflux disease): (4) Hypertension: (5) COPD (chronic obstructive pulmonary disease): (6) History of intracranial hemorrhage: (7) Dementia associated with alcoholism: Jalen Monzon is a 71 y/o male with PMH of intracranial hemorrhage, alcohol induced cirrhosis, atrial fibrillation, insomnia, gout, carotid artery stenosis, COPD, who was admitted to the hospital for altered mental status in the setting of hepatic encephalitis, prior intracranial bleeding, and dementia who continues to await placement. Dementia w/ known hx of Hepatic Encephalopathy - Know hx of alcoholic cirrhosis with previous HE - Admitted 07/22/2022 d/t hyperammonemia of 156. - CT Head (08/12) and CXR (07/22) w/o acute change - Blood cx 08/12 neg. UA negative. - Baseline mentation: struggles with word finding but is able to communicate and perform some of his daily activities of living independently. - Continue delirium precautions, Melatonin, Seroquel - 25QAM & 50QHS, and 1:1 per nursing discretion - Continue Lactulose 20 mg QD, Lactulose 20mg PRN for constipation, Rifaximin 550 mg BID - goal 3-4 soft, formed BM daily - Updated CBC, CMP, and ammonia on 11/02 showed no changes from previous lab work on 10/24. No changes needed at this time. - Continues to be pending placement at this time. --- Lactulose reduced from QID dosing to BID Alcoholic Liver Cirrhosis w/ hyperbilirubinemia - Pt with elevated bilirubin at 4.8 secondary to chronic liver disease, stable - MELD 18 upon admission - Lipase and LFT's are within baseline. - US liver showed nonvisualization of the gallbladder and common bile duct as well as cirrhosis w/o hepatic mass - Continue Lasix 40 mg daily Atrial Fibrillation - Not on anticoagulation due to recent intracranial hemorrhage - Episodes of irregular rhythm Hypertension - Continue home lisinopril 5 mg Hx of Intracranial Hemorrhage - Continue levetiracetam Deconditioning - PT recommends 12/05 care either at SN[facility] - Continue Protonix COPD - Continue home inhaler Electrolyte imbalances - Electrolytes were monitored and repleted as necessary during admission. - Last set of labs 11/02 --- Recommend following CMP/CBC q 2 weeks or PRN Diet:Fully alert -minced and moist; less alert - pureed DVT ppx:SCDs Dispo:[facility] at discharge Code Status:DNR/DNI Total Time Total Time Spent Total Time Spent (In Minutes): <30 minutes Discharge Plan Discharge Items Patient Disposition: Transfer [facility] Living [facility] Reason For Visit: CONFUSION Discharge Diagnosis: Hepatic encephalopathy Activity: Per Instructions section Non-emergency contact: Primary Care Provider and Web Applications Architect Call non-emergency contact if: your symptoms worsen, your pain is unusual for you and your temperature is above 101.5 Follow-up/Referrals: Craig Worthy DO [Primary Care Provider] - 08/05/22 9:20 am Diet: Heart Healthy Addtl Attending Provider Instructions: Nicolás is a 71 y/o male with PMH of intracranial hemorrhage, alcohol induced cirrhosis, atrial fibrillation, insomnia, gout, carotid artery stenosis, COPD, who was admitted to the hospital for altered mental status in the setting of hepatic encephalitis, prior intracranial bleeding, and dementia who continues to await placement. Dementia w/ known hx of Hepatic Encephalopathy - Known hx of alcoholic cirrhosis with previous HE - Admitted 07/22/2022 d/t hyperammonemia of 156. - CT Head (08/12) and CXR (07/22) w/o acute change - Blood cx 08/12 neg. UA negative. - Baseline mentation: struggles with word finding but is able to communicate and perform some of his daily activities of living independently. - Continue delirium precautions, Melatonin, Seroquel - 25QAM & 50QHS, and 1:1 per nursing discretion - Continue Lactulose 20 mg QD, Lactulose 20mg PRN for constipation, Rifaximin 550 mg BID - goal 3-4 soft, formed BM daily - Updated CBC, CMP, and ammonia on 11/02 showed no changes from previous lab work on 10/24. No changes needed at this time. - Continues to be pending placement at this time. --- Lactulose reduced from QID dosing to BID Alcoholic Liver Cirrhosis w/ hyperbilirubinemia - Pt with elevated bilirubin at 4.8 secondary to chronic liver disease, stable - MELD 18 upon admission - Lipase and LFT's are within baseline. - US liver showed nonvisualization of the gallbladder and common bile duct as well as cirrhosis w/o hepatic mass - Continue Lasix 40 mg daily Atrial Fibrillation - Not on anticoagulation due to recent intracranial hemorrhage - Episodes of irregular rhythm Hypertension - Continue home lisinopril 5 mg Hx of Intracranial Hemorrhage - Continue levetiracetam Deconditioning - PT recommending SNF [facility] - Continue Protonix COPD - Continue home inhaler Electrolyte imbalances - Electrolytes were monitored and repleted as necessary during admission. - Last set of labs 11/18 --- Recommend trending q 2 weeks or PRN Diet:Fully alert -minced and moist; less alert - pureed DVT ppx:SCDs Dispo:[facility] at discharge Code Status:DNR/DNI Pending Studies at Discharge: No Stand-Alone Forms: My [facility] new test company, Smoking Cessation Skilled Items Patient informed of condition?: Yes DNR: Yes Discharge Level of Care: Skilled Communicable Disease: No Discharge Prognosis: Stable Lines: None Urinary Catheter: No Medications and DC Order Prescriptions: New lactulose 20 gram/30 mL solution 30 g PO TID Qty: 2880 0RF Rx Instructions: Increase/Decrease lactulose for a goal of 2-3 soft formed bowel movements daily quetiapine 25 mg Tablet 50 mg PO QPM 30 Days Qty: 60 0RF pantoprazole 40 mg Tablet,Delayed Release (Dr/Ec) 40 mg PO QAM 30 Days Qty: 30 0RF lactulose 20 gram/30 mL Solution 20 g PO BID 30 Days Qty: 1800 0RF lactulose 20 gram/30 mL Solution 20 g PO Q24H PRN (Reason: laxative effect) 30 Days Qty: 2880 0RF Continued furosemide [Lasix] 40 mg tablet 40 mg PO BID Qty: 60 2RF Rx Instructions: give every AM at 8am, and every afternoon at 5pm. levetiracetam [Keppra] 500 mg tablet 500 mg PO Q12H Qty: 60 2RF lisinopril 5 mg tablet 5 mg PO DAILY Qty: 30 3RF pantoprazole [Protonix] 40 mg tablet,delayed release (DR/EC) 40 mg PO BID Qty: 60 2RF potassium chloride 20 mEq tablet,ER particles/crystals 20 meq PO BID Qty: 60 1RF albuterol sulfate 90 mcg/actuation HFA aerosol inhaler 1 inh inhalation QID PRN (Reason: shortness of breath or wheezing) Qty: 8.5 3RF ferrous sulfate 325 mg (65 mg iron) tablet 325 mg PO BID Qty: 180 1RF Anoro Ellipta 62.5-25 mcg/actuation blister with device 1 inh INHALATION QAM Qty: 60 11RF Rx Instructions: RINSE MOUTH THOROUGHLY AND SPIT AFTER EACH USE multivitamin [Daily-Verena] Tablet 1 tab PO QAM Qty: 30 2RF cholecalciferol (vitamin D3) 25 mcg (1,000 unit) Capsule 2,000 unit PO QAM Qty: 60 2RF acetaminophen 325 mg Tablet 650 mg PO Q4H MDD 3 GM APAP/24 HOURS PRN (Reason: Fever Or Pain) Rx Instructions: NEEDED FOR MILD PAIN OR FEVER GREATER THAN 100 F melatonin 3 mg Tablet 6 mg PO HS PRN (Reason: Sleep) rifaximin 550 mg Tablet 550 mg PO BID Rx Instructions: STOP 06/08/22 Ocular Lubricant 1 drp OPB QID PRN (Reason: Dry Eyes) Discontinued lactulose [Generlac] 10 gram/15 mL solution 20 g PO TID Qty: 946 0RF Discharge Orders: Discharge Order (Routine); Ordered 11/19/22 Ordered By: Seun Chisholm Admission Data Admit Date/Time: 07/23/22 01:11 Attending Provider: Edinson Soni Admit Provider: Nova Gruber Primary Care Provider: Craig Worthy Other Providers: Lázaro Trujillo ; Baldo Bernstein [facility] [place] ; Baldo Schwartz ; Edinson Soni ; Emily Koroma ; Tamanna Nguyen ; [facility]erral [facility] ; Rekha Briseno ; Vilma Kern ; Rona Florian ; Vic Gould ; [facility] ; Biju Steiner ; Aicha Butt Other Interventions: Discharge Summary Assessment (RN) Last Done: 11/19/22 10:11 Supervising Physician Co-Signing Physician Notes I personally examined the patient and verified all lebron points of history and exam, discussed case, and agree with decision making with Dr Chisholm Sitting, talkative although nonsensical.. Vitals noted, in general appears to be in no distress. Breathing unlabored. skin without pallor. Dementia w/ h/o intracranial bleed, hepatic encephalopathy - continue lactulose, rifaximin. Continue Seroquel at 50mg qHS and 25mg daily and monitor. Discharge to [facility] today. otherwise as above Resident Activity Tracking Resident Involvement: Resident Care Provided Care Provided: Adult Hospital Medicine
--- NOTE | 2022-11-19 19:01 | Billing Data ---
Date of Service November 19, 2022 Coding Level of Care Code HOSP INP/OBS DISCH 30 MIN/LESS
--- NOTE | 2022-11-19 19:04 | Billing Data ---
Date of Service November 19, 2022 Coding Level of Care Code HOSP INP/OBS DISCH 30 MIN/LESS
--- NOTE | 2022-11-22 12:49 | Coding Query ---
CODING QUERY To promote full compliance with coding requirements relating to patient care, provider participation is requested in all cases of auditing coder uncertainty. Please assist us with the question(s) below: Coding Question(s): Please specify below, in your clinical opinion, the diagnosis most responsible for occasioning the inpatient admission: (x ) Altered Mental Status/Confusion most likely due to Hepatic Encephalopathy ( x) Altered Mental Status/Confusion most likely due to Dementia ( ) Other: Please Specify both - he has chronic dementia that is likely both chronic alcoholic dementia as well as dementia post intracranial hemorrhage BUT also had acute episodes of worsening that were due to acute decompensation of his hepatic encephalopathy (essentially causing a delirium on dementia) Physician's Response(s): Thank you Melany Crawford Principal Diagnosis: "that condition established after study, to be chiefly responsible for occasioning the admission of the patient to the hospital for care." Co-Existing Principal Diagnosis: "when two or more diagnoses equally meet the criteria for principal diagnosis as determined by the circumstances of admission, diagnostic work up, and/or therapy provided, and the Alphabetic Index, Tabular List, or another coding guideline does not provide sequencing direction, any one of the diagnoses may be sequenced first." "When the physician has documented what appears to be a current diagnosis in the body of the record, but has not included the diagnosis in the final diagnostic statement, the physician should be asked whether the diagnosis should be added." ([facility] 2 QTR90. p3-4) CAIN
--- NOTE | 2022-11-22 12:53 | Coding Query ---
CODING QUERY To promote full compliance with coding requirements relating to patient care, provider participation is requested in all cases of advertising copywriter uncertainty. Please assist us with the question(s) below: Coding Question(s): Through the chart there is alcoholism, alcohol use, and alcohol abuse documented. Please specify below, in your clinical opinion: ( ) alcohol use (x ) alcohol abuse (x ) alcoholism/alcohol dependence ( ) Other: Please Specify both (technically all 3 really, but abuse/dependence were the main root causes of his chronic problems) Physician's Response(s): Thank you Melany Crawford Principal Diagnosis: "that condition established after study, to be chiefly responsible for occasioning the admission of the patient to the hospital for care." Co-Existing Principal Diagnosis: "when two or more diagnoses equally meet the criteria for principal diagnosis as determined by the circumstances of admission, diagnostic work up, and/or therapy provided, and the Alphabetic Index, Tabular List, or another coding guideline does not provide sequencing direction, any one of the diagnoses may be sequenced first." "When the physician has documented what appears to be a current diagnosis in the body of the record, but has not included the diagnosis in the final diagnostic statement, the physician should be asked whether the diagnosis should be added." ([facility] 2 QTR90. p3-4) CAIN
== END 2022-11-19 11:08 | DRG 57 ==
LOC: ED 16:10 → SUATTDRO 07-23 01:11 → 2N 07-23 01:11 → 3W 07-29 23:02 → 2N 08-12 20:36 → 3N 08-17 21:52

== ENCOUNTER 2023-06-11 00:26 | Inpatient (IN) ==
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
[2023-06-11 02:00] LABS: Basophils # (auto) 0.03 K/uL (0-0.2); Basophils % (auto) 0.7 %; Eosinophils # (auto) 0.07 K/uL (0-0.50); Eosinophils % (auto) 1.6 %; Hematocrit (blood only) 37.7 % (42.0-52.0); Hemoglobin 13.7 g/dl (14.0-18.0); Immature Granulocytes # (auto) 0.07 K/uL (0.01-0.20); Immature Granulocytes % (auto) 1.6 %; Lymphocytes # (auto) 0.72 K/uL (1.2-3.4); Lymphocytes % (auto) 16.2 %; Mean Corpuscular Hemoglobin 37.7 pg (25.0-34.0); Mean Corpuscular Hgb Conc 36.3 g/dL (32.0-36.0); Mean Corpuscular Volume 103.9 fL (80.0-100.0); Mean Platelet Volume 10.7 fL (9.4-12.4); Monocytes # (auto) 0.49 K/uL (0.11-0.59); Neutrophils # (auto) 3.06 K/uL (1.40-6.50); Neutrophils % (auto) 68.9 %; Platelet Count 108 K/uL (130-400); RDW Coefficient of Variation 14.2 % (11.5-14.5); RDW Standard Deviation 54.1 fL (36.4-46.3); Red Blood Count 3.63 M/uL (4.70-6.10); White Blood Count 4.44 K/ul (4.8-10.8)
[2023-06-11 02:13] LABS: Albumin Globulin Ratio 1.1 (0.9-2); BUN Creatinine Ratio 20.3 (10-20); Bilirubin,Total 3.3 mg/dl (0.2-1.0); Calcium 8.4 mg/dl (8.6-10.3); Creatinine Clr Calc Pharmacy 94.5 ml/min; Est GFR (African American) 107.6 ml/min; Est GFR (Non-African American) 92.8 ml/min; Globulin 2.8 gm/dl (2.5-4.0); Potassium 3.4 mmol/L (3.5-5.1); Total Protein 5.8 gm/dl (6.0-8.3)
[2023-06-11 02:20] LABS: Troponin I High Sensitivity 37.2 pg/ml (0-20)
--- NOTE | 2023-06-11 03:03 | CT Scan Report ---
Exam(s): CT HEAD Without Contrast EXAM: CT Head Without Intravenous Contrast CLINICAL HISTORY: Reason for exam: found down. TECHNIQUE: Axial computed tomography images of the head/brain without intravenous contrast. CTDI is 36.37 mGy and DLP is 624.41 mGy-cm. Automated exposure control was utilized for the study. A dose lowering technique was utilized adhering to the principles of ALARA. COMPARISON: CT Head dated 07/22/2022 FINDINGS: Brain: Volume loss with enlarged ventricles and sulci. Periventricular white matter hypoattenuation likely reflects chronic small vessel disease. Focal left temporoparietal encephalomalacia, similar to the prior. No hemorrhage. Ventricles: Enlarged left lateral ventricle temporal horn likely reflects ex vacuo dilation. Bones/joints: Unremarkable. No acute fracture. Soft tissues: Unremarkable. Sinuses: Opacified small left maxillary sinus. Mastoid air cells: Unremarkable as visualized. No mastoid effusion. Orbits: Bilateral intraocular lens replacement. IMPRESSION: No acute findings in the head/brain. Electronically signed by: Caden Hsu M.D. 06/11/23 03:02 AM
--- NOTE | 2023-06-11 03:13 | CT Scan Report ---
Exam(s): CT C SPINE EXAM: CT Cervical Spine Without Intravenous Contrast CLINICAL HISTORY: Reason for exam: found down. TECHNIQUE: Axial computed tomography images of the cervical spine without intravenous contrast. CTDI is 26.96 mGy and DLP is 515.99 mGy-cm. Automated exposure control was utilized for the study. A dose lowering technique was utilized adhering to the principles of ALARA. COMPARISON: No relevant prior studies available. FINDINGS: Vertebrae: Unremarkable. No acute fracture. Discs/spinal canal/neural foramina: Multilevel degenerative changes. No severe central canal stenosis. Moderate to severe right foraminal stenosis at C3-4. Soft tissues: Unremarkable. Vasculature: Prominent carotid bulb calcifications. Lung apices: Right apical pleural-parenchymal thickening, partially visualized. IMPRESSION: No acute findings in the cervical spine. Electronically signed by: Caden Hsu M.D. 06/11/23 03:13 AM
[2023-06-11] MEDS ORDERED: fentaNYL citrate PF 100 MCG/2 ML VIAL IV STA (03:26)
--- NOTE | 2023-06-11 03:33 | CT Scan Report ---
Exam(s): CT PELVIS Without Contrast EXAM: CT Pelvis Without Intravenous Contrast CLINICAL HISTORY: Reason for exam: left hip pain s/p fall. TECHNIQUE: Axial computed tomography images of the pelvis without intravenous contrast. Automated exposure control was utilized for the study. A dose lowering technique was utilized adhering to the principles of ALARA. COMPARISON: CT abdomen pelvis dated 07/08/22 FINDINGS: Bowel: Unremarkable. No obstruction. No mucosal thickening. Appendix: No findings to suggest acute appendicitis. Intraperitoneal space: Unremarkable. No free air. No significant fluid collection. Bladder: Unremarkable. No stones. Reproductive: Penile prosthesis. Bones/joints: Avascular necrosis changes of the femoral heads similar to the prior. Acute left superior and inferior pubic rami fractures. Query extension to the acetabulum adjacent to the superior pubic ramus fracture. No dislocation. Soft tissues: Unremarkable. Vasculature: Atherosclerotic calcifications. No lower abdominal aortic aneurysm. Lymph nodes: Unremarkable. No enlarged lymph nodes. IMPRESSION: 1. Acute left superior and inferior pubic rami fractures. Query extension to the acetabulum adjacent to the superior pubic ramus fracture. 2. Avascular necrosis changes of the femoral heads similar to the prior. Electronically signed by: Caden Hsu M.D. 06/11/23 03:31 AM
--- NOTE | 2023-06-11 03:38 | CT Scan Report ---
Exam(s): CT L SPINE EXAM: CT Lumbar Spine Without Intravenous Contrast CLINICAL HISTORY: Reason for exam: low back pain s/p fall. TECHNIQUE: Axial computed tomography images of the lumbar spine without intravenous contrast. Automated exposure control was utilized for the study. A dose lowering technique was utilized adhering to the principles of ALARA. COMPARISON: CT pelvis also today. FINDINGS: Vertebrae: Acute appearing L1 superior endplate compression fracture. Minimal vertebral body height loss. No retropulsion. Discs/spinal canal/neural foramina: Multilevel degenerative changes. No spinal canal stenosis. Soft tissues: Mild associated paravertebral soft tissue stranding. Other findings: Prior CT abdomen pelvis 07/08/2022. IMPRESSION: Acute appearing L1 superior endplate compression fracture. Minimal vertebral body height loss. Electronically signed by: Caden Hsu M.D. 06/11/23 03:38 AM
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
[2023-06-11 05:07] LABS: INR 1.4 (0.9-1.1); Prothrombin Time 15.4 Seconds (9.0-12.0)
[2023-06-11] MEDS ORDERED: ALBUTEROL HFA 8 GM INHALER INH PRN (05:31)
[2023-06-11] MEDS ORDERED: ARTIFICIAL TEARS OPB PRN (05:31)
[2023-06-11] MEDS ORDERED: ACETAMINOPHEN 325 MG TAB PO PRN ×2 (05:31→16:41)
[2023-06-11] MEDS ORDERED: HYDROmorphone INJ 0.5 MG/0.5 ML SYR IV PRN ×5 (05:35→16:49)
[2023-06-11] MEDS ORDERED: LACTATED RINGER'S 1,000 ML IV SCH (05:45)
[2023-06-11] MEDS ORDERED: ACETAMINOPHEN 1,000 MG/100 ML VIAL IV SCH (06:00)
--- NOTE | 2023-06-11 06:52 | Hospitalist Progress Note ---
Date of Service June 11, 2023 Assessment & Plan (1) Fracture of multiple pubic rami: Plan: Wheelchair-bound 71 M with PMH of ICH, dementia, cirrhosis, AF, hypertension, COPD, and GERD, who [facility] after an unwitnessed fall from her wheelchair. Admitted to the hospital for multiple fractures. Left superior, inferior pubic rami fracture -Patient found on the ground next to wheelchair. Patient is unable to provide HPI due to dementia. - Ct pelvis: Acute left superior and inferior pubic rami fractures. Avascular necrosis changes of the femoral heads similar to the prior. -Orthopedic consult: No surgery at the moment. Patient can weight bear as tolerated Pain management:: IV Tylenol 1000 mg every 12 hours. As needed Dilaudid for uncontrolled pain. -S/p IV fentanyl 50 mcg in the ED. PT/OT evaluation: Acute care PT while admitted. Return to the [facility] and continue therapy. Lumbar (L1) vertebral compression fracture -L1 superior endplate compression fracture noted on CT L-spine with minimal vertebral body height loss, per radiology report. -Orthopedic back surgery: -TLSO brace if patient ambulate -No lifting over 5 pounds -if wheelchair, brace for pain control Pain management as above Type 2 UT due to demand ischemia -Patient denied any chest pain or SOB -Troponin 37.2 in the ED -Repeated in am: 58, 6hrs: 81 -Will repeat in 6 hrs Fall -Unwitnessed. Found on the ground next to wheelchair. Presumed fall occurred during attempted transfer from wheelchair. -CT head negative for intracranial pathology. Lumbar, pelvic rami fractures, as detailed above. -Fall precautions per protocol. -PT/OT eval: as above Alcoholic cirrhosis/hyperbilirubinemia -Total bilirubin 3.3 on admission, however this appears to be stable 2/2 chronic liver disease. -ALT within normal limits. AST only mildly elevated. Alk phos normal. Patient afebrile, otherwise hemodynamically stable. -Unable to calculate MELD score: 15 (Previous admission: 18) -Ammonia: 76.0 Dementia -Sent discharge summary noted quetiapine 25 mg every morning, 50 nightly patient now takes 100 mg nightly. 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 closely follow Atrial fibrillation -Due to history of ICH, not on anticoagulation. Hypertension * Continue home lisinopril 5 mg daily. History of ICH * Continue home Keppra 500 mg twice daily. COPD * Continue scheduled Advair every 12 hours, as needed Ventolin inhaler every 6 hours. Diet: Minced and Mist Code: DNR/DNI Dispo: Med-Surg telemetry DVT Prophylaxis: SCDs PT/OT: Yes Consults: Orthopedic surgery Case Management: Yes (2) Compression fracture of lumbar vertebra: (3) Dementia associated with alcoholism: (4) Unwitnessed fall: (5) Alcoholic cirrhosis of liver: (6) Atrial fibrillation: (7) Hypertension: (8) COPD (chronic obstructive pulmonary disease): (9) History of intracranial hemorrhage: Admission and Anticipated Discharge Date Admission Date: June 11, 2023 Supervising Physician Co-Signing Physician Notes Resident Physician Supervision Note: I independently interviewed and examined the patient and verified the [place] history and physical, reviewed labs and image studies and agree with resident findings and care plan. Douglas Monzon is a 72-year-old man with a history of intracranial hemorrhage, dementia, alcoholic cirrhosis, atrial fibrillation, COPD, hypertension, who presented to the ED this evening via EMS after an unwitnessed fall. Patient unable to provide history or corroborating information due to his dementia. Per EMS, however, patient was found down on the ground next to his wheelchair at his [facility]. He complained to staff there about pain in his left hip. Staff are not sure how long patient was down for. Review of Systems Review of Systems: as per hpi Physical Exam Constitutional: Oriented only in person. in no acute distress Laying in bed Respiratory: Auscultation: + diminished lung sounds; no crackles, no rales and no rhonchi On nassal cannula, sat at 96 Cardiovascular: RRR, no murmur, no edema Gastrointestinal (Abdomen): normal bowel sounds, soft, nontender, no hepatosplenomegaly Musculoskeletal: Unable to straight leg raise bilaterally 5/5 dorsiflexion plantarflexion bilaterally Results & Data Results & Data Vital Signs (Past 12 Hours) Vital Signs Temp Pulse Pulse Resp BP BP Pulse Ox 06/11/23 05:50 77 4 L 06/11/23 05:40 74 16 06/11/23 05:30 74 16 06/11/23 05:20 77 17 80 L 06/11/23 05:10 77 15 06/11/23 05:00 70 20 98 06/11/23 05:00 139/77 06/11/23 04:50 84 17 97 06/11/23 04:40 77 18 96 06/11/23 04:30 66 13 99 06/11/23 04:30 138/76 06/11/23 04:20 71 17 98 06/11/23 04:10 71 15 98 06/11/23 04:00 69 20 98 06/11/23 04:00 130/71 06/11/23 03:50 65 20 98 06/11/23 03:40 62 17 98 06/11/23 03:37 66 18 96 06/11/23 03:41 64 06/11/23 03:33 71 18 134/67 98 06/11/23 02:33 67 18 121/64 95 06/11/23 00:33 37.4 C 20 119/66 97 06/11/23 03:24 95 06/11/23 00:33 O2 Del Method 06/11/23 05:50 06/11/23 05:40 06/11/23 05:30 06/11/23 05:20 06/11/23 05:10 06/11/23 05:00 06/11/23 05:00 06/11/23 04:50 06/11/23 04:40 06/11/23 04:30 06/11/23 04:30 06/11/23 04:20 06/11/23 04:10 06/11/23 04:00 06/11/23 04:00 06/11/23 03:50 06/11/23 03:40 06/11/23 03:37 06/11/23 03:41 06/11/23 03:33 Room Air 06/11/23 02:33 Room Air 06/11/23 00:33 Room Air 06/11/23 03:24 Room Air 06/11/23 00:33 Room Air Resident Activity Tracking Resident Involvement: Resident Care Provided Care Provided: Adult Hospital Medicine
--- NOTE | 2023-06-11 07:56 | XRay Report ---
XR hip LT 2V w pelvis CLINICAL HISTORY: left hip pain s/p fall TECHNIQUE: 2 views of the left hip and single frontal view of the pelvis were obtained. Comparison: Comparison is made to left hip radiograph 10/21/2019 FINDINGS: There is no evidence of an acute fracture. Degenerative changes are seen in the hip joint. Penile imp lants noted. No soft tissue abnormality is seen. IMPRESSION: Degenerative changes without evidence of acute abnormality. ACT 112: Negative or not required by law. Electronically signed by: Padilla Artaega M.D. 06/11/2023 7:55 AM
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
[2023-06-11] MEDS ORDERED: lisinopril 5 MG TAB PO SCH (09:00)
[2023-06-11] MEDS ORDERED: levETIRAcetam ORAL SOLN 100MG/ML PO SCH (09:00)
[2023-06-11] MEDS: MULTIVITAMIN TAB PO SCH (09:09)
[2023-06-11] MEDS: FLUTICASONE/VILANTEROL 100/25MCG 14 PUFFS/INHALER INH SCH (09:09)
[2023-06-11] MEDS: LACTULOSE SYRUP 10 GM/15 ML BTL 960 ML PO SCH ×3 (09:09→19:51)
[2023-06-11] MEDS: POTASSIUM CHLORIDE 20 MEQ/15 ML UDC PO SCH ×2 (09:09→19:50)
[2023-06-11] MEDS: FUROSEMIDE 40 MG TAB PO SCH ×2 (09:09→17:30)
[2023-06-11] MEDS: CHOLECALCIFEROL 1,000 UNITS 25 MCG TAB PO SCH (09:09)
[2023-06-11] MEDS: ESCITALOPRAM OXALATE 10 MG TAB PO SCH (09:09)
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
[2023-06-11 14:41] LABS: Appearance Urine Clear (Clear); Bacteria Urine Automated Negative (Negative); Blood Urine Trace (Negative); Color Urine Orange; Epithelial Cell Urine Auto >30 /lpf (0-5); Glucose Urine UA Negative (Negative); Ketones Urine Negative (Negative); Leukocyte Esterase Urine Trace (Negative); Nitrite Urine Positive (Negative); Protein Urine Negative (Negative); Specific Gravity Urine 1.028 (1.000-1.030); Urobilinogen Urine Negative (Negative)
[2023-06-11 15:39] LABS: Bilirubin Urine 1+ (Negative)
--- NOTE | 2023-06-11 17:48 | Electrocardiogram Report ---
Test Reason : Blood Pressure : / mmHG Vent. Rate : 070 BPM Atrial Rate : 000 BPM P-R Int : 000 ms QRS Dur : 088 ms QT Int : 326 ms P-R-T Axes : 000 018 092 degrees QTc Int : 352 ms Atrial fibrillation Abnormal ECG When compared with ECG of 20-SEP-2022 17:31, No significant change Confirmed by Quang Ritter ([id number]) on 06/11/2023 5:48:24 PM Referred By: Carrington Velaaguila Confirmed By:Quang Ritter
[2023-06-11] MEDS: ACETAMINOPHEN 325 MG TAB PO PRN (18:03)
--- NOTE | 2023-06-11 19:21 | Billing Data ---
Date of Service June 11, 2023 Coding Level of Care Code 07364 INT INP/OBS CARE
[2023-06-11] MEDS: QUEtiapine FUMARATE 100 MG TABLET PO SCH (19:52)
[2023-06-11] MEDS: MELATONIN 3 MG TAB PO SCH (22:11)
[2023-06-11] MEDS: CALCITONIN SALMON NA 200 IU/AC 3.7 ML BTL SCH (22:11)
[2023-06-12 07:25] LABS: Hematocrit (blood only) 35.3 % (42.0-52.0); Hemoglobin 12.8 g/dl (14.0-18.0); Mean Corpuscular Hemoglobin 38.1 pg (25.0-34.0); Mean Corpuscular Hgb Conc 36.3 g/dL (32.0-36.0); Mean Corpuscular Volume 105.1 fL (80.0-100.0); Mean Platelet Volume 10.8 fL (9.4-12.4); Platelet Count 96 K/uL (130-400); RDW Coefficient of Variation 14.4 % (11.5-14.5); RDW Standard Deviation 55.7 fL (36.4-46.3); Red Blood Count 3.36 M/uL (4.70-6.10); White Blood Count 5.21 K/ul (4.8-10.8)
--- NOTE | 2023-06-12 07:40 | Hospitalist Progress Note ---
Date of Service June 12, 2023 Assessment & Plan (1) Fracture of multiple pubic rami: Plan: Wheelchair-bound 71 M with PMH of ICH, dementia, cirrhosis, AF, hypertension, COPD, and GERD, who presents to the hospital from skilled nursing for evaluation after an unwitnessed fall from her wheelchair. Admitted to the hospital for multiple fractures. Left superior, inferior pubic rami fracture -Patient found on the ground next to wheelchair. Patient is unable to provide HPI due to dementia. - Ct pelvis: Acute left superior and inferior pubic rami fractures. Avascular necrosis changes of the femoral heads similar to the prior. -Orthopedic consult: No surgery at the moment. Patient can weight bear as tolerated Pain management:: IV Tylenol 1000 mg every 12 hours. As needed Dilaudid for uncontrolled pain. -S/p IV fentanyl 50 mcg in the ED. PT/OT evaluation: Acute care PT while admitted. Return to the [facility] and continue therapy. Lumbar (L1) vertebral compression fracture -L1 superior endplate compression fracture noted on CT L-spine with minimal vertebral body height loss, per radiology report. -Orthopedic back surgery: -TLSO brace if patient ambulate -No lifting over 5 pounds -if wheelchair, brace for pain control Pain management as above Type 2 NV due to demand ischemia -Patient denied any chest pain or SOB -Troponin 37.2 in the ED -Repeated in am: 58, 6hrs: 81 -Will repeat in 6 hrs Fall -Unwitnessed. Found on the ground next to wheelchair. Presumed fall occurred during attempted transfer from wheelchair. -CT head negative for intracranial pathology. Lumbar, pelvic rami fractures, as detailed above. -Fall precautions per protocol. -PT/OT eval: as above Alcoholic cirrhosis/hyperbilirubinemia -Total bilirubin 3.3 on admission, however this appears to be stable 2/2 chronic liver disease. -ALT within normal limits. AST only mildly elevated. Alk phos normal. Patient afebrile, otherwise hemodynamically stable. -Unable to calculate MELD score: 15 (Previous admission: 18) -Ammonia: 76.0 Dementia -Sent discharge summary noted quetiapine 25 mg every morning, 50 nightly patient now takes 100 mg nightly. -consider goal of care discussion with patient and family Feeding ds -Diet modifications added as per previous [employer] recommendation Hypoxic episode -resolved Atrial fibrillation -Due to history of ICH, not on anticoagulation. Hypertension * Continue home lisinopril 5 mg daily. History of ICH * Continue home Keppra 500 mg twice daily. COPD * Continue scheduled Advair every 12 hours, as needed Ventolin inhaler every 6 hours. Diet: Minced and Mist Code: DNR/DNI Dispo: Med-Surg telemetry DVT Prophylaxis: SCDs PT/OT: Yes Consults: Orthopedic surgery Case Management: Yes (2) Compression fracture of lumbar vertebra: (3) Dementia associated with alcoholism: (4) Unwitnessed fall: (5) Alcoholic cirrhosis of liver: (6) Atrial fibrillation: (7) Hypertension: (8) COPD (chronic obstructive pulmonary disease): (9) History of intracranial hemorrhage: Admission and Anticipated Discharge Date Admission Date: June 11, 2023 Supervising Physician Co-Signing Physician Notes Resident Physician Supervision Note: I independently interviewed and examined the patient and verified the [place] history and physical, reviewed labs and image studies and agree with resident findings and care plan. Douglas Monzon is a 72-year-old man with a history of intracranial hemorrhage, dementia, alcoholic cirrhosis, atrial fibrillation, COPD, hypertension, who presented to the ED this evening via EMS after an unwitnessed fall. Patient unable to provide history or corroborating information due to his dementia. Per EMS, however, patient was found down on the ground next to his wheelchair at his skilled nursing. He complained to staff there about pain in his left hip. Staff are not sure how long patient was down for. Today evaluated found in no acute distress, oriented only by person. Saturating at 92 % at room air. He denied any nausea, vomiting, SOB, abdominal pain, chest pain or any other symtoms Review of Systems Review of Systems: as per hPI Physical Exam Physical Exam: He is alert but unable to answer most questions Laying in bed in no acute distress He is unable to straight leg raise bilaterally 5/5 dorsiflexion plantarflexion bilaterally. Respiratory: Auscultation: + diminished lung sounds; no crackles, no rales and no rhonchi Cardiovascular: RRR, no murmur, no edema Gastrointestinal (Abdomen): normal bowel sounds, soft, nontender, no hepatosplenomegaly Results & Data Results & Data Vital Signs (Past 12 Hours) Vital Signs Temp Pulse Resp BP BP Pulse Ox O2 Del Method 06/12/23 03:10 36.5 C 79 18 125/68 95 Nasal Cannula 06/11/23 23:46 Nasal Cannula 06/11/23 23:28 37.2 C 77 18 124/65 95 Nasal Cannula O2 Flow Rate 06/12/23 03:10 2 06/11/23 23:46 2 06/11/23 23:28 2 Resident Activity Tracking Resident Involvement: Resident Care Provided Care Provided: Adult Hospital Medicine
[2023-06-12 07:43] LABS: Estimated Average Glucose 74 mg/dl; Hemoglobin A1C 4.2 % (4.5-5.6)
[2023-06-12 07:46] LABS: BUN Creatinine Ratio 23.7 (10-20); Calcium 7.9 mg/dl (8.6-10.3); Creatinine Clr Calc Pharmacy 92.1 ml/min; Est GFR (African American) 106.4 ml/min; Est GFR (Non-African American) 91.8 ml/min; Magnesium 1.7 mg/dl (1.7-2.4); Phosphorus 2.9 mg/dl (2.5-4.9); Potassium 3.6 mmol/L (3.5-5.1)
[2023-06-12] MEDS: ACETAMINOPHEN 325 MG TAB PO PRN ×3 (07:51→19:57)
[2023-06-12] MEDS: LACTULOSE SYRUP 10 GM/15 ML BTL 960 ML PO SCH ×3 (10:11→19:46)
[2023-06-12] MEDS: FLUTICASONE/VILANTEROL 100/25MCG 14 PUFFS/INHALER INH SCH (10:12)
[2023-06-12] MEDS: CHOLECALCIFEROL 1,000 UNITS 25 MCG TAB PO SCH (10:13)
[2023-06-12] MEDS: ESCITALOPRAM OXALATE 10 MG TAB PO SCH (10:13)
[2023-06-12] MEDS: MULTIVITAMIN TAB PO SCH (10:13)
[2023-06-12] MEDS: FUROSEMIDE 40 MG TAB PO SCH (10:13)
[2023-06-12] MEDS: CALCITONIN SALMON NA 200 IU/AC 3.7 ML BTL SCH ×2 (12:39→19:48)
[2023-06-12] MEDS: QUEtiapine FUMARATE 100 MG TABLET PO SCH (19:47)
[2023-06-12] MEDS: MELATONIN 3 MG TAB PO SCH (19:48)
[2023-06-13 06:49] LABS: Hematocrit (blood only) 32.5 % (42.0-52.0); Hemoglobin 11.9 g/dl (14.0-18.0); Mean Corpuscular Hemoglobin 37.3 pg (25.0-34.0); Mean Corpuscular Hgb Conc 36.6 g/dL (32.0-36.0); Mean Corpuscular Volume 101.9 fL (80.0-100.0); Mean Platelet Volume 10.5 fL (9.4-12.4); Platelet Count 81 K/uL (130-400); RDW Coefficient of Variation 13.8 % (11.5-14.5); RDW Standard Deviation 51.9 fL (36.4-46.3); Red Blood Count 3.19 M/uL (4.70-6.10); White Blood Count 4.86 K/ul (4.8-10.8)
[2023-06-13 07:05] LABS: BUN Creatinine Ratio 24.3 (10-20); Calcium 7.6 mg/dl (8.6-10.3); Creatinine Clr Calc Pharmacy 94.5 ml/min; Est GFR (African American) 107.6 ml/min; Est GFR (Non-African American) 92.8 ml/min; Magnesium 1.6 mg/dl (1.7-2.4); Potassium 3.2 mmol/L (3.5-5.1)
--- NOTE | 2023-06-13 07:35 | Hospitalist Progress Note ---
Date of Service June 13, 2023 Assessment & Plan (1) Fracture of multiple pubic rami: Plan: Wheelchair-bound 71 M with PMH of ICH, dementia, cirrhosis, AF, hypertension, COPD, and GERD, who presents to the hospital from [facility] for evaluation after an unwitnessed fall from her wheelchair. Admitted to the hospital for multiple fractures. Left superior, inferior pubic rami fracture -Patient found on the ground next to wheelchair. Patient is unable to provide HPI due to dementia. - Ct pelvis: Acute left superior and inferior pubic rami fractures. Avascular necrosis changes of the femoral heads similar to the prior. -Orthopedic consult: No surgery at the moment. Patient can weight bear as tolerated Pain management:: Tylenol 650 prn q4hrs. As needed Dilaudid for uncontrolled pain. -S/p IV fentanyl 50 mcg in the ED. PT/OT evaluation: Acute care PT while admitted. Return to the [facility] and continue therapy. Case management in case: patient has a bed on [facility] upon dicharge. Lumbar (L1) vertebral compression fracture -L1 superior endplate compression fracture noted on CT L-spine with minimal vertebral body height loss, per radiology report. -Orthopedic back surgery: -TLSO brace if patient ambulate -No lifting over 5 pounds -if wheelchair, brace for pain control Pain management as above Type 2 ME due to demand ischemia -Patient denied any chest pain or SOB -Troponin 37.2 in the ED -Repeated in am: 58, 6hrs: 81 -Will repeat in 6 hrs Fall -Unwitnessed. Found on the ground next to wheelchair. Presumed fall occurred during attempted transfer from wheelchair. -CT head negative for intracranial pathology. Lumbar, pelvic rami fractures, as detailed above. -Fall precautions per protocol. -PT/OT eval: as above Alcoholic cirrhosis/hyperbilirubinemia -Total bilirubin 3.3 on admission, however this appears to be stable 2/2 chronic liver disease. -ALT within normal limits. AST only mildly elevated. Alk phos normal. Patient afebrile, otherwise hemodynamically stable. -Unable to calculate MELD score: 15 (Previous admission: 18) -Ammonia: 76.0 Dementia -Sent discharge summary noted quetiapine 25 mg every morning, 50 nightly patient now takes 100 mg nightly. -consider goal of care discussion with patient and family Feeding ds -Diet modifications added as per previous [employer] recommendation Hypoxic episode -resolved Atrial fibrillation -Due to history of ICH, not on anticoagulation. Hypertension * Continue home lisinopril 5 mg daily. History of ICH * Continue home Keppra 500 mg twice daily. COPD * Continue scheduled Advair every 12 hours, as needed Ventolin inhaler every 6 hours. Diet: Minced and Mist Code: DNR/DNI Dispo: Med-Surg telemetry DVT Prophylaxis: SCDs PT/OT: Yes Consults: Orthopedic surgery Case Management: Yes (2) Compression fracture of lumbar vertebra: (3) Dementia associated with alcoholism: (4) Unwitnessed fall: (5) Alcoholic cirrhosis of liver: (6) Atrial fibrillation: (7) Hypertension: (8) COPD (chronic obstructive pulmonary disease): (9) History of intracranial hemorrhage: Admission and Anticipated Discharge Date Admission Date: June 11, 2023 Douglas Monzon is a 72-year-old man with a history of intracranial hemorrhage, dementia, alcoholic cirrhosis, atrial fibrillation, COPD, hypertension, who presented to the ED this evening via EMS after an unwitnessed fall. Patient unable to provide history or corroborating information due to his dementia. Per EMS, however, patient was found down on the ground next to his wheelchair at his [facility]. He complained to staff there about pain in his left hip. Staff are not sure how long patient was down for. Today evaluated found in no acute distress, oriented only by person. Saturating at 92 % at room air. He denied any nausea, vomiting, SOB, abdominal pain, chest pain or any other symptoms. He is sleeping well, only prn Tylenol was given during the night Review of Systems Review of Systems: As per HPI Physical Exam Physical Exam: He is alert but unable to answer most questions Laying in bed in no acute distress . Respiratory: Auscultation: + diminished lung sounds; no crackles, no rales and no rhonchi Cardiovascular: RRR, no murmur, no edema Gastrointestinal (Abdomen): normal bowel sounds, soft, nontender, no hepatosplenomegaly Musculoskeletal: He is unable to straight leg raise bilaterally 5/5 dorsiflexion plantarflexion bilaterally. Results & Data Results & Data Vital Signs (Past 12 Hours) Vital Signs Temp Pulse Pulse Resp BP Pulse Ox O2 Del Method 06/13/23 02:57 36.3 C L 67 18 124/67 92 Room Air 06/13/23 01:16 Room Air 06/12/23 21:59 67 06/12/23 23:27 36.7 C 76 18 120/69 91 Room Air
[2023-06-13] MEDS: ACETAMINOPHEN 325 MG TAB PO PRN ×2 (09:07→14:16)
[2023-06-13] MEDS: CALCITONIN SALMON NA 200 IU/AC 3.7 ML BTL SCH (09:08)
[2023-06-13] MEDS: CHOLECALCIFEROL 1,000 UNITS 25 MCG TAB PO SCH (09:09)
[2023-06-13] MEDS: ESCITALOPRAM OXALATE 10 MG TAB PO SCH (09:09)
[2023-06-13] MEDS: FUROSEMIDE 40 MG TAB PO SCH (09:09)
[2023-06-13] MEDS: LACTULOSE SYRUP 10 GM/15 ML BTL 960 ML PO SCH ×2 (09:10→14:16)
[2023-06-13] MEDS: MULTIVITAMIN TAB PO SCH (09:10)
[2023-06-13] MEDS: FLUTICASONE/VILANTEROL 100/25MCG 14 PUFFS/INHALER INH SCH (09:11)
[2023-06-13] MEDS: MAGNESIUM SULFATE / D5W 1 GM/100 ML BAG IV SCH ×2 (09:11→11:44)
[2023-06-13 11:42] VITALS: TEMP 98.6; O2SAT 93
[2023-06-13 13:30] LABS: Calcium 7.7 mg/dl (8.6-10.3); Magnesium 2.1 mg/dl (1.7-2.4); Potassium 3.4 mmol/L (3.5-5.1)
[2023-06-13 13:36] LABS: BUN Creatinine Ratio 24.6 (10-20); Creatinine Clr Calc Pharmacy 101.4 ml/min; Est GFR (African American) 110.7 ml/min; Est GFR (Non-African American) 95.5 ml/min
--- NOTE | 2023-06-13 15:04 | Discharge Summary ---
Date of Service June 13, 2023 Admission HPI Per Admitting Provider Nicolás is a 72-year-old man with a history of intracranial hemorrhage, alcoholic cirrhosis, atrial fibrillation, COPD, hypertension, who presented to the ED this evening via EMS after an unwitnessed fall. Patient unable to provide history or corroborating information due to his dementia. Per EMS, however, patient was found down on the ground next to his wheelchair at his detention. He complained to staff there about pain in his left hip. Staff are not sure how long patient was down for. In the ED, vital signs were stable. Labs were notable for WBC-4.44, which appears to be near his baseline, potassium-3.4, calcium-8.4, bilirubin-3.3, troponin-37.2. CT head was negative for acute ischemic or hemorrhagic process. CT pelvis showed fracture of left superior and inferior pubic rami. CT lumbar spine showed acute compression fracture of L1 vertebra. He received IV fentanyl 50 mcg for pain control, and hospitalist service was consulted for admission. Admission Exam Per Admitting Provider General: Appears in no acute distress HEENT: PERRLA. Normal conjunctiva, anicteric sclera. Poor dentition noted on examination of oropharynx. Respiratory: Normal respiratory effort, CTABL. Cardiovascular: Normal rate. Irregular rhythm. No murmurs, gallops, or rubs. No pedal edema. GI: Soft abdomen with normal bowel sounds heard on auscultation. Nontender x4 quadrants Neuro: Arousable to voice. Verbally unintelligible. Does appear aphasic. However, unable to determine if altered as well with regard to mental status. Principal Diagnosis Left superior, inferior pubic rami fracture Lumbar (L1) vertebral compression fracture Discharge Exam Constitutional WD/WN, vitals as above Oriented only by person Respiratory normal respiratory effort, lungs clear to auscultation Cardiovascular RRR, no murmur, no edema Gastrointestinal (Abdomen) normal bowel sounds, soft, nontender, no hepatosplenomegaly Discharge Data Allergies Allergy/AdvReac Type Severity Reaction Status Date / Time terazosin Allergy Severe PRIAPISM- Verified 06/11/23 02:01 ON [facility] spironolactone Allergy Unknown ON Verified 06/11/23 02:01 [facility]. trazodone AdvReac Unknown Unknown Verified 06/11/23 02:01 Consultations 06/11/23 03:14 ED Decision to Admit Stat 06/11/23 04:18 Consult Orthopedic Surgery Routine 06/11/23 06:54 Consult Orthopedic Spine Surgery Routine Ordered Studies Cervical Spine CT 06/11/23 00:41 Exam(s): CT C SPINE EXAM: CT Cervical Spine Without Intravenous Contrast CLINICAL HISTORY: Reason for exam: found down. TECHNIQUE: Axial computed tomography images of the cervical spine without intravenous contrast. CTDI is 26.96 mGy and DLP is 515.99 mGy-cm. Automated exposure control was utilized for the study. A dose lowering technique was utilized adhering to the principles of ALARA. COMPARISON: No relevant prior studies available. FINDINGS: Vertebrae: Unremarkable. No acute fracture. Discs/spinal canal/neural foramina: Multilevel degenerative changes. No severe central canal stenosis. Moderate to severe right foraminal stenosis at C3-4. Soft tissues: Unremarkable. Vasculature: Prominent carotid bulb calcifications. Lung apices: Right apical pleural-parenchymal thickening, partially visualized. IMPRESSION: No acute findings in the cervical spine. Electronically signed by: Caden Hsu M.D. 06/11/23 03:[address] 06/11/23 00:41 Exam(s): CT HEAD Without Contrast EXAM: CT Head Without Intravenous Contrast CLINICAL HISTORY: Reason for exam: found down. TECHNIQUE: Axial computed tomography images of the head/brain without intravenous contrast. CTDI is 36.37 mGy and DLP is 624.41 mGy-cm. Automated exposure control was utilized for the study. A dose lowering technique was utilized adhering to the principles of ALARA. COMPARISON: CT Head dated 07/22/2022 FINDINGS: Brain: Volume loss with enlarged ventricles and sulci. Periventricular white matter hypoattenuation likely reflects chronic small vessel disease. Focal left temporoparietal encephalomalacia, similar to the prior. No hemorrhage. Ventricles: Enlarged left lateral ventricle temporal horn likely reflects ex vacuo dilation. Bones/joints: Unremarkable. No acute fracture. Soft tissues: Unremarkable. Sinuses: Opacified small left maxillary sinus. Mastoid air cells: Unremarkable as visualized. No mastoid effusion. Orbits: Bilateral intraocular lens replacement. IMPRESSION: No acute findings in the head/brain. Electronically signed by: Caden Hsu M.D. 06/11/23 03:02 AM Hip/Pelvis X-Ray 06/11/23 00:41 XR hip LT 2V w pelvis CLINICAL HISTORY: left hip pain s/p fall TECHNIQUE: 2 views of the left hip and single frontal view of the pelvis were obtained. Comparison: Comparison is made to left hip radiograph 10/21/2019 FINDINGS: There is no evidence of an acute fracture. Degenerative changes are seen in the hip joint. Penile implants noted. No soft tissue abnormality is seen. IMPRESSION: Degenerative changes without evidence of acute abnormality. ACT 112: Negative or not required by law. Electronically signed by: Padilla Arteaga M.D. 06/11/2023 7:[address] 06/11/23 01:36 Exam(s): CT PELVIS Without Contrast EXAM: CT Pelvis Without Intravenous Contrast CLINICAL HISTORY: Reason for exam: left hip pain s/p fall. TECHNIQUE: Axial computed tomography images of the pelvis without intravenous contrast. Automated exposure control was utilized for the study. A dose lowering technique was utilized adhering to the principles of ALARA. COMPARISON: CT abdomen pelvis dated 07/08/22 FINDINGS: Bowel: Unremarkable. No obstruction. No mucosal thickening. Appendix: No findings to suggest acute appendicitis. Intraperitoneal space: Unremarkable. No free air. No significant fluid collection. Bladder: Unremarkable. No stones. Reproductive: Penile prosthesis. Bones/joints: Avascular necrosis changes of the femoral heads similar to the prior. Acute left superior and inferior pubic rami fractures. Query extension to the acetabulum adjacent to the superior pubic ramus fracture. No dislocation. Soft tissues: Unremarkable. Vasculature: Atherosclerotic calcifications. No lower abdominal aortic aneurysm. Lymph nodes: Unremarkable. No enlarged lymph nodes. IMPRESSION: 1. Acute left superior and inferior pubic rami fractures. Query extension to the acetabulum adjacent to the superior pubic ramus fracture. 2. Avascular necrosis changes of the femoral heads similar to the prior. Electronically signed by: Caden Hsu M.D. 06/11/23 03:[address] 06/11/23 01:52 Exam(s): CT L SPINE EXAM: CT Lumbar Spine Without Intravenous Contrast CLINICAL HISTORY: Reason for exam: low back pain s/p fall. TECHNIQUE: Axial computed tomography images of the lumbar spine without intravenous contrast. Automated exposure control was utilized for the study. A dose lowering technique was utilized adhering to the principles of ALARA. COMPARISON: CT pelvis also today. FINDINGS: Vertebrae: Acute appearing L1 superior endplate compression fracture. Minimal vertebral body height loss. No retropulsion. Discs/spinal canal/neural foramina: Multilevel degenerative changes. No spinal canal stenosis. Soft tissues: Mild associated paravertebral soft tissue stranding. Other findings: Prior CT abdomen pelvis 07/08/2022. IMPRESSION: Acute appearing L1 superior endplate compression fracture. Minimal vertebral body height loss. Electronically signed by: Caden Hsu M.D. 06/11/23 03:38 AM Labs 06/11/23 06/11/23 06/11/23 01:40 01:40 01:41 WBC 4.44 L RBC 3.63 L Hgb 13.7 L Hct 37.7 L MCV 103.9 H MCH 37.7 H MCHC 36.3 H RDW Std Deviation 54.1 H RDW Coeff of Ramses 14.2 Plt Count 108 L MPV 10.7 Immature Gran % (Auto) 1.6 Neut % (Auto) 68.9 Lymph % (Auto) 16.2 [place]ois % (Auto) 11.0 Eos % (Auto) 1.6 Baso % (Auto) 0.7 Neut # (Auto) 3.06 Lymph # (Auto) 0.72 L [place] # (Auto) 0.49 Eos # (Auto) 0.07 Baso # (Auto) 0.03 Immature Gran # (Auto) 0.07 PT 15.4 H INR 1.4 H Sodium 141 Potassium 3.4 L Chloride 107 Carbon Dioxide 29 Anion Gap 5 BUN 15 Creatinine 0.74 Est Cr Clr Drug Dosing 94.5 Est GFR ( Amer) 107.6 Est GFR (Non-Af Amer) 92.8 BUN/Creatinine Ratio 20.3 H Glucose 101 H Estimat Average Glucose Hemoglobin A1c Calcium 8.4 L Phosphorus Magnesium Total Bilirubin 3.3 H AST 41 H ALT 23 Alkaline Phosphatase 99 Ammonia Total Creatine Kinase 93 Troponin I High Sens 37.2 H Total Protein 5.8 L Albumin 3.0 L Globulin 2.8 Albumin/Globulin Ratio 1.1 Urine Color Urine Appearance Urine pH Ur Specific [place] Urine Protein Urine Glucose (UA) Urine Ketones Urine Blood Urine Nitrite Urine Bilirubin Urine Urobilinogen Ur Leukocyte Esterase Urine WBC (Auto) Urine RBC (Auto) U Hyaline Cast (Auto) U Epithel Cells (Auto) Urine Bacteria (Auto) SARS-CoV-2, RNA, NAAT 06/11/23 06/11/23 06/11/23 06:56 09:57 12:17 WBC RBC Hgb Hct MCV MCH MCHC RDW Std Deviation RDW Coeff of Ramses Plt Count MPV Immature Gran % (Auto) Neut % (Auto) Lymph % (Auto) [place] % (Auto) Eos % (Auto) Baso % (Auto) Neut # (Auto) Lymph # (Auto) [place] # (Auto) Eos # (Auto) Baso # (Auto) Immature Gran # (Auto) PT INR Sodium Potassium Chloride Carbon Dioxide Anion Gap BUN Creatinine Est Cr Clr Drug Dosing Est GFR ( Amer) Est GFR (Non-Af Amer) BUN/Creatinine Ratio Glucose Estimat Average Glucose Hemoglobin A1c Calcium Phosphorus Magnesium Total Bilirubin AST ALT Alkaline Phosphatase Ammonia 76.0 H Total Creatine Kinase Troponin I High Sens 58.0 H* D 81.0 H* D Total Protein Albumin Globulin Albumin/Globulin Ratio Urine Color Urine Appearance Urine pH Ur Specific [place] Urine Protein Urine Glucose (UA) Urine Ketones Urine Blood Urine Nitrite Urine Bilirubin Urine Urobilinogen Ur Leukocyte Esterase Urine WBC (Auto) Urine RBC (Auto) U Hyaline Cast (Auto) U Epithel Cells (Auto) Urine Bacteria (Auto) SARS-CoV-2, RNA, NAAT 06/11/23 06/11/23 06/11/23 13:52 19:33 Unknown WBC RBC Hgb Hct MCV MCH MCHC RDW Std Deviation RDW Coeff of Ramses Plt Count MPV Immature Gran % (Auto) Neut % (Auto) Lymph % (Auto) [place] % (Auto) Eos % (Auto) Baso % (Auto) Neut # (Auto) Lymph # (Auto) [place] # (Auto) Eos # (Auto) Baso # (Auto) Immature Gran # (Auto) PT INR Sodium Potassium Chloride Carbon Dioxide Anion Gap BUN Creatinine Est Cr Clr Drug Dosing Est GFR ( Amer) Est GFR (Non-Af Amer) BUN/Creatinine Ratio Glucose Estimat Average Glucose Hemoglobin A1c Calcium Phosphorus Magnesium Total Bilirubin AST ALT Alkaline Phosphatase Ammonia Total Creatine Kinase Troponin I High Sens 89.5 H* Total Protein Albumin Globulin Albumin/Globulin Ratio Urine Color [place] Urine Appearance Clear Urine pH 6.0 Ur Specific [place] 1.028 Urine Protein Negative Urine Glucose (UA) Negative Urine Ketones Negative Urine Blood Trace H Urine Nitrite Positive A Urine Bilirubin 1+ H Urine Urobilinogen Negative Ur Leukocyte Esterase Trace H Urine WBC (Auto) 5-10 H Urine RBC (Auto) 5-10 H U Hyaline Cast (Auto) 5-10 H U Epithel Cells (Auto) >30 H Urine Bacteria (Auto) Negative SARS-CoV-2, RNA, NAAT NEGATIVE 06/12/23 06/12/23 06/12/23 06:16 06:16 06:16 WBC 5.21 RBC 3.36 L Hgb 12.8 L Hct 35.3 L MCV 105.1 H MCH 38.1 H MCHC 36.3 H RDW Std Deviation 55.7 H RDW Coeff of Ramses 14.4 Plt Count 96 L MPV 10.8 Immature Gran % (Auto) Neut % (Auto) Lymph % (Auto) [place] % (Auto) Eos % (Auto) Baso % (Auto) Neut # (Auto) Lymph # (Auto) [place] # (Auto) Eos # (Auto) Baso # (Auto) Immature Gran # (Auto) PT INR Sodium 140 Potassium 3.6 Chloride 108 H Carbon Dioxide 29 Anion Gap 3 BUN 18 Creatinine 0.76 Est Cr Clr Drug Dosing 92.1 Est GFR ( Amer) 106.4 Est GFR (Non-Af Amer) 91.8 BUN/Creatinine Ratio 23.7 H Glucose 108 H Estimat Average Glucose 74 Hemoglobin A1c 4.2 L Calcium 7.9 L Phosphorus 2.9 Magnesium 1.7 Total Bilirubin AST ALT Alkaline Phosphatase Ammonia Total Creatine Kinase Troponin I High Sens Total Protein Albumin Globulin Albumin/Globulin Ratio Urine Color Urine Appearance Urine pH Ur Specific [place] Urine Protein Urine Glucose (UA) Urine Ketones Urine Blood Urine Nitrite Urine Bilirubin Urine Urobilinogen Ur Leukocyte Esterase Urine WBC (Auto) Urine RBC (Auto) U Hyaline Cast (Auto) U Epithel Cells (Auto) Urine Bacteria (Auto) SARS-CoV-2, RNA, NAAT 06/13/23 06/13/23 06/13/23 06:24 06:24 12:43 WBC 4.86 RBC 3.19 L Hgb 11.9 L Hct 32.5 L MCV 101.9 H MCH 37.3 H MCHC 36.6 H RDW Std Deviation 51.9 H RDW Coeff of Ramses 13.8 Plt Count 81 L MPV 10.5 Immature Gran % (Auto) Neut % (Auto) Lymph % (Auto) [place] % (Auto) Eos % (Auto) Baso % (Auto) Neut # (Auto) Lymph # (Auto) [place] # (Auto) Eos # (Auto) Baso # (Auto) Immature Gran # (Auto) PT INR Sodium 139 138 Potassium 3.2 L 3.4 L Chloride 107 106 Carbon Dioxide 27 29 Anion Gap 5 3 BUN 18 17 Creatinine 0.74 0.69 Est Cr Clr Drug Dosing 94.5 101.4 Est GFR ( Amer) 107.6 110.7 Est GFR (Non-Af Amer) 92.8 95.5 BUN/Creatinine Ratio 24.3 H 24.6 H Glucose 97 140 H Estimat Average Glucose Hemoglobin A1c Calcium 7.6 L 7.7 L Phosphorus 3.0 Magnesium 1.6 L 2.1 Total Bilirubin AST ALT Alkaline Phosphatase Ammonia Total Creatine Kinase Troponin I High Sens Total Protein Albumin Globulin Albumin/Globulin Ratio Urine Color Urine Appearance Urine pH Ur Specific [place] Urine Protein Urine Glucose (UA) Urine Ketones Urine Blood Urine Nitrite Urine Bilirubin Urine Urobilinogen Ur Leukocyte Esterase Urine WBC (Auto) Urine RBC (Auto) U Hyaline Cast (Auto) U Epithel Cells (Auto) Urine Bacteria (Auto) SARS-CoV-2, RNA, NAAT 06/11/23 00:41 CT cervical spine wo con Stat CT head/brain wo con Stat 06/11/23 01:36 CT pelvis wo con Stat 06/11/23 01:52 CT lumbar spine wo con Stat Hospital Course (1) Compression fracture of lumbar vertebra: (2) Fracture of multiple pubic rami: Plan Wheelchair-bound 71 M with PMH of ICH, dementia, cirrhosis, AF, hypertension, COPD, and GERD, who presents to the hospital from detention for evaluation after an unwitnessed fall from her wheelchair. Admitted to the hospital for multiple fractures. Left superior, inferior pubic rami fracture -Patient found on the ground next to wheelchair. Patient was unable to provide HPI due to dementia. - Ct pelvis:Acute left superior and inferior pubic rami fractures. Avascular necrosis changes of the femoral heads similar to the prior. -Orthopedic consult: No surgery at the moment. Patient can weight bear as tolerated -His pain was controlled with tylenol for >24 hours before discharge. PT/OT evaluation: Acute care PT while admitted. Return to the [facility] and continue therapy. Lumbar (L1) vertebral compression fracture -L1 superior endplate compression fracture noted on CT L-spine with minimal vertebral body height loss, per radiology report. -Orthopedic back surgery: -TLSO brace if patient ambulate -No lifting over 5 pounds -if wheelchair, brace for pain control Pain management as above Type 2 PR due to demand ischemia -Patient denied any chest pain or SOB -Troponin 37.2 in the ED -Repeated in am: 58, 6hrs: 81 Fall -Unwitnessed. Found on the ground next to wheelchair. Presumed fall occurred during attempted transfer from wheelchair. -CT head negative for intracranial pathology. Lumbar, pelvic rami fractures, as detailed above. -Fall precautions per protocol. -PT/OT eval: as above Alcoholic cirrhosis/hyperbilirubinemia -Total bilirubin 3.3 on admission, however this appears to be stable 2/2 chronic liver disease. -ALT and Alk phos normal. AST only mildly elevated.Patient afebrile, otherwise hemodynamically stable. -Ammonia: 76.0 -Mentation at baseline. Dementia -quetiapine 100 mg nightly. -consider goal of care discussion with patient and family. Hospitalist team did speak to the daughter and she expressed that patient would have not like to have aggressive medical treatment with current state of health condition. Feeding ds -Diet modifications added as per previous CODING TECH recommendation Atrial fibrillation -Due to history of ICH, not on anticoagulation. Hypertension * Continue home lisinopril 5 mg daily. History of ICH * Continue home Keppra 500 mg twice daily. COPD * Continue scheduled Advair every 12 hours, as needed Ventolin inhaler every 6 hours. Total Time Total Time Spent Total Time Spent (In Minutes): see attending attestation Discharge Plan Discharge Items Patient Disposition: Home - Self-Care Reason For Visit: FALL Discharge Diagnosis: Left superior, inferior pubic rami fracture Lumbar (L1) vertebral compression fracture Activity: Resume your previous activity Non-emergency contact: Primary Care Provider Call non-emergency contact if: you have any medication questions Follow-up/Referrals: Carrington Smith [Primary Care Provider] - Diet: Regular Addtl Attending Provider Instructions: Wheelchair-bound 71 M with PMH of ICH, dementia, cirrhosis, AF, hypertension, COPD, and GERD, who presents to the hospital from detention for evaluation after an unwitnessed fall from her wheelchair. Admitted to the hospital for multiple fractures. Left superior, inferior pubic rami fracture -Patient found on the ground next to wheelchair. Patient is unable to provide HPI due to dementia. - Ct pelvis:Acute left superior and inferior pubic rami fractures. Avascular necrosis changes of the femoral heads similar to the prior. -Orthopedic consult: No surgery at the moment. Patient can weight bear as tolerated Pain management:: IV Tylenol 1000 mg every 12 hours. As needed Dilaudid for uncontrolled pain during the stay -S/p IV fentanyl 50 mcg in the ED. PT/OT evaluation: Acute care PT while admitted. Return to the [facility] and continue therapy. Lumbar (L1) vertebral compression fracture -L1 superior endplate compression fracture noted on CT L-spine with minimal vertebral body height loss, per radiology report. -Orthopedic back surgery: -TLSO brace if patient ambulate -No lifting over 5 pounds -if wheelchair, brace for pain control Pain management as above Type 2 PR due to demand ischemia -Patient denied any chest pain or SOB -Troponin 37.2 in the ED -Repeated in am: 58, 6hrs: 81 Fall -Unwitnessed. Found on the ground next to wheelchair. Presumed fall occurred during attempted transfer from wheelchair. -CT head negative for intracranial pathology. Lumbar, pelvic rami fractures, as detailed above. -Fall precautions per protocol. -PT/OT eval: as above Alcoholic cirrhosis/hyperbilirubinemia -Total bilirubin 3.3 on admission, however this appears to be stable 2/2 chronic liver disease. -ALT within normal limits. AST only mildly elevated. Alk phos normal. Patient afebrile, otherwise hemodynamically stable. -Unable to calculate MELD score: 15 (Previous admission: 18) -Ammonia: 76.0 Dementia -Sent discharge summary noted quetiapine 25 mg every morning, 50 nightly patient now takes 100 mg nightly. -consider goal of care discussion with patient and family Feeding ds -Diet modifications added as per previous CODING TECH recommendation Hypoxic episode -resolved Atrial fibrillation -Due to history of ICH, not on anticoagulation. Hypertension * Continue home lisinopril 5 mg daily. History of ICH * Continue home Keppra 500 mg twice daily. COPD * Continue scheduled Advair every 12 hours, as needed Ventolin inhaler every 6 hours. Pending Studies at Discharge: No Stand-Alone Forms: [employer], Smoking Cessation Medications and DC Order Prescriptions: Continued multivitamin [Daily-Verena] Tablet 1 tab PO DAILY furosemide 40 mg tablet 40 mg PO BID fluticasone propion-salmeterol [Advair Diskus] 250-50 mcg/dose Blister With Device 1 inh INHALATION Q12H acetaminophen [Tylenol] 325 mg Tablet 650 mg PO Q6 PRN (Reason: .Temp > 101& pain 1-5) polyvinyl alcohol 1.4 % Drops 1 drp OPB Q6 PRN (Reason: Dry Eyes) melatonin 3 mg Tablet 6 mg PO HS tramadol 50 mg Tablet 50 mg PO Q4 PRN (Reason: Pain) potassium chloride 20 mEq/15 mL Liquid 20 meq PO Q12 lisinopril 5 mg tablet 5 mg PO DAILY albuterol sulfate [Ventolin HFA] 90 mcg/actuation Hfa Aerosol Inhaler 1 puff INHALATION Q6H PRN (Reason: Shortness Of Breath Or Wheezing) escitalopram oxalate [Lexapro] 10 mg Tablet 10 mg PO DAILY levetiracetam 100 mg/mL Solution 500 mg PO Q12 lactulose [Enulose] 10 gram/15 mL Solution 60 ml PO TID quetiapine 50 mg Tablet 100 mg PO HS cholecalciferol (vitamin D3) [Vitamin D3] 50 mcg (2,000 unit) Tablet 50 mcg PO DAILY Eucerin Cream 1 applic TOPICAL [facility] Discharge Orders: Discharge Order (Routine); Ordered 06/13/23 Ordered By: Edwardo Frost Admission Data Admit Date/Time: 06/11/23 03:22 Attending Provider: Emily Koroma Admit Provider: Juanjose Mancini Primary Care Provider: Carrington Smith Other Providers: Tamanna Nguyen ; Anthony Nguyen ; Miles Patino Other Interventions: Discharge Summary Assessment (RN) Last Done: 06/13/23 16:21 Supervising Physician Co-Signing Physician Notes Resident Physician Supervision Note: I independently interviewed and examined the patient and verified the lebron history and physical, reviewed labs and image studies and agree with resident findings and care plan. Resident Activity Tracking Resident Involvement: Resident Care Provided Care Provided: Adult Hospital Medicine
[2023-06-13 16:27] VITALS: BP 118/68; PULSE 70
== END 2023-06-13 16:45 | disposition home or self-care (01) | DRG 535 ==
LOC: ED 00:26 → EDINP 03:22 → SUATTDRO 03:22 → 2N 05:04